=== PATIENT | male | born 1955 | race Caucasian/White ===

== ENCOUNTER 2016-08-31 14:29 | Inpatient (IN) | payer MEDICAID ==
[~2016-08-31] VITALS: Ht 185.4 cm; Wt 127.0 kg
[~2016-08-31 14:29] MED LIST: ASPI81TA3 PO; BUDE6HFA INHALATION; CHOL400T10 PO; CYAN100T PO; ESCI10TA PO; ETOMIDATE 20 MG INJ ONE; GUAI-637 PO; HYDR-3498 PO; LEVO50TA83 PO; METO25TA7 PO; NAPR-260 PO; Promethazine/Codeine Syp PO; ZOLP5TAB PO
[2016-08-31] MEDS ORDERED: ROCURONIUM 50 MG INJ IV STA (14:34)
[2016-08-31] MEDS ORDERED: PROPOFOL 100 ML IV STA (14:34)
[2016-08-31] MEDS ORDERED: SOD CHLORIDE 0.9% 1,000 ML IV STA ×3 (14:34)
[2016-08-31] MEDS ORDERED: ETOMIDATE 20 MG INJ IV STA (14:34)
[2016-08-31] MEDS ORDERED: CEFEPIME 2GM/50 ML (PMX) 50 ML IVPB STA (14:34)
[2016-08-31] MEDS ORDERED: HYDROmorphONE 1 MG/ML SYG IV ONE (15:00)
[2016-08-31] MEDS ORDERED: VANCOMYCIN 1 GM (PMX) 250 ML IVPB ONE (15:00)
[2016-08-31 15:13] LABS: ADD SCAN DIFF NO
[2016-08-31 15:19] LABS: ABNORMAL IP MESSAGE 1; HEMATOCRIT 34.1 % (42.0-52.0); HEMOGLOBIN 10.9 g/dl (14.0-18.0); MEAN PLATELET VOLUME 10.2 fl (7.4-10.4); PLATELET COUNT 81 10^3/UL (140-415); RED BLOOD COUNT 3.41 10^6/ul (4.70-6.10); RED CELL DISTRIBUTION WIDTH 14.9 % (11.5-14.5); WHITE BLOOD COUNT 3.7 10^3/ul (4.8-10.8)
--- NOTE | 2016-08-31 15:22 | RADRPT ---
PROCEDURE: Chest x-ray CLINICAL INDICATION: Shortness of breath TECHNIQUE: Chest single view COMPARISON: 02/17/2016 FINDINGS: There is endotracheal tube which terminates 3 cm above the brett. Heart is normal in size. The pu lmonary vessels are normal in caliber. There is persistent to dense area of opacification in the ri ght upper lung/right lung apex. This could represent loculated fluid, fibrosis with pleural thicken ing; however underlying mass in this region is not excluded. Lungs otherwise clear. There is volum e loss of the right lung with elevation right hemidiaphragm. The costophrenic angles are sharp. Bert ny thorax is unremarkable. IMPRESSION: 1. Interval placement of endotracheal tube which terminates 3 cm above the brett. 2. Persistent dense opacity in the right lung apex. This may represent pleural thickening, loculat ed pleural fluid, or underlying mass with postobstructive component. Consider chest CT for further evaluation. 3. No acute infiltrates RPTAT: HH .Bret Montemayor MD, MD Date Time Electronically viewed and signed by .Bret Montemayor MD, on 08/31/2016 15:21 .W/
[2016-08-31 15:26] LABS: INR 1.08; PT RATIO 1.1
[2016-08-31 15:27] LABS: PARTIAL THROMBOPLASTIN TIME 24.8 Sec (25.0-35.0)
[2016-08-31 15:30] LABS: ALBUMIN 3.8 g/dl (3.3-4.9); ALBUMIN/GLOBULIN RATIO 1.05; BILIRUBIN,INDIRECT 0.2 mg/dl (0-1.1); BILIRUBIN,TOTAL 0.2 mg/dl (0.2-1.3); CALCIUM 8.7 mg/dl (8.4-10.2); CREATININE 0.97 mg/dl (0.61-1.24); TOTAL PROTEIN 7.4 g/dl (6.1-8.1)
[2016-08-31] MEDS ORDERED: LIDOCAINE 1% (MDV) 20 ML INJ SC ONE ×2 (15:30→16:30)
[2016-08-31] MEDS: PANTOPRAZOLE 40 MG INJ IV SCH (15:38)
[2016-08-31 15:41] LABS: TROPONIN-I 0.011 ng/ml (0.00-0.12)
[2016-08-31 15:46] LABS: LYMPHOCYTES # 0.6 10^3/ul (0.8-2.9)
[2016-08-31 15:48] LABS: ANISOCYTOSIS 1+; HYPOCHROMASIA 1+; PLATELET ESTIMATE PLT APPEAR DECREASED
[2016-08-31] MEDS ORDERED: TRAZ50TA18 PO (15:50)
[2016-08-31] MEDS ORDERED: LEVO75TA5 PO (15:51)
[2016-08-31] MEDS ORDERED: ESCI10TA48 PO (15:51)
[2016-08-31] MEDS ORDERED: LEVO50TA74 PO (15:51)
[2016-08-31] MEDS ORDERED: ATOR20TA38 PO (15:52)
[2016-08-31] MEDS ORDERED: ESOM40CA PO (15:52)
[2016-08-31] MEDS ORDERED: DOCU100C26 PO (15:53)
[2016-08-31] MEDS ORDERED: SENN-53 PO (15:53)
[2016-08-31] MEDS ORDERED: ASPI-664 PO (15:54)
[2016-08-31] MEDS ORDERED: VORI200T9 PO (15:55)
[2016-08-31] MEDS ORDERED: METO-448 PO (15:55)
[2016-08-31] MEDS ORDERED: SOD CHLORIDE 0.9% 100 ML ONE (16:16)
[2016-08-31] MEDS ORDERED: IOHEXOL 100 ML ONE (16:16)
[2016-08-31] MEDS ORDERED: IOHEXOL 350MG/ML 50 ML BTL ONE (16:17)
[2016-08-31 16:22] LABS: ADD UMIC YES; URINE BILIRUBIN (Dip) NEGATIVE (NEGATIVE); URINE BLOOD (Dip) 1+ (NEGATIVE); URINE COLOR LT. YELLOW (YELLOW); URINE GLUCOSE (Dip) NEGATIVE (NEGATIVE); URINE KETONES (Dip) NEGATIVE (NEGATIVE); URINE LEUKOCYTE ESTERASE (Dip) NEGATIVE (NEGATIVE); URINE NITRITE (Dip) NEGATIVE (NEGATIVE); URINE TOTAL PROTEIN (Dip) NEGATIVE (NEGATIVE); URINE UROBILINOGEN (Dip) 0.2 E.U./dL (0.1-1.0)
[2016-08-31 16:32] LABS: BACTERIA,URINE FEW; URINE RBCS 0-2 /HPF (0)
--- NOTE | 2016-08-31 16:37 | ERA ---
ER Documentation Chief Complaint Date/Time DATE: 08/31/16 TIME: 16:33 Chief Complaint BIB RA FOR EVAL OF SOB. PT ON CPAP ON ARRIVAL. HPI Patient is a 60-year-old male with lung cancer who presents with shortness of breath. The patient was brought in by ambulance. He was 59% on room air at his chemotherapy infusion center. He was placed on CPAP therapy by paramedics but there was no improvement in his respiratory status. Please note the history and physical exam is limited secondary to the patient's shortness of breath and mental status at this time. ROS All systems reviewed and are negative except as per history of present illness. Medications Home Meds Reported Medications Metoprolol Tartrate* (Lopressor*) 25 Mg Tab, 25 MG PO BID, #60 TAB 08/31/16 Voriconazole* (Voriconazole*) 200 Mg Tablet, 200 MG PO BID, TAB 08/31/16 Aspirin* (Aspirin* EC) 81 Mg Tablet.dr, 81 MG PO DAILY, TAB 08/31/16 Docusate Sodium* (Doc-Q-Lace*) 100 Mg Capsule, 100 MG PO BID Y for CONSTIPATION , CAP 08/31/16 Sennosides* (Senna Lax*) 8.6 Mg Tablet, 1 TAB PO Q12H Y for CONSTIPATION, TAB 08/31/16 Esomeprazole Mag Trihydrate (Nexium) 40 Mg Capsule.dr, 40 MG PO DAILY, #30 CAP 08/31/16 Atorvastatin Calcium* (Atorvastatin Calcium*) 20 Mg Tablet, 20 MG PO QHS, #30 TAB 08/31/16 Levothyroxine Sodium* (Levothyroxine Sodium*) 75 Mcg Tablet, 75 MCG PO BEFORE BREAKFAST, #30 TAB 08/31/16 Levothyroxine Sodium* (Levothyroxine Sodium*) 50 Mcg Tablet, 50 MCG PO BEFORE BREAKFAST, #30 TAB 08/31/16 Escitalopram Oxalate* (Escitalopram Oxalate*) 10 Mg Tablet, 10 MG PO DAILY, #30 TAB 08/31/16 Trazodone Hcl* (Trazodone Hcl*) 50 Mg Tablet, 50 MG PO QHS, #30 TAB 08/31/16 Discontinued Reported Medications Guaifenesin* (Robitussin*) 100 Mg/5 Ml Syrup, 200 MG PO Q4H Y for COUGH, ML 02/17/16 Budesonide-Formoterol Fumarate* (Symbicort*) 160-4.5 Hfa.aer.ad, 2 PUFF INHALATION BID, #1 EACH 02/17/16 Cholecalciferol* (Vitamin D*) 400 Unit Tablet, 400 UNIT PO DAILY, TAB 02/17/16 Cyanocobalamin* (Vitamin B-12*) 100 Mcg Tablet, 100 MCG PO DAILY, TAB 02/17/16 Aspirin* (Aspirin* Chew) 81 Mg Tab.chew, 81 MG PO DAILY, TAB.CHEW 02/17/16 Metoprolol Succinate* (Toprol XL*) 25 Mg Tab.sr.24h, 25 MG PO DAILY, #30 TAB 02/17/16 Zolpidem Tartrate* (Ambien*) 5 Mg Tablet, 5 MG PO QHS Y for INSOMNIA, #30 TAB 02/17/16 Naproxen* (Naprosyn*) 500 Mg Tablet, 500 MG PO BID Y for PAIN AND/OR INFLAMMATION, TAB 02/17/16 Escitalopram Oxalate* (Lexapro*) 10 Mg Tablet, 10 MG PO DAILY, #30 TAB 02/17/16 Discontinued Scripts [Promethazine/Codeine Syp] 5 ML SYRUP No Conflict Check, 10 ML PO TID, #100 ML Prov:LUBA EARLY 02/23/16 Hydrocodone Bit-Acetaminophen (Hydrocodone Bit-APAP) 5-325MG Tablet, 1 TAB PO Q4H Y for PAIN LEVEL 4-7, #30 TAB Prov:LUBA EARLY 02/23/16 Levothyroxine Sodium* (Synthroid*) 50 Mcg Tablet, 50 MCG PO DAILY@06 for 30 Days , TAB Prov:LUBA EARLY 02/23/16 Allergies Allergies: Coded Allergies: No Known Allergy (Unverified , 08/31/16) PMhx/Soc History of Surgery: Yes (right midle finger partial amputation 1985, gallbladder removal 1996, nose ) Anesthesia Reaction: No Hx Neurological Disorder: No Hx Respiratory Disorders: Yes (lung ca, pna) Hx Cardiac Disorders: Yes (irregular heart beat.) Hx Psychiatric Problems: Yes (anxiety ) Hx Miscellaneous Medical Probl: No Hx Alcohol Use: No Hx Substance Use: No Hx Tobacco Use: Yes Smoking Status: Unknown if ever smoked FmHx Unable to obtain Physical Exam Vitals Vital Signs Date Time Temp Pulse Resp B/P Pulse Ox O2 Delivery O2 Flow Rate FiO2 08/31/16 16:21 78 20 108/80 100 Mechanical Ventilator 08/31/16 15:56 88 26 160/110 100 Mechanical Ventilator 08/31/16 15:11 91 20 179/123 100 Mechanical Ventilator 08/31/16 14:45 113 30 181/109 97 08/31/16 14:40 91 20 98 100 Physical Exam Const: Severe respiratory distress Head: Atraumatic Eyes: Normal Conjunctiva ENT: Normal External Ears, Nose and Mouth. Neck: Full range of motion..~ No meningismus. Resp: Decreased breath sounds bilaterally, tachypnea and accessory muscle use Cardio: Tachycardic rate without murmur Abd: Soft, non tender, non distended. Normal bowel sounds Skin: Diaphoresis Back: No midline or flank tenderness Ext: No cyanosis, or edema Neur: Awake but altered Result Diagram: 08/31/16 1500 08/31/16 1500 Results 24 hrs Laboratory Tests Test 08/31/16 15:00 08/31/16 15:50 White Blood Count 3.710^3/ul Red Blood Count 3.4110^6/ul Hemoglobin 10.9g/dl Hematocrit 34.1% Mean Corpuscular Volume 100.0fl Mean Corpuscular Hemoglobin 32.0pg Mean Corpuscular Hemoglobin Concent 32.0g/dl Red Cell Distribution Width 14.9% Platelet Count 8110^3/UL Mean Platelet Volume 10.2fl Neutrophils % 82.0% Band Neutrophils % 2.0% Lymphocytes % 16.0% Neutrophils # 3.010^3/ul Lymphocytes # 0.610^3/ul Platelet Estimate PLT APPEAR DECREASED Hypochromasia 1+ Anisocytosis 1+ Prothrombin Time 14.0Sec Prothrombin Time Ratio 1.1 INR International Normalized Ratio 1.08 Activated Partial Thromboplast Time 24.8Sec Sodium Level 140mmol/L Potassium Level 4.0mmol/L Chloride Level 104mmol/L Carbon Dioxide Level 24mmol/L Anion Gap 16 Blood Urea Nitrogen 16mg/dl Creatinine 0.97mg/dl Glucose Level 155mg/dl Lactic Acid Level 2.4mmol/L Calcium Level 8.7mg/dl Total Bilirubin 0.2mg/dl Direct Bilirubin 0.00mg/dl Indirect Bilirubin 0.2mg/dl Aspartate Amino Transf (AST/SGOT) 22IU/L Alanine Aminotransferase (ALT/SGPT) 21IU/L Alkaline Phosphatase 116IU/L Troponin I 0.011ng/ml Total Protein 7.4g/dl Albumin 3.8g/dl Globulin 3.60g/dl Albumin/Globulin Ratio 1.05 Urine Color LT. YELLOW Urine Clarity CLEAR Urine pH 6.0 Urine Specific [place] <=1.005 Urine Ketones NEGATIVE Urine Nitrite NEGATIVE Urine Bilirubin NEGATIVE Urine Urobilinogen 0.2 E.U./dL Urine Leukocyte Esterase NEGATIVE Urine Microscopic RBC 0-2/HPF Urine Microscopic WBC NONE SEEN/HPF Urine Epithelial Cells OCCASIONAL Urine Bacteria FEW Urine Hemoglobin 1+ Urine Glucose NEGATIVE% Urine Total Protein NEGATIVE Current Medications Medications (Trade) Dose Ordered Sig/Michael Route PRN Reason Start Time Stop Time Status Last Admin Dose Admin Cefepime HCl 50 ml @ 100 mls/hr ONCE STAT IVPB 08/31/16 14:34 08/31/16 15:03 DC 08/31/16 15:38 Vancomycin HCl 250 ml @ 125 mls/hr ONCE ONCE IVPB 08/31/16 15:00 08/31/16 16:59 Sodium Chloride (NS) 1,000 ml @ 1,000 mls/hr Q1H STAT IV 08/31/16 14:34 08/31/16 15:33 DC 08/31/16 15:01 Rocuronium [place] (Zemuron) 70 mg ONCE STAT IV 08/31/16 14:34 08/31/16 14:37 DC 08/31/16 15:02 Etomidate (Amidate) 20 mg ONCE STAT IV 08/31/16 14:34 08/31/16 14:37 DC 08/31/16 15:02 Hydromorphone HCl 1 mg 1 mg ONCE ONCE IV 08/31/16 15:00 08/31/16 15:01 DC Propofol 100 ml @ 0 mls/hr ONCE STAT IV 08/31/16 14:34 08/31/16 14:37 DC 08/31/16 15:00 Sodium Chloride 1,000 ml @ 1,000 mls/hr Q1H STAT IV 08/31/16 14:34 08/31/16 15:33 DC 08/31/16 15:34 Sodium Chloride (NS) 1,000 ml @ 1,000 mls/hr Q1H STAT IV 08/31/16 14:34 08/31/16 15:33 DC 08/31/16 15:34 Pantoprazole (Protonix Iv) 40 mg DAILY IV 08/31/16 15:00 08/31/16 15:38 Lidocaine (Xylocaine 1% (Mdv) 20 ml) 20 ml ONCE ONCE SC 08/31/16 15:30 08/31/16 15:31 DC Lidocaine (Xylocaine 1% (Mdv) 20 ml) 20 ml ONCE ONCE SC 08/31/16 16:30 08/31/16 16:31 DC IV Flush 10 ml 10 ml STK-MED ONCE .ROUTE 08/31/16 16:16 08/31/16 16:17 DC Sodium Chloride 100 ml @ ud STK-MED ONCE .ROUTE 08/31/16 16:16 08/31/16 16:17 DC Iohexol (Omnipaque) 100 ml @ ud STK-MED ONCE .ROUTE 08/31/16 16:16 08/31/16 16:17 DC Iohexol (Omnipaque 350mg/ ml) 50 ml STK-MED ONCE .ROUTE 08/31/16 16:17 08/31/16 16:18 DC Procedures/MDM EKG read by me: Rate/Rhythm: Sinus tachycardia Intervals: Normal Impression: Sinus tachycardia without evidence of ischemia Chest X-ray 1V Interpreted by me: Soft Tissue: No acute abnormalities Bones: No acute abnormalities Mediastinum/Cardiac Silhouette/Lungs: PNA Admit MDM: Patient's infectious symptoms have not stabilized and the patient is at risk of rapid decompensation. The patient will be admitted for careful hydration, antibiotic therapy, and infectious source control. Severe Sepsis criteria: Infectious source: Pneumonia End organ damage indicated by: Lactate greater than 2 Sepsis Management: Time of recognition of sepsis: 15:00 Within 3 hours of recognition: Blood cultures x 2 before broad-spectrum antibiotics: Yes 30 ml/kg NS bolus Completed Initial lactate 2.4 Repeat lactate pending Time of recognition of septic shock: 16:35 Septic Shock Assessment: Any lactic acid > 4.0 No Persistent hypotension (SBP < 90 or 40 mmHg drop, MAP < 65) despite 30 mL/kg IV fluid bolus No Volume Re-assessment for Septic Shock (post 30 ml/kg bolus): Temp 98.6, BP 108/80, HR 78, RR 20, Pox 100% on a ventilator Heart tachycardic rate Lungs No crackles Skin Warm & dry Cap Refill Less than 2 seconds Peripheral pulses Radially present Persistent Hypotension Treatment: Comfort care No Central line PICC line placed Vasopressor started norepinephrine I considered further perfusion assessment with CVP measurement, SCVO2, bedside ultrasound volume assessment, passive leg raise, trial of further fluid bolus. And proceeded with 30 ml/kg fluid bolus of NSS, broad spectrum antibiotics, and admission. Accepting Care Team Current data and ongoing care discussed. Admitting Physician: Dr. Lincoln is Dr. Scanlon is the patient's primary doctor and requested Dr. Lincoln Workforce Staffing Advisor(s): None Outstanding Data: Culture results and repeat lactic acid Critical Care: Critical care time 35 minutes excluding all billable procedures Emergent fluid management while maintaining close respiratory support. Provision of immediate and broad-spectrum antibiotic therapy. Simultaneous assessment for possible sources in order to direct targeted therapy. Consideration for invasive and chemical support to prevent cardiopulmonary collapse. Departure Diagnosis: Primary Impression: Respiratory failure Qualified Code: J96.00 - Acute respiratory failure, unspecified whether with hypoxia or hypercapnia Additional Impressions: Shortness of breath Severe sepsis Pneumonia Qualified Code: J18.9 - Pneumonia due to infectious organism, unspecified laterality, unspecified part of lung Condition: Critical SUNNY TSOCANO MD Aug 31, 2016 16:37
[2016-08-31] MEDS ORDERED: NORepinephrine 8MG/250 ML (PMX 250 ML IV STA (17:21)
--- NOTE | 2016-08-31 18:29 | RADRPT ---
PROCEDURE: XR Chest. CLINICAL INDICATION: Line placement TECHNIQUE: Single frontal chest x-ray. COMPARISON: 08/31/2016 FINDINGS: There is new left PICC line with tip at the level of the junction of SVC and right atrium. Endotrac heal tube tip is at the level of the aortic knob, above the brett. Heart is normal size. There is redemonstrated elevated right hemidiaphragm with increased basilar and perihilar consolidation. Th ere is unchanged right apical pleural fluid versus thickening. Left lung is clear. There is no pne umothorax. Degenerative changes of the thoracic spine are present. IMPRESSION: Left PICC line with tip at the junction of SVC and right atrium. Elevated right hemidiaphragm. Int erval increased right perihilar and basilar consolidation. Otherwise no change. RPTAT: HMVK .César Love MD, MD Date Time Electronically viewed and signed by .César Love MD, MD on 08/31/2016 18:29 .K/
[2016-08-31 19:14] LABS: AADO2 Arterial 139.2 mmHg (7.0-24.0); Arterial Base Excess 0.8 mmol/L (-3.0-3); Arterial COHb 0.2 % (0.0-3.0); Arterial Fraction of Oxyhgb 98.9 % (93.0-99.0); Arterial HCO3 24.9 mmol/L (22.0-26.0); Arterial MetHb 0.4 % (0.0-1.5); Arterial Total Hemglobin 10.5 g/dl (12.0-18.0); Blood Gas Mean Airway Pressure 13; MODE VENT - AC
--- NOTE | 2016-08-31 20:46 | RADRPT ---
PROCEDURE: CTA Chest. CLINICAL INDICATION: Cancer, chest , rule out pulmonary embolism. TECHNIQUE: Direct spiral 1.25 mm axial sections were obtained from the thoracic inlet to the upper abdomen with the use of 100 cc of Isovue 370 nonionic intravenous contrast material. Axial MIP, cor onal, and sagittal reformations were obtained. The images were reviewed on a PACS workstation. CTDIv ol: 12.68, 20.00 mGy. DLP: 724 point mGy-cm. One or more of the following dose reduction techniques were used: - Automated exposure control. - Adjustment of the mA and/or kV according to patient size. - Use of iterative reconstruction technique. COMPARISON: None. FINDINGS: No pulmonary embolism is identified, however evaluation for subsegmental emboli is limited by respir atory motion. The main pulmonary artery is normal in caliber. There is no aortic aneurysm. The hear t is normal in size. There is no pericardial effusion. There is rightward shift of mediastinum. A l eft upper extremity PICC terminates at the superior cavoatrial junction. An endotracheal tube terminates in the thoracic trachea. The right middle lobe bronchus is partially occluded. There is extensive right lower lobe consolidation and cavitation. The right middle lobe is also completely consolidated. Perihilar consolidation is noted in the right lower lobe. There ar e atelectatic changes in the posterior right lower lobe. Mild atelectatic changes are also noted in the left lower lobe. There is no pleural effusion or pneumothorax. No suspicious thyroid lesion is seen. Confluent soft tissue density is seen around the distal trach ea and proximal mainstem bronchi, likely metastatic lymphadenopathy. The patient is status post cholecystectomy. There is no suspicious osseous lesion. IMPRESSION: 1. No pulmonary embolism is identified, however evaluation for subsegmental emboli is limited by res piratory motion. 2. Extensive right lung consolidation with right upper lobe cavitation and rightward shift of the m ediastinum, likely representing the patient's known lung cancer. 3. Partial occlusion of the right middle lobe bronchus, possibly due to neoplasm or secretions. 4. Confluent soft tissue density around the distal trachea and proximal mainstem bronchi, likely me tastatic lymphadenopathy. RPTAT: HTAR .Adilson Lawton MD, MD Date Time Electronically viewed and signed by .Adilson Lawton MD, MD on 08/31/2016 20:46 .R/
[2016-08-31] MEDS ORDERED: PROPOFOL 100 ML ONE (23:04)
[2016-09-01] VITALS (17 sets, daily range): BP systolic 102–149; BP diastolic 69–107; PULSE 71–79; RESP 11–20; TEMP 98.3; Ht 185.4 cm; Wt 127.0 kg
[2016-09-01] MEDS ORDERED: PROPOFOL 100 ML ONE ×7 (02:14→19:18)
[2016-09-01 06:00] LABS: ADD SCAN DIFF NO
[2016-09-01 06:18] LABS: ABNORMAL IP MESSAGE 1; HEMOGLOBIN 9.9 g/dl (14.0-18.0); LYMPHOCYTES # 0.4 10^3/ul (0.8-2.9); LYMPHOCYTES % 9.7 % (15.0-51.0); MEAN CORPUSCULAR HEMOGLOBIN 30.8 pg (29.0-33.0); MEAN CORPUSCULAR HGB CONC 30.9 g/dl (32.0-37.0); MEAN CORPUSCULAR VOLUME 99.7 fl (82.0-101.0); MEAN PLATELET VOLUME 11.2 fl (7.4-10.4); MONOCYTE # 0.1 10^3/ul (0.3-0.9); MONOCYTES % 2.5 % (0.0-11.0); NEUTROPHIL # 3.8 10^3/ul (1.6-7.5); NEUTROPHILS % 87.6 % (39.0-77.0); PLATELET COUNT 65 10^3/UL (140-415); RED BLOOD COUNT 3.21 10^6/ul (4.70-6.10); RED CELL DISTRIBUTION WIDTH 14.9 % (11.5-14.5); WHITE BLOOD COUNT 4.4 10^3/ul (4.8-10.8)
[2016-09-01 06:42] LABS: POTASSIUM 4.2 mmol/L (3.5-5.1)
[2016-09-01 06:44] LABS: CREATININE 0.83 mg/dl (0.61-1.24)
[2016-09-01 06:45] LABS: CALCIUM 8.6 mg/dl (8.4-10.2)
--- NOTE | 2016-09-01 07:08 | HP ---
Date/Time of Note Date/Time of Note DATE: 09/01/16 TIME: 06:55 Assessment/Plan VTE Prophylaxis VTE Prophylaxis Intervention: SCD's Lines/Catheters IV [facility]ter Type (from [facility] PICC Line Urinary Cath still in place: Yes Assessment/Plan Assessment/Plan Acute respiratory failure, unspecified whether with hypoxia or hypercapnia - sp intubation - admit to icu - pulmonary consult- Dr Soares notified - will resume po meds when stable for po Shortness of breath- sec to above-none at present Severe sepsis- Vanco, cefepime - fu c/s Pneumonia Hx Lung cancer - ncology consult- Dr Hollingsworth notified. dw dr Lincoln HPI/ROS Admit Date/Time Admit Date/Time Hx of Present Illness BIB RA FOR EVAL OF SOB. PT ON CPAP ON ARRIVAL. HPI- atient seen at 1900 08/31/16 Patient is a 60-year-old male with lung cancer who presents with shortness of breath. The patient was brought in by ambulance. He was 59% on room air at his chemotherapy infusion center. He was placed on CPAP therapy by paramedics but there was no improvement in his respiratory status. Please note the history and physical exam is limited secondary to the patient's shortness of breath and mental status at this time. ROS All systems reviewed and are negative except as per history of present illness. Medications Home Meds Reported Medications Metoprolol Tartrate* (Lopressor*) 25 Mg Tab, 25 MG PO BID, #60 TAB 08/31/16 Voriconazole* (Voriconazole*) 200 Mg Tablet, 200 MG PO BID, TAB 08/31/16 Aspirin* (Aspirin* EC) 81 Mg Tablet.dr, 81 MG PO DAILY, TAB 08/31/16 Docusate Sodium* (Doc-Q-Lace*) 100 Mg Capsule, 100 MG PO BID Y for CONSTIPATION , CAP 08/31/16 Sennosides* (Senna Lax*) 8.6 Mg Tablet, 1 TAB PO Q12H Y for CONSTIPATION, TAB 08/31/16 Esomeprazole Mag Trihydrate (Nexium) 40 Mg Capsule.dr, 40 MG PO DAILY, #30 CAP 08/31/16 Atorvastatin Calcium* (Atorvastatin Calcium*) 20 Mg Tablet, 20 MG PO QHS, #30 TAB 08/31/16 Levothyroxine Sodium* (Levothyroxine Sodium*) 75 Mcg Tablet, 75 MCG PO BEFORE BREAKFAST, #30 TAB 08/31/16 Levothyroxine Sodium* (Levothyroxine Sodium*) 50 Mcg Tablet, 50 MCG PO BEFORE BREAKFAST, #30 TAB 08/31/16 Escitalopram Oxalate* (Escitalopram Oxalate*) 10 Mg Tablet, 10 MG PO DAILY, #30 TAB 08/31/16 Trazodone Hcl* (Trazodone Hcl*) 50 Mg Tablet, 50 MG PO QHS, #30 TAB 08/31/16 Discontinued Reported Medications Guaifenesin* (Robitussin*) 100 Mg/5 Ml Syrup, 200 MG PO Q4H Y for COUGH, ML 02/17/16 Budesonide-Formoterol Fumarate* (Symbicort*) 160-4.5 Hfa.aer.ad, 2 PUFF INHALATION BID, #1 EACH 02/17/16 Cholecalciferol* (Vitamin D*) 400 Unit Tablet, 400 UNIT PO DAILY, TAB 02/17/16 Cyanocobalamin* (Vitamin B-12*) 100 Mcg Tablet, 100 MCG PO DAILY, TAB 02/17/16 Aspirin* (Aspirin* Chew) 81 Mg Tab.chew, 81 MG PO DAILY, TAB.CHEW 02/17/16 Metoprolol Succinate* (Toprol XL*) 25 Mg Tab.sr.24h, 25 MG PO DAILY, #30 TAB 02/17/16 Zolpidem Tartrate* (Ambien*) 5 Mg Tablet, 5 MG PO QHS Y for INSOMNIA, #30 TAB 02/17/16 Naproxen* (Naprosyn*) 500 Mg Tablet, 500 MG PO BID Y for PAIN AND/OR INFLAMMATION, TAB 02/17/16 Escitalopram Oxalate* (Lexapro*) 10 Mg Tablet, 10 MG PO DAILY, #30 TAB 02/17/16 Discontinued Scripts [Promethazine/Codeine Syp] 5 ML SYRUP No Conflict Check, 10 ML PO TID, #100 ML Prov:LUBA EARLY 02/23/16 Hydrocodone Bit-Acetaminophen (Hydrocodone Bit-APAP) 5-325MG Tablet, 1 TAB PO Q4H Y for PAIN LEVEL 4-7, #30 TAB Prov:LUBA EARLY 02/23/16 Levothyroxine Sodium* (Synthroid*) 50 Mcg Tablet, 50 MCG PO DAILY@06 for 30 Days , TAB Prov:LUBA EARLY 02/23/16 Allergies Allergies: Coded Allergies: No Known Allergy (Unverified , 08/31/16) ROS Subjective hx not possible: pt non-verbal, other (needs IVF/O2 ) PMH/Family/Social Past Medical History PMhx/Soc History of Surgery: Yes (right midle finger partial amputation 1985, gallbladder removal 1996, nose ) Anesthesia Reaction: No Hx Neurological Disorder: No Hx Respiratory Disorders: Yes (lung ca, pna) Hx Cardiac Disorders: Yes (irregular heart beat.) Hx Psychiatric Problems: Yes (anxiety ) Hx Miscellaneous Medical Probl: No Hx Alcohol Use: No Hx Substance Use: No Hx Tobacco Use: Yes Smoking Status: Unknown if ever smoked FmHx Unable to obtain Social History Smoking Status: Unknown if ever smoked Exam/Review of Systems Vital Signs Vitals Vital Signs Date Time Temp Pulse Resp B/P Pulse Ox O2 Delivery O2 Flow Rate FiO2 09/01/16 06:23 20 129/90 98 Mechanical Ventilator 09/01/16 05:50 70 09/01/16 05:10 30 09/01/16 03:00 97.8 Intake and Output 08/31/16 08/31/16 09/01/16 15:00 23:00 07:00 Intake Total 2300 ml Output Total 2500 ml Balance 2300 ml -2500 ml Exam Constitutional: frail, well developed Eyes: nl sclera ENMT: nl external ears & nose Neck: non-tender Respiratory: diminished breath sounds Cardiovascular: nl pulses Gastrointestinal: non-tender, other (obese), soft Musculoskeletal: nl extremities to inspection Extremities: normal pulses Neurological: lethargic, unresponsive Skin: other Lymph: nontender Labs Result Diagram: 09/01/16 0525 08/31/16 1500 Medications Medications Current Medications Pantoprazole (Protonix Iv) 40 mg DAILY IV Last administered on 08/31/16t 15:38; Admin Dose 40 MG; Start 08/31/16 at 15:00 IV Flush (NS 10 ml) 10 ml PRN PRN IV IV PROTOCOL; Start 08/31/16 at 18:30 Procedures Procedures EKG : Rate/Rhythm: Sinus tachycardia Intervals: Normal Impression: Sinus tachycardia without evidence of ischemia Chest X-ray : Soft Tissue: No acute abnormalities Bones: No acute abnormalities Mediastinum/Cardiac Silhouette/Lungs: TRAMAINE LEROY Sep 01, 2016 07:07
[2016-09-01] MEDS ORDERED: VANCOMYCIN IV PER PHARMACY XX SCH (07:30)
[2016-09-01] MEDS ORDERED: VANCOMYCIN 2 GM in SOD CHLORIDE 0.9% 500 ML IVPB SCH (09:00)
[2016-09-01] MEDS ORDERED: CEFEPIME 2GM/50 ML (PMX) 50 ML IVPB SCH (09:00)
[2016-09-01] MEDS: PANTOPRAZOLE 40 MG INJ IV SCH (10:16)
--- NOTE | 2016-09-01 10:16 | CONS ---
Date/Time of Note Date/Time of Note DATE: 09/01/16 TIME: 10:04 Assessment/Plan Assessment/Plan Chief Complaint/Hosp Course assessment/impression - severe sepsis due to pneumonia/bronchitis Problems: Consultation Date/Type/Reason Admit Date/Time 08/31/2016 Date of Consultation: Sep 01, 2016 Type of Consultation: ID Reason for Consultation severe sepsis from pneumonia/bronchitis Referring Provider: TRAMAINE BURGOS Hx of Present Illness This is a 66 yo male with non-small cell lung cancer who is undergoing IV chemotherapy infusion every two weeks by Dr. Scanlon x2 years. I got his HPI from Pt's by bedside. Last year, Pt had a mild bronchitis and took an oral antibiotic for a little less than a week. In 03/2017, Pt developed severe bronchitis and pneumonia. He was admitted at [facility]. According to Pt's , Pt was in an isolation room, requiring a mask and gown, and submitted multiple samples of sputum. She said that tuberculosis was ruled out by sputum and "blood test." He had bronchoscopy, and was eventually diagnosed with "fungus" pneumonia. Pt's does not recall its name. As a result, Pt has been taking voriconazole 100mg PO bid since the beginning of 04/2017. Several days before the current presentation, Pt developed cough, productive of yellow and green sputum. No hemoptysis. The cough appeared to improve during the last 48hrs. However, Pt became acutely hypoxic at the chemotherapy infusion yesterday. He was placed on CPAP en route to ER but eventually required intubation. Pt was born in [facility] and came to [facility] >30 years ago. He does not smoke or drink. He did not have a known sick contact. Pt's said he had a vaccination but does not recall if it was influenza or pneumonia vaccine. ELIAZAR Burgos requested ID consultation on this Pt. Subjective hx not possible: pt non-verbal, pt critical, pt critical status Past Medical History Medical History: cancer, coronary artery disease, deep vein thrombosis, high cholesterol, hypertension, hypothyroid, urinary tract infection, other (anemia, A fib, 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) Social History Alcohol Use: none Smoking Status: Unknown if ever smoked Drug Use: none Exam/Review of Systems Vital Signs Vitals Vital Signs Date Time Temp Pulse Resp B/P Pulse Ox O2 Delivery O2 Flow Rate FiO2 4/7/17 09:37 74 16 118/61 Mechanical Ventilator 09/01/16 07:55 97 30 09/01/16 03:00 97.8 Intake and Output 08/31/16 08/31/16 09/01/16 15:00 23:00 07:00 Intake Total 2300 ml Output Total 2500 ml Balance 2300 ml -2500 ml Exam Constitutional: non-verbal Head: atraumatic, normocephalic Eyes: nl conjunctiva, nl lids ENMT: intubated, nl external ears & nose Respiratory: crackles/rales Cardiovascular: nl pulses, regular rate and rhythm Gastrointestinal: soft Musculoskeletal: nl extremities to inspection Extremities: normal pulses Neurological: unresponsive Skin: nl turgor Results Result Diagram: 09/01/16 0525 09/01/16 0520 Results 24 hrs Laboratory Tests Test 08/31/16 14:34 08/31/16 15:00 08/31/16 15:50 08/31/16 16:25 Blood Gas Specimen Source Blood arterial Arterial Blood Date Drawn 08/31/2016 7:05:05 PM Arterial Blood pH (Temp corrected) 7.436 Arterial Blood pCO2 (Temp correct) 37.9 Arterial Blood pO2 (Temp corrected) 535.9 H Arterial Blood HCO3 24.9 Arterial Blood Base Excess 0.8 Arterial Blood Oxygen Saturation 99.5 H Jose Alfredo Test N/A Arterial Blood Gas Puncture Site LB Arterial Blood Carboxyhemoglobin 0.2 Arterial Blood Methemoglobin 0.4 Blood Gas A-a O2 Differential 139.2 H Oxyhemoglobin Percent 98.9 Total Hemoglobin 10.5 L Blood Gas Temperature 37.0 Blood Gas Respiration Rate 20.0 Blood Gas Actual Respiration Rate 20 Blood Gas Modality VENT - AC FiO2 100.0 Blood Gas Tidal Volume 500.0 Blood Gas Mean Airway Pressure 13 Blood Gas Low PEEP Setting 5.0 Blood Gas Inspiratory Pressure 31.0 Blood Gas Critical Value Read Back Bertha QUINTEROS Blood Gas Notified Whom BL Blood Gas Notified Time 08/31/2016 7:14:26 PM White Blood Count 3.7 #L Red Blood Count 3.41 #L Hemoglobin 10.9 #L Hematocrit 34.1 #L Mean Corpuscular Volume 100.0 Mean Corpuscular Hemoglobin 32.0 Mean Corpuscular Hemoglobin Concent 32.0 Red Cell Distribution Width 14.9 H Platelet Count 81 L Mean Platelet Volume 10.2 # Neutrophils % 82.0 H Band Neutrophils % 2.0 Lymphocytes % 16.0 Neutrophils # 3.0 Lymphocytes # 0.6 L Platelet Estimate PLT APPEAR DECREASED Hypochromasia 1+ Anisocytosis 1+ Prothrombin Time 14.0 Prothrombin Time Ratio 1.1 INR International Normalized Ratio 1.08 Activated Partial Thromboplast Time 24.8 L Sodium Level 140 Potassium Level 4.0 Chloride Level 104 Carbon Dioxide Level 24 Anion Gap 16 Blood Urea Nitrogen 16 Creatinine 0.97 Glucose Level 155 Lactic Acid Level 2.4 H 1.4 Calcium Level 8.7 Total Bilirubin 0.2 Direct Bilirubin 0.00 Indirect Bilirubin 0.2 Aspartate Amino Transf (AST/SGOT) 22 Alanine Aminotransferase (ALT/SGPT) 21 Alkaline Phosphatase 116 Troponin I 0.011 Total Protein 7.4 Albumin 3.8 Globulin 3.60 H Albumin/Globulin Ratio 1.05 Urine Color LT. YELLOW Urine Clarity CLEAR Urine pH 6.0 Urine Specific [place] <=1.005 L Urine Ketones NEGATIVE Urine Nitrite NEGATIVE Urine Bilirubin NEGATIVE Urine Urobilinogen 0.2 E.U./dL Urine Leukocyte Esterase NEGATIVE Urine Microscopic RBC 0-2 Urine Microscopic WBC NONE SEEN Urine Epithelial Cells OCCASIONAL Urine Bacteria FEW Urine Hemoglobin 1+ H Urine Glucose NEGATIVE Urine Total Protein NEGATIVE Test 08/31/16 18:39 09/01/16 05:20 09/01/16 05:25 Lactic Acid Level 1.0 Sodium Level 141 Potassium Level 4.2 Chloride Level 105 Carbon Dioxide Level 26 Anion Gap 14 Blood Urea Nitrogen 16 Creatinine 0.83 Glucose Level 124 Calcium Level 8.6 White Blood Count 4.4 L Red Blood Count 3.21 L Hemoglobin 9.9 L Hematocrit 32.0 L Mean Corpuscular Volume 99.7 Mean Corpuscular Hemoglobin 30.8 Mean Corpuscular Hemoglobin Concent 30.9 L Red Cell Distribution Width 14.9 H Platelet Count 65 L Mean Platelet Volume 11.2 H Neutrophils % 87.6 H Lymphocytes % 9.7 L Monocytes % 2.5 Eosinophils % 0.0 Basophils % 0.0 Nucleated Red Blood Cells % 0.0 Neutrophils # 3.8 Lymphocytes # 0.4 L Monocytes # 0.1 L Eosinophils # 0.0 Basophils # 0.0 Nucleated Red Blood Cells # 0.0 Medications Medications Current Medications Pantoprazole (Protonix Iv) 40 mg DAILY IV Last administered on 08/31/16t 15:38; Admin Dose 40 MG; Start 08/31/16 at 15:00 IV Flush 10 ml 10 ml PRN PRN IV IV PROTOCOL; Start 08/31/16 at 18:30 Cefepime HCl 50 ml @ 100 mls/hr BID IVPB ; Start 09/01/16 at 09:00 Vancomycin HCl 2 gm/Sodium Chloride 500 ml @ 125 mls/hr ONCE IVPB ; Start at 09:00; Stop 09/01/16 at 12:59 Vancomycin HCl/ Sodium Chloride (Vancocin/NS) 250 ml @ 83.333 mls/ hr Q12H IVPB ; Start 09/01/16 at 21:00 LUKE CAAL M.D. Sep 01, 2016 10:14
--- NOTE | 2016-09-01 10:27 | CONS ---
Date/Time of Note Date/Time of Note DATE: 09/01/16 TIME: 10:16 Assessment/Plan Assessment/Plan Chief Complaint/Hosp Course assessment/impression - severe sepsis due to pneumonia/bronchitis - severe pneumonia/bronchitis in the setting of advanced non-small cell lung CA : a variety of possible pathogens because Pt is immunocompromised - pancytopenia due to chemotherapy infusion - advanced non-small cell lung CA, on biweekly chemotherapy infusion x2 years - h/o fungal pneumonia diagnosed in 03/2016 (exact fungi to be identified by his medical records from [facility]), on maintenance voriconazole - h/o post-obstructive pneumonia - h/o HTN, CAD, hyperlipidemia - h/o paroxysmal A fib - h/o DVT in LUE - h/o hypothyroidism recommendations - sent and results are pending: blood an urine cultures - I ordered: influenza A and B by EIA, respiratory panel by NAAT, mycoplasma by NAAT, respiratory culture, procalcitonin, legionella antigen, 1,2-qomm-G-glucan , cocci serology, crypto antigen, aspergillus antigen and antibody, Q TB gold. HIV was tested negative in 2013. - I will request records from [facility]. I need to confirm that AFB x3 were indeed collected to r/o TB - I left a message at Dr. Scanlon in order to get more infectious disease history on him too - I recommend: IV vancomycin, meropenem, levofloxacin. - resume voriconazole. Pt's says that she takes 100 mg bid instead of bid at home. I will confirm this once I get medical records from [facility] - I recommend droplet precautions until respiratory viruses are ruled out by NAAT management d/w Pt's and RN the critical care time I took to care for this Pt today was from 0940 to 1020 Problems: Consultation Date/Type/Reason Admit Date/Time 08/31/2016 Date of Consultation: Sep 01, 2016 Type of Consultation: ID Reason for Consultation severe sepsis due to pneumonia/bronchitis Hx of Present Illness This is a 66 yo male with non-small cell lung cancer who is undergoing IV chemotherapy infusion every two weeks [address] Dr. Scanlon x2 years. I got his HPI from Pt's by bedside. Last year, Pt had a mild bronchitis and took an oral antibiotic for a little less than a week. In 03/2017, Pt developed severe bronchitis and pneumonia. He was admitted at [facility]. According to Pt's , Pt was in an isolation room, requiring a mask and gown, and submitted multiple samples of sputum. She said that tuberculosis was ruled out by sputum and "blood test." He had bronchoscopy, and was eventually diagnosed with "fungus" pneumonia. Pt's does not recall its name. As a result, Pt has been taking voriconazole 100mg PO bid since the beginning of 04/2017. Several days before the current presentation, Pt developed cough, productive of yellow and green sputum. No hemoptysis. The cough appeared to improve during the last 48hrs. However, Pt became acutely hypoxic at the chemotherapy infusion yesterday. He was placed on CPAP en route to ER but eventually required intubation. Pt was born in [place] and came to [place] >30 years ago. He does not smoke or drink. He did not have a known sick contact. Pt's said he had a vaccination but does not recall if it was influenza or pneumonia vaccine. ELIAZAR Burgos requested ID consultation on this Pt. Subjective hx not possible: pt non-verbal, pt critical, pt critical status Past Medical History Medical History: cancer, coronary artery disease, deep vein thrombosis, high cholesterol, hypertension, hypothyroid, urinary tract infection, other (anemia, A fib, 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) Social History Alcohol Use: none Smoking Status: Unknown if ever smoked Drug Use: none Exam/Review of Systems Vital Signs Vitals Vital Signs Date Time Temp Pulse Resp B/P Pulse Ox O2 Delivery O2 Flow Rate FiO2 09/01/16 09:37 74 16 118/61 Mechanical Ventilator 09/01/16 07:55 97 30 09/01/16 03:00 97.8 Intake and Output 08/31/16 08/31/16 09/01/16 15:00 23:00 07:00 Intake Total 2300 ml Output Total 2500 ml Balance 2300 ml -2500 ml Exam Constitutional: non-verbal Head: atraumatic, normocephalic Eyes: nl conjunctiva, nl lids ENMT: intubated, nl external ears & nose Respiratory: crackles/rales Cardiovascular: nl pulses, regular rate and rhythm Gastrointestinal: non-tender, soft Extremities: No edema Neurological: unresponsive Skin: nl turgor Results Result Diagram: 09/01/16 0525 09/01/16 0520 Results 24 hrs Laboratory Tests Test 08/31/16 14:34 08/31/16 15:00 08/31/16 15:50 08/31/16 16:25 Blood Gas Specimen Source Blood arterial Arterial Blood Date Drawn 08/31/2016 7:05:05 PM Arterial Blood pH (Temp corrected) 7.436 Arterial Blood pCO2 (Temp correct) 37.9 Arterial Blood pO2 (Temp corrected) 535.9 H Arterial Blood HCO3 24.9 Arterial Blood Base Excess 0.8 Arterial Blood Oxygen Saturation 99.5 H Jose Alfredo Test N/A Arterial Blood Gas Puncture Site LB Arterial Blood Carboxyhemoglobin 0.2 Arterial Blood Methemoglobin 0.4 Blood Gas A-a O2 Differential 139.2 H Oxyhemoglobin Percent 98.9 Total Hemoglobin 10.5 L Blood Gas Temperature 37.0 Blood Gas Respiration Rate 20.0 Blood Gas Actual Respiration Rate 20 Blood Gas Modality VENT - AC FiO2 100.0 Blood Gas Tidal Volume 500.0 Blood Gas Mean Airway Pressure 13 Blood Gas Low PEEP Setting 5.0 Blood Gas Inspiratory Pressure 31.0 Blood Gas Critical Value Read Back Bertha QUINTEROS Blood Gas Notified Whom BL Blood Gas Notified Time 08/31/2016 7:14:26 PM White Blood Count 3.7 #L Red Blood Count 3.41 #L Hemoglobin 10.9 #L Hematocrit 34.1 #L Mean Corpuscular Volume 100.0 Mean Corpuscular Hemoglobin 32.0 Mean Corpuscular Hemoglobin Concent 32.0 Red Cell Distribution Width 14.9 H Platelet Count 81 L Mean Platelet Volume 10.2 # Neutrophils % 82.0 H Band Neutrophils % 2.0 Lymphocytes % 16.0 Neutrophils # 3.0 Lymphocytes # 0.6 L Platelet Estimate PLT APPEAR DECREASED Hypochromasia 1+ Anisocytosis 1+ Prothrombin Time 14.0 Prothrombin Time Ratio 1.1 INR International Normalized Ratio 1.08 Activated Partial Thromboplast Time 24.8 L Sodium Level 140 Potassium Level 4.0 Chloride Level 104 Carbon Dioxide Level 24 Anion Gap 16 Blood Urea Nitrogen 16 Creatinine 0.97 Glucose Level 155 Lactic Acid Level 2.4 H 1.4 Calcium Level 8.7 Total Bilirubin 0.2 Direct Bilirubin 0.00 Indirect Bilirubin 0.2 Aspartate Amino Transf (AST/SGOT) 22 Alanine Aminotransferase (ALT/SGPT) 21 Alkaline Phosphatase 116 Troponin I 0.011 Total Protein 7.4 Albumin 3.8 Globulin 3.60 H Albumin/Globulin Ratio 1.05 Urine Color LT. YELLOW Urine Clarity CLEAR Urine pH 6.0 Urine Specific [place] <=1.005 L Urine Ketones NEGATIVE Urine Nitrite NEGATIVE Urine Bilirubin NEGATIVE Urine Urobilinogen 0.2 E.U./dL Urine Leukocyte Esterase NEGATIVE Urine Microscopic RBC 0-2 Urine Microscopic WBC NONE SEEN Urine Epithelial Cells OCCASIONAL Urine Bacteria FEW Urine Hemoglobin 1+ H Urine Glucose NEGATIVE Urine Total Protein NEGATIVE Test 08/31/16 18:39 09/01/16 05:20 09/01/16 05:25 Lactic Acid Level 1.0 Sodium Level 141 Potassium Level 4.2 Chloride Level 105 Carbon Dioxide Level 26 Anion Gap 14 Blood Urea Nitrogen 16 Creatinine 0.83 Glucose Level 124 Calcium Level 8.6 White Blood Count 4.4 L Red Blood Count 3.21 L Hemoglobin 9.9 L Hematocrit 32.0 L Mean Corpuscular Volume 99.7 Mean Corpuscular Hemoglobin 30.8 Mean Corpuscular Hemoglobin Concent 30.9 L Red Cell Distribution Width 14.9 H Platelet Count 65 L Mean Platelet Volume 11.2 H Neutrophils % 87.6 H Lymphocytes % 9.7 L Monocytes % 2.5 Eosinophils % 0.0 Basophils % 0.0 Nucleated Red Blood Cells % 0.0 Neutrophils # 3.8 Lymphocytes # 0.4 L Monocytes # 0.1 L Eosinophils # 0.0 Basophils # 0.0 Nucleated Red Blood Cells # 0.0 Medications Medications Current Medications Pantoprazole (Protonix Iv) 40 mg DAILY IV Last administered on 08/31/16t 15:38; Admin Dose 40 MG; Start 08/31/16 at 15:00 IV Flush 10 ml 10 ml PRN PRN IV IV PROTOCOL; Start 08/31/16 at 18:30 Cefepime HCl 50 ml @ 100 mls/hr BID IVPB ; Start 09/01/16 at 09:00 Vancomycin HCl 2 gm/Sodium Chloride 500 ml @ 125 mls/hr ONCE IVPB ; Start at 09:00; Stop 09/01/16 at 12:59 Vancomycin HCl/ Sodium Chloride (Vancocin/NS) 250 ml @ 83.333 mls/ hr Q12H IVPB ; Start 09/01/16 at 21:00 LUKE CAAL M.D. Sep 01, 2016 10:27
[2016-09-01] MEDS ORDERED: LEVOFLOXACIN 500MG/D5W (PMX) 100 ML IVPB ONE (10:30)
--- NOTE | 2016-09-01 10:50 | RADRPT ---
PROCEDURE: US guidance for PICC line CLINICAL INDICATION: PICC line placement TECHNIQUE: Multiple real-time images were acquired of the patient's arm utilizing a high resolutio n transducer. This was performed by the PICC line nurse for venous access. COMPARISON: None FINDINGS: Ultrasound guidance for PICC line placement. IMPRESSION: Ultrasound guidance for PICC line placement. RPTAT: AA .Maury Mitchell MD, MD Date Time Electronically viewed and signed by .Maury Mitchell MD, on 09/01/2016 10:50 .S/
--- NOTE | 2016-09-01 16:36 | CONS ---
DATE OF ADMISSION: 09/01/2016 DATE OF CONSULTATION: 09/01/2016 TYPE OF CONSULTATION: Pulmonary. REASON FOR CONSULTATION: Respiratory failure. Thank you, Dr. Scanlon, for this consultation. HISTORY OF PRESENT ILLNESS: This is a 60-year-old gentleman with history of nonsmall cell lung can er. Currently receiving chemotherapy by Dr. Rimma Scanlon who was receiving chemotherapy in the [facility] several days ago and suddenly became hypoxemic with significant respiratory distress a nd brought to the emergency room for further evaluation. Here, she was found to be profoundly hypox emic and requiring emergent intubation and subsequent mechanical ventilation. The patient since alo t time has remained on mechanical ventilation, appears comfortable at rest. PAST MEDICAL HISTORY: 1. Inoperable lung cancer. 2. History of hypertension. 3. Hyperlipidemia. 4. History of tobacco use. 5. Hypothyroidism. MEDICATIONS: Per chart. ALLERGIES: NONE. SOCIAL HISTORY: Ex-smoker, no alcohol, no history of drug use. FAMILY HISTORY: Unknown. SYSTEMS REVIEW: A 12-point review of systems currently unable to perform. PHYSICAL EXAMINATION: GENERAL: Elderly-appearing gentleman, appears comfortable at rest, no acute distress. VITAL SIGNS: Currently afebrile, pulse is 70, blood pressure 112/83, O2 saturation 96% on FIO2 of 3 0%, orally intubated. HEENT: Dry mucous membranes. Pupils equal and reactive to light. CARDIAC: S1, S2, no added sounds or murmurs. CHEST: Diminished air entry bilaterally. ABDOMEN: Soft, nontender. No guarding or rebound. EXTREMITIES: No cyanosis, clubbing, edema. NEUROLOGIC: Generalized weakness; however, he is intubated and sedated. DIAGNOSTIC DATA: CT angiogram showed no evidence of pulmonary embolism; however, extensive right steffi ng consolidation with mediastinal shift consistent with prior lung cancer. LABORATORY DATA: White count 4.4, hemoglobin 9.9, platelets of 65. BUN 16, creatinine 0.83. INR 1 .08. ABG yesterday pH 7.43, pCO2 of 37, PaO2 of 535. IMPRESSION AND PLAN: 1. Hypoxemic respiratory failure, possibly secondary to a reaction to chemotherapy. 2. Evidence of significant metastatic lung disease on chest x-ray. 3. History of coronary artery disease. 4. History of chronic obstructive pulmonary disease PLAN: 1. Continue broad-spectrum antibiotics, currently on Voriconazole, meropenem and vancomycin. 2. IV fluids. 3. CPAP weaning trial. 4. Deep venous thrombosis and gastrointestinal prophylaxis. Dictated By: ABIODUN OROZCO/BLANCA Conf#: [id number] DID#: [id number]
[2016-09-01] MEDS: MEROPENEM 1 GM/100 ML (PMX) 100 ML IVPB SCH ×2 (16:41→23:52)
--- NOTE | 2016-09-01 17:09 | PN ---
Date/Time of Note Date/Time of Note DATE: 09/01/16 TIME: 17:06 Assessment/Plan VTE Prophylaxis VTE Prophylaxis Intervention: SCD's Lines/Catheters IV Catheter Type (from Nrs): PICC Line Central line still needed: Yes Urinary Cath still in place: Yes Reason Cath still needed: urinary retention Assessment/Plan Assessment/Plan - Severe sepsis due to pneumonia/bronchitis - Advanced non-small cell lung CA, s/p chemo - Pancytopenia due to chemotherapy - advanced non-small cell lung CA, on biweekly chemotherapy infusion x2 years - h/o fungal pneumonia, on maintenance voriconazole - h/o post-obstructive pneumonia - h/o HTN, CAD, hyperlipidemia - h/o paroxysmal A fib - h/o DVT in LUE - h/o hypothyroidism Exam/Review of Systems Vital Signs Vitals Vital Signs Date Time Temp Pulse Resp B/P Pulse Ox O2 Delivery O2 Flow Rate FiO2 09/01/16 17:01 76 14 100 30 09/01/16 16:00 98.3 119/88 Mechanical Ventilator Intake and Output 08/31/16 08/31/16 09/01/16 15:00 23:00 07:00 Intake Total 2300 ml Output Total 2500 ml Balance 2300 ml -2500 ml Exam orally intubettes, on vent. sedated Constitutional: other (sedated on propofol) Head: atraumatic, normocephalic Eyes: nl conjunctiva ENMT: nl external ears & nose Neck: non-tender, supple Respiratory: diminished breath sounds Cardiovascular: irregular rhythm Gastrointestinal: non-tender, soft Musculoskeletal: nl extremities to inspection, nl gait and stance Extremities: normal pulses Skin: nl turgor Lymph: nl lymph nodes Results Result Diagram: 09/01/16 0525 09/01/16 0520 Results 24 hrs Laboratory Tests Test 08/31/16 18:39 09/01/16 05:20 09/01/16 05:25 Lactic Acid Level 1.0 Sodium Level 141 Potassium Level 4.2 Chloride Level 105 Carbon Dioxide Level 26 Anion Gap 14 Blood Urea Nitrogen 16 Creatinine 0.83 Glucose Level 124 Calcium Level 8.6 White Blood Count 4.4 L Red Blood Count 3.21 L Hemoglobin 9.9 L Hematocrit 32.0 L Mean Corpuscular Volume 99.7 Mean Corpuscular Hemoglobin 30.8 Mean Corpuscular Hemoglobin Concent 30.9 L Red Cell Distribution Width 14.9 H Platelet Count 65 L Mean Platelet Volume 11.2 H Neutrophils % 87.6 H Lymphocytes % 9.7 L Monocytes % 2.5 Eosinophils % 0.0 Basophils % 0.0 Nucleated Red Blood Cells % 0.0 Neutrophils # 3.8 Lymphocytes # 0.4 L Monocytes # 0.1 L Eosinophils # 0.0 Basophils # 0.0 Nucleated Red Blood Cells # 0.0 Medications Medications Current Medications Pantoprazole (Protonix Iv) 40 mg DAILY IV Last administered on 09/01/16 10:16; Admin Dose 40 MG; Start 08/31/16 at 15:00 IV Flush 10 ml 10 ml PRN PRN IV IV PROTOCOL; Start 08/31/16 at 18:30 Vancomycin HCl 1.5 gm/Sodium Chloride 250 ml @ 83.333 mls/ hr Q12H IVPB ; Start 09/01/16 at 21:00 Meropenem 100 ml @ 200 mls/hr Q8 IVPB Last administered on 09/01/16 16:41; Admin Dose 200 MLS/HR; Start 09/01/16 at 14:00 Voriconazole (Vfend 200mg/NS) 100 ml @ 50 mls/hr Q12 IVPB ; Start 09/01/16 at 12 :00 LUBA EARLY Sep 01, 2016 17:09
[2016-09-01] MEDS: VORICONAZOLE 200 MG/NS 100 ML IVPB SCH ×2 (18:00→21:00)
[2016-09-01] MEDS: PROPOFOL 100 ML IV SCH ×2 (20:11→21:58)
--- NOTE | 2016-09-01 23:00 | CONS ---
Date/Time of Note Date/Time of Note DATE: 09/01/16 TIME: 22:55 Assessment/Plan Assessment/Plan Chief Complaint/Hosp Course metastatic lung disease Hypoxemic respiratory failure, possibly secondary to a reaction to chemotherapy. History of coronary artery disease. History of chronic obstructive pulmonary disease PLAN: 1. Continue broad-spectrum antibiotics, currently on Voriconazole, meropenem and vancomycin. 2. IV fluids. 3. CPAP weaning trial. 4. Deep venous thrombosis and gastrointestinal prophylaxis. chemo on hold Problems: Consultation Date/Type/Reason Admit Date/Time Sep 01, 2016 at 14:47 Initial Consult Date 09/01/16 [facility] Referring Provider: MARYAM FARMER MD 24 HR Interval Summary Free Text/Dictation This is a [address] 4 non-small cell lung cancer who is undergoing IV chemotherapy In 03/2017, Pt developed severe bronchitis and pneumonia. He was admitted at [facility]. According to Pt's , Pt was in an isolation room, requiring a mask and gown, and submitted multiple samples of sputum. She said that tuberculosis was ruled out by sputum and "blood test." He had bronchoscopy , and was eventually diagnosed with "fungus" pneumonia. Pt's does not recall its name. As a result, Pt has been taking voriconazole 100mg PO bid since the beginning of 04/2017. Several days before the current presentation, Pt developed cough, productive of yellow and green sputum. No hemoptysis. The cough appeared to improve during the last 48hrs. However, Pt became acutely hypoxic at the chemotherapy infusion yesterday. He was placed on CPAP en route to ER but eventually required intubation. Pt was born in [facility] [place] and came to [facility] >30 years ago. He does not smoke or drink. He did not have a known sick contact. Pt's said he had a vaccination but does not recall if it was influenza or pneumonia vaccine. Subjective hx not possible: pt non-verbal, pt critical, pt critical status Past Medical History Medical History: cancer, coronary artery disease, deep vein thrombosis, high cholesterol, hypertension, hypothyroid, urinary tract infection, other (anemia, A fib, 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) Social History Alcohol Use: none Smoking Status: Unknown if ever smoked Drug Use: none Exam/Review of Systems Vital Signs Vitals Vital Signs Date Time Temp Pulse Resp B/P Pulse Ox O2 Delivery O2 Flow Rate FiO2 09/01/16 20:30 75 15 116/73 97 09/01/16 20:00 98.1 Mechanical Ventilator 09/01/16 17:35 30 Intake and Output 08/31/16 08/31/16 09/01/16 15:00 23:00 07:00 Intake Total 2300 ml Output Total 2500 ml Balance 2300 ml -2500 ml Exam Exam Constitutional: non-verbal Head: atraumatic, normocephalic Eyes: nl conjunctiva, nl lids ENMT: intubated, nl external ears & nose Respiratory: crackles/rales Cardiovascular: nl pulses, regular rate and rhythm Gastrointestinal: non-tender, soft Extremities: No edema Neurological: unresponsive Skin: nl turgor Results Result Diagram: 09/01/16 0525 09/01/16 0520 Results 24 hrs Laboratory Tests Test 09/01/16 05:20 09/01/16 05:25 Sodium Level 141 Potassium Level 4.2 Chloride Level 105 Carbon Dioxide Level 26 Anion Gap 14 Blood Urea Nitrogen 16 Creatinine 0.83 Glucose Level 124 Calcium Level 8.6 White Blood Count 4.4 L Red Blood Count 3.21 L Hemoglobin 9.9 L Hematocrit 32.0 L Mean Corpuscular Volume 99.7 Mean Corpuscular Hemoglobin 30.8 Mean Corpuscular Hemoglobin Concent 30.9 L Red Cell Distribution Width 14.9 H Platelet Count 65 L Mean Platelet Volume 11.2 H Neutrophils % 87.6 H Lymphocytes % 9.7 L Monocytes % 2.5 Eosinophils % 0.0 Basophils % 0.0 Nucleated Red Blood Cells % 0.0 Neutrophils # 3.8 Lymphocytes # 0.4 L Monocytes # 0.1 L Eosinophils # 0.0 Basophils # 0.0 Nucleated Red Blood Cells # 0.0 Medications Medications Current Medications Pantoprazole (Protonix Iv) 40 mg DAILY IV Last administered on 09/01/16t 10:16; Admin Dose 40 MG; Start 08/31/16 at 15:00 IV Flush 10 ml 10 ml PRN PRN IV IV PROTOCOL; Start 08/31/16 at 18:30 Vancomycin HCl 1.5 gm/Sodium Chloride 250 ml @ 83.333 mls/ hr Q12H IVPB ; Start 09/01/16 at 21:00 Meropenem 100 ml @ 200 mls/hr Q8 IVPB Last administered on 09/01/16 16:41; Admin Dose 200 MLS/HR; Start 09/01/16 at 14:00 Voriconazole 100 ml @ 50 mls/hr Q12 IVPB Last administered on 09/01/16 18:00; Admin Dose 50 MLS/HR; Start 09/01/16 at 12:00 Propofol (Diprivan) 100 ml @ 3.81 mls/hr Q12H IV Last administered on 21:58; Admin Dose 38.1 MLS/HR; Start 09/01/16 at 20:00 DAHIANA BABCOCK MD Sep 01, 2016 23:00
[2016-09-02] VITALS (64 sets, daily range): BP systolic 91–163; BP diastolic 69–150; PULSE 71–114; RESP 12–29
[2016-09-02] MEDS: VANCOMYCIN 1.5 GM in SOD CHLORIDE 0.9% 250 ML IVPB SCH ×2 (00:38→09:53)
[2016-09-02] MEDS: PROPOFOL 100 ML IV SCH ×5 (00:44→11:30)
[2016-09-02 05:14] LABS: ADD SCAN DIFF NO
[2016-09-02 05:30] LABS: ABNORMAL IP MESSAGE 1; BASOPHILS % 0.2 % (0.0-2.0); EOSINOPHILS % 0.2 % (0.0-7.0); HEMOGLOBIN 9.1 g/dl (14.0-18.0); LYMPHOCYTES # 0.3 10^3/ul (0.8-2.9); LYMPHOCYTES % 5.6 % (15.0-51.0); MEAN CORPUSCULAR HEMOGLOBIN 31.3 pg (29.0-33.0); MEAN CORPUSCULAR HGB CONC 31.4 g/dl (32.0-37.0); MEAN CORPUSCULAR VOLUME 99.7 fl (82.0-101.0); MEAN PLATELET VOLUME 10.3 fl (7.4-10.4); MONOCYTE # 0.3 10^3/ul (0.3-0.9); NEUTROPHIL # 4.6 10^3/ul (1.6-7.5); NEUTROPHILS % 88.6 % (39.0-77.0); PLATELET COUNT 55 10^3/UL (140-415); RED BLOOD COUNT 2.91 10^6/ul (4.70-6.10); RED CELL DISTRIBUTION WIDTH 14.8 % (11.5-14.5); WHITE BLOOD COUNT 5.2 10^3/ul (4.8-10.8)
[2016-09-02 05:38] LABS: POTASSIUM 3.7 mmol/L (3.5-5.1)
[2016-09-02 05:41] LABS: CREATININE 0.84 mg/dl (0.61-1.24); PHOSPHORUS 3.8 mg/dl (2.5-4.9)
[2016-09-02 05:42] LABS: CALCIUM 8.4 mg/dl (8.4-10.2); MAGNESIUM 1.3 mg/dl (1.7-2.5)
[2016-09-02] MEDS: MEROPENEM 1 GM/100 ML (PMX) 100 ML IVPB SCH ×3 (05:47→21:26)
--- NOTE | 2016-09-02 08:21 | PN ---
Date/Time of Note Date/Time of Note DATE: 09/02/16 TIME: 08:06 Assessment/Plan VTE Prophylaxis VTE Prophylaxis Intervention: SCD's Lines/Catheters IV Catheter Type (from Nrs): PICC Line Urinary Cath still in place: Yes Assessment/Plan Assessment/Plan - Severe sepsis due to pneumonia/bronchitis - per ID- Dr Tesfaye - Advanced non-small cell lung CA, s/p chemo - per dr Slaughter in oncology - Pancytopenia due to chemotherapy - advanced non-small cell lung CA, on biweekly chemotherapy infusion x2 years - h/o fungal pneumonia, on maintenance voriconazole - h/o post-obstructive pneumonia - h/o HTN, CAD, hyperlipidemia - h/o paroxysmal A fib - h/o DVT in LUE - h/o hypothyroidism - Hypomagnesium- replet magnesium - am Mag level am Further treatment depends upon patient's clnical course. Total critical care time spent 30 mins. Plan of care dw Dr Lincoln/staff Subjective 24 Hr Interval Summary Free Text/Dictation On Propafol 50 mcg.hr, failed CPAP, remains orally intubated, afebrile.facial grimacing noted on touch. dw staff. Subjective hx not possible: pt non-verbal Constitutional: requiring IVF, requiring O2 Exam/Review of Systems Vital Signs Vitals Vital Signs Date Time Temp Pulse Resp B/P Pulse Ox O2 Delivery O2 Flow Rate FiO2 09/02/16 07:00 81 09/02/16 06:30 14 123/85 100 09/02/16 06:00 Mechanical Ventilator 09/02/16 05:26 30 09/02/16 04:00 97.8 Intake and Output 09/01/16 09/01/16 09/02/16 15:00 23:00 07:00 Intake Total 964.3 ml 578.6 ml Output Total 500 ml 620 ml 660 ml Balance -500 ml 344.3 ml -81.4 ml Exam Constitutional: non-verbal Eyes: nl sclera Neck: non-tender Respiratory: diminished breath sounds, other (remains intubated) Cardiovascular: nl pulses Gastrointestinal: non-tender, soft Musculoskeletal: nl extremities to inspection Neurological: unresponsive Skin: other Lymph: nontender Results Result Diagram: 09/02/16 0340 09/02/16 0340 Results 24 hrs Laboratory Tests Test 09/02/16 03:40 White Blood Count 5.2 Red Blood Count 2.91 L Hemoglobin 9.1 L Hematocrit 29.0 L Mean Corpuscular Volume 99.7 Mean Corpuscular Hemoglobin 31.3 Mean Corpuscular Hemoglobin Concent 31.4 L Red Cell Distribution Width 14.8 H Platelet Count 55 L Mean Platelet Volume 10.3 Neutrophils % 88.6 H Lymphocytes % 5.6 L Monocytes % 5.0 Eosinophils % 0.2 Basophils % 0.2 Nucleated Red Blood Cells % 0.0 Neutrophils # 4.6 Lymphocytes # 0.3 L Monocytes # 0.3 Eosinophils # 0.0 Basophils # 0.0 Nucleated Red Blood Cells # 0.0 Sodium Level 142 Potassium Level 3.7 Chloride Level 105 Carbon Dioxide Level 27 Anion Gap 14 Blood Urea Nitrogen 15 Creatinine 0.84 Glucose Level 91 Calcium Level 8.4 Phosphorus Level 3.8 Magnesium Level 1.3 L Medications Medications Current Medications Pantoprazole (Protonix Iv) 40 mg DAILY IV Last administered on 09/01/16 10:16; Admin Dose 40 MG; Start 08/31/16 at 15:00 IV Flush 10 ml 10 ml PRN PRN IV IV PROTOCOL; Start 08/31/16 at 18:30 Vancomycin HCl 1.5 gm/Sodium Chloride 250 ml @ 83.333 mls/ hr Q12H IVPB Last administered on 09/02/16 00:38; Admin Dose 83.333 MLS/HR; Start 09/01/16 at 21:00 Meropenem 100 ml @ 200 mls/hr Q8 IVPB Last administered on 09/02/16 05:47; Admin Dose 200 MLS/HR; Start 09/01/16 at 14:00 Voriconazole 100 ml @ 50 mls/hr Q12 IVPB Last administered on 09/01/16 18:00; Admin Dose 50 MLS/HR; Start 09/01/16 at 12:00 Propofol (Diprivan) 100 ml @ 3.81 mls/hr Q12H IV Last administered on 06:14; Admin Dose 38.1 MLS/HR; Start 09/01/16 at 20:00 TRAMAINE ELLSWORTH Sep 02, 2016 08:16
[2016-09-02] MEDS ORDERED: LORAZEPAM 2 MG INJ IV PRN (08:30)
[2016-09-02] MEDS ORDERED: MAGNESIUM SULFATE 2 GM/50 ML 50 ML IVPB ONE (08:30)
[2016-09-02] MEDS: PANTOPRAZOLE 40 MG INJ IV SCH (08:56)
[2016-09-02 09:00] LABS: AADO2 Arterial 66.8 mmHg (7.0-24.0); Allen Test ACCEPTAB; Arterial Base Excess 2.2 mmol/L (-3.0-3); Arterial HCO3 26.9 mmol/L (22.0-26.0); MODE VENT - AC
--- NOTE | 2016-09-02 11:06 | RADRPT ---
PROCEDURE: XR Chest. CLINICAL INDICATION: chest pain TECHNIQUE: Single AP view of the chest were obtained COMPARISON: CT chest 08/31/2016 FINDINGS: The heart is at the upper limits of normal in size. The pulmonary vasculature are unremarkable. The aorta demonstrates atherosclerotic calcifications. There is consolidation of the right upper lobe with volume loss and shift of the mediastinum towards the right. The left lung is clear. Endotrach eal tube terminates within the mid trachea. Degenerative changes are seen within the thoracic spine . There is no acute osseous abnormality. IMPRESSION: Stable right upper lobe consolidation and volume loss with shift of the mediastinum towards the righ t. RPTAT: AA .Susu Quinones MD, Date Time Electronically viewed and signed by .Susu Quinones MD, on 09/02/2016 11:05 .J/
[2016-09-02] MEDS: SOD CHLORIDE 0.9% IVPB SCH ×2 (11:41→20:02)
[2016-09-02] MEDS: VORICONAZOLE IVPB SCH ×2 (11:41→20:02)
--- NOTE | 2016-09-02 14:19 | CONS ---
Date/Time of Note Date/Time of Note DATE: 09/02/16 TIME: 14:16 Consult Date/Type/Reason Admit Date/Time Sep 01, 2016 at 14:47 Initial Consult Date 09/01/16 Type of Consultation: Pulm/CCM Ordering Provider: MARYAM FARMER MD Subjective Awake and alert. On CPAP with PS. Objective Vital Signs Date Time Temp Pulse Resp B/P Pulse Ox O2 Delivery O2 Flow Rate FiO2 09/02/16 12:30 78 20 162/150 100 09/02/16 12:15 30 09/02/16 12:00 98.4 09/02/16 06:00 Mechanical Ventilator Intake and Output 09/01/16 09/01/16 09/02/16 15:00 23:00 07:00 Intake Total 964.3 ml 616.7 ml Output Total 500 ml 620 ml 660 ml Balance -500 ml 344.3 ml -43.3 ml Exam HEENT: Dry mucous membranes. Pupils equal and reactive to light. CARDIAC: S1, S2, no added sounds or murmurs. CHEST: Diminished BS right lung ABDOMEN: Soft, nontender. No guarding or rebound. EXTREMITIES: No cyanosis, clubbing, edema. Results/Medications Result Diagram: 09/02/16 0340 09/02/16 0340 Results 24 hrs Laboratory Tests Test 09/02/16 03:40 09/02/16 07:00 White Blood Count 5.2 Red Blood Count 2.91 L Hemoglobin 9.1 L Hematocrit 29.0 L Mean Corpuscular Volume 99.7 Mean Corpuscular Hemoglobin 31.3 Mean Corpuscular Hemoglobin Concent 31.4 L Red Cell Distribution Width 14.8 H Platelet Count 55 L Mean Platelet Volume 10.3 Neutrophils % 88.6 H Lymphocytes % 5.6 L Monocytes % 5.0 Eosinophils % 0.2 Basophils % 0.2 Nucleated Red Blood Cells % 0.0 Neutrophils # 4.6 Lymphocytes # 0.3 L Monocytes # 0.3 Eosinophils # 0.0 Basophils # 0.0 Nucleated Red Blood Cells # 0.0 Sodium Level 142 Potassium Level 3.7 Chloride Level 105 Carbon Dioxide Level 27 Anion Gap 14 Blood Urea Nitrogen 15 Creatinine 0.84 Glucose Level 91 Calcium Level 8.4 Phosphorus Level 3.8 Magnesium Level 1.3 L Blood Gas Specimen Source Blood arterial Arterial Blood Date Drawn 09/02/2016 8:35:41 AM Arterial Blood pH (Temp corrected) 7.423 Arterial Blood pCO2 (Temp correct) 42.1 Arterial Blood pO2 (Temp corrected) 97.6 Arterial Blood HCO3 26.9 H Arterial Blood Base Excess 2.2 Jose Alfredo Test ACCEPTAB Arterial Blood Gas Puncture Site Right Radial Blood Gas A-a O2 Differential 66.8 H Blood Gas Temperature 37.0 Blood Gas Respiration Rate 14.0 Blood Gas Actual Respiration Rate 18 Blood Gas Modality VENT - AC FiO2 30.0 Blood Gas Tidal Volume 500.0 Blood Gas Low PEEP Setting 5.0 Blood Gas Notified Whom DT Blood Gas Notified Time 09/02/2016 9:00:22 AM Medications Current Medications Pantoprazole (Protonix Iv) 40 mg DAILY IV Last administered on 09/02/16 08:56; Admin Dose 40 MG; Start 08/31/16 at 15:00 IV Flush 10 ml 10 ml PRN PRN IV IV PROTOCOL; Start 08/31/16 at 18:30 Vancomycin HCl 1.5 gm/Sodium Chloride 250 ml @ 83.333 mls/ hr Q12H IVPB Last administered on 09/02/16 09:53; Admin Dose 83.333 MLS/HR; Start 09/01/16 at 21:00 Meropenem 100 ml @ 200 mls/hr Q8 IVPB Last administered on 09/02/16 05:47; Admin Dose 200 MLS/HR; Start 09/01/16 at 14:00 Propofol (Diprivan) 100 ml @ 3.81 mls/hr Q12H IV Last administered on 11:30; Admin Dose 38.1 MLS/HR; Start 09/01/16 at 20:00 Lorazepam (Ativan) 2 mg Q2H PRN IV AGITATION Last administered on 09/02/16 08: 49; Admin Dose 2 MG; Start 09/02/16 at 08:30 Morphine Sulfate 2 mg 2 mg Q2H PRN IV PAIN; Start 09/02/16 at 08:30 Voriconazole/ Sodium Chloride (Vfend Iv/NS) 100 ml @ 50 mls/hr Q12 IVPB Last administered on 09/02/16 11:41; Admin Dose 50 MLS/HR; Start 09/02/16 at 10:00 Miscellaneous Information (*Rx Drug Level Order Reminder*) VANCOMYCIN TROUGH 09/02 AT 2000 ONCE ONCE XX ; Start 09/02/16 at 20:00; Stop 09/02/16 at 20:01 Assessment/Plan Additional Assessment/Plan IMPRESSION: 1. Hypoxemic respiratory failure, possibly secondary to a reaction to chemotherapy. However, CT shows progressive right lung atelectasis due to tumor progression. 2. Evidence of significant metastatic lung disease on chest x-ray. 3. History of coronary artery disease. 4. History of chronic obstructive pulmonary disease PLAN: 1. De-escalate Abx 2. Extubate to NC 3. Follow cultures 4. Deep venous thrombosis and gastrointestinal prophylaxis 5. Gentle diuresis 35 min cc time ELIZABETH VALENZUELA MD Sep 02, 2016 14:19
[2016-09-02] MEDS ORDERED: FUROSEMIDE 20 MG INJ IV ONE (14:30)
--- NOTE | 2016-09-02 16:01 | CONS ---
Date/Time of Note Date/Time of Note DATE: 09/02/16 TIME: 15:52 Assessment/Plan Assessment/Plan Chief Complaint/Hosp Course - severe sepsis due to pneumonia/bronchitis - severe pneumonia/bronchitis in the setting of advanced non-small cell lung CA : a variety of possible pathogens because Pt is immunocompromised - pancytopenia due to chemotherapy infusion - advanced non-small cell lung CA, on biweekly chemotherapy infusion x2 years - h/o fungal pneumonia diagnosed in 03/2016 (exact fungi to be identified by his medical records from [facility]), on maintenance voriconazole - h/o post-obstructive pneumonia - h/o HTN, CAD, hyperlipidemia - h/o paroxysmal A fib - h/o DVT in LUE - h/o hypothyroidism recommendations - f/u all recent cxs - f/u respiratory panel by NAAT, mycoplasma by NAAT, respiratory culture, procalcitonin, legionella antigen, 1,0-kbhy-Z-glucan, cocci serology, crypto antigen, aspergillus antigen and antibody, Q TB gold. HIV was tested negative in 2013. - await records from [facility] - asked nursing to obtain bcx results - cont: IV vancomycin, meropenem, levofloxacin until further cx data elucidated - resume voriconazole. Pt's says that she takes 100 mg bid instead of bid at home. I will confirm this once I get medical records from [facility] - I recommend droplet precautions until respiratory viruses are ruled out by NAAT Problems: Consultation Date/Type/Reason Admit Date/Time Sep 01, 2016 at 14:47 Initial Consult Date 09/01/16 Type of Consultation: Pulm/CCM Referring Provider: MARYAM FARMER MD 24 HR Interval Summary Free Text/Dictation d/w nursing Exam/Review of Systems Vital Signs Vitals Vital Signs Date Time Temp Pulse Resp B/P Pulse Ox O2 Delivery O2 Flow Rate FiO2 09/02/16 15:30 97 20 123/82 98 09/02/16 12:15 30 09/02/16 12:00 98.4 09/02/16 06:00 Mechanical Ventilator Intake and Output 09/01/16 09/01/16 09/02/16 15:00 23:00 07:00 Intake Total 964.3 ml 616.7 ml Output Total 500 ml 620 ml 660 ml Balance -500 ml 344.3 ml -43.3 ml Exam just extubated Constitutional: alert, oriented, well developed Head: atraumatic, normocephalic Respiratory: diminished breath sounds Cardiovascular: regular rate and rhythm Gastrointestinal: soft Results Result Diagram: 09/02/16 0340 09/02/16 0340 Results 24 hrs Laboratory Tests Test 09/02/16 03:40 09/02/16 07:00 White Blood Count 5.2 Red Blood Count 2.91 L Hemoglobin 9.1 L Hematocrit 29.0 L Mean Corpuscular Volume 99.7 Mean Corpuscular Hemoglobin 31.3 Mean Corpuscular Hemoglobin Concent 31.4 L Red Cell Distribution Width 14.8 H Platelet Count 55 L Mean Platelet Volume 10.3 Neutrophils % 88.6 H Lymphocytes % 5.6 L Monocytes % 5.0 Eosinophils % 0.2 Basophils % 0.2 Nucleated Red Blood Cells % 0.0 Neutrophils # 4.6 Lymphocytes # 0.3 L Monocytes # 0.3 Eosinophils # 0.0 Basophils # 0.0 Nucleated Red Blood Cells # 0.0 Sodium Level 142 Potassium Level 3.7 Chloride Level 105 Carbon Dioxide Level 27 Anion Gap 14 Blood Urea Nitrogen 15 Creatinine 0.84 Glucose Level 91 Calcium Level 8.4 Phosphorus Level 3.8 Magnesium Level 1.3 L Blood Gas Specimen Source Blood arterial Arterial Blood Date Drawn 09/02/2016 8:35:41 AM Arterial Blood pH (Temp corrected) 7.423 Arterial Blood pCO2 (Temp correct) 42.1 Arterial Blood pO2 (Temp corrected) 97.6 Arterial Blood HCO3 26.9 H Arterial Blood Base Excess 2.2 Jose Alfredo Test ACCEPTAB Arterial Blood Gas Puncture Site Right Radial Blood Gas A-a O2 Differential 66.8 H Blood Gas Temperature 37.0 Blood Gas Respiration Rate 14.0 Blood Gas Actual Respiration Rate 18 Blood Gas Modality VENT - AC FiO2 30.0 Blood Gas Tidal Volume 500.0 Blood Gas Low PEEP Setting 5.0 Blood Gas Notified Whom DT Blood Gas Notified Time 09/02/2016 9:00:22 AM Medications Medications Current Medications Pantoprazole (Protonix Iv) 40 mg DAILY IV Last administered on 09/02/16t 08:56; Admin Dose 40 MG; Start 08/31/16 at 15:00 IV Flush 10 ml 10 ml PRN PRN IV IV PROTOCOL; Start 08/31/16 at 18:30 Vancomycin HCl 1.5 gm/Sodium Chloride 250 ml @ 83.333 mls/ hr Q12H IVPB Last administered on 09/02/16 09:53; Admin Dose 83.333 MLS/HR; Start 09/01/16 at 21:00 Meropenem 100 ml @ 200 mls/hr Q8 IVPB Last administered on 09/02/16 05:47; Admin Dose 200 MLS/HR; Start 09/01/16 at 14:00 Propofol (Diprivan) 100 ml @ 3.81 mls/hr Q12H IV Last administered on 11:30; Admin Dose 38.1 MLS/HR; Start 09/01/16 at 20:00 Lorazepam (Ativan) 2 mg Q2H PRN IV AGITATION Last administered on 09/02/16 08: 49; Admin Dose 2 MG; Start 09/02/16 at 08:30 Morphine Sulfate 2 mg 2 mg Q2H PRN IV PAIN; Start 09/02/16 at 08:30 Voriconazole/ Sodium Chloride (Vfend Iv/NS) 100 ml @ 50 mls/hr Q12 IVPB Last administered on 09/02/16 11:41; Admin Dose 50 MLS/HR; Start 09/02/16 at 10:00 Miscellaneous Information (*Rx Drug Level Order Reminder*) VANCOMYCIN TROUGH 09/02 AT 2000 ONCE ONCE XX ; Start 09/02/16 at 20:00; Stop 09/02/16 at 20:01 DELIO DIALLO MD Sep 02, 2016 16:01
[2016-09-02] MEDS ORDERED: METOPROLOL 5 MG INJ ONE (17:06)
[2016-09-02] MEDS: morphine 2 MG INJ IV PRN ×2 (17:23→20:01)
[2016-09-02] MEDS: LEVOFLOXACIN 750MG/D5W (PMX) 150 ML IVPB SCH (17:23)
[2016-09-02] MEDS ORDERED: METOPROLOL 5 MG INJ IV PRN (17:30)
--- NOTE | 2016-09-02 23:21 | CONS ---
Date/Time of Note Date/Time of Note DATE: 09/02/16 TIME: 23:21 Assessment/Plan Assessment/Plan Chief Complaint/Hosp Course metastatic lung disease - ON CHEMO Hypoxemic respiratory failure, possibly secondary to a reaction to chemotherapy. History of coronary artery disease. History of chronic obstructive pulmonary disease PLAN: Continue broad-spectrum antibiotics, currently on Voriconazole, meropenem and vancomycin.- PER ID WOULD NARROW COVERAGE IV fluids. Deep venous thrombosis and gastrointestinal prophylaxis. chemo on hold Problems: Consultation Date/Type/Reason Admit Date/Time Sep 01, 2016 at 14:47 Initial Consult Date 09/01/16 [facility] Referring Provider: MARYAM FARMER MD 24 HR Interval Summary Free Text/Dictation ALL NOTED EXTUBATED D/W Exam/Review of Systems Vital Signs Vitals Vital Signs Date Time Temp Pulse Resp B/P Pulse Ox O2 Delivery O2 Flow Rate FiO2 09/02/16 22:00 104 22 91/75 94 Nasal Cannula 09/02/16 20:00 98.8 2.0 09/02/16 13:00 30 Intake and Output 09/01/16 09/01/16 09/02/16 15:00 23:00 07:00 Intake Total 964.3 ml 616.7 ml Output Total 500 ml 620 ml 660 ml Balance -500 ml 344.3 ml -43.3 ml Exam extubated Constitutional: alert, oriented, well developed Head: atraumatic, normocephalic Respiratory: diminished breath sounds Cardiovascular: regular rate and rhythm Gastrointestinal: soft Results Result Diagram: 09/02/16 0340 09/02/16 0340 Results 24 hrs Laboratory Tests Test 09/02/16 03:40 09/02/16 07:00 09/02/16 20:05 White Blood Count 5.2 Red Blood Count 2.91 L Hemoglobin 9.1 L Hematocrit 29.0 L Mean Corpuscular Volume 99.7 Mean Corpuscular Hemoglobin 31.3 Mean Corpuscular Hemoglobin Concent 31.4 L Red Cell Distribution Width 14.8 H Platelet Count 55 L Mean Platelet Volume 10.3 Neutrophils % 88.6 H Lymphocytes % 5.6 L Monocytes % 5.0 Eosinophils % 0.2 Basophils % 0.2 Nucleated Red Blood Cells % 0.0 Neutrophils # 4.6 Lymphocytes # 0.3 L Monocytes # 0.3 Eosinophils # 0.0 Basophils # 0.0 Nucleated Red Blood Cells # 0.0 Sodium Level 142 Potassium Level 3.7 Chloride Level 105 Carbon Dioxide Level 27 Anion Gap 14 Blood Urea Nitrogen 15 Creatinine 0.84 Glucose Level 91 Calcium Level 8.4 Phosphorus Level 3.8 Magnesium Level 1.3 L Blood Gas Specimen Source Blood arterial Arterial Blood Date Drawn 09/02/2016 8:35:41 AM Arterial Blood pH (Temp corrected) 7.423 Arterial Blood pCO2 (Temp correct) 42.1 Arterial Blood pO2 (Temp corrected) 97.6 Arterial Blood HCO3 26.9 H Arterial Blood Base Excess 2.2 Jose Alfredo Test ACCEPTAB Arterial Blood Gas Puncture Site Right Radial Blood Gas A-a O2 Differential 66.8 H Blood Gas Temperature 37.0 Blood Gas Respiration Rate 14.0 Blood Gas Actual Respiration Rate 18 Blood Gas Modality VENT - AC FiO2 30.0 Blood Gas Tidal Volume 500.0 Blood Gas Low PEEP Setting 5.0 Blood Gas Notified Whom DT Blood Gas Notified Time 09/02/2016 9:00:22 AM Vancomycin Level Trough 21.8 *H Medications Medications Current Medications Pantoprazole (Protonix Iv) 40 mg DAILY IV Last administered on 09/02/16 08:56; Admin Dose 40 MG; Start 08/31/16 at 15:00 IV Flush 10 ml 10 ml PRN PRN IV IV PROTOCOL; Start 08/31/16 at 18:30 Meropenem (Merrem 1 Gm/100 ml (Pmx)) 100 ml @ 200 mls/hr Q8 IVPB Last administered on 09/02/16 21:26; Admin Dose 200 MLS/HR; Start 09/01/16 at 14:00 Morphine Sulfate 2 mg 2 mg Q2H PRN IV PAIN Last administered on 09/02/16 20:01 ; Admin Dose 2 MG; Start 09/02/16 at 08:30 Voriconazole 200 mg/Sodium Chloride 100 ml @ 50 mls/hr Q12 IVPB Last administered on 09/02/16 20:02; Admin Dose 50 MLS/HR; Start 09/02/16 at 10:00 Levofloxacin/ Dextrose (Levaquin 750 Mg/ D5W 150 ml (Pmx)) 150 ml @ 100 mls/hr Q24H IVPB Last administered on 09/02/16 17:23; Admin Dose 100 MLS/HR; Start 09/02/16 at 17:00 Metoprolol Tartrate 5 mg 5 mg Q4H PRN IV ELEVATED HEART RATE Last administered on 09/02/16t 17:09; Admin Dose 5 MG; Start 09/02/16 at 17:30 Vancomycin HCl/ Sodium Chloride (Vancocin/NS) 250 ml @ 83.333 mls/ hr Q12H IVPB ; Start 09/03/16 at 01:00 DAHIANA BABCOCK MD Sep 02, 2016 23:21
[2016-09-03] VITALS (24 sets, daily range): BP systolic 89–128; BP diastolic 58–84; PULSE 93–105; RESP 15–27
[2016-09-03] MEDS: VANCOMYCIN 1.25 GM in SOD CHLORIDE 0.9% 250 ML IVPB SCH ×2 (00:52→13:33)
[2016-09-03] MEDS: morphine 2 MG INJ IV PRN ×5 (00:57→19:40)
[2016-09-03] MEDS: MEROPENEM 1 GM/100 ML (PMX) 100 ML IVPB SCH ×3 (05:19→22:42)
[2016-09-03 05:23] LABS: ADD SCAN DIFF NO
[2016-09-03 05:27] LABS: ABNORMAL IP MESSAGE 1; BASOPHILS % 0.4 % (0.0-2.0); EOSINOPHILS # 0.1 10^3/ul (0.0-0.5); EOSINOPHILS % 1.2 % (0.0-7.0); HEMATOCRIT 30.2 % (42.0-52.0); HEMOGLOBIN 9.4 g/dl (14.0-18.0); LYMPHOCYTES # 0.6 10^3/ul (0.8-2.9); LYMPHOCYTES % 12.3 % (15.0-51.0); MEAN CORPUSCULAR HGB CONC 31.1 g/dl (32.0-37.0); MEAN CORPUSCULAR VOLUME 99.7 fl (82.0-101.0); MEAN PLATELET VOLUME 11.4 fl (7.4-10.4); MONOCYTE # 0.2 10^3/ul (0.3-0.9); MONOCYTES % 3.8 % (0.0-11.0); NEUTROPHIL # 4.3 10^3/ul (1.6-7.5); NEUTROPHILS % 81.9 % (39.0-77.0); PLATELET COUNT 46 10^3/UL (140-415); RED BLOOD COUNT 3.03 10^6/ul (4.70-6.10); WHITE BLOOD COUNT 5.2 10^3/ul (4.8-10.8)
[2016-09-03 05:51] LABS: POTASSIUM 3.4 mmol/L (3.5-5.1)
[2016-09-03 05:54] LABS: CALCIUM 8.5 mg/dl (8.4-10.2); CREATININE 0.94 mg/dl (0.61-1.24)
[2016-09-03 05:56] LABS: ALBUMIN 3.2 g/dl (3.3-4.9)
[2016-09-03 05:57] LABS: POTASSIUM 3.4 mmol/L (3.5-5.1)
[2016-09-03 05:59] LABS: ALBUMIN/GLOBULIN RATIO 1.06; BILIRUBIN,INDIRECT 0.5 mg/dl (0-1.1); BILIRUBIN,TOTAL 0.5 mg/dl (0.2-1.3); CREATININE 0.93 mg/dl (0.61-1.24); TOTAL PROTEIN 6.2 g/dl (6.1-8.1)
[2016-09-03 06:00] LABS: CALCIUM 8.5 mg/dl (8.4-10.2); MAGNESIUM 1.3 mg/dl (1.7-2.5)
[2016-09-03] MEDS: PANTOPRAZOLE 40 MG INJ IV SCH (07:49)
[2016-09-03] MEDS: SOD CHLORIDE 0.9% IVPB SCH ×2 (09:34→20:41)
[2016-09-03] MEDS: VORICONAZOLE IVPB SCH ×2 (09:34→20:41)
--- NOTE | 2016-09-03 10:17 | PN ---
Date/Time of Note Date/Time of Note DATE: 09/03/16 TIME: 10:12 Assessment/Plan VTE Prophylaxis VTE Prophylaxis Intervention: SCD's Lines/Catheters IV Catheter Type (from Nrs): PICC Line Urinary Cath still in place: Yes Assessment/Plan Assessment/Plan - Severe sepsis due to pneumonia/bronchitis - per ID- Dr Tesfaye - Advanced non-small cell lung CA, s/p chemo - per dr Slaughter in oncology - Pancytopenia due to chemotherapy - advanced non-small cell lung CA, on biweekly chemotherapy infusion x2 years - h/o fungal pneumonia, on maintenance voriconazole - h/o post-obstructive pneumonia - h/o HTN, CAD, hyperlipidemia - h/o paroxysmal A fib - h/o DVT in LUE - h/o hypothyroidism - Hypomagnesium- replet magnesium - am Mag level am - Hypokalemia- replet potassium - am K level Further treatment depends upon patient's clnical course. Total critical care time spent 30 mins. Plan of care dw Dr Lincoln/staff Subjective 24 Hr Interval Summary Constitutional: requiring IVF, requiring O2 Exam/Review of Systems Vital Signs Vitals Vital Signs Date Time Temp Pulse Resp B/P Pulse Ox O2 Delivery O2 Flow Rate FiO2 09/03/16 09:00 93 20 110/67 96 Nasal Cannula 2.0 09/03/16 04:00 98.5 09/02/16 13:00 30 Intake and Output 09/02/16 09/02/16 09/03/16 15:00 23:00 07:00 Intake Total 627.16 ml 500 ml 250 ml Output Total 600 ml 1150 ml 535 ml Balance 27.16 ml -650 ml -285 ml Exam Constitutional: well developed Eyes: nl sclera ENMT: nl external ears & nose Respiratory: diminished breath sounds Cardiovascular: nl pulses Gastrointestinal: non-tender, soft Extremities: normal pulses Neurological: lethargic Skin: other Lymph: nontender Results Result Diagram: 09/03/1641909/03/16 042 Results 24 hrs Laboratory Tests Test 09/02/16 20:05 09/03/16 04:20 Vancomycin Level Trough 21.8 *H White Blood Count 5.2 Red Blood Count 3.03 L Hemoglobin 9.4 L Hematocrit 30.2 L Mean Corpuscular Volume 99.7 Mean Corpuscular Hemoglobin 31.0 Mean Corpuscular Hemoglobin Concent 31.1 L Red Cell Distribution Width 15.0 H Platelet Count 46 L Mean Platelet Volume 11.4 H Neutrophils % 81.9 H Lymphocytes % 12.3 L Monocytes % 3.8 Eosinophils % 1.2 Basophils % 0.4 Nucleated Red Blood Cells % 0.0 Neutrophils # 4.3 Lymphocytes # 0.6 L Monocytes # 0.2 L Eosinophils # 0.1 Basophils # 0.0 Nucleated Red Blood Cells # 0.0 Sodium Level 144 Potassium Level 3.4 L Chloride Level 103 Carbon Dioxide Level 28 Anion Gap 16 Blood Urea Nitrogen 16 Creatinine 0.93 Glucose Level 83 Calcium Level 8.5 Magnesium Level 1.3 L Total Bilirubin 0.5 Direct Bilirubin 0.00 Indirect Bilirubin 0.5 Aspartate Amino Transf (AST/SGOT) 16 Alanine Aminotransferase (ALT/SGPT) 19 Alkaline Phosphatase 83 Total Protein 6.2 Albumin 3.2 L Globulin 3.00 Albumin/Globulin Ratio 1.06 Medications Medications Current Medications Pantoprazole (Protonix Iv) 40 mg DAILY IV Last administered on 09/03/16 07:49; Admin Dose 40 MG; Start 08/31/16 at 15:00 IV Flush 10 ml 10 ml PRN PRN IV IV PROTOCOL; Start 08/31/16 at 18:30 Meropenem (Merrem 1 Gm/100 ml (Pmx)) 100 ml @ 200 mls/hr Q8 IVPB Last administered on 09/03/16 05:19; Admin Dose 200 MLS/HR; Start 09/01/16 at 14:00 Morphine Sulfate 2 mg 2 mg Q2H PRN IV PAIN Last administered on 09/03/16 09:34 ; Admin Dose 2 MG; Start 09/02/16 at 08:30 Voriconazole 200 mg/Sodium Chloride 100 ml @ 50 mls/hr Q12 IVPB Last administered on 09/03/16 09:34; Admin Dose 50 MLS/HR; Start 09/02/16 at 10:00 Levofloxacin/ Dextrose (Levaquin 750 Mg/ D5W 150 ml (Pmx)) 150 ml @ 100 mls/hr Q24H IVPB Last administered on 09/02/16 17:23; Admin Dose 100 MLS/HR; Start 09/02/16 at 17:00 Metoprolol Tartrate 5 mg 5 mg Q4H PRN IV ELEVATED HEART RATE Last administered on 09/02/16 17:09; Admin Dose 5 MG; Start 09/02/16 at 17:30 Vancomycin HCl/ Sodium Chloride (Vancocin/NS) 250 ml @ 83.333 mls/ hr Q12H IVPB Last administered on 09/03/16 00:52; Admin Dose 83.333 MLS/HR; Start at 01:00 Miscellaneous Information (*Rx Drug Level Order Reminder*) VANCOMYCIN TROUGH AT 1200 ONCE ONCE XX ; Start 09/04/16 at 12:00; Stop 09/04/16 at 12:01 TRAMAINE ELLSWORTH Sep 03, 2016 10:17
[2016-09-03] MEDS ORDERED: MAGNESIUM SULFATE 2 GM/50 ML 50 ML IVPB ONE (10:30)
[2016-09-03] MEDS: DEXTROSE 5%-0.45% NACL 1,000 ML IV SCH (10:40)
[2016-09-03] MEDS ORDERED: POTASSIUM CHLORIDE 20 MEQ in SOD CHLORIDE 0.9% 100 ML IVPB ONE (11:30)
--- NOTE | 2016-09-03 12:07 | CONS ---
Date/Time of Note Date/Time of Note DATE: 09/03/16 TIME: 12:05 Consult Date/Type/Reason Admit Date/Time Sep 01, 2016 at 14:47 Initial Consult Date 09/01/16 Type of Consultation: Pulm/CCM Ordering Provider: MARYAM FARMER MD Subjective Tolerated extubation. Doing well this am. Objective Vital Signs Date Time Temp Pulse Resp B/P Pulse Ox O2 Delivery O2 Flow Rate FiO2 09/03/16 09:00 93 20 110/67 96 Nasal Cannula 2.0 09/03/16 04:00 98.5 09/02/16 13:00 30 Intake and Output 09/02/16 09/02/16 09/03/16 15:00 23:00 07:00 Intake Total 627.16 ml 500 ml 250 ml Output Total 600 ml 1150 ml 535 ml Balance 27.16 ml -650 ml -285 ml Exam HEENT: Dry mucous membranes. Pupils equal and reactive to light. CARDIAC: S1, S2, no added sounds or murmurs. CHEST: Diminished BS right lung ABDOMEN: Soft, nontender. No guarding or rebound. EXTREMITIES: No cyanosis, clubbing, edema. Results/Medications Result Diagram: 09/03/16 0420 09/03/16 0420 Results 24 hrs Laboratory Tests Test 09/02/16 20:05 09/03/16 04:20 Vancomycin Level Trough 21.8 *H White Blood Count 5.2 Red Blood Count 3.03 L Hemoglobin 9.4 L Hematocrit 30.2 L Mean Corpuscular Volume 99.7 Mean Corpuscular Hemoglobin 31.0 Mean Corpuscular Hemoglobin Concent 31.1 L Red Cell Distribution Width 15.0 H Platelet Count 46 L Mean Platelet Volume 11.4 H Neutrophils % 81.9 H Lymphocytes % 12.3 L Monocytes % 3.8 Eosinophils % 1.2 Basophils % 0.4 Nucleated Red Blood Cells % 0.0 Neutrophils # 4.3 Lymphocytes # 0.6 L Monocytes # 0.2 L Eosinophils # 0.1 Basophils # 0.0 Nucleated Red Blood Cells # 0.0 Sodium Level 144 Potassium Level 3.4 L Chloride Level 103 Carbon Dioxide Level 28 Anion Gap 16 Blood Urea Nitrogen 16 Creatinine 0.93 Glucose Level 83 Calcium Level 8.5 Magnesium Level 1.3 L Total Bilirubin 0.5 Direct Bilirubin 0.00 Indirect Bilirubin 0.5 Aspartate Amino Transf (AST/SGOT) 16 Alanine Aminotransferase (ALT/SGPT) 19 Alkaline Phosphatase 83 Total Protein 6.2 Albumin 3.2 L Globulin 3.00 Albumin/Globulin Ratio 1.06 Medications Current Medications Pantoprazole (Protonix Iv) 40 mg DAILY IV Last administered on 09/03/16 07:49; Admin Dose 40 MG; Start 08/31/16 at 15:00 IV Flush 10 ml 10 ml PRN PRN IV IV PROTOCOL; Start 08/31/16 at 18:30 Meropenem (Merrem 1 Gm/100 ml (Pmx)) 100 ml @ 200 mls/hr Q8 IVPB Last administered on 09/03/16 05:19; Admin Dose 200 MLS/HR; Start 09/01/16 at 14:00 Morphine Sulfate 2 mg 2 mg Q2H PRN IV PAIN Last administered on 09/03/16 09:34 ; Admin Dose 2 MG; Start 09/02/16 at 08:30 Voriconazole 200 mg/Sodium Chloride 100 ml @ 50 mls/hr Q12 IVPB Last administered on 09/03/16 09:34; Admin Dose 50 MLS/HR; Start 09/02/16 at 10:00 Levofloxacin/ Dextrose (Levaquin 750 Mg/ D5W 150 ml (Pmx)) 150 ml @ 100 mls/hr Q24H IVPB Last administered on 09/02/16 17:23; Admin Dose 100 MLS/HR; Start 09/02/16 at 17:00 Metoprolol Tartrate 5 mg 5 mg Q4H PRN IV ELEVATED HEART RATE Last administered on 09/02/16 17:09; Admin Dose 5 MG; Start 09/02/16 at 17:30 Vancomycin HCl/ Sodium Chloride (Vancocin/NS) 250 ml @ 83.333 mls/ hr Q12H IVPB Last administered on 09/03/16 00:52; Admin Dose 83.333 MLS/HR; Start at 01:00 Miscellaneous Information VANCOMYCIN TROUGH AT 1200 ONCE ONCE XX ; Start 09/04/16 at 12:00; Stop 09/04/16 at 12:01 Dextrose/Sodium Chloride 1,000 ml @ 40 mls/hr Q24H IV Last administered on 09/03 10:40; Admin Dose 40 MLS/HR; Start 09/03/16 at 10:30 Magnesium Sulfate 50 ml @ 25 mls/hr ONCE ONCE IVPB Last administered on t 10:39; Admin Dose 25 MLS/HR; Start 09/03/16 at 10:30; Stop 09/03/16 at 12:29 Potassium Chloride/Sodium Chloride (KCl/NS) 110 ml @ 55 mls/hr ONCE ONCE IVPB ; Start 09/03/16 at 11:30; Stop 09/03/16 at 13:29 Assessment/Plan Additional Assessment/Plan IMPRESSION: 1. Hypoxemic respiratory failure, possibly secondary to a reaction to chemotherapy. However, CT shows progressive right lung atelectasis due to tumor progression. Tolerated extubation. 2. Metastatic Lung Ca. 3. History of coronary artery disease. 4. History of chronic obstructive pulmonary disease PLAN: 1. De-escalate Abx 2. Continue BD's/CPT/Incentive spirometry 3. Speech therapy eval 4. Deep venous thrombosis 5. Gentle diuresis 35 min cc time ELIZABETH VALENZUELA MD Sep 03, 2016 12:07
[2016-09-03] MEDS: LEVOFLOXACIN 750MG/D5W (PMX) 150 ML IVPB SCH (17:20)
--- NOTE | 2016-09-03 21:22 | CONS ---
Date/Time of Note Date/Time of Note DATE: 09/03/16 TIME: 21:20 Assessment/Plan Assessment/Plan Chief Complaint/Hosp Course metastatic lung disease - ON CHEMO Hypoxemic respiratory failure, possibly secondary to a reaction to chemotherapy. History of coronary artery disease. History of chronic obstructive pulmonary disease PLAN: Continue broad-spectrum antibiotics, currently on Voriconazole, meropenem and vancomycin.- PER ID WOULD NARROW COVERAGE IV fluids. Deep venous thrombosis and gastrointestinal prophylaxis. chemo on hold Problems: Consultation Date/Type/Reason Admit Date/Time Sep 01, 2016 at 14:47 Initial Consult Date 09/01/16 Type [facility]ation: [facility] Referring Provider: MARYAM FARMER MD 24 HR Interval Summary Free Text/Dictation ALL NOTED IN ICU EXTUBATED D/W Exam/Review of Systems Vital Signs Vitals Vital Signs Date Time Temp Pulse Resp B/P Pulse Ox O2 Delivery O2 Flow Rate FiO2 09/03/16 21:00 95 21 109/73 93 Nasal Cannula 1.0 09/03/16 20:00 98.8 09/02/16 13:00 30 Intake and Output 09/02/16 09/02/16 09/03/16 15:00 23:00 07:00 Intake Total 627.16 ml 500 ml 250 ml Output Total 600 ml 1150 ml 535 ml Balance 27.16 ml -650 ml -285 ml Exam Constitutional: non-verbal Head: atraumatic, normocephalic Eyes: nl conjunctiva, nl lids ENMT: intubated, nl external ears & nose Respiratory: crackles/rales Cardiovascular: nl pulses, regular rate and rhythm Gastrointestinal: non-tender, soft Extremities: No edema Neurological: unresponsive Skin: nl turgor Results Result Diagram: 09/03/160 09/03/160 Results 24 hrs Laboratory Tests Test 09/03/16 04:20 White Blood Count 5.2 Red Blood Count 3.03 L Hemoglobin 9.4 L Hematocrit 30.2 L Mean Corpuscular Volume 99.7 Mean Corpuscular Hemoglobin 31.0 Mean Corpuscular Hemoglobin Concent 31.1 L Red Cell Distribution Width 15.0 H Platelet Count 46 L Mean Platelet Volume 11.4 H Neutrophils % 81.9 H Lymphocytes % 12.3 L Monocytes % 3.8 Eosinophils % 1.2 Basophils % 0.4 Nucleated Red Blood Cells % 0.0 Neutrophils # 4.3 Lymphocytes # 0.6 L Monocytes # 0.2 L Eosinophils # 0.1 Basophils # 0.0 Nucleated Red Blood Cells # 0.0 Sodium Level 144 Potassium Level 3.4 L Chloride Level 103 Carbon Dioxide Level 28 Anion Gap 16 Blood Urea Nitrogen 16 Creatinine 0.93 Glucose Level 83 Calcium Level 8.5 Magnesium Level 1.3 L Total Bilirubin 0.5 Direct Bilirubin 0.00 Indirect Bilirubin 0.5 Aspartate Amino Transf (AST/SGOT) 16 Alanine Aminotransferase (ALT/SGPT) 19 Alkaline Phosphatase 83 Total Protein 6.2 Albumin 3.2 L Globulin 3.00 Albumin/Globulin Ratio 1.06 Medications Medications Current Medications Pantoprazole (Protonix Iv) 40 mg DAILY IV Last administered on 09/03/16 07:49; Admin Dose 40 MG; Start 08/31/16 at 15:00 IV Flush 10 ml 10 ml PRN PRN IV IV PROTOCOL; Start 08/31/16 at 18:30 Meropenem (Merrem 1 Gm/100 ml (Pmx)) 100 ml @ 200 mls/hr Q8 IVPB Last administered on 09/03/16 15:26; Admin Dose 200 MLS/HR; Start 09/01/16 at 14:00 Morphine Sulfate 2 mg 2 mg Q2H PRN IV PAIN Last administered on 09/03/16 19:40 ; Admin Dose 2 MG; Start 09/02/16 at 08:30 Voriconazole 200 mg/Sodium Chloride 100 ml @ 50 mls/hr Q12 IVPB Last administered on 09/03/16 20:41; Admin Dose 50 MLS/HR; Start 09/02/16 at 10:00 Levofloxacin/ Dextrose (Levaquin 750 Mg/ D5W 150 ml (Pmx)) 150 ml @ 100 mls/hr Q24H IVPB Last administered on 09/03/16 17:20; Admin Dose 100 MLS/HR; Start 09/02/16 at 17:00 Metoprolol Tartrate 5 mg 5 mg Q4H PRN IV ELEVATED HEART RATE Last administered on 09/02/16 17:09; Admin Dose 5 MG; Start 09/02/16 at 17:30 Vancomycin HCl/ Sodium Chloride (Vancocin/NS) 250 ml @ 83.333 mls/ hr Q12H IVPB Last administered on 4/9/17at 13:33; Admin Dose 83.333 MLS/HR; Start at 01:00 Miscellaneous Information VANCOMYCIN TROUGH AT 1200 ONCE ONCE XX ; Start 09/04/16 at 12:00; Stop 09/04/16 at 12:01 Dextrose/Sodium Chloride (D5-1/2ns) 1,000 ml @ 40 mls/hr Q24H IV Last administered on 09/03/16 10:40; Admin Dose 40 MLS/HR; Start 09/03/16 at 10:30 DAHIANA BABCOCK MD Sep 03, 2016 21:22
[2016-09-04] VITALS (10 sets, daily range): BP systolic 101–133; BP diastolic 63–82; PULSE 91–100; RESP 16–22
[2016-09-04] MEDS: VANCOMYCIN 1.25 GM in SOD CHLORIDE 0.9% 250 ML IVPB SCH (00:23)
[2016-09-04] MEDS: morphine 2 MG INJ IV PRN ×9 (00:29→22:31)
[2016-09-04] MEDS: MEROPENEM 1 GM/100 ML (PMX) 100 ML IVPB SCH ×3 (05:42→22:31)
[2016-09-04 06:38] LABS: ADD SCAN DIFF NO
[2016-09-04 06:43] LABS: ABNORMAL IP MESSAGE 1; HEMOGLOBIN 9.1 g/dl (14.0-18.0); MEAN CORPUSCULAR HEMOGLOBIN 31.1 pg (29.0-33.0); MEAN CORPUSCULAR HGB CONC 31.4 g/dl (32.0-37.0); MEAN PLATELET VOLUME 11.1 fl (7.4-10.4); PLATELET COUNT 43 10^3/UL (140-415); RED BLOOD COUNT 2.93 10^6/ul (4.70-6.10); RED CELL DISTRIBUTION WIDTH 14.4 % (11.5-14.5); WHITE BLOOD COUNT 4.3 10^3/ul (4.8-10.8)
[2016-09-04 06:57] LABS: ALBUMIN/GLOBULIN RATIO 0.93; BILIRUBIN,INDIRECT 0.6 mg/dl (0-1.1); BILIRUBIN,TOTAL 0.6 mg/dl (0.2-1.3); CALCIUM 8.3 mg/dl (8.4-10.2); CREATININE 0.79 mg/dl (0.61-1.24); POTASSIUM 3.7 mmol/L (3.5-5.1); TOTAL PROTEIN 6.2 g/dl (6.1-8.1)
[2016-09-04] MEDS: VORICONAZOLE IVPB SCH ×2 (08:27→22:31)
[2016-09-04] MEDS: PANTOPRAZOLE 40 MG INJ IV SCH (08:27)
[2016-09-04] MEDS: SOD CHLORIDE 0.9% IVPB SCH ×2 (08:27→22:31)
[2016-09-04 10:22] LABS: INFLUENZA VIRUS A/B SOURCE SWAB
[2016-09-04] MEDS: DEXTROSE 5%-0.45% NACL 1,000 ML IV SCH (10:30)
[2016-09-04 10:54] LABS: EOSINOPHILS # 0.1 10^3/ul (0.0-0.5); LYMPHOCYTES # 0.5 10^3/ul (0.8-2.9)
[2016-09-04 10:55] LABS: PLATELET ESTIMATE PLT APPEAR DECREASED
--- NOTE | 2016-09-04 13:00 | CONS ---
Date/Time of Note Date/Time of Note DATE: 09/04/16 TIME: 12:58 Assessment/Plan Assessment/Plan Additional Assessment/Plan Assessment recommendations; 1. Patient admitted for hypoxemic respiratory failure now successfully extubated and transferred to telemetry unit with excellent overall clinical status. 2. COPD. 3. Possibly pneumonia. 4. Metastatic lung cancer with atelectasis involving the right upper lobe from underlying tumor. Continue current supportive care. Consultation Date/Type/Reason Admit Date/Time Sep 01, 2016 at 14:47 Initial Consult Date 09/01/16 Type of Consultation: Pulmonary Referring Provider: MARYAM FARMER MD 24 HR Interval Summary Free Text/Dictation Patient condition stable. Had been transferred to telemetry unit. Complains of very minimal chest congestion. Denies any chest pain, fever chills or hemoptysis. General exam; middle-aged male, currently in no distress awake and alert. Exam/Review of Systems Vital Signs Vitals Vital Signs Date Time Temp Pulse Resp B/P Pulse Ox O2 Delivery O2 Flow Rate FiO2 09/04/16 12:02 98.4 94 22 133/75 92 09/04/16 04:15 Nasal Cannula 1.0 09/02/16 13:00 30 Intake and Output 09/03/16 09/03/16 09/04/16 15:00 23:00 07:00 Intake Total 383.33 ml 836.67 ml 770 ml Output Total 320 ml 510 ml 250 ml Balance 63.33 ml 326.67 ml 520 ml Exam HEENT exam is; supple neck, no JVD. No lymphadenopathy. Midline trachea. No thyromegaly. Has a right intraocular lens implant. Patient condition is fair. Chest examination NV: Diminished breath sounds right upper lobe, rest of the lung cunha are clear. S1-S2 audible, no murmurs. Regular rhythm. Abdomen examination; protuberant, nontender. No organomegaly. Bowel sounds audible. Extremity exam is; no peripheral edema. Pulses 1+ bilaterally. No clubbing. [employer] examination; no focal deficit. Results Result Diagram: 09/04/16 0601 09/04/16 06 Results 24 hrs Laboratory Tests Test 09/04/16 06:01 White Blood Count 4.3 L Red Blood Count 2.93 L Hemoglobin 9.1 L Hematocrit 29.0 L Mean Corpuscular Volume 99.0 Mean Corpuscular Hemoglobin 31.1 Mean Corpuscular Hemoglobin Concent 31.4 L Red Cell Distribution Width 14.4 Platelet Count 43 L Mean Platelet Volume 11.1 H Neutrophils % 70.0 Band Neutrophils % 15.0 H Lymphocytes % 12.0 L Eosinophils % 3.0 Neutrophils # 3.0 Lymphocytes # 0.5 L Eosinophils # 0.1 Platelet Estimate PLT APPEAR DECREASED Sodium Level 138 Potassium Level 3.7 Chloride Level 103 Carbon Dioxide Level 28 Anion Gap 11 Blood Urea Nitrogen 20 Creatinine 0.79 Glucose Level 90 Calcium Level 8.3 L Total Bilirubin 0.6 Direct Bilirubin 0.00 Indirect Bilirubin 0.6 Aspartate Amino Transf (AST/SGOT) 19 Alanine Aminotransferase (ALT/SGPT) 20 Alkaline Phosphatase 80 Total Protein 6.2 Albumin 3.0 L Globulin 3.20 Albumin/Globulin Ratio 0.93 Medications Medications Current Medications Pantoprazole (Protonix Iv) 40 mg DAILY IV Last administered on 09/04/16 08:27 ; Admin Dose 40 MG; Start 08/31/16 at 15:00 IV Flush 10 ml 10 ml PRN PRN IV IV PROTOCOL; Start 08/31/16 at 18:30 Meropenem (Merrem 1 Gm/100 ml (Pmx)) 100 ml @ 200 mls/hr Q8 IVPB Last administered on 09/04/16 05:42; Admin Dose 200 MLS/HR; Start 09/01/16 at 14:00 Morphine Sulfate 2 mg 2 mg Q2H PRN IV PAIN Last administered on 09/04/16 10:46 ; Admin Dose 2 MG; Start 09/02/16 at 08:30 Voriconazole/ Sodium Chloride (Vfend Iv/NS) 100 ml @ 50 mls/hr Q12 IVPB Last administered on 09/04/16 08:27; Admin Dose 50 MLS/HR; Start 09/02/16 at 10:00 Metoprolol Tartrate 5 mg 5 mg Q4H PRN IV ELEVATED HEART RATE Last administered on 09/02/16 17:09; Admin Dose 5 MG; Start 09/02/16 at 17:30 Dextrose/Sodium Chloride (D5-1/2ns) 1,000 ml @ 40 mls/hr Q24H IV Last administered on 09/03/16 10:40; Admin Dose 40 MLS/HR; Start 09/03/16 at 10:30 ISMA CUTLER Sep 04, 2016 13:00
--- NOTE | 2016-09-04 16:40 | CONS ---
Date/Time of Note Date/Time of Note DATE: 09/04/16 TIME: 16:38 Assessment/Plan Assessment/Plan Chief Complaint/Hosp Course metastatic lung CANCER, NSCLC - ON CHEMO PANCYTOPENIA POST CHEMO Hypoxemic respiratory failure, possibly secondary to a reaction to chemotherapy. History of coronary artery disease. History of chronic obstructive pulmonary disease PLAN: Continue broad-spectrum antibiotics, currently on Voriconazole, meropenem and vancomycin.- PER ID WOULD NARROW COVERAGE IV fluids. Deep venous thrombosis and gastrointestinal prophylaxis. chemo on hold Problems: Consultation Date/Type/Reason Admit Date/Time Sep 01, 2016 at 14:47 Initial Consult Date 09/01/16 [facility] Referring Provider: MARYAM FARMER MD 24 HR Interval Summary Free Text/Dictation ALL NOTED ON TELE DOING BETTER D/W ID Exam/Review of Systems Vital Signs Vitals Vital Signs Date Time Temp Pulse Resp B/P Pulse Ox O2 Delivery O2 Flow Rate FiO2 09/04/16 16:26 98.6 98 18 109/63 92 09/04/16 04:15 Nasal Cannula 1.0 09/02/16 13:00 30 Intake and Output 09/03/16 09/03/16 09/04/16 15:00 23:00 07:00 Intake Total 383.33 ml 836.67 ml 770 ml Output Total 320 ml 510 ml 250 ml Balance 63.33 ml 326.67 ml 520 ml Exam HEENT exam is; supple neck, no JVD. No lymphadenopathy. Midline trachea. No thyromegaly. Has a right intraocular lens implant. Patient condition is fair. Chest examination AL: Diminished breath sounds right upper lobe, rest of the lung cunha are clear. S1-S2 audible, no murmurs. Regular rhythm. Abdomen examination; protuberant, nontender. No organomegaly. Bowel sounds audible. Extremity exam is; no peripheral edema. Pulses 1+ bilaterally. No clubbing. [employer] examination; no focal deficit. Results Result Diagram: 09/04/16 0601 09/04/16 0601 Results 24 hrs Laboratory Tests Test 09/04/16 06:01 White Blood Count 4.3 L Red Blood Count 2.93 L Hemoglobin 9.1 L Hematocrit 29.0 L Mean Corpuscular Volume 99.0 Mean Corpuscular Hemoglobin 31.1 Mean Corpuscular Hemoglobin Concent 31.4 L Red Cell Distribution Width 14.4 Platelet Count 43 L Mean Platelet Volume 11.1 H Neutrophils % 70.0 Band Neutrophils % 15.0 H Lymphocytes % 12.0 L Eosinophils % 3.0 Neutrophils # 3.0 Lymphocytes # 0.5 L Eosinophils # 0.1 Platelet Estimate PLT APPEAR DECREASED Sodium Level 138 Potassium Level 3.7 Chloride Level 103 Carbon Dioxide Level 28 Anion Gap 11 Blood Urea Nitrogen 20 Creatinine 0.79 Glucose Level 90 Calcium Level 8.3 L Total Bilirubin 0.6 Direct Bilirubin 0.00 Indirect Bilirubin 0.6 Aspartate Amino Transf (AST/SGOT) 19 Alanine Aminotransferase (ALT/SGPT) 20 Alkaline Phosphatase 80 Total Protein 6.2 Albumin 3.0 L Globulin 3.20 Albumin/Globulin Ratio 0.93 Medications Medications Current Medications Pantoprazole (Protonix Iv) 40 mg DAILY IV Last administered on 09/04/16 08:27 ; Admin Dose 40 MG; Start 08/31/16 at 15:00 IV Flush 10 ml 10 ml PRN PRN IV IV PROTOCOL; Start 08/31/16 at 18:30 Meropenem (Merrem 1 Gm/100 ml (Pmx)) 100 ml @ 200 mls/hr Q8 IVPB Last administered on 09/04/16 14:31; Admin Dose 200 MLS/HR; Start 09/01/16 at 14:00 Morphine Sulfate 2 mg 2 mg Q2H PRN IV PAIN Last administered on 09/04/16 14:31 ; Admin Dose 2 MG; Start 09/02/16 at 08:30 Voriconazole/ Sodium Chloride (Vfend Iv/NS) 100 ml @ 50 mls/hr Q12 IVPB Last administered on 09/04/16 08:27; Admin Dose 50 MLS/HR; Start 09/02/16 at 10:00 Metoprolol Tartrate 5 mg 5 mg Q4H PRN IV ELEVATED HEART RATE Last administered on 09/02/16 17:09; Admin Dose 5 MG; Start 09/02/16 at 17:30 Dextrose/Sodium Chloride (D5-1/2ns) 1,000 ml @ 40 mls/hr Q24H IV Last administered on 09/03/16 10:40; Admin Dose 40 MLS/HR; Start 09/03/16 at 10:30 DAHIANA BABCOCK MD Sep 04, 2016 16:40
[2016-09-04 19:54] LABS: TB-NIL <0.00 IU/mL
--- NOTE | 2016-09-04 20:57 | CONS ---
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 - f/u respiratory panel by NAAT, mycoplasma by NAAT, procalcitonin, 1,3-beta-D- glucan, cocci serology, aspergillus antigen and antibody. HIV was tested negative in 2013. - await records from [place] - droplet precautions until respiratory viruses are ruled out by NAAT (still pending) - Above d/w Dr. Tesfaey Problems: Consultation Date/Type/Reason Admit Date/Time Sep 01, 2016 at 14:47 Initial Consult Date 09/01/16 Type of Consultation: Infectious Disease Referring Provider: MARYAM FARMER MD 24 HR Interval Summary Free Text/Dictation C/o generalized body pain rating 7/10 and persistent cough. States feels "slightly better". Denies n/v/d, dysuria. Afebrile and clinically unchanged per d/w [place]. Exam/Review of Systems Vital Signs Vitals Vital Signs Date Time Temp Pulse Resp B/P Pulse Ox O2 Delivery O2 Flow Rate FiO2 09/04/16 20:00 91 09/04/16 17:35 2.0 09/04/16 16:26 98.6 18 109/63 92 09/04/16 08:27 Nasal Cannula 09/02/16 13:00 30 Intake and Output 09/03/16 09/03/16 09/04/16 14:59 22:59 06:59 Intake Total 343.33 ml 836.67 ml 810 ml Output Total 320 ml 460 ml 300 ml Balance 23.33 ml 376.67 ml 510 ml Exam Constitutional: alert, obese, oriented, well developed Head: atraumatic, normocephalic Neck: supple Respiratory: congested cough, diminished breath sounds (RUL), normal air movement Cardiovascular: nl pulses, regular rate and rhythm Gastrointestinal: non-tender, soft Musculoskeletal: nl extremities to inspection Extremities: No clubbing, No cyanosis, No edema Neurological: nl mental status Skin: nl turgor, No rash or lesions Results Result Diagram: 09/04/16 0609/04/16 06 Results 24 hrs Laboratory Tests Test 09/04/16 06:01 09/04/16 18:58 White Blood Count 4.3 L Red Blood Count 2.93 L Hemoglobin 9.1 L Hematocrit 29.0 L Mean Corpuscular Volume 99.0 Mean Corpuscular Hemoglobin 31.1 Mean Corpuscular Hemoglobin Concent 31.4 L Red Cell Distribution Width 14.4 Platelet Count 43 L Mean Platelet Volume 11.1 H Neutrophils % 70.0 Band Neutrophils % 15.0 H Lymphocytes % 12.0 L Eosinophils % 3.0 Neutrophils # 3.0 Lymphocytes # 0.5 L Eosinophils # 0.1 Platelet Estimate PLT APPEAR DECREASED Sodium Level 138 Potassium Level 3.7 Chloride Level 103 Carbon Dioxide Level 28 Anion Gap 11 Blood Urea Nitrogen 20 Creatinine 0.79 Glucose Level 90 Calcium Level 8.3 L Total Bilirubin 0.6 Direct Bilirubin 0.00 Indirect Bilirubin 0.6 Aspartate Amino Transf (AST/SGOT) 19 Alanine Aminotransferase (ALT/SGPT) 20 Alkaline Phosphatase 80 Total Protein 6.2 Albumin 3.0 L Globulin 3.20 Albumin/Globulin Ratio 0.93 Magnesium Level 1.3 L Medications Medications Current Medications Pantoprazole (Protonix Iv) 40 mg DAILY IV Last administered on 09/04/16 08:27 ; Admin Dose 40 MG; Start 08/31/16 at 15:00 IV Flush 10 ml 10 ml PRN PRN IV IV PROTOCOL; Start 08/31/16 at 18:30 Meropenem (Merrem 1 Gm/100 ml (Pmx)) 100 ml @ 200 mls/hr Q8 IVPB Last administered on 09/04/16 14:31; Admin Dose 200 MLS/HR; Start 09/01/16 at 14:00 Morphine Sulfate 2 mg 2 mg Q2H PRN IV PAIN Last administered on 09/04/16 19:24 ; Admin Dose 2 MG; Start 09/02/16 at 08:30 Voriconazole/ Sodium Chloride (Vfend Iv/NS) 100 ml @ 50 mls/hr Q12 IVPB Last administered on 09/04/16 08:27; Admin Dose 50 MLS/HR; Start 09/02/16 at 10:00 Metoprolol Tartrate 5 mg 5 mg Q4H PRN IV ELEVATED HEART RATE Last administered on 09/02/16 17:09; Admin Dose 5 MG; Start 09/02/16 at 17:30 Dextrose/Sodium Chloride (D5-1/2ns) 1,000 ml @ 40 mls/hr Q24H IV Last administered on 09/03/16 10:40; Admin Dose 40 MLS/HR; Start 09/03/16 at 10:30 Procedures Procedures CXR 09/02/16: Stable right upper lobe consolidation and volume loss with shift of the mediastinum towards the right. ULKE TESFAYE M.D. 09/10/16 2349: Assessment/Plan Assessment/Plan Additional Assessment/Plan Brien attestation: I discussed the management with ELIAZAR Love and agree with above. Exam/Review of Systems Results Result Diagram: 09/04/1601 09/04/16 0601 STEPHEN LOVE NP Sep 04, 2016 20:56 LUKE TESFAYE M.D. Sep 10, 2016 23:49
[2016-09-05] VITALS (11 sets, daily range): BP systolic 127–137; BP diastolic 77–84; PULSE 90–103; RESP 19–20
[2016-09-05] MEDS: morphine 2 MG INJ IV PRN ×7 (00:18→15:25)
[2016-09-05 05:19] LABS: CRYPTOCOCCAL ANTIGEN - SOURCE Serum
[2016-09-05] MEDS: MEROPENEM 1 GM/100 ML (PMX) 100 ML IVPB SCH ×3 (06:47→23:53)
[2016-09-05 07:52] LABS: ADD SCAN DIFF NO
[2016-09-05 07:53] LABS: ABNORMAL IP MESSAGE 1; HEMATOCRIT 29.4 % (42.0-52.0); HEMOGLOBIN 9.1 g/dl (14.0-18.0); MEAN CORPUSCULAR HEMOGLOBIN 30.6 pg (29.0-33.0); MEAN PLATELET VOLUME 12.1 fl (7.4-10.4); PLATELET COUNT 47 10^3/UL (140-415); RED BLOOD COUNT 2.97 10^6/ul (4.70-6.10); RED CELL DISTRIBUTION WIDTH 14.4 % (11.5-14.5); WHITE BLOOD COUNT 3.2 10^3/ul (4.8-10.8)
[2016-09-05 08:07] LABS: CALCIUM 8.3 mg/dl (8.4-10.2); CREATININE 0.82 mg/dl (0.61-1.24); MAGNESIUM 1.2 mg/dl (1.7-2.5); POTASSIUM 3.6 mmol/L (3.5-5.1)
[2016-09-05] MEDS: PANTOPRAZOLE 40 MG INJ IV SCH (09:11)
[2016-09-05] MEDS: SOD CHLORIDE 0.9% IVPB SCH ×2 (09:11→21:08)
[2016-09-05] MEDS: VORICONAZOLE IVPB SCH ×2 (09:11→21:08)
[2016-09-05] MEDS: DEXTROSE 5%-0.45% NACL 1,000 ML IV SCH (09:12)
--- NOTE | 2016-09-05 10:21 | CONS ---
Date/Time of Note Date/Time of Note DATE: 09/05/16 TIME: 10:19 Assessment/Plan Assessment/Plan Additional Assessment/Plan Assessment recommendations; next 1. Patient admitted for hypoxemic and hypercapnic respiratory failure no extubated several days ago transferred to telemetry unit with markedly improved clinical status. 2. Metastatic lung cancer with atelectasis of the right upper lobe likely from underlying endobronchial lesion. 3. Underlying obesity. 4. Likely some element of pneumonia. Recommendations continue current treatment. Consultation Date/Type/Reason Admit Date/Time Sep 01, 2016 at 14:47 Initial Consult Date 09/01/16 Type of Consultation: Pulmonary Referring Provider: MARYAM FARMER MD 24 HR Interval Summary Free Text/Dictation Patient condition stable. Remains awake and alert. Complains of very minimal shortness of breath and chest congestion. Denies any chest pain, fever chills hemoptysis. General exam; elderly male, currently in no distress appears overweight. Exam/Review of Systems Vital Signs Vitals Vital Signs Date Time Temp Pulse Resp B/P Pulse Ox O2 Delivery O2 Flow Rate FiO2 09/05/16 08:25 90 09/05/16 07:24 98.9 20 127/77 93 09/04/16 19:45 Nasal Cannula 1.0 09/02/16 13:00 30 Intake and Output 09/04/16 09/04/16 09/05/16 15:00 23:00 07:00 Intake Total 640 ml Output Total 325 ml Balance 315 ml Exam H EENT exam; supple neck, no JVD. No lymphadenopathy. Midline trachea. No thyromegaly. Pharynx is clear. Chest examination CA: Diminished but clear breath sounds. S1-S2 audible, no murmurs. Regular rhythm. Abdomen examination; soft, protuberant. Nontender. No organomegaly. Bowel sounds audible. Extremity examination; no peripheral edema. No clubbing. Pulses 1+ bilaterally. 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 Results Result Diagram: 09/05/16 0600 09/05/16 0600 Results 24 hrs Laboratory Tests Test 09/04/16 18:58 09/05/16 06:00 Magnesium Level 1.3 L 1.2 L White Blood Count 3.2 #L Red Blood Count 2.97 L Hemoglobin 9.1 L Hematocrit 29.4 L Mean Corpuscular Volume 99.0 Mean Corpuscular Hemoglobin 30.6 Mean Corpuscular Hemoglobin Concent 31.0 L Red Cell Distribution Width 14.4 Platelet Count 47 L Mean Platelet Volume 12.1 H Sodium Level 136 Potassium Level 3.6 Chloride Level 101 Carbon Dioxide Level 30 Anion Gap 9 Blood Urea Nitrogen 23 H Creatinine 0.82 Glucose Level 117 Calcium Level 8.3 L Medications Medications Current Medications Pantoprazole (Protonix Iv) 40 mg DAILY IV Last administered on 09/05/16 09:11 ; Admin Dose 40 MG; Start 08/31/16 at 15:00 IV Flush 10 ml 10 ml PRN PRN IV IV PROTOCOL; Start 08/31/16 at 18:30 Meropenem (Merrem 1 Gm/100 ml (Pmx)) 100 ml @ 200 mls/hr Q8 IVPB Last administered on 09/05/16 06:47; Admin Dose 200 MLS/HR; Start 09/01/16 at 14:00 Morphine Sulfate 2 mg 2 mg Q2H PRN IV PAIN Last administered on 09/05/16 09:12 ; Admin Dose 2 MG; Start 09/02/16 at 08:30 Voriconazole/ Sodium Chloride (Vfend Iv/NS) 100 ml @ 50 mls/hr Q12 IVPB Last administered on 09/05/16 09:11; Admin Dose 50 MLS/HR; Start 09/02/16 at 10:00 Metoprolol Tartrate 5 mg 5 mg Q4H PRN IV ELEVATED HEART RATE Last administered on 09/02/16 17:09; Admin Dose 5 MG; Start 09/02/16 at 17:30 Dextrose/Sodium Chloride (D5-1/2ns) 1,000 ml @ 40 mls/hr Q24H IV Last administered on 09/05/16 09:12; Admin Dose 40 MLS/HR; Start 09/03/16 at 10:30 ISMA CUTLER Sep 05, 2016 10:21
[2016-09-05 10:34] LABS: EOSINOPHILS # 0.1 10^3/ul (0.0-0.5); LYMPHOCYTES # 0.6 10^3/ul (0.8-2.9); MONOCYTE # 0.2 10^3/ul (0.3-0.9); NEUTROPHIL # 2.1 10^3/ul (1.6-7.5); PLATELET ESTIMATE PLT APPEAR DECREASED
[2016-09-05] MEDS ORDERED: MAGNESIUM SULFATE 3 GM in SOD CHLORIDE 0.9% 100 ML IVPB ONE (17:00)
[2016-09-05] MEDS: morphine 4 MG/ML VIAL IV PRN ×2 (18:11→22:34)
--- NOTE | 2016-09-05 19:23 | CONS ---
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 - f/u respiratory panel by NAAT, mycoplasma by NAAT, procalcitonin, 1,3-beta-D- glucan, cocci serology, aspergillus antigen and antibody. HIV was tested negative in 2013. - await records from [place] - droplet precautions until respiratory viruses are ruled out by NAAT (still pending) - Management d/w pt and MARIA ELENA Evans - Above d/w Dr. Fraga Problems: Consultation Date/Type/Reason Admit Date/Time Sep 01, 2016 at 14:47 Initial Consult Date 09/01/16 Type of Consultation: Infectious Disease Referring Provider: MARYAM FARMER MD 24 HR Interval Summary Free Text/Dictation Diet advanced to mechanical soft; magnesium was replaced; morphine dose was increased; still with persistent cough; Pt requesting to ambulate and PT eval was ordered per d/w MARIA ELENA Evans. Pt reports has been unable to sleep the past three nights d/t persistent cough; has "brown specks" in phlegm. C/o generalized body aches that worsens during coughing spells but pain is more tolerable since pain med dose was increased. Denies SOB, n/v/d, dysuria, hemoptysis. Exam/Review of Systems Vital Signs Vitals Vital Signs Date Time Temp Pulse Resp B/P Pulse Ox O2 Delivery O2 Flow Rate FiO2 09/05/16 18:33 1.0 09/05/16 16:14 96 09/05/16 16:00 98.2 19 137/83 93 09/05/16 08:00 Nasal Cannula 09/02/16 13:00 30 Intake and Output 09/04/16 09/04/16 09/05/16 15:00 23:00 07:00 Intake Total 640 ml Output Total 325 ml Balance 315 ml Exam Constitutional: alert, obese, oriented, well developed Head: atraumatic, normocephalic Neck: supple, non-tender Respiratory: congested cough, diminished breath sounds (RUL), normal air movement Cardiovascular: nl pulses, regular rate and rhythm Gastrointestinal: non-tender, soft Genitourinary- Male: other (Roth[place] cath intact with clear mayra urine) Musculoskeletal: nl extremities to inspection Extremities: No clubbing, No cyanosis, No edema Neurological: nl mental status Skin: nl turgor, No rash or lesions Results Result Diagram: 09/05/16 0600 09/05/16 0600 Results 24 hrs Laboratory Tests Test 09/05/16 06:00 White Blood Count 3.2 #L Red Blood Count 2.97 L Hemoglobin 9.1 L Hematocrit 29.4 L Mean Corpuscular Volume 99.0 Mean Corpuscular Hemoglobin 30.6 Mean Corpuscular Hemoglobin Concent 31.0 L Red Cell Distribution Width 14.4 Platelet Count 47 L Mean Platelet Volume 12.1 H Neutrophils % 67.0 Band Neutrophils % 6.0 H Lymphocytes % 20.0 Monocytes % 5.0 Eosinophils % 2.0 Neutrophils # 2.1 Lymphocytes # 0.6 L Monocytes # 0.2 L Eosinophils # 0.1 Platelet Estimate PLT APPEAR DECREASED Sodium Level 136 Potassium Level 3.6 Chloride Level 101 Carbon Dioxide Level 30 Anion Gap 9 Blood Urea Nitrogen 23 H Creatinine 0.82 Glucose Level 117 Calcium Level 8.3 L Magnesium Level 1.2 L Medications Medications Current Medications Pantoprazole (Protonix Iv) 40 mg DAILY IV Last administered on 09/05/16 09:11 ; Admin Dose 40 MG; Start 08/31/16 at 15:00 IV Flush 10 ml 10 ml PRN PRN IV IV PROTOCOL; Start 08/31/16 at 18:30 Meropenem 100 ml @ 200 mls/hr Q8 IVPB Last administered on 09/05/16 13:52; Admin Dose 200 MLS/HR; Start 09/01/16 at 14:00 Voriconazole/ Sodium Chloride (Vfend Iv/NS) 100 ml @ 50 mls/hr Q12 IVPB Last administered on 09/05/16 09:11; Admin Dose 50 MLS/HR; Start 09/02/16 at 10:00 Metoprolol Tartrate 5 mg 5 mg Q4H PRN IV ELEVATED HEART RATE Last administered on 09/02/16 17:09; Admin Dose 5 MG; Start 09/02/16 at 17:30 Dextrose/Sodium Chloride (D5-1/2ns) 1,000 ml @ 40 mls/hr Q24H IV Last administered on 09/05/16 09:12; Admin Dose 40 MLS/HR; Start 09/03/16 at 10:30 Morphine Sulfate 4 mg 4 mg Q3 PRN IV PAIN Last administered on 09/05/16 18:11 ; Admin Dose 4 MG; Start 09/05/16 at 17:00 Magnesium Sulfate/ Sodium Chloride (Magnesium Sulfate/NS) 106 ml @ 35.333 mls/ hr ONCE ONCE IVPB Last administered on 09/05/16 18:11; Admin Dose 35.333 MLS/ HR; Start 09/05/16 at 17:00; Stop 09/05/16 at 19:59 Morphine Sulfate (Ms Contin (Er)) 30 mg BID PO ; Start 09/05/16 at 21:00 Procedures Procedures CXR 09/02/16: Stable right upper lobe consolidation and volume loss with shift of the mediastinum towards the right. STEPHEN LOVE NP Sep 05, 2016 19:23
--- NOTE | 2016-09-05 19:27 | PN ---
Date/Time of Note Date/Time of Note DATE: 09/05/16 TIME: 19:26 Assessment/Plan VTE Prophylaxis VTE Prophylaxis Intervention: other Lines/Catheters [facility] PICC Line Urinary Cath still in place: Yes Assessment/Plan Assessment/Plan - Severe sepsis due to pneumonia/bronchitis - per ID- Dr Tesfaye - Advanced non-small cell lung CA, s/p chemo - per dr Slaughter in oncology - Pancytopenia due to chemotherapy - advanced non-small cell lung CA, on biweekly chemotherapy infusion x2 years - h/o fungal pneumonia, on maintenance voriconazole - h/o post-obstructive pneumonia - h/o HTN, CAD, hyperlipidemia - h/o paroxysmal A fib - h/o DVT in LUE - h/o hypothyroidism - Hypomagnesium- replet magnesium - am Mag level am - Hypokalemia- resolved Further treatment depends upon patient's clnical course. Total critical care time spent 30 mins. Plan of care dw Dr Lincoln/staff Subjective 24 Hr Interval Summary Eyes: no complaints ENT: no complaints Respiratory: no complaints Cardiovascular: no complaints Gastrointestinal: no complaints Genitourinary: no complaints Endocrine: no complaints Exam/Review of Systems Vital Signs Vitals Vital Signs Date Time Temp Pulse Resp B/P Pulse Ox O2 Delivery O2 Flow Rate FiO2 09/05/16 18:33 1.0 09/05/16 16:14 96 09/05/16 16:00 98.2 19 137/83 93 09/05/16 08:00 Nasal Cannula 09/02/16 13:00 30 Intake and Output 09/04/16 09/04/16 09/05/16 15:00 23:00 07:00 Intake Total 640 ml Output Total 325 ml Balance 315 ml Exam Constitutional: alert Head: atraumatic Eyes: EOMI ENMT: nl external ears & nose Neck: non-tender Respiratory: diminished breath sounds Cardiovascular: nl pulses Gastrointestinal: other, soft Musculoskeletal: nl extremities to inspection Neurological: nl mental status, nl speech Lymph: nontender Results Result Diagram: 09/05/16 0600 09/05/16 0600 Results 24 hrs Laboratory Tests Test 09/05/16 06:00 White Blood Count 3.2 #L Red Blood Count 2.97 L Hemoglobin 9.1 L Hematocrit 29.4 L Mean Corpuscular Volume 99.0 Mean Corpuscular Hemoglobin 30.6 Mean Corpuscular Hemoglobin Concent 31.0 L Red Cell Distribution Width 14.4 Platelet Count 47 L Mean Platelet Volume 12.1 H Neutrophils % 67.0 Band Neutrophils % 6.0 H Lymphocytes % 20.0 Monocytes % 5.0 Eosinophils % 2.0 Neutrophils # 2.1 Lymphocytes # 0.6 L Monocytes # 0.2 L Eosinophils # 0.1 Platelet Estimate PLT APPEAR DECREASED Sodium Level 136 Potassium Level 3.6 Chloride Level 101 Carbon Dioxide Level 30 Anion Gap 9 Blood Urea Nitrogen 23 H Creatinine 0.82 Glucose Level 117 Calcium Level 8.3 L Magnesium Level 1.2 L Medications Medications Current Medications Pantoprazole (Protonix Iv) 40 mg DAILY IV Last administered on 09/05/16 09:11 ; Admin Dose 40 MG; Start 08/31/16 at 15:00 IV Flush 10 ml 10 ml PRN PRN IV IV PROTOCOL; Start 08/31/16 at 18:30 Meropenem 100 ml @ 200 mls/hr Q8 IVPB Last administered on 09/05/16 13:52; Admin Dose 200 MLS/HR; Start 09/01/16 at 14:00 Voriconazole/ Sodium Chloride (Vfend Iv/NS) 100 ml @ 50 mls/hr Q12 IVPB Last administered on 09/05/16 09:11; Admin Dose 50 MLS/HR; Start 09/02/16 at 10:00 Metoprolol Tartrate 5 mg 5 mg Q4H PRN IV ELEVATED HEART RATE Last administered on 09/02/16 17:09; Admin Dose 5 MG; Start 09/02/16 at 17:30 Dextrose/Sodium Chloride (D5-1/2ns) 1,000 ml @ 40 mls/hr Q24H IV Last administered on 09/05/16 09:12; Admin Dose 40 MLS/HR; Start 09/03/16 at 10:30 Morphine Sulfate 4 mg 4 mg Q3 PRN IV PAIN Last administered on 09/05/16 18:11 ; Admin Dose 4 MG; Start 09/05/16 at 17:00 Magnesium Sulfate/ Sodium Chloride (Magnesium Sulfate/NS) 106 ml @ 35.333 mls/ hr ONCE ONCE IVPB Last administered on 09/05/16 18:11; Admin Dose 35.333 MLS/ HR; Start 09/05/16 at 17:00; Stop 09/05/16 at 19:59 Morphine Sulfate (Ms Contin (Er)) 30 mg BID PO ; Start 09/05/16 at 21:00 TRAMAINE ELLSWORTH Sep 05, 2016 19:26 TRAMAINE ELLSWORTH Sep 05, 2016 19:26
[2016-09-05] MEDS: morphine (ER) 30 MG TAB PO SCH (21:08)
--- NOTE | 2016-09-05 21:51 | CONS ---
Date/Time of Note Date/Time of Note DATE: 09/05/16 TIME: 21:50 Assessment/Plan Assessment/Plan Chief Complaint/Hosp Course metastatic lung CANCER, NSCLC - ON CHEMO PANCYTOPENIA POST CHEMO Hypoxemic respiratory failure, possibly secondary to a reaction to chemotherapy. History of coronary artery disease. History of chronic obstructive pulmonary disease PLAN: Continue broad-spectrum antibiotics, currently on Voriconazole, meropenem and vancomycin.- PER ID WOULD NARROW COVERAGE IV fluids. Deep venous thrombosis and gastrointestinal prophylaxis. chemo on hold Problems: Consultation Date/Type/Reason Admit Date/Time Sep 01, 2016 at 14:47 Initial Consult Date 09/01/16 Type of Consultation: HEMEON Referring Provider: MARYAM FARMER MD 24 HR Interval Summary Free Text/Dictation ALL NOTED NO NEW EVENTS FELLING BETTER Exam/Review of Systems Vital Signs Vitals Vital Signs Date Time Temp Pulse Resp B/P Pulse Ox O2 Delivery O2 Flow Rate FiO2 09/05/16 21:00 103 09/05/16 20:32 97.9 20 130/81 93 09/05/16 18:33 1.0 09/05/16 08:00 Nasal Cannula 09/02/16 13:00 30 Intake and Output 09/04/16 09/04/16 09/05/16 15:00 23:00 07:00 Intake Total 640 ml Output Total 325 ml Balance 315 ml Exam Constitutional: alert Head: atraumatic Eyes: EOMI ENMT: nl external ears & nose Neck: non-tender Respiratory: diminished breath sounds Cardiovascular: nl pulses Gastrointestinal: other, soft Musculoskeletal: nl extremities to inspection Neurological: nl mental status, nl speech Lymph: nontender Results Result Diagram: 09/05/16 0600 09/05/16 0600 Results 24 hrs Laboratory Tests Test 09/05/16 06:00 White Blood Count 3.2 #L Red Blood Count 2.97 L Hemoglobin 9.1 L Hematocrit 29.4 L Mean Corpuscular Volume 99.0 Mean Corpuscular Hemoglobin 30.6 Mean Corpuscular Hemoglobin Concent 31.0 L Red Cell Distribution Width 14.4 Platelet Count 47 L Mean Platelet Volume 12.1 H Neutrophils % 67.0 Band Neutrophils % 6.0 H Lymphocytes % 20.0 Monocytes % 5.0 Eosinophils % 2.0 Neutrophils # 2.1 Lymphocytes # 0.6 L Monocytes # 0.2 L Eosinophils # 0.1 Platelet Estimate PLT APPEAR DECREASED Sodium Level 136 Potassium Level 3.6 Chloride Level 101 Carbon Dioxide Level 30 Anion Gap 9 Blood Urea Nitrogen 23 H Creatinine 0.82 Glucose Level 117 Calcium Level 8.3 L Magnesium Level 1.2 L Medications Medications Current Medications Pantoprazole (Protonix Iv) 40 mg DAILY IV Last administered on 09/05/16 09:11 ; Admin Dose 40 MG; Start 08/31/16 at 15:00 IV Flush 10 ml 10 ml PRN PRN IV IV PROTOCOL; Start 08/31/16 at 18:30 Meropenem 100 ml @ 200 mls/hr Q8 IVPB Last administered on 09/05/16 13:52; Admin Dose 200 MLS/HR; Start 09/01/16 at 14:00 Voriconazole/ Sodium Chloride (Vfend Iv/NS) 100 ml @ 50 mls/hr Q12 IVPB Last administered on 09/05/16 21:08; Admin Dose 50 MLS/HR; Start 09/02/16 at 10:00 Metoprolol Tartrate 5 mg 5 mg Q4H PRN IV ELEVATED HEART RATE Last administered on 09/02/16 17:09; Admin Dose 5 MG; Start 09/02/16 at 17:30 Dextrose/Sodium Chloride (D5-1/2ns) 1,000 ml @ 40 mls/hr Q24H IV Last administered on 09/05/16 09:12; Admin Dose 40 MLS/HR; Start 09/03/16 at 10:30 Morphine Sulfate (morphine) 4 mg Q3 PRN IV PAIN Last administered on 09/05/16 18:11; Admin Dose 4 MG; Start 09/05/16 at 17:00 Morphine Sulfate (Ms Contin (Er)) 30 mg BID PO Last administered on 09/05/16 21:08; Admin Dose 30 MG; Start 09/05/16 at 21:00 DAHIANA BABCOCK MD Sep 05, 2016 21:51
[2016-09-06] VITALS (14 sets, daily range): BP systolic 98–184; BP diastolic 72–99; PULSE 93–112; RESP 17–20
[2016-09-06] MEDS: morphine 4 MG/ML VIAL IV PRN ×7 (03:50→23:55)
[2016-09-06] MEDS: MEROPENEM 1 GM/100 ML (PMX) 100 ML IVPB SCH ×3 (06:08→22:41)
[2016-09-06 06:35] LABS: ADD SCAN DIFF NO
[2016-09-06 06:42] LABS: ABNORMAL IP MESSAGE 1; BASOPHILS % 0.4 % (0.0-2.0); EOSINOPHILS # 0.2 10^3/ul (0.0-0.5); EOSINOPHILS % 5.6 % (0.0-7.0); HEMATOCRIT 27.9 % (42.0-52.0); HEMOGLOBIN 8.9 g/dl (14.0-18.0); LYMPHOCYTES # 0.8 10^3/ul (0.8-2.9); LYMPHOCYTES % 31.1 % (15.0-51.0); MEAN CORPUSCULAR HEMOGLOBIN 31.4 pg (29.0-33.0); MEAN CORPUSCULAR HGB CONC 31.9 g/dl (32.0-37.0); MEAN CORPUSCULAR VOLUME 98.6 fl (82.0-101.0); MONOCYTE # 0.1 10^3/ul (0.3-0.9); MONOCYTES % 4.8 % (0.0-11.0); NEUTROPHIL # 1.6 10^3/ul (1.6-7.5); NEUTROPHILS % 57.4 % (39.0-77.0); PLATELET COUNT 45 10^3/UL (140-415); RED BLOOD COUNT 2.83 10^6/ul (4.70-6.10); RED CELL DISTRIBUTION WIDTH 14.2 % (11.5-14.5); WHITE BLOOD COUNT 2.7 10^3/ul (4.8-10.8)
[2016-09-06 06:46] LABS: POTASSIUM 3.7 mmol/L (3.5-5.1)
[2016-09-06 06:49] LABS: CREATININE 0.78 mg/dl (0.61-1.24)
[2016-09-06 06:50] LABS: CALCIUM 8.3 mg/dl (8.4-10.2); MAGNESIUM 1.5 mg/dl (1.7-2.5)
[2016-09-06 07:02] LABS: CALCIUM 8.2 mg/dl (8.4-10.2); CREATININE 0.79 mg/dl (0.61-1.24); MAGNESIUM 1.5 mg/dl (1.7-2.5); POTASSIUM 3.9 mmol/L (3.5-5.1)
[2016-09-06] MEDS: morphine (ER) 30 MG TAB PO SCH ×2 (08:18→21:22)
[2016-09-06] MEDS: PANTOPRAZOLE 40 MG INJ IV SCH (08:18)
[2016-09-06] MEDS: SOD CHLORIDE 0.9% IVPB SCH ×2 (08:19→20:25)
[2016-09-06] MEDS: VORICONAZOLE IVPB SCH ×2 (08:19→20:25)
--- NOTE | 2016-09-06 12:52 | CONS ---
Date/Time of Note Date/Time of Note DATE: 09/06/16 TIME: 12:50 Assessment/Plan Assessment/Plan Additional Assessment/Plan Assessment recommendations; 1. Patient admitted for hypercapnic and hypoxemic respiratory failure no status post extubation several days ago. 2. Likely some element of pneumonia especially involving the right upper lobe. Currently on appropriate antibiotic regimen. 3. Metastatic lung cancer. 4. Morbid obesity. 5. Possible underlying sleep apnea. Continue current treatment. Patient will need to have portable oxygen at home once he is discharged. Consultation Date/Type/Reason Admit Date/Time Sep 01, 2016 at 14:47 Initial Consult Date 09/01/16 Type of Consultation: Pulmonary Referring Provider: MARYAM FARMER MD 24 HR Interval Summary Free Text/Dictation Patient condition stable. Complains of shortness of breath on exertion only but denies any dyspnea at rest. Complains of scant cough without any hemoptysis or sputum production. Denies any chest pain fever chills. Exam; middle-aged male, appears overweight currently in no distress sitting in a chair by bedside. Eating lunch. Exam/Review of Systems Vital Signs Vitals Vital Signs Date Time Temp Pulse Resp B/P Pulse Ox O2 Delivery O2 Flow Rate FiO2 09/06/16 12:05 112 09/06/16 11:43 98.2 19 142/90 91 09/06/16 02:53 1.0 09/05/16 20:00 Nasal Cannula 09/02/16 13:00 30 Intake and Output 09/05/16 09/05/16 09/06/16 15:00 23:00 07:00 Intake Total 1280 ml 950 ml 1220 ml Output Total 550 ml 700 ml 850 ml Balance 730 ml 250 ml 370 ml Exam HEENT exam is; supple neck, no JVD. No lymphadenopathy. Midline trachea. Pharynx is clear. Pupils are midsize and reactive to light. No neck masses. Chest examination IA: Diminished but clear breath sounds. No added sound. S1- S2 audible, no murmurs. Regular rhythm. Abdomen examination; soft, protuberant. Nontender. No organomegaly. Bowel sounds audible. Extremity examination; no peripheral edema. Pulses 1+ bilaterally. INFRASTRUCTURE MANAGER examination; no focal deficit. Results Result Diagram: 09/06/16 0610 09/06/16 0610 Results 24 hrs Laboratory Tests Test 09/06/16 06:10 09/06/16 09:05 White Blood Count 2.7 L Red Blood Count 2.83 L Hemoglobin 8.9 L Hematocrit 27.9 L Mean Corpuscular Volume 98.6 Mean Corpuscular Hemoglobin 31.4 Mean Corpuscular Hemoglobin Concent 31.9 L Red Cell Distribution Width 14.2 Platelet Count 45 L Mean Platelet Volume 12.0 H Neutrophils % 57.4 Lymphocytes % 31.1 Monocytes % 4.8 Eosinophils % 5.6 Basophils % 0.4 Nucleated Red Blood Cells % 0.0 Neutrophils # 1.6 Lymphocytes # 0.8 Monocytes # 0.1 L Eosinophils # 0.2 Basophils # 0.0 Nucleated Red Blood Cells # 0.0 Sodium Level 136 Potassium Level 3.9 Chloride Level 100 Carbon Dioxide Level 29 Anion Gap 11 Blood Urea Nitrogen 19 Creatinine 0.79 Glucose Level 109 Calcium Level 8.2 L Magnesium Level 1.5 L Lab Scanned Report REFERENCE LAB Medications Medications Current Medications Pantoprazole (Protonix Iv) 40 mg DAILY IV Last administered on 09/06/16 08:18 ; Admin Dose 40 MG; Start 08/31/16 at 15:00 IV Flush 10 ml 10 ml PRN PRN IV IV PROTOCOL; Start 08/31/16 at 18:30 Meropenem 100 ml @ 200 mls/hr Q8 IVPB Last administered on 09/06/16 06:08; Admin Dose 200 MLS/HR; Start 09/01/16 at 14:00 Voriconazole/ Sodium Chloride (Vfend Iv/NS) 100 ml @ 50 mls/hr Q12 IVPB Last administered on 09/06/16 08:19; Admin Dose 50 MLS/HR; Start 09/02/16 at 10:00 Metoprolol Tartrate 5 mg 5 mg Q4H PRN IV ELEVATED HEART RATE Last administered on 09/02/16 17:09; Admin Dose 5 MG; Start 09/02/16 at 17:30 Dextrose/Sodium Chloride (D5-1/2ns) 1,000 ml @ 40 mls/hr Q24H IV Last administered on 09/05/16 09:12; Admin Dose 40 MLS/HR; Start 09/03/16 at 10:30 Morphine Sulfate (morphine) 4 mg Q3 PRN IV PAIN Last administered on 09/06/16 09:57; Admin Dose 4 MG; Start 09/05/16 at 17:00 Morphine Sulfate (Ms Contin (Er)) 30 mg BID PO Last administered on 09/06/16t 08:18; Admin Dose 30 MG; Start 09/05/16 at 21:00 ISMA CUTLER Sep 06, 2016 12:52
--- NOTE | 2016-09-06 15:03 | CONS ---
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 - f/u rest respiratory panel by NAAT,(-ordered nursing to follow up) influenza pcrs were negative) mycoplasma by NAAT, procalcitonin, 1,3-pyhk-X-glucan, cocci serology, aspergillus antigen and antibody. HIV was tested negative in 2013. - still await records from [place] - droplet precautions until respiratory viruses are ruled out by NAAT (still pending) Problems: Consultation Date/Type/Reason Admit Date/Time Sep 01, 2016 at 14:47 Initial Consult Date 09/01/16 Type of Consultation: id Referring Provider: MARYAM FARMER MD Exam/Review of Systems Vital Signs Vitals Vital Signs Date Time Temp Pulse Resp B/P Pulse Ox O2 Delivery O2 Flow Rate FiO2 09/06/16 12:05 112 09/06/16 11:43 98.2 19 142/90 91 09/06/16 02:53 1.0 09/05/16 20:00 Nasal Cannula 09/02/16 13:00 30 Intake and Output 09/05/16 09/05/16 09/06/16 15:00 23:00 07:00 Intake Total 1280 ml 950 ml 1220 ml Output Total 550 ml 700 ml 850 ml Balance 730 ml 250 ml 370 ml Results Result Diagram: 09/06/16 0610 09/06/16 0610 Results 24 hrs Laboratory Tests Test 09/06/16 06:10 09/06/16 09:05 White Blood Count 2.7 L Red Blood Count 2.83 L Hemoglobin 8.9 L Hematocrit 27.9 L Mean Corpuscular Volume 98.6 Mean Corpuscular Hemoglobin 31.4 Mean Corpuscular Hemoglobin Concent 31.9 L Red Cell Distribution Width 14.2 Platelet Count 45 L Mean Platelet Volume 12.0 H Neutrophils % 57.4 Lymphocytes % 31.1 Monocytes % 4.8 Eosinophils % 5.6 Basophils % 0.4 Nucleated Red Blood Cells % 0.0 Neutrophils # 1.6 Lymphocytes # 0.8 Monocytes # 0.1 L Eosinophils # 0.2 Basophils # 0.0 Nucleated Red Blood Cells # 0.0 Sodium Level 136 Potassium Level 3.9 Chloride Level 100 Carbon Dioxide Level 29 Anion Gap 11 Blood Urea Nitrogen 19 Creatinine 0.79 Glucose Level 109 Calcium Level 8.2 L Magnesium Level 1.5 L Lab Scanned Report REFERENCE LAB Medications Medications Current Medications Pantoprazole (Protonix Iv) 40 mg DAILY IV Last administered on 09/06/16 08:18 ; Admin Dose 40 MG; Start 08/31/16 at 15:00 IV Flush 10 ml 10 ml PRN PRN IV IV PROTOCOL; Start 08/31/16 at 18:30 Meropenem 100 ml @ 200 mls/hr Q8 IVPB Last administered on 09/06/16 06:08; Admin Dose 200 MLS/HR; Start 09/01/16 at 14:00 Voriconazole/ Sodium Chloride (Vfend Iv/NS) 100 ml @ 50 mls/hr Q12 IVPB Last administered on 09/06/16 08:19; Admin Dose 50 MLS/HR; Start 09/02/16 at 10:00 Metoprolol Tartrate (Lopressor) 5 mg Q4H PRN IV ELEVATED HEART RATE Last administered on 09/02/16 17:09; Admin Dose 5 MG; Start 09/02/16 at 17:30 Morphine Sulfate (morphine) 4 mg Q3 PRN IV PAIN Last administered on 09/06/16 14:29; Admin Dose 4 MG; Start 09/05/16 at 17:00 Morphine Sulfate (Ms Contin (Er)) 30 mg BID PO Last administered on 09/06/16 08:18; Admin Dose 30 MG; Start 09/05/16 at 21:00 DELIO DIALLO MD Sep 06, 2016 15:03
--- NOTE | 2016-09-06 16:08 | PN ---
Date/Time of Note Date/Time of Note DATE: 09/06/16 TIME: 16:01 Assessment/Plan Lines/Catheters IV [facility] ([facility] PICC Line Urinary Cath still in place: Yes Assessment/Plan Assessment/Plan - Severe sepsis due to pneumonia/bronchitis - per ID- Dr Tesfaye - Advanced non-small cell lung CA, s/p chemo - per dr Slaughter in oncology - Pancytopenia due to chemotherapy - advanced non-small cell lung CA, on biweekly chemotherapy infusion x2 years - h/o fungal pneumonia, on maintenance voriconazole - h/o post-obstructive pneumonia - h/o HTN, CAD, hyperlipidemia - h/o paroxysmal A fib - h/o DVT in LUE - h/o hypothyroidism - Hypomagnesium- replet magnesium - am Mag level am - Hypokalemia- resolved Further treatment depends upon patient's clinical course.Plan of care dw Dr Lincoln/staff Exam/Review of Systems Vital Signs Vitals Vital Signs Date Time Temp Pulse Resp B/P Pulse Ox O2 Delivery O2 Flow Rate FiO2 09/06/16 12:05 112 09/06/16 11:43 98.2 19 142/90 91 09/06/16 02:53 1.0 09/05/16 20:00 Nasal Cannula 09/02/16 13:00 30 Intake and Output 09/05/16 09/05/16 09/06/16 15:00 23:00 07:00 Intake Total 1280 ml 950 ml 1220 ml Output Total 550 ml 700 ml 850 ml Balance 730 ml 250 ml 370 ml Exam Constitutional: alert, obese, oriented Psych: nl mood/affect Eyes: EOMI, PERRL, nl sclera ENMT: nl external ears & nose Neck: non-tender Respiratory: diminished breath sounds Cardiovascular: nl pulses Gastrointestinal: non-tender, soft Musculoskeletal: nl extremities to inspection Extremities: normal pulses Neurological: nl mental status, nl speech Skin: nl turgor Lymph: nontender Results Result Diagram: 09/06/16 0610 09/06/16 0610 Results 24 hrs Laboratory Tests Test 09/06/16 06:10 09/06/16 09:05 White Blood Count 2.7 L Red Blood Count 2.83 L Hemoglobin 8.9 L Hematocrit 27.9 L Mean Corpuscular Volume 98.6 Mean Corpuscular Hemoglobin 31.4 Mean Corpuscular Hemoglobin Concent 31.9 L Red Cell Distribution Width 14.2 Platelet Count 45 L Mean Platelet Volume 12.0 H Neutrophils % 57.4 Lymphocytes % 31.1 Monocytes % 4.8 Eosinophils % 5.6 Basophils % 0.4 Nucleated Red Blood Cells % 0.0 Neutrophils # 1.6 Lymphocytes # 0.8 Monocytes # 0.1 L Eosinophils # 0.2 Basophils # 0.0 Nucleated Red Blood Cells # 0.0 Sodium Level 136 Potassium Level 3.9 Chloride Level 100 Carbon Dioxide Level 29 Anion Gap 11 Blood Urea Nitrogen 19 Creatinine 0.79 Glucose Level 109 Calcium Level 8.2 L Magnesium Level 1.5 L Lab Scanned Report REFERENCE LAB Medications Medications Current Medications Pantoprazole (Protonix Iv) 40 mg DAILY IV Last administered on 09/06/16 08:18 ; Admin Dose 40 MG; Start 08/31/16 at 15:00 IV Flush 10 ml 10 ml PRN PRN IV IV PROTOCOL; Start 08/31/16 at 18:30 Meropenem 100 ml @ 200 mls/hr Q8 IVPB Last administered on 09/06/16 15:30; Admin Dose 200 MLS/HR; Start 09/01/16 at 14:00 Voriconazole/ Sodium Chloride (Vfend Iv/NS) 100 ml @ 50 mls/hr Q12 IVPB Last administered on 09/06/16 08:19; Admin Dose 50 MLS/HR; Start 09/02/16 at 10:00 Metoprolol Tartrate (Lopressor) 5 mg Q4H PRN IV ELEVATED HEART RATE Last administered on 09/02/16 17:09; Admin Dose 5 MG; Start 09/02/16 at 17:30 Morphine Sulfate (morphine) 4 mg Q3 PRN IV PAIN Last administered on 09/06/16 14:29; Admin Dose 4 MG; Start 09/05/16 at 17:00 Morphine Sulfate (Ms Contin (Er)) 30 mg BID PO Last administered on 09/06/16 08:18; Admin Dose 30 MG; Start 09/05/16 at 21:00 Docusate Sodium (Colace) 100 mg TID PO ; Start 09/06/16 at 21:00; Status UNV Bisacodyl (Dulcolax) 5 mg DAILY PRN PO CONSTIPATION; Start 4/12/17 at 16:00; Status UNV SADEORA,TRAMAINE Sep 06, 2016 16:08
[2016-09-06] MEDS: BISACODYL (EC) 5 MG TAB PO PRN (16:28)
[2016-09-06] MEDS ORDERED: MAGNESIUM SULFATE 3 GM in SOD CHLORIDE 0.9% 100 ML IVPB ONE (18:00)
[2016-09-06 19:06] LABS: ADD SCAN DIFF NO
[2016-09-06 19:09] LABS: ABNORMAL IP MESSAGE 1; BASOPHILS % 0.3 % (0.0-2.0); EOSINOPHILS # 0.2 10^3/ul (0.0-0.5); EOSINOPHILS % 5.3 % (0.0-7.0); HEMATOCRIT 28.8 % (42.0-52.0); HEMOGLOBIN 9.2 g/dl (14.0-18.0); LYMPHOCYTES # 0.9 10^3/ul (0.8-2.9); MEAN CORPUSCULAR HEMOGLOBIN 31.4 pg (29.0-33.0); MEAN CORPUSCULAR HGB CONC 31.9 g/dl (32.0-37.0); MEAN CORPUSCULAR VOLUME 98.3 fl (82.0-101.0); MEAN PLATELET VOLUME 10.3 fl (7.4-10.4); MONOCYTE # 0.2 10^3/ul (0.3-0.9); MONOCYTES % 4.7 % (0.0-11.0); NEUTROPHIL # 2.2 10^3/ul (1.6-7.5); NEUTROPHILS % 63.1 % (39.0-77.0); RED BLOOD COUNT 2.93 10^6/ul (4.70-6.10); RED CELL DISTRIBUTION WIDTH 14.3 % (11.5-14.5); WHITE BLOOD COUNT 3.4 10^3/ul (4.8-10.8)
[2016-09-06 19:19] LABS: PLATELET COUNT 44 10^3/UL (140-415)
[2016-09-06] MEDS: DOCUSATE SODIUM 100 MG CAP PO SCH (20:25)
--- NOTE | 2016-09-06 23:29 | CONS ---
Date/Time of Note Date/Time of Note DATE: 09/06/16 TIME: 23:28 Assessment/Plan Assessment/Plan Chief Complaint/Hosp Course metastatic lung CANCER, NSCLC - ON CHEMO PANCYTOPENIA POST CHEMO Hypoxemic respiratory failure, possibly secondary to a reaction to chemotherapy. History of coronary artery disease. History of chronic obstructive pulmonary disease PLAN: Continue broad-spectrum antibiotics, currently on Voriconazole, meropenem and vancomycin.- PER ID WOULD NARROW COVERAGE IV fluids. Deep venous thrombosis and gastrointestinal prophylaxis. chemo on hold Problems: Consultation Date/Type/Reason Admit Date/Time Sep 01, 2016 at 14:47 Initial Consult Date 09/01/16 Type of Consultation: [facility] Referring Provider: MARYAM FARMER MD 24 HR Interval Summary Free Text/Dictation ALL NOTED NO NEW EVENTS WEAK COUNT - RECOVERING Exam/Review of Systems Vital Signs Vitals Vital Signs Date Time Temp Pulse Resp B/P Pulse Ox O2 Delivery O2 Flow Rate FiO2 09/06/16 20:28 103 09/06/16 20:09 98.3 20 134/99 94 09/06/16 20:00 Nasal Cannula 1.0 09/02/16 13:00 30 Intake and Output 09/05/16 09/05/16 09/06/16 15:00 23:00 07:00 Intake Total 1280 ml 950 ml 1220 ml Output Total 550 ml 700 ml 850 ml Balance 730 ml 250 ml 370 ml Exam Constitutional: alert Head: atraumatic Eyes: EOMI ENMT: nl external ears & nose Neck: non-tender Respiratory: diminished breath sounds Cardiovascular: nl pulses Gastrointestinal: other, soft Musculoskeletal: nl extremities to inspection Neurological: nl mental status, nl speech Lymph: nontender Results Result Diagram: 09/06/16 1900 09/06/16 0610 Results 24 hrs Laboratory Tests Test 09/06/16 06:10 09/06/16 09:05 09/06/16 19:00 White Blood Count 2.7 L 3.4 #L Red Blood Count 2.83 L 2.93 L Hemoglobin 8.9 L 9.2 L Hematocrit 27.9 L 28.8 L Mean Corpuscular Volume 98.6 98.3 Mean Corpuscular Hemoglobin 31.4 31.4 Mean Corpuscular Hemoglobin Concent 31.9 L 31.9 L Red Cell Distribution Width 14.2 14.3 Platelet Count 45 L 44 L Mean Platelet Volume 12.0 H 10.3 Neutrophils % 57.4 63.1 Lymphocytes % 31.1 26.0 Monocytes % 4.8 4.7 Eosinophils % 5.6 5.3 Basophils % 0.4 0.3 Nucleated Red Blood Cells % 0.0 0.0 Neutrophils # 1.6 2.2 Lymphocytes # 0.8 0.9 Monocytes # 0.1 L 0.2 L Eosinophils # 0.2 0.2 Basophils # 0.0 0.0 Nucleated Red Blood Cells # 0.0 0.0 Sodium Level 136 Potassium Level 3.9 Chloride Level 100 Carbon Dioxide Level 29 Anion Gap 11 Blood Urea Nitrogen 19 Creatinine 0.79 Glucose Level 109 Calcium Level 8.2 L Magnesium Level 1.5 L Lab Scanned Report REFERENCE LAB Medications Medications Current Medications IV Flush 10 ml 10 ml PRN PRN IV IV PROTOCOL; Start 08/31/16 at 18:30 Meropenem 100 ml @ 200 mls/hr Q8 IVPB Last administered on 09/06/16 22:41; Admin Dose 200 MLS/HR; Start 09/01/16 at 14:00 Voriconazole/ Sodium Chloride (Vfend Iv/NS) 100 ml @ 50 mls/hr Q12 IVPB Last administered on 09/06/16 20:25; Admin Dose 50 MLS/HR; Start 09/02/16 at 10:00 Metoprolol Tartrate (Lopressor) 5 mg Q4H PRN IV ELEVATED HEART RATE Last administered on 09/02/16 17:09; Admin Dose 5 MG; Start 09/02/16 at 17:30 Morphine Sulfate (morphine) 4 mg Q3 PRN IV PAIN Last administered on 09/06/16 20:26; Admin Dose 4 MG; Start 09/05/16 at 17:00 Morphine Sulfate (Ms Contin (Er)) 30 mg BID PO Last administered on 09/06/16 21:22; Admin Dose 30 MG; Start 09/05/16 at 21:00 Docusate Sodium (Colace) 100 mg TID PO Last administered on 09/06/16 20:25; Admin Dose 100 MG; Start 09/06/16 at 21:00 Bisacodyl (Dulcolax) 5 mg DAILY PRN PO CONSTIPATION Last administered on 16:28; Admin Dose 5 MG; Start 09/06/16 at 16:00 Pantoprazole (Protonix Tab) 40 mg DAILY@06 PO ; Start 09/07/16 at 06:00 DAHIANA BABCOCK MD Sep 06, 2016 23:29
[2016-09-07] VITALS (13 sets, daily range): BP systolic 128–159; BP diastolic 62–98; PULSE 89–101; RESP 18–20
[2016-09-07] MEDS: MEROPENEM 1 GM/100 ML (PMX) 100 ML IVPB SCH ×3 (05:45→22:48)
[2016-09-07] MEDS: PANTOPRAZOLE (EC) 40 MG TAB PO SCH (05:46)
[2016-09-07] MEDS: morphine 4 MG/ML VIAL IV PRN ×3 (05:46→20:33)
[2016-09-07 07:37] LABS: POTASSIUM 3.9 mmol/L (3.5-5.1)
[2016-09-07 07:40] LABS: CALCIUM 8.6 mg/dl (8.4-10.2); CREATININE 0.83 mg/dl (0.61-1.24); MAGNESIUM 1.7 mg/dl (1.7-2.5)
[2016-09-07] MEDS: DOCUSATE SODIUM 100 MG CAP PO SCH ×3 (08:48→20:57)
[2016-09-07] MEDS: morphine (ER) 30 MG TAB PO SCH ×2 (08:48→21:03)
[2016-09-07] MEDS: SOD CHLORIDE 0.9% IVPB SCH ×2 (08:57→20:57)
[2016-09-07] MEDS: VORICONAZOLE IVPB SCH ×2 (08:57→20:57)
--- NOTE | 2016-09-07 12:44 | PN ---
Date/Time of Note Date/Time of Note DATE: 09/07/16 TIME: 12:43 Assessment/Plan VTE Prophylaxis VTE Prophylaxis Intervention: other Lines/Catheters IV Catheter Type (from [facility]): PICC Line Urinary Cath still in place: No Assessment/Plan Assessment/Plan - Severe sepsis due to pneumonia/bronchitis - per ID- Dr Tesfaye - Advanced non-small cell lung CA, s/p chemo - per dr Slaughter in oncology - Pancytopenia due to chemotherapy - advanced non-small cell lung CA, on biweekly chemotherapy infusion x2 years - h/o fungal pneumonia, on maintenance voriconazole - h/o post-obstructive pneumonia - h/o HTN, CAD, hyperlipidemia - h/o paroxysmal A fib - h/o DVT in LUE - h/o hypothyroidism - Hypomagnesium- resolved - Hypokalemia- resolved Further treatment depends upon patient's clinical course. Will arrange for portable oxygen for patient at home - case management. Plan of care dw Dr Lincoln/staff Subjective 24 Hr Interval Summary Free Text/Dictation nad, able to do own oral suction. feels better. using oxygen. dw staff Constitutional: requiring O2 ENT: no complaints Respiratory: shortness of breath Cardiovascular: no complaints Gastrointestinal: no complaints Genitourinary: no complaints Musculoskeletal: no complaints Skin: no complaints Neurologic: no complaints Endocrine: no complaints Lymphatic: no complaints Psychological: no complaints Immunologic: no complaints Exam/Review of Systems Vital Signs Vitals Vital Signs Date Time Temp Pulse Resp B/P Pulse Ox O2 Delivery O2 Flow Rate FiO2 09/07/16 12:06 101 09/07/16 11:57 97.7 19 159/98 94 09/07/16 08:15 Nasal Cannula 1.0 Intake and Output 09/06/16 09/06/16 09/07/16 15:00 23:00 07:00 Intake Total 100 ml 650 ml 900 ml Output Total 700 ml 1000 ml Balance 100 ml -50 ml -100 ml Exam Constitutional: alert, oriented, well developed Psych: nl mood/affect Head: atraumatic Eyes: EOMI ENMT: nl external ears & nose Neck: non-tender Respiratory: diminished breath sounds Cardiovascular: nl pulses Musculoskeletal: nl extremities to inspection Extremities: normal pulses Neurological: nl mental status, nl speech Skin: nl turgor Lymph: nontender Results Result Diagram: 09/06/16 1900 09/07/16 0651 Results 24 hrs Laboratory Tests Test 09/06/16 19:00 09/07/16 06:51 09/07/16 10:44 09/07/16 10:47 White Blood Count 3.4 #L Red Blood Count 2.93 L Hemoglobin 9.2 L Hematocrit 28.8 L Mean Corpuscular Volume 98.3 Mean Corpuscular Hemoglobin 31.4 Mean Corpuscular Hemoglobin Concent 31.9 L Red Cell Distribution Width 14.3 Platelet Count 44 L Mean Platelet Volume 10.3 Neutrophils % 63.1 Lymphocytes % 26.0 Monocytes % 4.7 Eosinophils % 5.3 Basophils % 0.3 Nucleated Red Blood Cells % 0.0 Neutrophils # 2.2 Lymphocytes # 0.9 Monocytes # 0.2 L Eosinophils # 0.2 Basophils # 0.0 Nucleated Red Blood Cells # 0.0 Sodium Level 138 Potassium Level 3.9 Chloride Level 95 L Carbon Dioxide Level 33 H Anion Gap 14 Blood Urea Nitrogen 18 Creatinine 0.83 Glucose Level 96 Calcium Level 8.6 Magnesium Level 1.7 Lab Scanned Report REFERENCE LAB REFERENCE LAB Test 09/07/16 10:48 Lab Scanned Report REFERENCE LAB Medications Medications Current Medications IV Flush 10 ml 10 ml PRN PRN IV IV PROTOCOL; Start 08/31/16 at 18:30 Meropenem 100 ml @ 200 mls/hr Q8 IVPB Last administered on 09/07/16 05:45; Admin Dose 200 MLS/HR; Start 09/01/16 at 14:00 Voriconazole/ Sodium Chloride (Vfend Iv/NS) 100 ml @ 50 mls/hr Q12 IVPB Last administered on 09/07/16 08:57; Admin Dose 50 MLS/HR; Start 09/02/16 at 10:00 Metoprolol Tartrate (Lopressor) 5 mg Q4H PRN IV ELEVATED HEART RATE Last administered on 09/02/16 17:09; Admin Dose 5 MG; Start 09/02/16 at 17:30 Morphine Sulfate (morphine) 4 mg Q3 PRN IV PAIN Last administered on 09/07/16 11:59; Admin Dose 4 MG; Start 09/05/16 at 17:00 Morphine Sulfate (Ms Contin (Er)) 30 mg BID PO Last administered on 09/07/16 08:48; Admin Dose 30 MG; Start 09/05/16 at 21:00 Docusate Sodium (Colace) 100 mg TID PO Last administered on 09/07/16 08:48; Admin Dose 100 MG; Start 09/06/16 at 21:00 Bisacodyl (Dulcolax) 5 mg DAILY PRN PO CONSTIPATION Last administered on 16:28; Admin Dose 5 MG; Start 09/06/16 at 16:00 Pantoprazole (Protonix Tab) 40 mg DAILY@06 PO Last administered on 09/07/16 05 :46; Admin Dose 40 MG; Start 09/07/16 at 06:00 TRAMAINE ELLSWORTH Sep 07, 2016 12:44
--- NOTE | 2016-09-07 13:11 | CONS ---
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 - f/u respiratory panel by NAAT (negative), mycoplasma by NAAT (pending), 1,3- [id number] (negative), cocci serology (negative), aspergillus antigen and antibody (not detected). - Records from [place] were reviewed (concern for necrotizing aspergillus but unable to do biopsy) - DC droplet precautions - Management d/w pt and Patricia ARREDONDO - Above d/w Dr. Fraga Problems: Consultation Date/Type/Reason Admit Date/Time Sep 01, 2016 at 14:47 Initial Consult Date 09/01/16 Type of Consultation: Infectious Disease Referring Provider: MARYAM FARMER MD 24 HR Interval Summary Free Text/Dictation Afebrile; ambulating in room; no significant clinical changes per MARIA ELENA Gomez. Reports generalized weakness. Able to sleep four hours last night. Still has persistent cough and generalized body pain. Denies n/v/d, dysuria, dizziness, focal weakness. Exam/Review of Systems Vital Signs Vitals Vital Signs Date Time Temp Pulse Resp B/P Pulse Ox O2 Delivery O2 Flow Rate FiO2 09/07/16 12:06 101 09/07/16 11:57 97.7 19 159/98 94 09/07/16 08:15 Nasal Cannula 1.0 Intake and Output 09/06/16 09/06/16 09/07/16 15:00 23:00 07:00 Intake Total 100 ml 650 ml 900 ml Output Total 700 ml 1000 ml Balance 100 ml -50 ml -100 ml Exam Constitutional: alert, obese, oriented, well developed, other ( at bedside) Head: atraumatic, normocephalic Neck: supple, non-tender Respiratory: congested cough, diminished breath sounds (RUL), normal air movement Cardiovascular: nl pulses, regular rate and rhythm Gastrointestinal: non-tender, soft Musculoskeletal: nl extremities to inspection Extremities: No clubbing, No cyanosis, No edema Neurological: nl mental status Skin: nl turgor, No rash or lesions Results Result Diagram: 09/06/16 1900 09/07/16 0651 Results 24 hrs Laboratory Tests Test 09/06/16 19:00 09/07/16 06:51 09/07/16 10:44 09/07/16 10:47 White Blood Count 3.4 #L Red Blood Count 2.93 L Hemoglobin 9.2 L Hematocrit 28.8 L Mean Corpuscular Volume 98.3 Mean Corpuscular Hemoglobin 31.4 Mean Corpuscular Hemoglobin Concent 31.9 L Red Cell Distribution Width 14.3 Platelet Count 44 L Mean Platelet Volume 10.3 Neutrophils % 63.1 Lymphocytes % 26.0 Monocytes % 4.7 Eosinophils % 5.3 Basophils % 0.3 Nucleated Red Blood Cells % 0.0 Neutrophils # 2.2 Lymphocytes # 0.9 Monocytes # 0.2 L Eosinophils # 0.2 Basophils # 0.0 Nucleated Red Blood Cells # 0.0 Sodium Level 138 Potassium Level 3.9 Chloride Level 95 L Carbon Dioxide Level 33 H Anion Gap 14 Blood Urea Nitrogen 18 Creatinine 0.83 Glucose Level 96 Calcium Level 8.6 Magnesium Level 1.7 Lab Scanned Report REFERENCE LAB REFERENCE LAB Test 09/07/16 10:48 Lab Scanned Report REFERENCE LAB Medications Medications Current Medications IV Flush 10 ml 10 ml PRN PRN IV IV PROTOCOL; Start 08/31/16 at 18:30 Meropenem 100 ml @ 200 mls/hr Q8 IVPB Last administered on 09/07/16 05:45; Admin Dose 200 MLS/HR; Start 09/01/16 at 14:00 Voriconazole/ Sodium Chloride (Vfend Iv/NS) 100 ml @ 50 mls/hr Q12 IVPB Last administered on 09/07/16 08:57; Admin Dose 50 MLS/HR; Start 09/02/16 at 10:00 Metoprolol Tartrate (Lopressor) 5 mg Q4H PRN IV ELEVATED HEART RATE Last administered on 09/02/16 17:09; Admin Dose 5 MG; Start 09/02/16 at 17:30 Morphine Sulfate (morphine) 4 mg Q3 PRN IV PAIN Last administered on 09/07/16 11:59; Admin Dose 4 MG; Start 09/05/16 at 17:00 Morphine Sulfate (Ms Contin (Er)) 30 mg BID PO Last administered on 09/07/16 08:48; Admin Dose 30 MG; Start 09/05/16 at 21:00 Docusate Sodium (Colace) 100 mg TID PO Last administered on 09/07/16 08:48; Admin Dose 100 MG; Start 09/06/16 at 21:00 Bisacodyl (Dulcolax) 5 mg DAILY PRN PO CONSTIPATION Last administered on 16:28; Admin Dose 5 MG; Start 09/06/16 at 16:00 Pantoprazole (Protonix Tab) 40 mg DAILY@06 PO Last administered on 09/07/16 05 :46; Admin Dose 40 MG; Start 09/07/16 at 06:00 STEPHEN LOVE NP Sep 07, 2016 13:11
--- NOTE | 2016-09-07 19:27 | CONS ---
Date/Time of Note Date/Time of Note DATE: 09/07/16 TIME: 19:27 Assessment/Plan Assessment/Plan Chief Complaint/Hosp Course metastatic lung CANCER, NSCLC - ON CHEMO PANCYTOPENIA POST CHEMO Hypoxemic respiratory failure, possibly secondary to a reaction to chemotherapy. History of coronary artery disease. History of chronic obstructive pulmonary disease PLAN: Continue broad-spectrum antibiotics, currently on Voriconazole, meropenem and vancomycin.- PER ID - continue meropenem (09/01/16-) to complete 7-8 day course for possible HCAP - continue IV voriconazole 200mg q12 hrs. - f/u respiratory panel by NAAT (negative), mycoplasma by NAAT (pending), 1,3- [id number] (negative), cocci serology (negative), aspergillus antigen and antibody (not detected). - Records from [facility] were reviewed (concern for necrotizing aspergillus but unable to do biopsy) - DC droplet precautions Deep venous thrombosis and gastrointestinal prophylaxis. chemo on hold Problems: Consultation Date/Type/Reason Admit Date/Time Sep 01, 2016 at 14:47 Initial Consult Date 09/01/16 Type of Consultation: [facility] Referring Provider: MARYAM FARMER MD 24 HR Interval Summary Free Text/Dictation ALL NOTED PER ID - - continue meropenem (09/01/16-) to complete 7-8 day course for possible HCAP - continue IV voriconazole 200mg q12 hrs. - f/u respiratory panel by NAAT (negative), mycoplasma by NAAT (pending), 1,3- [id number] (negative), cocci serology (negative), aspergillus antigen and antibody (not detected). - Records from [facility] were reviewed (concern for necrotizing aspergillus but unable to do biopsy) - DC droplet precautions OVERALL IMPROVING, BUT STILL VERY FRAIL Exam/Review of Systems Vital Signs Vitals Vital Signs Date Time Temp Pulse Resp B/P Pulse Ox O2 Delivery O2 Flow Rate FiO2 09/07/16 16:32 101 09/07/16 15:54 98.6 20 158/88 97 09/07/16 08:15 Nasal Cannula 1.0 Intake and Output 09/06/16 09/06/16 09/07/16 14:59 22:59 06:59 Intake Total 100 ml 650 ml 900 ml Output Total 700 ml 1000 ml Balance 100 ml -50 ml -100 ml Exam Constitutional: alert, obese, oriented, well developed, other ( at bedside) Head: atraumatic, normocephalic Neck: supple, non-tender Respiratory: congested cough, diminished breath sounds (RUL), normal air movement Cardiovascular: nl pulses, regular rate and rhythm Gastrointestinal: non-tender, soft Musculoskeletal: nl extremities to inspection Extremities: No clubbing, No cyanosis, No edema Neurological: nl mental status Skin: nl turgor, No rash or lesions Results Result Diagram: 09/06/16 1900 09/07/16 0651 Results 24 hrs Laboratory Tests Test 09/07/16 06:51 09/07/16 10:44 09/07/16 10:47 09/07/16 10:48 Sodium Level 138 Potassium Level 3.9 Chloride Level 95 L Carbon Dioxide Level 33 H Anion Gap 14 Blood Urea Nitrogen 18 Creatinine 0.83 Glucose Level 96 Calcium Level 8.6 Magnesium Level 1.7 Lab Scanned Report REFERENCE LAB REFERENCE LAB REFERENCE LAB Medications Medications Current Medications IV Flush 10 ml 10 ml PRN PRN IV IV PROTOCOL; Start 08/31/16 at 18:30 Meropenem 100 ml @ 200 mls/hr Q8 IVPB Last administered on 09/07/16 13:16; Admin Dose 200 MLS/HR; Start 09/01/16 at 14:00 Voriconazole/ Sodium Chloride (Vfend Iv/NS) 100 ml @ 50 mls/hr Q12 IVPB Last administered on 09/07/16 08:57; Admin Dose 50 MLS/HR; Start 09/02/16 at 10:00 Metoprolol Tartrate (Lopressor) 5 mg Q4H PRN IV ELEVATED HEART RATE Last administered on 09/02/16 17:09; Admin Dose 5 MG; Start 09/02/16 at 17:30 Morphine Sulfate (morphine) 4 mg Q3 PRN IV PAIN Last administered on 09/07/16 11:59; Admin Dose 4 MG; Start 09/05/16 at 17:00 Morphine Sulfate (Ms Contin (Er)) 30 mg BID PO Last administered on 09/07/16 08:48; Admin Dose 30 MG; Start 09/05/16 at 21:00 Docusate Sodium (Colace) 100 mg TID PO Last administered on 4/13/17at 13:16; Admin Dose 100 MG; Start 09/06/16 at 21:00 Bisacodyl (Dulcolax) 5 mg DAILY PRN PO CONSTIPATION Last administered on 16:28; Admin Dose 5 MG; Start 09/06/16 at 16:00 Pantoprazole (Protonix Tab) 40 mg DAILY@06 PO Last administered on 09/07/16 05 :46; Admin Dose 40 MG; Start 09/07/16 at 06:00 DAHIANA BABCOCK MD Sep 07, 2016 19:27
[2016-09-08] VITALS (11 sets, daily range): BP systolic 109–148; BP diastolic 66–84; PULSE 96–109; RESP 18–22
[2016-09-08] MEDS: morphine 4 MG/ML VIAL IV PRN ×7 (00:23→23:52)
[2016-09-08] MEDS: PANTOPRAZOLE (EC) 40 MG TAB PO SCH (06:15)
[2016-09-08] MEDS: MEROPENEM 1 GM/100 ML (PMX) 100 ML IVPB SCH ×3 (06:15→22:46)
[2016-09-08 07:06] LABS: ADD SCAN DIFF NO
[2016-09-08 07:15] LABS: ABNORMAL IP MESSAGE 1; HEMATOCRIT 26.2 % (42.0-52.0); MEAN CORPUSCULAR HEMOGLOBIN 30.8 pg (29.0-33.0); MEAN CORPUSCULAR HGB CONC 30.5 g/dl (32.0-37.0); MEAN CORPUSCULAR VOLUME 100.8 fl (82.0-101.0); MEAN PLATELET VOLUME 11.6 fl (7.4-10.4); PLATELET COUNT 49 10^3/UL (140-415); RED CELL DISTRIBUTION WIDTH 14.5 % (11.5-14.5)
[2016-09-08 07:15] LABS: POTASSIUM 3.9 mmol/L (3.5-5.1)
[2016-09-08 07:17] LABS: CREATININE 0.79 mg/dl (0.61-1.24)
[2016-09-08 07:18] LABS: CALCIUM 8.4 mg/dl (8.4-10.2)
[2016-09-08] MEDS: DOCUSATE SODIUM 100 MG CAP PO SCH ×3 (09:31→20:29)
[2016-09-08] MEDS: morphine (ER) 30 MG TAB PO SCH ×2 (09:31→20:29)
[2016-09-08] MEDS: VORICONAZOLE IVPB SCH ×2 (09:32→20:30)
[2016-09-08] MEDS: SOD CHLORIDE 0.9% IVPB SCH ×2 (09:32→20:30)
[2016-09-08 10:12] LABS: EOSINOPHILS # 0.2 10^3/ul (0.0-0.5); LYMPHOCYTES # 0.8 10^3/ul (0.8-2.9); MONOCYTE # 0.1 10^3/ul (0.3-0.9); NEUTROPHIL # 1.8 10^3/ul (1.6-7.5)
[2016-09-08 10:13] LABS: PLATELET ESTIMATE PLT APPEAR DECREASED
--- NOTE | 2016-09-08 11:18 | CONS ---
Date/Time of Note Date/Time of Note DATE: 09/08/16 TIME: 11:18 Assessment/Plan Assessment/Plan Chief Complaint/Hosp Course metastatic lung CANCER, NSCLC - ON CHEMO PANCYTOPENIA POST CHEMO Hypoxemic respiratory failure, possibly secondary to a reaction to chemotherapy. History of coronary artery disease. History of chronic obstructive pulmonary disease PLAN: Continue broad-spectrum antibiotics, currently on Voriconazole, meropenem and vancomycin.- PER ID - continue meropenem (09/01/16-) to complete 7-8 day course for possible HCAP - continue IV voriconazole 200mg q12 hrs. - f/u respiratory panel by NAAT (negative), mycoplasma by NAAT (pending), 1,3- svqa-[id number]-swessm (negative), cocci serology (negative), aspergillus antigen and antibody (not detected). - Records from [facility] were reviewed (concern for necrotizing aspergillus but unable to do biopsy) - DC droplet precautions Deep venous thrombosis and gastrointestinal prophylaxis. chemo on hold Problems: Consultation Date/Type/Reason Admit Date/Time Sep 01, 2016 at 14:47 Initial Consult Date 09/01/16 Type of Consultation: [facility] Referring Provider: MARYAM FARMER MD 24 HR Interval Summary Free Text/Dictation WEAK + SOB Exam/Review of Systems Vital Signs Vitals Vital Signs Date Time Temp Pulse Resp B/P Pulse Ox O2 Delivery O2 Flow Rate FiO2 09/08/16 08:09 96 09/08/16 08:00 Nasal Cannula 2.0 09/08/16 07:21 98.0 20 148/84 97 Intake and Output 09/07/16 09/07/16 09/08/16 15:00 23:00 07:00 Intake Total 1100 ml 1050 ml Output Total 800 ml 1250 ml Balance 300 ml -200 ml Exam Constitutional: alert, oriented, well developed Psych: nl mood/affect, no complaints Head: atraumatic, normocephalic Eyes: EOMI, PERRL, nl conjunctiva, nl lids, nl sclera Neck: non-tender, supple Respiratory: clear to auscultation, normal air movement Cardiovascular: nl pulses, regular rate and rhythm Gastrointestinal: nl liver, spleen, non-tender, soft Results Result Diagram: 09/08/16 0550 09/08/16 0640 Results 24 hrs Laboratory Tests Test 09/08/16 05:50 09/08/16 06:40 White Blood Count 3.0 L Red Blood Count 2.60 L Hemoglobin 8.0 L Hematocrit 26.2 L Mean Corpuscular Volume 100.8 Mean Corpuscular Hemoglobin 30.8 Mean Corpuscular Hemoglobin Concent 30.5 L Red Cell Distribution Width 14.5 Platelet Count 49 L Mean Platelet Volume 11.6 H Neutrophils % 61.0 Band Neutrophils % 1.0 Lymphocytes % 28.0 Monocytes % 3.0 Eosinophils % 7.0 Neutrophils # 1.8 Lymphocytes # 0.8 Monocytes # 0.1 L Eosinophils # 0.2 Platelet Estimate PLT APPEAR DECREASED Sodium Level 137 Potassium Level 3.9 Chloride Level 96 L Carbon Dioxide Level 32 H Anion Gap 13 Blood Urea Nitrogen 15 Creatinine 0.79 Glucose Level 104 Calcium Level 8.4 Medications Medications Current Medications IV Flush 10 ml 10 ml PRN PRN IV IV PROTOCOL; Start 08/31/16 at 18:30 Meropenem 100 ml @ 200 mls/hr Q8 IVPB Last administered on 09/08/16 06:15; Admin Dose 200 MLS/HR; Start 09/01/16 at 14:00 Voriconazole/ Sodium Chloride (Vfend Iv/NS) 100 ml @ 50 mls/hr Q12 IVPB Last administered on 09/08/16 09:32; Admin Dose 50 MLS/HR; Start 09/02/16 at 10:00 Metoprolol Tartrate (Lopressor) 5 mg Q4H PRN IV ELEVATED HEART RATE Last administered on 09/02/16 17:09; Admin Dose 5 MG; Start 09/02/16 at 17:30 Morphine Sulfate (morphine) 4 mg Q3 PRN IV PAIN Last administered on 09/08/16 07:57; Admin Dose 4 MG; Start 09/05/16 at 17:00 Morphine Sulfate (Ms Contin (Er)) 30 mg BID PO Last administered on 09/08/16 09:31; Admin Dose 30 MG; Start 09/05/16 at 21:00 Docusate Sodium (Colace) 100 mg TID PO Last administered on 09/08/16 09:31; Admin Dose 100 MG; Start 09/06/16 at 21:00 Bisacodyl (Dulcolax) 5 mg DAILY PRN PO CONSTIPATION Last administered on 16:28; Admin Dose 5 MG; Start 09/06/16 at 16:00 Pantoprazole (Protonix Tab) 40 mg DAILY@06 PO Last administered on 09/08/16 06 :15; Admin Dose 40 MG; Start 09/07/16 at 06:00 DAHIANA BABCOCK MD Sep 08, 2016 11:18
--- NOTE | 2016-09-08 11:23 | CONS ---
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 --switch back to po upon d/c; f/u with original id physician at [facility] regarding this - f/u respiratory panel by NAAT (negative), mycoplasma by NAAT (pending), 1,3- ymrh-T-mssacy (negative), cocci serology (negative), aspergillus antigen and antibody (not detected). - Records from [place] were reviewed (concern for necrotizing aspergillus but unable to do biopsy) - DC droplet precautions Problems: Consultation Date/Type/Reason Admit Date/Time Sep 01, 2016 at 14:47 Initial Consult Date 09/01/16 Type of Consultation: id Referring Provider: MARYAM FARMER MD 24 HR Interval Summary Free Text/Dictation still has some sob and cough. Exam/Review of Systems Vital Signs Vitals Vital Signs Date Time Temp Pulse Resp B/P Pulse Ox O2 Delivery O2 Flow Rate FiO2 09/08/16 08:09 96 09/08/16 08:00 Nasal Cannula 2.0 09/08/16 07:21 98.0 20 148/84 97 Intake and Output 09/07/16 09/07/16 09/08/16 14:59 22:59 06:59 Intake Total 1100 ml 1050 ml Output Total 800 ml 1250 ml Balance 300 ml -200 ml Exam Constitutional: alert, oriented, well developed Psych: nl mood/affect, no complaints Head: atraumatic, normocephalic Eyes: EOMI, PERRL, nl conjunctiva, nl lids, nl sclera Neck: non-tender, supple Respiratory: clear to auscultation, normal air movement Cardiovascular: nl pulses, regular rate and rhythm Gastrointestinal: nl liver, spleen, non-tender, soft Results Result Diagram: 09/08/16 0550 09/08/16 0640 Results 24 hrs Laboratory Tests Test 09/08/16 05:50 09/08/16 06:40 White Blood Count 3.0 L Red Blood Count 2.60 L Hemoglobin 8.0 L Hematocrit 26.2 L Mean Corpuscular Volume 100.8 Mean Corpuscular Hemoglobin 30.8 Mean Corpuscular Hemoglobin Concent 30.5 L Red Cell Distribution Width 14.5 Platelet Count 49 L Mean Platelet Volume 11.6 H Neutrophils % 61.0 Band Neutrophils % 1.0 Lymphocytes % 28.0 Monocytes % 3.0 Eosinophils % 7.0 Neutrophils # 1.8 Lymphocytes # 0.8 Monocytes # 0.1 L Eosinophils # 0.2 Platelet Estimate PLT APPEAR DECREASED Sodium Level 137 Potassium Level 3.9 Chloride Level 96 L Carbon Dioxide Level 32 H Anion Gap 13 Blood Urea Nitrogen 15 Creatinine 0.79 Glucose Level 104 Calcium Level 8.4 Medications Medications Current Medications IV Flush 10 ml 10 ml PRN PRN IV IV PROTOCOL; Start 08/31/16 at 18:30 Meropenem 100 ml @ 200 mls/hr Q8 IVPB Last administered on 09/08/16 06:15; Admin Dose 200 MLS/HR; Start 09/01/16 at 14:00 Voriconazole/ Sodium Chloride (Vfend Iv/NS) 100 ml @ 50 mls/hr Q12 IVPB Last administered on 09/08/16 09:32; Admin Dose 50 MLS/HR; Start 09/02/16 at 10:00 Metoprolol Tartrate (Lopressor) 5 mg Q4H PRN IV ELEVATED HEART RATE Last administered on 09/02/16 17:09; Admin Dose 5 MG; Start 09/02/16 at 17:30 Morphine Sulfate (morphine) 4 mg Q3 PRN IV PAIN Last administered on 09/08/16 07:57; Admin Dose 4 MG; Start 09/05/16 at 17:00 Morphine Sulfate (Ms Contin (Er)) 30 mg BID PO Last administered on 09/08/16 09:31; Admin Dose 30 MG; Start 09/05/16 at 21:00 Docusate Sodium (Colace) 100 mg TID PO Last administered on 09/08/16 09:31; Admin Dose 100 MG; Start 09/06/16 at 21:00 Bisacodyl (Dulcolax) 5 mg DAILY PRN PO CONSTIPATION Last administered on 16:28; Admin Dose 5 MG; Start 09/06/16 at 16:00 Pantoprazole (Protonix Tab) 40 mg DAILY@06 PO Last administered on 09/08/16 06 :15; Admin Dose 40 MG; Start 09/07/16 at 06:00 DELIO DIALLO MD Sep 08, 2016 11:23
[2016-09-08] MEDS ORDERED: DOCUSATE SODIUM 100 MG CAP PO PRN (13:00)
--- NOTE | 2016-09-08 16:48 | PN ---
Date/Time of Note Date/Time of Note DATE: 09/08/16 TIME: 16:45 Assessment/Plan Lines/Catheters IV Catheter Type (from Nrs): PICC Line Central line still needed: Yes Assessment/Plan Assessment/Plan - Severe sepsis due to pneumonia/bronchitis - per ID- Dr Tesfaye - Advanced non-small cell lung CA, s/p chemo - per dr Slaughter in oncology - Pancytopenia due to chemotherapy - advanced non-small cell lung CA, on biweekly chemotherapy infusion x2 years - h/o fungal pneumonia, on maintenance voriconazole - h/o post-obstructive pneumonia - h/o HTN, CAD, hyperlipidemia - h/o paroxysmal A fib - h/o DVT in LUE - h/o hypothyroidism - Hypomagnesium- resolved Further treatment depends upon patient's clinical course. Will arrange for portable oxygen for patient at home - case management- got denied. Plan of care dw Dr Lincoln/staff Subjective 24 Hr Interval Summary Free Text/Dictation nad, doing well. plan to degrade to MS but per DR Gaytan, patient will stay on tele due to abnormal rhythm today, portable oxygen for patient at home - got denied per staff. Eyes: no complaints ENT: no complaints Respiratory: shortness of breath Cardiovascular: no complaints Gastrointestinal: no complaints Genitourinary: no complaints Musculoskeletal: no complaints Skin: no complaints Neurologic: no complaints Endocrine: no complaints Lymphatic: no complaints Psychological: no complaints Immunologic: no complaints Exam/Review of Systems Vital Signs Vitals Vital Signs Date Time Temp Pulse Resp B/P Pulse Ox O2 Delivery O2 Flow Rate FiO2 09/08/16 16:00 100 09/08/16 15:21 97.9 22 140/79 96 09/08/16 08:00 Nasal Cannula 2.0 Intake and Output 09/07/16 09/07/16 09/08/16 15:00 23:00 07:00 Intake Total 1100 ml 1050 ml Output Total 800 ml 1250 ml Balance 300 ml -200 ml Exam Constitutional: alert, obese, oriented Eyes: EOMI ENMT: nl external ears & nose Neck: non-tender Respiratory: diminished breath sounds Cardiovascular: nl pulses Gastrointestinal: non-tender, soft Musculoskeletal: nl extremities to inspection Extremities: normal pulses Neurological: nl mental status, nl speech Lymph: nontender Results Result Diagram: 09/08/16 0550 09/08/16 0640 Results 24 hrs Laboratory Tests Test 09/08/16 05:50 09/08/16 06:40 White Blood Count 3.0 L Red Blood Count 2.60 L Hemoglobin 8.0 L Hematocrit 26.2 L Mean Corpuscular Volume 100.8 Mean Corpuscular Hemoglobin 30.8 Mean Corpuscular Hemoglobin Concent 30.5 L Red Cell Distribution Width 14.5 Platelet Count 49 L Mean Platelet Volume 11.6 H Neutrophils % 61.0 Band Neutrophils % 1.0 Lymphocytes % 28.0 Monocytes % 3.0 Eosinophils % 7.0 Neutrophils # 1.8 Lymphocytes # 0.8 Monocytes # 0.1 L Eosinophils # 0.2 Platelet Estimate PLT APPEAR DECREASED Sodium Level 137 Potassium Level 3.9 Chloride Level 96 L Carbon Dioxide Level 32 H Anion Gap 13 Blood Urea Nitrogen 15 Creatinine 0.79 Glucose Level 104 Calcium Level 8.4 Thyroid Stimulating Hormone (TSH) 16.000 H Medications Medications Current Medications IV Flush 10 ml 10 ml PRN PRN IV IV PROTOCOL; Start 08/31/16 at 18:30 Meropenem 100 ml @ 200 mls/hr Q8 IVPB Last administered on 09/08/16 13:10; Admin Dose 200 MLS/HR; Start 09/01/16 at 14:00 Voriconazole/ Sodium Chloride (Vfend Iv/NS) 100 ml @ 50 mls/hr Q12 IVPB Last administered on 09/08/16 09:32; Admin Dose 50 MLS/HR; Start 09/02/16 at 10:00 Metoprolol Tartrate (Lopressor) 5 mg Q4H PRN IV ELEVATED HEART RATE Last administered on 09/02/16 17:09; Admin Dose 5 MG; Start 09/02/16 at 17:30 Morphine Sulfate (morphine) 4 mg Q3 PRN IV PAIN Last administered on 09/08/16 16:42; Admin Dose 4 MG; Start 09/05/16 at 17:00 Morphine Sulfate (Ms Contin (Er)) 30 mg BID PO Last administered on 09/08/16 09:31; Admin Dose 30 MG; Start 09/05/16 at 21:00 Docusate Sodium (Colace) 100 mg TID PO Last administered on 09/08/16 13:10; Admin Dose 100 MG; Start 09/06/16 at 21:00 Bisacodyl (Dulcolax) 5 mg DAILY PRN PO CONSTIPATION Last administered on 16:28; Admin Dose 5 MG; Start 09/06/16 at 16:00 Pantoprazole (Protonix Tab) 40 mg DAILY@06 PO Last administered on 09/08/16 06 :15; Admin Dose 40 MG; Start 09/07/16 at 06:00 Atorvastatin Calcium (Lipitor) 20 mg QHS PO ; Start 09/08/16 at 21:00 Docusate Sodium (Colace) 100 mg BID PRN PO CONSTIPATION; Start 09/08/16 at 13: 00 Escitalopram Oxalate (Lexapro) 10 mg DAILY PO ; Start 09/09/16 at 09:00 Senna (Senokot) 1 tab Q12H PRN PO CONSTIPATION; Start 09/08/16 at 13:00 Trazodone HCl (Desyrel) 50 mg QHS PO ; Start 09/08/16 at 21:00 TRAMAINE ELLSWORTH Sep 08, 2016 16:48
--- NOTE | 2016-09-08 17:20 | RADRPT ---
Echocardiogram Report Patient Name: ELKIN JIMENEZ Gender: Male Date: 1955 Study Date: 08-Sep-2016 Condenser Setter: Braeden Myers [facility] Location: [facility] Ref. Physician: MRAIAA GAYTAN Quality: Technically Difficult Study Procedures: Transthoracic echocardiogram with complete 2D, M-Mode, and doppler examination. Indications: Tachycardia. 2D/M Mode Doppler Measurement Value Normal Ranges Measurement Value Normal Ranges LVIDd 2D 5.4 3.5 - 5.6 cm AV Peak Oh 1.4 m/sec LVIDs 2D 2.6 2.1 - 4.1 cm AV Peak PG 8.0 mmHg FS 2D 51.0 % LVOT Peak Oh 1.1 m/sec LVPWd 2D 0.9 0.6 - 1.1 cm LVOT Peak PG 4.0 mmHg IVSd 2D 1.0 0.6 - 1.1 cm IVS/LVPW 2D 1.1 AoR Diam 2D 3.7 2.0 - 3.7 cm LA/Ao 2D 1 0 - 1 EDV 2D 155.0 cm3 ESV 2D 18.2 cm3 LA Dimen 2D 3.8 2.3 - 4.0 cm Findings Left Ventricle: Normal left ventricular systolic function. Normal left ventricular cavity size. Normal left ventricular wall thickness. Ejection fraction is visually estimated at 60 %. Abnormal Diastolic Function. Right Ventricle: Normal right ventricular size. Normal right ventricular systolic function. Left Atrium: The left atrium is normal in size. Right Atrium: The right atrium is normal in size. Mitral Valve: Mitral valve leaflets appear mildly thickened. Mild mitral annular calcification. Trace mitral regurgitation. Aortic Valve: No significant aortic stenosis or insufficiency. Aortic cusps appear mildly calcified. Tricuspid Valve: Normal appearance and function of the tricuspid valve with trace physiologic regurgitation. Normal right ventricular systolic pressure. Pulmonic Valve: Pulmonic valve not well visualized. Pericardium: Normal pericardium with no significant pericardial effusion. Aorta: Normal aortic root. IVC: The IVC is not well visualized. Conclusions 1.Normal left ventricular systolic function. Normal left ventricular cavity size. Normal left ventricular wall thickness. Ejection fraction is visually estimated at 60 %. Abnormal Diastolic Function. 2.Mitral valve leaflets appear mildly thickened. Mild mitral annular calcification. Trace mitral regurgitation. 3.Normal appearance and function of the tricuspid valve with trace physiologic regurgitation. Normal right ventricular systolic pressure. Electronically Signed By: Mariaa Gaytan 08-Sep-2016 17:20:11 -0700 Patient Name: ELKIN JIMENEZ Study Date: 08-Sep-[id number]
[2016-09-08] MEDS: traZODone 50 MG TAB PO SCH (20:29)
[2016-09-08] MEDS: ATORVASTATIN 20 MG TAB PO SCH (20:29)
--- NOTE | 2016-09-08 21:03 | RADRPT ---
Vent Rate: 95 bpm RR Interval: 0 msec NH Interval: 186 msec QRS Duration: 78 msec QT Interval: 354 msec QTC Interval: 444 msec P-R-T [place]: 73 - 19 - 85 degrees Sinus rhythm with marked sinus arrhythmia Otherwise normal ECG Electronically Signed By: Vinnie Lawrence [id number]
[2016-09-09] VITALS (13 sets, daily range): BP systolic 104–167; BP diastolic 71–82; PULSE 77–107; RESP 18–25
[2016-09-09] MEDS: morphine 4 MG/ML VIAL IV PRN ×4 (04:34→23:25)
[2016-09-09 06:15] LABS: ADD SCAN DIFF NO
[2016-09-09] MEDS: LEVOTHYROXINE 50 MCG TAB PO SCH (06:19)
[2016-09-09] MEDS: PANTOPRAZOLE (EC) 40 MG TAB PO SCH (06:19)
[2016-09-09] MEDS: MEROPENEM 1 GM/100 ML (PMX) 100 ML IVPB SCH ×3 (06:19→22:06)
[2016-09-09 06:26] LABS: ABNORMAL IP MESSAGE 1; BASOPHILS % 0.4 % (0.0-2.0); EOSINOPHILS # 0.1 10^3/ul (0.0-0.5); HEMATOCRIT 25.4 % (42.0-52.0); HEMOGLOBIN 7.8 g/dl (14.0-18.0); LYMPHOCYTES % 36.8 % (15.0-51.0); MEAN CORPUSCULAR HEMOGLOBIN 31.5 pg (29.0-33.0); MEAN CORPUSCULAR HGB CONC 30.7 g/dl (32.0-37.0); MEAN CORPUSCULAR VOLUME 102.4 fl (82.0-101.0); MEAN PLATELET VOLUME 11.4 fl (7.4-10.4); MONOCYTE # 0.2 10^3/ul (0.3-0.9); MONOCYTES % 8.9 % (0.0-11.0); NEUTROPHIL # 1.3 10^3/ul (1.6-7.5); NEUTROPHILS % 48.5 % (39.0-77.0); PLATELET COUNT 51 10^3/UL (140-415); RED BLOOD COUNT 2.48 10^6/ul (4.70-6.10); RED CELL DISTRIBUTION WIDTH 14.8 % (11.5-14.5); WHITE BLOOD COUNT 2.6 10^3/ul (4.8-10.8)
[2016-09-09 06:35] LABS: CHOL/HDL RATIO 2.5 RATIO
[2016-09-09 06:48] LABS: POTASSIUM 3.5 mmol/L (3.5-5.1)
[2016-09-09 06:50] LABS: CREATININE 0.82 mg/dl (0.61-1.24)
[2016-09-09 06:51] LABS: CALCIUM 7.8 mg/dl (8.4-10.2)
[2016-09-09] MEDS: ESCITALOPRAM 10 MG TAB PO SCH (08:20)
[2016-09-09] MEDS: morphine (ER) 30 MG TAB PO SCH ×2 (08:20→20:02)
[2016-09-09] MEDS: DOCUSATE SODIUM 100 MG CAP PO SCH ×3 (08:20→20:02)
[2016-09-09] MEDS: SOD CHLORIDE 0.9% IVPB SCH ×2 (08:21→19:46)
[2016-09-09] MEDS: VORICONAZOLE IVPB SCH ×2 (08:21→19:46)
--- NOTE | 2016-09-09 08:54 | CONS ---
DATE OF ADMISSION: 09/01/2016 DATE OF CONSULTATION: 09/08/2016 TYPE OF CONSULTATION: Cardiology REASON FOR CONSULTATION: Tachycardia, pause on telemetry monitoring. Assess for significant arrhythmias. REQUESTING PHYSICIAN: Maryam Lincoln MD HISTORY OF PRESENT ILLNESS: Ms. Garcia is a 60-year-old male with a history of advanced nonsmall cell lung cancer, with ongoing chemotherapy, hypertension, coronary artery disease, dyslipidemia, paroxysmal atrial fibrillation, DVT in the upper extremities, and hypothyroidism, who had initially presented on 2016 after chemotherapy with complaints of shortness of breath and questionable hemoptysis. Upon arrival initially temperature was 97.4, blood pressure 181/109 , pulse 115, respiratory rate 37, 97% on 100%. The patient's labs were initially notable for a white count of 3.7, hemoglobin 10.9, platelet count of 81. Sodium 136, BUN 23, INR of 1.0. ABG revealing a pH of 7.436, a PaO2 of 535 , a pCO2 of 37. Sodium 136, creatinine 0.8. UA negative. The patient had flu swabs which were both negative and a TB gold quant which was negative. The patient's electrocardiogram revealed sinus tachycardia, rate of 107, normal axis , normal intervals, with nonspecific ST and T-wave abnormalities. Patient was subsequently admitted to the floor and since admit to the floor, he has been followed by infectious disease services and hematology/oncology, in addition to primary. The patient is being treated for a severe pneumonia and bronchitis with broad spectrum antibiotics, including meropenem and for a possible fungal pneumonia, likely chronic, cavitary pulmonary aspergillosis, on Voriconazole. While being monitored on telemetry the patient has had ongoing sinus tachycardia in the low 100s and today was noted to have a pause of a short duration. Given these findings, a cardiac consultation was requested to assess for significant arrhythmia. At this time the patient denies chest pain, but does state she feels palpitations. PAST MEDICAL HISTORY: As above in the HPI. MEDICATIONS CURRENTLY IN-HOSPITAL: 1. Lexapro 10 mg daily. 2. Synthroid 50 mcg daily. 3. Lipitor 20 mg at bedtime. 4. Colace p.r.n. 5. Senna p.r.n. 6. Protonix 40 mg daily. 7. Dulcolax p.r.n. 8. Morphine sulfate 30 mg p.o. b.i.d. 9. Meropenem q.8. 10. Metoprolol IV. ALLERGIES: NO KNOWN DRUG ALLERGIES. SOCIAL HISTORY: No current tobacco, but prior tobacco intake prior to diagnosis of cancer. No ETOH or illicit drug use. FAMILY HISTORY: No history of sudden cardiac or early CAD. REVIEW OF SYSTEMS: As above in the HPI. CONSTITUTIONAL: No fevers or chills. PULMONARY: Shortness of breath and lung cancer. CARDIOVASCULAR: No current chest pain, tachycardia, pause. GASTROINTESTINAL: No vomiting. GENITOURINARY: No hematuria. MUSCULOSKELETAL: Degenerative joint disease. PSYCHIATRIC: The patient denies depression. NEUROLOGIC: No documented history of CVA. PHYSICAL EXAMINATION: VITAL SIGNS: Temperature 98, blood pressure 122/83, pulse 100, respiratory rate 22, saturating 96%. GENERAL: The patient is alert, awake, in no acute distress, complaining of mild shortness of breath. NECK: JVP of approximately 9 cm of water. CHEST: Upper airway transient rhonchorous sounds. HEART: Tachycardic, regular. Normal S1, S2. A I/ systolic murmur, nondisplaced PMI. ABDOMEN: Positive bowel sounds, soft. EXTREMITIES: No pitting edema, 1+ pulses bilateral posterior tibial. LABORATORY: As above in the HPI, with most recently from today sodium 137, potassium 0.9, creatinine 0.7, BUN of 15. White blood cell count 5.2, hemoglobin 9.4, platelet count of 46. INR of 1.0. UA borderline. IMAGING STUDIES: As above in the HPI, with chest x-ray most recently from the 8th revealing stable right upper lobe consolidation and volume loss with a shift in the mediastinum towards the right, and CTA revealing no pulmonary embolism. Extensive right lung consolidation and right upper lobe infiltrate and rightward shift of mediastinum. Partial occlusion of the right middle lobe bronchus. ECG as above in the HPI. No further electrocardiograms for my review at this time. IMPRESSION: 1. Cardiac arrhythmia, with currently rhythm most consistent with sinus tachycardia, but also having pauses. Stress management. 2. Abnormal electrocardiogram. Assess for acute coronary artery syndrome. 3. Hypertension, labile. 4. Dyslipidemia. 5. Pneumonia and bronchitis. 6. Lung cancer. 7. Hypothyroidism. 8. Anemia. 9. Thrombocytopenia, severe. 10. Prior hemoptysis. RECOMMENDATIONS: 1. At this time would maintain the patient on telemetry monitoring to follow rhythm and rate control closely. 2. Check serial EKGs to assess for any significant ongoing changes. EKG in the morning, EKG for any complaints of chest pain or changes in rhythm. 3. Will hold off on initiation of a beta matthew at this time, given also pause. 4. Check a TSH to ensure that the patient's current thyroid status is not affecting both tachyarrhythmias and pauses. 5. Continue the patient's antibiotics, antifungal and follow up all culture data. 6. Continue taking Synthroid for now, with adjustment as necessary, as above. 7. Follow up all culture data. 8. Check a 2D echocardiogram to further assess the patient's ejection fraction , wall motion, and rule out any major valve abnormalities. Thank you for allowing me to take part in the care of this patient. I will continue to follow him along very closely with you. Further recommendations will be made as the patient progresses through his inpatient hospital clinical course. Dictated By: MARIAA JOY/BLANCA Conf#: [id number] DID#: [id number] CC: MARYAM LINCOLN MD;*EndCC* MTDD
--- NOTE | 2016-09-09 10:36 | CONS ---
Date/Time of Note Date/Time of Note DATE: 09/09/16 TIME: 10:36 Assessment/Plan Assessment/Plan Chief Complaint/Hosp Course metastatic lung CANCER, NSCLC - ON CHEMO PANCYTOPENIA POST CHEMO Hypoxemic respiratory failure, possibly secondary to a reaction to chemotherapy. History of coronary artery disease. History of chronic obstructive pulmonary disease PLAN: Continue broad-spectrum antibiotics, currently on Voriconazole, meropenem and vancomycin.- PER ID - continue meropenem (09/01/16-) to complete 7-8 day course for possible HCAP - continue IV voriconazole 200mg q12 hrs. - f/u respiratory panel by [facility] (negative), mycoplasma by [facility] (pending), 1,3- [id number] (negative), cocci serology (negative), aspergillus antigen and antibody (not detected). - Records from [place] were reviewed (concern for necrotizing aspergillus but unable to do biopsy) - DC droplet precautions Deep venous thrombosis and gastrointestinal prophylaxis. chemo on hold Problems: Consultation Date/Type/Reason Admit Date/Time Sep 01, 2016 at 14:47 Initial Consult Date 09/01/16 Type of Consultation: [facility] Referring Provider: MARYAM FARMER MD 24 HR Interval Summary Free Text/Dictation ALL NOTED D/W RN AND PT Exam/Review of Systems Vital Signs Vitals Vital Signs Date Time Temp Pulse Resp B/P Pulse Ox O2 Delivery O2 Flow Rate FiO2 09/09/16 08:04 97 09/09/16 07:35 Nasal Cannula 1.0 09/09/16 07:20 98.0 24 121/78 93 Intake and Output 09/08/16 09/08/16 09/09/16 15:00 23:00 07:00 Intake Total 200 ml 900 ml 700 ml Output Total 575 ml Balance 200 ml 900 ml 125 ml Exam Constitutional: alert, oriented, well developed Psych: nl mood/affect, no complaints Head: atraumatic, normocephalic Eyes: EOMI, PERRL, nl conjunctiva, nl lids, nl sclera Neck: non-tender, supple Respiratory: clear to auscultation, normal air movement Cardiovascular: nl pulses, regular rate and rhythm Gastrointestinal: nl liver, spleen, non-tender, soft Results Result Diagram: 09/09/16 0532 09/09/16 0532 Results 24 hrs Laboratory Tests Test 09/08/16 18:40 09/09/16 00:45 09/09/16 05:32 Troponin I < 0.012 < 0.012 White Blood Count 2.6 L Red Blood Count 2.48 L Hemoglobin 7.8 L Hematocrit 25.4 L Mean Corpuscular Volume 102.4 H Mean Corpuscular Hemoglobin 31.5 Mean Corpuscular Hemoglobin Concent 30.7 L Red Cell Distribution Width 14.8 H Platelet Count 51 L Mean Platelet Volume 11.4 H Neutrophils % 48.5 Lymphocytes % 36.8 Monocytes % 8.9 Eosinophils % 5.0 Basophils % 0.4 Nucleated Red Blood Cells % 0.0 Neutrophils # 1.3 L Lymphocytes # 1.0 Monocytes # 0.2 L Eosinophils # 0.1 Basophils # 0.0 Nucleated Red Blood Cells # 0.0 Sodium Level 140 Potassium Level 3.5 Chloride Level 101 Carbon Dioxide Level 31 Anion Gap 12 Blood Urea Nitrogen 12 Creatinine 0.82 Glucose Level 90 Calcium Level 7.8 L Triglycerides Level 97 Cholesterol Level 87 L LDL Cholesterol, Calculated 34 HDL Cholesterol 34 Cholesterol/HDL Ratio 2.5 Medications Medications Current Medications IV Flush 10 ml 10 ml PRN PRN IV IV PROTOCOL; Start 08/31/16 at 18:30 Meropenem 100 ml @ 200 mls/hr Q8 IVPB Last administered on 09/09/16 06:19; Admin Dose 200 MLS/HR; Start 09/01/16 at 14:00 Voriconazole/ Sodium Chloride (Vfend Iv/NS) 100 ml @ 50 mls/hr Q12 IVPB Last administered on 09/09/16 08:21; Admin Dose 50 MLS/HR; Start 09/02/16 at 10:00 Metoprolol Tartrate (Lopressor) 5 mg Q4H PRN IV ELEVATED HEART RATE Last administered on 09/02/16 17:09; Admin Dose 5 MG; Start 09/02/16 at 17:30 Morphine Sulfate (morphine) 4 mg Q3 PRN IV PAIN Last administered on 09/09/16 04:34; Admin Dose 4 MG; Start 09/05/16 at 17:00 Morphine Sulfate (Ms Contin (Er)) 30 mg BID PO Last administered on 09/09/16 08:20; Admin Dose 30 MG; Start 09/05/16 at 21:00 Docusate Sodium (Colace) 100 mg TID PO Last administered on 09/09/16 08:20; Admin Dose 100 MG; Start 09/06/16 at 21:00 Bisacodyl (Dulcolax) 5 mg DAILY PRN PO CONSTIPATION Last administered on 16:28; Admin Dose 5 MG; Start 09/06/16 at 16:00 Pantoprazole (Protonix Tab) 40 mg DAILY@06 PO Last administered on 09/09/16 06 :19; Admin Dose 40 MG; Start 09/07/16 at 06:00 Atorvastatin Calcium (Lipitor) 20 mg QHS PO Last administered on 09/08/16 20: 29; Admin Dose 20 MG; Start 09/08/16 at 21:00 Docusate Sodium (Colace) 100 mg BID PRN PO CONSTIPATION; Start 09/08/16 at 13: 00 Escitalopram Oxalate (Lexapro) 10 mg DAILY PO Last administered on 09/09/16 08 :20; Admin Dose 10 MG; Start 09/09/16 at 09:00 Senna (Senokot) 1 tab Q12H PRN PO CONSTIPATION; Start 09/08/16 at 13:00 Trazodone HCl (Desyrel) 50 mg QHS PO Last administered on 09/08/16 20:29; Admin Dose 50 MG; Start 09/08/16 at 21:00 DAHIANA BABCOCK MD Sep 09, 2016 10:36
--- NOTE | 2016-09-09 11:14 | PN ---
Date/Time of Note Date/Time of Note DATE: 09/09/16 TIME: 11:13 Assessment/Plan VTE Prophylaxis VTE Prophylaxis Intervention: other Lines/Catheters IV Catheter Type (from Nrsg): PICC Line Central line still needed: Yes Assessment/Plan Chief Complaint/Hosp Course - Severe sepsis due to pneumonia/bronchitis - per ID- Dr Tesfaye - Advanced non-small cell lung CA, s/p chemo - per dr Slaughter in oncology - Pancytopenia due to chemotherapy - advanced non-small cell lung CA, on biweekly chemotherapy infusion x2 years - h/o fungal pneumonia, on maintenance voriconazole - h/o post-obstructive pneumonia - h/o HTN, CAD, hyperlipidemia - h/o paroxysmal A fib - h/o DVT in LUE - h/o hypothyroidism - Hypomagnesium- resolved Problems: Subjective 24 Hr Interval Summary Free Text/Dictation Patient resting comfortably Exam/Review of Systems Vital Signs Vitals Vital Signs Date Time Temp Pulse Resp B/P Pulse Ox O2 Delivery O2 Flow Rate FiO2 09/09/16 08:04 97 09/09/16 07:35 Nasal Cannula 1.0 09/09/16 07:20 98.0 24 121/78 93 Intake and Output 09/08/16 09/08/16 09/09/16 15:00 23:00 07:00 Intake Total 200 ml 900 ml 700 ml Output Total 575 ml Balance 200 ml 900 ml 125 ml Exam Constitutional: well developed Head: atraumatic, normocephalic Neck: supple Respiratory: diminished breath sounds Cardiovascular: regular rate and rhythm Gastrointestinal: non-tender, soft Extremities: normal pulses Results Result Diagram: 09/09/16 0532 09/09/16 0532 Results 24 hrs Laboratory Tests Test 09/08/16 18:40 09/09/16 00:45 09/09/16 05:32 Troponin I < 0.012 < 0.012 White Blood Count 2.6 L Red Blood Count 2.48 L Hemoglobin 7.8 L Hematocrit 25.4 L Mean Corpuscular Volume 102.4 H Mean Corpuscular Hemoglobin 31.5 Mean Corpuscular Hemoglobin Concent 30.7 L Red Cell Distribution Width 14.8 H Platelet Count 51 L Mean Platelet Volume 11.4 H Neutrophils % 48.5 Lymphocytes % 36.8 Monocytes % 8.9 Eosinophils % 5.0 Basophils % 0.4 Nucleated Red Blood Cells % 0.0 Neutrophils # 1.3 L Lymphocytes # 1.0 Monocytes # 0.2 L Eosinophils # 0.1 Basophils # 0.0 Nucleated Red Blood Cells # 0.0 Sodium Level 140 Potassium Level 3.5 Chloride Level 101 Carbon Dioxide Level 31 Anion Gap 12 Blood Urea Nitrogen 12 Creatinine 0.82 Glucose Level 90 Calcium Level 7.8 L Triglycerides Level 97 Cholesterol Level 87 L LDL Cholesterol, Calculated 34 HDL Cholesterol 34 Cholesterol/HDL Ratio 2.5 Medications Medications Current Medications IV Flush 10 ml 10 ml PRN PRN IV IV PROTOCOL; Start 08/31/16 at 18:30 Meropenem 100 ml @ 200 mls/hr Q8 IVPB Last administered on 09/09/16 06:19; Admin Dose 200 MLS/HR; Start 09/01/16 at 14:00 Voriconazole/ Sodium Chloride (Vfend Iv/NS) 100 ml @ 50 mls/hr Q12 IVPB Last administered on 09/09/16 08:21; Admin Dose 50 MLS/HR; Start 09/02/16 at 10:00 Metoprolol Tartrate (Lopressor) 5 mg Q4H PRN IV ELEVATED HEART RATE Last administered on 09/02/16 17:09; Admin Dose 5 MG; Start 09/02/16 at 17:30 Morphine Sulfate (morphine) 4 mg Q3 PRN IV PAIN Last administered on 09/09/16 04:34; Admin Dose 4 MG; Start 09/05/16 at 17:00 Morphine Sulfate (Ms Contin (Er)) 30 mg BID PO Last administered on 09/09/16 08:20; Admin Dose 30 MG; Start 09/05/16 at 21:00 Docusate Sodium (Colace) 100 mg TID PO Last administered on 09/09/16 08:20; Admin Dose 100 MG; Start 09/06/16 at 21:00 Bisacodyl (Dulcolax) 5 mg DAILY PRN PO CONSTIPATION Last administered on 16:28; Admin Dose 5 MG; Start 09/06/16 at 16:00 Pantoprazole (Protonix Tab) 40 mg DAILY@06 PO Last administered on 09/09/16 06 :19; Admin Dose 40 MG; Start 09/07/16 at 06:00 Atorvastatin Calcium (Lipitor) 20 mg QHS PO Last administered on 09/08/16 20: 29; Admin Dose 20 MG; Start 09/08/16 at 21:00 Docusate Sodium (Colace) 100 mg BID PRN PO CONSTIPATION; Start 09/08/16 at 13: 00 Escitalopram Oxalate (Lexapro) 10 mg DAILY PO Last administered on 09/09/16 08 :20; Admin Dose 10 MG; Start 09/09/16 at 09:00 Senna (Senokot) 1 tab Q12H PRN PO CONSTIPATION; Start 09/08/16 at 13:00 Trazodone HCl (Desyrel) 50 mg QHS PO Last administered on 09/08/16 20:29; Admin Dose 50 MG; Start 09/08/16 at 21:00 SAQIB DAVIS Sep 09, 2016 11:14
--- NOTE | 2016-09-09 14:13 | CONS ---
Date/Time of Note Date/Time of Note DATE: 09/09/16 TIME: 14:09 Assessment/Plan Assessment/Plan Additional Assessment/Plan Abnormal electrocardiogram. Hypertension, labile. Dyslipidemia. Pneumonia. Lung cancer. Hypothyroidism. Anemia. Thrombocytopenia BP controlled Continue Meropenem Continue Voriconazole Continue Levothyroxine Continue Lipitor Continue GI and DVT Prophylaxis Consultation Date/Type/Reason Admit Date/Time Sep 01, 2016 at 14:47 Constitutional: requiring O2 Eyes: no complaints ENT: no complaints Respiratory: shortness of breath Cardiovascular: no complaints Gastrointestinal: no complaints Genitourinary: no complaints Musculoskeletal: no complaints Skin: no complaints Neurologic: no complaints Endocrine: no complaints Lymphatic: no complaints Psychological: no complaints Immunologic: no complaints Past Medical History Medical History: cancer, coronary artery disease, deep vein thrombosis, high cholesterol, hypertension, hypothyroid, urinary tract infection, other (anemia, A fib, 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) Social History Alcohol Use: none Smoking Status: Former smoker Drug Use: none Exam/Review of Systems Vital Signs Vitals Vital Signs Date Time Temp Pulse Resp B/P Pulse Ox O2 Delivery O2 Flow Rate FiO2 09/09/16 12:16 96 09/09/16 11:31 97.9 24 131/80 96 09/09/16 07:35 Nasal Cannula 1.0 Intake and Output 09/08/16 09/08/16 09/09/16 15:00 23:00 07:00 Intake Total 200 ml 900 ml 700 ml Output Total 575 ml Balance 200 ml 900 ml 125 ml Exam Constitutional: alert Head: atraumatic, normocephalic Neck: non-tender, supple Respiratory: diminished breath sounds Cardiovascular: regular rate and rhythm Gastrointestinal: nl liver, spleen, non-tender, soft Extremities: normal pulses Results Result Diagram: 09/09/16 0532 09/09/16 0532 Results 24 hrs Laboratory Tests Test 09/08/16 18:40 09/09/16 00:45 09/09/16 05:32 Troponin I < 0.012 < 0.012 White Blood Count 2.6 L Red Blood Count 2.48 L Hemoglobin 7.8 L Hematocrit 25.4 L Mean Corpuscular Volume 102.4 H Mean Corpuscular Hemoglobin 31.5 Mean Corpuscular Hemoglobin Concent 30.7 L Red Cell Distribution Width 14.8 H Platelet Count 51 L Mean Platelet Volume 11.4 H Neutrophils % 48.5 Lymphocytes % 36.8 Monocytes % 8.9 Eosinophils % 5.0 Basophils % 0.4 Nucleated Red Blood Cells % 0.0 Neutrophils # 1.3 L Lymphocytes # 1.0 Monocytes # 0.2 L Eosinophils # 0.1 Basophils # 0.0 Nucleated Red Blood Cells # 0.0 Sodium Level 140 Potassium Level 3.5 Chloride Level 101 Carbon Dioxide Level 31 Anion Gap 12 Blood Urea Nitrogen 12 Creatinine 0.82 Glucose Level 90 Calcium Level 7.8 L Triglycerides Level 97 Cholesterol Level 87 L LDL Cholesterol, Calculated 34 HDL Cholesterol 34 Cholesterol/HDL Ratio 2.5 Medications Medications Current Medications IV Flush 10 ml 10 ml PRN PRN IV IV PROTOCOL; Start 08/31/16 at 18:30 Meropenem 100 ml @ 200 mls/hr Q8 IVPB Last administered on 09/09/16 13:16; Admin Dose 200 MLS/HR; Start 09/01/16 at 14:00 Voriconazole/ Sodium Chloride (Vfend Iv/NS) 100 ml @ 50 mls/hr Q12 IVPB Last administered on 09/09/16 08:21; Admin Dose 50 MLS/HR; Start 09/02/16 at 10:00 Metoprolol Tartrate (Lopressor) 5 mg Q4H PRN IV ELEVATED HEART RATE Last administered on 09/02/16 17:09; Admin Dose 5 MG; Start 09/02/16 at 17:30 Morphine Sulfate (morphine) 4 mg Q3 PRN IV PAIN Last administered on 09/09/16 11:38; Admin Dose 4 MG; Start 09/05/16 at 17:00 Morphine Sulfate (Ms Contin (Er)) 30 mg BID PO Last administered on 09/09/16 08:20; Admin Dose 30 MG; Start 09/05/16 at 21:00 Docusate Sodium (Colace) 100 mg TID PO Last administered on 09/09/16 13:16; Admin Dose 100 MG; Start 09/06/16 at 21:00 Bisacodyl (Dulcolax) 5 mg DAILY PRN PO CONSTIPATION Last administered on 16:28; Admin Dose 5 MG; Start 09/06/16 at 16:00 Pantoprazole (Protonix Tab) 40 mg DAILY@06 PO Last administered on 09/09/16 06 :19; Admin Dose 40 MG; Start 09/07/16 at 06:00 Atorvastatin Calcium (Lipitor) 20 mg QHS PO Last administered on 09/08/16 20: 29; Admin Dose 20 MG; Start 09/08/16 at 21:00 Docusate Sodium (Colace) 100 mg BID PRN PO CONSTIPATION; Start 09/08/16 at 13: 00 Escitalopram Oxalate (Lexapro) 10 mg DAILY PO Last administered on 09/09/16 08 :20; Admin Dose 10 MG; Start 09/09/16 at 09:00 Senna (Senokot) 1 tab Q12H PRN PO CONSTIPATION; Start 09/08/16 at 13:00 Trazodone HCl (Desyrel) 50 mg QHS PO Last administered on 09/08/16 20:29; Admin Dose 50 MG; Start 09/08/16 at 21:00 ANDRÉS CAVAZOS M.D. Sep 09, 2016 14:13
[2016-09-09] MEDS: ATORVASTATIN 20 MG TAB PO SCH (20:02)
[2016-09-09] MEDS: traZODone 50 MG TAB PO SCH (20:02)
--- NOTE | 2016-09-09 22:01 | CONS ---
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 - Records from [place] were reviewed (concern for necrotizing aspergillus but unable to do biopsy) - Management d/w pt - Above d/w Dr. Tesfaye Problems: Consultation Date/Type/Reason Admit Date/Time Sep 01, 2016 at 14:47 Initial Consult Date 09/01/16 Type of Consultation: Infectious Disease Referring Provider: MARYAM FARMER MD 24 HR Interval Summary Free Text/Dictation Pt reports unable to ambulate more d/t short IV & O2 extensions. States SOB and cough is slowly improving. Exam/Review of Systems Vital Signs Vitals Vital Signs Date Time Temp Pulse Resp B/P Pulse Ox O2 Delivery O2 Flow Rate FiO2 09/09/16 20:34 77 09/09/16 20:00 98.2 24 113/77 95 Nasal Cannula 1.0 Intake and Output 09/08/16 09/08/16 09/09/16 15:00 23:00 07:00 Intake Total 200 ml 900 ml 700 ml Output Total 575 ml Balance 200 ml 900 ml 125 ml Exam Constitutional: alert, obese, oriented, well developed Head: atraumatic, normocephalic Neck: supple, non-tender Respiratory: congested cough, diminished breath sounds (RUL), normal air movement Cardiovascular: nl pulses, regular rate and rhythm Gastrointestinal: non-tender, soft Musculoskeletal: nl extremities to inspection Extremities: No clubbing, No cyanosis, No edema Neurological: nl mental status Skin: nl turgor, other (ecchymosis noted to BUE) No rash or lesions Results Result Diagram: 09/09/1632 09/09/16 0532 Results 24 hrs Laboratory Tests Test 09/09/16 00:45 09/09/16 05:32 Troponin I < 0.012 White Blood Count 2.6 L Red Blood Count 2.48 L Hemoglobin 7.8 L Hematocrit 25.4 L Mean Corpuscular Volume 102.4 H Mean Corpuscular Hemoglobin 31.5 Mean Corpuscular Hemoglobin Concent 30.7 L Red Cell Distribution Width 14.8 H Platelet Count 51 L Mean Platelet Volume 11.4 H Neutrophils % 48.5 Lymphocytes % 36.8 Monocytes % 8.9 Eosinophils % 5.0 Basophils % 0.4 Nucleated Red Blood Cells % 0.0 Neutrophils # 1.3 L Lymphocytes # 1.0 Monocytes # 0.2 L Eosinophils # 0.1 Basophils # 0.0 Nucleated Red Blood Cells # 0.0 Sodium Level 140 Potassium Level 3.5 Chloride Level 101 Carbon Dioxide Level 31 Anion Gap 12 Blood Urea Nitrogen 12 Creatinine 0.82 Glucose Level 90 Calcium Level 7.8 L Triglycerides Level 97 Cholesterol Level 87 L LDL Cholesterol, Calculated 34 HDL Cholesterol 34 Cholesterol/HDL Ratio 2.5 Medications Medications Current Medications IV Flush 10 ml 10 ml PRN PRN IV IV PROTOCOL; Start 08/31/16 at 18:30 Meropenem 100 ml @ 200 mls/hr Q8 IVPB Last administered on 09/09/16 13:16; Admin Dose 200 MLS/HR; Start 09/01/16 at 14:00 Voriconazole/ Sodium Chloride (Vfend Iv/NS) 100 ml @ 50 mls/hr Q12 IVPB Last administered on 09/09/16 19:46; Admin Dose 50 MLS/HR; Start 09/02/16 at 10:00 Metoprolol Tartrate (Lopressor) 5 mg Q4H PRN IV ELEVATED HEART RATE Last administered on 09/02/16 17:09; Admin Dose 5 MG; Start 09/02/16 at 17:30 Morphine Sulfate (morphine) 4 mg Q3 PRN IV PAIN Last administered on 09/09/16 15:45; Admin Dose 4 MG; Start 09/05/16 at 17:00 Morphine Sulfate (Ms Contin (Er)) 30 mg BID PO Last administered on 09/09/16 20:02; Admin Dose 30 MG; Start 09/05/16 at 21:00 Docusate Sodium (Colace) 100 mg TID PO Last administered on 09/09/16 20:02; Admin Dose 100 MG; Start 09/06/16 at 21:00 Bisacodyl (Dulcolax) 5 mg DAILY PRN PO CONSTIPATION Last administered on 16:28; Admin Dose 5 MG; Start 09/06/16 at 16:00 Pantoprazole (Protonix Tab) 40 mg DAILY@06 PO Last administered on 09/09/16 06 :19; Admin Dose 40 MG; Start 09/07/16 at 06:00 Atorvastatin Calcium (Lipitor) 20 mg QHS PO Last administered on 09/09/16 20: 02; Admin Dose 20 MG; Start 09/08/16 at 21:00 Docusate Sodium (Colace) 100 mg BID PRN PO CONSTIPATION; Start 09/08/16 at 13: 00 Escitalopram Oxalate (Lexapro) 10 mg DAILY PO Last administered on 09/09/16 08 :20; Admin Dose 10 MG; Start 09/09/16 at 09:00 Senna (Senokot) 1 tab Q12H PRN PO CONSTIPATION; Start 09/08/16 at 13:00 Trazodone HCl (Desyrel) 50 mg QHS PO Last administered on 09/09/16 20:02; Admin Dose 50 MG; Start 09/08/16 at 21:00 LUKE TESFAYE M.D. 09/10/16 0059: Assessment/Plan Assessment/Plan Additional Assessment/Plan Brien attestation: I discussed the management with ELIAZAR Love and agree with above. Exam/Review of Systems Results Result Diagram: 09/09/16 0532 09/09/16 0532 STEPHEN LOEV NP Sep 09, 2016 22:01 LUKE TESFAYE M.D. Sep 10, 2016 23:49
[2016-09-10] VITALS (13 sets, daily range): BP systolic 101–170; BP diastolic 64–91; PULSE 68–104; RESP 18–24
[2016-09-10] MEDS: morphine 4 MG/ML VIAL IV PRN ×6 (02:30→22:42)
[2016-09-10] MEDS: LEVOTHYROXINE 50 MCG TAB PO SCH (06:10)
[2016-09-10] MEDS: PANTOPRAZOLE (EC) 40 MG TAB PO SCH (06:10)
[2016-09-10] MEDS: ESCITALOPRAM 10 MG TAB PO SCH (08:17)
[2016-09-10] MEDS: VORICONAZOLE 200 MG TAB PO SCH ×2 (08:17→20:16)
[2016-09-10] MEDS: morphine (ER) 30 MG TAB PO SCH ×2 (08:17→20:16)
[2016-09-10] MEDS: DOCUSATE SODIUM 100 MG CAP PO SCH ×3 (08:17→20:15)
[2016-09-10] MEDS ORDERED: SOD CHLORIDE 0.9% 250 ML IV* ONE (12:19)
--- NOTE | 2016-09-10 12:21 | PN ---
Date/Time of Note Date/Time of Note DATE: 09/10/16 TIME: 12:20 Assessment/Plan VTE Prophylaxis VTE Prophylaxis Intervention: other Lines/Catheters IV Catheter Type (from Nrsg): PICC Line Central line still needed: Yes Assessment/Plan Chief Complaint/Hosp Course - Severe sepsis due to pneumonia/bronchitis - per ID- Dr Tesfaye - Advanced non-small cell lung CA, s/p chemo - per dr Slaughter in oncology - Pancytopenia due to chemotherapy - advanced non-small cell lung CA, on biweekly chemotherapy infusion x2 years - h/o fungal pneumonia, on maintenance voriconazole - h/o post-obstructive pneumonia - h/o HTN, CAD, hyperlipidemia - h/o paroxysmal A fib - h/o DVT in LUE - h/o hypothyroidism - Hypomagnesium- resolved Problems: Subjective 24 Hr Interval Summary Free Text/Dictation Patient is breathing better, still on antibiotics Exam/Review of Systems Vital Signs Vitals Vital Signs Date Time Temp Pulse Resp B/P Pulse Ox O2 Delivery O2 Flow Rate FiO2 09/10/16 12:17 98 09/10/16 11:30 98.2 20 120/64 96 09/10/16 07:18 Nasal Cannula 09/10/16 04:00 1.0 Intake and Output 09/09/16 09/09/16 09/10/16 15:00 23:00 07:00 Intake Total 200 ml 1400 ml 120 ml Output Total 900 ml Balance 200 ml 500 ml 120 ml Exam Constitutional: well developed Head: atraumatic, normocephalic Neck: supple Respiratory: diminished breath sounds Cardiovascular: regular rate and rhythm Gastrointestinal: non-tender, soft Extremities: normal pulses Results Result Diagram: 09/09/16 0532 09/09/16 0532 Medications Medications Current Medications IV Flush (NS 10 ml) 10 ml PRN PRN IV IV PROTOCOL; Start 08/31/16 at 18:30 Metoprolol Tartrate (Lopressor) 5 mg Q4H PRN IV ELEVATED HEART RATE Last administered on 09/02/16 17:09; Admin Dose 5 MG; Start 09/02/16 at 17:30 Morphine Sulfate (morphine) 4 mg Q3 PRN IV PAIN Last administered on 09/10/16 10:19; Admin Dose 4 MG; Start 09/05/16 at 17:00 Morphine Sulfate (Ms Contin (Er)) 30 mg BID PO Last administered on 09/10/16 08:17; Admin Dose 30 MG; Start 09/05/16 at 21:00 Docusate Sodium (Colace) 100 mg TID PO Last administered on 09/10/16 08:17; Admin Dose 100 MG; Start 09/06/16 at 21:00 Bisacodyl (Dulcolax) 5 mg DAILY PRN PO CONSTIPATION Last administered on 16:28; Admin Dose 5 MG; Start 09/06/16 at 16:00 Pantoprazole (Protonix Tab) 40 mg DAILY@06 PO Last administered on 09/10/16 06 :10; Admin Dose 40 MG; Start 09/07/16 at 06:00 Atorvastatin Calcium (Lipitor) 20 mg QHS PO Last administered on 09/09/16 20: 02; Admin Dose 20 MG; Start 09/08/16 at 21:00 Docusate Sodium (Colace) 100 mg BID PRN PO CONSTIPATION; Start 09/08/16 at 13: 00 Escitalopram Oxalate (Lexapro) 10 mg DAILY PO Last administered on 09/10/16 08 :17; Admin Dose 10 MG; Start 09/09/16 at 09:00 Senna (Senokot) 1 tab Q12H PRN PO CONSTIPATION; Start 09/08/16 at 13:00 Trazodone HCl (Desyrel) 50 mg QHS PO Last administered on 09/09/16 20:02; Admin Dose 50 MG; Start 09/08/16 at 21:00 Voriconazole (Vfend) 200 mg BID PO Last administered on 09/10/16 08:17; Admin Dose 200 MG; Start 09/10/16 at 09:00 SAQIB DAVIS Sep 10, 2016 12:21
--- NOTE | 2016-09-10 13:13 | CONS ---
Date/Time of Note Date/Time of Note DATE: 09/10/16 TIME: 13:12 Assessment/Plan Assessment/Plan Additional Assessment/Plan Abnormal electrocardiogram. Hypertension, labile. Dyslipidemia. Pneumonia. Lung cancer. Hypothyroidism. Anemia. Thrombocytopenia BP controlled Metoprolol PRN Continue Meropenem Continue Voriconazole Continue Levothyroxine Continue Lipitor Continue GI and DVT Prophylaxis Consultation Date/Type/Reason Admit Date/Time Sep 01, 2016 at 14:47 Initial Consult Date 09/01/16 Type of Consultation: Infectious Disease Referring Provider: MARYAM FARMER MD Exam/Review of Systems Vital Signs Vitals Vital Signs Date Time Temp Pulse Resp B/P Pulse Ox O2 Delivery O2 Flow Rate FiO2 09/10/16 12:17 98 09/10/16 11:30 98.2 20 120/64 96 09/10/16 07:18 Nasal Cannula 09/10/16 04:00 1.0 Intake and Output 09/09/16 09/09/16 09/10/16 15:00 23:00 07:00 Intake Total 200 ml 1400 ml 120 ml Output Total 900 ml Balance 200 ml 500 ml 120 ml Exam Constitutional: alert Head: atraumatic, normocephalic Neck: non-tender, supple Respiratory: diminished breath sounds Cardiovascular: regular rate and rhythm Gastrointestinal: nl liver, spleen, non-tender, soft Extremities: normal pulses Results Result Diagram: 09/09/16 0532 09/09/16 0532 Medications Medications Current Medications IV Flush (NS 10 ml) 10 ml PRN PRN IV IV PROTOCOL; Start 08/31/16 at 18:30 Metoprolol Tartrate (Lopressor) 5 mg Q4H PRN IV ELEVATED HEART RATE Last administered on 09/02/16 17:09; Admin Dose 5 MG; Start 09/02/16 at 17:30 Morphine Sulfate (morphine) 4 mg Q3 PRN IV PAIN Last administered on 09/10/16 10:19; Admin Dose 4 MG; Start 09/05/16 at 17:00 Morphine Sulfate (Ms Contin (Er)) 30 mg BID PO Last administered on 09/10/16 08:17; Admin Dose 30 MG; Start 09/05/16 at 21:00 Docusate Sodium (Colace) 100 mg TID PO Last administered on 09/10/16 12:57; Admin Dose 100 MG; Start 09/06/16 at 21:00 Bisacodyl (Dulcolax) 5 mg DAILY PRN PO CONSTIPATION Last administered on 16:28; Admin Dose 5 MG; Start 09/06/16 at 16:00 Pantoprazole (Protonix Tab) 40 mg DAILY@06 PO Last administered on 09/10/16 06 :10; Admin Dose 40 MG; Start 09/07/16 at 06:00 Atorvastatin Calcium (Lipitor) 20 mg QHS PO Last administered on 09/09/16 20: 02; Admin Dose 20 MG; Start 09/08/16 at 21:00 Docusate Sodium (Colace) 100 mg BID PRN PO CONSTIPATION; Start 09/08/16 at 13: 00 Escitalopram Oxalate (Lexapro) 10 mg DAILY PO Last administered on 09/10/16 08 :17; Admin Dose 10 MG; Start 09/09/16 at 09:00 Senna (Senokot) 1 tab Q12H PRN PO CONSTIPATION; Start 09/08/16 at 13:00 Trazodone HCl (Desyrel) 50 mg QHS PO Last administered on 09/09/16 20:02; Admin Dose 50 MG; Start 09/08/16 at 21:00 Voriconazole (Vfend) 200 mg BID PO Last administered on 09/10/16 08:17; Admin Dose 200 MG; Start 09/10/16 at 09:00 ANDRÉS CAVAZOS M.D. Sep 10, 2016 13:13
--- NOTE | 2016-09-10 15:10 | CONS ---
Date/Time of Note Date/Time of Note DATE: 09/10/16 TIME: 15:09 Assessment/Plan Assessment/Plan Chief Complaint/Hosp Course metastatic lung CANCER, NSCLC - ON CHEMO PANCYTOPENIA POST CHEMO Hypoxemic respiratory failure, possibly secondary to a reaction to chemotherapy. History of coronary artery disease. History of chronic obstructive pulmonary disease PLAN: Continue broad-spectrum antibiotics, currently on Voriconazole, meropenem and vancomycin.- PER ID - continue meropenem (09/01/16-) to complete 7-8 day course for possible HCAP - continue IV voriconazole 200mg q12 hrs. - f/u respiratory panel by NAAT (negative), mycoplasma by NAAT (pending), 1,3- [id number] (negative), cocci serology (negative), aspergillus antigen and antibody (not detected). - Records from [place] were reviewed (concern for necrotizing aspergillus but unable to do biopsy) - DC droplet precautions Deep venous thrombosis and gastrointestinal prophylaxis. chemo on hold Problems: Consultation Date/Type/Reason Admit Date/Time Sep 01, 2016 at 14:47 Initial Consult Date 09/01/16 [facility] Referring Provider: MARYAM FARMER MD 24 HR Interval Summary Free Text/Dictation FELLING BETTER Exam/Review of Systems Vital Signs Vitals Vital Signs Date Time Temp Pulse Resp B/P Pulse Ox O2 Delivery O2 Flow Rate FiO2 09/10/16 12:17 98 09/10/16 11:30 98.2 20 120/64 96 09/10/16 07:18 Nasal Cannula 09/10/16 04:00 1.0 Intake and Output 09/09/16 09/09/16 09/10/16 15:00 23:00 07:00 Intake Total 200 ml 1400 ml 120 ml Output Total 900 ml Balance 200 ml 500 ml 120 ml Exam Constitutional: alert, oriented, well developed Psych: nl mood/affect, no complaints Head: atraumatic, normocephalic Eyes: EOMI, PERRL, nl conjunctiva, nl lids, nl sclera Neck: non-tender, supple Respiratory: clear to auscultation, normal air movement Cardiovascular: nl pulses, regular rate and rhythm Gastrointestinal: nl liver, spleen, non-tender, soft Results Result Diagram: 09/09/16 0532 09/09/16 0532 Medications Medications Current Medications IV Flush (NS 10 ml) 10 ml PRN PRN IV IV PROTOCOL; Start 08/31/16 at 18:30 Metoprolol Tartrate (Lopressor) 5 mg Q4H PRN IV ELEVATED HEART RATE Last administered on 09/02/16 17:09; Admin Dose 5 MG; Start 09/02/16 at 17:30 Morphine Sulfate (morphine) 4 mg Q3 PRN IV PAIN Last administered on 09/10/16 13:40; Admin Dose 4 MG; Start 09/05/16 at 17:00 Morphine Sulfate (Ms Contin (Er)) 30 mg BID PO Last administered on 09/10/16 08:17; Admin Dose 30 MG; Start 09/05/16 at 21:00 Docusate Sodium (Colace) 100 mg TID PO Last administered on 09/10/16 12:57; Admin Dose 100 MG; Start 09/06/16 at 21:00 Bisacodyl (Dulcolax) 5 mg DAILY PRN PO CONSTIPATION Last administered on 16:28; Admin Dose 5 MG; Start 09/06/16 at 16:00 Pantoprazole (Protonix Tab) 40 mg DAILY@06 PO Last administered on 09/10/16 06 :10; Admin Dose 40 MG; Start 09/07/16 at 06:00 Atorvastatin Calcium (Lipitor) 20 mg QHS PO Last administered on 09/09/16 20: 02; Admin Dose 20 MG; Start 09/08/16 at 21:00 Docusate Sodium (Colace) 100 mg BID PRN PO CONSTIPATION; Start 09/08/16 at 13: 00 Escitalopram Oxalate (Lexapro) 10 mg DAILY PO Last administered on 09/10/16 08 :17; Admin Dose 10 MG; Start 09/09/16 at 09:00 Senna (Senokot) 1 tab Q12H PRN PO CONSTIPATION; Start 09/08/16 at 13:00 Trazodone HCl (Desyrel) 50 mg QHS PO Last administered on 09/09/16 20:02; Admin Dose 50 MG; Start 09/08/16 at 21:00 Voriconazole (Vfend) 200 mg BID PO Last administered on 09/10/16 08:17; Admin Dose 200 MG; Start 4/16/17 at 09:00 DAHIANA BABCOCK MD Sep 10, 2016 15:10
--- NOTE | 2016-09-10 18:35 | RADRPT ---
Vent Rate: 98 bpm RR Interval: 0 msec AL Interval: 182 msec QRS Duration: 78 msec QT Interval: 364 msec QTC Interval: 464 msec P-R-T [place]: 48 - 26 - 49 degrees Sinus rhythm with premature atrial complexes with aberrant conduction Low voltage QRS Borderline ECG Electronically Signed By: Vinnie Lawrence [id number]
[2016-09-10] MEDS: ATORVASTATIN 20 MG TAB PO SCH (20:16)
[2016-09-10] MEDS: traZODone 50 MG TAB PO SCH (20:16)
--- NOTE | 2016-09-10 21:31 | CONS ---
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 His ID specialist recommended that he take this for 6 months since 03/2016. Therefore, I will reduce the dose of voriconazole accordingly. management d/w Pt Problems: Consultation Date/Type/Reason Admit Date/Time Sep 01, 2016 at 14:47 Initial Consult Date 09/01/16 Type of Consultation: ID Referring Provider: MARYAM FARMER MD 24 HR Interval Summary Constitutional: no complaints Detailed Summary Eyes: no complaints ENT: no complaints Respiratory: cough, sputum, wheezing Cardiovascular: no complaints Gastrointestinal: no complaints Genitourinary: no complaints Musculoskeletal: no complaints Skin: no complaints Exam/Review of Systems Vital Signs Vitals Vital Signs Date Time Temp Pulse Resp B/P Pulse Ox O2 Delivery O2 Flow Rate FiO2 09/10/16 20:26 102 09/10/16 20:00 97.9 20 142/91 96 09/10/16 07:18 Nasal Cannula 09/10/16 04:00 1.0 Intake and Output 09/09/16 09/09/16 09/10/16 15:00 23:00 07:00 Intake Total 200 ml 1400 ml 120 ml Output Total 900 ml Balance 200 ml 500 ml 120 ml Exam Constitutional: alert, obese, oriented Head: atraumatic, normocephalic Eyes: nl conjunctiva, nl lids ENMT: nl external ears & nose, nl nasal mucosa & septum Neck: supple Respiratory: congested cough, wheezing Cardiovascular: nl pulses, regular rate and rhythm Gastrointestinal: non-tender, soft Extremities: No edema Neurological: DOUBLER OPERATOR II-XII intact, nl mental status, nl speech Skin: nl turgor Results Result Diagram: 09/09/16 0532 09/09/16 0532 Medications Medications Current Medications IV Flush (NS 10 ml) 10 ml PRN PRN IV IV PROTOCOL; Start 08/31/16 at 18:30 Metoprolol Tartrate (Lopressor) 5 mg Q4H PRN IV ELEVATED HEART RATE Last administered on 09/02/16 17:09; Admin Dose 5 MG; Start 09/02/16 at 17:30 Morphine Sulfate (morphine) 4 mg Q3 PRN IV PAIN Last administered on 09/10/16 18:41; Admin Dose 4 MG; Start 09/05/16 at 17:00 Morphine Sulfate (Ms Contin (Er)) 30 mg BID PO Last administered on 09/10/16 20:16; Admin Dose 30 MG; Start 09/05/16 at 21:00 Docusate Sodium (Colace) 100 mg TID PO Last administered on 09/10/16 20:15; Admin Dose 100 MG; Start 09/06/16 at 21:00 Bisacodyl (Dulcolax) 5 mg DAILY PRN PO CONSTIPATION Last administered on 16:28; Admin Dose 5 MG; Start 09/06/16 at 16:00 Pantoprazole (Protonix Tab) 40 mg DAILY@06 PO Last administered on 09/10/16 06 :10; Admin Dose 40 MG; Start 09/07/16 at 06:00 Atorvastatin Calcium (Lipitor) 20 mg QHS PO Last administered on 09/10/16 20: 16; Admin Dose 20 MG; Start 09/08/16 at 21:00 Docusate Sodium (Colace) 100 mg BID PRN PO CONSTIPATION; Start 09/08/16 at 13: 00 Escitalopram Oxalate (Lexapro) 10 mg DAILY PO Last administered on 09/10/16 08 :17; Admin Dose 10 MG; Start 09/09/16 at 09:00 Senna (Senokot) 1 tab Q12H PRN PO CONSTIPATION; Start 09/08/16 at 13:00 Trazodone HCl (Desyrel) 50 mg QHS PO Last administered on 09/10/16 20:16; Admin Dose 50 MG; Start 09/08/16 at 21:00 Voriconazole (Vfend) 200 mg BID PO Last administered on 09/10/16 20:16; Admin Dose 200 MG; Start 09/10/16 at 09:00 LUKE CAAL M.D. Sep 10, 2016 21:31
[2016-09-11] VITALS (13 sets, daily range): BP systolic 102–147; BP diastolic 62–80; PULSE 90–111; RESP 16–21
[2016-09-11] MEDS: morphine 4 MG/ML VIAL IV PRN ×5 (04:18→20:52)
[2016-09-11] MEDS: LEVOTHYROXINE 50 MCG TAB PO SCH (05:45)
[2016-09-11] MEDS: PANTOPRAZOLE (EC) 40 MG TAB PO SCH (05:45)
[2016-09-11] MEDS: ESCITALOPRAM 10 MG TAB PO SCH (08:42)
[2016-09-11] MEDS: VORICONAZOLE 200 MG TAB PO SCH ×2 (08:43→20:51)
[2016-09-11] MEDS: morphine (ER) 30 MG TAB PO SCH ×2 (08:43→20:51)
[2016-09-11] MEDS: DOCUSATE SODIUM 100 MG CAP PO SCH ×3 (08:43→20:51)
--- NOTE | 2016-09-11 10:26 | CONS ---
Date/Time of Note Date/Time of Note DATE: 09/11/16 TIME: 10:24 Assessment/Plan Assessment/Plan Chief Complaint/Hosp Course metastatic lung CANCER, NSCLC - ON CHEMO PANCYTOPENIA POST CHEMO Hypoxemic respiratory failure, possibly secondary to a reaction to chemotherapy. History of coronary artery disease. chronic obstructive pulmonary disease- EXACERBATION CHECK CXR CHECK BNP PULM F-UP PLAN: Continue broad-spectrum antibiotics, currently on Voriconazole, meropenem and vancomycin.- PER ID - continue meropenem (09/01/16-) to complete 7-8 day course for possible HCAP - continue IV voriconazole 200mg q12 hrs. - f/u respiratory panel by NAAT (negative), mycoplasma by NAAT (pending), 1,3- [id number] (negative), cocci serology (negative), aspergillus antigen and antibody (not detected). - Records from [place] were reviewed (concern for necrotizing aspergillus but unable to do biopsy) - DC droplet precautions Deep venous thrombosis and gastrointestinal prophylaxis. chemo on hold Problems: Consultation Date/Type/Reason Admit Date/Time Sep 01, 2016 at 14:47 Initial Consult Date 09/01/16 Type of Consultation: [facility] Referring Provider: MARYAM FARMER MD 24 HR Interval Summary Free Text/Dictation ALL NOTED MORE SOB Exam/Review of Systems Vital Signs Vitals Vital Signs Date Time Temp Pulse Resp B/P Pulse Ox O2 Delivery O2 Flow Rate FiO2 09/11/16 08:23 93 09/11/16 07:30 Nasal Cannula 1.0 09/11/16 07:08 98.3 20 123/70 94 Intake and Output 09/10/16 09/10/16 09/11/16 15:00 23:00 07:00 Intake Total 1770 ml 220 ml Output Total 1400 ml 500 ml Balance 370 ml -280 ml Exam Constitutional: alert, oriented, well developed, + SOB Psych: nl mood/affect, no complaints Head: atraumatic, normocephalic Eyes: EOMI, PERRL, nl conjunctiva, nl lids, nl sclera Neck: non-tender, supple Respiratory: MORE RHONCHI, Cardiovascular: nl pulses, regular rate and rhythm Gastrointestinal: nl liver, spleen, non-tender, soft Results Result Diagram: 09/09/16 0532 09/09/16 0532 Results 24 hrs Laboratory Tests Test 4/17/17 10:18 Lab Scanned Report REFERENCE LAB Medications Medications Current Medications IV Flush (NS 10 ml) 10 ml PRN PRN IV IV PROTOCOL; Start 08/31/16 at 18:30 Metoprolol Tartrate (Lopressor) 5 mg Q4H PRN IV ELEVATED HEART RATE Last administered on 09/02/16 17:09; Admin Dose 5 MG; Start 09/02/16 at 17:30 Morphine Sulfate (morphine) 4 mg Q3 PRN IV PAIN Last administered on 09/11/16 04:18; Admin Dose 4 MG; Start 09/05/16 at 17:00 Morphine Sulfate (Ms Contin (Er)) 30 mg BID PO Last administered on 09/11/16 08:43; Admin Dose 30 MG; Start 09/05/16 at 21:00 Docusate Sodium (Colace) 100 mg TID PO Last administered on 09/11/16 08:43; Admin Dose 100 MG; Start 09/06/16 at 21:00 Bisacodyl (Dulcolax) 5 mg DAILY PRN PO CONSTIPATION Last administered on 16:28; Admin Dose 5 MG; Start 09/06/16 at 16:00 Pantoprazole (Protonix Tab) 40 mg DAILY@06 PO Last administered on 09/11/16 05 :45; Admin Dose 40 MG; Start 09/07/16 at 06:00 Atorvastatin Calcium (Lipitor) 20 mg QHS PO Last administered on 09/10/16 20: 16; Admin Dose 20 MG; Start 09/08/16 at 21:00 Docusate Sodium (Colace) 100 mg BID PRN PO CONSTIPATION; Start 09/08/16 at 13: 00 Escitalopram Oxalate (Lexapro) 10 mg DAILY PO Last administered on 09/11/16 08 :42; Admin Dose 10 MG; Start 09/09/16 at 09:00 Senna (Senokot) 1 tab Q12H PRN PO CONSTIPATION; Start 09/08/16 at 13:00 Trazodone HCl (Desyrel) 50 mg QHS PO Last administered on 09/10/16 20:16; Admin Dose 50 MG; Start 09/08/16 at 21:00 Voriconazole (Vfend) 100 mg BID PO Last administered on 09/11/16 08:43; Admin Dose 100 MG; Start 09/11/16 at 09:00 DAHIANA BABCOCK MD Sep 11, 2016 10:26
--- NOTE | 2016-09-11 14:19 | CONS ---
Date/Time of Note Date/Time of Note DATE: 09/11/16 TIME: 14:14 Assessment/Plan Assessment/Plan Chief Complaint/Hosp Course IMPRESSION: 1. Cardiac arrhythmia, with currently rhythm most consistent with sinus tachycardia, but also having pauses. Negative troponin x 3/TSH elevated 2. Abnormal electrocardiogram. trop negative x3/NL EF by echo this admit 3. Hypertension, labile. 4. Dyslipidemia. 5. Pneumonia and bronchitis. 6. Lung cancer. 7. Hypothyroidism. 8. Anemia. 9. Thrombocytopenia, severe. 10. Prior hemoptysis. Recc: -Tele monitoring -Contineu statin -PRN IVP BB as necessary -Check free t4 to further assess current thyroid state -Contine voriconazole -repeat cxr/check BNP Problems: Consultation Date/Type/Reason Admit Date/Time Sep 01, 2016 at 14:47 Initial Consult Date 09/01/16 Type of Consultation: Cardiology Reason for Consultation cardiac arrythmia Referring Provider: MARYAM FARMER MD Exam/Review of Systems Vital Signs Vitals Vital Signs Date Time Temp Pulse Resp B/P Pulse Ox O2 Delivery O2 Flow Rate FiO2 09/11/16 12:12 95 09/11/16 11:41 98.3 20 102/68 96 09/11/16 07:30 Nasal Cannula 1.0 Intake and Output 09/10/16 09/10/16 09/11/16 15:00 23:00 07:00 Intake Total 1770 ml 220 ml Output Total 1400 ml 500 ml Balance 370 ml -280 ml Exam Review of Systems: CONSTITUTIONAL: No fevers, chills. PULMONARY: moderate sob CARDIOVASCULAR: No chest pain/palpitations GASTROINTESTINAL: No nausea/vomiting. GENITOURINARY: No hematuria/dysuria. MUSCULOSKELETAL: No myagias/arthalgias. PSYCHIATRIC: The patient denies depression. NEUROLOGIC: No weakness Constitutional: alert Psych: no complaints Head: normocephalic ENMT: mucosa pink and moist Neck: jvd (9 cm water), supple Respiratory: diminished breath sounds (throughout bilateral) Cardiovascular: regular rate and rhythm Gastrointestinal: non-tender, soft Musculoskeletal: muscle tone (normal) Extremities: edema (trace/B) Results Result Diagram: 09/09/16 0532 09/09/16 0532 Results 24 hrs Laboratory Tests Test 09/11/16 10:18 09/11/16 11:30 Lab Scanned Report REFERENCE LAB B-Type Natriuretic Peptide 774 H Medications Medications Current Medications IV Flush (NS 10 ml) 10 ml PRN PRN IV IV PROTOCOL; Start 08/31/16 at 18:30 Metoprolol Tartrate (Lopressor) 5 mg Q4H PRN IV ELEVATED HEART RATE Last administered on 09/02/16 17:09; Admin Dose 5 MG; Start 09/02/16 at 17:30 Morphine Sulfate (morphine) 4 mg Q3 PRN IV PAIN Last administered on 09/11/16 11:35; Admin Dose 4 MG; Start 09/05/16 at 17:00 Morphine Sulfate (Ms Contin (Er)) 30 mg BID PO Last administered on 09/11/16 08:43; Admin Dose 30 MG; Start 09/05/16 at 21:00 Docusate Sodium (Colace) 100 mg TID PO Last administered on 09/11/16 13:12; Admin Dose 100 MG; Start 09/06/16 at 21:00 Bisacodyl (Dulcolax) 5 mg DAILY PRN PO CONSTIPATION Last administered on 16:28; Admin Dose 5 MG; Start 09/06/16 at 16:00 Pantoprazole (Protonix Tab) 40 mg DAILY@06 PO Last administered on 09/11/16 05 :45; Admin Dose 40 MG; Start 09/07/16 at 06:00 Atorvastatin Calcium (Lipitor) 20 mg QHS PO Last administered on 09/10/16 20: 16; Admin Dose 20 MG; Start 09/08/16 at 21:00 Docusate Sodium (Colace) 100 mg BID PRN PO CONSTIPATION; Start 09/08/16 at 13: 00 Escitalopram Oxalate (Lexapro) 10 mg DAILY PO Last administered on 09/11/16 08 :42; Admin Dose 10 MG; Start 09/09/16 at 09:00 Senna (Senokot) 1 tab Q12H PRN PO CONSTIPATION; Start 09/08/16 at 13:00 Trazodone HCl (Desyrel) 50 mg QHS PO Last administered on 09/10/16 20:16; Admin Dose 50 MG; Start 09/08/16 at 21:00 Voriconazole (Vfend) 100 mg BID PO Last administered on 09/11/16 08:43; Admin Dose 100 MG; Start 09/11/16 at 09:00 MARIAA ÁLVAREZ Sep 11, 2016 14:19
[2016-09-11] MEDS ORDERED: FUROSEMIDE 20 MG INJ IV ONE (14:30)
--- NOTE | 2016-09-11 14:57 | PN ---
Date/Time of Note Date/Time of Note DATE: 09/11/16 TIME: 14:49 Assessment/Plan VTE Prophylaxis VTE Prophylaxis Intervention: SCD's Lines/Catheters IV Catheter Type (from Nrs): PICC Line Central line still needed: Yes Assessment/Plan Chief Complaint/Hosp Course Assessment/Plan - S/p severe sepsis due to pneumonia/bronchitis, Dr. Fraga group is following infection disease consultation. - Advanced non-small cell lung CA, on biweekly chemotherapy infusion x2 years, Dr. Scanlon is following in oncology consultation. - Acute respiratory failure, resolving. Dr. Castanon is following in pulmonology consultation. - Pancytopenia due to chemotherapy -Diastolic congestive heart failure, status post Lasix, continue to monitor electrolytes. -Cardiac arrhythmia, Dr. Gaytan is following in cardiology consultation. - h/o fungal pneumonia, on maintenance voriconazole - h/o post-obstructive pneumonia - h/o HTN, CAD, hyperlipidemia - h/o paroxysmal A fib - h/o DVT in LUE - h/o hypothyroidism Further recommendations based on clinical course. Plan of care discussed with Dr. Lincoln. Problems: Subjective 24 Hr Interval Summary Free Text/Dictation Patient's complains of shortness of breath on exertion, complains of productive cough, currently on supplemental oxygen via nasal cannula, denies nausea vomiting. Exam/Review of Systems Vital Signs Vitals Vital Signs Date Time Temp Pulse Resp B/P Pulse Ox O2 Delivery O2 Flow Rate FiO2 09/11/16 12:12 95 09/11/16 11:41 98.3 20 102/68 96 09/11/16 07:30 Nasal Cannula 1.0 Intake and Output 09/10/16 09/10/16 09/11/16 15:00 23:00 07:00 Intake Total 1770 ml 220 ml Output Total 1400 ml 500 ml Balance 370 ml -280 ml Exam Constitutional: alert, oriented Psych: nl mood/affect, no complaints Head: atraumatic, normocephalic Eyes: nl conjunctiva ENMT: nl external ears & nose Neck: non-tender, supple Respiratory: diminished breath sounds, wheezing Cardiovascular: nl pulses, regular rate and rhythm Gastrointestinal: non-tender, soft Musculoskeletal: nl extremities to inspection Extremities: normal pulses Neurological: FIBROUS PLASTERER II-XII intact Results Result Diagram: 09/09/16 0532 09/09/16 0532 Results 24 hrs Laboratory Tests Test 09/11/16 10:18 09/11/16 11:30 Lab Scanned Report REFERENCE LAB B-Type Natriuretic Peptide 774 H Medications Medications Current Medications IV Flush (NS 10 ml) 10 ml PRN PRN IV IV PROTOCOL; Start 08/31/16 at 18:30 Metoprolol Tartrate (Lopressor) 5 mg Q4H PRN IV ELEVATED HEART RATE Last administered on 09/02/16 17:09; Admin Dose 5 MG; Start 09/02/16 at 17:30 Morphine Sulfate (morphine) 4 mg Q3 PRN IV PAIN Last administered on 09/11/16 14:30; Admin Dose 4 MG; Start 09/05/16 at 17:00 Morphine Sulfate (Ms Contin (Er)) 30 mg BID PO Last administered on 09/11/16 08:43; Admin Dose 30 MG; Start 09/05/16 at 21:00 Docusate Sodium (Colace) 100 mg TID PO Last administered on 09/11/16 13:12; Admin Dose 100 MG; Start 09/06/16 at 21:00 Bisacodyl (Dulcolax) 5 mg DAILY PRN PO CONSTIPATION Last administered on 16:28; Admin Dose 5 MG; Start 09/06/16 at 16:00 Pantoprazole (Protonix Tab) 40 mg DAILY@06 PO Last administered on 09/11/16 05 :45; Admin Dose 40 MG; Start 09/07/16 at 06:00 Atorvastatin Calcium (Lipitor) 20 mg QHS PO Last administered on 09/10/16 20: 16; Admin Dose 20 MG; Start 09/08/16 at 21:00 Docusate Sodium (Colace) 100 mg BID PRN PO CONSTIPATION; Start 09/08/16 at 13: 00 Escitalopram Oxalate (Lexapro) 10 mg DAILY PO Last administered on 09/11/16 08 :42; Admin Dose 10 MG; Start 09/09/16 at 09:00 Senna (Senokot) 1 tab Q12H PRN PO CONSTIPATION; Start 09/08/16 at 13:00 Trazodone HCl (Desyrel) 50 mg QHS PO Last administered on 09/10/16 20:16; Admin Dose 50 MG; Start 09/08/16 at 21:00 Voriconazole (Vfend) 100 mg BID PO Last administered on 09/11/16t 08:43; Admin Dose 100 MG; Start 09/11/16 at 09:00 LUBA EARLY Sep 11, 2016 14:57
--- NOTE | 2016-09-11 15:06 | RADRPT ---
PROCEDURE: XR Chest. CLINICAL INDICATION: Shortness of breath. TECHNIQUE: Single frontal view. COMPARISON: 09/02/2016. FINDINGS: The endotracheal tube has been removed. There is persistent consolidation throughout the right uppe r lobe with volume loss and shift of mediastinum to the right. The left lung remains clear. The heart size is normal. There is no pleural effusion. There is no pneumothorax. IMPRESSION: 1. Endotracheal tube removed. 2. Unchanged consolidation throughout the right upper lobe. 3. Otherwise unchanged chest radiograph. RPTAT: QQ .Los Stringer MD, MD Date Time Electronically viewed and signed by .Los Stringer MD, MD on 09/11/2016 15:06 .R/
[2016-09-11] MEDS: traZODone 50 MG TAB PO SCH (20:51)
[2016-09-11] MEDS: ATORVASTATIN 20 MG TAB PO SCH (20:51)
--- NOTE | 2016-09-11 21:08 | CONS ---
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 Management d/w pt Above d/w Dr. Tesfaye Problems: Consultation Date/Type/Reason Admit Date/Time Sep 01, 2016 at 14:47 Initial Consult Date 09/01/16 Type of Consultation: Infectious Disease Referring Provider: MARYAM FARMER MD 24 HR Interval Summary Free Text/Dictation Still has DYKES, intermittent congested cough and generalized body aches. No abd pain, n/v/d, dysuria. Exam/Review of Systems Vital Signs Vitals Vital Signs Date Time Temp Pulse Resp B/P Pulse Ox O2 Delivery O2 Flow Rate FiO2 09/11/16 20:11 97.0 98 17 118/77 96 09/11/16 17:42 1.0 09/11/16 07:30 Nasal Cannula Intake and Output 09/10/16 09/10/16 09/11/16 15:00 23:00 07:00 Intake Total 1770 ml 220 ml Output Total 1400 ml 500 ml Balance 370 ml -280 ml Exam Constitutional: alert, obese, oriented, well developed Head: atraumatic, normocephalic Neck: supple, non-tender Respiratory: congested cough, diminished breath sounds (RUL), normal air movement, On O2 @ 2L Cardiovascular: nl pulses, regular rate and rhythm Gastrointestinal: non-tender, soft Musculoskeletal: nl extremities to inspection Extremities: No clubbing, No cyanosis, No edema Neurological: nl mental status Skin: nl turgor, other (ecchymosis noted to BUE) No rash or lesions Results Result Diagram: 09/09/16 0532 09/09/16 0532 Results 24 hrs Laboratory Tests Test 09/11/16 10:18 09/11/16 11:30 09/11/16 16:48 Lab Scanned Report REFERENCE LAB B-Type Natriuretic Peptide 774 H Free Thyroxine 0.78 Medications Medications Current Medications IV Flush (NS 10 ml) 10 ml PRN PRN IV IV PROTOCOL; Start 08/31/16 at 18:30 Metoprolol Tartrate (Lopressor) 5 mg Q4H PRN IV ELEVATED HEART RATE Last administered on 09/02/16 17:09; Admin Dose 5 MG; Start 09/02/16 at 17:30 Morphine Sulfate (morphine) 4 mg Q3 PRN IV PAIN Last administered on 09/11/16 20:52; Admin Dose 4 MG; Start 09/05/16 at 17:00 Morphine Sulfate (Ms Contin (Er)) 30 mg BID PO Last administered on 09/11/16 20:51; Admin Dose 30 MG; Start 09/05/16 at 21:00 Docusate Sodium (Colace) 100 mg TID PO Last administered on 09/11/16 20:51; Admin Dose 100 MG; Start 09/06/16 at 21:00 Bisacodyl (Dulcolax) 5 mg DAILY PRN PO CONSTIPATION Last administered on 16:28; Admin Dose 5 MG; Start 09/06/16 at 16:00 Pantoprazole (Protonix Tab) 40 mg DAILY@06 PO Last administered on 09/11/16 05 :45; Admin Dose 40 MG; Start 09/07/16 at 06:00 Atorvastatin Calcium (Lipitor) 20 mg QHS PO Last administered on 09/11/16 20: 51; Admin Dose 20 MG; Start 09/08/16 at 21:00 Docusate Sodium (Colace) 100 mg BID PRN PO CONSTIPATION; Start 09/08/16 at 13: 00 Escitalopram Oxalate (Lexapro) 10 mg DAILY PO Last administered on 09/11/16 08 :42; Admin Dose 10 MG; Start 09/09/16 at 09:00 Senna (Senokot) 1 tab Q12H PRN PO CONSTIPATION; Start 09/08/16 at 13:00 Trazodone HCl (Desyrel) 50 mg QHS PO Last administered on 09/11/16 20:51; Admin Dose 50 MG; Start 09/08/16 at 21:00 Voriconazole (Vfend) 100 mg BID PO Last administered on 09/11/16 20:51; Admin Dose 100 MG; Start 09/11/16 at 09:00 STEPHEN LOVE NP Sep 11, 2016 21:08
[2016-09-12] VITALS (11 sets, daily range): BP systolic 102–126; BP diastolic 65–76; PULSE 87–110; RESP 16–18
[2016-09-12] MEDS: morphine 4 MG/ML VIAL IV PRN ×5 (04:02→20:10)
[2016-09-12] MEDS: PANTOPRAZOLE (EC) 40 MG TAB PO SCH (06:17)
[2016-09-12] MEDS: LEVOTHYROXINE 50 MCG TAB PO SCH (06:17)
[2016-09-12 07:52] LABS: ADD SCAN DIFF NO
[2016-09-12 07:57] LABS: ABNORMAL IP MESSAGE 1; HEMATOCRIT 27.6 % (42.0-52.0); HEMOGLOBIN 8.7 g/dl (14.0-18.0); MEAN CORPUSCULAR HEMOGLOBIN 31.5 pg (29.0-33.0); MEAN CORPUSCULAR HGB CONC 31.5 g/dl (32.0-37.0); MEAN PLATELET VOLUME 10.7 fl (7.4-10.4); PLATELET COUNT 79 10^3/UL (140-415); RED BLOOD COUNT 2.76 10^6/ul (4.70-6.10); RED CELL DISTRIBUTION WIDTH 15.9 % (11.5-14.5); WHITE BLOOD COUNT 2.2 10^3/ul (4.8-10.8)
[2016-09-12 08:19] LABS: CREATININE 0.84 mg/dl (0.61-1.24)
[2016-09-12 08:20] LABS: CALCIUM 8.5 mg/dl (8.4-10.2)
[2016-09-12] MEDS: VORICONAZOLE 200 MG TAB PO SCH ×2 (08:24→20:10)
[2016-09-12] MEDS: ESCITALOPRAM 10 MG TAB PO SCH (08:24)
[2016-09-12] MEDS: morphine (ER) 30 MG TAB PO SCH ×2 (08:24→20:10)
[2016-09-12] MEDS: DOCUSATE SODIUM 100 MG CAP PO SCH ×3 (08:24→20:10)
[2016-09-12 09:08] LABS: EOSINOPHILS # 0.1 10^3/ul (0.0-0.5); LYMPHOCYTES # 0.9 10^3/ul (0.8-2.9); MONOCYTE # 0.2 10^3/ul (0.3-0.9); NEUTROPHIL # 1.1 10^3/ul (1.6-7.5); PLATELET ESTIMATE PLT APPEAR DECREASED
--- NOTE | 2016-09-12 09:59 | CONS ---
Date/Time of Note Date/Time of Note DATE: 09/12/16 TIME: 09:57 Assessment/Plan Assessment/Plan Additional Assessment/Plan 1. Cardiac arrhythmia, with currently rhythm most consistent with sinus tachycardia, but also having pauses. Negative troponin x 3/TSH elevated - HR better now. - 2. Abnormal electrocardiogram. trop negative x3/NL EF by echo this admit 3. Hypertension, labile- better now, con't to follow 4. Dyslipidemia. 5. Pneumonia and bronchitis- on anti-bx now 6. Lung cancer. 7. Hypothyroidism. 8. Anemia. 9. Thrombocytopenia, severe. 10. Prior hemoptysis. 11. CHF - acute on chorionic, con't gentle diureses as tolerated Consultation Date/Type/Reason Admit Date/Time Sep 01, 2016 at 14:47 Initial Consult Date 09/01/16 Type of Consultation: Infectious Disease Referring Provider: MARYAM FARMER MD 24 HR Interval Summary Free Text/Dictation NO acute events - BP stable - still very SOB with minimal activity - con't CHF and PNA rx . ROS: No fever, no chills, no nausea, no vomiting, no diarrhea/constipation No recent weight changes No chest pain, no PND, no orthopnea No dizziness, blurred vision No thirst, no heat or cold intolerance + DYKES/SOB Exam/Review of Systems Vital Signs Vitals Vital Signs Date Time Temp Pulse Resp B/P Pulse Ox O2 Delivery O2 Flow Rate FiO2 09/12/16 08:10 87 09/12/16 07:22 Nasal Cannula 2.0 09/12/16 07:14 98.0 18 110/70 97 Intake and Output 09/11/16 09/11/16 09/12/16 15:00 23:00 07:00 Intake Total 1500 ml Output Total 1000 ml Balance 500 ml Exam General: WN/WD/NAD, AOx 3 HEENT: Unicetric/atraumatic/EOMI (follow commands) NECK: JVD elevated, no thyromegaly Lymph: no lymphadenopathy HEART: regular with no S3, II/ systolic murmur at apex, PMI L LUNGS: Coarse sounds ABD: soft, NT, ND, +BS : Intact Neuro: non focal SKIN: chronic changes EXT: trace edema Results Result Diagram: 09/12/1662109/12/16621 Results 24 hrs Laboratory Tests Test 09/11/16 10:18 09/11/16 11:30 09/11/16 16:48 09/12/16 06:22 Lab Scanned Report REFERENCE LAB B-Type Natriuretic Peptide 774 H Free Thyroxine 0.78 White Blood Count 2.2 L Red Blood Count 2.76 L Hemoglobin 8.7 L Hematocrit 27.6 L Mean Corpuscular Volume 100.0 Mean Corpuscular Hemoglobin 31.5 Mean Corpuscular Hemoglobin Concent 31.5 L Red Cell Distribution Width 15.9 H Platelet Count 79 #L Mean Platelet Volume 10.7 H Neutrophils % 50.0 Lymphocytes % 39.0 Monocytes % 7.0 Eosinophils % 4.0 Neutrophils # 1.1 L Lymphocytes # 0.9 Monocytes # 0.2 L Eosinophils # 0.1 Platelet Estimate PLT APPEAR DECREASED Sodium Level 139 Potassium Level 4.0 Chloride Level 96 L Carbon Dioxide Level 34 H Anion Gap 13 Blood Urea Nitrogen 18 Creatinine 0.84 Glucose Level 86 Calcium Level 8.5 Medications Medications Current Medications IV Flush (NS 10 ml) 10 ml PRN PRN IV IV PROTOCOL; Start 08/31/16 at 18:30 Metoprolol Tartrate (Lopressor) 5 mg Q4H PRN IV ELEVATED HEART RATE Last administered on 09/02/16 17:09; Admin Dose 5 MG; Start 09/02/16 at 17:30 Morphine Sulfate (morphine) 4 mg Q3 PRN IV PAIN Last administered on 09/12/16 08:25; Admin Dose 4 MG; Start 09/05/16 at 17:00 Morphine Sulfate (Ms Contin (Er)) 30 mg BID PO Last administered on 09/12/16 08:24; Admin Dose 30 MG; Start 09/05/16 at 21:00 Docusate Sodium (Colace) 100 mg TID PO Last administered on 09/12/16 08:24; Admin Dose 100 MG; Start 09/06/16 at 21:00 Bisacodyl (Dulcolax) 5 mg DAILY PRN PO CONSTIPATION Last administered on 16:28; Admin Dose 5 MG; Start 09/06/16 at 16:00 Pantoprazole (Protonix Tab) 40 mg DAILY@06 PO Last administered on 09/12/16 06 :17; Admin Dose 40 MG; Start 09/07/16 at 06:00 Atorvastatin Calcium (Lipitor) 20 mg QHS PO Last administered on 09/11/16 20: 51; Admin Dose 20 MG; Start 09/08/16 at 21:00 Docusate Sodium (Colace) 100 mg BID PRN PO CONSTIPATION; Start 09/08/16 at 13: 00 Escitalopram Oxalate (Lexapro) 10 mg DAILY PO Last administered on 09/12/16 08 :24; Admin Dose 10 MG; Start 09/09/16 at 09:00 Senna (Senokot) 1 tab Q12H PRN PO CONSTIPATION; Start 09/08/16 at 13:00 Trazodone HCl (Desyrel) 50 mg QHS PO Last administered on 09/11/16 20:51; Admin Dose 50 MG; Start 09/08/16 at 21:00 Voriconazole (Vfend) 100 mg BID PO Last administered on 09/12/16 08:24; Admin Dose 100 MG; Start 09/11/16 at 09:00 FRANCIS ESPINAL MD Sep 12, 2016 09:59
[2016-09-12] MEDS ORDERED: FUROSEMIDE 20 MG INJ IV ONE (10:00)
--- NOTE | 2016-09-12 13:50 | PN ---
Date/Time of Note Date/Time of Note DATE: 09/12/16 TIME: 13:48 Assessment/Plan VTE Prophylaxis VTE Prophylaxis Intervention: SCD's Lines/Catheters [facility] P[facility] Line Central line still needed: Yes Assessment/Plan Chief Complaint/Hosp Course Assessment/Plan - S/p severe sepsis due to pneumonia/bronchitis, Dr. Fraga group is following infection disease consultation. - Advanced non-small cell lung CA, on biweekly chemotherapy infusion x2 years, Dr. Scanlon is following in oncology consultation. - Acute respiratory failure, resolving. Dr. Castanon is following in pulmonology consultation. - Pancytopenia due to chemotherapy -Acute on chronic diastolic congestive heart failure, continue gentle diuresis, continue to monitor electrolytes. -Cardiac arrhythmia, Dr. Gaytan is following in cardiology consultation. - h/o fungal pneumonia, on maintenance voriconazole - h/o post-obstructive pneumonia - h/o HTN, CAD, hyperlipidemia - h/o paroxysmal A fib - h/o DVT in LUE - h/o hypothyroidism Further recommendations based on clinical course. Plan of care discussed with Dr. Lincoln. Problems: Subjective 24 Hr Interval Summary Free Text/Dictation Patient's continues to have shortness of breath on exertion, continues to have productive cough. Exam/Review of Systems Vital Signs Vitals Vital Signs Date Time Temp Pulse Resp B/P Pulse Ox O2 Delivery O2 Flow Rate FiO2 09/12/16 12:08 101 09/12/16 11:47 98.6 18 102/75 91 09/12/16 07:22 Nasal Cannula 2.0 Intake and Output 09/11/16 09/11/16 09/12/16 15:00 23:00 07:00 Intake Total 1500 ml Output Total 1000 ml Balance 500 ml Exam Constitutional: alert, oriented Psych: nl mood/affect, no complaints Head: atraumatic, normocephalic Eyes: nl conjunctiva ENMT: nl external ears & nose Neck: non-tender, supple Respiratory: diminished breath sounds, wheezing Cardiovascular: nl pulses, regular rate and rhythm Gastrointestinal: non-tender, soft Musculoskeletal: nl extremities to inspection Extremities: normal pulses Neurological: NUTRITION COORDINATOR II-XII intact Results Result Diagram: 09/12/16 0622 09/12/16 0622 Results 24 hrs Laboratory Tests Test 09/11/16 16:48 09/12/16 06:22 Free Thyroxine 0.78 White Blood Count 2.2 L Red Blood Count 2.76 L Hemoglobin 8.7 L Hematocrit 27.6 L Mean Corpuscular Volume 100.0 Mean Corpuscular Hemoglobin 31.5 Mean Corpuscular Hemoglobin Concent 31.5 L Red Cell Distribution Width 15.9 H Platelet Count 79 #L Mean Platelet Volume 10.7 H Neutrophils % 50.0 Lymphocytes % 39.0 Monocytes % 7.0 Eosinophils % 4.0 Neutrophils # 1.1 L Lymphocytes # 0.9 Monocytes # 0.2 L Eosinophils # 0.1 Platelet Estimate PLT APPEAR DECREASED Sodium Level 139 Potassium Level 4.0 Chloride Level 96 L Carbon Dioxide Level 34 H Anion Gap 13 Blood Urea Nitrogen 18 Creatinine 0.84 Glucose Level 86 Calcium Level 8.5 Medications Medications Current Medications IV Flush (NS 10 ml) 10 ml PRN PRN IV IV PROTOCOL; Start 08/31/16 at 18:30 Metoprolol Tartrate (Lopressor) 5 mg Q4H PRN IV ELEVATED HEART RATE Last administered on 09/02/16 17:09; Admin Dose 5 MG; Start 09/02/16 at 17:30 Morphine Sulfate (morphine) 4 mg Q3 PRN IV PAIN Last administered on 09/12/16 13:00; Admin Dose 4 MG; Start 09/05/16 at 17:00 Morphine Sulfate (Ms Contin (Er)) 30 mg BID PO Last administered on 09/12/16 08:24; Admin Dose 30 MG; Start 09/05/16 at 21:00 Docusate Sodium (Colace) 100 mg TID PO Last administered on 09/12/16 12:58; Admin Dose 100 MG; Start 09/06/16 at 21:00 Bisacodyl (Dulcolax) 5 mg DAILY PRN PO CONSTIPATION Last administered on 16:28; Admin Dose 5 MG; Start 09/06/16 at 16:00 Pantoprazole (Protonix Tab) 40 mg DAILY@06 PO Last administered on 09/12/16 06 :17; Admin Dose 40 MG; Start 09/07/16 at 06:00 Atorvastatin Calcium (Lipitor) 20 mg QHS PO Last administered on 09/11/16 20: 51; Admin Dose 20 MG; Start 09/08/16 at 21:00 Docusate Sodium (Colace) 100 mg BID PRN PO CONSTIPATION; Start 09/08/16 at 13: 00 Escitalopram Oxalate (Lexapro) 10 mg DAILY PO Last administered on 09/12/16 08 :24; Admin Dose 10 MG; Start 09/09/16 at 09:00 Senna (Senokot) 1 tab Q12H PRN PO CONSTIPATION; Start 09/08/16 at 13:00 Trazodone HCl (Desyrel) 50 mg QHS PO Last administered on 09/11/16 20:51; Admin Dose 50 MG; Start 09/08/16 at 21:00 Voriconazole (Vfend) 100 mg BID PO Last administered on 09/12/16 08:24; Admin Dose 100 MG; Start 09/11/16 at 09:00 LUBA EARLY Sep 12, 2016 13:50
--- NOTE | 2016-09-12 17:58 | CONS ---
Date/Time of Note Date/Time of Note DATE: 09/12/16 TIME: 17:57 Assessment/Plan Assessment/Plan Chief Complaint/Hosp Course metastatic lung CANCER, NSCLC - ON CHEMO PANCYTOPENIA POST CHEMO LEUKOPENIA- POST CHEMO NEUPOGEN Hypoxemic respiratory failure, possibly secondary to a reaction to chemotherapy. History of coronary artery disease. chronic obstructive pulmonary disease- EXACERBATION CHECK CXR CHECK BNP PULM F-UP PLAN: Continue broad-spectrum antibiotics, currently on Voriconazole, meropenem and vancomycin.- PER ID - continue meropenem (09/01/16-) to complete 7-8 day course for possible HCAP - continue IV voriconazole 200mg q12 hrs. - f/u respiratory panel by NAAT (negative), mycoplasma by NAAT (pending), 1,3- [id number] (negative), cocci serology (negative), aspergillus antigen and antibody (not detected). - Records from [facility] were reviewed (concern for necrotizing aspergillus but unable to do biopsy) - DC droplet precautions Deep venous thrombosis and gastrointestinal prophylaxis. chemo on hold Problems: Consultation Date/Type/Reason Admit Date/Time Sep 01, 2016 at 14:47 Initial Consult Date 09/01/16 Type of Consultation: hemeon Referring Provider: MARYAM FARMER MD 24 HR Interval Summary Free Text/Dictation all noted + SOB DROP WBC NOTED AFEBRILE Exam/Review of Systems Vital Signs Vitals Vital Signs Date Time Temp Pulse Resp B/P Pulse Ox O2 Delivery O2 Flow Rate FiO2 09/12/16 16:12 94 09/12/16 15:05 98.7 18 113/73 97 09/12/16 07:22 Nasal Cannula 2.0 Intake and Output 09/11/16 09/11/16 09/12/16 15:00 23:00 07:00 Intake Total 1500 ml Output Total 1000 ml Balance 500 ml Exam Constitutional: alert, oriented Psych: nl mood/affect, no complaints Head: atraumatic, normocephalic Eyes: nl conjunctiva ENMT: nl external ears & nose Neck: non-tender, supple Respiratory: diminished breath sounds, wheezing Cardiovascular: nl pulses, regular rate and rhythm Gastrointestinal: non-tender, soft Musculoskeletal: nl extremities to inspection Extremities: normal pulses Neurological: FAC ENGINEER II-XII intact Results Result Diagram: 4/18/17 0622 4/18/17 0622 Results 24 hrs Laboratory Tests Test 09/12/16 06:22 White Blood Count 2.2 L Red Blood Count 2.76 L Hemoglobin 8.7 L Hematocrit 27.6 L Mean Corpuscular Volume 100.0 Mean Corpuscular Hemoglobin 31.5 Mean Corpuscular Hemoglobin Concent 31.5 L Red Cell Distribution Width 15.9 H Platelet Count 79 #L Mean Platelet Volume 10.7 H Neutrophils % 50.0 Lymphocytes % 39.0 Monocytes % 7.0 Eosinophils % 4.0 Neutrophils # 1.1 L Lymphocytes # 0.9 Monocytes # 0.2 L Eosinophils # 0.1 Platelet Estimate PLT APPEAR DECREASED Sodium Level 139 Potassium Level 4.0 Chloride Level 96 L Carbon Dioxide Level 34 H Anion Gap 13 Blood Urea Nitrogen 18 Creatinine 0.84 Glucose Level 86 Calcium Level 8.5 Medications Medications Current Medications IV Flush (NS 10 ml) 10 ml PRN PRN IV IV PROTOCOL; Start 08/31/16 at 18:30 Metoprolol Tartrate (Lopressor) 5 mg Q4H PRN IV ELEVATED HEART RATE Last administered on 09/02/16 17:09; Admin Dose 5 MG; Start 09/02/16 at 17:30 Morphine Sulfate (morphine) 4 mg Q3 PRN IV PAIN Last administered on 09/12/16 17:14; Admin Dose 4 MG; Start 09/05/16 at 17:00 Morphine Sulfate (Ms Contin (Er)) 30 mg BID PO Last administered on 09/12/16 08:24; Admin Dose 30 MG; Start 09/05/16 at 21:00 Docusate Sodium (Colace) 100 mg TID PO Last administered on 09/12/16 12:58; Admin Dose 100 MG; Start 09/06/16 at 21:00 Bisacodyl (Dulcolax) 5 mg DAILY PRN PO CONSTIPATION Last administered on 16:28; Admin Dose 5 MG; Start 09/06/16 at 16:00 Pantoprazole (Protonix Tab) 40 mg DAILY@06 PO Last administered on 09/12/16 06 :17; Admin Dose 40 MG; Start 09/07/16 at 06:00 Atorvastatin Calcium (Lipitor) 20 mg QHS PO Last administered on 09/11/16 20: 51; Admin Dose 20 MG; Start 09/08/16 at 21:00 Docusate Sodium (Colace) 100 mg BID PRN PO CONSTIPATION; Start 09/08/16 at 13: 00 Escitalopram Oxalate (Lexapro) 10 mg DAILY PO Last administered on 09/12/16 08 :24; Admin Dose 10 MG; Start 09/09/16 at 09:00 Senna (Senokot) 1 tab Q12H PRN PO CONSTIPATION; Start 09/08/16 at 13:00 Trazodone HCl (Desyrel) 50 mg QHS PO Last administered on 09/11/16 20:51; Admin Dose 50 MG; Start 09/08/16 at 21:00 Voriconazole (Vfend) 100 mg BID PO Last administered on 09/12/16 08:24; Admin Dose 100 MG; Start 09/11/16 at 09:00 DAHIANA BABCOCK MD Sep 12, 2016 17:58
[2016-09-12] MEDS: FILGRASTIM 300 MCG INJ SC SCH (18:26)
[2016-09-12] MEDS: ATORVASTATIN 20 MG TAB PO SCH (20:10)
[2016-09-12] MEDS: traZODone 50 MG TAB PO SCH (20:13)
[2016-09-13] VITALS (13 sets, daily range): BP systolic 110–156; BP diastolic 64–89; PULSE 90–107; RESP 18–22
[2016-09-13] MEDS: morphine 4 MG/ML VIAL IV PRN ×6 (00:07→22:25)
[2016-09-13] MEDS: LEVOTHYROXINE 50 MCG TAB PO SCH (06:06)
[2016-09-13] MEDS: PANTOPRAZOLE (EC) 40 MG TAB PO SCH (06:06)
[2016-09-13 06:55] LABS: ALBUMIN/GLOBULIN RATIO 0.9; BILIRUBIN,INDIRECT 0.2 mg/dl (0-1.1); BILIRUBIN,TOTAL 0.2 mg/dl (0.2-1.3); CALCIUM 8.2 mg/dl (8.4-10.2); CREATININE 0.87 mg/dl (0.61-1.24); POTASSIUM 4.2 mmol/L (3.5-5.1); TOTAL PROTEIN 6.3 g/dl (6.1-8.1)
[2016-09-13] MEDS: morphine (ER) 30 MG TAB PO SCH ×2 (08:05→20:27)
[2016-09-13] MEDS: VORICONAZOLE 200 MG TAB PO SCH ×2 (08:05→20:27)
[2016-09-13] MEDS: ESCITALOPRAM 10 MG TAB PO SCH (08:05)
[2016-09-13] MEDS: DOCUSATE SODIUM 100 MG CAP PO SCH ×3 (08:05→20:27)
--- NOTE | 2016-09-13 10:47 | CONS ---
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 Problems: Consultation Date/Type/Reason Admit Date/Time Sep 01, 2016 at 14:47 Initial Consult Date 09/01/16 Type of Consultation: id Referring Provider: MARYAM FARMER MD Exam/Review of Systems Vital Signs Vitals Vital Signs Date Time Temp Pulse Resp B/P Pulse Ox O2 Delivery O2 Flow Rate FiO2 09/13/16 08:04 98.3 107 18 122/64 96 Nasal Cannula 2.0 Intake and Output 09/12/16 09/12/16 09/13/16 15:00 23:00 07:00 Intake Total 720 ml 250 ml Balance 720 ml 250 ml Exam Constitutional: alert, oriented, well developed Psych: nl mood/affect, no complaints Head: atraumatic, normocephalic Eyes: EOMI, PERRL, nl conjunctiva, nl lids, nl sclera Respiratory: congested cough, diminished breath sounds Cardiovascular: regular rate and rhythm Gastrointestinal: soft Results Result Diagram: 09/12/16 0622 09/13/16 0606 Results 24 hrs Laboratory Tests Test 09/13/16 06:06 Sodium Level 136 Potassium Level 4.2 Chloride Level 99 Carbon Dioxide Level 33 H Anion Gap 8 Blood Urea Nitrogen 18 Creatinine 0.87 Glucose Level 90 Calcium Level 8.2 L Total Bilirubin 0.2 Direct Bilirubin 0.00 Indirect Bilirubin 0.2 Aspartate Amino Transf (AST/SGOT) 20 Alanine Aminotransferase (ALT/SGPT) 19 Alkaline Phosphatase 89 Total Protein 6.3 Albumin 3.0 L Globulin 3.30 H Albumin/Globulin Ratio 0.90 Medications Medications Current Medications IV Flush (NS 10 ml) 10 ml PRN PRN IV IV PROTOCOL; Start 08/31/16 at 18:30 Metoprolol Tartrate (Lopressor) 5 mg Q4H PRN IV ELEVATED HEART RATE Last administered on 09/02/16 17:09; Admin Dose 5 MG; Start 09/02/16 at 17:30 Morphine Sulfate (morphine) 4 mg Q3 PRN IV PAIN Last administered on 09/13/16 10:27; Admin Dose 4 MG; Start 09/05/16 at 17:00 Morphine Sulfate (Ms Contin (Er)) 30 mg BID PO Last administered on 09/13/16 08:05; Admin Dose 30 MG; Start 09/05/16 at 21:00 Docusate Sodium (Colace) 100 mg TID PO Last administered on 09/13/16 08:05; Admin Dose 100 MG; Start 09/06/16 at 21:00 Bisacodyl (Dulcolax) 5 mg DAILY PRN PO CONSTIPATION Last administered on 16:28; Admin Dose 5 MG; Start 09/06/16 at 16:00 Pantoprazole (Protonix Tab) 40 mg DAILY@06 PO Last administered on 09/13/16 06 :06; Admin Dose 40 MG; Start 09/07/16 at 06:00 Atorvastatin Calcium (Lipitor) 20 mg QHS PO Last administered on 09/12/16 20: 10; Admin Dose 20 MG; Start 09/08/16 at 21:00 Docusate Sodium (Colace) 100 mg BID PRN PO CONSTIPATION; Start 09/08/16 at 13: 00 Escitalopram Oxalate (Lexapro) 10 mg DAILY PO Last administered on 09/13/16 08 :05; Admin Dose 10 MG; Start 09/09/16 at 09:00 Senna (Senokot) 1 tab Q12H PRN PO CONSTIPATION; Start 09/08/16 at 13:00 Trazodone HCl (Desyrel) 50 mg QHS PO Last administered on 09/12/16 20:13; Admin Dose 50 MG; Start 09/08/16 at 21:00 Voriconazole (Vfend) 100 mg BID PO Last administered on 09/13/16 08:05; Admin Dose 100 MG; Start 09/11/16 at 09:00 Filgrastim (Neupogen) 300 mcg DAILY@17 SC Last administered on 09/12/16 18:26 ; Admin Dose 300 MCG; Start 09/12/16 at 18:00 DELIO DIALLO MD Sep 13, 2016 10:47
--- NOTE | 2016-09-13 12:29 | CONS ---
Date/Time of Note Date/Time of Note DATE: 09/13/16 TIME: 12:28 Assessment/Plan Assessment/Plan Chief Complaint/Hosp Course metastatic lung CANCER, NSCLC - ON CHEMO PANCYTOPENIA POST CHEMO LEUKOPENIA- POST CHEMO NEUPOGEN Hypoxemic respiratory failure, possibly secondary to a reaction to chemotherapy. History of coronary artery disease. chronic obstructive pulmonary disease- EXACERBATION CHECK CXR CHECK BNP PULM F-UP PLAN: Continue broad-spectrum antibiotics, currently on Voriconazole, meropenem and vancomycin.- PER ID - continue meropenem (09/01/16-) to complete 7-8 day course for possible HCAP - continue IV voriconazole 200mg q12 hrs. - f/u respiratory panel by NAAT (negative), mycoplasma by NAAT (pending), 1,3- [id number] (negative), cocci serology (negative), aspergillus antigen and antibody (not detected). - Records from [facility] were reviewed (concern for necrotizing aspergillus but unable to do biopsy) - DC droplet precautions Deep venous thrombosis and gastrointestinal prophylaxis. chemo on hold Problems: Consultation Date/Type/Reason Admit Date/Time Sep 01, 2016 at 14:47 Initial Consult Date 09/01/16 Type of Consultation: HEMEON Referring Provider: MARYAM FARMER MD 24 HR Interval Summary Free Text/Dictation ALL NOTED NO NEW EVENTS Exam/Review of Systems Vital Signs Vitals Vital Signs Date Time Temp Pulse Resp B/P Pulse Ox O2 Delivery O2 Flow Rate FiO2 09/13/16 12:01 97 09/13/16 11:12 98.3 19 149/89 94 09/13/16 08:04 Nasal Cannula 2.0 Intake and Output 09/12/16 09/12/16 09/13/16 15:00 23:00 07:00 Intake Total 720 ml 250 ml Balance 720 ml 250 ml Exam Constitutional: alert, oriented, well developed Psych: nl mood/affect, no complaints Head: atraumatic, normocephalic Eyes: EOMI, PERRL, nl conjunctiva, nl lids, nl sclera Respiratory: congested cough, diminished breath sounds Cardiovascular: regular rate and rhythm Gastrointestinal: soft Results Result Diagram: 09/12/16 0622 09/13/16 0606 Results 24 hrs Laboratory Tests Test 09/13/16 06:06 Sodium Level 136 Potassium Level 4.2 Chloride Level 99 Carbon Dioxide Level 33 H Anion Gap 8 Blood Urea Nitrogen 18 Creatinine 0.87 Glucose Level 90 Calcium Level 8.2 L Total Bilirubin 0.2 Direct Bilirubin 0.00 Indirect Bilirubin 0.2 Aspartate Amino Transf (AST/SGOT) 20 Alanine Aminotransferase (ALT/SGPT) 19 Alkaline Phosphatase 89 Total Protein 6.3 Albumin 3.0 L Globulin 3.30 H Albumin/Globulin Ratio 0.90 Medications Medications Current Medications IV Flush (NS 10 ml) 10 ml PRN PRN IV IV PROTOCOL; Start 08/31/16 at 18:30 Metoprolol Tartrate (Lopressor) 5 mg Q4H PRN IV ELEVATED HEART RATE Last administered on 09/02/16 17:09; Admin Dose 5 MG; Start 09/02/16 at 17:30 Morphine Sulfate (morphine) 4 mg Q3 PRN IV PAIN Last administered on 09/13/16 10:27; Admin Dose 4 MG; Start 09/05/16 at 17:00 Morphine Sulfate (Ms Contin (Er)) 30 mg BID PO Last administered on 09/13/16 08:05; Admin Dose 30 MG; Start 09/05/16 at 21:00 Docusate Sodium (Colace) 100 mg TID PO Last administered on 09/13/16 08:05; Admin Dose 100 MG; Start 09/06/16 at 21:00 Bisacodyl (Dulcolax) 5 mg DAILY PRN PO CONSTIPATION Last administered on 16:28; Admin Dose 5 MG; Start 09/06/16 at 16:00 Pantoprazole (Protonix Tab) 40 mg DAILY@06 PO Last administered on 09/13/16 06 :06; Admin Dose 40 MG; Start 09/07/16 at 06:00 Atorvastatin Calcium (Lipitor) 20 mg QHS PO Last administered on 09/12/16 20: 10; Admin Dose 20 MG; Start 09/08/16 at 21:00 Docusate Sodium (Colace) 100 mg BID PRN PO CONSTIPATION; Start 09/08/16 at 13: 00 Escitalopram Oxalate (Lexapro) 10 mg DAILY PO Last administered on 09/13/16 08 :05; Admin Dose 10 MG; Start 09/09/16 at 09:00 Senna (Senokot) 1 tab Q12H PRN PO CONSTIPATION; Start 09/08/16 at 13:00 Trazodone HCl (Desyrel) 50 mg QHS PO Last administered on 09/12/16 20:13; Admin Dose 50 MG; Start 09/08/16 at 21:00 Voriconazole (Vfend) 100 mg BID PO Last administered on 09/13/16 08:05; Admin Dose 100 MG; Start 09/11/16 at 09:00 Filgrastim (Neupogen) 300 mcg DAILY@17 SC Last administered on 09/12/16 18:26 ; Admin Dose 300 MCG; Start 09/12/16 at 18:00 DAHIANA BABCOCK MD Sep 13, 2016 12:28
--- NOTE | 2016-09-13 15:05 | CONS ---
Date/Time of Note Date/Time of Note DATE: 09/13/16 TIME: 15:01 Assessment/Plan Assessment/Plan Chief Complaint/Hosp Course IMPRESSION: 1. Cardiac arrhythmia, with currently rhythm most consistent with sinus tachycardia, but also having pauses. Negative troponin x 3/TSH elevated-no recurrence/reasonable HR control 2. Abnormal electrocardiogram. trop negative x3/NL EF by echo this admit 3. Hypertension, labile. 4. Dyslipidemia. 5. Pneumonia and bronchitis. 6. Lung cancer. 7. Hypothyroidism. 8. Anemia. 9. Thrombocytopenia, severe. 10. Prior hemoptysis. 11.BNP-elevated Recc: -Tele monitoring -Continue statin -PRN IVP BB as necessary -Contine voriconazole Problems: Consultation Date/Type/Reason Admit Date/Time Sep 01, 2016 at 14:47 Initial Consult Date 09/01/16 Type of Consultation: Cardiology Reason for Consultation cardiac arrythmia Referring Provider: MARYAM FARMER MD Exam/Review of Systems Vital Signs Vitals Vital Signs Date Time Temp Pulse Resp B/P Pulse Ox O2 Delivery O2 Flow Rate FiO2 09/13/16 12:01 97 09/13/16 11:12 98.3 19 149/89 94 09/13/16 08:04 Nasal Cannula 2.0 Intake and Output 09/12/16 09/12/16 09/13/16 15:00 23:00 07:00 Intake Total 720 ml 250 ml Balance 720 ml 250 ml Exam Review of Systems: CONSTITUTIONAL: No fevers, chills. PULMONARY: moderate sob CARDIOVASCULAR: No chest pain/palpitations GASTROINTESTINAL: No nausea/vomiting. GENITOURINARY: No hematuria/dysuria. MUSCULOSKELETAL: No myagias/arthalgias. PSYCHIATRIC: The patient denies depression. NEUROLOGIC: No weakness Constitutional: alert Psych: no complaints Head: normocephalic ENMT: mucosa pink and moist Neck: jvd (9 cm water), supple Respiratory: diminished breath sounds (at bases/B) Cardiovascular: regular rate and rhythm Gastrointestinal: soft Musculoskeletal: muscle tone Extremities: edema (none) Neurological: other (No focal deficits) Results Result Diagram: 09/12/16 0622 09/13/16 0606 Results 24 hrs Laboratory Tests Test 09/13/16 06:06 Sodium Level 136 Potassium Level 4.2 Chloride Level 99 Carbon Dioxide Level 33 H Anion Gap 8 Blood Urea Nitrogen 18 Creatinine 0.87 Glucose Level 90 Calcium Level 8.2 L Total Bilirubin 0.2 Direct Bilirubin 0.00 Indirect Bilirubin 0.2 Aspartate Amino Transf (AST/SGOT) 20 Alanine Aminotransferase (ALT/SGPT) 19 Alkaline Phosphatase 89 Total Protein 6.3 Albumin 3.0 L Globulin 3.30 H Albumin/Globulin Ratio 0.90 Medications Medications Current Medications IV Flush (NS 10 ml) 10 ml PRN PRN IV IV PROTOCOL; Start 08/31/16 at 18:30 Metoprolol Tartrate (Lopressor) 5 mg Q4H PRN IV ELEVATED HEART RATE Last administered on 09/02/16 17:09; Admin Dose 5 MG; Start 09/02/16 at 17:30 Morphine Sulfate (morphine) 4 mg Q3 PRN IV PAIN Last administered on 09/13/16 14:42; Admin Dose 4 MG; Start 09/05/16 at 17:00 Morphine Sulfate (Ms Contin (Er)) 30 mg BID PO Last administered on 09/13/16 08:05; Admin Dose 30 MG; Start 09/05/16 at 21:00 Docusate Sodium (Colace) 100 mg TID PO Last administered on 09/13/16 12:41; Admin Dose 100 MG; Start 09/06/16 at 21:00 Bisacodyl (Dulcolax) 5 mg DAILY PRN PO CONSTIPATION Last administered on 16:28; Admin Dose 5 MG; Start 09/06/16 at 16:00 Pantoprazole (Protonix Tab) 40 mg DAILY@06 PO Last administered on 09/13/16 06 :06; Admin Dose 40 MG; Start 09/07/16 at 06:00 Atorvastatin Calcium (Lipitor) 20 mg QHS PO Last administered on 09/12/16 20: 10; Admin Dose 20 MG; Start 09/08/16 at 21:00 Docusate Sodium (Colace) 100 mg BID PRN PO CONSTIPATION; Start 09/08/16 at 13: 00 Escitalopram Oxalate (Lexapro) 10 mg DAILY PO Last administered on 09/13/16 08 :05; Admin Dose 10 MG; Start 09/09/16 at 09:00 Senna (Senokot) 1 tab Q12H PRN PO CONSTIPATION; Start 09/08/16 at 13:00 Trazodone HCl (Desyrel) 50 mg QHS PO Last administered on 09/12/16 20:13; Admin Dose 50 MG; Start 09/08/16 at 21:00 Voriconazole (Vfend) 100 mg BID PO Last administered on 09/13/16 08:05; Admin Dose 100 MG; Start 09/11/16 at 09:00 Filgrastim (Neupogen) 300 mcg DAILY@17 SC Last administered on 09/12/16 18:26 ; Admin Dose 300 MCG; Start 09/12/16 at 18:00 MARIAA ÁLVAREZ Sep 13, 2016 15:05
--- NOTE | 2016-09-13 16:51 | RADRPT ---
PROCEDURE: Chest x-ray CLINICAL INDICATION: PICC TECHNIQUE: Single frontal view of the chest was obtained COMPARISON: 09/11/2016 FINDINGS: Stable position of left PICC with the tip in the superior vena cava. The cardiac size is normal. Aortic vascular calcifications are demonstrated. There is no pulmonary vascular congestion. Stable elevation of the right hemidiaphragm with associated atelectasis. Stable right upper lobe co nsolidation. Mild degenerative changes of the visualized osseous structures are visualized. IMPRESSION: 1. Stable position of left PICC. 2. Stable elevation of the right hemidiaphragm with associated atelectasis. Stable right upper lobe consolidation.. RPTAT:PP .Alan Sherman MD, Date Time Electronically viewed and signed by .Alan Sherman MD, on 09/13/2016 16:50 .V/
--- NOTE | 2016-09-13 16:54 | PN ---
Date/Time of Note Date/Time of Note DATE: 09/13/16 TIME: 16:52 Assessment/Plan VTE Prophylaxis VTE Prophylaxis Intervention: SCD's Lines/Catheters IV Catheter Type (from Nrs): PICC Line Central line still needed: Yes Assessment/Plan Chief Complaint/Hosp Course Assessment/Plan - S/p severe sepsis due to pneumonia/bronchitis, Dr. Fraga group is following infection disease consultation. - Advanced non-small cell lung CA, on biweekly chemotherapy infusion x2 years, Dr. Scanlon is following in oncology consultation. - Acute respiratory failure, resolving. Dr. Castanon is following in pulmonology consultation. - Pancytopenia due to chemotherapy -Acute on chronic diastolic congestive heart failure, continue gentle diuresis, continue to monitor electrolytes. -Cardiac arrhythmia, Dr. Gaytan is following in cardiology consultation. 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 Further recommendations based on clinical course. Plan of care discussed with Dr. Lincoln. Problems: Subjective 24 Hr Interval Summary Free Text/Dictation Patient continues to have shortness of breath on exertion, feels more comfortable at rest on supplemental oxygen. Exam/Review of Systems Vital Signs Vitals Vital Signs Date Time Temp Pulse Resp B/P Pulse Ox O2 Delivery O2 Flow Rate FiO2 09/13/16 16:03 96 09/13/16 15:31 98.3 19 156/86 96 09/13/16 08:04 Nasal Cannula 2.0 Intake and Output 09/12/16 09/12/16 09/13/16 15:00 23:00 07:00 Intake Total 720 ml 250 ml Balance 720 ml 250 ml Exam Constitutional: alert, oriented Psych: nl mood/affect, no complaints Head: atraumatic, normocephalic Eyes: nl conjunctiva ENMT: nl external ears & nose Neck: non-tender, supple Respiratory: diminished breath sounds, wheezing Cardiovascular: nl pulses, regular rate and rhythm Gastrointestinal: non-tender, soft Musculoskeletal: nl extremities to inspection Extremities: normal pulses Neurological: FRUIT BAR MAKER II-XII intact Results Result Diagram: 09/12/1622 09/13/16 0606 Results 24 hrs Laboratory Tests Test 09/13/16 06:06 Sodium Level 136 Potassium Level 4.2 Chloride Level 99 Carbon Dioxide Level 33 H Anion Gap 8 Blood Urea Nitrogen 18 Creatinine 0.87 Glucose Level 90 Calcium Level 8.2 L Total Bilirubin 0.2 Direct Bilirubin 0.00 Indirect Bilirubin 0.2 Aspartate Amino Transf (AST/SGOT) 20 Alanine Aminotransferase (ALT/SGPT) 19 Alkaline Phosphatase 89 Total Protein 6.3 Albumin 3.0 L Globulin 3.30 H Albumin/Globulin Ratio 0.90 Medications Medications Current Medications IV Flush (NS 10 ml) 10 ml PRN PRN IV IV PROTOCOL; Start 08/31/16 at 18:30 Metoprolol Tartrate (Lopressor) 5 mg Q4H PRN IV ELEVATED HEART RATE Last administered on 09/02/16 17:09; Admin Dose 5 MG; Start 09/02/16 at 17:30 Morphine Sulfate (morphine) 4 mg Q3 PRN IV PAIN Last administered on 09/13/16 14:42; Admin Dose 4 MG; Start 09/05/16 at 17:00 Morphine Sulfate (Ms Contin (Er)) 30 mg BID PO Last administered on 09/13/16 08:05; Admin Dose 30 MG; Start 09/05/16 at 21:00 Docusate Sodium (Colace) 100 mg TID PO Last administered on 09/13/16 12:41; Admin Dose 100 MG; Start 09/06/16 at 21:00 Bisacodyl (Dulcolax) 5 mg DAILY PRN PO CONSTIPATION Last administered on 16:28; Admin Dose 5 MG; Start 09/06/16 at 16:00 Pantoprazole (Protonix Tab) 40 mg DAILY@06 PO Last administered on 09/13/16 06 :06; Admin Dose 40 MG; Start 09/07/16 at 06:00 Atorvastatin Calcium (Lipitor) 20 mg QHS PO Last administered on 09/12/16 20: 10; Admin Dose 20 MG; Start 09/08/16 at 21:00 Docusate Sodium (Colace) 100 mg BID PRN PO CONSTIPATION; Start 09/08/16 at 13: 00 Escitalopram Oxalate (Lexapro) 10 mg DAILY PO Last administered on 09/13/16 08 :05; Admin Dose 10 MG; Start 4/15/17 at 09:00 Senna (Senokot) 1 tab Q12H PRN PO CONSTIPATION; Start 09/08/16 at 13:00 Trazodone HCl (Desyrel) 50 mg QHS PO Last administered on 09/12/16 20:13; Admin Dose 50 MG; Start 09/08/16 at 21:00 Voriconazole (Vfend) 100 mg BID PO Last administered on 09/13/16 08:05; Admin Dose 100 MG; Start 09/11/16 at 09:00 Filgrastim (Neupogen) 300 mcg DAILY@17 SC Last administered on 09/12/16 18:26 ; Admin Dose 300 MCG; Start 09/12/16 at 18:00 LUBA EARLY Sep 13, 2016 16:54
[2016-09-13] MEDS: FILGRASTIM 300 MCG INJ SC SCH (17:29)
[2016-09-13] MEDS ORDERED: SENNA TAB PO PRN (18:30)
[2016-09-13] MEDS ORDERED: DOCUSATE SODIUM 100 MG CAP PO PRN (18:30)
[2016-09-13] MEDS: traZODone 50 MG TAB PO SCH (20:26)
[2016-09-13] MEDS: ATORVASTATIN 20 MG TAB PO SCH (20:26)
[2016-09-13] MEDS ORDERED: SOD CHLORIDE 0.9% IVPB SCH (21:00)
[2016-09-13] MEDS ORDERED: METOPROLOL 25 MG TAB PO SCH (21:00)
[2016-09-13] MEDS ORDERED: traZODone 50 MG TAB PO SCH (21:00)
[2016-09-13] MEDS ORDERED: ATORVASTATIN 20 MG TAB PO SCH (21:00)
[2016-09-13] MEDS ORDERED: VORICONAZOLE IVPB SCH (21:00)
[2016-09-13] MEDS ORDERED: VORICONAZOLE 200 MG TAB PO SCH (21:00)
[2016-09-13] MEDS ORDERED: MEROPENEM 1 GM/100 ML (PMX) 100 ML IVPB SCH (22:00)
[2016-09-14] MEDS: morphine 4 MG/ML VIAL IV PRN ×6 (03:26→23:19)
[2016-09-14] MEDS: PANTOPRAZOLE (EC) 40 MG TAB PO SCH (05:48)
[2016-09-14] MEDS: LEVOTHYROXINE 50 MCG TAB PO SCH (05:48)
[2016-09-14 05:55] LABS: ADD SCAN DIFF NO
[2016-09-14 06:17] LABS: ABNORMAL IP MESSAGE 1; BASOPHILS % 0.3 % (0.0-2.0); EOSINOPHILS # 0.2 10^3/ul (0.0-0.5); HEMATOCRIT 30.6 % (42.0-52.0); HEMOGLOBIN 9.4 g/dl (14.0-18.0); LYMPHOCYTES # 0.7 10^3/ul (0.8-2.9); LYMPHOCYTES % 21.8 % (15.0-51.0); MEAN CORPUSCULAR HEMOGLOBIN 30.8 pg (29.0-33.0); MEAN CORPUSCULAR HGB CONC 30.7 g/dl (32.0-37.0); MEAN CORPUSCULAR VOLUME 100.3 fl (82.0-101.0); MEAN PLATELET VOLUME 10.7 fl (7.4-10.4); MONOCYTE # 0.4 10^3/ul (0.3-0.9); MONOCYTES % 13.2 % (0.0-11.0); NEUTROPHIL # 1.8 10^3/ul (1.6-7.5); NEUTROPHILS % 57.8 % (39.0-77.0); PLATELET COUNT 90 10^3/UL (140-415); RED BLOOD COUNT 3.05 10^6/ul (4.70-6.10); RED CELL DISTRIBUTION WIDTH 15.3 % (11.5-14.5); WHITE BLOOD COUNT 3.2 10^3/ul (4.8-10.8)
[2016-09-14 06:33] LABS: POTASSIUM 3.8 mmol/L (3.5-5.1)
[2016-09-14 06:36] LABS: CREATININE 1.01 mg/dl (0.61-1.24)
[2016-09-14 06:37] LABS: CALCIUM 8.6 mg/dl (8.4-10.2)
[2016-09-14] MEDS ORDERED: LEVOTHYROXINE 50 MCG TAB PO SCH (07:00)
[2016-09-14] MEDS ORDERED: LEVOTHYROXINE 75 MCG TAB PO SCH (07:00)
[2016-09-14 07:44] VITALS: BP 106/66; RESP 20
[2016-09-14] MEDS: ASPIRIN (EC) 81 MG TAB PO SCH (09:00)
[2016-09-14] MEDS: DOCUSATE SODIUM 100 MG CAP PO SCH ×3 (09:00→20:45)
[2016-09-14] MEDS: morphine (ER) 30 MG TAB PO SCH ×2 (09:00→20:46)
[2016-09-14] MEDS: VORICONAZOLE 200 MG TAB PO SCH ×2 (09:00→20:46)
[2016-09-14] MEDS: ESCITALOPRAM 10 MG TAB PO SCH (09:00)
[2016-09-14] MEDS ORDERED: ESCITALOPRAM 10 MG TAB PO SCH (09:00)
--- NOTE | 2016-09-14 11:57 | PN ---
Date/Time of Note Date/Time of Note DATE: 09/14/16 TIME: 11:54 Assessment/Plan VTE Prophylaxis VTE Prophylaxis Intervention: other Lines/Catheters IV Catheter Type (from [facility]): PICC Line Central line still needed: Yes Assessment/Plan Assessment/Plan - S/p severe sepsis due to pneumonia/bronchitis -Per Dr. Fraga [place] infection disease consultation. - Advanced non-small cell lung CA, on biweekly chemotherapy infusion x2 years - per Dr. Scanlon in oncology consultation. - Acute respiratory failure, resolving. - per Dr. Castanon in pulmonology consultation. - Pancytopenia due to chemotherapy -Acute on chronic diastolic congestive heart failure, continue gentle diuresis, continue to monitor electrolytes. - per Dr. Gaytan in cardiology -Cardiac arrhythmia, Dr. Gaytan in cardiology consultation. 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 Further recommendations based on clinical course. Plan of care discussed with Dr. Lincoln. Subjective 24 Hr Interval Summary Free Text/Dictation Complain of shortness of breath on room air. Concern about having portable oxygen at home. Discussed with staff. Constitutional: requiring O2 Eyes: no complaints ENT: no complaints Respiratory: shortness of breath Cardiovascular: no complaints Gastrointestinal: no complaints Genitourinary: no complaints Musculoskeletal: no complaints Skin: no complaints Neurologic: no complaints Endocrine: no complaints Exam/Review of Systems Vital Signs Vitals Vital Signs Date Time Temp Pulse Resp B/P Pulse Ox O2 Delivery O2 Flow Rate FiO2 09/14/16 07:44 98.7 94 20 106/66 90 09/14/16 01:25 2.0 09/13/16 20:00 Nasal Cannula Intake and Output 09/13/16 09/13/16 09/14/16 15:00 23:00 07:00 Intake Total 800 ml 120 ml Balance 800 ml 120 ml Exam Constitutional: alert, oriented, well developed Psych: nl mood/affect Eyes: EOMI, PERRL, nl sclera ENMT: nl external ears & nose Neck: non-tender Respiratory: diminished breath sounds Cardiovascular: nl pulses Gastrointestinal: non-tender, soft Musculoskeletal: nl extremities to inspection Extremities: normal pulses Neurological: nl mental status, nl speech Skin: nl turgor Results Result Diagram: 09/14/16 0515 09/14/16 0525 Results 24 hrs Laboratory Tests Test 09/14/16 05:15 09/14/16 05:25 White Blood Count 3.2 #L Red Blood Count 3.05 L Hemoglobin 9.4 L Hematocrit 30.6 L Mean Corpuscular Volume 100.3 Mean Corpuscular Hemoglobin 30.8 Mean Corpuscular Hemoglobin Concent 30.7 L Red Cell Distribution Width 15.3 H Platelet Count 90 L Mean Platelet Volume 10.7 H Neutrophils % 57.8 Lymphocytes % 21.8 Monocytes % 13.2 H Eosinophils % 6.0 Basophils % 0.3 Nucleated Red Blood Cells % 0.0 Neutrophils # 1.8 Lymphocytes # 0.7 L Monocytes # 0.4 Eosinophils # 0.2 Basophils # 0.0 Nucleated Red Blood Cells # 0.0 Sodium Level 139 Potassium Level 3.8 Chloride Level 96 L Carbon Dioxide Level 35 H Anion Gap 12 Blood Urea Nitrogen 19 Creatinine 1.01 Glucose Level 94 Calcium Level 8.6 Medications Medications Current Medications IV Flush (NS 10 ml) 10 ml PRN PRN IV IV PROTOCOL; Start 08/31/16 at 18:30 Metoprolol Tartrate (Lopressor) 5 mg Q4H PRN IV ELEVATED HEART RATE Last administered on 09/02/16 17:09; Admin Dose 5 MG; Start 09/02/16 at 17:30 Morphine Sulfate (morphine) 4 mg Q3 PRN IV PAIN Last administered on 09/14/16 10:34; Admin Dose 4 MG; Start 09/05/16 at 17:00 Morphine Sulfate (Ms Contin (Er)) 30 mg BID PO Last administered on 09/13/16 20:27; Admin Dose 30 MG; Start 09/05/16 at 21:00 Docusate Sodium (Colace) 100 mg TID PO Last administered on 09/13/16 20:27; Admin Dose 100 MG; Start 09/06/16 at 21:00 Bisacodyl (Dulcolax) 5 mg DAILY PRN PO CONSTIPATION Last administered on 16:28; Admin Dose 5 MG; Start 09/06/16 at 16:00 Pantoprazole (Protonix Tab) 40 mg DAILY@06 PO Last administered on 09/13/16 06 :06; Admin Dose 40 MG; Start 09/07/16 at 06:00 Atorvastatin Calcium (Lipitor) 20 mg QHS PO Last administered on 09/13/16 20: 26; Admin Dose 20 MG; Start 09/08/16 at 21:00 Docusate Sodium (Colace) 100 mg BID PRN PO CONSTIPATION; Start 09/08/16 at 13: 00 Escitalopram Oxalate (Lexapro) 10 mg DAILY PO Last administered on 09/13/16 08 :05; Admin Dose 10 MG; Start 09/09/16 at 09:00 Senna (Senokot) 1 tab Q12H PRN PO CONSTIPATION; Start 09/08/16 at 13:00 Trazodone HCl (Desyrel) 50 mg QHS PO Last administered on 09/13/16 20:26; Admin Dose 50 MG; Start 09/08/16 at 21:00 Voriconazole (Vfend) 100 mg BID PO Last administered on 09/13/16 20:27; Admin Dose 100 MG; Start 09/11/16 at 09:00 Filgrastim (Neupogen) 300 mcg DAILY@17 SC Last administered on 09/13/16 17:29 ; Admin Dose 300 MCG; Start 09/12/16 at 18:00 Aspirin (Halfprin) 81 mg DAILY PO ; Start 09/14/16 at 09:00 TRAMAINE ELLSWORTH Sep 14, 2016 11:57
--- NOTE | 2016-09-14 12:03 | CONS ---
Date/Time of Note Date/Time of Note DATE: 09/14/16 TIME: 11:59 Assessment/Plan Assessment/Plan Chief Complaint/Hosp Course IMPRESSION: 1. Cardiac arrhythmia, with currently rhythm most consistent with sinus tachycardia, but also having pauses. Negative troponin x 3/TSH elevated-no recurrence/reasonable HR control 2. Abnormal electrocardiogram. trop negative x3/NL EF by echo this admit 3. Hypertension, labile. 4. Dyslipidemia. 5. Pneumonia and bronchitis. 6. Lung cancer. 7. Hypothyroidism. 8. Anemia. 9. Thrombocytopenia, severe. 10. Prior hemoptysis. 11.BNP-elevated Recc: -Tele monitoring -Continue statin -PRN IVP BB as necessary -Contine voriconazole -Onc following Problems: Consultation Date/Type/Reason Admit Date/Time Sep 01, 2016 at 14:47 Initial Consult Date 09/01/16 Type of Consultation: Cardiology Reason for Consultation CHF Referring Provider: MARYAM FARMER MD Exam/Review of Systems Vital Signs Vitals Vital Signs Date Time Temp Pulse Resp B/P Pulse Ox O2 Delivery O2 Flow Rate FiO2 09/14/16 07:44 98.7 94 20 106/66 90 09/14/16 01:25 2.0 09/13/16 20:00 Nasal Cannula Intake and Output 09/13/16 09/13/16 09/14/16 15:00 23:00 07:00 Intake Total 800 ml 120 ml Balance 800 ml 120 ml Exam Review of Systems: CONSTITUTIONAL: No fevers, chills. PULMONARY: ongoing sob CARDIOVASCULAR: No chest pain/palpitations GASTROINTESTINAL: No nausea/vomiting. GENITOURINARY: No hematuria/dysuria. MUSCULOSKELETAL: No myagias/arthalgias. PSYCHIATRIC: The patient denies depression. NEUROLOGIC: No weakness Constitutional: alert, oriented Psych: no complaints ENMT: mucosa pink and moist Neck: jvd (9 cm water), supple Respiratory: diminished breath sounds (at bases/B) Cardiovascular: regular rate and rhythm Gastrointestinal: non-tender, soft Extremities: other (No focal deficits) Results Result Diagram: 09/14/16 0515 09/14/16 0525 Results 24 hrs Laboratory Tests Test 09/14/16 05:15 09/14/16 05:25 White Blood Count 3.2 #L Red Blood Count 3.05 L Hemoglobin 9.4 L Hematocrit 30.6 L Mean Corpuscular Volume 100.3 Mean Corpuscular Hemoglobin 30.8 Mean Corpuscular Hemoglobin Concent 30.7 L Red Cell Distribution Width 15.3 H Platelet Count 90 L Mean Platelet Volume 10.7 H Neutrophils % 57.8 Lymphocytes % 21.8 Monocytes % 13.2 H Eosinophils % 6.0 Basophils % 0.3 Nucleated Red Blood Cells % 0.0 Neutrophils # 1.8 Lymphocytes # 0.7 L Monocytes # 0.4 Eosinophils # 0.2 Basophils # 0.0 Nucleated Red Blood Cells # 0.0 Sodium Level 139 Potassium Level 3.8 Chloride Level 96 L Carbon Dioxide Level 35 H Anion Gap 12 Blood Urea Nitrogen 19 Creatinine 1.01 Glucose Level 94 Calcium Level 8.6 Medications Medications Current Medications IV Flush (NS 10 ml) 10 ml PRN PRN IV IV PROTOCOL; Start 08/31/16 at 18:30 Metoprolol Tartrate (Lopressor) 5 mg Q4H PRN IV ELEVATED HEART RATE Last administered on 09/02/16 17:09; Admin Dose 5 MG; Start 09/02/16 at 17:30 Morphine Sulfate (morphine) 4 mg Q3 PRN IV PAIN Last administered on 09/14/16 10:34; Admin Dose 4 MG; Start 09/05/16 at 17:00 Morphine Sulfate (Ms Contin (Er)) 30 mg BID PO Last administered on 09/13/16 20:27; Admin Dose 30 MG; Start 09/05/16 at 21:00 Docusate Sodium (Colace) 100 mg TID PO Last administered on 09/13/16 20:27; Admin Dose 100 MG; Start 09/06/16 at 21:00 Bisacodyl (Dulcolax) 5 mg DAILY PRN PO CONSTIPATION Last administered on 16:28; Admin Dose 5 MG; Start 09/06/16 at 16:00 Pantoprazole (Protonix Tab) 40 mg DAILY@06 PO Last administered on 09/13/16 06 :06; Admin Dose 40 MG; Start 09/07/16 at 06:00 Atorvastatin Calcium (Lipitor) 20 mg QHS PO Last administered on 09/13/16 20: 26; Admin Dose 20 MG; Start 09/08/16 at 21:00 Docusate Sodium (Colace) 100 mg BID PRN PO CONSTIPATION; Start 09/08/16 at 13: 00 Escitalopram Oxalate (Lexapro) 10 mg DAILY PO Last administered on 09/13/16 08 :05; Admin Dose 10 MG; Start 09/09/16 at 09:00 Senna (Senokot) 1 tab Q12H PRN PO CONSTIPATION; Start 09/08/16 at 13:00 Trazodone HCl (Desyrel) 50 mg QHS PO Last administered on 09/13/16 20:26; Admin Dose 50 MG; Start 09/08/16 at 21:00 Voriconazole (Vfend) 100 mg BID PO Last administered on 09/13/16 20:27; Admin Dose 100 MG; Start 09/11/16 at 09:00 Filgrastim (Neupogen) 300 mcg DAILY@17 SC Last administered on 09/13/16 17:29 ; Admin Dose 300 MCG; Start 09/12/16 at 18:00 Aspirin (Halfprin) 81 mg DAILY PO ; Start 09/14/16 at 09:00 MARIAA ÁLVAREZ Sep 14, 2016 12:03
--- NOTE | 2016-09-14 13:20 | CONS ---
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 Management d/w pt and MARIA ELENA Kwok Above d/w Dr. Fraga Problems: Consultation Date/Type/Reason Admit Date/Time Sep 01, 2016 at 14:47 Initial Consult Date 09/01/16 Type of Consultation: Infectious Disease Referring Provider: MARYAM FARMER MD 24 HR Interval Summary Free Text/Dictation Going for Video Swallow today per MARIA ELENA Kwok. States "I cannot breath without the oxygen". Still has DYKES, intermittent cough and generalized body aches. No n/v/d, dysuria. Exam/Review of Systems Vital Signs Vitals Vital Signs Date Time Temp Pulse Resp B/P Pulse Ox O2 Delivery O2 Flow Rate FiO2 09/14/16 09:00 Nasal Cannula 2.0 09/14/16 07:44 98.7 94 20 106/66 90 Intake and Output 09/13/16 09/13/16 09/14/16 15:00 23:00 07:00 Intake Total 800 ml 120 ml Balance 800 ml 120 ml Exam Constitutional: alert, obese, oriented, well developed Head: atraumatic, normocephalic Neck: supple, non-tender Respiratory: congested cough, diminished breath sounds (RUL), On O2 @ 2L Cardiovascular: nl pulses, regular rate and rhythm Gastrointestinal: non-tender, soft Musculoskeletal: nl extremities to inspection Extremities: No clubbing, No cyanosis, No edema Neurological: nl mental status Skin: nl turgor, other (ecchymosis noted to BUE posteriorly) No rash or lesions Results Result Diagram: 09/14/16 0515 09/14/16 0525 Results 24 hrs Laboratory Tests Test 09/14/16 05:15 09/14/16 05:25 White Blood Count 3.2 #L Red Blood Count 3.05 L Hemoglobin 9.4 L Hematocrit 30.6 L Mean Corpuscular Volume 100.3 Mean Corpuscular Hemoglobin 30.8 Mean Corpuscular Hemoglobin Concent 30.7 L Red Cell Distribution Width 15.3 H Platelet Count 90 L Mean Platelet Volume 10.7 H Neutrophils % 57.8 Lymphocytes % 21.8 Monocytes % 13.2 H Eosinophils % 6.0 Basophils % 0.3 Nucleated Red Blood Cells % 0.0 Neutrophils # 1.8 Lymphocytes # 0.7 L Monocytes # 0.4 Eosinophils # 0.2 Basophils # 0.0 Nucleated Red Blood Cells # 0.0 Sodium Level 139 Potassium Level 3.8 Chloride Level 96 L Carbon Dioxide Level 35 H Anion Gap 12 Blood Urea Nitrogen 19 Creatinine 1.01 Glucose Level 94 Calcium Level 8.6 Medications Medications Current Medications IV Flush (NS 10 ml) 10 ml PRN PRN IV IV PROTOCOL; Start 08/31/16 at 18:30 Metoprolol Tartrate (Lopressor) 5 mg Q4H PRN IV ELEVATED HEART RATE Last administered on 09/02/16 17:09; Admin Dose 5 MG; Start 09/02/16 at 17:30 Morphine Sulfate (morphine) 4 mg Q3 PRN IV PAIN Last administered on 09/14/16 10:34; Admin Dose 4 MG; Start 09/05/16 at 17:00 Morphine Sulfate (Ms Contin (Er)) 30 mg BID PO Last administered on 09/13/16 20:27; Admin Dose 30 MG; Start 09/05/16 at 21:00 Docusate Sodium (Colace) 100 mg TID PO Last administered on 09/13/16 20:27; Admin Dose 100 MG; Start 09/06/16 at 21:00 Bisacodyl (Dulcolax) 5 mg DAILY PRN PO CONSTIPATION Last administered on 16:28; Admin Dose 5 MG; Start 09/06/16 at 16:00 Pantoprazole (Protonix Tab) 40 mg DAILY@06 PO Last administered on 09/13/16 06 :06; Admin Dose 40 MG; Start 09/07/16 at 06:00 Atorvastatin Calcium (Lipitor) 20 mg QHS PO Last administered on 09/13/16 20: 26; Admin Dose 20 MG; Start 09/08/16 at 21:00 Docusate Sodium (Colace) 100 mg BID PRN PO CONSTIPATION; Start 09/08/16 at 13: 00 Escitalopram Oxalate (Lexapro) 10 mg DAILY PO Last administered on 09/13/16 08 :05; Admin Dose 10 MG; Start 09/09/16 at 09:00 Senna (Senokot) 1 tab Q12H PRN PO CONSTIPATION; Start 09/08/16 at 13:00 Trazodone HCl (Desyrel) 50 mg QHS PO Last administered on 09/13/16 20:26; Admin Dose 50 MG; Start 09/08/16 at 21:00 Voriconazole (Vfend) 100 mg BID PO Last administered on 09/13/16 20:27; Admin Dose 100 MG; Start 09/11/16 at 09:00 Filgrastim (Neupogen) 300 mcg DAILY@17 SC Last administered on 09/13/16 17:29 ; Admin Dose 300 MCG; Start 09/12/16 at 18:00 Aspirin (Halfprin) 81 mg DAILY PO ; Start 09/14/16 at 09:00 Procedures Procedures CXR 09/13/16: 1. Stable position of left PICC. 2. Stable elevation of the right hemidiaphragm with associated atelectasis. Stable right upper lobe consolidation.. STEPHEN LOVE NP Sep 14, 2016 13:16
--- NOTE | 2016-09-14 15:43 | RADRPT ---
PROCEDURE: Video swallow examination of the esophagus CLINICAL INDICATION: aspiration TECHNIQUE: Real time video fluoroscopy of the lateral neck was performed. The patient was given b arium in multiple different consistencies by the speech pathologist. Fluoroscopy time: 2.2 minutes COMPARISON: None. FINDINGS: Mild laryngeal penetration is identified with thin liquids without evidence of aspiration. IMPRESSION: Mild laryngeal penetration without evidence of aspiration. Please refer to the speech pathology notes for more information and recommendations. RPTAT: KK Physician Sofia Date Time Electronically viewed and signed by Physician Sofia on 09/14/2016 15:43 RA/
[2016-09-14] MEDS: FILGRASTIM 300 MCG INJ SC SCH (17:26)
--- NOTE | 2016-09-14 17:51 | CONS ---
Date/Time of Note Date/Time of Note DATE: 09/14/16 TIME: 17:50 Assessment/Plan Assessment/Plan Chief Complaint/Hosp Course metastatic lung CANCER, NSCLC - ON CHEMO PANCYTOPENIA POST CHEMO LEUKOPENIA- POST CHEMO NEUPOGEN Hypoxemic respiratory failure, possibly secondary to a reaction to chemotherapy. History of coronary artery disease. chronic obstructive pulmonary disease- EXACERBATION CHECK CXR CHECK BNP PULM F-UP PLAN: Continue broad-spectrum antibiotics, currently on Voriconazole, meropenem and vancomycin.- PER ID - continue meropenem (09/01/16-) to complete 7-8 day course for possible HCAP - continue IV voriconazole 200mg q12 hrs. - f/u respiratory panel by [facility] (negative), mycoplasma by [facility] (pending), 1,3- [id number] (negative), cocci serology (negative), aspergillus antigen and antibody (not detected). - Records from [facility] were reviewed (concern for necrotizing aspergillus but unable to do biopsy) - DC droplet precautions Deep venous thrombosis and gastrointestinal prophylaxis. chemo on hold Problems: Consultation Date/Type/Reason Admit Date/Time Sep 01, 2016 at 14:47 Initial Consult Date 09/01/16 Type of Consultation: hemeon Referring Provider: MARYAM FARMER MD 24 HR Interval Summary Free Text/Dictation Going for Video Swallow today Still has DYKES, intermittent cough and generalized body aches. No n/v/d, dysuria. Exam/Review of Systems Vital Signs Vitals Vital Signs Date Time Temp Pulse Resp B/P Pulse Ox O2 Delivery O2 Flow Rate FiO2 09/14/16 09:00 Nasal Cannula 2.0 09/14/16 07:44 98.7 94 20 106/66 90 Intake and Output 09/13/16 09/13/16 09/14/16 15:00 23:00 07:00 Intake Total 800 ml 120 ml Balance 800 ml 120 ml Exam Constitutional: alert, obese, oriented, well developed Head: atraumatic, normocephalic Neck: supple, non-tender Respiratory: congested cough, diminished breath sounds (RUL), On O2 @ 2L Cardiovascular: nl pulses, regular rate and rhythm Gastrointestinal: non-tender, soft Musculoskeletal: nl extremities to inspection Extremities: No clubbing, No cyanosis, No edema Neurological: nl mental status Skin: nl turgor, other (ecchymosis noted to BUE posteriorly) No rash or lesions Results Result Diagram: 09/14/16 0515 09/14/16 0525 Results 24 hrs Laboratory Tests Test 09/14/16 05:15 09/14/16 05:25 White Blood Count 3.2 #L Red Blood Count 3.05 L Hemoglobin 9.4 L Hematocrit 30.6 L Mean Corpuscular Volume 100.3 Mean Corpuscular Hemoglobin 30.8 Mean Corpuscular Hemoglobin Concent 30.7 L Red Cell Distribution Width 15.3 H Platelet Count 90 L Mean Platelet Volume 10.7 H Neutrophils % 57.8 Lymphocytes % 21.8 Monocytes % 13.2 H Eosinophils % 6.0 Basophils % 0.3 Nucleated Red Blood Cells % 0.0 Neutrophils # 1.8 Lymphocytes # 0.7 L Monocytes # 0.4 Eosinophils # 0.2 Basophils # 0.0 Nucleated Red Blood Cells # 0.0 Sodium Level 139 Potassium Level 3.8 Chloride Level 96 L Carbon Dioxide Level 35 H Anion Gap 12 Blood Urea Nitrogen 19 Creatinine 1.01 Glucose Level 94 Calcium Level 8.6 Medications Medications Current Medications IV Flush (NS 10 ml) 10 ml PRN PRN IV IV PROTOCOL; Start 08/31/16 at 18:30 Metoprolol Tartrate (Lopressor) 5 mg Q4H PRN IV ELEVATED HEART RATE Last administered on 09/02/16 17:09; Admin Dose 5 MG; Start 09/02/16 at 17:30 Morphine Sulfate (morphine) 4 mg Q3 PRN IV PAIN Last administered on 09/14/16 16:00; Admin Dose 4 MG; Start 09/05/16 at 17:00 Morphine Sulfate (Ms Contin (Er)) 30 mg BID PO Last administered on 09/13/16 20:27; Admin Dose 30 MG; Start 09/05/16 at 21:00 Docusate Sodium (Colace) 100 mg TID PO Last administered on 09/13/16 20:27; Admin Dose 100 MG; Start 09/06/16 at 21:00 Bisacodyl (Dulcolax) 5 mg DAILY PRN PO CONSTIPATION Last administered on 16:28; Admin Dose 5 MG; Start 09/06/16 at 16:00 Pantoprazole (Protonix Tab) 40 mg DAILY@06 PO Last administered on 09/13/16 06 :06; Admin Dose 40 MG; Start 09/07/16 at 06:00 Atorvastatin Calcium (Lipitor) 20 mg QHS PO Last administered on 09/13/16 20: 26; Admin Dose 20 MG; Start 09/08/16 at 21:00 Docusate Sodium (Colace) 100 mg BID PRN PO CONSTIPATION; Start 09/08/16 at 13: 00 Escitalopram Oxalate (Lexapro) 10 mg DAILY PO Last administered on 09/13/16 08 :05; Admin Dose 10 MG; Start 09/09/16 at 09:00 Senna (Senokot) 1 tab Q12H PRN PO CONSTIPATION; Start 09/08/16 at 13:00 Trazodone HCl (Desyrel) 50 mg QHS PO Last administered on 09/13/16 20:26; Admin Dose 50 MG; Start 09/08/16 at 21:00 Voriconazole (Vfend) 100 mg BID PO Last administered on 09/13/16 20:27; Admin Dose 100 MG; Start 09/11/16 at 09:00 Filgrastim (Neupogen) 300 mcg DAILY@17 SC Last administered on 09/14/16 17:26 ; Admin Dose 300 MCG; Start 09/12/16 at 18:00 Aspirin (Halfprin) 81 mg DAILY PO ; Start 09/14/16 at 09:00 DAHIANA BABCOCK MD Sep 14, 2016 17:51
[2016-09-14 20:28] VITALS: BP 112/68; RESP 18
[2016-09-14] MEDS: ATORVASTATIN 20 MG TAB PO SCH (20:45)
[2016-09-14] MEDS: traZODone 50 MG TAB PO SCH (23:21)
[2016-09-15] MEDS: morphine 4 MG/ML VIAL IV PRN ×6 (05:13→23:43)
[2016-09-15] MEDS: LEVOTHYROXINE 50 MCG TAB PO SCH (06:03)
[2016-09-15] MEDS: PANTOPRAZOLE (EC) 40 MG TAB PO SCH (06:03)
[2016-09-15 06:06] LABS: ADD SCAN DIFF NO
[2016-09-15 06:58] LABS: CREATININE 0.97 mg/dl (0.61-1.24)
[2016-09-15 06:59] LABS: CALCIUM 8.9 mg/dl (8.4-10.2)
[2016-09-15 08:00] VITALS: BP 124/76; RESP 24
[2016-09-15] MEDS: ASPIRIN (EC) 81 MG TAB PO SCH (08:45)
[2016-09-15] MEDS: DOCUSATE SODIUM 100 MG CAP PO SCH ×3 (08:45→20:59)
[2016-09-15] MEDS: morphine (ER) 30 MG TAB PO SCH ×2 (08:46→20:59)
[2016-09-15] MEDS: VORICONAZOLE 200 MG TAB PO SCH ×2 (08:46→20:59)
[2016-09-15] MEDS: ESCITALOPRAM 10 MG TAB PO SCH (08:46)
[2016-09-15] MEDS: ALBUTEROL/IPRATROPIUM (NEB) 3 ML AMP HHN SCH ×3 (10:31→19:59)
--- NOTE | 2016-09-15 11:15 | CONS ---
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 Management d/w Pt and MARIA ELENA Mckoy Above d/w Dr. Fraga Problems: Consultation Date/Type/Reason Admit Date/Time Sep 01, 2016 at 14:47 Initial Consult Date 09/01/16 Type of Consultation: Infectious Disease Referring Provider: MARYAM FARMER MD 24 HR Interval Summary Free Text/Dictation Passed video swallow yesterday. No acute issues per MARIA ELENA Mckoy. States SOB/DYKES is unchanged. Generalized body aches "slightly better". No n/v/d, dysuria. Exam/Review of Systems Vital Signs Vitals Vital Signs Date Time Temp Pulse Resp B/P Pulse Ox O2 Delivery O2 Flow Rate FiO2 09/15/16 10:20 101 22 94 Nasal Cannula 2.0 09/15/16 08:00 98.5 124/76 Intake and Output 09/14/16 09/14/16 09/15/16 15:00 23:00 07:00 Intake Total 480 ml 600 ml Balance 480 ml 600 ml Exam Constitutional: alert, obese, oriented, well developed Head: atraumatic, normocephalic Neck: supple, non-tender Respiratory: congested cough, diminished breath sounds (RUL), On O2 @ 2L Cardiovascular: nl pulses, regular rate and rhythm Gastrointestinal: non-tender, soft Musculoskeletal: nl extremities to inspection Extremities: No clubbing, No cyanosis, No edema, other (LUE PICC c/d/i) Neurological: nl mental status Skin: nl turgor, other (ecchymosis noted to BUE posteriorly) No rash or lesions Results Result Diagram: 09/14/16 0515 09/15/16 0513 Results 24 hrs Laboratory Tests Test 09/15/16 05:13 Sodium Level 139 Potassium Level 4.0 Chloride Level 98 Carbon Dioxide Level 32 H Anion Gap 13 Blood Urea Nitrogen 22 H Creatinine 0.97 Glucose Level 83 Calcium Level 8.9 Medications Medications Current Medications IV Flush (NS 10 ml) 10 ml PRN PRN IV IV PROTOCOL; Start 08/31/16 at 18:30 Metoprolol Tartrate (Lopressor) 5 mg Q4H PRN IV ELEVATED HEART RATE Last administered on 09/02/16 17:09; Admin Dose 5 MG; Start 09/02/16 at 17:30 Morphine Sulfate (morphine) 4 mg Q3 PRN IV PAIN Last administered on 09/15/16 08:45; Admin Dose 4 MG; Start 09/05/16 at 17:00 Morphine Sulfate (Ms Contin (Er)) 30 mg BID PO Last administered on 09/15/16 08:46; Admin Dose 30 MG; Start 09/05/16 at 21:00 Docusate Sodium (Colace) 100 mg TID PO Last administered on 09/15/16 08:45; Admin Dose 100 MG; Start 09/06/16 at 21:00 Bisacodyl (Dulcolax) 5 mg DAILY PRN PO CONSTIPATION Last administered on 16:28; Admin Dose 5 MG; Start 09/06/16 at 16:00 Pantoprazole (Protonix Tab) 40 mg DAILY@06 PO Last administered on 09/15/16 06 :03; Admin Dose 40 MG; Start 09/07/16 at 06:00 Atorvastatin Calcium (Lipitor) 20 mg QHS PO Last administered on 09/14/16 20: 45; Admin Dose 20 MG; Start 09/08/16 at 21:00 Docusate Sodium (Colace) 100 mg BID PRN PO CONSTIPATION; Start 09/08/16 at 13: 00 Escitalopram Oxalate (Lexapro) 10 mg DAILY PO Last administered on 09/15/16 08 :46; Admin Dose 10 MG; Start 09/09/16 at 09:00 Senna (Senokot) 1 tab Q12H PRN PO CONSTIPATION; Start 09/08/16 at 13:00 Trazodone HCl (Desyrel) 50 mg QHS PO Last administered on 09/14/16 23:21; Admin Dose 50 MG; Start 09/08/16 at 21:00 Voriconazole (Vfend) 100 mg BID PO Last administered on 09/15/16 08:46; Admin Dose 100 MG; Start 09/11/16 at 09:00 Filgrastim (Neupogen) 300 mcg DAILY@17 SC Last administered on 09/14/16 17:26 ; Admin Dose 300 MCG; Start 09/12/16 at 18:00 Aspirin (Halfprin) 81 mg DAILY PO Last administered on 09/15/16 08:45; Admin Dose 81 MG; Start 09/14/16 at 09:00 Procedures Procedures CXR 09/13/16: 1. Stable position of left PICC. 2. Stable elevation of the right hemidiaphragm with associated atelectasis. Stable right upper lobe consolidation.. STEPHEN LOVE NP Sep 15, 2016 11:15
[2016-09-15 13:04] LABS: ABNORMAL IP MESSAGE 1; BASOPHILS % 0.2 % (0.0-2.0); EOSINOPHILS # 0.2 10^3/ul (0.0-0.5); EOSINOPHILS % 3.5 % (0.0-7.0); HEMOGLOBIN 9.5 g/dl (14.0-18.0); LYMPHOCYTES # 1.1 10^3/ul (0.8-2.9); LYMPHOCYTES % 20.3 % (15.0-51.0); MEAN CORPUSCULAR HGB CONC 30.6 g/dl (32.0-37.0); MEAN CORPUSCULAR VOLUME 101.3 fl (82.0-101.0); MEAN PLATELET VOLUME 11.1 fl (7.4-10.4); MONOCYTE # 0.6 10^3/ul (0.3-0.9); MONOCYTES % 11.1 % (0.0-11.0); NEUTROPHIL # 3.5 10^3/ul (1.6-7.5); NEUTROPHILS % 63.3 % (39.0-77.0); PLATELET COUNT 104 10^3/UL (140-415); RED BLOOD COUNT 3.06 10^6/ul (4.70-6.10); RED CELL DISTRIBUTION WIDTH 15.6 % (11.5-14.5); WHITE BLOOD COUNT 5.5 10^3/ul (4.8-10.8)
--- NOTE | 2016-09-15 14:12 | CONS ---
Date/Time of Note Date/Time of Note DATE: 09/15/16 TIME: 14:09 Assessment/Plan Assessment/Plan Chief Complaint/Hosp Course IMPRESSION: 1. Cardiac arrhythmia, with currently rhythm most consistent with sinus tachycardia, but also having pauses. Negative troponin x 3/TSH elevated-no recurrence/reasonable HR control 2. Abnormal electrocardiogram. trop negative x3/NL EF by echo this admit 3. Hypertension, labile. 4. Dyslipidemia. 5. Pneumonia and bronchitis. 6. Lung cancer. 7. Hypothyroidism. 8. Anemia. 9. Thrombocytopenia, severe. 10. Prior hemoptysis. 11.BNP-elevated 12.PNA Recc: -Now med-surg -Continue statin/asa -Contine voriconazole -Follow volume status closely with spot dosing of lasix as necessary -Onc following Problems: Consultation Date/Type/Reason Admit Date/Time Sep 01, 2016 at 14:47 Initial Consult Date 09/01/16 Type of Consultation: Cardiology Reason for Consultation cardiac arrythmia Referring Provider: MARYAM FARMER MD Exam/Review of Systems Vital Signs Vitals Vital Signs Date Time Temp Pulse Resp B/P Pulse Ox O2 Delivery O2 Flow Rate FiO2 09/15/16 10:20 101 22 94 Nasal Cannula 2.0 09/15/16 08:00 98.5 124/76 Intake and Output 09/14/16 09/14/16 09/15/16 15:00 23:00 07:00 Intake Total 480 ml 600 ml Balance 480 ml 600 ml Exam Review of Systems: CONSTITUTIONAL: No fevers, chills. PULMONARY: moderate sob CARDIOVASCULAR: No chest pain/palpitations GASTROINTESTINAL: No nausea/vomiting. GENITOURINARY: No hematuria/dysuria. MUSCULOSKELETAL: No myagias/arthalgias. PSYCHIATRIC: The patient denies depression. NEUROLOGIC: No weakness Psych: no complaints Head: normocephalic ENMT: mucosa pink and moist Neck: jvd, supple Respiratory: diminished breath sounds (at bases R>L) Cardiovascular: regular rate and rhythm Gastrointestinal: non-tender, soft Musculoskeletal: muscle tone (normal) Extremities: edema (trace/B) Neurological: other (No focal deficits) Results Result Diagram: 09/15/16 0513 09/15/16 0513 Results 24 hrs Laboratory Tests Test 09/15/16 05:13 White Blood Count 5.5 # Red Blood Count 3.06 L Hemoglobin 9.5 L Hematocrit 31.0 L Mean Corpuscular Volume 101.3 H Mean Corpuscular Hemoglobin 31.0 Mean Corpuscular Hemoglobin Concent 30.6 L Red Cell Distribution Width 15.6 H Platelet Count 104 L Mean Platelet Volume 11.1 H Neutrophils % 63.3 Lymphocytes % 20.3 Monocytes % 11.1 H Eosinophils % 3.5 Basophils % 0.2 Nucleated Red Blood Cells % 0.0 Neutrophils # 3.5 Lymphocytes # 1.1 Monocytes # 0.6 Eosinophils # 0.2 Basophils # 0.0 Nucleated Red Blood Cells # 0.0 Sodium Level 139 Potassium Level 4.0 Chloride Level 98 Carbon Dioxide Level 32 H Anion Gap 13 Blood Urea Nitrogen 22 H Creatinine 0.97 Glucose Level 83 Calcium Level 8.9 Medications Medications Current Medications IV Flush (NS 10 ml) 10 ml PRN PRN IV IV PROTOCOL; Start 08/31/16 at 18:30 Metoprolol Tartrate (Lopressor) 5 mg Q4H PRN IV ELEVATED HEART RATE Last administered on 09/02/16 17:09; Admin Dose 5 MG; Start 09/02/16 at 17:30 Morphine Sulfate (morphine) 4 mg Q3 PRN IV PAIN Last administered on 09/15/16 12:33; Admin Dose 4 MG; Start 09/05/16 at 17:00 Morphine Sulfate (Ms Contin (Er)) 30 mg BID PO Last administered on 09/15/16 08:46; Admin Dose 30 MG; Start 09/05/16 at 21:00 Docusate Sodium (Colace) 100 mg TID PO Last administered on 09/15/16 12:32; Admin Dose 100 MG; Start 09/06/16 at 21:00 Bisacodyl (Dulcolax) 5 mg DAILY PRN PO CONSTIPATION Last administered on 16:28; Admin Dose 5 MG; Start 09/06/16 at 16:00 Pantoprazole (Protonix Tab) 40 mg DAILY@06 PO Last administered on 09/15/16 06 :03; Admin Dose 40 MG; Start 09/07/16 at 06:00 Atorvastatin Calcium (Lipitor) 20 mg QHS PO Last administered on 09/14/16 20: 45; Admin Dose 20 MG; Start 09/08/16 at 21:00 Docusate Sodium (Colace) 100 mg BID PRN PO CONSTIPATION; Start 09/08/16 at 13: 00 Escitalopram Oxalate (Lexapro) 10 mg DAILY PO Last administered on 09/15/16 08 :46; Admin Dose 10 MG; Start 09/09/16 at 09:00 Senna (Senokot) 1 tab Q12H PRN PO CONSTIPATION; Start 09/08/16 at 13:00 Trazodone HCl (Desyrel) 50 mg QHS PO Last administered on 09/14/16 23:21; Admin Dose 50 MG; Start 09/08/16 at 21:00 Voriconazole (Vfend) 100 mg BID PO Last administered on 09/15/16 08:46; Admin Dose 100 MG; Start 09/11/16 at 09:00 Filgrastim (Neupogen) 300 mcg DAILY@17 SC Last administered on 09/14/16 17:26 ; Admin Dose 300 MCG; Start 09/12/16 at 18:00 Aspirin (Halfprin) 81 mg DAILY PO Last administered on 09/15/16 08:45; Admin Dose 81 MG; Start 09/14/16 at 09:00 MARIAA ÁLVAREZ Sep 15, 2016 14:12
[2016-09-15] MEDS: FILGRASTIM 300 MCG INJ SC SCH (17:11)
--- NOTE | 2016-09-15 17:18 | PN ---
Date/Time of Note Date/Time of Note DATE: 09/15/16 TIME: 17:17 Assessment/Plan VTE Prophylaxis VTE Prophylaxis Intervention: SCD's Lines/Catheters [facility] PICC Line Central line still needed: Yes Assessment/Plan Chief Complaint/Hosp Course Assessment/Plan - S/p severe sepsis due to pneumonia/bronchitis, Dr. Fraag group is following infection disease consultation. - Advanced non-small cell lung CA, on biweekly chemotherapy infusion x2 years, Dr. Scanlon is following in oncology consultation. - Acute respiratory failure, resolving. Dr. Castanon is following in pulmonology consultation. - Pancytopenia due to chemotherapy -Acute on chronic diastolic congestive heart failure, continue gentle diuresis, continue to monitor electrolytes. -Cardiac arrhythmia, Dr. Gaytan is following in cardiology consultation. 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 Further recommendations based on clinical course. Plan of care discussed with Dr. Lincoln. Problems: Subjective 24 Hr Interval Summary Free Text/Dictation Patient's complains of shortness of breath at rest sometimes and on exertion, continue breathing treatments. Exam/Review of Systems Vital Signs Vitals Vital Signs Date Time Temp Pulse Resp B/P Pulse Ox O2 Delivery O2 Flow Rate FiO2 09/15/16 15:50 2.0 09/15/16 15:50 96 20 95 Nasal Cannula 09/15/16 08:00 98.5 124/76 Intake and Output 09/14/16 09/14/16 09/15/16 15:00 23:00 07:00 Intake Total 480 ml 600 ml Balance 480 ml 600 ml Exam Constitutional: alert, oriented Psych: nl mood/affect, no complaints Head: atraumatic, normocephalic Eyes: nl conjunctiva ENMT: nl external ears & nose Neck: non-tender, supple Respiratory: diminished breath sounds, wheezing Cardiovascular: nl pulses, regular rate and rhythm Gastrointestinal: non-tender, soft Musculoskeletal: nl extremities to inspection Extremities: normal pulses Neurological: [employer] POCKETS AND PIECES II-XII intact Results Result Diagram: 09/15/16 0513 09/15/16512 Results 24 hrs Laboratory Tests Test 09/15/16 05:13 White Blood Count 5.5 # Red Blood Count 3.06 L Hemoglobin 9.5 L Hematocrit 31.0 L Mean Corpuscular Volume 101.3 H Mean Corpuscular Hemoglobin 31.0 Mean Corpuscular Hemoglobin Concent 30.6 L Red Cell Distribution Width 15.6 H Platelet Count 104 L Mean Platelet Volume 11.1 H Neutrophils % 63.3 Lymphocytes % 20.3 Monocytes % 11.1 H Eosinophils % 3.5 Basophils % 0.2 Nucleated Red Blood Cells % 0.0 Neutrophils # 3.5 Lymphocytes # 1.1 Monocytes # 0.6 Eosinophils # 0.2 Basophils # 0.0 Nucleated Red Blood Cells # 0.0 Sodium Level 139 Potassium Level 4.0 Chloride Level 98 Carbon Dioxide Level 32 H Anion Gap 13 Blood Urea Nitrogen 22 H Creatinine 0.97 Glucose Level 83 Calcium Level 8.9 Medications Medications Current Medications IV Flush (NS 10 ml) 10 ml PRN PRN IV IV PROTOCOL; Start 08/31/16 at 18:30 Metoprolol Tartrate (Lopressor) 5 mg Q4H PRN IV ELEVATED HEART RATE Last administered on 09/02/16 17:09; Admin Dose 5 MG; Start 09/02/16 at 17:30 Morphine Sulfate (morphine) 4 mg Q3 PRN IV PAIN Last administered on 09/15/16 16:09; Admin Dose 4 MG; Start 09/05/16 at 17:00 Morphine Sulfate (Ms Contin (Er)) 30 mg BID PO Last administered on 09/15/16 08:46; Admin Dose 30 MG; Start 09/05/16 at 21:00 Docusate Sodium (Colace) 100 mg TID PO Last administered on 09/15/16 12:32; Admin Dose 100 MG; Start 09/06/16 at 21:00 Bisacodyl (Dulcolax) 5 mg DAILY PRN PO CONSTIPATION Last administered on 16:28; Admin Dose 5 MG; Start 09/06/16 at 16:00 Pantoprazole (Protonix Tab) 40 mg DAILY@06 PO Last administered on 09/15/16 06 :03; Admin Dose 40 MG; Start 09/07/16 at 06:00 Atorvastatin Calcium (Lipitor) 20 mg QHS PO Last administered on 09/14/16 20: 45; Admin Dose 20 MG; Start 09/08/16 at 21:00 Docusate Sodium (Colace) 100 mg BID PRN PO CONSTIPATION; Start 09/08/16 at 13: 00 Escitalopram Oxalate (Lexapro) 10 mg DAILY PO Last administered on 09/15/16 08 :46; Admin Dose 10 MG; Start 09/09/16 at 09:00 Senna (Senokot) 1 tab Q12H PRN PO CONSTIPATION; Start 09/08/16 at 13:00 Trazodone HCl (Desyrel) 50 mg QHS PO Last administered on 09/14/16 23:21; Admin Dose 50 MG; Start 09/08/16 at 21:00 Voriconazole (Vfend) 100 mg BID PO Last administered on 09/15/16 08:46; Admin Dose 100 MG; Start 09/11/16 at 09:00 Filgrastim (Neupogen) 300 mcg DAILY@17 SC Last administered on 09/15/16 17:11 ; Admin Dose 300 MCG; Start 09/12/16 at 18:00 Aspirin (Halfprin) 81 mg DAILY PO Last administered on 09/15/16 08:45; Admin Dose 81 MG; Start 09/14/16 at 09:00 LUBA EARLY Sep 15, 2016 17:18
[2016-09-15 20:10] VITALS: BP 110/69; RESP 18
[2016-09-15] MEDS: ATORVASTATIN 20 MG TAB PO SCH (20:59)
[2016-09-15] MEDS: traZODone 50 MG TAB PO SCH (23:42)
[2016-09-16] MEDS: ALBUTEROL/IPRATROPIUM (NEB) 3 ML AMP HHN SCH ×4 (02:00→19:32)
[2016-09-16] MEDS: morphine 4 MG/ML VIAL IV PRN ×6 (05:36→23:10)
[2016-09-16] MEDS: PANTOPRAZOLE (EC) 40 MG TAB PO SCH (05:36)
[2016-09-16] MEDS: LEVOTHYROXINE 50 MCG TAB PO SCH (06:11)
[2016-09-16 06:27] LABS: ADD SCAN DIFF NO
[2016-09-16 06:33] LABS: ABNORMAL IP MESSAGE 1; BASOPHILS % 0.3 % (0.0-2.0); EOSINOPHILS # 0.2 10^3/ul (0.0-0.5); EOSINOPHILS % 3.6 % (0.0-7.0); HEMATOCRIT 31.3 % (42.0-52.0); HEMOGLOBIN 9.6 g/dl (14.0-18.0); LYMPHOCYTES # 1.1 10^3/ul (0.8-2.9); LYMPHOCYTES % 16.4 % (15.0-51.0); MEAN CORPUSCULAR HEMOGLOBIN 31.1 pg (29.0-33.0); MEAN CORPUSCULAR HGB CONC 30.7 g/dl (32.0-37.0); MEAN CORPUSCULAR VOLUME 101.3 fl (82.0-101.0); MEAN PLATELET VOLUME 10.7 fl (7.4-10.4); MONOCYTE # 0.7 10^3/ul (0.3-0.9); MONOCYTES % 10.6 % (0.0-11.0); NEUTROPHIL # 4.6 10^3/ul (1.6-7.5); NEUTROPHILS % 68.2 % (39.0-77.0); PLATELET COUNT 117 10^3/UL (140-415); RED BLOOD COUNT 3.09 10^6/ul (4.70-6.10); RED CELL DISTRIBUTION WIDTH 15.8 % (11.5-14.5); WHITE BLOOD COUNT 6.7 10^3/ul (4.8-10.8)
[2016-09-16 06:57] LABS: CALCIUM 8.8 mg/dl (8.4-10.2); CREATININE 0.95 mg/dl (0.61-1.24); POTASSIUM 4.1 mmol/L (3.5-5.1)
[2016-09-16 07:32] VITALS: BP 117/62; RESP 20
[2016-09-16] MEDS: ASPIRIN (EC) 81 MG TAB PO SCH (08:52)
[2016-09-16] MEDS: morphine (ER) 30 MG TAB PO SCH ×2 (08:52→20:58)
[2016-09-16] MEDS: DOCUSATE SODIUM 100 MG CAP PO SCH ×3 (08:52→20:50)
[2016-09-16] MEDS: VORICONAZOLE 200 MG TAB PO SCH ×2 (08:52→20:50)
[2016-09-16] MEDS: ESCITALOPRAM 10 MG TAB PO SCH (08:52)
--- NOTE | 2016-09-16 09:28 | CONS ---
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), on maintenance voriconazole - h/o post-obstructive pneumonia - h/o HTN, CAD, hyperlipidemia - h/o paroxysmal A fib - h/o DVT in LUE - hypothyroidism with elevated TSH level - hypomagnesemia - HIV negative in 2013 - tachycardia - improving Recommendations: - Continue pt's usual dose of PO voriconazole 100 mg bid; His ID specialist recommended that he take this for 6 months since 03/2016 Problems: Consultation Date/Type/Reason Admit Date/Time Sep 01, 2016 at 14:47 Initial Consult Date 09/01/16 Type of Consultation: id Referring Provider: MARYAM FARMER MD Exam/Review of Systems Vital Signs Vitals Vital Signs Date Time Temp Pulse Resp B/P Pulse Ox O2 Delivery O2 Flow Rate FiO2 09/16/16 07:38 Nasal Cannula 2.0 09/16/16 07:32 98.2 86 20 117/62 96 Intake and Output 09/15/16 09/15/16 09/16/16 14:59 22:59 06:59 Intake Total 1640 ml Balance 1640 ml Results Result Diagram: 09/16/16 0545 09/16/16 0545 Results 24 hrs Laboratory Tests Test 09/16/16 05:45 White Blood Count 6.7 # Red Blood Count 3.09 L Hemoglobin 9.6 L Hematocrit 31.3 L Mean Corpuscular Volume 101.3 H Mean Corpuscular Hemoglobin 31.1 Mean Corpuscular Hemoglobin Concent 30.7 L Red Cell Distribution Width 15.8 H Platelet Count 117 L Mean Platelet Volume 10.7 H Neutrophils % 68.2 Lymphocytes % 16.4 Monocytes % 10.6 Eosinophils % 3.6 Basophils % 0.3 Nucleated Red Blood Cells % 0.0 Neutrophils # 4.6 Lymphocytes # 1.1 Monocytes # 0.7 Eosinophils # 0.2 Basophils # 0.0 Nucleated Red Blood Cells # 0.0 Sodium Level 138 Potassium Level 4.1 Chloride Level 101 Carbon Dioxide Level 35 H Anion Gap 6 L Blood Urea Nitrogen 18 Creatinine 0.95 Glucose Level 91 Calcium Level 8.8 Medications Medications Current Medications IV Flush (NS 10 ml) 10 ml PRN PRN IV IV PROTOCOL; Start 08/31/16 at 18:30 Metoprolol Tartrate (Lopressor) 5 mg Q4H PRN IV ELEVATED HEART RATE Last administered on 09/02/16 17:09; Admin Dose 5 MG; Start 09/02/16 at 17:30; Status Future Hold Morphine Sulfate (morphine) 4 mg Q3 PRN IV PAIN Last administered on 09/16/16 08:53; Admin Dose 4 MG; Start 09/05/16 at 17:00 Morphine Sulfate (Ms Contin (Er)) 30 mg BID PO Last administered on 09/16/16 08:52; Admin Dose 30 MG; Start 09/05/16 at 21:00 Docusate Sodium (Colace) 100 mg TID PO Last administered on 09/16/16 08:52; Admin Dose 100 MG; Start 09/06/16 at 21:00 Bisacodyl (Dulcolax) 5 mg DAILY PRN PO CONSTIPATION Last administered on 16:28; Admin Dose 5 MG; Start 09/06/16 at 16:00 Pantoprazole (Protonix Tab) 40 mg DAILY@06 PO Last administered on 09/16/16 05 :36; Admin Dose 40 MG; Start 09/07/16 at 06:00 Atorvastatin Calcium (Lipitor) 20 mg QHS PO Last administered on 09/15/16 20: 59; Admin Dose 20 MG; Start 09/08/16 at 21:00 Docusate Sodium (Colace) 100 mg BID PRN PO CONSTIPATION; Start 09/08/16 at 13: 00 Escitalopram Oxalate (Lexapro) 10 mg DAILY PO Last administered on 09/16/16 08 :52; Admin Dose 10 MG; Start 09/09/16 at 09:00 Senna (Senokot) 1 tab Q12H PRN PO CONSTIPATION; Start 09/08/16 at 13:00 Trazodone HCl (Desyrel) 50 mg QHS PO Last administered on 09/15/16 23:42; Admin Dose 50 MG; Start 09/08/16 at 21:00 Voriconazole (Vfend) 100 mg BID PO Last administered on 09/16/16 08:52; Admin Dose 100 MG; Start 09/11/16 at 09:00 Filgrastim (Neupogen) 300 mcg DAILY@17 SC Last administered on 09/15/16 17:11 ; Admin Dose 300 MCG; Start 09/12/16 at 18:00 Aspirin (Halfprin) 81 mg DAILY PO Last administered on 09/16/16 08:52; Admin Dose 81 MG; Start 09/14/16 at 09:00 DELIO DIALLO MD Sep 16, 2016 09:28
[2016-09-16] MEDS: ALBUTEROL/IPRATROPIUM (NEB) 3 ML AMP HHN PRN (11:37)
[2016-09-16] MEDS: PROMETHAZINE/CODEINE 5ML CUP PO PRN (12:47)
--- NOTE | 2016-09-16 12:51 | PN ---
Date/Time of Note Date/Time of Note DATE: 09/16/16 TIME: 12:45 Assessment/Plan VTE Prophylaxis VTE Prophylaxis Intervention: other Lines/Catheters IV [facility] Type ([facility] P[facility] Line Assessment/Plan Assessment/Plan - S/p severe sepsis due to pneumonia/bronchitis, Dr. Fraga group is following infection disease consultation. -pneumonia/bronchitis- cough noted - Phenergan with codeine PRN cough - Advanced non-small cell lung CA, on biweekly chemotherapy infusion x2 years, Dr. Scanlon is following in oncology consultation. - Acute respiratory failure, resolving. Dr. Castanon is following in pulmonology consultation. - Pancytopenia due to chemotherapy -Acute on chronic diastolic congestive heart failure, continue gentle diuresis, continue to monitor electrolytes. -Cardiac arrhythmia, Dr. Gaytan is following in cardiology consultation. 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 Further recommendations based on clinical course. Plan of care discussed with Dr. Lincoln. Subjective 24 Hr Interval Summary Free Text/Dictation c/o shortness of breath/ cough- not relieved even after breathing treatment. dw staff. Constitutional: requiring O2 Eyes: no complaints ENT: no complaints Respiratory: cough, shortness of breath Gastrointestinal: no complaints Genitourinary: no complaints Musculoskeletal: no complaints Skin: no complaints Neurologic: no complaints Endocrine: no complaints Lymphatic: no complaints Psychological: no complaints Immunologic: no complaints Exam/Review of Systems Vital Signs Vitals Vital Signs Date Time Temp Pulse Resp B/P Pulse Ox O2 Delivery O2 Flow Rate FiO2 09/16/16 11:37 93 20 Nasal Cannula 2.0 09/16/16 07:32 98.2 117/62 96 Intake and Output 09/15/16 09/15/16 09/16/16 15:00 23:00 07:00 Intake Total 1640 ml Balance 1640 ml Exam Constitutional: alert, oriented, well developed Psych: no complaints Eyes: EOMI, nl sclera ENMT: nl external ears & nose Neck: non-tender Respiratory: diminished breath sounds Cardiovascular: nl pulses Gastrointestinal: non-tender, soft Musculoskeletal: nl extremities to inspection Extremities: normal pulses Neurological: nl mental status, other Skin: nl turgor Lymph: nontender Results Result Diagram: 09/16/16 0545 09/16/16 0545 Results 24 hrs Laboratory Tests Test 09/16/16 05:45 White Blood Count 6.7 # Red Blood Count 3.09 L Hemoglobin 9.6 L Hematocrit 31.3 L Mean Corpuscular Volume 101.3 H Mean Corpuscular Hemoglobin 31.1 Mean Corpuscular Hemoglobin Concent 30.7 L Red Cell Distribution Width 15.8 H Platelet Count 117 L Mean Platelet Volume 10.7 H Neutrophils % 68.2 Lymphocytes % 16.4 Monocytes % 10.6 Eosinophils % 3.6 Basophils % 0.3 Nucleated Red Blood Cells % 0.0 Neutrophils # 4.6 Lymphocytes # 1.1 Monocytes # 0.7 Eosinophils # 0.2 Basophils # 0.0 Nucleated Red Blood Cells # 0.0 Sodium Level 138 Potassium Level 4.1 Chloride Level 101 Carbon Dioxide Level 35 H Anion Gap 6 L Blood Urea Nitrogen 18 Creatinine 0.95 Glucose Level 91 Calcium Level 8.8 Medications Medications Current Medications IV Flush (NS 10 ml) 10 ml PRN PRN IV IV PROTOCOL; Start 08/31/16 at 18:30 Metoprolol Tartrate (Lopressor) 5 mg Q4H PRN IV ELEVATED HEART RATE Last administered on 09/02/16 17:09; Admin Dose 5 MG; Start 09/02/16 at 17:30; Status Future Hold Morphine Sulfate (morphine) 4 mg Q3 PRN IV PAIN Last administered on 09/16/16 12:05; Admin Dose 4 MG; Start 09/05/16 at 17:00 Morphine Sulfate (Ms Contin (Er)) 30 mg BID PO Last administered on 09/16/16 08:52; Admin Dose 30 MG; Start 09/05/16 at 21:00 Docusate Sodium (Colace) 100 mg TID PO Last administered on 09/16/16 08:52; Admin Dose 100 MG; Start 09/06/16 at 21:00 Bisacodyl (Dulcolax) 5 mg DAILY PRN PO CONSTIPATION Last administered on 16:28; Admin Dose 5 MG; Start 09/06/16 at 16:00 Pantoprazole (Protonix Tab) 40 mg DAILY@06 PO Last administered on 09/16/16 05 :36; Admin Dose 40 MG; Start 09/07/16 at 06:00 Atorvastatin Calcium (Lipitor) 20 mg QHS PO Last administered on 09/15/16 20: 59; Admin Dose 20 MG; Start 09/08/16 at 21:00 Docusate Sodium (Colace) 100 mg BID PRN PO CONSTIPATION; Start 09/08/16 at 13: 00 Escitalopram Oxalate (Lexapro) 10 mg DAILY PO Last administered on 09/16/16 08 :52; Admin Dose 10 MG; Start 09/09/16 at 09:00 Senna (Senokot) 1 tab Q12H PRN PO CONSTIPATION; Start 09/08/16 at 13:00 Trazodone HCl (Desyrel) 50 mg QHS PO Last administered on 09/15/16 23:42; Admin Dose 50 MG; Start 09/08/16 at 21:00 Voriconazole (Vfend) 100 mg BID PO Last administered on 09/16/16 08:52; Admin Dose 100 MG; Start 09/11/16 at 09:00 Filgrastim (Neupogen) 300 mcg DAILY@17 SC Last administered on 09/15/16 17:11 ; Admin Dose 300 MCG; Start 09/12/16 at 18:00 Aspirin (Halfprin) 81 mg DAILY PO Last administered on 09/16/16 08:52; Admin Dose 81 MG; Start 09/14/16 at 09:00 Promethazine HCl/ Codeine (Phenergan/ Codeine) 10 ml Q6H PRN PO COUGH; Start at 12:30 TRAMAINE ELLSWORTH Sep 16, 2016 12:51
--- NOTE | 2016-09-16 15:17 | CONS ---
Date/Time of Note Date/Time of Note DATE: 09/16/16 TIME: 15:16 Assessment/Plan Assessment/Plan Additional Assessment/Plan 1. Cardiac arrhythmia, with currently rhythm most consistent with sinus tachycardia, but also having pauses. Negative troponin x 3/TSH elevated - HR better now. - 2. Abnormal electrocardiogram. trop negative x3/NL EF by echo this admit 3. Hypertension, labile- better now, con't to follow 4. Dyslipidemia. 5. Pneumonia and bronchitis- on anti-bx now - much improved 6. Lung cancer. 7. Hypothyroidism. 8. Anemia. 9. Thrombocytopenia, severe. 10. Prior hemoptysis. 11. CHF - acute on chorionic, con't gentle diureses as tolerated Consultation Date/Type/Reason Admit Date/Time Sep 01, 2016 at 14:47 Initial Consult Date 09/01/16 Type of Consultation: id Referring Provider: MARYAM FARMER MD 24 HR Interval Summary Free Text/Dictation Better overall- no CP. No palpations. ROS: No fever, no chills, no nausea, no vomiting, no diarrhea/constipation No recent weight changes No chest pain, no PND, no orthopnea No dizziness, blurred vision No thirst, no heat or cold intolerance Exam/Review of Systems Vital Signs Vitals Vital Signs Date Time Temp Pulse Resp B/P Pulse Ox O2 Delivery O2 Flow Rate FiO2 09/16/16 14:17 97 20 96 Nasal Cannula 2.0 09/16/16 07:32 98.2 117/62 Intake and Output 09/15/16 09/15/16 09/16/16 15:00 23:00 07:00 Intake Total 1640 ml Balance 1640 ml Exam General: WN/WD/NAD, AOx 3 HEENT: Unicetric/atraumatic/EOMI (follow commands) NECK: JVD elevated, no thyromegaly Lymph: no lymphadenopathy HEART: regular with no S3, II/ systolic murmur at apex LUNGS: Coarse sounds ABD: soft, NT, ND, +BS : Intact Neuro: non focal SKIN: chronic changes EXT: trace edema Results Result Diagram: 09/16/16 0545 09/16/16 0545 Results 24 hrs Laboratory Tests Test 09/16/16 05:45 White Blood Count 6.7 # Red Blood Count 3.09 L Hemoglobin 9.6 L Hematocrit 31.3 L Mean Corpuscular Volume 101.3 H Mean Corpuscular Hemoglobin 31.1 Mean Corpuscular Hemoglobin Concent 30.7 L Red Cell Distribution Width 15.8 H Platelet Count 117 L Mean Platelet Volume 10.7 H Neutrophils % 68.2 Lymphocytes % 16.4 Monocytes % 10.6 Eosinophils % 3.6 Basophils % 0.3 Nucleated Red Blood Cells % 0.0 Neutrophils # 4.6 Lymphocytes # 1.1 Monocytes # 0.7 Eosinophils # 0.2 Basophils # 0.0 Nucleated Red Blood Cells # 0.0 Sodium Level 138 Potassium Level 4.1 Chloride Level 101 Carbon Dioxide Level 35 H Anion Gap 6 L Blood Urea Nitrogen 18 Creatinine 0.95 Glucose Level 91 Calcium Level 8.8 Medications Medications Current Medications IV Flush (NS 10 ml) 10 ml PRN PRN IV IV PROTOCOL; Start 08/31/16 at 18:30 Metoprolol Tartrate (Lopressor) 5 mg Q4H PRN IV ELEVATED HEART RATE Last administered on 09/02/16 17:09; Admin Dose 5 MG; Start 09/02/16 at 17:30; Status Future Hold Morphine Sulfate (morphine) 4 mg Q3 PRN IV PAIN Last administered on 09/16/16 12:05; Admin Dose 4 MG; Start 09/05/16 at 17:00 Morphine Sulfate (Ms Contin (Er)) 30 mg BID PO Last administered on 09/16/16 08:52; Admin Dose 30 MG; Start 09/05/16 at 21:00 Docusate Sodium (Colace) 100 mg TID PO Last administered on 09/16/16 08:52; Admin Dose 100 MG; Start 09/06/16 at 21:00 Bisacodyl (Dulcolax) 5 mg DAILY PRN PO CONSTIPATION Last administered on 16:28; Admin Dose 5 MG; Start 09/06/16 at 16:00 Pantoprazole (Protonix Tab) 40 mg DAILY@06 PO Last administered on 09/16/16 05 :36; Admin Dose 40 MG; Start 09/07/16 at 06:00 Atorvastatin Calcium (Lipitor) 20 mg QHS PO Last administered on 09/15/16 20: 59; Admin Dose 20 MG; Start 09/08/16 at 21:00 Docusate Sodium (Colace) 100 mg BID PRN PO CONSTIPATION; Start 09/08/16 at 13: 00 Escitalopram Oxalate (Lexapro) 10 mg DAILY PO Last administered on 09/16/16 08 :52; Admin Dose 10 MG; Start 09/09/16 at 09:00 Senna (Senokot) 1 tab Q12H PRN PO CONSTIPATION; Start 09/08/16 at 13:00 Trazodone HCl (Desyrel) 50 mg QHS PO Last administered on 09/15/16 23:42; Admin Dose 50 MG; Start 09/08/16 at 21:00 Voriconazole (Vfend) 100 mg BID PO Last administered on 09/16/16 08:52; Admin Dose 100 MG; Start 09/11/16 at 09:00 Filgrastim (Neupogen) 300 mcg DAILY@17 SC Last administered on 09/15/16 17:11 ; Admin Dose 300 MCG; Start 09/12/16 at 18:00 Aspirin (Halfprin) 81 mg DAILY PO Last administered on 09/16/16 08:52; Admin Dose 81 MG; Start 09/14/16 at 09:00 Promethazine HCl/ Codeine (Phenergan/ Codeine) 10 ml Q6H PRN PO COUGH Last administered on 09/16/16 12:47; Admin Dose 10 ML; Start 09/16/16 at 12:30 FRANCIS ESPINAL MD Sep 16, 2016 15:17
[2016-09-16] MEDS: FILGRASTIM 300 MCG INJ SC SCH (18:45)
[2016-09-16 19:22] VITALS: BP 118/78; RESP 18
[2016-09-16] MEDS: ATORVASTATIN 20 MG TAB PO SCH (20:50)
[2016-09-16] MEDS ORDERED: VITAMIN A & D 5 GM OINT PACKET TOP ONE (20:55)
[2016-09-16] MEDS: traZODone 50 MG TAB PO SCH (23:10)
[2016-09-17] MEDS ORDERED: ALTEPLASE (CATHFLO) 2 MG INJ CATHETER PRN ×2
[2016-09-17] MEDS: ALBUTEROL/IPRATROPIUM (NEB) 3 ML AMP HHN SCH ×4 (01:21→22:04)
[2016-09-17] MEDS: PANTOPRAZOLE (EC) 40 MG TAB PO SCH (05:32)
[2016-09-17] MEDS: morphine 4 MG/ML VIAL IV PRN ×5 (05:33→21:40)
[2016-09-17] MEDS: LEVOTHYROXINE 50 MCG TAB PO SCH (06:06)
[2016-09-17 06:40] LABS: ADD SCAN DIFF NO
[2016-09-17 06:57] LABS: CALCIUM 8.9 mg/dl (8.4-10.2); CREATININE 0.93 mg/dl (0.61-1.24); POTASSIUM 3.9 mmol/L (3.5-5.1)
[2016-09-17 07:41] VITALS: BP 112/60; RESP 22
[2016-09-17 07:41] LABS: ABNORMAL IP MESSAGE 1; HEMATOCRIT 29.6 % (42.0-52.0); HEMOGLOBIN 9.3 g/dl (14.0-18.0); MEAN CORPUSCULAR HEMOGLOBIN 31.7 pg (29.0-33.0); MEAN CORPUSCULAR HGB CONC 31.4 g/dl (32.0-37.0); MEAN PLATELET VOLUME 10.8 fl (7.4-10.4); PLATELET COUNT 129 10^3/UL (140-415); RED BLOOD COUNT 2.93 10^6/ul (4.70-6.10); RED CELL DISTRIBUTION WIDTH 15.8 % (11.5-14.5)
--- NOTE | 2016-09-17 08:09 | RADRPT ---
PROCEDURE: XR Chest 1 View. CLINICAL INDICATION: Cough TECHNIQUE: AP view of the chest was obtained. COMPARISON: September 13, 2016 FINDINGS: Heart borders are obscured by the opacities. Elevation right hemidiaphragm is unchanged. Right uppe r lobe consolidation is stable. Patchy infiltrates in the right lower lobe are unchanged. Atelecta sis is noted at the left lung base the osseous structures are osteopenic, but appear grossly intact and are stable. Left-sided PICC line is grossly unchanged. IMPRESSION: Stable consolidation of the right upper lobe. Stable patchy infiltrates in the right lower lobe. Stable elevation of the right hemidiaphragm. Atelectasis at the left lung base. RPTAT: AA .Bassam Maradiaga MD, Date Time Electronically viewed and signed by .Bassam Maradiaga MD, on 09/17/2016 08:09 .P/
[2016-09-17] MEDS: ESCITALOPRAM 10 MG TAB PO SCH (08:36)
[2016-09-17] MEDS: DOCUSATE SODIUM 100 MG CAP PO SCH ×3 (08:36→20:48)
[2016-09-17] MEDS: morphine (ER) 30 MG TAB PO SCH ×2 (08:36→20:47)
[2016-09-17] MEDS: ASPIRIN (EC) 81 MG TAB PO SCH (08:36)
[2016-09-17] MEDS: VORICONAZOLE 200 MG TAB PO SCH ×2 (08:37→20:47)
[2016-09-17] MEDS: ALBUTEROL/IPRATROPIUM (NEB) 3 ML AMP HHN PRN (09:30)
[2016-09-17 11:28] LABS: EOSINOPHILS # 0.3 10^3/ul (0.0-0.5); LYMPHOCYTES # 0.6 10^3/ul (0.8-2.9); MONOCYTE # 1.2 10^3/ul (0.3-0.9); MYELOCYTES # 0.1; NEUTROPHIL # 4.6 10^3/ul (1.6-7.5)
[2016-09-17 11:29] LABS: PLATELET ESTIMATE PLT APPEAR ADEQUATE
[2016-09-17] MEDS: PROMETHAZINE/CODEINE 5ML CUP PO PRN (11:59)
--- NOTE | 2016-09-17 12:18 | PN ---
Date/Time of Note Date/Time of Note DATE: 09/17/16 TIME: 12:12 Assessment/Plan VTE Prophylaxis VTE Prophylaxis Intervention: other Lines/Catheters IV Catheter Type (from Nrs): Saline Lock Assessment/Plan Assessment/Plan -pneumonia/bronchitis- cough noted - Phenergan with codeine PRN cough - S/p severe sepsis due to pneumonia/bronchitis, Dr. Fraga group is following infection disease consultation. - Advanced non-small cell lung CA, on biweekly chemotherapy infusion x2 years, Dr. Scanlon is following in oncology consultation. - Acute respiratory failure, resolving. Dr. Castanon is following in pulmonology consultation. - Pancytopenia due to chemotherapy -Acute on chronic diastolic congestive heart failure, continue gentle diuresis, continue to monitor electrolytes. -Cardiac arrhythmia, Dr. Gaytan is following in cardiology consultation. 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 Further recommendations based on clinical course. Plan of care discussed with Dr. Lincoln. Subjective 24 Hr Interval Summary Eyes: no complaints ENT: no complaints Respiratory: cough, shortness of breath Cardiovascular: no complaints Gastrointestinal: no complaints Genitourinary: no complaints Musculoskeletal: no complaints Skin: no complaints Neurologic: no complaints Endocrine: no complaints Lymphatic: no complaints Psychological: no complaints Immunologic: no complaints Exam/Review of Systems Vital Signs Vitals Vital Signs Date Time Temp Pulse Resp B/P Pulse Ox O2 Delivery O2 Flow Rate FiO2 09/17/16 09:30 91 20 95 Nasal Cannula 3.0 09/17/16 07:41 98.4 112/60 Intake and Output 09/16/16 09/16/16 09/17/16 15:00 23:00 07:00 Intake Total 1320 ml 360 ml Balance 1320 ml 360 ml Exam Constitutional: alert, oriented, well developed Psych: no complaints Eyes: EOMI, PERRL, nl sclera ENMT: nl external ears & nose Neck: non-tender Cardiovascular: nl pulses Gastrointestinal: non-tender, soft Musculoskeletal: nl extremities to inspection Extremities: normal pulses Neurological: nl mental status, nl speech Skin: nl turgor Lymph: nontender Results Result Diagram: 09/17/16 0545 09/17/16 0545 Results 24 hrs Laboratory Tests Test 09/17/16 05:45 White Blood Count 9.0 # Red Blood Count 2.93 L Hemoglobin 9.3 L Hematocrit 29.6 L Mean Corpuscular Volume 101.0 Mean Corpuscular Hemoglobin 31.7 Mean Corpuscular Hemoglobin Concent 31.4 L Red Cell Distribution Width 15.8 H Platelet Count 129 L Mean Platelet Volume 10.8 H Neutrophils % 51.0 Band Neutrophils % 19.0 H Lymphocytes % 7.0 L Reactive Lymphocytes % 1.0 Monocytes % 13.0 H Eosinophils % 3.0 Metamyelocytes % 5.0 H Myelocytes % 1.0 H Neutrophils # 4.6 Lymphocytes # 0.6 L Monocytes # 1.2 H Eosinophils # 0.3 Metamyelocytes # 0.5 Myelocytes # 0.1 Platelet Estimate PLT APPEAR ADEQUATE Sodium Level 137 Potassium Level 3.9 Chloride Level 99 Carbon Dioxide Level 32 H Anion Gap 10 Blood Urea Nitrogen 17 Creatinine 0.93 Glucose Level 98 Calcium Level 8.9 Medications Medications Current Medications IV Flush (NS 10 ml) 10 ml PRN PRN IV IV PROTOCOL; Start 08/31/16 at 18:30 Metoprolol Tartrate (Lopressor) 5 mg Q4H PRN IV ELEVATED HEART RATE Last administered on 09/02/16 17:09; Admin Dose 5 MG; Start 09/02/16 at 17:30; Status Future Hold Morphine Sulfate (morphine) 4 mg Q3 PRN IV PAIN Last administered on 09/17/16 11:30; Admin Dose 4 MG; Start 09/05/16 at 17:00 Morphine Sulfate (Ms Contin (Er)) 30 mg BID PO Last administered on 09/17/16 08:36; Admin Dose 30 MG; Start 09/05/16 at 21:00 Docusate Sodium (Colace) 100 mg TID PO Last administered on 09/17/16 11:55; Admin Dose 100 MG; Start 09/06/16 at 21:00 Bisacodyl (Dulcolax) 5 mg DAILY PRN PO CONSTIPATION Last administered on 16:28; Admin Dose 5 MG; Start 09/06/16 at 16:00 Pantoprazole (Protonix Tab) 40 mg DAILY@06 PO Last administered on 09/17/16 05 :32; Admin Dose 40 MG; Start 09/07/16 at 06:00 Atorvastatin Calcium (Lipitor) 20 mg QHS PO Last administered on 09/16/16 20: 50; Admin Dose 20 MG; Start 09/08/16 at 21:00 Docusate Sodium (Colace) 100 mg BID PRN PO CONSTIPATION; Start 09/08/16 at 13: 00 Escitalopram Oxalate (Lexapro) 10 mg DAILY PO Last administered on 09/17/16 08 :36; Admin Dose 10 MG; Start 09/09/16 at 09:00 Senna (Senokot) 1 tab Q12H PRN PO CONSTIPATION; Start 09/08/16 at 13:00 Trazodone HCl (Desyrel) 50 mg QHS PO Last administered on 09/16/16 23:10; Admin Dose 50 MG; Start 09/08/16 at 21:00 Voriconazole (Vfend) 100 mg BID PO Last administered on 09/17/16 08:37; Admin Dose 100 MG; Start 09/11/16 at 09:00 Filgrastim (Neupogen) 300 mcg DAILY@17 SC Last administered on 09/16/16 18:45 ; Admin Dose 300 MCG; Start 09/12/16 at 18:00 Aspirin (Halfprin) 81 mg DAILY PO Last administered on 09/17/16 08:36; Admin Dose 81 MG; Start 09/14/16 at 09:00 Promethazine HCl/ Codeine (Phenergan/ Codeine) 10 ml Q6H PRN PO COUGH Last administered on 09/17/16 11:59; Admin Dose 10 ML; Start 09/16/16 at 12:30 TRAMAINE ELLSWORTH Sep 17, 2016 12:18
--- NOTE | 2016-09-17 12:42 | CONS ---
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), on maintenance voriconazole - h/o post-obstructive pneumonia - h/o HTN, CAD, hyperlipidemia - h/o paroxysmal A fib - h/o DVT in LUE - hypothyroidism with elevated TSH level - hypomagnesemia - HIV negative in 2013 - tachycardia - improving Recommendations: - Continue pt's usual dose of PO voriconazole 100 mg bid; His ID specialist recommended that he take this for 6 months since 03/2016 Problems: Consultation Date/Type/Reason Admit Date/Time Sep 01, 2016 at 14:47 Initial Consult Date 09/01/16 Type of Consultation: id Referring Provider: MARYAM FARMER MD Exam/Review of Systems Vital Signs Vitals Vital Signs Date Time Temp Pulse Resp B/P Pulse Ox O2 Delivery O2 Flow Rate FiO2 09/17/16 09:30 91 20 95 Nasal Cannula 3.0 09/17/16 07:41 98.4 112/60 Intake and Output 09/16/16 09/16/16 09/17/16 15:00 23:00 07:00 Intake Total 1320 ml 360 ml Balance 1320 ml 360 ml Exam Constitutional: alert, oriented, well developed Psych: nl mood/affect, no complaints Head: atraumatic, normocephalic Eyes: EOMI, PERRL, nl conjunctiva, nl lids, nl sclera ENMT: nl external ears & nose, nl lips & teeth, nl nasal mucosa & septum Respiratory: clear to auscultation, normal air movement Cardiovascular: nl pulses, regular rate and rhythm Gastrointestinal: nl liver, spleen, non-tender, soft Musculoskeletal: nl extremities to inspection, nl gait and stance Neurological: [employer] II-XII intact, nl mental status, nl speech, nl strength Results Result Diagram: 09/17/16 0545 09/17/16 0545 Results 24 hrs Laboratory Tests Test 09/17/16 05:45 White Blood Count 9.0 # Red Blood Count 2.93 L Hemoglobin 9.3 L Hematocrit 29.6 L Mean Corpuscular Volume 101.0 Mean Corpuscular Hemoglobin 31.7 Mean Corpuscular Hemoglobin Concent 31.4 L Red Cell Distribution Width 15.8 H Platelet Count 129 L Mean Platelet Volume 10.8 H Neutrophils % 51.0 Band Neutrophils % 19.0 H Lymphocytes % 7.0 L Reactive Lymphocytes % 1.0 Monocytes % 13.0 H Eosinophils % 3.0 Metamyelocytes % 5.0 H Myelocytes % 1.0 H Neutrophils # 4.6 Lymphocytes # 0.6 L Monocytes # 1.2 H Eosinophils # 0.3 Metamyelocytes # 0.5 Myelocytes # 0.1 Platelet Estimate PLT APPEAR ADEQUATE Sodium Level 137 Potassium Level 3.9 Chloride Level 99 Carbon Dioxide Level 32 H Anion Gap 10 Blood Urea Nitrogen 17 Creatinine 0.93 Glucose Level 98 Calcium Level 8.9 Medications Medications Current Medications IV Flush (NS 10 ml) 10 ml PRN PRN IV IV PROTOCOL; Start 08/31/16 at 18:30 Metoprolol Tartrate (Lopressor) 5 mg Q4H PRN IV ELEVATED HEART RATE Last administered on 09/02/16 17:09; Admin Dose 5 MG; Start 09/02/16 at 17:30; Status Future Hold Morphine Sulfate (morphine) 4 mg Q3 PRN IV PAIN Last administered on 09/17/16 11:30; Admin Dose 4 MG; Start 09/05/16 at 17:00 Morphine Sulfate (Ms Contin (Er)) 30 mg BID PO Last administered on 09/17/16 08:36; Admin Dose 30 MG; Start 09/05/16 at 21:00 Docusate Sodium (Colace) 100 mg TID PO Last administered on 09/17/16 11:55; Admin Dose 100 MG; Start 09/06/16 at 21:00 Bisacodyl (Dulcolax) 5 mg DAILY PRN PO CONSTIPATION Last administered on 16:28; Admin Dose 5 MG; Start 09/06/16 at 16:00 Pantoprazole (Protonix Tab) 40 mg DAILY@06 PO Last administered on 09/17/16 05 :32; Admin Dose 40 MG; Start 09/07/16 at 06:00 Atorvastatin Calcium (Lipitor) 20 mg QHS PO Last administered on 09/16/16 20: 50; Admin Dose 20 MG; Start 09/08/16 at 21:00 Docusate Sodium (Colace) 100 mg BID PRN PO CONSTIPATION; Start 09/08/16 at 13: 00 Escitalopram Oxalate (Lexapro) 10 mg DAILY PO Last administered on 09/17/16 08 :36; Admin Dose 10 MG; Start 09/09/16 at 09:00 Senna (Senokot) 1 tab Q12H PRN PO CONSTIPATION; Start 09/08/16 at 13:00 Trazodone HCl (Desyrel) 50 mg QHS PO Last administered on 09/16/16 23:10; Admin Dose 50 MG; Start 09/08/16 at 21:00 Voriconazole (Vfend) 100 mg BID PO Last administered on 09/17/16 08:37; Admin Dose 100 MG; Start 09/11/16 at 09:00 Filgrastim (Neupogen) 300 mcg DAILY@17 SC Last administered on 09/16/16 18:45 ; Admin Dose 300 MCG; Start 09/12/16 at 18:00 Aspirin (Halfprin) 81 mg DAILY PO Last administered on 09/17/16 08:36; Admin Dose 81 MG; Start 09/14/16 at 09:00 Promethazine HCl/ Codeine (Phenergan/ Codeine) 10 ml Q6H PRN PO COUGH Last administered on 09/17/16 11:59; Admin Dose 10 ML; Start 09/16/16 at 12:30 DELIO DIALLO MD Sep 17, 2016 12:42
--- NOTE | 2016-09-17 15:17 | CONS ---
Date/Time of Note Date/Time of Note DATE: 09/17/16 TIME: 15:15 Assessment/Plan Assessment/Plan Additional Assessment/Plan 1. Cardiac arrhythmia, with currently rhythm most consistent with sinus tachycardia, but also having pauses. Negative troponin x 3/TSH elevated - HR better now. - BETTER NOW 2. Abnormal electrocardiogram. trop negative x3/NL EF by echo this admit 3. Hypertension, labile- better now, con't to follow- stabkle, on med rx 4. Dyslipidemia. 5. Pneumonia and bronchitis- on anti-bx now - much improved - BETTER, decreased cough now 6. Lung cancer. 7. Hypothyroidism. 8. Anemia. 9. Thrombocytopenia, severe. 10. Prior hemoptysis. 11. CHF - acute on chorionic, con't gentle diureses as tolerated Consultation Date/Type/Reason Admit Date/Time Sep 01, 2016 at 14:47 Initial Consult Date 09/01/16 Type of Consultation: id Referring Provider: MARYAM FARMER MD 24 HR Interval Summary Free Text/Dictation NO acute events - better overall ROS: No fever, no chills, no nausea, no vomiting, no diarrhea/constipation No recent weight changes No chest pain, no PND, no orthopnea No dizziness, blurred vision No thirst, no heat or cold intolerance Exam/Review of Systems Vital Signs Vitals Vital Signs Date Time Temp Pulse Resp B/P Pulse Ox O2 Delivery O2 Flow Rate FiO2 09/17/16 14:11 95 16 95 Nasal Cannula 3.0 09/17/16 07:41 98.4 112/60 Intake and Output 09/16/16 09/16/16 09/17/16 14:59 22:59 06:59 Intake Total 1320 ml 360 ml Balance 1320 ml 360 ml Exam General: WN/WD/NAD, AOx 3 HEENT: Unicetric/atraumatic/EOMI ( follow commands) NECK: JVD elevated, no thyromegaly Lymph: no lymphadenopathy HEART: regular with no S3, II/ systolic murmur at apex LUNGS: Coarse sounds ABD: soft, NT, ND, +BS : Intact Neuro: non focal SKIN: chronic changes EXT: trace edema Results Result Diagram: 09/17/16 0545 09/17/16 0545 Results 24 hrs Laboratory Tests Test 09/17/16 05:45 White Blood Count 9.0 # Red Blood Count 2.93 L Hemoglobin 9.3 L Hematocrit 29.6 L Mean Corpuscular Volume 101.0 Mean Corpuscular Hemoglobin 31.7 Mean Corpuscular Hemoglobin Concent 31.4 L Red Cell Distribution Width 15.8 H Platelet Count 129 L Mean Platelet Volume 10.8 H Neutrophils % 51.0 Band Neutrophils % 19.0 H Lymphocytes % 7.0 L Reactive Lymphocytes % 1.0 Monocytes % 13.0 H Eosinophils % 3.0 Metamyelocytes % 5.0 H Myelocytes % 1.0 H Neutrophils # 4.6 Lymphocytes # 0.6 L Monocytes # 1.2 H Eosinophils # 0.3 Metamyelocytes # 0.5 Myelocytes # 0.1 Platelet Estimate PLT APPEAR ADEQUATE Sodium Level 137 Potassium Level 3.9 Chloride Level 99 Carbon Dioxide Level 32 H Anion Gap 10 Blood Urea Nitrogen 17 Creatinine 0.93 Glucose Level 98 Calcium Level 8.9 Medications Medications Current Medications IV Flush (NS 10 ml) 10 ml PRN PRN IV IV PROTOCOL; Start 08/31/16 at 18:30 Metoprolol Tartrate (Lopressor) 5 mg Q4H PRN IV ELEVATED HEART RATE Last administered on 09/02/16 17:09; Admin Dose 5 MG; Start 09/02/16 at 17:30; Status Future Hold Morphine Sulfate (morphine) 4 mg Q3 PRN IV PAIN Last administered on 09/17/16 11:30; Admin Dose 4 MG; Start 09/05/16 at 17:00 Morphine Sulfate (Ms Contin (Er)) 30 mg BID PO Last administered on 09/17/16 08:36; Admin Dose 30 MG; Start 09/05/16 at 21:00 Docusate Sodium (Colace) 100 mg TID PO Last administered on 09/17/16 11:55; Admin Dose 100 MG; Start 09/06/16 at 21:00 Bisacodyl (Dulcolax) 5 mg DAILY PRN PO CONSTIPATION Last administered on 16:28; Admin Dose 5 MG; Start 09/06/16 at 16:00 Pantoprazole (Protonix Tab) 40 mg DAILY@06 PO Last administered on 09/17/16 05 :32; Admin Dose 40 MG; Start 09/07/16 at 06:00 Atorvastatin Calcium (Lipitor) 20 mg QHS PO Last administered on 09/16/16 20: 50; Admin Dose 20 MG; Start 09/08/16 at 21:00 Docusate Sodium (Colace) 100 mg BID PRN PO CONSTIPATION; Start 09/08/16 at 13: 00 Escitalopram Oxalate (Lexapro) 10 mg DAILY PO Last administered on 09/17/16 08 :36; Admin Dose 10 MG; Start 09/09/16 at 09:00 Senna (Senokot) 1 tab Q12H PRN PO CONSTIPATION; Start 09/08/16 at 13:00 Trazodone HCl (Desyrel) 50 mg QHS PO Last administered on 09/16/16 23:10; Admin Dose 50 MG; Start 09/08/16 at 21:00 Voriconazole (Vfend) 100 mg BID PO Last administered on 09/17/16 08:37; Admin Dose 100 MG; Start 09/11/16 at 09:00 Filgrastim (Neupogen) 300 mcg DAILY@17 SC Last administered on 09/16/16 18:45 ; Admin Dose 300 MCG; Start 09/12/16 at 18:00 Aspirin (Halfprin) 81 mg DAILY PO Last administered on 09/17/16 08:36; Admin Dose 81 MG; Start 09/14/16 at 09:00 Promethazine HCl/ Codeine (Phenergan/ Codeine) 10 ml Q6H PRN PO COUGH Last administered on 09/17/16 11:59; Admin Dose 10 ML; Start 09/16/16 at 12:30 FRANCIS ESPINAL MD Sep 17, 2016 15:16
[2016-09-17] MEDS: FILGRASTIM 300 MCG INJ SC SCH (18:08)
[2016-09-17 19:28] VITALS: BP 146/80; RESP 22
[2016-09-17] MEDS: ATORVASTATIN 20 MG TAB PO SCH (20:47)
[2016-09-18] MEDS: traZODone 50 MG TAB PO SCH ×2 (00:23→21:00)
[2016-09-18] MEDS: morphine 4 MG/ML VIAL IV PRN ×7 (00:24→21:06)
[2016-09-18] MEDS: PROMETHAZINE/CODEINE 5ML CUP PO PRN ×3 (00:26→21:14)
[2016-09-18] MEDS: ALBUTEROL/IPRATROPIUM (NEB) 3 ML AMP HHN SCH ×4 (02:00→20:06)
[2016-09-18 05:12] LABS: ADD SCAN DIFF NO
[2016-09-18 05:21] LABS: ABNORMAL IP MESSAGE 1; BASOPHIL # 0.1 10^3/ul (0.0-0.1); BASOPHILS % 0.6 % (0.0-2.0); EOSINOPHILS # 0.3 10^3/ul (0.0-0.5); EOSINOPHILS % 1.8 % (0.0-7.0); HEMATOCRIT 29.7 % (42.0-52.0); HEMOGLOBIN 9.1 g/dl (14.0-18.0); LYMPHOCYTES # 1.1 10^3/ul (0.8-2.9); LYMPHOCYTES % 7.7 % (15.0-51.0); MEAN CORPUSCULAR HEMOGLOBIN 31.2 pg (29.0-33.0); MEAN CORPUSCULAR HGB CONC 30.6 g/dl (32.0-37.0); MEAN CORPUSCULAR VOLUME 101.7 fl (82.0-101.0); MEAN PLATELET VOLUME 10.3 fl (7.4-10.4); MONOCYTE # 1.4 10^3/ul (0.3-0.9); MONOCYTES % 10.2 % (0.0-11.0); NEUTROPHIL # 10.1 10^3/ul (1.6-7.5); NEUTROPHILS % 71.4 % (39.0-77.0); PLATELET COUNT 136 10^3/UL (140-415); RED BLOOD COUNT 2.92 10^6/ul (4.70-6.10); RED CELL DISTRIBUTION WIDTH 15.9 % (11.5-14.5); WHITE BLOOD COUNT 14.1 10^3/ul (4.8-10.8)
[2016-09-18 05:37] LABS: CALCIUM 8.8 mg/dl (8.4-10.2); CREATININE 1.01 mg/dl (0.61-1.24)
[2016-09-18] MEDS: PANTOPRAZOLE (EC) 40 MG TAB PO SCH (06:25)
[2016-09-18] MEDS: LEVOTHYROXINE 50 MCG TAB PO SCH (06:25)
[2016-09-18 07:51] VITALS: BP 113/73; RESP 21
[2016-09-18] MEDS: DOCUSATE SODIUM 100 MG CAP PO SCH ×3 (09:26→21:09)
[2016-09-18] MEDS: morphine (ER) 30 MG TAB PO SCH ×2 (09:27→21:13)
[2016-09-18] MEDS: VORICONAZOLE 200 MG TAB PO SCH ×2 (09:27→21:10)
[2016-09-18] MEDS: ESCITALOPRAM 10 MG TAB PO SCH (09:27)
[2016-09-18] MEDS: ASPIRIN (EC) 81 MG TAB PO SCH (09:27)
--- NOTE | 2016-09-18 10:53 | CONS ---
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 Per Pt, he is supposed to take it for 6 months since the end of 2015 management d/w Pt Problems: Consultation Date/Type/Reason Admit Date/Time Sep 01, 2016 at 14:47 Initial Consult Date 09/01/16 Type of Consultation: ID Referring Provider: MARYAM FARMER MD 24 HR Interval Summary Constitutional: no complaints Detailed Summary Eyes: no complaints Respiratory: cough, shortness of breath, sputum, wheezing Cardiovascular: no complaints Gastrointestinal: no complaints Genitourinary: no complaints Musculoskeletal: no complaints Skin: no complaints Exam/Review of Systems Vital Signs Vitals Vital Signs Date Time Temp Pulse Resp B/P Pulse Ox O2 Delivery O2 Flow Rate FiO2 09/18/16 08:00 98 20 97 Nasal Cannula 3.0 09/18/16 07:51 97.9 113/73 Intake and Output 09/17/16 09/17/16 09/18/16 15:00 23:00 07:00 Intake Total 1360 ml 480 ml Balance 1360 ml 480 ml Exam Constitutional: frail, obese Psych: no complaints Head: atraumatic, normocephalic Eyes: nl conjunctiva, nl lids ENMT: nl external ears & nose, nl nasal mucosa & septum Neck: supple Respiratory: congested cough, labored breathing, wheezing Cardiovascular: nl pulses, regular rate and rhythm Gastrointestinal: non-tender, soft, No distended Musculoskeletal: nl extremities to inspection Extremities: normal pulses, No edema Results Result Diagram: 09/18/16 0450 09/18/16 0450 Results 24 hrs Laboratory Tests Test 09/18/16 04:50 White Blood Count 14.1 #H Red Blood Count 2.92 L Hemoglobin 9.1 L Hematocrit 29.7 L Mean Corpuscular Volume 101.7 H Mean Corpuscular Hemoglobin 31.2 Mean Corpuscular Hemoglobin Concent 30.6 L Red Cell Distribution Width 15.9 H Platelet Count 136 L Mean Platelet Volume 10.3 Neutrophils % 71.4 Lymphocytes % 7.7 L Monocytes % 10.2 Eosinophils % 1.8 Basophils % 0.6 Nucleated Red Blood Cells % 0.0 Neutrophils # 10.1 H Lymphocytes # 1.1 Monocytes # 1.4 H Eosinophils # 0.3 Basophils # 0.1 Nucleated Red Blood Cells # 0.0 Sodium Level 137 Potassium Level 4.0 Chloride Level 100 Carbon Dioxide Level 31 Anion Gap 10 Blood Urea Nitrogen 15 Creatinine 1.01 Glucose Level 97 Calcium Level 8.8 Medications Medications Current Medications IV Flush (NS 10 ml) 10 ml PRN PRN IV IV PROTOCOL; Start 08/31/16 at 18:30 Metoprolol Tartrate (Lopressor) 5 mg Q4H PRN IV ELEVATED HEART RATE Last administered on 09/02/16 17:09; Admin Dose 5 MG; Start 09/02/16 at 17:30; Status Future Hold Morphine Sulfate (morphine) 4 mg Q3 PRN IV PAIN Last administered on 09/18/16 06:26; Admin Dose 4 MG; Start 09/05/16 at 17:00 Morphine Sulfate (Ms Contin (Er)) 30 mg BID PO Last administered on 09/18/16 09:27; Admin Dose 30 MG; Start 09/05/16 at 21:00 Docusate Sodium (Colace) 100 mg TID PO Last administered on 09/18/16 09:26; Admin Dose 100 MG; Start 09/06/16 at 21:00 Bisacodyl (Dulcolax) 5 mg DAILY PRN PO CONSTIPATION Last administered on 16:28; Admin Dose 5 MG; Start 09/06/16 at 16:00 Pantoprazole (Protonix Tab) 40 mg DAILY@06 PO Last administered on 09/18/16 06 :25; Admin Dose 40 MG; Start 09/07/16 at 06:00 Atorvastatin Calcium (Lipitor) 20 mg QHS PO Last administered on 09/17/16 20: 47; Admin Dose 20 MG; Start 09/08/16 at 21:00 Docusate Sodium (Colace) 100 mg BID PRN PO CONSTIPATION; Start 09/08/16 at 13: 00 Escitalopram Oxalate (Lexapro) 10 mg DAILY PO Last administered on 09/18/16 09 :27; Admin Dose 10 MG; Start 09/09/16 at 09:00 Senna (Senokot) 1 tab Q12H PRN PO CONSTIPATION; Start 09/08/16 at 13:00 Trazodone HCl (Desyrel) 50 mg QHS PO Last administered on 09/18/16 00:23; Admin Dose 50 MG; Start 09/08/16 at 21:00 Voriconazole (Vfend) 100 mg BID PO Last administered on 09/18/16 09:27; Admin Dose 100 MG; Start 09/11/16 at 09:00 Filgrastim (Neupogen) 300 mcg DAILY@17 SC Last administered on 09/17/16 18:08 ; Admin Dose 300 MCG; Start 09/12/16 at 18:00 Aspirin (Halfprin) 81 mg DAILY PO Last administered on 09/18/16 09:27; Admin Dose 81 MG; Start 09/14/16 at 09:00 Promethazine HCl/ Codeine (Phenergan/ Codeine) 10 ml Q6H PRN PO COUGH Last administered on 09/18/16 09:31; Admin Dose 10 ML; Start 09/16/16 at 12:30 LUKE CAAL M.D. Sep 18, 2016 10:53
--- NOTE | 2016-09-18 12:58 | CONS ---
Date/Time of Note Date/Time of Note DATE: 09/18/16 TIME: 12:56 Assessment/Plan Assessment/Plan Chief Complaint/Hosp Course IMPRESSION: 1. Cardiac arrhythmia, with currently rhythm most consistent with sinus tachycardia, but also having pauses. Negative troponin x 3/TSH elevated-no recurrence/reasonable HR control 2. Abnormal electrocardiogram. trop negative x3/NL EF by echo this admit 3. Hypertension, labile. 4. Dyslipidemia. 5. Pneumonia and bronchitis. 6. Lung cancer. 7. Hypothyroidism. 8. Anemia. 9. Thrombocytopenia, severe. 10. Prior hemoptysis. 11.BNP-elevated 12.PNA Recc: -Now med-surg -Continue statin/asa -Contine voriconazole -Follow volume status closely with spot dosing of lasix as necessary and thus will give dose today -Onc following Problems: Consultation Date/Type/Reason Admit Date/Time Sep 01, 2016 at 14:47 Initial Consult Date 09/01/16 Type of Consultation: Cardiology Reason for Consultation sob Referring Provider: MARYAM FARMER MD Exam/Review of Systems Vital Signs Vitals Vital Signs Date Time Temp Pulse Resp B/P Pulse Ox O2 Delivery O2 Flow Rate FiO2 09/18/16 08:00 98 20 97 Nasal Cannula 3.0 09/18/16 07:51 97.9 113/73 Intake and Output 09/17/16 09/17/16 09/18/16 15:00 23:00 07:00 Intake Total 1360 ml 480 ml Balance 1360 ml 480 ml Exam Review of Systems: CONSTITUTIONAL: No fevers, chills. PULMONARY: ongoing sob CARDIOVASCULAR: No chest pain/palpitations GASTROINTESTINAL: No nausea/vomiting. GENITOURINARY: No hematuria/dysuria. MUSCULOSKELETAL: No myagias/arthalgias. PSYCHIATRIC: The patient denies depression. NEUROLOGIC: No weakness Constitutional: alert, oriented Psych: no complaints Head: normocephalic ENMT: mucosa pink and moist Neck: jvd (9 cm water), supple Respiratory: diminished breath sounds (at bases/B) Cardiovascular: regular rate and rhythm Gastrointestinal: non-tender, soft Musculoskeletal: muscle tone (normal) Extremities: edema (trace/B) Neurological: other (No focal deficits) Results Result Diagram: 09/18/1644909/18/16 045 Results 24 hrs Laboratory Tests Test 09/18/16 04:50 White Blood Count 14.1 #H Red Blood Count 2.92 L Hemoglobin 9.1 L Hematocrit 29.7 L Mean Corpuscular Volume 101.7 H Mean Corpuscular Hemoglobin 31.2 Mean Corpuscular Hemoglobin Concent 30.6 L Red Cell Distribution Width 15.9 H Platelet Count 136 L Mean Platelet Volume 10.3 Neutrophils % 71.4 Lymphocytes % 7.7 L Monocytes % 10.2 Eosinophils % 1.8 Basophils % 0.6 Nucleated Red Blood Cells % 0.0 Neutrophils # 10.1 H Lymphocytes # 1.1 Monocytes # 1.4 H Eosinophils # 0.3 Basophils # 0.1 Nucleated Red Blood Cells # 0.0 Sodium Level 137 Potassium Level 4.0 Chloride Level 100 Carbon Dioxide Level 31 Anion Gap 10 Blood Urea Nitrogen 15 Creatinine 1.01 Glucose Level 97 Calcium Level 8.8 Medications Medications Current Medications IV Flush (NS 10 ml) 10 ml PRN PRN IV IV PROTOCOL; Start 08/31/16 at 18:30 Metoprolol Tartrate (Lopressor) 5 mg Q4H PRN IV ELEVATED HEART RATE Last administered on 09/02/16 17:09; Admin Dose 5 MG; Start 09/02/16 at 17:30; Status Future Hold Morphine Sulfate (morphine) 4 mg Q3 PRN IV PAIN Last administered on 09/18/16 10:56; Admin Dose 4 MG; Start 09/05/16 at 17:00 Morphine Sulfate (Ms Contin (Er)) 30 mg BID PO Last administered on 09/18/16 09:27; Admin Dose 30 MG; Start 09/05/16 at 21:00 Docusate Sodium (Colace) 100 mg TID PO Last administered on 09/18/16 09:26; Admin Dose 100 MG; Start 09/06/16 at 21:00 Bisacodyl (Dulcolax) 5 mg DAILY PRN PO CONSTIPATION Last administered on 16:28; Admin Dose 5 MG; Start 09/06/16 at 16:00 Pantoprazole (Protonix Tab) 40 mg DAILY@06 PO Last administered on 09/18/16 06 :25; Admin Dose 40 MG; Start 09/07/16 at 06:00 Atorvastatin Calcium (Lipitor) 20 mg QHS PO Last administered on 09/17/16 20: 47; Admin Dose 20 MG; Start 09/08/16 at 21:00 Docusate Sodium (Colace) 100 mg BID PRN PO CONSTIPATION; Start 09/08/16 at 13: 00 Escitalopram Oxalate (Lexapro) 10 mg DAILY PO Last administered on 09/18/16 09 :27; Admin Dose 10 MG; Start 09/09/16 at 09:00 Senna (Senokot) 1 tab Q12H PRN PO CONSTIPATION; Start 09/08/16 at 13:00 Trazodone HCl (Desyrel) 50 mg QHS PO Last administered on 09/18/16 00:23; Admin Dose 50 MG; Start 09/08/16 at 21:00 Voriconazole (Vfend) 100 mg BID PO Last administered on 09/18/16 09:27; Admin Dose 100 MG; Start 09/11/16 at 09:00 Filgrastim (Neupogen) 300 mcg DAILY@17 SC Last administered on 09/17/16 18:08 ; Admin Dose 300 MCG; Start 09/12/16 at 18:00 Aspirin (Halfprin) 81 mg DAILY PO Last administered on 09/18/16 09:27; Admin Dose 81 MG; Start 09/14/16 at 09:00 Promethazine HCl/ Codeine (Phenergan/ Codeine) 10 ml Q6H PRN PO COUGH Last administered on 09/18/16 09:31; Admin Dose 10 ML; Start 09/16/16 at 12:30 MARIAA ÁLVAREZ Sep 18, 2016 12:58
[2016-09-18] MEDS: BISACODYL (EC) 5 MG TAB PO PRN (13:25)
[2016-09-18] MEDS: FILGRASTIM 300 MCG INJ SC SCH (17:00)
[2016-09-18] MEDS: SENNA TAB PO PRN (18:32)
--- NOTE | 2016-09-18 18:33 | PN ---
Date/Time of Note Date/Time of Note DATE: 09/18/16 TIME: 18:32 Assessment/Plan VTE Prophylaxis VTE Prophylaxis Intervention: SCD's Lines/Catheters IV [facility]from [facility] PICC Line Central line still needed: Yes Assessment/Plan Chief Complaint/Hosp Course Assessment/Plan - S/p severe sepsis due to pneumonia/bronchitis, Dr. Fraga group is following infection disease consultation. - Advanced non-small cell lung CA, on biweekly chemotherapy infusion x2 years, Dr. Scanlon is following in oncology consultation. - Acute respiratory failure, resolving. Dr. Castanon is following in pulmonology consultation. - Pancytopenia due to chemotherapy -Acute on chronic diastolic congestive heart failure, continue gentle diuresis, continue to monitor electrolytes. -Cardiac arrhythmia, Dr. Gaytan is following in cardiology consultation. 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 Further recommendations based on clinical course. Plan of care discussed with Dr. Lincoln. Problems: Subjective 24 Hr Interval Summary Free Text/Dictation Patient's complains of productive cough and shortness of breath on exertion, denies fever chills. Exam/Review of Systems Vital Signs Vitals Vital Signs Date Time Temp Pulse Resp B/P Pulse Ox O2 Delivery O2 Flow Rate FiO2 09/18/16 14:20 96 20 96 Nasal Cannula 3.0 09/18/16 07:51 97.9 113/73 Intake and Output 09/17/16 09/17/16 09/18/16 15:00 23:00 07:00 Intake Total 1360 ml 480 ml Balance 1360 ml 480 ml Exam Constitutional: alert, oriented Psych: nl mood/affect, no complaints Head: atraumatic, normocephalic Eyes: nl conjunctiva ENMT: nl external ears & nose Neck: non-tender, supple Respiratory: diminished breath sounds, wheezing Cardiovascular: nl pulses, regular rate and rhythm Gastrointestinal: non-tender, soft Musculoskeletal: nl extremities to inspection Extremities: normal pulses Neurological: QUALITY ASSURANCE/R&D LAB TECHNICIAN II-XII intact Results Result Diagram: 09/18/160 09/18/16 0450 Results 24 hrs Laboratory Tests Test 09/18/16 04:50 White Blood Count 14.1 #H Red Blood Count 2.92 L Hemoglobin 9.1 L Hematocrit 29.7 L Mean Corpuscular Volume 101.7 H Mean Corpuscular Hemoglobin 31.2 Mean Corpuscular Hemoglobin Concent 30.6 L Red Cell Distribution Width 15.9 H Platelet Count 136 L Mean Platelet Volume 10.3 Neutrophils % 71.4 Lymphocytes % 7.7 L Monocytes % 10.2 Eosinophils % 1.8 Basophils % 0.6 Nucleated Red Blood Cells % 0.0 Neutrophils # 10.1 H Lymphocytes # 1.1 Monocytes # 1.4 H Eosinophils # 0.3 Basophils # 0.1 Nucleated Red Blood Cells # 0.0 Sodium Level 137 Potassium Level 4.0 Chloride Level 100 Carbon Dioxide Level 31 Anion Gap 10 Blood Urea Nitrogen 15 Creatinine 1.01 Glucose Level 97 Calcium Level 8.8 Medications Medications Current Medications IV Flush (NS 10 ml) 10 ml PRN PRN IV IV PROTOCOL; Start 08/31/16 at 18:30 Metoprolol Tartrate (Lopressor) 5 mg Q4H PRN IV ELEVATED HEART RATE Last administered on 09/02/16 17:09; Admin Dose 5 MG; Start 09/02/16 at 17:30; Status Future Hold Morphine Sulfate (morphine) 4 mg Q3 PRN IV PAIN Last administered on 09/18/16 18:23; Admin Dose 4 MG; Start 09/05/16 at 17:00 Morphine Sulfate (Ms Contin (Er)) 30 mg BID PO Last administered on 09/18/16 09:27; Admin Dose 30 MG; Start 09/05/16 at 21:00 Docusate Sodium (Colace) 100 mg TID PO Last administered on 09/18/16 13:22; Admin Dose 100 MG; Start 09/06/16 at 21:00 Bisacodyl (Dulcolax) 5 mg DAILY PRN PO CONSTIPATION Last administered on 13:25; Admin Dose 5 MG; Start 09/06/16 at 16:00 Pantoprazole (Protonix Tab) 40 mg DAILY@06 PO Last administered on 09/18/16 06 :25; Admin Dose 40 MG; Start 09/07/16 at 06:00 Atorvastatin Calcium (Lipitor) 20 mg QHS PO Last administered on 09/17/16 20: 47; Admin Dose 20 MG; Start 09/08/16 at 21:00 Docusate Sodium (Colace) 100 mg BID PRN PO CONSTIPATION; Start 09/08/16 at 13: 00 Escitalopram Oxalate (Lexapro) 10 mg DAILY PO Last administered on 09/18/16 09 :27; Admin Dose 10 MG; Start 09/09/16 at 09:00 Senna (Senokot) 1 tab Q12H PRN PO CONSTIPATION; Start 09/08/16 at 13:00 Trazodone HCl (Desyrel) 50 mg QHS PO Last administered on 09/18/16 00:23; Admin Dose 50 MG; Start 09/08/16 at 21:00 Voriconazole (Vfend) 100 mg BID PO Last administered on 09/18/16 09:27; Admin Dose 100 MG; Start 09/11/16 at 09:00 Filgrastim (Neupogen) 300 mcg DAILY@17 SC Last administered on 09/17/16 18:08 ; Admin Dose 300 MCG; Start 09/12/16 at 18:00 Aspirin (Halfprin) 81 mg DAILY PO Last administered on 09/18/16 09:27; Admin Dose 81 MG; Start 09/14/16 at 09:00 Promethazine HCl/ Codeine (Phenergan/ Codeine) 10 ml Q6H PRN PO COUGH Last administered on 09/18/16 09:31; Admin Dose 10 ML; Start 09/16/16 at 12:30 LUBA EARLY Sep 18, 2016 18:33
[2016-09-18 20:11] VITALS: BP 132/74; RESP 18
[2016-09-18] MEDS: ATORVASTATIN 20 MG TAB PO SCH (21:16)
[2016-09-19] MEDS: traZODone 50 MG TAB PO SCH ×2 (00:08→20:48)
[2016-09-19] MEDS: morphine 4 MG/ML VIAL IV PRN ×8 (00:10→23:58)
[2016-09-19] MEDS: ALBUTEROL/IPRATROPIUM (NEB) 3 ML AMP HHN SCH ×4 (01:45→20:25)
[2016-09-19] MEDS: PANTOPRAZOLE (EC) 40 MG TAB PO SCH (05:59)
[2016-09-19 06:41] LABS: ADD SCAN DIFF NO
[2016-09-19 06:54] LABS: ABNORMAL IP MESSAGE 1; HEMATOCRIT 29.5 % (42.0-52.0); HEMOGLOBIN 9.2 g/dl (14.0-18.0); MEAN CORPUSCULAR HEMOGLOBIN 31.5 pg (29.0-33.0); MEAN CORPUSCULAR HGB CONC 31.2 g/dl (32.0-37.0); MEAN PLATELET VOLUME 10.7 fl (7.4-10.4); PLATELET COUNT 133 10^3/UL (140-415); RED BLOOD COUNT 2.92 10^6/ul (4.70-6.10); RED CELL DISTRIBUTION WIDTH 15.9 % (11.5-14.5); WHITE BLOOD COUNT 12.3 10^3/ul (4.8-10.8)
[2016-09-19 06:58] LABS: POTASSIUM 3.7 mmol/L (3.5-5.1)
[2016-09-19 07:01] LABS: CALCIUM 8.5 mg/dl (8.4-10.2); CREATININE 1.03 mg/dl (0.61-1.24)
--- NOTE | 2016-09-19 07:34 | RADRPT ---
PROCEDURE: XR Chest. CLINICAL INDICATION: Pneumonia TECHNIQUE: An AP view of the chest was obtained. COMPARISON: Chest x-ray dated 09/16/2016 FINDINGS: There is a left upper extremity PICC line with tip near the junction of the left brachiocephalic vei n and SVC. There is elevation of the right diaphragm. There are right lower lobe interstitial opacities with d ense consolidation of the right upper lobe. There is prominence of the interstitial markings. No pneumothorax is seen. The cardiomediastinal silhouette is mildly enlarged . The osseous structure s demonstrate senescent changes. IMPRESSION: 1. Marked elevation of the right diaphragm. There is multilobar right lung pneumonia with dense co nsolidation of the right upper lobe. Loculated pleural fluid is not excluded. 2. Mild prominence of the left lung interstitial markings, may reflect mild underlying interstitial edema or chronic lung changes. 3. Mild cardiomegaly. RPTAT: HH .Corie Longo MD, MD Date Time Electronically viewed and signed by .oCrie Longo MD, on 09/19/2016 07:34 .G/
[2016-09-19 07:39] VITALS: BP 131/74; RESP 16
[2016-09-19] MEDS: LEVOTHYROXINE 50 MCG TAB PO SCH (07:39)
[2016-09-19] MEDS: ASPIRIN (EC) 81 MG TAB PO SCH (08:37)
[2016-09-19] MEDS: DOCUSATE SODIUM 100 MG CAP PO SCH ×3 (08:37→20:46)
[2016-09-19] MEDS: ESCITALOPRAM 10 MG TAB PO SCH (08:37)
[2016-09-19] MEDS: VORICONAZOLE 200 MG TAB PO SCH ×2 (08:37→20:47)
[2016-09-19] MEDS: morphine (ER) 30 MG TAB PO SCH ×2 (08:38→21:31)
[2016-09-19 10:27] LABS: EOSINOPHILS # 0.1 10^3/ul (0.0-0.5); LYMPHOCYTES # 2.3 10^3/ul (0.8-2.9); NEUTROPHIL # 7.6 10^3/ul (1.6-7.5)
--- NOTE | 2016-09-19 10:47 | CONS ---
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 Diamond in [place] - h/o post-obstructive pneumonia - h/o HTN, CAD, hyperlipidemia - h/o paroxysmal A fib - h/o DVT in LUE - hypothyroidism with elevated TSH level - hypomagnesemia - HIV negative in 2013 - tachycardia recommendations: - repeat CBC in AM - if leukocytosis worsens, will send repeat sputum culture - continue PO voriconazole at the current dose per instruction by Dr. Sanches, his ID specialist. Per Pt, he is supposed to take it for 6 months since the beginning of 04/2016 management d/w Pt Problems: Consultation Date/Type/Reason Admit Date/Time Sep 01, 2016 at 14:47 Initial Consult Date 09/01/16 Type of Consultation: ID Referring Provider: MARYAM FARMER MD 24 HR Interval Summary Constitutional: no complaints Detailed Summary Eyes: no complaints ENT: other (hoarseness), sore throat Respiratory: cough, pleuritic pain, shortness of breath, sputum, wheezing Cardiovascular: no complaints Gastrointestinal: no complaints Genitourinary: no complaints Musculoskeletal: no complaints Skin: no complaints Neurologic: no complaints Exam/Review of Systems Vital Signs Vitals Vital Signs Date Time Temp Pulse Resp B/P Pulse Ox O2 Delivery O2 Flow Rate FiO2 09/19/16 07:54 94 18 94 Nasal Cannula 5.0 09/19/16 07:39 98.3 131/74 Intake and Output 09/18/16 09/18/16 09/19/16 15:00 23:00 07:00 Intake Total 2100 ml Balance 2100 ml Exam Constitutional: alert, obese, oriented, well developed Psych: nl mood/affect, no complaints Head: atraumatic, normocephalic Eyes: nl conjunctiva, nl lids ENMT: nl external ears & nose, nl nasal mucosa & septum, other (horseness) Neck: supple Respiratory: congested cough, crackles/rales, wheezing Cardiovascular: nl pulses, regular rate and rhythm Gastrointestinal: non-tender, soft Extremities: No edema Results Result Diagram: 09/19/16 0610 09/19/16 0610 Results 24 hrs Laboratory Tests Test 09/19/16 06:10 White Blood Count 12.3 H Red Blood Count 2.92 L Hemoglobin 9.2 L Hematocrit 29.5 L Mean Corpuscular Volume 101.0 Mean Corpuscular Hemoglobin 31.5 Mean Corpuscular Hemoglobin Concent 31.2 L Red Cell Distribution Width 15.9 H Platelet Count 133 L Mean Platelet Volume 10.7 H Neutrophils % 62.0 Band Neutrophils % 9.0 H Lymphocytes % 19.0 Monocytes % 8.0 Eosinophils % 1.0 Promyelocytes % 1.0 H Neutrophils # 7.6 H Lymphocytes # 2.3 Monocytes # 1.0 H Eosinophils # 0.1 Promyelocytes # 0.1 Sodium Level 139 Potassium Level 3.7 Chloride Level 96 L Carbon Dioxide Level 33 H Anion Gap 14 Blood Urea Nitrogen 16 Creatinine 1.03 Glucose Level 97 Calcium Level 8.5 Medications Medications Current Medications IV Flush (NS 10 ml) 10 ml PRN PRN IV IV PROTOCOL; Start 08/31/16 at 18:30 Metoprolol Tartrate (Lopressor) 5 mg Q4H PRN IV ELEVATED HEART RATE Last administered on 09/02/16 17:09; Admin Dose 5 MG; Start 09/02/16 at 17:30; Status Future Hold Morphine Sulfate (morphine) 4 mg Q3 PRN IV PAIN Last administered on 09/19/16 07:40; Admin Dose 4 MG; Start 09/05/16 at 17:00 Morphine Sulfate (Ms Contin (Er)) 30 mg BID PO Last administered on 09/19/16 08:38; Admin Dose 30 MG; Start 09/05/16 at 21:00 Docusate Sodium (Colace) 100 mg TID PO Last administered on 09/19/16 08:37; Admin Dose 100 MG; Start 09/06/16 at 21:00 Bisacodyl (Dulcolax) 5 mg DAILY PRN PO CONSTIPATION Last administered on 13:25; Admin Dose 5 MG; Start 09/06/16 at 16:00 Pantoprazole (Protonix Tab) 40 mg DAILY@06 PO Last administered on 09/19/16 05 :59; Admin Dose 40 MG; Start 09/07/16 at 06:00 Atorvastatin Calcium (Lipitor) 20 mg QHS PO Last administered on 09/18/16 21: 16; Admin Dose 20 MG; Start 09/08/16 at 21:00 Docusate Sodium (Colace) 100 mg BID PRN PO CONSTIPATION; Start 09/08/16 at 13: 00 Escitalopram Oxalate (Lexapro) 10 mg DAILY PO Last administered on 09/19/16 08 :37; Admin Dose 10 MG; Start 09/09/16 at 09:00 Senna (Senokot) 1 tab Q12H PRN PO CONSTIPATION Last administered on 09/18/16 18:32; Admin Dose 1 TAB; Start 09/08/16 at 13:00 Trazodone HCl (Desyrel) 50 mg QHS PO Last administered on 09/19/16 00:08; Admin Dose 50 MG; Start 09/08/16 at 21:00 Voriconazole (Vfend) 100 mg BID PO Last administered on 09/19/16 08:37; Admin Dose 100 MG; Start 09/11/16 at 09:00 Filgrastim (Neupogen) 300 mcg DAILY@17 SC Last administered on 09/17/16 18:08 ; Admin Dose 300 MCG; Start 09/12/16 at 18:00 Aspirin (Halfprin) 81 mg DAILY PO Last administered on 09/19/16 08:37; Admin Dose 81 MG; Start 09/14/16 at 09:00 Promethazine HCl/ Codeine (Phenergan/ Codeine) 10 ml Q6H PRN PO COUGH Last administered on 09/18/16 21:14; Admin Dose 10 ML; Start 09/16/16 at 12:30 LUKE CAAL M.D. Sep 19, 2016 10:47
--- NOTE | 2016-09-19 10:49 | CONS ---
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 Diamond in [place]. aspergillus antibody was > 1:64 but aspergillus antigen in serum by EIA was negative during this admission. - h/o post-obstructive pneumonia - h/o HTN, CAD, hyperlipidemia - h/o paroxysmal A fib - h/o DVT in LUE - hypothyroidism with elevated TSH level - hypomagnesemia - HIV negative in 2013 - tachycardia revised recommendations: - repeat CBC in AM - if leukocytosis worsens, will send repeat sputum culture - continue PO voriconazole at the current dose per instruction by Dr. Sanches, his ID specialist. Per Pt, he is supposed to take it for 6 months since the beginning of 04/2016 management d/w Pt Problems: Consultation Date/Type/Reason Admit Date/Time Sep 01, 2016 at 14:47 Initial Consult Date 09/01/16 Type of Consultation: ID Referring Provider: MARYAM FARMER MD Exam/Review of Systems Vital Signs Vitals Vital Signs Date Time Temp Pulse Resp B/P Pulse Ox O2 Delivery O2 Flow Rate FiO2 09/19/16 07:54 94 18 94 Nasal Cannula 5.0 09/19/16 07:39 98.3 131/74 Intake and Output 09/18/16 09/18/16 09/19/16 15:00 23:00 07:00 Intake Total 2100 ml Balance 2100 ml Results Result Diagram: 09/19/16 0610 09/19/16 0610 Results 24 hrs Laboratory Tests Test 09/19/16 06:10 White Blood Count 12.3 H Red Blood Count 2.92 L Hemoglobin 9.2 L Hematocrit 29.5 L Mean Corpuscular Volume 101.0 Mean Corpuscular Hemoglobin 31.5 Mean Corpuscular Hemoglobin Concent 31.2 L Red Cell Distribution Width 15.9 H Platelet Count 133 L Mean Platelet Volume 10.7 H Neutrophils % 62.0 Band Neutrophils % 9.0 H Lymphocytes % 19.0 Monocytes % 8.0 Eosinophils % 1.0 Promyelocytes % 1.0 H Neutrophils # 7.6 H Lymphocytes # 2.3 Monocytes # 1.0 H Eosinophils # 0.1 Promyelocytes # 0.1 Sodium Level 139 Potassium Level 3.7 Chloride Level 96 L Carbon Dioxide Level 33 H Anion Gap 14 Blood Urea Nitrogen 16 Creatinine 1.03 Glucose Level 97 Calcium Level 8.5 Medications Medications Current Medications IV Flush (NS 10 ml) 10 ml PRN PRN IV IV PROTOCOL; Start 08/31/16 at 18:30 Metoprolol Tartrate (Lopressor) 5 mg Q4H PRN IV ELEVATED HEART RATE Last administered on 09/02/16 17:09; Admin Dose 5 MG; Start 09/02/16 at 17:30; Status Future Hold Morphine Sulfate (morphine) 4 mg Q3 PRN IV PAIN Last administered on 09/19/16 07:40; Admin Dose 4 MG; Start 09/05/16 at 17:00 Morphine Sulfate (Ms Contin (Er)) 30 mg BID PO Last administered on 09/19/16 08:38; Admin Dose 30 MG; Start 09/05/16 at 21:00 Docusate Sodium (Colace) 100 mg TID PO Last administered on 09/19/16 08:37; Admin Dose 100 MG; Start 09/06/16 at 21:00 Bisacodyl (Dulcolax) 5 mg DAILY PRN PO CONSTIPATION Last administered on 13:25; Admin Dose 5 MG; Start 09/06/16 at 16:00 Pantoprazole (Protonix Tab) 40 mg DAILY@06 PO Last administered on 09/19/16 05 :59; Admin Dose 40 MG; Start 09/07/16 at 06:00 Atorvastatin Calcium (Lipitor) 20 mg QHS PO Last administered on 09/18/16 21: 16; Admin Dose 20 MG; Start 09/08/16 at 21:00 Docusate Sodium (Colace) 100 mg BID PRN PO CONSTIPATION; Start 09/08/16 at 13: 00 Escitalopram Oxalate (Lexapro) 10 mg DAILY PO Last administered on 09/19/16 08 :37; Admin Dose 10 MG; Start 09/09/16 at 09:00 Senna (Senokot) 1 tab Q12H PRN PO CONSTIPATION Last administered on 09/18/16 18:32; Admin Dose 1 TAB; Start 09/08/16 at 13:00 Trazodone HCl (Desyrel) 50 mg QHS PO Last administered on 09/19/16 00:08; Admin Dose 50 MG; Start 09/08/16 at 21:00 Voriconazole (Vfend) 100 mg BID PO Last administered on 09/19/16 08:37; Admin Dose 100 MG; Start 09/11/16 at 09:00 Filgrastim (Neupogen) 300 mcg DAILY@17 SC Last administered on 09/17/16 18:08 ; Admin Dose 300 MCG; Start 09/12/16 at 18:00 Aspirin (Halfprin) 81 mg DAILY PO Last administered on 09/19/16 08:37; Admin Dose 81 MG; Start 09/14/16 at 09:00 Promethazine HCl/ Codeine (Phenergan/ Codeine) 10 ml Q6H PRN PO COUGH Last administered on 09/18/16 21:14; Admin Dose 10 ML; Start 09/16/16 at 12:30 LUKE CAAL M.D. Sep 19, 2016 10:49
[2016-09-19] MEDS: BISACODYL (EC) 5 MG TAB PO PRN (11:43)
[2016-09-19] MEDS: SENNA TAB PO PRN (11:43)
--- NOTE | 2016-09-19 12:46 | CONS ---
Date/Time of Note Date/Time of Note DATE: 09/19/16 TIME: 12:43 Assessment/Plan Assessment/Plan Additional Assessment/Plan 1. Cardiac arrhythmia, with currently rhythm most consistent with sinus tachycardia, but also having pauses. Negative troponin x 3/TSH elevated-no recurrence/reasonable HR control 2. Abnormal electrocardiogram. trop negative x3/NL EF by echo this admit 3. Hypertension, labile- stable now. 4. Dyslipidemia. 5. Pneumonia and bronchitis - on anti-Bx, ID follows 6. Lung cancer- h/o chemo, oncology follows 7. Hypothyroidism. 8. Anemia. 9. Thrombocytopenia, severe- no active bleeding now. 10. Prior hemoptysis. 11.BNP-elevated 12.PNA Consultation Date/Type/Reason Admit Date/Time Sep 01, 2016 at 14:47 Initial Consult Date 09/01/16 Type of Consultation: ID Referring Provider: MARYAM FARMER MD 24 HR Interval Summary Free Text/Dictation No acute change - con't anti-Bx Rx. ROS: No fever, no chills, no nausea, no vomiting, no diarrhea/constipation No recent weight changes No chest pain, no PND, no orthopnea No dizziness, blurred vision No thirst, no heat or cold intolerance (chronic SOB) Exam/Review of Systems Vital Signs Vitals Vital Signs Date Time Temp Pulse Resp B/P Pulse Ox O2 Delivery O2 Flow Rate FiO2 09/19/16 08:10 Nasal Cannula 3.0 09/19/16 07:54 94 18 94 09/19/16 07:39 98.3 131/74 Intake and Output 09/18/16 09/18/16 09/19/16 15:00 23:00 07:00 Intake Total 2100 ml Balance 2100 ml Exam General: WN/WD/NAD, AOx 3 HEENT: Unicetric/atraumatic/EOMI (follow commands) NECK: JVD elevated, no thyromegaly Lymph: no lymphadenopathy HEART: regular with no S3, II/ systolic murmur at apex LUNGS: Coarse sounds ABD: soft, NT, ND, +BS : Intact Neuro: non focal SKIN: chronic changes EXT: trace edema Results Result Diagram: 09/19/16 0610 09/19/16 0610 Results 24 hrs Laboratory Tests Test 09/19/16 06:10 White Blood Count 12.3 H Red Blood Count 2.92 L Hemoglobin 9.2 L Hematocrit 29.5 L Mean Corpuscular Volume 101.0 Mean Corpuscular Hemoglobin 31.5 Mean Corpuscular Hemoglobin Concent 31.2 L Red Cell Distribution Width 15.9 H Platelet Count 133 L Mean Platelet Volume 10.7 H Neutrophils % 62.0 Band Neutrophils % 9.0 H Lymphocytes % 19.0 Monocytes % 8.0 Eosinophils % 1.0 Promyelocytes % 1.0 H Neutrophils # 7.6 H Lymphocytes # 2.3 Monocytes # 1.0 H Eosinophils # 0.1 Promyelocytes # 0.1 Sodium Level 139 Potassium Level 3.7 Chloride Level 96 L Carbon Dioxide Level 33 H Anion Gap 14 Blood Urea Nitrogen 16 Creatinine 1.03 Glucose Level 97 Calcium Level 8.5 Medications Medications Current Medications IV Flush (NS 10 ml) 10 ml PRN PRN IV IV PROTOCOL Last administered on 11:28; Admin Dose 10 ML; Start 08/31/16 at 18:30 Metoprolol Tartrate (Lopressor) 5 mg Q4H PRN IV ELEVATED HEART RATE Last administered on 09/02/16 17:09; Admin Dose 5 MG; Start 09/02/16 at 17:30; Status Future Hold Morphine Sulfate (morphine) 4 mg Q3 PRN IV PAIN Last administered on 09/19/16 11:25; Admin Dose 4 MG; Start 09/05/16 at 17:00 Morphine Sulfate (Ms Contin (Er)) 30 mg BID PO Last administered on 09/19/16 08:38; Admin Dose 30 MG; Start 09/05/16 at 21:00 Docusate Sodium (Colace) 100 mg TID PO Last administered on 09/19/16 08:37; Admin Dose 100 MG; Start 09/06/16 at 21:00 Bisacodyl (Dulcolax) 5 mg DAILY PRN PO CONSTIPATION Last administered on 11:43; Admin Dose 5 MG; Start 09/06/16 at 16:00 Pantoprazole (Protonix Tab) 40 mg DAILY@06 PO Last administered on 09/19/16 05 :59; Admin Dose 40 MG; Start 09/07/16 at 06:00 Atorvastatin Calcium (Lipitor) 20 mg QHS PO Last administered on 09/18/16 21: 16; Admin Dose 20 MG; Start 09/08/16 at 21:00 Docusate Sodium (Colace) 100 mg BID PRN PO CONSTIPATION; Start 09/08/16 at 13: 00 Escitalopram Oxalate (Lexapro) 10 mg DAILY PO Last administered on 09/19/16 08 :37; Admin Dose 10 MG; Start 09/09/16 at 09:00 Senna (Senokot) 1 tab Q12H PRN PO CONSTIPATION Last administered on 09/19/16 11:43; Admin Dose 1 TAB; Start 09/08/16 at 13:00 Trazodone HCl (Desyrel) 50 mg QHS PO Last administered on 09/19/16 00:08; Admin Dose 50 MG; Start 09/08/16 at 21:00 Voriconazole (Vfend) 100 mg BID PO Last administered on 09/19/16 08:37; Admin Dose 100 MG; Start 09/11/16 at 09:00 Filgrastim (Neupogen) 300 mcg DAILY@17 SC Last administered on 09/17/16 18:08 ; Admin Dose 300 MCG; Start 09/12/16 at 18:00 Aspirin (Halfprin) 81 mg DAILY PO Last administered on 09/19/16 08:37; Admin Dose 81 MG; Start 09/14/16 at 09:00 Promethazine HCl/ Codeine (Phenergan/ Codeine) 10 ml Q6H PRN PO COUGH Last administered on 09/18/16 21:14; Admin Dose 10 ML; Start 09/16/16 at 12:30 FRANCIS ESPINAL MD Sep 19, 2016 12:46
[2016-09-19] MEDS: FILGRASTIM 300 MCG INJ SC SCH (17:00)
--- NOTE | 2016-09-19 18:27 | PN ---
Date/Time of Note Date/Time of Note DATE: 09/19/16 TIME: 18:26 Assessment/Plan VTE Prophylaxis VTE Prophylaxis Intervention: SCD's Lines/Catheters IV [facility]ter [facility]from [facility]): PICC Line Central line still needed: Yes Assessment/Plan Chief Complaint/Hosp Course Assessment/Plan - S/p severe sepsis due to pneumonia/bronchitis, Dr. Fraga group is following infection disease consultation. - Advanced non-small cell lung CA, on biweekly chemotherapy infusion x2 years, Dr. Scanlon is following in oncology consultation. - Acute respiratory failure, resolving. Dr. Castanon is following in pulmonology consultation. - Pancytopenia due to chemotherapy -Acute on chronic diastolic congestive heart failure, continue gentle diuresis, continue to monitor electrolytes. -Cardiac arrhythmia, Dr. Gaytan is following in cardiology consultation. 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 Further recommendations based on clinical course. Plan of care discussed with Dr. Lincoln. Problems: Subjective 24 Hr Interval Summary Free Text/Dictation Patient was increased leukocytosis, no fever, persistent cough. Exam/Review of Systems Vital Signs Vitals Vital Signs Date Time Temp Pulse Resp B/P Pulse Ox O2 Delivery O2 Flow Rate FiO2 09/19/16 13:09 96 20 95 Nasal Cannula 5.0 09/19/16 07:39 98.3 131/74 Intake and Output 09/18/16 09/18/16 09/19/16 15:00 23:00 07:00 Intake Total 2100 ml Balance 2100 ml Exam Constitutional: alert, oriented Psych: nl mood/affect, no complaints Head: atraumatic, normocephalic Eyes: nl conjunctiva ENMT: nl external ears & nose Neck: non-tender, supple Respiratory: diminished breath sounds, wheezing Cardiovascular: nl pulses, regular rate and rhythm Gastrointestinal: non-tender, soft Musculoskeletal: nl extremities to inspection Extremities: normal pulses Neurological: MEDICAL INSURANCE CODING SPECIALIST II-XII intact Results Result Diagram: 09/19/16 0610 09/19/16 0610 Results 24 hrs Laboratory Tests Test 09/19/16 06:10 White Blood Count 12.3 H Red Blood Count 2.92 L Hemoglobin 9.2 L Hematocrit 29.5 L Mean Corpuscular Volume 101.0 Mean Corpuscular Hemoglobin 31.5 Mean Corpuscular Hemoglobin Concent 31.2 L Red Cell Distribution Width 15.9 H Platelet Count 133 L Mean Platelet Volume 10.7 H Neutrophils % 62.0 Band Neutrophils % 9.0 H Lymphocytes % 19.0 Monocytes % 8.0 Eosinophils % 1.0 Promyelocytes % 1.0 H Neutrophils # 7.6 H Lymphocytes # 2.3 Monocytes # 1.0 H Eosinophils # 0.1 Promyelocytes # 0.1 Sodium Level 139 Potassium Level 3.7 Chloride Level 96 L Carbon Dioxide Level 33 H Anion Gap 14 Blood Urea Nitrogen 16 Creatinine 1.03 Glucose Level 97 Calcium Level 8.5 Medications Medications Current Medications IV Flush (NS 10 ml) 10 ml PRN PRN IV IV PROTOCOL Last administered on 11:28; Admin Dose 10 ML; Start 08/31/16 at 18:30 Metoprolol Tartrate (Lopressor) 5 mg Q4H PRN IV ELEVATED HEART RATE Last administered on 09/02/16 17:09; Admin Dose 5 MG; Start 09/02/16 at 17:30; Status Future Hold Morphine Sulfate (morphine) 4 mg Q3 PRN IV PAIN Last administered on 09/19/16 17:49; Admin Dose 4 MG; Start 09/05/16 at 17:00 Morphine Sulfate (Ms Contin (Er)) 30 mg BID PO Last administered on 09/19/16 08:38; Admin Dose 30 MG; Start 09/05/16 at 21:00 Docusate Sodium (Colace) 100 mg TID PO Last administered on 09/19/16 14:34; Admin Dose 100 MG; Start 09/06/16 at 21:00 Bisacodyl (Dulcolax) 5 mg DAILY PRN PO CONSTIPATION Last administered on 11:43; Admin Dose 5 MG; Start 09/06/16 at 16:00 Pantoprazole (Protonix Tab) 40 mg DAILY@06 PO Last administered on 09/19/16 05 :59; Admin Dose 40 MG; Start 09/07/16 at 06:00 Atorvastatin Calcium (Lipitor) 20 mg QHS PO Last administered on 09/18/16 21: 16; Admin Dose 20 MG; Start 09/08/16 at 21:00 Docusate Sodium (Colace) 100 mg BID PRN PO CONSTIPATION; Start 09/08/16 at 13: 00 Escitalopram Oxalate (Lexapro) 10 mg DAILY PO Last administered on 09/19/16 08 :37; Admin Dose 10 MG; Start 09/09/16 at 09:00 Senna (Senokot) 1 tab Q12H PRN PO CONSTIPATION Last administered on 09/19/16 11:43; Admin Dose 1 TAB; Start 09/08/16 at 13:00 Trazodone HCl (Desyrel) 50 mg QHS PO Last administered on 09/19/16 00:08; Admin Dose 50 MG; Start 09/08/16 at 21:00 Voriconazole (Vfend) 100 mg BID PO Last administered on 09/19/16 08:37; Admin Dose 100 MG; Start 09/11/16 at 09:00 Filgrastim (Neupogen) 300 mcg DAILY@17 SC Last administered on 09/17/16 18:08 ; Admin Dose 300 MCG; Start 09/12/16 at 18:00 Aspirin (Halfprin) 81 mg DAILY PO Last administered on 09/19/16 08:37; Admin Dose 81 MG; Start 09/14/16 at 09:00 Promethazine HCl/ Codeine (Phenergan/ Codeine) 10 ml Q6H PRN PO COUGH Last administered on 09/18/16 21:14; Admin Dose 10 ML; Start 09/16/16 at 12:30 LUBA EARLY Sep 19, 2016 18:27
[2016-09-19 19:43] VITALS: BP 128/67; RESP 20
[2016-09-19] MEDS: ATORVASTATIN 20 MG TAB PO SCH (20:46)
[2016-09-20] MEDS: PROMETHAZINE/CODEINE 5ML CUP PO PRN ×4 (00:08→21:19)
[2016-09-20] MEDS: ALBUTEROL/IPRATROPIUM (NEB) 3 ML AMP HHN SCH ×4 (02:00→20:50)
[2016-09-20] MEDS: morphine 4 MG/ML VIAL IV PRN ×5 (05:13→21:52)
[2016-09-20 06:02] LABS: ADD SCAN DIFF NO
[2016-09-20] MEDS: PANTOPRAZOLE (EC) 40 MG TAB PO SCH (06:06)
[2016-09-20] MEDS: LEVOTHYROXINE 50 MCG TAB PO SCH (06:07)
[2016-09-20 06:22] LABS: ABNORMAL IP MESSAGE 1; BASOPHILS % 0.3 % (0.0-2.0); EOSINOPHILS # 0.1 10^3/ul (0.0-0.5); EOSINOPHILS % 1.6 % (0.0-7.0); HEMATOCRIT 33.4 % (42.0-52.0); HEMOGLOBIN 10.1 g/dl (14.0-18.0); LYMPHOCYTES # 0.9 10^3/ul (0.8-2.9); LYMPHOCYTES % 11.6 % (15.0-51.0); MEAN CORPUSCULAR HEMOGLOBIN 30.7 pg (29.0-33.0); MEAN CORPUSCULAR HGB CONC 30.2 g/dl (32.0-37.0); MEAN CORPUSCULAR VOLUME 101.5 fl (82.0-101.0); MEAN PLATELET VOLUME 10.3 fl (7.4-10.4); MONOCYTE # 0.9 10^3/ul (0.3-0.9); MONOCYTES % 11.8 % (0.0-11.0); NEUTROPHIL # 4.9 10^3/ul (1.6-7.5); NEUTROPHILS % 66.6 % (39.0-77.0); PLATELET COUNT 133 10^3/UL (140-415); RED BLOOD COUNT 3.29 10^6/ul (4.70-6.10); RED CELL DISTRIBUTION WIDTH 15.9 % (11.5-14.5); WHITE BLOOD COUNT 7.3 10^3/ul (4.8-10.8)
[2016-09-20 08:21] VITALS: BP 117/78; RESP 18
[2016-09-20] MEDS: DOCUSATE SODIUM 100 MG CAP PO SCH ×3 (08:54→21:15)
[2016-09-20] MEDS: ASPIRIN (EC) 81 MG TAB PO SCH (08:54)
[2016-09-20] MEDS: morphine (ER) 30 MG TAB PO SCH ×2 (08:55→21:15)
[2016-09-20] MEDS: ESCITALOPRAM 10 MG TAB PO SCH (08:55)
[2016-09-20] MEDS: VORICONAZOLE 200 MG TAB PO SCH ×2 (08:55→21:15)
--- NOTE | 2016-09-20 11:05 | CONS ---
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 Diamond in [place]. aspergillus antibody was > 1:64 but aspergillus antigen in serum by EIA was negative during this admission. - h/o post-obstructive pneumonia - h/o HTN, CAD, hyperlipidemia - h/o paroxysmal A fib - h/o DVT in LUE - hypothyroidism with elevated TSH level - hypomagnesemia - HIV negative in 2013 - tachycardia revised recommendations: - repeat sputum culture today, CBC in AM - continue PO voriconazole at the current dose per instruction by Dr. Sanches, his ID specialist. Per Pt, he is supposed to take it for 6 months since the beginning of 04/2016 management d/w Pt, his RN Problems: Consultation Date/Type/Reason Admit Date/Time Sep 01, 2016 at 14:47 Initial Consult Date 09/01/16 Type of Consultation: ID Referring Provider: MARYAM FARMER MD 24 HR Interval Summary Constitutional: no complaints Detailed Summary Eyes: no complaints ENT: no complaints Respiratory: cough, shortness of breath, sputum, No pain Cardiovascular: no complaints Gastrointestinal: no complaints Genitourinary: no complaints Musculoskeletal: no complaints Skin: no complaints Exam/Review of Systems Vital Signs Vitals Vital Signs Date Time Temp Pulse Resp B/P Pulse Ox O2 Delivery O2 Flow Rate FiO2 09/20/16 08:21 98.1 88 18 117/78 09/20/16 08:05 96 Nasal Cannula 2.0 Intake and Output 09/19/16 09/19/16 09/20/16 15:00 23:00 07:00 Intake Total 2120 ml 360 ml Balance 2120 ml 360 ml Exam Constitutional: alert, obese, oriented, well developed Psych: nl mood/affect, no complaints Head: normocephalic Eyes: nl conjunctiva, nl lids ENMT: nl external ears & nose, nl nasal mucosa & septum Neck: supple Respiratory: congested cough, wheezing Cardiovascular: regular rate and rhythm Gastrointestinal: non-tender, soft Musculoskeletal: nl extremities to inspection Extremities: No edema Results Result Diagram: 09/20/16 0501 09/19/16 0610 Results 24 hrs Laboratory Tests Test 09/20/16 05:01 White Blood Count 7.3 # Red Blood Count 3.29 L Hemoglobin 10.1 L Hematocrit 33.4 L Mean Corpuscular Volume 101.5 H Mean Corpuscular Hemoglobin 30.7 Mean Corpuscular Hemoglobin Concent 30.2 L Red Cell Distribution Width 15.9 H Platelet Count 133 L Mean Platelet Volume 10.3 Neutrophils % 66.6 Lymphocytes % 11.6 L Monocytes % 11.8 H Eosinophils % 1.6 Basophils % 0.3 Nucleated Red Blood Cells % 0.0 Neutrophils # 4.9 Lymphocytes # 0.9 Monocytes # 0.9 Eosinophils # 0.1 Basophils # 0.0 Nucleated Red Blood Cells # 0.0 Medications Medications Current Medications IV Flush (NS 10 ml) 10 ml PRN PRN IV IV PROTOCOL Last administered on 11:28; Admin Dose 10 ML; Start 08/31/16 at 18:30 Metoprolol Tartrate (Lopressor) 5 mg Q4H PRN IV ELEVATED HEART RATE Last administered on 09/02/16 17:09; Admin Dose 5 MG; Start 09/02/16 at 17:30; Status Future Hold Morphine Sulfate (morphine) 4 mg Q3 PRN IV PAIN Last administered on 09/20/16 10:32; Admin Dose 4 MG; Start 09/05/16 at 17:00 Morphine Sulfate (Ms Contin (Er)) 30 mg BID PO Last administered on 09/20/16 08:55; Admin Dose 30 MG; Start 09/05/16 at 21:00 Docusate Sodium (Colace) 100 mg TID PO Last administered on 09/20/16 08:54; Admin Dose 100 MG; Start 09/06/16 at 21:00 Bisacodyl (Dulcolax) 5 mg DAILY PRN PO CONSTIPATION Last administered on 11:43; Admin Dose 5 MG; Start 09/06/16 at 16:00 Pantoprazole (Protonix Tab) 40 mg DAILY@06 PO Last administered on 09/20/16 06 :06; Admin Dose 40 MG; Start 09/07/16 at 06:00 Atorvastatin Calcium (Lipitor) 20 mg QHS PO Last administered on 09/19/16 20: 46; Admin Dose 20 MG; Start 09/08/16 at 21:00 Docusate Sodium (Colace) 100 mg BID PRN PO CONSTIPATION; Start 09/08/16 at 13: 00 Escitalopram Oxalate (Lexapro) 10 mg DAILY PO Last administered on 09/20/16 08 :55; Admin Dose 10 MG; Start 09/09/16 at 09:00 Senna (Senokot) 1 tab Q12H PRN PO CONSTIPATION Last administered on 09/19/16 11:43; Admin Dose 1 TAB; Start 09/08/16 at 13:00 Trazodone HCl (Desyrel) 50 mg QHS PO Last administered on 09/19/16 20:48; Admin Dose 50 MG; Start 09/08/16 at 21:00 Voriconazole (Vfend) 100 mg BID PO Last administered on 09/20/16 08:55; Admin Dose 100 MG; Start 09/11/16 at 09:00 Filgrastim (Neupogen) 300 mcg DAILY@17 SC Last administered on 09/17/16 18:08 ; Admin Dose 300 MCG; Start 09/12/16 at 18:00 Aspirin (Halfprin) 81 mg DAILY PO Last administered on 09/20/16 08:54; Admin Dose 81 MG; Start 09/14/16 at 09:00 Promethazine HCl/ Codeine (Phenergan/ Codeine) 10 ml Q6H PRN PO COUGH Last administered on 09/20/16 06:06; Admin Dose 10 ML; Start 09/16/16 at 12:30 LUKE CAAL M.D. Sep 20, 2016 11:05
--- NOTE | 2016-09-20 13:45 | CONS ---
Date/Time of Note Date/Time of Note DATE: 09/20/16 TIME: 13:42 Assessment/Plan Assessment/Plan Chief Complaint/Hosp Course IMPRESSION: 1. Cardiac arrhythmia, with currently rhythm most consistent with sinus tachycardia, but also having pauses. Negative troponin x 3/TSH elevated-no recurrence/reasonable HR control 2. Abnormal electrocardiogram. trop negative x3/NL EF by echo this admit 3. Hypertension, labile. 4. Dyslipidemia. 5. Pneumonia and bronchitis. 6. Lung cancer. 7. Hypothyroidism. 8. Anemia. 9. Thrombocytopenia-now improved 10. Prior hemoptysis. 11.BNP-elevated 12.PNA Recc: -Now med-surg -Continue statin/asa -Contine voriconazole -Follow volume status closely with spot dosing of lasix as necessary and thus will give dose today -Onc following Problems: Consultation Date/Type/Reason Admit Date/Time Sep 01, 2016 at 14:47 Initial Consult Date 09/01/16 Type of Consultation: Cardiology Reason for Consultation cardiac arrythmia Referring Provider: MARYAM FARMER MD Exam/Review of Systems Vital Signs Vitals Vital Signs Date Time Temp Pulse Resp B/P Pulse Ox O2 Delivery O2 Flow Rate FiO2 09/20/16 08:21 98.1 88 18 117/78 09/20/16 08:05 96 Nasal Cannula 2.0 Intake and Output 09/19/16 09/19/16 09/20/16 15:00 23:00 07:00 Intake Total 2120 ml 360 ml Balance 2120 ml 360 ml Exam Review of Systems: CONSTITUTIONAL: No fevers, chills. PULMONARY: ongoing sob CARDIOVASCULAR: No chest pain/palpitations GASTROINTESTINAL: No nausea/vomiting. GENITOURINARY: No hematuria/dysuria. MUSCULOSKELETAL: No myagias/arthalgias. PSYCHIATRIC: The patient denies depression. NEUROLOGIC: No weakness Constitutional: alert Psych: no complaints Head: normocephalic ENMT: mucosa pink and moist Neck: jvd (9 cm water), supple Respiratory: other (exp wheezing/decreased air movement throughout) Cardiovascular: regular rate and rhythm Gastrointestinal: non-tender, soft Musculoskeletal: muscle tone (normal) Extremities: edema (none) Neurological: other (No focal deficits) Results Result Diagram: 09/20/16 0501 09/19/16 0610 Results 24 hrs Laboratory Tests Test 09/20/16 05:01 White Blood Count 7.3 # Red Blood Count 3.29 L Hemoglobin 10.1 L Hematocrit 33.4 L Mean Corpuscular Volume 101.5 H Mean Corpuscular Hemoglobin 30.7 Mean Corpuscular Hemoglobin Concent 30.2 L Red Cell Distribution Width 15.9 H Platelet Count 133 L Mean Platelet Volume 10.3 Neutrophils % 66.6 Lymphocytes % 11.6 L Monocytes % 11.8 H Eosinophils % 1.6 Basophils % 0.3 Nucleated Red Blood Cells % 0.0 Neutrophils # 4.9 Lymphocytes # 0.9 Monocytes # 0.9 Eosinophils # 0.1 Basophils # 0.0 Nucleated Red Blood Cells # 0.0 Medications Medications Current Medications IV Flush (NS 10 ml) 10 ml PRN PRN IV IV PROTOCOL Last administered on 11:28; Admin Dose 10 ML; Start 08/31/16 at 18:30 Metoprolol Tartrate (Lopressor) 5 mg Q4H PRN IV ELEVATED HEART RATE Last administered on 09/02/16 17:09; Admin Dose 5 MG; Start 09/02/16 at 17:30; Status Future Hold Morphine Sulfate (morphine) 4 mg Q3 PRN IV PAIN Last administered on 09/20/16 10:32; Admin Dose 4 MG; Start 09/05/16 at 17:00 Morphine Sulfate (Ms Contin (Er)) 30 mg BID PO Last administered on 09/20/16 08:55; Admin Dose 30 MG; Start 09/05/16 at 21:00 Docusate Sodium (Colace) 100 mg TID PO Last administered on 09/20/16 13:14; Admin Dose 100 MG; Start 09/06/16 at 21:00 Bisacodyl (Dulcolax) 5 mg DAILY PRN PO CONSTIPATION Last administered on 11:43; Admin Dose 5 MG; Start 09/06/16 at 16:00 Pantoprazole (Protonix Tab) 40 mg DAILY@06 PO Last administered on 09/20/16 06 :06; Admin Dose 40 MG; Start 09/07/16 at 06:00 Atorvastatin Calcium (Lipitor) 20 mg QHS PO Last administered on 09/19/16 20: 46; Admin Dose 20 MG; Start 09/08/16 at 21:00 Docusate Sodium (Colace) 100 mg BID PRN PO CONSTIPATION; Start 09/08/16 at 13: 00 Escitalopram Oxalate (Lexapro) 10 mg DAILY PO Last administered on 09/20/16 08 :55; Admin Dose 10 MG; Start 09/09/16 at 09:00 Senna (Senokot) 1 tab Q12H PRN PO CONSTIPATION Last administered on 09/19/16 11:43; Admin Dose 1 TAB; Start 09/08/16 at 13:00 Trazodone HCl (Desyrel) 50 mg QHS PO Last administered on 09/19/16 20:48; Admin Dose 50 MG; Start 09/08/16 at 21:00 Voriconazole (Vfend) 100 mg BID PO Last administered on 09/20/16 08:55; Admin Dose 100 MG; Start 09/11/16 at 09:00 Filgrastim (Neupogen) 300 mcg DAILY@17 SC Last administered on 09/17/16 18:08 ; Admin Dose 300 MCG; Start 09/12/16 at 18:00 Aspirin (Halfprin) 81 mg DAILY PO Last administered on 09/20/16 08:54; Admin Dose 81 MG; Start 09/14/16 at 09:00 Promethazine HCl/ Codeine (Phenergan/ Codeine) 10 ml Q6H PRN PO COUGH Last administered on 09/20/16 13:23; Admin Dose 10 ML; Start 09/16/16 at 12:30 MARIAA ÁLVAREZ Sep 20, 2016 13:45
[2016-09-20] MEDS ORDERED: FUROSEMIDE 20 MG INJ IV ONE (14:00)
--- NOTE | 2016-09-20 15:08 | PN ---
Date/Time of Note Date/Time of Note DATE: 09/20/16 TIME: 15:05 Assessment/Plan VTE Prophylaxis VTE Prophylaxis Intervention: SCD's Lines/Catheters IV C[facility]ter Type (from [facility] PICC Line Central line still needed: Yes Assessment/Plan Chief Complaint/Hosp Course Assessment/Plan - S/p severe sepsis due to pneumonia/bronchitis, Dr. Fraga group is following infection disease consultation. - Advanced non-small cell lung CA, on biweekly chemotherapy infusion x2 years, Dr. Scanlon is following in oncology consultation. - Acute respiratory failure, resolving. Dr. Castanon is following in pulmonology consultation. - Pancytopenia due to chemotherapy -Acute on chronic diastolic congestive heart failure, continue gentle diuresis, continue to monitor electrolytes. -Cardiac arrhythmia, Dr. Gaytan is following in cardiology consultation. 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 Further recommendations based on clinical course. Plan of care discussed with Dr. Lincoln. Problems: Subjective 24 Hr Interval Summary Free Text/Dictation Patient's continues to have productive cough shortness of breath on exertion and wheezing, Exam/Review of Systems Vital Signs Vitals Vital Signs Date Time Temp Pulse Resp B/P Pulse Ox O2 Delivery O2 Flow Rate FiO2 09/20/16 13:46 2.0 09/20/16 13:46 90 18 96 Nasal Cannula 09/20/16 08:21 98.1 117/78 Intake and Output 09/19/16 09/19/16 09/20/16 14:59 22:59 06:59 Intake Total 2120 ml 360 ml Balance 2120 ml 360 ml Exam Constitutional: alert, oriented Psych: nl mood/affect, no complaints Head: atraumatic, normocephalic Eyes: nl conjunctiva ENMT: nl external ears & nose Neck: non-tender, supple Respiratory: diminished breath sounds, wheezing Cardiovascular: nl pulses, regular rate and rhythm Gastrointestinal: non-tender, soft Musculoskeletal: nl extremities to inspection Extremities: normal pulses Neurological: FIREBRICK LAYER II-XII intact Results Result Diagram: 09/20/16 0501 09/19/16 0610 Results 24 hrs Laboratory Tests Test 09/20/16 05:01 White Blood Count 7.3 # Red Blood Count 3.29 L Hemoglobin 10.1 L Hematocrit 33.4 L Mean Corpuscular Volume 101.5 H Mean Corpuscular Hemoglobin 30.7 Mean Corpuscular Hemoglobin Concent 30.2 L Red Cell Distribution Width 15.9 H Platelet Count 133 L Mean Platelet Volume 10.3 Neutrophils % 66.6 Lymphocytes % 11.6 L Monocytes % 11.8 H Eosinophils % 1.6 Basophils % 0.3 Nucleated Red Blood Cells % 0.0 Neutrophils # 4.9 Lymphocytes # 0.9 Monocytes # 0.9 Eosinophils # 0.1 Basophils # 0.0 Nucleated Red Blood Cells # 0.0 Medications Medications Current Medications IV Flush (NS 10 ml) 10 ml PRN PRN IV IV PROTOCOL Last administered on 11:28; Admin Dose 10 ML; Start 08/31/16 at 18:30 Metoprolol Tartrate (Lopressor) 5 mg Q4H PRN IV ELEVATED HEART RATE Last administered on 09/02/16 17:09; Admin Dose 5 MG; Start 09/02/16 at 17:30; Status Future Hold Morphine Sulfate (morphine) 4 mg Q3 PRN IV PAIN Last administered on 09/20/16 10:32; Admin Dose 4 MG; Start 09/05/16 at 17:00 Morphine Sulfate (Ms Contin (Er)) 30 mg BID PO Last administered on 09/20/16 08:55; Admin Dose 30 MG; Start 09/05/16 at 21:00 Docusate Sodium (Colace) 100 mg TID PO Last administered on 09/20/16 13:14; Admin Dose 100 MG; Start 09/06/16 at 21:00 Bisacodyl (Dulcolax) 5 mg DAILY PRN PO CONSTIPATION Last administered on 11:43; Admin Dose 5 MG; Start 09/06/16 at 16:00 Pantoprazole (Protonix Tab) 40 mg DAILY@06 PO Last administered on 09/20/16 06 :06; Admin Dose 40 MG; Start 09/07/16 at 06:00 Atorvastatin Calcium (Lipitor) 20 mg QHS PO Last administered on 09/19/16 20: 46; Admin Dose 20 MG; Start 09/08/16 at 21:00 Docusate Sodium (Colace) 100 mg BID PRN PO CONSTIPATION; Start 09/08/16 at 13: 00 Escitalopram Oxalate (Lexapro) 10 mg DAILY PO Last administered on 09/20/16 08 :55; Admin Dose 10 MG; Start 09/09/16 at 09:00 Senna (Senokot) 1 tab Q12H PRN PO CONSTIPATION Last administered on 09/19/16 11:43; Admin Dose 1 TAB; Start 09/08/16 at 13:00 Trazodone HCl (Desyrel) 50 mg QHS PO Last administered on 09/19/16 20:48; Admin Dose 50 MG; Start 09/08/16 at 21:00 Voriconazole (Vfend) 100 mg BID PO Last administered on 09/20/16 08:55; Admin Dose 100 MG; Start 09/11/16 at 09:00 Filgrastim (Neupogen) 300 mcg DAILY@17 SC Last administered on 09/17/16 18:08 ; Admin Dose 300 MCG; Start 09/12/16 at 18:00 Aspirin (Halfprin) 81 mg DAILY PO Last administered on 09/20/16 08:54; Admin Dose 81 MG; Start 09/14/16 at 09:00 Promethazine HCl/ Codeine (Phenergan/ Codeine) 10 ml Q6H PRN PO COUGH Last administered on 09/20/16 13:23; Admin Dose 10 ML; Start 09/16/16 at 12:30 LUBA EARLY Sep 20, 2016 15:08
[2016-09-20] MEDS: FILGRASTIM 300 MCG INJ SC SCH (17:56)
[2016-09-20 20:02] VITALS: BP 132/76; RESP 20
[2016-09-20] MEDS: ATORVASTATIN 20 MG TAB PO SCH (21:15)
[2016-09-20] MEDS: traZODone 50 MG TAB PO SCH (21:15)
[2016-09-21] MEDS: ALBUTEROL/IPRATROPIUM (NEB) 3 ML AMP HHN SCH ×4 (02:00→21:02)
[2016-09-21] MEDS: morphine 4 MG/ML VIAL IV PRN ×6 (04:19→21:48)
[2016-09-21] MEDS: PROMETHAZINE/CODEINE 5ML CUP PO PRN ×2 (04:26→13:25)
[2016-09-21 05:49] LABS: ADD SCAN DIFF NO
[2016-09-21 05:53] LABS: BASOPHILS % 0.1 % (0.0-2.0); EOSINOPHILS # 0.1 10^3/ul (0.0-0.5); EOSINOPHILS % 0.6 % (0.0-7.0); HEMATOCRIT 30.9 % (42.0-52.0); HEMOGLOBIN 9.5 g/dl (14.0-18.0); LYMPHOCYTES % 4.5 % (15.0-51.0); MEAN CORPUSCULAR HGB CONC 30.7 g/dl (32.0-37.0); MEAN PLATELET VOLUME 10.3 fl (7.4-10.4); MONOCYTES % 4.6 % (0.0-11.0); NEUTROPHIL # 19.2 10^3/ul (1.6-7.5); NEUTROPHILS % 88.3 % (39.0-77.0); PLATELET COUNT 141 10^3/UL (140-415); RED BLOOD COUNT 3.06 10^6/ul (4.70-6.10); RED CELL DISTRIBUTION WIDTH 15.9 % (11.5-14.5); WHITE BLOOD COUNT 21.7 10^3/ul (4.8-10.8)
[2016-09-21] MEDS: LEVOTHYROXINE 50 MCG TAB PO SCH (06:06)
[2016-09-21] MEDS: PANTOPRAZOLE (EC) 40 MG TAB PO SCH (06:06)
[2016-09-21 06:11] LABS: CALCIUM 8.6 mg/dl (8.4-10.2); CREATININE 1.07 mg/dl (0.61-1.24); POTASSIUM 3.8 mmol/L (3.5-5.1)
[2016-09-21 08:17] VITALS: BP 115/76; RESP 18
[2016-09-21] MEDS: DOCUSATE SODIUM 100 MG CAP PO SCH ×3 (08:51→20:30)
[2016-09-21] MEDS: ESCITALOPRAM 10 MG TAB PO SCH (08:51)
[2016-09-21] MEDS: ASPIRIN (EC) 81 MG TAB PO SCH (08:52)
[2016-09-21] MEDS: morphine (ER) 30 MG TAB PO SCH ×2 (08:52→20:31)
[2016-09-21] MEDS: VORICONAZOLE 200 MG TAB PO SCH ×2 (08:52→20:31)
--- NOTE | 2016-09-21 11:00 | PN ---
Date/Time of Note Date/Time of Note DATE: 09/21/16 TIME: 10:49 Assessment/Plan VTE Prophylaxis VTE Prophylaxis Intervention: other Lines/Catheters IV Catheter Type (from [facility]): PICC Line Central line still needed: Yes Assessment/Plan Assessment/Plan - S/p severe sepsis due to pneumonia/bronchitis. Leukocytosis with WBC of 21.7 -Dr. Philly perry is following infection disease consultation. - Advanced non-small cell lung CA, on biweekly chemotherapy infusion x2 years -Dr. Scanlon is following in oncology consultation. - Acute respiratory failure, resolving. Dr. Castanon is following in pulmonology consultation. - Pancytopenia due to chemotherapy -Acute on chronic diastolic congestive heart failure, continue gentle diuresis, continue to monitor electrolytes. -Cardiac arrhythmia, Dr. Gaytan is following in cardiology consultation. - h/o fungal pneumonia, on maintenance voriconazole - h/o post-obstructive pneumonia - h/o HTN, CAD, hyperlipidemia - h/o paroxysmal A fib - h/o DVT in LUE - h/o hypothyroidism family manager to arrange for supplemental oxygen upon discharge. Further recommendations based on clinical course. Plan of care discussed with Dr. Lincoln. Subjective 24 Hr Interval Summary Free Text/Dictation Patient remains on oxygen 2 L by nasal cannula. Shortness of breath on exertion noted. Complains of cough. Afebrile with leukocytosis of 21.7. Discussed with the staff. Respiratory: cough, shortness of breath Cardiovascular: no complaints Gastrointestinal: no complaints Genitourinary: no complaints Musculoskeletal: no complaints Skin: no complaints Neurologic: no complaints Endocrine: no complaints Lymphatic: no complaints Psychological: no complaints Immunologic: no complaints Exam/Review of Systems Vital Signs Vitals Vital Signs Date Time Temp Pulse Resp B/P Pulse Ox O2 Delivery O2 Flow Rate FiO2 09/21/16 09:47 80 16 Nasal Cannula 2.0 09/21/16 08:17 98.7 115/76 95 Intake and Output 09/20/16 09/20/16 09/21/16 15:00 23:00 07:00 Intake Total 1420 ml 500 ml Balance 1420 ml 500 ml Exam Constitutional: alert, oriented Psych: nl mood/affect Eyes: EOMI ENMT: nl external ears & nose Neck: non-tender Respiratory: diminished breath sounds Cardiovascular: nl pulses Gastrointestinal: non-tender, soft Musculoskeletal: nl extremities to inspection Extremities: normal pulses Neurological: nl mental status, nl speech Skin: nl turgor Lymph: nontender Results Result Diagram: 09/21/1652909/21/16 0530 Results 24 hrs Laboratory Tests Test 09/21/16 05:30 White Blood Count 21.7 #H Red Blood Count 3.06 L Hemoglobin 9.5 L Hematocrit 30.9 L Mean Corpuscular Volume 101.0 Mean Corpuscular Hemoglobin 31.0 Mean Corpuscular Hemoglobin Concent 30.7 L Red Cell Distribution Width 15.9 H Platelet Count 141 Mean Platelet Volume 10.3 Neutrophils % 88.3 H Lymphocytes % 4.5 L Monocytes % 4.6 Eosinophils % 0.6 Basophils % 0.1 Nucleated Red Blood Cells % 0.0 Neutrophils # 19.2 H Lymphocytes # 1.0 Monocytes # 1.0 H Eosinophils # 0.1 Basophils # 0.0 Nucleated Red Blood Cells # 0.0 Sodium Level 136 Potassium Level 3.8 Chloride Level 98 Carbon Dioxide Level 32 H Anion Gap 10 Blood Urea Nitrogen 16 Creatinine 1.07 Glucose Level 120 Calcium Level 8.6 Medications Medications Current Medications IV Flush (NS 10 ml) 10 ml PRN PRN IV IV PROTOCOL Last administered on 11:28; Admin Dose 10 ML; Start 08/31/16 at 18:30 Metoprolol Tartrate (Lopressor) 5 mg Q4H PRN IV ELEVATED HEART RATE Last administered on 09/02/16 17:09; Admin Dose 5 MG; Start 09/02/16 at 17:30; Status Future Hold Morphine Sulfate (morphine) 4 mg Q3 PRN IV PAIN Last administered on 09/21/16 10:16; Admin Dose 4 MG; Start 09/05/16 at 17:00 Morphine Sulfate (Ms Contin (Er)) 30 mg BID PO Last administered on 09/21/16 08:52; Admin Dose 30 MG; Start 09/05/16 at 21:00 Docusate Sodium (Colace) 100 mg TID PO Last administered on 09/21/16 08:51; Admin Dose 100 MG; Start 09/06/16 at 21:00 Bisacodyl (Dulcolax) 5 mg DAILY PRN PO CONSTIPATION Last administered on 11:43; Admin Dose 5 MG; Start 09/06/16 at 16:00 Pantoprazole (Protonix Tab) 40 mg DAILY@06 PO Last administered on 09/21/16 06 :06; Admin Dose 40 MG; Start 09/07/16 at 06:00 Atorvastatin Calcium (Lipitor) 20 mg QHS PO Last administered on 09/20/16 21: 15; Admin Dose 20 MG; Start 09/08/16 at 21:00 Docusate Sodium (Colace) 100 mg BID PRN PO CONSTIPATION; Start 09/08/16 at 13: 00 Escitalopram Oxalate (Lexapro) 10 mg DAILY PO Last administered on 09/21/16 08 :51; Admin Dose 10 MG; Start 09/09/16 at 09:00 Senna (Senokot) 1 tab Q12H PRN PO CONSTIPATION Last administered on 09/19/16 11:43; Admin Dose 1 TAB; Start 09/08/16 at 13:00 Trazodone HCl (Desyrel) 50 mg QHS PO Last administered on 09/20/16 21:15; Admin Dose 50 MG; Start 09/08/16 at 21:00 Voriconazole (Vfend) 100 mg BID PO Last administered on 09/21/16 08:52; Admin Dose 100 MG; Start 09/11/16 at 09:00 Filgrastim (Neupogen) 300 mcg DAILY@17 SC Last administered on 09/20/16 17:56 ; Admin Dose 300 MCG; Start 09/12/16 at 18:00 Aspirin (Halfprin) 81 mg DAILY PO Last administered on 09/21/16 08:52; Admin Dose 81 MG; Start 09/14/16 at 09:00 Promethazine HCl/ Codeine (Phenergan/ Codeine) 10 ml Q6H PRN PO COUGH Last administered on 09/21/16 04:26; Admin Dose 10 ML; Start 09/16/16 at 12:30 TRAMAINE ELLSWORTH Sep 21, 2016 11:00
--- NOTE | 2016-09-21 13:40 | CONS ---
Date/Time of Note Date/Time of Note DATE: 09/21/16 TIME: 13:38 Assessment/Plan Assessment/Plan Chief Complaint/Hosp Course IMPRESSION: 1. Cardiac arrhythmia, with currently rhythm most consistent with sinus tachycardia, but also having pauses. Negative troponin x 3/TSH elevated-no recurrence/reasonable HR control 2. Abnormal electrocardiogram. trop negative x3/NL EF by echo this admit 3. Hypertension, labile. 4. Dyslipidemia. 5. Pneumonia and bronchitis. 6. Lung cancer. 7. Hypothyroidism. 8. Anemia. 9. Thrombocytopenia-now improved 10. Prior hemoptysis. 11.BNP-elevated 12.PNA Recc: -Now med-surg -Continue statin/asa -Contine voriconazole -Follow volume status closely and will start on low dose standing lasix diuresis and follow creatnine closely -Onc following Problems: Consultation Date/Type/Reason Admit Date/Time Sep 01, 2016 at 14:47 Initial Consult Date 09/01/16 Type of Consultation: Cardiology Reason for Consultation cardiac arrythmia Referring Provider: MARYAM FARMER MD Exam/Review of Systems Vital Signs Vitals Vital Signs Date Time Temp Pulse Resp B/P Pulse Ox O2 Delivery O2 Flow Rate FiO2 09/21/16 09:47 80 16 Nasal Cannula 2.0 09/21/16 08:17 98.7 115/76 95 Intake and Output 09/20/16 09/20/16 09/21/16 15:00 23:00 07:00 Intake Total 1420 ml 500 ml Balance 1420 ml 500 ml Exam Review of Systems: CONSTITUTIONAL: No fevers, chills. PULMONARY: ongoing sob CARDIOVASCULAR: No chest pain/palpitations GASTROINTESTINAL: No nausea/vomiting. GENITOURINARY: No hematuria/dysuria. MUSCULOSKELETAL: No myagias/arthalgias. PSYCHIATRIC: The patient denies depression. NEUROLOGIC: No weakness Constitutional: alert, oriented Psych: no complaints Head: normocephalic ENMT: mucosa pink and moist Neck: jvd (9 cm water), supple Respiratory: diminished breath sounds (at bases/B) Cardiovascular: regular rate and rhythm Gastrointestinal: non-tender, soft Musculoskeletal: muscle tone (normal) Extremities: edema (none) Neurological: other (No focal deficits) Results Result Diagram: 09/21/16 0530 09/21/16 0530 Results 24 hrs Laboratory Tests Test 09/21/16 05:30 White Blood Count 21.7 #H Red Blood Count 3.06 L Hemoglobin 9.5 L Hematocrit 30.9 L Mean Corpuscular Volume 101.0 Mean Corpuscular Hemoglobin 31.0 Mean Corpuscular Hemoglobin Concent 30.7 L Red Cell Distribution Width 15.9 H Platelet Count 141 Mean Platelet Volume 10.3 Neutrophils % 88.3 H Lymphocytes % 4.5 L Monocytes % 4.6 Eosinophils % 0.6 Basophils % 0.1 Nucleated Red Blood Cells % 0.0 Neutrophils # 19.2 H Lymphocytes # 1.0 Monocytes # 1.0 H Eosinophils # 0.1 Basophils # 0.0 Nucleated Red Blood Cells # 0.0 Sodium Level 136 Potassium Level 3.8 Chloride Level 98 Carbon Dioxide Level 32 H Anion Gap 10 Blood Urea Nitrogen 16 Creatinine 1.07 Glucose Level 120 Calcium Level 8.6 Medications Medications Current Medications IV Flush (NS 10 ml) 10 ml PRN PRN IV IV PROTOCOL Last administered on 11:28; Admin Dose 10 ML; Start 08/31/16 at 18:30 Metoprolol Tartrate (Lopressor) 5 mg Q4H PRN IV ELEVATED HEART RATE Last administered on 09/02/16 17:09; Admin Dose 5 MG; Start 09/02/16 at 17:30; Status Future Hold Morphine Sulfate (morphine) 4 mg Q3 PRN IV PAIN Last administered on 09/21/16 13:26; Admin Dose 4 MG; Start 09/05/16 at 17:00 Morphine Sulfate (Ms Contin (Er)) 30 mg BID PO Last administered on 09/21/16 08:52; Admin Dose 30 MG; Start 09/05/16 at 21:00 Docusate Sodium (Colace) 100 mg TID PO Last administered on 09/21/16 13:26; Admin Dose 100 MG; Start 09/06/16 at 21:00 Bisacodyl (Dulcolax) 5 mg DAILY PRN PO CONSTIPATION Last administered on 11:43; Admin Dose 5 MG; Start 09/06/16 at 16:00 Pantoprazole (Protonix Tab) 40 mg DAILY@06 PO Last administered on 09/21/16 06 :06; Admin Dose 40 MG; Start 09/07/16 at 06:00 Atorvastatin Calcium (Lipitor) 20 mg QHS PO Last administered on 09/20/16 21: 15; Admin Dose 20 MG; Start 09/08/16 at 21:00 Docusate Sodium (Colace) 100 mg BID PRN PO CONSTIPATION; Start 09/08/16 at 13: 00 Escitalopram Oxalate (Lexapro) 10 mg DAILY PO Last administered on 09/21/16 08 :51; Admin Dose 10 MG; Start 09/09/16 at 09:00 Senna (Senokot) 1 tab Q12H PRN PO CONSTIPATION Last administered on 09/19/16 11:43; Admin Dose 1 TAB; Start 09/08/16 at 13:00 Trazodone HCl (Desyrel) 50 mg QHS PO Last administered on 09/20/16 21:15; Admin Dose 50 MG; Start 09/08/16 at 21:00 Voriconazole (Vfend) 100 mg BID PO Last administered on 09/21/16 08:52; Admin Dose 100 MG; Start 09/11/16 at 09:00 Filgrastim (Neupogen) 300 mcg DAILY@17 SC Last administered on 09/20/16 17:56 ; Admin Dose 300 MCG; Start 09/12/16 at 18:00 Aspirin (Halfprin) 81 mg DAILY PO Last administered on 09/21/16 08:52; Admin Dose 81 MG; Start 09/14/16 at 09:00 Promethazine HCl/ Codeine (Phenergan/ Codeine) 10 ml Q6H PRN PO COUGH Last administered on 09/21/16 13:25; Admin Dose 10 ML; Start 09/16/16 at 12:30 MARIAA ÁLVAREZ Sep 21, 2016 13:40
[2016-09-21] MEDS: FUROSEMIDE 20 MG INJ IV SCH (14:55)
[2016-09-21] MEDS: FILGRASTIM 300 MCG INJ SC SCH (17:00)
--- NOTE | 2016-09-21 18:38 | CONS ---
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 Diamond in [place]. aspergillus antibody was > 1:64 but aspergillus antigen in serum by EIA was negative during this admission. - h/o post-obstructive pneumonia - h/o HTN, CAD, hyperlipidemia - h/o paroxysmal A fib - h/o DVT in LUE - hypothyroidism with elevated TSH level - hypomagnesemia - HIV negative in 2013 - tachycardia recommendations: - will review the result of repeat sputum culture from 09/20/2016 - continue PO voriconazole at the current dose per instruction by Dr. Diamond, his ID specialist. Per Pt, he is supposed to take it for 6 months since the beginning of 04/2016 management d/w Pt Problems: Consultation Date/Type/Reason Admit Date/Time Sep 01, 2016 at 14:47 Initial Consult Date 09/01/16 Type of Consultation: ID Referring Provider: MARYAM FARMER MD 24 HR Interval Summary Constitutional: no complaints Detailed Summary Eyes: no complaints ENT: no complaints Respiratory: cough, shortness of breath, sputum, wheezing, No pain, No pleuritic pain Cardiovascular: no complaints Gastrointestinal: no complaints Genitourinary: no complaints Musculoskeletal: no complaints Skin: no complaints Exam/Review of Systems Vital Signs Vitals Vital Signs Date Time Temp Pulse Resp B/P Pulse Ox O2 Delivery O2 Flow Rate FiO2 09/21/16 14:22 85 18 Nasal Cannula 2.0 09/21/16 08:17 98.7 115/76 95 Intake and Output 09/20/16 09/20/16 09/21/16 15:00 23:00 07:00 Intake Total 1420 ml 500 ml Balance 1420 ml 500 ml Exam Constitutional: alert, frail, obese Psych: nl mood/affect, no complaints Head: normocephalic Eyes: nl conjunctiva, nl lids ENMT: nl external ears & nose, nl nasal mucosa & septum Neck: supple Respiratory: congested cough, crackles/rales, wheezing Cardiovascular: nl pulses, regular rate and rhythm Gastrointestinal: non-tender, soft Extremities: No edema Results Result Diagram: 09/21/1630 09/21/16 0530 Results 24 hrs Laboratory Tests Test 09/21/16 05:30 White Blood Count 21.7 #H Red Blood Count 3.06 L Hemoglobin 9.5 L Hematocrit 30.9 L Mean Corpuscular Volume 101.0 Mean Corpuscular Hemoglobin 31.0 Mean Corpuscular Hemoglobin Concent 30.7 L Red Cell Distribution Width 15.9 H Platelet Count 141 Mean Platelet Volume 10.3 Neutrophils % 88.3 H Lymphocytes % 4.5 L Monocytes % 4.6 Eosinophils % 0.6 Basophils % 0.1 Nucleated Red Blood Cells % 0.0 Neutrophils # 19.2 H Lymphocytes # 1.0 Monocytes # 1.0 H Eosinophils # 0.1 Basophils # 0.0 Nucleated Red Blood Cells # 0.0 Sodium Level 136 Potassium Level 3.8 Chloride Level 98 Carbon Dioxide Level 32 H Anion Gap 10 Blood Urea Nitrogen 16 Creatinine 1.07 Glucose Level 120 Calcium Level 8.6 Medications Medications Current Medications IV Flush (NS 10 ml) 10 ml PRN PRN IV IV PROTOCOL Last administered on 11:28; Admin Dose 10 ML; Start 08/31/16 at 18:30 Metoprolol Tartrate (Lopressor) 5 mg Q4H PRN IV ELEVATED HEART RATE Last administered on 09/02/16 17:09; Admin Dose 5 MG; Start 09/02/16 at 17:30; Status Future Hold Morphine Sulfate (morphine) 4 mg Q3 PRN IV PAIN Last administered on 09/21/16 18:05; Admin Dose 4 MG; Start 09/05/16 at 17:00 Morphine Sulfate (Ms Contin (Er)) 30 mg BID PO Last administered on 09/21/16 08:52; Admin Dose 30 MG; Start 09/05/16 at 21:00 Docusate Sodium (Colace) 100 mg TID PO Last administered on 09/21/16 13:26; Admin Dose 100 MG; Start 09/06/16 at 21:00 Bisacodyl (Dulcolax) 5 mg DAILY PRN PO CONSTIPATION Last administered on 11:43; Admin Dose 5 MG; Start 09/06/16 at 16:00 Pantoprazole (Protonix Tab) 40 mg DAILY@06 PO Last administered on 09/21/16 06 :06; Admin Dose 40 MG; Start 09/07/16 at 06:00 Atorvastatin Calcium (Lipitor) 20 mg QHS PO Last administered on 09/20/16 21: 15; Admin Dose 20 MG; Start 09/08/16 at 21:00 Docusate Sodium (Colace) 100 mg BID PRN PO CONSTIPATION; Start 09/08/16 at 13: 00 Escitalopram Oxalate (Lexapro) 10 mg DAILY PO Last administered on 09/21/16 08 :51; Admin Dose 10 MG; Start 09/09/16 at 09:00 Senna (Senokot) 1 tab Q12H PRN PO CONSTIPATION Last administered on 09/19/16 11:43; Admin Dose 1 TAB; Start 09/08/16 at 13:00 Trazodone HCl (Desyrel) 50 mg QHS PO Last administered on 09/20/16 21:15; Admin Dose 50 MG; Start 09/08/16 at 21:00 Voriconazole (Vfend) 100 mg BID PO Last administered on 09/21/16 08:52; Admin Dose 100 MG; Start 09/11/16 at 09:00 Filgrastim (Neupogen) 300 mcg DAILY@17 SC Last administered on 09/20/16 17:56 ; Admin Dose 300 MCG; Start 09/12/16 at 18:00 Aspirin (Halfprin) 81 mg DAILY PO Last administered on 09/21/16 08:52; Admin Dose 81 MG; Start 09/14/16 at 09:00 Promethazine HCl/ Codeine (Phenergan/ Codeine) 10 ml Q6H PRN PO COUGH Last administered on 09/21/16 13:25; Admin Dose 10 ML; Start 09/16/16 at 12:30 Furosemide (Lasix) 20 mg DAILY IV Last administered on 09/21/16 14:55; Admin Dose 20 MG; Start 09/21/16 at 14:30 LUKE CAAL M.D. Sep 21, 2016 18:38
[2016-09-21 19:36] VITALS: BP 105/69; RESP 20
[2016-09-21] MEDS: traZODone 50 MG TAB PO SCH (20:30)
[2016-09-21] MEDS: ATORVASTATIN 20 MG TAB PO SCH (20:30)
[2016-09-22] MEDS: morphine 4 MG/ML VIAL IV PRN ×6 (00:56→21:16)
[2016-09-22] MEDS: ALBUTEROL/IPRATROPIUM (NEB) 3 ML AMP HHN SCH ×4 (02:00→19:53)
[2016-09-22] MEDS: PANTOPRAZOLE (EC) 40 MG TAB PO SCH (05:10)
[2016-09-22 05:55] LABS: ADD SCAN DIFF NO
[2016-09-22 06:03] LABS: BASOPHILS % 0.2 % (0.0-2.0); EOSINOPHILS # 0.1 10^3/ul (0.0-0.5); EOSINOPHILS % 0.9 % (0.0-7.0); HEMATOCRIT 30.1 % (42.0-52.0); HEMOGLOBIN 9.2 g/dl (14.0-18.0); LYMPHOCYTES % 8.4 % (15.0-51.0); MEAN CORPUSCULAR HEMOGLOBIN 30.9 pg (29.0-33.0); MEAN CORPUSCULAR HGB CONC 30.6 g/dl (32.0-37.0); MEAN PLATELET VOLUME 10.6 fl (7.4-10.4); MONOCYTE # 0.9 10^3/ul (0.3-0.9); MONOCYTES % 7.6 % (0.0-11.0); NEUTROPHIL # 9.3 10^3/ul (1.6-7.5); NEUTROPHILS % 80.9 % (39.0-77.0); PLATELET COUNT 137 10^3/UL (140-415); RED BLOOD COUNT 2.98 10^6/ul (4.70-6.10); RED CELL DISTRIBUTION WIDTH 16.3 % (11.5-14.5); WHITE BLOOD COUNT 11.5 10^3/ul (4.8-10.8)
[2016-09-22 06:32] LABS: POTASSIUM 3.7 mmol/L (3.5-5.1)
[2016-09-22 06:34] LABS: CREATININE 1.1 mg/dl (0.61-1.24)
[2016-09-22 06:35] LABS: CALCIUM 8.4 mg/dl (8.4-10.2)
[2016-09-22] MEDS: LEVOTHYROXINE 50 MCG TAB PO SCH ×2 (06:43→08:11)
[2016-09-22 07:58] VITALS: BP 107/63; RESP 20
[2016-09-22] MEDS: VORICONAZOLE 200 MG TAB PO SCH ×2 (08:10→21:13)
[2016-09-22] MEDS: ASPIRIN (EC) 81 MG TAB PO SCH (08:11)
[2016-09-22] MEDS: DOCUSATE SODIUM 100 MG CAP PO SCH ×3 (08:11→21:14)
[2016-09-22] MEDS: morphine (ER) 30 MG TAB PO SCH ×2 (08:12→21:15)
[2016-09-22] MEDS: ESCITALOPRAM 10 MG TAB PO SCH (08:12)
[2016-09-22] MEDS: FUROSEMIDE 20 MG INJ IV SCH (08:13)
--- NOTE | 2016-09-22 10:06 | CONS ---
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 Diamond in [place]. aspergillus antibody was > 1:64 but aspergillus antigen in serum by EIA was negative during this admission. - h/o post-obstructive pneumonia - h/o HTN, CAD, hyperlipidemia - h/o paroxysmal A fib - h/o DVT in LUE - hypothyroidism with elevated TSH level - hypomagnesemia - HIV negative in 2013 - tachycardia recommendations: - will review the result of repeat sputum culture from 09/20/2016 - continue PO voriconazole at the current dose per instruction by Dr. Diamond, his ID specialist. Per Pt, he is supposed to take it for 6 months since the beginning of 04/2016 management d/w Pt Problems: Consultation Date/Type/Reason Admit Date/Time Sep 01, 2016 at 14:47 Initial Consult Date 09/01/16 Type of Consultation: ID Referring Provider: MARYAM FARMER MD Exam/Review of Systems Vital Signs Vitals Vital Signs Date Time Temp Pulse Resp B/P Pulse Ox O2 Delivery O2 Flow Rate FiO2 09/22/16 07:58 98.2 92 20 107/63 93 09/22/16 07:17 1.0 09/22/16 07:17 Nasal Cannula Intake and Output 09/21/16 09/21/16 09/22/16 15:00 23:00 07:00 Intake Total 1600 ml 800 ml Balance 1600 ml 800 ml Results Result Diagram: 09/22/16 0456 09/22/16 0456 Results 24 hrs Laboratory Tests Test 09/22/16 04:56 White Blood Count 11.5 #H Red Blood Count 2.98 L Hemoglobin 9.2 L Hematocrit 30.1 L Mean Corpuscular Volume 101.0 Mean Corpuscular Hemoglobin 30.9 Mean Corpuscular Hemoglobin Concent 30.6 L Red Cell Distribution Width 16.3 H Platelet Count 137 L Mean Platelet Volume 10.6 H Neutrophils % 80.9 H Lymphocytes % 8.4 L Monocytes % 7.6 Eosinophils % 0.9 Basophils % 0.2 Nucleated Red Blood Cells % 0.0 Neutrophils # 9.3 H Lymphocytes # 1.0 Monocytes # 0.9 Eosinophils # 0.1 Basophils # 0.0 Nucleated Red Blood Cells # 0.0 Sodium Level 139 Potassium Level 3.7 Chloride Level 96 L Carbon Dioxide Level 31 Anion Gap 16 Blood Urea Nitrogen 20 Creatinine 1.10 Glucose Level 95 Calcium Level 8.4 Medications Medications Current Medications IV Flush (NS 10 ml) 10 ml PRN PRN IV IV PROTOCOL Last administered on 11:28; Admin Dose 10 ML; Start 08/31/16 at 18:30 Metoprolol Tartrate (Lopressor) 5 mg Q4H PRN IV ELEVATED HEART RATE Last administered on 09/02/16 17:09; Admin Dose 5 MG; Start 09/02/16 at 17:30; Status Future Hold Morphine Sulfate (morphine) 4 mg Q3 PRN IV PAIN Last administered on 09/22/16 05:11; Admin Dose 4 MG; Start 09/05/16 at 17:00 Morphine Sulfate (Ms Contin (Er)) 30 mg BID PO Last administered on 09/22/16 08:12; Admin Dose 30 MG; Start 09/05/16 at 21:00 Docusate Sodium (Colace) 100 mg TID PO Last administered on 09/22/16 08:11; Admin Dose 100 MG; Start 09/06/16 at 21:00 Bisacodyl (Dulcolax) 5 mg DAILY PRN PO CONSTIPATION Last administered on 11:43; Admin Dose 5 MG; Start 09/06/16 at 16:00 Pantoprazole (Protonix Tab) 40 mg DAILY@06 PO Last administered on 09/22/16 05 :10; Admin Dose 40 MG; Start 09/07/16 at 06:00 Atorvastatin Calcium (Lipitor) 20 mg QHS PO Last administered on 09/21/16 20: 30; Admin Dose 20 MG; Start 09/08/16 at 21:00 Docusate Sodium (Colace) 100 mg BID PRN PO CONSTIPATION; Start 09/08/16 at 13: 00 Escitalopram Oxalate (Lexapro) 10 mg DAILY PO Last administered on 09/22/16 08 :12; Admin Dose 10 MG; Start 09/09/16 at 09:00 Senna (Senokot) 1 tab Q12H PRN PO CONSTIPATION Last administered on 09/19/16 11:43; Admin Dose 1 TAB; Start 09/08/16 at 13:00 Trazodone HCl (Desyrel) 50 mg QHS PO Last administered on 09/21/16 20:30; Admin Dose 50 MG; Start 09/08/16 at 21:00 Voriconazole (Vfend) 100 mg BID PO Last administered on 09/22/16 08:10; Admin Dose 100 MG; Start 09/11/16 at 09:00 Aspirin (Halfprin) 81 mg DAILY PO Last administered on 09/22/16 08:11; Admin Dose 81 MG; Start 09/14/16 at 09:00 Promethazine HCl/ Codeine (Phenergan/ Codeine) 10 ml Q6H PRN PO COUGH Last administered on 09/21/16 13:25; Admin Dose 10 ML; Start 09/16/16 at 12:30 Furosemide (Lasix) 20 mg DAILY IV Last administered on 09/22/16 08:13; Admin Dose 20 MG; Start 09/21/16 at 14:30 LUKE CAAL M.D. Sep 22, 2016 10:06
--- NOTE | 2016-09-22 10:56 | CONS ---
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 Diamond in [place]. aspergillus antibody was > 1:64 but aspergillus antigen in serum by EIA was negative during this admission. - h/o post-obstructive pneumonia - h/o HTN, CAD, hyperlipidemia - h/o paroxysmal A fib - h/o DVT in LUE - hypothyroidism with elevated TSH level - hypomagnesemia - HIV negative in 2013 recommendations: - in light of myalgia, worsening cough, will order: blood cultures, urinalysis and urine culture, CXR, influenza screen - pending: the final result of repeat sputum culture from 09/20/2016 - after the cultures are collected, start cefepime for gram negative bacterial pneumonia - continue PO voriconazole at the current dose per instruction by Dr. Diamond, his ID specialist. Per Pt, he is supposed to take it for 6 months since the beginning of 04/2016 management d/w Pt, his RN Problems: Consultation Date/Type/Reason Admit Date/Time Sep 01, 2016 at 14:47 Initial Consult Date 09/01/16 Type of Consultation: ID Referring Provider: MARYAM FARMER MD 24 HR Interval Summary Constitutional: no complaints Detailed Summary Eyes: no complaints Respiratory: cough, shortness of breath, sputum Cardiovascular: no complaints Gastrointestinal: no complaints Genitourinary: no complaints Musculoskeletal: other (myalgia) Skin: no complaints Exam/Review of Systems Vital Signs Vitals Vital Signs Date Time Temp Pulse Resp B/P Pulse Ox O2 Delivery O2 Flow Rate FiO2 09/22/16 07:58 98.2 92 20 107/63 93 09/22/16 07:17 1.0 09/22/16 07:17 Nasal Cannula Intake and Output 09/21/16 09/21/16 09/22/16 15:00 23:00 07:00 Intake Total 1600 ml 800 ml Balance 1600 ml 800 ml Exam Constitutional: frail, obese Head: normocephalic Eyes: nl conjunctiva, nl lids ENMT: nl external ears & nose, nl nasal mucosa & septum Respiratory: congested cough, wheezing Cardiovascular: regular rate and rhythm Gastrointestinal: non-tender, soft Results Result Diagram: 09/22/16 0456 09/22/16 0456 Results 24 hrs Laboratory Tests Test 09/22/16 04:56 White Blood Count 11.5 #H Red Blood Count 2.98 L Hemoglobin 9.2 L Hematocrit 30.1 L Mean Corpuscular Volume 101.0 Mean Corpuscular Hemoglobin 30.9 Mean Corpuscular Hemoglobin Concent 30.6 L Red Cell Distribution Width 16.3 H Platelet Count 137 L Mean Platelet Volume 10.6 H Neutrophils % 80.9 H Lymphocytes % 8.4 L Monocytes % 7.6 Eosinophils % 0.9 Basophils % 0.2 Nucleated Red Blood Cells % 0.0 Neutrophils # 9.3 H Lymphocytes # 1.0 Monocytes # 0.9 Eosinophils # 0.1 Basophils # 0.0 Nucleated Red Blood Cells # 0.0 Sodium Level 139 Potassium Level 3.7 Chloride Level 96 L Carbon Dioxide Level 31 Anion Gap 16 Blood Urea Nitrogen 20 Creatinine 1.10 Glucose Level 95 Calcium Level 8.4 Medications Medications Current Medications IV Flush (NS 10 ml) 10 ml PRN PRN IV IV PROTOCOL Last administered on 11:28; Admin Dose 10 ML; Start 08/31/16 at 18:30 Metoprolol Tartrate (Lopressor) 5 mg Q4H PRN IV ELEVATED HEART RATE Last administered on 09/02/16 17:09; Admin Dose 5 MG; Start 09/02/16 at 17:30; Status Future Hold Morphine Sulfate (morphine) 4 mg Q3 PRN IV PAIN Last administered on 09/22/16 10:18; Admin Dose 4 MG; Start 09/05/16 at 17:00 Morphine Sulfate (Ms Contin (Er)) 30 mg BID PO Last administered on 09/22/16 08:12; Admin Dose 30 MG; Start 09/05/16 at 21:00 Docusate Sodium (Colace) 100 mg TID PO Last administered on 09/22/16 08:11; Admin Dose 100 MG; Start 09/06/16 at 21:00 Bisacodyl (Dulcolax) 5 mg DAILY PRN PO CONSTIPATION Last administered on 11:43; Admin Dose 5 MG; Start 09/06/16 at 16:00 Pantoprazole (Protonix Tab) 40 mg DAILY@06 PO Last administered on 09/22/16 05 :10; Admin Dose 40 MG; Start 09/07/16 at 06:00 Atorvastatin Calcium (Lipitor) 20 mg QHS PO Last administered on 09/21/16 20: 30; Admin Dose 20 MG; Start 09/08/16 at 21:00 Docusate Sodium (Colace) 100 mg BID PRN PO CONSTIPATION; Start 09/08/16 at 13: 00 Escitalopram Oxalate (Lexapro) 10 mg DAILY PO Last administered on 09/22/16 08 :12; Admin Dose 10 MG; Start 09/09/16 at 09:00 Senna (Senokot) 1 tab Q12H PRN PO CONSTIPATION Last administered on 09/19/16 11:43; Admin Dose 1 TAB; Start 09/08/16 at 13:00 Trazodone HCl (Desyrel) 50 mg QHS PO Last administered on 09/21/16 20:30; Admin Dose 50 MG; Start 09/08/16 at 21:00 Voriconazole (Vfend) 100 mg BID PO Last administered on 09/22/16 08:10; Admin Dose 100 MG; Start 09/11/16 at 09:00 Aspirin (Halfprin) 81 mg DAILY PO Last administered on 09/22/16 08:11; Admin Dose 81 MG; Start 09/14/16 at 09:00 Promethazine HCl/ Codeine (Phenergan/ Codeine) 10 ml Q6H PRN PO COUGH Last administered on 09/21/16 13:25; Admin Dose 10 ML; Start 09/16/16 at 12:30 Furosemide (Lasix) 20 mg DAILY IV Last administered on 09/22/16 08:13; Admin Dose 20 MG; Start 09/21/16 at 14:30 LUKE CAAL M.D. Sep 22, 2016 10:56
[2016-09-22] MEDS ORDERED: CEFEPIME 2GM/50 ML (PMX) 50 ML IVPB SCH (11:30)
--- NOTE | 2016-09-22 11:41 | RADRPT ---
PROCEDURE: CHEST 1VW CLINICAL INDICATION: Shortness of breath TECHNIQUE: Single frontal view of the chest was obtained COMPARISON: 09/21/2016 FINDINGS: The cardiac size is mildly enlarged, stable. Aortic vascular calcifications are demonstrated. There is no pulmonary vascular congestion. Stable right upper lobe consolidation. Stable elevation of the right diaphragm with associated atel ectasis. Mild degenerative changes of the visualized osseous structures are visualized. IMPRESSION: 1. Stable right upper lobe consolidation. Stable elevation of the right diaphragm with associated a telectasis. 2. Atherosclerosis. RPTAT:PP .Alan Sherman MD, Date Time Electronically viewed and signed by .Alan Sherman MD, MD on 09/22/2016 11:40 .V/
[2016-09-22] MEDS: PROMETHAZINE/CODEINE 5ML CUP PO PRN ×2 (13:24→21:16)
[2016-09-22] MEDS: CEFEPIME 2GM/50 ML (PMX) 50 ML IVPB SCH ×2 (13:45→21:46)
--- NOTE | 2016-09-22 14:47 | CONS ---
Date/Time of Note Date/Time of Note DATE: 09/22/16 TIME: 14:45 Assessment/Plan Assessment/Plan Chief Complaint/Hosp Course IMPRESSION: 1. Cardiac arrhythmia, with currently rhythm most consistent with sinus tachycardia, but also having pauses. Negative troponin x 3/TSH elevated-no recurrence/reasonable HR control 2. Abnormal electrocardiogram. trop negative x3/NL EF by echo this admit 3. Hypertension, labile. 4. Dyslipidemia. 5. Pneumonia and bronchitis. 6. Lung cancer. 7. Hypothyroidism. 8. Anemia. 9. Thrombocytopenia-now improved 10. Prior hemoptysis. 11.BNP-elevated 12.PNA Recc: -Now med-surg -Continue statin/asa -Contine voriconazole -Follow volume status closely on standing low dose lasix diuresis and follow creatnine closely -Onc/ID following -f/u sputum cx data and tailor abx as necessary Problems: Consultation Date/Type/Reason Admit Date/Time Sep 01, 2016 at 14:47 Initial Consult Date 09/01/16 Type of Consultation: cardiology Reason for Consultation sob/CHF Referring Provider: MARYAM FARMER MD Exam/Review of Systems Vital Signs Vitals Vital Signs Date Time Temp Pulse Resp B/P Pulse Ox O2 Delivery O2 Flow Rate FiO2 09/22/16 14:22 2.0 09/22/16 14:22 76 18 93 Nasal Cannula 09/22/16 07:58 98.2 107/63 Intake and Output 09/21/16 09/21/16 09/22/16 15:00 23:00 07:00 Intake Total 1600 ml 800 ml Balance 1600 ml 800 ml Exam Review of Systems: CONSTITUTIONAL: No fevers, chills. PULMONARY: No sob CARDIOVASCULAR: No chest pain/palpitations GASTROINTESTINAL: No nausea/vomiting. GENITOURINARY: No hematuria/dysuria. MUSCULOSKELETAL: No myagias/arthalgias. PSYCHIATRIC: The patient denies depression. NEUROLOGIC: No weakness Constitutional: alert Psych: no complaints Head: normocephalic ENMT: mucosa pink and moist Neck: jvd (9 cm water), supple Respiratory: diminished breath sounds, wheezing Cardiovascular: regular rate and rhythm Gastrointestinal: non-tender, soft Musculoskeletal: muscle weakness (normal) Extremities: edema (none) Neurological: other (No focal deficits) Results Result Diagram: 09/22/16 0456 09/22/16 0456 Results 24 hrs Laboratory Tests Test 09/22/16 04:56 White Blood Count 11.5 #H Red Blood Count 2.98 L Hemoglobin 9.2 L Hematocrit 30.1 L Mean Corpuscular Volume 101.0 Mean Corpuscular Hemoglobin 30.9 Mean Corpuscular Hemoglobin Concent 30.6 L Red Cell Distribution Width 16.3 H Platelet Count 137 L Mean Platelet Volume 10.6 H Neutrophils % 80.9 H Lymphocytes % 8.4 L Monocytes % 7.6 Eosinophils % 0.9 Basophils % 0.2 Nucleated Red Blood Cells % 0.0 Neutrophils # 9.3 H Lymphocytes # 1.0 Monocytes # 0.9 Eosinophils # 0.1 Basophils # 0.0 Nucleated Red Blood Cells # 0.0 Sodium Level 139 Potassium Level 3.7 Chloride Level 96 L Carbon Dioxide Level 31 Anion Gap 16 Blood Urea Nitrogen 20 Creatinine 1.10 Glucose Level 95 Calcium Level 8.4 Medications Medications Current Medications IV Flush (NS 10 ml) 10 ml PRN PRN IV IV PROTOCOL Last administered on 11:28; Admin Dose 10 ML; Start 08/31/16 at 18:30 Metoprolol Tartrate (Lopressor) 5 mg Q4H PRN IV ELEVATED HEART RATE Last administered on 09/02/16 17:09; Admin Dose 5 MG; Start 09/02/16 at 17:30; Status Future Hold Morphine Sulfate (morphine) 4 mg Q3 PRN IV PAIN Last administered on 09/22/16 13:19; Admin Dose 4 MG; Start 09/05/16 at 17:00 Morphine Sulfate (Ms Contin (Er)) 30 mg BID PO Last administered on 09/22/16 08:12; Admin Dose 30 MG; Start 09/05/16 at 21:00 Docusate Sodium (Colace) 100 mg TID PO Last administered on 09/22/16 13:19; Admin Dose 100 MG; Start 09/06/16 at 21:00 Bisacodyl (Dulcolax) 5 mg DAILY PRN PO CONSTIPATION Last administered on 11:43; Admin Dose 5 MG; Start 09/06/16 at 16:00 Pantoprazole (Protonix Tab) 40 mg DAILY@06 PO Last administered on 09/22/16 05 :10; Admin Dose 40 MG; Start 09/07/16 at 06:00 Atorvastatin Calcium (Lipitor) 20 mg QHS PO Last administered on 09/21/16 20: 30; Admin Dose 20 MG; Start 09/08/16 at 21:00 Docusate Sodium (Colace) 100 mg BID PRN PO CONSTIPATION; Start 09/08/16 at 13: 00 Escitalopram Oxalate (Lexapro) 10 mg DAILY PO Last administered on 09/22/16 08 :12; Admin Dose 10 MG; Start 09/09/16 at 09:00 Senna (Senokot) 1 tab Q12H PRN PO CONSTIPATION Last administered on 09/19/16 11:43; Admin Dose 1 TAB; Start 09/08/16 at 13:00 Trazodone HCl (Desyrel) 50 mg QHS PO Last administered on 09/21/16 20:30; Admin Dose 50 MG; Start 09/08/16 at 21:00 Voriconazole (Vfend) 100 mg BID PO Last administered on 09/22/16 08:10; Admin Dose 100 MG; Start 09/11/16 at 09:00 Aspirin (Halfprin) 81 mg DAILY PO Last administered on 09/22/16 08:11; Admin Dose 81 MG; Start 09/14/16 at 09:00 Promethazine HCl/ Codeine (Phenergan/ Codeine) 10 ml Q6H PRN PO COUGH Last administered on 09/22/16 13:24; Admin Dose 10 ML; Start 09/16/16 at 12:30 Furosemide 20 mg 20 mg DAILY IV Last administered on 09/22/16 08:13; Admin Dose 20 MG; Start 09/21/16 at 14:30 Cefepime HCl (Maxipime 2gm/50 ml (Pmx)) 50 ml @ 100 mls/hr Q12 IVPB Last administered on 09/22/16 13:45; Admin Dose 100 MLS/HR; Start 09/22/16 at 11:00 MARIAA ÁLVAREZ Sep 22, 2016 14:47
[2016-09-22 14:51] LABS: ADD UMIC YES; URINE BILIRUBIN (Dip) NEGATIVE (NEGATIVE); URINE BLOOD (Dip) 1+ (NEGATIVE); URINE COLOR LT. YELLOW (YELLOW); URINE GLUCOSE (Dip) NEGATIVE (NEGATIVE); URINE KETONES (Dip) NEGATIVE (NEGATIVE); URINE LEUKOCYTE ESTERASE (Dip) NEGATIVE (NEGATIVE); URINE NITRITE (Dip) NEGATIVE (NEGATIVE); URINE TOTAL PROTEIN (Dip) NEGATIVE (NEGATIVE); URINE UROBILINOGEN (Dip) 0.2 E.U./dL (0.1-1.0)
--- NOTE | 2016-09-22 17:09 | PN ---
Date/Time of Note Date/Time of Note DATE: 09/22/16 TIME: 17:05 Assessment/Plan VTE Prophylaxis VTE Prophylaxis Intervention: SCD's Lines/Catheters IV [facility] PICC Line Central line still needed: Yes Assessment/Plan Chief Complaint/Hosp Course Assessment/Plan - S/p severe sepsis due to pneumonia/bronchitis, Dr. Fraga group is following infection disease consultation. Currently on cefepime for possible gram- negative pneumonia. - Advanced non-small cell lung CA, on biweekly chemotherapy infusion x2 years, Dr. Scanlon is following in oncology consultation. - Acute respiratory failure, resolving. Dr. Castanon is following in pulmonology consultation. - Pancytopenia due to chemotherapy -Acute on chronic diastolic congestive heart failure, continue gentle diuresis, continue to monitor electrolytes. -Cardiac arrhythmia, Dr. Gaytan is following in cardiology consultation. - h/o fungal pneumonia, on maintenance voriconazole - h/o post-obstructive pneumonia - h/o HTN, CAD, hyperlipidemia - h/o paroxysmal A fib - h/o DVT in LUE - h/o hypothyroidism Further recommendations based on clinical course. Plan of care discussed with Dr. Lincoln. Problems: Subjective 24 Hr Interval Summary Free Text/Dictation Patient complains of productive cough, complains of shortness of breath on exertion, generalized weakness. Exam/Review of Systems Vital Signs Vitals Vital Signs Date Time Temp Pulse Resp B/P Pulse Ox O2 Delivery O2 Flow Rate FiO2 09/22/16 14:22 2.0 09/22/16 14:22 76 18 93 Nasal Cannula 09/22/16 07:58 98.2 107/63 Intake and Output 09/21/16 09/21/16 09/22/16 15:00 23:00 07:00 Intake Total 1600 ml 800 ml Balance 1600 ml 800 ml Exam Constitutional: alert, oriented Psych: nl mood/affect, no complaints Head: atraumatic, normocephalic Eyes: nl conjunctiva ENMT: nl external ears & nose Neck: non-tender, supple Respiratory: diminished breath sounds, wheezing Cardiovascular: nl pulses, regular rate and rhythm Gastrointestinal: non-tender, soft Musculoskeletal: nl extremities to inspection Extremities: normal pulses Neurological: SINK CUTTER II-XII intact Results Result Diagram: 09/22/16 0456 09/22/16 0456 Results 24 hrs Laboratory Tests Test 09/22/16 04:56 09/22/16 14:10 White Blood Count 11.5 #H Red Blood Count 2.98 L Hemoglobin 9.2 L Hematocrit 30.1 L Mean Corpuscular Volume 101.0 Mean Corpuscular Hemoglobin 30.9 Mean Corpuscular Hemoglobin Concent 30.6 L Red Cell Distribution Width 16.3 H Platelet Count 137 L Mean Platelet Volume 10.6 H Neutrophils % 80.9 H Lymphocytes % 8.4 L Monocytes % 7.6 Eosinophils % 0.9 Basophils % 0.2 Nucleated Red Blood Cells % 0.0 Neutrophils # 9.3 H Lymphocytes # 1.0 Monocytes # 0.9 Eosinophils # 0.1 Basophils # 0.0 Nucleated Red Blood Cells # 0.0 Sodium Level 139 Potassium Level 3.7 Chloride Level 96 L Carbon Dioxide Level 31 Anion Gap 16 Blood Urea Nitrogen 20 Creatinine 1.10 Glucose Level 95 Calcium Level 8.4 Urine Color LT. YELLOW Urine Clarity CLEAR Urine pH 6.5 Urine Specific [place] <=1.005 L Urine Ketones NEGATIVE Urine Nitrite NEGATIVE Urine Bilirubin NEGATIVE Urine Urobilinogen 0.2 E.U./dL Urine Leukocyte Esterase NEGATIVE Urine Microscopic RBC 2-5 Urine Microscopic WBC 0-2 Urine Hemoglobin 1+ H Urine Glucose NEGATIVE Urine Total Protein NEGATIVE Medications Medications Current Medications IV Flush (NS 10 ml) 10 ml PRN PRN IV IV PROTOCOL Last administered on 11:28; Admin Dose 10 ML; Start 08/31/16 at 18:30 Metoprolol Tartrate (Lopressor) 5 mg Q4H PRN IV ELEVATED HEART RATE Last administered on 09/02/16 17:09; Admin Dose 5 MG; Start 09/02/16 at 17:30; Status Future Hold Morphine Sulfate (morphine) 4 mg Q3 PRN IV PAIN Last administered on 09/22/16 16:38; Admin Dose 4 MG; Start 09/05/16 at 17:00 Morphine Sulfate (Ms Contin (Er)) 30 mg BID PO Last administered on 09/22/16 08:12; Admin Dose 30 MG; Start 09/05/16 at 21:00 Docusate Sodium (Colace) 100 mg TID PO Last administered on 09/22/16 13:19; Admin Dose 100 MG; Start 09/06/16 at 21:00 Bisacodyl (Dulcolax) 5 mg DAILY PRN PO CONSTIPATION Last administered on 11:43; Admin Dose 5 MG; Start 09/06/16 at 16:00 Pantoprazole (Protonix Tab) 40 mg DAILY@06 PO Last administered on 09/22/16 05 :10; Admin Dose 40 MG; Start 09/07/16 at 06:00 Atorvastatin Calcium (Lipitor) 20 mg QHS PO Last administered on 09/21/16 20: 30; Admin Dose 20 MG; Start 09/08/16 at 21:00 Docusate Sodium (Colace) 100 mg BID PRN PO CONSTIPATION; Start 09/08/16 at 13: 00 Escitalopram Oxalate (Lexapro) 10 mg DAILY PO Last administered on 09/22/16 08 :12; Admin Dose 10 MG; Start 09/09/16 at 09:00 Senna (Senokot) 1 tab Q12H PRN PO CONSTIPATION Last administered on 09/19/16 11:43; Admin Dose 1 TAB; Start 09/08/16 at 13:00 Trazodone HCl (Desyrel) 50 mg QHS PO Last administered on 09/21/16 20:30; Admin Dose 50 MG; Start 09/08/16 at 21:00 Voriconazole (Vfend) 100 mg BID PO Last administered on 09/22/16 08:10; Admin Dose 100 MG; Start 09/11/16 at 09:00 Aspirin (Halfprin) 81 mg DAILY PO Last administered on 09/22/16 08:11; Admin Dose 81 MG; Start 09/14/16 at 09:00 Promethazine HCl/ Codeine (Phenergan/ Codeine) 10 ml Q6H PRN PO COUGH Last administered on 09/22/16 13:24; Admin Dose 10 ML; Start 09/16/16 at 12:30 Furosemide 20 mg 20 mg DAILY IV Last administered on 09/22/16 08:13; Admin Dose 20 MG; Start 09/21/16 at 14:30 Cefepime HCl (Maxipime 2gm/50 ml (Pmx)) 50 ml @ 100 mls/hr Q12 IVPB Last administered on 09/22/16 13:45; Admin Dose 100 MLS/HR; Start 09/22/16 at 11:00 LUBA EARLY Sep 22, 2016 17:09
[2016-09-22 20:23] VITALS: BP 126/72; RESP 18
[2016-09-22] MEDS: ATORVASTATIN 20 MG TAB PO SCH (21:14)
[2016-09-23] MEDS: traZODone 50 MG TAB PO SCH ×2 (00:21→23:55)
[2016-09-23] MEDS: morphine 4 MG/ML VIAL IV PRN ×7 (00:22→23:49)
[2016-09-23] MEDS: ALBUTEROL/IPRATROPIUM (NEB) 3 ML AMP HHN SCH ×4 (01:41→19:31)
[2016-09-23] MEDS: PROMETHAZINE/CODEINE 5ML CUP PO PRN ×4 (04:00→23:48)
[2016-09-23] MEDS: PANTOPRAZOLE (EC) 40 MG TAB PO SCH (05:42)
[2016-09-23 06:13] LABS: ADD SCAN DIFF NO
[2016-09-23 06:31] LABS: BASOPHILS % 0.5 % (0.0-2.0); EOSINOPHILS # 0.1 10^3/ul (0.0-0.5); EOSINOPHILS % 2.1 % (0.0-7.0); HEMATOCRIT 30.7 % (42.0-52.0); HEMOGLOBIN 9.8 g/dl (14.0-18.0); LYMPHOCYTES # 0.8 10^3/ul (0.8-2.9); LYMPHOCYTES % 13.5 % (15.0-51.0); MEAN CORPUSCULAR HGB CONC 31.9 g/dl (32.0-37.0); MEAN CORPUSCULAR VOLUME 100.3 fl (82.0-101.0); MEAN PLATELET VOLUME 10.3 fl (7.4-10.4); MONOCYTE # 0.5 10^3/ul (0.3-0.9); MONOCYTES % 8.9 % (0.0-11.0); NEUTROPHIL # 4.3 10^3/ul (1.6-7.5); NEUTROPHILS % 72.9 % (39.0-77.0); PLATELET COUNT 149 10^3/UL (140-415); RED BLOOD COUNT 3.06 10^6/ul (4.70-6.10); RED CELL DISTRIBUTION WIDTH 16.2 % (11.5-14.5); WHITE BLOOD COUNT 5.9 10^3/ul (4.8-10.8)
[2016-09-23 06:51] LABS: POTASSIUM 3.8 mmol/L (3.5-5.1)
[2016-09-23 06:53] LABS: CREATININE 1.22 mg/dl (0.61-1.24)
[2016-09-23 06:54] LABS: CALCIUM 8.8 mg/dl (8.4-10.2)
[2016-09-23 07:45] VITALS: BP 106/70; RESP 20
[2016-09-23] MEDS: ESCITALOPRAM 10 MG TAB PO SCH (08:56)
[2016-09-23] MEDS: LEVOTHYROXINE 50 MCG TAB PO SCH (08:56)
[2016-09-23] MEDS: CEFEPIME 2GM/50 ML (PMX) 50 ML IVPB SCH ×2 (08:57→20:49)
[2016-09-23] MEDS: DOCUSATE SODIUM 100 MG CAP PO SCH ×3 (08:57→20:50)
[2016-09-23] MEDS: VORICONAZOLE 200 MG TAB PO SCH ×2 (08:57→20:48)
[2016-09-23] MEDS: morphine (ER) 30 MG TAB PO SCH ×2 (08:57→20:50)
[2016-09-23] MEDS: ASPIRIN (EC) 81 MG TAB PO SCH (08:57)
[2016-09-23] MEDS: FUROSEMIDE 20 MG INJ IV SCH (09:00)
--- NOTE | 2016-09-23 10:11 | CONS ---
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 in 03/2016 (unable to do biopsy), scheduled to take 6 months of voriconazole from the beginning of 2015 per his ID specialist Dr. Diamond in [place]. aspergillus antibody was > 1:64 but aspergillus antigen in serum by EIA was negative during this admission. - h/o post-obstructive pneumonia - h/o HTN, CAD, hyperlipidemia - h/o paroxysmal A fib - h/o DVT in LUE - hypothyroidism with elevated TSH level - hypomagnesemia - HIV negative in 2013 recommendations: - f/u blood cultures, urinalysis and urine culture, CXR, influenza screen - the final result of repeat sputum culture from 09/20/2016: Enterobacter, Marshal and nl ravi, sens to all abx checked - Continue cefepime for gram negative bacterial pneumonia - continue PO voriconazole at the current dose per instruction by Dr. Diamond, his ID specialist. Per Pt, he is supposed to take it for 6 months since the beginning of 04/2016 d/w Dr Tesfaye Consultation Date/Type/Reason Admit Date/Time Sep 01, 2016 at 14:47 Initial Consult Date 09/01/16 Type of Consultation: ID Referring Provider: MARYAM FARMER MD 24 HR Interval Summary Free Text/Dictation Alert, oriented, dyspneic on supplemental O2. No new c/o. Denies chills, fever, sweats, n/v/d. CXR resulted RUL consolidation and atel. U/BCx in process. SCx + enterobacter, marshal and nl ravi Constitutional: no complaints Exam/Review of Systems Vital Signs Vitals Vital Signs Date Time Temp Pulse Resp B/P Pulse Ox O2 Delivery O2 Flow Rate FiO2 09/23/16 07:45 97.6 85 20 106/70 95 09/23/16 07:42 Nasal Cannula 2.0 Intake and Output 09/22/16 09/22/16 09/23/16 15:00 23:00 07:00 Intake Total 50 ml 1290 ml 400 ml Balance 50 ml 1290 ml 400 ml Exam Constitutional: alert, obese, oriented Psych: nl mood/affect, no complaints Head: atraumatic, normocephalic Eyes: EOMI, nl conjunctiva ENMT: nl external ears & nose Neck: non-tender, supple Respiratory: other (exp wheezes B/L) Cardiovascular: regular rate and rhythm Gastrointestinal: bowel sounds, non-tender, soft Musculoskeletal: nl extremities to inspection Neurological: nl mental status Results Result Diagram: 09/23/16 0545 09/23/16 0545 Results 24 hrs Laboratory Tests Test 09/22/16 14:10 09/23/16 05:45 Urine Color LT. YELLOW Urine Clarity CLEAR Urine pH 6.5 Urine Specific [place] <=1.005 L Urine Ketones NEGATIVE Urine Nitrite NEGATIVE Urine Bilirubin NEGATIVE Urine Urobilinogen 0.2 E.U./dL Urine Leukocyte Esterase NEGATIVE Urine Microscopic RBC 2-5 Urine Microscopic WBC 0-2 Urine Hemoglobin 1+ H Urine Glucose NEGATIVE Urine Total Protein NEGATIVE White Blood Count 5.9 # Red Blood Count 3.06 L Hemoglobin 9.8 L Hematocrit 30.7 L Mean Corpuscular Volume 100.3 Mean Corpuscular Hemoglobin 32.0 Mean Corpuscular Hemoglobin Concent 31.9 L Red Cell Distribution Width 16.2 H Platelet Count 149 Mean Platelet Volume 10.3 Neutrophils % 72.9 Lymphocytes % 13.5 L Monocytes % 8.9 Eosinophils % 2.1 Basophils % 0.5 Nucleated Red Blood Cells % 0.0 Neutrophils # 4.3 Lymphocytes # 0.8 Monocytes # 0.5 Eosinophils # 0.1 Basophils # 0.0 Nucleated Red Blood Cells # 0.0 Sodium Level 140 Potassium Level 3.8 Chloride Level 99 Carbon Dioxide Level 32 H Anion Gap 13 Blood Urea Nitrogen 19 Creatinine 1.22 Glucose Level 104 Calcium Level 8.8 Medications Medications Current Medications IV Flush (NS 10 ml) 10 ml PRN PRN IV IV PROTOCOL Last administered on 11:28; Admin Dose 10 ML; Start 08/31/16 at 18:30 Metoprolol Tartrate (Lopressor) 5 mg Q4H PRN IV ELEVATED HEART RATE Last administered on 09/02/16 17:09; Admin Dose 5 MG; Start 09/02/16 at 17:30; Status Future Hold Morphine Sulfate (morphine) 4 mg Q3 PRN IV PAIN Last administered on 09/23/16 04:00; Admin Dose 4 MG; Start 09/05/16 at 17:00 Morphine Sulfate (Ms Contin (Er)) 30 mg BID PO Last administered on 09/23/16 08:57; Admin Dose 30 MG; Start 09/05/16 at 21:00 Docusate Sodium (Colace) 100 mg TID PO Last administered on 09/23/16 08:57; Admin Dose 100 MG; Start 09/06/16 at 21:00 Bisacodyl (Dulcolax) 5 mg DAILY PRN PO CONSTIPATION Last administered on 11:43; Admin Dose 5 MG; Start 09/06/16 at 16:00 Pantoprazole (Protonix Tab) 40 mg DAILY@06 PO Last administered on 09/23/16 05 :42; Admin Dose 40 MG; Start 09/07/16 at 06:00 Atorvastatin Calcium (Lipitor) 20 mg QHS PO Last administered on 09/22/16 21: 14; Admin Dose 20 MG; Start 09/08/16 at 21:00 Docusate Sodium (Colace) 100 mg BID PRN PO CONSTIPATION; Start 09/08/16 at 13: 00 Escitalopram Oxalate (Lexapro) 10 mg DAILY PO Last administered on 09/23/16 08 :56; Admin Dose 10 MG; Start 09/09/16 at 09:00 Senna (Senokot) 1 tab Q12H PRN PO CONSTIPATION Last administered on 09/19/16 11:43; Admin Dose 1 TAB; Start 09/08/16 at 13:00 Trazodone HCl (Desyrel) 50 mg QHS PO Last administered on 09/23/16 00:21; Admin Dose 50 MG; Start 09/08/16 at 21:00 Voriconazole (Vfend) 100 mg BID PO Last administered on 09/23/16 08:57; Admin Dose 100 MG; Start 09/11/16 at 09:00 Aspirin (Halfprin) 81 mg DAILY PO Last administered on 09/23/16 08:57; Admin Dose 81 MG; Start 09/14/16 at 09:00 Promethazine HCl/ Codeine (Phenergan/ Codeine) 10 ml Q6H PRN PO COUGH Last administered on 09/23/16 04:00; Admin Dose 10 ML; Start 09/16/16 at 12:30 Furosemide 20 mg 20 mg DAILY IV Last administered on 09/23/16 09:00; Admin Dose 20 MG; Start 09/21/16 at 14:30 Cefepime HCl (Maxipime 2gm/50 ml (Pmx)) 50 ml @ 100 mls/hr Q12 IVPB Last administered on 09/23/16 08:57; Admin Dose 100 MLS/HR; Start 09/22/16 at 11:00 LUKE TESFAYE M.D. 09/25/16 1023: Assessment/Plan Assessment/Plan Chief Complaint/Hosp Course Brien attestation: I discussed the management with MARY Fernandez and agree with above Problems: Exam/Review of Systems Results Result Diagram: 09/23/16 0545 09/23/16 0545 CHAD FERNANDEZ Sep 23, 2016 10:11 LUKE TESFAYE M.D. September 25, 2016 10:23
--- NOTE | 2016-09-23 10:37 | PN ---
Date/Time of Note Date/Time of Note DATE: 09/23/16 TIME: 10:36 Assessment/Plan VTE Prophylaxis VTE Prophylaxis Intervention: other Lines/Catheters IV [facility] Type [facility] PICC Line Central line still needed: Yes Assessment/Plan Chief Complaint/Hosp Course - S/p severe sepsis due to pneumonia/bronchitis, Dr. Philly perry is following infection disease consultation. Currently on cefepime for possible gram- negative pneumonia. - Advanced non-small cell lung CA, on biweekly chemotherapy infusion x2 years, Dr. Scanlon is following in oncology consultation. - Acute respiratory failure, resolving. Dr. Castanon is following in pulmonology consultation. - Pancytopenia due to chemotherapy -Acute on chronic diastolic congestive heart failure, continue gentle diuresis, continue to monitor electrolytes. -Cardiac arrhythmia, Dr. Gaytan is following in cardiology consultation. - h/o fungal pneumonia, on maintenance voriconazole - h/o post-obstructive pneumonia - h/o HTN, CAD, hyperlipidemia - h/o paroxysmal A fib - h/o DVT in LUE - h/o hypothyroidism Problems: Subjective 24 Hr Interval Summary Free Text/Dictation States that he is breathing better Exam/Review of Systems Vital Signs Vitals Vital Signs Date Time Temp Pulse Resp B/P Pulse Ox O2 Delivery O2 Flow Rate FiO2 09/23/16 07:45 97.6 85 20 106/70 95 09/23/16 07:42 Nasal Cannula 2.0 Intake and Output 09/22/16 09/22/16 09/23/16 15:00 23:00 07:00 Intake Total 50 ml 1290 ml 400 ml Balance 50 ml 1290 ml 400 ml Exam Constitutional: well developed Head: atraumatic, normocephalic Neck: supple Respiratory: labored breathing, wheezing Cardiovascular: regular rate and rhythm Gastrointestinal: non-tender, soft Extremities: normal pulses Results Result Diagram: 09/23/16 0545 09/23/16 0545 Results 24 hrs Laboratory Tests Test 09/22/16 14:10 09/23/16 05:45 Urine Color LT. YELLOW Urine Clarity CLEAR Urine pH 6.5 Urine Specific [place] <=1.005 L Urine Ketones NEGATIVE Urine Nitrite NEGATIVE Urine Bilirubin NEGATIVE Urine Urobilinogen 0.2 E.U./dL Urine Leukocyte Esterase NEGATIVE Urine Microscopic RBC 2-5 Urine Microscopic WBC 0-2 Urine Hemoglobin 1+ H Urine Glucose NEGATIVE Urine Total Protein NEGATIVE White Blood Count 5.9 # Red Blood Count 3.06 L Hemoglobin 9.8 L Hematocrit 30.7 L Mean Corpuscular Volume 100.3 Mean Corpuscular Hemoglobin 32.0 Mean Corpuscular Hemoglobin Concent 31.9 L Red Cell Distribution Width 16.2 H Platelet Count 149 Mean Platelet Volume 10.3 Neutrophils % 72.9 Lymphocytes % 13.5 L Monocytes % 8.9 Eosinophils % 2.1 Basophils % 0.5 Nucleated Red Blood Cells % 0.0 Neutrophils # 4.3 Lymphocytes # 0.8 Monocytes # 0.5 Eosinophils # 0.1 Basophils # 0.0 Nucleated Red Blood Cells # 0.0 Sodium Level 140 Potassium Level 3.8 Chloride Level 99 Carbon Dioxide Level 32 H Anion Gap 13 Blood Urea Nitrogen 19 Creatinine 1.22 Glucose Level 104 Calcium Level 8.8 Medications Medications Current Medications IV Flush (NS 10 ml) 10 ml PRN PRN IV IV PROTOCOL Last administered on 11:28; Admin Dose 10 ML; Start 08/31/16 at 18:30 Metoprolol Tartrate (Lopressor) 5 mg Q4H PRN IV ELEVATED HEART RATE Last administered on 09/02/16 17:09; Admin Dose 5 MG; Start 09/02/16 at 17:30; Status Future Hold Morphine Sulfate (morphine) 4 mg Q3 PRN IV PAIN Last administered on 09/23/16 10:25; Admin Dose 4 MG; Start 09/05/16 at 17:00 Morphine Sulfate (Ms Contin (Er)) 30 mg BID PO Last administered on 09/23/16 08:57; Admin Dose 30 MG; Start 09/05/16 at 21:00 Docusate Sodium (Colace) 100 mg TID PO Last administered on 09/23/16 08:57; Admin Dose 100 MG; Start 09/06/16 at 21:00 Bisacodyl (Dulcolax) 5 mg DAILY PRN PO CONSTIPATION Last administered on 11:43; Admin Dose 5 MG; Start 09/06/16 at 16:00 Pantoprazole (Protonix Tab) 40 mg DAILY@06 PO Last administered on 09/23/16 05 :42; Admin Dose 40 MG; Start 09/07/16 at 06:00 Atorvastatin Calcium (Lipitor) 20 mg QHS PO Last administered on 09/22/16 21: 14; Admin Dose 20 MG; Start 09/08/16 at 21:00 Docusate Sodium (Colace) 100 mg BID PRN PO CONSTIPATION; Start 09/08/16 at 13: 00 Escitalopram Oxalate (Lexapro) 10 mg DAILY PO Last administered on 09/23/16 08 :56; Admin Dose 10 MG; Start 09/09/16 at 09:00 Senna (Senokot) 1 tab Q12H PRN PO CONSTIPATION Last administered on 09/19/16 11:43; Admin Dose 1 TAB; Start 09/08/16 at 13:00 Trazodone HCl (Desyrel) 50 mg QHS PO Last administered on 09/23/16 00:21; Admin Dose 50 MG; Start 09/08/16 at 21:00 Voriconazole (Vfend) 100 mg BID PO Last administered on 09/23/16 08:57; Admin Dose 100 MG; Start 09/11/16 at 09:00 Aspirin (Halfprin) 81 mg DAILY PO Last administered on 09/23/16 08:57; Admin Dose 81 MG; Start 09/14/16 at 09:00 Promethazine HCl/ Codeine (Phenergan/ Codeine) 10 ml Q6H PRN PO COUGH Last administered on 09/23/16 10:24; Admin Dose 10 ML; Start 09/16/16 at 12:30 Furosemide 20 mg 20 mg DAILY IV Last administered on 09/23/16 09:00; Admin Dose 20 MG; Start 09/21/16 at 14:30 Cefepime HCl (Maxipime 2gm/50 ml (Pmx)) 50 ml @ 100 mls/hr Q12 IVPB Last administered on 09/23/16 08:57; Admin Dose 100 MLS/HR; Start 09/22/16 at 11:00 SAQIB DAVIS Sep 23, 2016 10:37
--- NOTE | 2016-09-23 12:52 | CONS ---
Date/Time of Note Date/Time of Note DATE: 09/23/16 TIME: 12:49 Assessment/Plan Assessment/Plan Chief Complaint/Hosp Course IMPRESSION: 1. Cardiac arrhythmia, with currently rhythm most consistent with sinus tachycardia, but also having pauses. Negative troponin x 3/TSH elevated-no recurrence/reasonable HR control 2. Abnormal electrocardiogram. trop negative x3/NL EF by echo this admit 3. Hypertension, labile. 4. Dyslipidemia. 5. Pneumonia and bronchitis. 6. Lung cancer. 7. Hypothyroidism. 8. Anemia. 9. Thrombocytopenia-now improved 10. Prior hemoptysis. 11.BNP-elevated 12.PNA Recc: -Now med-surg -Continue statin/asa -Contine voriconazole -Follow volume status closely on standing low dose lasix diuresis and follow creatnine closely -Onc/ID following -f/u sputum cx data and tailor abx as necessary Problems: Consultation Date/Type/Reason Admit Date/Time Sep 01, 2016 at 14:47 Initial Consult Date 09/01/16 Type of Consultation: Cardiology Reason for Consultation CHF Referring Provider: MARYAM FARMER MD Exam/Review of Systems Vital Signs Vitals Vital Signs Date Time Temp Pulse Resp B/P Pulse Ox O2 Delivery O2 Flow Rate FiO2 09/23/16 07:45 97.6 85 20 106/70 95 09/23/16 07:42 Nasal Cannula 2.0 Intake and Output 09/22/16 09/22/16 09/23/16 15:00 23:00 07:00 Intake Total 50 ml 1290 ml 400 ml Balance 50 ml 1290 ml 400 ml Exam Review of Systems: CONSTITUTIONAL: No fevers, chills. PULMONARY: ongoing sob CARDIOVASCULAR: No chest pain/palpitations GASTROINTESTINAL: No nausea/vomiting. GENITOURINARY: No hematuria/dysuria. MUSCULOSKELETAL: No myagias/arthalgias. PSYCHIATRIC: The patient denies depression. NEUROLOGIC: No weakness Constitutional: alert Psych: no complaints Head: normocephalic ENMT: mucosa pink and moist Neck: jvd (9 cm water), supple Respiratory: other (diffuse rhoncherous sounds) Cardiovascular: regular rate and rhythm Gastrointestinal: non-tender, soft Musculoskeletal: muscle tone (normal) Extremities: edema Neurological: other (No focal deficits) Results Result Diagram: 09/23/1645 09/23/1645 Results 24 hrs Laboratory Tests Test 09/22/16 14:10 09/23/16 05:45 Urine Color LT. YELLOW Urine Clarity CLEAR Urine pH 6.5 Urine Specific [place] <=1.005 L Urine Ketones NEGATIVE Urine Nitrite NEGATIVE Urine Bilirubin NEGATIVE Urine Urobilinogen 0.2 E.U./dL Urine Leukocyte Esterase NEGATIVE Urine Microscopic RBC 2-5 Urine Microscopic WBC 0-2 Urine Hemoglobin 1+ H Urine Glucose NEGATIVE Urine Total Protein NEGATIVE White Blood Count 5.9 # Red Blood Count 3.06 L Hemoglobin 9.8 L Hematocrit 30.7 L Mean Corpuscular Volume 100.3 Mean Corpuscular Hemoglobin 32.0 Mean Corpuscular Hemoglobin Concent 31.9 L Red Cell Distribution Width 16.2 H Platelet Count 149 Mean Platelet Volume 10.3 Neutrophils % 72.9 Lymphocytes % 13.5 L Monocytes % 8.9 Eosinophils % 2.1 Basophils % 0.5 Nucleated Red Blood Cells % 0.0 Neutrophils # 4.3 Lymphocytes # 0.8 Monocytes # 0.5 Eosinophils # 0.1 Basophils # 0.0 Nucleated Red Blood Cells # 0.0 Sodium Level 140 Potassium Level 3.8 Chloride Level 99 Carbon Dioxide Level 32 H Anion Gap 13 Blood Urea Nitrogen 19 Creatinine 1.22 Glucose Level 104 Calcium Level 8.8 Medications Medications Current Medications IV Flush (NS 10 ml) 10 ml PRN PRN IV IV PROTOCOL Last administered on 11:28; Admin Dose 10 ML; Start 08/31/16 at 18:30 Metoprolol Tartrate (Lopressor) 5 mg Q4H PRN IV ELEVATED HEART RATE Last administered on 09/02/16 17:09; Admin Dose 5 MG; Start 09/02/16 at 17:30; Status Future Hold Morphine Sulfate (morphine) 4 mg Q3 PRN IV PAIN Last administered on 09/23/16 10:25; Admin Dose 4 MG; Start 09/05/16 at 17:00 Morphine Sulfate (Ms Contin (Er)) 30 mg BID PO Last administered on 09/23/16 08:57; Admin Dose 30 MG; Start 09/05/16 at 21:00 Docusate Sodium (Colace) 100 mg TID PO Last administered on 09/23/16 08:57; Admin Dose 100 MG; Start 09/06/16 at 21:00 Bisacodyl (Dulcolax) 5 mg DAILY PRN PO CONSTIPATION Last administered on 11:43; Admin Dose 5 MG; Start 09/06/16 at 16:00 Pantoprazole (Protonix Tab) 40 mg DAILY@06 PO Last administered on 09/23/16 05 :42; Admin Dose 40 MG; Start 09/07/16 at 06:00 Atorvastatin Calcium (Lipitor) 20 mg QHS PO Last administered on 09/22/16 21: 14; Admin Dose 20 MG; Start 09/08/16 at 21:00 Docusate Sodium (Colace) 100 mg BID PRN PO CONSTIPATION; Start 09/08/16 at 13: 00 Escitalopram Oxalate (Lexapro) 10 mg DAILY PO Last administered on 09/23/16 08 :56; Admin Dose 10 MG; Start 09/09/16 at 09:00 Senna (Senokot) 1 tab Q12H PRN PO CONSTIPATION Last administered on 09/19/16 11:43; Admin Dose 1 TAB; Start 09/08/16 at 13:00 Trazodone HCl (Desyrel) 50 mg QHS PO Last administered on 09/23/16 00:21; Admin Dose 50 MG; Start 09/08/16 at 21:00 Voriconazole (Vfend) 100 mg BID PO Last administered on 09/23/16 08:57; Admin Dose 100 MG; Start 09/11/16 at 09:00 Aspirin (Halfprin) 81 mg DAILY PO Last administered on 09/23/16 08:57; Admin Dose 81 MG; Start 09/14/16 at 09:00 Promethazine HCl/ Codeine (Phenergan/ Codeine) 10 ml Q6H PRN PO COUGH Last administered on 09/23/16 10:24; Admin Dose 10 ML; Start 09/16/16 at 12:30 Furosemide 20 mg 20 mg DAILY IV Last administered on 09/23/16 09:00; Admin Dose 20 MG; Start 09/21/16 at 14:30 Cefepime HCl (Maxipime 2gm/50 ml (Pmx)) 50 ml @ 100 mls/hr Q12 IVPB Last administered on 09/23/16 08:57; Admin Dose 100 MLS/HR; Start 09/22/16 at 11:00 MARIAA ÁLVAREZ Apr 29, 2017 12:52
[2016-09-23 20:00] VITALS: BP 103/65; RESP 20
[2016-09-23] MEDS: ATORVASTATIN 20 MG TAB PO SCH (20:50)
[2016-09-24] MEDS: ALBUTEROL/IPRATROPIUM (NEB) 3 ML AMP HHN SCH ×4 (01:36→20:26)
[2016-09-24] MEDS: morphine 4 MG/ML VIAL IV PRN ×7 (03:33→21:41)
[2016-09-24] MEDS: PANTOPRAZOLE (EC) 40 MG TAB PO SCH (06:25)
[2016-09-24] MEDS: LEVOTHYROXINE 50 MCG TAB PO SCH (06:25)
[2016-09-24] MEDS: PROMETHAZINE/CODEINE 5ML CUP PO PRN ×3 (06:56→18:45)
[2016-09-24 07:44] VITALS: BP 113/58; RESP 20
[2016-09-24] MEDS: ESCITALOPRAM 10 MG TAB PO SCH (08:52)
[2016-09-24] MEDS: morphine (ER) 30 MG TAB PO SCH ×2 (08:52→20:18)
[2016-09-24] MEDS: VORICONAZOLE 200 MG TAB PO SCH ×2 (08:52→20:18)
[2016-09-24] MEDS: ASPIRIN (EC) 81 MG TAB PO SCH (08:52)
[2016-09-24] MEDS: DOCUSATE SODIUM 100 MG CAP PO SCH ×3 (08:52→20:17)
[2016-09-24] MEDS: CEFEPIME 2GM/50 ML (PMX) 50 ML IVPB SCH ×2 (08:53→20:17)
[2016-09-24] MEDS: FUROSEMIDE 20 MG INJ IV SCH (08:53)
--- NOTE | 2016-09-24 11:06 | PN ---
Date/Time of Note Date/Time of Note DATE: 09/24/16 TIME: 11:06 Assessment/Plan VTE Prophylaxis VTE Prophylaxis Intervention: other Lines/Catheters [facility] PICC Line Central line still needed: Yes Assessment/Plan Chief Complaint/Hosp Course - S/p severe sepsis due to pneumonia/bronchitis, Dr. Fraga group is following infection disease consultation. Currently on cefepime for possible gram- negative pneumonia. - Advanced non-small cell lung CA, on biweekly chemotherapy infusion x2 years, Dr. Scanlon is following in oncology consultation. - Acute respiratory failure, resolving. Dr. Castanon is following in pulmonology consultation. - Pancytopenia due to chemotherapy -Acute on chronic diastolic congestive heart failure, continue gentle diuresis, continue to monitor electrolytes. -Cardiac arrhythmia, Dr. Gaytan is following in cardiology consultation. - h/o fungal pneumonia, on maintenance voriconazole - h/o post-obstructive pneumonia - h/o HTN, CAD, hyperlipidemia - h/o paroxysmal A fib - h/o DVT in LUE - h/o hypothyroidism Problems: Subjective 24 Hr Interval Summary Free Text/Dictation Patient continues to be short of breath Exam/Review of Systems Vital Signs Vitals Vital Signs Date Time Temp Pulse Resp B/P Pulse Ox O2 Delivery O2 Flow Rate FiO2 09/24/16 07:44 98.5 97 20 113/58 94 09/24/16 07:13 Nasal Cannula 2.0 Intake and Output 09/23/16 09/23/16 09/24/16 15:00 23:00 07:00 Intake Total 50 ml 1490 ml 480 ml Balance 50 ml 1490 ml 480 ml Exam Constitutional: well developed Head: atraumatic, normocephalic Neck: supple Respiratory: wheezing Cardiovascular: regular rate and rhythm Gastrointestinal: non-tender, soft Extremities: normal pulses Results Result Diagram: 09/23/16 0545 09/23/16 0545 Medications Medications Current Medications IV Flush (NS 10 ml) 10 ml PRN PRN IV IV PROTOCOL Last administered on 11:28; Admin Dose 10 ML; Start 08/31/16 at 18:30 Metoprolol Tartrate (Lopressor) 5 mg Q4H PRN IV ELEVATED HEART RATE Last administered on 09/02/16 17:09; Admin Dose 5 MG; Start 09/02/16 at 17:30; Status Future Hold Morphine Sulfate (morphine) 4 mg Q3 PRN IV PAIN Last administered on 09/24/16 09:37; Admin Dose 4 MG; Start 09/05/16 at 17:00 Morphine Sulfate (Ms Contin (Er)) 30 mg BID PO Last administered on 09/24/16 08:52; Admin Dose 30 MG; Start 09/05/16 at 21:00 Docusate Sodium (Colace) 100 mg TID PO Last administered on 09/24/16 08:52; Admin Dose 100 MG; Start 09/06/16 at 21:00 Bisacodyl (Dulcolax) 5 mg DAILY PRN PO CONSTIPATION Last administered on 11:43; Admin Dose 5 MG; Start 09/06/16 at 16:00 Pantoprazole (Protonix Tab) 40 mg DAILY@06 PO Last administered on 09/24/16 06 :25; Admin Dose 40 MG; Start 09/07/16 at 06:00 Atorvastatin Calcium (Lipitor) 20 mg QHS PO Last administered on 09/23/16 20: 50; Admin Dose 20 MG; Start 09/08/16 at 21:00 Docusate Sodium (Colace) 100 mg BID PRN PO CONSTIPATION; Start 09/08/16 at 13: 00 Escitalopram Oxalate (Lexapro) 10 mg DAILY PO Last administered on 09/24/16 08 :52; Admin Dose 10 MG; Start 09/09/16 at 09:00 Senna (Senokot) 1 tab Q12H PRN PO CONSTIPATION Last administered on 09/19/16 11:43; Admin Dose 1 TAB; Start 09/08/16 at 13:00 Trazodone HCl (Desyrel) 50 mg QHS PO Last administered on 09/23/16 23:55; Admin Dose 50 MG; Start 09/08/16 at 21:00 Voriconazole (Vfend) 100 mg BID PO Last administered on 09/24/16 08:52; Admin Dose 100 MG; Start 09/11/16 at 09:00 Aspirin (Halfprin) 81 mg DAILY PO Last administered on 09/24/16 08:52; Admin Dose 81 MG; Start 09/14/16 at 09:00 Furosemide 20 mg 20 mg DAILY IV Last administered on 09/24/16 08:53; Admin Dose 20 MG; Start 09/21/16 at 14:30 Cefepime HCl (Maxipime 2gm/50 ml (Pmx)) 50 ml @ 100 mls/hr Q12 IVPB Last administered on 09/24/16 08:53; Admin Dose 100 MLS/HR; Start 09/22/16 at 11:00 Promethazine HCl/ Codeine (Phenergan/ Codeine) 10 ml Q6H PRN PO COUGH Last administered on 09/24/16 06:56; Admin Dose 10 ML; Start 09/24/16 at 07:00 SAQIB DAVIS Sep 24, 2016 11:06
--- NOTE | 2016-09-24 11:56 | CONS ---
Date/Time of Note Date/Time of Note DATE: 09/24/16 TIME: 11:55 Assessment/Plan Assessment/Plan Chief Complaint/Hosp Course IMPRESSION: 1. Cardiac arrhythmia, with currently rhythm most consistent with sinus tachycardia, but also having pauses. Negative troponin x 3/TSH elevated-no recurrence/reasonable HR control 2. Abnormal electrocardiogram. trop negative x3/NL EF by echo this admit 3. Hypertension, labile. 4. Dyslipidemia. 5. Pneumonia and bronchitis. 6. Lung cancer. 7. Hypothyroidism. 8. Anemia. 9. Thrombocytopenia-now improved 10. Prior hemoptysis. 11.BNP-elevated 12.PNA Recc: -Now med-surg -Continue statin/asa -Contine voriconazole -Follow volume status closely on standing low dose lasix diuresis and follow creatnine closely -Onc/ID following -f/u sputum cx data and tailor abx as necessary -venous JAIME to r/u UE DVT Problems: Consultation Date/Type/Reason Admit Date/Time Sep 01, 2016 at 14:47 Initial Consult Date 09/01/16 Type of Consultation: Cardiology Reason for Consultation cardiac arrythmia/CHF Referring Provider: MARYAM FARMER MD Exam/Review of Systems Vital Signs Vitals Vital Signs Date Time Temp Pulse Resp B/P Pulse Ox O2 Delivery O2 Flow Rate FiO2 09/24/16 07:44 98.5 97 20 113/58 94 09/24/16 07:13 Nasal Cannula 2.0 Intake and Output 09/23/16 09/23/16 09/24/16 15:00 23:00 07:00 Intake Total 50 ml 1490 ml 480 ml Balance 50 ml 1490 ml 480 ml Exam Review of Systems: CONSTITUTIONAL: No fevers, chills. PULMONARY: moderate sob CARDIOVASCULAR: No chest pain/palpitations GASTROINTESTINAL: No nausea/vomiting. GENITOURINARY: No hematuria/dysuria. MUSCULOSKELETAL: No myagias/arthalgias. PSYCHIATRIC: The patient denies depression. NEUROLOGIC: No weakness Constitutional: alert, oriented Head: normocephalic ENMT: mucosa pink and moist Neck: jvd (9 cm water), supple Respiratory: diminished breath sounds (at bases/B), other (upper airway rhoncherous sounds) Cardiovascular: regular rate and rhythm Gastrointestinal: non-tender, soft Musculoskeletal: muscle tone (normal) Extremities: other (RUE swelling) Neurological: other (None) Results Result Diagram: 09/23/1645 09/23/1645 Medications Medications Current Medications IV Flush (NS 10 ml) 10 ml PRN PRN IV IV PROTOCOL Last administered on 11:28; Admin Dose 10 ML; Start 08/31/16 at 18:30 Metoprolol Tartrate (Lopressor) 5 mg Q4H PRN IV ELEVATED HEART RATE Last administered on 09/02/16 17:09; Admin Dose 5 MG; Start 09/02/16 at 17:30; Status Future Hold Morphine Sulfate (morphine) 4 mg Q3 PRN IV PAIN Last administered on 09/24/16 09:37; Admin Dose 4 MG; Start 09/05/16 at 17:00 Morphine Sulfate (Ms Contin (Er)) 30 mg BID PO Last administered on 09/24/16 08:52; Admin Dose 30 MG; Start 09/05/16 at 21:00 Docusate Sodium (Colace) 100 mg TID PO Last administered on 09/24/16 08:52; Admin Dose 100 MG; Start 09/06/16 at 21:00 Bisacodyl (Dulcolax) 5 mg DAILY PRN PO CONSTIPATION Last administered on 11:43; Admin Dose 5 MG; Start 09/06/16 at 16:00 Pantoprazole (Protonix Tab) 40 mg DAILY@06 PO Last administered on 09/24/16 06 :25; Admin Dose 40 MG; Start 09/07/16 at 06:00 Atorvastatin Calcium (Lipitor) 20 mg QHS PO Last administered on 09/23/16 20: 50; Admin Dose 20 MG; Start 09/08/16 at 21:00 Docusate Sodium (Colace) 100 mg BID PRN PO CONSTIPATION; Start 09/08/16 at 13: 00 Escitalopram Oxalate (Lexapro) 10 mg DAILY PO Last administered on 09/24/16 08 :52; Admin Dose 10 MG; Start 09/09/16 at 09:00 Senna (Senokot) 1 tab Q12H PRN PO CONSTIPATION Last administered on 09/19/16 11:43; Admin Dose 1 TAB; Start 09/08/16 at 13:00 Trazodone HCl (Desyrel) 50 mg QHS PO Last administered on 09/23/16 23:55; Admin Dose 50 MG; Start 09/08/16 at 21:00 Voriconazole (Vfend) 100 mg BID PO Last administered on 09/24/16 08:52; Admin Dose 100 MG; Start 09/11/16 at 09:00 Aspirin (Halfprin) 81 mg DAILY PO Last administered on 09/24/16 08:52; Admin Dose 81 MG; Start 09/14/16 at 09:00 Furosemide 20 mg 20 mg DAILY IV Last administered on 09/24/16 08:53; Admin Dose 20 MG; Start 09/21/16 at 14:30 Cefepime HCl (Maxipime 2gm/50 ml (Pmx)) 50 ml @ 100 mls/hr Q12 IVPB Last administered on 09/24/16 08:53; Admin Dose 100 MLS/HR; Start 09/22/16 at 11:00 Promethazine HCl/ Codeine (Phenergan/ Codeine) 10 ml Q6H PRN PO COUGH Last administered on 09/24/16 06:56; Admin Dose 10 ML; Start 09/24/16 at 07:00 MARIAA ÁLVAREZ Sep 24, 2016 11:56
--- NOTE | 2016-09-24 15:20 | RADRPT ---
PROCEDURE: Right upper extremity venous ultrasound CLINICAL INDICATION: Right arm pain and swelling, deep venous thrombosis TECHNIQUE: Manzo scale, color doppler, spectral doppler ultrasound imaging of the venous system of the right upper extremity. Augmentation maneuvers were utilized. COMPARISON: CT scan of the chest 06/28/2015 FINDINGS: RIGHT: Internal jugular vein: Patent. Subclavian vein: Occlusive and nonocclusive thrombus. Axillary vein: Nonocclusive thrombus. Brachial vein: Nonocclusive thrombus. Basilic vein: Patent. Cephalic vein: Patent. Radial vein: Patent. Ulnar vein: Patent. IMPRESSION: Deep venous thrombosis extending from the right subclavian vein to the right brachial vein which charbel ears to be focally occlusive in the right subclavian vein. This was not present on the patient's tony or CT scan of the chest dated 06/28/2015 Results were discussed with Nurse Perrin by telephone at 1516 hours on 09/24/[address] Tomas gramajo RPTAT: AADD .Tomas Izaguirre MD, Date Time Electronically viewed and signed by .Tomas Izaguirre MD, on 09/24/2016 15:19 .B/
--- NOTE | 2016-09-24 17:44 | CONS ---
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 Diamond in [place]. aspergillus antibody was > 1:64 but aspergillus antigen in serum by EIA was negative during this admission. - h/o post-obstructive pneumonia - h/o HTN, CAD, hyperlipidemia - h/o paroxysmal A fib - h/o DVT in LUE - hypothyroidism with elevated TSH level - hypomagnesemia - HIV negative in 2013 recommendations: - continue cefepime for pneumonia due to enterobacter, plan for two weeks - continue PO voriconazole at the current dose per instruction by Dr. Diamond, his ID specialist. Per Pt, he is supposed to take it for 6 months since the beginning of 04/2016 management d/w Pt, his Problems: Consultation Date/Type/Reason Admit Date/Time Sep 01, 2016 at 14:47 Initial Consult Date 09/01/16 Type of Consultation: Cardiology Referring Provider: MARYAM FARMER MD 24 HR Interval Summary Constitutional: no complaints Detailed Summary Eyes: no complaints ENT: no complaints Respiratory: cough, shortness of breath, sputum, wheezing Cardiovascular: no complaints Gastrointestinal: no complaints Genitourinary: no complaints Musculoskeletal: no complaints Skin: other (edema of RUE) Exam/Review of Systems Vital Signs Vitals Vital Signs Date Time Temp Pulse Resp B/P Pulse Ox O2 Delivery O2 Flow Rate FiO2 09/24/16 14:54 106 26 94 Nasal Cannula 3.0 09/24/16 07:44 98.5 113/58 Intake and Output 09/23/16 09/23/16 09/24/16 15:00 23:00 07:00 Intake Total 50 ml 1490 ml 480 ml Balance 50 ml 1490 ml 480 ml Exam Constitutional: alert, oriented, well developed Psych: nl mood/affect, no complaints Head: normocephalic Eyes: nl conjunctiva, nl lids ENMT: nl external ears & nose, nl nasal mucosa & septum Respiratory: congested cough, crackles/rales, labored breathing, wheezing Cardiovascular: nl pulses, regular rate and rhythm Extremities: edema (RUE and R hand) Neurological: SLURRY TANK TENDER II-XII intact, nl mental status Results Result Diagram: 09/23/16 0545 09/23/16 0545 Medications Medications Current Medications IV Flush (NS 10 ml) 10 ml PRN PRN IV IV PROTOCOL Last administered on 11:28; Admin Dose 10 ML; Start 08/31/16 at 18:30 Metoprolol Tartrate (Lopressor) 5 mg Q4H PRN IV ELEVATED HEART RATE Last administered on 09/02/16 17:09; Admin Dose 5 MG; Start 09/02/16 at 17:30; Status Future Hold Morphine Sulfate (morphine) 4 mg Q3 PRN IV PAIN Last administered on 09/24/16 15:41; Admin Dose 4 MG; Start 09/05/16 at 17:00 Morphine Sulfate (Ms Contin (Er)) 30 mg BID PO Last administered on 09/24/16 08:52; Admin Dose 30 MG; Start 09/05/16 at 21:00 Docusate Sodium (Colace) 100 mg TID PO Last administered on 09/24/16 12:45; Admin Dose 100 MG; Start 09/06/16 at 21:00 Bisacodyl (Dulcolax) 5 mg DAILY PRN PO CONSTIPATION Last administered on 11:43; Admin Dose 5 MG; Start 09/06/16 at 16:00 Pantoprazole (Protonix Tab) 40 mg DAILY@06 PO Last administered on 09/24/16 06 :25; Admin Dose 40 MG; Start 09/07/16 at 06:00 Atorvastatin Calcium (Lipitor) 20 mg QHS PO Last administered on 09/23/16 20: 50; Admin Dose 20 MG; Start 09/08/16 at 21:00 Docusate Sodium (Colace) 100 mg BID PRN PO CONSTIPATION; Start 09/08/16 at 13: 00 Escitalopram Oxalate (Lexapro) 10 mg DAILY PO Last administered on 09/24/16 08 :52; Admin Dose 10 MG; Start 09/09/16 at 09:00 Senna (Senokot) 1 tab Q12H PRN PO CONSTIPATION Last administered on 09/19/16 11:43; Admin Dose 1 TAB; Start 09/08/16 at 13:00 Trazodone HCl (Desyrel) 50 mg QHS PO Last administered on 09/23/16 23:55; Admin Dose 50 MG; Start 09/08/16 at 21:00 Voriconazole (Vfend) 100 mg BID PO Last administered on 09/24/16 08:52; Admin Dose 100 MG; Start 09/11/16 at 09:00 Aspirin (Halfprin) 81 mg DAILY PO Last administered on 09/24/16 08:52; Admin Dose 81 MG; Start 09/14/16 at 09:00 Furosemide 20 mg 20 mg DAILY IV Last administered on 09/24/16 08:53; Admin Dose 20 MG; Start 09/21/16 at 14:30 Cefepime HCl (Maxipime 2gm/50 ml (Pmx)) 50 ml @ 100 mls/hr Q12 IVPB Last administered on 09/24/16 08:53; Admin Dose 100 MLS/HR; Start 09/22/16 at 11:00 Promethazine HCl/ Codeine (Phenergan/ Codeine) 10 ml Q6H PRN PO COUGH Last administered on 09/24/16 12:45; Admin Dose 10 ML; Start 09/24/16 at 07:00 Enoxaparin Sodium (Lovenox) 40 mg BID SC ; Start 09/24/16 at 21:00 LUKE CAAL M.D. Sep 24, 2016 17:44
[2016-09-24 20:12] VITALS: BP 117/70; RESP 20
[2016-09-24] MEDS: ATORVASTATIN 20 MG TAB PO SCH (20:18)
[2016-09-24] MEDS: ENOXAPARIN 40 MG/0.4 ML SYG SC SCH (20:26)
[2016-09-25] MEDS: morphine 4 MG/ML VIAL IV PRN ×7 (00:35→19:49)
[2016-09-25] MEDS: traZODone 50 MG TAB PO SCH (00:36)
[2016-09-25] MEDS: ALBUTEROL/IPRATROPIUM (NEB) 3 ML AMP HHN SCH ×4 (03:23→20:42)
[2016-09-25 06:17] LABS: ADD SCAN DIFF NO
[2016-09-25 06:29] LABS: BASOPHILS % 0.5 % (0.0-2.0); EOSINOPHILS # 0.1 10^3/ul (0.0-0.5); EOSINOPHILS % 2.6 % (0.0-7.0); HEMATOCRIT 29.2 % (42.0-52.0); LYMPHOCYTES # 0.7 10^3/ul (0.8-2.9); LYMPHOCYTES % 16.3 % (15.0-51.0); MEAN CORPUSCULAR HGB CONC 30.8 g/dl (32.0-37.0); MEAN CORPUSCULAR VOLUME 100.7 fl (82.0-101.0); MEAN PLATELET VOLUME 10.6 fl (7.4-10.4); MONOCYTE # 0.6 10^3/ul (0.3-0.9); MONOCYTES % 14.4 % (0.0-11.0); NEUTROPHIL # 2.7 10^3/ul (1.6-7.5); NEUTROPHILS % 64.5 % (39.0-77.0); PLATELET COUNT 156 10^3/UL (140-415); RED CELL DISTRIBUTION WIDTH 16.1 % (11.5-14.5); WHITE BLOOD COUNT 4.2 10^3/ul (4.8-10.8)
[2016-09-25] MEDS: PANTOPRAZOLE (EC) 40 MG TAB PO SCH (06:36)
[2016-09-25] MEDS: PROMETHAZINE/CODEINE 5ML CUP PO PRN ×2 (06:36→16:50)
[2016-09-25] MEDS: LEVOTHYROXINE 50 MCG TAB PO SCH (06:36)
[2016-09-25 06:48] LABS: CREATININE 0.99 mg/dl (0.61-1.24)
[2016-09-25 06:49] LABS: CALCIUM 8.7 mg/dl (8.4-10.2)
[2016-09-25 07:25] VITALS: BP 112/62; RESP 22
[2016-09-25] MEDS: CEFEPIME 2GM/50 ML (PMX) 50 ML IVPB SCH ×2 (08:11→21:23)
[2016-09-25] MEDS: FUROSEMIDE 20 MG INJ IV SCH (08:11)
[2016-09-25] MEDS: ESCITALOPRAM 10 MG TAB PO SCH (08:12)
[2016-09-25] MEDS: ASPIRIN (EC) 81 MG TAB PO SCH (08:12)
[2016-09-25] MEDS: DOCUSATE SODIUM 100 MG CAP PO SCH ×3 (08:12→21:23)
[2016-09-25] MEDS: VORICONAZOLE 200 MG TAB PO SCH ×2 (08:13→21:23)
[2016-09-25] MEDS: morphine (ER) 30 MG TAB PO SCH (08:13)
[2016-09-25] MEDS: ENOXAPARIN 40 MG/0.4 ML SYG SC SCH ×2 (08:17→21:28)
--- NOTE | 2016-09-25 10:45 | CONS ---
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 Diamond in [place]. aspergillus antibody was > 1:64 but aspergillus antigen in serum by EIA was negative during this admission. - DVT of RUE - h/o post-obstructive pneumonia - h/o HTN, CAD, hyperlipidemia - h/o paroxysmal A fib - h/o DVT in LUE - hypothyroidism with elevated TSH level - hypomagnesemia - HIV negative in 2013 recommendations: - repeat respiratory culture today - continue cefepime (09/22/2016-) for pneumonia due to enterobacter, plan for two weeks - continue PO voriconazole at the current dose per instruction by Dr. Diamond, his ID specialist. Per Pt, he is supposed to take it for 6 months since the beginning of 04/2016 management d/w Pt and his RN Problems: Consultation Date/Type/Reason Admit Date/Time Sep 01, 2016 at 14:47 Initial Consult Date 09/01/16 Type of Consultation: ID Referring Provider: MARYAM FARMER MD 24 HR Interval Summary Constitutional: other (fatigue) Detailed Summary Eyes: no complaints ENT: no complaints Respiratory: cough, shortness of breath, sputum, No pain, No pleuritic pain Cardiovascular: no complaints Genitourinary: no complaints Musculoskeletal: no complaints Neurologic: no complaints Lymphatic: other (swollen RUE) Exam/Review of Systems Vital Signs Vitals Vital Signs Date Time Temp Pulse Resp B/P Pulse Ox O2 Delivery O2 Flow Rate FiO2 09/25/16 09:00 Nasal Cannula 2.0 09/25/16 07:54 89 20 94 09/25/16 07:25 98.4 112/62 Intake and Output 09/24/16 09/24/16 09/25/16 15:00 23:00 07:00 Intake Total 50 ml 1250 ml 480 ml Output Total 0 ml Balance 50 ml 1250 ml 480 ml Exam Constitutional: alert, obese, oriented, well developed Psych: no complaints Head: atraumatic, normocephalic Eyes: nl conjunctiva ENMT: nl external ears & nose, nl nasal mucosa & septum Neck: supple Respiratory: crackles/rales, labored breathing, wheezing Cardiovascular: nl pulses, regular rate and rhythm Gastrointestinal: non-tender, soft Musculoskeletal: nl extremities to inspection Extremities: edema (RUE) Results Result Diagram: 09/25/16 0609/25/16 06 Results 24 hrs Laboratory Tests Test 09/25/16 06:02 White Blood Count 4.2 #L Red Blood Count 2.90 L Hemoglobin 9.0 L Hematocrit 29.2 L Mean Corpuscular Volume 100.7 Mean Corpuscular Hemoglobin 31.0 Mean Corpuscular Hemoglobin Concent 30.8 L Red Cell Distribution Width 16.1 H Platelet Count 156 Mean Platelet Volume 10.6 H Neutrophils % 64.5 Lymphocytes % 16.3 Monocytes % 14.4 H Eosinophils % 2.6 Basophils % 0.5 Nucleated Red Blood Cells % 0.0 Neutrophils # 2.7 Lymphocytes # 0.7 L Monocytes # 0.6 Eosinophils # 0.1 Basophils # 0.0 Nucleated Red Blood Cells # 0.0 Sodium Level 137 Potassium Level 4.0 Chloride Level 96 L Carbon Dioxide Level 31 Anion Gap 14 Blood Urea Nitrogen 23 H Creatinine 0.99 Glucose Level 91 Calcium Level 8.7 Medications Medications Current Medications IV Flush (NS 10 ml) 10 ml PRN PRN IV IV PROTOCOL Last administered on 11:28; Admin Dose 10 ML; Start 08/31/16 at 18:30 Metoprolol Tartrate (Lopressor) 5 mg Q4H PRN IV ELEVATED HEART RATE Last administered on 09/02/16 17:09; Admin Dose 5 MG; Start 09/02/16 at 17:30; Status Future Hold Morphine Sulfate (morphine) 4 mg Q3 PRN IV PAIN Last administered on 09/25/16 10:31; Admin Dose 4 MG; Start 09/05/16 at 17:00 Morphine Sulfate (Ms Contin (Er)) 30 mg BID PO Last administered on 09/25/16 08 :13; Admin Dose 30 MG; Start 09/05/16 at 21:00 Docusate Sodium (Colace) 100 mg TID PO Last administered on 09/25/16 08:12; Admin Dose 100 MG; Start 09/06/16 at 21:00 Bisacodyl (Dulcolax) 5 mg DAILY PRN PO CONSTIPATION Last administered on 11:43; Admin Dose 5 MG; Start 09/06/16 at 16:00 Pantoprazole (Protonix Tab) 40 mg DAILY@06 PO Last administered on 09/25/16 06: 36; Admin Dose 40 MG; Start 09/07/16 at 06:00 Atorvastatin Calcium (Lipitor) 20 mg QHS PO Last administered on 09/24/16 20: 18; Admin Dose 20 MG; Start 09/08/16 at 21:00 Docusate Sodium (Colace) 100 mg BID PRN PO CONSTIPATION; Start 09/08/16 at 13: 00 Escitalopram Oxalate (Lexapro) 10 mg DAILY PO Last administered on 09/25/16 08: 12; Admin Dose 10 MG; Start 09/09/16 at 09:00 Senna (Senokot) 1 tab Q12H PRN PO CONSTIPATION Last administered on 09/19/16 11:43; Admin Dose 1 TAB; Start 09/08/16 at 13:00 Trazodone HCl (Desyrel) 50 mg QHS PO Last administered on 09/25/16 00:36; Admin Dose 50 MG; Start 09/08/16 at 21:00 Voriconazole (Vfend) 100 mg BID PO Last administered on 09/25/16 08:13; Admin Dose 100 MG; Start 09/11/16 at 09:00 Aspirin (Halfprin) 81 mg DAILY PO Last administered on 09/25/16 08:12; Admin Dose 81 MG; Start 09/14/16 at 09:00 Furosemide 20 mg 20 mg DAILY IV Last administered on 09/25/16 08:11; Admin Dose 20 MG; Start 09/21/16 at 14:30 Cefepime HCl (Maxipime 2gm/50 ml (Pmx)) 50 ml @ 100 mls/hr Q12 IVPB Last administered on 09/25/16 08:11; Admin Dose 100 MLS/HR; Start 09/22/16 at 11:00 Promethazine HCl/ Codeine (Phenergan/ Codeine) 10 ml Q6H PRN PO COUGH Last administered on 09/25/16 06:36; Admin Dose 10 ML; Start 09/24/16 at 07:00 Enoxaparin Sodium (Lovenox) 40 mg BID SC Last administered on 09/25/16 08:17; Admin Dose 40 MG; Start 09/24/16 at 21:00 LUKE CAAL M.D. September 25, 2016 10:45
--- NOTE | 2016-09-25 11:11 | CONS ---
Date/Time of Note Date/Time of Note DATE: 09/25/16 TIME: 11:11 Assessment/Plan Assessment/Plan Chief Complaint/Hosp Course metastatic lung CANCER, NSCLC - ON CHEMO PANCYTOPENIA POST CHEMO LEUKOPENIA- POST CHEMO POST NEUPOGEN POST Hypoxemic respiratory failure, possibly secondary to a reaction to chemotherapy. severe pneumonia/bronchitis due to enterobacter (09/22/2016-) DVT LOVENOX History of coronary artery disease. chronic obstructive pulmonary disease Problems: Consultation Date/Type/Reason Admit Date/Time Sep 01, 2016 at 14:47 Initial Consult Date 09/01/16 Type of Consultation: hemeon Referring Provider: MARYAM FARMER MD 24 HR Interval Summary Free Text/Dictation ALL NOTED D/W PT IN DETAILS Exam/Review of Systems Vital Signs Vitals Vital Signs Date Time Temp Pulse Resp B/P Pulse Ox O2 Delivery O2 Flow Rate FiO2 09/25/16 09:00 Nasal Cannula 2.0 09/25/16 07:54 89 20 94 09/25/16 07:25 98.4 112/62 Intake and Output 09/24/16 09/24/16 09/25/16 15:00 23:00 07:00 Intake Total 50 ml 1250 ml 480 ml Output Total 0 ml Balance 50 ml 1250 ml 480 ml Exam Constitutional: alert, obese, oriented, well developed Psych: no complaints Head: atraumatic, normocephalic Eyes: nl conjunctiva ENMT: nl external ears & nose, nl nasal mucosa & septum Neck: supple Respiratory: crackles/rales, labored breathing, wheezing Cardiovascular: nl pulses, regular rate and rhythm Gastrointestinal: non-tender, soft Musculoskeletal: nl extremities to inspection Extremities: edema (RUE) Results Result Diagram: 09/25/16 0602 09/25/16 0602 Results 24 hrs Laboratory Tests Test 09/25/16 06:02 White Blood Count 4.2 #L Red Blood Count 2.90 L Hemoglobin 9.0 L Hematocrit 29.2 L Mean Corpuscular Volume 100.7 Mean Corpuscular Hemoglobin 31.0 Mean Corpuscular Hemoglobin Concent 30.8 L Red Cell Distribution Width 16.1 H Platelet Count 156 Mean Platelet Volume 10.6 H Neutrophils % 64.5 Lymphocytes % 16.3 Monocytes % 14.4 H Eosinophils % 2.6 Basophils % 0.5 Nucleated Red Blood Cells % 0.0 Neutrophils # 2.7 Lymphocytes # 0.7 L Monocytes # 0.6 Eosinophils # 0.1 Basophils # 0.0 Nucleated Red Blood Cells # 0.0 Sodium Level 137 Potassium Level 4.0 Chloride Level 96 L Carbon Dioxide Level 31 Anion Gap 14 Blood Urea Nitrogen 23 H Creatinine 0.99 Glucose Level 91 Calcium Level 8.7 Medications Medications Current Medications IV Flush (NS 10 ml) 10 ml PRN PRN IV IV PROTOCOL Last administered on 11:28; Admin Dose 10 ML; Start 08/31/16 at 18:30 Metoprolol Tartrate (Lopressor) 5 mg Q4H PRN IV ELEVATED HEART RATE Last administered on 09/02/16 17:09; Admin Dose 5 MG; Start 09/02/16 at 17:30; Status Future Hold Morphine Sulfate (morphine) 4 mg Q3 PRN IV PAIN Last administered on 09/25/16 10:31; Admin Dose 4 MG; Start 09/05/16 at 17:00 Morphine Sulfate (Ms Contin (Er)) 30 mg BID PO Last administered on 09/25/16 08 :13; Admin Dose 30 MG; Start 09/05/16 at 21:00 Docusate Sodium (Colace) 100 mg TID PO Last administered on 09/25/16 08:12; Admin Dose 100 MG; Start 09/06/16 at 21:00 Bisacodyl (Dulcolax) 5 mg DAILY PRN PO CONSTIPATION Last administered on 11:43; Admin Dose 5 MG; Start 09/06/16 at 16:00 Pantoprazole (Protonix Tab) 40 mg DAILY@06 PO Last administered on 09/25/16 06: 36; Admin Dose 40 MG; Start 09/07/16 at 06:00 Atorvastatin Calcium (Lipitor) 20 mg QHS PO Last administered on 09/24/16 20: 18; Admin Dose 20 MG; Start 09/08/16 at 21:00 Docusate Sodium (Colace) 100 mg BID PRN PO CONSTIPATION; Start 09/08/16 at 13: 00 Escitalopram Oxalate (Lexapro) 10 mg DAILY PO Last administered on 09/25/16 08: 12; Admin Dose 10 MG; Start 09/09/16 at 09:00 Senna (Senokot) 1 tab Q12H PRN PO CONSTIPATION Last administered on 09/19/16 11:43; Admin Dose 1 TAB; Start 09/08/16 at 13:00 Trazodone HCl (Desyrel) 50 mg QHS PO Last administered on 09/25/16 00:36; Admin Dose 50 MG; Start 09/08/16 at 21:00 Voriconazole (Vfend) 100 mg BID PO Last administered on 09/25/16 08:13; Admin Dose 100 MG; Start 09/11/16 at 09:00 Aspirin (Halfprin) 81 mg DAILY PO Last administered on 09/25/16 08:12; Admin Dose 81 MG; Start 09/14/16 at 09:00 Furosemide 20 mg 20 mg DAILY IV Last administered on 09/25/16 08:11; Admin Dose 20 MG; Start 09/21/16 at 14:30 Cefepime HCl (Maxipime 2gm/50 ml (Pmx)) 50 ml @ 100 mls/hr Q12 IVPB Last administered on 09/25/16 08:11; Admin Dose 100 MLS/HR; Start 09/22/16 at 11:00 Promethazine HCl/ Codeine (Phenergan/ Codeine) 10 ml Q6H PRN PO COUGH Last administered on 09/25/16 06:36; Admin Dose 10 ML; Start 09/24/16 at 07:00 Enoxaparin Sodium (Lovenox) 40 mg BID SC Last administered on 09/25/16 08:17; Admin Dose 40 MG; Start 09/24/16 at 21:00 DAHIANA BABCOCK MD September 25, 2016 11:11
--- NOTE | 2016-09-25 13:29 | CONS ---
Date/Time of Note Date/Time of Note DATE: 09/25/16 TIME: 13:24 Assessment/Plan Assessment/Plan Chief Complaint/Hosp Course IMPRESSION: 1. Cardiac arrhythmia, with currently rhythm most consistent with sinus tachycardia, but also having pauses. Negative troponin x 3/TSH elevated-no recurrence/reasonable HR control 2. Abnormal electrocardiogram. trop negative x3/NL EF by echo this admit 3. Hypertension, labile. 4. Dyslipidemia. 5. Pneumonia and bronchitis. 6. Lung cancer. 7. Hypothyroidism. 8. Anemia. 9. Thrombocytopenia-now improved 10. Prior hemoptysis. 11.BNP-elevated 12.PNA 13. R UE DVT-now on low dose lovenox Recc: -Now med-surg -Continue statin/asa -Contine voriconazole -Follow volume status closely on standing low dose lasix diuresis and follow creatnine closely -Onc/ID following -f/u sputum cx data and tailor abx as necessary -Contiue lovenox anticoagulation Problems: Consultation Date/Type/Reason Admit Date/Time Sep 01, 2016 at 14:47 Initial Consult Date 09/01/16 Type of Consultation: Cardiology Reason for Consultation CHF Referring Provider: MARYAM FARMER MD Exam/Review of Systems Vital Signs Vitals Vital Signs Date Time Temp Pulse Resp B/P Pulse Ox O2 Delivery O2 Flow Rate FiO2 09/25/16 09:00 Nasal Cannula 2.0 09/25/16 07:54 89 20 94 09/25/16 07:25 98.4 112/62 Intake and Output 09/24/16 09/24/16 09/25/16 15:00 23:00 07:00 Intake Total 50 ml 1250 ml 480 ml Output Total 0 ml Balance 50 ml 1250 ml 480 ml Exam Review of Systems: CONSTITUTIONAL: No fevers, chills. PULMONARY: ongoing sob CARDIOVASCULAR: No chest pain/palpitations GASTROINTESTINAL: No nausea/vomiting. GENITOURINARY: No hematuria/dysuria. MUSCULOSKELETAL: No myagias/arthalgias. PSYCHIATRIC: The patient denies depression. NEUROLOGIC: No weakness Constitutional: alert, oriented Psych: no complaints Head: normocephalic ENMT: mucosa pink and moist Neck: jvd (9 cm water), supple Respiratory: diminished breath sounds (at bases/B) Cardiovascular: regular rate and rhythm Gastrointestinal: non-tender, soft Musculoskeletal: muscle tone (normal) Extremities: edema (none) Neurological: other (No focal deficits) Results Result Diagram: 09/25/16 0602 09/25/16 0602 Results 24 hrs Laboratory Tests Test 09/25/16 06:02 White Blood Count 4.2 #L Red Blood Count 2.90 L Hemoglobin 9.0 L Hematocrit 29.2 L Mean Corpuscular Volume 100.7 Mean Corpuscular Hemoglobin 31.0 Mean Corpuscular Hemoglobin Concent 30.8 L Red Cell Distribution Width 16.1 H Platelet Count 156 Mean Platelet Volume 10.6 H Neutrophils % 64.5 Lymphocytes % 16.3 Monocytes % 14.4 H Eosinophils % 2.6 Basophils % 0.5 Nucleated Red Blood Cells % 0.0 Neutrophils # 2.7 Lymphocytes # 0.7 L Monocytes # 0.6 Eosinophils # 0.1 Basophils # 0.0 Nucleated Red Blood Cells # 0.0 Sodium Level 137 Potassium Level 4.0 Chloride Level 96 L Carbon Dioxide Level 31 Anion Gap 14 Blood Urea Nitrogen 23 H Creatinine 0.99 Glucose Level 91 Calcium Level 8.7 Medications Medications Current Medications IV Flush (NS 10 ml) 10 ml PRN PRN IV IV PROTOCOL Last administered on 11:28; Admin Dose 10 ML; Start 08/31/16 at 18:30 Metoprolol Tartrate (Lopressor) 5 mg Q4H PRN IV ELEVATED HEART RATE Last administered on 09/02/16 17:09; Admin Dose 5 MG; Start 09/02/16 at 17:30; Status Future Hold Morphine Sulfate (morphine) 4 mg Q3 PRN IV PAIN Last administered on 09/25/16 10:31; Admin Dose 4 MG; Start 09/05/16 at 17:00 Morphine Sulfate (Ms Contin (Er)) 30 mg BID PO Last administered on 09/25/16 08 :13; Admin Dose 30 MG; Start 09/05/16 at 21:00 Docusate Sodium (Colace) 100 mg TID PO Last administered on 09/25/16 12:55; Admin Dose 100 MG; Start 09/06/16 at 21:00 Bisacodyl (Dulcolax) 5 mg DAILY PRN PO CONSTIPATION Last administered on 11:43; Admin Dose 5 MG; Start 09/06/16 at 16:00 Pantoprazole (Protonix Tab) 40 mg DAILY@06 PO Last administered on 09/25/16 06: 36; Admin Dose 40 MG; Start 09/07/16 at 06:00 Atorvastatin Calcium (Lipitor) 20 mg QHS PO Last administered on 09/24/16 20: 18; Admin Dose 20 MG; Start 09/08/16 at 21:00 Docusate Sodium (Colace) 100 mg BID PRN PO CONSTIPATION; Start 09/08/16 at 13: 00 Escitalopram Oxalate (Lexapro) 10 mg DAILY PO Last administered on 09/25/16 08: 12; Admin Dose 10 MG; Start 09/09/16 at 09:00 Senna (Senokot) 1 tab Q12H PRN PO CONSTIPATION Last administered on 09/19/16 11:43; Admin Dose 1 TAB; Start 09/08/16 at 13:00 Trazodone HCl (Desyrel) 50 mg QHS PO Last administered on 09/25/16 00:36; Admin Dose 50 MG; Start 09/08/16 at 21:00 Voriconazole (Vfend) 100 mg BID PO Last administered on 09/25/16 08:13; Admin Dose 100 MG; Start 09/11/16 at 09:00 Aspirin (Halfprin) 81 mg DAILY PO Last administered on 09/25/16 08:12; Admin Dose 81 MG; Start 09/14/16 at 09:00 Furosemide 20 mg 20 mg DAILY IV Last administered on 09/25/16 08:11; Admin Dose 20 MG; Start 09/21/16 at 14:30 Cefepime HCl (Maxipime 2gm/50 ml (Pmx)) 50 ml @ 100 mls/hr Q12 IVPB Last administered on 09/25/16 08:11; Admin Dose 100 MLS/HR; Start 09/22/16 at 11:00 Promethazine HCl/ Codeine (Phenergan/ Codeine) 10 ml Q6H PRN PO COUGH Last administered on 09/25/16 06:36; Admin Dose 10 ML; Start 09/24/16 at 07:00 Enoxaparin Sodium (Lovenox) 40 mg BID SC Last administered on 09/25/16 08:17; Admin Dose 40 MG; Start 4/30/17 at 21:00 MARIAA ÁLVAREZ September 25, 2016 13:29
--- NOTE | 2016-09-25 19:12 | PN ---
Date/Time of Note Date/Time of Note DATE: 09/25/16 TIME: 19:08 Assessment/Plan VTE Prophylaxis VTE Prophylaxis Intervention: SCD's Lines/Catheters IV [facility]from [facility] PICC Line Central line still needed: Yes Assessment/Plan Chief Complaint/Hosp Course Assessment/Plan - S/p severe sepsis due to pneumonia/bronchitis, Dr. Fraga group is following infection disease consultation. -Enterobacter pneumonia, continue antibiotics per ID. - Advanced non-small cell lung CA, on biweekly chemotherapy infusion x2 years, Dr. Scanlon is following in oncology consultation. - Acute respiratory failure, resolving. Dr. Castanon is following in pulmonology consultation. - Pancytopenia due to chemotherapy -Right upper extremities deep venous thrombosis, continue Lovenox. -Acute on chronic diastolic congestive heart failure, continue gentle diuresis, continue to monitor electrolytes. -Cardiac arrhythmia, Dr. Gaytan is following in cardiology consultation. - h/o fungal pneumonia, on maintenance voriconazole - h/o post-obstructive pneumonia - h/o HTN, CAD, hyperlipidemia - h/o paroxysmal A fib - h/o DVT in LUE - h/o hypothyroidism Further recommendations based on clinical course. Plan of care discussed with Dr. Lincoln. Problems: Subjective 24 Hr Interval Summary Free Text/Dictation Patient's complains of cough, get extremely short of breath when patient get out of bed. Exam/Review of Systems Vital Signs Vitals Vital Signs Date Time Temp Pulse Resp B/P Pulse Ox O2 Delivery O2 Flow Rate FiO2 09/25/16 14:19 97 2.0 09/25/16 14:19 84 20 Nasal Cannula 09/25/16 07:25 98.4 112/62 Intake and Output 09/24/16 09/24/16 09/25/16 14:59 22:59 06:59 Intake Total 50 ml 1250 ml 480 ml Output Total 0 ml Balance 50 ml 1250 ml 480 ml Exam Constitutional: alert, oriented Psych: nl mood/affect, no complaints Head: atraumatic, normocephalic Eyes: nl conjunctiva ENMT: nl external ears & nose Neck: non-tender, supple Respiratory: diminished breath sounds, wheezing Cardiovascular: nl pulses, regular rate and rhythm Gastrointestinal: non-tender, soft Musculoskeletal: nl extremities to inspection Extremities: normal pulses Neurological: ACADEMIC ASSOCIATE II-XII intact Results Result Diagram: 09/25/16 0602 09/25/16 0602 Results 24 hrs Laboratory Tests Test 09/25/16 06:02 White Blood Count 4.2 #L Red Blood Count 2.90 L Hemoglobin 9.0 L Hematocrit 29.2 L Mean Corpuscular Volume 100.7 Mean Corpuscular Hemoglobin 31.0 Mean Corpuscular Hemoglobin Concent 30.8 L Red Cell Distribution Width 16.1 H Platelet Count 156 Mean Platelet Volume 10.6 H Neutrophils % 64.5 Lymphocytes % 16.3 Monocytes % 14.4 H Eosinophils % 2.6 Basophils % 0.5 Nucleated Red Blood Cells % 0.0 Neutrophils # 2.7 Lymphocytes # 0.7 L Monocytes # 0.6 Eosinophils # 0.1 Basophils # 0.0 Nucleated Red Blood Cells # 0.0 Sodium Level 137 Potassium Level 4.0 Chloride Level 96 L Carbon Dioxide Level 31 Anion Gap 14 Blood Urea Nitrogen 23 H Creatinine 0.99 Glucose Level 91 Calcium Level 8.7 Medications Medications Current Medications IV Flush (NS 10 ml) 10 ml PRN PRN IV IV PROTOCOL Last administered on 11:28; Admin Dose 10 ML; Start 08/31/16 at 18:30 Metoprolol Tartrate (Lopressor) 5 mg Q4H PRN IV ELEVATED HEART RATE Last administered on 09/02/16 17:09; Admin Dose 5 MG; Start 09/02/16 at 17:30; Status Future Hold Morphine Sulfate (morphine) 4 mg Q3 PRN IV PAIN Last administered on 09/25/16 16:46; Admin Dose 4 MG; Start 09/05/16 at 17:00 Morphine Sulfate (Ms Contin (Er)) 30 mg BID PO Last administered on 09/25/16 08 :13; Admin Dose 30 MG; Start 09/05/16 at 21:00 Docusate Sodium (Colace) 100 mg TID PO Last administered on 09/25/16 12:55; Admin Dose 100 MG; Start 09/06/16 at 21:00 Bisacodyl (Dulcolax) 5 mg DAILY PRN PO CONSTIPATION Last administered on 11:43; Admin Dose 5 MG; Start 09/06/16 at 16:00 Pantoprazole (Protonix Tab) 40 mg DAILY@06 PO Last administered on 09/25/16 06: 36; Admin Dose 40 MG; Start 09/07/16 at 06:00 Atorvastatin Calcium (Lipitor) 20 mg QHS PO Last administered on 09/24/16 20: 18; Admin Dose 20 MG; Start 09/08/16 at 21:00 Docusate Sodium (Colace) 100 mg BID PRN PO CONSTIPATION; Start 09/08/16 at 13: 00 Escitalopram Oxalate (Lexapro) 10 mg DAILY PO Last administered on 09/25/16 08: 12; Admin Dose 10 MG; Start 09/09/16 at 09:00 Senna (Senokot) 1 tab Q12H PRN PO CONSTIPATION Last administered on 09/19/16 11:43; Admin Dose 1 TAB; Start 09/08/16 at 13:00 Trazodone HCl (Desyrel) 50 mg QHS PO Last administered on 09/25/16 00:36; Admin Dose 50 MG; Start 09/08/16 at 21:00 Voriconazole (Vfend) 100 mg BID PO Last administered on 09/25/16 08:13; Admin Dose 100 MG; Start 09/11/16 at 09:00 Aspirin (Halfprin) 81 mg DAILY PO Last administered on 09/25/16 08:12; Admin Dose 81 MG; Start 09/14/16 at 09:00 Furosemide 20 mg 20 mg DAILY IV Last administered on 09/25/16 08:11; Admin Dose 20 MG; Start 09/21/16 at 14:30 Cefepime HCl (Maxipime 2gm/50 ml (Pmx)) 50 ml @ 100 mls/hr Q12 IVPB Last administered on 09/25/16 08:11; Admin Dose 100 MLS/HR; Start 09/22/16 at 11:00 Promethazine HCl/ Codeine (Phenergan/ Codeine) 10 ml Q6H PRN PO COUGH Last administered on 09/25/16 16:50; Admin Dose 10 ML; Start 09/24/16 at 07:00 Enoxaparin Sodium (Lovenox) 40 mg BID SC Last administered on 09/25/16 08:17; Admin Dose 40 MG; Start 09/24/16 at 21:00 LUBA EARLY September 25, 2016 19:12
[2016-09-25 19:52] VITALS: BP 133/67; PULSE 96; RESP 19
[2016-09-25] MEDS: ATORVASTATIN 20 MG TAB PO SCH (21:24)
[2016-09-25] MEDS ORDERED: morphine (ER) 15 MG TAB PO ONE (21:30)
[2016-09-25] MEDS: morphine (ER) 15 MG TAB PO SCH (21:30)
[2016-09-26] MEDS: traZODone 50 MG TAB PO SCH ×2 (00:18→20:45)
[2016-09-26] MEDS: morphine 4 MG/ML VIAL IV PRN ×8 (00:19→21:59)
[2016-09-26] MEDS: ALBUTEROL/IPRATROPIUM (NEB) 3 ML AMP HHN SCH ×4 (01:24→20:50)
[2016-09-26 05:42] LABS: ADD SCAN DIFF NO
[2016-09-26 05:47] LABS: ABNORMAL IP MESSAGE 1; BASOPHILS % 0.6 % (0.0-2.0); EOSINOPHILS # 0.1 10^3/ul (0.0-0.5); HEMATOCRIT 28.8 % (42.0-52.0); HEMOGLOBIN 9.2 g/dl (14.0-18.0); LYMPHOCYTES # 0.6 10^3/ul (0.8-2.9); LYMPHOCYTES % 15.2 % (15.0-51.0); MEAN CORPUSCULAR HEMOGLOBIN 31.9 pg (29.0-33.0); MEAN CORPUSCULAR HGB CONC 31.9 g/dl (32.0-37.0); MEAN PLATELET VOLUME 10.5 fl (7.4-10.4); MONOCYTE # 0.5 10^3/ul (0.3-0.9); MONOCYTES % 14.6 % (0.0-11.0); NEUTROPHIL # 2.4 10^3/ul (1.6-7.5); NEUTROPHILS % 65.5 % (39.0-77.0); PLATELET COUNT 175 10^3/UL (140-415); RED BLOOD COUNT 2.88 10^6/ul (4.70-6.10); RED CELL DISTRIBUTION WIDTH 15.9 % (11.5-14.5); WHITE BLOOD COUNT 3.6 10^3/ul (4.8-10.8)
[2016-09-26 06:12] LABS: CALCIUM 8.8 mg/dl (8.4-10.2); CREATININE 0.93 mg/dl (0.61-1.24)
[2016-09-26] MEDS: PANTOPRAZOLE (EC) 40 MG TAB PO SCH (06:17)
[2016-09-26] MEDS: LEVOTHYROXINE 50 MCG TAB PO SCH (06:17)
--- NOTE | 2016-09-26 07:02 | CONS ---
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 Diamond in [place]. aspergillus antibody was > 1:64 but aspergillus antigen in serum by EIA was negative during this admission DVT of RUE LOVENOX POST Hypoxemic respiratory failure, possibly secondary to a reaction to chemotherapy. History of coronary artery disease. chronic obstructive pulmonary disease Deep venous thrombosis and gastrointestinal prophylaxis. chemo on hold Problems: Consultation Date/Type/Reason Admit Date/Time Sep 01, 2016 at 14:47 Initial Consult Date 09/01/16 Type of Consultation: hemepnc Referring Provider: MARYAM FARMER MD 24 HR Interval Summary Free Text/Dictation all noted DVT- ON LOVENOX + sputum for Enterobacter- on ATB severe pneumonia/bronchitis due to enterobacter (09/22/2016-) Exam/Review of Systems Vital Signs Vitals Vital Signs Date Time Temp Pulse Resp B/P Pulse Ox O2 Delivery O2 Flow Rate FiO2 09/26/16 01:23 2.0 09/25/16 20:42 105 20 95 Nasal Cannula 09/25/16 19:52 98.6 133/67 Intake and Output 09/25/16 09/25/16 09/26/16 15:00 23:00 07:00 Intake Total 50 ml 2180 ml 500 ml Balance 50 ml 2180 ml 500 ml Exam Constitutional: alert, obese, oriented, well developed Psych: no complaints Head: atraumatic, normocephalic Eyes: nl conjunctiva ENMT: nl external ears & nose, nl nasal mucosa & septum Neck: supple Respiratory: crackles/rales, labored breathing, wheezing Cardiovascular: nl pulses, regular rate and rhythm Gastrointestinal: non-tender, soft Musculoskeletal: nl extremities to inspection Extremities: edema (RUE) Results Result Diagram: 09/26/16 0515 09/26/16 0515 Results 24 hrs Laboratory Tests Test 09/26/16 05:15 White Blood Count 3.6 L Red Blood Count 2.88 L Hemoglobin 9.2 L Hematocrit 28.8 L Mean Corpuscular Volume 100.0 Mean Corpuscular Hemoglobin 31.9 Mean Corpuscular Hemoglobin Concent 31.9 L Red Cell Distribution Width 15.9 H Platelet Count 175 Mean Platelet Volume 10.5 H Neutrophils % 65.5 Lymphocytes % 15.2 Monocytes % 14.6 H Eosinophils % 3.0 Basophils % 0.6 Nucleated Red Blood Cells % 0.0 Neutrophils # 2.4 Lymphocytes # 0.6 L Monocytes # 0.5 Eosinophils # 0.1 Basophils # 0.0 Nucleated Red Blood Cells # 0.0 Sodium Level 136 Potassium Level 4.0 Chloride Level 99 Carbon Dioxide Level 32 H Anion Gap 9 # Blood Urea Nitrogen 18 Creatinine 0.93 Glucose Level 96 Calcium Level 8.8 Medications Medications Current Medications IV Flush (NS 10 ml) 10 ml PRN PRN IV IV PROTOCOL Last administered on 11:28; Admin Dose 10 ML; Start 08/31/16 at 18:30 Metoprolol Tartrate (Lopressor) 5 mg Q4H PRN IV ELEVATED HEART RATE Last administered on 09/02/16 17:09; Admin Dose 5 MG; Start 09/02/16 at 17:30; Status Future Hold Morphine Sulfate (morphine) 4 mg Q3 PRN IV PAIN Last administered on 09/26/16 06:20; Admin Dose 4 MG; Start 09/05/16 at 17:00 Docusate Sodium (Colace) 100 mg TID PO Last administered on 09/25/16 21:23; Admin Dose 100 MG; Start 09/06/16 at 21:00 Bisacodyl (Dulcolax) 5 mg DAILY PRN PO CONSTIPATION Last administered on 11:43; Admin Dose 5 MG; Start 09/06/16 at 16:00 Pantoprazole (Protonix Tab) 40 mg DAILY@06 PO Last administered on 09/26/16 06: 17; Admin Dose 40 MG; Start 09/07/16 at 06:00 Atorvastatin Calcium (Lipitor) 20 mg QHS PO Last administered on 09/25/16 21:24 ; Admin Dose 20 MG; Start 09/08/16 at 21:00 Docusate Sodium (Colace) 100 mg BID PRN PO CONSTIPATION; Start 09/08/16 at 13: 00 Escitalopram Oxalate (Lexapro) 10 mg DAILY PO Last administered on 09/25/16 08: 12; Admin Dose 10 MG; Start 09/09/16 at 09:00 Senna (Senokot) 1 tab Q12H PRN PO CONSTIPATION Last administered on 09/19/16 11:43; Admin Dose 1 TAB; Start 09/08/16 at 13:00 Trazodone HCl (Desyrel) 50 mg QHS PO Last administered on 09/26/16 00:18; Admin Dose 50 MG; Start 09/08/16 at 21:00 Voriconazole (Vfend) 100 mg BID PO Last administered on 09/25/16 21:23; Admin Dose 100 MG; Start 09/11/16 at 09:00 Aspirin (Halfprin) 81 mg DAILY PO Last administered on 09/25/16 08:12; Admin Dose 81 MG; Start 09/14/16 at 09:00 Furosemide 20 mg 20 mg DAILY IV Last administered on 09/25/16 08:11; Admin Dose 20 MG; Start 09/21/16 at 14:30 Cefepime HCl (Maxipime 2gm/50 ml (Pmx)) 50 ml @ 100 mls/hr Q12 IVPB Last administered on 09/25/16 21:23; Admin Dose 100 MLS/HR; Start 09/22/16 at 11:00 Promethazine HCl/ Codeine (Phenergan/ Codeine) 10 ml Q6H PRN PO COUGH Last administered on 09/25/16 16:50; Admin Dose 10 ML; Start 09/24/16 at 07:00 Enoxaparin Sodium (Lovenox) 40 mg BID SC Last administered on 09/25/16 21:28; Admin Dose 40 MG; Start 09/24/16 at 21:00 Morphine Sulfate (Ms Contin (Er)) 45 mg BID PO ; Start 09/25/16 at 21:30 DAHIANA BABCOCK MD September 26, 2016 07:02
[2016-09-26 07:42] VITALS: BP 121/71; RESP 22
[2016-09-26] MEDS: VORICONAZOLE 200 MG TAB PO SCH ×2 (09:02→20:46)
[2016-09-26] MEDS: ASPIRIN (EC) 81 MG TAB PO SCH (09:02)
[2016-09-26] MEDS: morphine (ER) 15 MG TAB PO SCH ×2 (09:02→20:46)
[2016-09-26] MEDS: CEFEPIME 2GM/50 ML (PMX) 50 ML IVPB SCH ×2 (09:03→20:46)
[2016-09-26] MEDS: ESCITALOPRAM 10 MG TAB PO SCH (09:03)
[2016-09-26] MEDS: DOCUSATE SODIUM 100 MG CAP PO SCH ×3 (09:03→20:45)
[2016-09-26] MEDS: FUROSEMIDE 20 MG INJ IV SCH (09:04)
[2016-09-26] MEDS: ENOXAPARIN 40 MG/0.4 ML SYG SC SCH ×2 (09:08→20:50)
[2016-09-26] MEDS: PROMETHAZINE/CODEINE 5ML CUP PO PRN ×2 (09:10→19:11)
--- NOTE | 2016-09-26 11:54 | CONS ---
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 Diamond in [place]. aspergillus antibody was > 1:64 but aspergillus antigen in serum by EIA was negative during this admission. - DVT of RUE - b/l knee pain - h/o post-obstructive pneumonia - h/o HTN, CAD, hyperlipidemia - h/o paroxysmal A fib - h/o DVT in LUE - hypothyroidism with elevated TSH level - hypomagnesemia - HIV negative in 2013 recommendations: - pending: respiratory culture from 09/25/2016 - continue cefepime (09/22/2016-) for pneumonia due to enterobacter, plan for two weeks through 10/06/2016 - continue PO voriconazole at the current dose per instruction by Dr. Diamond, his ID specialist. Per Pt, he is supposed to take it for 6 months since the beginning of 04/2016 - will order b/l knee XR (Pt c/o pain in b/l knee) management d/w Pt and his RN Problems: Consultation Date/Type/Reason Admit Date/Time Sep 01, 2016 at 14:47 Initial Consult Date 09/01/16 Type of Consultation: ID Referring Provider: MARYAM FARMER MD 24 HR Interval Summary Constitutional: no complaints Detailed Summary Eyes: no complaints ENT: no complaints Respiratory: cough, shortness of breath, sputum, wheezing, No pain, No pleuritic pain Cardiovascular: no complaints Gastrointestinal: no complaints Genitourinary: no complaints Musculoskeletal: bone/joint pain (b/l knee pain) Skin: no complaints Exam/Review of Systems Vital Signs Vitals Vital Signs Date Time Temp Pulse Resp B/P Pulse Ox O2 Delivery O2 Flow Rate FiO2 09/26/16 08:36 99 18 94 Nasal Cannula 2.0 09/26/16 07:42 98.6 121/71 Intake and Output 09/25/16 09/25/16 09/26/16 15:00 23:00 07:00 Intake Total 50 ml 2180 ml 500 ml Balance 50 ml 2180 ml 500 ml Exam Constitutional: alert, obese, well developed Psych: nl mood/affect, no complaints Head: atraumatic, normocephalic Eyes: nl conjunctiva, nl lids ENMT: nl external ears & nose, nl nasal mucosa & septum Neck: supple Respiratory: clear to auscultation, wheezing Cardiovascular: nl pulses, regular rate and rhythm Musculoskeletal: No joint tenderness, No swelling Extremities: edema (RUE) Results Result Diagram: 09/26/16 0515 09/26/16 0515 Results 24 hrs Laboratory Tests Test 09/26/16 05:15 White Blood Count 3.6 L Red Blood Count 2.88 L Hemoglobin 9.2 L Hematocrit 28.8 L Mean Corpuscular Volume 100.0 Mean Corpuscular Hemoglobin 31.9 Mean Corpuscular Hemoglobin Concent 31.9 L Red Cell Distribution Width 15.9 H Platelet Count 175 Mean Platelet Volume 10.5 H Neutrophils % 65.5 Lymphocytes % 15.2 Monocytes % 14.6 H Eosinophils % 3.0 Basophils % 0.6 Nucleated Red Blood Cells % 0.0 Neutrophils # 2.4 Lymphocytes # 0.6 L Monocytes # 0.5 Eosinophils # 0.1 Basophils # 0.0 Nucleated Red Blood Cells # 0.0 Sodium Level 136 Potassium Level 4.0 Chloride Level 99 Carbon Dioxide Level 32 H Anion Gap 9 # Blood Urea Nitrogen 18 Creatinine 0.93 Glucose Level 96 Calcium Level 8.8 Medications Medications Current Medications IV Flush (NS 10 ml) 10 ml PRN PRN IV IV PROTOCOL Last administered on 11:28; Admin Dose 10 ML; Start 08/31/16 at 18:30 Metoprolol Tartrate (Lopressor) 5 mg Q4H PRN IV ELEVATED HEART RATE Last administered on 09/02/16 17:09; Admin Dose 5 MG; Start 09/02/16 at 17:30; Status Future Hold Morphine Sulfate (morphine) 4 mg Q3 PRN IV PAIN Last administered on 09/26/16 09:52; Admin Dose 4 MG; Start 09/05/16 at 17:00 Docusate Sodium (Colace) 100 mg TID PO Last administered on 09/26/16 09:03; Admin Dose 100 MG; Start 09/06/16 at 21:00 Bisacodyl (Dulcolax) 5 mg DAILY PRN PO CONSTIPATION Last administered on 11:43; Admin Dose 5 MG; Start 09/06/16 at 16:00 Pantoprazole (Protonix Tab) 40 mg DAILY@06 PO Last administered on 09/26/16 06: 17; Admin Dose 40 MG; Start 09/07/16 at 06:00 Atorvastatin Calcium (Lipitor) 20 mg QHS PO Last administered on 09/25/16 21:24 ; Admin Dose 20 MG; Start 09/08/16 at 21:00 Docusate Sodium (Colace) 100 mg BID PRN PO CONSTIPATION; Start 09/08/16 at 13: 00 Escitalopram Oxalate (Lexapro) 10 mg DAILY PO Last administered on 09/26/16 09: 03; Admin Dose 10 MG; Start 09/09/16 at 09:00 Senna (Senokot) 1 tab Q12H PRN PO CONSTIPATION Last administered on 09/19/16 11:43; Admin Dose 1 TAB; Start 09/08/16 at 13:00 Trazodone HCl (Desyrel) 50 mg QHS PO Last administered on 09/26/16 00:18; Admin Dose 50 MG; Start 09/08/16 at 21:00 Voriconazole (Vfend) 100 mg BID PO Last administered on 09/26/16 09:02; Admin Dose 100 MG; Start 09/11/16 at 09:00 Aspirin (Halfprin) 81 mg DAILY PO Last administered on 09/26/16 09:02; Admin Dose 81 MG; Start 09/14/16 at 09:00 Furosemide 20 mg 20 mg DAILY IV Last administered on 09/26/16 09:04; Admin Dose 20 MG; Start 09/21/16 at 14:30 Cefepime HCl (Maxipime 2gm/50 ml (Pmx)) 50 ml @ 100 mls/hr Q12 IVPB Last administered on 09/26/16 09:03; Admin Dose 100 MLS/HR; Start 09/22/16 at 11:00 Promethazine HCl/ Codeine (Phenergan/ Codeine) 10 ml Q6H PRN PO COUGH Last administered on 09/26/16 09:10; Admin Dose 10 ML; Start 09/24/16 at 07:00 Enoxaparin Sodium (Lovenox) 40 mg BID SC Last administered on 09/26/16 09:08; Admin Dose 40 MG; Start 09/24/16 at 21:00 Morphine Sulfate (Ms Contin (Er)) 45 mg BID PO Last administered on 09/26/16 09 :02; Admin Dose 45 MG; Start 09/25/16 at 21:30 LUKE CAAL M.D. September 26, 2016 11:54
--- NOTE | 2016-09-26 13:20 | PN ---
Date/Time of Note Date/Time of Note DATE: 09/26/16 TIME: 13:16 Assessment/Plan VTE Prophylaxis VTE Prophylaxis Intervention: SCD's Lines/Catheters IV Catheter Type (from [facility]): PICC Line Central line still needed: Yes Assessment/Plan Chief Complaint/Hosp Course Assessment/Plan - S/p severe sepsis due to pneumonia/bronchitis, Dr. Fraga group is following infection disease consultation. -Enterobacter pneumonia, continue antibiotics per ID. - Advanced non-small cell lung CA, on biweekly chemotherapy infusion x2 years, Dr. Scanlon is following in oncology consultation. - Acute respiratory failure, resolving. Dr. Castanon is following in pulmonology consultation. - Pancytopenia due to chemotherapy -Right upper extremities deep venous thrombosis, continue Lovenox. -Acute on chronic diastolic congestive heart failure, continue gentle diuresis, continue to monitor electrolytes. -Cardiac arrhythmia, Dr. Gaytan is following in cardiology consultation. - h/o fungal pneumonia, on maintenance voriconazole - h/o post-obstructive pneumonia - h/o HTN, CAD, hyperlipidemia - h/o paroxysmal A fib - h/o DVT in LUE - h/o hypothyroidism Further recommendations based on clinical course. Plan of care discussed with Dr. Lincoln. Problems: Subjective 24 Hr Interval Summary Free Text/Dictation Patient's continues to complain of productive cough, remains afebrile. Exam/Review of Systems Vital Signs Vitals Vital Signs Date Time Temp Pulse Resp B/P Pulse Ox O2 Delivery O2 Flow Rate FiO2 09/26/16 08:36 99 18 94 Nasal Cannula 2.0 09/26/16 07:42 98.6 121/71 Intake and Output 09/25/16 09/25/16 09/26/16 15:00 23:00 07:00 Intake Total 50 ml 2180 ml 500 ml Balance 50 ml 2180 ml 500 ml Exam Constitutional: alert, oriented Psych: nl mood/affect, no complaints Head: atraumatic, normocephalic Eyes: nl conjunctiva ENMT: nl external ears & nose Neck: non-tender, supple Respiratory: diminished breath sounds, wheezing Cardiovascular: nl pulses, regular rate and rhythm Gastrointestinal: non-tender, soft Musculoskeletal: nl extremities to inspection Extremities: normal pulses Neurological: JALOUSIES INSTALLER II-XII intact Results Result Diagram: 5/2/17 0515 5/2/17 0515 Results 24 hrs Laboratory Tests Test 09/26/16 05:15 White Blood Count 3.6 L Red Blood Count 2.88 L Hemoglobin 9.2 L Hematocrit 28.8 L Mean Corpuscular Volume 100.0 Mean Corpuscular Hemoglobin 31.9 Mean Corpuscular Hemoglobin Concent 31.9 L Red Cell Distribution Width 15.9 H Platelet Count 175 Mean Platelet Volume 10.5 H Neutrophils % 65.5 Lymphocytes % 15.2 Monocytes % 14.6 H Eosinophils % 3.0 Basophils % 0.6 Nucleated Red Blood Cells % 0.0 Neutrophils # 2.4 Lymphocytes # 0.6 L Monocytes # 0.5 Eosinophils # 0.1 Basophils # 0.0 Nucleated Red Blood Cells # 0.0 Sodium Level 136 Potassium Level 4.0 Chloride Level 99 Carbon Dioxide Level 32 H Anion Gap 9 # Blood Urea Nitrogen 18 Creatinine 0.93 Glucose Level 96 Calcium Level 8.8 Medications Medications Current Medications IV Flush (NS 10 ml) 10 ml PRN PRN IV IV PROTOCOL Last administered on 11:28; Admin Dose 10 ML; Start 08/31/16 at 18:30 Metoprolol Tartrate (Lopressor) 5 mg Q4H PRN IV ELEVATED HEART RATE Last administered on 09/02/16 17:09; Admin Dose 5 MG; Start 09/02/16 at 17:30; Status Future Hold Morphine Sulfate (morphine) 4 mg Q3 PRN IV PAIN Last administered on 09/26/16 13:01; Admin Dose 4 MG; Start 09/05/16 at 17:00 Docusate Sodium (Colace) 100 mg TID PO Last administered on 09/26/16 13:01; Admin Dose 100 MG; Start 09/06/16 at 21:00 Bisacodyl (Dulcolax) 5 mg DAILY PRN PO CONSTIPATION Last administered on 11:43; Admin Dose 5 MG; Start 09/06/16 at 16:00 Pantoprazole (Protonix Tab) 40 mg DAILY@06 PO Last administered on 09/26/16 06: 17; Admin Dose 40 MG; Start 09/07/16 at 06:00 Atorvastatin Calcium (Lipitor) 20 mg QHS PO Last administered on 09/25/16 21:24 ; Admin Dose 20 MG; Start 09/08/16 at 21:00 Docusate Sodium (Colace) 100 mg BID PRN PO CONSTIPATION; Start 09/08/16 at 13: 00 Escitalopram Oxalate (Lexapro) 10 mg DAILY PO Last administered on 09/26/16 09: 03; Admin Dose 10 MG; Start 09/09/16 at 09:00 Senna (Senokot) 1 tab Q12H PRN PO CONSTIPATION Last administered on 09/19/16 11:43; Admin Dose 1 TAB; Start 09/08/16 at 13:00 Trazodone HCl (Desyrel) 50 mg QHS PO Last administered on 09/26/16 00:18; Admin Dose 50 MG; Start 09/08/16 at 21:00 Voriconazole (Vfend) 100 mg BID PO Last administered on 09/26/16 09:02; Admin Dose 100 MG; Start 09/11/16 at 09:00 Aspirin (Halfprin) 81 mg DAILY PO Last administered on 09/26/16 09:02; Admin Dose 81 MG; Start 09/14/16 at 09:00 Furosemide 20 mg 20 mg DAILY IV Last administered on 09/26/16 09:04; Admin Dose 20 MG; Start 09/21/16 at 14:30 Cefepime HCl (Maxipime 2gm/50 ml (Pmx)) 50 ml @ 100 mls/hr Q12 IVPB Last administered on 09/26/16 09:03; Admin Dose 100 MLS/HR; Start 09/22/16 at 11:00 Promethazine HCl/ Codeine (Phenergan/ Codeine) 10 ml Q6H PRN PO COUGH Last administered on 09/26/16 09:10; Admin Dose 10 ML; Start 09/24/16 at 07:00 Enoxaparin Sodium (Lovenox) 40 mg BID SC Last administered on 09/26/16 09:08; Admin Dose 40 MG; Start 09/24/16 at 21:00 Morphine Sulfate (Ms Contin (Er)) 45 mg BID PO Last administered on 09/26/16 09 :02; Admin Dose 45 MG; Start 09/25/16 at 21:30 LUBA EARLY September 26, 2016 13:20
--- NOTE | 2016-09-26 13:43 | CONS ---
Date/Time of Note Date/Time of Note DATE: 09/26/16 TIME: 13:40 Assessment/Plan Assessment/Plan Additional Assessment/Plan 1. Cardiac arrhythmia, with currently rhythm most consistent with sinus tachycardia, but also having pauses. Negative troponin x 3/TSH elevated-no recurrence/reasonable HR control - in sinus now 2. Abnormal electrocardiogram. trop negative x3/NL EF by echo this admit 3. Hypertension, labile - better now 4. Dyslipidemia. 5. Pneumonia and bronchitis- on anti-bx, con't med rx 6. Lung cancer - Rx with anti-bx 7. Hypothyroidism. 8. Anemia. 9. Thrombocytopenia-now improved - no bleeding now. 10. Prior hemoptysis. 11.BNP-elevated 12.PNA - on anti-bx 13. R UE DVT-now on low dose lovenox Consultation Date/Type/Reason Admit Date/Time Sep 01, 2016 at 14:47 Initial Consult Date 09/01/16 Type of Consultation: ID Referring Provider: MARYAM FARMER MD 24 HR Interval Summary Free Text/Dictation No acute change - still with SOB - will monitor clinically. ROS: No fever, no chills, no nausea, no vomiting, no diarrhea/constipation No recent weight changes No chest pain, no PND, no orthopnea No dizziness, blurred vision No thirst, no heat or cold intolerance + SOB, + productive sputum Exam/Review of Systems Vital Signs Vitals Vital Signs Date Time Temp Pulse Resp B/P Pulse Ox O2 Delivery O2 Flow Rate FiO2 09/26/16 08:36 99 18 94 Nasal Cannula 2.0 09/26/16 07:42 98.6 121/71 Intake and Output 09/25/16 09/25/16 09/26/16 15:00 23:00 07:00 Intake Total 50 ml 2180 ml 500 ml Balance 50 ml 2180 ml 500 ml Exam General: WN/WD/NAD, AOx 3 HEENT: Unicetric/atraumatic/EOMI ( follow commands) NECK: JVD elevated, no thyromegaly Lymph: no lymphadenopathy HEART: regular with no S3, II/ systolic murmur at apex LUNGS: Coarse sounds + ABD: soft, NT, ND, +BS : Intact Neuro: non focal SKIN: chronic changes EXT: trace edema Results Result Diagram: 5/2/17 0515 5/2/17 0515 Results 24 hrs Laboratory Tests Test 09/26/16 05:15 White Blood Count 3.6 L Red Blood Count 2.88 L Hemoglobin 9.2 L Hematocrit 28.8 L Mean Corpuscular Volume 100.0 Mean Corpuscular Hemoglobin 31.9 Mean Corpuscular Hemoglobin Concent 31.9 L Red Cell Distribution Width 15.9 H Platelet Count 175 Mean Platelet Volume 10.5 H Neutrophils % 65.5 Lymphocytes % 15.2 Monocytes % 14.6 H Eosinophils % 3.0 Basophils % 0.6 Nucleated Red Blood Cells % 0.0 Neutrophils # 2.4 Lymphocytes # 0.6 L Monocytes # 0.5 Eosinophils # 0.1 Basophils # 0.0 Nucleated Red Blood Cells # 0.0 Sodium Level 136 Potassium Level 4.0 Chloride Level 99 Carbon Dioxide Level 32 H Anion Gap 9 # Blood Urea Nitrogen 18 Creatinine 0.93 Glucose Level 96 Calcium Level 8.8 Medications Medications Current Medications IV Flush (NS 10 ml) 10 ml PRN PRN IV IV PROTOCOL Last administered on 11:28; Admin Dose 10 ML; Start 08/31/16 at 18:30 Metoprolol Tartrate (Lopressor) 5 mg Q4H PRN IV ELEVATED HEART RATE Last administered on 09/02/16 17:09; Admin Dose 5 MG; Start 09/02/16 at 17:30; Status Future Hold Morphine Sulfate (morphine) 4 mg Q3 PRN IV PAIN Last administered on 09/26/16 13:01; Admin Dose 4 MG; Start 09/05/16 at 17:00 Docusate Sodium (Colace) 100 mg TID PO Last administered on 09/26/16 13:01; Admin Dose 100 MG; Start 09/06/16 at 21:00 Bisacodyl (Dulcolax) 5 mg DAILY PRN PO CONSTIPATION Last administered on 11:43; Admin Dose 5 MG; Start 09/06/16 at 16:00 Pantoprazole (Protonix Tab) 40 mg DAILY@06 PO Last administered on 09/26/16 06: 17; Admin Dose 40 MG; Start 09/07/16 at 06:00 Atorvastatin Calcium (Lipitor) 20 mg QHS PO Last administered on 09/25/16 21:24 ; Admin Dose 20 MG; Start 09/08/16 at 21:00 Docusate Sodium (Colace) 100 mg BID PRN PO CONSTIPATION; Start 09/08/16 at 13: 00 Escitalopram Oxalate (Lexapro) 10 mg DAILY PO Last administered on 09/26/16 09: 03; Admin Dose 10 MG; Start 09/09/16 at 09:00 Senna (Senokot) 1 tab Q12H PRN PO CONSTIPATION Last administered on 09/19/16 11:43; Admin Dose 1 TAB; Start 09/08/16 at 13:00 Trazodone HCl (Desyrel) 50 mg QHS PO Last administered on 09/26/16 00:18; Admin Dose 50 MG; Start 09/08/16 at 21:00 Voriconazole (Vfend) 100 mg BID PO Last administered on 09/26/16 09:02; Admin Dose 100 MG; Start 09/11/16 at 09:00 Aspirin (Halfprin) 81 mg DAILY PO Last administered on 09/26/16 09:02; Admin Dose 81 MG; Start 09/14/16 at 09:00 Furosemide 20 mg 20 mg DAILY IV Last administered on 09/26/16 09:04; Admin Dose 20 MG; Start 09/21/16 at 14:30 Cefepime HCl (Maxipime 2gm/50 ml (Pmx)) 50 ml @ 100 mls/hr Q12 IVPB Last administered on 09/26/16 09:03; Admin Dose 100 MLS/HR; Start 09/22/16 at 11:00 Promethazine HCl/ Codeine (Phenergan/ Codeine) 10 ml Q6H PRN PO COUGH Last administered on 09/26/16 09:10; Admin Dose 10 ML; Start 09/24/16 at 07:00 Enoxaparin Sodium (Lovenox) 40 mg BID SC Last administered on 09/26/16 09:08; Admin Dose 40 MG; Start 09/24/16 at 21:00 Morphine Sulfate (Ms Contin (Er)) 45 mg BID PO Last administered on 09/26/16 09 :02; Admin Dose 45 MG; Start 09/25/16 at 21:30 FRANCIS ESPINAL MD September 26, 2016 13:43
--- NOTE | 2016-09-26 14:55 | RADRPT ---
PROCEDURE: Left knee series. CLINICAL INDICATION: Left knee pain TECHNIQUE: 2 views of the left knee. COMPARISON: None available FINDINGS: There is normal mineralization of the bones of the left knee. No acute fracture or dislocation is s een. There is tricompartmental joint space narrowing and tricompartmental osteophyte formation. No definite joint effusion is seen. Peripheral atherosclerotic calcifications are present. There is a mild varus alignment deformity. IMPRESSION: 1. Tricompartmental degenerative change of the left knee with associated mild varus alignment defor mity. 2. Peripheral atherosclerotic vascular disease. RPTAT: KK .Yan Fields MD, MD Date Time Electronically viewed and signed by .Yan Fields MD, MD on 09/26/2016 14:55 .B/
--- NOTE | 2016-09-26 14:56 | RADRPT ---
PROCEDURE: Right knee series. CLINICAL INDICATION: Right knee pain TECHNIQUE: 2 views of the right knee are available for review. COMPARISON: None available FINDINGS: There is normal mineralization and alignment of the bones of the right knee. No acute fracture or d islocation is identified. There is mild degenerative change of the medial and lateral compartments of the right knee.. Overlying soft tissues are unremarkable. IMPRESSION: 1. Mild degenerative changes of the right knee. RPTAT: KK .Yan Fields MD, MD Date Time Electronically viewed and signed by .Yan Fields MD, on 09/26/2016 14:56 .B/
[2016-09-26 20:01] VITALS: BP 126/63; RESP 18
[2016-09-26] MEDS: ATORVASTATIN 20 MG TAB PO SCH (20:45)
[2016-09-27] MEDS: morphine 4 MG/ML VIAL IV PRN ×8 (00:59→22:04)
[2016-09-27] MEDS: ALBUTEROL/IPRATROPIUM (NEB) 3 ML AMP HHN SCH ×4 (01:18→19:27)
[2016-09-27] MEDS: PROMETHAZINE/CODEINE 5ML CUP PO PRN ×2 (01:37→12:49)
[2016-09-27 06:12] LABS: ADD SCAN DIFF NO
[2016-09-27] MEDS: PANTOPRAZOLE (EC) 40 MG TAB PO SCH (06:15)
[2016-09-27] MEDS: LEVOTHYROXINE 50 MCG TAB PO SCH (06:15)
[2016-09-27 06:21] LABS: EOSINOPHILS # 0.1 10^3/ul (0.0-0.5); EOSINOPHILS % 2.7 % (0.0-7.0); HEMATOCRIT 28.2 % (42.0-52.0); HEMOGLOBIN 8.8 g/dl (14.0-18.0); LYMPHOCYTES # 0.7 10^3/ul (0.8-2.9); LYMPHOCYTES % 22.7 % (15.0-51.0); MEAN CORPUSCULAR HEMOGLOBIN 31.4 pg (29.0-33.0); MEAN CORPUSCULAR HGB CONC 31.2 g/dl (32.0-37.0); MEAN CORPUSCULAR VOLUME 100.7 fl (82.0-101.0); MEAN PLATELET VOLUME 10.7 fl (7.4-10.4); MONOCYTE # 0.5 10^3/ul (0.3-0.9); NEUTROPHIL # 1.7 10^3/ul (1.6-7.5); NEUTROPHILS % 55.9 % (39.0-77.0); PLATELET COUNT 161 10^3/UL (140-415); RED CELL DISTRIBUTION WIDTH 15.9 % (11.5-14.5)
[2016-09-27 07:36] VITALS: BP 121/68; RESP 16
[2016-09-27 07:55] LABS: CALCIUM 8.9 mg/dl (8.4-10.2); CREATININE 0.94 mg/dl (0.61-1.24)
[2016-09-27] MEDS: FUROSEMIDE 20 MG INJ IV SCH (08:24)
[2016-09-27] MEDS: CEFEPIME 2GM/50 ML (PMX) 50 ML IVPB SCH (08:24)
[2016-09-27] MEDS: morphine (ER) 15 MG TAB PO SCH ×2 (08:25→20:08)
[2016-09-27] MEDS: DOCUSATE SODIUM 100 MG CAP PO SCH ×3 (08:25→20:08)
[2016-09-27] MEDS: ASPIRIN (EC) 81 MG TAB PO SCH (08:25)
[2016-09-27] MEDS: VORICONAZOLE 200 MG TAB PO SCH ×2 (08:26→20:08)
[2016-09-27] MEDS: ESCITALOPRAM 10 MG TAB PO SCH (08:26)
[2016-09-27] MEDS: ENOXAPARIN 40 MG/0.4 ML SYG SC SCH (09:23)
--- NOTE | 2016-09-27 09:32 | CONS ---
Date/Time of Note Date/Time of Note DATE: 09/27/16 TIME: 09:30 Assessment/Plan Assessment/Plan Chief Complaint/Hosp Course metastatic lung CANCER, NSCLC - ON CHEMO PANCYTOPENIA POST CHEMO MONITOR CLOSELY LEUKOPENIA- POST CHEMO POST NEUPOGEN POST Hypoxemic respiratory failure, possibly secondary to a reaction to chemotherapy. severe pneumonia/bronchitis due to enterobacter (09/22/2016-) DVT LOVENOX- INCREASE TO THER DOSE History of coronary artery disease. chronic obstructive pulmonary disease Problems: Consultation Date/Type/Reason Admit Date/Time Sep 01, 2016 at 14:47 Initial Consult Date 09/01/16 Type of Consultation: HEMEON Referring Provider: MARYAM FARMER MD 24 HR Interval Summary Free Text/Dictation ALL NOTED D/W STAFF AND PT Exam/Review of Systems Vital Signs Vitals Vital Signs Date Time Temp Pulse Resp B/P Pulse Ox O2 Delivery O2 Flow Rate FiO2 09/27/16 07:36 98.4 93 16 121/68 98 09/27/16 07:28 2.0 09/27/16 07:28 Nasal Cannula Intake and Output 09/26/16 09/26/16 09/27/16 15:00 23:00 07:00 Intake Total 50 ml 1250 ml 360 ml Output Total 0 ml Balance 50 ml 1250 ml 360 ml Exam Constitutional: alert, oriented Psych: nl mood/affect, no complaints Head: atraumatic, normocephalic Eyes: nl conjunctiva ENMT: nl external ears & nose Neck: non-tender, supple Respiratory: diminished breath sounds, wheezing Cardiovascular: nl pulses, regular rate and rhythm Gastrointestinal: non-tender, soft Musculoskeletal: nl extremities to inspection Extremities: normal pulses Neurological: ACID CLEANER II-XII intact Results Result Diagram: 09/27/16 0545 09/27/16 0545 Results 24 hrs Laboratory Tests Test 09/27/16 05:45 White Blood Count 3.0 L Red Blood Count 2.80 L Hemoglobin 8.8 L Hematocrit 28.2 L Mean Corpuscular Volume 100.7 Mean Corpuscular Hemoglobin 31.4 Mean Corpuscular Hemoglobin Concent 31.2 L Red Cell Distribution Width 15.9 H Platelet Count 161 Mean Platelet Volume 10.7 H Neutrophils % 55.9 Lymphocytes % 22.7 Monocytes % 17.0 H Eosinophils % 2.7 Basophils % 1.0 Nucleated Red Blood Cells % 0.0 Neutrophils # 1.7 Lymphocytes # 0.7 L Monocytes # 0.5 Eosinophils # 0.1 Basophils # 0.0 Nucleated Red Blood Cells # 0.0 Sodium Level 137 Potassium Level 4.0 Chloride Level 99 Carbon Dioxide Level 31 Anion Gap 11 Blood Urea Nitrogen 17 Creatinine 0.94 Glucose Level 92 Calcium Level 8.9 Medications Medications Current Medications IV Flush (NS 10 ml) 10 ml PRN PRN IV IV PROTOCOL Last administered on 11:28; Admin Dose 10 ML; Start 08/31/16 at 18:30 Metoprolol Tartrate (Lopressor) 5 mg Q4H PRN IV ELEVATED HEART RATE Last administered on 09/02/16 17:09; Admin Dose 5 MG; Start 09/02/16 at 17:30; Status Future Hold Morphine Sulfate (morphine) 4 mg Q3 PRN IV PAIN Last administered on 09/27/16 06:59; Admin Dose 4 MG; Start 09/05/16 at 17:00 Docusate Sodium (Colace) 100 mg TID PO Last administered on 09/27/16 08:25; Admin Dose 100 MG; Start 09/06/16 at 21:00 Bisacodyl (Dulcolax) 5 mg DAILY PRN PO CONSTIPATION Last administered on 11:43; Admin Dose 5 MG; Start 09/06/16 at 16:00 Pantoprazole (Protonix Tab) 40 mg DAILY@06 PO Last administered on 09/27/16 06: 15; Admin Dose 40 MG; Start 09/07/16 at 06:00 Atorvastatin Calcium (Lipitor) 20 mg QHS PO Last administered on 09/26/16 20:45 ; Admin Dose 20 MG; Start 09/08/16 at 21:00 Docusate Sodium (Colace) 100 mg BID PRN PO CONSTIPATION; Start 09/08/16 at 13: 00 Escitalopram Oxalate (Lexapro) 10 mg DAILY PO Last administered on 09/27/16 08: 26; Admin Dose 10 MG; Start 09/09/16 at 09:00 Senna (Senokot) 1 tab Q12H PRN PO CONSTIPATION Last administered on 09/19/16 11:43; Admin Dose 1 TAB; Start 09/08/16 at 13:00 Trazodone HCl (Desyrel) 50 mg QHS PO Last administered on 09/26/16 20:45; Admin Dose 50 MG; Start 09/08/16 at 21:00 Voriconazole (Vfend) 100 mg BID PO Last administered on 09/27/16 08:26; Admin Dose 100 MG; Start 09/11/16 at 09:00 Aspirin (Halfprin) 81 mg DAILY PO Last administered on 09/27/16 08:25; Admin Dose 81 MG; Start 09/14/16 at 09:00 Furosemide 20 mg 20 mg DAILY IV Last administered on 09/27/16 08:24; Admin Dose 20 MG; Start 09/21/16 at 14:30 Cefepime HCl (Maxipime 2gm/50 ml (Pmx)) 50 ml @ 100 mls/hr Q12 IVPB Last administered on 09/27/16 08:24; Admin Dose 100 MLS/HR; Start 09/22/16 at 11:00 Promethazine HCl/ Codeine (Phenergan/ Codeine) 10 ml Q6H PRN PO COUGH Last administered on 09/27/16 01:37; Admin Dose 10 ML; Start 09/24/16 at 07:00 Enoxaparin Sodium (Lovenox) 40 mg BID SC Last administered on 09/27/16 09:23; Admin Dose 40 MG; Start 09/24/16 at 21:00 Morphine Sulfate (Ms Contin (Er)) 45 mg BID PO Last administered on 09/27/16 08 :25; Admin Dose 45 MG; Start 09/25/16 at 21:30 DAHIANA BABCOCK MD September 27, 2016 09:32
--- NOTE | 2016-09-27 15:46 | PN ---
Date/Time of Note Date/Time of Note DATE: 09/27/16 TIME: 15:43 Assessment/Plan VTE Prophylaxis VTE Prophylaxis Intervention: LMWH Lines/Catheters IV [facility] Type (from [facility]): PICC Line Central line still needed: Yes Assessment/Plan Chief Complaint/Hosp Course Assessment/Plan - S/p severe sepsis due to pneumonia/bronchitis, Dr. Fraga group is following infection disease consultation. -Enterobacter pneumonia, continue antibiotics per ID. - Advanced non-small cell lung CA, on biweekly chemotherapy infusion x2 years, Dr. Scanlon is following in oncology consultation. - Acute respiratory failure, resolving. Dr. Castanon is following in pulmonology consultation. - Pancytopenia due to chemotherapy -Right upper extremities deep venous thrombosis, continue Lovenox. -Acute on chronic diastolic congestive heart failure, continue gentle diuresis, continue to monitor electrolytes. -Cardiac arrhythmia, Dr. Gaytan is following in cardiology consultation. - h/o fungal pneumonia, on maintenance voriconazole - h/o post-obstructive pneumonia - h/o HTN, CAD, hyperlipidemia - h/o paroxysmal A fib - h/o DVT in LUE - h/o hypothyroidism D/c home upon arrangement of CM for abx and Loovenox SQ by home health Further recommendations based on clinical course. Plan of care discussed with Dr. Lincoln. Problems: Subjective 24 Hr Interval Summary Free Text/Dictation Continues on supplemental oxygen, remains afebrile. Exam/Review of Systems Vital Signs Vitals Vital Signs Date Time Temp Pulse Resp B/P Pulse Ox O2 Delivery O2 Flow Rate FiO2 09/27/16 14:00 94 20 96 Nasal Cannula 2.0 09/27/16 07:36 98.4 121/68 Intake and Output 09/26/16 09/26/16 09/27/16 15:00 23:00 07:00 Intake Total 50 ml 1250 ml 360 ml Output Total 0 ml Balance 50 ml 1250 ml 360 ml Exam Constitutional: alert, oriented Psych: nl mood/affect, no complaints Head: atraumatic, normocephalic Eyes: nl conjunctiva ENMT: nl external ears & nose Neck: non-tender, supple Respiratory: diminished breath sounds, wheezing Cardiovascular: nl pulses, regular rate and rhythm Gastrointestinal: non-tender, soft Musculoskeletal: nl extremities to inspection Extremities: normal pulses Neurological: ASSURANCE ANALYST II-XII intact Results Result Diagram: 5/3/17 0545 09/27/16 0545 Results 24 hrs Laboratory Tests Test 09/27/16 05:45 White Blood Count 3.0 L Red Blood Count 2.80 L Hemoglobin 8.8 L Hematocrit 28.2 L Mean Corpuscular Volume 100.7 Mean Corpuscular Hemoglobin 31.4 Mean Corpuscular Hemoglobin Concent 31.2 L Red Cell Distribution Width 15.9 H Platelet Count 161 Mean Platelet Volume 10.7 H Neutrophils % 55.9 Lymphocytes % 22.7 Monocytes % 17.0 H Eosinophils % 2.7 Basophils % 1.0 Nucleated Red Blood Cells % 0.0 Neutrophils # 1.7 Lymphocytes # 0.7 L Monocytes # 0.5 Eosinophils # 0.1 Basophils # 0.0 Nucleated Red Blood Cells # 0.0 Sodium Level 137 Potassium Level 4.0 Chloride Level 99 Carbon Dioxide Level 31 Anion Gap 11 Blood Urea Nitrogen 17 Creatinine 0.94 Glucose Level 92 Calcium Level 8.9 Medications Medications Current Medications IV Flush (NS 10 ml) 10 ml PRN PRN IV IV PROTOCOL Last administered on 11:28; Admin Dose 10 ML; Start 08/31/16 at 18:30 Metoprolol Tartrate (Lopressor) 5 mg Q4H PRN IV ELEVATED HEART RATE Last administered on 09/02/16 17:09; Admin Dose 5 MG; Start 09/02/16 at 17:30; Status Future Hold Morphine Sulfate (morphine) 4 mg Q3 PRN IV PAIN Last administered on 09/27/16 12:49; Admin Dose 4 MG; Start 09/05/16 at 17:00 Docusate Sodium (Colace) 100 mg TID PO Last administered on 09/27/16 12:49; Admin Dose 100 MG; Start 09/06/16 at 21:00 Bisacodyl (Dulcolax) 5 mg DAILY PRN PO CONSTIPATION Last administered on 11:43; Admin Dose 5 MG; Start 09/06/16 at 16:00 Pantoprazole (Protonix Tab) 40 mg DAILY@06 PO Last administered on 09/27/16 06: 15; Admin Dose 40 MG; Start 09/07/16 at 06:00 Atorvastatin Calcium (Lipitor) 20 mg QHS PO Last administered on 09/26/16 20:45 ; Admin Dose 20 MG; Start 09/08/16 at 21:00 Docusate Sodium (Colace) 100 mg BID PRN PO CONSTIPATION; Start 09/08/16 at 13: 00 Escitalopram Oxalate (Lexapro) 10 mg DAILY PO Last administered on 09/27/16 08: 26; Admin Dose 10 MG; Start 09/09/16 at 09:00 Senna (Senokot) 1 tab Q12H PRN PO CONSTIPATION Last administered on 09/19/16 11:43; Admin Dose 1 TAB; Start 09/08/16 at 13:00 Trazodone HCl (Desyrel) 50 mg QHS PO Last administered on 09/26/16 20:45; Admin Dose 50 MG; Start 09/08/16 at 21:00 Voriconazole (Vfend) 100 mg BID PO Last administered on 09/27/16 08:26; Admin Dose 100 MG; Start 09/11/16 at 09:00 Aspirin (Halfprin) 81 mg DAILY PO Last administered on 09/27/16 08:25; Admin Dose 81 MG; Start 09/14/16 at 09:00 Furosemide 20 mg 20 mg DAILY IV Last administered on 09/27/16 08:24; Admin Dose 20 MG; Start 09/21/16 at 14:30 Cefepime HCl (Maxipime 2gm/50 ml (Pmx)) 50 ml @ 100 mls/hr Q12 IVPB Last administered on 09/27/16 08:24; Admin Dose 100 MLS/HR; Start 09/22/16 at 11:00 Promethazine HCl/ Codeine (Phenergan/ Codeine) 10 ml Q6H PRN PO COUGH Last administered on 09/27/16 12:49; Admin Dose 10 ML; Start 09/24/16 at 07:00 Morphine Sulfate (Ms Contin (Er)) 45 mg BID PO Last administered on 09/27/16 08 :25; Admin Dose 45 MG; Start 09/25/16 at 21:30 Enoxaparin Sodium (Lovenox) 60 mg BID SC ; Start 09/27/16 at 21:00 LUBA EARLY September 27, 2016 15:46
[2016-09-27] MEDS ORDERED: ENOXAPARIN 100 MG/ML SYG SC SCH ×2 (16:30→17:00)
[2016-09-27] MEDS ORDERED: ENOXAPARIN 30 MG/0.3 ML SYG SC SCH (17:00)
--- NOTE | 2016-09-27 17:26 | CONS ---
Date/Time of Note Date/Time of Note DATE: 09/27/16 TIME: 17:23 Assessment/Plan Assessment/Plan Chief Complaint/Hosp Course IMPRESSION: 1. Cardiac arrhythmia, with currently rhythm most consistent with sinus tachycardia, but also having pauses. Negative troponin x 3/TSH elevated-no recurrence/reasonable HR control 2. Abnormal electrocardiogram. trop negative x3/NL EF by echo this admit 3. Hypertension, labile. 4. Dyslipidemia. 5. Pneumonia and bronchitis. 6. Lung cancer. 7. Hypothyroidism. 8. Anemia. 9. Thrombocytopenia-now improved 10. Prior hemoptysis. 11.BNP-elevated 12.PNA 13. R UE DVT-now on low dose lovenox Recc: -Now med-surg -Continue statin/asa -Contine voriconazole -Follow volume status closely on standing low dose lasix diuresis and follow creatnine closely -Onc/ID following -f/u sputum cx data and tailor abx as necessary -Contiue lovenox anticoagulation and follow carefully for bleeding complications given such high dose Problems: Consultation Date/Type/Reason Admit Date/Time Sep 01, 2016 at 14:47 Initial Consult Date 09/01/16 Type of Consultation: Cardiology Reason for Consultation CHF Referring Provider: MARYAM FARMER MD Exam/Review of Systems Vital Signs Vitals Vital Signs Date Time Temp Pulse Resp B/P Pulse Ox O2 Delivery O2 Flow Rate FiO2 09/27/16 14:00 94 20 96 Nasal Cannula 2.0 09/27/16 07:36 98.4 121/68 Intake and Output 09/26/16 09/26/16 09/27/16 15:00 23:00 07:00 Intake Total 50 ml 1250 ml 360 ml Output Total 0 ml Balance 50 ml 1250 ml 360 ml Exam Review of Systems: CONSTITUTIONAL: No fevers, chills. PULMONARY: No sob CARDIOVASCULAR: No chest pain/palpitations GASTROINTESTINAL: No nausea/vomiting. GENITOURINARY: No hematuria/dysuria. MUSCULOSKELETAL: No myagias/arthalgias. PSYCHIATRIC: The patient denies depression. NEUROLOGIC: No weakness Constitutional: alert Psych: no complaints Head: normocephalic ENMT: mucosa pink and moist Neck: jvd (9 cm water), supple Respiratory: other (Diffuse rhoncherous sounds), wheezing Cardiovascular: regular rate and rhythm Gastrointestinal: non-tender, soft Musculoskeletal: muscle tone (normal) Extremities: edema (none) Neurological: other (NO focal deficits) Results Result Diagram: 09/27/1645 09/27/16 0545 Results 24 hrs Laboratory Tests Test 09/27/16 05:45 White Blood Count 3.0 L Red Blood Count 2.80 L Hemoglobin 8.8 L Hematocrit 28.2 L Mean Corpuscular Volume 100.7 Mean Corpuscular Hemoglobin 31.4 Mean Corpuscular Hemoglobin Concent 31.2 L Red Cell Distribution Width 15.9 H Platelet Count 161 Mean Platelet Volume 10.7 H Neutrophils % 55.9 Lymphocytes % 22.7 Monocytes % 17.0 H Eosinophils % 2.7 Basophils % 1.0 Nucleated Red Blood Cells % 0.0 Neutrophils # 1.7 Lymphocytes # 0.7 L Monocytes # 0.5 Eosinophils # 0.1 Basophils # 0.0 Nucleated Red Blood Cells # 0.0 Sodium Level 137 Potassium Level 4.0 Chloride Level 99 Carbon Dioxide Level 31 Anion Gap 11 Blood Urea Nitrogen 17 Creatinine 0.94 Glucose Level 92 Calcium Level 8.9 Medications Medications Current Medications IV Flush (NS 10 ml) 10 ml PRN PRN IV IV PROTOCOL Last administered on 11:28; Admin Dose 10 ML; Start 08/31/16 at 18:30 Metoprolol Tartrate (Lopressor) 5 mg Q4H PRN IV ELEVATED HEART RATE Last administered on 09/02/16 17:09; Admin Dose 5 MG; Start 09/02/16 at 17:30; Status Future Hold Morphine Sulfate (morphine) 4 mg Q3 PRN IV PAIN Last administered on 09/27/16 16:04; Admin Dose 4 MG; Start 09/05/16 at 17:00 Docusate Sodium (Colace) 100 mg TID PO Last administered on 09/27/16 12:49; Admin Dose 100 MG; Start 09/06/16 at 21:00 Bisacodyl (Dulcolax) 5 mg DAILY PRN PO CONSTIPATION Last administered on 11:43; Admin Dose 5 MG; Start 09/06/16 at 16:00 Pantoprazole (Protonix Tab) 40 mg DAILY@06 PO Last administered on 09/27/16 06: 15; Admin Dose 40 MG; Start 09/07/16 at 06:00 Atorvastatin Calcium (Lipitor) 20 mg QHS PO Last administered on 09/26/16 20:45 ; Admin Dose 20 MG; Start 09/08/16 at 21:00 Docusate Sodium (Colace) 100 mg BID PRN PO CONSTIPATION; Start 09/08/16 at 13: 00 Escitalopram Oxalate (Lexapro) 10 mg DAILY PO Last administered on 09/27/16 08: 26; Admin Dose 10 MG; Start 09/09/16 at 09:00 Senna (Senokot) 1 tab Q12H PRN PO CONSTIPATION Last administered on 09/19/16 11:43; Admin Dose 1 TAB; Start 09/08/16 at 13:00 Trazodone HCl (Desyrel) 50 mg QHS PO Last administered on 09/26/16 20:45; Admin Dose 50 MG; Start 09/08/16 at 21:00 Voriconazole (Vfend) 100 mg BID PO Last administered on 09/27/16 08:26; Admin Dose 100 MG; Start 09/11/16 at 09:00 Aspirin (Halfprin) 81 mg DAILY PO Last administered on 09/27/16 08:25; Admin Dose 81 MG; Start 09/14/16 at 09:00 Furosemide 20 mg 20 mg DAILY IV Last administered on 09/27/16 08:24; Admin Dose 20 MG; Start 09/21/16 at 14:30 Cefepime HCl (Maxipime 2gm/50 ml (Pmx)) 50 ml @ 100 mls/hr Q12 IVPB Last administered on 09/27/16 08:24; Admin Dose 100 MLS/HR; Start 09/22/16 at 11:00 Promethazine HCl/ Codeine (Phenergan/ Codeine) 10 ml Q6H PRN PO COUGH Last administered on 09/27/16 12:49; Admin Dose 10 ML; Start 09/24/16 at 07:00 Morphine Sulfate (Ms Contin (Er)) 45 mg BID PO Last administered on 09/27/16 08 :25; Admin Dose 45 MG; Start 09/25/16 at 21:30 Enoxaparin Sodium (Lovenox) 190 mg Q24H SC ; Start 09/28/16 at 17:00 Enoxaparin Sodium (Lovenox) 100 mg ONCE SC Last administered on 09/27/16 17:01 ; Admin Dose 100 MG; Start 09/27/16 at 17:00; Stop 09/27/16 at 23:00 Enoxaparin Sodium (Lovenox) 30 mg ONCE SC Last administered on 09/27/16 17:02; Admin Dose 30 MG; Start 09/27/16 at 17:00; Stop 09/27/16 at 23:00 MARIAA ÁLVAREZ September 27, 2016 17:26
--- NOTE | 2016-09-27 18:48 | CONS ---
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 Diamond in [place]. aspergillus antibody was > 1:64 but aspergillus antigen in serum by EIA was negative during this admission. - DVT of RUE - b/l knee pain - h/o post-obstructive pneumonia - h/o HTN, CAD, hyperlipidemia - h/o paroxysmal A fib - h/o DVT in LUE - hypothyroidism with elevated TSH level - hypomagnesemia - HIV negative in 2013 - neutropenia recommendations: - I recommend changing cefepime (09/22/2016-) to levofloxacin for pneumonia due to enterobacter, plan for two weeks through 10/06/2016 - continue PO voriconazole at the current dose per instruction by Dr. Diamond, his ID specialist. Per Pt, he is supposed to take it for 6 months since the beginning of 04/2016 management d/w Pt, his Problems: Consultation Date/Type/Reason Admit Date/Time Sep 01, 2016 at 14:47 Initial Consult Date 09/01/16 Type of Consultation: ID Referring Provider: MARYAM FARMER MD 24 HR Interval Summary Constitutional: requiring O2 Detailed Summary Eyes: no complaints ENT: no complaints Respiratory: cough, shortness of breath, sputum, No pleuritic pain Cardiovascular: no complaints Gastrointestinal: no complaints Genitourinary: no complaints Musculoskeletal: no complaints Skin: no complaints Neurologic: no complaints Exam/Review of Systems Vital Signs Vitals Vital Signs Date Time Temp Pulse Resp B/P Pulse Ox O2 Delivery O2 Flow Rate FiO2 09/27/16 14:00 94 20 96 Nasal Cannula 2.0 09/27/16 07:36 98.4 121/68 Intake and Output 09/26/16 09/26/16 09/27/16 15:00 23:00 07:00 Intake Total 50 ml 1250 ml 360 ml Output Total 0 ml Balance 50 ml 1250 ml 360 ml Exam Constitutional: frail, obese Psych: nl mood/affect, no complaints Head: atraumatic, normocephalic Eyes: nl conjunctiva, nl lids ENMT: nl external ears & nose Neck: supple Respiratory: congested cough, crackles/rales, wheezing Cardiovascular: nl pulses, regular rate and rhythm Musculoskeletal: nl extremities to inspection Extremities: No edema Results Result Diagram: 09/27/1645 09/27/1645 Results 24 hrs Laboratory Tests Test 09/27/16 05:45 White Blood Count 3.0 L Red Blood Count 2.80 L Hemoglobin 8.8 L Hematocrit 28.2 L Mean Corpuscular Volume 100.7 Mean Corpuscular Hemoglobin 31.4 Mean Corpuscular Hemoglobin Concent 31.2 L Red Cell Distribution Width 15.9 H Platelet Count 161 Mean Platelet Volume 10.7 H Neutrophils % 55.9 Lymphocytes % 22.7 Monocytes % 17.0 H Eosinophils % 2.7 Basophils % 1.0 Nucleated Red Blood Cells % 0.0 Neutrophils # 1.7 Lymphocytes # 0.7 L Monocytes # 0.5 Eosinophils # 0.1 Basophils # 0.0 Nucleated Red Blood Cells # 0.0 Sodium Level 137 Potassium Level 4.0 Chloride Level 99 Carbon Dioxide Level 31 Anion Gap 11 Blood Urea Nitrogen 17 Creatinine 0.94 Glucose Level 92 Calcium Level 8.9 Medications Medications Current Medications IV Flush (NS 10 ml) 10 ml PRN PRN IV IV PROTOCOL Last administered on 11:28; Admin Dose 10 ML; Start 08/31/16 at 18:30 Metoprolol Tartrate (Lopressor) 5 mg Q4H PRN IV ELEVATED HEART RATE Last administered on 09/02/16 17:09; Admin Dose 5 MG; Start 09/02/16 at 17:30; Status Future Hold Morphine Sulfate (morphine) 4 mg Q3 PRN IV PAIN Last administered on 09/27/16 16:04; Admin Dose 4 MG; Start 09/05/16 at 17:00 Docusate Sodium (Colace) 100 mg TID PO Last administered on 09/27/16 12:49; Admin Dose 100 MG; Start 09/06/16 at 21:00 Bisacodyl (Dulcolax) 5 mg DAILY PRN PO CONSTIPATION Last administered on 11:43; Admin Dose 5 MG; Start 09/06/16 at 16:00 Pantoprazole (Protonix Tab) 40 mg DAILY@06 PO Last administered on 09/27/16 06: 15; Admin Dose 40 MG; Start 09/07/16 at 06:00 Atorvastatin Calcium (Lipitor) 20 mg QHS PO Last administered on 09/26/16 20:45 ; Admin Dose 20 MG; Start 09/08/16 at 21:00 Docusate Sodium (Colace) 100 mg BID PRN PO CONSTIPATION; Start 09/08/16 at 13: 00 Escitalopram Oxalate (Lexapro) 10 mg DAILY PO Last administered on 09/27/16 08: 26; Admin Dose 10 MG; Start 09/09/16 at 09:00 Senna (Senokot) 1 tab Q12H PRN PO CONSTIPATION Last administered on 09/19/16 11:43; Admin Dose 1 TAB; Start 09/08/16 at 13:00 Trazodone HCl (Desyrel) 50 mg QHS PO Last administered on 09/26/16 20:45; Admin Dose 50 MG; Start 09/08/16 at 21:00 Voriconazole (Vfend) 100 mg BID PO Last administered on 09/27/16 08:26; Admin Dose 100 MG; Start 09/11/16 at 09:00 Aspirin (Halfprin) 81 mg DAILY PO Last administered on 09/27/16 08:25; Admin Dose 81 MG; Start 09/14/16 at 09:00 Furosemide 20 mg 20 mg DAILY IV Last administered on 09/27/16 08:24; Admin Dose 20 MG; Start 09/21/16 at 14:30 Cefepime HCl (Maxipime 2gm/50 ml (Pmx)) 50 ml @ 100 mls/hr Q12 IVPB Last administered on 09/27/16 08:24; Admin Dose 100 MLS/HR; Start 09/22/16 at 11:00 Promethazine HCl/ Codeine (Phenergan/ Codeine) 10 ml Q6H PRN PO COUGH Last administered on 09/27/16 12:49; Admin Dose 10 ML; Start 09/24/16 at 07:00 Morphine Sulfate (Ms Contin (Er)) 45 mg BID PO Last administered on 09/27/16 08 :25; Admin Dose 45 MG; Start 09/25/16 at 21:30 Enoxaparin Sodium (Lovenox) 190 mg Q24H SC ; Start 09/28/16 at 17:00 Enoxaparin Sodium (Lovenox) 100 mg ONCE SC Last administered on 09/27/16 17:01 ; Admin Dose 100 MG; Start 09/27/16 at 17:00; Stop 09/27/16 at 23:00 Enoxaparin Sodium (Lovenox) 30 mg ONCE SC Last administered on 09/27/16 17:02; Admin Dose 30 MG; Start 09/27/16 at 17:00; Stop 09/27/16 at 23:00 LUKE CAAL M.D. September 27, 2016 18:48
[2016-09-27 19:36] VITALS: BP 133/74; RESP 18
[2016-09-27] MEDS: ATORVASTATIN 20 MG TAB PO SCH (20:08)
[2016-09-27] MEDS ORDERED: ENOXAPARIN 60 MG/0.6 ML SYG SC SCH (21:00)
[2016-09-28] MEDS: traZODone 50 MG TAB PO SCH (01:07)
[2016-09-28] MEDS: morphine 4 MG/ML VIAL IV PRN ×7 (01:08→18:55)
[2016-09-28] MEDS: ALBUTEROL/IPRATROPIUM (NEB) 3 ML AMP HHN SCH ×4 (01:48→19:35)
[2016-09-28] MEDS: ALBUTEROL/IPRATROPIUM (NEB) 3 ML AMP HHN PRN (02:19)
[2016-09-28] MEDS ORDERED: LEVOFLOXACIN 750 MG TABLET PO SCH (06:00)
[2016-09-28] MEDS: LEVOTHYROXINE 50 MCG TAB PO SCH (06:01)
[2016-09-28] MEDS: PANTOPRAZOLE (EC) 40 MG TAB PO SCH (06:01)
[2016-09-28 07:00] LABS: ADD SCAN DIFF NO
[2016-09-28 07:09] LABS: BASOPHILS % 0.8 % (0.0-2.0); EOSINOPHILS # 0.1 10^3/ul (0.0-0.5); EOSINOPHILS % 2.2 % (0.0-7.0); HEMATOCRIT 27.9 % (42.0-52.0); HEMOGLOBIN 8.8 g/dl (14.0-18.0); LYMPHOCYTES # 0.6 10^3/ul (0.8-2.9); LYMPHOCYTES % 17.9 % (15.0-51.0); MEAN CORPUSCULAR HEMOGLOBIN 31.7 pg (29.0-33.0); MEAN CORPUSCULAR HGB CONC 31.5 g/dl (32.0-37.0); MEAN CORPUSCULAR VOLUME 100.4 fl (82.0-101.0); MEAN PLATELET VOLUME 11.1 fl (7.4-10.4); MONOCYTE # 0.5 10^3/ul (0.3-0.9); NEUTROPHIL # 2.3 10^3/ul (1.6-7.5); NEUTROPHILS % 64.8 % (39.0-77.0); PLATELET COUNT 173 10^3/UL (140-415); RED BLOOD COUNT 2.78 10^6/ul (4.70-6.10); WHITE BLOOD COUNT 3.6 10^3/ul (4.8-10.8)
[2016-09-28 07:37] LABS: CALCIUM 8.9 mg/dl (8.4-10.2); CREATININE 0.92 mg/dl (0.61-1.24); POTASSIUM 3.9 mmol/L (3.5-5.1)
[2016-09-28 07:55] VITALS: BP 153/90; RESP 24
[2016-09-28] MEDS: ASPIRIN (EC) 81 MG TAB PO SCH (08:14)
[2016-09-28] MEDS: DOCUSATE SODIUM 100 MG CAP PO SCH ×2 (08:14→13:05)
[2016-09-28] MEDS: ESCITALOPRAM 10 MG TAB PO SCH (08:14)
[2016-09-28] MEDS: morphine (ER) 15 MG TAB PO SCH (08:15)
[2016-09-28] MEDS: VORICONAZOLE 200 MG TAB PO SCH (08:15)
[2016-09-28] MEDS: FUROSEMIDE 20 MG INJ IV SCH (08:15)
[2016-09-28] MEDS: PROMETHAZINE/CODEINE 5ML CUP PO PRN ×2 (08:22→14:27)
--- NOTE | 2016-09-28 12:25 | CONS ---
Date/Time of Note Date/Time of Note DATE: 09/28/16 TIME: 12:20 Assessment/Plan Assessment/Plan Chief Complaint/Hosp Course IMPRESSION: 1. Cardiac arrhythmia, with currently rhythm most consistent with sinus tachycardia, but also having pauses. Negative troponin x 3/TSH elevated-no recurrence/reasonable HR control 2. Abnormal electrocardiogram. trop negative x3/NL EF by echo this admit 3. Hypertension, labile. 4. Dyslipidemia. 5. Pneumonia and bronchitis. 6. Lung cancer. 7. Hypothyroidism. 8. Anemia. 9. Thrombocytopenia-now improved 10. Prior hemoptysis. 11.BNP-elevated 12.PNA 13. R UE DVT-now on full dose lovenox SQ daily Recc: -Now med-surg -Continue statin/asa -Contine voriconazole -Follow volume status closely on standing low dose lasix diuresis and follow creatnine closely -Onc/ID following -f/u sputum cx data and tailor abx as necessary -Contiue lovenox anticoagulation and follow carefully for bleeding complications given such high dose Problems: Consultation Date/Type/Reason Admit Date/Time Sep 01, 2016 at 14:47 Initial Consult Date 09/01/16 Type of Consultation: Cardiology Reason for Consultation CHF Referring Provider: MARYAM FARMER MD Exam/Review of Systems Vital Signs Vitals Vital Signs Date Time Temp Pulse Resp B/P Pulse Ox O2 Delivery O2 Flow Rate FiO2 09/28/16 09:14 107 30 94 Nasal Cannula 2.5 09/28/16 07:55 98.1 153/90 Intake and Output 09/27/16 09/27/16 09/28/16 15:00 23:00 07:00 Intake Total 1170 ml 1680 ml Balance 1170 ml 1680 ml Exam Review of Systems: CONSTITUTIONAL: No fevers, chills. PULMONARY: ongoing sob CARDIOVASCULAR: No chest pain/palpitations GASTROINTESTINAL: No nausea/vomiting. GENITOURINARY: No hematuria/dysuria. MUSCULOSKELETAL: No myagias/arthalgias. PSYCHIATRIC: The patient denies depression. NEUROLOGIC: No weakness Constitutional: alert Psych: no complaints Head: normocephalic ENMT: mucosa pink and moist Neck: jvd (9 cm water), supple Respiratory: diminished breath sounds (at bases/B), other (upper airway rhonchi ) Cardiovascular: regular rate and rhythm Gastrointestinal: non-tender, soft Musculoskeletal: muscle tone (normal) Extremities: edema (trace/B) Neurological: other (No focal deficits) Results Result Diagram: 09/28/16 0610 09/28/16 0610 Results 24 hrs Laboratory Tests Test 09/28/16 06:10 White Blood Count 3.6 L Red Blood Count 2.78 L Hemoglobin 8.8 L Hematocrit 27.9 L Mean Corpuscular Volume 100.4 Mean Corpuscular Hemoglobin 31.7 Mean Corpuscular Hemoglobin Concent 31.5 L Red Cell Distribution Width 16.0 H Platelet Count 173 Mean Platelet Volume 11.1 H Neutrophils % 64.8 Lymphocytes % 17.9 Monocytes % 14.0 H Eosinophils % 2.2 Basophils % 0.8 Nucleated Red Blood Cells % 0.0 Neutrophils # 2.3 Lymphocytes # 0.6 L Monocytes # 0.5 Eosinophils # 0.1 Basophils # 0.0 Nucleated Red Blood Cells # 0.0 Sodium Level 135 Potassium Level 3.9 Chloride Level 98 Carbon Dioxide Level 32 H Anion Gap 9 Blood Urea Nitrogen 18 Creatinine 0.92 Glucose Level 91 Calcium Level 8.9 Medications Medications Current Medications IV Flush (NS 10 ml) 10 ml PRN PRN IV IV PROTOCOL Last administered on 11:28; Admin Dose 10 ML; Start 08/31/16 at 18:30 Metoprolol Tartrate (Lopressor) 5 mg Q4H PRN IV ELEVATED HEART RATE Last administered on 09/02/16 17:09; Admin Dose 5 MG; Start 09/02/16 at 17:30; Status Future Hold Morphine Sulfate (morphine) 4 mg Q3 PRN IV PAIN Last administered on 09/28/16 10:06; Admin Dose 4 MG; Start 09/05/16 at 17:00 Docusate Sodium (Colace) 100 mg TID PO Last administered on 09/28/16 08:14; Admin Dose 100 MG; Start 09/06/16 at 21:00 Bisacodyl (Dulcolax) 5 mg DAILY PRN PO CONSTIPATION Last administered on 11:43; Admin Dose 5 MG; Start 09/06/16 at 16:00 Pantoprazole (Protonix Tab) 40 mg DAILY@06 PO Last administered on 09/28/16 06: 01; Admin Dose 40 MG; Start 09/07/16 at 06:00 Atorvastatin Calcium (Lipitor) 20 mg QHS PO Last administered on 09/27/16 20:08 ; Admin Dose 20 MG; Start 09/08/16 at 21:00 Docusate Sodium (Colace) 100 mg BID PRN PO CONSTIPATION; Start 09/08/16 at 13: 00 Escitalopram Oxalate (Lexapro) 10 mg DAILY PO Last administered on 09/28/16 08: 14; Admin Dose 10 MG; Start 09/09/16 at 09:00 Senna (Senokot) 1 tab Q12H PRN PO CONSTIPATION Last administered on 09/19/16 11:43; Admin Dose 1 TAB; Start 09/08/16 at 13:00 Trazodone HCl (Desyrel) 50 mg QHS PO Last administered on 09/28/16 01:07; Admin Dose 50 MG; Start 09/08/16 at 21:00 Voriconazole (Vfend) 100 mg BID PO Last administered on 09/28/16 08:15; Admin Dose 100 MG; Start 09/11/16 at 09:00 Aspirin (Halfprin) 81 mg DAILY PO Last administered on 09/28/16 08:14; Admin Dose 81 MG; Start 09/14/16 at 09:00 Furosemide (Lasix) 20 mg DAILY IV Last administered on 09/28/16 08:15; Admin Dose 20 MG; Start 09/21/16 at 14:30 Promethazine HCl/ Codeine (Phenergan/ Codeine) 10 ml Q6H PRN PO COUGH Last administered on 09/28/16 08:22; Admin Dose 10 ML; Start 09/24/16 at 07:00 Morphine Sulfate (Ms Contin (Er)) 45 mg BID PO Last administered on 09/28/16 08 :15; Admin Dose 45 MG; Start 09/25/16 at 21:30 Enoxaparin Sodium (Lovenox) 190 mg Q24H SC ; Start 09/28/16 at 17:00 Levofloxacin (Levaquin) 750 mg DAILY@06 PO Last administered on 09/28/16 06:01 ; Admin Dose 750 MG; Start 09/28/16 at 06:00; Stop 10/06/16 at 23:59 MARIAA ÁLVAREZ September 28, 2016 12:25
[2016-09-28] MEDS ORDERED: VORI200T12 PO (15:55)
[2016-09-28] MEDS ORDERED: ATOR20TA38 PO (15:55)
[2016-09-28] MEDS ORDERED: ESCI10TA48 PO (15:55)
[2016-09-28] MEDS ORDERED: Promethazine/Codeine Syp PO (15:55)
[2016-09-28] MEDS ORDERED: MORP15TA3 PO (15:55)
[2016-09-28] MEDS ORDERED: ASPI-664 PO (15:55)
[2016-09-28] MEDS ORDERED: ENOX100D2 SC (15:55)
[2016-09-28] MEDS ORDERED: LEVO750T25 PO (15:55)
[2016-09-28] MEDS ORDERED: LEVO75TA5 PO (15:55)
[2016-09-28] MEDS ORDERED: FURO20TA3 PO (15:55)
[2016-09-28] MEDS ORDERED: ESOM40CA PO (15:55)
--- NOTE | 2016-09-28 16:04 | PN ---
Date/Time of Note Date/Time of Note DATE: 09/28/16 TIME: 16:03 Assessment/Plan VTE Prophylaxis VTE Prophylaxis Intervention: SCD's Lines/Catheters IV C[facility]ter Type [facility]): PICC Line Central line still needed: Yes Assessment/Plan Chief Complaint/Hosp Course Assessment/Plan - S/p severe sepsis due to pneumonia/bronchitis, Dr. Fraga group is following infection disease consultation. -Enterobacter pneumonia, continue antibiotics per ID. - Advanced non-small cell lung CA, on biweekly chemotherapy infusion x2 years, Dr. Scanlon is following in oncology consultation. - Acute respiratory failure, resolving. Dr. Castanon is following in pulmonology consultation. - Pancytopenia due to chemotherapy -Right upper extremities deep venous thrombosis, continue Lovenox. -Acute on chronic diastolic congestive heart failure, continue gentle diuresis, continue to monitor electrolytes. -Cardiac arrhythmia, Dr. Gaytan is following in cardiology consultation. - h/o fungal pneumonia, on maintenance voriconazole - h/o post-obstructive pneumonia - h/o HTN, CAD, hyperlipidemia - h/o paroxysmal A fib - h/o DVT in LUE - h/o hypothyroidism D/c home upon arrangement of CM for Loovenox SQ by home health Further recommendations based on clinical course. Plan of care discussed with Dr. Lincoln. Problems: Exam/Review of Systems Vital Signs Vitals Vital Signs Date Time Temp Pulse Resp B/P Pulse Ox O2 Delivery O2 Flow Rate FiO2 09/28/16 14:31 2.0 09/28/16 13:20 110 28 Nasal Cannula 09/28/16 09:14 94 09/28/16 07:55 98.1 153/90 Intake and Output 09/27/16 09/27/16 09/28/16 15:00 23:00 07:00 Intake Total 1170 ml 1680 ml Balance 1170 ml 1680 ml Exam onstitutional: alert, oriented Psych: nl mood/affect, no complaints Head: atraumatic, normocephalic Eyes: nl conjunctiva ENMT: nl external ears & nose Neck: non-tender, supple Respiratory: diminished breath sounds, wheezing Cardiovascular: nl pulses, regular rate and rhythm Gastrointestinal: non-tender, soft Musculoskeletal: nl extremities to inspection Extremities: normal pulses Neurological: [employer]ICINE DOCTOR II-XII intact Results Result Diagram: 09/28/16 0610 09/28/16 0610 Results 24 hrs Laboratory Tests Test 09/28/16 06:10 White Blood Count 3.6 L Red Blood Count 2.78 L Hemoglobin 8.8 L Hematocrit 27.9 L Mean Corpuscular Volume 100.4 Mean Corpuscular Hemoglobin 31.7 Mean Corpuscular Hemoglobin Concent 31.5 L Red Cell Distribution Width 16.0 H Platelet Count 173 Mean Platelet Volume 11.1 H Neutrophils % 64.8 Lymphocytes % 17.9 Monocytes % 14.0 H Eosinophils % 2.2 Basophils % 0.8 Nucleated Red Blood Cells % 0.0 Neutrophils # 2.3 Lymphocytes # 0.6 L Monocytes # 0.5 Eosinophils # 0.1 Basophils # 0.0 Nucleated Red Blood Cells # 0.0 Sodium Level 135 Potassium Level 3.9 Chloride Level 98 Carbon Dioxide Level 32 H Anion Gap 9 Blood Urea Nitrogen 18 Creatinine 0.92 Glucose Level 91 Calcium Level 8.9 Medications Medications Current Medications IV Flush (NS 10 ml) 10 ml PRN PRN IV IV PROTOCOL Last administered on 11:28; Admin Dose 10 ML; Start 08/31/16 at 18:30 Metoprolol Tartrate (Lopressor) 5 mg Q4H PRN IV ELEVATED HEART RATE Last administered on 09/02/16 17:09; Admin Dose 5 MG; Start 09/02/16 at 17:30; Status Future Hold Morphine Sulfate (morphine) 4 mg Q3 PRN IV PAIN Last administered on 09/28/16 13:05; Admin Dose 4 MG; Start 09/05/16 at 17:00 Docusate Sodium (Colace) 100 mg TID PO Last administered on 09/28/16 13:05; Admin Dose 100 MG; Start 09/06/16 at 21:00 Bisacodyl (Dulcolax) 5 mg DAILY PRN PO CONSTIPATION Last administered on 11:43; Admin Dose 5 MG; Start 09/06/16 at 16:00 Pantoprazole (Protonix Tab) 40 mg DAILY@06 PO Last administered on 09/28/16 06: 01; Admin Dose 40 MG; Start 09/07/16 at 06:00 Atorvastatin Calcium (Lipitor) 20 mg QHS PO Last administered on 09/27/16 20:08 ; Admin Dose 20 MG; Start 09/08/16 at 21:00 Docusate Sodium (Colace) 100 mg BID PRN PO CONSTIPATION; Start 09/08/16 at 13: 00 Escitalopram Oxalate (Lexapro) 10 mg DAILY PO Last administered on 09/28/16 08: 14; Admin Dose 10 MG; Start 09/09/16 at 09:00 Senna (Senokot) 1 tab Q12H PRN PO CONSTIPATION Last administered on 09/19/16 11:43; Admin Dose 1 TAB; Start 09/08/16 at 13:00 Trazodone HCl (Desyrel) 50 mg QHS PO Last administered on 09/28/16 01:07; Admin Dose 50 MG; Start 09/08/16 at 21:00 Voriconazole (Vfend) 100 mg BID PO Last administered on 09/28/16 08:15; Admin Dose 100 MG; Start 09/11/16 at 09:00 Aspirin (Halfprin) 81 mg DAILY PO Last administered on 09/28/16 08:14; Admin Dose 81 MG; Start 09/14/16 at 09:00 Furosemide (Lasix) 20 mg DAILY IV Last administered on 09/28/16 08:15; Admin Dose 20 MG; Start 09/21/16 at 14:30 Promethazine HCl/ Codeine (Phenergan/ Codeine) 10 ml Q6H PRN PO COUGH Last administered on 09/28/16 14:27; Admin Dose 10 ML; Start 09/24/16 at 07:00 Morphine Sulfate (Ms Contin (Er)) 45 mg BID PO Last administered on 09/28/16 08 :15; Admin Dose 45 MG; Start 09/25/16 at 21:30 Enoxaparin Sodium (Lovenox) 190 mg Q24H SC ; Start 09/28/16 at 17:00 Levofloxacin (Levaquin) 750 mg DAILY@06 PO Last administered on 09/28/16 06:01 ; Admin Dose 750 MG; Start 09/28/16 at 06:00; Stop 10/06/16 at 23:59 LUBA EARLY September 28, 2016 16:04
[2016-09-28] MEDS ORDERED: ENOXAPARIN 100 MG/ML SYG SC SCH (17:00)
[2016-09-28 19:23] VITALS: BP 133/83; RESP 20
--- NOTE | 2016-09-28 20:08 | CONS ---
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 Diamond in [place]. aspergillus antibody was > 1:64 but aspergillus antigen in serum by EIA was negative during this admission. - DVT of RUE - b/l knee pain - h/o post-obstructive pneumonia - h/o HTN, CAD, hyperlipidemia - h/o paroxysmal A fib - h/o DVT in LUE - hypothyroidism with elevated TSH level - hypomagnesemia - HIV negative in 2013 - neutropenia recommendations: - continue levofloxacin for pneumonia due to enterobacter, plan for two weeks through 10/06/2016. Pt took cefepime (09/22/2016-09/27/2016) - continue PO voriconazole at the current dose per instruction by Dr. Diamond, his ID specialist. Per Pt, he is supposed to take it for 6 months since the beginning of 04/2016 - I instructed Pt to see me in the office next week management d/w Pt, his Problems: Consultation Date/Type/Reason Admit Date/Time Sep 01, 2016 at 14:47 Initial Consult Date 09/01/16 Type of Consultation: ID Referring Provider: MARYAM FARMER MD 24 HR Interval Summary Constitutional: no complaints Detailed Summary Eyes: no complaints ENT: no complaints Respiratory: cough, shortness of breath, sputum, wheezing, No pleuritic pain Cardiovascular: no complaints Gastrointestinal: no complaints Genitourinary: no complaints Musculoskeletal: no complaints Skin: no complaints Neurologic: no complaints Exam/Review of Systems Vital Signs Vitals Vital Signs Date Time Temp Pulse Resp B/P Pulse Ox O2 Delivery O2 Flow Rate FiO2 09/28/16 19:43 2.0 09/28/16 19:42 98 22 97 Nasal Cannula 09/28/16 19:23 98.3 133/83 Intake and Output 5/3/17 5/3/17 5/4/17 14:59 22:59 06:59 Intake Total 1170 ml 1680 ml Balance 1170 ml 1680 ml Exam Constitutional: alert, obese, oriented, well developed Psych: nl mood/affect, no complaints Head: atraumatic, normocephalic Eyes: nl conjunctiva, nl lids ENMT: nl external ears & nose, nl nasal mucosa & septum Respiratory: wheezing Cardiovascular: nl pulses, regular rate and rhythm Musculoskeletal: nl extremities to inspection Extremities: edema (RUE) 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, nl mental status, nl speech Skin: nl turgor Results Result Diagram: 09/28/16 0610 09/28/16 0610 Results 24 hrs Laboratory Tests Test 09/28/16 06:10 White Blood Count 3.6 L Red Blood Count 2.78 L Hemoglobin 8.8 L Hematocrit 27.9 L Mean Corpuscular Volume 100.4 Mean Corpuscular Hemoglobin 31.7 Mean Corpuscular Hemoglobin Concent 31.5 L Red Cell Distribution Width 16.0 H Platelet Count 173 Mean Platelet Volume 11.1 H Neutrophils % 64.8 Lymphocytes % 17.9 Monocytes % 14.0 H Eosinophils % 2.2 Basophils % 0.8 Nucleated Red Blood Cells % 0.0 Neutrophils # 2.3 Lymphocytes # 0.6 L Monocytes # 0.5 Eosinophils # 0.1 Basophils # 0.0 Nucleated Red Blood Cells # 0.0 Sodium Level 135 Potassium Level 3.9 Chloride Level 98 Carbon Dioxide Level 32 H Anion Gap 9 Blood Urea Nitrogen 18 Creatinine 0.92 Glucose Level 91 Calcium Level 8.9 Medications Medications Current Medications IV Flush (NS 10 ml) 10 ml PRN PRN IV IV PROTOCOL Last administered on 11:28; Admin Dose 10 ML; Start 08/31/16 at 18:30 Metoprolol Tartrate (Lopressor) 5 mg Q4H PRN IV ELEVATED HEART RATE Last administered on 09/02/16 17:09; Admin Dose 5 MG; Start 09/02/16 at 17:30; Status Future Hold Morphine Sulfate (morphine) 4 mg Q3 PRN IV PAIN Last administered on 09/28/16 18:55; Admin Dose 4 MG; Start 09/05/16 at 17:00 Docusate Sodium (Colace) 100 mg TID PO Last administered on 09/28/16 13:05; Admin Dose 100 MG; Start 09/06/16 at 21:00 Bisacodyl (Dulcolax) 5 mg DAILY PRN PO CONSTIPATION Last administered on 11:43; Admin Dose 5 MG; Start 09/06/16 at 16:00 Pantoprazole (Protonix Tab) 40 mg DAILY@06 PO Last administered on 09/28/16 06: 01; Admin Dose 40 MG; Start 09/07/16 at 06:00 Atorvastatin Calcium (Lipitor) 20 mg QHS PO Last administered on 09/27/16 20:08 ; Admin Dose 20 MG; Start 09/08/16 at 21:00 Docusate Sodium (Colace) 100 mg BID PRN PO CONSTIPATION; Start 09/08/16 at 13: 00 Escitalopram Oxalate (Lexapro) 10 mg DAILY PO Last administered on 09/28/16 08: 14; Admin Dose 10 MG; Start 09/09/16 at 09:00 Senna (Senokot) 1 tab Q12H PRN PO CONSTIPATION Last administered on 09/19/16 11:43; Admin Dose 1 TAB; Start 09/08/16 at 13:00 Trazodone HCl (Desyrel) 50 mg QHS PO Last administered on 09/28/16 01:07; Admin Dose 50 MG; Start 09/08/16 at 21:00 Voriconazole (Vfend) 100 mg BID PO Last administered on 09/28/16 08:15; Admin Dose 100 MG; Start 09/11/16 at 09:00 Aspirin (Halfprin) 81 mg DAILY PO Last administered on 09/28/16 08:14; Admin Dose 81 MG; Start 09/14/16 at 09:00 Furosemide (Lasix) 20 mg DAILY IV Last administered on 09/28/16 08:15; Admin Dose 20 MG; Start 09/21/16 at 14:30 Promethazine HCl/ Codeine (Phenergan/ Codeine) 10 ml Q6H PRN PO COUGH Last administered on 09/28/16 14:27; Admin Dose 10 ML; Start 09/24/16 at 07:00 Morphine Sulfate (Ms Contin (Er)) 45 mg BID PO Last administered on 09/28/16 08 :15; Admin Dose 45 MG; Start 09/25/16 at 21:30 Enoxaparin Sodium (Lovenox) 190 mg Q24H SC Last administered on 09/28/16 16:10 ; Admin Dose 190 MG; Start 09/28/16 at 17:00 Levofloxacin (Levaquin) 750 mg DAILY@06 PO Last administered on 09/28/16 06:01 ; Admin Dose 750 MG; Start 09/28/16 at 06:00; Stop 10/06/16 at 23:59 LUKE CAAL M.D. September 28, 2016 20:08
--- NOTE | 2016-09-28 22:12 | CONS ---
Date/Time of Note Date/Time of Note DATE: 09/28/16 TIME: 22:11 VK LE Assessment/Plan Assessment/Plan Chief Complaint/Hosp Course metastatic lung CANCER, NSCLC - ON CHEMO PANCYTOPENIA POST CHEMO MONITOR CLOSELY LEUKOPENIA- POST CHEMO POST NEUPOGEN POST Hypoxemic respiratory failure, possibly secondary to a reaction to chemotherapy. severe pneumonia/bronchitis due to enterobacter (09/22/2016-) DVT LOVENOX- INCREASE TO THER DOSE History of coronary artery disease. chronic obstructive pulmonary disease OK TO DC F-UP OUTPT Problems: Consultation Date/Type/Reason Admit Date/Time Sep 01, 2016 at 14:47 Initial Consult Date 09/01/16 Type of Consultation: HEMEONC Referring Provider: MARYAM FARMER MD 24 HR Interval Summary Free Text/Dictation FELLING BETTER GOING HOME TODAY Exam/Review of Systems Vital Signs Vitals Vital Signs Date Time Temp Pulse Resp B/P Pulse Ox O2 Delivery O2 Flow Rate FiO2 09/28/16 19:43 2.0 09/28/16 19:42 98 22 97 Nasal Cannula 09/28/16 19:23 98.3 133/83 Intake and Output 09/27/16 09/27/16 09/28/16 15:00 23:00 07:00 Intake Total 1170 ml 1680 ml Balance 1170 ml 1680 ml Exam onstitutional: alert, oriented Psych: nl mood/affect, no complaints Head: atraumatic, normocephalic Eyes: nl conjunctiva ENMT: nl external ears & nose Neck: non-tender, supple Respiratory: diminished breath sounds, wheezing Cardiovascular: nl pulses, regular rate and rhythm Gastrointestinal: non-tender, soft Musculoskeletal: nl extremities to inspection Extremities: normal pulses 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 Results Result Diagram: 09/28/16 0610 09/28/16 0610 Results 24 hrs Laboratory Tests Test 09/28/16 06:10 White Blood Count 3.6 L Red Blood Count 2.78 L Hemoglobin 8.8 L Hematocrit 27.9 L Mean Corpuscular Volume 100.4 Mean Corpuscular Hemoglobin 31.7 Mean Corpuscular Hemoglobin Concent 31.5 L Red Cell Distribution Width 16.0 H Platelet Count 173 Mean Platelet Volume 11.1 H Neutrophils % 64.8 Lymphocytes % 17.9 Monocytes % 14.0 H Eosinophils % 2.2 Basophils % 0.8 Nucleated Red Blood Cells % 0.0 Neutrophils # 2.3 Lymphocytes # 0.6 L Monocytes # 0.5 Eosinophils # 0.1 Basophils # 0.0 Nucleated Red Blood Cells # 0.0 Sodium Level 135 Potassium Level 3.9 Chloride Level 98 Carbon Dioxide Level 32 H Anion Gap 9 Blood Urea Nitrogen 18 Creatinine 0.92 Glucose Level 91 Calcium Level 8.9 DAHIANA BABCOCK MD September 28, 2016 22:12
--- NOTE | 2016-10-02 05:45 | DS ---
DATE OF ADMISSION: 09/01/2016 DATE OF DISCHARGE: 09/28/2016 FINAL DIAGNOSES: 1. Status post severe sepsis due to pneumonia. 2. Enterobacter pneumonia. 3. Advanced non-small cell cancer. 4. Acute respiratory failure requiring intubation and mechanical ventilator, resolved. 5. Pancytopenia on admission secondary to chemotherapy. 6. Right upper extremity deep venous thrombosis. 7. Acute on chronic diastolic congestive heart failure. 8. History of fungal pneumonia. 9. Hypertension. 10. Coronary artery disease. 11. Hyperlipidemia. 12. History of paroxysmal atrial fibrillation. 13. History of deep venous thrombosis in the left upper extremity. BRIEF HISTORY: The patient is a 60-year-old gentleman known to me from previous admission. The pat ient with a history of advanced non-small cell lung cancer on biweekly chemotherapy infusion over [address] follows [address] Dr. Scanlon in oncology consultation. The patient was brought to the [facility] by ambulance from home due to shortness of breath and hypoxemia. The patient was placed on CPAP by paramedics; however, no improvement. The patient was orally intubated, placed on mechanical hina tilator in the emergency room, and admitted for further evaluation and management. HOSPITAL COURSE: The patient was evaluated by Dr. Pena and followed by Dr. Castanon in pulmonolo gy consultation. The patient was evaluated by Dr. Tesfaye in infectious disease consultation and w as started on broad spectrum antibiotics. The patient was also followed by Dr. Scanlon in hematol ogy/oncology consultation. The patient's sputum culture grew multiple organisms including enterobac ter during this admission, and the patient was also followed by Dr. Gaytan in cardiology consultati on. After treatment with antibiotics, the patient's condition gradually resolved. The patient was orally extubated; however, the patient still required oxygen supplementation via nasal cannula and c ontinued to have nonproductive cough. The patient completed treatment with antibiotics, and repeat sputum culture showed normal respiratory ravi. The patient was recommended to complete treatment w ith Levaquin for pneumonia. The patient will be continued on p.o. 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 The patient's condition has gradually improved, and the patient was discharged home with [facility] and arrangements for home oxygen. CONDITION ON DISCHARGE: Hemodynamically stable. ACTIVITY: As the patient tolerates. DIET: Regular diet. DISCHARGE MEDICATIONS: The patient is given prescription for 1. Lovenox to complete the treatment for right upper extremity DVT. 2. Lasix 20 mg p.o. daily. 3. Levaquin 750 mg p.o. daily for 8 more days. 4. MS Contin 45 mg p.o. b.i.d. 5. Voriconazole 100 mg p.o. b.i.d. for 30 days x5 refills. 6. Phenergan-codeine syrup p.r.n. for cough. The patient is to continue on his home medication of 7. Aspirin. 8. Atorvastatin. 9. Colace. 10. Citalopram. 11. Omeprazole. 12. Levothyroxine. 13. Senna. 14. Trazodone. Which were all renewed. FOLLOWUP: The patient is instructed to follow up with Dr. Scanlon in hematology/oncology consulta tion. Interdisciplinary plan of care was established for this patient. Plan of care was discussed with Dr Skyler Farmer. Dictated By: LUBA EARLY CLIENT DEVELOPMENT CONSULTANT for MARYAM FARMER MD SR/NTS Conf#: [id number] DID#: [id number]
== END 2016-09-28 20:45 | disposition home health service (06) | DRG 871 ==
LOC: E/R 14:29 → ICU 09-01 14:47 → UNDOADMIN 09-01 14:47 → TEL 09-04 00:01 → MS2 09-13 21:59
PROVIDERS: ADMIT Internal Medicine; ATTEND Internal Medicine
PROC: 5A1945Z Respiratory Ventilation, 24-96 Consecutive Hours (ICD-10-PCS; principal; 2016-08-31)
PROC: 0BH17EZ Insertion of Endotracheal Airway into Trachea, Via Natural or Artificial Opening (ICD-10-PCS; 2016-08-31)
PROC: 02HV33Z Insertion of Infusion Device into Superior Vena Cava, Percutaneous Approach (ICD-10-PCS; 2016-08-31)
DX: A41.9 Sepsis, unspecified organism (principal); J18.9 Pneumonia, unspecified organism; J96.01 Acute respiratory failure with hypoxia; I50.33 Acute on chronic diastolic (congestive) heart failure; D61.810 Antineoplastic chemotherapy induced pancytopenia; J96.02 Acute respiratory failure with hypercapnia; J44.0 Chronic obstructive pulmonary disease with (acute) lower respiratory infection; D69.6 Thrombocytopenia, unspecified; C78.01 Secondary malignant neoplasm of right lung; J44.1 Chronic obstructive pulmonary disease with (acute) exacerbation; I82.621 Acute embolism and thrombosis of deep veins of right upper extremity; R04.2 Hemoptysis; J20.8 Acute bronchitis due to other specified organisms; I10 Essential (primary) hypertension; R65.20 Severe sepsis without septic shock; I49.9 Cardiac arrhythmia, unspecified; I25.10 Atherosclerotic heart disease of native coronary artery without angina pectoris; E03.9 Hypothyroidism, unspecified; E83.42 Hypomagnesemia; E66.9 Obesity, unspecified; E87.6 Hypokalemia; E78.5 Hyperlipidemia, unspecified; D64.9 Anemia, unspecified; N40.0 Benign prostatic hyperplasia without lower urinary tract symptoms; R00.0 Tachycardia, unspecified; Z85.118 Personal history of other malignant neoplasm of bronchus and lung; Z86.718 Personal history of other venous thrombosis and embolism; Z68.36 Body mass index [BMI] 36.0-36.9, adult; Z87.01 Personal history of pneumonia (recurrent)
CPT/HCPCS: 31500; 36415; 36430; 36569; 36600; 71010; 71275; 73560; 74230; 76937; 80048; 80053; 80061; 80202; 81001; 81003; 82803; 83605; 83735; 83880; 84100; 84145; 84439; 84443; 84484; 85025; 85610; 85730; 86480; 86606; 86635; 86641; 86850; 86900; 86901; 86920; 87040; 87070; 87081; 87086; 87275; 87276; 87279; 87280; 87400; 87449; 87502; 89220; 92526; 92610; 92611; 93005; 93306; 93971; 94002; 94003; 94640; 94664; 94770; 96361; 96365; 96366; 96367; 96368; 96375; 96376; 97116; 97163; 97530; J1940; C9113; J0692; J1650; J1956; J2060; J2185; J2270; J3370; J3465; J3475; J3480; J7030; J7040; J7042; J7050; P9016; Q9967

== ENCOUNTER 2017-01-31 14:40 | Inpatient (IN) | payer MEDICAID ==
[~2017-01-31] VITALS: Ht 172.7 cm; Wt 115.0 kg
[~2017-01-31 14:40] MED LIST changes: +ASPI-664 PO; -ASPI81TA3 PO; +ATOR20TA38 PO; -BUDE6HFA INHALATION; -CHOL400T10 PO; -CYAN100T PO; +DOCU100C26 PO; +ENOX100D2 SC; -ESCI10TA PO; +ESCI10TA48 PO; +ESOM40CA PO; -ETOMIDATE 20 MG INJ ONE; +FURO20TA3 PO; -GUAI-637 PO; -HYDR-3498 PO; -LEVO50TA83 PO; +LEVO750T25 PO; +LEVO75TA5 PO; -METO25TA7 PO; +MORP15TA3 PO; -NAPR-260 PO; +SENN-53 PO; +TRAZ50TA18 PO; +VORI200T12 PO; -ZOLP5TAB PO
[2017-01-31] MEDS ORDERED: ASPI-664 PO (15:42)
[2017-01-31] MEDS ORDERED: METO-319 PO (15:42)
[2017-01-31] MEDS ORDERED: CEPH500C PO (15:43)
[2017-01-31] MEDS ORDERED: CEPH750C6 PO (15:43)
[2017-01-31] MEDS ORDERED: SULF1TAB31 PO (15:45)
[2017-01-31 15:58] LABS: BASOPHILS % 0.2 % (0.0-2.0); HEMATOCRIT 31.4 % (42.0-52.0); HEMOGLOBIN 9.9 g/dl (14.0-18.0); LYMPHOCYTES # 0.8 10^3/ul (0.8-2.9); LYMPHOCYTES % 4.9 % (15.0-51.0); MEAN CORPUSCULAR HEMOGLOBIN 32.5 pg (29.0-33.0); MEAN CORPUSCULAR HGB CONC 31.5 g/dl (32.0-37.0); MEAN PLATELET VOLUME 11.2 fl (7.4-10.4); MONOCYTE # 0.8 10^3/ul (0.3-0.9); NEUTROPHILS % 88.5 % (39.0-77.0); NUCLEATED RED BLOOD CELLS% 0.2 /100WBC (0.0-0.0); PLATELET COUNT 130 10^3/UL (140-415); RED BLOOD COUNT 3.05 10^6/ul (4.70-6.10); RED CELL DISTRIBUTION WIDTH 15.3 % (11.5-14.5); WHITE BLOOD COUNT 16.5 10^3/ul (4.8-10.8)
--- NOTE | 2017-01-31 16:00 | RADRPT ---
PROCEDURE: Chest Radiograph. CLINICAL INDICATION: Chest pain TECHNIQUE: Single frontal chest radiograph. COMPARISON: Chest radiograph 09/22/2016 FINDINGS: There is near complete whiteout of the right hemithorax with small amounts of aerated lung in the ri ght lung base, worsened compared to prior study. There is questionable narrowing of the trachea and shift to the right of the trachea which may be related to upper lobe collapse. The upper lobe appear ed collapsed on the prior study. There is either progression of disease or new superimposed right m iddle lobe infiltrate. Left lung remains clear.. The bones are intact. IMPRESSION: 1. Near complete whiteout of the right hemithorax with mediastinal shift to the right suggesting ne ar complete collapse. This appears worsened when compared to prior study. RPTAT: KK .Yan Fields MD, Date Time Electronically viewed and signed by .Yan Fields MD, on 01/31/2017 16:00 .B/
[2017-01-31 16:15] LABS: INR 1.08; PT RATIO 1.1
[2017-01-31 16:16] LABS: PARTIAL THROMBOPLASTIN TIME 34.4 Sec (25.0-35.0)
[2017-01-31 16:19] LABS: ALANINE AMINOTRANSFERASE 26 IU/L (13-69); ALBUMIN/GLOBULIN RATIO 1.15; ALKALINE PHOSPHATASE 103 IU/L (42-121); ANION GAP 9 (8-16); ASPARTATE AMINO TRANSFERASE 30 IU/L (15-46); BLOOD UREA NITROGEN 18 mg/dl (7-20); CALCIUM 8.4 mg/dl (8.4-10.2); CARBON DIOXIDE 33 mmol/L (21-31); CHLORIDE 99 mmol/L (97-110); CREATININE 1.18 mg/dl (0.61-1.24); GLUCOSE 110 mg/dl (70-220); POTASSIUM 4.2 mmol/L (3.5-5.1); SODIUM 137 mmol/L (135-144); TOTAL PROTEIN 5.6 g/dl (6.1-8.1)
[2017-01-31 16:28] LABS: B-TYPE NATRIURETIC PEPTIDE 1370 PG/ML (0-125)
[2017-01-31 16:33] LABS: TROPONIN-I < 0.012 ng/ml (0.00-0.12)
[2017-01-31 16:52] LABS: BILIRUBIN,INDIRECT 0.1 mg/dl (0-1.1); BILIRUBIN,TOTAL 0.1 mg/dl (0.2-1.3)
[2017-01-31] MEDS ORDERED: IODIXANOL LOCM 100 ML BTL ONE (17:10)
[2017-01-31] MEDS ORDERED: IODIXANOL LOCM 50 ML BTL ONE (17:10)
[2017-01-31] MEDS ORDERED: SOD CHLORIDE 0.9% 100 ML ONE (17:10)
--- NOTE | 2017-01-31 17:50 | ERA ---
ER Documentation Chief Complaint Date/Time DATE: 01/31/17 TIME: 17:47 Chief Complaint shortness of breath, hx of lung cancer on oxygen at home HPI 61-year-old male history of metastatic lung CA on chemotherapy who presents the emergency room with shortness of breath. He states worsening shortness of breath over the past 24-48 hours. The patient does use home oxygen but this is worsening. He states the shortness of breath is worse when laying flat. No significant fevers or cough. He denies any pleuritic pain. He has had DVTs during this course but is not taking any anticoagulants. ROS All systems reviewed and are negative except as per history of present illness. Medications Home Meds Active Scripts Furosemide* (Furosemide*) 20 Mg Tablet, 20 MG PO DAILY for 30 Days, #60 TAB Prov:LUBA EARLY 09/28/16 Esomeprazole Mag Trihydrate (Nexium) 40 Mg Capsule.dr, 40 MG PO DAILY for 30 Days, #30 CAP Prov:LUBA EARLY 09/28/16 Atorvastatin Calcium* (Atorvastatin Calcium*) 20 Mg Tablet, 20 MG PO QHS for 30 Days, #30 TAB Prov:LUBA EARLY 09/28/16 Levothyroxine Sodium* (Levothyroxine Sodium*) 75 Mcg Tablet, 75 MCG PO BEFORE BREAKFAST, #30 TAB Prov:LUBA EARLY 09/28/16 Escitalopram Oxalate* (Escitalopram Oxalate*) 10 Mg Tablet, 10 MG PO DAILY for 30 Days, #30 TAB Prov:LUBA EARLY 09/28/16 Reported Medications Sulfamethoxazole/Trimethoprim* (Bactrim Ds* Tablet) 1 Each Tablet, 1 TAB PO BID , TAB FOR 7 DAYS 01/31/17 Cephalexin* (Cephalexin*) 500 Mg Capsule, 500 MG PO TID, #21 CAP FOR 7DAYS 01/31/17 Aspirin* (Aspirin* EC) 81 Mg Tablet.dr, 81 MG PO Q7D, TAB 01/31/17 Metoprolol Succinate* (Toprol XL*) 50 Mg Tab.er.24h, 50 MG PO BID, #30 TAB 01/31/17 Discontinued Reported Medications Cephalexin* (Cephalexin*) 750 Mg Capsule, 750 MG PO Q8 for 7 Days, #21 CAP 01/31/17 Docusate Sodium* (Doc-Q-Lace*) 100 Mg Capsule, 100 MG PO BID Y for CONSTIPATION , CAP 08/31/16 Sennosides* (Senna Lax*) 8.6 Mg Tablet, 1 TAB PO Q12H Y for CONSTIPATION, TAB 08/31/16 Trazodone Hcl* (Trazodone Hcl*) 50 Mg Tablet, 50 MG PO QHS, #30 TAB 08/31/16 Discontinued Scripts [Promethazine/Codeine Syp] 5 ML SYRUP No Conflict Check, 10 ML PO Q6H Y for COUGH for 30 Days Prov:LUBA EARLY 09/28/16 Morphine Sulfate (Morphine Sulfate ER) 15 Mg Tablet.er, 45 MG PO BID, #30 TAB Prov:LUBA EARLY 09/28/16 Levofloxacin* (Levaquin*) 750 Mg Tablet, 750 MG PO DAILY@06 for 8 Days, TAB Prov:LUBA EARLY 09/28/16 Voriconazole* (Vfend*) 200 Mg Tablet, 100 MG PO BID for 30 Days, TAB Prov:LUBA EARLY 09/28/16 Enoxaparin Sodium (Enoxaparin Sodium) 100 Mg/1 Ml Syringe, 190 MG SC Q24H for 30 Days Prov:LUBA EARLY 09/28/16 Aspirin* (Aspirin* EC) 81 Mg Tablet.dr, 81 MG PO DAILY for 30 Days, TAB Prov:LUBA EARLY 09/28/16 Allergies Allergies: Coded Allergies: No Known Allergy (Unverified , 01/31/17) PMhx/Soc History of Surgery: Yes (right midle finger partial amputation 1985, gallbladder removal 1996, nose ) Anesthesia Reaction: No Hx Neurological Disorder: No Hx Respiratory Disorders: Yes (non small cell ca,sob, pna, intubated) Hx Cardiac Disorders: Yes (paroxismal afib) Hx Psychiatric Problems: No Hx Miscellaneous Medical Probl: Yes (Stage 4 lung CA, CAD, HTN, A-fib, COPD) Hx Alcohol Use: No Hx Substance Use: No Hx Tobacco Use: Yes Smoking Status: Former smoker FmHx Family History: No diabetes Physical Exam Vitals Vital Signs Date Time Temp Pulse Resp B/P Pulse Ox O2 Delivery O2 Flow Rate FiO2 01/31/17 17:50 98.4 87 18 123/72 100 BIPAP 01/31/17 17:30 88 100 30 01/31/17 15:42 Nasal Cannula 2 01/31/17 14:42 98.4 88 32 136/87 98 Physical Exam General: Well developed, well nourished, slight increased work of breathing improved when sitting up Head: Normocephalic, atraumatic Eyes: Pupils equally reactive, EOM intact ENT: Moist mucous membranes Neck: Supple, no lymphadenopathy Respiratory: Rhonchi at the bases bilaterally, muffled breath sounds in the right lung [place]ha cardiovascular: RRR, no murmurs, rubs, or gallops Abdominal: Soft, non-tender, non-distended, no peritoneal signs : Deferred MSK: No edema, no unilateral swelling, 5/5 strength Neurologic: Alert and oriented, moving all extremities, normal speech, no focal weakness, no cerebellar signs Skin: No rash Psych: Normal mood Result Diagram: 01/31/17 1540 01/31/17 1540 Results 24 hrs Laboratory Tests Test 01/31/17 15:40 White Blood Count 16.510^3/ul Red Blood Count 3.0510^6/ul Hemoglobin 9.9g/dl Hematocrit 31.4% Mean Corpuscular Volume 103.0fl Mean Corpuscular Hemoglobin 32.5pg Mean Corpuscular Hemoglobin Concent 31.5g/dl Red Cell Distribution Width 15.3% Platelet Count 35735^3/UL Mean Platelet Volume 11.2fl Neutrophils % 88.5% Lymphocytes % 4.9% Monocytes % 5.0% Eosinophils % 0.0% Basophils % 0.2% Nucleated Red Blood Cells % 0.2/100WBC Neutrophils # (Manual) 14.610^3/ul Lymphocytes # 0.810^3/ul Monocytes # 0.810^3/ul Eosinophils # 0.010^3/ul Basophils # 0.010^3/ul Nucleated Red Blood Cells # 0.010^3/ul Prothrombin Time 14.0Sec Prothrombin Time Ratio 1.1 INR International Normalized Ratio 1.08 Activated Partial Thromboplast Time 34.4Sec Sodium Level 137mmol/L Potassium Level 4.2mmol/L Chloride Level 99mmol/L Carbon Dioxide Level 33mmol/L Anion Gap 9 Blood Urea Nitrogen 18mg/dl Creatinine 1.18mg/dl Glucose Level 110mg/dl Lactic Acid Level 1.5mmol/L Calcium Level 8.4mg/dl Total Bilirubin 0.1mg/dl Direct Bilirubin 0.00mg/dl Indirect Bilirubin 0.1mg/dl Aspartate Amino Transf (AST/SGOT) 30IU/L Alanine Aminotransferase (ALT/SGPT) 26IU/L Alkaline Phosphatase 103IU/L Troponin I < 0.012ng/ml B-Type Natriuretic Peptide 1370PG/ML Total Protein 5.6g/dl Albumin 3.0g/dl Globulin 2.60g/dl Albumin/Globulin Ratio 1.15 Current Medications Medications (Trade) Dose Ordered Sig/Michael Route PRN Reason Start Time Stop Time Status Last Admin Dose Admin IV Flush 10 ml 10 ml STK-MED ONCE .ROUTE 01/31/17 17:10 01/31/17 17:11 DC Sodium Chloride (NS) 100 ml @ ud STK-MED ONCE .ROUTE 01/31/17 17:10 01/31/17 17:11 DC Iodixanol (Visipaque Locm) 100 ml STK-MED ONCE .ROUTE 01/31/17 17:10 01/31/17 17:11 DC Iodixanol (Visipaque Locm) 50 ml STK-MED ONCE .ROUTE 01/31/17 17:10 01/31/17 17:11 DC Procedures/MDM EKG, MONITORS, & DIAGNOSTIC IMAGING: Chest x-ray: I reviewed and interpreted a 1 view of the chest Mediastinum: No enlargement Cardiac silhouette: No cardiomegaly Airspace: Complete whiteout of the right hemithorax bones: No evidence of fracture EKG: I reviewed and interpreted a 12-lead EKG. Rhythm: Normal sinus rhythm Ectopy: None Intervals: No abnormalities ST segments: No elevations or depressions T waves: No contiguous inversions CTPA: IMPRESSION: No visualized pulmonary embolus. Continued soft tissue encasement of the right hilum, right mainstem bronchus and brett with interval increase in severe narrowing of the distal right mainstem bronchus, right upper lobe bronchus, bronchus intermedius, right lower lobe bronchus and right middle lobe bronchus. Soft tissue encasement of the right hilum may reflect the patient's known lung malignancy. Unchanged abrupt termination of the right ascending pulmonary artery, likely secondary to soft tissue encasement. Stable complete consolidation of the right upper and middle lobes, cavitation in the right upper lobe and medial consolidation in the right lower lobe. Loculated appearing small right pleural effusion with continued pleural thickening surrounding the right lung. Small amount of ascites adjacent to the spleen. RPTAT: AA LAB INTERPRETATION: Leukocytosis likely secondary to stress response or malignancy, normal lactic acid and troponin. Indeterminate BMP MEDICAL DECISION MAKING: The patient presents with shortness of breath. His chest x-ray reveals complete whiteout of the right hemithorax that is possibly related to pleural effusion, atelectasis versus infiltrate. Unclear etiology at this point, CT indicated to rule out PE and will further delineate the patient's process in the chest. It does appear on prior x-rays that this is something the patient has dealt with in the past. I am not sure that thoracentesis will benefit this patient, CT imaging to further delineate the cause of the white out. The patient does have worsening respiratory effort and will benefit from positive pressure ventilation. He was started on BiPAP and sat upright. His oncologist was consulted. At this time the patient is protecting his airway and does not require intubation. ER COURSE: The patient did have deterioration requiring BiPAP but he does have stabilization and improvement with positive pressure ventilation. His CTPA shows no evidence of pulmonary embolism however shows extensive soft tissue constriction of the patient's pulmonary parenchyma. This is likely the etiology of the patient's shortness of breath. It does not appear that thoracentesis will be beneficial given no significant pleural effusion. This appears to be related to progression of disease process and malignancy. I do not believe the diuretics or further interventions are necessary. The patient may benefit from pulmonary consultation I am not sure if bronchoscopy or pulmonary stenting would be reasonable. Certainly progression of conversation for goals of care and potential for hospice or palliative care consultation would be reasonable. This can be directed by his oncologist. I spoke to Dr. Scanlon we discussed the case and CT imaging. She verbalized understanding and will follow the case. I kept the patient and/or family informed of laboratory and diagnostic imaging results throughout the emergency room course. DISPOSITION PLAN: Intensive care unit for respiratory failure CONSULTATION: Accepting care team and consultations: I discussed the current laboratory data, diagnostic imaging and emergency care provided. Admitting team: Dr. Lincoln, prior admissions under this provider Admitting team indication: Insurance directed Consulting services: Dr. Clark, hematology oncology Critical Care Note: Total time: 46 minutes Indication/Organ System Threat: Acute respiratory failure I spent the above amount of critical care time with the patient, not including billable procedures. This included chart review, consultations, repeat bedside evaluations, and titration of appropriate medications to prevent cardiopulmonary or respiratory collapse. Departure Diagnosis: Primary Impression: Metastatic primary lung cancer Qualified Code: C34.91 - Primary malignant neoplasm of right lung metastatic to other site Additional Impressions: Shortness of breath Acute respiratory failure Qualified Code: J96.00 - Acute respiratory failure, unspecified whether with hypoxia or hypercapnia Condition: Serious LARISA ABREU MD Jan 31, 2017 17:50
--- NOTE | 2017-01-31 18:04 | RADRPT ---
PROCEDURE: CTA Chest with IV contrast. CLINICAL INDICATION: Chest pain and shortness of breath. TECHNIQUE: The study was performed utilizing a multidetector CT scanner. Direct spiral axial secti ons were obtained from the thoracic inlet through the upper abdomen before and after the injection o f 125 cc Omnipaque 350 intravenous contrast material and reformatted at 1.25 mm. 3D, coronal and sag ittal reformations were obtained. The images were reviewed on a PACS workstation. Automated exposure control was utilized. DLP = 724.1 mGy-cm.CTDiVol = 12.7, 20.0 mGy. One or more of the following post reduction techniques were used: - Automated exposure control. - Adjustment of the mA and/or Kv according to patient's size. - Use of iterative reconstruction technique COMPARISON: CT 08/31/2016 FINDINGS: No pulmonary arterial filling defects to indicate pulmonary embolus are identified. The right ascend ing pulmonary artery terminates just distal to its origin. Heart size is within normal limits. Coronary artery calcifications are identified. The visualized portions of the inferior thyroid appear unremarkable. Mild scattered calcified atherosclerosis is n oted in the arch of the aorta. The thoracic esophagus appears normal. Soft tissue encasement of the right hilum, right mainstem bronchus and brett continues to be identi fied. There is associated narrowing of the distal right mainstem bronchus, right upper lobe bronchus , bronchus intermedius, right middle lobe bronchus and right lower lobe bronchus. Narrowing of the b ronchi appears to have increased when compared with prior exam. Complete consolidation of the right upper and middle lobes and medial consolidation in the right mid dle lobe is unchanged. Focal cavitation measuring 4.3 x 2.4 cm in the right upper lobe is stable. Sm all, loculated appearing right pleural effusion with associated pleural thickening is seen surroundi ng the right lung. Mediastinal shift towards the right is stable. Cholecystectomy clips are noted in the gallbladder fossa. Small amount of ascites is noted adjacent to the spleen. The remainder of the visualized organs of the superior abdomen are unremarkable. Moderate to severe degenerative changes are identified in the spine. The subcutaneous and muscular soft tissues surrounding the chest are unremarkable. IMPRESSION: No visualized pulmonary embolus. Continued soft tissue encasement of the right hilum, right mainstem bronchus and brett with interva l increase in severe narrowing of the distal right mainstem bronchus, right upper lobe bronchus, bro nchus intermedius, right lower lobe bronchus and right middle lobe bronchus. Soft tissue encasement of the right hilum may reflect the patient's known lung malignancy. Unchanged abrupt termination of the right ascending pulmonary artery, likely secondary to soft tissu e encasement. Stable complete consolidation of the right upper and middle lobes, cavitation in the right upper lob e and medial consolidation in the right lower lobe. Loculated appearing small right pleural effusion with continued pleural thickening surrounding the r ight lung. Small amount of ascites adjacent to the spleen. RPTAT: AA .Bassam Maradiaga MD, MD Date Time Electronically viewed and signed by .Bassam Maradiaga MD, MD on 01/31/2017 18:04 .P/
[2017-01-31] MEDS ORDERED: ACETAMINOPHEN 325 MG TAB PO PRN ×2 (19:00→19:30)
[2017-01-31] MEDS ORDERED: ONDANSETRON 4 MG INJ IV PRN (19:00)
[2017-01-31] MEDS ORDERED: LEVALBUTEROL (NEB) 0.63 MG/3 ML AMP HHN PRN (19:30)
[2017-01-31] MEDS: DEXTROSE 5%-0.45% NACL 1,000 ML IV SCH (19:52)
[2017-01-31] MEDS ORDERED: PANTOPRAZOLE 40 MG INJ IV ONE (20:03)
[2017-01-31] MEDS ORDERED: ONDANSETRON 4 MG INJ IV STA (20:12)
[2017-01-31] MEDS ORDERED: HYDROmorphONE 1 MG/ML SYG IV STA (20:12)
[2017-01-31 20:42] VITALS: TEMP 98.4
[2017-01-31 21:12] VITALS: PULSE 88
[2017-01-31 21:15] VITALS: BP 127/85; PULSE 79; RESP 18
[2017-01-31 21:30] VITALS: Ht 172.7 cm; Wt 115.0 kg
[2017-01-31 21:57] VITALS: PULSE 83
[2017-01-31] MEDS ORDERED: morphine (ER) 15 MG TAB PO ONE (23:04)
[2017-01-31] MEDS: morphine (ER) 15 MG TAB PO SCH (23:08)
[2017-01-31] MEDS: METOPROLOL (XL) 50 MG TAB PO SCH (23:08)
[2017-01-31] MEDS: ATORVASTATIN 20 MG TAB PO SCH (23:08)
--- NOTE | 2017-01-31 23:46 | HP ---
Date/Time of Note Date/Time of Note DATE: 01/31/17 TIME: 23:35 Assessment/Plan VTE Prophylaxis VTE Prophylaxis Intervention: LMWH Lines/Catheters IV Catheter Type (from Nrs): Saline Lock Assessment/Plan Chief Complaint/Hosp Course - Shortness of breath - Acute respiratory failure - pulmonary consult- Dr Soares notified. cardiology consult - BIPAP. - Metastatic lung Cancer - per Oncology- Dr Valiente notified - Anemia - Monitor CBC - Hyponatremia - IVF- - will get nephrology consult - Post Hypoxemic respiratory failure IN AUG 2016 , - reaction to CARBO - Severe pneumonia/bronchitis due to enterobacter (09/22/2016-) - Hx Afib - HX Pancytopenia - sp chemo - Monitor CBC - Leukocytosis- possibly sec to post obstructive PNA - will get ID consult - HX Leukopenia - SP chemo - SP Neupogen - HX DVT- sp Lovenox -- History of coronary artery disease. - Chronic obstructive pulmonary disease - HX TOBACCO SMOKING PLAN - admit to tele - IVF - NPO except meds - pain control - Lovenox Dw Dr Lincoln/alfred. at bed side- all Qs answered Problems: HPI/ROS Admit Date/Time Admit Date/Time Jan 31, 2017 at 18:59 ROS HPI 61-year-old male history of metastatic lung CA- uses home o2, on chemotherapy is admitted with c/o shortness of breath. He states worsening shortness of breath over the past 24-48 hours even patient uses home oxygen . He reported shortness of breath being worse when laying flat. No significant fevers or cough. He denies any pleuritic pain. He has had hx DVTs during this course but is not taking any anticoagulants. ROS All systems reviewed and are negative except as per history of present illness. Medications Home Meds Active Scripts Furosemide* (Furosemide*) 20 Mg Tablet, 20 MG PO DAILY for 30 Days, #60 TAB Prov:LUBA EARLY 09/28/16 Esomeprazole Mag Trihydrate (Nexium) 40 Mg Capsule., 40 MG PO DAILY for 30 Days, #30 CAP Prov:LUBA EARLY 09/28/16 Atorvastatin Calcium* (Atorvastatin Calcium*) 20 Mg Tablet, 20 MG PO QHS for 30 Days, #30 TAB Prov:LUBA EARLY 09/28/16 Levothyroxine Sodium* (Levothyroxine Sodium*) 75 Mcg Tablet, 75 MCG PO BEFORE BREAKFAST, #30 TAB Prov:LUBA EARLY 09/28/16 Escitalopram Oxalate* (Escitalopram Oxalate*) 10 Mg Tablet, 10 MG PO DAILY for 30 Days, #30 TAB Prov:LUBA EARLY 09/28/16 Reported Medications Sulfamethoxazole/Trimethoprim* (Bactrim Ds* Tablet) 1 Each Tablet, 1 TAB PO BID , TAB FOR 7 DAYS 01/31/17 Cephalexin* (Cephalexin*) 500 Mg Capsule, 500 MG PO TID, #21 CAP FOR 7DAYS 01/31/17 Aspirin* (Aspirin* EC) 81 Mg Tablet.dr, 81 MG PO Q7D, TAB 01/31/17 Metoprolol Succinate* (Toprol XL*) 50 Mg Tab.er.24h, 50 MG PO BID, #30 TAB 01/31/17 Discontinued Reported Medications Cephalexin* (Cephalexin*) 750 Mg Capsule, 750 MG PO Q8 for 7 Days, #21 CAP 01/31/17 Docusate Sodium* (Doc-Q-Lace*) 100 Mg Capsule, 100 MG PO BID Y for CONSTIPATION , CAP 08/31/16 Sennosides* (Senna Lax*) 8.6 Mg Tablet, 1 TAB PO Q12H Y for CONSTIPATION, TAB 08/31/16 Trazodone Hcl* (Trazodone Hcl*) 50 Mg Tablet, 50 MG PO QHS, #30 TAB 08/31/16 Discontinued Scripts [Promethazine/Codeine Syp] 5 ML SYRUP No Conflict Check, 10 ML PO Q6H Y for COUGH for 30 Days Prov:LUBA EARLY 09/28/16 Morphine Sulfate (Morphine Sulfate ER) 15 Mg Tablet.er, 45 MG PO BID, #30 TAB Prov:LUBA EARLY 09/28/16 Levofloxacin* (Levaquin*) 750 Mg Tablet, 750 MG PO DAILY@06 for 8 Days, TAB Prov:LUBA EARLY 09/28/16 Voriconazole* (Vfend*) 200 Mg Tablet, 100 MG PO BID for 30 Days, TAB Prov:LUBA EARLY 09/28/16 Enoxaparin Sodium (Enoxaparin Sodium) 100 Mg/1 Ml Syringe, 190 MG SC Q24H for 30 Days Prov:LUBA EARLY 09/28/16 Aspirin* (Aspirin* EC) 81 Mg Tablet.dr, 81 MG PO DAILY for 30 Days, TAB Prov:LUBA EARLY 09/28/16 Allergies Allergies: Coded Allergies: No Known Allergy (Unverified , 01/31/17) Constitutional: fatigue Respiratory: shortness of breath Cardiovascular: no complaints Gastrointestinal: no complaints Genitourinary: no complaints Musculoskeletal: no complaints Neurologic: no complaints PMH/Family/Social Past Medical History PMhx/Soc History of Surgery: Yes (right midle finger partial amputation 1985, gallbladder removal 1996, nose ) Anesthesia Reaction: No Hx Neurological Disorder: No Hx Respiratory Disorders: Yes (non small cell ca,sob, pna, intubated) Hx Cardiac Disorders: Yes (paroxismal afib) Hx Psychiatric Problems: No Hx Miscellaneous Medical Probl: Yes (Stage 4 lung CA, CAD, HTN, A-fib, COPD) Hx Alcohol Use: No Hx Substance Use: No Hx Tobacco Use: Yes Smoking Status: Former smoker FmHx Family History: No diabetes PMhx/Soc History of Surgery: Yes (right midle finger partial amputation 1985, gallbladder removal 1996, nose ) Anesthesia Reaction: No Hx Neurological Disorder: No Hx Respiratory Disorders: Yes (non small cell ca,sob, pna, intubated) Hx Cardiac Disorders: Yes (paroxismal afib) Hx Psychiatric Problems: No Hx Miscellaneous Medical Probl: Yes (Stage 4 lung CA, CAD, HTN, A-fib, COPD) Hx Alcohol Use: No Hx Substance Use: No Hx Tobacco Use: Yes Smoking Status: Former smoker FmHx Family History: No diabetes Social History Smoking Status: Former smoker Exam/Review of Systems Vital Signs Vitals Vital Signs Date Time Temp Pulse Resp B/P Pulse Ox O2 Delivery O2 Flow Rate FiO2 01/31/17 21:57 83 99 30 01/31/17 20:42 98.4 18 107/85 BIPAP 01/31/17 15:42 2 Exam Constitutional: alert, frail, well developed Psych: anxiety, nl mood/affect Respiratory: diminished breath sounds, other (on BIPAP) Cardiovascular: nl pulses, regular rate and rhythm Gastrointestinal: non-tender, soft Musculoskeletal: nl extremities to inspection Extremities: normal pulses Neurological: nl mental status, nl speech Labs Result Diagram: 01/31/17 1540 01/31/17 1540 Medications Medications Current Medications Aspirin (Halfprin) 81 mg Q7D PO ; Start 01/31/17 at 19:30; Status UNV Atorvastatin Calcium (Lipitor) 20 mg QHS PO Last administered on 01/31/17 23:08 ; Admin Dose 20 MG; Start 01/31/17 at 21:00 Escitalopram Oxalate (Lexapro) 10 mg DAILY PO ; Start 02/01/17 at 09:00 Furosemide (Lasix) 20 mg DAILY PO ; Start 02/01/17 at 09:00 Metoprolol Succinate (Toprol Xl) 50 mg BID PO Last administered on 01/31/17 23: 08; Admin Dose 50 MG; Start 01/31/17 at 21:00 Ondansetron HCl (Zofran Inj) 4 mg Q6 PRN IV NAUSEA; Start 01/31/17 at 19:30 Enoxaparin Sodium (Lovenox) 30 mg DAILY SC ; Start 02/01/17 at 09:00 Pantoprazole 40 mg 40 mg DAILY@06 IV ; Start 02/01/17 at 09:00 Dextrose/Sodium Chloride (D5-1/2ns) 1,000 ml @ 75 mls/hr [id number] IV Last administered on 01/31/17 19:52; Admin Dose 75 MLS/HR; Start 01/31/17 at 19:30 Morphine Sulfate (Ms Contin (Er)) 15 mg BID PO Last administered on 01/31/17 23 :08; Admin Dose 15 MG; Start 01/31/17 at 23:00 Morphine Sulfate (morphine) 4 mg Q4H PRN IV SEVERE PAIN LEVEL 7-10; Start at 23:00 Procedures Procedures Chest x-ray: Mediastinum: No enlargement Cardiac silhouette: No cardiomegaly Airspace: Complete whiteout of the right hemithorax bones: No evidence of fracture 12-lead EKG. Rhythm: Normal sinus rhythm Ectopy: None Intervals: No abnormalities ST segments: No elevations or depressions T waves: No contiguous inversions CTPA: IMPRESSION: No visualized pulmonary embolus. Continued soft tissue encasement of the right hilum, right mainstem bronchus and brett with interval increase in severe narrowing of the distal right mainstem bronchus, right upper lobe bronchus, bronchus intermedius, right lower lobe bronchus and right middle lobe bronchus. Soft tissue encasement of the right hilum may reflect the patient's known lung malignancy. Unchanged abrupt termination of the right ascending pulmonary artery, likely secondary to soft tissue encasement. Stable complete consolidation of the right upper and middle lobes, cavitation in the right upper lobe and medial consolidation in the right lower lobe. Loculated appearing small right pleural effusion with continued pleural thickening surrounding the right lung. Small amount of ascites adjacent to the spleen. LAB INTERPRETATION: Leukocytosis likely secondary to stress response or malignancy, normal lactic acid and troponin. Indeterminate BMP Hyponatremia TRAMAINE ELLSWORTH Jan 31, 2017 23:46 shows no evidence of pulmonary embolism however shows extensive soft tissue constriction of the patient's pulmonary parenchyma. This is likely the etiology of the patient's shortness of breath. It does not appear that thoracentesis will be beneficial given no significant pleural effusion. This appears to be related to progression of disease process and malignancy. I do not believe the diuretics or further interventions are necessary. The patient may benefit from pulmonary consultation I am not sure if bronchoscopy or pulmonary stenting would be reasonable. Certainly progression of conversation for goals of care and potential for hospice or palliative care consultation would be reasonable. This can be directed by his oncologist. I spoke to Dr. Scanlon we discussed the case and CT imaging. She verbalized understanding and will follow the case. I kept the patient and/or family informed of laboratory and diagnostic imaging results throughout the emergency room course. DISPOSITION PLAN: Intensive care unit for respiratory failure CONSULTATION: Accepting care team and consultations: I discussed the current laboratory data, diagnostic imaging and emergency care provided. Admitting team: Dr. Lincoln, prior admissions under this provider Admitting team indication: Insurance directed Consulting services: Dr. Clark, hematology oncology Critical Care Note: Total time: 46 minutes Indication/Organ System Threat: Acute respiratory failure I spent the above amount of critical care time with the patient, not including billable procedures. This included chart review, consultations, repeat bedside evaluations, and titration of appropriate medications to prevent cardiopulmonary or respiratory collapse. TRAMAINE ELLSWORTH Jan 31, 2017 23:46
[2017-01-31 23:49] LABS: CREATINE KINASE 34 IU/L (23-200)
[2017-02-01] VITALS (16 sets, daily range): BP systolic 96–133; BP diastolic 60–81; PULSE 77–94; RESP 16–20
[2017-02-01 00:09] LABS: CK-MB 0.67 ng/ml (0.0-2.4); TROPONIN-I < 0.012 ng/ml (0.00-0.12)
--- NOTE | 2017-02-01 00:44 | CONS ---
Date/Time of Note Date/Time of Note DATE: 01/31/17 TIME: 20:40 VK LE Assessment/Plan Assessment/Plan Chief Complaint/Hosp Course metastatic lung CANCER, NSCLC - ON CHEMO WITH ? RELATIVELY STABLE DIS WILL D/W PULM AND RADIOLOGIST CHEMO ON HOLD DURING HOSPITALIZATION HX PANCYTOPENIA POST CHEMO MONITOR BLOOD COUNT CLOSELY LEUKOCYTOSIS PROB 2 TO POST OBSTRUCTIVE PNA HX LEUKOPENIA- POST CHEMO POST NEUPOGEN IN THE PAST POST Hypoxemic respiratory failure IN AUG 2016 , reaction to CARBO severe pneumonia/bronchitis due to enterobacter (09/22/2016-) HX DVT TREATED WITH LOVENOX PT SELF- DC 2 TO HEMOPTYSIS OUTPT History of coronary artery disease. Chronic obstructive pulmonary disease HX TOBACCO SMOKING Problems: Consultation Date/Type/Reason Admit Date/Time Jan 31, 2017 at 18:59 Date of Consultation: Jan 31, 2017 Type of Consultation: [facility] Reason for Consultation LUNG CANCER Referring Provider: MARYAM FARMER MD Hx of Present Illness 61-year-old male history of metastatic lung CA on chemotherapy who presents the emergency room with shortness of breath. He states worsening shortness of breath over the past 24-48 hours. The patient does use home oxygen but this is worsening. He states the shortness of breath is worse when laying flat. No significant fevers or cough. He denies any pleuritic pain. He has had DVTs during this course but is not taking any anticoagulants. ROS All systems reviewed and are negative except as per history of present illness. Medications Home Meds Active Scripts Furosemide* (Furosemide*) 20 Mg Tablet, 20 MG PO DAILY for 30 Days, #60 TAB Prov:LUBA EARLY 09/28/16 Esomeprazole Mag Trihydrate (Nexium) 40 Mg Capsule.dr, 40 MG PO DAILY for 30 Days, #30 CAP Prov:LUBA EARLY 09/28/16 Atorvastatin Calcium* (Atorvastatin Calcium*) 20 Mg Tablet, 20 MG PO QHS for 30 Days, #30 TAB Prov:LUBA EARLY 09/28/16 Levothyroxine Sodium* (Levothyroxine Sodium*) 75 Mcg Tablet, 75 MCG PO BEFORE BREAKFAST, #30 TAB Prov:LUBA EARLY 09/28/16 Escitalopram Oxalate* (Escitalopram Oxalate*) 10 Mg Tablet, 10 MG PO DAILY for 30 Days, #30 TAB Prov:LUBA EARLY 09/28/16 Reported Medications Sulfamethoxazole/Trimethoprim* (Bactrim Ds* Tablet) 1 Each Tablet, 1 TAB PO BID , TAB FOR 7 DAYS 01/31/17 Cephalexin* (Cephalexin*) 500 Mg Capsule, 500 MG PO TID, #21 CAP FOR 7DAYS 01/31/17 Aspirin* (Aspirin* EC) 81 Mg Tablet.dr, 81 MG PO Q7D, TAB 01/31/17 Metoprolol Succinate* (Toprol XL*) 50 Mg Tab.er.24h, 50 MG PO BID, #30 TAB 01/31/17 Discontinued Reported Medications Cephalexin* (Cephalexin*) 750 Mg Capsule, 750 MG PO Q8 for 7 Days, #21 CAP 01/31/17 Docusate Sodium* (Doc-Q-Lace*) 100 Mg Capsule, 100 MG PO BID Y for CONSTIPATION , CAP 08/31/16 Sennosides* (Senna Lax*) 8.6 Mg Tablet, 1 TAB PO Q12H Y for CONSTIPATION, TAB 08/31/16 Trazodone Hcl* (Trazodone Hcl*) 50 Mg Tablet, 50 MG PO QHS, #30 TAB 08/31/16 Discontinued Scripts [Promethazine/Codeine Syp] 5 ML SYRUP No Conflict Check, 10 ML PO Q6H Y for COUGH for 30 Days Prov:LUBA EARLY 09/28/16 Morphine Sulfate (Morphine Sulfate ER) 15 Mg Tablet.er, 45 MG PO BID, #30 TAB Prov:LUBA EARLY 09/28/16 Levofloxacin* (Levaquin*) 750 Mg Tablet, 750 MG PO DAILY@06 for 8 Days, TAB Prov:LUBA EARLY 09/28/16 Voriconazole* (Vfend*) 200 Mg Tablet, 100 MG PO BID for 30 Days, TAB Prov:LUBA EARLY 09/28/16 Enoxaparin Sodium (Enoxaparin Sodium) 100 Mg/1 Ml Syringe, 190 MG SC Q24H for 30 Days Prov:LUBA EARLY 09/28/16 Aspirin* (Aspirin* EC) 81 Mg Tablet.dr, 81 MG PO DAILY for 30 Days, TAB Prov:LUBA EARLY 09/28/16 Allergies Allergies: Coded Allergies: No Known Allergy (Unverified , 01/31/17) PMhx/Soc History of Surgery: Yes (right midle finger partial amputation 1985, gallbladder removal 1996, nose ) Anesthesia Reaction: No Hx Neurological Disorder: No Hx Respiratory Disorders: Yes (non small cell ca,sob, pna, intubated) Hx Cardiac Disorders: Yes (paroxismal afib) Hx Psychiatric Problems: No Hx Miscellaneous Medical Probl: Yes (Stage 4 lung CA, CAD, HTN, A-fib, COPD) Hx Alcohol Use: No Hx Substance Use: No Hx Tobacco Use: Yes Smoking Status: Former smoker FmHx Family History: No diabetes Social History Smoking Status: Former smoker Exam/Review of Systems Vital Signs Vitals Vital Signs Date Time Temp Pulse Resp B/P Pulse Ox O2 Delivery O2 Flow Rate FiO2 02/01/17 00:25 97.5 80 18 96/63 97 02/01/17 00:15 30 01/31/17 20:42 BIPAP 01/31/17 15:42 2 Exam General: Well developed, well nourished, slight increased work of breathing improved when sitting up Head: Normocephalic, atraumatic Eyes: Pupils equally reactive, EOM intact ENT: Moist mucous membranes Neck: Supple, no lymphadenopathy Respiratory: Rhonchi at the bases bilaterally, muffled breath sounds in the right lung cunha cardiovascular: RRR, no murmurs, rubs, or gallops Abdominal: Soft, non-tender, non-distended, no peritoneal signs : Deferred MSK: No edema, no unilateral swelling, 5/5 strength Neurologic: Alert and oriented, moving all extremities, normal speech, no focal weakness, no cerebellar signs Skin: No rash Psych: Normal mood Results Result Diagram: 01/31/17 1540 01/31/17 1540 Results 24 hrs Laboratory Tests Test 01/31/17 15:40 01/31/17 20:39 01/31/17 22:49 White Blood Count 16.5 #H Red Blood Count 3.05 L Hemoglobin 9.9 L Hematocrit 31.4 L Mean Corpuscular Volume 103.0 H Mean Corpuscular Hemoglobin 32.5 Mean Corpuscular Hemoglobin Concent 31.5 L Red Cell Distribution Width 15.3 H Platelet Count 130 #L Mean Platelet Volume 11.2 H Neutrophils % 88.5 H Lymphocytes % 4.9 L Monocytes % 5.0 Eosinophils % 0.0 Basophils % 0.2 Nucleated Red Blood Cells % 0.2 H Neutrophils # (Manual) 14.6 H Lymphocytes # 0.8 Monocytes # 0.8 Eosinophils # 0.0 Basophils # 0.0 Nucleated Red Blood Cells # 0.0 Prothrombin Time 14.0 Prothrombin Time Ratio 1.1 INR International Normalized Ratio 1.08 Activated Partial Thromboplast Time 34.4 Sodium Level 137 Potassium Level 4.2 Chloride Level 99 Carbon Dioxide Level 33 H Anion Gap 9 Blood Urea Nitrogen 18 Creatinine 1.18 Glucose Level 110 Lactic Acid Level 1.5 0.9 0.9 Calcium Level 8.4 Total Bilirubin 0.1 L Direct Bilirubin 0.00 Indirect Bilirubin 0.1 Aspartate Amino Transf (AST/SGOT) 30 Alanine Aminotransferase (ALT/SGPT) 26 Alkaline Phosphatase 103 Troponin I < 0.012 < 0.012 B-Type Natriuretic Peptide 1370 H Total Protein 5.6 L Albumin 3.0 L Globulin 2.60 Albumin/Globulin Ratio 1.15 Creatine Kinase 34 Creatine Kinase Index 2.0 Creatinine Kinase MB (Mass) 0.67 Medications Medications Current Medications Aspirin (Halfprin) 81 mg Q7D PO ; Start 01/31/17 at 19:30; Status UNV Atorvastatin Calcium (Lipitor) 20 mg QHS PO Last administered on 01/31/17 23:08 ; Admin Dose 20 MG; Start 01/31/17 at 21:00 Escitalopram Oxalate (Lexapro) 10 mg DAILY PO ; Start 02/01/17 at 09:00 Furosemide (Lasix) 20 mg DAILY PO ; Start 02/01/17 at 09:00 Metoprolol Succinate (Toprol Xl) 50 mg BID PO Last administered on 01/31/17 23: 08; Admin Dose 50 MG; Start 01/31/17 at 21:00 Ondansetron HCl (Zofran Inj) 4 mg Q6 PRN IV NAUSEA; Start 01/31/17 at 19:30 Enoxaparin Sodium (Lovenox) 30 mg DAILY SC ; Start 02/01/17 at 09:00 Pantoprazole 40 mg 40 mg DAILY@06 IV ; Start 02/01/17 at 09:00 Dextrose/Sodium Chloride (D5-1/2ns) 1,000 ml @ 75 mls/hr [id number] IV Last administered on 01/31/17 19:52; Admin Dose 75 MLS/HR; Start 01/31/17 at 19:30 Morphine Sulfate (Ms Contin (Er)) 15 mg BID PO Last administered on 01/31/17 23 :08; Admin Dose 15 MG; Start 01/31/17 at 23:00 Morphine Sulfate (morphine) 4 mg Q4H PRN IV SEVERE PAIN LEVEL 7-10; Start at 23:00 Procedures Procedures [place] [address] Radiology Main Line: [phone] DIAGNOSTIC IMAGING REPORT Patient: ELKIN JIMENEZ : 1955 Age: 61 Sex: M MR #: [id number] DOS: 01/31/17 1520 Ordering MD: LARISA ABREU MD Location: E/R Room/Bed: PROCEDURE: CTA Chest with IV contrast. CLINICAL INDICATION: Chest pain and shortness of breath. TECHNIQUE: The study was performed utilizing a multidetector CT scanner. Direct spiral axial sections were obtained from the thoracic inlet through the upper abdomen before and after the injection of 125 cc Omnipaque 350 intravenous contrast material and reformatted at 1.25 mm. 3D, coronal and sagittal reformations were obtained. The images were reviewed on a PACS workstation. Automated exposure control was utilized. DLP = 724.1 mGy- cm.CTDiVol = 12.7, 20.0 mGy. One or more of the following post reduction techniques were used: - Automated exposure control. - Adjustment of the mA and/or Kv according to patient's size. - Use of iterative reconstruction technique COMPARISON: CT 08/31/2016 FINDINGS: No pulmonary arterial filling defects to indicate pulmonary embolus are identified. The right ascending pulmonary artery terminates just distal to its origin. Heart size is within normal limits. Coronary artery calcifications are identified. The visualized portions of the inferior thyroid appear unremarkable. Mild scattered calcified atherosclerosis is noted in the arch of the aorta. The thoracic esophagus appears normal. Soft tissue encasement of the right hilum, right mainstem bronchus and brett continues to be identified. There is associated narrowing of the distal right mainstem bronchus, right upper lobe bronchus, bronchus intermedius, right middle lobe bronchus and right lower lobe bronchus. Narrowing of the bronchi appears to have increased when compared with prior exam. Complete consolidation of the right upper and middle lobes and medial consolidation in the right middle lobe is unchanged. Focal cavitation measuring 4.3 x 2.4 cm in the right upper lobe is stable. Small, loculated appearing right pleural effusion with associated pleural thickening is seen surrounding the right lung. Mediastinal shift towards the right is stable. Cholecystectomy clips are noted in the gallbladder fossa. Small amount of ascites is noted adjacent to the spleen. The remainder of the visualized organs of the superior abdomen are unremarkable. Moderate to severe degenerative changes are identified in the spine. The subcutaneous and muscular soft tissues surrounding the chest are unremarkable. IMPRESSION: No visualized pulmonary embolus. Continued soft tissue encasement of the right hilum, right mainstem bronchus and brett with interval increase in severe narrowing of the distal right mainstem bronchus, right upper lobe bronchus, bronchus intermedius, right lower lobe bronchus and right middle lobe bronchus. Soft tissue encasement of the right hilum may reflect the patient's known lung malignancy. Unchanged abrupt termination of the right ascending pulmonary artery, likely secondary to soft tissue encasement. Stable complete consolidation of the right upper and middle lobes, cavitation in the right upper lobe and medial consolidation in the right lower lobe. Loculated appearing small right pleural effusion with continued pleural thickening surrounding the right lung. Small amount of ascites adjacent to the spleen. RPTAT: AA .Bassam Maradiaga MD, MD Date Time Electronically viewed and signed by .Bassam Maradiaga MD, MD on 01/31/2017 18:04 .P/ CC: LARISA ABREU MD KLEYNBERG, VERA M MD Feb 01, 2017 00:44
[2017-02-01] MEDS ORDERED: VANCOMYCIN IV PER PHARMACY XX SCH (04:00)
[2017-02-01] MEDS ORDERED: VANCOMYCIN 2 GM in SOD CHLORIDE 0.9% 500 ML IVPB ONE (05:00)
[2017-02-01] MEDS: morphine 4 MG/ML VIAL IV PRN (06:25)
[2017-02-01] MEDS: LEVOTHYROXINE 75 MCG TAB PO SCH (06:34)
[2017-02-01 07:51] LABS: BASOPHILS % 0.2 % (0.0-2.0); EOSINOPHILS % 0.1 % (0.0-7.0); HEMATOCRIT 28.3 % (42.0-52.0); HEMOGLOBIN 8.9 g/dl (14.0-18.0); LYMPHOCYTES # 0.9 10^3/ul (0.8-2.9); LYMPHOCYTES % 4.9 % (15.0-51.0); MEAN CORPUSCULAR HEMOGLOBIN 32.4 pg (29.0-33.0); MEAN CORPUSCULAR HGB CONC 31.4 g/dl (32.0-37.0); MEAN CORPUSCULAR VOLUME 102.9 fl (82.0-101.0); MEAN PLATELET VOLUME 11.5 fl (7.4-10.4); MONOCYTE # 1.1 10^3/ul (0.3-0.9); MONOCYTES % 6.3 % (0.0-11.0); NEUTROPHILS % 86.9 % (39.0-77.0); NUCLEATED RED BLOOD CELLS% 0.1 /100WBC (0.0-0.0); PLATELET COUNT 127 10^3/UL (140-415); RED BLOOD COUNT 2.75 10^6/ul (4.70-6.10); RED CELL DISTRIBUTION WIDTH 15.5 % (11.5-14.5); WHITE BLOOD COUNT 17.3 10^3/ul (4.8-10.8)
[2017-02-01 08:15] LABS: CALCIUM 8.3 mg/dl (8.4-10.2); CREATININE 1.02 mg/dl (0.61-1.24); POTASSIUM 3.8 mmol/L (3.5-5.1)
[2017-02-01] MEDS ORDERED: PANTOPRAZOLE 40 MG INJ IV SCH (09:00)
[2017-02-01] MEDS: METOPROLOL (XL) 50 MG TAB PO SCH ×3 (09:00→21:52)
[2017-02-01] MEDS: FUROSEMIDE 20 MG TAB PO SCH (09:00)
[2017-02-01] MEDS: ASPIRIN (EC) 81 MG TAB PO SCH (09:45)
[2017-02-01] MEDS: ESCITALOPRAM 10 MG TAB PO SCH (09:45)
[2017-02-01] MEDS: morphine (ER) 15 MG TAB PO SCH ×2 (09:46→21:51)
[2017-02-01] MEDS: ENOXAPARIN 30 MG/0.3 ML SYG SC SCH (09:57)
[2017-02-01] MEDS ORDERED: NITROGLYCERIN (SL) 0.4 MG TAB SL PRN (11:30)
--- NOTE | 2017-02-01 11:53 | CONS ---
DATE OF ADMISSION: 01/31/2017 DATE OF CONSULTATION: 02/01/2017 REASON FOR CONSULTATION: Shortness of breath, assess for congestive heart failure, as well as chest pain, assess for acute coronary syndrome. HISTORY OF PRESENT ILLNESS: Mr. Garcia is a 61-year-old male with a history of hypertension, dyslipidemia, lung CA, undergoing chemotherapy at this time, prior cardiac arrhythmia, preserved EF by echo September 2016, upper extremity DVT, hemoptysis, who presented with worsening shortness of breath and associated left-sided substernal chest pain described as stabbing to pressure-like sensation occurring at rest. Upon arrival in the emergency department, temperature 98.4, blood pressure 136/87, pulse 88, respiratory 32, satting 98 percent. Patient's labs: White count of 16.5, hemoglobin 9.9, platelet count of 130. Sodium 137, potassium 4.2, creatinine 1.1, BUN 18. Troponin negative. INR of 1.0. The patient underwent a CT/CTA revealing no pulmonary embolus, soft tissue encasement of the right hilum, right mainstem bronchus and brett with interval increase and severe narrowing in the distal right mainstem bronchus, unchanged abrupt termination of the right descending pulmonary artery, stable complete consolidation of the right upper and middle lobes, loculated-appearing small right pleural effusion. The patient initially underwent a chest x-ray, revealing near complete whiteout of the right hemothorax with mediastinal shift to the right suggesting near complete collapse. The patient's electrocardiogram revealed sinus rhythm at a rate of [address] and T-wave abnormalities diffusely. The patient subsequently admitted to the floor where he has been initiated on broad-spectrum antibiotics, gentle Lasix diuresis and baseline beta blockers have been held due to bradycardia. The patient continues to have shortness of breath and complains of left-sided substernal chest pain. PAST MEDICAL HISTORY: As above in HPI. MEDICATION: Currently in the hospital: 1. Vancomycin. 2. Aspirin 81 mg daily. 3. Lexapro. 4. Lasix 20 mg daily. 5. Lovenox 30 mg subcu daily. 6. Protonix 40 mg IV daily. 7. Synthroid 75 mcg daily. 8. Vancomycin. 9. Morphine sulfate 50 mg p.o. b.i.d. 10. Atorvastatin 20 mg at bedtime. 11. Metoprolol succinate 50 mg p.o. b.i.d. 12. Xopenex p.r.n. 13. IV fluid hydration. 14. D5 40 cc an hour. 15. Tylenol p.r.n. ALLERGIES: NO KNOWN DRUG ALLERGIES. SOCIAL HISTORY: No current tobacco, ETOH, illicit drug use. FAMILY HISTORY: No history of sudden cardiac or early CAD. REVIEW OF SYSTEMS: As above in HPI. CONSTITUTIONAL: No current fevers. RESPIRATORY: Positive shortness of breath. Lung cancer. GASTROINTESTINAL: No vomiting. GENITOURINARY: No hematuria. MUSCULOSKELETAL: Degenerative joint disease. PSYCH: The patient has depression. NEUROLOGIC: No documented CVA. ENDOCRINE: No documented diabetes mellitus. PHYSICAL EXAMINATION: VITAL SIGNS: Temperature of 98.3, blood pressure 105/63, pulse 84, respiratory rate 20, satting 98 percent. GENERAL: The patient is alert, awake, complaining of chest pain, shortness of breath. NECK: JVP approximately 9 cm water. CHEST: Upper airway transmitted diffuse rhonchorous sounds. Decreased breath sounds at the bases bilaterally. HEART: Regular rate and rhythm. Normal S1, increased S2. 1/6 systolic murmur. Nondisplaced PMI. ABDOMEN: Positive bowel sounds. Soft. EXTREMITIES: Trace edema, lower extremities bilaterally. 1+ pulses bilateral posterior tibial. LABORATORY: As above in HPI with sodium 137, potassium 4.2, creatinine 1.1. AST 30, ALT 26. Troponin negative. BNP of 1370. White blood cell count 17.3, hemoglobin 8.9, platelet count of 127. INR of 1.0. IMAGING STUDIES: As above in HPI. No further imaging studies are reviewed at this time. ELECTROCARDIOGRAM: As above in HPI. No further electrocardiograms are reviewed at this time. IMPRESSION: 1. Chest pain. Assess for acute coronary syndrome in a patient with lung cancer, undergoing chemotherapy, likely secondary to lung cancer. 2. Abnormal electrocardiogram with nonspecific ST and T-wave abnormalities, assess for acute coronary syndrome. 3. Bradycardia, transient while on beta matthew. 4. Hypertension, under reasonable control. 5. Shortness of breath. Rule out congestive heart failure. 6. Lung cancer with ongoing chemotherapy. 7. Leukocytosis. 8. Anemia. 9. Thrombocytopenia. RECOMMENDATIONS: 1. At this time, would maintain patient on telemetry monitoring to follow rhythm and rate control closely. 2. Would complete the patient's rule out for myocardial infarction to ensure the patient's chest pain was not due to acute coronary syndrome, acute myocardial infarction. 3. Check a TSH to ensure subclinical hyperthyroidism is not contributing to any bouts of bradycardia. 4. Decrease the patient's dose of beta-matthew to allow patient to better tolerate. 5. Continue patient's gentle Lasix diuresis following strict I's and O's closely. 6. Ongoing evaluation of patient's lung cancer by Oncology and pending pulmonary consult for possible lung clamps and need for bronchoscopy. Thank you for allowing me to take part in the care of this patient. I will continue to follow along very closely with you. Further recommendations will be made as the patient progresses though his inpatient hospital course. Dictated By: John Gaytan MD /chele/awilda /Document#: [id number] CC: Kiet Lincoln MD;*EndCC* MTDD
[2017-02-01] MEDS: DEXTROSE 5%-0.45% NACL 1,000 ML IV SCH (12:46)
--- NOTE | 2017-02-01 12:59 | PN ---
Date/Time of Note Date/Time of Note DATE: 02/01/17 TIME: 12:45 Assessment/Plan VTE Prophylaxis VTE Prophylaxis Intervention: LMWH Lines/Catheters IV [facility] Peripheral IV Assessment/Plan Chief Complaint/Hosp Course - Problems: Assessment/Plan - Shortness of breath - Acute respiratory failure - pulmonary follows - cardiology follows - BIPAP. - Metastatic lung Cancer - per Oncology- Dr Valiente - BLE trace edma - will do Doppler r/o DVT - Anemia - Monitor CBC - Hyponatremia - IVF- - nephrology follows - Post Hypoxemic respiratory failure IN AUG 2016 , - reaction to CARBO - Severe pneumonia/bronchitis due to enterobacter (09/22/2016-) - Hx Afib - HX Pancytopenia - sp chemo - Monitor CBC - Leukocytosis- possibly sec to post obstructive PNA - will get ID consult - HX Leukopenia - SP chemo - SP Neupogen - HX DVT- sp Lovenox -- History of coronary artery disease. - Chronic obstructive pulmonary disease - HX TOBACCO SMOKING Subjective 24 Hr Interval Summary Constitutional: requiring IVF, requiring O2 Respiratory: no complaints Cardiovascular: no complaints Gastrointestinal: no complaints Genitourinary: no complaints Musculoskeletal: no complaints Exam/Review of Systems Vital Signs Vitals Vital Signs Date Time Temp Pulse Resp B/P Pulse Ox O2 Delivery O2 Flow Rate FiO2 02/01/17 12:24 81 02/01/17 11:48 98.1 20 125/71 97 02/01/17 05:10 3.0 02/01/17 02:55 30 01/31/17 21:15 Mask Intake and Output 01/31/17 01/31/17 02/01/17 15:00 23:00 07:00 Intake Total 700 ml Output Total 400 ml Balance 300 ml Exam Constitutional: alert, obese, oriented, well developed Respiratory: diminished breath sounds Cardiovascular: other (hx afib) Gastrointestinal: non-tender, soft Musculoskeletal: swelling Extremities: edema Neurological: other Results Result Diagram: 02/01/1772102/01/17721 Results 24 hrs Laboratory Tests Test 01/31/17 15:40 01/31/17 20:39 01/31/17 22:49 02/01/17 07:22 White Blood Count 16.5 #H 17.3 H Red Blood Count 3.05 L 2.75 L Hemoglobin 9.9 L 8.9 L Hematocrit 31.4 L 28.3 L Mean Corpuscular Volume 103.0 H 102.9 H Mean Corpuscular Hemoglobin 32.5 32.4 Mean Corpuscular Hemoglobin Concent 31.5 L 31.4 L Red Cell Distribution Width 15.3 H 15.5 H Platelet Count 130 #L 127 L Mean Platelet Volume 11.2 H 11.5 H Neutrophils % 88.5 H 86.9 H Lymphocytes % 4.9 L 4.9 L Monocytes % 5.0 6.3 Eosinophils % 0.0 0.1 Basophils % 0.2 0.2 Nucleated Red Blood Cells % 0.2 H 0.1 H Neutrophils # (Manual) 14.6 H 15.0 H Lymphocytes # 0.8 0.9 Monocytes # 0.8 1.1 H Eosinophils # 0.0 0.0 Basophils # 0.0 0.0 Nucleated Red Blood Cells # 0.0 0.0 Prothrombin Time 14.0 Prothrombin Time Ratio 1.1 INR International Normalized Ratio 1.08 Activated Partial Thromboplast Time 34.4 Sodium Level 137 136 Potassium Level 4.2 3.8 Chloride Level 99 98 Carbon Dioxide Level 33 H 34 H Anion Gap 9 8 Blood Urea Nitrogen 18 15 Creatinine 1.18 1.02 Glucose Level 110 81 Lactic Acid Level 1.5 0.9 0.9 Calcium Level 8.4 8.3 L Total Bilirubin 0.1 L Direct Bilirubin 0.00 Indirect Bilirubin 0.1 Aspartate Amino Transf (AST/SGOT) 30 Alanine Aminotransferase (ALT/SGPT) 26 Alkaline Phosphatase 103 Troponin I < 0.012 < 0.012 B-Type Natriuretic Peptide 1370 H Total Protein 5.6 L Albumin 3.0 L Globulin 2.60 Albumin/Globulin Ratio 1.15 Creatine Kinase 34 Creatine Kinase Index 2.0 Creatinine Kinase MB (Mass) 0.67 Medications Medications Current Medications Aspirin (Halfprin) 81 mg Q7D PO Last administered on 02/01/17 09:45; Admin Dose 81 MG; Start 02/01/17 at 09:00 Atorvastatin Calcium (Lipitor) 20 mg QHS PO Last administered on 01/31/17 23:08 ; Admin Dose 20 MG; Start 01/31/17 at 21:00 Escitalopram Oxalate (Lexapro) 10 mg DAILY PO Last administered on 02/01/17 09: 45; Admin Dose 10 MG; Start 02/01/17 at 09:00 Furosemide (Lasix) 20 mg DAILY PO Last administered on 02/01/17 09:00; Admin Dose 20 MG; Start 02/01/17 at 09:00 Ondansetron HCl (Zofran Inj) 4 mg Q6 PRN IV NAUSEA; Start 01/31/17 at 19:30 Enoxaparin Sodium (Lovenox) 30 mg DAILY SC Last administered on 02/01/17 09:57 ; Admin Dose 30 MG; Start 02/01/17 at 09:00 Pantoprazole 40 mg 40 mg DAILY@06 IV Last administered on 02/01/17 09:00; Admin Dose 40 MG; Start 02/01/17 at 09:00 Dextrose/Sodium Chloride (D5-1/2ns) 1,000 ml @ 40 mls/hr Q24H IV Last administered on 01/31/17 19:52; Admin Dose 75 MLS/HR; Start 01/31/17 at 19:30 Morphine Sulfate (Ms Contin (Er)) 15 mg BID PO Last administered on 02/01/17 09 :46; Admin Dose 15 MG; Start 01/31/17 at 23:00 Morphine Sulfate (morphine) 4 mg Q4H PRN IV SEVERE PAIN LEVEL 7-10 Last administered on 02/01/17 06:25; Admin Dose 4 MG; Start 01/31/17 at 23:00 Metoprolol Succinate (Toprol Xl) 25 mg BID PO ; Start 02/01/17 at 12:00 Nitroglycerin 1 tab 1 tab Q5M PRN SL ANGINA; Start 02/01/17 at 11:30 Vancomycin HCl/ Sodium Chloride (Vancocin/NS) 250 ml @ 83.333 mls/ hr Q12H IVPB ; Start 02/01/17 at 18:00 Miscellaneous Information (*Rx Drug Level Order Reminder*) VANCO TROUGH @ 1, 700 ON... ONCE ONCE XX ; Start 02/02/17 at 17:00; Stop 02/02/17 at 17:01 TRAMAINE ELLSWORTH Feb 01, 2017 12:57
--- NOTE | 2017-02-01 13:37 | RADRPT ---
PROCEDURE: US Lower extremity Venous. CLINICAL INDICATION: Bilateral lower extremity edema TECHNIQUE: Multiple sonographic images of the bilateral lower extremity deep venous system was obt ained utilizing grayscale, color-flow, compressive sonography and doppler imaging with augmentation. The images were reviewed on a PACS workstation. COMPARISON: 09/24/16 FINDINGS: There is normal compressibility and flow within the bilateral common femoral, femoral , posterior ti bial and popliteal veins. RPTAT: AA IMPRESSION: No sonographic evidence for deep venous thrombosis. .Maury Mitchell MD, MD Date Time Electronically viewed and signed by .Maury Mitchell MD, on 02/01/2017 13:36 .S/
[2017-02-01] MEDS ORDERED: VANCOMYCIN 1.5 GM in SOD CHLORIDE 0.9% 250 ML IVPB SCH (17:00)
[2017-02-01] MEDS: VANCOMYCIN 1.25 GM in SOD CHLORIDE 0.9% 250 ML IVPB SCH (18:06)
--- NOTE | 2017-02-01 21:24 | CONS ---
Date/Time of Note Date/Time of Note DATE: 02/01/17 TIME: 21:24 Assessment/Plan Assessment/Plan Chief Complaint/Hosp Course metastatic lung CANCER, NSCLC - ON CHEMO WITH ? RELATIVELY STABLE DIS WILL D/W PULM AND RADIOLOGIST CHEMO ON HOLD DURING HOSPITALIZATION HX PANCYTOPENIA POST CHEMO MONITOR BLOOD COUNT CLOSELY LEUKOCYTOSIS PROB 2 TO POST OBSTRUCTIVE PNA HX LEUKOPENIA- POST CHEMO POST NEUPOGEN IN THE PAST POST Hypoxemic respiratory failure IN AUG 2016 , reaction to CARBO severe pneumonia/bronchitis due to enterobacter (09/22/2016-) HX DVT TREATED WITH LOVENOX PT SELF- DC 2 TO HEMOPTYSIS OUTPT History of coronary artery disease. Chronic obstructive pulmonary disease HX TOBACCO SMOKING Problems: Consultation Date/Type/Reason Admit Date/Time Jan 31, 2017 at 18:59 Initial Consult Date 01/31/17 Type of Consultation: HEMEON Referring Provider: MARYAM FARMER MD 24 HR Interval Summary Free Text/Dictation ALL NOTED LETHARGIC Exam/Review of Systems Vital Signs Vitals Vital Signs Date Time Temp Pulse Resp B/P Pulse Ox O2 Delivery O2 Flow Rate FiO2 02/01/17 20:29 94 02/01/17 19:54 97.7 16 104/74 94 02/01/17 05:10 3.0 02/01/17 02:55 30 01/31/17 21:15 Mask Intake and Output 01/31/17 01/31/17 02/01/17 15:00 23:00 07:00 Intake Total 700 ml Output Total 400 ml Balance 300 ml Exam GENERAL: The patient is alert, awake, complaining of chest pain, shortness of breath. NECK: JVP approximately 9 cm water. CHEST: Upper airway transmitted diffuse rhonchorous sounds. Decreased breath sounds at the bases bilaterally. HEART: Regular rate and rhythm. Normal S1, increased S2. 1/6 systolic murmur. Nondisplaced PMI. ABDOMEN: Positive bowel sounds. Soft. EXTREMITIES: Trace edema, lower extremities bilaterally. 1+ pulses bilateral posterior tibial. Results Result Diagram: 02/01/1772102/01/17 07 Results 24 hrs Laboratory Tests Test 01/31/17 22:49 02/01/17 07:22 02/01/17 13:44 02/01/17 19:15 Lactic Acid Level 0.9 Creatine Kinase 34 Creatine Kinase Index 2.0 Creatinine Kinase MB (Mass) 0.67 Troponin I < 0.012 < 0.012 < 0.012 White Blood Count 17.3 H Red Blood Count 2.75 L Hemoglobin 8.9 L Hematocrit 28.3 L Mean Corpuscular Volume 102.9 H Mean Corpuscular Hemoglobin 32.4 Mean Corpuscular Hemoglobin Concent 31.4 L Red Cell Distribution Width 15.5 H Platelet Count 127 L Mean Platelet Volume 11.5 H Neutrophils % 86.9 H Lymphocytes % 4.9 L Monocytes % 6.3 Eosinophils % 0.1 Basophils % 0.2 Nucleated Red Blood Cells % 0.1 H Neutrophils # (Manual) 15.0 H Lymphocytes # 0.9 Monocytes # 1.1 H Eosinophils # 0.0 Basophils # 0.0 Nucleated Red Blood Cells # 0.0 Sodium Level 136 Potassium Level 3.8 Chloride Level 98 Carbon Dioxide Level 34 H Anion Gap 8 Blood Urea Nitrogen 15 Creatinine 1.02 Glucose Level 81 Calcium Level 8.3 L Thyroid Stimulating Hormone (TSH) 6.910 H Medications Medications Current Medications Aspirin (Halfprin) 81 mg Q7D PO Last administered on 02/01/17 09:45; Admin Dose 81 MG; Start 02/01/17 at 09:00 Atorvastatin Calcium (Lipitor) 20 mg QHS PO Last administered on 01/31/17 23:08 ; Admin Dose 20 MG; Start 01/31/17 at 21:00 Escitalopram Oxalate (Lexapro) 10 mg DAILY PO Last administered on 02/01/17 09: 45; Admin Dose 10 MG; Start 02/01/17 at 09:00 Furosemide (Lasix) 20 mg DAILY PO Last administered on 02/01/17 09:00; Admin Dose 20 MG; Start 02/01/17 at 09:00 Ondansetron HCl (Zofran Inj) 4 mg Q6 PRN IV NAUSEA; Start 01/31/17 at 19:30 Enoxaparin Sodium 30 mg 30 mg DAILY SC Last administered on 02/01/17 09:57; Admin Dose 30 MG; Start 02/01/17 at 09:00 Dextrose/Sodium Chloride (D5-1/2ns) 1,000 ml @ 40 mls/hr Q24H IV Last administered on 02/01/17 12:46; Admin Dose 40 MLS/HR; Start 01/31/17 at 19:30 Morphine Sulfate (Ms Contin (Er)) 15 mg BID PO Last administered on 02/01/17 09 :46; Admin Dose 15 MG; Start 01/31/17 at 23:00 Morphine Sulfate (morphine) 4 mg Q4H PRN IV SEVERE PAIN LEVEL 7-10 Last administered on 02/01/17 06:25; Admin Dose 4 MG; Start 01/31/17 at 23:00 Metoprolol Succinate (Toprol Xl) 25 mg BID PO Last administered on 02/01/17 12: 46; Admin Dose 25 MG; Start 02/01/17 at 12:00 Nitroglycerin 1 tab 1 tab Q5M PRN SL ANGINA; Start 02/01/17 at 11:30 Vancomycin HCl/ Sodium Chloride (Vancocin/NS) 250 ml @ 83.333 mls/ hr Q12H IVPB Last administered on 02/01/17 18:06; Admin Dose 83.333 MLS/HR; Start at 18:00 Miscellaneous Information (*Rx Drug Level Order Reminder*) VANCO TROUGH @ 1, 700 ON... ONCE ONCE XX ; Start 02/02/17 at 17:00; Stop 02/02/17 at 17:01 Pantoprazole 40 mg 40 mg DAILY@06 PO ; Start 02/02/17 at 06:00 Cefepime HCl (Maxipime 2gm/50 ml (Pmx)) 50 ml @ 100 mls/hr Q12 IVPB ; Start 02/01/17 at 21:00 Voriconazole (Vfend) 200 mg BID PO ; Start 02/01/17 at 21:00 Levofloxacin (Levaquin) 500 mg DAILY PO ; Start 02/01/17 at 21:30; Status DAHIANA OG MD Feb 01, 2017 21:24
--- NOTE | 2017-02-01 21:35 | CONS ---
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 Aspergillus antibody was >1:64 but aspergillus antigen in serum by EIA was negative during his last admission. - h/o DVT of RUE - b/l knee pain due to DJD - h/o post-obstructive pneumonia - h/o HTN, CAD, hyperlipidemia - h/o paroxysmal A fib - h/o DVT in LUE - h/o hypothyroidism with elevated TSH level - HIV negative in 2013 recommendations: - pending results: blood cultures - I recommend and have ordered: wound culture of L 2nd finger, influenza screen , sputum culture, pneumocystis antigen DFA, cocci serology, mycoplasma serology , legionella antigen, urinalysis and urine culture - I recommend: IV vancomycin, cefepime and levofloxacin - continue voriconazole for chronic suppression of aspergillus given his immunocompromised state - management d/w Pt and his RN Problems: Consultation Date/Type/Reason Admit Date/Time Jan 31, 2017 at 18:59 Date of Consultation: Feb 01, 2017 Type of Consultation: ID Reason for Consultation HCAP Referring Provider: TRAMAINE ELLSWORTH of Present Illness This is a 61 yo male with h/o advanced non-small lung CA who is receiving IV chemotherapy as outpatient. Pt has been admitted here and at [facility] between 2015 and 2016. 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 The diagnosis was made based on cultures, biopsy could not be done. Pt has been on long-term voriconazole from the beginning of 04/2016 through the beginning of this month. Pt was admitted here in 08/2016 in sepsis due to HCAP/ post-obstructive pneumonia. Aspergillus antibody was >1:64 but aspergillus antigen in serum by EIA was negative during that admission. Pt received broad spectrum antibiotics plus voriconazole. Pt was eventually discharged in 2016. He continued taking outpatient chemotherapy and O2 supplement at 2L. At the beginning of this month, he stopped voriconazole because medical did not approve it. Recently, Pt developed wound of L 2nd finger nail. He denied purulence or pain. I instructed him to start taking cephalexin and Bactrim 2 days ago; yesterday, however, he felt progressively weak and dyspneic and came to ER. At ER, he had leukocytosis, and chest CT showed soft tissue encasement of hilum and bronchi, chronic consolidation and RUL cavity. at present, he c/o dyspnea, cough, sputum production and wound of L 2nd finger as above. ELIAZAR Higginbotham requested ID consultation on this Pt. 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) Social History Alcohol Use: none Smoking Status: Former smoker Exam/Review of Systems Vital Signs Vitals Vital Signs Date Time Temp Pulse Resp B/P Pulse Ox O2 Delivery O2 Flow Rate FiO2 02/01/17 20:29 94 02/01/17 19:54 97.7 16 104/74 94 02/01/17 05:10 3.0 02/01/17 02:55 30 01/31/17 21:15 Mask Intake and Output 01/31/17 01/31/17 02/01/17 15:00 23:00 07:00 Intake Total 700 ml Output Total 400 ml Balance 300 ml Exam Constitutional: distress, frail, obese Psych: nl mood/affect, no complaints Head: atraumatic, normocephalic, other (alopecia) Eyes: nl conjunctiva, nl lids ENMT: nl external ears & nose, nl nasal mucosa & septum Neck: supple Respiratory: crackles/rales, labored breathing, wheezing Cardiovascular: nl pulses, regular rate and rhythm Gastrointestinal: non-tender, soft Musculoskeletal: nl extremities to inspection Extremities: edema (trace edema of b/l LEs) Neurological: lethargic Skin: other (wound of L 2nd finger tip, no purulence but erythematous. Non- TTP. Nail changes due to chemotherapy) Results Result Diagram: 02/01/1772102/01/17721 Results 24 hrs Laboratory Tests Test 01/31/17 22:49 02/01/17 07:22 02/01/17 13:44 02/01/17 19:15 Lactic Acid Level 0.9 Creatine Kinase 34 Creatine Kinase Index 2.0 Creatinine Kinase MB (Mass) 0.67 Troponin I < 0.012 < 0.012 < 0.012 White Blood Count 17.3 H Red Blood Count 2.75 L Hemoglobin 8.9 L Hematocrit 28.3 L Mean Corpuscular Volume 102.9 H Mean Corpuscular Hemoglobin 32.4 Mean Corpuscular Hemoglobin Concent 31.4 L Red Cell Distribution Width 15.5 H Platelet Count 127 L Mean Platelet Volume 11.5 H Neutrophils % 86.9 H Lymphocytes % 4.9 L Monocytes % 6.3 Eosinophils % 0.1 Basophils % 0.2 Nucleated Red Blood Cells % 0.1 H Neutrophils # (Manual) 15.0 H Lymphocytes # 0.9 Monocytes # 1.1 H Eosinophils # 0.0 Basophils # 0.0 Nucleated Red Blood Cells # 0.0 Sodium Level 136 Potassium Level 3.8 Chloride Level 98 Carbon Dioxide Level 34 H Anion Gap 8 Blood Urea Nitrogen 15 Creatinine 1.02 Glucose Level 81 Calcium Level 8.3 L Thyroid Stimulating Hormone (TSH) 6.910 H Medications Medications Current Medications Aspirin (Halfprin) 81 mg Q7D PO Last administered on 02/01/17 09:45; Admin Dose 81 MG; Start 02/01/17 at 09:00 Atorvastatin Calcium (Lipitor) 20 mg QHS PO Last administered on 01/31/17 23:08 ; Admin Dose 20 MG; Start 01/31/17 at 21:00 Escitalopram Oxalate (Lexapro) 10 mg DAILY PO Last administered on 02/01/17 09: 45; Admin Dose 10 MG; Start 02/01/17 at 09:00 Furosemide (Lasix) 20 mg DAILY PO Last administered on 02/01/17 09:00; Admin Dose 20 MG; Start 02/01/17 at 09:00 Ondansetron HCl (Zofran Inj) 4 mg Q6 PRN IV NAUSEA; Start 01/31/17 at 19:30 Enoxaparin Sodium 30 mg 30 mg DAILY SC Last administered on 02/01/17 09:57; Admin Dose 30 MG; Start 02/01/17 at 09:00 Dextrose/Sodium Chloride (D5-1/2ns) 1,000 ml @ 40 mls/hr Q24H IV Last administered on 02/01/17 12:46; Admin Dose 40 MLS/HR; Start 01/31/17 at 19:30 Morphine Sulfate (Ms Contin (Er)) 15 mg BID PO Last administered on 02/01/17 09 :46; Admin Dose 15 MG; Start 01/31/17 at 23:00 Morphine Sulfate (morphine) 4 mg Q4H PRN IV SEVERE PAIN LEVEL 7-10 Last administered on 02/01/17 06:25; Admin Dose 4 MG; Start 01/31/17 at 23:00 Metoprolol Succinate (Toprol Xl) 25 mg BID PO Last administered on 02/01/17 12: 46; Admin Dose 25 MG; Start 02/01/17 at 12:00 Nitroglycerin 1 tab 1 tab Q5M PRN SL ANGINA; Start 02/01/17 at 11:30 Vancomycin HCl/ Sodium Chloride (Vancocin/NS) 250 ml @ 83.333 mls/ hr Q12H IVPB Last administered on 02/01/17 18:06; Admin Dose 83.333 MLS/HR; Start at 18:00 Miscellaneous Information (*Rx Drug Level Order Reminder*) VANCO TROUGH @ 1, 700 ON... ONCE ONCE XX ; Start 02/02/17 at 17:00; Stop 02/02/17 at 17:01 Pantoprazole 40 mg 40 mg DAILY@06 PO ; Start 02/02/17 at 06:00 Cefepime HCl (Maxipime 2gm/50 ml (Pmx)) 50 ml @ 100 mls/hr Q12 IVPB ; Start 02/01/17 at 21:00 Voriconazole (Vfend) 200 mg BID PO ; Start 02/01/17 at 21:00 Levofloxacin (Levaquin) 500 mg DAILY PO ; Start 02/01/17 at 21:30; Status LUKE MARIE M.D. Feb 01, 2017 21:29
[2017-02-01] MEDS: ATORVASTATIN 20 MG TAB PO SCH (21:52)
[2017-02-01] MEDS: VORICONAZOLE 200 MG TAB PO SCH (21:52)
[2017-02-01] MEDS: CEFEPIME 2GM/50 ML (PMX) 50 ML IVPB SCH (21:56)
[2017-02-01] MEDS: LEVOFLOXACIN 500 MG TAB PO SCH (22:48)
[2017-02-02] VITALS (16 sets, daily range): BP systolic 88–111; BP diastolic 56–66; PULSE 76–102; RESP 18–20
[2017-02-02] MEDS: DEXTROSE 5%-0.45% NACL 1,000 ML IV SCH ×3 (02:34→15:54)
[2017-02-02] MEDS: LEVOFLOXACIN 500 MG TAB PO SCH (06:04)
[2017-02-02] MEDS: VANCOMYCIN 1.25 GM in SOD CHLORIDE 0.9% 250 ML IVPB SCH (06:05)
[2017-02-02] MEDS: LEVOTHYROXINE 75 MCG TAB PO SCH (06:08)
[2017-02-02] MEDS: PANTOPRAZOLE (EC) 40 MG TAB PO SCH (06:08)
[2017-02-02 08:02] LABS: BASOPHIL # 0.1 10^3/ul (0.0-0.1); BASOPHILS % 0.3 % (0.0-2.0); EOSINOPHILS % 0.1 % (0.0-7.0); HEMATOCRIT 30.8 % (42.0-52.0); HEMOGLOBIN 9.6 g/dl (14.0-18.0); LYMPHOCYTES # 1.1 10^3/ul (0.8-2.9); LYMPHOCYTES % 6.3 % (15.0-51.0); MEAN CORPUSCULAR HEMOGLOBIN 32.7 pg (29.0-33.0); MEAN CORPUSCULAR HGB CONC 31.2 g/dl (32.0-37.0); MEAN CORPUSCULAR VOLUME 104.8 fl (82.0-101.0); MEAN PLATELET VOLUME 11.7 fl (7.4-10.4); MONOCYTE # 1.2 10^3/ul (0.3-0.9); MONOCYTES % 6.4 % (0.0-11.0); NEUTROPHILS % 85.5 % (39.0-77.0); NUCLEATED RED BLOOD CELLS% 0.2 /100WBC (0.0-0.0); PLATELET COUNT 151 10^3/UL (140-415); RED BLOOD COUNT 2.94 10^6/ul (4.70-6.10); RED CELL DISTRIBUTION WIDTH 15.3 % (11.5-14.5)
[2017-02-02 08:27] LABS: CALCIUM 8.3 mg/dl (8.4-10.2); CREATININE 1.79 mg/dl (0.61-1.24); POTASSIUM 4.5 mmol/L (3.5-5.1)
[2017-02-02 08:28] LABS: CHOL/HDL RATIO 3.3 RATIO
[2017-02-02] MEDS: METOPROLOL (XL) 50 MG TAB PO SCH ×2 (09:00→21:02)
[2017-02-02] MEDS: FUROSEMIDE 20 MG TAB PO SCH (09:07)
[2017-02-02] MEDS: ESCITALOPRAM 10 MG TAB PO SCH (09:07)
[2017-02-02] MEDS: morphine (ER) 15 MG TAB PO SCH ×2 (09:07→21:00)
[2017-02-02] MEDS: VORICONAZOLE 200 MG TAB PO SCH ×2 (09:07→21:02)
[2017-02-02] MEDS: CEFEPIME 2GM/50 ML (PMX) 50 ML IVPB SCH (09:08)
[2017-02-02] MEDS: ENOXAPARIN 30 MG/0.3 ML SYG SC SCH (09:17)
--- NOTE | 2017-02-02 13:55 | CONS ---
Date/Time of Note Date/Time of Note DATE: 02/02/17 TIME: 13:54 Assessment/Plan Assessment/Plan Chief Complaint/Hosp Course metastatic lung CANCER, NSCLC - ON CHEMO WITH RELATIVELY STABLE DIS D/W PULM AND RADIOLOGIST CHEMO ON HOLD DURING HOSPITALIZATION HX PANCYTOPENIA POST CHEMO MONITOR BLOOD COUNT CLOSELY LEUKOCYTOSIS PROB 2 TO POST OBSTRUCTIVE PNA HX LEUKOPENIA- POST CHEMO POST NEUPOGEN IN THE PAST POST Hypoxemic respiratory failure IN AUG 2016 , reaction to CARBO severe pneumonia/bronchitis due to enterobacter (09/22/2016-) HX DVT TREATED WITH LOVENOX PT SELF- DC 2 TO HEMOPTYSIS OUTPT History of coronary artery disease. Chronic obstructive pulmonary disease HX TOBACCO SMOKING Problems: Consultation Date/Type/Reason Admit Date/Time Jan 31, 2017 at 18:59 Initial Consult Date 01/31/17 Type of Consultation: [facility] Referring Provider: TRAMAINE ELLSWORTH 24 HR Interval Summary Free Text/Dictation ALL NOTED VERY WEAK Exam/Review of Systems Vital Signs Vitals Vital Signs Date Time Temp Pulse Resp B/P Pulse Ox O2 Delivery O2 Flow Rate FiO2 02/02/17 13:08 86 02/02/17 11:40 18 95/62 95 Nasal Cannula 5.0 02/02/17 11:20 98.7 02/02/17 04:12 30 Intake and Output 02/01/17 02/01/17 02/02/17 15:00 23:00 07:00 Intake Total 920 ml 250 ml Output Total 500 ml 300 ml Balance 420 ml -50 ml Exam GENERAL: The patient is alert, awake, complaining of chest pain, shortness of breath. NECK: JVP approximately 9 cm water. CHEST: Upper airway transmitted diffuse rhonchorous sounds. Decreased breath sounds at the bases bilaterally. HEART: Regular rate and rhythm. Normal S1, increased S2. 1/6 systolic murmur. Nondisplaced PMI. ABDOMEN: Positive bowel sounds. Soft. EXTREMITIES: Trace edema, lower extremities bilaterally. 1+ pulses bilateral posterior tibial. Results Result Diagram: 02/02/17 0702/02/17704 Results 24 hrs Laboratory Tests Test 02/01/17 19:15 02/02/17 00:53 02/02/17 07:05 Troponin I < 0.012 < 0.012 White Blood Count 18.0 H Red Blood Count 2.94 L Hemoglobin 9.6 L Hematocrit 30.8 L Mean Corpuscular Volume 104.8 H Mean Corpuscular Hemoglobin 32.7 Mean Corpuscular Hemoglobin Concent 31.2 L Red Cell Distribution Width 15.3 H Platelet Count 151 Mean Platelet Volume 11.7 H Neutrophils % 85.5 H Lymphocytes % 6.3 L Monocytes % 6.4 Eosinophils % 0.1 Basophils % 0.3 Nucleated Red Blood Cells % 0.2 H Neutrophils # (Manual) 15.4 H Lymphocytes # 1.1 Monocytes # 1.2 H Eosinophils # 0.0 Basophils # 0.1 Nucleated Red Blood Cells # 0.0 Sodium Level 134 L Potassium Level 4.5 Chloride Level 97 Carbon Dioxide Level 31 Anion Gap 11 Blood Urea Nitrogen 18 Creatinine 1.79 H Glucose Level 93 Calcium Level 8.3 L Triglycerides Level 116 Cholesterol Level 57 L LDL Cholesterol, Calculated 17 HDL Cholesterol 17 L Cholesterol/HDL Ratio 3.3 Medications Medications Current Medications Aspirin (Halfprin) 81 mg Q7D PO Last administered on 02/01/17 09:45; Admin Dose 81 MG; Start 02/01/17 at 09:00 Atorvastatin Calcium (Lipitor) 20 mg QHS PO Last administered on 02/01/17 21:52 ; Admin Dose 20 MG; Start 01/31/17 at 21:00 Escitalopram Oxalate (Lexapro) 10 mg DAILY PO Last administered on 02/02/17 09: 07; Admin Dose 10 MG; Start 02/01/17 at 09:00 Furosemide (Lasix) 20 mg DAILY PO Last administered on 02/02/17 09:07; Admin Dose 20 MG; Start 02/01/17 at 09:00 Ondansetron HCl (Zofran Inj) 4 mg Q6 PRN IV NAUSEA; Start 01/31/17 at 19:30 Enoxaparin Sodium 30 mg 30 mg DAILY SC Last administered on 02/02/17 09:17; Admin Dose 30 MG; Start 02/01/17 at 09:00 Dextrose/Sodium Chloride (D5-1/2ns) 1,000 ml @ 40 mls/hr Q24H IV Last administered on 02/01/17 12:46; Admin Dose 40 MLS/HR; Start 01/31/17 at 19:30 Morphine Sulfate (Ms Contin (Er)) 15 mg BID PO Last administered on 02/02/17 09 :07; Admin Dose 15 MG; Start 01/31/17 at 23:00 Morphine Sulfate (morphine) 4 mg Q4H PRN IV SEVERE PAIN LEVEL 7-10 Last administered on 02/01/17 06:25; Admin Dose 4 MG; Start 01/31/17 at 23:00 Metoprolol Succinate (Toprol Xl) 25 mg BID PO Last administered on 02/01/17 21: 52; Admin Dose 25 MG; Start 02/01/17 at 12:00 Nitroglycerin 1 tab 1 tab Q5M PRN SL ANGINA; Start 02/01/17 at 11:30 Vancomycin HCl/ Sodium Chloride (Vancocin/NS) 250 ml @ 83.333 mls/ hr Q12H IVPB Last administered on 02/02/17 06:05; Admin Dose 83.333 MLS/HR; Start at 18:00 Miscellaneous Information (*Rx Drug Level Order Reminder*) VANCO TROUGH @ 1, 700 ON... ONCE ONCE XX ; Start 02/02/17 at 17:00; Stop 02/02/17 at 17:01 Pantoprazole (Protonix Tab) 40 mg DAILY@06 PO Last administered on 02/02/17 06: 08; Admin Dose 40 MG; Start 02/02/17 at 06:00 Voriconazole (Vfend) 200 mg BID PO Last administered on 02/02/17 09:07; Admin Dose 200 MG; Start 02/01/17 at 21:00 Levofloxacin 500 mg 500 mg DAILY@06 PO Last administered on 02/02/17 06:04; Admin Dose 500 MG; Start 02/01/17 at 21:30 Cefepime HCl (Maxipime 2gm/50 ml (Pmx)) 50 ml @ 100 mls/hr Q24H IVPB ; Start at 09:00 DAHIANA BABCOCK MD Feb 02, 2017 13:55
--- NOTE | 2017-02-02 15:28 | RADRPT ---
Vent Rate: 85 bpm RR Interval: 0 msec TX Interval: 190 msec QRS Duration: 74 msec QT Interval: 362 msec QTC Interval: 430 msec P-R-T [place]: 31 - 10 - 51 degrees Normal sinus rhythm Normal ECG Electronically Signed By: John Gaytan [id number]
[2017-02-02] MEDS ORDERED: LACTULOSE 30ML CUP PO PRN (16:00)
--- NOTE | 2017-02-02 16:13 | CONS ---
Date/Time of Note Date/Time of Note DATE: 02/02/17 TIME: 16:07 Assessment/Plan Assessment/Plan Chief Complaint/Hosp Course IMPRESSION: 1. Chest pain. Assess for acute coronary syndrome in a patient with lung cancer, undergoing chemotherapy, likely secondary to lung cancer.-negative trop x3 2. Abnormal electrocardiogram with nonspecific ST and T-wave abnormalities, assess for acute coronary syndrome. 3. Bradycardia, transient while on beta matthew. 4. Hypotension-today 5. Shortness of breath. Rule out congestive heart failure. 6. Lung cancer with ongoing chemotherapy. 7. Leukocytosis. 8. Anemia. 9. Thrombocytopenia. Recc: -Tel -Continue asa as tolerated -Hold lasix/BB given hypotension -Continue abx;'s and f/u cx data -F/U BP closely -Continue statin Problems: Consultation Date/Type/Reason Admit Date/Time Jan 31, 2017 at 18:59 Initial Consult Date 02/01/17 Type of Consultation: cardiology Reason for Consultation chest pain/hypotension Referring Provider: TRAMAINE ELLSWORTH Exam/Review of Systems Vital Signs Vitals Vital Signs Date Time Temp Pulse Resp B/P Pulse Ox O2 Delivery O2 Flow Rate FiO2 02/02/17 15:35 98.6 92 20 96/66 96 02/02/17 11:40 Nasal Cannula 5.0 02/02/17 04:12 30 Intake and Output 02/01/17 02/01/17 02/02/17 15:00 23:00 07:00 Intake Total 920 ml 250 ml Output Total 500 ml 300 ml Balance 420 ml -50 ml Exam Review of Systems: CONSTITUTIONAL: No fevers, chills. PULMONARY: No sob CARDIOVASCULAR: No chest pain/palpitations GASTROINTESTINAL: No nausea/vomiting. GENITOURINARY: No hematuria/dysuria. MUSCULOSKELETAL: No myagias/arthalgias. PSYCHIATRIC: The patient denies depression. NEUROLOGIC: lathargic Constitutional: alert, oriented Psych: no complaints Head: normocephalic ENMT: mucosa pink and moist Neck: jvd (8 cm water), supple Respiratory: diminished breath sounds (@bases/b) Cardiovascular: regular rate and rhythm Gastrointestinal: soft Musculoskeletal: muscle tone (normal) Extremities: other (rue swelling) Results Result Diagram: 02/02/17 0702/02/17 07 Results 24 hrs Laboratory Tests Test 02/01/17 19:15 9/8/17 00:53 02/02/17 07:05 Troponin I < 0.012 < 0.012 White Blood Count 18.0 H Red Blood Count 2.94 L Hemoglobin 9.6 L Hematocrit 30.8 L Mean Corpuscular Volume 104.8 H Mean Corpuscular Hemoglobin 32.7 Mean Corpuscular Hemoglobin Concent 31.2 L Red Cell Distribution Width 15.3 H Platelet Count 151 Mean Platelet Volume 11.7 H Neutrophils % 85.5 H Lymphocytes % 6.3 L Monocytes % 6.4 Eosinophils % 0.1 Basophils % 0.3 Nucleated Red Blood Cells % 0.2 H Neutrophils # (Manual) 15.4 H Lymphocytes # 1.1 Monocytes # 1.2 H Eosinophils # 0.0 Basophils # 0.1 Nucleated Red Blood Cells # 0.0 Sodium Level 134 L Potassium Level 4.5 Chloride Level 97 Carbon Dioxide Level 31 Anion Gap 11 Blood Urea Nitrogen 18 Creatinine 1.79 H Glucose Level 93 Calcium Level 8.3 L Triglycerides Level 116 Cholesterol Level 57 L LDL Cholesterol, Calculated 17 HDL Cholesterol 17 L Cholesterol/HDL Ratio 3.3 Medications Medications Current Medications Aspirin (Halfprin) 81 mg Q7D PO Last administered on 02/01/17 09:45; Admin Dose 81 MG; Start 02/01/17 at 09:00 Atorvastatin Calcium (Lipitor) 20 mg QHS PO Last administered on 02/01/17 21:52 ; Admin Dose 20 MG; Start 01/31/17 at 21:00 Escitalopram Oxalate (Lexapro) 10 mg DAILY PO Last administered on 02/02/17 09: 07; Admin Dose 10 MG; Start 02/01/17 at 09:00 Furosemide (Lasix) 20 mg DAILY PO Last administered on 02/02/17 09:07; Admin Dose 20 MG; Start 02/01/17 at 09:00 Ondansetron HCl (Zofran Inj) 4 mg Q6 PRN IV NAUSEA; Start 01/31/17 at 19:30 Enoxaparin Sodium 30 mg 30 mg DAILY SC Last administered on 02/02/17 09:17; Admin Dose 30 MG; Start 02/01/17 at 09:00 Dextrose/Sodium Chloride (D5-1/2ns) 1,000 ml @ 40 mls/hr Q24H IV Last administered on 02/01/17 12:46; Admin Dose 40 MLS/HR; Start 01/31/17 at 19:30 Morphine Sulfate (Ms Contin (Er)) 15 mg BID PO Last administered on 02/02/17 09 :07; Admin Dose 15 MG; Start 01/31/17 at 23:00 Morphine Sulfate (morphine) 4 mg Q4H PRN IV SEVERE PAIN LEVEL 7-10 Last administered on 02/01/17 06:25; Admin Dose 4 MG; Start 01/31/17 at 23:00 Metoprolol Succinate (Toprol Xl) 25 mg BID PO Last administered on 02/01/17 21: 52; Admin Dose 25 MG; Start 02/01/17 at 12:00 Nitroglycerin 1 tab 1 tab Q5M PRN SL ANGINA; Start 02/01/17 at 11:30 Vancomycin HCl/ Sodium Chloride (Vancocin/NS) 250 ml @ 83.333 mls/ hr Q12H IVPB Last administered on 02/02/17 06:05; Admin Dose 83.333 MLS/HR; Start at 18:00 Miscellaneous Information (*Rx Drug Level Order Reminder*) VANCO TROUGH @ 1, 700 ON... ONCE ONCE XX ; Start 02/02/17 at 17:00; Stop 02/02/17 at 17:01 Pantoprazole (Protonix Tab) 40 mg DAILY@06 PO Last administered on 02/02/17 06: 08; Admin Dose 40 MG; Start 02/02/17 at 06:00 Voriconazole (Vfend) 200 mg BID PO Last administered on 02/02/17 09:07; Admin Dose 200 MG; Start 02/01/17 at 21:00 Levofloxacin 500 mg 500 mg DAILY@06 PO Last administered on 02/02/17 06:04; Admin Dose 500 MG; Start 02/01/17 at 21:30 Cefepime HCl (Maxipime 2gm/50 ml (Pmx)) 50 ml @ 100 mls/hr Q24H IVPB ; Start at 09:00 Senna (Senokot) 1 tab DAILY PRN PO CONSTIPATION; Start 02/02/17 at 16:00 Lactulose (Enulose) 20 gm DAILY PRN PO CONSTIPATION; Start 02/02/17 at 16:00 MARIAA ÁLVAREZ Feb 02, 2017 16:13
[2017-02-02] MEDS: SENNA TAB PO PRN (16:14)
[2017-02-02] MEDS ORDERED: SOD CHLORIDE 0.9% 500 ML IV ONE (16:30)
--- NOTE | 2017-02-02 17:20 | RADRPT ---
PROCEDURE: Ultrasound of the right upper extremity venous system. CLINICAL INDICATION: Right arm edema.. TECHNIQUE: Manzo scale with and without compression, color doppler, spectral doppler of the venous system of the bilateral upper extremity was performed. Venous augmentation maneuvers were utilized. COMPARISON: No prior studies are available for comparison. FINDINGS: RIGHT: Jugular vein: Patent and compressible. Subclavian vein: Acute appearing nonocclusive thrombus' Axillary vein: Patent and compressible. Brachial vein: Patent and compressible. Basilic vein: Patent and compressible. Cephalic vein: Patent and compressible. Soft tissues:Normal IMPRESSION: 1. Acute appearing nonocclusive deep venous thrombosis in the right subclavian vein. Note: A call report was made to Eunice ARREDONDO on 02/02/2017 5:18:03 PM. RPTAT: [facility] Physician Sherry Date Time Electronically viewed and signed by Physician Sherry on 02/02/2017 17:20 /
--- NOTE | 2017-02-02 17:22 | RADRPT ---
PROCEDURE: US bilateral upper extremity arterial system. CLINICAL INDICATION: Bilateral upper extremity pain and swelling. TECHNIQUE: Multiple longitudinal and transverse images of the bilateral upper extremity arterial t ree was obtained with grant scale pulsed Doppler, and color Doppler imaging. COMPARISON: None available FINDINGS: The bilateral subclavian artery, axillary artery, brachial artery, radial artery, and ulnar artery a re all normal. There is no thrombus or occlusion. There is no significant stenosis. There is normal triphasic flow throughout bilaterally. Peak systolic velocities are as follows: Right: Subclavian: 38 cm/sec Axillary: 29 cm/sec Brachial: 50 cm/sec Radial: 40 cm/sec Ulnar: 48 cm/sec Left: Subclavian: 49 cm/sec Axillary: 42 cm/sec Brachial: 55 cm/sec Radial: 32 cm/sec Ulnar: 78 cm/sec IMPRESSION: 1. Normal bilateral upper extremity arterial system. RPTAT: QQ .Los Stringer MD, MD Date Time Electronically viewed and signed by .Los Stringer MD, MD on 02/02/2017 17:21 .R/
[2017-02-02 17:57] LABS: ADD UMIC YES; UR ASCORBIC ACID NEGATIVE (NEGATIVE); UR BILIRUBIN (Dip) NEGATIVE (NEGATIVE); UR BLOOD (Dip) NEGATIVE (NEGATIVE); UR CLARITY CLOUDY (CLEAR); UR COLOR AMBER (YELLOW); UR GLUCOSE (Dip) NEGATIVE (NEGATIVE); UR KETONES (Dip) TRACE mg/dL (NEGATIVE); UR LEUKOCYTE ESTERASE (Dip) NEGATIVE Leu/ul (NEGATIVE); UR MUCUS FEW /HPF (NONE SEEN); UR NITRITE (Dip) NEGATIVE (NEGATIVE); UR RBC 1 /HPF (0-5); UR SQUAMOUS EPITHELIAL CELL FEW /HPF (FEW); UR TOTAL PROTEIN (Dip) NEGATIVE (NEGATIVE); UR UROBILINOGEN (Dip) NEGATIVE (NEGATIVE)
--- NOTE | 2017-02-02 20:39 | CONS ---
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 Aspergillus antibody was >1:64 but aspergillus antigen in serum by EIA was negative during his last admission. 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 Fraga Problems: Consultation Date/Type/Reason Admit Date/Time Jan 31, 2017 at 18:59 Initial Consult Date 02/01/17 Type of Consultation: Infectious Disease Referring Provider: TRAMAINE ELLSWORTH 24 HR Interval Summary Free Text/Dictation C/o chronic generalized pain and SOB. Exam/Review of Systems Vital Signs Vitals Vital Signs Date Time Temp Pulse Resp B/P Pulse Ox O2 Delivery O2 Flow Rate FiO2 02/02/17 20:17 98.5 102 19 111/61 96 02/02/17 19:44 3.0 02/02/17 11:40 Nasal Cannula 02/02/17 04:12 30 Intake and Output 02/01/17 02/01/17 02/02/17 15:00 23:00 07:00 Intake Total 920 ml 250 ml Output Total 500 ml 300 ml Balance 420 ml -50 ml Exam Constitutional: alert, obese, oriented, well developed Psych: nl mood/affect Head: atraumatic, normocephalic, other (alopecia) Eyes: nl conjunctiva, nl lids, nl sclera ENMT: nl external ears & nose Neck: supple Respiratory: crackles/rales, diminished breath sounds, No wheezing Cardiovascular: nl pulses, regular rate and rhythm Gastrointestinal: non-tender, soft Musculoskeletal: nl extremities to inspection Extremities: edema (trace) Neurological: nl mental status, other (generalized weakness) Skin: nl turgor, other (missing nail of L 2nd finger tip with erythema but no purulence) Results Result Diagram: 02/02/1770402/02/17 0705 Results 24 hrs Laboratory Tests Test 02/02/17 00:53 02/02/17 07:05 02/02/17 15:10 02/02/17 17:12 Troponin I < 0.012 White Blood Count 18.0 H Red Blood Count 2.94 L Hemoglobin 9.6 L Hematocrit 30.8 L Mean Corpuscular Volume 104.8 H Mean Corpuscular Hemoglobin 32.7 Mean Corpuscular Hemoglobin Concent 31.2 L Red Cell Distribution Width 15.3 H Platelet Count 151 Mean Platelet Volume 11.7 H Neutrophils % 85.5 H Lymphocytes % 6.3 L Monocytes % 6.4 Eosinophils % 0.1 Basophils % 0.3 Nucleated Red Blood Cells % 0.2 H Neutrophils # (Manual) 15.4 H Lymphocytes # 1.1 Monocytes # 1.2 H Eosinophils # 0.0 Basophils # 0.1 Nucleated Red Blood Cells # 0.0 Sodium Level 134 L Potassium Level 4.5 Chloride Level 97 Carbon Dioxide Level 31 Anion Gap 11 Blood Urea Nitrogen 18 Creatinine 1.79 H Glucose Level 93 Calcium Level 8.3 L Triglycerides Level 116 Cholesterol Level 57 L LDL Cholesterol, Calculated 17 HDL Cholesterol 17 L Cholesterol/HDL Ratio 3.3 Urine Color HANNA Urine Clarity CLOUDY A Urine pH 5.0 Urine Specific [place] 1.030 Urine Ketones TRACE A Urine Nitrite NEGATIVE Urine Bilirubin NEGATIVE Urine Urobilinogen NEGATIVE Urine Leukocyte Esterase NEGATIVE Urine Microscopic RBC 1 Urine Microscopic WBC 2 Urine Squamous Epithelial Cells FEW Urine Mucus FEW A Urine Hemoglobin NEGATIVE Urine Glucose NEGATIVE Urine Total Protein NEGATIVE Vancomycin Level Trough 19.9 Medications Medications Current Medications Aspirin (Halfprin) 81 mg Q7D PO Last administered on 02/01/17 09:45; Admin Dose 81 MG; Start 02/01/17 at 09:00 Atorvastatin Calcium (Lipitor) 20 mg QHS PO Last administered on 02/01/17 21:52 ; Admin Dose 20 MG; Start 01/31/17 at 21:00 Escitalopram Oxalate (Lexapro) 10 mg DAILY PO Last administered on 02/02/17 09: 07; Admin Dose 10 MG; Start 02/01/17 at 09:00 Furosemide (Lasix) 20 mg DAILY PO Last administered on 02/02/17 09:07; Admin Dose 20 MG; Start 02/01/17 at 09:00; Status Future Hold Ondansetron HCl (Zofran Inj) 4 mg Q6 PRN IV NAUSEA; Start 01/31/17 at 19:30 Enoxaparin Sodium 30 mg 30 mg DAILY SC Last administered on 02/02/17 09:17; Admin Dose 30 MG; Start 02/01/17 at 09:00 Dextrose/Sodium Chloride (D5-1/2ns) 1,000 ml @ 40 mls/hr Q24H IV Last administered on 02/01/17 12:46; Admin Dose 40 MLS/HR; Start 01/31/17 at 19:30 Morphine Sulfate (Ms Contin (Er)) 15 mg BID PO Last administered on 02/02/17 09 :07; Admin Dose 15 MG; Start 01/31/17 at 23:00 Morphine Sulfate (morphine) 4 mg Q4H PRN IV SEVERE PAIN LEVEL 7-10 Last administered on 02/01/17 06:25; Admin Dose 4 MG; Start 01/31/17 at 23:00 Metoprolol Succinate (Toprol Xl) 25 mg BID PO Last administered on 02/01/17 21: 52; Admin Dose 25 MG; Start 02/01/17 at 12:00 Nitroglycerin (Nitroglycerin (Sl Tab) 0.4 Mg) 1 tab Q5M PRN SL ANGINA; Start at 11:30 Pantoprazole (Protonix Tab) 40 mg DAILY@06 PO Last administered on 02/02/17 06: 08; Admin Dose 40 MG; Start 02/02/17 at 06:00 Voriconazole (Vfend) 200 mg BID PO Last administered on 02/02/17 09:07; Admin Dose 200 MG; Start 02/01/17 at 21:00 Levofloxacin 500 mg 500 mg DAILY@06 PO Last administered on 02/02/17 06:04; Admin Dose 500 MG; Start 02/01/17 at 21:30 Cefepime HCl (Maxipime 2gm/50 ml (Pmx)) 50 ml @ 100 mls/hr Q24H IVPB ; Start at 09:00 Senna (Senokot) 1 tab DAILY PRN PO CONSTIPATION Last administered on 02/02/17 16:14; Admin Dose 1 TAB; Start 02/02/17 at 16:00 Lactulose 20 gm 20 gm DAILY PRN PO CONSTIPATION; Start 02/02/17 at 16:00 Vancomycin HCl/ Sodium Chloride (Vancocin/NS) 500 ml @ 125 mls/hr Q24H IVPB ; Start 02/02/17 at 23:00 STEPHEN LOVE NP Feb 02, 2017 20:39
[2017-02-02] MEDS: ATORVASTATIN 20 MG TAB PO SCH (21:00)
[2017-02-02] MEDS: VANCOMYCIN 1.75 GM in NS 500 ML IVPB SCH (23:17)
[2017-02-03] VITALS (18 sets, daily range): BP systolic 90–117; BP diastolic 55–69; PULSE 84–102; RESP 16–20
[2017-02-03] MEDS: DEXTROSE 5%-0.45% NACL 1,000 ML IV SCH ×2 (05:14→12:28)
[2017-02-03] MEDS: PANTOPRAZOLE (EC) 40 MG TAB PO SCH (06:13)
[2017-02-03] MEDS: LEVOFLOXACIN 500 MG TAB PO SCH (06:13)
[2017-02-03] MEDS: LEVOTHYROXINE 75 MCG TAB PO SCH (06:13)
[2017-02-03 08:46] LABS: CREATININE 1.53 mg/dl (0.61-1.24)
[2017-02-03] MEDS: METOPROLOL (XL) 50 MG TAB PO SCH (09:00)
[2017-02-03] MEDS: CEFEPIME 2GM/50 ML (PMX) 50 ML IVPB SCH (09:51)
[2017-02-03] MEDS: ESCITALOPRAM 10 MG TAB PO SCH (09:53)
[2017-02-03] MEDS: VORICONAZOLE 200 MG TAB PO SCH ×2 (09:53→20:36)
[2017-02-03] MEDS: morphine (ER) 15 MG TAB PO SCH ×2 (09:53→20:36)
[2017-02-03] MEDS: ENOXAPARIN 30 MG/0.3 ML SYG SC SCH (09:57)
--- NOTE | 2017-02-03 15:26 | CONS ---
DATE OF ADMISSION: 01/31/2017 DATE OF CONSULTATION: 02/03/2017 REASON FOR CONSULTATION: Shortness of breath. Thank you, Dr. Scanlon, for this consultation. HISTORY OF PRESENT ILLNESS: This is a pleasant 61-year-old gentleman seen by myself in the past with a history of metastatic lung cancer affecting the right lung with almost total involvement of his right lung except for few areas of aeration, who comes in with increasing cough, congestion, shortness of breath. CT of the chest was performed, demonstrating no new changes to extensive right-sided disease. Patient states he is feeling better today. PAST MEDICAL HISTORY: 1. Metastatic lung cancer, non-small cell. 2. History of pancytopenia. 3. Status post radiation therapy, currently continuing chemotherapy. 4. History of tobacco use. MEDICATIONS: Per chart. ALLERGIES: NONE. SOCIAL HISTORY: He has a positive tobacco history. PHYSICAL EXAMINATION: GENERAL: Elderly gentleman, appears comfortable at rest. No acute distress. VITAL SIGNS: Currently afebrile. Pulse 90, blood pressure 109/55, O2 sat 96% on 5 L nasal cannula. NECK: Supple. No JVD, lymphadenopathy. CARDIAC: S1, S2. No added sounds or murmurs. CHEST: Diminished air entry bilaterally. ABDOMEN: Soft, nontender. No guarding or rebound. EXTREMITIES: No clubbing, cyanosis or edema. NEUROLOGIC: Generalized weakness. LABORATORY: White count 18.0, hemoglobin 9.6, platelets 151, 000. Chemistry: BUN 18, creatinine 1.53. INR was 1.08. Urinalysis was unremarkable. DIAGNOSTIC STUDIES: Chest x-ray and CT findings as above. Upper extremity Doppler shows nonocclusive deep vein thrombosis right subclavian vein. IMPRESSION: 1. Likely postobstructive pneumonia. 2. Metastatic non-small cell lung cancer. 3. Possible component of chronic obstructive pulmonary disease exacerbation. 4. Nonocclusive upper extremity deep vein thrombosis. PLAN: 1. Continue antibiotics. 2. Continue supplemental O2. 3. Heme-Onc recommendations. 4. Consider full anticoagulation for deep vein thrombosis. 5. DVT and GI prophylaxis. Dictated By: Rodriguez Castanon MD /chele/miguel /Document#: [id number]
--- NOTE | 2017-02-03 16:16 | CONS ---
Date/Time of Note Date/Time of Note DATE: 02/03/17 TIME: 16:12 Assessment/Plan Assessment/Plan Additional Assessment/Plan Metastatic lung cancer, non-small cell. Status post radiation therapy with chemotherapy. History of tobacco use. Dyslipidemia Hypothyroidism Episodes on Hypotension Continue Morphine Continue Antibiotic Stopped Metoprolol Continue Levothyroxine Continue Lipitor Continue Nebs Continue GI and DVT Prophylaxis Consultation Date/Type/Reason Admit Date/Time Jan 31, 2017 at 18:59 Constitutional: other (weakness), requiring IVF, requiring O2 Eyes: no complaints ENT: no complaints Respiratory: cough, shortness of breath, sputum, wheezing, No pleuritic pain Cardiovascular: no complaints Gastrointestinal: no complaints Genitourinary: no complaints Musculoskeletal: no complaints Skin: no complaints Neurologic: no complaints Psychological: nl mood/affect Past Medical History Medical History: other (lung CA, 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) Social History Alcohol Use: none Smoking Status: Former smoker Exam/Review of Systems Vital Signs Vitals Vital Signs Date Time Temp Pulse Resp B/P Pulse Ox O2 Delivery O2 Flow Rate FiO2 02/03/17 12:30 Nasal Cannula 5.0 02/03/17 12:22 99 02/03/17 12:12 98.0 18 96/65 98 02/03/17 05:21 30 Intake and Output 02/02/17 02/02/17 02/03/17 15:00 23:00 07:00 Intake Total 720 ml 500 ml Output Total 420 ml 650 ml Balance 300 ml -150 ml Exam Constitutional: alert, oriented, well developed Head: normocephalic Eyes: nl conjunctiva Respiratory: clear to auscultation Cardiovascular: regular rate and rhythm Gastrointestinal: nl liver, spleen, non-tender, soft Extremities: normal pulses Results Result Diagram: 02/02/17 0705 02/03/17 0740 Results 24 hrs Laboratory Tests Test 02/02/17 17:12 02/03/17 07:40 Vancomycin Level Trough 19.9 Blood Urea Nitrogen 20 Creatinine 1.53 H Medications Medications Current Medications Aspirin (Halfprin) 81 mg Q7D PO Last administered on 02/01/17 09:45; Admin Dose 81 MG; Start 02/01/17 at 09:00 Atorvastatin Calcium (Lipitor) 20 mg QHS PO Last administered on 02/02/17 21:00 ; Admin Dose 20 MG; Start 01/31/17 at 21:00 Escitalopram Oxalate (Lexapro) 10 mg DAILY PO Last administered on 02/03/17 09: 53; Admin Dose 10 MG; Start 02/01/17 at 09:00 Furosemide (Lasix) 20 mg DAILY PO Last administered on 02/02/17 09:07; Admin Dose 20 MG; Start 02/01/17 at 09:00; Status Future Hold Ondansetron HCl (Zofran Inj) 4 mg Q6 PRN IV NAUSEA; Start 01/31/17 at 19:30 Enoxaparin Sodium 30 mg 30 mg DAILY SC Last administered on 02/03/17 09:57; Admin Dose 30 MG; Start 02/01/17 at 09:00 Dextrose/Sodium Chloride (D5-1/2ns) 1,000 ml @ 75 mls/hr [id number] IV Last administered on 02/03/17 12:28; Admin Dose 75 MLS/HR; Start 01/31/17 at 19:30 Morphine Sulfate (Ms Contin (Er)) 15 mg BID PO Last administered on 02/03/17 09 :53; Admin Dose 15 MG; Start 01/31/17 at 23:00 Morphine Sulfate (morphine) 4 mg Q4H PRN IV SEVERE PAIN LEVEL 7-10 Last administered on 02/01/17 06:25; Admin Dose 4 MG; Start 01/31/17 at 23:00 Metoprolol Succinate (Toprol Xl) 25 mg BID PO Last administered on 02/02/17 21: 02; Admin Dose 25 MG; Start 02/01/17 at 12:00 Nitroglycerin (Nitroglycerin (Sl Tab) 0.4 Mg) 1 tab Q5M PRN SL ANGINA; Start at 11:30 Pantoprazole (Protonix Tab) 40 mg DAILY@06 PO Last administered on 02/03/17 06: 13; Admin Dose 40 MG; Start 02/02/17 at 06:00 Voriconazole (Vfend) 200 mg BID PO Last administered on 02/03/17 09:53; Admin Dose 200 MG; Start 02/01/17 at 21:00 Levofloxacin 500 mg 500 mg DAILY@06 PO Last administered on 02/03/17 06:13; Admin Dose 500 MG; Start 02/01/17 at 21:30 Cefepime HCl (Maxipime 2gm/50 ml (Pmx)) 50 ml @ 100 mls/hr Q24H IVPB Last administered on 02/03/17 09:51; Admin Dose 100 MLS/HR; Start 02/03/17 at 09:00 Senna (Senokot) 1 tab DAILY PRN PO CONSTIPATION Last administered on 02/02/17 16:14; Admin Dose 1 TAB; Start 02/02/17 at 16:00 Lactulose 20 gm 20 gm DAILY PRN PO CONSTIPATION; Start 02/02/17 at 16:00 Vancomycin HCl/ Sodium Chloride (Vancocin/NS) 500 ml @ 125 mls/hr Q24H IVPB Last administered on 02/02/17 23:17; Admin Dose 125 MLS/HR; Start 02/02/17 at 23: 00 ANDRÉS CAVAZOS M.D. Feb 03, 2017 16:16
[2017-02-03] MEDS: morphine 4 MG/ML VIAL IV PRN (18:09)
--- NOTE | 2017-02-03 20:29 | PN ---
Date/Time of Note Date/Time of Note DATE: 02/03/17 TIME: 20:29 Assessment/Plan Lines/Catheters IV Catheter Type (from [facility]): Peripheral IV Urinary Cath still in place: No Assessment/Plan Chief Complaint/Hosp Course - Problems: Assessment/Plan - Shortness of breath- tolerates O2 3L nc. - Acute appearing nonocclusive deep venous thrombosis in the right subclavian vein- on Lovenox - Acute respiratory failure - pulmonary follows - cardiology follows - BIPAP. - Metastatic lung Cancer - per Oncology- Dr Valiente - BLE trace edema - will do Doppler r/o DVT- DVT neg - Anemia - Monitor CBC - Hyponatremia - IVF- - nephrology follows - Post Hypoxemic respiratory failure IN AUG 2016 , - reaction to CARBO - Severe pneumonia/bronchitis due to enterobacter (09/22/2016-) - Hx Afib - HX Pancytopenia - sp chemo - Monitor CBC - Leukocytosis- possibly sec to post obstructive PNA - per ID consult - HX Leukopenia - SP chemo - SP Neupogen - HX DVT- sp Lovenox -- History of coronary artery disease. - Chronic obstructive pulmonary disease - HX TOBACCO SMOKING Dw Dr Garcia Subjective 24 Hr Interval Summary Free Text/Dictation Late entr- 02/02/2017 Exam/Review of Systems Vital Signs Vitals Vital Signs Date Time Temp Pulse Resp B/P Pulse Ox O2 Delivery O2 Flow Rate FiO2 02/03/17 20:17 89 02/03/17 17:19 Nasal Cannula 3.0 02/03/17 16:22 97.0 18 101/67 98 02/03/17 05:21 30 Intake and Output 02/02/17 02/02/17 02/03/17 15:00 23:00 07:00 Intake Total 720 ml 500 ml Output Total 420 ml 650 ml Balance 300 ml -150 ml Results Result Diagram: 02/02/17 0705 02/03/17 0740 Results 24 hrs Laboratory Tests Test 02/03/17 07:40 Blood Urea Nitrogen 20 Creatinine 1.53 H Medications Medications Current Medications Aspirin (Halfprin) 81 mg Q7D PO Last administered on 02/01/17 09:45; Admin Dose 81 MG; Start 02/01/17 at 09:00 Atorvastatin Calcium (Lipitor) 20 mg QHS PO Last administered on 02/02/17 21:00 ; Admin Dose 20 MG; Start 01/31/17 at 21:00 Escitalopram Oxalate (Lexapro) 10 mg DAILY PO Last administered on 02/03/17 09: 53; Admin Dose 10 MG; Start 02/01/17 at 09:00 Furosemide (Lasix) 20 mg DAILY PO Last administered on 02/02/17 09:07; Admin Dose 20 MG; Start 02/01/17 at 09:00; Status Future Hold Ondansetron HCl (Zofran Inj) 4 mg Q6 PRN IV NAUSEA; Start 01/31/17 at 19:30 Enoxaparin Sodium (Lovenox) 30 mg DAILY SC Last administered on 02/03/17 09:57 ; Admin Dose 30 MG; Start 02/01/17 at 09:00 Morphine Sulfate (Ms Contin (Er)) 15 mg BID PO Last administered on 02/03/17 09 :53; Admin Dose 15 MG; Start 01/31/17 at 23:00 Morphine Sulfate (morphine) 4 mg Q4H PRN IV SEVERE PAIN LEVEL 7-10 Last administered on 02/03/17 18:09; Admin Dose 4 MG; Start 01/31/17 at 23:00 Nitroglycerin (Nitroglycerin (Sl Tab) 0.4 Mg) 1 tab Q5M PRN SL ANGINA; Start at 11:30 Pantoprazole (Protonix Tab) 40 mg DAILY@06 PO Last administered on 02/03/17 06: 13; Admin Dose 40 MG; Start 02/02/17 at 06:00 Voriconazole (Vfend) 200 mg BID PO Last administered on 02/03/17 09:53; Admin Dose 200 MG; Start 02/01/17 at 21:00 Levofloxacin 500 mg 500 mg DAILY@06 PO Last administered on 02/03/17 06:13; Admin Dose 500 MG; Start 02/01/17 at 21:30 Cefepime HCl (Maxipime 2gm/50 ml (Pmx)) 50 ml @ 100 mls/hr Q24H IVPB Last administered on 02/03/17 09:51; Admin Dose 100 MLS/HR; Start 02/03/17 at 09:00 Senna (Senokot) 1 tab DAILY PRN PO CONSTIPATION Last administered on 02/02/17 16:14; Admin Dose 1 TAB; Start 02/02/17 at 16:00 Lactulose 20 gm 20 gm DAILY PRN PO CONSTIPATION; Start 02/02/17 at 16:00 Vancomycin HCl 1.75 gm/Sodium Chloride 500 ml @ 125 mls/hr Q24H IVPB Last administered on 02/02/17t 23:17; Admin Dose 125 MLS/HR; Start 02/02/17 at 23:00 Sodium Chloride (NS) 1,000 ml @ 100 mls/hr Q10H IV ; Start 02/03/17 at 20:30 TRAMAINE ELLSWORTH Feb 03, 2017 20:29
--- NOTE | 2017-02-03 20:30 | PN ---
Date/Time of Note Date/Time of Note DATE: 02/03/17 TIME: 20:30 Assessment/Plan Lines/Catheters IV Catheter Type (from Nrs): Peripheral IV Urinary Cath still in place: No Assessment/Plan Chief Complaint/Hosp Course - Problems: Assessment/Plan - Shortness of breath- tolerates O2 3L nc. - Acute appearing nonocclusive deep venous thrombosis in the right subclavian vein- on Lovenox - Acute respiratory failure - pulmonary follows - cardiology follows - BIPAP. - Metastatic lung Cancer - per Oncology- Dr Valiente - BLE trace edema - will do Doppler r/o DVT- DVT neg - Anemia - Monitor CBC - Hyponatremia - IVF- - nephrology follows - Post Hypoxemic respiratory failure IN AUG 2016 , - reaction to CARBO - Severe pneumonia/bronchitis due to enterobacter (09/22/2016-) - Hx Afib - HX Pancytopenia - sp chemo - Monitor CBC - Leukocytosis- possibly sec to post obstructive PNA - per ID consult - HX Leukopenia - SP chemo - SP Neupogen - HX DVT- sp Lovenox -- History of coronary artery disease. - Chronic obstructive pulmonary disease - HX TOBACCO SMOKING Dw Dr Garcia Subjective 24 Hr Interval Summary Constitutional: requiring O2 ENT: pain Respiratory: shortness of breath Cardiovascular: no complaints Gastrointestinal: pain Musculoskeletal: no complaints Exam/Review of Systems Vital Signs Vitals Vital Signs Date Time Temp Pulse Resp B/P Pulse Ox O2 Delivery O2 Flow Rate FiO2 02/03/17 20:17 89 02/03/17 17:19 Nasal Cannula 3.0 02/03/17 16:22 97.0 18 101/67 98 02/03/17 05:21 30 Intake and Output 02/02/17 02/02/17 02/03/17 15:00 23:00 07:00 Intake Total 720 ml 500 ml Output Total 420 ml 650 ml Balance 300 ml -150 ml Exam Constitutional: alert, obese Respiratory: diminished breath sounds Cardiovascular: nl pulses, regular rate and rhythm Gastrointestinal: non-tender, soft Musculoskeletal: nl extremities to inspection Extremities: normal pulses Neurological: nl mental status, nl speech Results Result Diagram: 02/02/17 0705 02/03/17 0740 Results 24 hrs Laboratory Tests Test 02/03/17 07:40 Blood Urea Nitrogen 20 Creatinine 1.53 H Medications Medications Current Medications Aspirin (Halfprin) 81 mg Q7D PO Last administered on 02/01/17 09:45; Admin Dose 81 MG; Start 02/01/17 at 09:00 Atorvastatin Calcium (Lipitor) 20 mg QHS PO Last administered on 02/02/17 21:00 ; Admin Dose 20 MG; Start 01/31/17 at 21:00 Escitalopram Oxalate (Lexapro) 10 mg DAILY PO Last administered on 02/03/17 09: 53; Admin Dose 10 MG; Start 02/01/17 at 09:00 Furosemide (Lasix) 20 mg DAILY PO Last administered on 02/02/17 09:07; Admin Dose 20 MG; Start 02/01/17 at 09:00; Status Future Hold Ondansetron HCl (Zofran Inj) 4 mg Q6 PRN IV NAUSEA; Start 01/31/17 at 19:30 Enoxaparin Sodium (Lovenox) 30 mg DAILY SC Last administered on 02/03/17 09:57 ; Admin Dose 30 MG; Start 02/01/17 at 09:00 Morphine Sulfate (Ms Contin (Er)) 15 mg BID PO Last administered on 02/03/17 09 :53; Admin Dose 15 MG; Start 01/31/17 at 23:00 Morphine Sulfate (morphine) 4 mg Q4H PRN IV SEVERE PAIN LEVEL 7-10 Last administered on 02/03/17 18:09; Admin Dose 4 MG; Start 01/31/17 at 23:00 Nitroglycerin (Nitroglycerin (Sl Tab) 0.4 Mg) 1 tab Q5M PRN SL ANGINA; Start at 11:30 Pantoprazole (Protonix Tab) 40 mg DAILY@06 PO Last administered on 02/03/17 06: 13; Admin Dose 40 MG; Start 02/02/17 at 06:00 Voriconazole (Vfend) 200 mg BID PO Last administered on 02/03/17 09:53; Admin Dose 200 MG; Start 02/01/17 at 21:00 Levofloxacin 500 mg 500 mg DAILY@06 PO Last administered on 02/03/17 06:13; Admin Dose 500 MG; Start 02/01/17 at 21:30 Cefepime HCl (Maxipime 2gm/50 ml (Pmx)) 50 ml @ 100 mls/hr Q24H IVPB Last administered on 02/03/17 09:51; Admin Dose 100 MLS/HR; Start 02/03/17 at 09:00 Senna (Senokot) 1 tab DAILY PRN PO CONSTIPATION Last administered on 02/02/17 16:14; Admin Dose 1 TAB; Start 02/02/17 at 16:00 Lactulose 20 gm 20 gm DAILY PRN PO CONSTIPATION; Start 02/02/17 at 16:00 Vancomycin HCl 1.75 gm/Sodium Chloride 500 ml @ 125 mls/hr Q24H IVPB Last administered on 02/02/17 23:17; Admin Dose 125 MLS/HR; Start 02/02/17 at 23:00 Sodium Chloride (NS) 1,000 ml @ 100 mls/hr Q10H IV ; Start 02/03/17 at 20:30 TRAMAINE ELLSWORTH Feb 03, 2017 20:30
[2017-02-03] MEDS: ATORVASTATIN 20 MG TAB PO SCH (20:36)
[2017-02-03] MEDS: SENNA TAB PO PRN (20:36)
[2017-02-03] MEDS: SOD CHLORIDE 0.9% 1,000 ML IV SCH (20:36)
--- NOTE | 2017-02-03 21:53 | CONS ---
Date/Time of Note Date/Time of Note DATE: 02/03/17 TIME: 21:53 Assessment/Plan Assessment/Plan Chief Complaint/Hosp Course metastatic lung CANCER, NSCLC - ON CHEMO WITH ? RELATIVELY STABLE DIS WILL D/W PULM AND RADIOLOGIST CHEMO ON HOLD DURING HOSPITALIZATION HX PANCYTOPENIA POST CHEMO MONITOR BLOOD COUNT CLOSELY LEUKOCYTOSIS PROB 2 TO POST OBSTRUCTIVE PNA HX LEUKOPENIA- POST CHEMO POST NEUPOGEN IN THE PAST POST Hypoxemic respiratory failure IN AUG 2016 , reaction to CARBO severe pneumonia/bronchitis due to enterobacter (09/22/2016-) HX DVT TREATED WITH LOVENOX PT SELF- DC 2 TO HEMOPTYSIS OUTPT History of coronary artery disease. Chronic obstructive pulmonary disease HX TOBACCO SMOKING Problems: Consultation Date/Type/Reason Admit Date/Time Jan 31, 2017 at 18:59 Initial Consult Date 01/31/17 Type of Consultation: [facility] Referring Provider: TRAMAINE ELLSWORTH 24 HR Interval Summary Free Text/Dictation ALL NOTED BETTER D/W Exam/Review of Systems Vital Signs Vitals Vital Signs Date Time Temp Pulse Resp B/P Pulse Ox O2 Delivery O2 Flow Rate FiO2 02/03/17 20:45 88 93/63 02/03/17 20:34 5.0 02/03/17 20:27 98.5 18 96 02/03/17 17:19 Nasal Cannula 02/03/17 05:21 30 Intake and Output 02/02/17 02/02/17 02/03/17 15:00 23:00 07:00 Intake Total 720 ml 500 ml Output Total 420 ml 650 ml Balance 300 ml -150 ml Exam GENERAL: The patient is alert, awake, complaining of chest pain, shortness of breath. NECK: JVP approximately 9 cm water. CHEST: Upper airway transmitted diffuse rhonchorous sounds. Decreased breath sounds at the bases bilaterally. HEART: Regular rate and rhythm. Normal S1, increased S2. 1/6 systolic murmur. Nondisplaced PMI. ABDOMEN: Positive bowel sounds. Soft. EXTREMITIES: Trace edema, lower extremities bilaterally. 1+ pulses bilateral posterior tibial. Results Result Diagram: 02/02/17 0705 02/03/17 0740 Results 24 hrs Laboratory Tests Test 02/03/17 07:40 Blood Urea Nitrogen 20 Creatinine 1.53 H Medications Medications Current Medications Aspirin (Halfprin) 81 mg Q7D PO Last administered on 02/01/17 09:45; Admin Dose 81 MG; Start 02/01/17 at 09:00 Atorvastatin Calcium (Lipitor) 20 mg QHS PO Last administered on 02/03/17 20:36 ; Admin Dose 20 MG; Start 01/31/17 at 21:00 Escitalopram Oxalate (Lexapro) 10 mg DAILY PO Last administered on 02/03/17 09: 53; Admin Dose 10 MG; Start 02/01/17 at 09:00 Furosemide (Lasix) 20 mg DAILY PO Last administered on 02/02/17 09:07; Admin Dose 20 MG; Start 02/01/17 at 09:00; Status Future Hold Ondansetron HCl (Zofran Inj) 4 mg Q6 PRN IV NAUSEA; Start 01/31/17 at 19:30 Enoxaparin Sodium (Lovenox) 30 mg DAILY SC Last administered on 02/03/17 09:57 ; Admin Dose 30 MG; Start 02/01/17 at 09:00 Morphine Sulfate (Ms Contin (Er)) 15 mg BID PO Last administered on 02/03/17 20 :36; Admin Dose 15 MG; Start 01/31/17 at 23:00 Morphine Sulfate (morphine) 4 mg Q4H PRN IV SEVERE PAIN LEVEL 7-10 Last administered on 02/03/17 18:09; Admin Dose 4 MG; Start 01/31/17 at 23:00 Nitroglycerin (Nitroglycerin (Sl Tab) 0.4 Mg) 1 tab Q5M PRN SL ANGINA; Start at 11:30 Pantoprazole (Protonix Tab) 40 mg DAILY@06 PO Last administered on 02/03/17 06: 13; Admin Dose 40 MG; Start 02/02/17 at 06:00 Voriconazole (Vfend) 200 mg BID PO Last administered on 02/03/17 20:36; Admin Dose 200 MG; Start 02/01/17 at 21:00 Levofloxacin 500 mg 500 mg DAILY@06 PO Last administered on 02/03/17 06:13; Admin Dose 500 MG; Start 02/01/17 at 21:30 Cefepime HCl (Maxipime 2gm/50 ml (Pmx)) 50 ml @ 100 mls/hr Q24H IVPB Last administered on 02/03/17 09:51; Admin Dose 100 MLS/HR; Start 02/03/17 at 09:00 Senna (Senokot) 1 tab DAILY PRN PO CONSTIPATION Last administered on 02/03/17 20:36; Admin Dose 1 TAB; Start 02/02/17 at 16:00 Lactulose 20 gm 20 gm DAILY PRN PO CONSTIPATION; Start 02/02/17 at 16:00 Vancomycin HCl 1.75 gm/Sodium Chloride 500 ml @ 125 mls/hr Q24H IVPB Last administered on 02/02/17 23:17; Admin Dose 125 MLS/HR; Start 02/02/17 at 23:00 Sodium Chloride (NS) 1,000 ml @ 100 mls/hr Q10H IV Last administered on 20:36; Admin Dose 100 MLS/HR; Start 02/03/17 at 20:30 DAHIANA BABCOCK MD Feb 03, 2017 21:53
[2017-02-03] MEDS: VANCOMYCIN 1.75 GM in NS 500 ML IVPB SCH (23:15)
[2017-02-04] VITALS (16 sets, daily range): BP systolic 83–128; BP diastolic 58–79; PULSE 76–100; RESP 16–19
[2017-02-04] MEDS: LEVOFLOXACIN 500 MG TAB PO SCH (05:12)
[2017-02-04] MEDS: PANTOPRAZOLE (EC) 40 MG TAB PO SCH (05:12)
[2017-02-04] MEDS: SOD CHLORIDE 0.9% 1,000 ML IV SCH ×4 (06:30→21:12)
[2017-02-04] MEDS: LEVOTHYROXINE 75 MCG TAB PO SCH (06:58)
[2017-02-04 07:41] LABS: BASOPHILS % 0.1 % (0.0-2.0); EOSINOPHILS % 0.1 % (0.0-7.0); HEMATOCRIT 26.9 % (42.0-52.0); HEMOGLOBIN 8.4 g/dl (14.0-18.0); LYMPHOCYTES # 0.7 10^3/ul (0.8-2.9); LYMPHOCYTES % 7.6 % (15.0-51.0); MEAN CORPUSCULAR HEMOGLOBIN 32.8 pg (29.0-33.0); MEAN CORPUSCULAR HGB CONC 31.2 g/dl (32.0-37.0); MEAN CORPUSCULAR VOLUME 105.1 fl (82.0-101.0); MEAN PLATELET VOLUME 11.2 fl (7.4-10.4); MONOCYTE # 0.6 10^3/ul (0.3-0.9); MONOCYTES % 6.3 % (0.0-11.0); NEUTROPHILS % 84.9 % (39.0-77.0); PLATELET COUNT 125 10^3/UL (140-415); RED BLOOD COUNT 2.56 10^6/ul (4.70-6.10); RED CELL DISTRIBUTION WIDTH 14.9 % (11.5-14.5); WHITE BLOOD COUNT 9.6 10^3/ul (4.8-10.8)
[2017-02-04 08:12] LABS: CALCIUM 8.2 mg/dl (8.4-10.2); CREATININE 1.39 mg/dl (0.61-1.24); POTASSIUM 4.7 mmol/L (3.5-5.1)
[2017-02-04] MEDS: VORICONAZOLE 200 MG TAB PO SCH ×2 (09:32→21:09)
[2017-02-04] MEDS: CEFEPIME 2GM/50 ML (PMX) 50 ML IVPB SCH (09:32)
[2017-02-04] MEDS: ESCITALOPRAM 10 MG TAB PO SCH (09:32)
[2017-02-04] MEDS: morphine (ER) 15 MG TAB PO SCH (09:33)
[2017-02-04] MEDS: ENOXAPARIN 30 MG/0.3 ML SYG SC SCH (09:38)
--- NOTE | 2017-02-04 10:48 | PN ---
Date/Time of Note Date/Time of Note DATE: 02/04/17 TIME: 10:43 Assessment/Plan VTE Prophylaxis VTE Prophylaxis Intervention: other Lines/Catheters IV [facility]ter Type (from [facility] Peripheral IV Urinary Cath still in place: No Assessment/Plan Chief Complaint/Hosp Course - Problems: Assessment/Plan - hypotension- sp NS ivf-infusing at 75 cc/hr.- BP 105/59 - Shortness of breath- tolerates O2 3L nc. - Acute appearing nonocclusive deep venous thrombosis in the right subclavian vein- on Lovenox - Acute respiratory failure - pulmonary follows - cardiology follows - BIPAP. - Metastatic lung Cancer - per Oncology- Dr Valiente - BLE trace edema - will do Doppler r/o DVT- DVT neg - Anemia - Monitor CBC - Hyponatremia - IVF- - nephrology follows - Post Hypoxemic respiratory failure IN AUG 2016 , - reaction to CARBO - Severe pneumonia/bronchitis due to enterobacter (09/22/2016-) - Hx Afib - HX Pancytopenia - sp chemo - Monitor CBC - Leukocytosis- possibly sec to post obstructive PNA - per ID consult - HX Leukopenia - SP chemo - SP Neupogen - HX DVT- sp Lovenox -- History of coronary artery disease. - Chronic obstructive pulmonary disease - HX TOBACCO SMOKING Subjective 24 Hr Interval Summary Constitutional: requiring IVF, requiring O2 Respiratory: no complaints Cardiovascular: no complaints Gastrointestinal: no complaints Genitourinary: no complaints Skin: no complaints Neurologic: no complaints Exam/Review of Systems Vital Signs Vitals Vital Signs Date Time Temp Pulse Resp B/P Pulse Ox O2 Delivery O2 Flow Rate FiO2 02/04/17 08:30 Nasal Cannula 3.0 02/04/17 08:23 80 02/04/17 08:02 98.0 18 105/59 98 02/04/17 01:00 30 Intake and Output 02/03/17 02/03/17 02/04/17 15:00 23:00 07:00 Intake Total 1915 ml 1100 ml Output Total 600 ml Balance 1315 ml 1100 ml Exam Constitutional: alert, obese, oriented Psych: nl mood/affect Respiratory: clear to auscultation, diminished breath sounds Cardiovascular: regular rate and rhythm Gastrointestinal: non-tender, soft Musculoskeletal: nl extremities to inspection Extremities: normal pulses Neurological: nl mental status, nl speech Results Result Diagram: 02/04/1703 02/04/17 0703 Results 24 hrs Laboratory Tests Test 02/04/17 07:03 White Blood Count 9.6 # Red Blood Count 2.56 L Hemoglobin 8.4 L Hematocrit 26.9 L Mean Corpuscular Volume 105.1 H Mean Corpuscular Hemoglobin 32.8 Mean Corpuscular Hemoglobin Concent 31.2 L Red Cell Distribution Width 14.9 H Platelet Count 125 L Mean Platelet Volume 11.2 H Neutrophils % 84.9 H Lymphocytes % 7.6 L Monocytes % 6.3 Eosinophils % 0.1 Basophils % 0.1 Nucleated Red Blood Cells % 0.0 Neutrophils # (Manual) 8.2 H Lymphocytes # 0.7 L Monocytes # 0.6 Eosinophils # 0.0 Basophils # 0.0 Nucleated Red Blood Cells # 0.0 Sodium Level 135 Potassium Level 4.7 Chloride Level 103 Carbon Dioxide Level 29 Anion Gap 8 Blood Urea Nitrogen 18 Creatinine 1.39 H Glucose Level 89 Calcium Level 8.2 L B-Type Natriuretic Peptide 1000 H Medications Medications Current Medications Aspirin (Halfprin) 81 mg Q7D PO Last administered on 02/01/17 09:45; Admin Dose 81 MG; Start 02/01/17 at 09:00 Atorvastatin Calcium (Lipitor) 20 mg QHS PO Last administered on 02/03/17 20:36 ; Admin Dose 20 MG; Start 01/31/17 at 21:00 Escitalopram Oxalate (Lexapro) 10 mg DAILY PO Last administered on 02/04/17 09 :32; Admin Dose 10 MG; Start 02/01/17 at 09:00 Furosemide (Lasix) 20 mg DAILY PO Last administered on 02/02/17 09:07; Admin Dose 20 MG; Start 02/01/17 at 09:00; Status Future Hold Ondansetron HCl (Zofran Inj) 4 mg Q6 PRN IV NAUSEA; Start 01/31/17 at 19:30 Enoxaparin Sodium (Lovenox) 30 mg DAILY SC Last administered on 02/04/17 09:38 ; Admin Dose 30 MG; Start 02/01/17 at 09:00 Morphine Sulfate (Ms Contin (Er)) 15 mg BID PO Last administered on 02/04/17 09:33; Admin Dose 15 MG; Start 01/31/17 at 23:00 Morphine Sulfate (morphine) 4 mg Q4H PRN IV SEVERE PAIN LEVEL 7-10 Last administered on 02/03/17 18:09; Admin Dose 4 MG; Start 01/31/17 at 23:00 Nitroglycerin (Nitroglycerin (Sl Tab) 0.4 Mg) 1 tab Q5M PRN SL ANGINA; Start at 11:30 Pantoprazole (Protonix Tab) 40 mg DAILY@06 PO Last administered on 02/04/17 05 :12; Admin Dose 40 MG; Start 02/02/17 at 06:00 Voriconazole (Vfend) 200 mg BID PO Last administered on 02/04/17 09:32; Admin Dose 200 MG; Start 02/01/17 at 21:00 Levofloxacin 500 mg 500 mg DAILY@06 PO Last administered on 02/04/17 05:12; Admin Dose 500 MG; Start 02/01/17 at 21:30 Cefepime HCl (Maxipime 2gm/50 ml (Pmx)) 50 ml @ 100 mls/hr Q24H IVPB Last administered on 02/04/17 09:32; Admin Dose 100 MLS/HR; Start 02/03/17 at 09:00 Senna (Senokot) 1 tab DAILY PRN PO CONSTIPATION Last administered on 02/03/17 20:36; Admin Dose 1 TAB; Start 02/02/17 at 16:00 Lactulose 20 gm 20 gm DAILY PRN PO CONSTIPATION; Start 02/02/17 at 16:00 Vancomycin HCl 1.75 gm/Sodium Chloride 500 ml @ 125 mls/hr Q24H IVPB Last administered on 02/03/17 23:15; Admin Dose 125 MLS/HR; Start 02/02/17 at 23:00 Sodium Chloride (NS) 1,000 ml @ 75 mls/hr [id number] IV Last administered on 02/04 09:32; Admin Dose 75 MLS/HR; Start 02/04/17 at 08:00 TRAMAINE ELLSWORTH Feb 04, 2017 10:47
--- NOTE | 2017-02-04 13:16 | CONS ---
Date/Time of Note Date/Time of Note DATE: 02/04/17 TIME: 13:15 Assessment/Plan Assessment/Plan Additional Assessment/Plan Metastatic lung cancer, non-small cell. Status post radiation therapy with chemotherapy. History of tobacco use. Dyslipidemia Hypothyroidism Episodes on Hypotension Continue Morphine Continue Antibiotics Off Metoprolol Continue Levothyroxine Continue Lipitor Continue Nebs as scheduled Continue GI and DVT Prophylaxis Consultation Date/Type/Reason Admit Date/Time Jan 31, 2017 at 18:59 Initial Consult Date 02/01/17 Type of Consultation: [facility] Referring Provider: TRAMAINE ELLSWORTH Exam/Review of Systems Vital Signs Vitals Vital Signs Date Time Temp Pulse Resp B/P Pulse Ox O2 Delivery O2 Flow Rate FiO2 02/04/17 12:40 98.0 87 18 89/59 98 02/04/17 08:30 Nasal Cannula 3.0 02/04/17 01:00 30 Intake and Output 02/03/17 02/03/17 02/04/17 15:00 23:00 07:00 Intake Total 1915 ml 1100 ml Output Total 600 ml Balance 1315 ml 1100 ml Exam Constitutional: alert, oriented, well developed Respiratory: diminished breath sounds Cardiovascular: regular rate and rhythm Gastrointestinal: nl liver, spleen, non-tender, soft Extremities: normal pulses Results Result Diagram: 02/04/17 0703 02/04/17 0703 Results 24 hrs Laboratory Tests Test 02/04/17 07:03 White Blood Count 9.6 # Red Blood Count 2.56 L Hemoglobin 8.4 L Hematocrit 26.9 L Mean Corpuscular Volume 105.1 H Mean Corpuscular Hemoglobin 32.8 Mean Corpuscular Hemoglobin Concent 31.2 L Red Cell Distribution Width 14.9 H Platelet Count 125 L Mean Platelet Volume 11.2 H Neutrophils % 84.9 H Lymphocytes % 7.6 L Monocytes % 6.3 Eosinophils % 0.1 Basophils % 0.1 Nucleated Red Blood Cells % 0.0 Neutrophils # (Manual) 8.2 H Lymphocytes # 0.7 L Monocytes # 0.6 Eosinophils # 0.0 Basophils # 0.0 Nucleated Red Blood Cells # 0.0 Sodium Level 135 Potassium Level 4.7 Chloride Level 103 Carbon Dioxide Level 29 Anion Gap 8 Blood Urea Nitrogen 18 Creatinine 1.39 H Glucose Level 89 Calcium Level 8.2 L B-Type Natriuretic Peptide 1000 H Medications Medications Current Medications Aspirin (Halfprin) 81 mg Q7D PO Last administered on 02/01/17 09:45; Admin Dose 81 MG; Start 02/01/17 at 09:00 Atorvastatin Calcium (Lipitor) 20 mg QHS PO Last administered on 02/03/17 20:36 ; Admin Dose 20 MG; Start 01/31/17 at 21:00 Escitalopram Oxalate (Lexapro) 10 mg DAILY PO Last administered on 02/04/17 09 :32; Admin Dose 10 MG; Start 02/01/17 at 09:00 Furosemide (Lasix) 20 mg DAILY PO Last administered on 02/02/17 09:07; Admin Dose 20 MG; Start 02/01/17 at 09:00; Status Future Hold Ondansetron HCl (Zofran Inj) 4 mg Q6 PRN IV NAUSEA; Start 01/31/17 at 19:30 Enoxaparin Sodium (Lovenox) 30 mg DAILY SC Last administered on 02/04/17 09:38 ; Admin Dose 30 MG; Start 02/01/17 at 09:00 Morphine Sulfate (Ms Contin (Er)) 15 mg BID PO Last administered on 02/04/17 09:33; Admin Dose 15 MG; Start 01/31/17 at 23:00 Morphine Sulfate (morphine) 4 mg Q4H PRN IV SEVERE PAIN LEVEL 7-10 Last administered on 02/03/17 18:09; Admin Dose 4 MG; Start 01/31/17 at 23:00 Nitroglycerin (Nitroglycerin (Sl Tab) 0.4 Mg) 1 tab Q5M PRN SL ANGINA; Start at 11:30 Pantoprazole (Protonix Tab) 40 mg DAILY@06 PO Last administered on 02/04/17 05 :12; Admin Dose 40 MG; Start 02/02/17 at 06:00 Voriconazole (Vfend) 200 mg BID PO Last administered on 02/04/17 09:32; Admin Dose 200 MG; Start 02/01/17 at 21:00 Levofloxacin 500 mg 500 mg DAILY@06 PO Last administered on 02/04/17 05:12; Admin Dose 500 MG; Start 02/01/17 at 21:30 Cefepime HCl (Maxipime 2gm/50 ml (Pmx)) 50 ml @ 100 mls/hr Q24H IVPB Last administered on 02/04/17 09:32; Admin Dose 100 MLS/HR; Start 02/03/17 at 09:00 Senna (Senokot) 1 tab DAILY PRN PO CONSTIPATION Last administered on 02/03/17 20:36; Admin Dose 1 TAB; Start 02/02/17 at 16:00 Lactulose 20 gm 20 gm DAILY PRN PO CONSTIPATION; Start 02/02/17 at 16:00 Vancomycin HCl 1.75 gm/Sodium Chloride 500 ml @ 125 mls/hr Q24H IVPB Last administered on 02/03/17 23:15; Admin Dose 125 MLS/HR; Start 02/02/17 at 23:00 Sodium Chloride (NS) 1,000 ml @ 75 mls/hr [id number] IV Last administered on 02/04 09:32; Admin Dose 75 MLS/HR; Start 02/04/17 at 08:00 ANDRÉS CAVAZOS M.D. Feb 04, 2017 13:16
--- NOTE | 2017-02-04 15:08 | CONS ---
Date/Time of Note Date/Time of Note DATE: 02/04/17 TIME: 15:07 Consult Date/Type/Reason Admit Date/Time Jan 31, 2017 at 18:59 Initial Consult Date 02/01/17 Type of Consultation: Pulm Ordering Provider: TRAMAINE ELLSWORTH Subjective Comfortable, in bed. no resp distress. Objective Vital Signs Date Time Temp Pulse Resp B/P Pulse Ox O2 Delivery O2 Flow Rate FiO2 02/04/17 12:40 98.0 87 18 89/59 98 02/04/17 08:30 Nasal Cannula 3.0 02/04/17 01:00 30 Intake and Output 02/03/17 02/03/17 02/04/17 15:00 23:00 07:00 Intake Total 1915 ml 1100 ml Output Total 600 ml Balance 1315 ml 1100 ml Exam PHYSICAL EXAMINATION: GENERAL: Elderly gentleman, appears comfortable at rest. No acute distress. VITAL SIGNS: NECK: Supple. No JVD, lymphadenopathy. CARDIAC: S1, S2. No added sounds or murmurs. CHEST: Diminished air entry bilaterally. ABDOMEN: Soft, nontender. No guarding or rebound. EXTREMITIES: No clubbing, cyanosis or edema. NEUROLOGIC: Generalized weakness. Results/Medications Result Diagram: 02/04/17 0703 02/04/17 0703 Results 24 hrs Laboratory Tests Test 02/04/17 07:03 White Blood Count 9.6 # Red Blood Count 2.56 L Hemoglobin 8.4 L Hematocrit 26.9 L Mean Corpuscular Volume 105.1 H Mean Corpuscular Hemoglobin 32.8 Mean Corpuscular Hemoglobin Concent 31.2 L Red Cell Distribution Width 14.9 H Platelet Count 125 L Mean Platelet Volume 11.2 H Neutrophils % 84.9 H Lymphocytes % 7.6 L Monocytes % 6.3 Eosinophils % 0.1 Basophils % 0.1 Nucleated Red Blood Cells % 0.0 Neutrophils # (Manual) 8.2 H Lymphocytes # 0.7 L Monocytes # 0.6 Eosinophils # 0.0 Basophils # 0.0 Nucleated Red Blood Cells # 0.0 Sodium Level 135 Potassium Level 4.7 Chloride Level 103 Carbon Dioxide Level 29 Anion Gap 8 Blood Urea Nitrogen 18 Creatinine 1.39 H Glucose Level 89 Calcium Level 8.2 L B-Type Natriuretic Peptide 1000 H Medications Current Medications Aspirin (Halfprin) 81 mg Q7D PO Last administered on 02/01/17 09:45; Admin Dose 81 MG; Start 02/01/17 at 09:00 Atorvastatin Calcium (Lipitor) 20 mg QHS PO Last administered on 02/03/17 20:36 ; Admin Dose 20 MG; Start 01/31/17 at 21:00 Escitalopram Oxalate (Lexapro) 10 mg DAILY PO Last administered on 02/04/17 09 :32; Admin Dose 10 MG; Start 02/01/17 at 09:00 Furosemide (Lasix) 20 mg DAILY PO Last administered on 02/02/17 09:07; Admin Dose 20 MG; Start 02/01/17 at 09:00; Status Future Hold Ondansetron HCl (Zofran Inj) 4 mg Q6 PRN IV NAUSEA; Start 01/31/17 at 19:30 Enoxaparin Sodium (Lovenox) 30 mg DAILY SC Last administered on 02/04/17 09:38 ; Admin Dose 30 MG; Start 02/01/17 at 09:00 Morphine Sulfate (Ms Contin (Er)) 15 mg BID PO Last administered on 02/04/17 09:33; Admin Dose 15 MG; Start 01/31/17 at 23:00 Morphine Sulfate (morphine) 4 mg Q4H PRN IV SEVERE PAIN LEVEL 7-10 Last administered on 02/03/17 18:09; Admin Dose 4 MG; Start 01/31/17 at 23:00 Nitroglycerin (Nitroglycerin (Sl Tab) 0.4 Mg) 1 tab Q5M PRN SL ANGINA; Start at 11:30 Pantoprazole (Protonix Tab) 40 mg DAILY@06 PO Last administered on 02/04/17 05 :12; Admin Dose 40 MG; Start 02/02/17 at 06:00 Voriconazole (Vfend) 200 mg BID PO Last administered on 02/04/17 09:32; Admin Dose 200 MG; Start 02/01/17 at 21:00 Levofloxacin 500 mg 500 mg DAILY@06 PO Last administered on 02/04/17 05:12; Admin Dose 500 MG; Start 02/01/17 at 21:30 Cefepime HCl (Maxipime 2gm/50 ml (Pmx)) 50 ml @ 100 mls/hr Q24H IVPB Last administered on 02/04/17 09:32; Admin Dose 100 MLS/HR; Start 02/03/17 at 09:00 Senna (Senokot) 1 tab DAILY PRN PO CONSTIPATION Last administered on 02/03/17 20:36; Admin Dose 1 TAB; Start 02/02/17 at 16:00 Lactulose 20 gm 20 gm DAILY PRN PO CONSTIPATION; Start 02/02/17 at 16:00 Vancomycin HCl 1.75 gm/Sodium Chloride 500 ml @ 125 mls/hr Q24H IVPB Last administered on 02/03/17 23:15; Admin Dose 125 MLS/HR; Start 02/02/17 at 23:00 Sodium Chloride (NS) 1,000 ml @ 75 mls/hr [id number] IV Last administered on 02/04 09:32; Admin Dose 75 MLS/HR; Start 02/04/17 at 08:00 Assessment/Plan Chief Complaint/Hosp Course IMPRESSION: 1. Likely postobstructive pneumonia. 2. Metastatic non-small cell lung cancer. 3. Possible component of chronic obstructive pulmonary disease exacerbation. 4. Nonocclusive upper extremity deep vein thrombosis. PLAN: 1. Continue antibiotics. 2. Continue supplemental O2. 3. Heme-Onc recommendations. 4. Consider full anticoagulation for deep vein thrombosis. 5. DVT and GI prophylaxis. Problems: ABIODUN SCHULTZ MD, [facility] Feb 04, 2017 15:08
[2017-02-04 15:21] LABS: MYCOPLASMA PNEUMONIAE AB (IGG) 0.94
--- NOTE | 2017-02-04 16:20 | CONS ---
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 Aspergillus antibody was >1:64 but aspergillus antigen in serum by EIA was negative during his last admission. 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 given his immunocompromised state Problems: Consultation Date/Type/Reason Admit Date/Time Jan 31, 2017 at 18:59 Initial Consult Date 02/01/17 Type of Consultation: Pulm Referring Provider: TRAMAINE ELLSWORTH Exam/Review of Systems Vital Signs Vitals Vital Signs Date Time Temp Pulse Resp B/P Pulse Ox O2 Delivery O2 Flow Rate FiO2 02/04/17 16:17 87 02/04/17 12:40 98.0 18 89/59 98 02/04/17 08:30 Nasal Cannula 3.0 02/04/17 01:00 30 Intake and Output 02/03/17 02/03/17 02/04/17 15:00 23:00 07:00 Intake Total 1915 ml 1100 ml Output Total 600 ml Balance 1315 ml 1100 ml Results Result Diagram: 02/04/17 0703 02/04/17 0703 Results 24 hrs Laboratory Tests Test 02/04/17 07:03 White Blood Count 9.6 # Red Blood Count 2.56 L Hemoglobin 8.4 L Hematocrit 26.9 L Mean Corpuscular Volume 105.1 H Mean Corpuscular Hemoglobin 32.8 Mean Corpuscular Hemoglobin Concent 31.2 L Red Cell Distribution Width 14.9 H Platelet Count 125 L Mean Platelet Volume 11.2 H Neutrophils % 84.9 H Lymphocytes % 7.6 L Monocytes % 6.3 Eosinophils % 0.1 Basophils % 0.1 Nucleated Red Blood Cells % 0.0 Neutrophils # (Manual) 8.2 H Lymphocytes # 0.7 L Monocytes # 0.6 Eosinophils # 0.0 Basophils # 0.0 Nucleated Red Blood Cells # 0.0 Sodium Level 135 Potassium Level 4.7 Chloride Level 103 Carbon Dioxide Level 29 Anion Gap 8 Blood Urea Nitrogen 18 Creatinine 1.39 H Glucose Level 89 Calcium Level 8.2 L B-Type Natriuretic Peptide 1000 H Medications Medications Current Medications Aspirin (Halfprin) 81 mg Q7D PO Last administered on 02/01/17 09:45; Admin Dose 81 MG; Start 02/01/17 at 09:00 Atorvastatin Calcium (Lipitor) 20 mg QHS PO Last administered on 02/03/17 20:36 ; Admin Dose 20 MG; Start 01/31/17 at 21:00 Escitalopram Oxalate (Lexapro) 10 mg DAILY PO Last administered on 02/04/17 09 :32; Admin Dose 10 MG; Start 02/01/17 at 09:00 Furosemide (Lasix) 20 mg DAILY PO Last administered on 02/02/17 09:07; Admin Dose 20 MG; Start 02/01/17 at 09:00; Status Future Hold Ondansetron HCl (Zofran Inj) 4 mg Q6 PRN IV NAUSEA; Start 01/31/17 at 19:30 Enoxaparin Sodium (Lovenox) 30 mg DAILY SC Last administered on 02/04/17 09:38 ; Admin Dose 30 MG; Start 02/01/17 at 09:00 Morphine Sulfate (Ms Contin (Er)) 15 mg BID PO Last administered on 02/04/17 09:33; Admin Dose 15 MG; Start 01/31/17 at 23:00 Morphine Sulfate (morphine) 4 mg Q4H PRN IV SEVERE PAIN LEVEL 7-10 Last administered on 02/03/17 18:09; Admin Dose 4 MG; Start 01/31/17 at 23:00 Nitroglycerin (Nitroglycerin (Sl Tab) 0.4 Mg) 1 tab Q5M PRN SL ANGINA; Start at 11:30 Pantoprazole (Protonix Tab) 40 mg DAILY@06 PO Last administered on 02/04/17 05 :12; Admin Dose 40 MG; Start 02/02/17 at 06:00 Voriconazole (Vfend) 200 mg BID PO Last administered on 02/04/17 09:32; Admin Dose 200 MG; Start 02/01/17 at 21:00 Levofloxacin 500 mg 500 mg DAILY@06 PO Last administered on 02/04/17 05:12; Admin Dose 500 MG; Start 02/01/17 at 21:30 Cefepime HCl (Maxipime 2gm/50 ml (Pmx)) 50 ml @ 100 mls/hr Q24H IVPB Last administered on 02/04/17 09:32; Admin Dose 100 MLS/HR; Start 02/03/17 at 09:00 Senna (Senokot) 1 tab DAILY PRN PO CONSTIPATION Last administered on 02/03/17 20:36; Admin Dose 1 TAB; Start 02/02/17 at 16:00 Lactulose 20 gm 20 gm DAILY PRN PO CONSTIPATION; Start 02/02/17 at 16:00 Vancomycin HCl 1.75 gm/Sodium Chloride 500 ml @ 125 mls/hr Q24H IVPB Last administered on 02/03/17 23:15; Admin Dose 125 MLS/HR; Start 02/02/17 at 23:00 Sodium Chloride (NS) 1,000 ml @ 75 mls/hr [id number] IV Last administered on 02/04 09:32; Admin Dose 75 MLS/HR; Start 02/04/17 at 08:00 DELIO DIALLO MD Feb 04, 2017 16:20
--- NOTE | 2017-02-04 19:39 | CONS ---
Date/Time of Note Date/Time of Note DATE: 02/04/17 TIME: 19:39 Assessment/Plan Assessment/Plan Chief Complaint/Hosp Course metastatic lung CANCER, NSCLC - ON CHEMO WITH RELATIVELY STABLE DIS D/W PULM AND RADIOLOGIST CHEMO ON HOLD DURING HOSPITALIZATION HX PANCYTOPENIA POST CHEMO MONITOR BLOOD COUNT CLOSELY LEUKOCYTOSIS PROB 2 TO POST OBSTRUCTIVE PNA HX LEUKOPENIA- POST CHEMO POST NEUPOGEN IN THE PAST POST Hypoxemic respiratory failure IN AUG 2016 , reaction to CARBO severe pneumonia/bronchitis due to enterobacter (09/22/2016-) HX DVT TREATED WITH LOVENOX PT SELF- DC 2 TO HEMOPTYSIS OUTPT History of coronary artery disease. Chronic obstructive pulmonary disease HX TOBACCO SMOKING Problems: Consultation Date/Type/Reason Admit Date/Time Jan 31, 2017 at 18:59 Initial Consult Date 01/31/17 [facility] Referring Provider: TRAMAINE ELLSWORTH 24 HR Interval Summary Free Text/Dictation ALL NOTED IMPROVING Exam/Review of Systems Vital Signs Vitals Vital Signs Date Time Temp Pulse Resp B/P Pulse Ox O2 Delivery O2 Flow Rate FiO2 02/04/17 17:51 3.0 02/04/17 16:25 98.0 90 18 128/62 98 02/04/17 08:30 Nasal Cannula 02/04/17 01:00 30 Intake and Output 02/03/17 02/03/17 02/04/17 15:00 23:00 07:00 Intake Total 1915 ml 1100 ml Output Total 600 ml Balance 1315 ml 1100 ml Exam GENERAL: The patient is alert, awake, complaining of chest pain, shortness of breath. NECK: JVP approximately 9 cm water. CHEST: Upper airway transmitted diffuse rhonchorous sounds. Decreased breath sounds at the bases bilaterally. HEART: Regular rate and rhythm. Normal S1, increased S2. 1/6 systolic murmur. Nondisplaced PMI. ABDOMEN: Positive bowel sounds. Soft. EXTREMITIES: Trace edema, lower extremities bilaterally. 1+ pulses bilateral posterior tibial. Results Result Diagram: 02/04/17 0703 02/04/17 0703 Results 24 hrs Laboratory Tests Test 02/04/17 07:03 White Blood Count 9.6 # Red Blood Count 2.56 L Hemoglobin 8.4 L Hematocrit 26.9 L Mean Corpuscular Volume 105.1 H Mean Corpuscular Hemoglobin 32.8 Mean Corpuscular Hemoglobin Concent 31.2 L Red Cell Distribution Width 14.9 H Platelet Count 125 L Mean Platelet Volume 11.2 H Neutrophils % 84.9 H Lymphocytes % 7.6 L Monocytes % 6.3 Eosinophils % 0.1 Basophils % 0.1 Nucleated Red Blood Cells % 0.0 Neutrophils # (Manual) 8.2 H Lymphocytes # 0.7 L Monocytes # 0.6 Eosinophils # 0.0 Basophils # 0.0 Nucleated Red Blood Cells # 0.0 Sodium Level 135 Potassium Level 4.7 Chloride Level 103 Carbon Dioxide Level 29 Anion Gap 8 Blood Urea Nitrogen 18 Creatinine 1.39 H Glucose Level 89 Calcium Level 8.2 L B-Type Natriuretic Peptide 1000 H Medications Medications Current Medications Aspirin (Halfprin) 81 mg Q7D PO Last administered on 02/01/17 09:45; Admin Dose 81 MG; Start 02/01/17 at 09:00 Atorvastatin Calcium (Lipitor) 20 mg QHS PO Last administered on 02/03/17 20:36 ; Admin Dose 20 MG; Start 01/31/17 at 21:00 Escitalopram Oxalate (Lexapro) 10 mg DAILY PO Last administered on 02/04/17 09 :32; Admin Dose 10 MG; Start 02/01/17 at 09:00 Furosemide (Lasix) 20 mg DAILY PO Last administered on 02/02/17 09:07; Admin Dose 20 MG; Start 02/01/17 at 09:00; Status Future Hold Ondansetron HCl (Zofran Inj) 4 mg Q6 PRN IV NAUSEA; Start 01/31/17 at 19:30 Enoxaparin Sodium (Lovenox) 30 mg DAILY SC Last administered on 02/04/17 09:38 ; Admin Dose 30 MG; Start 02/01/17 at 09:00 Morphine Sulfate (Ms Contin (Er)) 15 mg BID PO Last administered on 02/04/17 09:33; Admin Dose 15 MG; Start 01/31/17 at 23:00 Morphine Sulfate (morphine) 4 mg Q4H PRN IV SEVERE PAIN LEVEL 7-10 Last administered on 02/03/17 18:09; Admin Dose 4 MG; Start 01/31/17 at 23:00 Nitroglycerin (Nitroglycerin (Sl Tab) 0.4 Mg) 1 tab Q5M PRN SL ANGINA; Start at 11:30 Pantoprazole (Protonix Tab) 40 mg DAILY@06 PO Last administered on 02/04/17 05 :12; Admin Dose 40 MG; Start 02/02/17 at 06:00 Voriconazole (Vfend) 200 mg BID PO Last administered on 02/04/17 09:32; Admin Dose 200 MG; Start 02/01/17 at 21:00 Levofloxacin 500 mg 500 mg DAILY@06 PO Last administered on 02/04/17 05:12; Admin Dose 500 MG; Start 02/01/17 at 21:30 Cefepime HCl (Maxipime 2gm/50 ml (Pmx)) 50 ml @ 100 mls/hr Q24H IVPB Last administered on 02/04/17 09:32; Admin Dose 100 MLS/HR; Start 02/03/17 at 09:00 Senna (Senokot) 1 tab DAILY PRN PO CONSTIPATION Last administered on 02/03/17 20:36; Admin Dose 1 TAB; Start 02/02/17 at 16:00 Lactulose 20 gm 20 gm DAILY PRN PO CONSTIPATION; Start 02/02/17 at 16:00 Vancomycin HCl 1.75 gm/Sodium Chloride 500 ml @ 125 mls/hr Q24H IVPB Last administered on 02/03/17 23:15; Admin Dose 125 MLS/HR; Start 02/02/17 at 23:00 Sodium Chloride (NS) 1,000 ml @ 75 mls/hr [id number] IV Last administered on 02/04 09:32; Admin Dose 75 MLS/HR; Start 02/04/17 at 08:00 DAHIANA BABCOCK MD Feb 04, 2017 19:39
[2017-02-04] MEDS: ATORVASTATIN 20 MG TAB PO SCH (21:09)
[2017-02-05] VITALS (12 sets, daily range): BP systolic 97–160; BP diastolic 58–78; PULSE 86–100; RESP 18–19
[2017-02-05] MEDS: VANCOMYCIN 1.75 GM in NS 500 ML IVPB SCH ×2 (00:42→23:04)
[2017-02-05] MEDS: morphine (ER) 15 MG TAB PO SCH ×3 (02:53→20:26)
[2017-02-05] MEDS: LEVOFLOXACIN 500 MG TAB PO SCH (07:00)
[2017-02-05] MEDS: PANTOPRAZOLE (EC) 40 MG TAB PO SCH (07:00)
[2017-02-05] MEDS: LEVOTHYROXINE 75 MCG TAB PO SCH (07:00)
[2017-02-05] MEDS: VORICONAZOLE 200 MG TAB PO SCH ×2 (08:30→20:26)
[2017-02-05] MEDS: ESCITALOPRAM 10 MG TAB PO SCH (08:30)
[2017-02-05] MEDS: SOD CHLORIDE 0.9% 1,000 ML IV SCH ×2 (08:30→23:04)
[2017-02-05] MEDS: ENOXAPARIN 30 MG/0.3 ML SYG SC SCH (08:32)
[2017-02-05] MEDS: CEFEPIME 2GM/50 ML (PMX) 50 ML IVPB SCH (08:33)
--- NOTE | 2017-02-05 10:24 | CONS ---
Date/Time of Note Date/Time of Note DATE: 02/05/17 TIME: 10:21 Assessment/Plan Assessment/Plan Additional Assessment/Plan Assessment recommendations; 1. Patient admitted with pneumonia which likely is post obstructive involving most of the right lung. There has been slight interval improvement since admission. 2. Underlying obesity. 3. COPD. 4. Metastatic non-small cell lung cancer. Continue current treatment. Prognosis is guarded. Consultation Date/Type/Reason Admit Date/Time Jan 31, 2017 at 18:59 Initial Consult Date 02/01/17 Type of Consultation: Pulmonary Referring Provider: TRAMAINE ELLSWORTH 24 HR Interval Summary Free Text/Dictation Patient condition stable. Denies any fever, complains of slight cough. Denies any chest pain. Shortness of breath is slightly improved. General exam; elderly male, appears quite overweight, currently in no distress. Awake and alert. Exam/Review of Systems Vital Signs Vitals Vital Signs Date Time Temp Pulse Resp B/P Pulse Ox O2 Delivery O2 Flow Rate FiO2 02/05/17 08:30 Nasal Cannula 3.0 02/05/17 08:21 92 02/05/17 08:05 98.0 18 97/58 98 02/04/17 01:00 30 Intake and Output 02/04/17 02/04/17 02/05/17 15:00 23:00 07:00 Intake Total 1450 ml 2350 ml Output Total 700 ml 500 ml Balance 750 ml 1850 ml Results HEENT exam; supple neck, no JVD. No lymphadenopathy. Midline trachea. No thyromegaly. Pharynx is clear. Pupils are are midsize bilaterally. Chest examined; diminished breath sounds right lung. Left lung is clear to auscultation. S1-S2 audible, no murmurs. Regular rhythm. Abdomen exam; soft, protuberant. Nontender. Bowel sounds audible. Extremity exam; trace edema. No clubbing. Pulses 1+ bilaterally. [employer] exam; no focal deficit. Result Diagram: 02/04/1770202/04/17702 Medications Medications Current Medications Aspirin (Halfprin) 81 mg Q7D PO Last administered on 02/01/17 09:45; Admin Dose 81 MG; Start 02/01/17 at 09:00 Atorvastatin Calcium (Lipitor) 20 mg QHS PO Last administered on 02/04/17 21: 09; Admin Dose 20 MG; Start 01/31/17 at 21:00 Escitalopram Oxalate (Lexapro) 10 mg DAILY PO Last administered on 02/05/17 08 :30; Admin Dose 10 MG; Start 02/01/17 at 09:00 Furosemide (Lasix) 20 mg DAILY PO Last administered on 02/02/17 09:07; Admin Dose 20 MG; Start 02/01/17 at 09:00; Status Future Hold Ondansetron HCl (Zofran Inj) 4 mg Q6 PRN IV NAUSEA; Start 01/31/17 at 19:30 Enoxaparin Sodium (Lovenox) 30 mg DAILY SC Last administered on 02/05/17 08:32 ; Admin Dose 30 MG; Start 02/01/17 at 09:00 Morphine Sulfate (Ms Contin (Er)) 15 mg BID PO Last administered on 02/05/17 02:53; Admin Dose 15 MG; Start 01/31/17 at 23:00 Morphine Sulfate (morphine) 4 mg Q4H PRN IV SEVERE PAIN LEVEL 7-10 Last administered on 02/03/17 18:09; Admin Dose 4 MG; Start 01/31/17 at 23:00 Nitroglycerin (Nitroglycerin (Sl Tab) 0.4 Mg) 1 tab Q5M PRN SL ANGINA; Start at 11:30 Pantoprazole (Protonix Tab) 40 mg DAILY@06 PO Last administered on 02/05/17 07 :00; Admin Dose 40 MG; Start 02/02/17 at 06:00 Voriconazole (Vfend) 200 mg BID PO Last administered on 02/05/17 08:30; Admin Dose 200 MG; Start 02/01/17 at 21:00 Levofloxacin 500 mg 500 mg DAILY@06 PO Last administered on 02/05/17 07:00; Admin Dose 500 MG; Start 02/01/17 at 21:30 Cefepime HCl (Maxipime 2gm/50 ml (Pmx)) 50 ml @ 100 mls/hr Q24H IVPB Last administered on 02/05/17 08:33; Admin Dose 100 MLS/HR; Start 02/03/17 at 09:00 Senna (Senokot) 1 tab DAILY PRN PO CONSTIPATION Last administered on 02/03/17 20:36; Admin Dose 1 TAB; Start 02/02/17 at 16:00 Lactulose 20 gm 20 gm DAILY PRN PO CONSTIPATION; Start 02/02/17 at 16:00 Vancomycin HCl 1.75 gm/Sodium Chloride 500 ml @ 125 mls/hr Q24H IVPB Last administered on 02/05/17 00:42; Admin Dose 125 MLS/HR; Start 02/02/17 at 23:00 Sodium Chloride (NS) 1,000 ml @ 75 mls/hr [id number] IV Last administered on 02/05 08:30; Admin Dose 75 MLS/HR; Start 02/04/17 at 08:00 Miscellaneous Information (*Rx Drug Level Order Reminder*) VANCOMYCIN TROUGH AT 2200 ONCE ONCE XX ; Start 02/05/17 at 22:00; Stop 02/05/17 at 22:01 ISMA CUTLER Feb 05, 2017 10:24
--- NOTE | 2017-02-05 12:22 | CONS ---
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 Aspergillus antibody was >1:64 but aspergillus antigen in serum by EIA was negative during his last admission. 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 Fraga Problems: Consultation Date/Type/Reason Admit Date/Time Jan 31, 2017 at 18:59 Initial Consult Date 02/01/17 Type of Consultation: Infectious Disease Referring Provider: TRAMAINE ELLSWORTH 24 HR Interval Summary Free Text/Dictation Afebrile, supplemental O2 weaned down from 5 to 3 L via NC per d/w nursing staff. States feels like he is not getting enough air. SOB unchanged. Feels better with CPAP at night. Exam/Review of Systems Vital Signs Vitals Vital Signs Date Time Temp Pulse Resp B/P Pulse Ox O2 Delivery O2 Flow Rate FiO2 02/05/17 12:00 98.0 90 18 122/72 98 02/05/17 08:30 Nasal Cannula 3.0 02/04/17 01:00 30 Intake and Output 02/04/17 02/04/17 02/05/17 15:00 23:00 07:00 Intake Total 1450 ml 2350 ml Output Total 700 ml 500 ml Balance 750 ml 1850 ml Exam Constitutional: alert, obese, oriented, well developed Psych: nl mood/affect Head: atraumatic, normocephalic, other (alopecia) Eyes: nl conjunctiva, nl lids, nl sclera ENMT: nl external ears & nose Neck: supple Respiratory: crackles/rales, diminished breath sounds (R>L), No wheezing Cardiovascular: nl pulses, regular rate and rhythm Gastrointestinal: non-tender, soft Musculoskeletal: nl extremities to inspection Extremities: edema (trace) Neurological: nl mental status, other (generalized weakness) Skin: nl turgor, other (missing nail of L 2nd finger tip with erythema but no purulence) Results Result Diagram: 02/04/17 0703 02/04/17 0703 Medications Medications Current Medications Aspirin (Halfprin) 81 mg Q7D PO Last administered on 02/01/17 09:45; Admin Dose 81 MG; Start 02/01/17 at 09:00 Atorvastatin Calcium (Lipitor) 20 mg QHS PO Last administered on 02/04/17 21: 09; Admin Dose 20 MG; Start 01/31/17 at 21:00 Escitalopram Oxalate (Lexapro) 10 mg DAILY PO Last administered on 02/05/17 08 :30; Admin Dose 10 MG; Start 02/01/17 at 09:00 Furosemide (Lasix) 20 mg DAILY PO Last administered on 02/02/17 09:07; Admin Dose 20 MG; Start 02/01/17 at 09:00; Status Future Hold Ondansetron HCl (Zofran Inj) 4 mg Q6 PRN IV NAUSEA; Start 01/31/17 at 19:30 Enoxaparin Sodium (Lovenox) 30 mg DAILY SC Last administered on 02/05/17 08:32 ; Admin Dose 30 MG; Start 02/01/17 at 09:00 Morphine Sulfate (Ms Contin (Er)) 15 mg BID PO Last administered on 02/05/17 02:53; Admin Dose 15 MG; Start 01/31/17 at 23:00 Morphine Sulfate (morphine) 4 mg Q4H PRN IV SEVERE PAIN LEVEL 7-10 Last administered on 02/03/17 18:09; Admin Dose 4 MG; Start 01/31/17 at 23:00 Nitroglycerin (Nitroglycerin (Sl Tab) 0.4 Mg) 1 tab Q5M PRN SL ANGINA; Start at 11:30 Pantoprazole (Protonix Tab) 40 mg DAILY@06 PO Last administered on 02/05/17 07 :00; Admin Dose 40 MG; Start 02/02/17 at 06:00 Voriconazole (Vfend) 200 mg BID PO Last administered on 02/05/17 08:30; Admin Dose 200 MG; Start 02/01/17 at 21:00 Levofloxacin 500 mg 500 mg DAILY@06 PO Last administered on 02/05/17 07:00; Admin Dose 500 MG; Start 02/01/17 at 21:30 Cefepime HCl (Maxipime 2gm/50 ml (Pmx)) 50 ml @ 100 mls/hr Q24H IVPB Last administered on 02/05/17 08:33; Admin Dose 100 MLS/HR; Start 02/03/17 at 09:00 Senna (Senokot) 1 tab DAILY PRN PO CONSTIPATION Last administered on 02/03/17 20:36; Admin Dose 1 TAB; Start 02/02/17 at 16:00 Lactulose 20 gm 20 gm DAILY PRN PO CONSTIPATION; Start 02/02/17 at 16:00 Vancomycin HCl 1.75 gm/Sodium Chloride 500 ml @ 125 mls/hr Q24H IVPB Last administered on 02/05/17 00:42; Admin Dose 125 MLS/HR; Start 02/02/17 at 23:00 Sodium Chloride (NS) 1,000 ml @ 75 mls/hr [id number] IV Last administered on 02/05 08:30; Admin Dose 75 MLS/HR; Start 02/04/17 at 08:00 Miscellaneous Information (*Rx Drug Level Order Reminder*) VANCOMYCIN TROUGH AT 2200 ONCE ONCE XX ; Start 02/05/17 at 22:00; Stop 02/05/17 at 22:01 STEPHEN LOVE NP Feb 05, 2017 12:22
--- NOTE | 2017-02-05 17:21 | PN ---
Date/Time of Note Date/Time of Note DATE: 02/05/17 TIME: 17:17 Assessment/Plan VTE Prophylaxis VTE Prophylaxis Intervention: other Lines/Catheters IV C[facility]ter Type (from [facility] Peripheral IV Urinary Cath still in place: No Assessment/Plan Chief Complaint/Hosp Course - Problems: Assessment/Plan - hypotension- sp NS ivf-infusing at 75 cc/hr.- BP 105/59 - Shortness of breath- tolerates O2 3L nc. - Acute appearing nonocclusive deep venous thrombosis in the right subclavian vein- on Lovenox - Acute respiratory failure - pulmonary follows - cardiology follows - BIPAP. - Metastatic lung Cancer - per Oncology- Dr Valiente - BLE trace edema - will do Doppler r/o DVT- DVT neg - Anemia - Monitor CBC - Hyponatremia - IVF- - nephrology follows - Post Hypoxemic respiratory failure IN AUG 2016 , - reaction to CARBO - Severe pneumonia/bronchitis due to enterobacter (09/22/2016-) - Hx Afib - HX Pancytopenia - sp chemo - Monitor CBC - Leukocytosis- possibly sec to post obstructive PNA - per ID consult - HX Leukopenia - SP chemo - SP Neupogen - HX DVT- sp Lovenox -- History of coronary artery disease. - Chronic obstructive pulmonary disease - HX TOBACCO SMOKING Subjective 24 Hr Interval Summary Respiratory: shortness of breath Gastrointestinal: no complaints Genitourinary: no complaints Musculoskeletal: no complaints Exam/Review of Systems Vital Signs Vitals Vital Signs Date Time Temp Pulse Resp B/P Pulse Ox O2 Delivery O2 Flow Rate FiO2 02/05/17 16:20 98.0 99 18 98/68 98 02/05/17 08:30 Nasal Cannula 3.0 02/04/17 01:00 30 Intake and Output 02/04/17 02/04/17 02/05/17 15:00 23:00 07:00 Intake Total 1450 ml 2350 ml Output Total 700 ml 500 ml Balance 750 ml 1850 ml Exam Constitutional: alert, obese, well developed Respiratory: diminished breath sounds Gastrointestinal: non-tender, soft Musculoskeletal: nl extremities to inspection Extremities: normal pulses Neurological: nl speech Results Result Diagram: 02/04/17 0703 02/04/17 0703 Medications Medications Current Medications Aspirin (Halfprin) 81 mg Q7D PO Last administered on 02/01/17t 09:45; Admin Dose 81 MG; Start 02/01/17 at 09:00 Atorvastatin Calcium (Lipitor) 20 mg QHS PO Last administered on 02/04/17 21: 09; Admin Dose 20 MG; Start 01/31/17 at 21:00 Escitalopram Oxalate (Lexapro) 10 mg DAILY PO Last administered on 02/05/17 08 :30; Admin Dose 10 MG; Start 02/01/17 at 09:00 Furosemide (Lasix) 20 mg DAILY PO Last administered on 02/02/17 09:07; Admin Dose 20 MG; Start 02/01/17 at 09:00; Status Future Hold Ondansetron HCl (Zofran Inj) 4 mg Q6 PRN IV NAUSEA; Start 01/31/17 at 19:30 Enoxaparin Sodium (Lovenox) 30 mg DAILY SC Last administered on 02/05/17 08:32 ; Admin Dose 30 MG; Start 02/01/17 at 09:00 Morphine Sulfate (Ms Contin (Er)) 15 mg BID PO Last administered on 02/05/17 02:53; Admin Dose 15 MG; Start 01/31/17 at 23:00 Morphine Sulfate (morphine) 4 mg Q4H PRN IV SEVERE PAIN LEVEL 7-10 Last administered on 02/03/17 18:09; Admin Dose 4 MG; Start 01/31/17 at 23:00 Nitroglycerin (Nitroglycerin (Sl Tab) 0.4 Mg) 1 tab Q5M PRN SL ANGINA; Start at 11:30 Pantoprazole (Protonix Tab) 40 mg DAILY@06 PO Last administered on 02/05/17 07 :00; Admin Dose 40 MG; Start 02/02/17 at 06:00 Voriconazole 200 mg 200 mg BID PO Last administered on 02/05/17 08:30; Admin Dose 200 MG; Start 02/01/17 at 21:00 Cefepime HCl (Maxipime 2gm/50 ml (Pmx)) 50 ml @ 100 mls/hr Q24H IVPB Last administered on 02/05/17 08:33; Admin Dose 100 MLS/HR; Start 02/03/17 at 09:00 Senna (Senokot) 1 tab DAILY PRN PO CONSTIPATION Last administered on 02/03/17 20:36; Admin Dose 1 TAB; Start 02/02/17 at 16:00 Lactulose 20 gm 20 gm DAILY PRN PO CONSTIPATION; Start 02/02/17 at 16:00 Vancomycin HCl 1.75 gm/Sodium Chloride 500 ml @ 125 mls/hr Q24H IVPB Last administered on 02/05/17 00:42; Admin Dose 125 MLS/HR; Start 02/02/17 at 23:00 Sodium Chloride (NS) 1,000 ml @ 75 mls/hr [id number] IV Last administered on 02/05 08:30; Admin Dose 75 MLS/HR; Start 02/04/17 at 08:00 Miscellaneous Information (*Rx Drug Level Order Reminder*) VANCOMYCIN TROUGH AT 2200 ONCE ONCE XX ; Start 02/05/17 at 22:00; Stop 02/05/17 at 22:01 TRAMAINE ELLSWORTH Feb 05, 2017 17:21
--- NOTE | 2017-02-05 18:40 | CONS ---
Date/Time of Note Date/Time of Note DATE: 02/05/17 TIME: 18:39 Assessment/Plan Assessment/Plan Chief Complaint/Hosp Course metastatic lung CANCER, NSCLC - ON CHEMO WITH RELATIVELY STABLE DIS D/W PULM AND RADIOLOGIST CHEMO ON HOLD DURING HOSPITALIZATION HX PANCYTOPENIA POST CHEMO MONITOR BLOOD COUNT CLOSELY LEUKOCYTOSIS PROB 2 TO POST OBSTRUCTIVE PNA HX LEUKOPENIA- POST CHEMO POST NEUPOGEN IN THE PAST POST Hypoxemic respiratory failure IN AUG 2016 , reaction to CARBO severe pneumonia/bronchitis due to enterobacter (09/22/2016-) HX DVT TREATED WITH LOVENOX PT SELF- DC 2 TO HEMOPTYSIS OUTPT History of coronary artery disease. Chronic obstructive pulmonary disease HX TOBACCO SMOKING Problems: Consultation Date/Type/Reason Admit Date/Time Jan 31, 2017 at 18:59 Initial Consult Date 01/31/17 [facility] Referring Provider: TRAMAINE ELLSWORTH 24 HR Interval Summary Free Text/Dictation SLOWLY IMPROVING Exam/Review of Systems Vital Signs Vitals Vital Signs Date Time Temp Pulse Resp B/P Pulse Ox O2 Delivery O2 Flow Rate FiO2 02/05/17 16:20 98.0 99 18 98/68 98 02/05/17 08:30 Nasal Cannula 3.0 02/04/17 01:00 30 Intake and Output 02/04/17 02/04/17 02/05/17 15:00 23:00 07:00 Intake Total 1450 ml 2350 ml Output Total 700 ml 500 ml Balance 750 ml 1850 ml Exam GENERAL: The patient is alert, awake, complaining of chest pain, shortness of breath. NECK: JVP approximately 9 cm water. CHEST: Upper airway transmitted diffuse rhonchorous sounds. Decreased breath sounds at the bases bilaterally. HEART: Regular rate and rhythm. Normal S1, increased S2. 1/6 systolic murmur. Nondisplaced PMI. ABDOMEN: Positive bowel sounds. Soft. EXTREMITIES: Trace edema, lower extremities bilaterally. 1+ pulses bilateral posterior tibial. Results Result Diagram: 02/04/1770202/04/17702 Medications Medications Current Medications Aspirin (Halfprin) 81 mg Q7D PO Last administered on 02/01/17 09:45; Admin Dose 81 MG; Start 02/01/17 at 09:00 Atorvastatin Calcium (Lipitor) 20 mg QHS PO Last administered on 02/04/17 21: 09; Admin Dose 20 MG; Start 01/31/17 at 21:00 Escitalopram Oxalate (Lexapro) 10 mg DAILY PO Last administered on 02/05/17 08 :30; Admin Dose 10 MG; Start 02/01/17 at 09:00 Furosemide (Lasix) 20 mg DAILY PO Last administered on 02/02/17 09:07; Admin Dose 20 MG; Start 02/01/17 at 09:00; Status Future Hold Ondansetron HCl (Zofran Inj) 4 mg Q6 PRN IV NAUSEA; Start 01/31/17 at 19:30 Enoxaparin Sodium (Lovenox) 30 mg DAILY SC Last administered on 02/05/17 08:32 ; Admin Dose 30 MG; Start 02/01/17 at 09:00 Morphine Sulfate (Ms Contin (Er)) 15 mg BID PO Last administered on 02/05/17 02:53; Admin Dose 15 MG; Start 01/31/17 at 23:00 Morphine Sulfate (morphine) 4 mg Q4H PRN IV SEVERE PAIN LEVEL 7-10 Last administered on 02/03/17 18:09; Admin Dose 4 MG; Start 01/31/17 at 23:00 Nitroglycerin (Nitroglycerin (Sl Tab) 0.4 Mg) 1 tab Q5M PRN SL ANGINA; Start at 11:30 Pantoprazole (Protonix Tab) 40 mg DAILY@06 PO Last administered on 02/05/17 07 :00; Admin Dose 40 MG; Start 02/02/17 at 06:00 Voriconazole 200 mg 200 mg BID PO Last administered on 02/05/17 08:30; Admin Dose 200 MG; Start 02/01/17 at 21:00 Cefepime HCl (Maxipime 2gm/50 ml (Pmx)) 50 ml @ 100 mls/hr Q24H IVPB Last administered on 02/05/17 08:33; Admin Dose 100 MLS/HR; Start 02/03/17 at 09:00 Senna (Senokot) 1 tab DAILY PRN PO CONSTIPATION Last administered on 02/03/17 20:36; Admin Dose 1 TAB; Start 02/02/17 at 16:00 Lactulose 20 gm 20 gm DAILY PRN PO CONSTIPATION; Start 02/02/17 at 16:00 Vancomycin HCl 1.75 gm/Sodium Chloride 500 ml @ 125 mls/hr Q24H IVPB Last administered on 02/05/17 00:42; Admin Dose 125 MLS/HR; Start 02/02/17 at 23:00 Sodium Chloride (NS) 1,000 ml @ 75 mls/hr [id number] IV Last administered on 02/05 08:30; Admin Dose 75 MLS/HR; Start 02/04/17 at 08:00 Miscellaneous Information (*Rx Drug Level Order Reminder*) VANCOMYCIN TROUGH AT 2200 ONCE ONCE XX ; Start 02/05/17 at 22:00; Stop 02/05/17 at 22:01 DAHIANA BABCOCK MD Feb 05, 2017 18:40
[2017-02-05 20:13] LABS: BASOPHILS % 0.2 % (0.0-2.0); EOSINOPHILS % 0.1 % (0.0-7.0); HEMOGLOBIN 9.4 g/dl (14.0-18.0); LYMPHOCYTES # 1.7 10^3/ul (0.8-2.9); LYMPHOCYTES % 13.5 % (15.0-51.0); MEAN CORPUSCULAR HEMOGLOBIN 32.5 pg (29.0-33.0); MEAN CORPUSCULAR HGB CONC 30.3 g/dl (32.0-37.0); MEAN CORPUSCULAR VOLUME 107.3 fl (82.0-101.0); MEAN PLATELET VOLUME 11.2 fl (7.4-10.4); MONOCYTE # 0.8 10^3/ul (0.3-0.9); MONOCYTES % 5.9 % (0.0-11.0); NEUTROPHILS % 79.5 % (39.0-77.0); PLATELET COUNT 163 10^3/UL (140-415); RED BLOOD COUNT 2.89 10^6/ul (4.70-6.10); RED CELL DISTRIBUTION WIDTH 15.3 % (11.5-14.5); WHITE BLOOD COUNT 12.8 10^3/ul (4.8-10.8)
[2017-02-05] MEDS: ATORVASTATIN 20 MG TAB PO SCH (20:26)
[2017-02-05 20:32] LABS: CALCIUM 8.6 mg/dl (8.4-10.2); CREATININE 1.36 mg/dl (0.61-1.24); POTASSIUM 4.6 mmol/L (3.5-5.1)
[2017-02-06] VITALS (17 sets, daily range): BP systolic 100–116; BP diastolic 59–67; PULSE 16–100; RESP 18–20
[2017-02-06] MEDS: LEVOTHYROXINE 75 MCG TAB PO SCH (06:23)
[2017-02-06] MEDS: PANTOPRAZOLE (EC) 40 MG TAB PO SCH (06:23)
[2017-02-06 06:57] LABS: ABNORMAL IP MESSAGE 1; BASOPHILS % 0.3 % (0.0-2.0); EOSINOPHILS % 0.1 % (0.0-7.0); HEMATOCRIT 27.3 % (42.0-52.0); HEMOGLOBIN 8.1 g/dl (14.0-18.0); LYMPHOCYTES # 0.6 10^3/ul (0.8-2.9); LYMPHOCYTES % 5.6 % (15.0-51.0); MEAN CORPUSCULAR HEMOGLOBIN 31.8 pg (29.0-33.0); MEAN CORPUSCULAR HGB CONC 29.7 g/dl (32.0-37.0); MEAN CORPUSCULAR VOLUME 107.1 fl (82.0-101.0); MONOCYTE # 0.6 10^3/ul (0.3-0.9); MONOCYTES % 5.7 % (0.0-11.0); NEUTROPHILS % 87.6 % (39.0-77.0); PLATELET COUNT 131 10^3/UL (140-415); POSITIVE DIFF @See below; RED BLOOD COUNT 2.55 10^6/ul (4.70-6.10); RED CELL DISTRIBUTION WIDTH 15.1 % (11.5-14.5); WHITE BLOOD COUNT 10.5 10^3/ul (4.8-10.8)
[2017-02-06 07:34] LABS: CALCIUM 8.3 mg/dl (8.4-10.2); CREATININE 1.18 mg/dl (0.61-1.24); POTASSIUM 4.4 mmol/L (3.5-5.1)
--- NOTE | 2017-02-06 09:02 | CONS ---
Date/Time of Note Date/Time of Note DATE: 02/06/17 TIME: 08:59 Assessment/Plan Assessment/Plan Additional Assessment/Plan 1. Chest pain. Assess for acute coronary syndrome in a patient with lung cancer, undergoing chemotherapy, likely secondary to lung cancer.-negative trop x3 - no intervention planned 2. Abnormal electrocardiogram with nonspecific ST and T-wave abnormalities, assess for acute coronary syndrome. No active ischemai, Sx likely related to advanced lung disease. 3. Bradycardia, transient while on beta matthew- no indication for pacer. 4. Hypotension-today - satble. 5. Shortness of breath. Rule out congestive heart failure. 6. Lung cancer with ongoing chemotherapy - Rx as needed. 7. Leukocytosis. 8. Anemia. 9. Thrombocytopenia. Consultation Date/Type/Reason Admit Date/Time Jan 31, 2017 at 18:59 Initial Consult Date 02/01/17 Type of Consultation: [facility] Referring Provider: TRAMAINE ELLSWORTH 24 HR Interval Summary Free Text/Dictation NO acute events -BP in good range - NO CP - doubt ischemia. Con't chemo RX ROS: No fever, no chills, no nausea, no vomiting, no diarrhea/constipation No recent weight changes No chest pain, no PND, no orthopnea + SOB No dizziness, blurred vision No thirst, no heat or cold intolerance Exam/Review of Systems Vital Signs Vitals Vital Signs Date Time Temp Pulse Resp B/P Pulse Ox O2 Delivery O2 Flow Rate FiO2 02/06/17 08:28 98.3 87 19 110/67 97 02/06/17 04:00 Nasal Cannula 3.0 02/06/17 02:35 30 Intake and Output 02/05/17 02/05/17 02/06/17 15:00 23:00 07:00 Intake Total 1600 ml 250 ml Output Total 750 ml 550 ml Balance 850 ml -300 ml Exam General: WN/WD/NAD, AOx 3 HEENT: Unicetric/atraumatic/EOMI (follows commands) NECK: JVD elevated, no thyromegaly Lymph: no lymphadenopathy HEART: regular with no S3, II/ systolic murmur at apex LUNGS: Coarse sounds, wheezing ABD: soft, NT, ND, +BS : Intact Neuro: non focal SKIN: chronic changes EXT: trace edema Results Result Diagram: 9/12/17 0624 9/12/17 0624 Results 24 hrs Laboratory Tests Test 02/05/17 19:14 02/05/17 19:18 02/05/17 21:56 02/06/17 06:24 White Blood Count 12.8 #H 10.5 Red Blood Count 2.89 L 2.55 L Hemoglobin 9.4 L 8.1 L Hematocrit 31.0 L 27.3 L Mean Corpuscular Volume 107.3 H 107.1 H Mean Corpuscular Hemoglobin 32.5 31.8 Mean Corpuscular Hemoglobin Concent 30.3 L 29.7 L Red Cell Distribution Width 15.3 H 15.1 H Platelet Count 163 # 131 L Mean Platelet Volume 11.2 H 11.0 H Neutrophils % 79.5 H 87.6 H Lymphocytes % 13.5 L 5.6 L Monocytes % 5.9 5.7 Eosinophils % 0.1 0.1 Basophils % 0.2 0.3 Nucleated Red Blood Cells % 0.0 0.0 Neutrophils # (Manual) 10.2 H 9.2 H Lymphocytes # 1.7 0.6 L Monocytes # 0.8 0.6 Eosinophils # 0.0 0.0 Basophils # 0.0 0.0 Nucleated Red Blood Cells # 0.0 0.0 Sodium Level 137 136 Potassium Level 4.6 4.4 Chloride Level 105 105 Carbon Dioxide Level 24 28 Anion Gap 13 7 L Blood Urea Nitrogen 17 15 Creatinine 1.36 H 1.18 Glucose Level 99 93 Calcium Level 8.6 8.3 L Vancomycin Level Trough 17.8 Medications Medications Current Medications Aspirin (Halfprin) 81 mg Q7D PO Last administered on 02/01/17 09:45; Admin Dose 81 MG; Start 02/01/17 at 09:00 Atorvastatin Calcium (Lipitor) 20 mg QHS PO Last administered on 02/05/17 20: 26; Admin Dose 20 MG; Start 01/31/17 at 21:00 Escitalopram Oxalate (Lexapro) 10 mg DAILY PO Last administered on 02/05/17 08 :30; Admin Dose 10 MG; Start 02/01/17 at 09:00 Furosemide (Lasix) 20 mg DAILY PO Last administered on 02/02/17 09:07; Admin Dose 20 MG; Start 02/01/17 at 09:00; Status Future Hold Ondansetron HCl (Zofran Inj) 4 mg Q6 PRN IV NAUSEA; Start 01/31/17 at 19:30 Enoxaparin Sodium (Lovenox) 30 mg DAILY SC Last administered on 02/05/17 08:32 ; Admin Dose 30 MG; Start 02/01/17 at 09:00 Morphine Sulfate (Ms Contin (Er)) 15 mg BID PO Last administered on 02/05/17 20:26; Admin Dose 15 MG; Start 01/31/17 at 23:00 Morphine Sulfate (morphine) 4 mg Q4H PRN IV SEVERE PAIN LEVEL 7-10 Last administered on 02/03/17 18:09; Admin Dose 4 MG; Start 01/31/17 at 23:00 Nitroglycerin (Nitroglycerin (Sl Tab) 0.4 Mg) 1 tab Q5M PRN SL ANGINA; Start at 11:30 Pantoprazole (Protonix Tab) 40 mg DAILY@06 PO Last administered on 02/06/17 06 :23; Admin Dose 40 MG; Start 02/02/17 at 06:00 Voriconazole 200 mg 200 mg BID PO Last administered on 02/05/17 20:26; Admin Dose 200 MG; Start 02/01/17 at 21:00 Cefepime HCl (Maxipime 2gm/50 ml (Pmx)) 50 ml @ 100 mls/hr Q24H IVPB Last administered on 02/05/17 08:33; Admin Dose 100 MLS/HR; Start 02/03/17 at 09:00 Senna (Senokot) 1 tab DAILY PRN PO CONSTIPATION Last administered on 02/03/17 20:36; Admin Dose 1 TAB; Start 02/02/17 at 16:00 Lactulose 20 gm 20 gm DAILY PRN PO CONSTIPATION; Start 02/02/17 at 16:00 Vancomycin HCl 1.75 gm/Sodium Chloride 500 ml @ 125 mls/hr Q24H IVPB Last administered on 02/05/17 23:04; Admin Dose 125 MLS/HR; Start 02/02/17 at 23:00 Sodium Chloride (NS) 1,000 ml @ 75 mls/hr [id number] IV Last administered on 02/05 23:04; Admin Dose 75 MLS/HR; Start 02/04/17 at 08:00 FRANCIS ESPINAL MD Feb 06, 2017 09:02
--- NOTE | 2017-02-06 09:39 | PN ---
Date/Time of Note Date/Time of Note DATE: 02/06/17 TIME: 09:36 Assessment/Plan Lines/Catheters IV C[facility]ter Type (from [facility] Peripheral IV Urinary Cath still in place: No Assessment/Plan Chief Complaint/Hosp Course - Problems: Assessment/Plan - hypotension- sp NS ivf-infusion- BP 110/67 - Shortness of breath- tolerates O2 3L nc. - Acute appearing nonocclusive deep venous thrombosis in the right subclavian vein- on Lovenox - Acute respiratory failure - pulmonary follows - cardiology follows - BIPAP. - Metastatic lung Cancer - per Oncology- Dr Valiente - BLE trace edema - will do Doppler r/o DVT- DVT neg - Anemia - Monitor CBC - Hyponatremia - IVF- - nephrology follows - Post Hypoxemic respiratory failure IN AUG 2016 , - reaction to CARBO - Severe pneumonia/bronchitis due to enterobacter (09/22/2016-) - Hx Afib - HX Pancytopenia - sp chemo - Monitor CBC - Leukocytosis- possibly sec to post obstructive PNA - per ID consult - HX Leukopenia - SP chemo - SP Neupogen - HX DVT- sp Lovenox -- History of coronary artery disease. - Chronic obstructive pulmonary disease - HX TOBACCO SMOKING Subjective 24 Hr Interval Summary Respiratory: shortness of breath Cardiovascular: no complaints Gastrointestinal: no complaints Genitourinary: no complaints Musculoskeletal: no complaints Exam/Review of Systems Vital Signs Vitals Vital Signs Date Time Temp Pulse Resp B/P Pulse Ox O2 Delivery O2 Flow Rate FiO2 02/06/17 08:30 84 02/06/17 08:28 98.3 19 110/67 97 02/06/17 04:00 Nasal Cannula 3.0 02/06/17 02:35 30 Intake and Output 02/05/17 02/05/17 02/06/17 15:00 23:00 07:00 Intake Total 1600 ml 250 ml Output Total 750 ml 550 ml Balance 850 ml -300 ml Exam Constitutional: alert, obese Respiratory: diminished breath sounds Cardiovascular: nl pulses, other (ST- HR90, O ccassionla PAC's) Gastrointestinal: non-tender, soft Musculoskeletal: nl extremities to inspection Extremities: normal pulses Neurological: nl speech Results Result Diagram: 02/06/17 0624 02/06/17 0624 Results 24 hrs Laboratory Tests Test 02/05/17 19:14 02/05/17 19:18 02/05/17 21:56 02/06/17 06:24 White Blood Count 12.8 #H 10.5 Red Blood Count 2.89 L 2.55 L Hemoglobin 9.4 L 8.1 L Hematocrit 31.0 L 27.3 L Mean Corpuscular Volume 107.3 H 107.1 H Mean Corpuscular Hemoglobin 32.5 31.8 Mean Corpuscular Hemoglobin Concent 30.3 L 29.7 L Red Cell Distribution Width 15.3 H 15.1 H Platelet Count 163 # 131 L Mean Platelet Volume 11.2 H 11.0 H Neutrophils % 79.5 H 87.6 H Lymphocytes % 13.5 L 5.6 L Monocytes % 5.9 5.7 Eosinophils % 0.1 0.1 Basophils % 0.2 0.3 Nucleated Red Blood Cells % 0.0 0.0 Neutrophils # (Manual) 10.2 H 9.2 H Lymphocytes # 1.7 0.6 L Monocytes # 0.8 0.6 Eosinophils # 0.0 0.0 Basophils # 0.0 0.0 Nucleated Red Blood Cells # 0.0 0.0 Sodium Level 137 136 Potassium Level 4.6 4.4 Chloride Level 105 105 Carbon Dioxide Level 24 28 Anion Gap 13 7 L Blood Urea Nitrogen 17 15 Creatinine 1.36 H 1.18 Glucose Level 99 93 Calcium Level 8.6 8.3 L Vancomycin Level Trough 17.8 Medications Medications Current Medications Aspirin (Halfprin) 81 mg Q7D PO Last administered on 02/01/17 09:45; Admin Dose 81 MG; Start 02/01/17 at 09:00 Atorvastatin Calcium (Lipitor) 20 mg QHS PO Last administered on 02/05/17 20: 26; Admin Dose 20 MG; Start 01/31/17 at 21:00 Escitalopram Oxalate (Lexapro) 10 mg DAILY PO Last administered on 02/05/17 08 :30; Admin Dose 10 MG; Start 02/01/17 at 09:00 Furosemide (Lasix) 20 mg DAILY PO Last administered on 02/02/17 09:07; Admin Dose 20 MG; Start 02/01/17 at 09:00; Status Future Hold Ondansetron HCl (Zofran Inj) 4 mg Q6 PRN IV NAUSEA; Start 01/31/17 at 19:30 Enoxaparin Sodium (Lovenox) 30 mg DAILY SC Last administered on 02/05/17 08:32 ; Admin Dose 30 MG; Start 02/01/17 at 09:00 Morphine Sulfate (Ms Contin (Er)) 15 mg BID PO Last administered on 02/05/17 20:26; Admin Dose 15 MG; Start 01/31/17 at 23:00 Morphine Sulfate (morphine) 4 mg Q4H PRN IV SEVERE PAIN LEVEL 7-10 Last administered on 02/03/17 18:09; Admin Dose 4 MG; Start 01/31/17 at 23:00 Nitroglycerin (Nitroglycerin (Sl Tab) 0.4 Mg) 1 tab Q5M PRN SL ANGINA; Start at 11:30 Pantoprazole (Protonix Tab) 40 mg DAILY@06 PO Last administered on 02/06/17 06 :23; Admin Dose 40 MG; Start 02/02/17 at 06:00 Voriconazole 200 mg 200 mg BID PO Last administered on 02/05/17 20:26; Admin Dose 200 MG; Start 02/01/17 at 21:00 Cefepime HCl (Maxipime 2gm/50 ml (Pmx)) 50 ml @ 100 mls/hr Q24H IVPB Last administered on 02/05/17 08:33; Admin Dose 100 MLS/HR; Start 02/03/17 at 09:00 Senna (Senokot) 1 tab DAILY PRN PO CONSTIPATION Last administered on 02/03/17 20:36; Admin Dose 1 TAB; Start 02/02/17 at 16:00 Lactulose 20 gm 20 gm DAILY PRN PO CONSTIPATION; Start 02/02/17 at 16:00 Vancomycin HCl 1.75 gm/Sodium Chloride 500 ml @ 125 mls/hr Q24H IVPB Last administered on 02/05/17 23:04; Admin Dose 125 MLS/HR; Start 02/02/17 at 23:00 Sodium Chloride (NS) 1,000 ml @ 75 mls/hr [id number] IV Last administered on 02/05 23:04; Admin Dose 75 MLS/HR; Start 02/04/17 at 08:00 TRAMAINE ELLSWORTH Feb 06, 2017 09:39
[2017-02-06] MEDS: ENOXAPARIN 30 MG/0.3 ML SYG SC SCH (10:49)
[2017-02-06] MEDS: CEFEPIME 2GM/50 ML (PMX) 50 ML IVPB SCH ×2 (10:50→22:25)
[2017-02-06] MEDS: ESCITALOPRAM 10 MG TAB PO SCH (10:50)
[2017-02-06] MEDS: morphine (ER) 15 MG TAB PO SCH ×2 (10:50→22:29)
[2017-02-06] MEDS: VORICONAZOLE 200 MG TAB PO SCH ×2 (10:50→22:29)
--- NOTE | 2017-02-06 11:39 | CONS ---
Date/Time of Note Date/Time of Note DATE: 02/06/17 TIME: 11:37 Assessment/Plan Assessment/Plan Additional Assessment/Plan Assessment recommendations; 1. Patient admitted with extensive pneumonia involving right lung. 2. Likely postobstructive pneumonia with a history of metastatic non-small cell lung cancer. 3. Underlying sleep apnea. Patient doing fairly well on BiPAP. Continue current treatment. Will obtain follow-up chest x-ray in 48 hours. Consultation Date/Type/Reason Admit Date/Time Jan 31, 2017 at 18:59 Initial Consult Date 02/01/17 Type of Consultation: Pulmonary Referring Provider: TRAMAINE ELLSWORTH 24 HR Interval Summary Free Text/Dictation Patient condition is stable. However requiring BiPAP off and on. Denies any chest pain, fever. Denies any cough or sputum production. Denies any hemoptysis. General exam; elderly male, appears overweight. Currently in no distress. Exam/Review of Systems Vital Signs Vitals Vital Signs Date Time Temp Pulse Resp B/P Pulse Ox O2 Delivery O2 Flow Rate FiO2 02/06/17 11:31 98.1 84 18 100/64 02/06/17 08:28 97 02/06/17 04:00 Nasal Cannula 3.0 02/06/17 02:35 30 Intake and Output 02/05/17 02/05/17 02/06/17 15:00 23:00 07:00 Intake Total 1600 ml 250 ml Output Total 750 ml 550 ml Balance 850 ml -300 ml Exam HEENT exam; supple neck, JVD difficult to see because of short neck. Patient has fair dentition. Pupils are midsize and reactive to light. No neck masses. Chest exam; diminished breath sounds right lung. Left lung is fairly clear. S1 -S2 audible, no murmurs. Regular rhythm. Abdomen exam; soft, protuberant. Nontender. Bowel sounds audible. Extremity exam; no peripheral edema. AMPOULE FILLER exam; no focal deficit. Results Result Diagram: 02/06/1724 02/06/17 0624 Results 24 hrs Laboratory Tests Test 02/05/17 19:14 02/05/17 19:18 02/05/17 21:56 02/06/17 06:24 White Blood Count 12.8 #H 10.5 Red Blood Count 2.89 L 2.55 L Hemoglobin 9.4 L 8.1 L Hematocrit 31.0 L 27.3 L Mean Corpuscular Volume 107.3 H 107.1 H Mean Corpuscular Hemoglobin 32.5 31.8 Mean Corpuscular Hemoglobin Concent 30.3 L 29.7 L Red Cell Distribution Width 15.3 H 15.1 H Platelet Count 163 # 131 L Mean Platelet Volume 11.2 H 11.0 H Neutrophils % 79.5 H 87.6 H Lymphocytes % 13.5 L 5.6 L Monocytes % 5.9 5.7 Eosinophils % 0.1 0.1 Basophils % 0.2 0.3 Nucleated Red Blood Cells % 0.0 0.0 Neutrophils # (Manual) 10.2 H 9.2 H Lymphocytes # 1.7 0.6 L Monocytes # 0.8 0.6 Eosinophils # 0.0 0.0 Basophils # 0.0 0.0 Nucleated Red Blood Cells # 0.0 0.0 Sodium Level 137 136 Potassium Level 4.6 4.4 Chloride Level 105 105 Carbon Dioxide Level 24 28 Anion Gap 13 7 L Blood Urea Nitrogen 17 15 Creatinine 1.36 H 1.18 Glucose Level 99 93 Calcium Level 8.6 8.3 L Vancomycin Level Trough 17.8 Medications Medications Current Medications Aspirin (Halfprin) 81 mg Q7D PO Last administered on 02/01/17 09:45; Admin Dose 81 MG; Start 02/01/17 at 09:00 Atorvastatin Calcium (Lipitor) 20 mg QHS PO Last administered on 02/05/17 20: 26; Admin Dose 20 MG; Start 01/31/17 at 21:00 Escitalopram Oxalate (Lexapro) 10 mg DAILY PO Last administered on 02/06/17 10 :50; Admin Dose 10 MG; Start 02/01/17 at 09:00 Furosemide (Lasix) 20 mg DAILY PO Last administered on 02/02/17 09:07; Admin Dose 20 MG; Start 02/01/17 at 09:00; Status Future Hold Ondansetron HCl (Zofran Inj) 4 mg Q6 PRN IV NAUSEA; Start 01/31/17 at 19:30 Enoxaparin Sodium (Lovenox) 30 mg DAILY SC Last administered on 02/06/17 10:49 ; Admin Dose 30 MG; Start 02/01/17 at 09:00 Morphine Sulfate (Ms Contin (Er)) 15 mg BID PO Last administered on 02/06/17 10:50; Admin Dose 15 MG; Start 01/31/17 at 23:00 Morphine Sulfate (morphine) 4 mg Q4H PRN IV SEVERE PAIN LEVEL 7-10 Last administered on 02/03/17 18:09; Admin Dose 4 MG; Start 01/31/17 at 23:00 Nitroglycerin (Nitroglycerin (Sl Tab) 0.4 Mg) 1 tab Q5M PRN SL ANGINA; Start at 11:30 Pantoprazole (Protonix Tab) 40 mg DAILY@06 PO Last administered on 02/06/17 06 :23; Admin Dose 40 MG; Start 02/02/17 at 06:00 Voriconazole 200 mg 200 mg BID PO Last administered on 02/06/17 10:50; Admin Dose 200 MG; Start 02/01/17 at 21:00 Cefepime HCl (Maxipime 2gm/50 ml (Pmx)) 50 ml @ 100 mls/hr Q24H IVPB Last administered on 02/06/17 10:50; Admin Dose 100 MLS/HR; Start 02/03/17 at 09:00 Senna (Senokot) 1 tab DAILY PRN PO CONSTIPATION Last administered on 02/03/17 20:36; Admin Dose 1 TAB; Start 02/02/17 at 16:00 Lactulose 20 gm 20 gm DAILY PRN PO CONSTIPATION; Start 02/02/17 at 16:00 Vancomycin HCl 1.75 gm/Sodium Chloride 500 ml @ 125 mls/hr Q24H IVPB Last administered on 02/05/17 23:04; Admin Dose 125 MLS/HR; Start 02/02/17 at 23:00 Sodium Chloride (NS) 1,000 ml @ 75 mls/hr [id number] IV Last administered on 02/05 23:04; Admin Dose 75 MLS/HR; Start 02/04/17 at 08:00 ISMA CUTLER Feb 06, 2017 11:39
[2017-02-06] MEDS: SOD CHLORIDE 0.9% 1,000 ML IV SCH (13:20)
[2017-02-06] MEDS: ONDANSETRON 4 MG INJ IV PRN (13:25)
[2017-02-06] MEDS: LEVALBUTEROL (NEB) 0.63 MG/3 ML AMP HHN SCH ×2 (14:31→20:21)
[2017-02-06] MEDS ORDERED: LIDOCAINE 1% (MPF) 5 ML VIAL SC ONE ×2 (15:00)
--- NOTE | 2017-02-06 17:20 | CONS ---
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 Aspergillus antibody was >1:64 but aspergillus antigen in serum by EIA was negative during his last admission. - h/o DVT of RUE - b/l knee pain due to DJD - h/o post-obstructive pneumonia - h/o HTN, CAD, hyperlipidemia - h/o paroxysmal A fib - h/o DVT in LUE - h/o hypothyroidism with elevated TSH level - HIV negative in 2013 recommendations: - pending results: cocci serology, - continue IV vancomycin and cefepime (-) - continue voriconazole for chronic suppression of aspergillus given his immunocompromised state Problems: Consultation Date/Type/Reason Admit Date/Time Jan 31, 2017 at 18:59 Initial Consult Date 02/01/17 Type of Consultation: id Referring Provider: TRAMAINE ELLSWORTH Exam/Review of Systems Vital Signs Vitals Vital Signs Date Time Temp Pulse Resp B/P Pulse Ox O2 Delivery O2 Flow Rate FiO2 02/06/17 15:51 98.8 99 19 101/59 94 02/06/17 14:31 Nasal Cannula 3.0 02/06/17 02:35 30 Intake and Output 02/05/17 02/05/17 02/06/17 15:00 23:00 07:00 Intake Total 1600 ml 250 ml Output Total 750 ml 550 ml Balance 850 ml -300 ml Results Result Diagram: 02/06/17 0624 02/06/17 0624 Results 24 hrs Laboratory Tests Test 02/05/17 19:14 02/05/17 19:18 02/05/17 21:56 02/06/17 06:24 White Blood Count 12.8 #H 10.5 Red Blood Count 2.89 L 2.55 L Hemoglobin 9.4 L 8.1 L Hematocrit 31.0 L 27.3 L Mean Corpuscular Volume 107.3 H 107.1 H Mean Corpuscular Hemoglobin 32.5 31.8 Mean Corpuscular Hemoglobin Concent 30.3 L 29.7 L Red Cell Distribution Width 15.3 H 15.1 H Platelet Count 163 # 131 L Mean Platelet Volume 11.2 H 11.0 H Neutrophils % 79.5 H 87.6 H Lymphocytes % 13.5 L 5.6 L Monocytes % 5.9 5.7 Eosinophils % 0.1 0.1 Basophils % 0.2 0.3 Nucleated Red Blood Cells % 0.0 0.0 Neutrophils # (Manual) 10.2 H 9.2 H Lymphocytes # 1.7 0.6 L Monocytes # 0.8 0.6 Eosinophils # 0.0 0.0 Basophils # 0.0 0.0 Nucleated Red Blood Cells # 0.0 0.0 Sodium Level 137 136 Potassium Level 4.6 4.4 Chloride Level 105 105 Carbon Dioxide Level 24 28 Anion Gap 13 7 L Blood Urea Nitrogen 17 15 Creatinine 1.36 H 1.18 Glucose Level 99 93 Calcium Level 8.6 8.3 L Vancomycin Level Trough 17.8 Medications Medications Current Medications Aspirin (Halfprin) 81 mg Q7D PO Last administered on 02/01/17 09:45; Admin Dose 81 MG; Start 02/01/17 at 09:00 Atorvastatin Calcium (Lipitor) 20 mg QHS PO Last administered on 02/05/17 20: 26; Admin Dose 20 MG; Start 01/31/17 at 21:00 Escitalopram Oxalate (Lexapro) 10 mg DAILY PO Last administered on 02/06/17 10 :50; Admin Dose 10 MG; Start 02/01/17 at 09:00 Furosemide (Lasix) 20 mg DAILY PO Last administered on 02/02/17 09:07; Admin Dose 20 MG; Start 02/01/17 at 09:00; Status Future Hold Ondansetron HCl (Zofran Inj) 4 mg Q6 PRN IV NAUSEA Last administered on 13:25; Admin Dose 4 MG; Start 01/31/17 at 19:30 Enoxaparin Sodium (Lovenox) 30 mg DAILY SC Last administered on 02/06/17 10:49 ; Admin Dose 30 MG; Start 02/01/17 at 09:00 Morphine Sulfate (Ms Contin (Er)) 15 mg BID PO Last administered on 02/06/17 10:50; Admin Dose 15 MG; Start 01/31/17 at 23:00 Morphine Sulfate (morphine) 4 mg Q4H PRN IV SEVERE PAIN LEVEL 7-10 Last administered on 02/03/17 18:09; Admin Dose 4 MG; Start 01/31/17 at 23:00 Nitroglycerin (Nitroglycerin (Sl Tab) 0.4 Mg) 1 tab Q5M PRN SL ANGINA; Start at 11:30 Pantoprazole (Protonix Tab) 40 mg DAILY@06 PO Last administered on 02/06/17 06 :23; Admin Dose 40 MG; Start 02/02/17 at 06:00 Voriconazole (Vfend) 200 mg BID PO Last administered on 02/06/17 10:50; Admin Dose 200 MG; Start 02/01/17 at 21:00 Senna (Senokot) 1 tab DAILY PRN PO CONSTIPATION Last administered on 02/03/17 20:36; Admin Dose 1 TAB; Start 02/02/17 at 16:00 Lactulose 20 gm 20 gm DAILY PRN PO CONSTIPATION; Start 02/02/17 at 16:00 Vancomycin HCl 1.75 gm/Sodium Chloride 500 ml @ 125 mls/hr Q24H IVPB Last administered on 02/05/17 23:04; Admin Dose 125 MLS/HR; Start 02/02/17 at 23:00 Sodium Chloride 1,000 ml @ 75 mls/hr [id number] IV Last administered on 23:04; Admin Dose 75 MLS/HR; Start 02/04/17 at 08:00 Cefepime HCl (Maxipime 2gm/50 ml (Pmx)) 50 ml @ 100 mls/hr Q12 IVPB ; Start 05/13 at 21:00 DELIO DIALLO MD Feb 06, 2017 17:20
--- NOTE | 2017-02-06 19:34 | RADRPT ---
PROCEDURE: Chest radiograph CLINICAL INDICATION: Check Line Placement. COMPARISON: Radiograph from 02/17/2016. TECHNIQUE: Single frontal chest radiograph. FINDINGS: The left PICC terminates in the superior vena cava in expected position. The right lung is completely opacified. The left lung is clear. The heart is enlarged. No suspicious bone lesion. IMPRESSION: 1. All support lines and tubes in appropriate position. 2. The right lung is completely opacified which may represent a mucous plug or large pleural effusi on. 3. Cardiomegaly. RPTAT: [facility] Physician Major Date Time Electronically viewed and signed by Physician Major on 02/06/2017 19:34 LG/
[2017-02-06] MEDS: VANCOMYCIN 1.75 GM in NS 500 ML IVPB SCH (22:25)
[2017-02-06] MEDS: ATORVASTATIN 20 MG TAB PO SCH (22:29)
--- NOTE | 2017-02-06 22:46 | RADRPT ---
PROCEDURE: Ultrasound guidance for placement of needle in left upper extremity vein. CLINICAL INDICATION: PICC placement. TECHNIQUE: Limited sonography of the left upper extremity was performed. Ultrasound images were recorded and st ored in the patient's medical record. COMPARISON: Chest radiograph of the same day. FINDINGS: The ultrasound images demonstrate a patent left upper extremity vein. The PICC line was inserted by the PICC line nurse. IMPRESSION: 1. Ultrasound guidance for a needle placement in a left upper extremity vein. 2. The visualized left upper extremity vein is patent. RPTAT: HFN .Mark Abraham MD, Date Time Electronically viewed and signed by .Mark Abraham MD, on 02/06/2017 22:46 .N/
--- NOTE | 2017-02-06 22:53 | CONS ---
Date/Time of Note Date/Time of Note DATE: 02/06/17 TIME: 22:52 Assessment/Plan Assessment/Plan Chief Complaint/Hosp Course metastatic lung CANCER, NSCLC - ON CHEMO WITH RELATIVELY STABLE DIS D/W PULM AND RADIOLOGIST CHEMO ON HOLD DURING HOSPITALIZATION HX PANCYTOPENIA POST CHEMO MONITOR BLOOD COUNT CLOSELY LEUKOCYTOSIS PROB 2 TO POST OBSTRUCTIVE PNA HX LEUKOPENIA- POST CHEMO POST NEUPOGEN IN THE PAST POST Hypoxemic respiratory failure IN AUG 2016 , reaction to CARBO severe pneumonia/bronchitis due to enterobacter (09/22/2016-) HX DVT TREATED WITH LOVENOX PT SELF- DC 2 TO HEMOPTYSIS OUTPT History of coronary artery disease. Chronic obstructive pulmonary disease HX TOBACCO SMOKING Problems: Consultation Date/Type/Reason Admit Date/Time Jan 31, 2017 at 18:59 Initial Consult Date 01/31/17 [facility] Referring Provider: TRAMAINE ELLSWORTH 24 HR Interval Summary Free Text/Dictation all noted no new events Exam/Review of Systems Vital Signs Vitals Vital Signs Date Time Temp Pulse Resp B/P Pulse Ox O2 Delivery O2 Flow Rate FiO2 02/06/17 20:22 98.1 79 19 116/59 93 02/06/17 20:21 Nasal Cannula 3.0 02/06/17 17:35 30 Intake and Output 02/05/17 02/05/17 02/06/17 15:00 23:00 07:00 Intake Total 1600 ml 250 ml Output Total 750 ml 550 ml Balance 850 ml -300 ml Exam GENERAL: The patient is alert, awake, complaining of chest pain, shortness of breath. NECK: JVP approximately 9 cm water. CHEST: Upper airway transmitted diffuse rhonchorous sounds. Decreased breath sounds at the bases bilaterally. HEART: Regular rate and rhythm. Normal S1, increased S2. 1/6 systolic murmur. Nondisplaced PMI. ABDOMEN: Positive bowel sounds. Soft. EXTREMITIES: Trace edema, lower extremities bilaterally. 1+ pulses bilateral posterior tibial. Results Result Diagram: 02/06/17 0624 02/06/17 0624 Results 24 hrs Laboratory Tests Test 02/06/17 06:24 White Blood Count 10.5 Red Blood Count 2.55 L Hemoglobin 8.1 L Hematocrit 27.3 L Mean Corpuscular Volume 107.1 H Mean Corpuscular Hemoglobin 31.8 Mean Corpuscular Hemoglobin Concent 29.7 L Red Cell Distribution Width 15.1 H Platelet Count 131 L Mean Platelet Volume 11.0 H Neutrophils % 87.6 H Lymphocytes % 5.6 L Monocytes % 5.7 Eosinophils % 0.1 Basophils % 0.3 Nucleated Red Blood Cells % 0.0 Neutrophils # (Manual) 9.2 H Lymphocytes # 0.6 L Monocytes # 0.6 Eosinophils # 0.0 Basophils # 0.0 Nucleated Red Blood Cells # 0.0 Sodium Level 136 Potassium Level 4.4 Chloride Level 105 Carbon Dioxide Level 28 Anion Gap 7 L Blood Urea Nitrogen 15 Creatinine 1.18 Glucose Level 93 Calcium Level 8.3 L Medications Medications Current Medications Aspirin (Halfprin) 81 mg Q7D PO Last administered on 02/01/17 09:45; Admin Dose 81 MG; Start 02/01/17 at 09:00 Atorvastatin Calcium (Lipitor) 20 mg QHS PO Last administered on 02/06/17 22: 29; Admin Dose 20 MG; Start 01/31/17 at 21:00 Escitalopram Oxalate (Lexapro) 10 mg DAILY PO Last administered on 02/06/17 10 :50; Admin Dose 10 MG; Start 02/01/17 at 09:00 Furosemide (Lasix) 20 mg DAILY PO Last administered on 02/02/17 09:07; Admin Dose 20 MG; Start 02/01/17 at 09:00; Status Future Hold Ondansetron HCl (Zofran Inj) 4 mg Q6 PRN IV NAUSEA Last administered on 13:25; Admin Dose 4 MG; Start 01/31/17 at 19:30 Enoxaparin Sodium (Lovenox) 30 mg DAILY SC Last administered on 02/06/17 10:49 ; Admin Dose 30 MG; Start 02/01/17 at 09:00 Morphine Sulfate (Ms Contin (Er)) 15 mg BID PO Last administered on 02/06/17 10:50; Admin Dose 15 MG; Start 01/31/17 at 23:00 Morphine Sulfate (morphine) 4 mg Q4H PRN IV SEVERE PAIN LEVEL 7-10 Last administered on 02/03/17 18:09; Admin Dose 4 MG; Start 01/31/17 at 23:00 Nitroglycerin (Nitroglycerin (Sl Tab) 0.4 Mg) 1 tab Q5M PRN SL ANGINA; Start at 11:30 Pantoprazole (Protonix Tab) 40 mg DAILY@06 PO Last administered on 02/06/17 06 :23; Admin Dose 40 MG; Start 02/02/17 at 06:00 Voriconazole (Vfend) 200 mg BID PO Last administered on 02/06/17 22:29; Admin Dose 200 MG; Start 02/01/17 at 21:00 Senna (Senokot) 1 tab DAILY PRN PO CONSTIPATION Last administered on 02/03/17 20:36; Admin Dose 1 TAB; Start 02/02/17 at 16:00 Lactulose 20 gm 20 gm DAILY PRN PO CONSTIPATION; Start 02/02/17 at 16:00 Vancomycin HCl 1.75 gm/Sodium Chloride 500 ml @ 125 mls/hr Q24H IVPB Last administered on 02/06/17 22:25; Admin Dose 125 MLS/HR; Start 02/02/17 at 23:00 Sodium Chloride 1,000 ml @ 75 mls/hr [id number] IV Last administered on 23:04; Admin Dose 75 MLS/HR; Start 02/04/17 at 08:00 Cefepime HCl (Maxipime 2gm/50 ml (Pmx)) 50 ml @ 100 mls/hr Q12 IVPB Last administered on 02/06/17 22:25; Admin Dose 100 MLS/HR; Start 02/06/17 at 21:00 IV Flush (NS 10 ml) 10 ml PRN PRN IV IV PROTOCOL; Start 02/06/17 at 20:00 DAHIANA BABCOCK MD Feb 06, 2017 22:53
[2017-02-07] VITALS (15 sets, daily range): BP systolic 110–166; BP diastolic 60–91; PULSE 86–97; RESP 15–23
[2017-02-07] MEDS: LEVALBUTEROL (NEB) 0.63 MG/3 ML AMP HHN SCH ×4 (01:58→19:22)
[2017-02-07] MEDS: SOD CHLORIDE 0.9% 1,000 ML IV SCH ×2 (03:13→16:44)
[2017-02-07] MEDS: PANTOPRAZOLE (EC) 40 MG TAB PO SCH (06:02)
[2017-02-07] MEDS: LEVOTHYROXINE 75 MCG TAB PO SCH (06:02)
[2017-02-07 07:06] LABS: ABNORMAL IP MESSAGE 1; BASOPHILS % 0.2 % (0.0-2.0); HEMATOCRIT 25.7 % (42.0-52.0); LYMPHOCYTES # 0.5 10^3/ul (0.8-2.9); LYMPHOCYTES % 5.1 % (15.0-51.0); MEAN CORPUSCULAR HEMOGLOBIN 33.5 pg (29.0-33.0); MEAN CORPUSCULAR HGB CONC 31.1 g/dl (32.0-37.0); MEAN CORPUSCULAR VOLUME 107.5 fl (82.0-101.0); MEAN PLATELET VOLUME 11.1 fl (7.4-10.4); MONOCYTE # 0.6 10^3/ul (0.3-0.9); MONOCYTES % 5.6 % (0.0-11.0); NEUTROPHILS % 88.4 % (39.0-77.0); PLATELET COUNT 131 10^3/UL (140-415); POSITIVE DIFF @See below; RED BLOOD COUNT 2.39 10^6/ul (4.70-6.10); RED CELL DISTRIBUTION WIDTH 14.9 % (11.5-14.5); WHITE BLOOD COUNT 10.6 10^3/ul (4.8-10.8)
[2017-02-07 07:36] LABS: CALCIUM 8.2 mg/dl (8.4-10.2); CREATININE 1.17 mg/dl (0.61-1.24); POTASSIUM 4.5 mmol/L (3.5-5.1)
[2017-02-07] MEDS: ESCITALOPRAM 10 MG TAB PO SCH (09:33)
[2017-02-07] MEDS: CEFEPIME 2GM/50 ML (PMX) 50 ML IVPB SCH ×2 (09:33→21:18)
[2017-02-07] MEDS: morphine (ER) 15 MG TAB PO SCH ×2 (09:34→21:18)
[2017-02-07] MEDS: VORICONAZOLE 200 MG TAB PO SCH ×2 (09:34→21:17)
--- NOTE | 2017-02-07 09:34 | CONS ---
Date/Time of Note Date/Time of Note DATE: 02/07/17 TIME: 09:31 Assessment/Plan Assessment/Plan Additional Assessment/Plan Assessment and recommendations; 1. Patient admitted with extensive pneumonia involving the right lung likely postobstructive in etiology due to metastatic non-small cell lung cancer. Currently on appropriate broad-spectrum antibiotic coverage. 2. Likely underlying sleep apnea. Patient doing fairly well on BiPAP. Continue current treatment. Will obtain follow-up chest x-ray. Consultation Date/Type/Reason Admit Date/Time Jan 31, 2017 at 18:59 Initial Consult Date 02/01/17 Type of Consultation: Pulmonary Referring Provider: TRAMAINE ELLSWORTH 24 HR Interval Summary Free Text/Dictation Patient condition stable. Still requiring BiPAP as needed. Denies any chest pain. Coughing. Hemoptysis. General exam; elderly male, appears quite overweight, currently in no distress. Awake and alert. Exam/Review of Systems Vital Signs Vitals Vital Signs Date Time Temp Pulse Resp B/P Pulse Ox O2 Delivery O2 Flow Rate FiO2 02/07/17 09:16 95 02/07/17 08:55 5.0 02/07/17 08:53 20 94 Nasal Cannula 02/07/17 07:51 97.9 166/91 02/07/17 04:45 30 Intake and Output 02/06/17 02/06/17 02/07/17 15:00 23:00 07:00 Intake Total 400 ml 120 ml Output Total 650 ml Balance 400 ml -530 ml Exam HEENT exam; supple neck, no JVD. No lymphadenopathy. Midline trachea. No thyromegaly. Patient has fair dentition. Chest exam; diminished breath sounds right lung. Left lung is clear to auscultation. S1-S2 audible, no murmurs. Regular rhythm. Abdomen exam; soft, different. No organomegaly. Bowel sounds audible. Extremity exam; no peripheral edema. RECORD CUTTER exam; no focal deficit. Results Result Diagram: 02/07/1721 02/07/17 0621 Results 24 hrs Laboratory Tests Test 02/07/17 06:21 White Blood Count 10.6 Red Blood Count 2.39 L Hemoglobin 8.0 L Hematocrit 25.7 L Mean Corpuscular Volume 107.5 H Mean Corpuscular Hemoglobin 33.5 H Mean Corpuscular Hemoglobin Concent 31.1 L Red Cell Distribution Width 14.9 H Platelet Count 131 L Mean Platelet Volume 11.1 H Neutrophils % 88.4 H Lymphocytes % 5.1 L Monocytes % 5.6 Eosinophils % 0.0 Basophils % 0.2 Nucleated Red Blood Cells % 0.0 Neutrophils # (Manual) 9.4 H Lymphocytes # 0.5 L Monocytes # 0.6 Eosinophils # 0.0 Basophils # 0.0 Nucleated Red Blood Cells # 0.0 Sodium Level 136 Potassium Level 4.5 Chloride Level 106 Carbon Dioxide Level 28 Anion Gap 7 L Blood Urea Nitrogen 13 Creatinine 1.17 Glucose Level 102 Calcium Level 8.2 L Medications Medications Current Medications Aspirin (Halfprin) 81 mg Q7D PO Last administered on 02/01/17 09:45; Admin Dose 81 MG; Start 02/01/17 at 09:00 Atorvastatin Calcium (Lipitor) 20 mg QHS PO Last administered on 02/06/17 22: 29; Admin Dose 20 MG; Start 01/31/17 at 21:00 Escitalopram Oxalate (Lexapro) 10 mg DAILY PO Last administered on 02/06/17 10 :50; Admin Dose 10 MG; Start 02/01/17 at 09:00 Furosemide (Lasix) 20 mg DAILY PO Last administered on 02/02/17 09:07; Admin Dose 20 MG; Start 02/01/17 at 09:00; Status Future Hold Ondansetron HCl (Zofran Inj) 4 mg Q6 PRN IV NAUSEA Last administered on 13:25; Admin Dose 4 MG; Start 01/31/17 at 19:30 Enoxaparin Sodium (Lovenox) 30 mg DAILY SC Last administered on 02/06/17 10:49 ; Admin Dose 30 MG; Start 02/01/17 at 09:00 Morphine Sulfate (Ms Contin (Er)) 15 mg BID PO Last administered on 02/06/17 10:50; Admin Dose 15 MG; Start 01/31/17 at 23:00 Morphine Sulfate (morphine) 4 mg Q4H PRN IV SEVERE PAIN LEVEL 7-10 Last administered on 02/03/17 18:09; Admin Dose 4 MG; Start 01/31/17 at 23:00 Nitroglycerin (Nitroglycerin (Sl Tab) 0.4 Mg) 1 tab Q5M PRN SL ANGINA; Start at 11:30 Pantoprazole (Protonix Tab) 40 mg DAILY@06 PO Last administered on 02/07/17 06 :02; Admin Dose 40 MG; Start 02/02/17 at 06:00 Voriconazole (Vfend) 200 mg BID PO Last administered on 02/06/17 22:29; Admin Dose 200 MG; Start 02/01/17 at 21:00 Senna (Senokot) 1 tab DAILY PRN PO CONSTIPATION Last administered on 02/03/17 20:36; Admin Dose 1 TAB; Start 02/02/17 at 16:00 Lactulose 20 gm 20 gm DAILY PRN PO CONSTIPATION; Start 02/02/17 at 16:00 Vancomycin HCl 1.75 gm/Sodium Chloride 500 ml @ 125 mls/hr Q24H IVPB Last administered on 02/06/17 22:25; Admin Dose 125 MLS/HR; Start 02/02/17 at 23:00 Sodium Chloride 1,000 ml @ 75 mls/hr [id number] IV Last administered on 03:13; Admin Dose 75 MLS/HR; Start 02/04/17 at 08:00 Cefepime HCl (Maxipime 2gm/50 ml (Pmx)) 50 ml @ 100 mls/hr Q12 IVPB Last administered on 02/06/17 22:25; Admin Dose 100 MLS/HR; Start 02/06/17 at 21:00 IV Flush (NS 10 ml) 10 ml PRN PRN IV IV PROTOCOL; Start 02/06/17 at 20:00 ISMA CUTLER Feb 07, 2017 09:34
[2017-02-07] MEDS: ENOXAPARIN 30 MG/0.3 ML SYG SC SCH (09:35)
--- NOTE | 2017-02-07 11:50 | PN ---
Date/Time of Note Date/Time of Note DATE: 02/07/17 TIME: 11:45 Assessment/Plan VTE Prophylaxis VTE Prophylaxis Intervention: other Lines/Catheters IV [facility]ter Type (from [facility] PICC Line Urinary Cath still in place: No Assessment/Plan Chief Complaint/Hosp Course - Problems: Assessment/Plan - hypotension-resolved - Shortness of breath- tolerates O2 3L nc. - Acute appearing nonocclusive deep venous thrombosis in the right subclavian vein- on Lovenox - Acute respiratory failure - pulmonary follows - cardiology follows - BIPAP. - Metastatic lung Cancer - per Oncology- Dr Valiente - BLE trace edema - will do Doppler r/o DVT- DVT neg - Anemia - Monitor CBC - Hyponatremia - IVF- - nephrology follows - Post Hypoxemic respiratory failure IN AUG 2016 , - reaction to CARBO - Severe pneumonia/bronchitis due to enterobacter (09/22/2016-) - Hx Afib - HX Pancytopenia - sp chemo - Monitor CBC - Leukocytosis- possibly sec to post obstructive PNA - per ID consult - HX Leukopenia - SP chemo - SP Neupogen - HX DVT- sp Lovenox -- History of coronary artery disease. - Chronic obstructive pulmonary disease - HX TOBACCO SMOKING Subjective 24 Hr Interval Summary Free Text/Dictation H/H dropping, will do stool OB, dR Sweeney FOLLOWS, BIPAP prn, on o2 5 L NC- tolerating well. will order PT eval- dw staff Respiratory: shortness of breath Cardiovascular: no complaints Gastrointestinal: no complaints Genitourinary: no complaints Musculoskeletal: back pain Exam/Review of Systems Vital Signs Vitals Vital Signs Date Time Temp Pulse Resp B/P Pulse Ox O2 Delivery O2 Flow Rate FiO2 02/07/17 09:16 95 02/07/17 08:55 5.0 02/07/17 08:53 20 94 Nasal Cannula 02/07/17 07:51 97.9 166/91 02/07/17 04:45 30 Intake and Output 02/06/17 02/06/17 02/07/17 15:00 23:00 07:00 Intake Total 400 ml 120 ml Output Total 650 ml Balance 400 ml -530 ml Exam Constitutional: alert, obese Respiratory: diminished breath sounds Cardiovascular: nl pulses, regular rate and rhythm Gastrointestinal: non-tender, soft Musculoskeletal: nl extremities to inspection Extremities: normal pulses Neurological: nl speech Results Result Diagram: 02/07/17 0621 02/07/17 0621 Results 24 hrs Laboratory Tests Test 02/07/17 06:21 White Blood Count 10.6 Red Blood Count 2.39 L Hemoglobin 8.0 L Hematocrit 25.7 L Mean Corpuscular Volume 107.5 H Mean Corpuscular Hemoglobin 33.5 H Mean Corpuscular Hemoglobin Concent 31.1 L Red Cell Distribution Width 14.9 H Platelet Count 131 L Mean Platelet Volume 11.1 H Neutrophils % 88.4 H Lymphocytes % 5.1 L Monocytes % 5.6 Eosinophils % 0.0 Basophils % 0.2 Nucleated Red Blood Cells % 0.0 Neutrophils # (Manual) 9.4 H Lymphocytes # 0.5 L Monocytes # 0.6 Eosinophils # 0.0 Basophils # 0.0 Nucleated Red Blood Cells # 0.0 Sodium Level 136 Potassium Level 4.5 Chloride Level 106 Carbon Dioxide Level 28 Anion Gap 7 L Blood Urea Nitrogen 13 Creatinine 1.17 Glucose Level 102 Calcium Level 8.2 L Medications Medications Current Medications Aspirin (Halfprin) 81 mg Q7D PO Last administered on 02/01/17 09:45; Admin Dose 81 MG; Start 02/01/17 at 09:00 Atorvastatin Calcium (Lipitor) 20 mg QHS PO Last administered on 02/06/17 22: 29; Admin Dose 20 MG; Start 01/31/17 at 21:00 Escitalopram Oxalate (Lexapro) 10 mg DAILY PO Last administered on 02/07/17 09 :33; Admin Dose 10 MG; Start 02/01/17 at 09:00 Furosemide (Lasix) 20 mg DAILY PO Last administered on 02/02/17 09:07; Admin Dose 20 MG; Start 02/01/17 at 09:00; Status Future Hold Ondansetron HCl (Zofran Inj) 4 mg Q6 PRN IV NAUSEA Last administered on 13:25; Admin Dose 4 MG; Start 01/31/17 at 19:30 Enoxaparin Sodium (Lovenox) 30 mg DAILY SC Last administered on 02/07/17 09:35 ; Admin Dose 30 MG; Start 02/01/17 at 09:00 Morphine Sulfate (Ms Contin (Er)) 15 mg BID PO Last administered on 02/07/17 09:34; Admin Dose 15 MG; Start 01/31/17 at 23:00 Morphine Sulfate (morphine) 4 mg Q4H PRN IV SEVERE PAIN LEVEL 7-10 Last administered on 02/03/17 18:09; Admin Dose 4 MG; Start 01/31/17 at 23:00 Nitroglycerin (Nitroglycerin (Sl Tab) 0.4 Mg) 1 tab Q5M PRN SL ANGINA; Start at 11:30 Pantoprazole (Protonix Tab) 40 mg DAILY@06 PO Last administered on 02/07/17 06 :02; Admin Dose 40 MG; Start 02/02/17 at 06:00 Voriconazole (Vfend) 200 mg BID PO Last administered on 02/07/17 09:34; Admin Dose 200 MG; Start 02/01/17 at 21:00 Senna (Senokot) 1 tab DAILY PRN PO CONSTIPATION Last administered on 02/03/17 20:36; Admin Dose 1 TAB; Start 02/02/17 at 16:00 Lactulose 20 gm 20 gm DAILY PRN PO CONSTIPATION; Start 02/02/17 at 16:00 Vancomycin HCl 1.75 gm/Sodium Chloride 500 ml @ 125 mls/hr Q24H IVPB Last administered on 02/06/17 22:25; Admin Dose 125 MLS/HR; Start 02/02/17 at 23:00 Sodium Chloride 1,000 ml @ 75 mls/hr [id number] IV Last administered on 03:13; Admin Dose 75 MLS/HR; Start 02/04/17 at 08:00 Cefepime HCl (Maxipime 2gm/50 ml (Pmx)) 50 ml @ 100 mls/hr Q12 IVPB Last administered on 02/07/17 09:33; Admin Dose 100 MLS/HR; Start 02/06/17 at 21:00 IV Flush (NS 10 ml) 10 ml PRN PRN IV IV PROTOCOL; Start 02/06/17 at 20:00 TRAMAINE ELLSWORTH Feb 07, 2017 11:50
[2017-02-07] MEDS ORDERED: OXYMETAZOLINE 0.05% 15 ML NAS SPRAY NASAL PRN (15:00)
--- NOTE | 2017-02-07 15:29 | CONS ---
Date/Time of Note Date/Time of Note DATE: 02/07/17 TIME: 15:27 Assessment/Plan Assessment/Plan Chief Complaint/Hosp Course IMPRESSION: 1. Chest pain. Assess for acute coronary syndrome in a patient with lung cancer, undergoing chemotherapy, likely secondary to lung cancer.-negative trop x3 2. Abnormal electrocardiogram with nonspecific ST and T-wave abnormalities, assess for acute coronary syndrome. 3. Bradycardia, transient while on beta matthew. 4. Hypotension-today 5. Shortness of breath. Rule out congestive heart failure. 6. Lung cancer with ongoing chemotherapy. 7. Leukocytosis. 8. Anemia. 9. Thrombocytopenia. Recc: -Tel -Continue asa as tolerated -Continue abx;'s and f/u cx data -Continue statin -Dose lasix and follow volume status cloesly Problems: Consultation Date/Type/Reason Admit Date/Time Jan 31, 2017 at 18:59 Initial Consult Date 02/01/17 Type of Consultation: cardiology Reason for Consultation chest pain Referring Provider: TRAMAINE ELLSWORTH Exam/Review of Systems Vital Signs Vitals Vital Signs Date Time Temp Pulse Resp B/P Pulse Ox O2 Delivery O2 Flow Rate FiO2 02/07/17 15:13 92 20 93 Nasal Cannula 5.0 02/07/17 11:59 97.9 110/67 02/07/17 04:45 30 Intake and Output 02/06/17 02/06/17 02/07/17 15:00 23:00 07:00 Intake Total 400 ml 120 ml Output Total 650 ml Balance 400 ml -530 ml Exam Review of Systems: CONSTITUTIONAL: No fevers, chills. PULMONARY: ongoing sob CARDIOVASCULAR: No chest pain/palpitations GASTROINTESTINAL: No nausea/vomiting. GENITOURINARY: No hematuria/dysuria. MUSCULOSKELETAL: No myagias/arthalgias. PSYCHIATRIC: The patient denies depression. NEUROLOGIC: No weakness Constitutional: alert Psych: no complaints Head: normocephalic ENMT: mucosa pink and moist Neck: jvd (9 cm water), supple Respiratory: diminished breath sounds (at bases/B) Cardiovascular: regular rate and rhythm Gastrointestinal: non-tender, soft Musculoskeletal: muscle tone (normal) Extremities: edema (none) Neurological: other (No focal deficits) Results Result Diagram: 02/07/17 0621 02/07/17 0621 Results 24 hrs Laboratory Tests Test 02/07/17 06:21 White Blood Count 10.6 Red Blood Count 2.39 L Hemoglobin 8.0 L Hematocrit 25.7 L Mean Corpuscular Volume 107.5 H Mean Corpuscular Hemoglobin 33.5 H Mean Corpuscular Hemoglobin Concent 31.1 L Red Cell Distribution Width 14.9 H Platelet Count 131 L Mean Platelet Volume 11.1 H Neutrophils % 88.4 H Lymphocytes % 5.1 L Monocytes % 5.6 Eosinophils % 0.0 Basophils % 0.2 Nucleated Red Blood Cells % 0.0 Neutrophils # (Manual) 9.4 H Lymphocytes # 0.5 L Monocytes # 0.6 Eosinophils # 0.0 Basophils # 0.0 Nucleated Red Blood Cells # 0.0 Sodium Level 136 Potassium Level 4.5 Chloride Level 106 Carbon Dioxide Level 28 Anion Gap 7 L Blood Urea Nitrogen 13 Creatinine 1.17 Glucose Level 102 Calcium Level 8.2 L Medications Medications Current Medications Aspirin (Halfprin) 81 mg Q7D PO Last administered on 02/01/17 09:45; Admin Dose 81 MG; Start 02/01/17 at 09:00 Atorvastatin Calcium (Lipitor) 20 mg QHS PO Last administered on 02/06/17 22: 29; Admin Dose 20 MG; Start 01/31/17 at 21:00 Escitalopram Oxalate (Lexapro) 10 mg DAILY PO Last administered on 02/07/17 09 :33; Admin Dose 10 MG; Start 02/01/17 at 09:00 Furosemide (Lasix) 20 mg DAILY PO Last administered on 02/02/17 09:07; Admin Dose 20 MG; Start 02/01/17 at 09:00; Status Future Hold Ondansetron HCl (Zofran Inj) 4 mg Q6 PRN IV NAUSEA Last administered on 13:25; Admin Dose 4 MG; Start 01/31/17 at 19:30 Enoxaparin Sodium (Lovenox) 30 mg DAILY SC Last administered on 02/07/17 09:35 ; Admin Dose 30 MG; Start 02/01/17 at 09:00 Morphine Sulfate (Ms Contin (Er)) 15 mg BID PO Last administered on 02/07/17 09:34; Admin Dose 15 MG; Start 01/31/17 at 23:00 Morphine Sulfate (morphine) 4 mg Q4H PRN IV SEVERE PAIN LEVEL 7-10 Last administered on 02/03/17 18:09; Admin Dose 4 MG; Start 01/31/17 at 23:00 Nitroglycerin (Nitroglycerin (Sl Tab) 0.4 Mg) 1 tab Q5M PRN SL ANGINA; Start at 11:30 Pantoprazole (Protonix Tab) 40 mg DAILY@06 PO Last administered on 02/07/17 06 :02; Admin Dose 40 MG; Start 02/02/17 at 06:00 Voriconazole (Vfend) 200 mg BID PO Last administered on 02/07/17 09:34; Admin Dose 200 MG; Start 02/01/17 at 21:00 Senna (Senokot) 1 tab DAILY PRN PO CONSTIPATION Last administered on 02/03/17 20:36; Admin Dose 1 TAB; Start 02/02/17 at 16:00 Lactulose 20 gm 20 gm DAILY PRN PO CONSTIPATION; Start 02/02/17 at 16:00 Vancomycin HCl 1.75 gm/Sodium Chloride 500 ml @ 125 mls/hr Q24H IVPB Last administered on 02/06/17 22:25; Admin Dose 125 MLS/HR; Start 02/02/17 at 23:00 Sodium Chloride 1,000 ml @ 75 mls/hr [id number] IV Last administered on 03:13; Admin Dose 75 MLS/HR; Start 02/04/17 at 08:00 Cefepime HCl (Maxipime 2gm/50 ml (Pmx)) 50 ml @ 100 mls/hr Q12 IVPB Last administered on 02/07/17 09:33; Admin Dose 100 MLS/HR; Start 02/06/17 at 21:00 IV Flush (NS 10 ml) 10 ml PRN PRN IV IV PROTOCOL; Start 02/06/17 at 20:00 Oxymetazoline HCl (Afrin [place]) 2 spray BID NASAL ; Start 02/07/17 at 15:00 MARIAA ÁLVAREZ Feb 07, 2017 15:29
[2017-02-07] MEDS ORDERED: FUROSEMIDE 20 MG INJ IV ONE (15:30)
--- NOTE | 2017-02-07 16:04 | CONS ---
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 Aspergillus antibody was >1:64 but aspergillus antigen in serum by EIA was negative during his last admission. - h/o DVT of RUE - b/l knee pain due to DJD - h/o post-obstructive pneumonia - h/o HTN, CAD, hyperlipidemia - h/o paroxysmal A fib - h/o DVT in LUE - h/o hypothyroidism with elevated TSH level - HIV negative in 2013 recommendations: - pending results: cocci serology, - continue IV vancomycin and cefepime (-) - continue voriconazole for chronic suppression of aspergillus given his immunocompromised state Problems: Consultation Date/Type/Reason Admit Date/Time Jan 31, 2017 at 18:59 Initial Consult Date 02/01/17 Type of Consultation: id Referring Provider: TRAMAINE ELLSWORTH Exam/Review of Systems Vital Signs Vitals Vital Signs Date Time Temp Pulse Resp B/P Pulse Ox O2 Delivery O2 Flow Rate FiO2 02/07/17 15:51 97.9 88 20 115/60 100 02/07/17 15:13 Nasal Cannula 5.0 02/07/17 04:45 30 Intake and Output 02/06/17 02/06/17 02/07/17 15:00 23:00 07:00 Intake Total 400 ml 120 ml Output Total 650 ml Balance 400 ml -530 ml Results Result Diagram: 02/07/17 0621 02/07/17 0621 Results 24 hrs Laboratory Tests Test 02/07/17 06:21 White Blood Count 10.6 Red Blood Count 2.39 L Hemoglobin 8.0 L Hematocrit 25.7 L Mean Corpuscular Volume 107.5 H Mean Corpuscular Hemoglobin 33.5 H Mean Corpuscular Hemoglobin Concent 31.1 L Red Cell Distribution Width 14.9 H Platelet Count 131 L Mean Platelet Volume 11.1 H Neutrophils % 88.4 H Lymphocytes % 5.1 L Monocytes % 5.6 Eosinophils % 0.0 Basophils % 0.2 Nucleated Red Blood Cells % 0.0 Neutrophils # (Manual) 9.4 H Lymphocytes # 0.5 L Monocytes # 0.6 Eosinophils # 0.0 Basophils # 0.0 Nucleated Red Blood Cells # 0.0 Sodium Level 136 Potassium Level 4.5 Chloride Level 106 Carbon Dioxide Level 28 Anion Gap 7 L Blood Urea Nitrogen 13 Creatinine 1.17 Glucose Level 102 Calcium Level 8.2 L Medications Medications Current Medications Aspirin (Halfprin) 81 mg Q7D PO Last administered on 02/01/17 09:45; Admin Dose 81 MG; Start 02/01/17 at 09:00 Atorvastatin Calcium (Lipitor) 20 mg QHS PO Last administered on 02/06/17 22: 29; Admin Dose 20 MG; Start 01/31/17 at 21:00 Escitalopram Oxalate (Lexapro) 10 mg DAILY PO Last administered on 02/07/17 09 :33; Admin Dose 10 MG; Start 02/01/17 at 09:00 Furosemide (Lasix) 20 mg DAILY PO Last administered on 02/02/17 09:07; Admin Dose 20 MG; Start 02/01/17 at 09:00; Status Future Hold Ondansetron HCl (Zofran Inj) 4 mg Q6 PRN IV NAUSEA Last administered on 13:25; Admin Dose 4 MG; Start 01/31/17 at 19:30 Enoxaparin Sodium (Lovenox) 30 mg DAILY SC Last administered on 02/07/17 09:35 ; Admin Dose 30 MG; Start 02/01/17 at 09:00 Morphine Sulfate (Ms Contin (Er)) 15 mg BID PO Last administered on 02/07/17 09:34; Admin Dose 15 MG; Start 01/31/17 at 23:00 Morphine Sulfate (morphine) 4 mg Q4H PRN IV SEVERE PAIN LEVEL 7-10 Last administered on 02/03/17 18:09; Admin Dose 4 MG; Start 01/31/17 at 23:00 Nitroglycerin (Nitroglycerin (Sl Tab) 0.4 Mg) 1 tab Q5M PRN SL ANGINA; Start at 11:30 Pantoprazole (Protonix Tab) 40 mg DAILY@06 PO Last administered on 02/07/17 06 :02; Admin Dose 40 MG; Start 02/02/17 at 06:00 Voriconazole (Vfend) 200 mg BID PO Last administered on 02/07/17 09:34; Admin Dose 200 MG; Start 02/01/17 at 21:00 Senna (Senokot) 1 tab DAILY PRN PO CONSTIPATION Last administered on 02/03/17 20:36; Admin Dose 1 TAB; Start 02/02/17 at 16:00 Lactulose 20 gm 20 gm DAILY PRN PO CONSTIPATION; Start 02/02/17 at 16:00 Vancomycin HCl 1.75 gm/Sodium Chloride 500 ml @ 125 mls/hr Q24H IVPB Last administered on 02/06/17 22:25; Admin Dose 125 MLS/HR; Start 02/02/17 at 23:00 Sodium Chloride 1,000 ml @ 75 mls/hr [id number] IV Last administered on 03:13; Admin Dose 75 MLS/HR; Start 02/04/17 at 08:00 Cefepime HCl (Maxipime 2gm/50 ml (Pmx)) 50 ml @ 100 mls/hr Q12 IVPB Last administered on 02/07/17 09:33; Admin Dose 100 MLS/HR; Start 02/06/17 at 21:00 IV Flush (NS 10 ml) 10 ml PRN PRN IV IV PROTOCOL; Start 02/06/17 at 20:00 Oxymetazoline HCl (Afrin [place]) 2 spray BID NASAL ; Start 02/07/17 at 15:00 DELIO DIALLO MD Feb 07, 2017 16:04
--- NOTE | 2017-02-07 17:02 | CONS ---
Date/Time of Note Date/Time of Note DATE: 02/07/17 TIME: 17:01 Assessment/Plan Assessment/Plan Chief Complaint/Hosp Course metastatic lung CANCER, NSCLC - ON CHEMO WITH RELATIVELY STABLE DIS D/W PULM AND RADIOLOGIST CHEMO ON HOLD DURING HOSPITALIZATION HX PANCYTOPENIA POST CHEMO MONITOR BLOOD COUNT CLOSELY LEUKOCYTOSIS PROB 2 TO POST OBSTRUCTIVE PNA HX LEUKOPENIA- POST CHEMO POST NEUPOGEN IN THE PAST POST Hypoxemic respiratory failure IN AUG 2016 , reaction to CARBO severe pneumonia/bronchitis due to enterobacter (09/22/2016-) HX DVT TREATED WITH LOVENOX PT SELF- DC 2 TO HEMOPTYSIS OUTPT History of coronary artery disease. Chronic obstructive pulmonary disease HX TOBACCO SMOKING Problems: Consultation Date/Type/Reason Admit Date/Time Jan 31, 2017 at 18:59 Initial Consult Date 01/31/17 [facility] Referring Provider: TRAMAINE ELLSWORTH 24 HR Interval Summary Free Text/Dictation all noted no new events Exam/Review of Systems Vital Signs Vitals Vital Signs Date Time Temp Pulse Resp B/P Pulse Ox O2 Delivery O2 Flow Rate FiO2 02/07/17 16:20 87 02/07/17 15:51 97.9 20 115/60 100 02/07/17 15:13 Nasal Cannula 5.0 02/07/17 04:45 30 Intake and Output 02/06/17 02/06/17 02/07/17 15:00 23:00 07:00 Intake Total 400 ml 120 ml Output Total 650 ml Balance 400 ml -530 ml Exam GENERAL: The patient is alert, awake, complaining of chest pain, shortness of breath. NECK: JVP approximately 9 cm water. CHEST: Upper airway transmitted diffuse rhonchorous sounds. Decreased breath sounds at the bases bilaterally. HEART: Regular rate and rhythm. Normal S1, increased S2. 1/6 systolic murmur. Nondisplaced PMI. ABDOMEN: Positive bowel sounds. Soft. EXTREMITIES: Trace edema, lower extremities bilaterally. 1+ pulses bilateral posterior tibial. Results Result Diagram: 02/07/1762002/07/17 0621 Results 24 hrs Laboratory Tests Test 02/07/17 06:21 White Blood Count 10.6 Red Blood Count 2.39 L Hemoglobin 8.0 L Hematocrit 25.7 L Mean Corpuscular Volume 107.5 H Mean Corpuscular Hemoglobin 33.5 H Mean Corpuscular Hemoglobin Concent 31.1 L Red Cell Distribution Width 14.9 H Platelet Count 131 L Mean Platelet Volume 11.1 H Neutrophils % 88.4 H Lymphocytes % 5.1 L Monocytes % 5.6 Eosinophils % 0.0 Basophils % 0.2 Nucleated Red Blood Cells % 0.0 Neutrophils # (Manual) 9.4 H Lymphocytes # 0.5 L Monocytes # 0.6 Eosinophils # 0.0 Basophils # 0.0 Nucleated Red Blood Cells # 0.0 Sodium Level 136 Potassium Level 4.5 Chloride Level 106 Carbon Dioxide Level 28 Anion Gap 7 L Blood Urea Nitrogen 13 Creatinine 1.17 Glucose Level 102 Calcium Level 8.2 L Medications Medications Current Medications Aspirin (Halfprin) 81 mg Q7D PO Last administered on 02/01/17 09:45; Admin Dose 81 MG; Start 02/01/17 at 09:00 Atorvastatin Calcium (Lipitor) 20 mg QHS PO Last administered on 02/06/17 22: 29; Admin Dose 20 MG; Start 01/31/17 at 21:00 Escitalopram Oxalate (Lexapro) 10 mg DAILY PO Last administered on 02/07/17 09 :33; Admin Dose 10 MG; Start 02/01/17 at 09:00 Furosemide (Lasix) 20 mg DAILY PO Last administered on 02/02/17 09:07; Admin Dose 20 MG; Start 02/01/17 at 09:00; Status Future Hold Ondansetron HCl (Zofran Inj) 4 mg Q6 PRN IV NAUSEA Last administered on 13:25; Admin Dose 4 MG; Start 01/31/17 at 19:30 Enoxaparin Sodium (Lovenox) 30 mg DAILY SC Last administered on 02/07/17 09:35 ; Admin Dose 30 MG; Start 02/01/17 at 09:00 Morphine Sulfate (Ms Contin (Er)) 15 mg BID PO Last administered on 02/07/17 09:34; Admin Dose 15 MG; Start 01/31/17 at 23:00 Morphine Sulfate (morphine) 4 mg Q4H PRN IV SEVERE PAIN LEVEL 7-10 Last administered on 02/03/17 18:09; Admin Dose 4 MG; Start 01/31/17 at 23:00 Nitroglycerin (Nitroglycerin (Sl Tab) 0.4 Mg) 1 tab Q5M PRN SL ANGINA; Start at 11:30 Pantoprazole (Protonix Tab) 40 mg DAILY@06 PO Last administered on 02/07/17 06 :02; Admin Dose 40 MG; Start 02/02/17 at 06:00 Voriconazole (Vfend) 200 mg BID PO Last administered on 02/07/17 09:34; Admin Dose 200 MG; Start 02/01/17 at 21:00 Senna (Senokot) 1 tab DAILY PRN PO CONSTIPATION Last administered on 02/03/17 20:36; Admin Dose 1 TAB; Start 02/02/17 at 16:00 Lactulose 20 gm 20 gm DAILY PRN PO CONSTIPATION; Start 02/02/17 at 16:00 Vancomycin HCl 1.75 gm/Sodium Chloride 500 ml @ 125 mls/hr Q24H IVPB Last administered on 02/06/17 22:25; Admin Dose 125 MLS/HR; Start 02/02/17 at 23:00 Sodium Chloride 1,000 ml @ 75 mls/hr [id number] IV Last administered on 16:44; Admin Dose 75 MLS/HR; Start 02/04/17 at 08:00 Cefepime HCl (Maxipime 2gm/50 ml (Pmx)) 50 ml @ 100 mls/hr Q12 IVPB Last administered on 02/07/17 09:33; Admin Dose 100 MLS/HR; Start 02/06/17 at 21:00 IV Flush (NS 10 ml) 10 ml PRN PRN IV IV PROTOCOL; Start 02/06/17 at 20:00 Oxymetazoline HCl (Afrin [place]) 2 spray BID NASAL ; Start 02/07/17 at 15:00 DAHIANA BABCOCK MD Feb 07, 2017 17:02
[2017-02-07] MEDS: OXYMETAZOLINE 0.05% 15 ML NAS SPRAY NASAL SCH ×2 (18:00→21:00)
[2017-02-07 18:22] LABS: AADO2 Arterial 89.8 mmHg (7.0-24.0); Allen Test ACCEPTAB; Arterial Base Excess 1.3 mmol/L (-3.0-3); Arterial COHb 0.3 % (0.0-3.0); Arterial Fraction of Oxyhgb 97.1 % (93.0-99.0); Arterial HCO3 27.4 mmol/L (22.0-26.0); Arterial MetHb 0.2 % (0.0-1.5); Arterial Total Hemglobin 9.8 g/dl (12.0-18.0); MODE NASAL CANNULA
[2017-02-07] MEDS ORDERED: SOD CHLORIDE 0.9% 100 ML ONE (18:49)
[2017-02-07] MEDS: ATORVASTATIN 20 MG TAB PO SCH (21:18)
[2017-02-07] MEDS: VANCOMYCIN 1.75 GM in NS 500 ML IVPB SCH (23:53)
[2017-02-08] VITALS (16 sets, daily range): BP systolic 93–121; BP diastolic 55–75; PULSE 82–96; RESP 15–22
[2017-02-08] MEDS: LEVALBUTEROL (NEB) 0.63 MG/3 ML AMP HHN SCH ×4 (01:36→19:31)
[2017-02-08] MEDS: SOD CHLORIDE 0.9% 1,000 ML IV SCH ×2 (05:20→18:40)
[2017-02-08] MEDS: PANTOPRAZOLE (EC) 40 MG TAB PO SCH (06:41)
[2017-02-08] MEDS: LEVOTHYROXINE 75 MCG TAB PO SCH (06:41)
[2017-02-08 08:15] LABS: BASOPHILS % 0.3 % (0.0-2.0); EOSINOPHILS % 0.1 % (0.0-7.0); HEMATOCRIT 29.4 % (42.0-52.0); HEMOGLOBIN 8.6 g/dl (14.0-18.0); LYMPHOCYTES % 11.1 % (15.0-51.0); MEAN CORPUSCULAR HEMOGLOBIN 31.6 pg (29.0-33.0); MEAN CORPUSCULAR HGB CONC 29.3 g/dl (32.0-37.0); MEAN CORPUSCULAR VOLUME 108.1 fl (82.0-101.0); MEAN PLATELET VOLUME 11.2 fl (7.4-10.4); MONOCYTE # 0.7 10^3/ul (0.3-0.9); MONOCYTES % 7.4 % (0.0-11.0); NEUTROPHIL # 7.1 10^3/ul (1.6-7.5); NEUTROPHILS % 80.4 % (39.0-77.0); PLATELET COUNT 143 10^3/UL (140-415); RED BLOOD COUNT 2.72 10^6/ul (4.70-6.10); RED CELL DISTRIBUTION WIDTH 15.2 % (11.5-14.5); WHITE BLOOD COUNT 8.9 10^3/ul (4.8-10.8)
[2017-02-08 08:36] LABS: CALCIUM 8.4 mg/dl (8.4-10.2); CREATININE 1.16 mg/dl (0.61-1.24); POTASSIUM 4.2 mmol/L (3.5-5.1)
[2017-02-08] MEDS: morphine (ER) 15 MG TAB PO SCH ×2 (09:00→11:10)
[2017-02-08] MEDS: CEFEPIME 2GM/50 ML (PMX) 50 ML IVPB SCH ×2 (09:04→20:41)
[2017-02-08] MEDS: ASPIRIN (EC) 81 MG TAB PO SCH (09:04)
[2017-02-08] MEDS: VORICONAZOLE 200 MG TAB PO SCH ×2 (09:04→20:41)
[2017-02-08] MEDS: ESCITALOPRAM 10 MG TAB PO SCH (09:04)
[2017-02-08] MEDS: OXYMETAZOLINE 0.05% 15 ML NAS SPRAY NASAL SCH ×2 (09:04→21:00)
[2017-02-08] MEDS: ENOXAPARIN 30 MG/0.3 ML SYG SC SCH (09:05)
--- NOTE | 2017-02-08 10:19 | RADRPT ---
PROCEDURE: XR Chest. CLINICAL INDICATION: Shortness of breath. TECHNIQUE: Single frontal view. COMPARISON: 02/06/2017. FINDINGS: The left arm PICC line remains in satisfactory position. There is complete opacification of the righ t hemithorax, unchanged. The left lung is clear. The heart size is normal. There is no pleural effusion. There is no pneumothorax. IMPRESSION: 1. Left arm PICC line in satisfactory position. 2. Complete opacification of the right hemithorax, unchanged. 3. Otherwise unremarkable study. RPTAT: QQ .Los Stringer MD, MD Date Time Electronically viewed and signed by .Los Stringer MD, MD on 02/08/2017 10:19 .R/
--- NOTE | 2017-02-08 11:05 | CONS ---
Date/Time of Note Date/Time of Note DATE: 02/08/17 TIME: 11:02 Assessment/Plan Assessment/Plan Additional Assessment/Plan Chest x-ray was reviewed from today which is showing almost complete whiteout of the right lung. Assessment and recommendations; 1. Patient admitted with extensive pneumonia involving the right lung likely with some element of post obstructive pneumonia. 2. Extensive metastatic non-small cell lung cancer. Currently on outpatient chemotherapy. 3. History of right upper extremity DVT. 4. Mild anemia and thrombocytopenia. 5. History of hypothyroidism. Continue current treatment. Prognosis is poor. Code Status needs to be addressed with the family or the patient himself. Consultation Date/Type/Reason Admit Date/Time Jan 31, 2017 at 18:59 Initial Consult Date 02/01/17 Type of Consultation: Pulmonary Referring Provider: TRAMAINE ELLSWORTH 24 HR Interval Summary Free Text/Dictation Patient condition is tenuous at best. Requiring intermittent BiPAP. Complaining of coughing with occasional hemoptysis which according to him has been off and on for the last 1-1/2 year. General exam; elderly male, appears quite overweight, currently in no distress. Exam/Review of Systems Vital Signs Vitals Vital Signs Date Time Temp Pulse Resp B/P Pulse Ox O2 Delivery O2 Flow Rate FiO2 02/08/17 08:53 85 02/08/17 08:29 4.0 02/08/17 08:29 20 98 Nasal Cannula 02/08/17 07:39 98.0 98/64 02/08/17 01:37 30 Intake and Output 02/07/17 02/07/17 02/08/17 15:00 23:00 07:00 Intake Total 750 ml 1750 ml Output Total 600 ml Balance 750 ml 1150 ml Exam HEENT exam; supple neck, no JVD. No lymphadenopathy. Midline trachea. No thyromegaly. Patient has alopecia. Chest exam; diminished breath sounds bilaterally. With marked reduction in breath sounds involving the right lung. S1-S2 audible, no murmurs. Regular rhythm. Abdomen exam; soft, protuberant. Nontender. No organomegaly. Bowel sounds audible. Extremity exam; no peripheral edema. No clubbing. Pulses 1+ bilaterally. STUBBER exam; no focal deficit. Results Result Diagram: 02/08/17 0705 02/08/17 07 Results 24 hrs Laboratory Tests Test 02/07/17 15:04 02/08/17 07:05 Blood Gas Specimen Source Blood arterial Arterial Blood Date Drawn 02/07/2017 6:15:54 PM Arterial Blood pH (Temp corrected) 7.347 L Arterial Blood pCO2 (Temp correct) 51.2 H Arterial Blood pO2 (Temp corrected) 107.5 H Arterial Blood HCO3 27.4 H Arterial Blood Base Excess 1.3 Arterial Blood Oxygen Saturation 97.6 Jose Alfredo Test ACCEPTAB Arterial Blood Gas Puncture Site Left Radial Arterial Blood Carboxyhemoglobin 0.3 Arterial Blood Methemoglobin 0.2 Blood Gas A-a O2 Differential 89.8 H Oxyhemoglobin Percent 97.1 Total Hemoglobin 9.8 L Blood Gas Temperature 37.0 Blood Gas Modality NASAL CANNULA FiO2 36.0 Blood Gas Notified Whom ab Blood Gas Notified Time 02/07/2017 6:22:38 PM White Blood Count 8.9 Red Blood Count 2.72 L Hemoglobin 8.6 L Hematocrit 29.4 L Mean Corpuscular Volume 108.1 H Mean Corpuscular Hemoglobin 31.6 Mean Corpuscular Hemoglobin Concent 29.3 L Red Cell Distribution Width 15.2 H Platelet Count 143 Mean Platelet Volume 11.2 H Neutrophils % 80.4 H Lymphocytes % 11.1 L Monocytes % 7.4 Eosinophils % 0.1 Basophils % 0.3 Nucleated Red Blood Cells % 0.0 Neutrophils # 7.1 Lymphocytes # 1.0 Monocytes # 0.7 Eosinophils # 0.0 Basophils # 0.0 Nucleated Red Blood Cells # 0.0 Sodium Level 137 Potassium Level 4.2 Chloride Level 106 Carbon Dioxide Level 28 Anion Gap 7 L Blood Urea Nitrogen 11 Creatinine 1.16 Glucose Level 78 Calcium Level 8.4 Medications Medications Current Medications Aspirin (Halfprin) 81 mg Q7D PO Last administered on 02/08/17 09:04; Admin Dose 81 MG; Start 02/01/17 at 09:00 Atorvastatin Calcium (Lipitor) 20 mg QHS PO Last administered on 02/07/17 21: 18; Admin Dose 20 MG; Start 01/31/17 at 21:00 Escitalopram Oxalate (Lexapro) 10 mg DAILY PO Last administered on 02/08/17 09 :04; Admin Dose 10 MG; Start 02/01/17 at 09:00 Furosemide (Lasix) 20 mg DAILY PO Last administered on 02/02/17 09:07; Admin Dose 20 MG; Start 02/01/17 at 09:00; Status Future Hold Ondansetron HCl (Zofran Inj) 4 mg Q6 PRN IV NAUSEA Last administered on 13:25; Admin Dose 4 MG; Start 01/31/17 at 19:30 Enoxaparin Sodium (Lovenox) 30 mg DAILY SC Last administered on 02/08/17 09:05 ; Admin Dose 30 MG; Start 02/01/17 at 09:00 Morphine Sulfate (Ms Contin (Er)) 15 mg BID PO Last administered on 02/07/17 21:18; Admin Dose 15 MG; Start 01/31/17 at 23:00 Morphine Sulfate (morphine) 4 mg Q4H PRN IV SEVERE PAIN LEVEL 7-10 Last administered on 02/03/17 18:09; Admin Dose 4 MG; Start 01/31/17 at 23:00 Nitroglycerin (Nitroglycerin (Sl Tab) 0.4 Mg) 1 tab Q5M PRN SL ANGINA; Start at 11:30 Pantoprazole (Protonix Tab) 40 mg DAILY@06 PO Last administered on 02/08/17 06 :41; Admin Dose 40 MG; Start 02/02/17 at 06:00 Voriconazole (Vfend) 200 mg BID PO Last administered on 02/08/17 09:04; Admin Dose 200 MG; Start 02/01/17 at 21:00 Senna (Senokot) 1 tab DAILY PRN PO CONSTIPATION Last administered on 02/03/17 20:36; Admin Dose 1 TAB; Start 02/02/17 at 16:00 Lactulose 20 gm 20 gm DAILY PRN PO CONSTIPATION; Start 02/02/17 at 16:00 Vancomycin HCl 1.75 gm/Sodium Chloride 500 ml @ 125 mls/hr Q24H IVPB Last administered on 02/07/17 23:53; Admin Dose 125 MLS/HR; Start 02/02/17 at 23:00 Sodium Chloride 1,000 ml @ 75 mls/hr [id number] IV Last administered on 05:20; Admin Dose 75 MLS/HR; Start 02/04/17 at 08:00 Cefepime HCl (Maxipime 2gm/50 ml (Pmx)) 50 ml @ 100 mls/hr Q12 IVPB Last administered on 02/08/17 09:04; Admin Dose 100 MLS/HR; Start 02/06/17 at 21:00 IV Flush (NS 10 ml) 10 ml PRN PRN IV IV PROTOCOL; Start 02/06/17 at 20:00 Oxymetazoline HCl (Afrin [place]) 2 spray BID NASAL Last administered on 09:04; Admin Dose 2 SPRAY; Start 02/07/17 at 15:00 ISMA CUTLER Feb 08, 2017 11:05
--- NOTE | 2017-02-08 14:17 | CONS ---
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 Aspergillus antibody was >1:64 but aspergillus antigen in serum by EIA was negative during his last admission. 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 Fraga Problems: Consultation Date/Type/Reason Admit Date/Time Jan 31, 2017 at 18:59 Initial Consult Date 02/01/17 Type of Consultation: Infectious Disease Referring Provider: TRAMAINE ELLSWORTH 24 HR Interval Summary Free Text/Dictation SOB unchanged. Has occasional hemoptysis which he's had for quite some time which pt & attributes to blood thinners. Reports decreased appetite and generalized weakness. states she is hopeful that pt can resume chemo as out patient once he recovers from this hospitalization as they were told by Dr. Scanlon that pt's lung CA is "unchanged since August". Exam/Review of Systems Vital Signs Vitals Vital Signs Date Time Temp Pulse Resp B/P Pulse Ox O2 Delivery O2 Flow Rate FiO2 02/08/17 14:01 92 18 97 Nasal Cannula 4.0 02/08/17 12:18 98.2 109/75 02/08/17 01:37 30 Intake and Output 02/07/17 02/07/17 02/08/17 15:00 23:00 07:00 Intake Total 750 ml 1750 ml Output Total 600 ml Balance 750 ml 1150 ml Exam Constitutional: alert, obese, oriented, well developed Psych: nl mood/affect Head: atraumatic, normocephalic, other (alopecia) Eyes: nl conjunctiva, nl lids, nl sclera ENMT: nl external ears & nose Neck: supple Respiratory: diminished breath sounds (R>L), No wheezing Cardiovascular: nl pulses, regular rate and rhythm Gastrointestinal: non-tender, soft Musculoskeletal: nl extremities to inspection Extremities: edema (trace) Neurological: nl mental status, other (generalized weakness) Skin: nl turgor, other (missing nail of L 2nd finger tip with erythema but no purulence) Results Result Diagram: 02/08/17 0705 02/08/17 0705 Results 24 hrs Laboratory Tests Test 02/07/17 15:04 02/08/17 07:05 Blood Gas Specimen Source Blood arterial Arterial Blood Date Drawn 02/07/2017 6:15:54 PM Arterial Blood pH (Temp corrected) 7.347 L Arterial Blood pCO2 (Temp correct) 51.2 H Arterial Blood pO2 (Temp corrected) 107.5 H Arterial Blood HCO3 27.4 H Arterial Blood Base Excess 1.3 Arterial Blood Oxygen Saturation 97.6 Jose Alfredo Test ACCEPTAB Arterial Blood Gas Puncture Site Left Radial Arterial Blood Carboxyhemoglobin 0.3 Arterial Blood Methemoglobin 0.2 Blood Gas A-a O2 Differential 89.8 H Oxyhemoglobin Percent 97.1 Total Hemoglobin 9.8 L Blood Gas Temperature 37.0 Blood Gas Modality NASAL CANNULA FiO2 36.0 Blood Gas Notified Whom ab Blood Gas Notified Time 02/07/2017 6:22:38 PM White Blood Count 8.9 Red Blood Count 2.72 L Hemoglobin 8.6 L Hematocrit 29.4 L Mean Corpuscular Volume 108.1 H Mean Corpuscular Hemoglobin 31.6 Mean Corpuscular Hemoglobin Concent 29.3 L Red Cell Distribution Width 15.2 H Platelet Count 143 Mean Platelet Volume 11.2 H Neutrophils % 80.4 H Lymphocytes % 11.1 L Monocytes % 7.4 Eosinophils % 0.1 Basophils % 0.3 Nucleated Red Blood Cells % 0.0 Neutrophils # 7.1 Lymphocytes # 1.0 Monocytes # 0.7 Eosinophils # 0.0 Basophils # 0.0 Nucleated Red Blood Cells # 0.0 Sodium Level 137 Potassium Level 4.2 Chloride Level 106 Carbon Dioxide Level 28 Anion Gap 7 L Blood Urea Nitrogen 11 Creatinine 1.16 Glucose Level 78 Calcium Level 8.4 Medications Medications Current Medications Aspirin (Halfprin) 81 mg Q7D PO Last administered on 02/08/17 09:04; Admin Dose 81 MG; Start 02/01/17 at 09:00 Atorvastatin Calcium (Lipitor) 20 mg QHS PO Last administered on 02/07/17 21: 18; Admin Dose 20 MG; Start 01/31/17 at 21:00 Escitalopram Oxalate (Lexapro) 10 mg DAILY PO Last administered on 02/08/17 09 :04; Admin Dose 10 MG; Start 02/01/17 at 09:00 Furosemide (Lasix) 20 mg DAILY PO Last administered on 02/02/17 09:07; Admin Dose 20 MG; Start 02/01/17 at 09:00; Status Future Hold Ondansetron HCl (Zofran Inj) 4 mg Q6 PRN IV NAUSEA Last administered on 13:25; Admin Dose 4 MG; Start 01/31/17 at 19:30 Enoxaparin Sodium (Lovenox) 30 mg DAILY SC Last administered on 02/08/17 09:05 ; Admin Dose 30 MG; Start 02/01/17 at 09:00 Morphine Sulfate (Ms Contin (Er)) 15 mg BID PO Last administered on 02/08/17 11:10; Admin Dose 15 MG; Start 01/31/17 at 23:00 Morphine Sulfate (morphine) 4 mg Q4H PRN IV SEVERE PAIN LEVEL 7-10 Last administered on 02/03/17 18:09; Admin Dose 4 MG; Start 01/31/17 at 23:00 Nitroglycerin (Nitroglycerin (Sl Tab) 0.4 Mg) 1 tab Q5M PRN SL ANGINA; Start at 11:30 Pantoprazole (Protonix Tab) 40 mg DAILY@06 PO Last administered on 02/08/17 06 :41; Admin Dose 40 MG; Start 02/02/17 at 06:00 Voriconazole (Vfend) 200 mg BID PO Last administered on 02/08/17 09:04; Admin Dose 200 MG; Start 02/01/17 at 21:00 Senna (Senokot) 1 tab DAILY PRN PO CONSTIPATION Last administered on 02/03/17 20:36; Admin Dose 1 TAB; Start 02/02/17 at 16:00 Lactulose 20 gm 20 gm DAILY PRN PO CONSTIPATION; Start 02/02/17 at 16:00 Vancomycin HCl 1.75 gm/Sodium Chloride 500 ml @ 125 mls/hr Q24H IVPB Last administered on 02/07/17 23:53; Admin Dose 125 MLS/HR; Start 02/02/17 at 23:00 Sodium Chloride 1,000 ml @ 75 mls/hr [id number] IV Last administered on 05:20; Admin Dose 75 MLS/HR; Start 02/04/17 at 08:00 Cefepime HCl (Maxipime 2gm/50 ml (Pmx)) 50 ml @ 100 mls/hr Q12 IVPB Last administered on 02/08/17 09:04; Admin Dose 100 MLS/HR; Start 02/06/17 at 21:00 IV Flush (NS 10 ml) 10 ml PRN PRN IV IV PROTOCOL; Start 02/06/17 at 20:00 Oxymetazoline HCl (Afrin [place]) 2 spray BID NASAL Last administered on 09:04; Admin Dose 2 SPRAY; Start 02/07/17 at 15:00 Procedures Procedures CXR 02/08/2017: 1. Left arm PICC line in satisfactory position. 2. Complete opacification of the right hemithorax, unchanged. 3. Otherwise unremarkable study. STEPHEN LOVE NP Feb 08, 2017 14:17
--- NOTE | 2017-02-08 19:04 | PN ---
Date/Time of Note Date/Time of Note DATE: 02/08/17 TIME: 19:03 Assessment/Plan VTE Prophylaxis VTE Prophylaxis Intervention: other Lines/Catheters [facility] Type ([facility] PICC Line Urinary Cath still in place: No Assessment/Plan Chief Complaint/Hosp Course - Problems: Assessment/Plan - hypotension-resolved - Shortness of breath- tolerates O2 3L nc. - Acute appearing nonocclusive deep venous thrombosis in the right subclavian vein- on Lovenox - Acute respiratory failure - pulmonary follows - cardiology follows - BIPAP. - Metastatic lung Cancer - per Oncology- Dr Valiente - BLE trace edema - will do Doppler r/o DVT- DVT neg - Anemia - Monitor CBC - Hyponatremia - IVF- - nephrology follows - Post Hypoxemic respiratory failure IN AUG 2016 , - reaction to CARBO - Severe pneumonia/bronchitis due to enterobacter (09/22/2016-) - Hx Afib - HX Pancytopenia - sp chemo - Monitor CBC - Leukocytosis- possibly sec to post obstructive PNA - per ID consult - HX Leukopenia - SP chemo - SP Neupogen - HX DVT- sp Lovenox -- History of coronary artery disease. - Chronic obstructive pulmonary disease - HX TOBACCO SMOKING Subjective 24 Hr Interval Summary Constitutional: requiring IVF, requiring O2 ENT: no complaints Respiratory: shortness of breath Cardiovascular: no complaints Gastrointestinal: no complaints Genitourinary: no complaints Musculoskeletal: no complaints Exam/Review of Systems Vital Signs Vitals Vital Signs Date Time Temp Pulse Resp B/P Pulse Ox O2 Delivery O2 Flow Rate FiO2 02/08/17 17:11 90 02/08/17 16:15 98.9 21 103/64 94 02/08/17 16:00 Nasal Cannula 4.0 02/08/17 01:37 30 Intake and Output 02/07/17 02/07/17 02/08/17 15:00 23:00 07:00 Intake Total 750 ml 1750 ml Output Total 600 ml Balance 750 ml 1150 ml Exam Constitutional: alert, obese Respiratory: diminished breath sounds Gastrointestinal: non-tender, soft Musculoskeletal: nl extremities to inspection Extremities: normal pulses Neurological: nl speech, other Results Result Diagram: 02/08/17 0705 02/08/17 0705 Results 24 hrs Laboratory Tests Test 02/08/17 07:05 White Blood Count 8.9 Red Blood Count 2.72 L Hemoglobin 8.6 L Hematocrit 29.4 L Mean Corpuscular Volume 108.1 H Mean Corpuscular Hemoglobin 31.6 Mean Corpuscular Hemoglobin Concent 29.3 L Red Cell Distribution Width 15.2 H Platelet Count 143 Mean Platelet Volume 11.2 H Neutrophils % 80.4 H Lymphocytes % 11.1 L Monocytes % 7.4 Eosinophils % 0.1 Basophils % 0.3 Nucleated Red Blood Cells % 0.0 Neutrophils # 7.1 Lymphocytes # 1.0 Monocytes # 0.7 Eosinophils # 0.0 Basophils # 0.0 Nucleated Red Blood Cells # 0.0 Sodium Level 137 Potassium Level 4.2 Chloride Level 106 Carbon Dioxide Level 28 Anion Gap 7 L Blood Urea Nitrogen 11 Creatinine 1.16 Glucose Level 78 Calcium Level 8.4 Medications Medications Current Medications Aspirin (Halfprin) 81 mg Q7D PO Last administered on 02/08/17 09:04; Admin Dose 81 MG; Start 02/01/17 at 09:00 Atorvastatin Calcium (Lipitor) 20 mg QHS PO Last administered on 02/07/17 21: 18; Admin Dose 20 MG; Start 01/31/17 at 21:00 Escitalopram Oxalate (Lexapro) 10 mg DAILY PO Last administered on 02/08/17 09 :04; Admin Dose 10 MG; Start 02/01/17 at 09:00 Furosemide (Lasix) 20 mg DAILY PO Last administered on 02/02/17 09:07; Admin Dose 20 MG; Start 02/01/17 at 09:00; Status Future Hold Ondansetron HCl (Zofran Inj) 4 mg Q6 PRN IV NAUSEA Last administered on 13:25; Admin Dose 4 MG; Start 01/31/17 at 19:30 Enoxaparin Sodium (Lovenox) 30 mg DAILY SC Last administered on 02/08/17 09:05 ; Admin Dose 30 MG; Start 02/01/17 at 09:00 Morphine Sulfate (Ms Contin (Er)) 15 mg BID PO Last administered on 02/08/17 11:10; Admin Dose 15 MG; Start 01/31/17 at 23:00 Morphine Sulfate (morphine) 4 mg Q4H PRN IV SEVERE PAIN LEVEL 7-10 Last administered on 02/03/17 18:09; Admin Dose 4 MG; Start 01/31/17 at 23:00 Nitroglycerin (Nitroglycerin (Sl Tab) 0.4 Mg) 1 tab Q5M PRN SL ANGINA; Start at 11:30 Pantoprazole (Protonix Tab) 40 mg DAILY@06 PO Last administered on 02/08/17 06 :41; Admin Dose 40 MG; Start 02/02/17 at 06:00 Voriconazole (Vfend) 200 mg BID PO Last administered on 02/08/17 09:04; Admin Dose 200 MG; Start 02/01/17 at 21:00 Senna (Senokot) 1 tab DAILY PRN PO CONSTIPATION Last administered on 02/03/17 20:36; Admin Dose 1 TAB; Start 02/02/17 at 16:00 Lactulose 20 gm 20 gm DAILY PRN PO CONSTIPATION; Start 02/02/17 at 16:00 Vancomycin HCl 1.75 gm/Sodium Chloride 500 ml @ 125 mls/hr Q24H IVPB Last administered on 02/07/17 23:53; Admin Dose 125 MLS/HR; Start 02/02/17 at 23:00 Sodium Chloride 1,000 ml @ 75 mls/hr [id number] IV Last administered on 05:20; Admin Dose 75 MLS/HR; Start 02/04/17 at 08:00 Cefepime HCl (Maxipime 2gm/50 ml (Pmx)) 50 ml @ 100 mls/hr Q12 IVPB Last administered on 02/08/17 09:04; Admin Dose 100 MLS/HR; Start 02/06/17 at 21:00 IV Flush (NS 10 ml) 10 ml PRN PRN IV IV PROTOCOL; Start 02/06/17 at 20:00 Oxymetazoline HCl (Afrin [place]) 2 spray BID NASAL Last administered on 09:04; Admin Dose 2 SPRAY; Start 02/07/17 at 15:00 TRAMAINE ELLSWORTH Feb 08, 2017 19:04
[2017-02-08] MEDS: ATORVASTATIN 20 MG TAB PO SCH (20:41)
--- NOTE | 2017-02-08 21:08 | CONS ---
Date/Time of Note Date/Time of Note DATE: 02/08/17 TIME: 21:04 Assessment/Plan Assessment/Plan Chief Complaint/Hosp Course IMPRESSION: 1. Chest pain. Assess for acute coronary syndrome in a patient with lung cancer, undergoing chemotherapy, likely secondary to lung cancer.-negative trop x3 2. Abnormal electrocardiogram with nonspecific ST and T-wave abnormalities, assess for acute coronary syndrome. 3. Bradycardia, transient while on beta matthew. 4. Hypotension-today 5. Shortness of breath-R hemithorax complete opacification 6. Lung cancer with ongoing chemotherapy. 7. Leukocytosis. 8. Anemia. 9. Thrombocytopenia. Recc: -Tel -Continue asa as tolerated -Continue abx;'s and f/u cx data -Continue statin -Hold IVF -? Bronch -Continue abx's and f/u cx data -pulmonary toliet Problems: Consultation Date/Type/Reason Admit Date/Time Jan 31, 2017 at 18:59 Initial Consult Date 02/01/17 Type of Consultation: cardiology Reason for Consultation chest pain/CHF Referring Provider: TRAMAINE ELLSWORTH Exam/Review of Systems Vital Signs Vitals Vital Signs Date Time Temp Pulse Resp B/P Pulse Ox O2 Delivery O2 Flow Rate FiO2 02/08/17 20:23 96 02/08/17 19:31 18 94 Nasal Cannula 4.0 02/08/17 19:28 98.5 121/75 02/08/17 01:37 30 Intake and Output 02/07/17 02/07/17 02/08/17 15:00 23:00 07:00 Intake Total 750 ml 1750 ml Output Total 600 ml Balance 750 ml 1150 ml Exam Review of Systems: CONSTITUTIONAL: No fevers, chills. PULMONARY: ongoing sob CARDIOVASCULAR: No chest pain/palpitations GASTROINTESTINAL: No nausea/vomiting. GENITOURINARY: No hematuria/dysuria. MUSCULOSKELETAL: No myagias/arthalgias. PSYCHIATRIC: The patient denies depression. NEUROLOGIC: No weakness Constitutional: alert Psych: no complaints Head: normocephalic ENMT: mucosa pink and moist Neck: jvd (9 cm water), supple Respiratory: diminished breath sounds (at bases/B) Cardiovascular: regular rate and rhythm Gastrointestinal: non-tender, soft Musculoskeletal: muscle tone (normal) Extremities: pitting pedal edema (BIlateral LE) Neurological: other (NO focal deficits) Results Result Diagram: 02/08/17 0702/08/17 0705 Results 24 hrs Laboratory Tests Test 02/08/17 07:05 White Blood Count 8.9 Red Blood Count 2.72 L Hemoglobin 8.6 L Hematocrit 29.4 L Mean Corpuscular Volume 108.1 H Mean Corpuscular Hemoglobin 31.6 Mean Corpuscular Hemoglobin Concent 29.3 L Red Cell Distribution Width 15.2 H Platelet Count 143 Mean Platelet Volume 11.2 H Neutrophils % 80.4 H Lymphocytes % 11.1 L Monocytes % 7.4 Eosinophils % 0.1 Basophils % 0.3 Nucleated Red Blood Cells % 0.0 Neutrophils # 7.1 Lymphocytes # 1.0 Monocytes # 0.7 Eosinophils # 0.0 Basophils # 0.0 Nucleated Red Blood Cells # 0.0 Sodium Level 137 Potassium Level 4.2 Chloride Level 106 Carbon Dioxide Level 28 Anion Gap 7 L Blood Urea Nitrogen 11 Creatinine 1.16 Glucose Level 78 Calcium Level 8.4 Medications Medications Current Medications Aspirin (Halfprin) 81 mg Q7D PO Last administered on 02/08/17 09:04; Admin Dose 81 MG; Start 02/01/17 at 09:00 Atorvastatin Calcium (Lipitor) 20 mg QHS PO Last administered on 02/08/17 20: 41; Admin Dose 20 MG; Start 01/31/17 at 21:00 Escitalopram Oxalate (Lexapro) 10 mg DAILY PO Last administered on 02/08/17 09 :04; Admin Dose 10 MG; Start 02/01/17 at 09:00 Furosemide (Lasix) 20 mg DAILY PO Last administered on 02/02/17 09:07; Admin Dose 20 MG; Start 02/01/17 at 09:00; Status Future Hold Ondansetron HCl (Zofran Inj) 4 mg Q6 PRN IV NAUSEA Last administered on 13:25; Admin Dose 4 MG; Start 01/31/17 at 19:30 Enoxaparin Sodium (Lovenox) 30 mg DAILY SC Last administered on 02/08/17 09:05 ; Admin Dose 30 MG; Start 02/01/17 at 09:00 Morphine Sulfate (Ms Contin (Er)) 15 mg BID PO Last administered on 02/08/17 11:10; Admin Dose 15 MG; Start 01/31/17 at 23:00 Morphine Sulfate (morphine) 4 mg Q4H PRN IV SEVERE PAIN LEVEL 7-10 Last administered on 02/03/17 18:09; Admin Dose 4 MG; Start 01/31/17 at 23:00 Nitroglycerin (Nitroglycerin (Sl Tab) 0.4 Mg) 1 tab Q5M PRN SL ANGINA; Start at 11:30 Pantoprazole (Protonix Tab) 40 mg DAILY@06 PO Last administered on 02/08/17 06 :41; Admin Dose 40 MG; Start 02/02/17 at 06:00 Voriconazole (Vfend) 200 mg BID PO Last administered on 02/08/17 20:41; Admin Dose 200 MG; Start 02/01/17 at 21:00 Senna (Senokot) 1 tab DAILY PRN PO CONSTIPATION Last administered on 02/03/17 20:36; Admin Dose 1 TAB; Start 02/02/17 at 16:00 Lactulose 20 gm 20 gm DAILY PRN PO CONSTIPATION; Start 02/02/17 at 16:00 Vancomycin HCl 1.75 gm/Sodium Chloride 500 ml @ 125 mls/hr Q24H IVPB Last administered on 02/07/17 23:53; Admin Dose 125 MLS/HR; Start 02/02/17 at 23:00 Sodium Chloride 1,000 ml @ 75 mls/hr [id number] IV Last administered on 18:40; Admin Dose 75 MLS/HR; Start 02/04/17 at 08:00 Cefepime HCl (Maxipime 2gm/50 ml (Pmx)) 50 ml @ 100 mls/hr Q12 IVPB Last administered on 02/08/17 20:41; Admin Dose 100 MLS/HR; Start 02/06/17 at 21:00 IV Flush (NS 10 ml) 10 ml PRN PRN IV IV PROTOCOL; Start 02/06/17 at 20:00 Oxymetazoline HCl (Afrin [place]) 2 spray BID NASAL Last administered on 09:04; Admin Dose 2 SPRAY; Start 02/07/17 at 15:00 Miscellaneous Information (*Rx Drug Level Order Reminder*) VANCO TR LEVEL PRIOR... ONCE ONCE XX ; Start 02/08/17 at 22:00; Stop 02/08/17 at 22:01 MARIAA ÁLVAREZ Feb 08, 2017 21:08
--- NOTE | 2017-02-08 22:19 | CONS ---
Date/Time of Note Date/Time of Note DATE: 02/08/17 TIME: 22:18 Assessment/Plan Assessment/Plan Chief Complaint/Hosp Course metastatic lung CANCER, NSCLC - ON CHEMO WITH RELATIVELY STABLE DIS D/W PULM AND RADIOLOGIST CHEMO ON HOLD DURING HOSPITALIZATION HX PANCYTOPENIA POST CHEMO MONITOR BLOOD COUNT CLOSELY LEUKOCYTOSIS PROB 2 TO POST OBSTRUCTIVE PNA HX LEUKOPENIA- POST CHEMO POST NEUPOGEN IN THE PAST POST Hypoxemic respiratory failure IN AUG 2016 , reaction to CARBO severe pneumonia/bronchitis due to enterobacter (09/22/2016-) HX DVT TREATED WITH LOVENOX PT SELF- DC 2 TO HEMOPTYSIS OUTPT History of coronary artery disease. Chronic obstructive pulmonary disease HX TOBACCO SMOKING Problems: Consultation Date/Type/Reason Admit Date/Time Jan 31, 2017 at 18:59 Initial Consult Date 01/31/17 [facility] Referring Provider: TRAMAINE ELLSWORTH 24 HR Interval Summary Free Text/Dictation ALL NOTED NO NEW EVENTS + SOB, BUT LESS Exam/Review of Systems Vital Signs Vitals Vital Signs Date Time Temp Pulse Resp B/P Pulse Ox O2 Delivery O2 Flow Rate FiO2 02/08/17 20:23 96 02/08/17 20:00 Nasal Cannula 4.0 02/08/17 19:31 18 94 02/08/17 19:28 98.5 121/75 02/08/17 01:37 30 Intake and Output 02/07/17 02/07/17 02/08/17 15:00 23:00 07:00 Intake Total 750 ml 1750 ml Output Total 600 ml Balance 750 ml 1150 ml Exam GENERAL: The patient is alert, awake, complaining of chest pain, shortness of breath. NECK: JVP approximately 9 cm water. CHEST: Upper airway transmitted diffuse rhonchorous sounds. Decreased breath sounds at the bases bilaterally. HEART: Regular rate and rhythm. Normal S1, increased S2. 1/6 systolic murmur. Nondisplaced PMI. ABDOMEN: Positive bowel sounds. Soft. EXTREMITIES: Trace edema, lower extremities bilaterally. 1+ pulses bilateral posterior tibial. Results Result Diagram: 02/08/17 0705 02/08/17 0705 Results 24 hrs Laboratory Tests Test 02/08/17 07:05 White Blood Count 8.9 Red Blood Count 2.72 L Hemoglobin 8.6 L Hematocrit 29.4 L Mean Corpuscular Volume 108.1 H Mean Corpuscular Hemoglobin 31.6 Mean Corpuscular Hemoglobin Concent 29.3 L Red Cell Distribution Width 15.2 H Platelet Count 143 Mean Platelet Volume 11.2 H Neutrophils % 80.4 H Lymphocytes % 11.1 L Monocytes % 7.4 Eosinophils % 0.1 Basophils % 0.3 Nucleated Red Blood Cells % 0.0 Neutrophils # 7.1 Lymphocytes # 1.0 Monocytes # 0.7 Eosinophils # 0.0 Basophils # 0.0 Nucleated Red Blood Cells # 0.0 Sodium Level 137 Potassium Level 4.2 Chloride Level 106 Carbon Dioxide Level 28 Anion Gap 7 L Blood Urea Nitrogen 11 Creatinine 1.16 Glucose Level 78 Calcium Level 8.4 Medications Medications Current Medications Aspirin (Halfprin) 81 mg Q7D PO Last administered on 02/08/17 09:04; Admin Dose 81 MG; Start 02/01/17 at 09:00 Atorvastatin Calcium (Lipitor) 20 mg QHS PO Last administered on 02/08/17 20: 41; Admin Dose 20 MG; Start 01/31/17 at 21:00 Escitalopram Oxalate (Lexapro) 10 mg DAILY PO Last administered on 02/08/17 09 :04; Admin Dose 10 MG; Start 02/01/17 at 09:00 Furosemide (Lasix) 20 mg DAILY PO Last administered on 02/02/17 09:07; Admin Dose 20 MG; Start 02/01/17 at 09:00; Status Future Hold Ondansetron HCl (Zofran Inj) 4 mg Q6 PRN IV NAUSEA Last administered on 13:25; Admin Dose 4 MG; Start 01/31/17 at 19:30 Enoxaparin Sodium (Lovenox) 30 mg DAILY SC Last administered on 02/08/17 09:05 ; Admin Dose 30 MG; Start 02/01/17 at 09:00 Morphine Sulfate (Ms Contin (Er)) 15 mg BID PO Last administered on 02/08/17 11:10; Admin Dose 15 MG; Start 01/31/17 at 23:00 Morphine Sulfate (morphine) 4 mg Q4H PRN IV SEVERE PAIN LEVEL 7-10 Last administered on 02/03/17 18:09; Admin Dose 4 MG; Start 01/31/17 at 23:00 Nitroglycerin (Nitroglycerin (Sl Tab) 0.4 Mg) 1 tab Q5M PRN SL ANGINA; Start at 11:30 Pantoprazole (Protonix Tab) 40 mg DAILY@06 PO Last administered on 02/08/17 06 :41; Admin Dose 40 MG; Start 02/02/17 at 06:00 Voriconazole (Vfend) 200 mg BID PO Last administered on 02/08/17 20:41; Admin Dose 200 MG; Start 02/01/17 at 21:00 Senna (Senokot) 1 tab DAILY PRN PO CONSTIPATION Last administered on 02/03/17 20:36; Admin Dose 1 TAB; Start 02/02/17 at 16:00 Lactulose 20 gm 20 gm DAILY PRN PO CONSTIPATION; Start 02/02/17 at 16:00 Vancomycin HCl 1.75 gm/Sodium Chloride 500 ml @ 125 mls/hr Q24H IVPB Last administered on 02/07/17 23:53; Admin Dose 125 MLS/HR; Start 02/02/17 at 23:00 Sodium Chloride 1,000 ml @ 75 mls/hr [id number] IV Last administered on 18:40; Admin Dose 75 MLS/HR; Start 02/04/17 at 08:00; Status Future Hold Cefepime HCl (Maxipime 2gm/50 ml (Pmx)) 50 ml @ 100 mls/hr Q12 IVPB Last administered on 02/08/17 20:41; Admin Dose 100 MLS/HR; Start 02/06/17 at 21:00 IV Flush (NS 10 ml) 10 ml PRN PRN IV IV PROTOCOL; Start 02/06/17 at 20:00 Oxymetazoline HCl (Afrin [place]) 2 spray BID NASAL Last administered on 09:04; Admin Dose 2 SPRAY; Start 02/07/17 at 15:00 DAHIANA BABCOCK MD Feb 08, 2017 22:19
[2017-02-09] VITALS (14 sets, daily range): BP systolic 97–128; BP diastolic 62–86; PULSE 82–98; RESP 17–20
[2017-02-09] MEDS: LEVALBUTEROL (NEB) 0.63 MG/3 ML AMP HHN SCH ×4 (01:38→20:03)
[2017-02-09] MEDS ORDERED: LEVALBUTEROL (NEB) 0.63 MG/3 ML AMP HHN ONE (05:00)
[2017-02-09] MEDS: VANCOMYCIN 1.25 GM in SOD CHLORIDE 0.9% 250 ML IVPB SCH (05:12)
[2017-02-09] MEDS: PANTOPRAZOLE (EC) 40 MG TAB PO SCH (05:25)
[2017-02-09] MEDS: ONDANSETRON 4 MG INJ IV PRN ×2 (05:33→13:05)
[2017-02-09] MEDS: LEVOTHYROXINE 75 MCG TAB PO SCH (06:17)
[2017-02-09 06:57] LABS: ABNORMAL IP MESSAGE 1; BASOPHILS % 0.3 % (0.0-2.0); EOSINOPHILS % 0.1 % (0.0-7.0); HEMATOCRIT 27.9 % (42.0-52.0); HEMOGLOBIN 8.4 g/dl (14.0-18.0); LYMPHOCYTES # 0.5 10^3/ul (0.8-2.9); LYMPHOCYTES % 6.5 % (15.0-51.0); MEAN CORPUSCULAR HEMOGLOBIN 32.3 pg (29.0-33.0); MEAN CORPUSCULAR HGB CONC 30.1 g/dl (32.0-37.0); MEAN CORPUSCULAR VOLUME 107.3 fl (82.0-101.0); MEAN PLATELET VOLUME 10.3 fl (7.4-10.4); MONOCYTE # 0.6 10^3/ul (0.3-0.9); MONOCYTES % 8.8 % (0.0-11.0); NEUTROPHIL # 5.8 10^3/ul (1.6-7.5); NEUTROPHILS % 83.7 % (39.0-77.0); PLATELET COUNT 122 10^3/UL (140-415); POSITIVE DIFF @See below; RED CELL DISTRIBUTION WIDTH 15.3 % (11.5-14.5)
[2017-02-09 07:28] LABS: CALCIUM 8.3 mg/dl (8.4-10.2); CREATININE 1.19 mg/dl (0.61-1.24)
[2017-02-09] MEDS: ENOXAPARIN 30 MG/0.3 ML SYG SC SCH (09:00)
[2017-02-09] MEDS: OXYMETAZOLINE 0.05% 15 ML NAS SPRAY NASAL SCH ×2 (09:12→21:50)
[2017-02-09] MEDS: CEFEPIME 2GM/50 ML (PMX) 50 ML IVPB SCH ×2 (09:12→21:50)
[2017-02-09] MEDS: morphine (ER) 15 MG TAB PO SCH ×2 (09:12→21:50)
[2017-02-09] MEDS: VORICONAZOLE 200 MG TAB PO SCH ×2 (09:12→21:49)
[2017-02-09] MEDS: ESCITALOPRAM 10 MG TAB PO SCH (09:12)
--- NOTE | 2017-02-09 10:53 | PN ---
Date/Time of Note Date/Time of Note DATE: 02/09/17 TIME: 10:51 Assessment/Plan VTE Prophylaxis VTE Prophylaxis Intervention: other Lines/Catheters IV [facility] P[facility] Line Urinary Cath still in place: No Assessment/Plan Chief Complaint/Hosp Course - Problems: Assessment/Plan - Shortness of breath- tolerates O2 3L nc. - Acute appearing nonocclusive deep venous thrombosis in the right subclavian vein- on Lovenox - Acute respiratory failure - pulmonary follows - cardiology follows - BIPAP. - Metastatic lung Cancer - per Oncology- Dr Valiente - BLE trace edema - will do Doppler r/o DVT- DVT neg - Anemia - Monitor CBC - Hyponatremia - IVF- - nephrology follows - Post Hypoxemic respiratory failure IN AUG 2016 , - reaction to CARBO - Severe pneumonia/bronchitis due to enterobacter (09/22/2016-) - Hx Afib - HX Pancytopenia - sp chemo - Monitor CBC - Leukocytosis- possibly sec to post obstructive PNA - per ID consult - HX Leukopenia - SP chemo - SP Neupogen - HX DVT- sp Lovenox -- History of coronary artery disease. - Chronic obstructive pulmonary disease - HX TOBACCO SMOKING Subjective 24 Hr Interval Summary Respiratory: shortness of breath Cardiovascular: no complaints Gastrointestinal: no complaints Genitourinary: no complaints Musculoskeletal: back pain Exam/Review of Systems Vital Signs Vitals Vital Signs Date Time Temp Pulse Resp B/P Pulse Ox O2 Delivery O2 Flow Rate FiO2 02/09/17 08:23 85 02/09/17 07:56 97.5 19 111/76 96 02/09/17 07:40 4.0 02/09/17 07:40 Nasal Cannula 02/09/17 03:35 30 Intake and Output 02/08/17 02/08/17 02/09/17 15:00 23:00 07:00 Intake Total 480 ml Balance 480 ml Exam Constitutional: alert Respiratory: diminished breath sounds Cardiovascular: regular rate and rhythm Musculoskeletal: nl extremities to inspection Extremities: normal pulses Neurological: nl speech Results Result Diagram: 02/09/17 0638 02/09/17 0638 Results 24 hrs Laboratory Tests Test 02/08/17 22:22 02/09/17 06:38 Vancomycin Level Trough 20.8 *H White Blood Count 7.0 # Red Blood Count 2.60 L Hemoglobin 8.4 L Hematocrit 27.9 L Mean Corpuscular Volume 107.3 H Mean Corpuscular Hemoglobin 32.3 Mean Corpuscular Hemoglobin Concent 30.1 L Red Cell Distribution Width 15.3 H Platelet Count 122 L Mean Platelet Volume 10.3 Neutrophils % 83.7 H Lymphocytes % 6.5 L Monocytes % 8.8 Eosinophils % 0.1 Basophils % 0.3 Nucleated Red Blood Cells % 0.0 Neutrophils # 5.8 Lymphocytes # 0.5 L Monocytes # 0.6 Eosinophils # 0.0 Basophils # 0.0 Nucleated Red Blood Cells # 0.0 Sodium Level 140 Potassium Level 4.0 Chloride Level 108 Carbon Dioxide Level 27 Anion Gap 9 Blood Urea Nitrogen 11 Creatinine 1.19 Glucose Level 92 Calcium Level 8.3 L Medications Medications Current Medications Aspirin (Halfprin) 81 mg Q7D PO Last administered on 02/08/17 09:04; Admin Dose 81 MG; Start 02/01/17 at 09:00 Atorvastatin Calcium (Lipitor) 20 mg QHS PO Last administered on 02/08/17 20: 41; Admin Dose 20 MG; Start 01/31/17 at 21:00 Escitalopram Oxalate (Lexapro) 10 mg DAILY PO Last administered on 02/09/17 09 :12; Admin Dose 10 MG; Start 02/01/17 at 09:00 Furosemide (Lasix) 20 mg DAILY PO Last administered on 02/02/17 09:07; Admin Dose 20 MG; Start 02/01/17 at 09:00; Status Future Hold Ondansetron HCl (Zofran Inj) 4 mg Q6 PRN IV NAUSEA Last administered on 05:33; Admin Dose 4 MG; Start 01/31/17 at 19:30 Enoxaparin Sodium (Lovenox) 30 mg DAILY SC Last administered on 02/08/17 09:05 ; Admin Dose 30 MG; Start 02/01/17 at 09:00 Morphine Sulfate (Ms Contin (Er)) 15 mg BID PO Last administered on 02/09/17 09:12; Admin Dose 15 MG; Start 01/31/17 at 23:00 Morphine Sulfate (morphine) 4 mg Q4H PRN IV SEVERE PAIN LEVEL 7-10 Last administered on 02/03/17 18:09; Admin Dose 4 MG; Start 01/31/17 at 23:00 Nitroglycerin (Nitroglycerin (Sl Tab) 0.4 Mg) 1 tab Q5M PRN SL ANGINA; Start at 11:30 Pantoprazole (Protonix Tab) 40 mg DAILY@06 PO Last administered on 02/08/17 06 :41; Admin Dose 40 MG; Start 02/02/17 at 06:00 Voriconazole (Vfend) 200 mg BID PO Last administered on 02/09/17 09:12; Admin Dose 200 MG; Start 02/01/17 at 21:00 Senna (Senokot) 1 tab DAILY PRN PO CONSTIPATION Last administered on 02/03/17 20:36; Admin Dose 1 TAB; Start 02/02/17 at 16:00 Lactulose 20 gm 20 gm DAILY PRN PO CONSTIPATION; Start 02/02/17 at 16:00 Sodium Chloride 1,000 ml @ 75 mls/hr [id number] IV Last administered on 18:40; Admin Dose 75 MLS/HR; Start 02/04/17 at 08:00; Status Future Hold Cefepime HCl (Maxipime 2gm/50 ml (Pmx)) 50 ml @ 100 mls/hr Q12 IVPB Last administered on 02/09/17 09:12; Admin Dose 100 MLS/HR; Start 02/06/17 at 21:00 IV Flush (NS 10 ml) 10 ml PRN PRN IV IV PROTOCOL; Start 02/06/17 at 20:00 Oxymetazoline HCl 2 spray 2 spray BID NASAL Last administered on 02/09/17 09: 12; Admin Dose 2 SPRAY; Start 02/07/17 at 15:00 Vancomycin HCl/ Sodium Chloride (Vancocin/NS) 250 ml @ 83.333 mls/ hr Q24H IVPB Last administered on 02/09/17 05:12; Admin Dose 83.333 MLS/HR; Start at 04:00 TRAMAINE ELLSWORTH Feb 09, 2017 10:53
--- NOTE | 2017-02-09 11:46 | CONS ---
Date/Time of Note Date/Time of Note DATE: 02/09/17 TIME: 11:44 Assessment/Plan Assessment/Plan Additional Assessment/Plan Assessment and recommendations; 1. Patient admitted with extensive pneumonia involving right lung , likely has significant element of post obstruction due to extensive metastatic non- small cell lung cancer. 2. Chronic pain due to malignancy. 3. Likely underlying sleep apnea. Continue current supportive care. Prognosis is very poor. Consultation Date/Type/Reason Admit Date/Time Jan 31, 2017 at 18:59 Initial Consult Date 02/01/17 Type of Consultation: Pulmonary Referring Provider: TRAMAINE ELLSWORTH 24 HR Interval Summary Free Text/Dictation Patient condition remains tenuous. Requiring intermittent BiPAP. Patient however remains awake and alert. General exam; elderly male, awake and alert. Currently in no distress. Appears obese Exam/Review of Systems Vital Signs Vitals Vital Signs Date Time Temp Pulse Resp B/P Pulse Ox O2 Delivery O2 Flow Rate FiO2 02/09/17 08:23 85 02/09/17 07:56 97.5 19 111/76 96 02/09/17 07:40 4.0 02/09/17 07:40 Nasal Cannula 02/09/17 03:35 30 Intake and Output 02/08/17 02/08/17 02/09/17 15:00 23:00 07:00 Intake Total 480 ml Balance 480 ml Exam HEENT exam; supple neck, no JVD. No lymphadenopathy. Midline trachea. No thyromegaly. Patient has fair dentition. Chest exam; diminished breath sounds right lung. Left lung is fairly clear. S1 -S2 audible, no murmurs. Regular rhythm. Abdomen exam; soft, no organomegaly. Bowel sounds audible. Extremity exam; no peripheral edema. No clubbing. Pulses 1+ bilaterally. PRIVACY SPECIALIST exam; no focal deficit. Results Result Diagram: 02/09/17 0638 02/09/17 0638 Results 24 hrs Laboratory Tests Test 02/08/17 22:22 02/09/17 06:38 Vancomycin Level Trough 20.8 *H White Blood Count 7.0 # Red Blood Count 2.60 L Hemoglobin 8.4 L Hematocrit 27.9 L Mean Corpuscular Volume 107.3 H Mean Corpuscular Hemoglobin 32.3 Mean Corpuscular Hemoglobin Concent 30.1 L Red Cell Distribution Width 15.3 H Platelet Count 122 L Mean Platelet Volume 10.3 Neutrophils % 83.7 H Lymphocytes % 6.5 L Monocytes % 8.8 Eosinophils % 0.1 Basophils % 0.3 Nucleated Red Blood Cells % 0.0 Neutrophils # 5.8 Lymphocytes # 0.5 L Monocytes # 0.6 Eosinophils # 0.0 Basophils # 0.0 Nucleated Red Blood Cells # 0.0 Sodium Level 140 Potassium Level 4.0 Chloride Level 108 Carbon Dioxide Level 27 Anion Gap 9 Blood Urea Nitrogen 11 Creatinine 1.19 Glucose Level 92 Calcium Level 8.3 L Medications Medications Current Medications Aspirin (Halfprin) 81 mg Q7D PO Last administered on 02/08/17 09:04; Admin Dose 81 MG; Start 02/01/17 at 09:00 Atorvastatin Calcium (Lipitor) 20 mg QHS PO Last administered on 02/08/17 20: 41; Admin Dose 20 MG; Start 01/31/17 at 21:00 Escitalopram Oxalate (Lexapro) 10 mg DAILY PO Last administered on 02/09/17 09 :12; Admin Dose 10 MG; Start 02/01/17 at 09:00 Furosemide (Lasix) 20 mg DAILY PO Last administered on 02/02/17 09:07; Admin Dose 20 MG; Start 02/01/17 at 09:00; Status Future Hold Ondansetron HCl (Zofran Inj) 4 mg Q6 PRN IV NAUSEA Last administered on 05:33; Admin Dose 4 MG; Start 01/31/17 at 19:30 Enoxaparin Sodium (Lovenox) 30 mg DAILY SC Last administered on 02/08/17 09:05 ; Admin Dose 30 MG; Start 02/01/17 at 09:00 Morphine Sulfate (Ms Contin (Er)) 15 mg BID PO Last administered on 02/09/17 09:12; Admin Dose 15 MG; Start 01/31/17 at 23:00 Morphine Sulfate (morphine) 4 mg Q4H PRN IV SEVERE PAIN LEVEL 7-10 Last administered on 02/03/17 18:09; Admin Dose 4 MG; Start 01/31/17 at 23:00 Nitroglycerin (Nitroglycerin (Sl Tab) 0.4 Mg) 1 tab Q5M PRN SL ANGINA; Start at 11:30 Pantoprazole (Protonix Tab) 40 mg DAILY@06 PO Last administered on 02/08/17 06 :41; Admin Dose 40 MG; Start 02/02/17 at 06:00 Voriconazole (Vfend) 200 mg BID PO Last administered on 02/09/17 09:12; Admin Dose 200 MG; Start 02/01/17 at 21:00 Senna (Senokot) 1 tab DAILY PRN PO CONSTIPATION Last administered on 02/03/17 20:36; Admin Dose 1 TAB; Start 02/02/17 at 16:00 Lactulose 20 gm 20 gm DAILY PRN PO CONSTIPATION; Start 02/02/17 at 16:00 Sodium Chloride 1,000 ml @ 75 mls/hr [id number] IV Last administered on 18:40; Admin Dose 75 MLS/HR; Start 02/04/17 at 08:00; Status Future Hold Cefepime HCl (Maxipime 2gm/50 ml (Pmx)) 50 ml @ 100 mls/hr Q12 IVPB Last administered on 02/09/17 09:12; Admin Dose 100 MLS/HR; Start 02/06/17 at 21:00 IV Flush (NS 10 ml) 10 ml PRN PRN IV IV PROTOCOL; Start 02/06/17 at 20:00 Oxymetazoline HCl 2 spray 2 spray BID NASAL Last administered on 02/09/17 09: 12; Admin Dose 2 SPRAY; Start 02/07/17 at 15:00 Vancomycin HCl/ Sodium Chloride (Vancocin/NS) 250 ml @ 83.333 mls/ hr Q24H IVPB Last administered on 02/09/17 05:12; Admin Dose 83.333 MLS/HR; Start at 04:00 ISMA CUTLER Feb 09, 2017 11:46
[2017-02-09] MEDS: DRONABINOL 2.5 MG CAP PO SCH ×2 (12:00→17:39)
[2017-02-09] MEDS: morphine 4 MG/ML VIAL IV PRN (13:05)
--- NOTE | 2017-02-09 15:04 | CONS ---
Date/Time of Note Date/Time of Note DATE: 02/09/17 TIME: 15:02 Assessment/Plan Assessment/Plan Additional Assessment/Plan 1. Chest pain. Assess for acute coronary syndrome in a patient with lung cancer, undergoing chemotherapy, likely secondary to lung cancer.-negative trop x3 - no intervention planned - NO intervention planned 2. Abnormal electrocardiogram with nonspecific ST and T-wave abnormalities, assess for acute coronary syndrome. No active ischemai, Sx likely related to advanced lung disease. 3. Bradycardia, transient while on beta matthew- no indication for pacer. 4. Hypotension-today - satble. 5. Shortness of breath. Rule out congestive heart failure. 6. Lung cancer with ongoing chemotherapy - Rx as needed. 7. Leukocytosis- on anti-Bx as needed 8. Anemia. 9. Thrombocytopenia. Consultation Date/Type/Reason Admit Date/Time Jan 31, 2017 at 18:59 Initial Consult Date 02/01/17 Type of Consultation: Pulmonary Referring Provider: TRAMAINE ELLSWORTH 24 HR Interval Summary Free Text/Dictation NO acute change - no significant ectopy on tele ROS: No fever, no chills, no nausea, no vomiting, no diarrhea/constipation No recent weight changes No chest pain now, no PND, no orthopnea + SOB No dizziness, blurred vision No thirst, no heat or cold intolerance Exam/Review of Systems Vital Signs Vitals Vital Signs Date Time Temp Pulse Resp B/P Pulse Ox O2 Delivery O2 Flow Rate FiO2 02/09/17 14:00 84 18 95 Nasal Cannula 4.0 02/09/17 11:45 97.4 97/70 02/09/17 03:35 30 Intake and Output 02/08/17 02/08/17 02/09/17 15:00 23:00 07:00 Intake Total 480 ml Balance 480 ml Exam General: WN/WD/NAD, AOx 3 HEENT: Unicetric/atraumatic/EOMI (follows commands) NECK: JVD elevated, no thyromegaly Lymph: no lymphadenopathy HEART: regular with no S3, II/ systolic murmur at apex LUNGS: Coarse sounds, WHEEZING ABD: soft, NT, ND, +BS : Intact Neuro: non focal SKIN: chronic changes EXT: trace edema Results Result Diagram: 02/09/17 0638 02/09/17 0638 Results 24 hrs Laboratory Tests Test 02/08/17 22:22 02/09/17 06:38 Vancomycin Level Trough 20.8 *H White Blood Count 7.0 # Red Blood Count 2.60 L Hemoglobin 8.4 L Hematocrit 27.9 L Mean Corpuscular Volume 107.3 H Mean Corpuscular Hemoglobin 32.3 Mean Corpuscular Hemoglobin Concent 30.1 L Red Cell Distribution Width 15.3 H Platelet Count 122 L Mean Platelet Volume 10.3 Neutrophils % 83.7 H Lymphocytes % 6.5 L Monocytes % 8.8 Eosinophils % 0.1 Basophils % 0.3 Nucleated Red Blood Cells % 0.0 Neutrophils # 5.8 Lymphocytes # 0.5 L Monocytes # 0.6 Eosinophils # 0.0 Basophils # 0.0 Nucleated Red Blood Cells # 0.0 Sodium Level 140 Potassium Level 4.0 Chloride Level 108 Carbon Dioxide Level 27 Anion Gap 9 Blood Urea Nitrogen 11 Creatinine 1.19 Glucose Level 92 Calcium Level 8.3 L Medications Medications Current Medications Aspirin (Halfprin) 81 mg Q7D PO Last administered on 02/08/17 09:04; Admin Dose 81 MG; Start 02/01/17 at 09:00 Atorvastatin Calcium (Lipitor) 20 mg QHS PO Last administered on 02/08/17 20: 41; Admin Dose 20 MG; Start 01/31/17 at 21:00 Escitalopram Oxalate (Lexapro) 10 mg DAILY PO Last administered on 02/09/17 09 :12; Admin Dose 10 MG; Start 02/01/17 at 09:00 Furosemide (Lasix) 20 mg DAILY PO Last administered on 02/02/17 09:07; Admin Dose 20 MG; Start 02/01/17 at 09:00; Status Future Hold Ondansetron HCl (Zofran Inj) 4 mg Q6 PRN IV NAUSEA Last administered on 13:05; Admin Dose 4 MG; Start 01/31/17 at 19:30 Enoxaparin Sodium (Lovenox) 30 mg DAILY SC Last administered on 02/08/17 09:05 ; Admin Dose 30 MG; Start 02/01/17 at 09:00 Morphine Sulfate (Ms Contin (Er)) 15 mg BID PO Last administered on 02/09/17 09:12; Admin Dose 15 MG; Start 01/31/17 at 23:00 Morphine Sulfate (morphine) 4 mg Q4H PRN IV SEVERE PAIN LEVEL 7-10 Last administered on 02/09/17 13:05; Admin Dose 4 MG; Start 01/31/17 at 23:00 Nitroglycerin (Nitroglycerin (Sl Tab) 0.4 Mg) 1 tab Q5M PRN SL ANGINA; Start at 11:30 Pantoprazole (Protonix Tab) 40 mg DAILY@06 PO Last administered on 02/08/17 06 :41; Admin Dose 40 MG; Start 02/02/17 at 06:00 Voriconazole (Vfend) 200 mg BID PO Last administered on 02/09/17 09:12; Admin Dose 200 MG; Start 02/01/17 at 21:00 Senna (Senokot) 1 tab DAILY PRN PO CONSTIPATION Last administered on 02/03/17 20:36; Admin Dose 1 TAB; Start 02/02/17 at 16:00 Lactulose 20 gm 20 gm DAILY PRN PO CONSTIPATION; Start 02/02/17 at 16:00 Sodium Chloride 1,000 ml @ 75 mls/hr [id number] IV Last administered on 18:40; Admin Dose 75 MLS/HR; Start 02/04/17 at 08:00; Status Future Hold Cefepime HCl (Maxipime 2gm/50 ml (Pmx)) 50 ml @ 100 mls/hr Q12 IVPB Last administered on 02/09/17 09:12; Admin Dose 100 MLS/HR; Start 02/06/17 at 21:00 IV Flush (NS 10 ml) 10 ml PRN PRN IV IV PROTOCOL; Start 02/06/17 at 20:00 Oxymetazoline HCl 2 spray 2 spray BID NASAL Last administered on 02/09/17 09: 12; Admin Dose 2 SPRAY; Start 02/07/17 at 15:00 Vancomycin HCl/ Sodium Chloride (Vancocin/NS) 250 ml @ 83.333 mls/ hr Q24H IVPB Last administered on 02/09/17 05:12; Admin Dose 83.333 MLS/HR; Start at 04:00 FRANCIS ESPINAL MD Feb 09, 2017 15:04
--- NOTE | 2017-02-09 16:31 | CONS ---
Date/Time of Note Date/Time of Note DATE: 02/09/17 TIME: 16:30 Assessment/Plan Assessment/Plan Chief Complaint/Hosp Course metastatic lung CANCER, NSCLC - ON CHEMO WITH RELATIVELY STABLE DIS D/W PULM AND RADIOLOGIST CHEMO ON HOLD DURING HOSPITALIZATION HX PANCYTOPENIA POST CHEMO MONITOR BLOOD COUNT CLOSELY LEUKOCYTOSIS PROB 2 TO POST OBSTRUCTIVE PNA HX LEUKOPENIA- POST CHEMO POST NEUPOGEN IN THE PAST PAIN PAIN CONTROL POST Hypoxemic respiratory failure IN AUG 2016 , reaction to CARBO severe pneumonia/bronchitis due to enterobacter (09/22/2016-) HX DVT TREATED WITH LOVENOX PT SELF- DC 2 TO HEMOPTYSIS OUTPT History of coronary artery disease. Chronic obstructive pulmonary disease HX TOBACCO SMOKING Problems: Consultation Date/Type/Reason Admit Date/Time Jan 31, 2017 at 18:59 Initial Consult Date 01/31/17 Type of Consultation: [facility] Referring Provider: TRAMAINE ELLSWORTH 24 HR Interval Summary Free Text/Dictation ALL NOTED + ACHING Exam/Review of Systems Vital Signs Vitals Vital Signs Date Time Temp Pulse Resp B/P Pulse Ox O2 Delivery O2 Flow Rate FiO2 02/09/17 14:00 84 18 95 Nasal Cannula 4.0 02/09/17 11:45 97.4 97/70 02/09/17 03:35 30 Intake and Output 02/08/17 02/08/17 02/09/17 15:00 23:00 07:00 Intake Total 480 ml Balance 480 ml Exam GENERAL: The patient is alert, awake, complaining of chest pain, shortness of breath. NECK: JVP approximately 9 cm water. CHEST: Upper airway transmitted diffuse rhonchorous sounds. Decreased breath sounds at the bases bilaterally. HEART: Regular rate and rhythm. Normal S1, increased S2. 1/6 systolic murmur. Nondisplaced PMI. ABDOMEN: Positive bowel sounds. Soft. EXTREMITIES: Trace edema, lower extremities bilaterally. 1+ pulses bilateral posterior tibial. Results Result Diagram: 02/09/17 0638 02/09/17 0638 Results 24 hrs Laboratory Tests Test 02/08/17 22:22 02/09/17 06:38 Vancomycin Level Trough 20.8 *H White Blood Count 7.0 # Red Blood Count 2.60 L Hemoglobin 8.4 L Hematocrit 27.9 L Mean Corpuscular Volume 107.3 H Mean Corpuscular Hemoglobin 32.3 Mean Corpuscular Hemoglobin Concent 30.1 L Red Cell Distribution Width 15.3 H Platelet Count 122 L Mean Platelet Volume 10.3 Neutrophils % 83.7 H Lymphocytes % 6.5 L Monocytes % 8.8 Eosinophils % 0.1 Basophils % 0.3 Nucleated Red Blood Cells % 0.0 Neutrophils # 5.8 Lymphocytes # 0.5 L Monocytes # 0.6 Eosinophils # 0.0 Basophils # 0.0 Nucleated Red Blood Cells # 0.0 Sodium Level 140 Potassium Level 4.0 Chloride Level 108 Carbon Dioxide Level 27 Anion Gap 9 Blood Urea Nitrogen 11 Creatinine 1.19 Glucose Level 92 Calcium Level 8.3 L Medications Medications Current Medications Aspirin (Halfprin) 81 mg Q7D PO Last administered on 02/08/17 09:04; Admin Dose 81 MG; Start 02/01/17 at 09:00 Atorvastatin Calcium (Lipitor) 20 mg QHS PO Last administered on 02/08/17 20: 41; Admin Dose 20 MG; Start 01/31/17 at 21:00 Escitalopram Oxalate (Lexapro) 10 mg DAILY PO Last administered on 02/09/17 09 :12; Admin Dose 10 MG; Start 02/01/17 at 09:00 Furosemide (Lasix) 20 mg DAILY PO Last administered on 02/02/17 09:07; Admin Dose 20 MG; Start 02/01/17 at 09:00; Status Future Hold Ondansetron HCl (Zofran Inj) 4 mg Q6 PRN IV NAUSEA Last administered on 13:05; Admin Dose 4 MG; Start 01/31/17 at 19:30 Enoxaparin Sodium (Lovenox) 30 mg DAILY SC Last administered on 02/08/17 09:05 ; Admin Dose 30 MG; Start 02/01/17 at 09:00 Morphine Sulfate (Ms Contin (Er)) 15 mg BID PO Last administered on 02/09/17 09:12; Admin Dose 15 MG; Start 01/31/17 at 23:00 Morphine Sulfate (morphine) 4 mg Q4H PRN IV SEVERE PAIN LEVEL 7-10 Last administered on 02/09/17 13:05; Admin Dose 4 MG; Start 01/31/17 at 23:00 Nitroglycerin (Nitroglycerin (Sl Tab) 0.4 Mg) 1 tab Q5M PRN SL ANGINA; Start at 11:30 Pantoprazole (Protonix Tab) 40 mg DAILY@06 PO Last administered on 02/08/17 06 :41; Admin Dose 40 MG; Start 02/02/17 at 06:00 Voriconazole (Vfend) 200 mg BID PO Last administered on 02/09/17 09:12; Admin Dose 200 MG; Start 02/01/17 at 21:00 Senna (Senokot) 1 tab DAILY PRN PO CONSTIPATION Last administered on 02/03/17 20:36; Admin Dose 1 TAB; Start 02/02/17 at 16:00 Lactulose 20 gm 20 gm DAILY PRN PO CONSTIPATION; Start 02/02/17 at 16:00 Sodium Chloride 1,000 ml @ 75 mls/hr [id number] IV Last administered on 18:40; Admin Dose 75 MLS/HR; Start 02/04/17 at 08:00; Status Future Hold Cefepime HCl (Maxipime 2gm/50 ml (Pmx)) 50 ml @ 100 mls/hr Q12 IVPB Last administered on 02/09/17 09:12; Admin Dose 100 MLS/HR; Start 02/06/17 at 21:00 IV Flush (NS 10 ml) 10 ml PRN PRN IV IV PROTOCOL; Start 02/06/17 at 20:00 Oxymetazoline HCl 2 spray 2 spray BID NASAL Last administered on 02/09/17 09: 12; Admin Dose 2 SPRAY; Start 02/07/17 at 15:00 Vancomycin HCl/ Sodium Chloride (Vancocin/NS) 250 ml @ 83.333 mls/ hr Q24H IVPB Last administered on 02/09/17 05:12; Admin Dose 83.333 MLS/HR; Start at 04:00 DAHIANA BABCOCK MD Feb 09, 2017 16:31
[2017-02-09] MEDS: ATORVASTATIN 20 MG TAB PO SCH (21:49)
[2017-02-10] VITALS (16 sets, daily range): BP systolic 97–128; BP diastolic 56–87; PULSE 88–99; RESP 17–20
[2017-02-10] MEDS: LEVALBUTEROL (NEB) 0.63 MG/3 ML AMP HHN SCH ×4 (01:15→19:41)
[2017-02-10] MEDS: VANCOMYCIN 1.25 GM in SOD CHLORIDE 0.9% 250 ML IVPB SCH (04:20)
[2017-02-10] MEDS: PANTOPRAZOLE (EC) 40 MG TAB PO SCH (06:20)
[2017-02-10 07:38] LABS: BASOPHILS % 0.4 % (0.0-2.0); EOSINOPHILS % 0.2 % (0.0-7.0); HEMOGLOBIN 8.9 g/dl (14.0-18.0); LYMPHOCYTES # 0.6 10^3/ul (0.8-2.9); LYMPHOCYTES % 7.5 % (15.0-51.0); MEAN CORPUSCULAR HEMOGLOBIN 32.7 pg (29.0-33.0); MEAN CORPUSCULAR HGB CONC 30.7 g/dl (32.0-37.0); MEAN CORPUSCULAR VOLUME 106.6 fl (82.0-101.0); MEAN PLATELET VOLUME 10.4 fl (7.4-10.4); MONOCYTE # 0.7 10^3/ul (0.3-0.9); MONOCYTES % 8.9 % (0.0-11.0); NEUTROPHIL # 6.7 10^3/ul (1.6-7.5); NEUTROPHILS % 82.5 % (39.0-77.0); PLATELET COUNT 136 10^3/UL (140-415); RED BLOOD COUNT 2.72 10^6/ul (4.70-6.10); RED CELL DISTRIBUTION WIDTH 15.5 % (11.5-14.5); WHITE BLOOD COUNT 8.1 10^3/ul (4.8-10.8)
[2017-02-10 08:27] LABS: CALCIUM 8.3 mg/dl (8.4-10.2); CREATININE 1.24 mg/dl (0.61-1.24); POTASSIUM 4.5 mmol/L (3.5-5.1)
[2017-02-10] MEDS: LEVOTHYROXINE 75 MCG TAB PO SCH (08:51)
[2017-02-10] MEDS: VORICONAZOLE 200 MG TAB PO SCH ×2 (08:52→21:04)
[2017-02-10] MEDS: ESCITALOPRAM 10 MG TAB PO SCH (08:52)
[2017-02-10] MEDS: morphine (ER) 15 MG TAB PO SCH ×2 (08:52→21:05)
[2017-02-10] MEDS: DRONABINOL 2.5 MG CAP PO SCH ×3 (08:52→17:19)
[2017-02-10] MEDS: OXYMETAZOLINE 0.05% 15 ML NAS SPRAY NASAL SCH ×2 (08:53→21:04)
[2017-02-10] MEDS: CEFEPIME 2GM/50 ML (PMX) 50 ML IVPB SCH ×2 (08:53→21:00)
[2017-02-10] MEDS: ENOXAPARIN 30 MG/0.3 ML SYG SC SCH (08:54)
[2017-02-10] MEDS ORDERED: LIDOCAINE 1% (MPF) 5 ML VIAL SC ONE (12:00)
--- NOTE | 2017-02-10 12:36 | RADRPT ---
PROCEDURE: US guidance for PICC line CLINICAL INDICATION: PICC line placement TECHNIQUE: Multiple real-time images were acquired of the patient's arm utilizing a high resolutio n transducer. This was performed by the PICC line nurse for venous access. COMPARISON: None FINDINGS: Ultrasound guidance for PICC line placement. IMPRESSION: Ultrasound guidance for PICC line placement. RPTAT: AA .Maury Mitchell MD, MD Date Time Electronically viewed and signed by .Maury Mitchell MD, on 02/10/2017 12:36 .S/
--- NOTE | 2017-02-10 12:39 | RADRPT ---
PROCEDURE: XR Chest. CLINICAL INDICATION: PICC placement. TECHNIQUE: Portable AP chest x-ray. COMPARISON: 02/08/2017. FINDINGS: The left PICC has its tip in the region of the right atrium. Otherwise, there is no significant inte rval change. There is persistent near-complete opacification of the right hemithorax. The left lung is grossly clear. The cardiomediastinal silhouette is partially obscured. IMPRESSION: Left PICC tip in the region of the right atrium. Recommend retraction by approximately 3-4 cm. Other kwon, no significant interval change. RPTAT: QQ .Clay Magana MD, MD Date Time Electronically viewed and signed by .Clay Magana MD, on 02/10/2017 12:39 .A/
--- NOTE | 2017-02-10 12:43 | PN ---
Date/Time of Note Date/Time of Note DATE: 02/10/17 TIME: 12:42 Assessment/Plan VTE Prophylaxis VTE Prophylaxis Intervention: other Lines/Catheters IV [facility]from [facility] Urinary Cath still in place: No Assessment/Plan Chief Complaint/Hosp Course - Shortness of breath- tolerates O2 3L nc. - Acute appearing nonocclusive deep venous thrombosis in the right subclavian vein- on Lovenox - Acute respiratory failure - pulmonary follows - cardiology follows - BIPAP. - Metastatic lung Cancer - per Oncology- Dr Valiente - BLE trace edema - will do Doppler r/o DVT- DVT neg - Anemia - Monitor CBC - Hyponatremia - IVF- - nephrology follows - Post Hypoxemic respiratory failure IN AUG 2016 , - reaction to CARBO - Severe pneumonia/bronchitis due to enterobacter (09/22/2016-) - Hx Afib - HX Pancytopenia - sp chemo - Monitor CBC - Leukocytosis- possibly sec to post obstructive PNA - per ID consult - HX Leukopenia - SP chemo - SP Neupogen - HX DVT- sp Lovenox -- History of coronary artery disease. - Chronic obstructive pulmonary disease - HX TOBACCO SMOKING Problems: Subjective 24 Hr Interval Summary Free Text/Dictation Unable to interview patient as he is having a procedure done at the time of visit Exam/Review of Systems Vital Signs Vitals Vital Signs Date Time Temp Pulse Resp B/P Pulse Ox O2 Delivery O2 Flow Rate FiO2 02/10/17 12:16 99 02/10/17 12:00 98.7 19 128/71 95 02/10/17 08:05 Nasal Cannula 5.0 02/10/17 05:34 30 Intake and Output 02/09/17 02/09/17 02/10/17 15:00 23:00 07:00 Intake Total 300 ml 480 ml Output Total 900 ml Balance 300 ml -420 ml Exam Unable to examine patient as he is having a procedure done at the time of visit Results Result Diagram: 02/10/1771602/10/17716 Results 24 hrs Laboratory Tests Test 02/10/17 07:17 White Blood Count 8.1 Red Blood Count 2.72 L Hemoglobin 8.9 L Hematocrit 29.0 L Mean Corpuscular Volume 106.6 H Mean Corpuscular Hemoglobin 32.7 Mean Corpuscular Hemoglobin Concent 30.7 L Red Cell Distribution Width 15.5 H Platelet Count 136 L Mean Platelet Volume 10.4 Neutrophils % 82.5 H Lymphocytes % 7.5 L Monocytes % 8.9 Eosinophils % 0.2 Basophils % 0.4 Nucleated Red Blood Cells % 0.0 Neutrophils # 6.7 Lymphocytes # 0.6 L Monocytes # 0.7 Eosinophils # 0.0 Basophils # 0.0 Nucleated Red Blood Cells # 0.0 Sodium Level 139 Potassium Level 4.5 Chloride Level 108 Carbon Dioxide Level 29 Anion Gap 7 L Blood Urea Nitrogen 12 Creatinine 1.24 Glucose Level 81 Calcium Level 8.3 L Medications Medications Current Medications Aspirin (Halfprin) 81 mg Q7D PO Last administered on 02/08/17 09:04; Admin Dose 81 MG; Start 02/01/17 at 09:00 Atorvastatin Calcium (Lipitor) 20 mg QHS PO Last administered on 02/09/17 21: 49; Admin Dose 20 MG; Start 01/31/17 at 21:00 Escitalopram Oxalate (Lexapro) 10 mg DAILY PO Last administered on 02/10/17 08 :52; Admin Dose 10 MG; Start 02/01/17 at 09:00 Furosemide (Lasix) 20 mg DAILY PO Last administered on 02/02/17 09:07; Admin Dose 20 MG; Start 02/01/17 at 09:00; Status Future Hold Ondansetron HCl (Zofran Inj) 4 mg Q6 PRN IV NAUSEA Last administered on 13:05; Admin Dose 4 MG; Start 01/31/17 at 19:30 Enoxaparin Sodium (Lovenox) 30 mg DAILY SC Last administered on 02/10/17 08:54 ; Admin Dose 30 MG; Start 02/01/17 at 09:00 Morphine Sulfate (Ms Contin (Er)) 15 mg BID PO Last administered on 02/10/17 08:52; Admin Dose 15 MG; Start 01/31/17 at 23:00 Morphine Sulfate (morphine) 4 mg Q4H PRN IV SEVERE PAIN LEVEL 7-10 Last administered on 02/09/17 13:05; Admin Dose 4 MG; Start 01/31/17 at 23:00 Nitroglycerin (Nitroglycerin (Sl Tab) 0.4 Mg) 1 tab Q5M PRN SL ANGINA; Start at 11:30 Pantoprazole (Protonix Tab) 40 mg DAILY@06 PO Last administered on 02/10/17 06 :20; Admin Dose 40 MG; Start 02/02/17 at 06:00 Voriconazole (Vfend) 200 mg BID PO Last administered on 02/10/17 08:52; Admin Dose 200 MG; Start 02/01/17 at 21:00 Senna (Senokot) 1 tab DAILY PRN PO CONSTIPATION Last administered on 02/03/17 20:36; Admin Dose 1 TAB; Start 02/02/17 at 16:00 Lactulose 20 gm 20 gm DAILY PRN PO CONSTIPATION; Start 02/02/17 at 16:00 Sodium Chloride 1,000 ml @ 75 mls/hr [id number] IV Last administered on 18:40; Admin Dose 75 MLS/HR; Start 02/04/17 at 08:00; Status Future Hold Cefepime HCl (Maxipime 2gm/50 ml (Pmx)) 50 ml @ 100 mls/hr Q12 IVPB Last administered on 02/10/17 08:53; Admin Dose 100 MLS/HR; Start 02/06/17 at 21:00 IV Flush (NS 10 ml) 10 ml PRN PRN IV IV PROTOCOL; Start 02/06/17 at 20:00 Oxymetazoline HCl 2 spray 2 spray BID NASAL Last administered on 02/10/17 08: 53; Admin Dose 2 SPRAY; Start 02/07/17 at 15:00 Vancomycin HCl/ Sodium Chloride (Vancocin/NS) 250 ml @ 83.333 mls/ hr Q24H IVPB Last administered on 02/10/17 04:20; Admin Dose 83.333 MLS/HR; Start at 04:00 SAQIB DAVIS Feb 10, 2017 12:43
--- NOTE | 2017-02-10 12:58 | CONS ---
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 Aspergillus antibody was >1:64 but aspergillus antigen in serum by EIA was negative during his last admission. 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 given his immunocompromised state - palliative care consult was suggested but pt/ thought it was the same as hospice; therapeutic time provided Problems: Consultation Date/Type/Reason Admit Date/Time Jan 31, 2017 at 18:59 Initial Consult Date 02/01/17 Type of Consultation: id Referring Provider: TRAMAINE ELLSWORTH Exam/Review of Systems Vital Signs Vitals Vital Signs Date Time Temp Pulse Resp B/P Pulse Ox O2 Delivery O2 Flow Rate FiO2 02/10/17 12:16 99 02/10/17 12:00 98.7 19 128/71 95 02/10/17 08:05 Nasal Cannula 5.0 02/10/17 05:34 30 Intake and Output 02/09/17 02/09/17 02/10/17 15:00 23:00 07:00 Intake Total 300 ml 480 ml Output Total 900 ml Balance 300 ml -420 ml Results Result Diagram: 02/10/1771602/10/17716 Results 24 hrs Laboratory Tests Test 02/10/17 07:17 White Blood Count 8.1 Red Blood Count 2.72 L Hemoglobin 8.9 L Hematocrit 29.0 L Mean Corpuscular Volume 106.6 H Mean Corpuscular Hemoglobin 32.7 Mean Corpuscular Hemoglobin Concent 30.7 L Red Cell Distribution Width 15.5 H Platelet Count 136 L Mean Platelet Volume 10.4 Neutrophils % 82.5 H Lymphocytes % 7.5 L Monocytes % 8.9 Eosinophils % 0.2 Basophils % 0.4 Nucleated Red Blood Cells % 0.0 Neutrophils # 6.7 Lymphocytes # 0.6 L Monocytes # 0.7 Eosinophils # 0.0 Basophils # 0.0 Nucleated Red Blood Cells # 0.0 Sodium Level 139 Potassium Level 4.5 Chloride Level 108 Carbon Dioxide Level 29 Anion Gap 7 L Blood Urea Nitrogen 12 Creatinine 1.24 Glucose Level 81 Calcium Level 8.3 L Medications Medications Current Medications Aspirin (Halfprin) 81 mg Q7D PO Last administered on 02/08/17 09:04; Admin Dose 81 MG; Start 02/01/17 at 09:00 Atorvastatin Calcium (Lipitor) 20 mg QHS PO Last administered on 02/09/17 21: 49; Admin Dose 20 MG; Start 01/31/17 at 21:00 Escitalopram Oxalate (Lexapro) 10 mg DAILY PO Last administered on 02/10/17 08 :52; Admin Dose 10 MG; Start 02/01/17 at 09:00 Furosemide (Lasix) 20 mg DAILY PO Last administered on 02/02/17 09:07; Admin Dose 20 MG; Start 02/01/17 at 09:00; Status Future Hold Ondansetron HCl (Zofran Inj) 4 mg Q6 PRN IV NAUSEA Last administered on 13:05; Admin Dose 4 MG; Start 01/31/17 at 19:30 Enoxaparin Sodium (Lovenox) 30 mg DAILY SC Last administered on 02/10/17 08:54 ; Admin Dose 30 MG; Start 02/01/17 at 09:00 Morphine Sulfate (Ms Contin (Er)) 15 mg BID PO Last administered on 02/10/17 08:52; Admin Dose 15 MG; Start 01/31/17 at 23:00 Morphine Sulfate (morphine) 4 mg Q4H PRN IV SEVERE PAIN LEVEL 7-10 Last administered on 02/09/17 13:05; Admin Dose 4 MG; Start 01/31/17 at 23:00 Nitroglycerin (Nitroglycerin (Sl Tab) 0.4 Mg) 1 tab Q5M PRN SL ANGINA; Start at 11:30 Pantoprazole (Protonix Tab) 40 mg DAILY@06 PO Last administered on 02/10/17 06 :20; Admin Dose 40 MG; Start 02/02/17 at 06:00 Voriconazole (Vfend) 200 mg BID PO Last administered on 02/10/17 08:52; Admin Dose 200 MG; Start 02/01/17 at 21:00 Senna (Senokot) 1 tab DAILY PRN PO CONSTIPATION Last administered on 02/03/17 20:36; Admin Dose 1 TAB; Start 02/02/17 at 16:00 Lactulose 20 gm 20 gm DAILY PRN PO CONSTIPATION; Start 02/02/17 at 16:00 Sodium Chloride 1,000 ml @ 75 mls/hr [id number] IV Last administered on 18:40; Admin Dose 75 MLS/HR; Start 02/04/17 at 08:00; Status Future Hold Cefepime HCl (Maxipime 2gm/50 ml (Pmx)) 50 ml @ 100 mls/hr Q12 IVPB Last administered on 02/10/17 08:53; Admin Dose 100 MLS/HR; Start 02/06/17 at 21:00 IV Flush (NS 10 ml) 10 ml PRN PRN IV IV PROTOCOL; Start 02/06/17 at 20:00 Oxymetazoline HCl 2 spray 2 spray BID NASAL Last administered on 02/10/17 08: 53; Admin Dose 2 SPRAY; Start 02/07/17 at 15:00 Vancomycin HCl/ Sodium Chloride (Vancocin/NS) 250 ml @ 83.333 mls/ hr Q24H IVPB Last administered on 02/10/17 04:20; Admin Dose 83.333 MLS/HR; Start at 04:00 DELIO DIALLO MD Feb 10, 2017 12:58
--- NOTE | 2017-02-10 14:28 | CONS ---
Date/Time of Note Date/Time of Note DATE: 02/10/17 TIME: 14:26 Assessment/Plan Assessment/Plan Additional Assessment/Plan 1. Chest pain. Assess for acute coronary syndrome in a patient with lung cancer, undergoing chemotherapy, likely secondary to lung cancer.-negative trop x3 - no intervention planned - NO intervention planned - STABLE. 2. Abnormal electrocardiogram with nonspecific ST and T-wave abnormalities, assess for acute coronary syndrome. No active ischemai, Sx likely related to advanced lung disease. 3. Bradycardia, transient while on beta matthew- no indication for pacer. HR well Rx now. 4. Hypotension-today - satble. 5. Shortness of breath. Rule out congestive heart failure. 6. Lung cancer with ongoing chemotherapy - Rx as needed. CHEMO rx. 7. Leukocytosis- on anti-Bx as needed 8. Anemia. 9. Thrombocytopenia. Consultation Date/Type/Reason Admit Date/Time Jan 31, 2017 at 18:59 Initial Consult Date 02/01/17 Type of Consultation: id Referring Provider: TRAMAINE ELLSWORTH 24 HR Interval Summary Free Text/Dictation NO acute events - stable SOB. ROS: No fever, no chills, no nausea, no vomiting, no diarrhea/constipation No recent weight changes No chest pain, no PND, no orthopnea + SOB No dizziness, blurred vision No thirst, no heat or cold intolerance Exam/Review of Systems Vital Signs Vitals Vital Signs Date Time Temp Pulse Resp B/P Pulse Ox O2 Delivery O2 Flow Rate FiO2 02/10/17 12:16 99 02/10/17 12:00 98.7 19 128/71 95 02/10/17 08:05 Nasal Cannula 5.0 02/10/17 05:34 30 Intake and Output 02/09/17 02/09/17 02/10/17 15:00 23:00 07:00 Intake Total 300 ml 480 ml Output Total 900 ml Balance 300 ml -420 ml Exam General: WN/WD/NAD, AOx 3 HEENT: Unicetric/atraumatic/EOMI (follows commands) NECK: JVD elevated, no thyromegaly Lymph: no lymphadenopathy HEART: regular with no S3, II/ systolic murmur at apex + wheezing LUNGS: Coarse sounds ABD: soft, NT, ND, +BS : Intact Neuro: non focal SKIN: chronic changes EXT: trace edema Results Result Diagram: 02/10/1717 02/10/1717 Results 24 hrs Laboratory Tests Test 02/10/17 07:17 White Blood Count 8.1 Red Blood Count 2.72 L Hemoglobin 8.9 L Hematocrit 29.0 L Mean Corpuscular Volume 106.6 H Mean Corpuscular Hemoglobin 32.7 Mean Corpuscular Hemoglobin Concent 30.7 L Red Cell Distribution Width 15.5 H Platelet Count 136 L Mean Platelet Volume 10.4 Neutrophils % 82.5 H Lymphocytes % 7.5 L Monocytes % 8.9 Eosinophils % 0.2 Basophils % 0.4 Nucleated Red Blood Cells % 0.0 Neutrophils # 6.7 Lymphocytes # 0.6 L Monocytes # 0.7 Eosinophils # 0.0 Basophils # 0.0 Nucleated Red Blood Cells # 0.0 Sodium Level 139 Potassium Level 4.5 Chloride Level 108 Carbon Dioxide Level 29 Anion Gap 7 L Blood Urea Nitrogen 12 Creatinine 1.24 Glucose Level 81 Calcium Level 8.3 L Medications Medications Current Medications Aspirin (Halfprin) 81 mg Q7D PO Last administered on 02/08/17 09:04; Admin Dose 81 MG; Start 02/01/17 at 09:00 Atorvastatin Calcium (Lipitor) 20 mg QHS PO Last administered on 02/09/17 21: 49; Admin Dose 20 MG; Start 01/31/17 at 21:00 Escitalopram Oxalate (Lexapro) 10 mg DAILY PO Last administered on 02/10/17 08 :52; Admin Dose 10 MG; Start 02/01/17 at 09:00 Furosemide (Lasix) 20 mg DAILY PO Last administered on 02/02/17 09:07; Admin Dose 20 MG; Start 02/01/17 at 09:00; Status Future Hold Ondansetron HCl (Zofran Inj) 4 mg Q6 PRN IV NAUSEA Last administered on 13:05; Admin Dose 4 MG; Start 01/31/17 at 19:30 Enoxaparin Sodium (Lovenox) 30 mg DAILY SC Last administered on 02/10/17 08:54 ; Admin Dose 30 MG; Start 02/01/17 at 09:00 Morphine Sulfate (Ms Contin (Er)) 15 mg BID PO Last administered on 02/10/17 08:52; Admin Dose 15 MG; Start 01/31/17 at 23:00 Morphine Sulfate (morphine) 4 mg Q4H PRN IV SEVERE PAIN LEVEL 7-10 Last administered on 02/09/17 13:05; Admin Dose 4 MG; Start 01/31/17 at 23:00 Nitroglycerin (Nitroglycerin (Sl Tab) 0.4 Mg) 1 tab Q5M PRN SL ANGINA; Start at 11:30 Pantoprazole (Protonix Tab) 40 mg DAILY@06 PO Last administered on 02/10/17 06 :20; Admin Dose 40 MG; Start 02/02/17 at 06:00 Voriconazole (Vfend) 200 mg BID PO Last administered on 02/10/17 08:52; Admin Dose 200 MG; Start 02/01/17 at 21:00 Senna (Senokot) 1 tab DAILY PRN PO CONSTIPATION Last administered on 02/03/17 20:36; Admin Dose 1 TAB; Start 02/02/17 at 16:00 Lactulose 20 gm 20 gm DAILY PRN PO CONSTIPATION; Start 02/02/17 at 16:00 Sodium Chloride 1,000 ml @ 75 mls/hr [id number] IV Last administered on 18:40; Admin Dose 75 MLS/HR; Start 02/04/17 at 08:00; Status Future Hold Cefepime HCl (Maxipime 2gm/50 ml (Pmx)) 50 ml @ 100 mls/hr Q12 IVPB Last administered on 02/10/17 08:53; Admin Dose 100 MLS/HR; Start 02/06/17 at 21:00 IV Flush (NS 10 ml) 10 ml PRN PRN IV IV PROTOCOL; Start 02/06/17 at 20:00 Oxymetazoline HCl 2 spray 2 spray BID NASAL Last administered on 02/10/17 08: 53; Admin Dose 2 SPRAY; Start 02/07/17 at 15:00 Vancomycin HCl/ Sodium Chloride (Vancocin/NS) 250 ml @ 83.333 mls/ hr Q24H IVPB Last administered on 02/10/17 04:20; Admin Dose 83.333 MLS/HR; Start at 04:00 FRANCIS ESPINAL MD Feb 10, 2017 14:28
--- NOTE | 2017-02-10 16:30 | CONS ---
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 Aspergillus antibody was >1:64 but aspergillus antigen in serum by EIA was negative during his last admission. 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 given his immunocompromised state - palliative care consult was suggested but pt/ thought it was the same as hospice; therapeutic time provided- Consultation Date/Type/Reason Admit Date/Time Jan 31, 2017 at 18:59 Initial Consult Date 02/01/17 Type of Consultation: id Referring Provider: TRAMAINE ELLSWORTH 24 HR Interval Summary Free Text/Dictation 1115- afebrile, denies any pain, dw staff Constitutional: requiring O2 Detailed Summary Respiratory: shortness of breath Cardiovascular: no complaints Gastrointestinal: no complaints Genitourinary: no complaints Musculoskeletal: no complaints Exam/Review of Systems Vital Signs Vitals Vital Signs Date Time Temp Pulse Resp B/P Pulse Ox O2 Delivery O2 Flow Rate FiO2 02/10/17 14:50 5.0 02/10/17 14:50 102 18 95 Nasal Cannula 02/10/17 12:00 98.7 128/71 02/10/17 05:34 30 Intake and Output 02/09/17 02/09/17 02/10/17 15:00 23:00 07:00 Intake Total 300 ml 480 ml Output Total 900 ml Balance 300 ml -420 ml Exam 1115- Constitutional: alert, well developed Respiratory: diminished breath sounds Cardiovascular: nl pulses, regular rate and rhythm Gastrointestinal: non-tender, soft Musculoskeletal: nl extremities to inspection Extremities: normal pulses Results Result Diagram: 02/10/1717 02/10/17 0717 Results 24 hrs Laboratory Tests Test 02/10/17 07:17 White Blood Count 8.1 Red Blood Count 2.72 L Hemoglobin 8.9 L Hematocrit 29.0 L Mean Corpuscular Volume 106.6 H Mean Corpuscular Hemoglobin 32.7 Mean Corpuscular Hemoglobin Concent 30.7 L Red Cell Distribution Width 15.5 H Platelet Count 136 L Mean Platelet Volume 10.4 Neutrophils % 82.5 H Lymphocytes % 7.5 L Monocytes % 8.9 Eosinophils % 0.2 Basophils % 0.4 Nucleated Red Blood Cells % 0.0 Neutrophils # 6.7 Lymphocytes # 0.6 L Monocytes # 0.7 Eosinophils # 0.0 Basophils # 0.0 Nucleated Red Blood Cells # 0.0 Sodium Level 139 Potassium Level 4.5 Chloride Level 108 Carbon Dioxide Level 29 Anion Gap 7 L Blood Urea Nitrogen 12 Creatinine 1.24 Glucose Level 81 Calcium Level 8.3 L Medications Medications Current Medications Aspirin (Halfprin) 81 mg Q7D PO Last administered on 02/08/17 09:04; Admin Dose 81 MG; Start 02/01/17 at 09:00 Atorvastatin Calcium (Lipitor) 20 mg QHS PO Last administered on 02/09/17 21: 49; Admin Dose 20 MG; Start 01/31/17 at 21:00 Escitalopram Oxalate (Lexapro) 10 mg DAILY PO Last administered on 02/10/17 08 :52; Admin Dose 10 MG; Start 02/01/17 at 09:00 Furosemide (Lasix) 20 mg DAILY PO Last administered on 02/02/17 09:07; Admin Dose 20 MG; Start 02/01/17 at 09:00; Status Future Hold Ondansetron HCl (Zofran Inj) 4 mg Q6 PRN IV NAUSEA Last administered on 13:05; Admin Dose 4 MG; Start 01/31/17 at 19:30 Enoxaparin Sodium (Lovenox) 30 mg DAILY SC Last administered on 02/10/17 08:54 ; Admin Dose 30 MG; Start 02/01/17 at 09:00 Morphine Sulfate (Ms Contin (Er)) 15 mg BID PO Last administered on 02/10/17 08:52; Admin Dose 15 MG; Start 01/31/17 at 23:00 Morphine Sulfate (morphine) 4 mg Q4H PRN IV SEVERE PAIN LEVEL 7-10 Last administered on 02/09/17 13:05; Admin Dose 4 MG; Start 01/31/17 at 23:00 Nitroglycerin (Nitroglycerin (Sl Tab) 0.4 Mg) 1 tab Q5M PRN SL ANGINA; Start at 11:30 Pantoprazole (Protonix Tab) 40 mg DAILY@06 PO Last administered on 02/10/17 06 :20; Admin Dose 40 MG; Start 02/02/17 at 06:00 Voriconazole (Vfend) 200 mg BID PO Last administered on 02/10/17 08:52; Admin Dose 200 MG; Start 02/01/17 at 21:00 Senna (Senokot) 1 tab DAILY PRN PO CONSTIPATION Last administered on 02/03/17 20:36; Admin Dose 1 TAB; Start 02/02/17 at 16:00 Lactulose 20 gm 20 gm DAILY PRN PO CONSTIPATION; Start 02/02/17 at 16:00 Sodium Chloride 1,000 ml @ 75 mls/hr [id number] IV Last administered on 18:40; Admin Dose 75 MLS/HR; Start 02/04/17 at 08:00; Status Future Hold Cefepime HCl (Maxipime 2gm/50 ml (Pmx)) 50 ml @ 100 mls/hr Q12 IVPB Last administered on 02/10/17 08:53; Admin Dose 100 MLS/HR; Start 02/06/17 at 21:00 IV Flush (NS 10 ml) 10 ml PRN PRN IV IV PROTOCOL; Start 02/06/17 at 20:00 Oxymetazoline HCl 2 spray 2 spray BID NASAL Last administered on 02/10/17 08: 53; Admin Dose 2 SPRAY; Start 02/07/17 at 15:00 Vancomycin HCl/ Sodium Chloride (Vancocin/NS) 250 ml @ 83.333 mls/ hr Q24H IVPB Last administered on 02/10/17t 04:20; Admin Dose 83.333 MLS/HR; Start at 04:00 TRAMAINE ELLSWORTH Feb 10, 2017 16:30
--- NOTE | 2017-02-10 17:58 | CONS ---
Date/Time of Note Date/Time of Note DATE: 02/10/17 TIME: 17:57 Consult Date/Type/Reason Admit Date/Time Jan 31, 2017 at 18:59 Initial Consult Date 02/01/17 Type of Consultation: Pulm Ordering Provider: TRAMAINE ELLSWORTH Subjective No events. Objective Vital Signs Date Time Temp Pulse Resp B/P Pulse Ox O2 Delivery O2 Flow Rate FiO2 02/10/17 16:52 91 02/10/17 16:34 97.6 18 97/65 96 02/10/17 14:50 5.0 02/10/17 14:50 Nasal Cannula 02/10/17 05:34 30 Intake and Output 02/09/17 02/09/17 02/10/17 15:00 23:00 07:00 Intake Total 300 ml 480 ml Output Total 900 ml Balance 300 ml -420 ml Exam NECK: Supple. No JVD, lymphadenopathy. CARDIAC: S1, S2. No added sounds or murmurs. CHEST: Diminished air entry bilaterally. ABDOMEN: Soft, nontender. No guarding or rebound. EXTREMITIES: No clubbing, cyanosis or edema. Results/Medications Result Diagram: 02/10/1771602/10/1717 Results 24 hrs Laboratory Tests Test 02/10/17 07:17 White Blood Count 8.1 Red Blood Count 2.72 L Hemoglobin 8.9 L Hematocrit 29.0 L Mean Corpuscular Volume 106.6 H Mean Corpuscular Hemoglobin 32.7 Mean Corpuscular Hemoglobin Concent 30.7 L Red Cell Distribution Width 15.5 H Platelet Count 136 L Mean Platelet Volume 10.4 Neutrophils % 82.5 H Lymphocytes % 7.5 L Monocytes % 8.9 Eosinophils % 0.2 Basophils % 0.4 Nucleated Red Blood Cells % 0.0 Neutrophils # 6.7 Lymphocytes # 0.6 L Monocytes # 0.7 Eosinophils # 0.0 Basophils # 0.0 Nucleated Red Blood Cells # 0.0 Sodium Level 139 Potassium Level 4.5 Chloride Level 108 Carbon Dioxide Level 29 Anion Gap 7 L Blood Urea Nitrogen 12 Creatinine 1.24 Glucose Level 81 Calcium Level 8.3 L Medications Current Medications Aspirin (Halfprin) 81 mg Q7D PO Last administered on 02/08/17t 09:04; Admin Dose 81 MG; Start 02/01/17 at 09:00 Atorvastatin Calcium (Lipitor) 20 mg QHS PO Last administered on 02/09/17 21: 49; Admin Dose 20 MG; Start 01/31/17 at 21:00 Escitalopram Oxalate (Lexapro) 10 mg DAILY PO Last administered on 02/10/17 08 :52; Admin Dose 10 MG; Start 02/01/17 at 09:00 Furosemide (Lasix) 20 mg DAILY PO Last administered on 02/02/17 09:07; Admin Dose 20 MG; Start 02/01/17 at 09:00; Status Future Hold Ondansetron HCl (Zofran Inj) 4 mg Q6 PRN IV NAUSEA Last administered on 13:05; Admin Dose 4 MG; Start 01/31/17 at 19:30 Enoxaparin Sodium (Lovenox) 30 mg DAILY SC Last administered on 02/10/17 08:54 ; Admin Dose 30 MG; Start 02/01/17 at 09:00 Morphine Sulfate (Ms Contin (Er)) 15 mg BID PO Last administered on 02/10/17 08:52; Admin Dose 15 MG; Start 01/31/17 at 23:00 Morphine Sulfate (morphine) 4 mg Q4H PRN IV SEVERE PAIN LEVEL 7-10 Last administered on 02/09/17 13:05; Admin Dose 4 MG; Start 01/31/17 at 23:00 Nitroglycerin (Nitroglycerin (Sl Tab) 0.4 Mg) 1 tab Q5M PRN SL ANGINA; Start at 11:30 Pantoprazole (Protonix Tab) 40 mg DAILY@06 PO Last administered on 02/10/17 06 :20; Admin Dose 40 MG; Start 02/02/17 at 06:00 Voriconazole (Vfend) 200 mg BID PO Last administered on 02/10/17 08:52; Admin Dose 200 MG; Start 02/01/17 at 21:00 Senna (Senokot) 1 tab DAILY PRN PO CONSTIPATION Last administered on 02/03/17 20:36; Admin Dose 1 TAB; Start 02/02/17 at 16:00 Lactulose 20 gm 20 gm DAILY PRN PO CONSTIPATION; Start 02/02/17 at 16:00 Sodium Chloride 1,000 ml @ 75 mls/hr [id number] IV Last administered on 18:40; Admin Dose 75 MLS/HR; Start 02/04/17 at 08:00; Status Future Hold Cefepime HCl (Maxipime 2gm/50 ml (Pmx)) 50 ml @ 100 mls/hr Q12 IVPB Last administered on 02/10/17 08:53; Admin Dose 100 MLS/HR; Start 02/06/17 at 21:00 IV Flush (NS 10 ml) 10 ml PRN PRN IV IV PROTOCOL; Start 02/06/17 at 20:00 Oxymetazoline HCl 2 spray 2 spray BID NASAL Last administered on 02/10/17 08: 53; Admin Dose 2 SPRAY; Start 02/07/17 at 15:00 Vancomycin HCl/ Sodium Chloride (Vancocin/NS) 250 ml @ 83.333 mls/ hr Q24H IVPB Last administered on 02/10/17 04:20; Admin Dose 83.333 MLS/HR; Start at 04:00 Assessment/Plan Additional Assessment/Plan IMPRESSION: 1. Postobstructive pneumonia. 2. Metastatic non-small cell lung cancer. 3. Possible component of chronic obstructive pulmonary disease exacerbation. 4. Nonocclusive upper extremity deep vein thrombosis. RECS: 1. Abx 2. CPT 3. ELIZABETH Zimmerman MD Feb 10, 2017 17:58
--- NOTE | 2017-02-10 19:09 | CONS ---
Date/Time of Note Date/Time of Note DATE: 02/10/17 TIME: 19:09 Assessment/Plan Assessment/Plan Chief Complaint/Hosp Course metastatic lung CANCER, NSCLC - ON CHEMO WITH RELATIVELY STABLE DIS D/W PULM AND RADIOLOGIST CHEMO ON HOLD DURING HOSPITALIZATION HX PANCYTOPENIA POST CHEMO MONITOR BLOOD COUNT CLOSELY LEUKOCYTOSIS PROB 2 TO POST OBSTRUCTIVE PNA HX LEUKOPENIA- POST CHEMO POST NEUPOGEN IN THE PAST PAIN PAIN CONTROL POST Hypoxemic respiratory failure IN AUG 2016 , reaction to CARBO severe pneumonia/bronchitis due to enterobacter (09/22/2016-) HX DVT TREATED WITH LOVENOX PT SELF- DC 2 TO HEMOPTYSIS OUTPT History of coronary artery disease. Chronic obstructive pulmonary disease HX TOBACCO SMOKING Problems: Consultation Date/Type/Reason Admit Date/Time Jan 31, 2017 at 18:59 Initial Consult Date 01/31/17 Type of Consultation: [facility] Referring Provider: TRAMAINE ELLSWORTH 24 HR Interval Summary Free Text/Dictation ALL 'NOTED WEAK Exam/Review of Systems Vital Signs Vitals Vital Signs Date Time Temp Pulse Resp B/P Pulse Ox O2 Delivery O2 Flow Rate FiO2 02/10/17 16:52 91 02/10/17 16:34 97.6 18 97/65 96 02/10/17 14:50 5.0 02/10/17 14:50 Nasal Cannula 02/10/17 05:34 30 Intake and Output 02/09/17 02/09/17 02/10/17 15:00 23:00 07:00 Intake Total 300 ml 480 ml Output Total 900 ml Balance 300 ml -420 ml Exam GENERAL: The patient is alert, awake, complaining of chest pain, shortness of breath. NECK: JVP approximately 9 cm water. CHEST: Upper airway transmitted diffuse rhonchorous sounds. Decreased breath sounds at the bases bilaterally. HEART: Regular rate and rhythm. Normal S1, increased S2. 1/6 systolic murmur. Nondisplaced PMI. ABDOMEN: Positive bowel sounds. Soft. EXTREMITIES: Trace edema, lower extremities bilaterally. 1+ pulses bilateral posterior tibial. Results Result Diagram: 02/10/1717 02/10/1717 Results 24 hrs Laboratory Tests Test 02/10/17 07:17 White Blood Count 8.1 Red Blood Count 2.72 L Hemoglobin 8.9 L Hematocrit 29.0 L Mean Corpuscular Volume 106.6 H Mean Corpuscular Hemoglobin 32.7 Mean Corpuscular Hemoglobin Concent 30.7 L Red Cell Distribution Width 15.5 H Platelet Count 136 L Mean Platelet Volume 10.4 Neutrophils % 82.5 H Lymphocytes % 7.5 L Monocytes % 8.9 Eosinophils % 0.2 Basophils % 0.4 Nucleated Red Blood Cells % 0.0 Neutrophils # 6.7 Lymphocytes # 0.6 L Monocytes # 0.7 Eosinophils # 0.0 Basophils # 0.0 Nucleated Red Blood Cells # 0.0 Sodium Level 139 Potassium Level 4.5 Chloride Level 108 Carbon Dioxide Level 29 Anion Gap 7 L Blood Urea Nitrogen 12 Creatinine 1.24 Glucose Level 81 Calcium Level 8.3 L Medications Medications Current Medications Aspirin (Halfprin) 81 mg Q7D PO Last administered on 02/08/17 09:04; Admin Dose 81 MG; Start 02/01/17 at 09:00 Atorvastatin Calcium (Lipitor) 20 mg QHS PO Last administered on 02/09/17 21: 49; Admin Dose 20 MG; Start 01/31/17 at 21:00 Escitalopram Oxalate (Lexapro) 10 mg DAILY PO Last administered on 02/10/17 08 :52; Admin Dose 10 MG; Start 02/01/17 at 09:00 Furosemide (Lasix) 20 mg DAILY PO Last administered on 02/02/17 09:07; Admin Dose 20 MG; Start 02/01/17 at 09:00; Status Future Hold Ondansetron HCl (Zofran Inj) 4 mg Q6 PRN IV NAUSEA Last administered on 13:05; Admin Dose 4 MG; Start 01/31/17 at 19:30 Enoxaparin Sodium (Lovenox) 30 mg DAILY SC Last administered on 02/10/17 08:54 ; Admin Dose 30 MG; Start 02/01/17 at 09:00 Morphine Sulfate (Ms Contin (Er)) 15 mg BID PO Last administered on 02/10/17 08:52; Admin Dose 15 MG; Start 01/31/17 at 23:00 Morphine Sulfate (morphine) 4 mg Q4H PRN IV SEVERE PAIN LEVEL 7-10 Last administered on 02/09/17 13:05; Admin Dose 4 MG; Start 01/31/17 at 23:00 Nitroglycerin (Nitroglycerin (Sl Tab) 0.4 Mg) 1 tab Q5M PRN SL ANGINA; Start at 11:30 Pantoprazole (Protonix Tab) 40 mg DAILY@06 PO Last administered on 02/10/17 06 :20; Admin Dose 40 MG; Start 02/02/17 at 06:00 Voriconazole (Vfend) 200 mg BID PO Last administered on 02/10/17 08:52; Admin Dose 200 MG; Start 02/01/17 at 21:00 Senna (Senokot) 1 tab DAILY PRN PO CONSTIPATION Last administered on 02/03/17 20:36; Admin Dose 1 TAB; Start 02/02/17 at 16:00 Lactulose 20 gm 20 gm DAILY PRN PO CONSTIPATION; Start 02/02/17 at 16:00 Sodium Chloride 1,000 ml @ 75 mls/hr [id number] IV Last administered on 18:40; Admin Dose 75 MLS/HR; Start 02/04/17 at 08:00; Status Future Hold Cefepime HCl (Maxipime 2gm/50 ml (Pmx)) 50 ml @ 100 mls/hr Q12 IVPB Last administered on 02/10/17 08:53; Admin Dose 100 MLS/HR; Start 02/06/17 at 21:00 IV Flush (NS 10 ml) 10 ml PRN PRN IV IV PROTOCOL; Start 02/06/17 at 20:00 Oxymetazoline HCl 2 spray 2 spray BID NASAL Last administered on 02/10/17 08: 53; Admin Dose 2 SPRAY; Start 02/07/17 at 15:00 Vancomycin HCl/ Sodium Chloride (Vancocin/NS) 250 ml @ 83.333 mls/ hr Q24H IVPB Last administered on 02/10/17 04:20; Admin Dose 83.333 MLS/HR; Start at 04:00 DAHIANA BABCOCK MD Feb 10, 2017 19:09
[2017-02-10] MEDS: ATORVASTATIN 20 MG TAB PO SCH (21:04)
[2017-02-11] VITALS (18 sets, daily range): BP systolic 94–147; BP diastolic 59–86; PULSE 85–107; RESP 15–18
[2017-02-11] MEDS: LEVALBUTEROL (NEB) 0.63 MG/3 ML AMP HHN SCH ×4 (02:05→19:49)
[2017-02-11] MEDS: VANCOMYCIN 1.25 GM in SOD CHLORIDE 0.9% 250 ML IVPB SCH (03:37)
[2017-02-11] MEDS: PANTOPRAZOLE (EC) 40 MG TAB PO SCH (06:03)
[2017-02-11] MEDS: LEVOTHYROXINE 75 MCG TAB PO SCH (06:03)
[2017-02-11] MEDS: morphine 4 MG/ML VIAL IV PRN (06:07)
[2017-02-11] MEDS: DRONABINOL 2.5 MG CAP PO SCH ×3 (08:00→17:43)
[2017-02-11] MEDS: VORICONAZOLE 200 MG TAB PO SCH ×2 (09:18→21:19)
[2017-02-11] MEDS: morphine (ER) 15 MG TAB PO SCH ×2 (09:18→21:19)
[2017-02-11] MEDS: ESCITALOPRAM 10 MG TAB PO SCH (09:18)
[2017-02-11] MEDS: OXYMETAZOLINE 0.05% 15 ML NAS SPRAY NASAL SCH ×2 (09:19→21:18)
[2017-02-11] MEDS: ENOXAPARIN 30 MG/0.3 ML SYG SC SCH (09:19)
[2017-02-11] MEDS: CEFEPIME 2GM/50 ML (PMX) 50 ML IVPB SCH ×2 (09:22→21:28)
--- NOTE | 2017-02-11 10:35 | CONS ---
Date/Time of Note Date/Time of Note DATE: 02/11/17 TIME: 10:35 Assessment/Plan Assessment/Plan Chief Complaint/Hosp Course metastatic lung CANCER, NSCLC - ON CHEMO WITH RELATIVELY STABLE DIS D/W PULM AND RADIOLOGIST CHEMO ON HOLD DURING HOSPITALIZATION HX PANCYTOPENIA POST CHEMO MONITOR BLOOD COUNT CLOSELY LEUKOCYTOSIS PROB 2 TO POST OBSTRUCTIVE PNA HX LEUKOPENIA- POST CHEMO POST NEUPOGEN IN THE PAST PAIN PAIN CONTROL POST Hypoxemic respiratory failure IN AUG 2016 , reaction to CARBO severe pneumonia/bronchitis due to enterobacter (09/22/2016-) HX DVT TREATED WITH LOVENOX PT SELF- DC 2 TO HEMOPTYSIS OUTPT History of coronary artery disease. Chronic obstructive pulmonary disease HX TOBACCO SMOKING Problems: Consultation Date/Type/Reason Admit Date/Time Jan 31, 2017 at 18:59 Initial Consult Date 01/31/17 Type of Consultation: [facility] Referring Provider: TRAMAINE ELLSWORTH 24 HR Interval Summary Free Text/Dictation ALL NOTED NO NEW EVENTS Exam/Review of Systems Vital Signs Vitals Vital Signs Date Time Temp Pulse Resp B/P Pulse Ox O2 Delivery O2 Flow Rate FiO2 02/11/17 08:22 87 02/11/17 08:19 97.7 18 101/65 95 02/11/17 08:12 5.0 02/11/17 08:12 Nasal Cannula 02/11/17 03:30 30 Intake and Output 02/10/17 02/10/17 02/11/17 15:00 23:00 07:00 Intake Total 50 ml 560 ml 400 ml Output Total 700 ml Balance 50 ml 560 ml -300 ml Exam GENERAL: The patient is alert, awake, complaining of chest pain, shortness of breath. NECK: JVP approximately 9 cm water. CHEST: Upper airway transmitted diffuse rhonchorous sounds. Decreased breath sounds at the bases bilaterally. HEART: Regular rate and rhythm. Normal S1, increased S2. 1/6 systolic murmur. Nondisplaced PMI. ABDOMEN: Positive bowel sounds. Soft. EXTREMITIES: Trace edema, lower extremities bilaterally. 1+ pulses bilateral posterior tibial. Results Result Diagram: 02/10/1717 02/10/17 0717 Medications Medications Current Medications Aspirin (Halfprin) 81 mg Q7D PO Last administered on 02/08/17t 09:04; Admin Dose 81 MG; Start 02/01/17 at 09:00 Atorvastatin Calcium (Lipitor) 20 mg QHS PO Last administered on 02/10/17 21: 04; Admin Dose 20 MG; Start 01/31/17 at 21:00 Escitalopram Oxalate (Lexapro) 10 mg DAILY PO Last administered on 02/11/17 09 :18; Admin Dose 10 MG; Start 02/01/17 at 09:00 Furosemide (Lasix) 20 mg DAILY PO Last administered on 02/02/17 09:07; Admin Dose 20 MG; Start 02/01/17 at 09:00; Status Future Hold Ondansetron HCl (Zofran Inj) 4 mg Q6 PRN IV NAUSEA Last administered on 13:05; Admin Dose 4 MG; Start 01/31/17 at 19:30 Enoxaparin Sodium (Lovenox) 30 mg DAILY SC Last administered on 02/11/17 09:19 ; Admin Dose 30 MG; Start 02/01/17 at 09:00 Morphine Sulfate (Ms Contin (Er)) 15 mg BID PO Last administered on 02/11/17 09:18; Admin Dose 15 MG; Start 01/31/17 at 23:00 Morphine Sulfate (morphine) 4 mg Q4H PRN IV SEVERE PAIN LEVEL 7-10 Last administered on 02/11/17 06:07; Admin Dose 4 MG; Start 01/31/17 at 23:00 Nitroglycerin (Nitroglycerin (Sl Tab) 0.4 Mg) 1 tab Q5M PRN SL ANGINA; Start at 11:30 Pantoprazole (Protonix Tab) 40 mg DAILY@06 PO Last administered on 02/11/17 06 :03; Admin Dose 40 MG; Start 02/02/17 at 06:00 Voriconazole (Vfend) 200 mg BID PO Last administered on 02/11/17 09:18; Admin Dose 200 MG; Start 02/01/17 at 21:00 Senna (Senokot) 1 tab DAILY PRN PO CONSTIPATION Last administered on 02/03/17 20:36; Admin Dose 1 TAB; Start 02/02/17 at 16:00 Lactulose 20 gm 20 gm DAILY PRN PO CONSTIPATION; Start 02/02/17 at 16:00 Sodium Chloride 1,000 ml @ 75 mls/hr [id number] IV Last administered on 18:40; Admin Dose 75 MLS/HR; Start 02/04/17 at 08:00; Status Future Hold Cefepime HCl (Maxipime 2gm/50 ml (Pmx)) 50 ml @ 100 mls/hr Q12 IVPB Last administered on 02/11/17 09:22; Admin Dose 100 MLS/HR; Start 02/06/17 at 21:00 IV Flush (NS 10 ml) 10 ml PRN PRN IV IV PROTOCOL; Start 02/06/17 at 20:00 Oxymetazoline HCl 2 spray 2 spray BID NASAL Last administered on 02/11/17 09: 19; Admin Dose 2 SPRAY; Start 02/07/17 at 15:00 Vancomycin HCl/ Sodium Chloride (Vancocin/NS) 250 ml @ 83.333 mls/ hr Q24H IVPB Last administered on 02/11/17 03:37; Admin Dose 83.333 MLS/HR; Start at 04:00 DAHIANA BABCOCK MD Feb 11, 2017 10:35
--- NOTE | 2017-02-11 11:18 | PN ---
Date/Time of Note Date/Time of Note DATE: 02/11/17 TIME: 11:14 Assessment/Plan VTE Prophylaxis VTE Prophylaxis Intervention: SCD's Lines/Catheters IV Catheter Type (from Nrs): PICC Line Central line still needed: Yes Urinary Cath still in place: No Assessment/Plan Chief Complaint/Hosp Course - Problems: Assessment/Plan - sepsis due to recurrent pneumonia, and to a lessor degree due to paronychia - recurrent pneumonia/bronchitis, possible post-obstructive, HCAP - paronychia of L 2nd finger; wound cx grew MSSA, CoNS, and GBS - anemia - thrombocytopenia -resolving - immunocompromised state (chemo, metastatic lung CA) - severe pneumonia/bronchitis due to enterobacter (09/22/2016) - advanced non-small cell lung CA, on outpatient chemotherapy infusion - 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 Aspergillus antibody was >1:64 but aspergillus antigen in serum by EIA was negative during his last admission. 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 Subjective 24 Hr Interval Summary Constitutional: requiring O2 Respiratory: shortness of breath Gastrointestinal: no complaints Genitourinary: no complaints Musculoskeletal: no complaints Neurologic: no complaints Exam/Review of Systems Vital Signs Vitals Vital Signs Date Time Temp Pulse Resp B/P Pulse Ox O2 Delivery O2 Flow Rate FiO2 02/11/17 08:22 87 02/11/17 08:19 97.7 18 101/65 95 02/11/17 08:12 5.0 02/11/17 08:12 Nasal Cannula 02/11/17 03:30 30 Intake and Output 02/10/17 02/10/17 02/11/17 15:00 23:00 07:00 Intake Total 50 ml 560 ml 400 ml Output Total 700 ml Balance 50 ml 560 ml -300 ml Exam Constitutional: alert, obese, well developed Respiratory: diminished breath sounds Cardiovascular: nl pulses Gastrointestinal: non-tender, soft Musculoskeletal: nl extremities to inspection Extremities: edema (BLE- No pain reported) Neurological: nl mental status, nl speech Skin: nl turgor Results Result Diagram: 02/10/1771602/10/17716 Medications Medications Current Medications Aspirin (Halfprin) 81 mg Q7D PO Last administered on 02/08/17 09:04; Admin Dose 81 MG; Start 02/01/17 at 09:00 Atorvastatin Calcium (Lipitor) 20 mg QHS PO Last administered on 02/10/17 21: 04; Admin Dose 20 MG; Start 01/31/17 at 21:00 Escitalopram Oxalate (Lexapro) 10 mg DAILY PO Last administered on 02/11/17 09 :18; Admin Dose 10 MG; Start 02/01/17 at 09:00 Furosemide (Lasix) 20 mg DAILY PO Last administered on 02/02/17 09:07; Admin Dose 20 MG; Start 02/01/17 at 09:00; Status Future Hold Ondansetron HCl (Zofran Inj) 4 mg Q6 PRN IV NAUSEA Last administered on 13:05; Admin Dose 4 MG; Start 01/31/17 at 19:30 Enoxaparin Sodium (Lovenox) 30 mg DAILY SC Last administered on 02/11/17 09:19 ; Admin Dose 30 MG; Start 02/01/17 at 09:00 Morphine Sulfate (Ms Contin (Er)) 15 mg BID PO Last administered on 02/11/17 09:18; Admin Dose 15 MG; Start 01/31/17 at 23:00 Morphine Sulfate (morphine) 4 mg Q4H PRN IV SEVERE PAIN LEVEL 7-10 Last administered on 02/11/17 06:07; Admin Dose 4 MG; Start 01/31/17 at 23:00 Nitroglycerin (Nitroglycerin (Sl Tab) 0.4 Mg) 1 tab Q5M PRN SL ANGINA; Start at 11:30 Pantoprazole (Protonix Tab) 40 mg DAILY@06 PO Last administered on 02/11/17 06 :03; Admin Dose 40 MG; Start 02/02/17 at 06:00 Voriconazole (Vfend) 200 mg BID PO Last administered on 02/11/17 09:18; Admin Dose 200 MG; Start 02/01/17 at 21:00 Senna (Senokot) 1 tab DAILY PRN PO CONSTIPATION Last administered on 02/03/17 20:36; Admin Dose 1 TAB; Start 02/02/17 at 16:00 Lactulose 20 gm 20 gm DAILY PRN PO CONSTIPATION; Start 02/02/17 at 16:00 Sodium Chloride 1,000 ml @ 75 mls/hr [id number] IV Last administered on 18:40; Admin Dose 75 MLS/HR; Start 02/04/17 at 08:00; Status Future Hold Cefepime HCl (Maxipime 2gm/50 ml (Pmx)) 50 ml @ 100 mls/hr Q12 IVPB Last administered on 02/11/17 09:22; Admin Dose 100 MLS/HR; Start 02/06/17 at 21:00 IV Flush (NS 10 ml) 10 ml PRN PRN IV IV PROTOCOL; Start 02/06/17 at 20:00 Oxymetazoline HCl 2 spray 2 spray BID NASAL Last administered on 02/11/17 09: 19; Admin Dose 2 SPRAY; Start 02/07/17 at 15:00 Vancomycin HCl/ Sodium Chloride (Vancocin/NS) 250 ml @ 83.333 mls/ hr Q24H IVPB Last administered on 02/11/17 03:37; Admin Dose 83.333 MLS/HR; Start at 04:00 TRAMAINE ELLSWORTH Feb 11, 2017 11:18
--- NOTE | 2017-02-11 12:49 | PN ---
Date/Time of Note Date/Time of Note DATE: 02/11/17 TIME: 12:48 Assessment/Plan VTE Prophylaxis VTE Prophylaxis Intervention: other Lines/Catheters IV Catheter Type (from Nrs): PICC Line Central line still needed: Yes Urinary Cath still in place: No Assessment/Plan Chief Complaint/Hosp Course - Shortness of breath- tolerates O2 3L nc. - Acute appearing nonocclusive deep venous thrombosis in the right subclavian vein- on Lovenox - Acute respiratory failure - pulmonary follows - cardiology follows - BIPAP. - Metastatic lung Cancer - per Oncology- Dr Valiente - BLE trace edema - will do Doppler r/o DVT- DVT neg - Anemia - Monitor CBC - Hyponatremia - IVF- - nephrology follows - Post Hypoxemic respiratory failure IN AUG 2016 , - reaction to CARBO - Severe pneumonia/bronchitis due to enterobacter (09/22/2016-) - Hx Afib - HX Pancytopenia - sp chemo - Monitor CBC - Leukocytosis- possibly sec to post obstructive PNA - per ID consult - HX Leukopenia - SP chemo - SP Neupogen - HX DVT- sp Lovenox -- History of coronary artery disease. - Chronic obstructive pulmonary disease - HX TOBACCO SMOKING Problems: Subjective 24 Hr Interval Summary Free Text/Dictation Patient complain of shortness of breath Exam/Review of Systems Vital Signs Vitals Vital Signs Date Time Temp Pulse Resp B/P Pulse Ox O2 Delivery O2 Flow Rate FiO2 02/11/17 12:19 88 02/11/17 12:14 98.0 17 94/65 98 02/11/17 08:12 5.0 02/11/17 08:12 Nasal Cannula 02/11/17 03:30 30 Intake and Output 02/10/17 02/10/17 02/11/17 15:00 23:00 07:00 Intake Total 50 ml 560 ml 400 ml Output Total 700 ml Balance 50 ml 560 ml -300 ml Exam Constitutional: well developed Head: atraumatic, normocephalic Neck: supple Respiratory: labored breathing, wheezing Cardiovascular: regular rate and rhythm Gastrointestinal: non-tender, soft Extremities: normal pulses Results Result Diagram: 02/10/17 0717 02/10/17 0717 Medications Medications Current Medications Aspirin (Halfprin) 81 mg Q7D PO Last administered on 02/08/17t 09:04; Admin Dose 81 MG; Start 02/01/17 at 09:00 Atorvastatin Calcium (Lipitor) 20 mg QHS PO Last administered on 02/10/17 21: 04; Admin Dose 20 MG; Start 01/31/17 at 21:00 Escitalopram Oxalate (Lexapro) 10 mg DAILY PO Last administered on 02/11/17 09 :18; Admin Dose 10 MG; Start 02/01/17 at 09:00 Furosemide (Lasix) 20 mg DAILY PO Last administered on 02/02/17 09:07; Admin Dose 20 MG; Start 02/01/17 at 09:00; Status Future Hold Ondansetron HCl (Zofran Inj) 4 mg Q6 PRN IV NAUSEA Last administered on 13:05; Admin Dose 4 MG; Start 01/31/17 at 19:30 Enoxaparin Sodium (Lovenox) 30 mg DAILY SC Last administered on 02/11/17 09:19 ; Admin Dose 30 MG; Start 02/01/17 at 09:00 Morphine Sulfate (Ms Contin (Er)) 15 mg BID PO Last administered on 02/11/17 09:18; Admin Dose 15 MG; Start 01/31/17 at 23:00 Morphine Sulfate (morphine) 4 mg Q4H PRN IV SEVERE PAIN LEVEL 7-10 Last administered on 02/11/17 06:07; Admin Dose 4 MG; Start 01/31/17 at 23:00 Nitroglycerin (Nitroglycerin (Sl Tab) 0.4 Mg) 1 tab Q5M PRN SL ANGINA; Start at 11:30 Pantoprazole (Protonix Tab) 40 mg DAILY@06 PO Last administered on 02/11/17 06 :03; Admin Dose 40 MG; Start 02/02/17 at 06:00 Voriconazole (Vfend) 200 mg BID PO Last administered on 02/11/17 09:18; Admin Dose 200 MG; Start 02/01/17 at 21:00 Senna (Senokot) 1 tab DAILY PRN PO CONSTIPATION Last administered on 02/03/17 20:36; Admin Dose 1 TAB; Start 02/02/17 at 16:00 Lactulose 20 gm 20 gm DAILY PRN PO CONSTIPATION; Start 02/02/17 at 16:00 Sodium Chloride 1,000 ml @ 75 mls/hr [id number] IV Last administered on 18:40; Admin Dose 75 MLS/HR; Start 02/04/17 at 08:00; Status Future Hold Cefepime HCl (Maxipime 2gm/50 ml (Pmx)) 50 ml @ 100 mls/hr Q12 IVPB Last administered on 02/11/17 09:22; Admin Dose 100 MLS/HR; Start 02/06/17 at 21:00 IV Flush (NS 10 ml) 10 ml PRN PRN IV IV PROTOCOL; Start 02/06/17 at 20:00 Oxymetazoline HCl 2 spray 2 spray BID NASAL Last administered on 02/11/17 09: 19; Admin Dose 2 SPRAY; Start 02/07/17 at 15:00 Vancomycin HCl/ Sodium Chloride (Vancocin/NS) 250 ml @ 83.333 mls/ hr Q24H IVPB Last administered on 02/11/17 03:37; Admin Dose 83.333 MLS/HR; Start at 04:00 SAQIB DAVIS Feb 11, 2017 12:49
--- NOTE | 2017-02-11 13:25 | CONS ---
Date/Time of Note Date/Time of Note DATE: 02/11/17 TIME: 13:23 Assessment/Plan Assessment/Plan Additional Assessment/Plan 1. Chest pain - doubt ischemia - NO intervention planned - STABLE. 2. Abnormal electrocardiogram with nonspecific ST and T-wave abnormalities, assess for acute coronary syndrome. No active ischemai, Sx likely related to advanced lung disease. 3. Bradycardia, transient while on beta matthew- no indication for pacer. HR well Rx now. 4. Hypotension-today - satble. 5. Shortness of breath. Rule out congestive heart failure. 6. Lung cancer with ongoing chemotherapy - Rx as needed. CHEMO rx. Chest pain likely pleuritic. 7. Leukocytosis- on anti-Bx as needed 8. Anemia. 9. Thrombocytopenia Consultation Date/Type/Reason Admit Date/Time Jan 31, 2017 at 18:59 Initial Consult Date 02/01/17 Type of Consultation: [facility] Referring Provider: TRAMAINE ELLSWORTH 24 HR Interval Summary Free Text/Dictation Chest pain likely pleuritic. ROS: No fever, no chills, no nausea, no vomiting, no diarrhea/constipation No recent weight changes No chest pain, no PND, no orthopnea +_ No dizziness, blurred vision No thirst, no heat or cold intolerance Exam/Review of Systems Vital Signs Vitals Vital Signs Date Time Temp Pulse Resp B/P Pulse Ox O2 Delivery O2 Flow Rate FiO2 02/11/17 12:19 88 02/11/17 12:14 98.0 17 94/65 98 02/11/17 08:12 5.0 02/11/17 08:12 Nasal Cannula 02/11/17 03:30 30 Intake and Output 02/10/17 02/10/17 02/11/17 15:00 23:00 07:00 Intake Total 50 ml 560 ml 400 ml Output Total 700 ml Balance 50 ml 560 ml -300 ml Exam General: WN/WD/NAD, AOx 3 HEENT: Unicetric/atraumatic/EOMI (follows commands) NECK: JVD elevated, no thyromegaly Lymph: no lymphadenopathy HEART: regular with no S3, II/ systolic murmur at apex LUNGS: Coarse sounds ABD: soft, NT, ND, +BS : Intact Neuro: non focal SKIN: chronic changes EXT: trace edema Results Result Diagram: 9/16/17 0717 9/16/17 0717 Medications Medications Current Medications Aspirin (Halfprin) 81 mg Q7D PO Last administered on 02/08/17 09:04; Admin Dose 81 MG; Start 02/01/17 at 09:00 Atorvastatin Calcium (Lipitor) 20 mg QHS PO Last administered on 02/10/17 21: 04; Admin Dose 20 MG; Start 01/31/17 at 21:00 Escitalopram Oxalate (Lexapro) 10 mg DAILY PO Last administered on 02/11/17 09 :18; Admin Dose 10 MG; Start 02/01/17 at 09:00 Ondansetron HCl (Zofran Inj) 4 mg Q6 PRN IV NAUSEA Last administered on 13:05; Admin Dose 4 MG; Start 01/31/17 at 19:30 Enoxaparin Sodium (Lovenox) 30 mg DAILY SC Last administered on 02/11/17 09:19 ; Admin Dose 30 MG; Start 02/01/17 at 09:00 Morphine Sulfate (Ms Contin (Er)) 15 mg BID PO Last administered on 02/11/17 09:18; Admin Dose 15 MG; Start 01/31/17 at 23:00 Morphine Sulfate (morphine) 4 mg Q4H PRN IV SEVERE PAIN LEVEL 7-10 Last administered on 02/11/17 06:07; Admin Dose 4 MG; Start 01/31/17 at 23:00 Nitroglycerin (Nitroglycerin (Sl Tab) 0.4 Mg) 1 tab Q5M PRN SL ANGINA; Start at 11:30 Pantoprazole (Protonix Tab) 40 mg DAILY@06 PO Last administered on 02/11/17 06 :03; Admin Dose 40 MG; Start 02/02/17 at 06:00 Voriconazole (Vfend) 200 mg BID PO Last administered on 02/11/17 09:18; Admin Dose 200 MG; Start 02/01/17 at 21:00 Senna (Senokot) 1 tab DAILY PRN PO CONSTIPATION Last administered on 02/03/17 20:36; Admin Dose 1 TAB; Start 02/02/17 at 16:00 Lactulose 20 gm 20 gm DAILY PRN PO CONSTIPATION; Start 02/02/17 at 16:00 Sodium Chloride 1,000 ml @ 75 mls/hr [id number] IV Last administered on 18:40; Admin Dose 75 MLS/HR; Start 02/04/17 at 08:00; Status Future Hold Cefepime HCl (Maxipime 2gm/50 ml (Pmx)) 50 ml @ 100 mls/hr Q12 IVPB Last administered on 02/11/17 09:22; Admin Dose 100 MLS/HR; Start 02/06/17 at 21:00 IV Flush (NS 10 ml) 10 ml PRN PRN IV IV PROTOCOL; Start 02/06/17 at 20:00 Oxymetazoline HCl 2 spray 2 spray BID NASAL Last administered on 02/11/17 09: 19; Admin Dose 2 SPRAY; Start 02/07/17 at 15:00 Vancomycin HCl/ Sodium Chloride (Vancocin/NS) 250 ml @ 83.333 mls/ hr Q24H IVPB Last administered on 02/11/17 03:37; Admin Dose 83.333 MLS/HR; Start at 04:00 FRANCIS ESPINAL MD Feb 11, 2017 13:25
--- NOTE | 2017-02-11 15:16 | RADRPT ---
PROCEDURE: XR Chest. CLINICAL INDICATION: Check PICC line position. TECHNIQUE: Single frontal view. COMPARISON: 02/10/2017. 1230 hours. FINDINGS: There is a left arm PICC line with the tip in the lower superior vena cava. There is complete opaci fication of the right hemithorax as seen previously. The heart size cannot be determined. There is no pneumothorax. IMPRESSION: 1. Left arm PICC line tip in satisfactory position. 2. No other change from the prior study done earlier the same day. RPTAT: QQ .Los Stringer MD, Date Time Electronically viewed and signed by .Los Stringer MD, on 02/11/2017 15:16 .R/
[2017-02-11] MEDS: FUROSEMIDE 20 MG INJ IV SCH (17:46)
--- NOTE | 2017-02-11 19:01 | CONS ---
Date/Time of Note Date/Time of Note DATE: 02/11/17 TIME: 19:00 Consult Date/Type/Reason Admit Date/Time Jan 31, 2017 at 18:59 Initial Consult Date 02/01/17 Type of Consultation: Pulm Ordering Provider: TRAMAINE ELLSWORTH Subjective No events overnight. Objective Vital Signs Date Time Temp Pulse Resp B/P Pulse Ox O2 Delivery O2 Flow Rate FiO2 02/11/17 18:37 5.0 02/11/17 16:23 98.4 90 17 112/71 96 02/11/17 12:45 30 02/11/17 08:12 Nasal Cannula Intake and Output 02/10/17 02/10/17 02/11/17 15:00 23:00 07:00 Intake Total 50 ml 560 ml 400 ml Output Total 700 ml Balance 50 ml 560 ml -300 ml Exam HEENT: Neck supple; no JVD; no LAD CVS: RRR, S1 and S2 CHEST: Coarse BS and rhonchi ABD: Soft, NT, + BS EXT: No c/c/e Results/Medications Result Diagram: 02/10/1771602/10/1717 Medications Current Medications Aspirin (Halfprin) 81 mg Q7D PO Last administered on 02/08/17 09:04; Admin Dose 81 MG; Start 02/01/17 at 09:00 Atorvastatin Calcium (Lipitor) 20 mg QHS PO Last administered on 02/10/17 21: 04; Admin Dose 20 MG; Start 01/31/17 at 21:00 Escitalopram Oxalate (Lexapro) 10 mg DAILY PO Last administered on 02/11/17 09 :18; Admin Dose 10 MG; Start 02/01/17 at 09:00 Ondansetron HCl (Zofran Inj) 4 mg Q6 PRN IV NAUSEA Last administered on 13:05; Admin Dose 4 MG; Start 01/31/17 at 19:30 Enoxaparin Sodium (Lovenox) 30 mg DAILY SC Last administered on 02/11/17 09:19 ; Admin Dose 30 MG; Start 02/01/17 at 09:00 Morphine Sulfate (Ms Contin (Er)) 15 mg BID PO Last administered on 02/11/17 09:18; Admin Dose 15 MG; Start 01/31/17 at 23:00 Morphine Sulfate (morphine) 4 mg Q4H PRN IV SEVERE PAIN LEVEL 7-10 Last administered on 02/11/17 06:07; Admin Dose 4 MG; Start 01/31/17 at 23:00 Nitroglycerin (Nitroglycerin (Sl Tab) 0.4 Mg) 1 tab Q5M PRN SL ANGINA; Start at 11:30 Pantoprazole (Protonix Tab) 40 mg DAILY@06 PO Last administered on 02/11/17 06 :03; Admin Dose 40 MG; Start 02/02/17 at 06:00 Voriconazole (Vfend) 200 mg BID PO Last administered on 02/11/17 09:18; Admin Dose 200 MG; Start 02/01/17 at 21:00 Senna (Senokot) 1 tab DAILY PRN PO CONSTIPATION Last administered on 02/03/17 20:36; Admin Dose 1 TAB; Start 02/02/17 at 16:00 Lactulose 20 gm 20 gm DAILY PRN PO CONSTIPATION; Start 02/02/17 at 16:00 Sodium Chloride 1,000 ml @ 75 mls/hr [id number] IV Last administered on 18:40; Admin Dose 75 MLS/HR; Start 02/04/17 at 08:00; Status Future Hold Cefepime HCl (Maxipime 2gm/50 ml (Pmx)) 50 ml @ 100 mls/hr Q12 IVPB Last administered on 02/11/17 09:22; Admin Dose 100 MLS/HR; Start 02/06/17 at 21:00 IV Flush (NS 10 ml) 10 ml PRN PRN IV IV PROTOCOL; Start 02/06/17 at 20:00 Oxymetazoline HCl 2 spray 2 spray BID NASAL Last administered on 02/11/17 09: 19; Admin Dose 2 SPRAY; Start 02/07/17 at 15:00 Vancomycin HCl/ Sodium Chloride (Vancocin/NS) 250 ml @ 83.333 mls/ hr Q24H IVPB Last administered on 02/11/17 03:37; Admin Dose 83.333 MLS/HR; Start at 04:00 Miscellaneous Information (*Rx Drug Level Order Reminder*) VANCOMYCIN TROUGH AT 0300 ONCE ONCE XX ; Start 02/12/17 at 03:00; Stop 02/12/17 at 03:01 Assessment/Plan Additional Assessment/Plan IMP: 1. Postobstructive pneumonia. 2. Metastatic non-small cell lung cancer. 3. Possible component of chronic obstructive pulmonary disease exacerbation. 4. Nonocclusive upper extremity deep vein thrombosis. RECS: 1. Abx 2. CPT/BDs 3. Follow H/H 4. Am labs ELIZABETH VALENZUELA MD Feb 11, 2017 19:01
[2017-02-11] MEDS: ATORVASTATIN 20 MG TAB PO SCH (21:18)
[2017-02-12] VITALS (16 sets, daily range): BP systolic 78–125; BP diastolic 56–85; PULSE 87–95; RESP 17–20
[2017-02-12] MEDS: LEVALBUTEROL (NEB) 0.63 MG/3 ML AMP HHN SCH ×4 (01:35→20:07)
[2017-02-12 03:50] LABS: CALCIUM 8.3 mg/dl (8.4-10.2); CREATININE 1.34 mg/dl (0.61-1.24); POTASSIUM 4.5 mmol/L (3.5-5.1)
[2017-02-12 03:54] LABS: BASOPHILS % 0.6 % (0.0-2.0); EOSINOPHILS % 0.4 % (0.0-7.0); HEMATOCRIT 29.4 % (42.0-52.0); HEMOGLOBIN 9.1 g/dl (14.0-18.0); LYMPHOCYTES # 0.8 10^3/ul (0.8-2.9); MEAN CORPUSCULAR VOLUME 106.5 fl (82.0-101.0); MEAN PLATELET VOLUME 10.3 fl (7.4-10.4); MONOCYTE # 0.8 10^3/ul (0.3-0.9); MONOCYTES % 11.1 % (0.0-11.0); NEUTROPHIL # 5.2 10^3/ul (1.6-7.5); NEUTROPHILS % 75.5 % (39.0-77.0); PLATELET COUNT 140 10^3/UL (140-415); RED BLOOD COUNT 2.76 10^6/ul (4.70-6.10); RED CELL DISTRIBUTION WIDTH 15.3 % (11.5-14.5); WHITE BLOOD COUNT 6.8 10^3/ul (4.8-10.8)
[2017-02-12] MEDS: VANCOMYCIN 1.25 GM in SOD CHLORIDE 0.9% 250 ML IVPB SCH (04:00)
[2017-02-12] MEDS: PANTOPRAZOLE (EC) 40 MG TAB PO SCH (05:38)
[2017-02-12] MEDS: FUROSEMIDE 20 MG INJ IV SCH ×2 (05:38→17:34)
[2017-02-12] MEDS: LEVOTHYROXINE 75 MCG TAB PO SCH (06:34)
--- NOTE | 2017-02-12 09:29 | CONS ---
Date/Time of Note Date/Time of Note DATE: 02/12/17 TIME: 09:29 Consultation Date/Type/Reason Admit Date/Time Jan 31, 2017 at 18:59 Initial Consult Date 02/01/17 Type of Consultation: Pulm Referring Provider: TRAMAINE ELLSWORTH 24 HR Interval Summary Free Text/Dictation NO acute events - VS stable - con't oncology care. Exam/Review of Systems Vital Signs Vitals Vital Signs Date Time Temp Pulse Resp B/P Pulse Ox O2 Delivery O2 Flow Rate FiO2 02/12/17 08:33 89 02/12/17 08:12 97.9 17 120/80 99 02/12/17 07:30 40 02/12/17 00:00 Nasal Cannula 4.0 Intake and Output 02/11/17 02/11/17 02/12/17 15:00 23:00 07:00 Intake Total 50 ml 480 ml 350 ml Output Total 580 ml Balance 50 ml 480 ml -230 ml Results Result Diagram: 02/12/17 0311 02/12/17 0312 Results 24 hrs Laboratory Tests Test 02/12/17 03:11 02/12/17 03:12 White Blood Count 6.8 Red Blood Count 2.76 L Hemoglobin 9.1 L Hematocrit 29.4 L Mean Corpuscular Volume 106.5 H Mean Corpuscular Hemoglobin 33.0 Mean Corpuscular Hemoglobin Concent 31.0 L Red Cell Distribution Width 15.3 H Platelet Count 140 Mean Platelet Volume 10.3 Neutrophils % 75.5 Lymphocytes % 12.0 L Monocytes % 11.1 H Eosinophils % 0.4 Basophils % 0.6 Nucleated Red Blood Cells % 0.0 Neutrophils # 5.2 Lymphocytes # 0.8 Monocytes # 0.8 Eosinophils # 0.0 Basophils # 0.0 Nucleated Red Blood Cells # 0.0 Sodium Level 138 Potassium Level 4.5 Chloride Level 106 Carbon Dioxide Level 30 Anion Gap 7 L Blood Urea Nitrogen 16 Creatinine 1.34 H Glucose Level 82 Calcium Level 8.3 L Vancomycin Level Trough 20.8 *H Medications Medications Current Medications Aspirin (Halfprin) 81 mg Q7D PO Last administered on 02/08/17 09:04; Admin Dose 81 MG; Start 02/01/17 at 09:00 Atorvastatin Calcium (Lipitor) 20 mg QHS PO Last administered on 02/11/17 21: 18; Admin Dose 20 MG; Start 01/31/17 at 21:00 Escitalopram Oxalate (Lexapro) 10 mg DAILY PO Last administered on 02/11/17 09 :18; Admin Dose 10 MG; Start 02/01/17 at 09:00 Ondansetron HCl (Zofran Inj) 4 mg Q6 PRN IV NAUSEA Last administered on 13:05; Admin Dose 4 MG; Start 01/31/17 at 19:30 Enoxaparin Sodium (Lovenox) 30 mg DAILY SC Last administered on 02/11/17 09:19 ; Admin Dose 30 MG; Start 02/01/17 at 09:00 Morphine Sulfate (Ms Contin (Er)) 15 mg BID PO Last administered on 02/11/17 21:19; Admin Dose 15 MG; Start 01/31/17 at 23:00 Morphine Sulfate (morphine) 4 mg Q4H PRN IV SEVERE PAIN LEVEL 7-10 Last administered on 02/11/17 06:07; Admin Dose 4 MG; Start 01/31/17 at 23:00 Nitroglycerin (Nitroglycerin (Sl Tab) 0.4 Mg) 1 tab Q5M PRN SL ANGINA; Start at 11:30 Pantoprazole (Protonix Tab) 40 mg DAILY@06 PO Last administered on 02/12/17 05 :38; Admin Dose 40 MG; Start 02/02/17 at 06:00 Voriconazole (Vfend) 200 mg BID PO Last administered on 02/11/17 21:19; Admin Dose 200 MG; Start 02/01/17 at 21:00 Senna (Senokot) 1 tab DAILY PRN PO CONSTIPATION Last administered on 02/03/17 20:36; Admin Dose 1 TAB; Start 02/02/17 at 16:00 Lactulose 20 gm 20 gm DAILY PRN PO CONSTIPATION; Start 02/02/17 at 16:00 Sodium Chloride 1,000 ml @ 75 mls/hr [id number] IV Last administered on 18:40; Admin Dose 75 MLS/HR; Start 02/04/17 at 08:00; Status Future Hold Cefepime HCl (Maxipime 2gm/50 ml (Pmx)) 50 ml @ 100 mls/hr Q12 IVPB Last administered on 02/11/17 21:28; Admin Dose 100 MLS/HR; Start 02/06/17 at 21:00 IV Flush (NS 10 ml) 10 ml PRN PRN IV IV PROTOCOL; Start 02/06/17 at 20:00 Oxymetazoline HCl 2 spray 2 spray BID NASAL Last administered on 02/11/17 21: 18; Admin Dose 2 SPRAY; Start 02/07/17 at 15:00 Vancomycin HCl (Vancocin) 250 ml @ 125 mls/hr Q36H IVPB ; Start 02/12/17 at 16: 00 FRANCIS ESPINAL MD Feb 12, 2017 09:29
[2017-02-12] MEDS: DRONABINOL 2.5 MG CAP PO SCH ×3 (09:31→17:32)
[2017-02-12] MEDS: morphine (ER) 15 MG TAB PO SCH ×2 (09:31→21:18)
[2017-02-12] MEDS: ESCITALOPRAM 10 MG TAB PO SCH (09:31)
[2017-02-12] MEDS: VORICONAZOLE 200 MG TAB PO SCH ×2 (09:32→20:47)
[2017-02-12] MEDS: OXYMETAZOLINE 0.05% 15 ML NAS SPRAY NASAL SCH ×2 (09:32→20:48)
[2017-02-12] MEDS: CEFEPIME 2GM/50 ML (PMX) 50 ML IVPB SCH (09:34)
[2017-02-12] MEDS: ENOXAPARIN 30 MG/0.3 ML SYG SC SCH (09:51)
--- NOTE | 2017-02-12 10:32 | CONS ---
Date/Time of Note Date/Time of Note DATE: 02/12/17 TIME: 10:30 Assessment/Plan Assessment/Plan Additional Assessment/Plan Assessment and recommendations; 1. Patient admitted with severe pneumonia involving right lung likely postobstructive from extensive metastatic non-small cell lung cancer. 2. Underlying COPD. Continue current treatment. Prognosis is poor. Consultation Date/Type/Reason Admit Date/Time Jan 31, 2017 at 18:59 Initial Consult Date 02/01/17 Type of Consultation: Pulm Referring Provider: TRAMAINE ELLSWORTH 24 HR Interval Summary Free Text/Dictation Patient condition remains tenuous at best. Still requiring BiPAP. Complains of cough and hemoptysis. General exam; elderly male, obese, currently in no distress. Awake and alert. Exam/Review of Systems Vital Signs Vitals Vital Signs Date Time Temp Pulse Resp B/P Pulse Ox O2 Delivery O2 Flow Rate FiO2 02/12/17 08:33 89 02/12/17 08:12 97.9 17 120/80 99 02/12/17 07:30 40 02/12/17 00:00 Nasal Cannula 4.0 Intake and Output 02/11/17 02/11/17 02/12/17 15:00 23:00 07:00 Intake Total 50 ml 480 ml 350 ml Output Total 580 ml Balance 50 ml 480 ml -230 ml Exam HEENT exam; supple neck, no JVD. No lymphadenopathy. Midline trachea. No thyromegaly. Patient has fair dentition. Chest exam; diminished breath sounds right lung. Left lung is fairly clear. S1 -S2 audible, no murmurs. Regular rhythm. Abdomen exam; soft, no organomegaly. Bowel sounds audible. Protuberant. Nontender. Extremity exam; no peripheral edema. [employer] exam; no focal deficit. Results Result Diagram: 02/12/17 0311 02/12/17 0312 Results 24 hrs Laboratory Tests Test 02/12/17 03:11 02/12/17 03:12 White Blood Count 6.8 Red Blood Count 2.76 L Hemoglobin 9.1 L Hematocrit 29.4 L Mean Corpuscular Volume 106.5 H Mean Corpuscular Hemoglobin 33.0 Mean Corpuscular Hemoglobin Concent 31.0 L Red Cell Distribution Width 15.3 H Platelet Count 140 Mean Platelet Volume 10.3 Neutrophils % 75.5 Lymphocytes % 12.0 L Monocytes % 11.1 H Eosinophils % 0.4 Basophils % 0.6 Nucleated Red Blood Cells % 0.0 Neutrophils # 5.2 Lymphocytes # 0.8 Monocytes # 0.8 Eosinophils # 0.0 Basophils # 0.0 Nucleated Red Blood Cells # 0.0 Sodium Level 138 Potassium Level 4.5 Chloride Level 106 Carbon Dioxide Level 30 Anion Gap 7 L Blood Urea Nitrogen 16 Creatinine 1.34 H Glucose Level 82 Calcium Level 8.3 L Vancomycin Level Trough 20.8 *H Medications Medications Current Medications Aspirin (Halfprin) 81 mg Q7D PO Last administered on 02/08/17 09:04; Admin Dose 81 MG; Start 02/01/17 at 09:00 Atorvastatin Calcium (Lipitor) 20 mg QHS PO Last administered on 02/11/17 21: 18; Admin Dose 20 MG; Start 01/31/17 at 21:00 Escitalopram Oxalate (Lexapro) 10 mg DAILY PO Last administered on 02/12/17 09 :31; Admin Dose 10 MG; Start 02/01/17 at 09:00 Ondansetron HCl (Zofran Inj) 4 mg Q6 PRN IV NAUSEA Last administered on 13:05; Admin Dose 4 MG; Start 01/31/17 at 19:30 Enoxaparin Sodium (Lovenox) 30 mg DAILY SC Last administered on 02/12/17 09:51 ; Admin Dose 30 MG; Start 02/01/17 at 09:00 Morphine Sulfate (Ms Contin (Er)) 15 mg BID PO Last administered on 02/12/17 09:31; Admin Dose 15 MG; Start 01/31/17 at 23:00 Morphine Sulfate (morphine) 4 mg Q4H PRN IV SEVERE PAIN LEVEL 7-10 Last administered on 02/11/17 06:07; Admin Dose 4 MG; Start 01/31/17 at 23:00 Nitroglycerin (Nitroglycerin (Sl Tab) 0.4 Mg) 1 tab Q5M PRN SL ANGINA; Start at 11:30 Pantoprazole (Protonix Tab) 40 mg DAILY@06 PO Last administered on 02/12/17 05 :38; Admin Dose 40 MG; Start 02/02/17 at 06:00 Voriconazole (Vfend) 200 mg BID PO Last administered on 02/12/17 09:32; Admin Dose 200 MG; Start 02/01/17 at 21:00 Senna (Senokot) 1 tab DAILY PRN PO CONSTIPATION Last administered on 02/03/17 20:36; Admin Dose 1 TAB; Start 02/02/17 at 16:00 Lactulose 20 gm 20 gm DAILY PRN PO CONSTIPATION; Start 02/02/17 at 16:00 Sodium Chloride 1,000 ml @ 75 mls/hr [id number] IV Last administered on 18:40; Admin Dose 75 MLS/HR; Start 02/04/17 at 08:00; Status Future Hold Cefepime HCl (Maxipime 2gm/50 ml (Pmx)) 50 ml @ 100 mls/hr Q12 IVPB Last administered on 02/12/17 09:34; Admin Dose 100 MLS/HR; Start 02/06/17 at 21:00 IV Flush (NS 10 ml) 10 ml PRN PRN IV IV PROTOCOL; Start 02/06/17 at 20:00 Oxymetazoline HCl 2 spray 2 spray BID NASAL Last administered on 02/12/17 09: 32; Admin Dose 2 SPRAY; Start 02/07/17 at 15:00 Vancomycin HCl (Vancocin) 250 ml @ 125 mls/hr Q36H IVPB ; Start 02/12/17 at 16: 00 ISMA CUTLER Feb 12, 2017 10:32
--- NOTE | 2017-02-12 11:39 | CONS ---
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 Aspergillus antibody was >1:64 but aspergillus antigen in serum by EIA was negative during his last admission. 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 given his immunocompromised state - palliative care consult was suggested but pt/ thought it was the same as hospice; therapeutic time provided- Problems: Consultation Date/Type/Reason Admit Date/Time Jan 31, 2017 at 18:59 Initial Consult Date 02/01/17 Type of Consultation: id Referring Provider: TRAMAINE ELLSWORTH Exam/Review of Systems Vital Signs Vitals Vital Signs Date Time Temp Pulse Resp B/P Pulse Ox O2 Delivery O2 Flow Rate FiO2 02/12/17 08:33 89 02/12/17 08:12 97.9 17 120/80 99 02/12/17 07:30 40 02/12/17 00:00 Nasal Cannula 4.0 Intake and Output 02/11/17 02/11/17 02/12/17 15:00 23:00 07:00 Intake Total 50 ml 480 ml 350 ml Output Total 580 ml Balance 50 ml 480 ml -230 ml Results Result Diagram: 02/12/17 0311 02/12/17 0312 Results 24 hrs Laboratory Tests Test 02/12/17 03:11 02/12/17 03:12 White Blood Count 6.8 Red Blood Count 2.76 L Hemoglobin 9.1 L Hematocrit 29.4 L Mean Corpuscular Volume 106.5 H Mean Corpuscular Hemoglobin 33.0 Mean Corpuscular Hemoglobin Concent 31.0 L Red Cell Distribution Width 15.3 H Platelet Count 140 Mean Platelet Volume 10.3 Neutrophils % 75.5 Lymphocytes % 12.0 L Monocytes % 11.1 H Eosinophils % 0.4 Basophils % 0.6 Nucleated Red Blood Cells % 0.0 Neutrophils # 5.2 Lymphocytes # 0.8 Monocytes # 0.8 Eosinophils # 0.0 Basophils # 0.0 Nucleated Red Blood Cells # 0.0 Sodium Level 138 Potassium Level 4.5 Chloride Level 106 Carbon Dioxide Level 30 Anion Gap 7 L Blood Urea Nitrogen 16 Creatinine 1.34 H Glucose Level 82 Calcium Level 8.3 L Vancomycin Level Trough 20.8 *H Medications Medications Current Medications Aspirin (Halfprin) 81 mg Q7D PO Last administered on 02/08/17 09:04; Admin Dose 81 MG; Start 02/01/17 at 09:00 Atorvastatin Calcium (Lipitor) 20 mg QHS PO Last administered on 02/11/17 21: 18; Admin Dose 20 MG; Start 01/31/17 at 21:00 Escitalopram Oxalate (Lexapro) 10 mg DAILY PO Last administered on 02/12/17 09 :31; Admin Dose 10 MG; Start 02/01/17 at 09:00 Ondansetron HCl (Zofran Inj) 4 mg Q6 PRN IV NAUSEA Last administered on 13:05; Admin Dose 4 MG; Start 01/31/17 at 19:30 Enoxaparin Sodium (Lovenox) 30 mg DAILY SC Last administered on 02/12/17 09:51 ; Admin Dose 30 MG; Start 02/01/17 at 09:00 Morphine Sulfate (Ms Contin (Er)) 15 mg BID PO Last administered on 02/12/17 09:31; Admin Dose 15 MG; Start 01/31/17 at 23:00 Morphine Sulfate (morphine) 4 mg Q4H PRN IV SEVERE PAIN LEVEL 7-10 Last administered on 02/11/17 06:07; Admin Dose 4 MG; Start 01/31/17 at 23:00 Nitroglycerin (Nitroglycerin (Sl Tab) 0.4 Mg) 1 tab Q5M PRN SL ANGINA; Start at 11:30 Pantoprazole (Protonix Tab) 40 mg DAILY@06 PO Last administered on 02/12/17 05 :38; Admin Dose 40 MG; Start 02/02/17 at 06:00 Voriconazole (Vfend) 200 mg BID PO Last administered on 02/12/17 09:32; Admin Dose 200 MG; Start 02/01/17 at 21:00 Senna (Senokot) 1 tab DAILY PRN PO CONSTIPATION Last administered on 02/03/17 20:36; Admin Dose 1 TAB; Start 02/02/17 at 16:00 Lactulose 20 gm 20 gm DAILY PRN PO CONSTIPATION; Start 02/02/17 at 16:00 Sodium Chloride 1,000 ml @ 75 mls/hr [id number] IV Last administered on 18:40; Admin Dose 75 MLS/HR; Start 02/04/17 at 08:00; Status Future Hold Cefepime HCl (Maxipime 2gm/50 ml (Pmx)) 50 ml @ 100 mls/hr Q12 IVPB Last administered on 02/12/17 09:34; Admin Dose 100 MLS/HR; Start 02/06/17 at 21:00 IV Flush (NS 10 ml) 10 ml PRN PRN IV IV PROTOCOL; Start 02/06/17 at 20:00 Oxymetazoline HCl 2 spray 2 spray BID NASAL Last administered on 02/12/17 09: 32; Admin Dose 2 SPRAY; Start 02/07/17 at 15:00 Vancomycin HCl (Vancocin) 250 ml @ 125 mls/hr Q36H IVPB ; Start 02/12/17 at 16: 00 DELIO DIALLO MD Feb 12, 2017 11:39
[2017-02-12] MEDS ORDERED: VANCOMYCIN 1 GM in NS 250 ML IVPB SCH (16:00)
--- NOTE | 2017-02-12 16:30 | PN ---
Date/Time of Note Date/Time of Note DATE: 02/12/17 TIME: 16:20 Assessment/Plan VTE Prophylaxis VTE Prophylaxis Intervention: SCD's Lines/Catheters IV Catheter Type (from [place]): PICC Line Central line still needed: Yes Urinary Cath still in place: No Assessment/Plan Chief Complaint/Hosp Course Patient's complains of bilateral upper and lower extremity swelling, productive cough. Patient continues supplemental oxygen and on BiPAP overnight. Assessment/Plan -Post-obstructive pneumonia Dr. Philly perry is following infection disease consultation. Status post treatment with antibiotics. - Advanced non-small cell lung CA, Dr. Scanlon is following in oncology consultation. - Acute respiratory failure secondary to above. is following in pulmonology consultation. - Nonocclusive deep venous thrombosis in the right subclavian vein. Continue Lovenox. - Acute on chronic diastolic congestive heart failure, continue gentle diuresis , continue to monitor electrolytes. - h/o fungal pneumonia, on maintenance voriconazole - CAD, continue aspirin. - Hyperlipidemia, continue statin - Hypothyroidism, continue levothyroxine. Further recommendations based on clinical course. Plan of care discussed with Dr. Lincoln. Problems: Exam/Review of Systems Vital Signs Vitals Vital Signs Date Time Temp Pulse Resp B/P Pulse Ox O2 Delivery O2 Flow Rate FiO2 02/12/17 16:15 93 02/12/17 16:05 97.9 19 102/64 98 02/12/17 13:46 Nasal Cannula 4.0 02/12/17 07:30 40 Intake and Output 02/11/17 02/11/17 02/12/17 15:00 23:00 07:00 Intake Total 50 ml 480 ml 350 ml Output Total 580 ml Balance 50 ml 480 ml -230 ml Exam Constitutional: alert Neck: supple Respiratory: diminished breath sounds Cardiovascular: nl pulses Gastrointestinal: non-tender, soft Extremities: edema Results Result Diagram: 02/12/17 03102/12/17 0312 Results 24 hrs Laboratory Tests Test 02/12/17 03:11 02/12/17 03:12 White Blood Count 6.8 Red Blood Count 2.76 L Hemoglobin 9.1 L Hematocrit 29.4 L Mean Corpuscular Volume 106.5 H Mean Corpuscular Hemoglobin 33.0 Mean Corpuscular Hemoglobin Concent 31.0 L Red Cell Distribution Width 15.3 H Platelet Count 140 Mean Platelet Volume 10.3 Neutrophils % 75.5 Lymphocytes % 12.0 L Monocytes % 11.1 H Eosinophils % 0.4 Basophils % 0.6 Nucleated Red Blood Cells % 0.0 Neutrophils # 5.2 Lymphocytes # 0.8 Monocytes # 0.8 Eosinophils # 0.0 Basophils # 0.0 Nucleated Red Blood Cells # 0.0 Sodium Level 138 Potassium Level 4.5 Chloride Level 106 Carbon Dioxide Level 30 Anion Gap 7 L Blood Urea Nitrogen 16 Creatinine 1.34 H Glucose Level 82 Calcium Level 8.3 L Vancomycin Level Trough 20.8 *H Medications Medications Current Medications Aspirin (Halfprin) 81 mg Q7D PO Last administered on 02/08/17 09:04; Admin Dose 81 MG; Start 02/01/17 at 09:00 Atorvastatin Calcium (Lipitor) 20 mg QHS PO Last administered on 02/11/17 21: 18; Admin Dose 20 MG; Start 01/31/17 at 21:00 Escitalopram Oxalate (Lexapro) 10 mg DAILY PO Last administered on 02/12/17 09 :31; Admin Dose 10 MG; Start 02/01/17 at 09:00 Ondansetron HCl (Zofran Inj) 4 mg Q6 PRN IV NAUSEA Last administered on 13:05; Admin Dose 4 MG; Start 01/31/17 at 19:30 Enoxaparin Sodium (Lovenox) 30 mg DAILY SC Last administered on 02/12/17 09:51 ; Admin Dose 30 MG; Start 02/01/17 at 09:00 Morphine Sulfate (Ms Contin (Er)) 15 mg BID PO Last administered on 02/12/17 09:31; Admin Dose 15 MG; Start 01/31/17 at 23:00 Morphine Sulfate (morphine) 4 mg Q4H PRN IV SEVERE PAIN LEVEL 7-10 Last administered on 02/11/17 06:07; Admin Dose 4 MG; Start 01/31/17 at 23:00 Nitroglycerin (Nitroglycerin (Sl Tab) 0.4 Mg) 1 tab Q5M PRN SL ANGINA; Start at 11:30 Pantoprazole (Protonix Tab) 40 mg DAILY@06 PO Last administered on 02/12/17 05 :38; Admin Dose 40 MG; Start 02/02/17 at 06:00 Voriconazole (Vfend) 200 mg BID PO Last administered on 02/12/17 09:32; Admin Dose 200 MG; Start 02/01/17 at 21:00 Senna (Senokot) 1 tab DAILY PRN PO CONSTIPATION Last administered on 02/03/17 20:36; Admin Dose 1 TAB; Start 02/02/17 at 16:00 Lactulose 20 gm 20 gm DAILY PRN PO CONSTIPATION; Start 02/02/17 at 16:00 Sodium Chloride (NS) 1,000 ml @ 75 mls/hr [id number] IV Last administered on 02/08 18:40; Admin Dose 75 MLS/HR; Start 02/04/17 at 08:00; Status Future Hold IV Flush (NS 10 ml) 10 ml PRN PRN IV IV PROTOCOL; Start 02/06/17 at 20:00 Oxymetazoline HCl (Afrin [place]) 2 spray BID NASAL Last administered on 09:32; Admin Dose 2 SPRAY; Start 02/07/17 at 15:00 LUBA EARLY Feb 12, 2017 16:30
[2017-02-12] MEDS: ATORVASTATIN 20 MG TAB PO SCH (20:47)
[2017-02-12] MEDS ORDERED: ALTEPLASE (CATHFLO) 2 MG INJ CATHETER ONE (21:00)
--- NOTE | 2017-02-12 22:00 | CONS ---
Date/Time of Note Date/Time of Note DATE: 02/12/17 TIME: 21:58 Assessment/Plan Assessment/Plan Chief Complaint/Hosp Course metastatic lung CANCER, NSCLC - ON CHEMO WITH RELATIVELY STABLE DIS D/W PULM AND RADIOLOGIST CHEMO ON HOLD DURING HOSPITALIZATION HX PANCYTOPENIA POST CHEMO MONITOR BLOOD COUNT CLOSELY LEUKOCYTOSIS PROB 2 TO POST OBSTRUCTIVE PNA HX LEUKOPENIA- POST CHEMO POST NEUPOGEN IN THE PAST PAIN PAIN CONTROL POST Hypoxemic respiratory failure IN AUG 2016 , reaction to CARBO severe pneumonia/bronchitis due to enterobacter (09/22/2016-) HX DVT TREATED WITH LOVENOX PT SELF- DC 2 TO HEMOPTYSIS OUTPT History of coronary artery disease. Chronic obstructive pulmonary disease HX TOBACCO SMOKING Problems: Consultation Date/Type/Reason Admit Date/Time Jan 31, 2017 at 18:59 Initial Consult Date 01/31/17 Type of Consultation: [facility] Referring Provider: TRAMAINE ELLSWORTH 24 HR Interval Summary Free Text/Dictation ALL NOTED D/W FELLING WORSE + SOB + bilateral upper and lower extremity swelling, productive cough. Patient continues supplemental oxygen and on BiPAP overnight. Exam/Review of Systems Vital Signs Vitals Vital Signs Date Time Temp Pulse Resp B/P Pulse Ox O2 Delivery O2 Flow Rate FiO2 02/12/17 20:20 98.7 93 20 112/56 96 02/12/17 20:09 Nasal Cannula 4.0 02/12/17 07:30 40 Intake and Output 02/11/17 02/11/17 02/12/17 15:00 23:00 07:00 Intake Total 50 ml 480 ml 350 ml Output Total 580 ml Balance 50 ml 480 ml -230 ml Exam GENERAL: The patient is alert, awake, complaining of chest pain, shortness of breath. NECK: JVP approximately 9 cm water. CHEST: Upper airway transmitted diffuse rhonchorous sounds. Decreased breath sounds at the bases bilaterally. HEART: Regular rate and rhythm. Normal S1, increased S2. 1/6 systolic murmur. Nondisplaced PMI. ABDOMEN: Positive bowel sounds. Soft. EXTREMITIES: Trace edema, lower extremities bilaterally. 1+ pulses bilateral posterior tibial. Results Result Diagram: 02/12/17 0311 02/12/17 0312 Results 24 hrs Laboratory Tests Test 02/12/17 03:11 02/12/17 03:12 White Blood Count 6.8 Red Blood Count 2.76 L Hemoglobin 9.1 L Hematocrit 29.4 L Mean Corpuscular Volume 106.5 H Mean Corpuscular Hemoglobin 33.0 Mean Corpuscular Hemoglobin Concent 31.0 L Red Cell Distribution Width 15.3 H Platelet Count 140 Mean Platelet Volume 10.3 Neutrophils % 75.5 Lymphocytes % 12.0 L Monocytes % 11.1 H Eosinophils % 0.4 Basophils % 0.6 Nucleated Red Blood Cells % 0.0 Neutrophils # 5.2 Lymphocytes # 0.8 Monocytes # 0.8 Eosinophils # 0.0 Basophils # 0.0 Nucleated Red Blood Cells # 0.0 Sodium Level 138 Potassium Level 4.5 Chloride Level 106 Carbon Dioxide Level 30 Anion Gap 7 L Blood Urea Nitrogen 16 Creatinine 1.34 H Glucose Level 82 Calcium Level 8.3 L Vancomycin Level Trough 20.8 *H Medications Medications Current Medications Aspirin (Halfprin) 81 mg Q7D PO Last administered on 02/08/17 09:04; Admin Dose 81 MG; Start 02/01/17 at 09:00 Atorvastatin Calcium (Lipitor) 20 mg QHS PO Last administered on 02/12/17 20: 47; Admin Dose 20 MG; Start 01/31/17 at 21:00 Escitalopram Oxalate (Lexapro) 10 mg DAILY PO Last administered on 02/12/17 09 :31; Admin Dose 10 MG; Start 02/01/17 at 09:00 Ondansetron HCl (Zofran Inj) 4 mg Q6 PRN IV NAUSEA Last administered on 13:05; Admin Dose 4 MG; Start 01/31/17 at 19:30 Enoxaparin Sodium (Lovenox) 30 mg DAILY SC Last administered on 02/12/17 09:51 ; Admin Dose 30 MG; Start 02/01/17 at 09:00 Morphine Sulfate (Ms Contin (Er)) 15 mg BID PO Last administered on 02/12/17 21:18; Admin Dose 15 MG; Start 01/31/17 at 23:00 Morphine Sulfate (morphine) 4 mg Q4H PRN IV SEVERE PAIN LEVEL 7-10 Last administered on 02/11/17 06:07; Admin Dose 4 MG; Start 01/31/17 at 23:00 Nitroglycerin (Nitroglycerin (Sl Tab) 0.4 Mg) 1 tab Q5M PRN SL ANGINA; Start at 11:30 Pantoprazole (Protonix Tab) 40 mg DAILY@06 PO Last administered on 02/12/17 05 :38; Admin Dose 40 MG; Start 02/02/17 at 06:00 Voriconazole (Vfend) 200 mg BID PO Last administered on 02/12/17 20:47; Admin Dose 200 MG; Start 02/01/17 at 21:00 Senna (Senokot) 1 tab DAILY PRN PO CONSTIPATION Last administered on 02/03/17 20:36; Admin Dose 1 TAB; Start 02/02/17 at 16:00 Lactulose 20 gm 20 gm DAILY PRN PO CONSTIPATION; Start 02/02/17 at 16:00 Sodium Chloride (NS) 1,000 ml @ 75 mls/hr [id number] IV Last administered on 02/08 18:40; Admin Dose 75 MLS/HR; Start 02/04/17 at 08:00; Status Future Hold IV Flush (NS 10 ml) 10 ml PRN PRN IV IV PROTOCOL; Start 02/06/17 at 20:00 Oxymetazoline HCl (Afrin [place]) 2 spray BID NASAL Last administered on 20:48; Admin Dose 2 SPRAY; Start 02/07/17 at 15:00 DAHIANA BABCOCK MD Feb 12, 2017 22:00
[2017-02-13] VITALS (15 sets, daily range): BP systolic 102–131; BP diastolic 62–68; PULSE 80–100; RESP 17–20
[2017-02-13] MEDS: LEVALBUTEROL (NEB) 0.63 MG/3 ML AMP HHN SCH ×4 (02:18→20:34)
[2017-02-13] MEDS: PANTOPRAZOLE (EC) 40 MG TAB PO SCH (05:28)
[2017-02-13] MEDS: FUROSEMIDE 20 MG INJ IV SCH ×2 (05:30→17:30)
[2017-02-13] MEDS: LEVOTHYROXINE 75 MCG TAB PO SCH ×2 (05:35→08:58)
[2017-02-13 08:13] LABS: BASOPHIL # 0.1 10^3/ul (0.0-0.1); BASOPHILS % 1.1 % (0.0-2.0); EOSINOPHILS % 0.9 % (0.0-7.0); HEMOGLOBIN 8.3 g/dl (14.0-18.0); LYMPHOCYTES # 0.7 10^3/ul (0.8-2.9); LYMPHOCYTES % 14.1 % (15.0-51.0); MEAN CORPUSCULAR HEMOGLOBIN 33.1 pg (29.0-33.0); MEAN CORPUSCULAR HGB CONC 30.7 g/dl (32.0-37.0); MEAN CORPUSCULAR VOLUME 107.6 fl (82.0-101.0); MEAN PLATELET VOLUME 10.4 fl (7.4-10.4); MONOCYTE # 0.7 10^3/ul (0.3-0.9); MONOCYTES % 14.3 % (0.0-11.0); NEUTROPHIL # 3.2 10^3/ul (1.6-7.5); NEUTROPHILS % 68.9 % (39.0-77.0); PLATELET COUNT 132 10^3/UL (140-415); RED BLOOD COUNT 2.51 10^6/ul (4.70-6.10); RED CELL DISTRIBUTION WIDTH 15.3 % (11.5-14.5); WHITE BLOOD COUNT 4.6 10^3/ul (4.8-10.8)
[2017-02-13 08:33] LABS: CALCIUM 8.3 mg/dl (8.4-10.2); CREATININE 1.39 mg/dl (0.61-1.24)
--- NOTE | 2017-02-13 08:37 | CONS ---
Date/Time of Note Date/Time of Note DATE: 02/13/17 TIME: 08:33 Assessment/Plan Assessment/Plan Additional Assessment/Plan 1. Chest pain - doubt ischemia - NO intervention planned - STABLE. BETTER RESP status now. 2. Abnormal electrocardiogram with nonspecific ST and T-wave abnormalities, assess for acute coronary syndrome. No active ischemai, Sx likely related to advanced lung disease. 3. Bradycardia, transient while on beta matthew- no indication for pacer. HR well Rx now. 4. Hypotension-today - stable. BETTER OVERALL. 5. Shortness of breath. Rule out congestive heart failure. 6. Lung cancer with ongoing chemotherapy - Rx as needed. CHEMO rx. Chest pain likely pleuritic. 7. Leukocytosis- on anti-Bx as needed 8. Anemia. 9. Thrombocytopenia - no bleeding now. Consultation Date/Type/Reason Admit Date/Time Jan 31, 2017 at 18:59 Initial Consult Date 02/01/17 Type of Consultation: [facility] Referring Provider: TRAMAINE ELLSWORTH 24 HR Interval Summary Free Text/Dictation NO acute events - BP in good range - reasonable fluid status. ROS: No fever, no chills, no nausea, no vomiting, no diarrhea/constipation No recent weight changes No chest pain, no PND, no orthopnea, + SOB No dizziness, blurred vision No thirst, no heat or cold intolerance Exam/Review of Systems Vital Signs Vitals Vital Signs Date Time Temp Pulse Resp B/P Pulse Ox O2 Delivery O2 Flow Rate FiO2 02/13/17 08:02 88 17 97 02/13/17 07:55 97.6 106/62 02/13/17 07:48 40 02/12/17 20:09 Nasal Cannula 4.0 Intake and Output 02/12/17 02/12/17 02/13/17 15:00 23:00 07:00 Intake Total 600 ml Balance 600 ml Exam General: WN/WD/NAD, AOx 3 HEENT: Unicetric/atraumatic/EOMI (follows commands) NECK: JVD elevated, no thyromegaly Lymph: no lymphadenopathy HEART: regular with no S3, II/ systolic murmur at apex LUNGS: Coarse sounds ABD: soft, NT, ND, +BS : Intact Neuro: non focal SKIN: chronic changes EXT: trace edema Results Result Diagram: 02/13/17 0630 02/12/17 0312 Results 24 hrs Laboratory Tests Test 02/13/17 06:30 02/13/17 07:19 White Blood Count 4.6 #L Red Blood Count 2.51 L Hemoglobin 8.3 L Hematocrit 27.0 L Mean Corpuscular Volume 107.6 H Mean Corpuscular Hemoglobin 33.1 H Mean Corpuscular Hemoglobin Concent 30.7 L Red Cell Distribution Width 15.3 H Platelet Count 132 L Mean Platelet Volume 10.4 Neutrophils % 68.9 Lymphocytes % 14.1 L Monocytes % 14.3 H Eosinophils % 0.9 Basophils % 1.1 Nucleated Red Blood Cells % 0.0 Neutrophils # 3.2 Lymphocytes # 0.7 L Monocytes # 0.7 Eosinophils # 0.0 Basophils # 0.1 Nucleated Red Blood Cells # 0.0 Lab Scanned Report REFERENCE LAB Medications Medications Current Medications Aspirin (Halfprin) 81 mg Q7D PO Last administered on 02/08/17 09:04; Admin Dose 81 MG; Start 02/01/17 at 09:00 Atorvastatin Calcium (Lipitor) 20 mg QHS PO Last administered on 02/12/17 20: 47; Admin Dose 20 MG; Start 01/31/17 at 21:00 Escitalopram Oxalate (Lexapro) 10 mg DAILY PO Last administered on 02/12/17 09 :31; Admin Dose 10 MG; Start 02/01/17 at 09:00 Ondansetron HCl (Zofran Inj) 4 mg Q6 PRN IV NAUSEA Last administered on 13:05; Admin Dose 4 MG; Start 01/31/17 at 19:30 Enoxaparin Sodium (Lovenox) 30 mg DAILY SC Last administered on 02/12/17 09:51 ; Admin Dose 30 MG; Start 02/01/17 at 09:00 Morphine Sulfate (Ms Contin (Er)) 15 mg BID PO Last administered on 02/12/17 21:18; Admin Dose 15 MG; Start 01/31/17 at 23:00 Morphine Sulfate (morphine) 4 mg Q4H PRN IV SEVERE PAIN LEVEL 7-10 Last administered on 02/11/17 06:07; Admin Dose 4 MG; Start 01/31/17 at 23:00 Nitroglycerin (Nitroglycerin (Sl Tab) 0.4 Mg) 1 tab Q5M PRN SL ANGINA; Start at 11:30 Pantoprazole (Protonix Tab) 40 mg DAILY@06 PO Last administered on 02/13/17 05 :28; Admin Dose 40 MG; Start 02/02/17 at 06:00 Voriconazole (Vfend) 200 mg BID PO Last administered on 02/12/17 20:47; Admin Dose 200 MG; Start 02/01/17 at 21:00 Senna (Senokot) 1 tab DAILY PRN PO CONSTIPATION Last administered on 02/03/17 20:36; Admin Dose 1 TAB; Start 02/02/17 at 16:00 Lactulose 20 gm 20 gm DAILY PRN PO CONSTIPATION; Start 02/02/17 at 16:00 Sodium Chloride (NS) 1,000 ml @ 75 mls/hr [id number] IV Last administered on 02/08 18:40; Admin Dose 75 MLS/HR; Start 02/04/17 at 08:00; Status Future Hold IV Flush (NS 10 ml) 10 ml PRN PRN IV IV PROTOCOL; Start 02/06/17 at 20:00 Oxymetazoline HCl (Afrin [place]) 2 spray BID NASAL Last administered on 20:48; Admin Dose 2 SPRAY; Start 02/07/17 at 15:00 FRANCIS ESPINAL MD Feb 13, 2017 08:37
[2017-02-13] MEDS: ESCITALOPRAM 10 MG TAB PO SCH (08:58)
[2017-02-13] MEDS: VORICONAZOLE 200 MG TAB PO SCH ×2 (08:59→21:26)
[2017-02-13] MEDS: OXYMETAZOLINE 0.05% 15 ML NAS SPRAY NASAL SCH ×2 (08:59→21:26)
[2017-02-13] MEDS: morphine (ER) 15 MG TAB PO SCH ×2 (08:59→21:28)
[2017-02-13] MEDS: DRONABINOL 2.5 MG CAP PO SCH ×3 (08:59→17:30)
[2017-02-13] MEDS: ENOXAPARIN 30 MG/0.3 ML SYG SC SCH (09:03)
--- NOTE | 2017-02-13 11:49 | CONS ---
Date/Time of Note Date/Time of Note DATE: 02/13/17 TIME: 11:46 Assessment/Plan Assessment/Plan Additional Assessment/Plan Assessment and recommendations; 1. Patient admitted with extensive pneumonia involving right lung which likely is post obstructive in etiology owing to extensive metastatic non-small cell lung cancer. 2. COPD. 3. Underlying obesity. Continue current treatment. Prognosis is very poor. Consultation Date/Type/Reason Admit Date/Time Jan 31, 2017 at 18:59 Initial Consult Date 02/01/17 Type of Consultation: Pulmonary/critical care Referring Provider: TRAMAINE ELLSWORTH 24 HR Interval Summary Free Text/Dictation Patient's condition has slightly improved. Patient is off BiPAP and having breakfast at bedside. Still complains of occasional hemoptysis and shortness of breath. General exam; elderly male, appears quite overweight. Currently in no distress. Awake and alert. Exam/Review of Systems Vital Signs Vitals Vital Signs Date Time Temp Pulse Resp B/P Pulse Ox O2 Delivery O2 Flow Rate FiO2 02/13/17 08:37 100 02/13/17 08:02 17 97 02/13/17 07:55 97.6 106/62 02/13/17 07:48 40 02/12/17 20:09 Nasal Cannula 4.0 Intake and Output 02/12/17 02/12/17 02/13/17 15:00 23:00 07:00 Intake Total 600 ml Balance 600 ml Exam HEENT exam; supple neck, no JVD. No lymphadenopathy. Midline trachea. No thyromegaly. Patient has fair dentition. Chest exam; diminished breath sounds right lung. Left lung is fairly clear. S1 -S2 audible, no murmurs. Regular rhythm. Abdomen exam; soft, protuberant. No organomegaly. Bowel sounds audible. Extremity exam; no peripheral edema. No clubbing. [employer] exam; no focal deficit. Results Result Diagram: 02/13/17 0630 02/13/17 0630 Results 24 hrs Laboratory Tests Test 02/13/17 06:30 02/13/17 07:19 White Blood Count 4.6 #L Red Blood Count 2.51 L Hemoglobin 8.3 L Hematocrit 27.0 L Mean Corpuscular Volume 107.6 H Mean Corpuscular Hemoglobin 33.1 H Mean Corpuscular Hemoglobin Concent 30.7 L Red Cell Distribution Width 15.3 H Platelet Count 132 L Mean Platelet Volume 10.4 Neutrophils % 68.9 Lymphocytes % 14.1 L Monocytes % 14.3 H Eosinophils % 0.9 Basophils % 1.1 Nucleated Red Blood Cells % 0.0 Neutrophils # 3.2 Lymphocytes # 0.7 L Monocytes # 0.7 Eosinophils # 0.0 Basophils # 0.1 Nucleated Red Blood Cells # 0.0 Sodium Level 136 Potassium Level 4.0 Chloride Level 103 Carbon Dioxide Level 32 H Anion Gap 5 L Blood Urea Nitrogen 18 Creatinine 1.39 H Glucose Level 72 Calcium Level 8.3 L Lab Scanned Report REFERENCE LAB Medications Medications Current Medications Aspirin (Halfprin) 81 mg Q7D PO Last administered on 02/08/17 09:04; Admin Dose 81 MG; Start 02/01/17 at 09:00 Atorvastatin Calcium (Lipitor) 20 mg QHS PO Last administered on 02/12/17 20: 47; Admin Dose 20 MG; Start 01/31/17 at 21:00 Escitalopram Oxalate (Lexapro) 10 mg DAILY PO Last administered on 02/13/17 08 :58; Admin Dose 10 MG; Start 02/01/17 at 09:00 Ondansetron HCl (Zofran Inj) 4 mg Q6 PRN IV NAUSEA Last administered on 13:05; Admin Dose 4 MG; Start 01/31/17 at 19:30 Enoxaparin Sodium (Lovenox) 30 mg DAILY SC Last administered on 02/13/17 09:03 ; Admin Dose 30 MG; Start 02/01/17 at 09:00 Morphine Sulfate (Ms Contin (Er)) 15 mg BID PO Last administered on 02/13/17 08:59; Admin Dose 15 MG; Start 01/31/17 at 23:00 Morphine Sulfate (morphine) 4 mg Q4H PRN IV SEVERE PAIN LEVEL 7-10 Last administered on 02/11/17 06:07; Admin Dose 4 MG; Start 01/31/17 at 23:00 Nitroglycerin (Nitroglycerin (Sl Tab) 0.4 Mg) 1 tab Q5M PRN SL ANGINA; Start at 11:30 Pantoprazole (Protonix Tab) 40 mg DAILY@06 PO Last administered on 02/13/17 05 :28; Admin Dose 40 MG; Start 02/02/17 at 06:00 Voriconazole (Vfend) 200 mg BID PO Last administered on 02/13/17 08:59; Admin Dose 200 MG; Start 02/01/17 at 21:00 Senna (Senokot) 1 tab DAILY PRN PO CONSTIPATION Last administered on 02/03/17 20:36; Admin Dose 1 TAB; Start 02/02/17 at 16:00 Lactulose 20 gm 20 gm DAILY PRN PO CONSTIPATION; Start 02/02/17 at 16:00 Sodium Chloride (NS) 1,000 ml @ 75 mls/hr [id number] IV Last administered on 02/08 18:40; Admin Dose 75 MLS/HR; Start 02/04/17 at 08:00; Status Future Hold IV Flush (NS 10 ml) 10 ml PRN PRN IV IV PROTOCOL; Start 02/06/17 at 20:00 Oxymetazoline HCl (Afrin [place]) 2 spray BID NASAL Last administered on 08:59; Admin Dose 2 SPRAY; Start 02/07/17 at 15:00 ISMA CUTLER Feb 13, 2017 11:49
--- NOTE | 2017-02-13 17:02 | CONS ---
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 Aspergillus antibody was >1:64 but aspergillus antigen in serum by EIA was negative during his last admission. - h/o DVT of RUE - b/l knee pain due to DJD - h/o post-obstructive pneumonia - h/o HTN, CAD, hyperlipidemia - h/o paroxysmal A fib - h/o DVT in LUE - h/o hypothyroidism with elevated TSH level - HIV negative in 2013 - LUE edema recommendations: - monitor off systemic abx; s/p vanco, cefepime and levofloxacin - continue voriconazole for chronic suppression of aspergillus given his immunocompromised state - check LUE venous doppler to r/o DVT Management d/w patient, his , MARIA ELENA Quinn, and Dr. Fraga Problems: Consultation Date/Type/Reason Admit Date/Time Jan 31, 2017 at 18:59 Initial Consult Date 02/01/17 Type of Consultation: Infectious Disease Referring Provider: TRAMAINE ELLSWORTH 24 HR Interval Summary Free Text/Dictation C/o BUE (L>R) and BLE swelling. SOB unchanged. Appetite has improved. C/o mild constipation with last BM yesterday. Clinically unchanged. No acute issues. Pt is going to be transferred to Med Surg per d/w nursing staff. Exam/Review of Systems Vital Signs Vitals Vital Signs Date Time Temp Pulse Resp B/P Pulse Ox O2 Delivery O2 Flow Rate FiO2 02/13/17 16:45 89 02/13/17 16:10 97.8 18 102/62 100 02/13/17 14:27 Nasal Cannula 4.0 02/13/17 07:48 40 Intake and Output 02/12/17 02/12/17 02/13/17 15:00 23:00 07:00 Intake Total 600 ml Balance 600 ml Exam Constitutional: alert, obese, oriented, well developed Psych: nl mood/affect Head: atraumatic, normocephalic, other (alopecia) Eyes: nl conjunctiva, nl lids, nl sclera ENMT: nl external ears & nose Neck: supple Respiratory: diminished breath sounds (R>L), No wheezing Cardiovascular: nl pulses, regular rate and rhythm Gastrointestinal: non-tender, soft Musculoskeletal: nl extremities to inspection Extremities: edema (LUE>RUE; mild on BLE), other (LUE PICC with dressing that is stained with blood) Neurological: nl mental status, other (generalized weakness) Skin: nl turgor, other (missing nail of L 2nd finger tip with erythema but no purulence) Results Result Diagram: 02/13/17 0630 02/13/17 0630 Results 24 hrs Laboratory Tests Test 02/13/17 06:30 02/13/17 07:19 White Blood Count 4.6 #L Red Blood Count 2.51 L Hemoglobin 8.3 L Hematocrit 27.0 L Mean Corpuscular Volume 107.6 H Mean Corpuscular Hemoglobin 33.1 H Mean Corpuscular Hemoglobin Concent 30.7 L Red Cell Distribution Width 15.3 H Platelet Count 132 L Mean Platelet Volume 10.4 Neutrophils % 68.9 Lymphocytes % 14.1 L Monocytes % 14.3 H Eosinophils % 0.9 Basophils % 1.1 Nucleated Red Blood Cells % 0.0 Neutrophils # 3.2 Lymphocytes # 0.7 L Monocytes # 0.7 Eosinophils # 0.0 Basophils # 0.1 Nucleated Red Blood Cells # 0.0 Sodium Level 136 Potassium Level 4.0 Chloride Level 103 Carbon Dioxide Level 32 H Anion Gap 5 L Blood Urea Nitrogen 18 Creatinine 1.39 H Glucose Level 72 Calcium Level 8.3 L Lab Scanned Report REFERENCE LAB Medications Medications Current Medications Aspirin (Halfprin) 81 mg Q7D PO Last administered on 02/08/17 09:04; Admin Dose 81 MG; Start 02/01/17 at 09:00 Atorvastatin Calcium (Lipitor) 20 mg QHS PO Last administered on 02/12/17 20: 47; Admin Dose 20 MG; Start 01/31/17 at 21:00 Escitalopram Oxalate (Lexapro) 10 mg DAILY PO Last administered on 02/13/17 08 :58; Admin Dose 10 MG; Start 02/01/17 at 09:00 Ondansetron HCl (Zofran Inj) 4 mg Q6 PRN IV NAUSEA Last administered on 13:05; Admin Dose 4 MG; Start 01/31/17 at 19:30 Enoxaparin Sodium (Lovenox) 30 mg DAILY SC Last administered on 02/13/17 09:03 ; Admin Dose 30 MG; Start 02/01/17 at 09:00 Morphine Sulfate (Ms Contin (Er)) 15 mg BID PO Last administered on 02/13/17 08:59; Admin Dose 15 MG; Start 01/31/17 at 23:00 Morphine Sulfate (morphine) 4 mg Q4H PRN IV SEVERE PAIN LEVEL 7-10 Last administered on 02/11/17 06:07; Admin Dose 4 MG; Start 01/31/17 at 23:00 Nitroglycerin (Nitroglycerin (Sl Tab) 0.4 Mg) 1 tab Q5M PRN SL ANGINA; Start at 11:30 Pantoprazole (Protonix Tab) 40 mg DAILY@06 PO Last administered on 02/13/17 05 :28; Admin Dose 40 MG; Start 02/02/17 at 06:00 Voriconazole (Vfend) 200 mg BID PO Last administered on 02/13/17 08:59; Admin Dose 200 MG; Start 02/01/17 at 21:00 Senna (Senokot) 1 tab DAILY PRN PO CONSTIPATION Last administered on 02/03/17 20:36; Admin Dose 1 TAB; Start 02/02/17 at 16:00 Lactulose 20 gm 20 gm DAILY PRN PO CONSTIPATION; Start 02/02/17 at 16:00 Sodium Chloride (NS) 1,000 ml @ 75 mls/hr [id number] IV Last administered on 02/08 18:40; Admin Dose 75 MLS/HR; Start 02/04/17 at 08:00; Status Future Hold IV Flush (NS 10 ml) 10 ml PRN PRN IV IV PROTOCOL; Start 02/06/17 at 20:00 Oxymetazoline HCl (Afrin [place]) 2 spray BID NASAL Last administered on t 08:59; Admin Dose 2 SPRAY; Start 02/07/17 at 15:00 STEPHEN LOVE NP Feb 13, 2017 17:02
--- NOTE | 2017-02-13 19:19 | PN ---
Date/Time of Note Date/Time of Note DATE: 02/13/17 TIME: 19:17 Assessment/Plan VTE Prophylaxis VTE Prophylaxis Intervention: SCD's Lines/Catheters IV [facility]ter [facility] (from [facility]): PICC Line Central line still needed: Yes Urinary Cath still in place: No Assessment/Plan Chief Complaint/Hosp Course Patient's complains of bilateral upper and lower extremity swelling, productive cough. Will obtain albumin, need to elevate extremities. patient continues supplemental oxygen and on BiPAP overnight. Assessment/Plan -Post-obstructive pneumonia Dr. Philly perry is following infection disease consultation. Status post treatment with antibiotics. - Advanced non-small cell lung CA, Dr. Scanlon is following in oncology consultation. - Acute respiratory failure secondary to above. is following in pulmonology consultation. - Nonocclusive deep venous thrombosis in the right subclavian vein. Continue Lovenox. - Acute on chronic diastolic congestive heart failure, continue gentle diuresis , continue to monitor electrolytes. - h/o fungal pneumonia, on maintenance voriconazole - CAD, continue aspirin. - Hyperlipidemia, continue statin - Hypothyroidism, continue levothyroxine. Further recommendations based on clinical course. Plan of care discussed with Dr. Lincoln. Problems: Exam/Review of Systems Vital Signs Vitals Vital Signs Date Time Temp Pulse Resp B/P Pulse Ox O2 Delivery O2 Flow Rate FiO2 02/13/17 17:16 4.0 02/13/17 16:45 89 02/13/17 16:10 97.8 18 102/62 100 02/13/17 14:27 Nasal Cannula 02/13/17 07:48 40 Intake and Output 02/12/17 02/12/17 02/13/17 15:00 23:00 07:00 Intake Total 600 ml Balance 600 ml Exam Constitutional: alert Neck: supple Respiratory: diminished breath sounds Cardiovascular: nl pulses Gastrointestinal: non-tender, soft Extremities: edema Results Result Diagram: 02/13/17 0630 02/13/17 0630 Results 24 hrs Laboratory Tests Test 02/13/17 06:30 02/13/17 07:19 02/13/17 18:20 White Blood Count 4.6 #L Red Blood Count 2.51 L Hemoglobin 8.3 L Hematocrit 27.0 L Mean Corpuscular Volume 107.6 H Mean Corpuscular Hemoglobin 33.1 H Mean Corpuscular Hemoglobin Concent 30.7 L Red Cell Distribution Width 15.3 H Platelet Count 132 L Mean Platelet Volume 10.4 Neutrophils % 68.9 Lymphocytes % 14.1 L Monocytes % 14.3 H Eosinophils % 0.9 Basophils % 1.1 Nucleated Red Blood Cells % 0.0 Neutrophils # 3.2 Lymphocytes # 0.7 L Monocytes # 0.7 Eosinophils # 0.0 Basophils # 0.1 Nucleated Red Blood Cells # 0.0 Sodium Level 136 Potassium Level 4.0 Chloride Level 103 Carbon Dioxide Level 32 H Anion Gap 5 L Blood Urea Nitrogen 18 Creatinine 1.39 H Glucose Level 72 Calcium Level 8.3 L Lab Scanned Report REFERENCE LAB Albumin 2.8 L Medications Medications Current Medications Aspirin (Halfprin) 81 mg Q7D PO Last administered on 02/08/17 09:04; Admin Dose 81 MG; Start 02/01/17 at 09:00 Atorvastatin Calcium (Lipitor) 20 mg QHS PO Last administered on 02/12/17 20: 47; Admin Dose 20 MG; Start 01/31/17 at 21:00 Escitalopram Oxalate (Lexapro) 10 mg DAILY PO Last administered on 02/13/17 08 :58; Admin Dose 10 MG; Start 02/01/17 at 09:00 Ondansetron HCl (Zofran Inj) 4 mg Q6 PRN IV NAUSEA Last administered on 13:05; Admin Dose 4 MG; Start 01/31/17 at 19:30 Enoxaparin Sodium (Lovenox) 30 mg DAILY SC Last administered on 02/13/17 09:03 ; Admin Dose 30 MG; Start 02/01/17 at 09:00 Morphine Sulfate (Ms Contin (Er)) 15 mg BID PO Last administered on 02/13/17 08:59; Admin Dose 15 MG; Start 01/31/17 at 23:00 Morphine Sulfate (morphine) 4 mg Q4H PRN IV SEVERE PAIN LEVEL 7-10 Last administered on 02/11/17 06:07; Admin Dose 4 MG; Start 01/31/17 at 23:00 Nitroglycerin (Nitroglycerin (Sl Tab) 0.4 Mg) 1 tab Q5M PRN SL ANGINA; Start at 11:30 Pantoprazole (Protonix Tab) 40 mg DAILY@06 PO Last administered on 02/13/17 05 :28; Admin Dose 40 MG; Start 02/02/17 at 06:00 Voriconazole (Vfend) 200 mg BID PO Last administered on 02/13/17 08:59; Admin Dose 200 MG; Start 02/01/17 at 21:00 Senna (Senokot) 1 tab DAILY PRN PO CONSTIPATION Last administered on 02/03/17 20:36; Admin Dose 1 TAB; Start 02/02/17 at 16:00 Lactulose 20 gm 20 gm DAILY PRN PO CONSTIPATION; Start 02/02/17 at 16:00 Sodium Chloride (NS) 1,000 ml @ 75 mls/hr [id number] IV Last administered on 02/08 18:40; Admin Dose 75 MLS/HR; Start 02/04/17 at 08:00; Status Future Hold IV Flush (NS 10 ml) 10 ml PRN PRN IV IV PROTOCOL; Start 02/06/17 at 20:00 Oxymetazoline HCl (Afrin [place]) 2 spray BID NASAL Last administered on 08:59; Admin Dose 2 SPRAY; Start 02/07/17 at 15:00 LUBA EARLY Feb 13, 2017 19:19
[2017-02-13] MEDS: ATORVASTATIN 20 MG TAB PO SCH (21:26)
--- NOTE | 2017-02-13 22:41 | CONS ---
Date/Time of Note Date/Time of Note DATE: 02/13/17 TIME: 22:38 Assessment/Plan Assessment/Plan Chief Complaint/Hosp Course metastatic lung CANCER, NSCLC - ON CHEMO WITH RELATIVELY STABLE DIS D/W PULM AND RADIOLOGIST CHEMO ON HOLD DURING HOSPITALIZATION HX PANCYTOPENIA POST CHEMO MONITOR BLOOD COUNT CLOSELY LEUKOCYTOSIS PROB 2 TO POST OBSTRUCTIVE PNA HX LEUKOPENIA- POST CHEMO POST NEUPOGEN IN THE PAST PAIN PAIN CONTROL CHF, FLUID OVERLOAD GENTLE DIURESIS, CONSIDERING BORDERLINE BP POST Hypoxemic respiratory failure IN AUG 2016 , reaction to CARBO severe pneumonia/bronchitis due to enterobacter (09/22/2016-) HX DVT TREATED WITH LOVENOX PT SELF- DC 2 TO HEMOPTYSIS OUTPT History of coronary artery disease. Chronic obstructive pulmonary disease HX TOBACCO SMOKING Problems: Consultation Date/Type/Reason Admit Date/Time Jan 31, 2017 at 18:59 Initial Consult Date 01/31/17 Type of Consultation: [facility] Referring Provider: TRAMAINE ELLSWORTH 24 HR Interval Summary Free Text/Dictation all noted weak + sob + extremities swelling Exam/Review of Systems Vital Signs Vitals Vital Signs Date Time Temp Pulse Resp B/P Pulse Ox O2 Delivery O2 Flow Rate FiO2 02/13/17 20:50 98.2 98 18 120/66 94 02/13/17 20:36 Nasal Cannula 4.0 02/13/17 07:48 40 Intake and Output 02/12/17 02/12/17 02/13/17 15:00 23:00 07:00 Intake Total 600 ml Balance 600 ml Exam GENERAL: The patient is alert, awake, complaining of chest pain, shortness of breath. NECK: JVP approximately 9 cm water. CHEST: Upper airway transmitted diffuse rhonchorous sounds. Decreased breath sounds at the bases bilaterally. HEART: Regular rate and rhythm. Normal S1, increased S2. 1/6 systolic murmur. Nondisplaced PMI. ABDOMEN: Positive bowel sounds. Soft. EXTREMITIES: 2 + edema, up and lower extremities bilaterally. 1+ pulses bilateral posterior tibial. Results Result Diagram: 02/13/17 0630 02/13/17 0630 Results 24 hrs Laboratory Tests Test 02/13/17 06:30 02/13/17 07:19 02/13/17 18:20 White Blood Count 4.6 #L Red Blood Count 2.51 L Hemoglobin 8.3 L Hematocrit 27.0 L Mean Corpuscular Volume 107.6 H Mean Corpuscular Hemoglobin 33.1 H Mean Corpuscular Hemoglobin Concent 30.7 L Red Cell Distribution Width 15.3 H Platelet Count 132 L Mean Platelet Volume 10.4 Neutrophils % 68.9 Lymphocytes % 14.1 L Monocytes % 14.3 H Eosinophils % 0.9 Basophils % 1.1 Nucleated Red Blood Cells % 0.0 Neutrophils # 3.2 Lymphocytes # 0.7 L Monocytes # 0.7 Eosinophils # 0.0 Basophils # 0.1 Nucleated Red Blood Cells # 0.0 Sodium Level 136 Potassium Level 4.0 Chloride Level 103 Carbon Dioxide Level 32 H Anion Gap 5 L Blood Urea Nitrogen 18 Creatinine 1.39 H Glucose Level 72 Calcium Level 8.3 L Lab Scanned Report REFERENCE LAB Albumin 2.8 L Medications Medications Current Medications Aspirin (Halfprin) 81 mg Q7D PO Last administered on 02/08/17 09:04; Admin Dose 81 MG; Start 02/01/17 at 09:00 Atorvastatin Calcium (Lipitor) 20 mg QHS PO Last administered on 02/13/17 21: 26; Admin Dose 20 MG; Start 01/31/17 at 21:00 Escitalopram Oxalate (Lexapro) 10 mg DAILY PO Last administered on 02/13/17 08 :58; Admin Dose 10 MG; Start 02/01/17 at 09:00 Ondansetron HCl (Zofran Inj) 4 mg Q6 PRN IV NAUSEA Last administered on 13:05; Admin Dose 4 MG; Start 01/31/17 at 19:30 Morphine Sulfate (Ms Contin (Er)) 15 mg BID PO Last administered on 02/13/17 21:28; Admin Dose 15 MG; Start 01/31/17 at 23:00 Morphine Sulfate (morphine) 4 mg Q4H PRN IV SEVERE PAIN LEVEL 7-10 Last administered on 02/11/17 06:07; Admin Dose 4 MG; Start 01/31/17 at 23:00 Nitroglycerin (Nitroglycerin (Sl Tab) 0.4 Mg) 1 tab Q5M PRN SL ANGINA; Start at 11:30 Pantoprazole (Protonix Tab) 40 mg DAILY@06 PO Last administered on 02/13/17 05 :28; Admin Dose 40 MG; Start 02/02/17 at 06:00 Voriconazole (Vfend) 200 mg BID PO Last administered on 02/13/17 21:26; Admin Dose 200 MG; Start 02/01/17 at 21:00 Senna (Senokot) 1 tab DAILY PRN PO CONSTIPATION Last administered on 02/03/17 20:36; Admin Dose 1 TAB; Start 02/02/17 at 16:00 Lactulose 20 gm 20 gm DAILY PRN PO CONSTIPATION; Start 02/02/17 at 16:00 Sodium Chloride (NS) 1,000 ml @ 75 mls/hr [id number] IV Last administered on 02/08 18:40; Admin Dose 75 MLS/HR; Start 02/04/17 at 08:00; Status Future Hold IV Flush (NS 10 ml) 10 ml PRN PRN IV IV PROTOCOL; Start 02/06/17 at 20:00 Oxymetazoline HCl (Afrin [place]) 2 spray BID NASAL Last administered on 21:26; Admin Dose 2 SPRAY; Start 02/07/17 at 15:00 Apixaban (Eliquis) 10 mg BID PO ; Start 02/14/17 at 09:00; Stop 02/20/17 at 21: 00 Apixaban (Eliquis) 5 mg BID PO ; Start 02/21/17 at 09:00 DAHIANA BABCOCK MD Feb 13, 2017 22:41
[2017-02-13] MEDS ORDERED: FUROSEMIDE (10 MG/ML) IV SYG IV SCH (23:00)
[2017-02-14 01:48] VITALS: PULSE 87
[2017-02-14 03:40] VITALS: PULSE 83
[2017-02-14 05:38] LABS: BASOPHILS % 0.7 % (0.0-2.0); EOSINOPHILS % 0.9 % (0.0-7.0); HEMATOCRIT 26.7 % (42.0-52.0); HEMOGLOBIN 8.1 g/dl (14.0-18.0); LYMPHOCYTES # 0.7 10^3/ul (0.8-2.9); LYMPHOCYTES % 14.4 % (15.0-51.0); MEAN CORPUSCULAR HEMOGLOBIN 32.1 pg (29.0-33.0); MEAN CORPUSCULAR HGB CONC 30.3 g/dl (32.0-37.0); MEAN PLATELET VOLUME 10.5 fl (7.4-10.4); MONOCYTE # 0.6 10^3/ul (0.3-0.9); MONOCYTES % 12.4 % (0.0-11.0); NEUTROPHIL # 3.2 10^3/ul (1.6-7.5); NEUTROPHILS % 70.9 % (39.0-77.0); PLATELET COUNT 117 10^3/UL (140-415); RED BLOOD COUNT 2.52 10^6/ul (4.70-6.10); RED CELL DISTRIBUTION WIDTH 15.1 % (11.5-14.5); WHITE BLOOD COUNT 4.5 10^3/ul (4.8-10.8)
[2017-02-14 06:11] LABS: ALBUMIN 2.2 g/dl (3.3-4.9); TOTAL PROTEIN 4.4 g/dl (6.1-8.1)
[2017-02-14 06:24] LABS: CREATININE 1.4 mg/dl (0.61-1.24); POTASSIUM 3.8 mmol/L (3.5-5.1)
[2017-02-14] MEDS: PANTOPRAZOLE (EC) 40 MG TAB PO SCH (06:31)
[2017-02-14] MEDS: LEVOTHYROXINE 75 MCG TAB PO SCH (06:32)
[2017-02-14] MEDS: FUROSEMIDE 20 MG INJ IV SCH (06:37)
[2017-02-14] MEDS: morphine 4 MG/ML VIAL IV PRN ×2 (06:45→20:15)
[2017-02-14] MEDS: DRONABINOL 2.5 MG CAP PO SCH ×3 (07:30→17:10)
--- NOTE | 2017-02-14 07:56 | RADRPT ---
PROCEDURE: US upper extremity Venous. CLINICAL INDICATION: Upper extremity swelling TECHNIQUE: Multiple sonographic images of the left upper extremity venous system was obtained util izing grant scale, color-flow, compressive sonography and doppler imaging with augmentation. COMPARISON: Chest 02/10/2017 FINDINGS: Nonocclusive thrombus around the PICC catheter within the left brachial vein, axillary vein and subc lavian vein. Normal flow within the left internal jugular vein and basilic vein.. Cephalic vein not visualized. IMPRESSION: Nonocclusive thrombus around the PICC catheter within the left brachial vein, axillary vein and subc lavian vein. Results were given to the patient's nurseFani on 02/13 at 20:44.. RPTAT:AAJJ Physician Monico Date Time Electronically viewed and signed by Physician Monico on 02/14/2017 07:55 /
[2017-02-14 08:00] VITALS: BP 111/69; RESP 16
[2017-02-14] MEDS: LEVALBUTEROL (NEB) 0.63 MG/3 ML AMP HHN SCH ×3 (08:30→21:43)
[2017-02-14] MEDS: OXYMETAZOLINE 0.05% 15 ML NAS SPRAY NASAL SCH ×2 (09:48→21:14)
[2017-02-14] MEDS: morphine (ER) 15 MG TAB PO SCH ×2 (09:48→21:13)
[2017-02-14] MEDS: VORICONAZOLE 200 MG TAB PO SCH ×2 (09:48→21:13)
[2017-02-14] MEDS: ESCITALOPRAM 10 MG TAB PO SCH (09:48)
[2017-02-14] MEDS: APIXABAN 5 MG TABLET PO SCH ×2 (09:48→21:12)
--- NOTE | 2017-02-14 11:29 | CONS ---
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 Aspergillus antibody was >1:64 but aspergillus antigen in serum by EIA was negative during his last admission. 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 Fraga Consultation Date/Type/Reason Admit Date/Time Jan 31, 2017 at 18:59 Initial Consult Date 02/01/17 Type of Consultation: [facility] Referring Provider: TRAMAINE ELLSWORTH 24 HR Interval Summary Constitutional: requiring O2 Detailed Summary Respiratory: shortness of breath Cardiovascular: no complaints Gastrointestinal: decreased appetite Musculoskeletal: no complaints Neurologic: no complaints Exam/Review of Systems Vital Signs Vitals Vital Signs Date Time Temp Pulse Resp B/P Pulse Ox O2 Delivery O2 Flow Rate FiO2 02/14/17 08:00 97.5 89 16 111/69 98 02/14/17 05:15 4.0 02/14/17 03:40 40 02/14/17 01:00 Nasal Cannula Intake and Output 02/13/17 02/13/17 02/14/17 15:00 23:00 07:00 Intake Total 240 ml Balance 240 ml Exam Constitutional: alert, oriented, well developed Respiratory: diminished breath sounds Cardiovascular: nl pulses, regular rate and rhythm Gastrointestinal: non-tender, soft Extremities: edema, other (diminshed pulses due to edema) Neurological: nl mental status, nl speech Results Result Diagram: 02/14/17 0438 02/14/17 0438 Results 24 hrs Laboratory Tests Test 02/13/17 18:20 02/14/17 04:38 Albumin 2.8 L 2.2 L White Blood Count 4.5 L Red Blood Count 2.52 L Hemoglobin 8.1 L Hematocrit 26.7 L Mean Corpuscular Volume 106.0 H Mean Corpuscular Hemoglobin 32.1 Mean Corpuscular Hemoglobin Concent 30.3 L Red Cell Distribution Width 15.1 H Platelet Count 117 L Mean Platelet Volume 10.5 H Neutrophils % 70.9 Lymphocytes % 14.4 L Monocytes % 12.4 H Eosinophils % 0.9 Basophils % 0.7 Nucleated Red Blood Cells % 0.0 Neutrophils # 3.2 Lymphocytes # 0.7 L Monocytes # 0.6 Eosinophils # 0.0 Basophils # 0.0 Nucleated Red Blood Cells # 0.0 Sodium Level 137 Potassium Level 3.8 Chloride Level 103 Carbon Dioxide Level 32 H Anion Gap 6 L Blood Urea Nitrogen 19 Creatinine 1.40 H Glucose Level 79 Calcium Level 8.0 L Total Bilirubin 0.0 L Direct Bilirubin 0.00 Indirect Bilirubin 0.0 Aspartate Amino Transf (AST/SGOT) 28 Alanine Aminotransferase (ALT/SGPT) 26 Alkaline Phosphatase 80 Total Protein 4.4 L Medications Medications Current Medications Aspirin (Halfprin) 81 mg Q7D PO Last administered on 02/08/17 09:04; Admin Dose 81 MG; Start 02/01/17 at 09:00 Atorvastatin Calcium (Lipitor) 20 mg QHS PO Last administered on 02/13/17 21: 26; Admin Dose 20 MG; Start 01/31/17 at 21:00 Escitalopram Oxalate (Lexapro) 10 mg DAILY PO Last administered on 02/14/17 09 :48; Admin Dose 10 MG; Start 02/01/17 at 09:00 Ondansetron HCl (Zofran Inj) 4 mg Q6 PRN IV NAUSEA Last administered on 13:05; Admin Dose 4 MG; Start 01/31/17 at 19:30 Morphine Sulfate (Ms Contin (Er)) 15 mg BID PO Last administered on 02/14/17 09:48; Admin Dose 15 MG; Start 01/31/17 at 23:00 Morphine Sulfate (morphine) 4 mg Q4H PRN IV SEVERE PAIN LEVEL 7-10 Last administered on 02/14/17 06:45; Admin Dose 4 MG; Start 01/31/17 at 23:00 Nitroglycerin (Nitroglycerin (Sl Tab) 0.4 Mg) 1 tab Q5M PRN SL ANGINA; Start at 11:30 Pantoprazole (Protonix Tab) 40 mg DAILY@06 PO Last administered on 02/14/17 06 :31; Admin Dose 40 MG; Start 02/02/17 at 06:00 Voriconazole (Vfend) 200 mg BID PO Last administered on 02/14/17 09:48; Admin Dose 200 MG; Start 02/01/17 at 21:00 Senna (Senokot) 1 tab DAILY PRN PO CONSTIPATION Last administered on 02/03/17 20:36; Admin Dose 1 TAB; Start 02/02/17 at 16:00 Lactulose 20 gm 20 gm DAILY PRN PO CONSTIPATION; Start 02/02/17 at 16:00 Sodium Chloride (NS) 1,000 ml @ 75 mls/hr [id number] IV Last administered on 02/08 18:40; Admin Dose 75 MLS/HR; Start 02/04/17 at 08:00; Status Future Hold IV Flush (NS 10 ml) 10 ml PRN PRN IV IV PROTOCOL; Start 02/06/17 at 20:00 Oxymetazoline HCl (Afrin [place]) 2 spray BID NASAL Last administered on 09:48; Admin Dose 2 SPRAY; Start 02/07/17 at 15:00 Apixaban (Eliquis) 10 mg BID PO Last administered on 02/14/17 09:48; Admin Dose 10 MG; Start 02/14/17 at 09:00; Stop 02/20/17 at 21:00 Apixaban (Eliquis) 5 mg BID PO ; Start 02/21/17 at 09:00 TRAMAINE ELLSWORTH Feb 14, 2017 11:29
--- NOTE | 2017-02-14 11:49 | CONS ---
Date/Time of Note Date/Time of Note DATE: 02/14/17 TIME: 11:49 Assessment/Plan Assessment/Plan Additional Assessment/Plan 1. Anasarca- Fluid overload multifactorial 2. acute kidney injury 3. post obstructive PNA 4. Advanced non small lung CA 5. acute respiratory failure 6. Right subclavian Deep venous thrombosis 7. acute on chronic diastolic heart failure 8. h/o fungal pneumonia 9. Hyperlipidemia 10. hypothyroidism Plan: continue current care I will give IV albumin 25% 100ml BID with lasix 20mg IV BID- plan is to give IV albumin before lasix IV abx as per ID and PMD, renally dose all abx Will follow up Monitor Electroltyes and replace as needed. 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) Social History Alcohol Use: none Smoking Status: Former smoker Exam/Review of Systems Vital Signs Vitals Vital Signs Date Time Temp Pulse Resp B/P Pulse Ox O2 Delivery O2 Flow Rate FiO2 02/14/17 11:20 Nasal Cannula 4.0 02/14/17 08:00 97.5 89 16 111/69 98 02/14/17 03:40 40 Intake and Output 02/13/17 02/13/17 02/14/17 14:59 22:59 06:59 Intake Total 240 ml Balance 240 ml Exam Constitutional: alert Psych: no complaints Head: normocephalic Eyes: nl conjunctiva Neck: non-tender, supple Respiratory: clear to auscultation, diminished breath sounds, normal air movement Cardiovascular: nl pulses, regular rate and rhythm Gastrointestinal: non-tender, soft Musculoskeletal: other (gernalised anasarca, 2-3+ edema ) Neurological: [employer] II-XII intact, nl mental status Results Result Diagram: 02/14/17 0438 02/14/17 0438 Results 24 hrs Laboratory Tests Test 02/13/17 18:20 02/14/17 04:38 Albumin 2.8 L 2.2 L White Blood Count 4.5 L Red Blood Count 2.52 L Hemoglobin 8.1 L Hematocrit 26.7 L Mean Corpuscular Volume 106.0 H Mean Corpuscular Hemoglobin 32.1 Mean Corpuscular Hemoglobin Concent 30.3 L Red Cell Distribution Width 15.1 H Platelet Count 117 L Mean Platelet Volume 10.5 H Neutrophils % 70.9 Lymphocytes % 14.4 L Monocytes % 12.4 H Eosinophils % 0.9 Basophils % 0.7 Nucleated Red Blood Cells % 0.0 Neutrophils # 3.2 Lymphocytes # 0.7 L Monocytes # 0.6 Eosinophils # 0.0 Basophils # 0.0 Nucleated Red Blood Cells # 0.0 Sodium Level 137 Potassium Level 3.8 Chloride Level 103 Carbon Dioxide Level 32 H Anion Gap 6 L Blood Urea Nitrogen 19 Creatinine 1.40 H Glucose Level 79 Calcium Level 8.0 L Total Bilirubin 0.0 L Direct Bilirubin 0.00 Indirect Bilirubin 0.0 Aspartate Amino Transf (AST/SGOT) 28 Alanine Aminotransferase (ALT/SGPT) 26 Alkaline Phosphatase 80 Total Protein 4.4 L Medications Medications Current Medications Aspirin (Halfprin) 81 mg Q7D PO Last administered on 02/08/17 09:04; Admin Dose 81 MG; Start 02/01/17 at 09:00 Atorvastatin Calcium (Lipitor) 20 mg QHS PO Last administered on 02/13/17 21: 26; Admin Dose 20 MG; Start 01/31/17 at 21:00 Escitalopram Oxalate (Lexapro) 10 mg DAILY PO Last administered on 02/14/17 09 :48; Admin Dose 10 MG; Start 02/01/17 at 09:00 Ondansetron HCl (Zofran Inj) 4 mg Q6 PRN IV NAUSEA Last administered on 13:05; Admin Dose 4 MG; Start 01/31/17 at 19:30 Morphine Sulfate (Ms Contin (Er)) 15 mg BID PO Last administered on 02/14/17 09:48; Admin Dose 15 MG; Start 01/31/17 at 23:00 Morphine Sulfate (morphine) 4 mg Q4H PRN IV SEVERE PAIN LEVEL 7-10 Last administered on 02/14/17 06:45; Admin Dose 4 MG; Start 01/31/17 at 23:00 Nitroglycerin (Nitroglycerin (Sl Tab) 0.4 Mg) 1 tab Q5M PRN SL ANGINA; Start at 11:30 Pantoprazole (Protonix Tab) 40 mg DAILY@06 PO Last administered on 02/14/17 06 :31; Admin Dose 40 MG; Start 02/02/17 at 06:00 Voriconazole (Vfend) 200 mg BID PO Last administered on 02/14/17 09:48; Admin Dose 200 MG; Start 02/01/17 at 21:00 Senna (Senokot) 1 tab DAILY PRN PO CONSTIPATION Last administered on 02/03/17 20:36; Admin Dose 1 TAB; Start 02/02/17 at 16:00 Lactulose 20 gm 20 gm DAILY PRN PO CONSTIPATION; Start 02/02/17 at 16:00 Sodium Chloride (NS) 1,000 ml @ 75 mls/hr [id number] IV Last administered on 02/08 18:40; Admin Dose 75 MLS/HR; Start 02/04/17 at 08:00; Status Future Hold IV Flush (NS 10 ml) 10 ml PRN PRN IV IV PROTOCOL; Start 02/06/17 at 20:00 Oxymetazoline HCl (Afrin [place]) 2 spray BID NASAL Last administered on 09:48; Admin Dose 2 SPRAY; Start 02/07/17 at 15:00 Apixaban (Eliquis) 10 mg BID PO Last administered on 02/14/17 09:48; Admin Dose 10 MG; Start 02/14/17 at 09:00; Stop 02/20/17 at 21:00 Apixaban (Eliquis) 5 mg BID PO ; Start 02/21/17 at 09:00 MELODY JENSEN MD Feb 14, 2017 11:49
--- NOTE | 2017-02-14 13:11 | CONS ---
Date/Time of Note Date/Time of Note DATE: 02/14/17 TIME: 13:10 Assessment/Plan Assessment/Plan Chief Complaint/Hosp Course metastatic lung CANCER, NSCLC - ON CHEMO WITH RELATIVELY STABLE DIS D/W PULM AND RADIOLOGIST CHEMO ON HOLD DURING HOSPITALIZATION HX PANCYTOPENIA POST CHEMO MONITOR BLOOD COUNT CLOSELY LEUKOCYTOSIS PROB 2 TO POST OBSTRUCTIVE PNA HX LEUKOPENIA- POST CHEMO POST NEUPOGEN IN THE PAST PAIN PAIN CONTROL CHF, FLUID OVERLOAD GENTLE DIURESIS, CONSIDERING BORDERLINE BP POST Hypoxemic respiratory failure IN AUG 2016 , reaction to CARBO severe pneumonia/bronchitis due to enterobacter (09/22/2016-) HX DVT TREATED WITH LOVENOX PT SELF- DC 2 TO HEMOPTYSIS OUTPT History of coronary artery disease. Chronic obstructive pulmonary disease HX TOBACCO SMOKING Problems: Consultation Date/Type/Reason Admit Date/Time Jan 31, 2017 at 18:59 Initial Consult Date 01/31/17 Type of Consultation: [facility] Referring Provider: MARYAM FARMER MD 24 HR Interval Summary Free Text/Dictation ALL NOTED ON DIURETICS Exam/Review of Systems Vital Signs Vitals Vital Signs Date Time Temp Pulse Resp B/P Pulse Ox O2 Delivery O2 Flow Rate FiO2 02/14/17 11:20 Nasal Cannula 4.0 02/14/17 08:00 97.5 89 16 111/69 98 02/14/17 03:40 40 Intake and Output 02/13/17 02/13/17 02/14/17 15:00 23:00 07:00 Intake Total 240 ml Balance 240 ml Exam GENERAL: The patient is alert, awake, complaining of chest pain, shortness of breath. NECK: JVP approximately 9 cm water. CHEST: Upper airway transmitted diffuse rhonchorous sounds. Decreased breath sounds at the bases bilaterally. HEART: Regular rate and rhythm. Normal S1, increased S2. 1/6 systolic murmur. Nondisplaced PMI. ABDOMEN: Positive bowel sounds. Soft. EXTREMITIES: 2 + edema, up and lower extremities bilaterally. 1+ pulses bilateral posterior tibial. Results Result Diagram: 02/14/17 0438 02/14/17 0438 Results 24 hrs Laboratory Tests Test 02/13/17 18:20 02/14/17 04:38 Albumin 2.8 L 2.2 L White Blood Count 4.5 L Red Blood Count 2.52 L Hemoglobin 8.1 L Hematocrit 26.7 L Mean Corpuscular Volume 106.0 H Mean Corpuscular Hemoglobin 32.1 Mean Corpuscular Hemoglobin Concent 30.3 L Red Cell Distribution Width 15.1 H Platelet Count 117 L Mean Platelet Volume 10.5 H Neutrophils % 70.9 Lymphocytes % 14.4 L Monocytes % 12.4 H Eosinophils % 0.9 Basophils % 0.7 Nucleated Red Blood Cells % 0.0 Neutrophils # 3.2 Lymphocytes # 0.7 L Monocytes # 0.6 Eosinophils # 0.0 Basophils # 0.0 Nucleated Red Blood Cells # 0.0 Sodium Level 137 Potassium Level 3.8 Chloride Level 103 Carbon Dioxide Level 32 H Anion Gap 6 L Blood Urea Nitrogen 19 Creatinine 1.40 H Glucose Level 79 Calcium Level 8.0 L Total Bilirubin 0.0 L Direct Bilirubin 0.00 Indirect Bilirubin 0.0 Aspartate Amino Transf (AST/SGOT) 28 Alanine Aminotransferase (ALT/SGPT) 26 Alkaline Phosphatase 80 Total Protein 4.4 L Medications Medications Current Medications Aspirin (Halfprin) 81 mg Q7D PO Last administered on 02/08/17 09:04; Admin Dose 81 MG; Start 02/01/17 at 09:00 Atorvastatin Calcium (Lipitor) 20 mg QHS PO Last administered on 02/13/17 21: 26; Admin Dose 20 MG; Start 01/31/17 at 21:00 Escitalopram Oxalate (Lexapro) 10 mg DAILY PO Last administered on 02/14/17 09 :48; Admin Dose 10 MG; Start 02/01/17 at 09:00 Ondansetron HCl (Zofran Inj) 4 mg Q6 PRN IV NAUSEA Last administered on 13:05; Admin Dose 4 MG; Start 01/31/17 at 19:30 Morphine Sulfate (Ms Contin (Er)) 15 mg BID PO Last administered on 02/14/17 09:48; Admin Dose 15 MG; Start 01/31/17 at 23:00 Morphine Sulfate (morphine) 4 mg Q4H PRN IV SEVERE PAIN LEVEL 7-10 Last administered on 02/14/17 06:45; Admin Dose 4 MG; Start 01/31/17 at 23:00 Nitroglycerin (Nitroglycerin (Sl Tab) 0.4 Mg) 1 tab Q5M PRN SL ANGINA; Start at 11:30 Pantoprazole (Protonix Tab) 40 mg DAILY@06 PO Last administered on 02/14/17 06 :31; Admin Dose 40 MG; Start 02/02/17 at 06:00 Voriconazole (Vfend) 200 mg BID PO Last administered on 02/14/17 09:48; Admin Dose 200 MG; Start 02/01/17 at 21:00 Senna (Senokot) 1 tab DAILY PRN PO CONSTIPATION Last administered on 02/03/17 20:36; Admin Dose 1 TAB; Start 02/02/17 at 16:00 Lactulose 20 gm 20 gm DAILY PRN PO CONSTIPATION; Start 02/02/17 at 16:00 Sodium Chloride (NS) 1,000 ml @ 75 mls/hr [id number] IV Last administered on 02/08 18:40; Admin Dose 75 MLS/HR; Start 02/04/17 at 08:00; Status Future Hold IV Flush (NS 10 ml) 10 ml PRN PRN IV IV PROTOCOL; Start 02/06/17 at 20:00 Oxymetazoline HCl (Afrin [place]) 2 spray BID NASAL Last administered on 09:48; Admin Dose 2 SPRAY; Start 02/07/17 at 15:00 Apixaban (Eliquis) 10 mg BID PO Last administered on 02/14/17 09:48; Admin Dose 10 MG; Start 02/14/17 at 09:00; Stop 02/20/17 at 21:00 Apixaban (Eliquis) 5 mg BID PO ; Start 02/21/17 at 09:00 DAHIANA BABCOCK MD Feb 14, 2017 13:10
--- NOTE | 2017-02-14 13:24 | PN ---
Date/Time of Note Date/Time of Note DATE: 02/14/17 TIME: 13:20 Assessment/Plan VTE Prophylaxis VTE Prophylaxis Intervention: SCD's Lines/Catheters IV C[facility]ter Type ([facility] PICC Line Central line still needed: Yes Urinary Cath still in place: No Assessment/Plan Chief Complaint/Hosp Course Patient continues supplemental oxygen and on BiPAP overnight, complained of cough and occasional shortness of breath, denies fever. Patient started on albumin and Lasix for increased edema. Assessment/Plan - LIZ, Dr. Irving is following in nephrology consultation. - Post-obstructive pneumonia Dr. Philly perry is following infection disease consultation. Status post treatment with antibiotics. - Advanced non-small cell lung CA, Dr. Scanlon is following in oncology consultation. - Acute respiratory failure secondary to above. is following in pulmonology consultation. - Nonocclusive deep venous thrombosis in the right subclavian vein. Continue Lovenox. - Acute on chronic diastolic congestive heart failure, continue gentle diuresis , continue to monitor electrolytes. - h/o fungal pneumonia, on maintenance voriconazole - CAD, continue aspirin. - Hyperlipidemia, continue statin - Hypothyroidism, continue levothyroxine. Further recommendations based on clinical course. Plan of care discussed with Dr. Lincoln. Problems: Exam/Review of Systems Vital Signs Vitals Vital Signs Date Time Temp Pulse Resp B/P Pulse Ox O2 Delivery O2 Flow Rate FiO2 02/14/17 11:20 Nasal Cannula 4.0 02/14/17 08:00 97.5 89 16 111/69 98 02/14/17 03:40 40 Intake and Output 02/13/17 02/13/17 02/14/17 15:00 23:00 07:00 Intake Total 240 ml Balance 240 ml Exam Constitutional: alert Neck: supple Respiratory: diminished breath sounds Cardiovascular: nl pulses Gastrointestinal: non-tender, soft Extremities: edema Results Result Diagram: 02/14/17 0438 02/14/17 0438 Results 24 hrs Laboratory Tests Test 02/13/17 18:20 02/14/17 04:38 Albumin 2.8 L 2.2 L White Blood Count 4.5 L Red Blood Count 2.52 L Hemoglobin 8.1 L Hematocrit 26.7 L Mean Corpuscular Volume 106.0 H Mean Corpuscular Hemoglobin 32.1 Mean Corpuscular Hemoglobin Concent 30.3 L Red Cell Distribution Width 15.1 H Platelet Count 117 L Mean Platelet Volume 10.5 H Neutrophils % 70.9 Lymphocytes % 14.4 L Monocytes % 12.4 H Eosinophils % 0.9 Basophils % 0.7 Nucleated Red Blood Cells % 0.0 Neutrophils # 3.2 Lymphocytes # 0.7 L Monocytes # 0.6 Eosinophils # 0.0 Basophils # 0.0 Nucleated Red Blood Cells # 0.0 Sodium Level 137 Potassium Level 3.8 Chloride Level 103 Carbon Dioxide Level 32 H Anion Gap 6 L Blood Urea Nitrogen 19 Creatinine 1.40 H Glucose Level 79 Calcium Level 8.0 L Total Bilirubin 0.0 L Direct Bilirubin 0.00 Indirect Bilirubin 0.0 Aspartate Amino Transf (AST/SGOT) 28 Alanine Aminotransferase (ALT/SGPT) 26 Alkaline Phosphatase 80 Total Protein 4.4 L Medications Medications Current Medications Aspirin (Halfprin) 81 mg Q7D PO Last administered on 02/08/17 09:04; Admin Dose 81 MG; Start 02/01/17 at 09:00 Atorvastatin Calcium (Lipitor) 20 mg QHS PO Last administered on 02/13/17 21: 26; Admin Dose 20 MG; Start 01/31/17 at 21:00 Escitalopram Oxalate (Lexapro) 10 mg DAILY PO Last administered on 02/14/17 09 :48; Admin Dose 10 MG; Start 02/01/17 at 09:00 Ondansetron HCl (Zofran Inj) 4 mg Q6 PRN IV NAUSEA Last administered on 13:05; Admin Dose 4 MG; Start 01/31/17 at 19:30 Morphine Sulfate (Ms Contin (Er)) 15 mg BID PO Last administered on 02/14/17 09:48; Admin Dose 15 MG; Start 01/31/17 at 23:00 Morphine Sulfate (morphine) 4 mg Q4H PRN IV SEVERE PAIN LEVEL 7-10 Last administered on 02/14/17 06:45; Admin Dose 4 MG; Start 01/31/17 at 23:00 Nitroglycerin (Nitroglycerin (Sl Tab) 0.4 Mg) 1 tab Q5M PRN SL ANGINA; Start at 11:30 Pantoprazole (Protonix Tab) 40 mg DAILY@06 PO Last administered on 02/14/17 06 :31; Admin Dose 40 MG; Start 02/02/17 at 06:00 Voriconazole (Vfend) 200 mg BID PO Last administered on 02/14/17 09:48; Admin Dose 200 MG; Start 02/01/17 at 21:00 Senna (Senokot) 1 tab DAILY PRN PO CONSTIPATION Last administered on 02/03/17 20:36; Admin Dose 1 TAB; Start 02/02/17 at 16:00 Lactulose 20 gm 20 gm DAILY PRN PO CONSTIPATION; Start 02/02/17 at 16:00 Sodium Chloride (NS) 1,000 ml @ 75 mls/hr [id number] IV Last administered on 02/08 18:40; Admin Dose 75 MLS/HR; Start 02/04/17 at 08:00; Status Future Hold IV Flush (NS 10 ml) 10 ml PRN PRN IV IV PROTOCOL; Start 02/06/17 at 20:00 Oxymetazoline HCl (Afrin [place]) 2 spray BID NASAL Last administered on 09:48; Admin Dose 2 SPRAY; Start 02/07/17 at 15:00 Apixaban (Eliquis) 10 mg BID PO Last administered on 02/14/17 09:48; Admin Dose 10 MG; Start 02/14/17 at 09:00; Stop 02/20/17 at 21:00 Apixaban (Eliquis) 5 mg BID PO ; Start 02/21/17 at 09:00 LUBA EARLY Feb 14, 2017 13:24
[2017-02-14 14:00] VITALS: BP_SYST 111; BP_SYST 120; BP_DIAS 68; BP_DIAS 69; RESP 18
--- NOTE | 2017-02-14 14:46 | CONS ---
Date/Time of Note Date/Time of Note DATE: 02/14/17 TIME: 14:43 Consult Date/Type/Reason Admit Date/Time Jan 31, 2017 at 18:59 Initial Consult Date 02/01/17 Type of Consultation: Pulmonary Ordering Provider: MARYAM FARMER MD Subjective GENERAL: Comfortable. VITAL SIGNS: per chart NECK: Supple. No JVD or lymphadenopathy. CARDIAC EXAM: S1, S2. No added sounds or murmurs. CHEST: clear bilaterally, No added sounds, rales or wheezes ABDOMEN: Soft, nontender. No guarding or rebound. EXTREMITIES: No cyanosis, clubbing or edema. NEUROLOGIC: Generalized weakness. No focal deficits. Objective Vital Signs Date Time Temp Pulse Resp B/P Pulse Ox O2 Delivery O2 Flow Rate FiO2 02/14/17 14:22 4.0 02/14/17 14:21 89 20 95 Nasal Cannula 02/14/17 08:00 97.5 111/69 02/14/17 03:40 40 Intake and Output 02/13/17 02/13/17 02/14/17 15:00 23:00 07:00 Intake Total 240 ml Balance 240 ml Results/Medications Result Diagram: 02/14/17 0438 02/14/17 0438 Results 24 hrs Laboratory Tests Test 02/13/17 18:20 02/14/17 04:38 Albumin 2.8 L 2.2 L White Blood Count 4.5 L Red Blood Count 2.52 L Hemoglobin 8.1 L Hematocrit 26.7 L Mean Corpuscular Volume 106.0 H Mean Corpuscular Hemoglobin 32.1 Mean Corpuscular Hemoglobin Concent 30.3 L Red Cell Distribution Width 15.1 H Platelet Count 117 L Mean Platelet Volume 10.5 H Neutrophils % 70.9 Lymphocytes % 14.4 L Monocytes % 12.4 H Eosinophils % 0.9 Basophils % 0.7 Nucleated Red Blood Cells % 0.0 Neutrophils # 3.2 Lymphocytes # 0.7 L Monocytes # 0.6 Eosinophils # 0.0 Basophils # 0.0 Nucleated Red Blood Cells # 0.0 Sodium Level 137 Potassium Level 3.8 Chloride Level 103 Carbon Dioxide Level 32 H Anion Gap 6 L Blood Urea Nitrogen 19 Creatinine 1.40 H Glucose Level 79 Calcium Level 8.0 L Total Bilirubin 0.0 L Direct Bilirubin 0.00 Indirect Bilirubin 0.0 Aspartate Amino Transf (AST/SGOT) 28 Alanine Aminotransferase (ALT/SGPT) 26 Alkaline Phosphatase 80 Total Protein 4.4 L Medications Current Medications Aspirin (Halfprin) 81 mg Q7D PO Last administered on 02/08/17 09:04; Admin Dose 81 MG; Start 02/01/17 at 09:00 Atorvastatin Calcium (Lipitor) 20 mg QHS PO Last administered on 02/13/17 21: 26; Admin Dose 20 MG; Start 01/31/17 at 21:00 Escitalopram Oxalate (Lexapro) 10 mg DAILY PO Last administered on 02/14/17 09 :48; Admin Dose 10 MG; Start 02/01/17 at 09:00 Ondansetron HCl (Zofran Inj) 4 mg Q6 PRN IV NAUSEA Last administered on 13:05; Admin Dose 4 MG; Start 01/31/17 at 19:30 Morphine Sulfate (Ms Contin (Er)) 15 mg BID PO Last administered on 02/14/17 09:48; Admin Dose 15 MG; Start 01/31/17 at 23:00 Morphine Sulfate (morphine) 4 mg Q4H PRN IV SEVERE PAIN LEVEL 7-10 Last administered on 02/14/17 06:45; Admin Dose 4 MG; Start 01/31/17 at 23:00 Nitroglycerin (Nitroglycerin (Sl Tab) 0.4 Mg) 1 tab Q5M PRN SL ANGINA; Start at 11:30 Pantoprazole (Protonix Tab) 40 mg DAILY@06 PO Last administered on 02/14/17 06 :31; Admin Dose 40 MG; Start 02/02/17 at 06:00 Voriconazole (Vfend) 200 mg BID PO Last administered on 02/14/17 09:48; Admin Dose 200 MG; Start 02/01/17 at 21:00 Senna (Senokot) 1 tab DAILY PRN PO CONSTIPATION Last administered on 02/03/17 20:36; Admin Dose 1 TAB; Start 02/02/17 at 16:00 Lactulose 20 gm 20 gm DAILY PRN PO CONSTIPATION; Start 02/02/17 at 16:00 Sodium Chloride (NS) 1,000 ml @ 75 mls/hr [id number] IV Last administered on 02/08 18:40; Admin Dose 75 MLS/HR; Start 02/04/17 at 08:00; Status Future Hold IV Flush (NS 10 ml) 10 ml PRN PRN IV IV PROTOCOL; Start 02/06/17 at 20:00 Oxymetazoline HCl (Afrin [place]) 2 spray BID NASAL Last administered on 09:48; Admin Dose 2 SPRAY; Start 02/07/17 at 15:00 Apixaban (Eliquis) 10 mg BID PO Last administered on 02/14/17 09:48; Admin Dose 10 MG; Start 02/14/17 at 09:00; Stop 02/20/17 at 21:00 Apixaban (Eliquis) 5 mg BID PO ; Start 02/21/17 at 09:00 Assessment/Plan Chief Complaint/Hosp Course IMPRESSION: 1. Likely postobstructive pneumonia. 2. Metastatic non-small cell lung cancer. 3. Possible component of chronic obstructive pulmonary disease exacerbation. 4. Nonocclusive upper extremity deep vein thrombosis. PLAN: 1. Continue antibiotics. 2. Continue supplemental O2. 3. Heme-Onc recommendations. 4. Consider full anticoagulation for deep vein thrombosis. 5. DVT and GI prophylaxis. dc planning. Problems: ABIODUN SCHULTZ MD, [facility] Feb 14, 2017 14:46
--- NOTE | 2017-02-14 16:05 | CONS ---
Date/Time of Note Date/Time of Note DATE: 02/14/17 TIME: 16:02 Assessment/Plan Assessment/Plan Chief Complaint/Hosp Course IMPRESSION: 1. Chest pain. Assess for acute coronary syndrome in a patient with lung cancer, undergoing chemotherapy, likely secondary to lung cancer.-negative trop x3 2. Abnormal electrocardiogram with nonspecific ST and T-wave abnormalities, assess for acute coronary syndrome. 3. Bradycardia, transient while on beta matthew. 4. Hypotension-improved 5. Shortness of mwjjaw-yumr-iavcfzlgded PNA 6. Lung cancer with ongoing chemotherapy. 7. Leukocytosis. 8. Anemia. 9. Thrombocytopenia-stable Recc: -Tel -Continue asa as tolerated -Continue abx;'s and f/u cx data -Continue statin -? necessity of Bronch -Continue abx's and f/u cx data -pulmonary toliet -Follow BP closely -Continue lasix diuresis and follow volume status closely Problems: Consultation Date/Type/Reason Admit Date/Time Jan 31, 2017 at 18:59 Initial Consult Date 02/01/17 Type of Consultation: cardiology Reason for Consultation chest pain Referring Provider: MARYAM FARMER MD Exam/Review of Systems Vital Signs Vitals Vital Signs Date Time Temp Pulse Resp B/P Pulse Ox O2 Delivery O2 Flow Rate FiO2 02/14/17 14:22 4.0 02/14/17 14:21 89 20 95 Nasal Cannula 02/14/17 14:00 97.6 120/68 02/14/17 03:40 40 Intake and Output 02/13/17 02/13/17 02/14/17 15:00 23:00 07:00 Intake Total 240 ml Balance 240 ml Exam Review of Systems: CONSTITUTIONAL: No fevers, chills. PULMONARY: moderate sob CARDIOVASCULAR: No chest pain/palpitations GASTROINTESTINAL: No nausea/vomiting. GENITOURINARY: No hematuria/dysuria. MUSCULOSKELETAL: No myagias/arthalgias. PSYCHIATRIC: The patient denies depression. NEUROLOGIC: No weakness Constitutional: alert Psych: no complaints Head: normocephalic ENMT: mucosa pink and moist Neck: jvd (9 cm water), supple Respiratory: diminished breath sounds Cardiovascular: regular rate and rhythm Gastrointestinal: non-tender, soft Musculoskeletal: muscle tone (normal) Extremities: edema (trace/B) Neurological: other (No focal deficits) Results Result Diagram: 02/14/17 0438 02/14/17 0438 Results 24 hrs Laboratory Tests Test 02/13/17 18:20 02/14/17 04:38 Albumin 2.8 L 2.2 L White Blood Count 4.5 L Red Blood Count 2.52 L Hemoglobin 8.1 L Hematocrit 26.7 L Mean Corpuscular Volume 106.0 H Mean Corpuscular Hemoglobin 32.1 Mean Corpuscular Hemoglobin Concent 30.3 L Red Cell Distribution Width 15.1 H Platelet Count 117 L Mean Platelet Volume 10.5 H Neutrophils % 70.9 Lymphocytes % 14.4 L Monocytes % 12.4 H Eosinophils % 0.9 Basophils % 0.7 Nucleated Red Blood Cells % 0.0 Neutrophils # 3.2 Lymphocytes # 0.7 L Monocytes # 0.6 Eosinophils # 0.0 Basophils # 0.0 Nucleated Red Blood Cells # 0.0 Sodium Level 137 Potassium Level 3.8 Chloride Level 103 Carbon Dioxide Level 32 H Anion Gap 6 L Blood Urea Nitrogen 19 Creatinine 1.40 H Glucose Level 79 Calcium Level 8.0 L Total Bilirubin 0.0 L Direct Bilirubin 0.00 Indirect Bilirubin 0.0 Aspartate Amino Transf (AST/SGOT) 28 Alanine Aminotransferase (ALT/SGPT) 26 Alkaline Phosphatase 80 Total Protein 4.4 L Medications Medications Current Medications Atorvastatin Calcium (Lipitor) 20 mg QHS PO Last administered on 02/13/17 21: 26; Admin Dose 20 MG; Start 01/31/17 at 21:00 Escitalopram Oxalate (Lexapro) 10 mg DAILY PO Last administered on 02/14/17 09 :48; Admin Dose 10 MG; Start 02/01/17 at 09:00 Ondansetron HCl (Zofran Inj) 4 mg Q6 PRN IV NAUSEA Last administered on 13:05; Admin Dose 4 MG; Start 01/31/17 at 19:30 Morphine Sulfate (Ms Contin (Er)) 15 mg BID PO Last administered on 02/14/17 09:48; Admin Dose 15 MG; Start 01/31/17 at 23:00 Morphine Sulfate (morphine) 4 mg Q4H PRN IV SEVERE PAIN LEVEL 7-10 Last administered on 02/14/17 06:45; Admin Dose 4 MG; Start 01/31/17 at 23:00 Nitroglycerin (Nitroglycerin (Sl Tab) 0.4 Mg) 1 tab Q5M PRN SL ANGINA; Start at 11:30 Pantoprazole (Protonix Tab) 40 mg DAILY@06 PO Last administered on 02/14/17 06 :31; Admin Dose 40 MG; Start 02/02/17 at 06:00 Voriconazole (Vfend) 200 mg BID PO Last administered on 02/14/17 09:48; Admin Dose 200 MG; Start 02/01/17 at 21:00 Senna (Senokot) 1 tab DAILY PRN PO CONSTIPATION Last administered on 02/03/17 20:36; Admin Dose 1 TAB; Start 02/02/17 at 16:00 Lactulose 20 gm 20 gm DAILY PRN PO CONSTIPATION; Start 02/02/17 at 16:00 Sodium Chloride (NS) 1,000 ml @ 75 mls/hr [id number] IV Last administered on 02/08 18:40; Admin Dose 75 MLS/HR; Start 02/04/17 at 08:00; Status Future Hold IV Flush (NS 10 ml) 10 ml PRN PRN IV IV PROTOCOL; Start 02/06/17 at 20:00 Oxymetazoline HCl (Afrin [place]) 2 spray BID NASAL Last administered on 09:48; Admin Dose 2 SPRAY; Start 02/07/17 at 15:00 Apixaban (Eliquis) 10 mg BID PO Last administered on 02/14/17 09:48; Admin Dose 10 MG; Start 02/14/17 at 09:00; Stop 02/20/17 at 21:00 Apixaban (Eliquis) 5 mg BID PO ; Start 02/21/17 at 09:00 MARIAA ÁLVAREZ Feb 14, 2017 16:05
--- NOTE | 2017-02-14 17:52 | RADRPT ---
PROCEDURE: Chest x-ray CLINICAL INDICATION: Shortness of breath TECHNIQUE: Two views PA and lateral COMPARISON: 02/10/2017 FINDINGS: The cardiomediastinal silhouette is partially obscured. There is near-complete opacification of the right hemithorax. There is normal appearing aeration through the left lung. There is a left PICC bushra e extending to the upper superior vena cava region. There is mild to moderate appearing aortic calci fication. There is no pneumothorax. Osseous structures appear unremarkable. IMPRESSION: 1. Near complete opacification of the right chest, similar from prior examination, consistent with persistent consolidation and large pleural effusion. 2. Left PICC line extending to the upper SVC region. 3. No significant interval change. RPTAT: DD .Gokul Isabel MD, Date Time Electronically viewed and signed by .Gokul Isabel MD, on 02/14/2017 17:52 .T/
[2017-02-14] MEDS: ALBUMIN HUMAN 25% 100 ML IV SCH ×2 (19:54→23:28)
[2017-02-14 19:58] VITALS: BP_SYST 106; BP_SYST 142; BP_DIAS 58; BP_DIAS 80; RESP 18
[2017-02-14] MEDS: ATORVASTATIN 20 MG TAB PO SCH (21:12)
[2017-02-15] MEDS: FUROSEMIDE 20 MG INJ IV SCH ×3 (01:02→17:23)
[2017-02-15] MEDS: LEVALBUTEROL (NEB) 0.63 MG/3 ML AMP HHN SCH ×4 (02:28→19:18)
[2017-02-15 02:51] VITALS: BP 111/66; RESP 21
[2017-02-15] MEDS: PANTOPRAZOLE (EC) 40 MG TAB PO SCH (05:36)
[2017-02-15] MEDS: morphine 4 MG/ML VIAL IV PRN ×4 (05:37→22:27)
[2017-02-15 06:01] LABS: ABNORMAL IP MESSAGE 1; BASOPHILS % 0.3 % (0.0-2.0); EOSINOPHILS # 0.1 10^3/ul (0.0-0.5); EOSINOPHILS % 0.9 % (0.0-7.0); HEMATOCRIT 27.6 % (42.0-52.0); HEMOGLOBIN 8.5 g/dl (14.0-18.0); LYMPHOCYTES # 0.6 10^3/ul (0.8-2.9); LYMPHOCYTES % 8.1 % (15.0-51.0); MEAN CORPUSCULAR HEMOGLOBIN 32.4 pg (29.0-33.0); MEAN CORPUSCULAR HGB CONC 30.8 g/dl (32.0-37.0); MEAN CORPUSCULAR VOLUME 105.3 fl (82.0-101.0); MEAN PLATELET VOLUME 10.5 fl (7.4-10.4); MONOCYTE # 0.7 10^3/ul (0.3-0.9); MONOCYTES % 10.5 % (0.0-11.0); NEUTROPHIL # 5.4 10^3/ul (1.6-7.5); NEUTROPHILS % 79.8 % (39.0-77.0); PLATELET COUNT 129 10^3/UL (140-415); POSITIVE DIFF @See below; RED BLOOD COUNT 2.62 10^6/ul (4.70-6.10); RED CELL DISTRIBUTION WIDTH 15.2 % (11.5-14.5); WHITE BLOOD COUNT 6.8 10^3/ul (4.8-10.8)
[2017-02-15] MEDS: ONDANSETRON 4 MG INJ IV PRN (06:12)
[2017-02-15] MEDS: LEVOTHYROXINE 75 MCG TAB PO SCH (06:47)
[2017-02-15 06:49] LABS: CALCIUM 8.5 mg/dl (8.4-10.2); CREATININE 1.46 mg/dl (0.61-1.24); POTASSIUM 4.1 mmol/L (3.5-5.1)
[2017-02-15 08:00] VITALS: BP 108/68; RESP 20
[2017-02-15] MEDS: VORICONAZOLE 200 MG TAB PO SCH ×2 (08:40→20:25)
[2017-02-15] MEDS: DRONABINOL 2.5 MG CAP PO SCH ×3 (08:40→17:22)
[2017-02-15] MEDS: ESCITALOPRAM 10 MG TAB PO SCH (08:40)
[2017-02-15] MEDS: APIXABAN 5 MG TABLET PO SCH ×2 (08:40→20:24)
[2017-02-15] MEDS: morphine (ER) 15 MG TAB PO SCH ×2 (08:40→20:25)
[2017-02-15] MEDS: OXYMETAZOLINE 0.05% 15 ML NAS SPRAY NASAL SCH ×2 (08:41→20:24)
[2017-02-15] MEDS: ALBUMIN HUMAN 25% 100 ML IV SCH ×2 (08:41→20:24)
--- NOTE | 2017-02-15 12:43 | CONS ---
Date/Time of Note Date/Time of Note DATE: 02/15/17 TIME: 12:42 Consult Date/Type/Reason Admit Date/Time Jan 31, 2017 at 18:59 Initial Consult Date 02/01/17 Type of Consultation: Pulm Ordering Provider: MARYAM FARMER MD Subjective Comfortable no new events. Objective Vital Signs Date Time Temp Pulse Resp B/P Pulse Ox O2 Delivery O2 Flow Rate FiO2 02/15/17 11:27 Nasal Cannula 4.0 02/15/17 08:54 91 20 96 02/15/17 08:00 97.2 108/68 02/14/17 03:40 40 Intake and Output 02/14/17 02/14/17 02/15/17 15:00 23:00 07:00 Intake Total 1120 ml 580 ml Balance 1120 ml 580 ml Exam GENERAL: Comfortable. VITAL SIGNS: per chart NECK: Supple. No JVD or lymphadenopathy. CARDIAC EXAM: S1, S2. No added sounds or murmurs. CHEST: clear bilaterally, No added sounds, rales or wheezes ABDOMEN: Soft, nontender. No guarding or rebound. EXTREMITIES: No cyanosis, clubbing or edema. NEUROLOGIC: Generalized weakness. No focal deficits. Results/Medications Result Diagram: 02/15/17 0516 02/15/17 0516 Results 24 hrs Laboratory Tests Test 02/15/17 05:16 White Blood Count 6.8 # Red Blood Count 2.62 L Hemoglobin 8.5 L Hematocrit 27.6 L Mean Corpuscular Volume 105.3 H Mean Corpuscular Hemoglobin 32.4 Mean Corpuscular Hemoglobin Concent 30.8 L Red Cell Distribution Width 15.2 H Platelet Count 129 L Mean Platelet Volume 10.5 H Neutrophils % 79.8 H Lymphocytes % 8.1 L Monocytes % 10.5 Eosinophils % 0.9 Basophils % 0.3 Nucleated Red Blood Cells % 0.0 Neutrophils # 5.4 Lymphocytes # 0.6 L Monocytes # 0.7 Eosinophils # 0.1 Basophils # 0.0 Nucleated Red Blood Cells # 0.0 Sodium Level 139 Potassium Level 4.1 Chloride Level 101 Carbon Dioxide Level 33 H Anion Gap 9 Blood Urea Nitrogen 20 Creatinine 1.46 H Glucose Level 84 Calcium Level 8.5 Medications Current Medications Atorvastatin Calcium (Lipitor) 20 mg QHS PO Last administered on 02/14/17t 21: 12; Admin Dose 20 MG; Start 01/31/17 at 21:00 Escitalopram Oxalate (Lexapro) 10 mg DAILY PO Last administered on 02/15/17 08 :40; Admin Dose 10 MG; Start 02/01/17 at 09:00 Ondansetron HCl (Zofran Inj) 4 mg Q6 PRN IV NAUSEA Last administered on 06:12; Admin Dose 4 MG; Start 01/31/17 at 19:30 Morphine Sulfate (Ms Contin (Er)) 15 mg BID PO Last administered on 02/15/17 08:40; Admin Dose 15 MG; Start 01/31/17 at 23:00 Morphine Sulfate (morphine) 4 mg Q4H PRN IV SEVERE PAIN LEVEL 7-10 Last administered on 02/15/17 10:11; Admin Dose 4 MG; Start 01/31/17 at 23:00 Nitroglycerin (Nitroglycerin (Sl Tab) 0.4 Mg) 1 tab Q5M PRN SL ANGINA; Start at 11:30 Pantoprazole (Protonix Tab) 40 mg DAILY@06 PO Last administered on 02/15/17 05 :36; Admin Dose 40 MG; Start 02/02/17 at 06:00 Voriconazole (Vfend) 200 mg BID PO Last administered on 02/15/17 08:40; Admin Dose 200 MG; Start 02/01/17 at 21:00 Senna (Senokot) 1 tab DAILY PRN PO CONSTIPATION Last administered on 02/03/17 20:36; Admin Dose 1 TAB; Start 02/02/17 at 16:00 Lactulose (Enulose) 20 gm DAILY PRN PO CONSTIPATION; Start 02/02/17 at 16:00 IV Flush (NS 10 ml) 10 ml PRN PRN IV IV PROTOCOL; Start 02/06/17 at 20:00 Oxymetazoline HCl (Afrin [place]) 2 spray BID NASAL Last administered on 08:41; Admin Dose 2 SPRAY; Start 02/07/17 at 15:00 Apixaban (Eliquis) 10 mg BID PO Last administered on 02/15/17 08:40; Admin Dose 10 MG; Start 02/14/17 at 09:00; Stop 02/20/17 at 21:00 Apixaban 5 mg 5 mg BID PO ; Start 02/21/17 at 09:00 Albumin Human (Albumin Human 25%) 100 ml @ 100 mls/hr BID IV Last administered on 02/15/17t 08:41; Admin Dose 100 MLS/HR; Start 02/14/17 at 17:30 ; Stop 02/17/17 at 18:00 Assessment/Plan Chief Complaint/Hosp Course Impression 1. Likely postobstructive pneumonia. 2. Metastatic non-small cell lung cancer. 3. Possible component of chronic obstructive pulmonary disease exacerbation. 4. Nonocclusive upper extremity deep vein thrombosis. PLAN: 1. Continue antibiotics. 2. Continue supplemental O2. 3. Heme-Onc recommendations. 4. Consider full anticoagulation for deep vein thrombosis. 5. DVT and GI prophylaxis. dc planning. We will follow as needed. Problems: ABIODUN SCHULTZ MD, [facility] Feb 15, 2017 12:43
--- NOTE | 2017-02-15 13:35 | CONS ---
Date/Time of Note Date/Time of Note DATE: 02/15/17 TIME: 13:33 Assessment/Plan Assessment/Plan Chief Complaint/Hosp Course IMPRESSION: 1. Chest pain. Assess for acute coronary syndrome in a patient with lung cancer, undergoing chemotherapy, likely secondary to lung cancer.-negative trop x3 2. Abnormal electrocardiogram with nonspecific ST and T-wave abnormalities, assess for acute coronary syndrome. 3. Bradycardia, transient while on beta matthew. 4. Hypotension-improved 5. Shortness of iigcke-rzsk-prkrsndnoiy PNA 6. Lung cancer with ongoing chemotherapy. 7. Leukocytosis. 8. Anemia. 9. Thrombocytopenia-stable Recc: -Tel -Continue asa as tolerated -Continue abx;'s and f/u cx data -Continue statin -? necessity of Bronch -Continue abx's and f/u cx data -pulmonary toliet -Follow BP closely -Continue lasix diuresis and follow volume status closely -Agree with d/c IVF Problems: Consultation Date/Type/Reason Admit Date/Time Jan 31, 2017 at 18:59 Initial Consult Date 02/01/17 Type of Consultation: cardiology Reason for Consultation CHF Referring Provider: MARYAM FARMER MD Exam/Review of Systems Vital Signs Vitals Vital Signs Date Time Temp Pulse Resp B/P Pulse Ox O2 Delivery O2 Flow Rate FiO2 02/15/17 11:27 Nasal Cannula 4.0 02/15/17 08:54 91 20 96 02/15/17 08:00 97.2 108/68 02/14/17 03:40 40 Intake and Output 02/14/17 02/14/17 02/15/17 15:00 23:00 07:00 Intake Total 1120 ml 580 ml Balance 1120 ml 580 ml Exam Review of Systems: CONSTITUTIONAL: No fevers, chills. PULMONARY: Positive sob CARDIOVASCULAR: No chest pain/palpitations GASTROINTESTINAL: No nausea/vomiting. GENITOURINARY: No hematuria/dysuria. MUSCULOSKELETAL: No myagias/arthalgias. PSYCHIATRIC: The patient denies depression. NEUROLOGIC: mild generalized weakness Constitutional: alert, oriented Psych: no complaints Head: normocephalic ENMT: mucosa pink and moist Neck: jvd (9-10 cm water), supple Respiratory: other (diffuse rhoncherous sounds) Cardiovascular: regular rate and rhythm Gastrointestinal: non-tender, soft Musculoskeletal: muscle tone (normal) Extremities: pitting pedal edema (bilateral upper and lower extremity) Neurological: lethargic Results Result Diagram: 02/15/17 0516 02/15/17 0516 Results 24 hrs Laboratory Tests Test 02/15/17 05:16 White Blood Count 6.8 # Red Blood Count 2.62 L Hemoglobin 8.5 L Hematocrit 27.6 L Mean Corpuscular Volume 105.3 H Mean Corpuscular Hemoglobin 32.4 Mean Corpuscular Hemoglobin Concent 30.8 L Red Cell Distribution Width 15.2 H Platelet Count 129 L Mean Platelet Volume 10.5 H Neutrophils % 79.8 H Lymphocytes % 8.1 L Monocytes % 10.5 Eosinophils % 0.9 Basophils % 0.3 Nucleated Red Blood Cells % 0.0 Neutrophils # 5.4 Lymphocytes # 0.6 L Monocytes # 0.7 Eosinophils # 0.1 Basophils # 0.0 Nucleated Red Blood Cells # 0.0 Sodium Level 139 Potassium Level 4.1 Chloride Level 101 Carbon Dioxide Level 33 H Anion Gap 9 Blood Urea Nitrogen 20 Creatinine 1.46 H Glucose Level 84 Calcium Level 8.5 Medications Medications Current Medications Atorvastatin Calcium (Lipitor) 20 mg QHS PO Last administered on 02/14/17 21: 12; Admin Dose 20 MG; Start 01/31/17 at 21:00 Escitalopram Oxalate (Lexapro) 10 mg DAILY PO Last administered on 02/15/17 08 :40; Admin Dose 10 MG; Start 02/01/17 at 09:00 Ondansetron HCl (Zofran Inj) 4 mg Q6 PRN IV NAUSEA Last administered on 06:12; Admin Dose 4 MG; Start 01/31/17 at 19:30 Morphine Sulfate (Ms Contin (Er)) 15 mg BID PO Last administered on 02/15/17 08:40; Admin Dose 15 MG; Start 01/31/17 at 23:00 Morphine Sulfate (morphine) 4 mg Q4H PRN IV SEVERE PAIN LEVEL 7-10 Last administered on 02/15/17 10:11; Admin Dose 4 MG; Start 01/31/17 at 23:00 Nitroglycerin (Nitroglycerin (Sl Tab) 0.4 Mg) 1 tab Q5M PRN SL ANGINA; Start at 11:30 Pantoprazole (Protonix Tab) 40 mg DAILY@06 PO Last administered on 02/15/17 05 :36; Admin Dose 40 MG; Start 02/02/17 at 06:00 Voriconazole (Vfend) 200 mg BID PO Last administered on 02/15/17 08:40; Admin Dose 200 MG; Start 02/01/17 at 21:00 Senna (Senokot) 1 tab DAILY PRN PO CONSTIPATION Last administered on 02/03/17 20:36; Admin Dose 1 TAB; Start 02/02/17 at 16:00 Lactulose (Enulose) 20 gm DAILY PRN PO CONSTIPATION; Start 02/02/17 at 16:00 IV Flush (NS 10 ml) 10 ml PRN PRN IV IV PROTOCOL; Start 02/06/17 at 20:00 Oxymetazoline HCl (Afrin [place]) 2 spray BID NASAL Last administered on 08:41; Admin Dose 2 SPRAY; Start 02/07/17 at 15:00 Apixaban (Eliquis) 10 mg BID PO Last administered on 02/15/17 08:40; Admin Dose 10 MG; Start 02/14/17 at 09:00; Stop 02/20/17 at 21:00 Apixaban 5 mg 5 mg BID PO ; Start 02/21/17 at 09:00 Albumin Human (Albumin Human 25%) 100 ml @ 100 mls/hr BID IV Last administered on 02/15/17 08:41; Admin Dose 100 MLS/HR; Start 02/14/17 at 17:30 ; Stop 02/17/17 at 18:00 MARIAA ÁLVAREZ Feb 15, 2017 13:35
[2017-02-15 14:42] VITALS: BP 109/63; RESP 16
--- NOTE | 2017-02-15 16:42 | CONS ---
Date/Time of Note Date/Time of Note DATE: 02/15/17 TIME: 16:41 Assessment/Plan Assessment/Plan Additional Assessment/Plan 1. Anasarca- Fluid overload multifactorial 2. acute kidney injury 3. post obstructive PNA 4. Advanced non small lung CA 5. acute respiratory failure 6. Right subclavian Deep venous thrombosis 7. acute on chronic diastolic heart failure 8. h/o fungal pneumonia 9. Hyperlipidemia 10. hypothyroidism Plan: continue current care on IV albumin 25% 100ml BID with lasix 20mg IV BID- plan is to give IV albumin before lasix for better diuresis, Cr 1.46 today IV abx as per ID and PMD, renally dose all abx Will follow up Monitor Electroltyes and replace as needed. Consultation Date/Type/Reason Admit Date/Time Jan 31, 2017 at 18:59 Initial Consult Date 02/14/17 Type of Consultation: NEPHROLOGY Referring Provider: MARYAM FARMER MD Exam/Review of Systems Vital Signs Vitals Vital Signs Date Time Temp Pulse Resp B/P Pulse Ox O2 Delivery O2 Flow Rate FiO2 02/15/17 14:42 97.2 89 16 109/63 98 02/15/17 14:42 4.0 02/15/17 14:41 Nasal Cannula 02/14/17 03:40 40 Intake and Output 02/14/17 02/14/17 02/15/17 15:00 23:00 07:00 Intake Total 1120 ml 580 ml Balance 1120 ml 580 ml Exam Constitutional: alert Respiratory: clear to auscultation, diminished breath sounds, normal air movement Cardiovascular: nl pulses, regular rate and rhythm Gastrointestinal: non-tender, soft Musculoskeletal: other (gernalised anasarca, 2-3+ edema ) Neurological: [employer]IT[employer] II-XII intact, nl mental status Results Result Diagram: 02/15/17 0516 02/15/17 0516 Results 24 hrs Laboratory Tests Test 02/15/17 05:16 White Blood Count 6.8 # Red Blood Count 2.62 L Hemoglobin 8.5 L Hematocrit 27.6 L Mean Corpuscular Volume 105.3 H Mean Corpuscular Hemoglobin 32.4 Mean Corpuscular Hemoglobin Concent 30.8 L Red Cell Distribution Width 15.2 H Platelet Count 129 L Mean Platelet Volume 10.5 H Neutrophils % 79.8 H Lymphocytes % 8.1 L Monocytes % 10.5 Eosinophils % 0.9 Basophils % 0.3 Nucleated Red Blood Cells % 0.0 Neutrophils # 5.4 Lymphocytes # 0.6 L Monocytes # 0.7 Eosinophils # 0.1 Basophils # 0.0 Nucleated Red Blood Cells # 0.0 Sodium Level 139 Potassium Level 4.1 Chloride Level 101 Carbon Dioxide Level 33 H Anion Gap 9 Blood Urea Nitrogen 20 Creatinine 1.46 H Glucose Level 84 Calcium Level 8.5 Medications Medications Current Medications Atorvastatin Calcium (Lipitor) 20 mg QHS PO Last administered on 02/14/17 21: 12; Admin Dose 20 MG; Start 01/31/17 at 21:00 Escitalopram Oxalate (Lexapro) 10 mg DAILY PO Last administered on 02/15/17 08 :40; Admin Dose 10 MG; Start 02/01/17 at 09:00 Ondansetron HCl (Zofran Inj) 4 mg Q6 PRN IV NAUSEA Last administered on 06:12; Admin Dose 4 MG; Start 01/31/17 at 19:30 Morphine Sulfate (Ms Contin (Er)) 15 mg BID PO Last administered on 02/15/17 08:40; Admin Dose 15 MG; Start 01/31/17 at 23:00 Morphine Sulfate (morphine) 4 mg Q4H PRN IV SEVERE PAIN LEVEL 7-10 Last administered on 02/15/17 16:12; Admin Dose 4 MG; Start 01/31/17 at 23:00 Nitroglycerin (Nitroglycerin (Sl Tab) 0.4 Mg) 1 tab Q5M PRN SL ANGINA; Start at 11:30 Pantoprazole (Protonix Tab) 40 mg DAILY@06 PO Last administered on 02/15/17 05 :36; Admin Dose 40 MG; Start 02/02/17 at 06:00 Voriconazole (Vfend) 200 mg BID PO Last administered on 02/15/17 08:40; Admin Dose 200 MG; Start 02/01/17 at 21:00 Senna (Senokot) 1 tab DAILY PRN PO CONSTIPATION Last administered on 02/03/17 20:36; Admin Dose 1 TAB; Start 02/02/17 at 16:00 Lactulose (Enulose) 20 gm DAILY PRN PO CONSTIPATION; Start 02/02/17 at 16:00 IV Flush (NS 10 ml) 10 ml PRN PRN IV IV PROTOCOL; Start 02/06/17 at 20:00 Oxymetazoline HCl (Afrin [place]) 2 spray BID NASAL Last administered on 08:41; Admin Dose 2 SPRAY; Start 02/07/17 at 15:00 Apixaban (Eliquis) 10 mg BID PO Last administered on 02/15/17 08:40; Admin Dose 10 MG; Start 02/14/17 at 09:00; Stop 02/20/17 at 21:00 Apixaban 5 mg 5 mg BID PO ; Start 02/21/17 at 09:00 Albumin Human (Albumin Human 25%) 100 ml @ 100 mls/hr BID IV Last administered on 02/15/17 08:41; Admin Dose 100 MLS/HR; Start 02/14/17 at 17:30 ; Stop 02/17/17 at 18:00 MELODY JENSEN MD Feb 15, 2017 16:42
--- NOTE | 2017-02-15 18:09 | CONS ---
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 Aspergillus antibody was >1:64 but aspergillus antigen in serum by EIA was negative during his last admission. - h/o DVT of RUE - b/l knee pain due to DJD - h/o post-obstructive pneumonia - h/o HTN, CAD, hyperlipidemia - h/o paroxysmal A fib - h/o DVT in LUE - h/o hypothyroidism with elevated TSH level - HIV negative in 2013 - LUE edema recommendations: - monitor off systemic abx; s/p vanco, cefepime and levofloxacin - continue voriconazole for chronic suppression of aspergillus given his immunocompromised state - check LUE venous doppler to r/o DVT Problems: Consultation Date/Type/Reason Admit Date/Time Jan 31, 2017 at 18:59 Initial Consult Date 02/01/17 Type of Consultation: id Referring Provider: MARYAM FARMER MD Exam/Review of Systems Vital Signs Vitals Vital Signs Date Time Temp Pulse Resp B/P Pulse Ox O2 Delivery O2 Flow Rate FiO2 02/15/17 14:42 97.2 89 16 109/63 98 02/15/17 14:42 4.0 02/15/17 14:41 Nasal Cannula 02/14/17 03:40 40 Intake and Output 02/14/17 02/14/17 02/15/17 15:00 23:00 07:00 Intake Total 1120 ml 580 ml Balance 1120 ml 580 ml Exam Constitutional: alert, oriented Psych: no complaints Head: atraumatic, normocephalic Eyes: EOMI Neck: supple Respiratory: clear to auscultation Cardiovascular: regular rate and rhythm Gastrointestinal: soft Results Result Diagram: 02/15/17 0516 02/15/17 0516 Results 24 hrs Laboratory Tests Test 02/15/17 05:16 White Blood Count 6.8 # Red Blood Count 2.62 L Hemoglobin 8.5 L Hematocrit 27.6 L Mean Corpuscular Volume 105.3 H Mean Corpuscular Hemoglobin 32.4 Mean Corpuscular Hemoglobin Concent 30.8 L Red Cell Distribution Width 15.2 H Platelet Count 129 L Mean Platelet Volume 10.5 H Neutrophils % 79.8 H Lymphocytes % 8.1 L Monocytes % 10.5 Eosinophils % 0.9 Basophils % 0.3 Nucleated Red Blood Cells % 0.0 Neutrophils # 5.4 Lymphocytes # 0.6 L Monocytes # 0.7 Eosinophils # 0.1 Basophils # 0.0 Nucleated Red Blood Cells # 0.0 Sodium Level 139 Potassium Level 4.1 Chloride Level 101 Carbon Dioxide Level 33 H Anion Gap 9 Blood Urea Nitrogen 20 Creatinine 1.46 H Glucose Level 84 Calcium Level 8.5 Medications Medications Current Medications Atorvastatin Calcium (Lipitor) 20 mg QHS PO Last administered on 02/14/17 21: 12; Admin Dose 20 MG; Start 01/31/17 at 21:00 Escitalopram Oxalate (Lexapro) 10 mg DAILY PO Last administered on 02/15/17 08 :40; Admin Dose 10 MG; Start 02/01/17 at 09:00 Ondansetron HCl (Zofran Inj) 4 mg Q6 PRN IV NAUSEA Last administered on 06:12; Admin Dose 4 MG; Start 01/31/17 at 19:30 Morphine Sulfate (Ms Contin (Er)) 15 mg BID PO Last administered on 02/15/17 08:40; Admin Dose 15 MG; Start 01/31/17 at 23:00 Morphine Sulfate (morphine) 4 mg Q4H PRN IV SEVERE PAIN LEVEL 7-10 Last administered on 02/15/17 16:12; Admin Dose 4 MG; Start 01/31/17 at 23:00 Nitroglycerin (Nitroglycerin (Sl Tab) 0.4 Mg) 1 tab Q5M PRN SL ANGINA; Start at 11:30 Pantoprazole (Protonix Tab) 40 mg DAILY@06 PO Last administered on 02/15/17 05 :36; Admin Dose 40 MG; Start 02/02/17 at 06:00 Voriconazole (Vfend) 200 mg BID PO Last administered on 02/15/17 08:40; Admin Dose 200 MG; Start 02/01/17 at 21:00 Senna (Senokot) 1 tab DAILY PRN PO CONSTIPATION Last administered on 02/03/17 20:36; Admin Dose 1 TAB; Start 02/02/17 at 16:00 Lactulose (Enulose) 20 gm DAILY PRN PO CONSTIPATION; Start 02/02/17 at 16:00 IV Flush (NS 10 ml) 10 ml PRN PRN IV IV PROTOCOL; Start 02/06/17 at 20:00 Oxymetazoline HCl (Afrin [place]) 2 spray BID NASAL Last administered on 08:41; Admin Dose 2 SPRAY; Start 02/07/17 at 15:00 Apixaban (Eliquis) 10 mg BID PO Last administered on 02/15/17 08:40; Admin Dose 10 MG; Start 02/14/17 at 09:00; Stop 02/20/17 at 21:00 Apixaban 5 mg 5 mg BID PO ; Start 02/21/17 at 09:00 Albumin Human (Albumin Human 25%) 100 ml @ 100 mls/hr BID IV Last administered on 02/15/17 08:41; Admin Dose 100 MLS/HR; Start 02/14/17 at 17:30 ; Stop 02/17/17 at 18:00 DELIO DIALLO MD Feb 15, 2017 18:09
[2017-02-15 19:46] VITALS: BP 109/61; RESP 16
[2017-02-15] MEDS: ATORVASTATIN 20 MG TAB PO SCH (20:24)
--- NOTE | 2017-02-15 21:03 | PN ---
Date/Time of Note Date/Time of Note DATE: 02/15/17 TIME: 20:55 Assessment/Plan VTE Prophylaxis VTE Prophylaxis Intervention: other Lines/Catheters IV [facility] PICC Line Central line still needed: Yes Urinary Cath still in place: No Assessment/Plan Chief Complaint/Hosp Course - Problems: Assessment/Plan -- Hyponatremia- nephrology follows - LIZ, Dr. Irving is following in nephrology consultation. - Post-obstructive pneumonia Dr. Philly perry is following infection disease consultation. Status post treatment with antibiotics. - Advanced non-small cell lung CA, Dr. Scanlon is following in oncology consultation. - Acute respiratory failure secondary to above. is following in pulmonology consultation. - Nonocclusive deep venous thrombosis in the right subclavian vein. Continue Lovenox. - Acute on chronic diastolic congestive heart failure, continue gentle diuresis , continue to monitor electrolytes. - h/o fungal pneumonia, on maintenance voriconazole - CAD, continue aspirin. - Hyperlipidemia, continue statin - Hypothyroidism, continue levothyroxine. Further recommendations based on clinical course. Plan of care discussed with Dr. Lincoln. Subjective 24 Hr Interval Summary Free Text/Dictation sitiing up in bed, remains on supplement oxygen, c/o sob when talks. exertion - pulmonary/oncology follows. dw staff Constitutional: requiring IVF, requiring O2 Respiratory: shortness of breath Cardiovascular: no complaints Gastrointestinal: no complaints Genitourinary: no complaints Musculoskeletal: no complaints Exam/Review of Systems Vital Signs Vitals Vital Signs Date Time Temp Pulse Resp B/P Pulse Ox O2 Delivery O2 Flow Rate FiO2 02/15/17 19:23 4.0 02/15/17 19:21 89 20 96 Nasal Cannula 02/15/17 14:42 97.2 109/63 02/14/17 03:40 40 Intake and Output 02/14/17 02/14/17 02/15/17 15:00 23:00 07:00 Intake Total 1120 ml 580 ml Balance 1120 ml 580 ml Exam Constitutional: alert, well developed Respiratory: diminished breath sounds Cardiovascular: nl pulses Gastrointestinal: soft Musculoskeletal: nl extremities to inspection Extremities: normal pulses Neurological: nl mental status, nl speech Results Result Diagram: 02/15/17 0516 02/15/17 0516 Results 24 hrs Laboratory Tests Test 02/15/17 05:16 White Blood Count 6.8 # Red Blood Count 2.62 L Hemoglobin 8.5 L Hematocrit 27.6 L Mean Corpuscular Volume 105.3 H Mean Corpuscular Hemoglobin 32.4 Mean Corpuscular Hemoglobin Concent 30.8 L Red Cell Distribution Width 15.2 H Platelet Count 129 L Mean Platelet Volume 10.5 H Neutrophils % 79.8 H Lymphocytes % 8.1 L Monocytes % 10.5 Eosinophils % 0.9 Basophils % 0.3 Nucleated Red Blood Cells % 0.0 Neutrophils # 5.4 Lymphocytes # 0.6 L Monocytes # 0.7 Eosinophils # 0.1 Basophils # 0.0 Nucleated Red Blood Cells # 0.0 Sodium Level 139 Potassium Level 4.1 Chloride Level 101 Carbon Dioxide Level 33 H Anion Gap 9 Blood Urea Nitrogen 20 Creatinine 1.46 H Glucose Level 84 Calcium Level 8.5 Medications Medications Current Medications Atorvastatin Calcium (Lipitor) 20 mg QHS PO Last administered on 02/15/17 20: 24; Admin Dose 20 MG; Start 01/31/17 at 21:00 Escitalopram Oxalate (Lexapro) 10 mg DAILY PO Last administered on 02/15/17 08 :40; Admin Dose 10 MG; Start 02/01/17 at 09:00 Ondansetron HCl (Zofran Inj) 4 mg Q6 PRN IV NAUSEA Last administered on 06:12; Admin Dose 4 MG; Start 01/31/17 at 19:30 Morphine Sulfate (Ms Contin (Er)) 15 mg BID PO Last administered on 02/15/17 20:25; Admin Dose 15 MG; Start 01/31/17 at 23:00 Morphine Sulfate (morphine) 4 mg Q4H PRN IV SEVERE PAIN LEVEL 7-10 Last administered on 02/15/17 16:12; Admin Dose 4 MG; Start 01/31/17 at 23:00 Nitroglycerin (Nitroglycerin (Sl Tab) 0.4 Mg) 1 tab Q5M PRN SL ANGINA; Start at 11:30 Pantoprazole (Protonix Tab) 40 mg DAILY@06 PO Last administered on 02/15/17 05 :36; Admin Dose 40 MG; Start 02/02/17 at 06:00 Voriconazole (Vfend) 200 mg BID PO Last administered on 02/15/17 20:25; Admin Dose 200 MG; Start 02/01/17 at 21:00 Senna (Senokot) 1 tab DAILY PRN PO CONSTIPATION Last administered on 02/03/17 20:36; Admin Dose 1 TAB; Start 02/02/17 at 16:00 Lactulose (Enulose) 20 gm DAILY PRN PO CONSTIPATION; Start 02/02/17 at 16:00 IV Flush (NS 10 ml) 10 ml PRN PRN IV IV PROTOCOL; Start 02/06/17 at 20:00 Oxymetazoline HCl (Afrin [place]) 2 spray BID NASAL Last administered on 20:24; Admin Dose 2 SPRAY; Start 02/07/17 at 15:00 Apixaban (Eliquis) 10 mg BID PO Last administered on 02/15/17 20:24; Admin Dose 10 MG; Start 02/14/17 at 09:00; Stop 02/20/17 at 21:00 Apixaban 5 mg 5 mg BID PO ; Start 02/21/17 at 09:00 Albumin Human (Albumin Human 25%) 100 ml @ 100 mls/hr BID IV Last administered on 02/15/17 20:24; Admin Dose 100 MLS/HR; Start 02/14/17 at 17:30 ; Stop 02/17/17 at 18:00 TRAMAINE ELLSWORTH Feb 15, 2017 21:03
--- NOTE | 2017-02-15 22:37 | CONS ---
Date/Time of Note Date/Time of Note DATE: 02/15/17 TIME: 22:36 Assessment/Plan Assessment/Plan Chief Complaint/Hosp Course metastatic lung CANCER, NSCLC - ON CHEMO WITH RELATIVELY STABLE DIS D/W PULM AND RADIOLOGIST CHEMO ON HOLD DURING HOSPITALIZATION HX PANCYTOPENIA POST CHEMO MONITOR BLOOD COUNT CLOSELY LEUKOCYTOSIS PROB 2 TO POST OBSTRUCTIVE PNA HX LEUKOPENIA- POST CHEMO POST NEUPOGEN IN THE PAST PAIN PAIN CONTROL CHF, FLUID OVERLOAD GENTLE DIURESIS, CONSIDERING BORDERLINE BP POST Hypoxemic respiratory failure IN AUG 2016 , reaction to CARBO severe pneumonia/bronchitis due to enterobacter (09/22/2016-) HX DVT TREATED WITH LOVENOX PT SELF- DC 2 TO HEMOPTYSIS OUTPT History of coronary artery disease. Chronic obstructive pulmonary disease HX TOBACCO SMOKING Problems: Consultation Date/Type/Reason Admit Date/Time Jan 31, 2017 at 18:59 Initial Consult Date 01/31/17 [facility] Referring Provider: MARYAM FARMER MD 24 HR Interval Summary Free Text/Dictation all noted no new events Exam/Review of Systems Vital Signs Vitals Vital Signs Date Time Temp Pulse Resp B/P Pulse Ox O2 Delivery O2 Flow Rate FiO2 02/15/17 19:46 98.3 91 16 109/61 96 02/15/17 19:23 4.0 02/15/17 19:21 Nasal Cannula 02/14/17 03:40 40 Intake and Output 02/14/17 02/14/17 02/15/17 15:00 23:00 07:00 Intake Total 1120 ml 580 ml Balance 1120 ml 580 ml Exam GENERAL: The patient is alert, awake, complaining of chest pain, shortness of breath. NECK: JVP approximately 9 cm water. CHEST: Upper airway transmitted diffuse rhonchorous sounds. Decreased breath sounds at the bases bilaterally. HEART: Regular rate and rhythm. Normal S1, increased S2. 1/6 systolic murmur. Nondisplaced PMI. ABDOMEN: Positive bowel sounds. Soft. EXTREMITIES: 2 + edema, up and lower extremities bilaterally. 1+ pulses bilateral posterior tibial. Results Result Diagram: 02/15/17 0516 02/15/17 0516 Results 24 hrs Laboratory Tests Test 02/15/17 05:16 White Blood Count 6.8 # Red Blood Count 2.62 L Hemoglobin 8.5 L Hematocrit 27.6 L Mean Corpuscular Volume 105.3 H Mean Corpuscular Hemoglobin 32.4 Mean Corpuscular Hemoglobin Concent 30.8 L Red Cell Distribution Width 15.2 H Platelet Count 129 L Mean Platelet Volume 10.5 H Neutrophils % 79.8 H Lymphocytes % 8.1 L Monocytes % 10.5 Eosinophils % 0.9 Basophils % 0.3 Nucleated Red Blood Cells % 0.0 Neutrophils # 5.4 Lymphocytes # 0.6 L Monocytes # 0.7 Eosinophils # 0.1 Basophils # 0.0 Nucleated Red Blood Cells # 0.0 Sodium Level 139 Potassium Level 4.1 Chloride Level 101 Carbon Dioxide Level 33 H Anion Gap 9 Blood Urea Nitrogen 20 Creatinine 1.46 H Glucose Level 84 Calcium Level 8.5 Medications Medications Current Medications Atorvastatin Calcium (Lipitor) 20 mg QHS PO Last administered on 02/15/17 20: 24; Admin Dose 20 MG; Start 01/31/17 at 21:00 Escitalopram Oxalate (Lexapro) 10 mg DAILY PO Last administered on 02/15/17 08 :40; Admin Dose 10 MG; Start 02/01/17 at 09:00 Ondansetron HCl (Zofran Inj) 4 mg Q6 PRN IV NAUSEA Last administered on 06:12; Admin Dose 4 MG; Start 01/31/17 at 19:30 Morphine Sulfate (Ms Contin (Er)) 15 mg BID PO Last administered on 02/15/17 20:25; Admin Dose 15 MG; Start 01/31/17 at 23:00 Morphine Sulfate (morphine) 4 mg Q4H PRN IV SEVERE PAIN LEVEL 7-10 Last administered on 02/15/17 22:27; Admin Dose 4 MG; Start 01/31/17 at 23:00 Nitroglycerin (Nitroglycerin (Sl Tab) 0.4 Mg) 1 tab Q5M PRN SL ANGINA; Start at 11:30 Pantoprazole (Protonix Tab) 40 mg DAILY@06 PO Last administered on 02/15/17 05 :36; Admin Dose 40 MG; Start 02/02/17 at 06:00 Voriconazole (Vfend) 200 mg BID PO Last administered on 02/15/17 20:25; Admin Dose 200 MG; Start 02/01/17 at 21:00 Senna (Senokot) 1 tab DAILY PRN PO CONSTIPATION Last administered on 02/03/17 20:36; Admin Dose 1 TAB; Start 02/02/17 at 16:00 Lactulose (Enulose) 20 gm DAILY PRN PO CONSTIPATION; Start 02/02/17 at 16:00 IV Flush (NS 10 ml) 10 ml PRN PRN IV IV PROTOCOL; Start 02/06/17 at 20:00 Oxymetazoline HCl (Afrin [place]) 2 spray BID NASAL Last administered on 20:24; Admin Dose 2 SPRAY; Start 02/07/17 at 15:00 Apixaban (Eliquis) 10 mg BID PO Last administered on 02/15/17 20:24; Admin Dose 10 MG; Start 02/14/17 at 09:00; Stop 02/20/17 at 21:00 Apixaban 5 mg 5 mg BID PO ; Start 02/21/17 at 09:00 Albumin Human (Albumin Human 25%) 100 ml @ 100 mls/hr BID IV Last administered on 02/15/17 20:24; Admin Dose 100 MLS/HR; Start 02/14/17 at 17:30 ; Stop 02/17/17 at 18:00 DAHIANA BABCOCK MD Feb 15, 2017 22:37
[2017-02-16] MEDS: LEVALBUTEROL (NEB) 0.63 MG/3 ML AMP HHN SCH ×4 (01:22→19:52)
[2017-02-16 02:12] VITALS: BP 112/67; RESP 18
[2017-02-16 05:31] LABS: CALCIUM 8.3 mg/dl (8.4-10.2); CREATININE 1.42 mg/dl (0.61-1.24); POTASSIUM 3.9 mmol/L (3.5-5.1)
[2017-02-16 05:45] LABS: BASOPHILS % 0.6 % (0.0-2.0); EOSINOPHILS # 0.1 10^3/ul (0.0-0.5); EOSINOPHILS % 1.3 % (0.0-7.0); HEMATOCRIT 26.7 % (42.0-52.0); HEMOGLOBIN 8.1 g/dl (14.0-18.0); LYMPHOCYTES # 0.6 10^3/ul (0.8-2.9); LYMPHOCYTES % 11.9 % (15.0-51.0); MEAN CORPUSCULAR HEMOGLOBIN 32.9 pg (29.0-33.0); MEAN CORPUSCULAR HGB CONC 30.3 g/dl (32.0-37.0); MEAN CORPUSCULAR VOLUME 108.5 fl (82.0-101.0); MEAN PLATELET VOLUME 10.5 fl (7.4-10.4); MONOCYTE # 0.6 10^3/ul (0.3-0.9); MONOCYTES % 12.1 % (0.0-11.0); NEUTROPHIL # 3.8 10^3/ul (1.6-7.5); NEUTROPHILS % 73.7 % (39.0-77.0); PLATELET COUNT 114 10^3/UL (140-415); RED BLOOD COUNT 2.46 10^6/ul (4.70-6.10); RED CELL DISTRIBUTION WIDTH 15.1 % (11.5-14.5); WHITE BLOOD COUNT 5.2 10^3/ul (4.8-10.8)
[2017-02-16] MEDS: LEVOTHYROXINE 75 MCG TAB PO SCH (06:05)
[2017-02-16] MEDS: PANTOPRAZOLE (EC) 40 MG TAB PO SCH (06:05)
[2017-02-16] MEDS: FUROSEMIDE 20 MG INJ IV SCH ×2 (06:06→17:47)
[2017-02-16] MEDS: DRONABINOL 2.5 MG CAP PO SCH ×3 (08:28→17:40)
[2017-02-16] MEDS: VORICONAZOLE 200 MG TAB PO SCH ×2 (08:28→21:28)
[2017-02-16] MEDS: ESCITALOPRAM 10 MG TAB PO SCH (08:29)
[2017-02-16] MEDS: APIXABAN 5 MG TABLET PO SCH ×2 (08:29→21:28)
[2017-02-16] MEDS: morphine (ER) 15 MG TAB PO SCH ×2 (08:29→21:29)
[2017-02-16] MEDS: OXYMETAZOLINE 0.05% 15 ML NAS SPRAY NASAL SCH ×2 (08:29→21:28)
[2017-02-16] MEDS: ALBUMIN HUMAN 25% 100 ML IV SCH ×2 (08:31→21:28)
[2017-02-16 08:52] VITALS: BP 130/79; RESP 20
--- NOTE | 2017-02-16 13:43 | CONS ---
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 Aspergillus antibody was >1:64 but aspergillus antigen in serum by EIA was negative during his last admission. - h/o DVT of RUE - b/l knee pain due to DJD - h/o post-obstructive pneumonia - h/o HTN, CAD, hyperlipidemia - h/o paroxysmal A fib - h/o DVT in LUE - h/o hypothyroidism with elevated TSH level - HIV negative in 2013 - Nonocclusive thrombus around the PICC catheter within the left brachial vein, axillary vein and subclavian vein per doppler 02/13/2017 recommendations: - consider DC PICC - monitor off systemic abx; s/p vanco, cefepime and levofloxacin - continue voriconazole for chronic suppression of aspergillus given his immunocompromised state - consider Palliative care evaluation Management d/w patient, his , MARIA ELENA [place] and Dr. Fraga Problems: Consultation Date/Type/Reason Admit Date/Time Jan 31, 2017 at 18:59 Initial Consult Date 02/01/17 Type of Consultation: Infectious Disease Referring Provider: MARYAM FARMER MD 24 HR Interval Summary Free Text/Dictation C/o edema to all four extremities. SOB unchanged. Also c/o n/v. Recently medicated with Zofran. Exam/Review of Systems Vital Signs Vitals Vital Signs Date Time Temp Pulse Resp B/P Pulse Ox O2 Delivery O2 Flow Rate FiO2 02/16/17 13:25 Nasal Cannula 4.0 02/16/17 08:52 98.4 94 20 130/79 100 02/14/17 03:40 40 Intake and Output 02/15/17 02/15/17 02/16/17 15:00 23:00 07:00 Intake Total 100 ml 1160 ml 350 ml Output Total 550 ml Balance 100 ml 1160 ml -200 ml Exam Constitutional: alert, obese, oriented, well developed Psych: nl mood/affect Head: atraumatic, normocephalic, other (alopecia) Eyes: nl conjunctiva, nl lids, nl sclera ENMT: nl external ears & nose Neck: supple Respiratory: diminished breath sounds (R>L), No wheezing Cardiovascular: nl pulses, regular rate and rhythm Gastrointestinal: non-tender, soft Musculoskeletal: nl extremities to inspection Extremities: edema (LUE>RUE; also BLE), other (LUE PICC with dressing that is stained with blood) Neurological: nl mental status, other (generalized weakness) Skin: nl turgor, other (missing nail of L 2nd finger tip with less erythema but no purulence) Results Result Diagram: 02/16/17 0453 02/16/17 0453 Results 24 hrs Laboratory Tests Test 02/16/17 04:53 White Blood Count 5.2 # Red Blood Count 2.46 L Hemoglobin 8.1 L Hematocrit 26.7 L Mean Corpuscular Volume 108.5 H Mean Corpuscular Hemoglobin 32.9 Mean Corpuscular Hemoglobin Concent 30.3 L Red Cell Distribution Width 15.1 H Platelet Count 114 L Mean Platelet Volume 10.5 H Neutrophils % 73.7 Lymphocytes % 11.9 L Monocytes % 12.1 H Eosinophils % 1.3 Basophils % 0.6 Nucleated Red Blood Cells % 0.0 Neutrophils # 3.8 Lymphocytes # 0.6 L Monocytes # 0.6 Eosinophils # 0.1 Basophils # 0.0 Nucleated Red Blood Cells # 0.0 Sodium Level 140 Potassium Level 3.9 Chloride Level 100 Carbon Dioxide Level 36 H Anion Gap 8 Blood Urea Nitrogen 18 Creatinine 1.42 H Glucose Level 80 Calcium Level 8.3 L Medications Medications Current Medications Atorvastatin Calcium (Lipitor) 20 mg QHS PO Last administered on 02/15/17 20: 24; Admin Dose 20 MG; Start 01/31/17 at 21:00 Escitalopram Oxalate (Lexapro) 10 mg DAILY PO Last administered on 02/16/17 08 :29; Admin Dose 10 MG; Start 02/01/17 at 09:00 Ondansetron HCl (Zofran Inj) 4 mg Q6 PRN IV NAUSEA Last administered on 06:12; Admin Dose 4 MG; Start 01/31/17 at 19:30 Morphine Sulfate (Ms Contin (Er)) 15 mg BID PO Last administered on 02/16/17 08:29; Admin Dose 15 MG; Start 01/31/17 at 23:00 Morphine Sulfate (morphine) 4 mg Q4H PRN IV SEVERE PAIN LEVEL 7-10 Last administered on 02/15/17 22:27; Admin Dose 4 MG; Start 01/31/17 at 23:00 Nitroglycerin (Nitroglycerin (Sl Tab) 0.4 Mg) 1 tab Q5M PRN SL ANGINA; Start at 11:30 Pantoprazole (Protonix Tab) 40 mg DAILY@06 PO Last administered on 02/16/17 06 :05; Admin Dose 40 MG; Start 02/02/17 at 06:00 Voriconazole (Vfend) 200 mg BID PO Last administered on 02/16/17 08:28; Admin Dose 200 MG; Start 02/01/17 at 21:00 Senna (Senokot) 1 tab DAILY PRN PO CONSTIPATION Last administered on 02/03/17 20:36; Admin Dose 1 TAB; Start 02/02/17 at 16:00 Lactulose (Enulose) 20 gm DAILY PRN PO CONSTIPATION; Start 02/02/17 at 16:00 IV Flush (NS 10 ml) 10 ml PRN PRN IV IV PROTOCOL; Start 02/06/17 at 20:00 Oxymetazoline HCl (Afrin [place]) 2 spray BID NASAL Last administered on 08:29; Admin Dose 2 SPRAY; Start 02/07/17 at 15:00 Apixaban (Eliquis) 10 mg BID PO Last administered on 02/16/17 08:29; Admin Dose 10 MG; Start 02/14/17 at 09:00; Stop 02/20/17 at 21:00 Apixaban 5 mg 5 mg BID PO ; Start 02/21/17 at 09:00 Albumin Human (Albumin Human 25%) 100 ml @ 100 mls/hr BID IV Last administered on 02/16/17 08:31; Admin Dose 100 MLS/HR; Start 02/14/17 at 17:30 ; Stop 02/17/17 at 18:00 Procedures Procedures CXR 02/14/2017: 1. Near complete opacification of the right chest, similar from prior examination, consistent with persistent consolidation and large pleural effusion. 2. Left PICC line extending to the upper SVC region. 3. No significant interval change. LUE Venous doppler 02/13/2017: Nonocclusive thrombus around the PICC catheter within the left brachial vein, axillary vein and subclavian vein. STEPHEN LOVE CHIEF PHYSICAL THERAPIST Feb 16, 2017 13:43
[2017-02-16 14:00] VITALS: BP 104/65; RESP 20
[2017-02-16] MEDS: ONDANSETRON 4 MG INJ IV PRN (14:32)
--- NOTE | 2017-02-16 14:43 | CONS ---
Date/Time of Note Date/Time of Note DATE: 02/16/17 TIME: 14:42 Assessment/Plan Assessment/Plan Additional Assessment/Plan 1. Anasarca- Fluid overload multifactorial 2. acute kidney injury 3. post obstructive PNA 4. Advanced non small lung CA 5. acute respiratory failure 6. Right subclavian Deep venous thrombosis 7. acute on chronic diastolic heart failure 8. h/o fungal pneumonia 9. Hyperlipidemia 10. hypothyroidism Plan: continue current care on IV albumin 25% 100ml BID with lasix 20mg IV BID- plan is to give IV albumin before lasix for better diuresis, Cr 1.42 today - after pt finish IV albumin, we will continue Lasix IV IV abx as per ID and PMD, renally dose all abx Will follow up Monitor Electroltyes and replace as needed. Consultation Date/Type/Reason Admit Date/Time Jan 31, 2017 at 18:59 Initial Consult Date 02/14/17 Type of Consultation: NEPHROLOGY Referring Provider: MARYAM FARMER MD Exam/Review of Systems Vital Signs Vitals Vital Signs Date Time Temp Pulse Resp B/P Pulse Ox O2 Delivery O2 Flow Rate FiO2 02/16/17 14:05 4.0 02/16/17 14:05 92 20 96 Nasal Cannula 02/16/17 08:52 98.4 130/79 02/14/17 03:40 40 Intake and Output 02/15/17 02/15/17 02/16/17 15:00 23:00 07:00 Intake Total 100 ml 1160 ml 350 ml Output Total 550 ml Balance 100 ml 1160 ml -200 ml Exam Constitutional: alert Respiratory: clear to auscultation, diminished breath sounds, normal air movement Cardiovascular: nl pulses, regular rate and rhythm Gastrointestinal: non-tender, soft Musculoskeletal: other (gernalised anasarca, 2-3+ edema ) 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, nl mental status Results Result Diagram: 02/16/17 0453 02/16/17 0453 Results 24 hrs Laboratory Tests Test 02/16/17 04:53 White Blood Count 5.2 # Red Blood Count 2.46 L Hemoglobin 8.1 L Hematocrit 26.7 L Mean Corpuscular Volume 108.5 H Mean Corpuscular Hemoglobin 32.9 Mean Corpuscular Hemoglobin Concent 30.3 L Red Cell Distribution Width 15.1 H Platelet Count 114 L Mean Platelet Volume 10.5 H Neutrophils % 73.7 Lymphocytes % 11.9 L Monocytes % 12.1 H Eosinophils % 1.3 Basophils % 0.6 Nucleated Red Blood Cells % 0.0 Neutrophils # 3.8 Lymphocytes # 0.6 L Monocytes # 0.6 Eosinophils # 0.1 Basophils # 0.0 Nucleated Red Blood Cells # 0.0 Sodium Level 140 Potassium Level 3.9 Chloride Level 100 Carbon Dioxide Level 36 H Anion Gap 8 Blood Urea Nitrogen 18 Creatinine 1.42 H Glucose Level 80 Calcium Level 8.3 L Medications Medications Current Medications Atorvastatin Calcium (Lipitor) 20 mg QHS PO Last administered on 02/15/17 20: 24; Admin Dose 20 MG; Start 01/31/17 at 21:00 Escitalopram Oxalate (Lexapro) 10 mg DAILY PO Last administered on 02/16/17 08 :29; Admin Dose 10 MG; Start 02/01/17 at 09:00 Ondansetron HCl (Zofran Inj) 4 mg Q6 PRN IV NAUSEA Last administered on 14:32; Admin Dose 4 MG; Start 01/31/17 at 19:30 Morphine Sulfate (Ms Contin (Er)) 15 mg BID PO Last administered on 02/16/17 08:29; Admin Dose 15 MG; Start 01/31/17 at 23:00 Morphine Sulfate (morphine) 4 mg Q4H PRN IV SEVERE PAIN LEVEL 7-10 Last administered on 02/15/17 22:27; Admin Dose 4 MG; Start 01/31/17 at 23:00 Nitroglycerin (Nitroglycerin (Sl Tab) 0.4 Mg) 1 tab Q5M PRN SL ANGINA; Start at 11:30 Pantoprazole (Protonix Tab) 40 mg DAILY@06 PO Last administered on 02/16/17 06 :05; Admin Dose 40 MG; Start 02/02/17 at 06:00 Voriconazole (Vfend) 200 mg BID PO Last administered on 02/16/17 08:28; Admin Dose 200 MG; Start 02/01/17 at 21:00 Senna (Senokot) 1 tab DAILY PRN PO CONSTIPATION Last administered on 02/03/17 20:36; Admin Dose 1 TAB; Start 02/02/17 at 16:00 Lactulose (Enulose) 20 gm DAILY PRN PO CONSTIPATION; Start 02/02/17 at 16:00 IV Flush (NS 10 ml) 10 ml PRN PRN IV IV PROTOCOL; Start 02/06/17 at 20:00 Oxymetazoline HCl (Afrin [place]) 2 spray BID NASAL Last administered on 08:29; Admin Dose 2 SPRAY; Start 02/07/17 at 15:00 Apixaban (Eliquis) 10 mg BID PO Last administered on 02/16/17 08:29; Admin Dose 10 MG; Start 02/14/17 at 09:00; Stop 02/20/17 at 21:00 Apixaban 5 mg 5 mg BID PO ; Start 02/21/17 at 09:00 Albumin Human (Albumin Human 25%) 100 ml @ 100 mls/hr BID IV Last administered on 02/16/17 08:31; Admin Dose 100 MLS/HR; Start 02/14/17 at 17:30 ; Stop 02/17/17 at 18:00 MELODY JENSEN MD Feb 16, 2017 14:43
--- NOTE | 2017-02-16 15:34 | CONS ---
Date/Time of Note Date/Time of Note DATE: 02/16/17 TIME: 15:33 Assessment/Plan Assessment/Plan Chief Complaint/Hosp Course IMPRESSION: 1. Chest pain. Assess for acute coronary syndrome in a patient with lung cancer, undergoing chemotherapy, likely secondary to lung cancer.-negative trop x3 2. Abnormal electrocardiogram with nonspecific ST and T-wave abnormalities, assess for acute coronary syndrome. 3. Bradycardia, transient while on beta matthew. 4. Hypotension-improved 5. Shortness of [id number] PNA 6. Lung cancer with ongoing chemotherapy. 7. Leukocytosis. 8. Anemia. 9. Thrombocytopenia-stable Recc: -Tel -Continue asa as tolerated -Continue abx;'s and f/u cx data -Continue statin -? necessity of Bronch -Continue abx's and f/u cx data -pulmonary toliet -Follow BP closely -Continue lasix diuresis and follow volume status closely -Also agree with albumin infusion per nephrology Problems: Consultation Date/Type/Reason Admit Date/Time Jan 31, 2017 at 18:59 Initial Consult Date 02/01/17 Type of Consultation: cardiology Reason for Consultation CHF/CP Referring Provider: MARYAM FARMER MD Exam/Review of Systems Vital Signs Vitals Vital Signs Date Time Temp Pulse Resp B/P Pulse Ox O2 Delivery O2 Flow Rate FiO2 02/16/17 14:05 4.0 02/16/17 14:05 92 20 96 Nasal Cannula 02/16/17 08:52 98.4 130/79 02/14/17 03:40 40 Intake and Output 02/15/17 02/15/17 02/16/17 15:00 23:00 07:00 Intake Total 100 ml 1160 ml 350 ml Output Total 550 ml Balance 100 ml 1160 ml -200 ml Exam Review of Systems: CONSTITUTIONAL: No fevers, chills. PULMONARY: No sob CARDIOVASCULAR: No chest pain/palpitations GASTROINTESTINAL: No nausea/vomiting. GENITOURINARY: No hematuria/dysuria. MUSCULOSKELETAL: No myagias/arthalgias. PSYCHIATRIC: The patient denies depression. NEUROLOGIC: No weakness Constitutional: alert Psych: no complaints Head: normocephalic Respiratory: diminished breath sounds (at bases/B) Cardiovascular: regular rate and rhythm Gastrointestinal: non-tender, soft Musculoskeletal: muscle tone (normal) Extremities: pitting pedal edema (bilateral LE) Neurological: lethargic, other (No focal deficits) Results Result Diagram: 02/16/17 0453 02/16/17 0453 Results 24 hrs Laboratory Tests Test 02/16/17 04:53 White Blood Count 5.2 # Red Blood Count 2.46 L Hemoglobin 8.1 L Hematocrit 26.7 L Mean Corpuscular Volume 108.5 H Mean Corpuscular Hemoglobin 32.9 Mean Corpuscular Hemoglobin Concent 30.3 L Red Cell Distribution Width 15.1 H Platelet Count 114 L Mean Platelet Volume 10.5 H Neutrophils % 73.7 Lymphocytes % 11.9 L Monocytes % 12.1 H Eosinophils % 1.3 Basophils % 0.6 Nucleated Red Blood Cells % 0.0 Neutrophils # 3.8 Lymphocytes # 0.6 L Monocytes # 0.6 Eosinophils # 0.1 Basophils # 0.0 Nucleated Red Blood Cells # 0.0 Sodium Level 140 Potassium Level 3.9 Chloride Level 100 Carbon Dioxide Level 36 H Anion Gap 8 Blood Urea Nitrogen 18 Creatinine 1.42 H Glucose Level 80 Calcium Level 8.3 L Medications Medications Current Medications Atorvastatin Calcium (Lipitor) 20 mg QHS PO Last administered on 02/15/17 20: 24; Admin Dose 20 MG; Start 01/31/17 at 21:00 Escitalopram Oxalate (Lexapro) 10 mg DAILY PO Last administered on 02/16/17 08 :29; Admin Dose 10 MG; Start 02/01/17 at 09:00 Ondansetron HCl (Zofran Inj) 4 mg Q6 PRN IV NAUSEA Last administered on 14:32; Admin Dose 4 MG; Start 01/31/17 at 19:30 Morphine Sulfate (Ms Contin (Er)) 15 mg BID PO Last administered on 02/16/17 08:29; Admin Dose 15 MG; Start 01/31/17 at 23:00 Morphine Sulfate (morphine) 4 mg Q4H PRN IV SEVERE PAIN LEVEL 7-10 Last administered on 02/15/17 22:27; Admin Dose 4 MG; Start 01/31/17 at 23:00 Nitroglycerin (Nitroglycerin (Sl Tab) 0.4 Mg) 1 tab Q5M PRN SL ANGINA; Start at 11:30 Pantoprazole (Protonix Tab) 40 mg DAILY@06 PO Last administered on 02/16/17 06 :05; Admin Dose 40 MG; Start 02/02/17 at 06:00 Voriconazole (Vfend) 200 mg BID PO Last administered on 02/16/17 08:28; Admin Dose 200 MG; Start 02/01/17 at 21:00 Senna (Senokot) 1 tab DAILY PRN PO CONSTIPATION Last administered on 02/03/17 20:36; Admin Dose 1 TAB; Start 02/02/17 at 16:00 Lactulose (Enulose) 20 gm DAILY PRN PO CONSTIPATION; Start 02/02/17 at 16:00 IV Flush (NS 10 ml) 10 ml PRN PRN IV IV PROTOCOL; Start 02/06/17 at 20:00 Oxymetazoline HCl (Afrin [place]) 2 spray BID NASAL Last administered on 08:29; Admin Dose 2 SPRAY; Start 02/07/17 at 15:00 Apixaban (Eliquis) 10 mg BID PO Last administered on 02/16/17 08:29; Admin Dose 10 MG; Start 02/14/17 at 09:00; Stop 02/20/17 at 21:00 Apixaban 5 mg 5 mg BID PO ; Start 02/21/17 at 09:00 Albumin Human (Albumin Human 25%) 100 ml @ 100 mls/hr BID IV Last administered on 02/16/17 08:31; Admin Dose 100 MLS/HR; Start 02/14/17 at 17:30 ; Stop 02/17/17 at 18:00 MARIAA ÁLVAREZ Feb 16, 2017 15:34
--- NOTE | 2017-02-16 18:39 | PN ---
Date/Time of Note Date/Time of Note DATE: 02/16/17 TIME: 18:35 Assessment/Plan VTE Prophylaxis VTE Prophylaxis Intervention: SCD's Lines/Catheters IV [facility] (from [facility] PICC Line Central line still needed: Yes Urinary Cath still in place: No Assessment/Plan Chief Complaint/Hosp Course Patient's continues to have shortness of breath on exertion, no significant change change in bilateral upper extremities edema. Patient remains afebrile. Assessment/Plan - LIZ, Dr. Irving is following in nephrology consultation. - Post-obstructive pneumonia Dr. Philly perry is following infection disease consultation. Status post treatment with antibiotics. - Advanced non-small cell lung CA, Dr. Scanlon is following in oncology consultation. - Acute respiratory failure secondary to above. is following in pulmonology consultation. - Nonocclusive deep venous thrombosis bilateral upper extremities. Continue Eliquis. - Acute on chronic diastolic congestive heart failure, continue gentle diuresis , continue to monitor electrolytes. - h/o fungal pneumonia, on maintenance voriconazole - CAD, continue aspirin. - Hyperlipidemia, continue statin - Hypothyroidism, continue levothyroxine. Further recommendations based on clinical course. Plan of care discussed with Dr. Lincoln. Problems: Exam/Review of Systems Vital Signs Vitals Vital Signs Date Time Temp Pulse Resp B/P Pulse Ox O2 Delivery O2 Flow Rate FiO2 02/16/17 14:05 4.0 02/16/17 14:05 92 20 96 Nasal Cannula 02/16/17 14:00 98.1 104/65 02/14/17 03:40 40 Intake and Output 02/15/17 02/15/17 02/16/17 15:00 23:00 07:00 Intake Total 100 ml 1160 ml 350 ml Output Total 550 ml Balance 100 ml 1160 ml -200 ml Exam Constitutional: alert Neck: supple Respiratory: diminished breath sounds Cardiovascular: nl pulses Gastrointestinal: non-tender, soft Extremities: edema Results Result Diagram: 02/16/17 0453 02/16/17 0453 Results 24 hrs Laboratory Tests Test 02/16/17 04:53 White Blood Count 5.2 # Red Blood Count 2.46 L Hemoglobin 8.1 L Hematocrit 26.7 L Mean Corpuscular Volume 108.5 H Mean Corpuscular Hemoglobin 32.9 Mean Corpuscular Hemoglobin Concent 30.3 L Red Cell Distribution Width 15.1 H Platelet Count 114 L Mean Platelet Volume 10.5 H Neutrophils % 73.7 Lymphocytes % 11.9 L Monocytes % 12.1 H Eosinophils % 1.3 Basophils % 0.6 Nucleated Red Blood Cells % 0.0 Neutrophils # 3.8 Lymphocytes # 0.6 L Monocytes # 0.6 Eosinophils # 0.1 Basophils # 0.0 Nucleated Red Blood Cells # 0.0 Sodium Level 140 Potassium Level 3.9 Chloride Level 100 Carbon Dioxide Level 36 H Anion Gap 8 Blood Urea Nitrogen 18 Creatinine 1.42 H Glucose Level 80 Calcium Level 8.3 L Medications Medications Current Medications Atorvastatin Calcium (Lipitor) 20 mg QHS PO Last administered on 02/15/17 20: 24; Admin Dose 20 MG; Start 01/31/17 at 21:00 Escitalopram Oxalate (Lexapro) 10 mg DAILY PO Last administered on 02/16/17 08 :29; Admin Dose 10 MG; Start 02/01/17 at 09:00 Ondansetron HCl (Zofran Inj) 4 mg Q6 PRN IV NAUSEA Last administered on 14:32; Admin Dose 4 MG; Start 01/31/17 at 19:30 Morphine Sulfate (Ms Contin (Er)) 15 mg BID PO Last administered on 02/16/17 08:29; Admin Dose 15 MG; Start 01/31/17 at 23:00 Morphine Sulfate (morphine) 4 mg Q4H PRN IV SEVERE PAIN LEVEL 7-10 Last administered on 02/15/17 22:27; Admin Dose 4 MG; Start 01/31/17 at 23:00 Nitroglycerin (Nitroglycerin (Sl Tab) 0.4 Mg) 1 tab Q5M PRN SL ANGINA; Start at 11:30 Pantoprazole (Protonix Tab) 40 mg DAILY@06 PO Last administered on 02/16/17 06 :05; Admin Dose 40 MG; Start 02/02/17 at 06:00 Voriconazole (Vfend) 200 mg BID PO Last administered on 02/16/17 08:28; Admin Dose 200 MG; Start 02/01/17 at 21:00 Senna (Senokot) 1 tab DAILY PRN PO CONSTIPATION Last administered on 02/03/17 20:36; Admin Dose 1 TAB; Start 02/02/17 at 16:00 Lactulose (Enulose) 20 gm DAILY PRN PO CONSTIPATION; Start 02/02/17 at 16:00 IV Flush (NS 10 ml) 10 ml PRN PRN IV IV PROTOCOL; Start 02/06/17 at 20:00 Oxymetazoline HCl (Afrin [place]) 2 spray BID NASAL Last administered on 08:29; Admin Dose 2 SPRAY; Start 02/07/17 at 15:00 Apixaban (Eliquis) 10 mg BID PO Last administered on 02/16/17 08:29; Admin Dose 10 MG; Start 02/14/17 at 09:00; Stop 02/20/17 at 21:00 Apixaban 5 mg 5 mg BID PO ; Start 02/21/17 at 09:00 Albumin Human (Albumin Human 25%) 100 ml @ 100 mls/hr BID IV Last administered on 02/16/17 08:31; Admin Dose 100 MLS/HR; Start 02/14/17 at 17:30 ; Stop 02/17/17 at 18:00 LUBA EARLY Feb 16, 2017 18:39
[2017-02-16 20:00] VITALS: BP 116/72; RESP 22
[2017-02-16] MEDS: ATORVASTATIN 20 MG TAB PO SCH (21:28)
--- NOTE | 2017-02-16 23:35 | CONS ---
Date/Time of Note Date/Time of Note DATE: 02/16/17 TIME: 23:35 Assessment/Plan Assessment/Plan Chief Complaint/Hosp Course metastatic lung CANCER, NSCLC - ON CHEMO WITH RELATIVELY STABLE DIS D/W PULM AND RADIOLOGIST CHEMO ON HOLD DURING HOSPITALIZATION HX PANCYTOPENIA POST CHEMO MONITOR BLOOD COUNT CLOSELY LEUKOCYTOSIS PROB 2 TO POST OBSTRUCTIVE PNA HX LEUKOPENIA- POST CHEMO POST NEUPOGEN IN THE PAST PAIN PAIN CONTROL CHF, FLUID OVERLOAD GENTLE DIURESIS, CONSIDERING BORDERLINE BP POST Hypoxemic respiratory failure IN AUG 2016 , reaction to CARBO severe pneumonia/bronchitis due to enterobacter (09/22/2016-) HX DVT TREATED WITH LOVENOX PT SELF- DC 2 TO HEMOPTYSIS OUTPT History of coronary artery disease. Chronic obstructive pulmonary disease HX TOBACCO SMOKING Problems: Consultation Date/Type/Reason Admit Date/Time Jan 31, 2017 at 18:59 Initial Consult Date 01/31/17 Type of Consultation: hemeon Referring Provider: MARYAM FARMER MD 24 HR Interval Summary Free Text/Dictation ALL NOTED NO NEW EVENTS Exam/Review of Systems Vital Signs Vitals Vital Signs Date Time Temp Pulse Resp B/P Pulse Ox O2 Delivery O2 Flow Rate FiO2 02/16/17 20:10 95 18 96 02/16/17 20:00 98.2 116/72 02/16/17 14:05 4.0 02/16/17 14:05 Nasal Cannula 02/14/17 03:40 40 Intake and Output 02/15/17 02/15/17 02/16/17 15:00 23:00 07:00 Intake Total 100 ml 1160 ml 350 ml Output Total 550 ml Balance 100 ml 1160 ml -200 ml Results Result Diagram: 02/16/17 0453 02/16/17 0453 Results 24 hrs Laboratory Tests Test 02/16/17 04:53 White Blood Count 5.2 # Red Blood Count 2.46 L Hemoglobin 8.1 L Hematocrit 26.7 L Mean Corpuscular Volume 108.5 H Mean Corpuscular Hemoglobin 32.9 Mean Corpuscular Hemoglobin Concent 30.3 L Red Cell Distribution Width 15.1 H Platelet Count 114 L Mean Platelet Volume 10.5 H Neutrophils % 73.7 Lymphocytes % 11.9 L Monocytes % 12.1 H Eosinophils % 1.3 Basophils % 0.6 Nucleated Red Blood Cells % 0.0 Neutrophils # 3.8 Lymphocytes # 0.6 L Monocytes # 0.6 Eosinophils # 0.1 Basophils # 0.0 Nucleated Red Blood Cells # 0.0 Sodium Level 140 Potassium Level 3.9 Chloride Level 100 Carbon Dioxide Level 36 H Anion Gap 8 Blood Urea Nitrogen 18 Creatinine 1.42 H Glucose Level 80 Calcium Level 8.3 L Medications Medications Current Medications Atorvastatin Calcium (Lipitor) 20 mg QHS PO Last administered on 02/16/17 21: 28; Admin Dose 20 MG; Start 01/31/17 at 21:00 Escitalopram Oxalate (Lexapro) 10 mg DAILY PO Last administered on 02/16/17 08 :29; Admin Dose 10 MG; Start 02/01/17 at 09:00 Ondansetron HCl (Zofran Inj) 4 mg Q6 PRN IV NAUSEA Last administered on 14:32; Admin Dose 4 MG; Start 01/31/17 at 19:30 Morphine Sulfate (Ms Contin (Er)) 15 mg BID PO Last administered on 02/16/17 21:29; Admin Dose 15 MG; Start 01/31/17 at 23:00 Morphine Sulfate (morphine) 4 mg Q4H PRN IV SEVERE PAIN LEVEL 7-10 Last administered on 02/15/17 22:27; Admin Dose 4 MG; Start 01/31/17 at 23:00 Nitroglycerin (Nitroglycerin (Sl Tab) 0.4 Mg) 1 tab Q5M PRN SL ANGINA; Start at 11:30 Pantoprazole (Protonix Tab) 40 mg DAILY@06 PO Last administered on 02/16/17 06 :05; Admin Dose 40 MG; Start 02/02/17 at 06:00 Voriconazole (Vfend) 200 mg BID PO Last administered on 02/16/17 21:28; Admin Dose 200 MG; Start 02/01/17 at 21:00 Senna (Senokot) 1 tab DAILY PRN PO CONSTIPATION Last administered on 02/03/17 20:36; Admin Dose 1 TAB; Start 02/02/17 at 16:00 Lactulose (Enulose) 20 gm DAILY PRN PO CONSTIPATION; Start 02/02/17 at 16:00 IV Flush (NS 10 ml) 10 ml PRN PRN IV IV PROTOCOL; Start 02/06/17 at 20:00 Oxymetazoline HCl (Afrin [place]) 2 spray BID NASAL Last administered on 21:28; Admin Dose 2 SPRAY; Start 02/07/17 at 15:00 Apixaban (Eliquis) 10 mg BID PO Last administered on 02/16/17 21:28; Admin Dose 10 MG; Start 02/14/17 at 09:00; Stop 02/20/17 at 21:00 Apixaban 5 mg 5 mg BID PO ; Start 02/21/17 at 09:00 Albumin Human (Albumin Human 25%) 100 ml @ 100 mls/hr BID IV Last administered on 02/16/17 21:28; Admin Dose 100 MLS/HR; Start 02/14/17 at 17:30 ; Stop 02/17/17 at 18:00 DAHIANA BABCOCK MD Feb 16, 2017 23:35
[2017-02-17] MEDS: LEVALBUTEROL (NEB) 0.63 MG/3 ML AMP HHN SCH ×4 (01:41→19:49)
[2017-02-17 02:00] VITALS: BP 101/69; RESP 20
[2017-02-17] MEDS: LEVOTHYROXINE 75 MCG TAB PO SCH (06:11)
[2017-02-17] MEDS: PANTOPRAZOLE (EC) 40 MG TAB PO SCH (06:11)
[2017-02-17] MEDS: FUROSEMIDE 20 MG INJ IV SCH ×2 (06:12→21:30)
[2017-02-17 06:30] LABS: ABNORMAL IP MESSAGE 1; BASOPHILS % 0.4 % (0.0-2.0); EOSINOPHILS # 0.1 10^3/ul (0.0-0.5); HEMATOCRIT 26.7 % (42.0-52.0); HEMOGLOBIN 7.8 g/dl (14.0-18.0); LYMPHOCYTES # 0.6 10^3/ul (0.8-2.9); LYMPHOCYTES % 11.4 % (15.0-51.0); MEAN CORPUSCULAR HEMOGLOBIN 31.8 pg (29.0-33.0); MEAN CORPUSCULAR HGB CONC 29.2 g/dl (32.0-37.0); MONOCYTE # 0.6 10^3/ul (0.3-0.9); MONOCYTES % 12.2 % (0.0-11.0); NEUTROPHIL # 3.8 10^3/ul (1.6-7.5); NEUTROPHILS % 74.8 % (39.0-77.0); POSITIVE DIFF @See below; RED BLOOD COUNT 2.45 10^6/ul (4.70-6.10); RED CELL DISTRIBUTION WIDTH 15.1 % (11.5-14.5); WHITE BLOOD COUNT 5.1 10^3/ul (4.8-10.8)
[2017-02-17 07:05] LABS: MEAN PLATELET VOLUME 11.3 fl (7.4-10.4); PLATELET COUNT 117 10^3/UL (140-415)
[2017-02-17 07:43] LABS: CALCIUM 8.4 mg/dl (8.4-10.2); CREATININE 1.44 mg/dl (0.61-1.24); POTASSIUM 4.4 mmol/L (3.5-5.1)
[2017-02-17] MEDS: DRONABINOL 2.5 MG CAP PO SCH ×3 (07:45→17:35)
[2017-02-17] MEDS: ESCITALOPRAM 10 MG TAB PO SCH (07:57)
[2017-02-17] MEDS: APIXABAN 5 MG TABLET PO SCH ×2 (07:57→21:30)
[2017-02-17] MEDS: VORICONAZOLE 200 MG TAB PO SCH ×2 (07:57→21:31)
[2017-02-17] MEDS: morphine (ER) 15 MG TAB PO SCH ×2 (07:57→21:31)
[2017-02-17] MEDS: ALBUMIN HUMAN 25% 100 ML IV SCH (07:59)
[2017-02-17] MEDS: OXYMETAZOLINE 0.05% 15 ML NAS SPRAY NASAL SCH ×2 (07:59→23:31)
[2017-02-17 08:03] VITALS: BP 101/72; RESP 19
[2017-02-17] MEDS: ONDANSETRON 4 MG INJ IV PRN (11:47)
--- NOTE | 2017-02-17 12:37 | PN ---
Date/Time of Note Date/Time of Note DATE: 02/17/17 TIME: 12:16 Assessment/Plan Lines/Catheters IV Catheter Type (from [facility]): PICC Line Urinary Cath still in place: No Assessment/Plan Chief Complaint/Hosp Course - Problems: Assessment/Plan - Anemia- will get 1 unit PRBC today. CBC am - Hypotension - cardio/nephro follows - albumin per nephro - cont to monitor - LIZ, Dr. Irving is following in nephrology consultation. - Post-obstructive pneumonia Dr. Philly perry is following infection disease consultation. Status post treatment with antibiotics. - Advanced non-small cell lung CA, Dr. Scanlon is following in oncology consultation. - Acute respiratory failure secondary to above. is following in pulmonology consultation. - Nonocclusive deep venous thrombosis bilateral upper extremities. Continue Eliquis. - Acute on chronic diastolic congestive heart failure, continue gentle diuresis , continue to monitor electrolytes. - h/o fungal pneumonia, on maintenance voriconazole - CAD, continue aspirin. - Hyperlipidemia, continue statin - Hypothyroidism, continue levothyroxine. Further recommendations based on clinical course. Plan of care discussed with Dr. Lincoln. Subjective 24 Hr Interval Summary Free Text/Dictation Remains on supplement oxygen, still c/o shortness on exertion, bilateral upper extremities edema present, Patient remains afebrile., H/H dropped- will get 1 unit PRBC today. dw staff- no new events reported last night. Respiratory: shortness of breath Cardiovascular: no complaints Gastrointestinal: no complaints Genitourinary: no complaints Musculoskeletal: no complaints Neurologic: no complaints Exam/Review of Systems Vital Signs Vitals Vital Signs Date Time Temp Pulse Resp B/P Pulse Ox O2 Delivery O2 Flow Rate FiO2 02/17/17 08:06 5.0 02/17/17 08:04 89 18 95 Nasal Cannula 02/17/17 08:03 98.6 101/72 02/14/17 03:40 40 Intake and Output 02/16/17 02/16/17 02/17/17 15:00 23:00 07:00 Intake Total 100 ml 1080 ml 240 ml Output Total 800 ml Balance 100 ml 280 ml 240 ml Exam Constitutional: alert Respiratory: diminished breath sounds Cardiovascular: nl pulses Gastrointestinal: non-tender, soft Musculoskeletal: nl extremities to inspection Extremities: normal pulses Neurological: nl mental status, nl speech Results Result Diagram: 02/17/1717 02/17/17 0517 Results 24 hrs Laboratory Tests Test 02/17/17 05:17 White Blood Count 5.1 Red Blood Count 2.45 L Hemoglobin 7.8 L Hematocrit 26.7 L Mean Corpuscular Volume 109.0 H Mean Corpuscular Hemoglobin 31.8 Mean Corpuscular Hemoglobin Concent 29.2 L Red Cell Distribution Width 15.1 H Platelet Count 117 L Mean Platelet Volume 11.3 H Neutrophils % 74.8 Lymphocytes % 11.4 L Monocytes % 12.2 H Eosinophils % 1.0 Basophils % 0.4 Nucleated Red Blood Cells % 0.0 Neutrophils # 3.8 Lymphocytes # 0.6 L Monocytes # 0.6 Eosinophils # 0.1 Basophils # 0.0 Nucleated Red Blood Cells # 0.0 Sodium Level 141 Potassium Level 4.4 Chloride Level 100 Carbon Dioxide Level 34 H Anion Gap 11 Blood Urea Nitrogen 18 Creatinine 1.44 H Glucose Level 90 Calcium Level 8.4 Medications Medications Current Medications Atorvastatin Calcium (Lipitor) 20 mg QHS PO Last administered on 02/16/17 21: 28; Admin Dose 20 MG; Start 01/31/17 at 21:00 Escitalopram Oxalate (Lexapro) 10 mg DAILY PO Last administered on 02/17/17 07 :57; Admin Dose 10 MG; Start 02/01/17 at 09:00 Ondansetron HCl (Zofran Inj) 4 mg Q6 PRN IV NAUSEA Last administered on 11:47; Admin Dose 4 MG; Start 01/31/17 at 19:30 Morphine Sulfate (Ms Contin (Er)) 15 mg BID PO Last administered on 02/17/17 07:57; Admin Dose 15 MG; Start 01/31/17 at 23:00 Morphine Sulfate (morphine) 4 mg Q4H PRN IV SEVERE PAIN LEVEL 7-10 Last administered on 02/15/17 22:27; Admin Dose 4 MG; Start 01/31/17 at 23:00 Nitroglycerin (Nitroglycerin (Sl Tab) 0.4 Mg) 1 tab Q5M PRN SL ANGINA; Start at 11:30 Pantoprazole (Protonix Tab) 40 mg DAILY@06 PO Last administered on 02/17/17 06 :11; Admin Dose 40 MG; Start 02/02/17 at 06:00 Voriconazole (Vfend) 200 mg BID PO Last administered on 02/17/17 07:57; Admin Dose 200 MG; Start 02/01/17 at 21:00 Senna (Senokot) 1 tab DAILY PRN PO CONSTIPATION Last administered on 02/03/17 20:36; Admin Dose 1 TAB; Start 02/02/17 at 16:00 Lactulose (Enulose) 20 gm DAILY PRN PO CONSTIPATION; Start 02/02/17 at 16:00 IV Flush (NS 10 ml) 10 ml PRN PRN IV IV PROTOCOL; Start 02/06/17 at 20:00 Oxymetazoline HCl (Afrin [place]) 2 spray BID NASAL Last administered on 07:59; Admin Dose 2 SPRAY; Start 02/07/17 at 15:00 Apixaban (Eliquis) 10 mg BID PO Last administered on 02/17/17 07:57; Admin Dose 10 MG; Start 02/14/17 at 09:00; Stop 02/20/17 at 21:00 Apixaban 5 mg 5 mg BID PO ; Start 02/21/17 at 09:00 Albumin Human (Albumin Human 25%) 100 ml @ 100 mls/hr BID IV Last administered on 02/17/17 07:59; Admin Dose 100 MLS/HR; Start 02/14/17 at 17:30 ; Stop 02/17/17 at 18:00 TRAMAINE ELLSWORTH Feb 17, 2017 12:32
--- NOTE | 2017-02-17 12:44 | CONS ---
Date/Time of Note Date/Time of Note DATE: 02/17/17 TIME: 12:42 Assessment/Plan Assessment/Plan Additional Assessment/Plan Assessment and recommendations; 1. Patient with history of metastatic non-small cell lung cancer admitted with extensive right sided pneumonia which likely is post obstructive in etiology. 2. Subclavian vein DVT, on anticoagulation. 3. Anemia and thrombocytopenia. 4. COPD. 5. Hypothyroidism. 6. Chronic renal insufficiency. Continue current treatment. Prognosis is poor. Consultation Date/Type/Reason Admit Date/Time Jan 31, 2017 at 18:59 Initial Consult Date 02/01/17 Type of Consultation: Pulmonary Referring Provider: MARYAM FARMER MD 24 HR Interval Summary Free Text/Dictation Patient's condition is stable. Doing fairly well on nasal cannula., Has occasional hemoptysis. General examination elderly male, awake and alert. Currently in no distress. Exam/Review of Systems Vital Signs Vitals Vital Signs Date Time Temp Pulse Resp B/P Pulse Ox O2 Delivery O2 Flow Rate FiO2 02/17/17 08:06 5.0 02/17/17 08:04 89 18 95 Nasal Cannula 02/17/17 08:03 98.6 101/72 02/14/17 03:40 40 Intake and Output 02/16/17 02/16/17 02/17/17 15:00 23:00 07:00 Intake Total 100 ml 1080 ml 240 ml Output Total 800 ml Balance 100 ml 280 ml 240 ml Exam HEENT exam; supple neck, no JVD. No lymphadenopathy. Midline trachea. No thyromegaly. Pharynx is clear. Patient has fair dentition. Patient is alopecic. Chest exam is; diminished breath sounds right lung. Left lung is fairly clear to auscultation. S1-S2 audible, no murmurs. Regular rhythm. Abdomen exam; soft, no organomegaly. Bowel sounds audible. Nontender. Protuberant. Extremity exam; no peripheral edema. No clubbing. Pulses 1+ bilaterally. [employer] exam; no focal deficit. Results Result Diagram: 02/17/1717 02/17/1717 Results 24 hrs Laboratory Tests Test 02/17/17 05:17 White Blood Count 5.1 Red Blood Count 2.45 L Hemoglobin 7.8 L Hematocrit 26.7 L Mean Corpuscular Volume 109.0 H Mean Corpuscular Hemoglobin 31.8 Mean Corpuscular Hemoglobin Concent 29.2 L Red Cell Distribution Width 15.1 H Platelet Count 117 L Mean Platelet Volume 11.3 H Neutrophils % 74.8 Lymphocytes % 11.4 L Monocytes % 12.2 H Eosinophils % 1.0 Basophils % 0.4 Nucleated Red Blood Cells % 0.0 Neutrophils # 3.8 Lymphocytes # 0.6 L Monocytes # 0.6 Eosinophils # 0.1 Basophils # 0.0 Nucleated Red Blood Cells # 0.0 Sodium Level 141 Potassium Level 4.4 Chloride Level 100 Carbon Dioxide Level 34 H Anion Gap 11 Blood Urea Nitrogen 18 Creatinine 1.44 H Glucose Level 90 Calcium Level 8.4 Medications Medications Current Medications Atorvastatin Calcium (Lipitor) 20 mg QHS PO Last administered on 02/16/17 21: 28; Admin Dose 20 MG; Start 01/31/17 at 21:00 Escitalopram Oxalate (Lexapro) 10 mg DAILY PO Last administered on 02/17/17 07 :57; Admin Dose 10 MG; Start 02/01/17 at 09:00 Ondansetron HCl (Zofran Inj) 4 mg Q6 PRN IV NAUSEA Last administered on 11:47; Admin Dose 4 MG; Start 01/31/17 at 19:30 Morphine Sulfate (Ms Contin (Er)) 15 mg BID PO Last administered on 02/17/17 07:57; Admin Dose 15 MG; Start 01/31/17 at 23:00 Morphine Sulfate (morphine) 4 mg Q4H PRN IV SEVERE PAIN LEVEL 7-10 Last administered on 02/15/17 22:27; Admin Dose 4 MG; Start 01/31/17 at 23:00 Nitroglycerin (Nitroglycerin (Sl Tab) 0.4 Mg) 1 tab Q5M PRN SL ANGINA; Start at 11:30 Pantoprazole (Protonix Tab) 40 mg DAILY@06 PO Last administered on 02/17/17 06 :11; Admin Dose 40 MG; Start 02/02/17 at 06:00 Voriconazole (Vfend) 200 mg BID PO Last administered on 02/17/17 07:57; Admin Dose 200 MG; Start 02/01/17 at 21:00 Senna (Senokot) 1 tab DAILY PRN PO CONSTIPATION Last administered on 02/03/17 20:36; Admin Dose 1 TAB; Start 02/02/17 at 16:00 Lactulose (Enulose) 20 gm DAILY PRN PO CONSTIPATION; Start 02/02/17 at 16:00 IV Flush (NS 10 ml) 10 ml PRN PRN IV IV PROTOCOL; Start 02/06/17 at 20:00 Oxymetazoline HCl (Afrin [place]) 2 spray BID NASAL Last administered on 07:59; Admin Dose 2 SPRAY; Start 02/07/17 at 15:00 Apixaban (Eliquis) 10 mg BID PO Last administered on 02/17/17 07:57; Admin Dose 10 MG; Start 02/14/17 at 09:00; Stop 02/20/17 at 21:00 Apixaban 5 mg 5 mg BID PO ; Start 02/21/17 at 09:00 Albumin Human (Albumin Human 25%) 100 ml @ 100 mls/hr BID IV Last administered on 02/17/17 07:59; Admin Dose 100 MLS/HR; Start 02/14/17 at 17:30 ; Stop 02/17/17 at 18:00 ISMA CUTLER Feb 17, 2017 12:44
[2017-02-17 14:00] VITALS: BP 112/72; RESP 21
[2017-02-17] MEDS ORDERED: FUROSEMIDE 40 MG INJ IV ONE (18:00)
--- NOTE | 2017-02-17 18:12 | CONS ---
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 Aspergillus antibody was >1:64 but aspergillus antigen in serum by EIA was negative during his last admission. 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 given his immunocompromised state - consider Palliative care evaluation Problems: Consultation Date/Type/Reason Admit Date/Time Jan 31, 2017 at 18:59 Initial Consult Date 02/01/17 Type of Consultation: id Referring Provider: MARYAM FARMER MD Exam/Review of Systems Vital Signs Vitals Vital Signs Date Time Temp Pulse Resp B/P Pulse Ox O2 Delivery O2 Flow Rate FiO2 02/17/17 14:35 88 18 98 Nasal Cannula 4.0 02/17/17 14:00 97.7 112/72 02/14/17 03:40 40 Intake and Output 02/16/17 02/16/17 02/17/17 15:00 23:00 07:00 Intake Total 100 ml 1080 ml 240 ml Output Total 800 ml Balance 100 ml 280 ml 240 ml Results Result Diagram: 9/23/17 0517 9/23/17 0517 Results 24 hrs Laboratory Tests Test 02/17/17 05:17 White Blood Count 5.1 Red Blood Count 2.45 L Hemoglobin 7.8 L Hematocrit 26.7 L Mean Corpuscular Volume 109.0 H Mean Corpuscular Hemoglobin 31.8 Mean Corpuscular Hemoglobin Concent 29.2 L Red Cell Distribution Width 15.1 H Platelet Count 117 L Mean Platelet Volume 11.3 H Neutrophils % 74.8 Lymphocytes % 11.4 L Monocytes % 12.2 H Eosinophils % 1.0 Basophils % 0.4 Nucleated Red Blood Cells % 0.0 Neutrophils # 3.8 Lymphocytes # 0.6 L Monocytes # 0.6 Eosinophils # 0.1 Basophils # 0.0 Nucleated Red Blood Cells # 0.0 Sodium Level 141 Potassium Level 4.4 Chloride Level 100 Carbon Dioxide Level 34 H Anion Gap 11 Blood Urea Nitrogen 18 Creatinine 1.44 H Glucose Level 90 Calcium Level 8.4 Medications Medications Current Medications Atorvastatin Calcium (Lipitor) 20 mg QHS PO Last administered on 02/16/17 21: 28; Admin Dose 20 MG; Start 01/31/17 at 21:00 Escitalopram Oxalate (Lexapro) 10 mg DAILY PO Last administered on 02/17/17 07 :57; Admin Dose 10 MG; Start 02/01/17 at 09:00 Ondansetron HCl (Zofran Inj) 4 mg Q6 PRN IV NAUSEA Last administered on 11:47; Admin Dose 4 MG; Start 01/31/17 at 19:30 Morphine Sulfate (Ms Contin (Er)) 15 mg BID PO Last administered on 02/17/17 07:57; Admin Dose 15 MG; Start 01/31/17 at 23:00 Morphine Sulfate (morphine) 4 mg Q4H PRN IV SEVERE PAIN LEVEL 7-10 Last administered on 02/15/17 22:27; Admin Dose 4 MG; Start 01/31/17 at 23:00 Nitroglycerin (Nitroglycerin (Sl Tab) 0.4 Mg) 1 tab Q5M PRN SL ANGINA; Start at 11:30 Pantoprazole (Protonix Tab) 40 mg DAILY@06 PO Last administered on 02/17/17 06 :11; Admin Dose 40 MG; Start 02/02/17 at 06:00 Voriconazole (Vfend) 200 mg BID PO Last administered on 02/17/17 07:57; Admin Dose 200 MG; Start 02/01/17 at 21:00 Senna (Senokot) 1 tab DAILY PRN PO CONSTIPATION Last administered on 02/03/17 20:36; Admin Dose 1 TAB; Start 02/02/17 at 16:00 Lactulose (Enulose) 20 gm DAILY PRN PO CONSTIPATION; Start 02/02/17 at 16:00 IV Flush (NS 10 ml) 10 ml PRN PRN IV IV PROTOCOL; Start 02/06/17 at 20:00 Oxymetazoline HCl (Afrin [place]) 2 spray BID NASAL Last administered on 07:59; Admin Dose 2 SPRAY; Start 02/07/17 at 15:00 Apixaban (Eliquis) 10 mg BID PO Last administered on 02/17/17 07:57; Admin Dose 10 MG; Start 02/14/17 at 09:00; Stop 02/20/17 at 21:00 Apixaban (Eliquis) 5 mg BID PO ; Start 02/21/17 at 09:00 DELIO DIALLO MD Feb 17, 2017 18:12
--- NOTE | 2017-02-17 19:04 | CONS ---
Date/Time of Note Date/Time of Note DATE: 02/17/17 TIME: 19:03 Assessment/Plan Assessment/Plan Chief Complaint/Hosp Course metastatic lung CANCER, NSCLC - ON CHEMO WITH RELATIVELY STABLE DIS D/W PULM AND RADIOLOGIST CHEMO ON HOLD DURING HOSPITALIZATION HX PANCYTOPENIA POST CHEMO MONITOR BLOOD COUNT CLOSELY LEUKOCYTOSIS PROB 2 TO POST OBSTRUCTIVE PNA HX LEUKOPENIA- POST CHEMO POST NEUPOGEN IN THE PAST PAIN PAIN CONTROL CHF, FLUID OVERLOAD GENTLE DIURESIS, CONSIDERING BORDERLINE BP POST Hypoxemic respiratory failure IN AUG 2016 , reaction to CARBO severe pneumonia/bronchitis due to enterobacter (09/22/2016-) HX DVT TREATED WITH LOVENOX PT SELF- DC 2 TO HEMOPTYSIS OUTPT History of coronary artery disease. Chronic obstructive pulmonary disease HX TOBACCO SMOKING Problems: Consultation Date/Type/Reason Admit Date/Time Jan 31, 2017 at 18:59 Initial Consult Date 01/31/17 Type [facility] Referring Provider: MARYAM FARMER MD 24 HR Interval Summary Free Text/Dictation ALL NOTED NO NEW EVENTS WEAK Exam/Review of Systems Vital Signs Vitals Vital Signs Date Time Temp Pulse Resp B/P Pulse Ox O2 Delivery O2 Flow Rate FiO2 02/17/17 14:35 88 18 98 Nasal Cannula 4.0 02/17/17 14:00 97.7 112/72 02/14/17 03:40 40 Intake and Output 02/16/17 02/16/17 02/17/17 15:00 23:00 07:00 Intake Total 100 ml 1080 ml 240 ml Output Total 800 ml Balance 100 ml 280 ml 240 ml Exam GENERAL: The patient is alert, awake, complaining of chest pain, shortness of breath. NECK: JVP approximately 9 cm water. CHEST: Upper airway transmitted diffuse rhonchorous sounds. Decreased breath sounds at the bases bilaterally. HEART: Regular rate and rhythm. Normal S1, increased S2. 1/6 systolic murmur. Nondisplaced PMI. ABDOMEN: Positive bowel sounds. Soft. EXTREMITIES: 2 + edema, up and lower extremities bilaterally. 1+ pulses bilateral posterior tibial. Results Result Diagram: 02/17/1717 02/17/17 0517 Results 24 hrs Laboratory Tests Test 02/17/17 05:17 White Blood Count 5.1 Red Blood Count 2.45 L Hemoglobin 7.8 L Hematocrit 26.7 L Mean Corpuscular Volume 109.0 H Mean Corpuscular Hemoglobin 31.8 Mean Corpuscular Hemoglobin Concent 29.2 L Red Cell Distribution Width 15.1 H Platelet Count 117 L Mean Platelet Volume 11.3 H Neutrophils % 74.8 Lymphocytes % 11.4 L Monocytes % 12.2 H Eosinophils % 1.0 Basophils % 0.4 Nucleated Red Blood Cells % 0.0 Neutrophils # 3.8 Lymphocytes # 0.6 L Monocytes # 0.6 Eosinophils # 0.1 Basophils # 0.0 Nucleated Red Blood Cells # 0.0 Sodium Level 141 Potassium Level 4.4 Chloride Level 100 Carbon Dioxide Level 34 H Anion Gap 11 Blood Urea Nitrogen 18 Creatinine 1.44 H Glucose Level 90 Calcium Level 8.4 Medications Medications Current Medications Atorvastatin Calcium (Lipitor) 20 mg QHS PO Last administered on 02/16/17 21: 28; Admin Dose 20 MG; Start 01/31/17 at 21:00 Escitalopram Oxalate (Lexapro) 10 mg DAILY PO Last administered on 02/17/17 07 :57; Admin Dose 10 MG; Start 02/01/17 at 09:00 Ondansetron HCl (Zofran Inj) 4 mg Q6 PRN IV NAUSEA Last administered on 11:47; Admin Dose 4 MG; Start 01/31/17 at 19:30 Morphine Sulfate (Ms Contin (Er)) 15 mg BID PO Last administered on 02/17/17 07:57; Admin Dose 15 MG; Start 01/31/17 at 23:00 Morphine Sulfate (morphine) 4 mg Q4H PRN IV SEVERE PAIN LEVEL 7-10 Last administered on 02/15/17 22:27; Admin Dose 4 MG; Start 01/31/17 at 23:00 Nitroglycerin (Nitroglycerin (Sl Tab) 0.4 Mg) 1 tab Q5M PRN SL ANGINA; Start at 11:30 Pantoprazole (Protonix Tab) 40 mg DAILY@06 PO Last administered on 02/17/17 06 :11; Admin Dose 40 MG; Start 02/02/17 at 06:00 Voriconazole (Vfend) 200 mg BID PO Last administered on 02/17/17 07:57; Admin Dose 200 MG; Start 02/01/17 at 21:00 Senna (Senokot) 1 tab DAILY PRN PO CONSTIPATION Last administered on 02/03/17 20:36; Admin Dose 1 TAB; Start 02/02/17 at 16:00 Lactulose (Enulose) 20 gm DAILY PRN PO CONSTIPATION; Start 02/02/17 at 16:00 IV Flush (NS 10 ml) 10 ml PRN PRN IV IV PROTOCOL; Start 02/06/17 at 20:00 Oxymetazoline HCl (Afrin [place]) 2 spray BID NASAL Last administered on 07:59; Admin Dose 2 SPRAY; Start 02/07/17 at 15:00 Apixaban (Eliquis) 10 mg BID PO Last administered on 02/17/17 07:57; Admin Dose 10 MG; Start 02/14/17 at 09:00; Stop 02/20/17 at 21:00 Apixaban (Eliquis) 5 mg BID PO ; Start 02/21/17 at 09:00 DAHIANA BABCOCK MD Feb 17, 2017 19:04
--- NOTE | 2017-02-17 19:41 | CONS ---
Date/Time of Note Date/Time of Note DATE: 02/17/17 TIME: 19:41 Assessment/Plan Assessment/Plan Additional Assessment/Plan 1. Anasarca- Fluid overload multifactorial 2. acute kidney injury 3. post obstructive PNA 4. Advanced non small lung CA 5. acute respiratory failure 6. Right subclavian Deep venous thrombosis 7. acute on chronic diastolic heart failure 8. h/o fungal pneumonia 9. Hyperlipidemia 10. hypothyroidism Plan: continue current care s/p IV albumin with Lasix diureisis- now only on lasix 20mg iV BID Cr 1.44 today IV abx as per ID and PMD, renally dose all abx Will follow up Monitor Electroltyes and replace as needed. Consultation Date/Type/Reason Admit Date/Time Jan 31, 2017 at 18:59 Initial Consult Date 02/14/17 Type of Consultation: NEPHROLOGY Referring Provider: MARYAM FARMER MD Exam/Review of Systems Vital Signs Vitals Vital Signs Date Time Temp Pulse Resp B/P Pulse Ox O2 Delivery O2 Flow Rate FiO2 02/17/17 14:35 88 18 98 Nasal Cannula 4.0 02/17/17 14:00 97.7 112/72 02/14/17 03:40 40 Intake and Output 02/16/17 02/16/17 02/17/17 15:00 23:00 07:00 Intake Total 100 ml 1080 ml 240 ml Output Total 800 ml Balance 100 ml 280 ml 240 ml Results Result Diagram: 02/17/1717 02/17/17 0517 Results 24 hrs Laboratory Tests Test 02/17/17 05:17 White Blood Count 5.1 Red Blood Count 2.45 L Hemoglobin 7.8 L Hematocrit 26.7 L Mean Corpuscular Volume 109.0 H Mean Corpuscular Hemoglobin 31.8 Mean Corpuscular Hemoglobin Concent 29.2 L Red Cell Distribution Width 15.1 H Platelet Count 117 L Mean Platelet Volume 11.3 H Neutrophils % 74.8 Lymphocytes % 11.4 L Monocytes % 12.2 H Eosinophils % 1.0 Basophils % 0.4 Nucleated Red Blood Cells % 0.0 Neutrophils # 3.8 Lymphocytes # 0.6 L Monocytes # 0.6 Eosinophils # 0.1 Basophils # 0.0 Nucleated Red Blood Cells # 0.0 Sodium Level 141 Potassium Level 4.4 Chloride Level 100 Carbon Dioxide Level 34 H Anion Gap 11 Blood Urea Nitrogen 18 Creatinine 1.44 H Glucose Level 90 Calcium Level 8.4 Medications Medications Current Medications Atorvastatin Calcium (Lipitor) 20 mg QHS PO Last administered on 02/16/17 21: 28; Admin Dose 20 MG; Start 01/31/17 at 21:00 Escitalopram Oxalate (Lexapro) 10 mg DAILY PO Last administered on 02/17/17 07 :57; Admin Dose 10 MG; Start 02/01/17 at 09:00 Ondansetron HCl (Zofran Inj) 4 mg Q6 PRN IV NAUSEA Last administered on 11:47; Admin Dose 4 MG; Start 01/31/17 at 19:30 Morphine Sulfate (Ms Contin (Er)) 15 mg BID PO Last administered on 02/17/17 07:57; Admin Dose 15 MG; Start 01/31/17 at 23:00 Morphine Sulfate (morphine) 4 mg Q4H PRN IV SEVERE PAIN LEVEL 7-10 Last administered on 02/15/17 22:27; Admin Dose 4 MG; Start 01/31/17 at 23:00 Nitroglycerin (Nitroglycerin (Sl Tab) 0.4 Mg) 1 tab Q5M PRN SL ANGINA; Start at 11:30 Pantoprazole (Protonix Tab) 40 mg DAILY@06 PO Last administered on 02/17/17 06 :11; Admin Dose 40 MG; Start 02/02/17 at 06:00 Voriconazole (Vfend) 200 mg BID PO Last administered on 02/17/17 07:57; Admin Dose 200 MG; Start 02/01/17 at 21:00 Senna (Senokot) 1 tab DAILY PRN PO CONSTIPATION Last administered on 02/03/17 20:36; Admin Dose 1 TAB; Start 02/02/17 at 16:00 Lactulose (Enulose) 20 gm DAILY PRN PO CONSTIPATION; Start 02/02/17 at 16:00 IV Flush (NS 10 ml) 10 ml PRN PRN IV IV PROTOCOL; Start 02/06/17 at 20:00 Oxymetazoline HCl (Afrin [place]) 2 spray BID NASAL Last administered on 07:59; Admin Dose 2 SPRAY; Start 02/07/17 at 15:00 Apixaban (Eliquis) 10 mg BID PO Last administered on 02/17/17t 07:57; Admin Dose 10 MG; Start 02/14/17 at 09:00; Stop 02/20/17 at 21:00 Apixaban (Eliquis) 5 mg BID PO ; Start 02/21/17 at 09:00 MELODY JENSEN MD Feb 17, 2017 19:41
[2017-02-17 20:39] VITALS: BP 117/73; RESP 19
[2017-02-17] MEDS: ATORVASTATIN 20 MG TAB PO SCH (21:31)
--- NOTE | 2017-02-17 23:57 | PN ---
Date/Time of Note Date/Time of Note DATE: 02/17/17 TIME: 23:48 Assessment/Plan VTE Prophylaxis VTE Prophylaxis Intervention: other (eliquis) Lines/Catheters IV Catheter Type (from Nrs): PICC Line Urinary Cath still in place: No Subjective 24 Hr Interval Summary Free Text/Dictation Consultation Date/Time of Note Date/Time of Note DATE: 02/17/17 TIME: 23:33 Assessment/Plan Assessment/Plan Chief Complaint/Hosp Course IMPRESSION: 1. Chest pain likely due to lung cancer, undergoing chemotherapy, likely secondary to lung cancer.- negative trop x3 2. Abnormal electrocardiogram with nonspecific ST and T-wave abnormalities, assess for acute coronary syndrome. 3. Bradycardia, (transient) while on beta matthew. 4. Hypotension-improved 5. Shortness of vsuxlk-zkyc-emxrzodzmce PNA 6. Lung cancer with ongoing chemotherapy. 7. Leukocytosis. 8. Anemia. 9. Thrombocytopenia-stable Recc: -Tel -Continue asa as tolerated -Continue abx;'s and f/u cx data -Continue statin -? necessity of Bronch -Continue abx's and f/u cx data -pulmonary toliet -Follow BP closely -Continue lasix diuresis and follow volume status closely -Agree with d/c IVF Problems: Consultation Date/Type/Reason Admit Date/Time Jan 31, 2017 at 18:59 Initial Consult Date 02/01/17 Type of Consultation: cardiology Reason for Consultation CHF Referring Provider: MARYAM FARMER MD Exam/Review of Systems Vital Signs Vitals Vital Signs Date Time Temp Pulse Resp B/P Pulse Ox O2 Delivery O2 Flow Rate FiO2 02/15/17 11:27 Nasal Cannula 4.0 02/15/17 08:54 91 20 96 02/15/17 08:00 97.2 108/68 02/14/17 03:40 40 Intake and Output 02/14/17 02/14/17 02/15/17 15:00 23:00 07:00 Intake Total 1120 ml 580 ml Balance 1120 ml 580 ml Exam Review of Systems: CONSTITUTIONAL: No fevers, chills. PULMONARY: Positive sob CARDIOVASCULAR: No chest pain/palpitations GASTROINTESTINAL: No nausea/vomiting. GENITOURINARY: No hematuria/dysuria. MUSCULOSKELETAL: No myagias/arthalgias. PSYCHIATRIC: The patient denies depression. NEUROLOGIC: mild generalized weakness Constitutional: alert, oriented Psych: no complaints Head: normocephalic ENMT: mucosa pink and moist Neck: jvd (9-10 cm water), supple Respiratory: other (diffuse rhoncherous sounds) Cardiovascular: regular rate and rhythm Gastrointestinal: non-tender, soft Musculoskeletal: muscle tone (normal) Extremities: pitting pedal edema (bilateral upper and lower extremity) Neurological: lethargic Results Result Diagram: 02/15/17 0516 02/15/17 0516 Results 24 hrs Laboratory Tests Test 02/15/17 05:16 White Blood Count 6.8 # Red Blood Count 2.62 L Hemoglobin 8.5 L Hematocrit 27.6 L Mean Corpuscular Volume 105.3 H Mean Corpuscular Hemoglobin 32.4 Mean Corpuscular Hemoglobin Concent 30.8 L Red Cell Distribution Width 15.2 H Platelet Count 129 L Mean Platelet Volume 10.5 H Neutrophils % 79.8 H Lymphocytes % 8.1 L Monocytes % 10.5 Eosinophils % 0.9 Basophils % 0.3 Nucleated Red Blood Cells % 0.0 Neutrophils # 5.4 Lymphocytes # 0.6 L Monocytes # 0.7 Eosinophils # 0.1 Basophils # 0.0 Nucleated Red Blood Cells # 0.0 Sodium Level 139 Potassium Level 4.1 Chloride Level 101 Carbon Dioxide Level 33 H Anion Gap 9 Blood Urea Nitrogen 20 Creatinine 1.46 H Glucose Level 84 Calcium Level 8.5 Medications Medications Current Medications Atorvastatin Calcium (Lipitor) 20 mg QHS PO Last administered on 02/14/17 21: 12; Admin Dose 20 MG; Start 01/31/17 at 21:00 Escitalopram Oxalate (Lexapro) 10 mg DAILY PO Last administered on 02/15/17 08 :40; Admin Dose 10 MG; Start 02/01/17 at 09:00 Ondansetron HCl (Zofran Inj) 4 mg Q6 PRN IV NAUSEA Last administered on 06:12; Admin Dose 4 MG; Start 01/31/17 at 19:30 Morphine Sulfate (Ms Contin (Er)) 15 mg BID PO Last administered on 02/15/17 08:40; Admin Dose 15 MG; Start 01/31/17 at 23:00 Morphine Sulfate (morphine) 4 mg Q4H PRN IV SEVERE PAIN LEVEL 7-10 Last administered on 02/15/17 10:11; Admin Dose 4 MG; Start 01/31/17 at 23:00 Nitroglycerin (Nitroglycerin (Sl Tab) 0.4 Mg) 1 tab Q5M PRN SL ANGINA; Start at 11:30 Pantoprazole (Protonix Tab) 40 mg DAILY@06 PO Last administered on 02/15/17 05 :36; Admin Dose 40 MG; Start 02/02/17 at 06:00 Voriconazole (Vfend) 200 mg BID PO Last administered on 02/15/17 08:40; Admin Dose 200 MG; Start 02/01/17 at 21:00 Senna (Senokot) 1 tab DAILY PRN PO CONSTIPATION Last administered on 02/03/17 20:36; Admin Dose 1 TAB; Start 02/02/17 at 16:00 Lactulose (Enulose) 20 gm DAILY PRN PO CONSTIPATION; Start 02/02/17 at 16:00 IV Flush (NS 10 ml) 10 ml PRN PRN IV IV PROTOCOL; Start 02/06/17 at 20:00 Oxymetazoline HCl (Afrin [place]) 2 spray BID NASAL Last administered on 08:41; Admin Dose 2 SPRAY; Start 02/07/17 at 15:00 Apixaban (Eliquis) 10 mg BID PO Last administered on 02/15/17 08:40; Admin Dose 10 MG; Start 02/14/17 at 09:00; Stop 02/20/17 at 21:00 Apixaban 5 mg 5 mg BID PO ; Start 02/21/17 Arnaldo Elizabeth MD Exam/Review of Systems Vital Signs Vitals Vital Signs Date Time Temp Pulse Resp B/P Pulse Ox O2 Delivery O2 Flow Rate FiO2 02/17/17 20:39 98.0 92 19 117/73 98 02/17/17 19:50 Nasal Cannula 4.0 02/14/17 03:40 40 Intake and Output 02/16/17 02/16/17 02/17/17 15:00 23:00 07:00 Intake Total 100 ml 1080 ml 240 ml Output Total 800 ml Balance 100 ml 280 ml 240 ml Results Result Diagram: 02/17/1751602/17/1717 Results 24 hrs Laboratory Tests Test 02/17/17 05:17 White Blood Count 5.1 Red Blood Count 2.45 L Hemoglobin 7.8 L Hematocrit 26.7 L Mean Corpuscular Volume 109.0 H Mean Corpuscular Hemoglobin 31.8 Mean Corpuscular Hemoglobin Concent 29.2 L Red Cell Distribution Width 15.1 H Platelet Count 117 L Mean Platelet Volume 11.3 H Neutrophils % 74.8 Lymphocytes % 11.4 L Monocytes % 12.2 H Eosinophils % 1.0 Basophils % 0.4 Nucleated Red Blood Cells % 0.0 Neutrophils # 3.8 Lymphocytes # 0.6 L Monocytes # 0.6 Eosinophils # 0.1 Basophils # 0.0 Nucleated Red Blood Cells # 0.0 Sodium Level 141 Potassium Level 4.4 Chloride Level 100 Carbon Dioxide Level 34 H Anion Gap 11 Blood Urea Nitrogen 18 Creatinine 1.44 H Glucose Level 90 Calcium Level 8.4 Medications Medications Current Medications Atorvastatin Calcium (Lipitor) 20 mg QHS PO Last administered on 02/17/17 21: 31; Admin Dose 20 MG; Start 01/31/17 at 21:00 Escitalopram Oxalate (Lexapro) 10 mg DAILY PO Last administered on 02/17/17 07 :57; Admin Dose 10 MG; Start 02/01/17 at 09:00 Ondansetron HCl (Zofran Inj) 4 mg Q6 PRN IV NAUSEA Last administered on 11:47; Admin Dose 4 MG; Start 01/31/17 at 19:30 Morphine Sulfate (Ms Contin (Er)) 15 mg BID PO Last administered on 02/17/17 21:31; Admin Dose 15 MG; Start 01/31/17 at 23:00 Morphine Sulfate (morphine) 4 mg Q4H PRN IV SEVERE PAIN LEVEL 7-10 Last administered on 02/15/17 22:27; Admin Dose 4 MG; Start 01/31/17 at 23:00 Nitroglycerin (Nitroglycerin (Sl Tab) 0.4 Mg) 1 tab Q5M PRN SL ANGINA; Start at 11:30 Pantoprazole (Protonix Tab) 40 mg DAILY@06 PO Last administered on 02/17/17 06 :11; Admin Dose 40 MG; Start 02/02/17 at 06:00 Voriconazole (Vfend) 200 mg BID PO Last administered on 02/17/17 21:31; Admin Dose 200 MG; Start 02/01/17 at 21:00 Senna (Senokot) 1 tab DAILY PRN PO CONSTIPATION Last administered on 02/03/17 20:36; Admin Dose 1 TAB; Start 02/02/17 at 16:00 Lactulose (Enulose) 20 gm DAILY PRN PO CONSTIPATION; Start 02/02/17 at 16:00 IV Flush (NS 10 ml) 10 ml PRN PRN IV IV PROTOCOL; Start 02/06/17 at 20:00 Oxymetazoline HCl (Afrin [place]) 2 spray BID NASAL Last administered on 23:31; Admin Dose 2 SPRAY; Start 02/07/17 at 15:00 Apixaban (Eliquis) 10 mg BID PO Last administered on 02/17/17 21:30; Admin Dose 10 MG; Start 02/14/17 at 09:00; Stop 02/20/17 at 21:00 Apixaban (Eliquis) 5 mg BID PO ; Start 02/21/17 at 09:00 ARNALDO ELIZABETH MD Feb 17, 2017 23:57
[2017-02-18] MEDS: LEVALBUTEROL (NEB) 0.63 MG/3 ML AMP HHN SCH ×4 (01:00→20:26)
[2017-02-18 02:00] VITALS: BP 117/68; RESP 19
[2017-02-18 06:26] LABS: ABNORMAL IP MESSAGE 1; BASOPHILS % 0.4 % (0.0-2.0); EOSINOPHILS # 0.1 10^3/ul (0.0-0.5); EOSINOPHILS % 0.9 % (0.0-7.0); HEMOGLOBIN 8.7 g/dl (14.0-18.0); LYMPHOCYTES # 0.6 10^3/ul (0.8-2.9); LYMPHOCYTES % 8.5 % (15.0-51.0); MEAN CORPUSCULAR HEMOGLOBIN 33.2 pg (29.0-33.0); MEAN CORPUSCULAR HGB CONC 31.1 g/dl (32.0-37.0); MEAN CORPUSCULAR VOLUME 106.9 fl (82.0-101.0); MEAN PLATELET VOLUME 11.3 fl (7.4-10.4); MONOCYTE # 0.7 10^3/ul (0.3-0.9); NEUTROPHIL # 5.3 10^3/ul (1.6-7.5); NEUTROPHILS % 78.9 % (39.0-77.0); PLATELET COUNT 128 10^3/UL (140-415); POSITIVE DIFF @See below; RED BLOOD COUNT 2.62 10^6/ul (4.70-6.10); RED CELL DISTRIBUTION WIDTH 15.9 % (11.5-14.5); WHITE BLOOD COUNT 6.7 10^3/ul (4.8-10.8)
[2017-02-18] MEDS: FUROSEMIDE 20 MG INJ IV SCH (06:38)
[2017-02-18] MEDS: LEVOTHYROXINE 75 MCG TAB PO SCH (06:39)
[2017-02-18] MEDS: PANTOPRAZOLE (EC) 40 MG TAB PO SCH (06:39)
[2017-02-18 06:50] LABS: CALCIUM 8.6 mg/dl (8.4-10.2); CREATININE 1.44 mg/dl (0.61-1.24); POTASSIUM 4.2 mmol/L (3.5-5.1)
[2017-02-18] MEDS: DRONABINOL 2.5 MG CAP PO SCH ×3 (07:30→16:55)
[2017-02-18 07:40] VITALS: BP 110/66; RESP 18
[2017-02-18] MEDS: APIXABAN 5 MG TABLET PO SCH ×3 (09:16→21:00)
[2017-02-18] MEDS: VORICONAZOLE 200 MG TAB PO SCH ×2 (09:17→20:58)
[2017-02-18] MEDS: morphine (ER) 15 MG TAB PO SCH ×2 (09:17→20:59)
[2017-02-18] MEDS: ESCITALOPRAM 10 MG TAB PO SCH (09:17)
[2017-02-18] MEDS: OXYMETAZOLINE 0.05% 15 ML NAS SPRAY NASAL SCH ×2 (09:23→20:58)
--- NOTE | 2017-02-18 11:42 | PN ---
Date/Time of Note Date/Time of Note DATE: 02/18/17 TIME: 11:40 Assessment/Plan VTE Prophylaxis VTE Prophylaxis Intervention: other Lines/Catheters IV Catheter Type (from [facility]): PICC Line Urinary Cath still in place: No Assessment/Plan Chief Complaint/Hosp Course - Problems: Assessment/Plan - Anemia- sp 1 unit PRBC today. H/H- 8.7/28.0, CBC am - Hypotension- 110/66 today - cardio/nephro follows - albumin per nephro - cont to monitor - LIZ, Dr. Irving is following in nephrology consultation. - Post-obstructive pneumonia Dr. Philly perry is following infection disease consultation. Status post treatment with antibiotics. - Advanced non-small cell lung CA, Dr. Scanlon is following in oncology consultation. - Acute respiratory failure secondary to above. is following in pulmonology consultation. - Nonocclusive deep venous thrombosis bilateral upper extremities. Continue Eliquis. - Acute on chronic diastolic congestive heart failure, continue gentle diuresis , continue to monitor electrolytes. - h/o fungal pneumonia, on maintenance voriconazole - CAD, continue aspirin. - Hyperlipidemia, continue statin - Hypothyroidism, continue levothyroxine. Further recommendations based on clinical course. Plan of care discussed with Dr. Lincoln. Subjective 24 Hr Interval Summary Respiratory: shortness of breath Gastrointestinal: no complaints Genitourinary: no complaints Musculoskeletal: no complaints Skin: no complaints Exam/Review of Systems Vital Signs Vitals Vital Signs Date Time Temp Pulse Resp B/P Pulse Ox O2 Delivery O2 Flow Rate FiO2 02/18/17 09:28 Nasal Cannula 4.0 02/18/17 07:40 98.3 93 18 110/66 95 Intake and Output 02/17/17 02/17/17 02/18/17 15:00 23:00 07:00 Intake Total 100 ml 1010 ml 240 ml Output Total 740 ml Balance 100 ml 270 ml 240 ml Exam Constitutional: alert, obese, well developed Respiratory: diminished breath sounds Cardiovascular: nl pulses, regular rate and rhythm Gastrointestinal: soft Musculoskeletal: nl extremities to inspection Extremities: edema Results Result Diagram: 02/18/17 0505 02/18/17 0505 Results 24 hrs Laboratory Tests Test 02/18/17 05:05 White Blood Count 6.7 # Red Blood Count 2.62 L Hemoglobin 8.7 L Hematocrit 28.0 L Mean Corpuscular Volume 106.9 H Mean Corpuscular Hemoglobin 33.2 H Mean Corpuscular Hemoglobin Concent 31.1 L Red Cell Distribution Width 15.9 H Platelet Count 128 L Mean Platelet Volume 11.3 H Neutrophils % 78.9 H Lymphocytes % 8.5 L Monocytes % 11.0 Eosinophils % 0.9 Basophils % 0.4 Nucleated Red Blood Cells % 0.0 Neutrophils # 5.3 Lymphocytes # 0.6 L Monocytes # 0.7 Eosinophils # 0.1 Basophils # 0.0 Nucleated Red Blood Cells # 0.0 Sodium Level 141 Potassium Level 4.2 Chloride Level 97 Carbon Dioxide Level 40 H Anion Gap 8 Blood Urea Nitrogen 18 Creatinine 1.44 H Glucose Level 80 Calcium Level 8.6 Medications Medications Current Medications Atorvastatin Calcium (Lipitor) 20 mg QHS PO Last administered on 02/17/17 21: 31; Admin Dose 20 MG; Start 01/31/17 at 21:00 Escitalopram Oxalate (Lexapro) 10 mg DAILY PO Last administered on 02/18/17 09 :17; Admin Dose 10 MG; Start 02/01/17 at 09:00 Ondansetron HCl (Zofran Inj) 4 mg Q6 PRN IV NAUSEA Last administered on 11:47; Admin Dose 4 MG; Start 01/31/17 at 19:30 Morphine Sulfate (Ms Contin (Er)) 15 mg BID PO Last administered on 02/18/17 09:17; Admin Dose 15 MG; Start 01/31/17 at 23:00 Morphine Sulfate (morphine) 4 mg Q4H PRN IV SEVERE PAIN LEVEL 7-10 Last administered on 02/15/17 22:27; Admin Dose 4 MG; Start 01/31/17 at 23:00 Nitroglycerin (Nitroglycerin (Sl Tab) 0.4 Mg) 1 tab Q5M PRN SL ANGINA; Start at 11:30 Pantoprazole (Protonix Tab) 40 mg DAILY@06 PO Last administered on 02/18/17 06 :39; Admin Dose 40 MG; Start 02/02/17 at 06:00 Voriconazole (Vfend) 200 mg BID PO Last administered on 02/18/17 09:17; Admin Dose 200 MG; Start 02/01/17 at 21:00 Senna (Senokot) 1 tab DAILY PRN PO CONSTIPATION Last administered on 02/03/17 20:36; Admin Dose 1 TAB; Start 02/02/17 at 16:00 Lactulose (Enulose) 20 gm DAILY PRN PO CONSTIPATION; Start 02/02/17 at 16:00 IV Flush (NS 10 ml) 10 ml PRN PRN IV IV PROTOCOL; Start 02/06/17 at 20:00 Oxymetazoline HCl (Afrin [place]) 2 spray BID NASAL Last administered on 09:23; Admin Dose 2 SPRAY; Start 02/07/17 at 15:00 Apixaban (Eliquis) 10 mg BID PO Last administered on 02/18/17 09:16; Admin Dose 10 MG; Start 02/14/17 at 09:00; Stop 02/20/17 at 21:00 Apixaban (Eliquis) 5 mg BID PO ; Start 02/21/17 at 09:00 TRAMAINE ELLSWORTH Feb 18, 2017 11:42
--- NOTE | 2017-02-18 12:13 | CONS ---
Date/Time of Note Date/Time of Note DATE: 02/18/17 TIME: 12:11 Assessment/Plan Assessment/Plan Additional Assessment/Plan Assessment and recommendations; 1. Patient admitted with severe pneumonia involving right lung likely postobstructive in etiology due to extensive metastatic non-small cell lung cancer. 2. Left subclavian and axillary vein thrombosis. 3. Mild CHF. 4. COPD. Continue current treatment. Consultation Date/Type/Reason Admit Date/Time Jan 31, 2017 at 18:59 Initial Consult Date 02/01/17 Type of Consultation: Pulmonary Referring Provider: MARYAM FARMER MD 24 HR Interval Summary Free Text/Dictation Patient's condition slightly improved. Still complains of shortness of breath and hemoptysis. General exam; elderly male, obese, currently in no distress. Awake and alert. Exam/Review of Systems Vital Signs Vitals Vital Signs Date Time Temp Pulse Resp B/P Pulse Ox O2 Delivery O2 Flow Rate FiO2 02/18/17 09:28 Nasal Cannula 4.0 02/18/17 07:40 98.3 93 18 110/66 95 Intake and Output 02/17/17 02/17/17 02/18/17 15:00 23:00 07:00 Intake Total 100 ml 1010 ml 240 ml Output Total 740 ml Balance 100 ml 270 ml 240 ml Exam HEENT exam; supple neck, patient is alopecic. Has fair dentition. No neck masses. Midline trachea. Pharynx is clear. Chest exam; diminished breath sounds right lung. Left lung is clear to auscultation. S1-S2 audible, no murmurs. Regular rhythm. Abdomen exam; soft, no organomegaly. Bowel sounds audible. Protuberant. Nontender. Extremity exam; no peripheral edema. MANAGER PROVIDER RELATIONS exam; no focal deficit. Results Result Diagram: 02/18/17 0505 02/18/17 0505 Results 24 hrs Laboratory Tests Test 02/18/17 05:05 White Blood Count 6.7 # Red Blood Count 2.62 L Hemoglobin 8.7 L Hematocrit 28.0 L Mean Corpuscular Volume 106.9 H Mean Corpuscular Hemoglobin 33.2 H Mean Corpuscular Hemoglobin Concent 31.1 L Red Cell Distribution Width 15.9 H Platelet Count 128 L Mean Platelet Volume 11.3 H Neutrophils % 78.9 H Lymphocytes % 8.5 L Monocytes % 11.0 Eosinophils % 0.9 Basophils % 0.4 Nucleated Red Blood Cells % 0.0 Neutrophils # 5.3 Lymphocytes # 0.6 L Monocytes # 0.7 Eosinophils # 0.1 Basophils # 0.0 Nucleated Red Blood Cells # 0.0 Sodium Level 141 Potassium Level 4.2 Chloride Level 97 Carbon Dioxide Level 40 H Anion Gap 8 Blood Urea Nitrogen 18 Creatinine 1.44 H Glucose Level 80 Calcium Level 8.6 Medications Medications Current Medications Atorvastatin Calcium (Lipitor) 20 mg QHS PO Last administered on 02/17/17 21: 31; Admin Dose 20 MG; Start 01/31/17 at 21:00 Escitalopram Oxalate (Lexapro) 10 mg DAILY PO Last administered on 02/18/17 09 :17; Admin Dose 10 MG; Start 02/01/17 at 09:00 Ondansetron HCl (Zofran Inj) 4 mg Q6 PRN IV NAUSEA Last administered on 11:47; Admin Dose 4 MG; Start 01/31/17 at 19:30 Morphine Sulfate (Ms Contin (Er)) 15 mg BID PO Last administered on 02/18/17 09:17; Admin Dose 15 MG; Start 01/31/17 at 23:00 Morphine Sulfate (morphine) 4 mg Q4H PRN IV SEVERE PAIN LEVEL 7-10 Last administered on 02/15/17 22:27; Admin Dose 4 MG; Start 01/31/17 at 23:00 Nitroglycerin (Nitroglycerin (Sl Tab) 0.4 Mg) 1 tab Q5M PRN SL ANGINA; Start at 11:30 Pantoprazole (Protonix Tab) 40 mg DAILY@06 PO Last administered on 02/18/17 06 :39; Admin Dose 40 MG; Start 02/02/17 at 06:00 Voriconazole (Vfend) 200 mg BID PO Last administered on 02/18/17 09:17; Admin Dose 200 MG; Start 02/01/17 at 21:00 Senna (Senokot) 1 tab DAILY PRN PO CONSTIPATION Last administered on 02/03/17 20:36; Admin Dose 1 TAB; Start 02/02/17 at 16:00 Lactulose (Enulose) 20 gm DAILY PRN PO CONSTIPATION; Start 02/02/17 at 16:00 IV Flush (NS 10 ml) 10 ml PRN PRN IV IV PROTOCOL; Start 02/06/17 at 20:00 Oxymetazoline HCl (Afrin [place]) 2 spray BID NASAL Last administered on 09:23; Admin Dose 2 SPRAY; Start 02/07/17 at 15:00 Apixaban (Eliquis) 10 mg BID PO Last administered on 02/18/17 09:16; Admin Dose 10 MG; Start 02/14/17 at 09:00; Stop 02/20/17 at 21:00 Apixaban (Eliquis) 5 mg BID PO ; Start 02/21/17 at 09:00 ISMA CUTLER Feb 18, 2017 12:13
[2017-02-18 14:18] VITALS: BP 111/63; RESP 18
--- NOTE | 2017-02-18 14:29 | CONS ---
Date/Time of Note Date/Time of Note DATE: 02/18/17 TIME: 14:26 Assessment/Plan Assessment/Plan Additional Assessment/Plan 1. Anasarca- Fluid overload multifactorial s/p Diuresis with IV lasix and IV albumin 2. acute kidney injury 3. post obstructive PNA 4. Advanced non small lung CA 5. acute respiratory failure 6. Right subclavian Deep venous thrombosis 7. acute on chronic diastolic heart failure 8. h/o fungal pneumonia 9. Hyperlipidemia 10. hypothyroidism Plan: continue current care s/p IV albumin with Lasix diureisis- Cr 1.44 today -HCo3 trended up to 44- d/c IV lasix,change to Lasix 40mg PO daily IV abx as per ID and PMD, renally dose all abx Will follow up Monitor Electroltyes and replace as needed. Consultation Date/Type/Reason Admit Date/Time Jan 31, 2017 at 18:59 Initial Consult Date 02/14/17 Type of Consultation: NEPHROLOGY Referring Provider: MARYAM FARMER MD 24 HR Interval Summary Free Text/Dictation Cr 1.44 Exam/Review of Systems Vital Signs Vitals Vital Signs Date Time Temp Pulse Resp B/P Pulse Ox O2 Delivery O2 Flow Rate FiO2 02/18/17 13:24 92 18 Nasal Cannula 4.0 02/18/17 07:40 98.3 110/66 95 Intake and Output 02/17/17 02/17/17 02/18/17 15:00 23:00 07:00 Intake Total 100 ml 1010 ml 240 ml Output Total 740 ml Balance 100 ml 270 ml 240 ml Exam Constitutional: alert Respiratory: clear to auscultation, diminished breath sounds, normal air movement Cardiovascular: nl pulses, regular rate and rhythm Gastrointestinal: non-tender, soft Musculoskeletal: other (gernalised anasarca, 2-3+ edema ) Neurological: EYEGLASS FRAMES INSPECTOR II-XII intact, nl mental status Results Result Diagram: 02/18/17 0505 02/18/17 0505 Results 24 hrs Laboratory Tests Test 02/18/17 05:05 White Blood Count 6.7 # Red Blood Count 2.62 L Hemoglobin 8.7 L Hematocrit 28.0 L Mean Corpuscular Volume 106.9 H Mean Corpuscular Hemoglobin 33.2 H Mean Corpuscular Hemoglobin Concent 31.1 L Red Cell Distribution Width 15.9 H Platelet Count 128 L Mean Platelet Volume 11.3 H Neutrophils % 78.9 H Lymphocytes % 8.5 L Monocytes % 11.0 Eosinophils % 0.9 Basophils % 0.4 Nucleated Red Blood Cells % 0.0 Neutrophils # 5.3 Lymphocytes # 0.6 L Monocytes # 0.7 Eosinophils # 0.1 Basophils # 0.0 Nucleated Red Blood Cells # 0.0 Sodium Level 141 Potassium Level 4.2 Chloride Level 97 Carbon Dioxide Level 40 H Anion Gap 8 Blood Urea Nitrogen 18 Creatinine 1.44 H Glucose Level 80 Calcium Level 8.6 Medications Medications Current Medications Atorvastatin Calcium (Lipitor) 20 mg QHS PO Last administered on 02/17/17 21: 31; Admin Dose 20 MG; Start 01/31/17 at 21:00 Escitalopram Oxalate (Lexapro) 10 mg DAILY PO Last administered on 02/18/17 09 :17; Admin Dose 10 MG; Start 02/01/17 at 09:00 Ondansetron HCl (Zofran Inj) 4 mg Q6 PRN IV NAUSEA Last administered on 11:47; Admin Dose 4 MG; Start 01/31/17 at 19:30 Morphine Sulfate (Ms Contin (Er)) 15 mg BID PO Last administered on 02/18/17 09:17; Admin Dose 15 MG; Start 01/31/17 at 23:00 Morphine Sulfate (morphine) 4 mg Q4H PRN IV SEVERE PAIN LEVEL 7-10 Last administered on 02/15/17 22:27; Admin Dose 4 MG; Start 01/31/17 at 23:00 Nitroglycerin (Nitroglycerin (Sl Tab) 0.4 Mg) 1 tab Q5M PRN SL ANGINA; Start at 11:30 Pantoprazole (Protonix Tab) 40 mg DAILY@06 PO Last administered on 02/18/17 06 :39; Admin Dose 40 MG; Start 02/02/17 at 06:00 Voriconazole (Vfend) 200 mg BID PO Last administered on 02/18/17 09:17; Admin Dose 200 MG; Start 02/01/17 at 21:00 Senna (Senokot) 1 tab DAILY PRN PO CONSTIPATION Last administered on 02/03/17 20:36; Admin Dose 1 TAB; Start 02/02/17 at 16:00 Lactulose (Enulose) 20 gm DAILY PRN PO CONSTIPATION; Start 02/02/17 at 16:00 IV Flush (NS 10 ml) 10 ml PRN PRN IV IV PROTOCOL; Start 02/06/17 at 20:00 Oxymetazoline HCl (Afrin [place]) 2 spray BID NASAL Last administered on 09:23; Admin Dose 2 SPRAY; Start 02/07/17 at 15:00 Apixaban (Eliquis) 10 mg BID PO Last administered on 02/18/17 09:16; Admin Dose 10 MG; Start 02/14/17 at 09:00; Stop 02/20/17 at 21:00 Apixaban (Eliquis) 5 mg BID PO ; Start 02/21/17 at 09:00 MELODY JENSEN MD Feb 18, 2017 14:28
--- NOTE | 2017-02-18 17:51 | CONS ---
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 Aspergillus antibody was >1:64 but aspergillus antigen in serum by EIA was negative during his last admission. 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 given his immunocompromised state Problems: Consultation Date/Type/Reason Admit Date/Time Jan 31, 2017 at 18:59 Initial Consult Date 02/01/17 Type of Consultation: id Referring Provider: MARYAM FARMER MD Exam/Review of Systems Vital Signs Vitals Vital Signs Date Time Temp Pulse Resp B/P Pulse Ox O2 Delivery O2 Flow Rate FiO2 02/18/17 14:18 98.5 94 18 111/63 96 02/18/17 13:24 Nasal Cannula 4.0 Intake and Output 02/17/17 02/17/17 02/18/17 15:00 23:00 07:00 Intake Total 100 ml 1010 ml 240 ml Output Total 740 ml Balance 100 ml 270 ml 240 ml Results Result Diagram: 02/18/17 0505 02/18/17 0505 Results 24 hrs Laboratory Tests Test 02/18/17 05:05 White Blood Count 6.7 # Red Blood Count 2.62 L Hemoglobin 8.7 L Hematocrit 28.0 L Mean Corpuscular Volume 106.9 H Mean Corpuscular Hemoglobin 33.2 H Mean Corpuscular Hemoglobin Concent 31.1 L Red Cell Distribution Width 15.9 H Platelet Count 128 L Mean Platelet Volume 11.3 H Neutrophils % 78.9 H Lymphocytes % 8.5 L Monocytes % 11.0 Eosinophils % 0.9 Basophils % 0.4 Nucleated Red Blood Cells % 0.0 Neutrophils # 5.3 Lymphocytes # 0.6 L Monocytes # 0.7 Eosinophils # 0.1 Basophils # 0.0 Nucleated Red Blood Cells # 0.0 Sodium Level 141 Potassium Level 4.2 Chloride Level 97 Carbon Dioxide Level 40 H Anion Gap 8 Blood Urea Nitrogen 18 Creatinine 1.44 H Glucose Level 80 Calcium Level 8.6 Medications Medications Current Medications Atorvastatin Calcium (Lipitor) 20 mg QHS PO Last administered on 02/17/17 21: 31; Admin Dose 20 MG; Start 01/31/17 at 21:00 Escitalopram Oxalate (Lexapro) 10 mg DAILY PO Last administered on 02/18/17 09 :17; Admin Dose 10 MG; Start 02/01/17 at 09:00 Ondansetron HCl (Zofran Inj) 4 mg Q6 PRN IV NAUSEA Last administered on 11:47; Admin Dose 4 MG; Start 01/31/17 at 19:30 Morphine Sulfate (Ms Contin (Er)) 15 mg BID PO Last administered on 02/18/17 09:17; Admin Dose 15 MG; Start 01/31/17 at 23:00 Morphine Sulfate (morphine) 4 mg Q4H PRN IV SEVERE PAIN LEVEL 7-10 Last administered on 02/15/17 22:27; Admin Dose 4 MG; Start 01/31/17 at 23:00 Nitroglycerin (Nitroglycerin (Sl Tab) 0.4 Mg) 1 tab Q5M PRN SL ANGINA; Start at 11:30 Pantoprazole (Protonix Tab) 40 mg DAILY@06 PO Last administered on 02/18/17 06 :39; Admin Dose 40 MG; Start 02/02/17 at 06:00 Voriconazole (Vfend) 200 mg BID PO Last administered on 02/18/17 09:17; Admin Dose 200 MG; Start 02/01/17 at 21:00 Senna (Senokot) 1 tab DAILY PRN PO CONSTIPATION Last administered on 02/03/17 20:36; Admin Dose 1 TAB; Start 02/02/17 at 16:00 Lactulose (Enulose) 20 gm DAILY PRN PO CONSTIPATION; Start 02/02/17 at 16:00 IV Flush (NS 10 ml) 10 ml PRN PRN IV IV PROTOCOL; Start 02/06/17 at 20:00 Oxymetazoline HCl (Afrin [place]) 2 spray BID NASAL Last administered on 09:23; Admin Dose 2 SPRAY; Start 02/07/17 at 15:00 Apixaban (Eliquis) 10 mg BID PO Last administered on 02/18/17 09:16; Admin Dose 10 MG; Start 02/14/17 at 09:00; Stop 02/20/17 at 21:00 Apixaban (Eliquis) 5 mg BID PO ; Start 02/21/17 at 09:00 Furosemide (Lasix) 40 mg DAILY PO ; Start 02/19/17 at 09:00 DELIO DIALLO MD Feb 18, 2017 17:51
[2017-02-18 20:46] VITALS: BP 90/51; RESP 18
[2017-02-18] MEDS: ATORVASTATIN 20 MG TAB PO SCH (20:58)
[2017-02-19] VITALS (9 sets, daily range): BP systolic 99–174; BP diastolic 60–81; PULSE 86–110; RESP 18–27
--- NOTE | 2017-02-19 00:50 | PN ---
Date/Time of Note Date/Time of Note DATE: 02/19/17 TIME: 00:39 Assessment/Plan VTE Prophylaxis VTE Prophylaxis Intervention: other (eliquis) Lines/Catheters IV Catheter Type (from Nrsg): PICC Line Urinary Cath still in place: No Subjective 24 Hr Interval Summary Free Text/Dictation ate/Time of Note Date/Time of Note DATE: 02/18/17 TIME: 23:48 Assessment/Plan VTE Prophylaxis VTE Prophylaxis Intervention: other (eliquis) Lines/Catheters IV Catheter Type (from Nrsg): PICC Line Urinary Cath still in place: No Subjective 24 Hr Interval Summary Free Text/Dictation Consultation Date/Time of Note Date/Time of Note DATE: 02/18/17 TIME: 23:33 Assessment/Plan Assessment/Plan Chief Complaint/Hosp Course IMPRESSION: 1. Chest pain likely due to lung cancer, undergoing chemotherapy, likely secondary to lung cancer.- negative trop x3 2. Abnormal electrocardiogram with nonspecific ST and T-wave abnormalities, assess for acute coronary syndrome. 3. Bradycardia, (transient) while on beta matthew. 4. Hypotension-improved 5. Shortness of [id number] PNA 6. Lung cancer with ongoing chemotherapy. 7. Leukocytosis. 8. Anemia. 9. Thrombocytopenia-stable Recc: -Tel -Continue asa as tolerated -Continue abx;'s and f/u cx data -Continue statin -? necessity of Bronch -Continue abx's and f/u cx data -pulmonary toliet -Follow BP closely -Continue lasix diuresis and follow volume status closely -Agree with d/c IVF Problems: Consultation Date/Type/Reason Admit Date/Time Jan 31, 2017 at 18:59 Initial Consult Date 02/01/17 Type of Consultation: cardiology Reason for Consultation CHF Referring Provider: MARYAM FARMER MD Exam/Review of Systems Vital Signs Vitals Vital Signs Date Time Temp Pulse Resp B/P Pulse Ox O2 Delivery O2 Flow Rate FiO2 02/15/17 11:27 Nasal Cannula 4.0 02/15/17 08:54 91 20 96 02/15/17 08:00 97.2 108/68 02/14/17 03:40 40 Intake and Output 02/14/17 02/14/17 02/15/17 15:00 23:00 07:00 Intake Total 1120 ml 580 ml Balance 1120 ml 580 ml Exam Review of Systems: CONSTITUTIONAL: No fevers, chills. PULMONARY: DYSPNEA WITH WHEEZING CARDIOVASCULAR: No chest pain/palpitations GASTROINTESTINAL: No nausea/vomiting. GENITOURINARY: No hematuria/dysuria. MUSCULOSKELETAL: No myagias/arthalgias. PSYCHIATRIC: The patient denies depression. NEUROLOGIC: marked generalized weakness with bilateral lower extremities numbness Constitutional: alert, oriented Psych: no complaints Head: normocephalic ENMT: mucosa pink and moist Neck: jvd (9-10 cm water), supple Respiratory: other (diffuse rhoncherous sounds) Cardiovascular: regular rate and rhythm Gastrointestinal: non-tender, soft Musculoskeletal: muscle tone (normal) Extremities: pitting pedal edema (bilateral upper and lower extremity) Neurological: lethargic less lethargic tonight Results Result Diagram: 02/15/1716 02/15/17 0516 Results 24 hrs Laboratory Tests Test 02/15/17 05:16 White Blood Count 6.8 # Red Blood Count 2.62 L Hemoglobin 8.5 L Hematocrit 27.6 L Mean Corpuscular Volume 105.3 H Mean Corpuscular Hemoglobin 32.4 Mean Corpuscular Hemoglobin Concent 30.8 L Red Cell Distribution Width 15.2 H Platelet Count 129 L Mean Platelet Volume 10.5 H Neutrophils % 79.8 H Lymphocytes % 8.1 L Monocytes % 10.5 Eosinophils % 0.9 Basophils % 0.3 Nucleated Red Blood Cells % 0.0 Neutrophils # 5.4 Lymphocytes # 0.6 L Monocytes # 0.7 Eosinophils # 0.1 Basophils # 0.0 Nucleated Red Blood Cells # 0.0 Sodium Level 139 Potassium Level 4.1 Chloride Level 101 Carbon Dioxide Level 33 H Anion Gap 9 Blood Urea Nitrogen 20 Creatinine 1.46 H Glucose Level 84 Calcium Level 8.5 Medications Medications Current Medications Atorvastatin Calcium (Lipitor) 20 mg QHS PO Last administered on 02/14/17 21: 12; Admin Dose 20 MG; Start 01/31/17 at 21:00 Escitalopram Oxalate (Lexapro) 10 mg DAILY PO Last administered on 02/15/17 08 :40; Admin Dose 10 MG; Start 02/01/17 at 09:00 Ondansetron HCl (Zofran Inj) 4 mg Q6 PRN IV NAUSEA Last administered on 06:12; Admin Dose 4 MG; Start 01/31/17 at 19:30 Morphine Sulfate (Ms Contin (Er)) 15 mg BID PO Last administered on 02/15/17 08:40; Admin Dose 15 MG; Start 01/31/17 at 23:00 Morphine Sulfate (morphine) 4 mg Q4H PRN IV SEVERE PAIN LEVEL 7-10 Last administered on 02/15/17 10:11; Admin Dose 4 MG; Start 01/31/17 at 23:00 Nitroglycerin (Nitroglycerin (Sl Tab) 0.4 Mg) 1 tab Q5M PRN SL ANGINA; Start at 11:30 Pantoprazole (Protonix Tab) 40 mg DAILY@06 PO Last administered on 02/15/17 05 :36; Admin Dose 40 MG; Start 02/02/17 at 06:00 Voriconazole (Vfend) 200 mg BID PO Last administered on 02/15/17 08:40; Admin Dose 200 MG; Start 02/01/17 at 21:00 Senna (Senokot) 1 tab DAILY PRN PO CONSTIPATION Last administered on 02/03/17 20:36; Admin Dose 1 TAB; Start 02/02/17 at 16:00 Lactulose (Enulose) 20 gm DAILY PRN PO CONSTIPATION; Start 02/02/17 at 16:00 IV Flush (NS 10 ml) 10 ml PRN PRN IV IV PROTOCOL; Start 02/06/17 at 20:00 Oxymetazoline HCl (Afrin [place]) 2 spray BID NASAL Last administered on 08:41; Admin Dose 2 SPRAY; Start 02/07/17 at 15:00 Apixaban (Eliquis) 10 mg BID PO Last administered on 02/15/17 08:40; Admin Dose 10 MG; Start 02/14/17 at 09:00; Stop 02/20/17 at 21:00 Apixaban 5 mg 5 mg BID PO ; Start 02/21/17 Arnaldo Elizabeth MD Exam/Review of Systems Vital Signs Vitals Vital Signs Date Time Temp Pulse Resp B/P Pulse Ox O2 Delivery O2 Flow Rate FiO2 02/18/17 20:39 97.7.0 96 18 90/51 93 02/17/17 19:50 Nasal Cannula 4.0 02/14/17 03:40 40 Intake and Output 02/16/17 02/16/1702/17/17 15:00 23:00 07:00 Intake Total 100 ml 1080 ml 240 ml Output Total 800 ml Balance 100 ml 280 ml 240 ml Results Result Diagram: 02/18/1717 02/18/17 0517 Results 24 hrs Laboratory Tests Test 02/17/17 05:17 White Blood Count 5.1 Red Blood Count 2.45 L Hemoglobin 7.8 L Hematocrit 26.7 L Mean Corpuscular Volume 109.0 H Mean Corpuscular Hemoglobin 31.8 Mean Corpuscular Hemoglobin Concent 29.2 L Red Cell Distribution Width 15.1 H Platelet Count 117 L Mean Platelet Volume 11.3 H Neutrophils % 74.8 Lymphocytes % 11.4 L Monocytes % 12.2 H Eosinophils % 1.0 Basophils % 0.4 Nucleated Red Blood Cells % 0.0 Neutrophils # 3.8 Lymphocytes # 0.6 L Monocytes # 0.6 Eosinophils # 0.1 Basophils # 0.0 Nucleated Red Blood Cells # 0.0 Sodium Level 141 Potassium Level 4.4 Chloride Level 100 Carbon Dioxide Level 34 H Anion Gap 11 Blood Urea Nitrogen 18 Creatinine 1.44 H Glucose Level 90 Calcium Level 8.4 Medications Medications Current Medications Atorvastatin Calcium (Lipitor) 20 mg QHS PO Last administered on 02/17/17 21: 31; Admin Dose 20 MG; Start 01/31/17 at 21:00 Escitalopram Oxalate (Lexapro) 10 mg DAILY PO Last administered on 02/17/17 07 :57; Admin Dose 10 MG; Start 02/01/17 at 09:00 Ondansetron HCl (Zofran Inj) 4 mg Q6 PRN IV NAUSEA Last administered on 11:47; Admin Dose 4 MG; Start 01/31/17 at 19:30 Morphine Sulfate (Ms Contin (Er)) 15 mg BID PO Last administered on 02/17/17 21:31; Admin Dose 15 MG; Start 01/31/17 at 23:00 Morphine Sulfate (morphine) 4 mg Q4H PRN IV SEVERE PAIN LEVEL 7-10 Last administered on 02/15/17 22:27; Admin Dose 4 MG; Start 01/31/17 at 23:00 Nitroglycerin (Nitroglycerin (Sl Tab) 0.4 Mg) 1 tab Q5M PRN SL ANGINA; Start at 11:30 Pantoprazole (Protonix Tab) 40 mg DAILY@06 PO Last administered on 02/17/17 06 :11; Admin Dose 40 MG; Start 02/02/17 at 06:00 Voriconazole (Vfend) 200 mg BID PO Last administered on 02/17/17 21:31; Admin Dose 200 MG; Start 02/01/17 at 21:00 Senna (Senokot) 1 tab DAILY PRN PO CONSTIPATION Last administered on 02/03/17 20:36; Admin Dose 1 TAB; Start 02/02/17 at 16:00 Lactulose (Enulose) 20 gm DAILY PRN PO CONSTIPATION; Start 02/02/17 at 16:00 IV Flush (NS 10 ml) 10 ml PRN PRN IV IV PROTOCOL; Start 02/06/17 at 20:00 Oxymetazoline HCl (Afrin [place]) 2 spray BID NASAL Last administered on 23:31; Admin Dose 2 SPRAY; Start 02/07/17 at 15:00 Apixaban (Eliquis) 10 mg BID PO Last administered on 02/17/17 21:30; Admin Dose 10 MG; Start 02/14/17 at 09:00; Stop 02/20/17 at 21:00 Apixaban (Eliquis) 5 mg BID PO ; Start 02/21/17 at 09:00 ARNALDO ELIZABETH MD Feb 18, 2017 23:57 <Electronically signed by ARNALDO ELIZABETH MD> 02/18/17 2357 Exam/Review of Systems Vital Signs Vitals Vital Signs Date Time Temp Pulse Resp B/P Pulse Ox O2 Delivery O2 Flow Rate FiO2 02/18/17 20:46 97.9 96 18 90/51 93 02/18/17 20:27 4.0 02/18/17 20:27 Nasal Cannula Intake and Output 02/18/17 02/18/17 02/19/17 15:00 23:00 07:00 Intake Total 560 ml Balance 560 ml Results Result Diagram: 02/18/17 0505 02/18/17 0505 Results 24 hrs Laboratory Tests Test 02/18/17 05:05 White Blood Count 6.7 # Red Blood Count 2.62 L Hemoglobin 8.7 L Hematocrit 28.0 L Mean Corpuscular Volume 106.9 H Mean Corpuscular Hemoglobin 33.2 H Mean Corpuscular Hemoglobin Concent 31.1 L Red Cell Distribution Width 15.9 H Platelet Count 128 L Mean Platelet Volume 11.3 H Neutrophils % 78.9 H Lymphocytes % 8.5 L Monocytes % 11.0 Eosinophils % 0.9 Basophils % 0.4 Nucleated Red Blood Cells % 0.0 Neutrophils # 5.3 Lymphocytes # 0.6 L Monocytes # 0.7 Eosinophils # 0.1 Basophils # 0.0 Nucleated Red Blood Cells # 0.0 Sodium Level 141 Potassium Level 4.2 Chloride Level 97 Carbon Dioxide Level 40 H Anion Gap 8 Blood Urea Nitrogen 18 Creatinine 1.44 H Glucose Level 80 Calcium Level 8.6 Medications Medications Current Medications Atorvastatin Calcium (Lipitor) 20 mg QHS PO Last administered on 02/18/17 20: 58; Admin Dose 20 MG; Start 01/31/17 at 21:00 Escitalopram Oxalate (Lexapro) 10 mg DAILY PO Last administered on 02/18/17 09 :17; Admin Dose 10 MG; Start 02/01/17 at 09:00 Ondansetron HCl (Zofran Inj) 4 mg Q6 PRN IV NAUSEA Last administered on 11:47; Admin Dose 4 MG; Start 01/31/17 at 19:30 Morphine Sulfate (Ms Contin (Er)) 15 mg BID PO Last administered on 02/18/17 20:59; Admin Dose 15 MG; Start 01/31/17 at 23:00 Morphine Sulfate (morphine) 4 mg Q4H PRN IV SEVERE PAIN LEVEL 7-10 Last administered on 02/15/17 22:27; Admin Dose 4 MG; Start 01/31/17 at 23:00 Nitroglycerin (Nitroglycerin (Sl Tab) 0.4 Mg) 1 tab Q5M PRN SL ANGINA; Start at 11:30 Pantoprazole (Protonix Tab) 40 mg DAILY@06 PO Last administered on 02/18/17 06 :39; Admin Dose 40 MG; Start 02/02/17 at 06:00 Voriconazole (Vfend) 200 mg BID PO Last administered on 02/18/17 20:58; Admin Dose 200 MG; Start 02/01/17 at 21:00 Senna (Senokot) 1 tab DAILY PRN PO CONSTIPATION Last administered on 02/03/17 20:36; Admin Dose 1 TAB; Start 02/02/17 at 16:00 Lactulose (Enulose) 20 gm DAILY PRN PO CONSTIPATION; Start 02/02/17 at 16:00 IV Flush (NS 10 ml) 10 ml PRN PRN IV IV PROTOCOL; Start 02/06/17 at 20:00 Oxymetazoline HCl (Afrin [place]) 2 spray BID NASAL Last administered on 20:58; Admin Dose 2 SPRAY; Start 02/07/17 at 15:00 Apixaban (Eliquis) 10 mg BID PO Last administered on 02/18/17 09:16; Admin Dose 10 MG; Start 02/14/17 at 09:00; Stop 02/20/17 at 21:00 Apixaban (Eliquis) 5 mg BID PO ; Start 02/21/17 at 09:00 Furosemide (Lasix) 40 mg DAILY PO ; Start 02/19/17 at 09:00 ARNALDO ELIZABETH MD Feb 19, 2017 00:50
[2017-02-19] MEDS: LEVALBUTEROL (NEB) 0.63 MG/3 ML AMP HHN SCH ×4 (01:01→19:18)
[2017-02-19 05:50] LABS: BASOPHILS % 0.5 % (0.0-2.0); EOSINOPHILS # 0.1 10^3/ul (0.0-0.5); EOSINOPHILS % 1.8 % (0.0-7.0); HEMATOCRIT 27.9 % (42.0-52.0); HEMOGLOBIN 8.6 g/dl (14.0-18.0); LYMPHOCYTES # 0.6 10^3/ul (0.8-2.9); LYMPHOCYTES % 11.2 % (15.0-51.0); MEAN CORPUSCULAR HEMOGLOBIN 32.8 pg (29.0-33.0); MEAN CORPUSCULAR HGB CONC 30.8 g/dl (32.0-37.0); MEAN CORPUSCULAR VOLUME 106.5 fl (82.0-101.0); MEAN PLATELET VOLUME 11.2 fl (7.4-10.4); MONOCYTE # 0.7 10^3/ul (0.3-0.9); NEUTROPHIL # 4.1 10^3/ul (1.6-7.5); NEUTROPHILS % 74.3 % (39.0-77.0); PLATELET COUNT 129 10^3/UL (140-415); RED BLOOD COUNT 2.62 10^6/ul (4.70-6.10); RED CELL DISTRIBUTION WIDTH 15.4 % (11.5-14.5); WHITE BLOOD COUNT 5.5 10^3/ul (4.8-10.8)
[2017-02-19] MEDS: PANTOPRAZOLE (EC) 40 MG TAB PO SCH (06:04)
[2017-02-19] MEDS: LEVOTHYROXINE 75 MCG TAB PO SCH (06:05)
[2017-02-19 06:21] LABS: CALCIUM 8.7 mg/dl (8.4-10.2); CREATININE 1.36 mg/dl (0.61-1.24)
[2017-02-19] MEDS: APIXABAN 5 MG TABLET PO SCH ×2 (08:27→21:30)
[2017-02-19] MEDS: ESCITALOPRAM 10 MG TAB PO SCH (08:27)
[2017-02-19] MEDS: DRONABINOL 2.5 MG CAP PO SCH ×3 (08:27→17:45)
[2017-02-19] MEDS: VORICONAZOLE 200 MG TAB PO SCH ×2 (08:27→21:30)
[2017-02-19] MEDS: OXYMETAZOLINE 0.05% 15 ML NAS SPRAY NASAL SCH ×2 (08:28→21:30)
[2017-02-19] MEDS: morphine (ER) 15 MG TAB PO SCH ×2 (08:28→21:30)
[2017-02-19] MEDS: FUROSEMIDE 40 MG TAB PO SCH (08:33)
--- NOTE | 2017-02-19 10:48 | CONS ---
Date/Time of Note Date/Time of Note DATE: 02/19/17 TIME: 10:47 Assessment/Plan Assessment/Plan Chief Complaint/Hosp Course - h/o sepsis due to recurrent pneumonia, and to a lessor degree due to paronychia. 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 Aspergillus antibody was >1:64 but aspergillus antigen in serum by EIA was negative during his last admission. - h/o DVT of RUE - b/l knee pain due to DJD - h/o post-obstructive pneumonia - h/o HTN, CAD, hyperlipidemia - h/o paroxysmal A fib - h/o DVT in LUE - h/o hypothyroidism with elevated TSH level - HIV negative in 2013 - Nonocclusive thrombus around the PICC catheter within the left brachial vein, axillary vein and subclavian vein per doppler 02/13/2017 recommendations: - ordered abdominal XR to r/o ileus - panculture if temp >100.4F - continue voriconazole for chronic suppression of aspergillus given his immunocompromised state; monitor LFTs weekly - management d/w Pt Problems: Consultation Date/Type/Reason Admit Date/Time Jan 31, 2017 at 18:59 Initial Consult Date 02/14/17 Type of Consultation: ID Referring Provider: MARYAM FARMER MD 24 HR Interval Summary Constitutional: other (weak) Detailed Summary Eyes: no complaints ENT: no complaints Respiratory: cough, other (chest tightness), shortness of breath, sputum, No pleuritic pain Cardiovascular: no complaints Gastrointestinal: nausea, other ("indigestion"), No diarrhea, No pain, No vomiting Musculoskeletal: no complaints Skin: no complaints Neurologic: no complaints Endocrine: no complaints Exam/Review of Systems Vital Signs Vitals Vital Signs Date Time Temp Pulse Resp B/P Pulse Ox O2 Delivery O2 Flow Rate FiO2 02/19/17 09:30 Nasal Cannula 4.0 02/19/17 08:39 123/62 02/19/17 08:22 98.1 87 20 93 Intake and Output 02/18/17 02/18/17 02/19/17 15:00 23:00 07:00 Intake Total 560 ml 120 ml Output Total 300 ml Balance 560 ml -180 ml Exam Constitutional: frail, obese Psych: no complaints Head: other (alopecia) Eyes: nl conjunctiva ENMT: nl external ears & nose, nl nasal mucosa & septum Neck: supple Respiratory: crackles/rales, diminished breath sounds Cardiovascular: nl pulses, regular rate and rhythm Gastrointestinal: non-tender, soft, No distended Musculoskeletal: nl extremities to inspection Extremities: normal pulses 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 Skin: other (L 2nd figer tip has crust without erythema, non-TTP) Results Result Diagram: 02/19/17 0433 02/19/17 0433 Results 24 hrs Laboratory Tests Test 02/19/17 04:33 02/19/17 05:27 White Blood Count 5.5 Red Blood Count 2.62 L Hemoglobin 8.6 L Hematocrit 27.9 L Mean Corpuscular Volume 106.5 H Mean Corpuscular Hemoglobin 32.8 Mean Corpuscular Hemoglobin Concent 30.8 L Red Cell Distribution Width 15.4 H Platelet Count 129 L Mean Platelet Volume 11.2 H Neutrophils % 74.3 Lymphocytes % 11.2 L Monocytes % 12.0 H Eosinophils % 1.8 Basophils % 0.5 Nucleated Red Blood Cells % 0.0 Neutrophils # 4.1 Lymphocytes # 0.6 L Monocytes # 0.7 Eosinophils # 0.1 Basophils # 0.0 Nucleated Red Blood Cells # 0.0 Sodium Level 139 Potassium Level 4.0 Chloride Level 97 Carbon Dioxide Level 42 *H Anion Gap 4 L Blood Urea Nitrogen 19 Creatinine 1.36 H Glucose Level 77 Calcium Level 8.7 Lab Scanned Report BLOOD TRANSFUSION Medications Medications Current Medications Atorvastatin Calcium (Lipitor) 20 mg QHS PO Last administered on 02/18/17 20: 58; Admin Dose 20 MG; Start 01/31/17 at 21:00 Escitalopram Oxalate (Lexapro) 10 mg DAILY PO Last administered on 02/19/17 08 :27; Admin Dose 10 MG; Start 02/01/17 at 09:00 Ondansetron HCl (Zofran Inj) 4 mg Q6 PRN IV NAUSEA Last administered on 11:47; Admin Dose 4 MG; Start 01/31/17 at 19:30 Morphine Sulfate (Ms Contin (Er)) 15 mg BID PO Last administered on 02/19/17 08:28; Admin Dose 15 MG; Start 01/31/17 at 23:00 Morphine Sulfate (morphine) 4 mg Q4H PRN IV SEVERE PAIN LEVEL 7-10 Last administered on 02/15/17 22:27; Admin Dose 4 MG; Start 01/31/17 at 23:00 Nitroglycerin (Nitroglycerin (Sl Tab) 0.4 Mg) 1 tab Q5M PRN SL ANGINA; Start at 11:30 Pantoprazole (Protonix Tab) 40 mg DAILY@06 PO Last administered on 02/19/17 06 :04; Admin Dose 40 MG; Start 02/02/17 at 06:00 Voriconazole (Vfend) 200 mg BID PO Last administered on 02/19/17 08:27; Admin Dose 200 MG; Start 02/01/17 at 21:00 Senna (Senokot) 1 tab DAILY PRN PO CONSTIPATION Last administered on 02/03/17 20:36; Admin Dose 1 TAB; Start 02/02/17 at 16:00 Lactulose (Enulose) 20 gm DAILY PRN PO CONSTIPATION; Start 02/02/17 at 16:00 IV Flush (NS 10 ml) 10 ml PRN PRN IV IV PROTOCOL; Start 02/06/17 at 20:00 Oxymetazoline HCl (Afrin [place]) 2 spray BID NASAL Last administered on 08:28; Admin Dose 2 SPRAY; Start 02/07/17 at 15:00 Apixaban (Eliquis) 10 mg BID PO Last administered on 02/19/17 08:27; Admin Dose 10 MG; Start 02/14/17 at 09:00; Stop 02/20/17 at 21:00 Apixaban (Eliquis) 5 mg BID PO ; Start 02/21/17 at 09:00 Furosemide (Lasix) 40 mg DAILY PO Last administered on 02/19/17 08:33; Admin Dose 40 MG; Start 02/19/17 at 09:00 LUKE CAAL M.D. Feb 19, 2017 10:48
--- NOTE | 2017-02-19 12:18 | RADRPT ---
PROCEDURE: XR Abdomen. CLINICAL INDICATION: Abdominal pain and distension. TECHNIQUE: AP supine abdomen x-ray. COMPARISON: Chest x-ray dated 02/14/2017. FINDINGS: There is opacification of the visualized portion of the right hemithorax. Surgical clips are present in the right upper quadrant of the abdomen. There is a dilated loop of small bowel in the left mid abdomen. The bowel gas pattern is otherwise n ormal. There are no abnormal calcifications overlying the urinary tracts. There are degenerative changes of the spine. IMPRESSION: 1. Opacification of the visualized portion of the right hemithorax. 2. Prior right upper quadrant abdomen surgery. 3. Dilated loop of small bowel in the left mid abdomen which may indicate obstruction or ileus. Fol low-up advised. 4. Degenerative changes of the spine. RPTAT: QQ .Los Stringer MD, MD Date Time Electronically viewed and signed by .Los Stringer MD, MD on 02/19/2017 12:17 .R/
--- NOTE | 2017-02-19 14:25 | PN ---
Date/Time of Note Date/Time of Note DATE: 02/19/17 TIME: 14:19 Assessment/Plan VTE Prophylaxis VTE Prophylaxis Intervention: SCD's Lines/Catheters IV C[facility]ter Type (from [facility] PICC Line Central line still needed: Yes Urinary Cath still in place: No Assessment/Plan Chief Complaint/Hosp Course Patient refused BiPAP overnight, planes of occasional shortness of breath, or lice edema and anasarca. Patient has a poor appetite however denies any nausea and vomiting. Assessment/Plan - LIZ, Dr. Irving is following in nephrology consultation. - Post-obstructive pneumonia Dr. Philly perry is following infection disease consultation. Status post treatment with antibiotics. - Advanced non-small cell lung CA, Dr. Scanlon is following in oncology consultation. - Acute respiratory failure secondary to above. is following in pulmonology consultation. - Nonocclusive deep venous thrombosis bilateral upper extremities. Continue Eliquis. - Acute on chronic diastolic congestive heart failure, continue gentle diuresis , continue to monitor electrolytes. - h/o fungal pneumonia, on maintenance voriconazole - CAD, continue aspirin. - Hyperlipidemia, continue statin - Hypothyroidism, continue levothyroxine. Further recommendations based on clinical course. Plan of care discussed with Dr. Lincoln. Problems: Exam/Review of Systems Vital Signs Vitals Vital Signs Date Time Temp Pulse Resp B/P Pulse Ox O2 Delivery O2 Flow Rate FiO2 02/19/17 11:45 4.0 02/19/17 09:30 Nasal Cannula 02/19/17 08:39 123/62 02/19/17 08:30 80 20 94 36 02/19/17 08:22 98.1 Intake and Output 02/18/17 02/18/17 02/19/17 15:00 23:00 07:00 Intake Total 560 ml 120 ml Output Total 300 ml Balance 560 ml -180 ml Exam Constitutional: alert Neck: supple Respiratory: diminished breath sounds Cardiovascular: nl pulses Gastrointestinal: non-tender, soft Extremities: edema Results Result Diagram: 02/19/17 0433 02/19/17 0433 Results 24 hrs Laboratory Tests Test 02/19/17 04:33 02/19/17 05:27 White Blood Count 5.5 Red Blood Count 2.62 L Hemoglobin 8.6 L Hematocrit 27.9 L Mean Corpuscular Volume 106.5 H Mean Corpuscular Hemoglobin 32.8 Mean Corpuscular Hemoglobin Concent 30.8 L Red Cell Distribution Width 15.4 H Platelet Count 129 L Mean Platelet Volume 11.2 H Neutrophils % 74.3 Lymphocytes % 11.2 L Monocytes % 12.0 H Eosinophils % 1.8 Basophils % 0.5 Nucleated Red Blood Cells % 0.0 Neutrophils # 4.1 Lymphocytes # 0.6 L Monocytes # 0.7 Eosinophils # 0.1 Basophils # 0.0 Nucleated Red Blood Cells # 0.0 Sodium Level 139 Potassium Level 4.0 Chloride Level 97 Carbon Dioxide Level 42 *H Anion Gap 4 L Blood Urea Nitrogen 19 Creatinine 1.36 H Glucose Level 77 Calcium Level 8.7 Lab Scanned Report BLOOD TRANSFUSION Medications Medications Current Medications Atorvastatin Calcium (Lipitor) 20 mg QHS PO Last administered on 02/18/17 20: 58; Admin Dose 20 MG; Start 01/31/17 at 21:00 Escitalopram Oxalate (Lexapro) 10 mg DAILY PO Last administered on 02/19/17 08 :27; Admin Dose 10 MG; Start 02/01/17 at 09:00 Ondansetron HCl (Zofran Inj) 4 mg Q6 PRN IV NAUSEA Last administered on 11:47; Admin Dose 4 MG; Start 01/31/17 at 19:30 Morphine Sulfate (Ms Contin (Er)) 15 mg BID PO Last administered on 02/19/17 08:28; Admin Dose 15 MG; Start 01/31/17 at 23:00 Morphine Sulfate (morphine) 4 mg Q4H PRN IV SEVERE PAIN LEVEL 7-10 Last administered on 02/15/17 22:27; Admin Dose 4 MG; Start 01/31/17 at 23:00 Nitroglycerin (Nitroglycerin (Sl Tab) 0.4 Mg) 1 tab Q5M PRN SL ANGINA; Start at 11:30 Pantoprazole (Protonix Tab) 40 mg DAILY@06 PO Last administered on 02/19/17 06 :04; Admin Dose 40 MG; Start 02/02/17 at 06:00 Voriconazole (Vfend) 200 mg BID PO Last administered on 02/19/17 08:27; Admin Dose 200 MG; Start 02/01/17 at 21:00 Senna (Senokot) 1 tab DAILY PRN PO CONSTIPATION Last administered on 02/03/17 20:36; Admin Dose 1 TAB; Start 02/02/17 at 16:00 Lactulose (Enulose) 20 gm DAILY PRN PO CONSTIPATION; Start 02/02/17 at 16:00 IV Flush (NS 10 ml) 10 ml PRN PRN IV IV PROTOCOL; Start 02/06/17 at 20:00 Oxymetazoline HCl (Afrin [place]) 2 spray BID NASAL Last administered on 08:28; Admin Dose 2 SPRAY; Start 02/07/17 at 15:00 Apixaban (Eliquis) 10 mg BID PO Last administered on 02/19/17 08:27; Admin Dose 10 MG; Start 02/14/17 at 09:00; Stop 02/20/17 at 21:00 Apixaban (Eliquis) 5 mg BID PO ; Start 02/21/17 at 09:00 Furosemide (Lasix) 40 mg DAILY PO Last administered on 02/19/17 08:33; Admin Dose 40 MG; Start 02/19/17 at 09:00 LUBA EARLY Feb 19, 2017 14:25
--- NOTE | 2017-02-19 18:42 | CONS ---
Date/Time of Note Date/Time of Note DATE: 02/19/17 TIME: 18:41 Assessment/Plan Assessment/Plan Additional Assessment/Plan 1. Anasarca- Fluid overload multifactorial s/p Diuresis with IV lasix and IV albumin 2. acute kidney injury 3. post obstructive PNA 4. Advanced non small lung CA 5. acute respiratory failure 6. Right subclavian Deep venous thrombosis 7. acute on chronic diastolic heart failure 8. h/o fungal pneumonia 9. Hyperlipidemia 10. hypothyroidism Plan: continue current care s/p IV albumin with Lasix diureisis- Cr 1.36 today -HCo3 trended up to 44 yesterday, pt changed to PO lasix, today HCo3 42, will monitor HCO3, if continues to remain elevated then we will give Diamox IV abx as per ID and PMD, renally dose all abx Will follow up Monitor Electroltyes and replace as needed. Consultation Date/Type/Reason Admit Date/Time Jan 31, 2017 at 18:59 Initial Consult Date 02/14/17 Type of Consultation: NEPHROLOGY Referring Provider: MARYAM FARMER MD 24 HR Interval Summary Free Text/Dictation Cr 1.36, HCo3 trended up to 42, BP stable Exam/Review of Systems Vital Signs Vitals Vital Signs Date Time Temp Pulse Resp B/P Pulse Ox O2 Delivery O2 Flow Rate FiO2 02/19/17 15:11 87 22 95 4.0 36 02/19/17 15:06 98.1 104/61 02/19/17 09:30 Nasal Cannula Intake and Output 02/18/17 02/18/17 02/19/17 15:00 23:00 07:00 Intake Total 560 ml 120 ml Output Total 300 ml Balance 560 ml -180 ml Results Result Diagram: 02/19/17 0433 02/19/17 0433 Results 24 hrs Laboratory Tests Test 02/19/17 04:33 02/19/17 05:27 White Blood Count 5.5 Red Blood Count 2.62 L Hemoglobin 8.6 L Hematocrit 27.9 L Mean Corpuscular Volume 106.5 H Mean Corpuscular Hemoglobin 32.8 Mean Corpuscular Hemoglobin Concent 30.8 L Red Cell Distribution Width 15.4 H Platelet Count 129 L Mean Platelet Volume 11.2 H Neutrophils % 74.3 Lymphocytes % 11.2 L Monocytes % 12.0 H Eosinophils % 1.8 Basophils % 0.5 Nucleated Red Blood Cells % 0.0 Neutrophils # 4.1 Lymphocytes # 0.6 L Monocytes # 0.7 Eosinophils # 0.1 Basophils # 0.0 Nucleated Red Blood Cells # 0.0 Sodium Level 139 Potassium Level 4.0 Chloride Level 97 Carbon Dioxide Level 42 *H Anion Gap 4 L Blood Urea Nitrogen 19 Creatinine 1.36 H Glucose Level 77 Calcium Level 8.7 Lab Scanned Report BLOOD TRANSFUSION Medications Medications Current Medications Atorvastatin Calcium (Lipitor) 20 mg QHS PO Last administered on 02/18/17 20: 58; Admin Dose 20 MG; Start 01/31/17 at 21:00 Escitalopram Oxalate (Lexapro) 10 mg DAILY PO Last administered on 02/19/17 08 :27; Admin Dose 10 MG; Start 02/01/17 at 09:00 Ondansetron HCl (Zofran Inj) 4 mg Q6 PRN IV NAUSEA Last administered on 11:47; Admin Dose 4 MG; Start 01/31/17 at 19:30 Morphine Sulfate (Ms Contin (Er)) 15 mg BID PO Last administered on 02/19/17 08:28; Admin Dose 15 MG; Start 01/31/17 at 23:00 Morphine Sulfate (morphine) 4 mg Q4H PRN IV SEVERE PAIN LEVEL 7-10 Last administered on 02/15/17 22:27; Admin Dose 4 MG; Start 01/31/17 at 23:00 Nitroglycerin (Nitroglycerin (Sl Tab) 0.4 Mg) 1 tab Q5M PRN SL ANGINA; Start at 11:30 Pantoprazole (Protonix Tab) 40 mg DAILY@06 PO Last administered on 02/19/17 06 :04; Admin Dose 40 MG; Start 02/02/17 at 06:00 Voriconazole (Vfend) 200 mg BID PO Last administered on 02/19/17 08:27; Admin Dose 200 MG; Start 02/01/17 at 21:00 Senna (Senokot) 1 tab DAILY PRN PO CONSTIPATION Last administered on 02/03/17 20:36; Admin Dose 1 TAB; Start 02/02/17 at 16:00 Lactulose (Enulose) 20 gm DAILY PRN PO CONSTIPATION; Start 02/02/17 at 16:00 IV Flush (NS 10 ml) 10 ml PRN PRN IV IV PROTOCOL; Start 02/06/17 at 20:00 Oxymetazoline HCl (Afrin [place]) 2 spray BID NASAL Last administered on 08:28; Admin Dose 2 SPRAY; Start 02/07/17 at 15:00 Apixaban (Eliquis) 10 mg BID PO Last administered on 02/19/17 08:27; Admin Dose 10 MG; Start 02/14/17 at 09:00; Stop 02/20/17 at 21:00 Apixaban (Eliquis) 5 mg BID PO ; Start 02/21/17 at 09:00 Furosemide (Lasix) 40 mg DAILY PO Last administered on 02/19/17 08:33; Admin Dose 40 MG; Start 02/19/17 at 09:00 MELODY JENSEN MD Feb 19, 2017 18:42
--- NOTE | 2017-02-19 18:57 | CONS ---
Date/Time of Note Date/Time of Note DATE: 02/19/17 TIME: 18:54 Assessment/Plan Assessment/Plan Chief Complaint/Hosp Course IMPRESSION: 1. Chest pain. Assess for acute coronary syndrome in a patient with lung cancer, undergoing chemotherapy, likely secondary to lung cancer.-negative trop x3 2. Abnormal electrocardiogram with nonspecific ST and T-wave abnormalities, assess for acute coronary syndrome. 3. Bradycardia, transient while on beta matthew. 4. Hypotension-improved 5. Shortness of thtsnw-ergm-[id number] PNA 6. Lung cancer with ongoing chemotherapy. 7. Leukocytosis. 8. Anemia. 9. Thrombocytopenia-stable 10. Possible ileus by KUB 11.DVT-UE around piccline Recc: -Tel -Continue eliquis -Continue abx;'s and f/u cx data -Continue statin -? necessity of Bronch -Continue abx's and f/u cx data -pulmonary toliet -Follow BP closely -Continue lasix diuresis and follow volume status closely -Continue marinol Problems: Consultation Date/Type/Reason Admit Date/Time Jan 31, 2017 at 18:59 Initial Consult Date 02/01/17 Type of Consultation: cardiology Reason for Consultation chest pain Referring Provider: MARYAM FARMER MD Exam/Review of Systems Vital Signs Vitals Vital Signs Date Time Temp Pulse Resp B/P Pulse Ox O2 Delivery O2 Flow Rate FiO2 02/19/17 15:11 87 22 95 4.0 36 02/19/17 15:06 98.1 104/61 02/19/17 09:30 Nasal Cannula Intake and Output 02/18/17 02/18/17 02/19/17 15:00 23:00 07:00 Intake Total 560 ml 120 ml Output Total 300 ml Balance 560 ml -180 ml Exam Review of Systems: CONSTITUTIONAL: No fevers, chills. PULMONARY: ongoing sob CARDIOVASCULAR: No chest pain/palpitations GASTROINTESTINAL: No nausea/vomiting. GENITOURINARY: No hematuria/dysuria. MUSCULOSKELETAL: UE and LE edema PSYCHIATRIC: The patient denies depression. NEUROLOGIC: No weakness Constitutional: alert Psych: no complaints Head: normocephalic ENMT: mucosa pink and moist Neck: jvd (9 cm water), supple Respiratory: diminished breath sounds (at bases/B) Cardiovascular: regular rate and rhythm Gastrointestinal: non-tender, soft Musculoskeletal: muscle weakness (mild generalized) Extremities: pitting pedal edema (BIlateral and LUE swelling/edema) Neurological: other (No focal deficits) Results Result Diagram: 02/19/17 0433 02/19/17 0433 Results 24 hrs Laboratory Tests Test 02/19/17 04:33 02/19/17 05:27 White Blood Count 5.5 Red Blood Count 2.62 L Hemoglobin 8.6 L Hematocrit 27.9 L Mean Corpuscular Volume 106.5 H Mean Corpuscular Hemoglobin 32.8 Mean Corpuscular Hemoglobin Concent 30.8 L Red Cell Distribution Width 15.4 H Platelet Count 129 L Mean Platelet Volume 11.2 H Neutrophils % 74.3 Lymphocytes % 11.2 L Monocytes % 12.0 H Eosinophils % 1.8 Basophils % 0.5 Nucleated Red Blood Cells % 0.0 Neutrophils # 4.1 Lymphocytes # 0.6 L Monocytes # 0.7 Eosinophils # 0.1 Basophils # 0.0 Nucleated Red Blood Cells # 0.0 Sodium Level 139 Potassium Level 4.0 Chloride Level 97 Carbon Dioxide Level 42 *H Anion Gap 4 L Blood Urea Nitrogen 19 Creatinine 1.36 H Glucose Level 77 Calcium Level 8.7 Lab Scanned Report BLOOD TRANSFUSION Medications Medications Current Medications Atorvastatin Calcium (Lipitor) 20 mg QHS PO Last administered on 02/18/17 20: 58; Admin Dose 20 MG; Start 01/31/17 at 21:00 Escitalopram Oxalate (Lexapro) 10 mg DAILY PO Last administered on 02/19/17 08 :27; Admin Dose 10 MG; Start 02/01/17 at 09:00 Ondansetron HCl (Zofran Inj) 4 mg Q6 PRN IV NAUSEA Last administered on 11:47; Admin Dose 4 MG; Start 01/31/17 at 19:30 Morphine Sulfate (Ms Contin (Er)) 15 mg BID PO Last administered on 02/19/17 08:28; Admin Dose 15 MG; Start 01/31/17 at 23:00 Morphine Sulfate (morphine) 4 mg Q4H PRN IV SEVERE PAIN LEVEL 7-10 Last administered on 02/15/17 22:27; Admin Dose 4 MG; Start 01/31/17 at 23:00 Nitroglycerin (Nitroglycerin (Sl Tab) 0.4 Mg) 1 tab Q5M PRN SL ANGINA; Start at 11:30 Pantoprazole (Protonix Tab) 40 mg DAILY@06 PO Last administered on 02/19/17 06 :04; Admin Dose 40 MG; Start 02/02/17 at 06:00 Voriconazole (Vfend) 200 mg BID PO Last administered on 02/19/17 08:27; Admin Dose 200 MG; Start 02/01/17 at 21:00 Senna (Senokot) 1 tab DAILY PRN PO CONSTIPATION Last administered on 02/03/17 20:36; Admin Dose 1 TAB; Start 02/02/17 at 16:00 Lactulose (Enulose) 20 gm DAILY PRN PO CONSTIPATION; Start 02/02/17 at 16:00 IV Flush (NS 10 ml) 10 ml PRN PRN IV IV PROTOCOL; Start 02/06/17 at 20:00 Oxymetazoline HCl (Afrin [place]) 2 spray BID NASAL Last administered on 08:28; Admin Dose 2 SPRAY; Start 02/07/17 at 15:00 Apixaban (Eliquis) 10 mg BID PO Last administered on 02/19/17 08:27; Admin Dose 10 MG; Start 02/14/17 at 09:00; Stop 02/20/17 at 21:00 Apixaban (Eliquis) 5 mg BID PO ; Start 02/21/17 at 09:00 Furosemide (Lasix) 40 mg DAILY PO Last administered on 02/19/17 08:33; Admin Dose 40 MG; Start 02/19/17 at 09:00 MARIAA ÁLVAREZ Feb 19, 2017 18:57
[2017-02-19] MEDS: morphine 4 MG/ML VIAL IV PRN (20:27)
--- NOTE | 2017-02-19 21:11 | RADRPT ---
PROCEDURE: XR Chest. CLINICAL INDICATION: Chest pain and dyspnea. TECHNIQUE: Single frontal view of the chest. COMPARISON: 02/17/2016. FINDINGS: Interval near complete opacification of the right hemithorax. Previously seen opacity at the right a pex is substantially increased over the interval. Recommend CT correlation. Pulmonary vascular conge stion is seen. Atelectasis versus airspace disease at the left lung base. The osseous structures and soft tissues are unremarkable. IMPRESSION: Interval near complete opacification right hemithorax and recommend CT correlation. RPTAT: [facility] Physician [place] Date Time Electronically viewed and signed by Physician Kusum on 02/19/2017 21:11 RS/
[2017-02-19] MEDS: ATORVASTATIN 20 MG TAB PO SCH (21:30)
--- NOTE | 2017-02-19 22:00 | CONS ---
Date/Time of Note Date/Time of Note DATE: 02/19/17 TIME: 21:59 Assessment/Plan Assessment/Plan Chief Complaint/Hosp Course metastatic lung CANCER, NSCLC - ON CHEMO WITH RELATIVELY STABLE DIS D/W PULM AND RADIOLOGIST CHEMO ON HOLD DURING HOSPITALIZATION HX PANCYTOPENIA POST CHEMO MONITOR BLOOD COUNT CLOSELY LEUKOCYTOSIS PROB 2 TO POST OBSTRUCTIVE PNA HX LEUKOPENIA- POST CHEMO POST NEUPOGEN IN THE PAST PAIN PAIN CONTROL CHF, FLUID OVERLOAD GENTLE DIURESIS, CONSIDERING BORDERLINE BP POST Hypoxemic respiratory failure IN AUG 2016 , reaction to CARBO severe pneumonia/bronchitis due to enterobacter (09/22/2016-) HX DVT TREATED WITH LOVENOX PT SELF- DC 2 TO HEMOPTYSIS OUTPT History of coronary artery disease. Chronic obstructive pulmonary disease HX TOBACCO SMOKING Problems: Consultation Date/Type/Reason Admit Date/Time Jan 31, 2017 at 18:59 Initial Consult Date 01/31/17 [facility] Referring Provider: MARYAM FARMER MD 24 HR Interval Summary Free Text/Dictation ALL NOTED WEAK D/W Exam/Review of Systems Vital Signs Vitals Vital Signs Date Time Temp Pulse Resp B/P Pulse Ox O2 Delivery O2 Flow Rate FiO2 02/19/17 21:33 94 95 50 02/19/17 19:41 20 Nasal Cannula 5.0 02/19/17 15:06 98.1 104/61 Intake and Output 02/18/17 02/18/17 02/19/17 15:00 23:00 07:00 Intake Total 560 ml 120 ml Output Total 300 ml Balance 560 ml -180 ml Exam GENERAL: The patient is alert, awake, complaining of chest pain, shortness of breath. NECK: JVP approximately 9 cm water. CHEST: Upper airway transmitted diffuse rhonchorous sounds. Decreased breath sounds at the bases bilaterally. HEART: Regular rate and rhythm. Normal S1, increased S2. 1/6 systolic murmur. Nondisplaced PMI. ABDOMEN: Positive bowel sounds. Soft. EXTREMITIES: 2 + edema, up and lower extremities bilaterally. 1+ pulses bilateral posterior tibial. Results Result Diagram: 02/19/17 0433 02/19/17 0433 Results 24 hrs Laboratory Tests Test 02/19/17 04:33 02/19/17 05:27 White Blood Count 5.5 Red Blood Count 2.62 L Hemoglobin 8.6 L Hematocrit 27.9 L Mean Corpuscular Volume 106.5 H Mean Corpuscular Hemoglobin 32.8 Mean Corpuscular Hemoglobin Concent 30.8 L Red Cell Distribution Width 15.4 H Platelet Count 129 L Mean Platelet Volume 11.2 H Neutrophils % 74.3 Lymphocytes % 11.2 L Monocytes % 12.0 H Eosinophils % 1.8 Basophils % 0.5 Nucleated Red Blood Cells % 0.0 Neutrophils # 4.1 Lymphocytes # 0.6 L Monocytes # 0.7 Eosinophils # 0.1 Basophils # 0.0 Nucleated Red Blood Cells # 0.0 Sodium Level 139 Potassium Level 4.0 Chloride Level 97 Carbon Dioxide Level 42 *H Anion Gap 4 L Blood Urea Nitrogen 19 Creatinine 1.36 H Glucose Level 77 Calcium Level 8.7 Lab Scanned Report BLOOD TRANSFUSION Medications Medications Current Medications Atorvastatin Calcium (Lipitor) 20 mg QHS PO Last administered on 02/18/17 20: 58; Admin Dose 20 MG; Start 01/31/17 at 21:00 Escitalopram Oxalate (Lexapro) 10 mg DAILY PO Last administered on 02/19/17 08 :27; Admin Dose 10 MG; Start 02/01/17 at 09:00 Ondansetron HCl (Zofran Inj) 4 mg Q6 PRN IV NAUSEA Last administered on 11:47; Admin Dose 4 MG; Start 01/31/17 at 19:30 Morphine Sulfate (Ms Contin (Er)) 15 mg BID PO Last administered on 02/19/17 08:28; Admin Dose 15 MG; Start 01/31/17 at 23:00 Morphine Sulfate (morphine) 4 mg Q4H PRN IV SEVERE PAIN LEVEL 7-10 Last administered on 02/19/17 20:27; Admin Dose 4 MG; Start 01/31/17 at 23:00 Nitroglycerin (Nitroglycerin (Sl Tab) 0.4 Mg) 1 tab Q5M PRN SL ANGINA Last administered on 02/19/17 19:48; Admin Dose 1 TAB; Start 02/01/17 at 11:30 Pantoprazole (Protonix Tab) 40 mg DAILY@06 PO Last administered on 02/19/17 06 :04; Admin Dose 40 MG; Start 02/02/17 at 06:00 Voriconazole (Vfend) 200 mg BID PO Last administered on 02/19/17 08:27; Admin Dose 200 MG; Start 02/01/17 at 21:00 Senna (Senokot) 1 tab DAILY PRN PO CONSTIPATION Last administered on 02/03/17 20:36; Admin Dose 1 TAB; Start 02/02/17 at 16:00 Lactulose (Enulose) 20 gm DAILY PRN PO CONSTIPATION; Start 02/02/17 at 16:00 IV Flush (NS 10 ml) 10 ml PRN PRN IV IV PROTOCOL; Start 02/06/17 at 20:00 Oxymetazoline HCl (Afrin [place]) 2 spray BID NASAL Last administered on 08:28; Admin Dose 2 SPRAY; Start 02/07/17 at 15:00 Apixaban (Eliquis) 10 mg BID PO Last administered on 02/19/17 08:27; Admin Dose 10 MG; Start 02/14/17 at 09:00; Stop 02/20/17 at 21:00 Apixaban (Eliquis) 5 mg BID PO ; Start 02/21/17 at 09:00 Furosemide (Lasix) 40 mg DAILY PO Last administered on 02/19/17 08:33; Admin Dose 40 MG; Start 02/19/17 at 09:00 DAHIANA BABCOCK MD Feb 19, 2017 22:00
--- NOTE | 2017-02-19 22:01 | CONS ---
Date/Time of Note Date/Time of Note DATE: 02/18/17 TIME: 19:00 VK LE Assessment/Plan Assessment/Plan Chief Complaint/Hosp Course metastatic lung CANCER, NSCLC - ON CHEMO WITH RELATIVELY STABLE DIS D/W PULM AND RADIOLOGIST CHEMO ON HOLD DURING HOSPITALIZATION HX PANCYTOPENIA POST CHEMO MONITOR BLOOD COUNT CLOSELY LEUKOCYTOSIS PROB 2 TO POST OBSTRUCTIVE PNA HX LEUKOPENIA- POST CHEMO POST NEUPOGEN IN THE PAST PAIN PAIN CONTROL CHF, FLUID OVERLOAD GENTLE DIURESIS, CONSIDERING BORDERLINE BP POST Hypoxemic respiratory failure IN AUG 2016 , reaction to CARBO severe pneumonia/bronchitis due to enterobacter (09/22/2016-) HX DVT TREATED WITH LOVENOX PT SELF- DC 2 TO HEMOPTYSIS OUTPT History of coronary artery disease. Chronic obstructive pulmonary disease HX TOBACCO SMOKING Problems: Consultation Date/Type/Reason Admit Date/Time Jan 31, 2017 at 18:59 Initial Consult Date 01/31/17 [facility] Referring Provider: MARYAM FARMER MD 24 HR Interval Summary Free Text/Dictation D/W WEAK Exam/Review of Systems Vital Signs Vitals VSS Exam GENERAL: The patient is alert, awake, complaining of chest pain, shortness of breath. NECK: JVP approximately 9 cm water. CHEST: Upper airway transmitted diffuse rhonchorous sounds. Decreased breath sounds at the bases bilaterally. HEART: Regular rate and rhythm. Normal S1, increased S2. 1/6 systolic murmur. Nondisplaced PMI. ABDOMEN: Positive bowel sounds. Soft. EXTREMITIES: 2 + edema, up and lower extremities bilaterally. 1+ pulses bilateral posterior tibial. Results Result Diagram: 02/19/17 0433 02/19/17 0433 Results 24 hrs Laboratory Tests Test 02/19/17 04:33 02/19/17 05:27 White Blood Count 5.5 Red Blood Count 2.62 L Hemoglobin 8.6 L Hematocrit 27.9 L Mean Corpuscular Volume 106.5 H Mean Corpuscular Hemoglobin 32.8 Mean Corpuscular Hemoglobin Concent 30.8 L Red Cell Distribution Width 15.4 H Platelet Count 129 L Mean Platelet Volume 11.2 H Neutrophils % 74.3 Lymphocytes % 11.2 L Monocytes % 12.0 H Eosinophils % 1.8 Basophils % 0.5 Nucleated Red Blood Cells % 0.0 Neutrophils # 4.1 Lymphocytes # 0.6 L Monocytes # 0.7 Eosinophils # 0.1 Basophils # 0.0 Nucleated Red Blood Cells # 0.0 Sodium Level 139 Potassium Level 4.0 Chloride Level 97 Carbon Dioxide Level 42 *H Anion Gap 4 L Blood Urea Nitrogen 19 Creatinine 1.36 H Glucose Level 77 Calcium Level 8.7 Lab Scanned Report BLOOD TRANSFUSION Medications Medications Current Medications Atorvastatin Calcium (Lipitor) 20 mg QHS PO Last administered on 02/18/17 20: 58; Admin Dose 20 MG; Start 01/31/17 at 21:00 Escitalopram Oxalate (Lexapro) 10 mg DAILY PO Last administered on 02/19/17 08 :27; Admin Dose 10 MG; Start 02/01/17 at 09:00 Ondansetron HCl (Zofran Inj) 4 mg Q6 PRN IV NAUSEA Last administered on 11:47; Admin Dose 4 MG; Start 01/31/17 at 19:30 Morphine Sulfate (Ms Contin (Er)) 15 mg BID PO Last administered on 02/19/17 08:28; Admin Dose 15 MG; Start 01/31/17 at 23:00 Morphine Sulfate (morphine) 4 mg Q4H PRN IV SEVERE PAIN LEVEL 7-10 Last administered on 02/19/17 20:27; Admin Dose 4 MG; Start 01/31/17 at 23:00 Nitroglycerin (Nitroglycerin (Sl Tab) 0.4 Mg) 1 tab Q5M PRN SL ANGINA Last administered on 02/19/17 19:48; Admin Dose 1 TAB; Start 02/01/17 at 11:30 Pantoprazole (Protonix Tab) 40 mg DAILY@06 PO Last administered on 02/19/17 06 :04; Admin Dose 40 MG; Start 02/02/17 at 06:00 Voriconazole (Vfend) 200 mg BID PO Last administered on 02/19/17 08:27; Admin Dose 200 MG; Start 02/01/17 at 21:00 Senna (Senokot) 1 tab DAILY PRN PO CONSTIPATION Last administered on 02/03/17 20:36; Admin Dose 1 TAB; Start 02/02/17 at 16:00 Lactulose (Enulose) 20 gm DAILY PRN PO CONSTIPATION; Start 02/02/17 at 16:00 IV Flush (NS 10 ml) 10 ml PRN PRN IV IV PROTOCOL; Start 02/06/17 at 20:00 Oxymetazoline HCl (Afrin [place]) 2 spray BID NASAL Last administered on 08:28; Admin Dose 2 SPRAY; Start 02/07/17 at 15:00 Apixaban (Eliquis) 10 mg BID PO Last administered on 02/19/17 08:27; Admin Dose 10 MG; Start 02/14/17 at 09:00; Stop 02/20/17 at 21:00 Apixaban (Eliquis) 5 mg BID PO ; Start 02/21/17 at 09:00 Furosemide (Lasix) 40 mg DAILY PO Last administered on 02/19/17 08:33; Admin Dose 40 MG; Start 02/19/17 at 09:00 DAHIANA BABCOCK MD Feb 19, 2017 22:01 Apixaban (Eliquis) 10 mg BID PO Last administered on 02/19/17 08:27; Admin Dose 10 MG; Start 02/14/17 at 09:00; Stop 02/20/17 at 21:00 Apixaban (Eliquis) 5 mg BID PO ; Start 02/21/17 at 09:00 Furosemide (Lasix) 40 mg DAILY PO Last administered on 02/19/17 08:33; Admin Dose 40 MG; Start 02/19/17 at 09:00 DAHIANA BABCOCK MD Feb 19, 2017 22:01
[2017-02-20] VITALS (13 sets, daily range): BP systolic 105–139; BP diastolic 57–71; PULSE 81–100; RESP 17–20
[2017-02-20] MEDS: LEVALBUTEROL (NEB) 0.63 MG/3 ML AMP HHN SCH ×5 (01:10→20:12)
[2017-02-20] MEDS: LEVOTHYROXINE 75 MCG TAB PO SCH (06:13)
[2017-02-20] MEDS: PANTOPRAZOLE (EC) 40 MG TAB PO SCH (06:13)
[2017-02-20] MEDS: DRONABINOL 2.5 MG CAP PO SCH ×3 (07:30→17:40)
[2017-02-20 08:37] LABS: BASOPHILS % 0.5 % (0.0-2.0); EOSINOPHILS # 0.1 10^3/ul (0.0-0.5); EOSINOPHILS % 2.4 % (0.0-7.0); HEMATOCRIT 29.3 % (42.0-52.0); HEMOGLOBIN 9.1 g/dl (14.0-18.0); LYMPHOCYTES # 0.6 10^3/ul (0.8-2.9); LYMPHOCYTES % 10.9 % (15.0-51.0); MEAN CORPUSCULAR HGB CONC 31.1 g/dl (32.0-37.0); MEAN CORPUSCULAR VOLUME 106.2 fl (82.0-101.0); MEAN PLATELET VOLUME 10.6 fl (7.4-10.4); MONOCYTE # 0.7 10^3/ul (0.3-0.9); MONOCYTES % 12.5 % (0.0-11.0); NEUTROPHIL # 4.3 10^3/ul (1.6-7.5); NEUTROPHILS % 73.5 % (39.0-77.0); PLATELET COUNT 138 10^3/UL (140-415); POSITIVE DIFF @See below; RED BLOOD COUNT 2.76 10^6/ul (4.70-6.10); RED CELL DISTRIBUTION WIDTH 15.1 % (11.5-14.5); WHITE BLOOD COUNT 5.9 10^3/ul (4.8-10.8)
[2017-02-20] MEDS: OXYMETAZOLINE 0.05% 15 ML NAS SPRAY NASAL SCH ×2 (09:00→21:00)
[2017-02-20 09:40] LABS: CREATININE 1.28 mg/dl (0.61-1.24); POTASSIUM 3.8 mmol/L (3.5-5.1)
--- NOTE | 2017-02-20 10:05 | CONS ---
Date/Time of Note Date/Time of Note DATE: 02/20/17 TIME: 10:04 Assessment/Plan Assessment/Plan Chief Complaint/Hosp Course - h/o sepsis due to recurrent pneumonia, and to a lessor degree due to paronychia. 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 Aspergillus antibody was >1:64 but aspergillus antigen in serum by EIA was negative during his last admission. 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 given his immunocompromised state; monitor LFTs weekly - management d/w Pt Problems: Consultation Date/Type/Reason Admit Date/Time Jan 31, 2017 at 18:59 Initial Consult Date 02/14/17 Type of Consultation: ID Referring Provider: MARYAM FARMER MD 24 HR Interval Summary Constitutional: no complaints Detailed Summary Eyes: no complaints ENT: no complaints Respiratory: other (chest tightness), shortness of breath, No cough, No pleuritic pain, No sputum, No wheezing Cardiovascular: no complaints Gastrointestinal: no complaints Genitourinary: no complaints Musculoskeletal: no complaints Skin: no complaints Neurologic: no complaints Endocrine: no complaints Exam/Review of Systems Vital Signs Vitals Vital Signs Date Time Temp Pulse Resp B/P Pulse Ox O2 Delivery O2 Flow Rate FiO2 02/20/17 08:25 85 24 97 Nasal Cannula 6.0 02/20/17 07:59 98.0 121/70 02/20/17 03:15 60 Intake and Output 02/19/17 02/19/17 02/20/17 15:00 23:00 07:00 Intake Total 820 ml Balance 820 ml Exam Constitutional: frail, obese Psych: no complaints Head: normocephalic Eyes: nl conjunctiva, nl lids ENMT: nl external ears & nose, nl nasal mucosa & septum Respiratory: crackles/rales, diminished breath sounds Cardiovascular: nl pulses, regular rate and rhythm Gastrointestinal: non-tender, soft Musculoskeletal: nl extremities to inspection Extremities: No edema Neurological: 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 intact, nl mental status, nl speech Skin: nl turgor Results Result Diagram: 02/20/17 0735 02/20/17 0735 Results 24 hrs Laboratory Tests Test 02/20/17 07:35 White Blood Count 5.9 Red Blood Count 2.76 L Hemoglobin 9.1 L Hematocrit 29.3 L Mean Corpuscular Volume 106.2 H Mean Corpuscular Hemoglobin 33.0 Mean Corpuscular Hemoglobin Concent 31.1 L Red Cell Distribution Width 15.1 H Platelet Count 138 L Mean Platelet Volume 10.6 H Neutrophils % 73.5 Lymphocytes % 10.9 L Monocytes % 12.5 H Eosinophils % 2.4 Basophils % 0.5 Nucleated Red Blood Cells % 0.0 Neutrophils # 4.3 Lymphocytes # 0.6 L Monocytes # 0.7 Eosinophils # 0.1 Basophils # 0.0 Nucleated Red Blood Cells # 0.0 Sodium Level 137 Potassium Level 3.8 Chloride Level 94 L Carbon Dioxide Level 39 H Anion Gap 8 Blood Urea Nitrogen 18 Creatinine 1.28 H Glucose Level 79 Calcium Level 9.0 Medications Medications Current Medications Atorvastatin Calcium (Lipitor) 20 mg QHS PO Last administered on 02/19/17 21: 30; Admin Dose 20 MG; Start 01/31/17 at 21:00 Escitalopram Oxalate (Lexapro) 10 mg DAILY PO Last administered on 02/19/17 08 :27; Admin Dose 10 MG; Start 02/01/17 at 09:00 Ondansetron HCl (Zofran Inj) 4 mg Q6 PRN IV NAUSEA Last administered on 11:47; Admin Dose 4 MG; Start 01/31/17 at 19:30 Morphine Sulfate (Ms Contin (Er)) 15 mg BID PO Last administered on 02/19/17 21:30; Admin Dose 15 MG; Start 01/31/17 at 23:00 Morphine Sulfate (morphine) 4 mg Q4H PRN IV SEVERE PAIN LEVEL 7-10 Last administered on 02/19/17 20:27; Admin Dose 4 MG; Start 01/31/17 at 23:00 Nitroglycerin (Nitroglycerin (Sl Tab) 0.4 Mg) 1 tab Q5M PRN SL ANGINA Last administered on 02/19/17 19:48; Admin Dose 1 TAB; Start 02/01/17 at 11:30 Pantoprazole (Protonix Tab) 40 mg DAILY@06 PO Last administered on 02/20/17 06 :13; Admin Dose 40 MG; Start 02/02/17 at 06:00 Voriconazole (Vfend) 200 mg BID PO Last administered on 02/19/17 21:30; Admin Dose 200 MG; Start 02/01/17 at 21:00 Senna (Senokot) 1 tab DAILY PRN PO CONSTIPATION Last administered on 02/03/17 20:36; Admin Dose 1 TAB; Start 02/02/17 at 16:00 Lactulose (Enulose) 20 gm DAILY PRN PO CONSTIPATION; Start 02/02/17 at 16:00 IV Flush (NS 10 ml) 10 ml PRN PRN IV IV PROTOCOL; Start 02/06/17 at 20:00 Oxymetazoline HCl (Afrin [place]) 2 spray BID NASAL Last administered on 21:30; Admin Dose 2 SPRAY; Start 02/07/17 at 15:00 Apixaban (Eliquis) 10 mg BID PO Last administered on 02/19/17 21:30; Admin Dose 10 MG; Start 02/14/17 at 09:00; Stop 02/20/17 at 21:00 Apixaban (Eliquis) 5 mg BID PO ; Start 02/21/17 at 09:00 Furosemide (Lasix) 40 mg DAILY PO Last administered on 02/19/17t 08:33; Admin Dose 40 MG; Start 02/19/17 at 09:00 LUKE CAAL M.D. Feb 20, 2017 10:05
--- NOTE | 2017-02-20 10:11 | CONS ---
Date/Time of Note Date/Time of Note DATE: 02/20/17 TIME: 10:10 Assessment/Plan Assessment/Plan Additional Assessment/Plan 1. Chest pain. Assess for acute coronary syndrome in a patient with lung cancer, undergoing chemotherapy, likely secondary to lung cancer.-negative trop x3 - NO INTERVENTION PLANNED NOW 2. Abnormal electrocardiogram with nonspecific ST and T-wave abnormalities, assess for acute coronary syndrome. 3. Bradycardia, transient while on beta matthew. NO indication for pacer now. 4. Hypotension-improved 5. Shortness of [id number] PNA - on anti-Bx 6. Lung cancer with ongoing chemotherapy. 7. Leukocytosis. 8. Anemia. 9. Thrombocytopenia-stable 10. Possible ileus by KUB 11.DVT-UE around piccline Consultation Date/Type/Reason Admit Date/Time Jan 31, 2017 at 18:59 Initial Consult Date 02/01/17 Type of Consultation: ID Referring Provider: MARYAM FARMER MD 24 HR Interval Summary Free Text/Dictation NO acute events - more comfortable overall - no CP now ROS: No fever, no chills, no nausea, no vomiting, no diarrhea/constipation No recent weight changes No chest pain, no PND, no orthopnea +_ SOB chronic No dizziness, blurred vision No thirst, no heat or cold intolerance Exam/Review of Systems Vital Signs Vitals Vital Signs Date Time Temp Pulse Resp B/P Pulse Ox O2 Delivery O2 Flow Rate FiO2 02/20/17 08:25 85 24 97 Nasal Cannula 6.0 02/20/17 07:59 98.0 121/70 02/20/17 03:15 60 Intake and Output 02/19/17 02/19/17 02/20/17 15:00 23:00 07:00 Intake Total 820 ml Balance 820 ml Exam General: WN/WD/NAD, AOx 3 HEENT: Unicetric/atraumatic/EOMI (follow commands) NECK: JVD elevated, no thyromegaly Lymph: no lymphadenopathy HEART: regular with no S3, II/ systolic murmur at apex LUNGS: Coarse sounds ABD: soft, NT, ND, +BS : Intact Neuro: non focal SKIN: chronic changes EXT: trace edema Results Result Diagram: 02/20/17 0735 02/20/17 0735 Results 24 hrs Laboratory Tests Test 02/20/17 07:35 White Blood Count 5.9 Red Blood Count 2.76 L Hemoglobin 9.1 L Hematocrit 29.3 L Mean Corpuscular Volume 106.2 H Mean Corpuscular Hemoglobin 33.0 Mean Corpuscular Hemoglobin Concent 31.1 L Red Cell Distribution Width 15.1 H Platelet Count 138 L Mean Platelet Volume 10.6 H Neutrophils % 73.5 Lymphocytes % 10.9 L Monocytes % 12.5 H Eosinophils % 2.4 Basophils % 0.5 Nucleated Red Blood Cells % 0.0 Neutrophils # 4.3 Lymphocytes # 0.6 L Monocytes # 0.7 Eosinophils # 0.1 Basophils # 0.0 Nucleated Red Blood Cells # 0.0 Sodium Level 137 Potassium Level 3.8 Chloride Level 94 L Carbon Dioxide Level 39 H Anion Gap 8 Blood Urea Nitrogen 18 Creatinine 1.28 H Glucose Level 79 Calcium Level 9.0 Medications Medications Current Medications Atorvastatin Calcium (Lipitor) 20 mg QHS PO Last administered on 02/19/17 21: 30; Admin Dose 20 MG; Start 01/31/17 at 21:00 Escitalopram Oxalate (Lexapro) 10 mg DAILY PO Last administered on 02/19/17 08 :27; Admin Dose 10 MG; Start 02/01/17 at 09:00 Ondansetron HCl (Zofran Inj) 4 mg Q6 PRN IV NAUSEA Last administered on 11:47; Admin Dose 4 MG; Start 01/31/17 at 19:30 Morphine Sulfate (Ms Contin (Er)) 15 mg BID PO Last administered on 02/19/17 21:30; Admin Dose 15 MG; Start 01/31/17 at 23:00 Morphine Sulfate (morphine) 4 mg Q4H PRN IV SEVERE PAIN LEVEL 7-10 Last administered on 02/19/17 20:27; Admin Dose 4 MG; Start 01/31/17 at 23:00 Nitroglycerin (Nitroglycerin (Sl Tab) 0.4 Mg) 1 tab Q5M PRN SL ANGINA Last administered on 02/19/17 19:48; Admin Dose 1 TAB; Start 02/01/17 at 11:30 Pantoprazole (Protonix Tab) 40 mg DAILY@06 PO Last administered on 02/20/17 06 :13; Admin Dose 40 MG; Start 02/02/17 at 06:00 Voriconazole (Vfend) 200 mg BID PO Last administered on 02/19/17 21:30; Admin Dose 200 MG; Start 02/01/17 at 21:00 Senna (Senokot) 1 tab DAILY PRN PO CONSTIPATION Last administered on 02/03/17 20:36; Admin Dose 1 TAB; Start 02/02/17 at 16:00 Lactulose (Enulose) 20 gm DAILY PRN PO CONSTIPATION; Start 02/02/17 at 16:00 IV Flush (NS 10 ml) 10 ml PRN PRN IV IV PROTOCOL; Start 02/06/17 at 20:00 Oxymetazoline HCl (Afrin [place]) 2 spray BID NASAL Last administered on 21:30; Admin Dose 2 SPRAY; Start 02/07/17 at 15:00 Apixaban (Eliquis) 10 mg BID PO Last administered on 02/19/17 21:30; Admin Dose 10 MG; Start 02/14/17 at 09:00; Stop 02/20/17 at 21:00 Apixaban (Eliquis) 5 mg BID PO ; Start 02/21/17 at 09:00 Furosemide (Lasix) 40 mg DAILY PO Last administered on 02/19/17 08:33; Admin Dose 40 MG; Start 02/19/17 at 09:00 FRANCIS ESPINAL MD Feb 20, 2017 10:11
[2017-02-20] MEDS: APIXABAN 5 MG TABLET PO SCH ×2 (10:39→21:00)
[2017-02-20] MEDS: ESCITALOPRAM 10 MG TAB PO SCH (10:39)
[2017-02-20] MEDS: VORICONAZOLE 200 MG TAB PO SCH ×2 (10:39→21:00)
[2017-02-20] MEDS: FUROSEMIDE 40 MG TAB PO SCH (10:40)
[2017-02-20] MEDS: morphine (ER) 15 MG TAB PO SCH ×2 (10:41→21:00)
--- NOTE | 2017-02-20 10:46 | CONS ---
Date/Time of Note Date/Time of Note DATE: 02/20/17 TIME: 10:43 Assessment/Plan Assessment/Plan Additional Assessment/Plan Assessment and recommendations; 1. Patient admitted with extensive pneumonia involving the right lung likely from post obstruction due to extensive metastatic non-small cell lung cancer. 2. Left upper extremity DVT. 3. Mild anemia and thrombocytopenia. 4. 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 5. COPD. Continue current treatment. Consider transfer to rehab center. Prognosis is poor. Consultation Date/Type/Reason Admit Date/Time Jan 31, 2017 at 18:59 Initial Consult Date 02/01/17 Type of Consultation: Pulmonary Referring Provider: MARYAM FARMER MD 24 HR Interval Summary Free Text/Dictation Patient's condition remains stable. Still complains of occasional hemoptysis. Shortness of breath is stable. Still complains of dyspnea on minimal exertion. Denies any fever, chest pain. General exam; elderly male, morbidly obese, awake and alert. Currently in no distress. On nasal cannula. Exam/Review of Systems Vital Signs Vitals Vital Signs Date Time Temp Pulse Resp B/P Pulse Ox O2 Delivery O2 Flow Rate FiO2 02/20/17 08:25 85 24 97 Nasal Cannula 6.0 02/20/17 07:59 98.0 121/70 02/20/17 03:15 60 Intake and Output 02/19/17 02/19/17 02/20/17 15:00 23:00 07:00 Intake Total 820 ml Balance 820 ml Exam HEENT exam; supple neck, no JVD. No lymphadenopathy. Midline trachea. No thyromegaly. Pharynx is clear. Patient has fair dentition. Nipples are midsize and reactive to light. Chest exam; diminished breath sounds right lung. Left lung is clear to auscultation. S1-S2 audible, no murmurs. Regular rhythm. Abdomen exam; soft, protuberant. Nontender. No organomegaly. Bowel sounds audible. Extremity exam; no peripheral edema. No clubbing. Pulses 1+ bilaterally. 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 Patient however has hoarseness. Results Result Diagram: 02/20/17 0735 02/20/17 0735 Results 24 hrs Laboratory Tests Test 02/20/17 07:35 White Blood Count 5.9 Red Blood Count 2.76 L Hemoglobin 9.1 L Hematocrit 29.3 L Mean Corpuscular Volume 106.2 H Mean Corpuscular Hemoglobin 33.0 Mean Corpuscular Hemoglobin Concent 31.1 L Red Cell Distribution Width 15.1 H Platelet Count 138 L Mean Platelet Volume 10.6 H Neutrophils % 73.5 Lymphocytes % 10.9 L Monocytes % 12.5 H Eosinophils % 2.4 Basophils % 0.5 Nucleated Red Blood Cells % 0.0 Neutrophils # 4.3 Lymphocytes # 0.6 L Monocytes # 0.7 Eosinophils # 0.1 Basophils # 0.0 Nucleated Red Blood Cells # 0.0 Sodium Level 137 Potassium Level 3.8 Chloride Level 94 L Carbon Dioxide Level 39 H Anion Gap 8 Blood Urea Nitrogen 18 Creatinine 1.28 H Glucose Level 79 Calcium Level 9.0 Medications Medications Current Medications Atorvastatin Calcium (Lipitor) 20 mg QHS PO Last administered on 02/19/17 21: 30; Admin Dose 20 MG; Start 01/31/17 at 21:00 Escitalopram Oxalate (Lexapro) 10 mg DAILY PO Last administered on 02/20/17 10 :39; Admin Dose 10 MG; Start 02/01/17 at 09:00 Ondansetron HCl (Zofran Inj) 4 mg Q6 PRN IV NAUSEA Last administered on 11:47; Admin Dose 4 MG; Start 01/31/17 at 19:30 Morphine Sulfate (Ms Contin (Er)) 15 mg BID PO Last administered on 02/19/17 21:30; Admin Dose 15 MG; Start 01/31/17 at 23:00 Morphine Sulfate (morphine) 4 mg Q4H PRN IV SEVERE PAIN LEVEL 7-10 Last administered on 02/19/17 20:27; Admin Dose 4 MG; Start 01/31/17 at 23:00 Nitroglycerin (Nitroglycerin (Sl Tab) 0.4 Mg) 1 tab Q5M PRN SL ANGINA Last administered on 02/19/17 19:48; Admin Dose 1 TAB; Start 02/01/17 at 11:30 Pantoprazole (Protonix Tab) 40 mg DAILY@06 PO Last administered on 02/20/17 06 :13; Admin Dose 40 MG; Start 02/02/17 at 06:00 Voriconazole (Vfend) 200 mg BID PO Last administered on 02/20/17 10:39; Admin Dose 200 MG; Start 02/01/17 at 21:00 Senna (Senokot) 1 tab DAILY PRN PO CONSTIPATION Last administered on 02/03/17 20:36; Admin Dose 1 TAB; Start 02/02/17 at 16:00 Lactulose (Enulose) 20 gm DAILY PRN PO CONSTIPATION; Start 02/02/17 at 16:00 IV Flush (NS 10 ml) 10 ml PRN PRN IV IV PROTOCOL; Start 02/06/17 at 20:00 Oxymetazoline HCl (Afrin [place]) 2 spray BID NASAL Last administered on 21:30; Admin Dose 2 SPRAY; Start 02/07/17 at 15:00 Apixaban (Eliquis) 10 mg BID PO Last administered on 02/20/17 10:39; Admin Dose 10 MG; Start 02/14/17 at 09:00; Stop 02/20/17 at 21:00 Apixaban (Eliquis) 5 mg BID PO ; Start 02/21/17 at 09:00 Furosemide (Lasix) 40 mg DAILY PO Last administered on 02/20/17 10:40; Admin Dose 40 MG; Start 02/19/17 at 09:00 ISMA CUTLER Feb 20, 2017 10:46
--- NOTE | 2017-02-20 16:58 | PN ---
Date/Time of Note Date/Time of Note DATE: 02/20/17 TIME: 16:50 Assessment/Plan VTE Prophylaxis VTE Prophylaxis Intervention: SCD's Lines/Catheters IV C[facility]ter Type [facility] PICC Line Central line still needed: Yes Urinary Cath still in place: No Assessment/Plan Chief Complaint/Hosp Course Patient denies any nausea vomiting tolerates diet well, bowel movement 1 today. Patient continues on BiPAP overnight and supplemental oxygen during the day. Assessment/Plan - LIZ, Dr. Irving is following in nephrology consultation. - Post-obstructive pneumonia Dr. Philly perry is following infection disease consultation. Status post treatment with antibiotics. - Advanced non-small cell lung CA, Dr. Scanlon is following in oncology consultation. - Acute respiratory failure secondary to above. is following in pulmonology consultation. - Nonocclusive deep venous thrombosis bilateral upper extremities. Continue Eliquis. - Acute on chronic diastolic congestive heart failure, continue gentle diuresis , continue to monitor electrolytes. - h/o fungal pneumonia, on maintenance voriconazole - CAD, continue aspirin. - Hyperlipidemia, continue statin - Hypothyroidism, continue levothyroxine. Further recommendations based on clinical course. Plan of care discussed with Dr. Lincoln. Problems: Exam/Review of Systems Vital Signs Vitals Vital Signs Date Time Temp Pulse Resp B/P Pulse Ox O2 Delivery O2 Flow Rate FiO2 02/20/17 16:23 92 02/20/17 16:09 98.1 18 115/57 95 02/20/17 08:25 Nasal Cannula 6.0 02/20/17 03:15 60 Intake and Output 02/19/17 02/19/17 02/20/17 15:00 23:00 07:00 Intake Total 820 ml Balance 820 ml Exam Constitutional: alert Neck: supple Respiratory: diminished breath sounds Cardiovascular: nl pulses Gastrointestinal: non-tender, soft Extremities: edema Results Result Diagram: 02/20/17 0735 02/20/17 0735 Results 24 hrs Laboratory Tests Test 02/20/17 07:35 White Blood Count 5.9 Red Blood Count 2.76 L Hemoglobin 9.1 L Hematocrit 29.3 L Mean Corpuscular Volume 106.2 H Mean Corpuscular Hemoglobin 33.0 Mean Corpuscular Hemoglobin Concent 31.1 L Red Cell Distribution Width 15.1 H Platelet Count 138 L Mean Platelet Volume 10.6 H Neutrophils % 73.5 Lymphocytes % 10.9 L Monocytes % 12.5 H Eosinophils % 2.4 Basophils % 0.5 Nucleated Red Blood Cells % 0.0 Neutrophils # 4.3 Lymphocytes # 0.6 L Monocytes # 0.7 Eosinophils # 0.1 Basophils # 0.0 Nucleated Red Blood Cells # 0.0 Sodium Level 137 Potassium Level 3.8 Chloride Level 94 L Carbon Dioxide Level 39 H Anion Gap 8 Blood Urea Nitrogen 18 Creatinine 1.28 H Glucose Level 79 Calcium Level 9.0 Medications Medications Current Medications Atorvastatin Calcium (Lipitor) 20 mg QHS PO Last administered on 02/19/17 21: 30; Admin Dose 20 MG; Start 01/31/17 at 21:00 Escitalopram Oxalate (Lexapro) 10 mg DAILY PO Last administered on 02/20/17 10 :39; Admin Dose 10 MG; Start 02/01/17 at 09:00 Ondansetron HCl (Zofran Inj) 4 mg Q6 PRN IV NAUSEA Last administered on 11:47; Admin Dose 4 MG; Start 01/31/17 at 19:30 Morphine Sulfate (Ms Contin (Er)) 15 mg BID PO Last administered on 02/20/17 10:41; Admin Dose 15 MG; Start 01/31/17 at 23:00 Morphine Sulfate (morphine) 4 mg Q4H PRN IV SEVERE PAIN LEVEL 7-10 Last administered on 02/19/17 20:27; Admin Dose 4 MG; Start 01/31/17 at 23:00 Nitroglycerin (Nitroglycerin (Sl Tab) 0.4 Mg) 1 tab Q5M PRN SL ANGINA Last administered on 02/19/17 19:48; Admin Dose 1 TAB; Start 02/01/17 at 11:30 Pantoprazole (Protonix Tab) 40 mg DAILY@06 PO Last administered on 02/20/17 06 :13; Admin Dose 40 MG; Start 02/02/17 at 06:00 Voriconazole (Vfend) 200 mg BID PO Last administered on 02/20/17 10:39; Admin Dose 200 MG; Start 02/01/17 at 21:00 Senna (Senokot) 1 tab DAILY PRN PO CONSTIPATION Last administered on 02/03/17 20:36; Admin Dose 1 TAB; Start 02/02/17 at 16:00 Lactulose (Enulose) 20 gm DAILY PRN PO CONSTIPATION; Start 02/02/17 at 16:00 IV Flush (NS 10 ml) 10 ml PRN PRN IV IV PROTOCOL; Start 02/06/17 at 20:00 Oxymetazoline HCl (Afrin [place]) 2 spray BID NASAL Last administered on 21:30; Admin Dose 2 SPRAY; Start 02/07/17 at 15:00 Apixaban (Eliquis) 10 mg BID PO Last administered on 02/20/17 10:39; Admin Dose 10 MG; Start 02/14/17 at 09:00; Stop 02/20/17 at 21:00 Apixaban (Eliquis) 5 mg BID PO ; Start 02/21/17 at 09:00 Furosemide (Lasix) 40 mg DAILY PO Last administered on 02/20/17 10:40; Admin Dose 40 MG; Start 02/19/17 at 09:00 LUBA EARLY Feb 20, 2017 16:58
--- NOTE | 2017-02-20 17:21 | CONS ---
Date/Time of Note Date/Time of Note DATE: 02/20/17 TIME: 17:19 Assessment/Plan Assessment/Plan Additional Assessment/Plan 1. Anasarca- Fluid overload multifactorial s/p Diuresis with IV lasix and IV albumin 2. acute kidney injury 3. post obstructive PNA 4. Advanced non small lung CA 5. acute respiratory failure 6. Right subclavian Deep venous thrombosis 7. acute on chronic diastolic heart failure 8. h/o fungal pneumonia 9. Hyperlipidemia 10. hypothyroidism Plan: continue current care s/p IV albumin with Lasix diureisis- Cr 1.28 today -HCo3 trended up to 44 due to overdiuresis, pt changed to PO lasix 40mg po daily- today HCo3 39, will monitor HCO3, if continues to remain elevated then we will give Diamox IV abx as per ID and PMD, renally dose all abx Will follow up on Eliquis for DVT for right subclavian DVT. Monitor Electroltyes and replace as needed. Consultation Date/Type/Reason Admit Date/Time Jan 31, 2017 at 18:59 Initial Consult Date 02/14/17 Type of Consultation: NEPHROLOGY Referring Provider: MARYAM FARMER MD Exam/Review of Systems Vital Signs Vitals Vital Signs Date Time Temp Pulse Resp B/P Pulse Ox O2 Delivery O2 Flow Rate FiO2 02/20/17 16:23 92 02/20/17 16:09 98.1 18 115/57 95 02/20/17 08:25 Nasal Cannula 6.0 02/20/17 03:15 60 Intake and Output 02/19/17 02/19/17 02/20/17 15:00 23:00 07:00 Intake Total 820 ml Balance 820 ml Results Result Diagram: 02/20/17 0735 02/20/17 0735 Results 24 hrs Laboratory Tests Test 02/20/17 07:35 White Blood Count 5.9 Red Blood Count 2.76 L Hemoglobin 9.1 L Hematocrit 29.3 L Mean Corpuscular Volume 106.2 H Mean Corpuscular Hemoglobin 33.0 Mean Corpuscular Hemoglobin Concent 31.1 L Red Cell Distribution Width 15.1 H Platelet Count 138 L Mean Platelet Volume 10.6 H Neutrophils % 73.5 Lymphocytes % 10.9 L Monocytes % 12.5 H Eosinophils % 2.4 Basophils % 0.5 Nucleated Red Blood Cells % 0.0 Neutrophils # 4.3 Lymphocytes # 0.6 L Monocytes # 0.7 Eosinophils # 0.1 Basophils # 0.0 Nucleated Red Blood Cells # 0.0 Sodium Level 137 Potassium Level 3.8 Chloride Level 94 L Carbon Dioxide Level 39 H Anion Gap 8 Blood Urea Nitrogen 18 Creatinine 1.28 H Glucose Level 79 Calcium Level 9.0 Medications Medications Current Medications Atorvastatin Calcium (Lipitor) 20 mg QHS PO Last administered on 02/19/17 21: 30; Admin Dose 20 MG; Start 01/31/17 at 21:00 Escitalopram Oxalate (Lexapro) 10 mg DAILY PO Last administered on 02/20/17 10 :39; Admin Dose 10 MG; Start 02/01/17 at 09:00 Ondansetron HCl (Zofran Inj) 4 mg Q6 PRN IV NAUSEA Last administered on 11:47; Admin Dose 4 MG; Start 01/31/17 at 19:30 Morphine Sulfate (Ms Contin (Er)) 15 mg BID PO Last administered on 02/20/17 10:41; Admin Dose 15 MG; Start 01/31/17 at 23:00 Morphine Sulfate (morphine) 4 mg Q4H PRN IV SEVERE PAIN LEVEL 7-10 Last administered on 02/19/17 20:27; Admin Dose 4 MG; Start 01/31/17 at 23:00 Nitroglycerin (Nitroglycerin (Sl Tab) 0.4 Mg) 1 tab Q5M PRN SL ANGINA Last administered on 02/19/17 19:48; Admin Dose 1 TAB; Start 02/01/17 at 11:30 Pantoprazole (Protonix Tab) 40 mg DAILY@06 PO Last administered on 02/20/17 06 :13; Admin Dose 40 MG; Start 02/02/17 at 06:00 Voriconazole (Vfend) 200 mg BID PO Last administered on 02/20/17 10:39; Admin Dose 200 MG; Start 02/01/17 at 21:00 Senna (Senokot) 1 tab DAILY PRN PO CONSTIPATION Last administered on 02/03/17 20:36; Admin Dose 1 TAB; Start 02/02/17 at 16:00 Lactulose (Enulose) 20 gm DAILY PRN PO CONSTIPATION; Start 02/02/17 at 16:00 IV Flush (NS 10 ml) 10 ml PRN PRN IV IV PROTOCOL; Start 02/06/17 at 20:00 Oxymetazoline HCl (Afrin [place]) 2 spray BID NASAL Last administered on 21:30; Admin Dose 2 SPRAY; Start 02/07/17 at 15:00 Apixaban (Eliquis) 10 mg BID PO Last administered on 02/20/17 10:39; Admin Dose 10 MG; Start 02/14/17 at 09:00; Stop 02/20/17 at 21:00 Apixaban (Eliquis) 5 mg BID PO ; Start 02/21/17 at 09:00 Furosemide (Lasix) 40 mg DAILY PO Last administered on 02/20/17 10:40; Admin Dose 40 MG; Start 02/19/17 at 09:00 MELODY JENSEN MD Feb 20, 2017 17:21
[2017-02-20] MEDS: ONDANSETRON 4 MG INJ IV PRN (17:40)
[2017-02-20] MEDS: morphine 4 MG/ML VIAL IV PRN (17:40)
[2017-02-20] MEDS: ATORVASTATIN 20 MG TAB PO SCH (21:00)
[2017-02-21] VITALS (12 sets, daily range): BP systolic 108–128; BP diastolic 53–72; PULSE 72–95; RESP 16–18
--- NOTE | 2017-02-21 00:21 | CONS ---
Date/Time of Note Date/Time of Note DATE: 02/20/17 TIME: 19:20 VK LE Assessment/Plan Assessment/Plan Chief Complaint/Hosp Course metastatic lung CANCER, NSCLC - ON CHEMO WITH RELATIVELY STABLE DIS D/W PULM AND RADIOLOGIST CHEMO ON HOLD DURING HOSPITALIZATION HX PANCYTOPENIA POST CHEMO MONITOR BLOOD COUNT CLOSELY LEUKOCYTOSIS PROB 2 TO POST OBSTRUCTIVE PNA HX LEUKOPENIA- POST CHEMO POST NEUPOGEN IN THE PAST PAIN PAIN CONTROL CHF, FLUID OVERLOAD GENTLE DIURESIS, CONSIDERING BORDERLINE BP POST Hypoxemic respiratory failure IN AUG 2016 , reaction to CARBO severe pneumonia/bronchitis due to enterobacter (09/22/2016-) HX DVT TREATED WITH LOVENOX PT SELF- DC 2 TO HEMOPTYSIS OUTPT History of coronary artery disease. Chronic obstructive pulmonary disease HX TOBACCO SMOKING Problems: Consultation Date/Type/Reason Admit Date/Time Jan 31, 2017 at 18:59 Initial Consult Date 01/31/17 [facility] of Consultation[facility] Referring Provider: MARYAM FARMER MD 24 HR Interval Summary Free Text/Dictation ALL NOTED Exam/Review of Systems Vital Signs Vitals Vital Signs Date Time Temp Pulse Resp B/P Pulse Ox O2 Delivery O2 Flow Rate FiO2 02/21/17 00:13 98.2 77 16 118/69 97 02/20/17 20:13 Nasal Cannula 6.0 02/20/17 03:15 60 Intake and Output 02/20/17 02/20/17 02/21/17 15:00 23:00 07:00 Intake Total 950 ml Output Total 100 ml Balance -100 ml 950 ml Exam GENERAL: The patient is alert, awake, complaining of chest pain, shortness of breath. NECK: JVP approximately 9 cm water. CHEST: Upper airway transmitted diffuse rhonchorous sounds. Decreased breath sounds at the bases bilaterally. HEART: Regular rate and rhythm. Normal S1, increased S2. 1/6 systolic murmur. Nondisplaced PMI. ABDOMEN: Positive bowel sounds. Soft. EXTREMITIES: 2 + edema, up and lower extremities bilaterally. 1+ pulses bilateral posterior tibial. Results Result Diagram: 02/20/17 0735 02/20/17 0735 Results 24 hrs Laboratory Tests Test 02/20/17 07:35 White Blood Count 5.9 Red Blood Count 2.76 L Hemoglobin 9.1 L Hematocrit 29.3 L Mean Corpuscular Volume 106.2 H Mean Corpuscular Hemoglobin 33.0 Mean Corpuscular Hemoglobin Concent 31.1 L Red Cell Distribution Width 15.1 H Platelet Count 138 L Mean Platelet Volume 10.6 H Neutrophils % 73.5 Lymphocytes % 10.9 L Monocytes % 12.5 H Eosinophils % 2.4 Basophils % 0.5 Nucleated Red Blood Cells % 0.0 Neutrophils # 4.3 Lymphocytes # 0.6 L Monocytes # 0.7 Eosinophils # 0.1 Basophils # 0.0 Nucleated Red Blood Cells # 0.0 Sodium Level 137 Potassium Level 3.8 Chloride Level 94 L Carbon Dioxide Level 39 H Anion Gap 8 Blood Urea Nitrogen 18 Creatinine 1.28 H Glucose Level 79 Calcium Level 9.0 Medications Medications Current Medications Atorvastatin Calcium (Lipitor) 20 mg QHS PO Last administered on 02/19/17 21: 30; Admin Dose 20 MG; Start 01/31/17 at 21:00 Escitalopram Oxalate (Lexapro) 10 mg DAILY PO Last administered on 02/20/17 10 :39; Admin Dose 10 MG; Start 02/01/17 at 09:00 Ondansetron HCl (Zofran Inj) 4 mg Q6 PRN IV NAUSEA Last administered on 17:40; Admin Dose 4 MG; Start 01/31/17 at 19:30 Morphine Sulfate (Ms Contin (Er)) 15 mg BID PO Last administered on 02/20/17 10:41; Admin Dose 15 MG; Start 01/31/17 at 23:00 Morphine Sulfate (morphine) 4 mg Q4H PRN IV SEVERE PAIN LEVEL 7-10 Last administered on 02/20/17 17:40; Admin Dose 4 MG; Start 01/31/17 at 23:00 Nitroglycerin (Nitroglycerin (Sl Tab) 0.4 Mg) 1 tab Q5M PRN SL ANGINA Last administered on 02/19/17 19:48; Admin Dose 1 TAB; Start 02/01/17 at 11:30 Pantoprazole (Protonix Tab) 40 mg DAILY@06 PO Last administered on 02/20/17 06 :13; Admin Dose 40 MG; Start 02/02/17 at 06:00 Voriconazole (Vfend) 200 mg BID PO Last administered on 02/20/17 10:39; Admin Dose 200 MG; Start 02/01/17 at 21:00 Senna (Senokot) 1 tab DAILY PRN PO CONSTIPATION Last administered on 02/03/17 20:36; Admin Dose 1 TAB; Start 02/02/17 at 16:00 Lactulose (Enulose) 20 gm DAILY PRN PO CONSTIPATION; Start 02/02/17 at 16:00 IV Flush (NS 10 ml) 10 ml PRN PRN IV IV PROTOCOL; Start 02/06/17 at 20:00 Oxymetazoline HCl (Afrin [place]) 2 spray BID NASAL Last administered on 21:00; Admin Dose 2 SPRAY; Start 02/07/17 at 15:00 Apixaban (Eliquis) 5 mg BID PO ; Start 02/21/17 at 09:00 Furosemide (Lasix) 40 mg DAILY PO Last administered on 02/20/17 10:40; Admin Dose 40 MG; Start 02/19/17 at 09:00 DAHIANA BABCOCK MD Feb 21, 2017 00:21
[2017-02-21] MEDS: LEVALBUTEROL (NEB) 0.63 MG/3 ML AMP HHN SCH ×4 (01:59→19:51)
[2017-02-21] MEDS: LEVOTHYROXINE 75 MCG TAB PO SCH (06:38)
[2017-02-21] MEDS: PANTOPRAZOLE (EC) 40 MG TAB PO SCH (06:38)
[2017-02-21 07:35] LABS: BASOPHILS % 0.5 % (0.0-2.0); EOSINOPHILS # 0.1 10^3/ul (0.0-0.5); EOSINOPHILS % 2.5 % (0.0-7.0); LYMPHOCYTES # 0.8 10^3/ul (0.8-2.9); LYMPHOCYTES % 13.4 % (15.0-51.0); MEAN CORPUSCULAR HEMOGLOBIN 31.5 pg (29.0-33.0); MEAN CORPUSCULAR VOLUME 104.9 fl (82.0-101.0); MEAN PLATELET VOLUME 11.2 fl (7.4-10.4); MONOCYTE # 0.7 10^3/ul (0.3-0.9); MONOCYTES % 12.9 % (0.0-11.0); NEUTROPHIL # 3.9 10^3/ul (1.6-7.5); NEUTROPHILS % 70.3 % (39.0-77.0); PLATELET COUNT 133 10^3/UL (140-415); POSITIVE DIFF @See below; RED BLOOD COUNT 2.86 10^6/ul (4.70-6.10); WHITE BLOOD COUNT 5.6 10^3/ul (4.8-10.8)
[2017-02-21 08:28] LABS: ALBUMIN 3.2 g/dl (3.3-4.9); ALBUMIN/GLOBULIN RATIO 1.33; BILIRUBIN,INDIRECT 0.3 mg/dl (0-1.1); BILIRUBIN,TOTAL 0.3 mg/dl (0.2-1.3); CALCIUM 8.7 mg/dl (8.4-10.2); CREATININE 1.28 mg/dl (0.61-1.24); POTASSIUM 3.9 mmol/L (3.5-5.1); TOTAL PROTEIN 5.6 g/dl (6.1-8.1)
[2017-02-21] MEDS: OXYMETAZOLINE 0.05% 15 ML NAS SPRAY NASAL SCH ×2 (09:27→21:05)
[2017-02-21] MEDS: VORICONAZOLE 200 MG TAB PO SCH ×2 (09:28→21:05)
[2017-02-21] MEDS: DRONABINOL 2.5 MG CAP PO SCH ×3 (09:28→17:40)
[2017-02-21] MEDS: ESCITALOPRAM 10 MG TAB PO SCH (09:28)
[2017-02-21] MEDS: APIXABAN 5 MG TABLET PO SCH ×2 (09:28→21:05)
[2017-02-21] MEDS: FUROSEMIDE 40 MG TAB PO SCH (09:29)
[2017-02-21] MEDS: morphine (ER) 15 MG TAB PO SCH ×3 (09:30→22:01)
[2017-02-21] MEDS: morphine 4 MG/ML VIAL IV PRN ×3 (09:35→17:44)
--- NOTE | 2017-02-21 09:58 | CONS ---
Date/Time of Note Date/Time of Note DATE: 02/21/17 TIME: 09:56 Assessment/Plan Assessment/Plan Additional Assessment/Plan Assessment and recommendations; 1. Patient admitted with extensive pneumonia involving right lung with widely metastatic non-small cell lung cancer likely causing significant post obstructive pneumonia. Patient however off antimicrobial treatment other than continuation of voriconazole. 2. 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 3. Left upper extremity DVT. 4. Mild anemia and thrombocytopenia. 5. Obesity. 6. COPD. Continue current treatment. Prognosis is poor. Consultation Date/Type/Reason Admit Date/Time Jan 31, 2017 at 18:59 Initial Consult Date 02/01/17 Type of Consultation: Pulmonary Referring Provider: MARYAM FARMER MD 24 HR Interval Summary Free Text/Dictation Patient's condition is stable. Still complains of occasional hemoptysis. Has stable shortness of breath. Denies any chest pain. General exam; elderly male, awake and alert. Currently in no distress. Exam/Review of Systems Vital Signs Vitals Vital Signs Date Time Temp Pulse Resp B/P Pulse Ox O2 Delivery O2 Flow Rate FiO2 02/21/17 08:05 80 02/21/17 08:01 98.1 18 117/53 97 02/21/17 07:15 6.0 02/21/17 07:15 Nasal Cannula 02/20/17 03:15 60 Intake and Output 02/20/17 02/20/17 02/21/17 15:00 23:00 07:00 Intake Total 950 ml 200 ml Output Total 100 ml Balance -100 ml 950 ml 200 ml Exam HEENT exam; supple neck, no JVD. No lymphadenopathy. Midline trachea. No thyromegaly. Patient has fair dentition. Pharynx is clear. Chest exam; diminished breath sounds right lung. Left lung is clear to auscultation. S1-S2 audible, no murmurs. Regular rhythm. Abdomen exam; soft, protuberant. No organomegaly. Bowel sounds audible. Extremities; no edema. No clubbing. Pulses 1+ bilaterally. CAN CLEANER exam; no focal deficit. Results Result Diagram: 02/21/17 0659 02/21/17 0657 Results 24 hrs Laboratory Tests Test 02/21/17 06:57 02/21/17 06:59 Sodium Level 138 Potassium Level 3.9 Chloride Level 94 L Carbon Dioxide Level 42 *H Anion Gap 6 L Blood Urea Nitrogen 17 Creatinine 1.28 H Glucose Level 83 Calcium Level 8.7 Total Bilirubin 0.3 Direct Bilirubin 0.00 Indirect Bilirubin 0.3 Aspartate Amino Transf (AST/SGOT) 31 Alanine Aminotransferase (ALT/SGPT) 29 Alkaline Phosphatase 70 Total Protein 5.6 L Albumin 3.2 L Globulin 2.40 Albumin/Globulin Ratio 1.33 White Blood Count 5.6 Red Blood Count 2.86 L Hemoglobin 9.0 L Hematocrit 30.0 L Mean Corpuscular Volume 104.9 H Mean Corpuscular Hemoglobin 31.5 Mean Corpuscular Hemoglobin Concent 30.0 L Red Cell Distribution Width 15.0 H Platelet Count 133 L Mean Platelet Volume 11.2 H Neutrophils % 70.3 Lymphocytes % 13.4 L Monocytes % 12.9 H Eosinophils % 2.5 Basophils % 0.5 Nucleated Red Blood Cells % 0.0 Neutrophils # 3.9 Lymphocytes # 0.8 Monocytes # 0.7 Eosinophils # 0.1 Basophils # 0.0 Nucleated Red Blood Cells # 0.0 Medications Medications Current Medications Atorvastatin Calcium (Lipitor) 20 mg QHS PO Last administered on 02/19/17 21: 30; Admin Dose 20 MG; Start 01/31/17 at 21:00 Escitalopram Oxalate (Lexapro) 10 mg DAILY PO Last administered on 02/21/17 09 :28; Admin Dose 10 MG; Start 02/01/17 at 09:00 Ondansetron HCl (Zofran Inj) 4 mg Q6 PRN IV NAUSEA Last administered on 17:40; Admin Dose 4 MG; Start 01/31/17 at 19:30 Morphine Sulfate (Ms Contin (Er)) 15 mg BID PO Last administered on 02/21/17 09:30; Admin Dose 15 MG; Start 01/31/17 at 23:00 Morphine Sulfate (morphine) 4 mg Q4H PRN IV SEVERE PAIN LEVEL 7-10 Last administered on 02/21/17 09:35; Admin Dose 4 MG; Start 01/31/17 at 23:00 Nitroglycerin (Nitroglycerin (Sl Tab) 0.4 Mg) 1 tab Q5M PRN SL ANGINA Last administered on 02/19/17 19:48; Admin Dose 1 TAB; Start 02/01/17 at 11:30 Pantoprazole (Protonix Tab) 40 mg DAILY@06 PO Last administered on 02/21/17 06 :38; Admin Dose 40 MG; Start 02/02/17 at 06:00 Voriconazole (Vfend) 200 mg BID PO Last administered on 02/21/17 09:28; Admin Dose 200 MG; Start 02/01/17 at 21:00 Senna (Senokot) 1 tab DAILY PRN PO CONSTIPATION Last administered on 02/03/17 20:36; Admin Dose 1 TAB; Start 02/02/17 at 16:00 Lactulose (Enulose) 20 gm DAILY PRN PO CONSTIPATION; Start 02/02/17 at 16:00 IV Flush (NS 10 ml) 10 ml PRN PRN IV IV PROTOCOL; Start 02/06/17 at 20:00 Oxymetazoline HCl (Afrin [place]) 2 spray BID NASAL Last administered on 09:27; Admin Dose 2 SPRAY; Start 02/07/17 at 15:00 Apixaban (Eliquis) 5 mg BID PO Last administered on 02/21/17 09:28; Admin Dose 5 MG; Start 02/21/17 at 09:00 Furosemide (Lasix) 40 mg DAILY PO Last administered on 02/21/17 09:29; Admin Dose 40 MG; Start 02/19/17 at 09:00 ISMA CUTLER Feb 21, 2017 09:58
--- NOTE | 2017-02-21 10:03 | CONS ---
Date/Time of Note Date/Time of Note DATE: 02/21/17 TIME: 10:02 Assessment/Plan Assessment/Plan Additional Assessment/Plan 1. Chest pain. Assess for acute coronary syndrome in a patient with lung cancer, undergoing chemotherapy, likely secondary to lung cancer.-negative trop x3 - NO INTERVENTION PLANNED NOW - better now 2. Abnormal electrocardiogram with nonspecific ST and T-wave abnormalities, assess for acute coronary syndrome. 3. Bradycardia, transient while on beta matthew. NO indication for pacer now.STABLE GR. 4. Hypotension-improved 5. Shortness of [id number] PNA - on anti-Bx 6. Lung cancer with ongoing chemotherapy. 7. Leukocytosis. 8. Anemia. 9. Thrombocytopenia-stable 10. Possible ileus by KUB 11.DVT-UE around piccline Consultation Date/Type/Reason Admit Date/Time Jan 31, 2017 at 18:59 Initial Consult Date 02/01/17 Type of Consultation: Pulmonary Referring Provider: MARYAM FARMER MD 24 HR Interval Summary Free Text/Dictation NO acute events - no cardiac instability noted. ROS: No fever, no chills, no nausea, no vomiting, no diarrhea/constipation No recent weight changes No chest pain, no PND, no orthopnea + SOB chronic No dizziness, blurred vision No thirst, no heat or cold intolerance Exam/Review of Systems Vital Signs Vitals Vital Signs Date Time Temp Pulse Resp B/P Pulse Ox O2 Delivery O2 Flow Rate FiO2 02/21/17 08:05 80 02/21/17 08:01 98.1 18 117/53 97 02/21/17 07:15 6.0 02/21/17 07:15 Nasal Cannula 02/20/17 03:15 60 Intake and Output 02/20/17 02/20/17 02/21/17 15:00 23:00 07:00 Intake Total 950 ml 200 ml Output Total 100 ml Balance -100 ml 950 ml 200 ml Exam General: WN/WD/NAD, AOx 2-3 HEENT: Unicetric/atraumatic/EOMI (follows commands) NECK: JVD elevated, no thyromegaly Lymph: no lymphadenopathy HEART: regular with no S3, II/ systolic murmur at apex LUNGS: Coarse sounds ABD: soft, NT, ND, +BS : Intact Neuro: non focal SKIN: chronic changes EXT: trace edema Results Result Diagram: 02/21/17 0659 02/21/17 0657 Results 24 hrs Laboratory Tests Test 02/21/17 06:57 02/21/17 06:59 Sodium Level 138 Potassium Level 3.9 Chloride Level 94 L Carbon Dioxide Level 42 *H Anion Gap 6 L Blood Urea Nitrogen 17 Creatinine 1.28 H Glucose Level 83 Calcium Level 8.7 Total Bilirubin 0.3 Direct Bilirubin 0.00 Indirect Bilirubin 0.3 Aspartate Amino Transf (AST/SGOT) 31 Alanine Aminotransferase (ALT/SGPT) 29 Alkaline Phosphatase 70 Total Protein 5.6 L Albumin 3.2 L Globulin 2.40 Albumin/Globulin Ratio 1.33 White Blood Count 5.6 Red Blood Count 2.86 L Hemoglobin 9.0 L Hematocrit 30.0 L Mean Corpuscular Volume 104.9 H Mean Corpuscular Hemoglobin 31.5 Mean Corpuscular Hemoglobin Concent 30.0 L Red Cell Distribution Width 15.0 H Platelet Count 133 L Mean Platelet Volume 11.2 H Neutrophils % 70.3 Lymphocytes % 13.4 L Monocytes % 12.9 H Eosinophils % 2.5 Basophils % 0.5 Nucleated Red Blood Cells % 0.0 Neutrophils # 3.9 Lymphocytes # 0.8 Monocytes # 0.7 Eosinophils # 0.1 Basophils # 0.0 Nucleated Red Blood Cells # 0.0 Medications Medications Current Medications Atorvastatin Calcium (Lipitor) 20 mg QHS PO Last administered on 02/19/17 21: 30; Admin Dose 20 MG; Start 01/31/17 at 21:00 Escitalopram Oxalate (Lexapro) 10 mg DAILY PO Last administered on 02/21/17 09 :28; Admin Dose 10 MG; Start 02/01/17 at 09:00 Ondansetron HCl (Zofran Inj) 4 mg Q6 PRN IV NAUSEA Last administered on 17:40; Admin Dose 4 MG; Start 01/31/17 at 19:30 Morphine Sulfate (Ms Contin (Er)) 15 mg BID PO Last administered on 02/21/17 09:30; Admin Dose 15 MG; Start 01/31/17 at 23:00 Morphine Sulfate (morphine) 4 mg Q4H PRN IV SEVERE PAIN LEVEL 7-10 Last administered on 02/21/17 09:35; Admin Dose 4 MG; Start 01/31/17 at 23:00 Nitroglycerin (Nitroglycerin (Sl Tab) 0.4 Mg) 1 tab Q5M PRN SL ANGINA Last administered on 02/19/17 19:48; Admin Dose 1 TAB; Start 02/01/17 at 11:30 Pantoprazole (Protonix Tab) 40 mg DAILY@06 PO Last administered on 02/21/17 06 :38; Admin Dose 40 MG; Start 02/02/17 at 06:00 Voriconazole (Vfend) 200 mg BID PO Last administered on 02/21/17 09:28; Admin Dose 200 MG; Start 02/01/17 at 21:00 Senna (Senokot) 1 tab DAILY PRN PO CONSTIPATION Last administered on 02/03/17 20:36; Admin Dose 1 TAB; Start 02/02/17 at 16:00 Lactulose (Enulose) 20 gm DAILY PRN PO CONSTIPATION; Start 02/02/17 at 16:00 IV Flush (NS 10 ml) 10 ml PRN PRN IV IV PROTOCOL; Start 02/06/17 at 20:00 Oxymetazoline HCl (Afrin [place]) 2 spray BID NASAL Last administered on 09:27; Admin Dose 2 SPRAY; Start 02/07/17 at 15:00 Apixaban (Eliquis) 5 mg BID PO Last administered on 02/21/17 09:28; Admin Dose 5 MG; Start 02/21/17 at 09:00 Furosemide (Lasix) 40 mg DAILY PO Last administered on 02/21/17 09:29; Admin Dose 40 MG; Start 02/19/17 at 09:00 FRANCIS ESPINAL MD Feb 21, 2017 10:03
--- NOTE | 2017-02-21 10:26 | CONS ---
Date/Time of Note Date/Time of Note DATE: 02/21/17 TIME: 10:25 Assessment/Plan Assessment/Plan Chief Complaint/Hosp Course - h/o sepsis due to recurrent pneumonia, and to a lessor degree due to paronychia. 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 Aspergillus antibody was >1:64 but aspergillus antigen in serum by EIA was negative during his last admission. 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 given his immunocompromised state; monitor LFTs weekly, last checked on 02/21/2017 - management d/w Pt Problems: Consultation Date/Type/Reason Admit Date/Time Jan 31, 2017 at 18:59 Initial Consult Date 02/14/17 Type of Consultation: ID Referring Provider: MARYAM FARMER MD 24 HR Interval Summary Constitutional: other (weak) Detailed Summary Eyes: no complaints ENT: no complaints Respiratory: cough (little), no complaints, shortness of breath, No pleuritic pain, No sputum Cardiovascular: no complaints Gastrointestinal: no complaints Genitourinary: no complaints Musculoskeletal: no complaints Skin: no complaints Neurologic: no complaints Exam/Review of Systems Vital Signs Vitals Vital Signs Date Time Temp Pulse Resp B/P Pulse Ox O2 Delivery O2 Flow Rate FiO2 02/21/17 08:05 80 02/21/17 08:01 98.1 18 117/53 97 02/21/17 07:15 6.0 02/21/17 07:15 Nasal Cannula 02/20/17 03:15 60 Intake and Output 02/20/17 02/20/17 02/21/17 15:00 23:00 07:00 Intake Total 950 ml 200 ml Output Total 100 ml Balance -100 ml 950 ml 200 ml Exam Constitutional: alert, obese, oriented Psych: nl mood/affect, no complaints Head: normocephalic, other (alopecia) Eyes: nl conjunctiva, nl lids ENMT: nl external ears & nose, nl nasal mucosa & septum Respiratory: crackles/rales Cardiovascular: nl pulses, regular rate and rhythm Gastrointestinal: non-tender, soft Musculoskeletal: nl extremities to inspection Extremities: edema Skin: other (nail changes consistent with chemo effect; scabs of L 2nd fingertip) Results Result Diagram: 02/21/17 0659 02/21/17 0657 Results 24 hrs Laboratory Tests Test 02/21/17 06:57 02/21/17 06:59 Sodium Level 138 Potassium Level 3.9 Chloride Level 94 L Carbon Dioxide Level 42 *H Anion Gap 6 L Blood Urea Nitrogen 17 Creatinine 1.28 H Glucose Level 83 Calcium Level 8.7 Total Bilirubin 0.3 Direct Bilirubin 0.00 Indirect Bilirubin 0.3 Aspartate Amino Transf (AST/SGOT) 31 Alanine Aminotransferase (ALT/SGPT) 29 Alkaline Phosphatase 70 Total Protein 5.6 L Albumin 3.2 L Globulin 2.40 Albumin/Globulin Ratio 1.33 White Blood Count 5.6 Red Blood Count 2.86 L Hemoglobin 9.0 L Hematocrit 30.0 L Mean Corpuscular Volume 104.9 H Mean Corpuscular Hemoglobin 31.5 Mean Corpuscular Hemoglobin Concent 30.0 L Red Cell Distribution Width 15.0 H Platelet Count 133 L Mean Platelet Volume 11.2 H Neutrophils % 70.3 Lymphocytes % 13.4 L Monocytes % 12.9 H Eosinophils % 2.5 Basophils % 0.5 Nucleated Red Blood Cells % 0.0 Neutrophils # 3.9 Lymphocytes # 0.8 Monocytes # 0.7 Eosinophils # 0.1 Basophils # 0.0 Nucleated Red Blood Cells # 0.0 Medications Medications Current Medications Atorvastatin Calcium (Lipitor) 20 mg QHS PO Last administered on 02/19/17 21: 30; Admin Dose 20 MG; Start 01/31/17 at 21:00 Escitalopram Oxalate (Lexapro) 10 mg DAILY PO Last administered on 02/21/17 09 :28; Admin Dose 10 MG; Start 02/01/17 at 09:00 Ondansetron HCl (Zofran Inj) 4 mg Q6 PRN IV NAUSEA Last administered on 17:40; Admin Dose 4 MG; Start 01/31/17 at 19:30 Morphine Sulfate (Ms Contin (Er)) 15 mg BID PO Last administered on 02/21/17 09:30; Admin Dose 15 MG; Start 01/31/17 at 23:00 Morphine Sulfate (morphine) 4 mg Q4H PRN IV SEVERE PAIN LEVEL 7-10 Last administered on 02/21/17 09:35; Admin Dose 4 MG; Start 01/31/17 at 23:00 Nitroglycerin (Nitroglycerin (Sl Tab) 0.4 Mg) 1 tab Q5M PRN SL ANGINA Last administered on 02/19/17 19:48; Admin Dose 1 TAB; Start 02/01/17 at 11:30 Pantoprazole (Protonix Tab) 40 mg DAILY@06 PO Last administered on 02/21/17 06 :38; Admin Dose 40 MG; Start 02/02/17 at 06:00 Voriconazole (Vfend) 200 mg BID PO Last administered on 02/21/17 09:28; Admin Dose 200 MG; Start 02/01/17 at 21:00 Senna (Senokot) 1 tab DAILY PRN PO CONSTIPATION Last administered on 02/03/17 20:36; Admin Dose 1 TAB; Start 02/02/17 at 16:00 Lactulose (Enulose) 20 gm DAILY PRN PO CONSTIPATION; Start 02/02/17 at 16:00 IV Flush (NS 10 ml) 10 ml PRN PRN IV IV PROTOCOL; Start 02/06/17 at 20:00 Oxymetazoline HCl (Afrin [place]) 2 spray BID NASAL Last administered on 09:27; Admin Dose 2 SPRAY; Start 02/07/17 at 15:00 Apixaban (Eliquis) 5 mg BID PO Last administered on 02/21/17 09:28; Admin Dose 5 MG; Start 02/21/17 at 09:00 Furosemide (Lasix) 40 mg DAILY PO Last administered on 02/21/17 09:29; Admin Dose 40 MG; Start 02/19/17 at 09:00 LUKE CAAL M.D. Feb 21, 2017 10:26
--- NOTE | 2017-02-21 18:13 | PN ---
Date/Time of Note Date/Time of Note DATE: 02/21/17 TIME: 18:12 Assessment/Plan VTE Prophylaxis VTE Prophylaxis Intervention: SCD's Lines/Catheters IV [facility] Type (from [facility] PICC Line Central line still needed: Yes Urinary Cath still in place: No Assessment/Plan Chief Complaint/Hosp Course Patient stated that he feels better today, but still requires BiPAP at night, will ask case management for arrange for BiPAP for home Assessment/Plan - LIZ, Dr. Irving is following in nephrology consultation. - Post-obstructive pneumonia Dr. Philly perry is following infection disease consultation. Status post treatment with antibiotics. - Advanced non-small cell lung CA, Dr. Scanlon is following in oncology consultation. - Acute respiratory failure secondary to above. is following in pulmonology consultation. - Nonocclusive deep venous thrombosis bilateral upper extremities. Continue Eliquis. - Acute on chronic diastolic congestive heart failure, continue gentle diuresis , continue to monitor electrolytes. - h/o fungal pneumonia, on maintenance voriconazole - CAD, continue aspirin. - Hyperlipidemia, continue statin - Hypothyroidism, continue levothyroxine. Further recommendations based on clinical course. Plan of care discussed with Dr. Lincoln. Problems: Exam/Review of Systems Vital Signs Vitals Vital Signs Date Time Temp Pulse Resp B/P Pulse Ox O2 Delivery O2 Flow Rate FiO2 02/21/17 16:17 82 02/21/17 15:54 98.1 18 128/72 92 02/21/17 14:34 Nasal Cannula 5.0 02/20/17 03:15 60 Intake and Output 02/20/17 02/20/17 02/21/17 14:59 22:59 06:59 Intake Total 950 ml 200 ml Output Total 100 ml Balance -100 ml 950 ml 200 ml Exam Constitutional: alert Neck: supple Respiratory: diminished breath sounds Cardiovascular: nl pulses Gastrointestinal: non-tender, soft Extremities: edema Results Result Diagram: 02/21/17 0659 02/21/17 0657 Results 24 hrs Laboratory Tests Test 02/21/17 06:57 02/21/17 06:59 Sodium Level 138 Potassium Level 3.9 Chloride Level 94 L Carbon Dioxide Level 42 *H Anion Gap 6 L Blood Urea Nitrogen 17 Creatinine 1.28 H Glucose Level 83 Calcium Level 8.7 Total Bilirubin 0.3 Direct Bilirubin 0.00 Indirect Bilirubin 0.3 Aspartate Amino Transf (AST/SGOT) 31 Alanine Aminotransferase (ALT/SGPT) 29 Alkaline Phosphatase 70 Total Protein 5.6 L Albumin 3.2 L Globulin 2.40 Albumin/Globulin Ratio 1.33 White Blood Count 5.6 Red Blood Count 2.86 L Hemoglobin 9.0 L Hematocrit 30.0 L Mean Corpuscular Volume 104.9 H Mean Corpuscular Hemoglobin 31.5 Mean Corpuscular Hemoglobin Concent 30.0 L Red Cell Distribution Width 15.0 H Platelet Count 133 L Mean Platelet Volume 11.2 H Neutrophils % 70.3 Lymphocytes % 13.4 L Monocytes % 12.9 H Eosinophils % 2.5 Basophils % 0.5 Nucleated Red Blood Cells % 0.0 Neutrophils # 3.9 Lymphocytes # 0.8 Monocytes # 0.7 Eosinophils # 0.1 Basophils # 0.0 Nucleated Red Blood Cells # 0.0 Medications Medications Current Medications Atorvastatin Calcium (Lipitor) 20 mg QHS PO Last administered on 02/19/17 21: 30; Admin Dose 20 MG; Start 01/31/17 at 21:00 Escitalopram Oxalate (Lexapro) 10 mg DAILY PO Last administered on 02/21/17 09 :28; Admin Dose 10 MG; Start 02/01/17 at 09:00 Ondansetron HCl (Zofran Inj) 4 mg Q6 PRN IV NAUSEA Last administered on 17:40; Admin Dose 4 MG; Start 01/31/17 at 19:30 Morphine Sulfate (Ms Contin (Er)) 15 mg BID PO Last administered on 02/21/17 09:30; Admin Dose 15 MG; Start 01/31/17 at 23:00 Morphine Sulfate (morphine) 4 mg Q4H PRN IV SEVERE PAIN LEVEL 7-10 Last administered on 02/21/17 17:44; Admin Dose 4 MG; Start 01/31/17 at 23:00 Nitroglycerin (Nitroglycerin (Sl Tab) 0.4 Mg) 1 tab Q5M PRN SL ANGINA Last administered on 02/19/17 19:48; Admin Dose 1 TAB; Start 02/01/17 at 11:30 Pantoprazole (Protonix Tab) 40 mg DAILY@06 PO Last administered on 02/21/17 06 :38; Admin Dose 40 MG; Start 02/02/17 at 06:00 Voriconazole (Vfend) 200 mg BID PO Last administered on 02/21/17 09:28; Admin Dose 200 MG; Start 02/01/17 at 21:00 Senna (Senokot) 1 tab DAILY PRN PO CONSTIPATION Last administered on 02/03/17 20:36; Admin Dose 1 TAB; Start 02/02/17 at 16:00 Lactulose (Enulose) 20 gm DAILY PRN PO CONSTIPATION; Start 02/02/17 at 16:00 IV Flush (NS 10 ml) 10 ml PRN PRN IV IV PROTOCOL; Start 02/06/17 at 20:00 Oxymetazoline HCl (Afrin [place]) 2 spray BID NASAL Last administered on 09:27; Admin Dose 2 SPRAY; Start 02/07/17 at 15:00 Apixaban (Eliquis) 5 mg BID PO Last administered on 02/21/17 09:28; Admin Dose 5 MG; Start 02/21/17 at 09:00 Furosemide (Lasix) 40 mg DAILY PO Last administered on 02/21/17 09:29; Admin Dose 40 MG; Start 02/19/17 at 09:00 LUBA EARLY Feb 21, 2017 18:13
--- NOTE | 2017-02-21 18:16 | CONS ---
Date/Time of Note Date/Time of Note DATE: 02/21/17 TIME: 18:15 Assessment/Plan Assessment/Plan Chief Complaint/Hosp Course metastatic lung CANCER, NSCLC - ON CHEMO WITH RELATIVELY STABLE DIS D/W PULM AND RADIOLOGIST CHEMO ON HOLD DURING HOSPITALIZATION HX PANCYTOPENIA POST CHEMO MONITOR BLOOD COUNT CLOSELY LEUKOCYTOSIS PROB 2 TO POST OBSTRUCTIVE PNA HX LEUKOPENIA- POST CHEMO POST NEUPOGEN IN THE PAST PAIN PAIN CONTROL CHF, FLUID OVERLOAD GENTLE DIURESIS, CONSIDERING BORDERLINE BP POST Hypoxemic respiratory failure IN AUG 2016 , reaction to CARBO severe pneumonia/bronchitis due to enterobacter (09/22/2016-) HX DVT TREATED WITH LOVENOX PT SELF- DC 2 TO HEMOPTYSIS OUTPT History of coronary artery disease. Chronic obstructive pulmonary disease HX TOBACCO SMOKING Problems: Consultation Date/Type/Reason Admit Date/Time Jan 31, 2017 at 18:59 Initial Consult Date 01/31/17 Type of Consultation: [facility] [place] Referring Provider: MARYAM FARMER MD 24 HR Interval Summary Free Text/Dictation ALL NOTED Exam/Review of Systems Vital Signs Vitals Vital Signs Date Time Temp Pulse Resp B/P Pulse Ox O2 Delivery O2 Flow Rate FiO2 02/21/17 16:17 82 02/21/17 15:54 98.1 18 128/72 92 02/21/17 14:34 Nasal Cannula 5.0 02/20/17 03:15 60 Intake and Output 02/20/17 02/20/17 02/21/17 15:00 23:00 07:00 Intake Total 950 ml 200 ml Output Total 100 ml Balance -100 ml 950 ml 200 ml Exam GENERAL: The patient is alert, awake, complaining of chest pain, shortness of breath. NECK: JVP approximately 9 cm water. CHEST: Upper airway transmitted diffuse rhonchorous sounds. Decreased breath sounds at the bases bilaterally. HEART: Regular rate and rhythm. Normal S1, increased S2. 1/6 systolic murmur. Nondisplaced PMI. ABDOMEN: Positive bowel sounds. Soft. EXTREMITIES: 2 + edema, up and lower extremities bilaterally. 1+ pulses bilateral posterior tibial. Results Result Diagram: 02/21/17 0659 02/21/17 0657 Results 24 hrs Laboratory Tests Test 02/21/17 06:57 02/21/17 06:59 Sodium Level 138 Potassium Level 3.9 Chloride Level 94 L Carbon Dioxide Level 42 *H Anion Gap 6 L Blood Urea Nitrogen 17 Creatinine 1.28 H Glucose Level 83 Calcium Level 8.7 Total Bilirubin 0.3 Direct Bilirubin 0.00 Indirect Bilirubin 0.3 Aspartate Amino Transf (AST/SGOT) 31 Alanine Aminotransferase (ALT/SGPT) 29 Alkaline Phosphatase 70 Total Protein 5.6 L Albumin 3.2 L Globulin 2.40 Albumin/Globulin Ratio 1.33 White Blood Count 5.6 Red Blood Count 2.86 L Hemoglobin 9.0 L Hematocrit 30.0 L Mean Corpuscular Volume 104.9 H Mean Corpuscular Hemoglobin 31.5 Mean Corpuscular Hemoglobin Concent 30.0 L Red Cell Distribution Width 15.0 H Platelet Count 133 L Mean Platelet Volume 11.2 H Neutrophils % 70.3 Lymphocytes % 13.4 L Monocytes % 12.9 H Eosinophils % 2.5 Basophils % 0.5 Nucleated Red Blood Cells % 0.0 Neutrophils # 3.9 Lymphocytes # 0.8 Monocytes # 0.7 Eosinophils # 0.1 Basophils # 0.0 Nucleated Red Blood Cells # 0.0 Medications Medications Current Medications Atorvastatin Calcium (Lipitor) 20 mg QHS PO Last administered on 02/19/17 21: 30; Admin Dose 20 MG; Start 01/31/17 at 21:00 Escitalopram Oxalate (Lexapro) 10 mg DAILY PO Last administered on 02/21/17 09 :28; Admin Dose 10 MG; Start 02/01/17 at 09:00 Ondansetron HCl (Zofran Inj) 4 mg Q6 PRN IV NAUSEA Last administered on 17:40; Admin Dose 4 MG; Start 01/31/17 at 19:30 Morphine Sulfate (Ms Contin (Er)) 15 mg BID PO Last administered on 02/21/17 09:30; Admin Dose 15 MG; Start 01/31/17 at 23:00 Morphine Sulfate (morphine) 4 mg Q4H PRN IV SEVERE PAIN LEVEL 7-10 Last administered on 02/21/17 17:44; Admin Dose 4 MG; Start 01/31/17 at 23:00 Nitroglycerin (Nitroglycerin (Sl Tab) 0.4 Mg) 1 tab Q5M PRN SL ANGINA Last administered on 02/19/17 19:48; Admin Dose 1 TAB; Start 02/01/17 at 11:30 Pantoprazole (Protonix Tab) 40 mg DAILY@06 PO Last administered on 02/21/17 06 :38; Admin Dose 40 MG; Start 02/02/17 at 06:00 Voriconazole (Vfend) 200 mg BID PO Last administered on 02/21/17 09:28; Admin Dose 200 MG; Start 02/01/17 at 21:00 Senna (Senokot) 1 tab DAILY PRN PO CONSTIPATION Last administered on 02/03/17 20:36; Admin Dose 1 TAB; Start 02/02/17 at 16:00 Lactulose (Enulose) 20 gm DAILY PRN PO CONSTIPATION; Start 02/02/17 at 16:00 IV Flush (NS 10 ml) 10 ml PRN PRN IV IV PROTOCOL; Start 02/06/17 at 20:00 Oxymetazoline HCl (Afrin [place]) 2 spray BID NASAL Last administered on 09:27; Admin Dose 2 SPRAY; Start 02/07/17 at 15:00 Apixaban (Eliquis) 5 mg BID PO Last administered on 02/21/17 09:28; Admin Dose 5 MG; Start 02/21/17 at 09:00 Furosemide (Lasix) 40 mg DAILY PO Last administered on 02/21/17 09:29; Admin Dose 40 MG; Start 02/19/17 at 09:00 DAHIANA BABCOCK MD Feb 21, 2017 18:16
--- NOTE | 2017-02-21 19:22 | CONS ---
Date/Time of Note Date/Time of Note DATE: 02/21/17 TIME: 19:20 Assessment/Plan Assessment/Plan Additional Assessment/Plan 1. Anasarca- Fluid overload multifactorial s/p Diuresis with IV lasix and IV albumin 2. acute kidney injury 3. post obstructive PNA 4. Advanced non small lung CA 5. acute respiratory failure 6. Right subclavian Deep venous thrombosis 7. acute on chronic diastolic heart failure 8. h/o fungal pneumonia 9. Hyperlipidemia 10. hypothyroidism Plan: continue current care s/p IV albumin with Lasix diureisis- Cr 1.28 today -HCo3 trended up to 42 again today, pt is on PO lasix 40mg po daily-- will give acetazolamide 250mg pO x 1 dose today IV abx as per ID and PMD, renally dose all abx Will follow up on Eliquis for DVT for right subclavian DVT. Monitor Electroltyes and replace as needed. Consultation Date/Type/Reason Admit Date/Time Jan 31, 2017 at 18:59 Initial Consult Date 02/14/17 Type of Consultation: NEPHROLOGY Referring Provider: MARYAM FARMER MD Exam/Review of Systems Vital Signs Vitals Vital Signs Date Time Temp Pulse Resp B/P Pulse Ox O2 Delivery O2 Flow Rate FiO2 02/21/17 16:17 82 02/21/17 15:54 98.1 18 128/72 92 02/21/17 14:34 Nasal Cannula 5.0 02/20/17 03:15 60 Intake and Output 02/20/17 02/20/17 02/21/17 15:00 23:00 07:00 Intake Total 950 ml 200 ml Output Total 100 ml Balance -100 ml 950 ml 200 ml Exam Constitutional: alert Respiratory: clear to auscultation, diminished breath sounds, normal air movement Cardiovascular: nl pulses, regular rate and rhythm Gastrointestinal: non-tender, soft Musculoskeletal: other (gernalised anasarca, 1-2+ edema ) Neurological: CONTROL SYSTEM MANAGER II-XII intact, nl mental status Results Result Diagram: 02/21/17 0659 02/21/17 0657 Results 24 hrs Laboratory Tests Test 02/21/17 06:57 02/21/17 06:59 Sodium Level 138 Potassium Level 3.9 Chloride Level 94 L Carbon Dioxide Level 42 *H Anion Gap 6 L Blood Urea Nitrogen 17 Creatinine 1.28 H Glucose Level 83 Calcium Level 8.7 Total Bilirubin 0.3 Direct Bilirubin 0.00 Indirect Bilirubin 0.3 Aspartate Amino Transf (AST/SGOT) 31 Alanine Aminotransferase (ALT/SGPT) 29 Alkaline Phosphatase 70 Total Protein 5.6 L Albumin 3.2 L Globulin 2.40 Albumin/Globulin Ratio 1.33 White Blood Count 5.6 Red Blood Count 2.86 L Hemoglobin 9.0 L Hematocrit 30.0 L Mean Corpuscular Volume 104.9 H Mean Corpuscular Hemoglobin 31.5 Mean Corpuscular Hemoglobin Concent 30.0 L Red Cell Distribution Width 15.0 H Platelet Count 133 L Mean Platelet Volume 11.2 H Neutrophils % 70.3 Lymphocytes % 13.4 L Monocytes % 12.9 H Eosinophils % 2.5 Basophils % 0.5 Nucleated Red Blood Cells % 0.0 Neutrophils # 3.9 Lymphocytes # 0.8 Monocytes # 0.7 Eosinophils # 0.1 Basophils # 0.0 Nucleated Red Blood Cells # 0.0 Medications Medications Current Medications Atorvastatin Calcium (Lipitor) 20 mg QHS PO Last administered on 02/19/17 21: 30; Admin Dose 20 MG; Start 01/31/17 at 21:00 Escitalopram Oxalate (Lexapro) 10 mg DAILY PO Last administered on 02/21/17 09 :28; Admin Dose 10 MG; Start 02/01/17 at 09:00 Ondansetron HCl (Zofran Inj) 4 mg Q6 PRN IV NAUSEA Last administered on 17:40; Admin Dose 4 MG; Start 01/31/17 at 19:30 Morphine Sulfate (Ms Contin (Er)) 15 mg BID PO Last administered on 02/21/17 09:30; Admin Dose 15 MG; Start 01/31/17 at 23:00 Morphine Sulfate (morphine) 4 mg Q4H PRN IV SEVERE PAIN LEVEL 7-10 Last administered on 02/21/17 17:44; Admin Dose 4 MG; Start 01/31/17 at 23:00 Nitroglycerin (Nitroglycerin (Sl Tab) 0.4 Mg) 1 tab Q5M PRN SL ANGINA Last administered on 02/19/17 19:48; Admin Dose 1 TAB; Start 02/01/17 at 11:30 Pantoprazole (Protonix Tab) 40 mg DAILY@06 PO Last administered on 02/21/17 06 :38; Admin Dose 40 MG; Start 02/02/17 at 06:00 Voriconazole (Vfend) 200 mg BID PO Last administered on 02/21/17 09:28; Admin Dose 200 MG; Start 02/01/17 at 21:00 Senna (Senokot) 1 tab DAILY PRN PO CONSTIPATION Last administered on 02/03/17 20:36; Admin Dose 1 TAB; Start 02/02/17 at 16:00 Lactulose (Enulose) 20 gm DAILY PRN PO CONSTIPATION; Start 02/02/17 at 16:00 IV Flush (NS 10 ml) 10 ml PRN PRN IV IV PROTOCOL; Start 02/06/17 at 20:00 Oxymetazoline HCl (Afrin [place]) 2 spray BID NASAL Last administered on 09:27; Admin Dose 2 SPRAY; Start 02/07/17 at 15:00 Apixaban (Eliquis) 5 mg BID PO Last administered on 02/21/17 09:28; Admin Dose 5 MG; Start 02/21/17 at 09:00 Furosemide (Lasix) 40 mg DAILY PO Last administered on 02/21/17 09:29; Admin Dose 40 MG; Start 02/19/17 at 09:00 MELODY JENSEN MD Feb 21, 2017 19:22
[2017-02-21] MEDS ORDERED: ACETAZOLAMIDE 250 MG TAB PO ONE (19:30)
[2017-02-21] MEDS: ATORVASTATIN 20 MG TAB PO SCH (21:05)
[2017-02-22] VITALS (16 sets, daily range): BP systolic 95–125; BP diastolic 51–78; PULSE 80–91; RESP 18–20
[2017-02-22] MEDS: LEVALBUTEROL (NEB) 0.63 MG/3 ML AMP HHN SCH ×4 (01:01→20:34)
[2017-02-22] MEDS: PANTOPRAZOLE (EC) 40 MG TAB PO SCH (05:59)
[2017-02-22] MEDS: LEVOTHYROXINE 75 MCG TAB PO SCH (05:59)
[2017-02-22 07:22] LABS: BASOPHILS % 0.4 % (0.0-2.0); EOSINOPHILS # 0.2 10^3/ul (0.0-0.5); EOSINOPHILS % 4.8 % (0.0-7.0); HEMOGLOBIN 9.3 g/dl (14.0-18.0); LYMPHOCYTES # 0.8 10^3/ul (0.8-2.9); LYMPHOCYTES % 17.8 % (15.0-51.0); MEAN CORPUSCULAR HEMOGLOBIN 31.6 pg (29.0-33.0); MEAN CORPUSCULAR VOLUME 105.4 fl (82.0-101.0); MEAN PLATELET VOLUME 11.1 fl (7.4-10.4); MONOCYTE # 0.6 10^3/ul (0.3-0.9); MONOCYTES % 13.7 % (0.0-11.0); NEUTROPHIL # 2.9 10^3/ul (1.6-7.5); NEUTROPHILS % 63.1 % (39.0-77.0); PLATELET COUNT 132 10^3/UL (140-415); POSITIVE DIFF @See below; RED BLOOD COUNT 2.94 10^6/ul (4.70-6.10); RED CELL DISTRIBUTION WIDTH 14.8 % (11.5-14.5); WHITE BLOOD COUNT 4.5 10^3/ul (4.8-10.8)
[2017-02-22] MEDS: DRONABINOL 2.5 MG CAP PO SCH ×3 (07:30→17:27)
[2017-02-22 07:46] LABS: CALCIUM 8.8 mg/dl (8.4-10.2); CREATININE 1.41 mg/dl (0.61-1.24); POTASSIUM 3.5 mmol/L (3.5-5.1)
[2017-02-22] MEDS: ESCITALOPRAM 10 MG TAB PO SCH (08:07)
[2017-02-22] MEDS: APIXABAN 5 MG TABLET PO SCH ×2 (08:07→21:49)
[2017-02-22] MEDS: morphine (ER) 15 MG TAB PO SCH ×2 (08:08→21:49)
[2017-02-22] MEDS: FUROSEMIDE 40 MG TAB PO SCH (08:08)
[2017-02-22] MEDS: VORICONAZOLE 200 MG TAB PO SCH ×2 (08:08→21:49)
[2017-02-22] MEDS: OXYMETAZOLINE 0.05% 15 ML NAS SPRAY NASAL SCH ×2 (08:08→21:56)
[2017-02-22] MEDS: morphine 4 MG/ML VIAL IV PRN ×2 (08:09→12:00)
--- NOTE | 2017-02-22 10:27 | CONS ---
Date/Time of Note Date/Time of Note DATE: 02/22/17 TIME: 10:24 Assessment/Plan Assessment/Plan Additional Assessment/Plan Assessment and recommendations; 1. Patient admitted with right-sided pneumonia likely due to significant post obstructive component from widely metastatic non-small cell lung cancer. Off antimicrobials except for antifungal treatment. 2. COPD. 3. Morbid obesity. 4. Chronic renal insufficiency. 5. Acute DVT involving left upper extremity 6. Off BiPAP. Continue current treatment. Consider discharge to long-term/rehab. Prognosis remains poor. Consultation Date/Type/Reason Admit Date/Time Jan 31, 2017 at 18:59 Initial Consult Date 02/01/17 Type of Consultation: Pulmonary/critical care Referring Provider: MARYAM FARMER MD 24 HR Interval Summary Free Text/Dictation Patient condition has stabilized. He is now not requiring any further BiPAP. Still complains of hemoptysis off and on. General exam; elderly male, morbidly obese, currently in no distress. Awake and alert. Exam/Review of Systems Vital Signs Vitals Vital Signs Date Time Temp Pulse Resp B/P Pulse Ox O2 Delivery O2 Flow Rate FiO2 02/22/17 08:14 83 02/22/17 08:04 97.9 20 125/78 99 02/22/17 08:00 Nasal Cannula 3.0 02/22/17 05:20 60 Intake and Output 02/21/17 02/21/17 02/22/17 15:00 23:00 07:00 Intake Total 1000 ml Balance 1000 ml Exam HEENT exam; supple neck, patient is alopecia. Has fair dentition. Pharynx is clear. No neck masses. No thyromegaly. Chest exam; diminished breath sounds right lung. Left lung is clear to auscultation. S1-S2 audible, no murmurs. Regular rhythm. Abdomen exam; protuberant. Nontender. Bowel sounds audible. Extremity exam; no edema. PAINTING CONTRACTOR exam; no focal motor deficit. Results Result Diagram: 02/22/1752602/22/17526 Results 24 hrs Laboratory Tests Test 02/22/17 05:27 White Blood Count 4.5 L Red Blood Count 2.94 L Hemoglobin 9.3 L Hematocrit 31.0 L Mean Corpuscular Volume 105.4 H Mean Corpuscular Hemoglobin 31.6 Mean Corpuscular Hemoglobin Concent 30.0 L Red Cell Distribution Width 14.8 H Platelet Count 132 L Mean Platelet Volume 11.1 H Neutrophils % 63.1 Lymphocytes % 17.8 Monocytes % 13.7 H Eosinophils % 4.8 Basophils % 0.4 Nucleated Red Blood Cells % 0.0 Neutrophils # 2.9 Lymphocytes # 0.8 Monocytes # 0.6 Eosinophils # 0.2 Basophils # 0.0 Nucleated Red Blood Cells # 0.0 Sodium Level 137 Potassium Level 3.5 Chloride Level 93 L Carbon Dioxide Level 45 *H Anion Gap 3 L Blood Urea Nitrogen 16 Creatinine 1.41 H Glucose Level 82 Calcium Level 8.8 Medications Medications Current Medications Atorvastatin Calcium (Lipitor) 20 mg QHS PO Last administered on 02/21/17 21: 05; Admin Dose 20 MG; Start 01/31/17 at 21:00 Escitalopram Oxalate (Lexapro) 10 mg DAILY PO Last administered on 02/22/17 08 :07; Admin Dose 10 MG; Start 02/01/17 at 09:00 Ondansetron HCl (Zofran Inj) 4 mg Q6 PRN IV NAUSEA Last administered on 17:40; Admin Dose 4 MG; Start 01/31/17 at 19:30 Morphine Sulfate (Ms Contin (Er)) 15 mg BID PO Last administered on 02/22/17 08:08; Admin Dose 15 MG; Start 01/31/17 at 23:00 Morphine Sulfate (morphine) 4 mg Q4H PRN IV SEVERE PAIN LEVEL 7-10 Last administered on 02/22/17 08:09; Admin Dose 4 MG; Start 01/31/17 at 23:00 Nitroglycerin (Nitroglycerin (Sl Tab) 0.4 Mg) 1 tab Q5M PRN SL ANGINA Last administered on 02/19/17 19:48; Admin Dose 1 TAB; Start 02/01/17 at 11:30 Pantoprazole (Protonix Tab) 40 mg DAILY@06 PO Last administered on 02/22/17 05 :59; Admin Dose 40 MG; Start 02/02/17 at 06:00 Voriconazole (Vfend) 200 mg BID PO Last administered on 02/22/17 08:08; Admin Dose 200 MG; Start 02/01/17 at 21:00 Senna (Senokot) 1 tab DAILY PRN PO CONSTIPATION Last administered on 02/03/17 20:36; Admin Dose 1 TAB; Start 02/02/17 at 16:00 Lactulose (Enulose) 20 gm DAILY PRN PO CONSTIPATION; Start 02/02/17 at 16:00 IV Flush (NS 10 ml) 10 ml PRN PRN IV IV PROTOCOL; Start 02/06/17 at 20:00 Oxymetazoline HCl (Afrin [place]) 2 spray BID NASAL Last administered on 08:08; Admin Dose 2 SPRAY; Start 02/07/17 at 15:00 Apixaban (Eliquis) 5 mg BID PO Last administered on 02/22/17 08:07; Admin Dose 5 MG; Start 02/21/17 at 09:00 Furosemide (Lasix) 40 mg DAILY PO Last administered on 02/22/17 08:08; Admin Dose 40 MG; Start 02/19/17 at 09:00 ISMA CUTLER Feb 22, 2017 10:27
--- NOTE | 2017-02-22 12:33 | CONS ---
Date/Time of Note Date/Time of Note DATE: 02/22/17 TIME: 12:32 Assessment/Plan Assessment/Plan Additional Assessment/Plan 1. Chest pain. Assess for acute coronary syndrome in a patient with lung cancer, undergoing chemotherapy, likely secondary to lung cancer.-negative trop x3 - NO INTERVENTION PLANNED NOW - better now - STABLE 2. Abnormal electrocardiogram with nonspecific ST and T-wave abnormalities, assess for acute coronary syndrome. 3. Bradycardia, transient while on beta matthew. NO indication for pacer now.STABLE GR. 4. Hypotension-improved 5. Shortness of [id number] PNA - on anti-Bx 6. Lung cancer with ongoing chemotherapy- oncology team follows 7. Leukocytosis. 8. Anemia. 9. Thrombocytopenia-stable 10. Possible ileus by KUB 11.DVT-UE around piccline Consultation Date/Type/Reason Admit Date/Time Jan 31, 2017 at 18:59 Initial Consult Date 02/01/17 Type of Consultation: Pulmonary/critical care Referring Provider: MARYAM FARMER MD 24 HR Interval Summary Free Text/Dictation NO acute events - will monitor clinically ROS: No fever, no chills, no nausea, no vomiting, no diarrhea/constipation No recent weight changes No chest pain, no PND, no orthopnea + SOB No dizziness, blurred vision No thirst, no heat or cold intolerance Exam/Review of Systems Vital Signs Vitals Vital Signs Date Time Temp Pulse Resp B/P Pulse Ox O2 Delivery O2 Flow Rate FiO2 02/22/17 12:12 84 02/22/17 11:41 98.3 18 103/65 98 02/22/17 08:00 Nasal Cannula 3.0 02/22/17 05:20 60 Intake and Output 02/21/17 02/21/17 02/22/17 15:00 23:00 07:00 Intake Total 1000 ml Balance 1000 ml Exam General: WN/WD/NAD, AOx 2-3 HEENT: Unicetric/atraumatic/EOMI ( follow commands) NECK: JVD elevated, no thyromegaly Lymph: no lymphadenopathy HEART: regular with no S3, II/ systolic murmur at apex LUNGS: Coarse sounds ABD: soft, NT, ND, +BS : Intact Neuro: non focal SKIN: chronic changes EXT: trace edema Results Result Diagram: 9/28/17 0527 9/28/17 0527 Results 24 hrs Laboratory Tests Test 02/22/17 05:27 White Blood Count 4.5 L Red Blood Count 2.94 L Hemoglobin 9.3 L Hematocrit 31.0 L Mean Corpuscular Volume 105.4 H Mean Corpuscular Hemoglobin 31.6 Mean Corpuscular Hemoglobin Concent 30.0 L Red Cell Distribution Width 14.8 H Platelet Count 132 L Mean Platelet Volume 11.1 H Neutrophils % 63.1 Lymphocytes % 17.8 Monocytes % 13.7 H Eosinophils % 4.8 Basophils % 0.4 Nucleated Red Blood Cells % 0.0 Neutrophils # 2.9 Lymphocytes # 0.8 Monocytes # 0.6 Eosinophils # 0.2 Basophils # 0.0 Nucleated Red Blood Cells # 0.0 Sodium Level 137 Potassium Level 3.5 Chloride Level 93 L Carbon Dioxide Level 45 *H Anion Gap 3 L Blood Urea Nitrogen 16 Creatinine 1.41 H Glucose Level 82 Calcium Level 8.8 Medications Medications Current Medications Atorvastatin Calcium (Lipitor) 20 mg QHS PO Last administered on 02/21/17 21: 05; Admin Dose 20 MG; Start 01/31/17 at 21:00 Escitalopram Oxalate (Lexapro) 10 mg DAILY PO Last administered on 02/22/17 08 :07; Admin Dose 10 MG; Start 02/01/17 at 09:00 Ondansetron HCl (Zofran Inj) 4 mg Q6 PRN IV NAUSEA Last administered on 17:40; Admin Dose 4 MG; Start 01/31/17 at 19:30 Morphine Sulfate (Ms Contin (Er)) 15 mg BID PO Last administered on 02/22/17 08:08; Admin Dose 15 MG; Start 01/31/17 at 23:00 Morphine Sulfate (morphine) 4 mg Q4H PRN IV SEVERE PAIN LEVEL 7-10 Last administered on 02/22/17 12:00; Admin Dose 4 MG; Start 01/31/17 at 23:00 Nitroglycerin (Nitroglycerin (Sl Tab) 0.4 Mg) 1 tab Q5M PRN SL ANGINA Last administered on 02/19/17 19:48; Admin Dose 1 TAB; Start 02/01/17 at 11:30 Pantoprazole (Protonix Tab) 40 mg DAILY@06 PO Last administered on 02/22/17 05 :59; Admin Dose 40 MG; Start 02/02/17 at 06:00 Voriconazole (Vfend) 200 mg BID PO Last administered on 02/22/17 08:08; Admin Dose 200 MG; Start 02/01/17 at 21:00 Senna (Senokot) 1 tab DAILY PRN PO CONSTIPATION Last administered on 02/03/17 20:36; Admin Dose 1 TAB; Start 02/02/17 at 16:00 Lactulose (Enulose) 20 gm DAILY PRN PO CONSTIPATION; Start 02/02/17 at 16:00 IV Flush (NS 10 ml) 10 ml PRN PRN IV IV PROTOCOL; Start 02/06/17 at 20:00 Oxymetazoline HCl (Afrin [place]) 2 spray BID NASAL Last administered on 08:08; Admin Dose 2 SPRAY; Start 02/07/17 at 15:00 Apixaban (Eliquis) 5 mg BID PO Last administered on 02/22/17 08:07; Admin Dose 5 MG; Start 02/21/17 at 09:00 Furosemide (Lasix) 40 mg DAILY PO Last administered on 02/22/17 08:08; Admin Dose 40 MG; Start 02/19/17 at 09:00 Acetazolamide (Diamox) 500 mg Q12 IV ; Start 02/22/17 at 12:00 FRANCIS ESPINAL MD Feb 22, 2017 12:33
[2017-02-22] MEDS: ACETAZOLAMIDE 500 MG INJ IV SCH ×2 (16:19→21:50)
--- NOTE | 2017-02-22 18:42 | CONS ---
Date/Time of Note Date/Time of Note DATE: 02/22/17 TIME: 18:41 Assessment/Plan Assessment/Plan Chief Complaint/Hosp Course - h/o sepsis due to recurrent pneumonia, and to a lessor degree due to paronychia. 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 Aspergillus antibody was >1:64 but aspergillus antigen in serum by EIA was negative during his last admission. 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 Scanlon Problems: Consultation Date/Type/Reason Admit Date/Time Jan 31, 2017 at 18:59 Initial Consult Date 02/14/17 Type of Consultation: ID Referring Provider: MARYAM FARMER MD Detailed Summary Eyes: no complaints ENT: no complaints Respiratory: cough, shortness of breath, No pain, No sputum, No wheezing Cardiovascular: no complaints Gastrointestinal: no complaints Genitourinary: no complaints Musculoskeletal: no complaints Skin: skin lesions (lost L 2nd fingernail, but painless. nail changes due to chemo) Neurologic: no complaints Exam/Review of Systems Vital Signs Vitals Vital Signs Date Time Temp Pulse Resp B/P Pulse Ox O2 Delivery O2 Flow Rate FiO2 02/22/17 16:21 87 02/22/17 16:10 98.6 18 116/56 98 02/22/17 13:30 Nasal Cannula 4.0 02/22/17 05:20 60 Intake and Output 02/21/17 02/21/17 02/22/17 15:00 23:00 07:00 Intake Total 1000 ml Balance 1000 ml Exam Psych: no complaints Head: other (alopecia) Eyes: nl conjunctiva, nl lids ENMT: nl external ears & nose Respiratory: crackles/rales Cardiovascular: nl pulses, regular rate and rhythm Gastrointestinal: non-tender, soft Musculoskeletal: nl extremities to inspection Extremities: edema Neurological: FRUIT INSPECTOR II-XII intact, nl mental status, nl speech, nl strength Skin: other (crust of L 2nd fingernail, non-TTP. non purulent) Results Result Diagram: 02/22/1727 02/22/17 0527 Results 24 hrs Laboratory Tests Test 02/22/17 05:27 White Blood Count 4.5 L Red Blood Count 2.94 L Hemoglobin 9.3 L Hematocrit 31.0 L Mean Corpuscular Volume 105.4 H Mean Corpuscular Hemoglobin 31.6 Mean Corpuscular Hemoglobin Concent 30.0 L Red Cell Distribution Width 14.8 H Platelet Count 132 L Mean Platelet Volume 11.1 H Neutrophils % 63.1 Lymphocytes % 17.8 Monocytes % 13.7 H Eosinophils % 4.8 Basophils % 0.4 Nucleated Red Blood Cells % 0.0 Neutrophils # 2.9 Lymphocytes # 0.8 Monocytes # 0.6 Eosinophils # 0.2 Basophils # 0.0 Nucleated Red Blood Cells # 0.0 Sodium Level 137 Potassium Level 3.5 Chloride Level 93 L Carbon Dioxide Level 45 *H Anion Gap 3 L Blood Urea Nitrogen 16 Creatinine 1.41 H Glucose Level 82 Calcium Level 8.8 Medications Medications Current Medications Atorvastatin Calcium (Lipitor) 20 mg QHS PO Last administered on 02/21/17 21: 05; Admin Dose 20 MG; Start 01/31/17 at 21:00 Escitalopram Oxalate (Lexapro) 10 mg DAILY PO Last administered on 02/22/17 08 :07; Admin Dose 10 MG; Start 02/01/17 at 09:00 Ondansetron HCl (Zofran Inj) 4 mg Q6 PRN IV NAUSEA Last administered on 17:40; Admin Dose 4 MG; Start 01/31/17 at 19:30 Morphine Sulfate (Ms Contin (Er)) 15 mg BID PO Last administered on 02/22/17 08:08; Admin Dose 15 MG; Start 01/31/17 at 23:00 Morphine Sulfate (morphine) 4 mg Q4H PRN IV SEVERE PAIN LEVEL 7-10 Last administered on 02/22/17 12:00; Admin Dose 4 MG; Start 01/31/17 at 23:00 Nitroglycerin (Nitroglycerin (Sl Tab) 0.4 Mg) 1 tab Q5M PRN SL ANGINA Last administered on 02/19/17 19:48; Admin Dose 1 TAB; Start 02/01/17 at 11:30 Pantoprazole (Protonix Tab) 40 mg DAILY@06 PO Last administered on 02/22/17 05 :59; Admin Dose 40 MG; Start 02/02/17 at 06:00 Voriconazole (Vfend) 200 mg BID PO Last administered on 02/22/17 08:08; Admin Dose 200 MG; Start 02/01/17 at 21:00 Senna (Senokot) 1 tab DAILY PRN PO CONSTIPATION Last administered on 02/03/17 20:36; Admin Dose 1 TAB; Start 02/02/17 at 16:00 Lactulose (Enulose) 20 gm DAILY PRN PO CONSTIPATION; Start 02/02/17 at 16:00 IV Flush (NS 10 ml) 10 ml PRN PRN IV IV PROTOCOL; Start 02/06/17 at 20:00 Oxymetazoline HCl (Afrin [place]) 2 spray BID NASAL Last administered on 08:08; Admin Dose 2 SPRAY; Start 02/07/17 at 15:00 Apixaban (Eliquis) 5 mg BID PO Last administered on 02/22/17 08:07; Admin Dose 5 MG; Start 02/21/17 at 09:00 Furosemide (Lasix) 40 mg DAILY PO Last administered on 02/22/17 08:08; Admin Dose 40 MG; Start 02/19/17 at 09:00 Acetazolamide (Diamox) 500 mg Q12 IV Last administered on 9/28/17at 16:19; Admin Dose 500 MG; Start 02/22/17 at 12:00 LUKE CAAL M.D. Feb 22, 2017 18:42
--- NOTE | 2017-02-22 19:08 | CONS ---
Date/Time of Note Date/Time of Note DATE: 02/22/17 TIME: 19:07 Assessment/Plan Assessment/Plan Chief Complaint/Hosp Course metastatic lung CANCER, NSCLC - ON CHEMO WITH RELATIVELY STABLE DIS D/W PULM AND RADIOLOGIST CHEMO ON HOLD DURING HOSPITALIZATION HX PANCYTOPENIA POST CHEMO MONITOR BLOOD COUNT CLOSELY LEUKOCYTOSIS PROB 2 TO POST OBSTRUCTIVE PNA HX LEUKOPENIA- POST CHEMO POST NEUPOGEN IN THE PAST RESPIRATORY INSUFFICIENCY ? rivas eval PAIN PAIN CONTROL CHF, FLUID OVERLOAD GENTLE DIURESIS, CONSIDERING BORDERLINE BP POST Hypoxemic respiratory failure IN AUG 2016 , reaction to CARBO severe pneumonia/bronchitis due to enterobacter (09/22/2016-) HX DVT TREATED WITH LOVENOX PT SELF- DC 2 TO HEMOPTYSIS OUTPT History of coronary artery disease. Chronic obstructive pulmonary disease HX TOBACCO SMOKING Problems: Consultation Date/Type/Reason Admit Date/Time Jan 31, 2017 at 18:59 Initial Consult Date 01/31/17 Type of Consultation: HEMEON Referring Provider: MARYAM FARMER MD 24 HR Interval Summary Free Text/Dictation ALL NOTED D/W ID Exam/Review of Systems Vital Signs Vitals Vital Signs Date Time Temp Pulse Resp B/P Pulse Ox O2 Delivery O2 Flow Rate FiO2 02/22/17 16:21 87 02/22/17 16:10 98.6 18 116/56 98 02/22/17 13:30 Nasal Cannula 4.0 02/22/17 05:20 60 Intake and Output 02/21/17 02/21/17 02/22/17 14:59 22:59 06:59 Intake Total 1000 ml Balance 1000 ml Exam GENERAL: The patient is alert, awake, complaining of chest pain, shortness of breath. NECK: JVP approximately 9 cm water. CHEST: Upper airway transmitted diffuse rhonchorous sounds. Decreased breath sounds at the bases bilaterally. HEART: Regular rate and rhythm. Normal S1, increased S2. 1/6 systolic murmur. Nondisplaced PMI. ABDOMEN: Positive bowel sounds. Soft. EXTREMITIES: 2 + edema, up and lower extremities bilaterally. 1+ pulses bilateral posterior tibial. Results Result Diagram: 02/22/1727 02/22/1727 Results 24 hrs Laboratory Tests Test 02/22/17 05:27 White Blood Count 4.5 L Red Blood Count 2.94 L Hemoglobin 9.3 L Hematocrit 31.0 L Mean Corpuscular Volume 105.4 H Mean Corpuscular Hemoglobin 31.6 Mean Corpuscular Hemoglobin Concent 30.0 L Red Cell Distribution Width 14.8 H Platelet Count 132 L Mean Platelet Volume 11.1 H Neutrophils % 63.1 Lymphocytes % 17.8 Monocytes % 13.7 H Eosinophils % 4.8 Basophils % 0.4 Nucleated Red Blood Cells % 0.0 Neutrophils # 2.9 Lymphocytes # 0.8 Monocytes # 0.6 Eosinophils # 0.2 Basophils # 0.0 Nucleated Red Blood Cells # 0.0 Sodium Level 137 Potassium Level 3.5 Chloride Level 93 L Carbon Dioxide Level 45 *H Anion Gap 3 L Blood Urea Nitrogen 16 Creatinine 1.41 H Glucose Level 82 Calcium Level 8.8 Medications Medications Current Medications Atorvastatin Calcium (Lipitor) 20 mg QHS PO Last administered on 02/21/17 21: 05; Admin Dose 20 MG; Start 01/31/17 at 21:00 Escitalopram Oxalate (Lexapro) 10 mg DAILY PO Last administered on 02/22/17 08 :07; Admin Dose 10 MG; Start 02/01/17 at 09:00 Ondansetron HCl (Zofran Inj) 4 mg Q6 PRN IV NAUSEA Last administered on 17:40; Admin Dose 4 MG; Start 01/31/17 at 19:30 Morphine Sulfate (Ms Contin (Er)) 15 mg BID PO Last administered on 02/22/17 08:08; Admin Dose 15 MG; Start 01/31/17 at 23:00 Morphine Sulfate (morphine) 4 mg Q4H PRN IV SEVERE PAIN LEVEL 7-10 Last administered on 02/22/17 12:00; Admin Dose 4 MG; Start 01/31/17 at 23:00 Nitroglycerin (Nitroglycerin (Sl Tab) 0.4 Mg) 1 tab Q5M PRN SL ANGINA Last administered on 02/19/17 19:48; Admin Dose 1 TAB; Start 02/01/17 at 11:30 Pantoprazole (Protonix Tab) 40 mg DAILY@06 PO Last administered on 02/22/17 05 :59; Admin Dose 40 MG; Start 02/02/17 at 06:00 Voriconazole (Vfend) 200 mg BID PO Last administered on 02/22/17 08:08; Admin Dose 200 MG; Start 02/01/17 at 21:00 Senna (Senokot) 1 tab DAILY PRN PO CONSTIPATION Last administered on 02/03/17 20:36; Admin Dose 1 TAB; Start 02/02/17 at 16:00 Lactulose (Enulose) 20 gm DAILY PRN PO CONSTIPATION; Start 02/02/17 at 16:00 IV Flush (NS 10 ml) 10 ml PRN PRN IV IV PROTOCOL; Start 02/06/17 at 20:00 Oxymetazoline HCl (Afrin [place]) 2 spray BID NASAL Last administered on 08:08; Admin Dose 2 SPRAY; Start 02/07/17 at 15:00 Apixaban (Eliquis) 5 mg BID PO Last administered on 02/22/17 08:07; Admin Dose 5 MG; Start 02/21/17 at 09:00 Furosemide (Lasix) 40 mg DAILY PO Last administered on 02/22/17 08:08; Admin Dose 40 MG; Start 02/19/17 at 09:00 Acetazolamide (Diamox) 500 mg Q12 IV Last administered on 02/22/17 16:19; Admin Dose 500 MG; Start 02/22/17 at 12:00 DAHIANA BABCOCK MD Feb 22, 2017 19:08
--- NOTE | 2017-02-22 21:09 | CONS ---
Date/Time of Note Date/Time of Note DATE: 02/22/17 TIME: 21:08 Assessment/Plan Assessment/Plan Additional Assessment/Plan 1. Anasarca- Fluid overload multifactorial s/p Diuresis with IV lasix and IV albumin 2. acute kidney injury 3. post obstructive PNA 4. Advanced non small lung CA 5. acute respiratory failure 6. Right subclavian Deep venous thrombosis 7. acute on chronic diastolic heart failure 8. h/o fungal pneumonia 9. Hyperlipidemia 10. hypothyroidism 11. Metabolic alkalosis Plan: continue current care s/p IV albumin with Lasix diureisis- Cr 1.41 today -HCo3 trending up- will start Diomax 500mg iV BID IV abx as per ID and PMD, renally dose all abx Will follow up on Eliquis for DVT for right subclavian DVT. Monitor Electroltyes and replace as needed. Consultation Date/Type/Reason Admit Date/Time Jan 31, 2017 at 18:59 Initial Consult Date 02/14/17 Type of Consultation: NEPHROLOGY Referring Provider: MARYAM FARMER MD Exam/Review of Systems Vital Signs Vitals Vital Signs Date Time Temp Pulse Resp B/P Pulse Ox O2 Delivery O2 Flow Rate FiO2 02/22/17 20:34 86 18 96 Nasal Cannula 4.0 02/22/17 19:59 98.4 95/51 02/22/17 05:20 60 Intake and Output 02/21/17 02/21/17 02/22/17 15:00 23:00 07:00 Intake Total 1000 ml Balance 1000 ml Results Result Diagram: 02/22/17 0527 02/22/17 0527 Results 24 hrs Laboratory Tests Test 02/22/17 05:27 White Blood Count 4.5 L Red Blood Count 2.94 L Hemoglobin 9.3 L Hematocrit 31.0 L Mean Corpuscular Volume 105.4 H Mean Corpuscular Hemoglobin 31.6 Mean Corpuscular Hemoglobin Concent 30.0 L Red Cell Distribution Width 14.8 H Platelet Count 132 L Mean Platelet Volume 11.1 H Neutrophils % 63.1 Lymphocytes % 17.8 Monocytes % 13.7 H Eosinophils % 4.8 Basophils % 0.4 Nucleated Red Blood Cells % 0.0 Neutrophils # 2.9 Lymphocytes # 0.8 Monocytes # 0.6 Eosinophils # 0.2 Basophils # 0.0 Nucleated Red Blood Cells # 0.0 Sodium Level 137 Potassium Level 3.5 Chloride Level 93 L Carbon Dioxide Level 45 *H Anion Gap 3 L Blood Urea Nitrogen 16 Creatinine 1.41 H Glucose Level 82 Calcium Level 8.8 Medications Medications Current Medications Atorvastatin Calcium (Lipitor) 20 mg QHS PO Last administered on 02/21/17 21: 05; Admin Dose 20 MG; Start 01/31/17 at 21:00 Escitalopram Oxalate (Lexapro) 10 mg DAILY PO Last administered on 02/22/17 08 :07; Admin Dose 10 MG; Start 02/01/17 at 09:00 Ondansetron HCl (Zofran Inj) 4 mg Q6 PRN IV NAUSEA Last administered on 17:40; Admin Dose 4 MG; Start 01/31/17 at 19:30 Morphine Sulfate (Ms Contin (Er)) 15 mg BID PO Last administered on 02/22/17 08:08; Admin Dose 15 MG; Start 01/31/17 at 23:00 Morphine Sulfate (morphine) 4 mg Q4H PRN IV SEVERE PAIN LEVEL 7-10 Last administered on 02/22/17 12:00; Admin Dose 4 MG; Start 01/31/17 at 23:00 Nitroglycerin (Nitroglycerin (Sl Tab) 0.4 Mg) 1 tab Q5M PRN SL ANGINA Last administered on 02/19/17 19:48; Admin Dose 1 TAB; Start 02/01/17 at 11:30 Pantoprazole (Protonix Tab) 40 mg DAILY@06 PO Last administered on 02/22/17 05 :59; Admin Dose 40 MG; Start 02/02/17 at 06:00 Voriconazole (Vfend) 200 mg BID PO Last administered on 02/22/17 08:08; Admin Dose 200 MG; Start 02/01/17 at 21:00 Senna (Senokot) 1 tab DAILY PRN PO CONSTIPATION Last administered on 02/03/17 20:36; Admin Dose 1 TAB; Start 02/02/17 at 16:00 Lactulose (Enulose) 20 gm DAILY PRN PO CONSTIPATION; Start 02/02/17 at 16:00 IV Flush (NS 10 ml) 10 ml PRN PRN IV IV PROTOCOL; Start 02/06/17 at 20:00 Oxymetazoline HCl (Afrin [place]) 2 spray BID NASAL Last administered on 08:08; Admin Dose 2 SPRAY; Start 02/07/17 at 15:00 Apixaban (Eliquis) 5 mg BID PO Last administered on 02/22/17 08:07; Admin Dose 5 MG; Start 02/21/17 at 09:00 Furosemide (Lasix) 40 mg DAILY PO Last administered on 02/22/17 08:08; Admin Dose 40 MG; Start 02/19/17 at 09:00 Acetazolamide (Diamox) 500 mg Q12 IV Last administered on 02/22/17 16:19; Admin Dose 500 MG; Start 02/22/17 at 12:00 MELODY JENSEN MD Feb 22, 2017 21:09
--- NOTE | 2017-02-22 21:47 | PN ---
Date/Time of Note Date/Time of Note DATE: 02/22/17 TIME: 21:46 Assessment/Plan Lines/Catheters IV Catheter Type (from [facility]): Peripheral IV Urinary Cath still in place: No Assessment/Plan Chief Complaint/Hosp Course - Problems: Assessment/Plan - LIZ, Dr. Irving is following in nephrology consultation. - Post-obstructive pneumonia Dr. Philly perry is following infection disease consultation. Status post treatment with antibiotics. - Advanced non-small cell lung CA, Dr. Scanlon is following in oncology consultation. - Acute respiratory failure secondary to above. is following in pulmonology consultation. - Nonocclusive deep venous thrombosis bilateral upper extremities. Continue Eliquis. - Acute on chronic diastolic congestive heart failure, continue gentle diuresis , continue to monitor electrolytes. - h/o fungal pneumonia, on maintenance voriconazole - CAD, continue aspirin. - Hyperlipidemia, continue statin - Hypothyroidism, continue levothyroxine. Further recommendations based on clinical course. Plan of care discussed with Dr. Lincoln. Subjective 24 Hr Interval Summary Free Text/Dictation Patient seen at 1420 Exam/Review of Systems Vital Signs Vitals Vital Signs Date Time Temp Pulse Resp B/P Pulse Ox O2 Delivery O2 Flow Rate FiO2 02/22/17 20:34 86 18 96 Nasal Cannula 4.0 02/22/17 19:59 98.4 95/51 02/22/17 05:20 60 Intake and Output 02/21/17 02/21/17 02/22/17 15:00 23:00 07:00 Intake Total 1000 ml Balance 1000 ml Results Result Diagram: 02/22/17 0527 02/22/17 0527 Results 24 hrs Laboratory Tests Test 02/22/17 05:27 White Blood Count 4.5 L Red Blood Count 2.94 L Hemoglobin 9.3 L Hematocrit 31.0 L Mean Corpuscular Volume 105.4 H Mean Corpuscular Hemoglobin 31.6 Mean Corpuscular Hemoglobin Concent 30.0 L Red Cell Distribution Width 14.8 H Platelet Count 132 L Mean Platelet Volume 11.1 H Neutrophils % 63.1 Lymphocytes % 17.8 Monocytes % 13.7 H Eosinophils % 4.8 Basophils % 0.4 Nucleated Red Blood Cells % 0.0 Neutrophils # 2.9 Lymphocytes # 0.8 Monocytes # 0.6 Eosinophils # 0.2 Basophils # 0.0 Nucleated Red Blood Cells # 0.0 Sodium Level 137 Potassium Level 3.5 Chloride Level 93 L Carbon Dioxide Level 45 *H Anion Gap 3 L Blood Urea Nitrogen 16 Creatinine 1.41 H Glucose Level 82 Calcium Level 8.8 Medications Medications Current Medications Atorvastatin Calcium (Lipitor) 20 mg QHS PO Last administered on 02/21/17 21: 05; Admin Dose 20 MG; Start 01/31/17 at 21:00 Escitalopram Oxalate (Lexapro) 10 mg DAILY PO Last administered on 02/22/17 08 :07; Admin Dose 10 MG; Start 02/01/17 at 09:00 Ondansetron HCl (Zofran Inj) 4 mg Q6 PRN IV NAUSEA Last administered on 17:40; Admin Dose 4 MG; Start 01/31/17 at 19:30 Morphine Sulfate (Ms Contin (Er)) 15 mg BID PO Last administered on 02/22/17 08:08; Admin Dose 15 MG; Start 01/31/17 at 23:00 Morphine Sulfate (morphine) 4 mg Q4H PRN IV SEVERE PAIN LEVEL 7-10 Last administered on 02/22/17 12:00; Admin Dose 4 MG; Start 01/31/17 at 23:00 Nitroglycerin (Nitroglycerin (Sl Tab) 0.4 Mg) 1 tab Q5M PRN SL ANGINA Last administered on 02/19/17 19:48; Admin Dose 1 TAB; Start 02/01/17 at 11:30 Pantoprazole (Protonix Tab) 40 mg DAILY@06 PO Last administered on 02/22/17 05 :59; Admin Dose 40 MG; Start 02/02/17 at 06:00 Voriconazole (Vfend) 200 mg BID PO Last administered on 02/22/17 08:08; Admin Dose 200 MG; Start 02/01/17 at 21:00 Senna (Senokot) 1 tab DAILY PRN PO CONSTIPATION Last administered on 02/03/17 20:36; Admin Dose 1 TAB; Start 02/02/17 at 16:00 Lactulose (Enulose) 20 gm DAILY PRN PO CONSTIPATION; Start 02/02/17 at 16:00 IV Flush (NS 10 ml) 10 ml PRN PRN IV IV PROTOCOL; Start 02/06/17 at 20:00 Oxymetazoline HCl (Afrin [place]) 2 spray BID NASAL Last administered on 08:08; Admin Dose 2 SPRAY; Start 02/07/17 at 15:00 Apixaban (Eliquis) 5 mg BID PO Last administered on 02/22/17 08:07; Admin Dose 5 MG; Start 02/21/17 at 09:00 Furosemide (Lasix) 40 mg DAILY PO Last administered on 02/22/17 08:08; Admin Dose 40 MG; Start 02/19/17 at 09:00 Acetazolamide (Diamox) 500 mg Q12 IV Last administered on 02/22/17 16:19; Admin Dose 500 MG; Start 02/22/17 at 12:00 TRAMAINE ELLSWORTH Feb 22, 2017 21:47
[2017-02-22] MEDS: ATORVASTATIN 20 MG TAB PO SCH (21:49)
[2017-02-23] VITALS (15 sets, daily range): BP systolic 99–131; BP diastolic 53–66; PULSE 80–96; RESP 18–20
[2017-02-23] MEDS: LEVALBUTEROL (NEB) 0.63 MG/3 ML AMP HHN SCH ×4 (01:22→20:02)
[2017-02-23] MEDS: LEVOTHYROXINE 75 MCG TAB PO SCH (06:49)
[2017-02-23] MEDS: PANTOPRAZOLE (EC) 40 MG TAB PO SCH (06:49)
[2017-02-23] MEDS: morphine (ER) 15 MG TAB PO SCH ×2 (08:27→20:45)
[2017-02-23] MEDS: VORICONAZOLE 200 MG TAB PO SCH ×2 (08:27→20:45)
[2017-02-23] MEDS: FUROSEMIDE 40 MG TAB PO SCH (08:27)
[2017-02-23] MEDS: DRONABINOL 2.5 MG CAP PO SCH ×3 (08:27→16:44)
[2017-02-23] MEDS: APIXABAN 5 MG TABLET PO SCH ×2 (08:27→20:45)
[2017-02-23] MEDS: OXYMETAZOLINE 0.05% 15 ML NAS SPRAY NASAL SCH ×2 (08:28→20:45)
[2017-02-23] MEDS: ESCITALOPRAM 10 MG TAB PO SCH (08:28)
[2017-02-23] MEDS: ACETAZOLAMIDE 500 MG INJ IV SCH ×2 (08:28→20:45)
--- NOTE | 2017-02-23 09:24 | CONS ---
Date/Time of Note Date/Time of Note DATE: 02/23/17 TIME: 09:22 Assessment/Plan Assessment/Plan Additional Assessment/Plan Assessment and recommendations; 1. Patient admitted with vomiting the right lung with significant postobstructive element due to widely metastatic non-small cell lung cancer. There has been interval improvement with treatment. Patient currently on oral Vfend. 2. COPD. 3. Left upper extremity DVT. 4. Mild anemia and thrombocytopenia. Continue current treatment. Consider discharge to group home or rehab facility. Prognosis remains poor. Consultation Date/Type/Reason Admit Date/Time Jan 31, 2017 at 18:59 Initial Consult Date 02/01/17 Type of Consultation: Pulmonary Referring Provider: MARYAM FARMER MD 24 HR Interval Summary Free Text/Dictation Patient condition is stable. Denies any chest pain. Any fever or chills. Complains of occasional hemoptysis. Shortness of breath has improved. General exam; elderly male, awake and alert. Currently distress. Exam/Review of Systems Vital Signs Vitals Vital Signs Date Time Temp Pulse Resp B/P Pulse Ox O2 Delivery O2 Flow Rate FiO2 02/23/17 09:02 Nasal Cannula 02/23/17 08:14 98.5 94 20 103/63 98 02/23/17 07:43 4.0 02/23/17 03:00 40 Intake and Output 02/22/17 02/22/17 02/23/17 15:00 23:00 07:00 Intake Total 1000 ml 250 ml Output Total 900 ml 650 ml Balance 100 ml -400 ml Exam HEENT exam; supple neck, no JVD. No lymphadenopathy. Midline trachea. No thyromegaly. Pharynx is clear. Patient has fair dentition. Patient has alopecia. Chest exam; diminished breath sounds right lung with crackles. Left lung is clear to auscultation. S1-S2 audible, no murmurs. Regular rhythm. Abdomen exam; soft, no organomegaly. Nontender. Bowel sounds audible. Extremity exam; no edema. No clubbing. Pulses 1+ bilaterally. ROTARY HELPER exam; no focal deficit. Results Result Diagram: 02/22/1727 02/22/17526 Medications Medications Current Medications Atorvastatin Calcium (Lipitor) 20 mg QHS PO Last administered on 02/22/17t 21: 49; Admin Dose 20 MG; Start 01/31/17 at 21:00 Escitalopram Oxalate (Lexapro) 10 mg DAILY PO Last administered on 02/23/17 08 :28; Admin Dose 10 MG; Start 02/01/17 at 09:00 Ondansetron HCl (Zofran Inj) 4 mg Q6 PRN IV NAUSEA Last administered on 17:40; Admin Dose 4 MG; Start 01/31/17 at 19:30 Morphine Sulfate (Ms Contin (Er)) 15 mg BID PO Last administered on 02/23/17 08:27; Admin Dose 15 MG; Start 01/31/17 at 23:00 Morphine Sulfate (morphine) 4 mg Q4H PRN IV SEVERE PAIN LEVEL 7-10 Last administered on 02/22/17 12:00; Admin Dose 4 MG; Start 01/31/17 at 23:00 Nitroglycerin (Nitroglycerin (Sl Tab) 0.4 Mg) 1 tab Q5M PRN SL ANGINA Last administered on 02/19/17 19:48; Admin Dose 1 TAB; Start 02/01/17 at 11:30 Pantoprazole (Protonix Tab) 40 mg DAILY@06 PO Last administered on 02/23/17 06 :49; Admin Dose 40 MG; Start 02/02/17 at 06:00 Voriconazole (Vfend) 200 mg BID PO Last administered on 02/23/17 08:27; Admin Dose 200 MG; Start 02/01/17 at 21:00 Senna (Senokot) 1 tab DAILY PRN PO CONSTIPATION Last administered on 02/03/17 20:36; Admin Dose 1 TAB; Start 02/02/17 at 16:00 Lactulose (Enulose) 20 gm DAILY PRN PO CONSTIPATION; Start 02/02/17 at 16:00 IV Flush (NS 10 ml) 10 ml PRN PRN IV IV PROTOCOL; Start 02/06/17 at 20:00 Oxymetazoline HCl (Afrin [place]) 2 spray BID NASAL Last administered on 08:28; Admin Dose 2 SPRAY; Start 02/07/17 at 15:00 Apixaban (Eliquis) 5 mg BID PO Last administered on 02/23/17 08:27; Admin Dose 5 MG; Start 02/21/17 at 09:00 Furosemide (Lasix) 40 mg DAILY PO Last administered on 02/23/17 08:27; Admin Dose 40 MG; Start 02/19/17 at 09:00 Acetazolamide (Diamox) 500 mg Q12 IV Last administered on 02/23/17 08:28; Admin Dose 500 MG; Start 02/22/17 at 12:00 ISMA CUTLER Feb 23, 2017 09:24
--- NOTE | 2017-02-23 10:38 | CONS ---
Date/Time of Note Date/Time of Note DATE: 02/23/17 TIME: 10:37 Assessment/Plan Assessment/Plan Chief Complaint/Hosp Course - h/o sepsis due to recurrent pneumonia, and to a lessor degree due to paronychia. 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 Aspergillus antibody was >1:64 but aspergillus antigen in serum by EIA was negative during his last admission. 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 Scanlon on 02/22/2017 Problems: Consultation Date/Type/Reason Admit Date/Time Jan 31, 2017 at 18:59 Initial Consult Date 02/14/17 Type of Consultation: ID Referring Provider: MARYAM FARMER MD Exam/Review of Systems Vital Signs Vitals Vital Signs Date Time Temp Pulse Resp B/P Pulse Ox O2 Delivery O2 Flow Rate FiO2 02/23/17 09:02 Nasal Cannula 02/23/17 08:14 98.5 94 20 103/63 98 02/23/17 07:43 4.0 02/23/17 03:00 40 Intake and Output 02/22/17 02/22/17 02/23/17 15:00 23:00 07:00 Intake Total 1000 ml 250 ml Output Total 900 ml 650 ml Balance 100 ml -400 ml Results Result Diagram: 02/22/1752602/22/17 05 Medications Medications Current Medications Atorvastatin Calcium (Lipitor) 20 mg QHS PO Last administered on 02/22/17 21: 49; Admin Dose 20 MG; Start 01/31/17 at 21:00 Escitalopram Oxalate (Lexapro) 10 mg DAILY PO Last administered on 02/23/17 08 :28; Admin Dose 10 MG; Start 02/01/17 at 09:00 Ondansetron HCl (Zofran Inj) 4 mg Q6 PRN IV NAUSEA Last administered on 17:40; Admin Dose 4 MG; Start 01/31/17 at 19:30 Morphine Sulfate (Ms Contin (Er)) 15 mg BID PO Last administered on 02/23/17 08:27; Admin Dose 15 MG; Start 01/31/17 at 23:00 Morphine Sulfate (morphine) 4 mg Q4H PRN IV SEVERE PAIN LEVEL 7-10 Last administered on 02/22/17 12:00; Admin Dose 4 MG; Start 01/31/17 at 23:00 Nitroglycerin (Nitroglycerin (Sl Tab) 0.4 Mg) 1 tab Q5M PRN SL ANGINA Last administered on 02/19/17 19:48; Admin Dose 1 TAB; Start 02/01/17 at 11:30 Pantoprazole (Protonix Tab) 40 mg DAILY@06 PO Last administered on 02/23/17 06 :49; Admin Dose 40 MG; Start 02/02/17 at 06:00 Voriconazole (Vfend) 200 mg BID PO Last administered on 02/23/17 08:27; Admin Dose 200 MG; Start 02/01/17 at 21:00 Senna (Senokot) 1 tab DAILY PRN PO CONSTIPATION Last administered on 02/03/17 20:36; Admin Dose 1 TAB; Start 02/02/17 at 16:00 Lactulose (Enulose) 20 gm DAILY PRN PO CONSTIPATION; Start 02/02/17 at 16:00 IV Flush (NS 10 ml) 10 ml PRN PRN IV IV PROTOCOL; Start 02/06/17 at 20:00 Oxymetazoline HCl (Afrin [place]) 2 spray BID NASAL Last administered on 08:28; Admin Dose 2 SPRAY; Start 02/07/17 at 15:00 Apixaban (Eliquis) 5 mg BID PO Last administered on 02/23/17 08:27; Admin Dose 5 MG; Start 02/21/17 at 09:00 Furosemide (Lasix) 40 mg DAILY PO Last administered on 02/23/17 08:27; Admin Dose 40 MG; Start 02/19/17 at 09:00 Acetazolamide (Diamox) 500 mg Q12 IV Last administered on 02/23/17 08:28; Admin Dose 500 MG; Start 02/22/17 at 12:00 LUKE CAAL M.D. Feb 23, 2017 10:38
--- NOTE | 2017-02-23 11:01 | CONS ---
Date/Time of Note Date/Time of Note DATE: 02/23/17 TIME: 10:59 Assessment/Plan Assessment/Plan Chief Complaint/Hosp Course - h/o sepsis due to recurrent pneumonia, and to a lessor degree due to paronychia. 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 Aspergillus antibody was >1:64 but aspergillus antigen in serum by EIA was negative during his last admission. 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 Scanlon on 02/22/2017 Problems: Consultation Date/Type/Reason Admit Date/Time Jan 31, 2017 at 18:59 Initial Consult Date 02/14/17 Type of Consultation: ID Referring Provider: MARYAM FARMER MD 24 HR Interval Summary Constitutional: no complaints Detailed Summary Eyes: no complaints ENT: no complaints Respiratory: cough, shortness of breath, sputum, No pleuritic pain Cardiovascular: no complaints Gastrointestinal: no complaints Genitourinary: no complaints Musculoskeletal: no complaints Skin: skin lesions (crust on L 2nd fingenail bed) Neurologic: no complaints Exam/Review of Systems Vital Signs Vitals Vital Signs Date Time Temp Pulse Resp B/P Pulse Ox O2 Delivery O2 Flow Rate FiO2 02/23/17 09:02 Nasal Cannula 02/23/17 08:14 98.5 94 20 103/63 98 02/23/17 07:43 4.0 02/23/17 03:00 40 Intake and Output 02/22/17 02/22/17 02/23/17 15:00 23:00 07:00 Intake Total 1000 ml 250 ml Output Total 900 ml 650 ml Balance 100 ml -400 ml Exam Constitutional: frail, obese Psych: no complaints Head: atraumatic, normocephalic, other (alopecia) Eyes: nl conjunctiva, nl lids, nl sclera ENMT: nl external ears & nose Neck: supple Respiratory: crackles/rales Cardiovascular: nl pulses, regular rate and rhythm Gastrointestinal: non-tender, soft Musculoskeletal: nl extremities to inspection Extremities: edema Neurological: lethargic Skin: rash or lesions (nail change due to chemo, crusts on L 2nd fingernail bed ) Results Result Diagram: 02/22/1752602/22/17526 Medications Medications Current Medications Atorvastatin Calcium (Lipitor) 20 mg QHS PO Last administered on 02/22/17 21: 49; Admin Dose 20 MG; Start 01/31/17 at 21:00 Escitalopram Oxalate (Lexapro) 10 mg DAILY PO Last administered on 02/23/17 08 :28; Admin Dose 10 MG; Start 02/01/17 at 09:00 Ondansetron HCl (Zofran Inj) 4 mg Q6 PRN IV NAUSEA Last administered on 17:40; Admin Dose 4 MG; Start 01/31/17 at 19:30 Morphine Sulfate (Ms Contin (Er)) 15 mg BID PO Last administered on 02/23/17 08:27; Admin Dose 15 MG; Start 01/31/17 at 23:00 Morphine Sulfate (morphine) 4 mg Q4H PRN IV SEVERE PAIN LEVEL 7-10 Last administered on 02/22/17 12:00; Admin Dose 4 MG; Start 01/31/17 at 23:00 Nitroglycerin (Nitroglycerin (Sl Tab) 0.4 Mg) 1 tab Q5M PRN SL ANGINA Last administered on 02/19/17 19:48; Admin Dose 1 TAB; Start 02/01/17 at 11:30 Pantoprazole (Protonix Tab) 40 mg DAILY@06 PO Last administered on 02/23/17 06 :49; Admin Dose 40 MG; Start 02/02/17 at 06:00 Voriconazole (Vfend) 200 mg BID PO Last administered on 02/23/17 08:27; Admin Dose 200 MG; Start 02/01/17 at 21:00 Senna (Senokot) 1 tab DAILY PRN PO CONSTIPATION Last administered on 02/03/17 20:36; Admin Dose 1 TAB; Start 02/02/17 at 16:00 Lactulose (Enulose) 20 gm DAILY PRN PO CONSTIPATION; Start 02/02/17 at 16:00 IV Flush (NS 10 ml) 10 ml PRN PRN IV IV PROTOCOL; Start 02/06/17 at 20:00 Oxymetazoline HCl (Afrin [place]) 2 spray BID NASAL Last administered on 08:28; Admin Dose 2 SPRAY; Start 02/07/17 at 15:00 Apixaban (Eliquis) 5 mg BID PO Last administered on 02/23/17 08:27; Admin Dose 5 MG; Start 02/21/17 at 09:00 Furosemide (Lasix) 40 mg DAILY PO Last administered on 02/23/17 08:27; Admin Dose 40 MG; Start 02/19/17 at 09:00 Acetazolamide (Diamox) 500 mg Q12 IV Last administered on 02/23/17 08:28; Admin Dose 500 MG; Start 02/22/17 at 12:00 LUKE CAAL M.D. Feb 23, 2017 11:01
[2017-02-23 12:47] LABS: CALCIUM 8.1 mg/dl (8.4-10.2); CREATININE 1.61 mg/dl (0.61-1.24); POTASSIUM 3.6 mmol/L (3.5-5.1)
--- NOTE | 2017-02-23 17:46 | CONS ---
Date/Time of Note Date/Time of Note DATE: 02/23/17 TIME: 17:45 Assessment/Plan Assessment/Plan Additional Assessment/Plan 1. Anasarca- Fluid overload multifactorial s/p Diuresis with IV lasix and IV albumin 2. acute kidney injury 3. post obstructive PNA 4. Advanced non small lung CA 5. acute respiratory failure 6. Right subclavian Deep venous thrombosis 7. acute on chronic diastolic heart failure 8. h/o fungal pneumonia 9. Hyperlipidemia 10. hypothyroidism 11. Metabolic alkalosis Plan: continue current care s/p IV albumin with Lasix diureisis- Cr 1.6 today -HCo3 imrpoved with Diomax 500mg iV BID - continue for today, tomorrow we will decrease dose IV abx as per ID and PMD, renally dose all abx Will follow up on [facility] for DVT for right subclavian DVT. Monitor Electroltyes and replace as needed. Consultation Date/Type/Reason Admit Date/Time Jan 31, 2017 at 18:59 Initial Consult Date 02/14/17 Type of Consultation: NEPHROLOGy Referring Provider: MARYAM FARMER MD 24 HR Interval Summary Free Text/Dictation Cr 1.6, c/o Leg pain, HCo3 improved to 40 with IV Diamox Exam/Review of Systems Vital Signs Vitals Vital Signs Date Time Temp Pulse Resp B/P Pulse Ox O2 Delivery O2 Flow Rate FiO2 02/23/17 16:08 98.6 86 19 119/55 93 02/23/17 13:59 Nasal Cannula 4.0 02/23/17 03:00 40 Intake and Output 02/22/17 02/22/17 02/23/17 15:00 23:00 07:00 Intake Total 1000 ml 250 ml Output Total 900 ml 650 ml Balance 100 ml -400 ml Exam Constitutional: alert Respiratory: clear to auscultation, diminished breath sounds, normal air movement Cardiovascular: nl pulses, regular rate and rhythm Gastrointestinal: non-tender, soft Musculoskeletal: other (gernalised anasarca, 1-2+ edema ) Neurological: SYSTEM ANALYST II-XII intact, nl mental status Results Result Diagram: 02/22/17 0527 02/23/17 1216 Results 24 hrs Laboratory Tests Test 02/23/17 12:16 Sodium Level 137 Potassium Level 3.6 Chloride Level 94 L Carbon Dioxide Level 40 H Anion Gap 7 L Blood Urea Nitrogen 18 Creatinine 1.61 H Glucose Level 99 Calcium Level 8.1 L Medications Medications Current Medications Atorvastatin Calcium (Lipitor) 20 mg QHS PO Last administered on 02/22/17 21: 49; Admin Dose 20 MG; Start 01/31/17 at 21:00 Escitalopram Oxalate (Lexapro) 10 mg DAILY PO Last administered on 02/23/17 08 :28; Admin Dose 10 MG; Start 02/01/17 at 09:00 Ondansetron HCl (Zofran Inj) 4 mg Q6 PRN IV NAUSEA Last administered on 17:40; Admin Dose 4 MG; Start 01/31/17 at 19:30 Morphine Sulfate (Ms Contin (Er)) 15 mg BID PO Last administered on 02/23/17 08:27; Admin Dose 15 MG; Start 01/31/17 at 23:00 Morphine Sulfate (morphine) 4 mg Q4H PRN IV SEVERE PAIN LEVEL 7-10 Last administered on 02/22/17 12:00; Admin Dose 4 MG; Start 01/31/17 at 23:00 Nitroglycerin (Nitroglycerin (Sl Tab) 0.4 Mg) 1 tab Q5M PRN SL ANGINA Last administered on 02/19/17 19:48; Admin Dose 1 TAB; Start 02/01/17 at 11:30 Pantoprazole (Protonix Tab) 40 mg DAILY@06 PO Last administered on 02/23/17 06 :49; Admin Dose 40 MG; Start 02/02/17 at 06:00 Voriconazole (Vfend) 200 mg BID PO Last administered on 02/23/17 08:27; Admin Dose 200 MG; Start 02/01/17 at 21:00 Senna (Senokot) 1 tab DAILY PRN PO CONSTIPATION Last administered on 02/03/17 20:36; Admin Dose 1 TAB; Start 02/02/17 at 16:00 Lactulose (Enulose) 20 gm DAILY PRN PO CONSTIPATION; Start 02/02/17 at 16:00 IV Flush (NS 10 ml) 10 ml PRN PRN IV IV PROTOCOL; Start 02/06/17 at 20:00 Oxymetazoline HCl (Afrin [place]) 2 spray BID NASAL Last administered on 08:28; Admin Dose 2 SPRAY; Start 02/07/17 at 15:00 Apixaban (Eliquis) 5 mg BID PO Last administered on 02/23/17 08:27; Admin Dose 5 MG; Start 02/21/17 at 09:00 Furosemide (Lasix) 40 mg DAILY PO Last administered on 02/23/17 08:27; Admin Dose 40 MG; Start 02/19/17 at 09:00 Acetazolamide (Diamox) 500 mg Q12 IV Last administered on 02/23/17 08:28; Admin Dose 500 MG; Start 02/22/17 at 12:00 MELODY JENSEN MD Feb 23, 2017 17:46
--- NOTE | 2017-02-23 17:57 | CONS ---
Date/Time of Note Date/Time of Note DATE: 02/23/17 TIME: 17:57 Assessment/Plan Assessment/Plan Chief Complaint/Hosp Course metastatic lung CANCER, NSCLC - ON CHEMO WITH RELATIVELY STABLE DIS D/W PULM AND RADIOLOGIST CHEMO ON HOLD DURING HOSPITALIZATION HX PANCYTOPENIA POST CHEMO MONITOR BLOOD COUNT CLOSELY LEUKOCYTOSIS PROB 2 TO POST OBSTRUCTIVE PNA HX LEUKOPENIA- POST CHEMO POST NEUPOGEN IN THE PAST RESPIRATORY INSUFFICIENCY ? rivas eval PAIN PAIN CONTROL CHF, FLUID OVERLOAD GENTLE DIURESIS, CONSIDERING BORDERLINE BP POST Hypoxemic respiratory failure IN AUG 2016 , reaction to CARBO severe pneumonia/bronchitis due to enterobacter (09/22/2016-) HX DVT TREATED WITH LOVENOX PT SELF- DC 2 TO HEMOPTYSIS OUTPT History of coronary artery disease. Chronic obstructive pulmonary disease HX TOBACCO SMOKING Problems: Consultation Date/Type/Reason Admit Date/Time Jan 31, 2017 at 18:59 Initial Consult Date 01/31/17 Type of Consultation: hemeon Referring Provider: MARYAM FARMER MD 24 HR Interval Summary Free Text/Dictation NO NEW EVENTS NAD Exam/Review of Systems Vital Signs Vitals Vital Signs Date Time Temp Pulse Resp B/P Pulse Ox O2 Delivery O2 Flow Rate FiO2 02/23/17 16:08 98.6 86 19 119/55 93 02/23/17 13:59 Nasal Cannula 4.0 02/23/17 03:00 40 Intake and Output 02/22/17 02/22/17 02/23/17 15:00 23:00 07:00 Intake Total 1000 ml 250 ml Output Total 900 ml 650 ml Balance 100 ml -400 ml Exam GENERAL: The patient is alert, awake, complaining of chest pain, shortness of breath. NECK: JVP approximately 9 cm water. CHEST: Upper airway transmitted diffuse rhonchorous sounds. Decreased breath sounds at the bases bilaterally. HEART: Regular rate and rhythm. Normal S1, increased S2. 1/6 systolic murmur. Nondisplaced PMI. ABDOMEN: Positive bowel sounds. Soft. EXTREMITIES: 2 + edema, up and lower extremities bilaterally. 1+ pulses bilateral posterior tibial. Results Result Diagram: 02/22/17 0527 02/23/17 1216 Results 24 hrs Laboratory Tests Test 02/23/17 12:16 Sodium Level 137 Potassium Level 3.6 Chloride Level 94 L Carbon Dioxide Level 40 H Anion Gap 7 L Blood Urea Nitrogen 18 Creatinine 1.61 H Glucose Level 99 Calcium Level 8.1 L Medications Medications Current Medications Atorvastatin Calcium (Lipitor) 20 mg QHS PO Last administered on 02/22/17 21: 49; Admin Dose 20 MG; Start 01/31/17 at 21:00 Escitalopram Oxalate (Lexapro) 10 mg DAILY PO Last administered on 02/23/17 08 :28; Admin Dose 10 MG; Start 02/01/17 at 09:00 Ondansetron HCl (Zofran Inj) 4 mg Q6 PRN IV NAUSEA Last administered on 17:40; Admin Dose 4 MG; Start 01/31/17 at 19:30 Morphine Sulfate (Ms Contin (Er)) 15 mg BID PO Last administered on 02/23/17 08:27; Admin Dose 15 MG; Start 01/31/17 at 23:00 Morphine Sulfate (morphine) 4 mg Q4H PRN IV SEVERE PAIN LEVEL 7-10 Last administered on 02/22/17 12:00; Admin Dose 4 MG; Start 01/31/17 at 23:00 Nitroglycerin (Nitroglycerin (Sl Tab) 0.4 Mg) 1 tab Q5M PRN SL ANGINA Last administered on 02/19/17 19:48; Admin Dose 1 TAB; Start 02/01/17 at 11:30 Pantoprazole (Protonix Tab) 40 mg DAILY@06 PO Last administered on 02/23/17 06 :49; Admin Dose 40 MG; Start 02/02/17 at 06:00 Voriconazole (Vfend) 200 mg BID PO Last administered on 02/23/17 08:27; Admin Dose 200 MG; Start 02/01/17 at 21:00 Senna (Senokot) 1 tab DAILY PRN PO CONSTIPATION Last administered on 02/03/17 20:36; Admin Dose 1 TAB; Start 02/02/17 at 16:00 Lactulose (Enulose) 20 gm DAILY PRN PO CONSTIPATION; Start 02/02/17 at 16:00 IV Flush (NS 10 ml) 10 ml PRN PRN IV IV PROTOCOL; Start 02/06/17 at 20:00 Oxymetazoline HCl (Afrin [place]) 2 spray BID NASAL Last administered on 08:28; Admin Dose 2 SPRAY; Start 02/07/17 at 15:00 Apixaban (Eliquis) 5 mg BID PO Last administered on 02/23/17 08:27; Admin Dose 5 MG; Start 02/21/17 at 09:00 Furosemide (Lasix) 40 mg DAILY PO Last administered on 02/23/17 08:27; Admin Dose 40 MG; Start 02/19/17 at 09:00 Acetazolamide (Diamox) 500 mg Q12 IV Last administered on 02/23/17 08:28; Admin Dose 500 MG; Start 02/22/17 at 12:00 DAHIANA BABCOCK MD Feb 23, 2017 17:57
--- NOTE | 2017-02-23 18:45 | CONS ---
Date/Time of Note Date/Time of Note DATE: 02/23/17 TIME: 18:41 Assessment/Plan Assessment/Plan Chief Complaint/Hosp Course IMPRESSION: 1. Chest pain. Assess for acute coronary syndrome in a patient with lung cancer, undergoing chemotherapy, likely secondary to lung cancer.-negative trop x3 2. Abnormal electrocardiogram with nonspecific ST and T-wave abnormalities, assess for acute coronary syndrome. 3. Bradycardia, transient while on beta matthew. 4. Hypotension-improved 5. Shortness of [id number] PNA 6. Lung cancer with ongoing chemotherapy. 7. Leukocytosis. 8. Anemia. 9. Thrombocytopenia-stable 10. Possible ileus by most recent KUB 11.DVT-RUE on eliquis 12. Renal failure-slight worsening Recc: -Tel -Continue eliquis -Continue abx;'s and f/u cx data -Continue statin -Continue abx's and f/u cx data -pulmonary toliet -Follow BP closely -Continue lasix/diamox and follow volume status closely -Continue marinol Problems: Consultation Date/Type/Reason Admit Date/Time Jan 31, 2017 at 18:59 Initial Consult Date 02/01/17 Type of Consultation: cardiology Reason for Consultation CHF Referring Provider: MARYAM FARMER MD Exam/Review of Systems Vital Signs Vitals Vital Signs Date Time Temp Pulse Resp B/P Pulse Ox O2 Delivery O2 Flow Rate FiO2 02/23/17 16:08 98.6 86 19 119/55 93 02/23/17 13:59 Nasal Cannula 4.0 02/23/17 03:00 40 Intake and Output 02/22/17 02/22/17 02/23/17 15:00 23:00 07:00 Intake Total 1000 ml 250 ml Output Total 900 ml 650 ml Balance 100 ml -400 ml Exam Review of Systems: CONSTITUTIONAL: No fevers, chills. PULMONARY: + sob CARDIOVASCULAR: No chest pain/palpitations GASTROINTESTINAL: + nausea/vomiting. GENITOURINARY: No hematuria/dysuria. MUSCULOSKELETAL: No myagias/arthalgias. PSYCHIATRIC: The patient denies depression. NEUROLOGIC: No weakness Constitutional: alert Psych: no complaints Head: normocephalic ENMT: mucosa pink and moist Neck: jvd (9 cm water), supple Respiratory: diminished breath sounds (at bases/B) Cardiovascular: regular rate and rhythm Gastrointestinal: non-tender, soft Musculoskeletal: muscle tone (normal) Extremities: edema (bilateral) Neurological: other (No focal deficits) Results Result Diagram: 02/22/17 0527 02/23/17 1216 Results 24 hrs Laboratory Tests Test 02/23/17 12:16 Sodium Level 137 Potassium Level 3.6 Chloride Level 94 L Carbon Dioxide Level 40 H Anion Gap 7 L Blood Urea Nitrogen 18 Creatinine 1.61 H Glucose Level 99 Calcium Level 8.1 L Medications Medications Current Medications Atorvastatin Calcium (Lipitor) 20 mg QHS PO Last administered on 02/22/17 21: 49; Admin Dose 20 MG; Start 01/31/17 at 21:00 Escitalopram Oxalate (Lexapro) 10 mg DAILY PO Last administered on 02/23/17 08 :28; Admin Dose 10 MG; Start 02/01/17 at 09:00 Ondansetron HCl (Zofran Inj) 4 mg Q6 PRN IV NAUSEA Last administered on 17:40; Admin Dose 4 MG; Start 01/31/17 at 19:30 Morphine Sulfate (Ms Contin (Er)) 15 mg BID PO Last administered on 02/23/17 08:27; Admin Dose 15 MG; Start 01/31/17 at 23:00 Morphine Sulfate (morphine) 4 mg Q4H PRN IV SEVERE PAIN LEVEL 7-10 Last administered on 02/22/17 12:00; Admin Dose 4 MG; Start 01/31/17 at 23:00 Nitroglycerin (Nitroglycerin (Sl Tab) 0.4 Mg) 1 tab Q5M PRN SL ANGINA Last administered on 02/19/17 19:48; Admin Dose 1 TAB; Start 02/01/17 at 11:30 Pantoprazole (Protonix Tab) 40 mg DAILY@06 PO Last administered on 02/23/17 06 :49; Admin Dose 40 MG; Start 02/02/17 at 06:00 Voriconazole (Vfend) 200 mg BID PO Last administered on 02/23/17 08:27; Admin Dose 200 MG; Start 02/01/17 at 21:00 Senna (Senokot) 1 tab DAILY PRN PO CONSTIPATION Last administered on 02/03/17 20:36; Admin Dose 1 TAB; Start 02/02/17 at 16:00 Lactulose (Enulose) 20 gm DAILY PRN PO CONSTIPATION; Start 02/02/17 at 16:00 IV Flush (NS 10 ml) 10 ml PRN PRN IV IV PROTOCOL; Start 02/06/17 at 20:00 Oxymetazoline HCl (Afrin [place]) 2 spray BID NASAL Last administered on 08:28; Admin Dose 2 SPRAY; Start 02/07/17 at 15:00 Apixaban (Eliquis) 5 mg BID PO Last administered on 02/23/17 08:27; Admin Dose 5 MG; Start 02/21/17 at 09:00 Furosemide (Lasix) 40 mg DAILY PO Last administered on 02/23/17 08:27; Admin Dose 40 MG; Start 02/19/17 at 09:00 Acetazolamide (Diamox) 500 mg Q12 IV Last administered on 02/23/17 08:28; Admin Dose 500 MG; Start 02/22/17 at 12:00 MARIAA ÁLVAREZ Feb 23, 2017 18:45
[2017-02-23] MEDS: ONDANSETRON 4 MG INJ IV PRN (19:12)
--- NOTE | 2017-02-23 19:43 | PN ---
Date/Time of Note Date/Time of Note DATE: 02/23/17 TIME: 19:42 Assessment/Plan VTE Prophylaxis VTE Prophylaxis Intervention: SCD's Lines/Catheters IV Catheter Type (from Nrs): PICC Line Central line still needed: Yes Urinary Cath still in place: No Assessment/Plan Chief Complaint/Hosp Course Patient is lethargic but easily arousable, continues on supplemental oxygen during the day and BiPAP at night, pending better Raza evaluation Assessment/Plan - LIZ, Dr. Irving is following in nephrology consultation. - Post-obstructive pneumonia Dr. Philly perry is following infection disease consultation. Status post treatment with antibiotics. - Advanced non-small cell lung CA, Dr. Scanlon is following in oncology consultation. - Acute respiratory failure secondary to above. is following in pulmonology consultation. - Nonocclusive deep venous thrombosis bilateral upper extremities. Continue Eliquis. - Acute on chronic diastolic congestive heart failure, continue gentle diuresis , continue to monitor electrolytes. - h/o fungal pneumonia, on maintenance voriconazole - CAD, continue aspirin. - Hyperlipidemia, continue statin - Hypothyroidism, continue levothyroxine. Further recommendations based on clinical course. Plan of care discussed with Dr. Lincoln. Problems: Exam/Review of Systems Vital Signs Vitals Vital Signs Date Time Temp Pulse Resp B/P Pulse Ox O2 Delivery O2 Flow Rate FiO2 02/23/17 16:08 98.6 86 19 119/55 93 02/23/17 13:59 Nasal Cannula 4.0 02/23/17 03:00 40 Intake and Output 02/22/17 02/22/17 02/23/17 15:00 23:00 07:00 Intake Total 1000 ml 250 ml Output Total 900 ml 650 ml Balance 100 ml -400 ml Exam Constitutional: alert Neck: supple Respiratory: diminished breath sounds Cardiovascular: nl pulses Gastrointestinal: non-tender, soft Extremities: edema Results Result Diagram: 02/22/17 0527 02/23/17 1216 Results 24 hrs Laboratory Tests Test 02/23/17 12:16 Sodium Level 137 Potassium Level 3.6 Chloride Level 94 L Carbon Dioxide Level 40 H Anion Gap 7 L Blood Urea Nitrogen 18 Creatinine 1.61 H Glucose Level 99 Calcium Level 8.1 L Medications Medications Current Medications Atorvastatin Calcium (Lipitor) 20 mg QHS PO Last administered on 02/22/17t 21: 49; Admin Dose 20 MG; Start 01/31/17 at 21:00 Escitalopram Oxalate (Lexapro) 10 mg DAILY PO Last administered on 02/23/17 08 :28; Admin Dose 10 MG; Start 02/01/17 at 09:00 Ondansetron HCl (Zofran Inj) 4 mg Q6 PRN IV NAUSEA Last administered on 19:12; Admin Dose 4 MG; Start 01/31/17 at 19:30 Morphine Sulfate (Ms Contin (Er)) 15 mg BID PO Last administered on 02/23/17 08:27; Admin Dose 15 MG; Start 01/31/17 at 23:00 Morphine Sulfate (morphine) 4 mg Q4H PRN IV SEVERE PAIN LEVEL 7-10 Last administered on 02/22/17 12:00; Admin Dose 4 MG; Start 01/31/17 at 23:00 Nitroglycerin (Nitroglycerin (Sl Tab) 0.4 Mg) 1 tab Q5M PRN SL ANGINA Last administered on 02/19/17 19:48; Admin Dose 1 TAB; Start 02/01/17 at 11:30 Pantoprazole (Protonix Tab) 40 mg DAILY@06 PO Last administered on 02/23/17 06 :49; Admin Dose 40 MG; Start 02/02/17 at 06:00 Voriconazole (Vfend) 200 mg BID PO Last administered on 02/23/17 08:27; Admin Dose 200 MG; Start 02/01/17 at 21:00 Senna (Senokot) 1 tab DAILY PRN PO CONSTIPATION Last administered on 02/03/17 20:36; Admin Dose 1 TAB; Start 02/02/17 at 16:00 Lactulose (Enulose) 20 gm DAILY PRN PO CONSTIPATION; Start 02/02/17 at 16:00 IV Flush (NS 10 ml) 10 ml PRN PRN IV IV PROTOCOL; Start 02/06/17 at 20:00 Oxymetazoline HCl (Afrin [place]) 2 spray BID NASAL Last administered on 08:28; Admin Dose 2 SPRAY; Start 02/07/17 at 15:00 Apixaban (Eliquis) 5 mg BID PO Last administered on 02/23/17 08:27; Admin Dose 5 MG; Start 02/21/17 at 09:00 Furosemide (Lasix) 40 mg DAILY PO Last administered on 02/23/17 08:27; Admin Dose 40 MG; Start 02/19/17 at 09:00 Acetazolamide (Diamox) 500 mg Q12 IV Last administered on 02/23/17 08:28; Admin Dose 500 MG; Start 02/22/17 at 12:00 LUBA EARLY Feb 23, 2017 19:43
[2017-02-23] MEDS: ATORVASTATIN 20 MG TAB PO SCH (20:45)
[2017-02-24] VITALS (16 sets, daily range): BP systolic 93–150; BP diastolic 46–79; PULSE 77–90; RESP 17–19
[2017-02-24] MEDS: LEVALBUTEROL (NEB) 0.63 MG/3 ML AMP HHN SCH ×4 (01:08→19:42)
[2017-02-24] MEDS: LEVOTHYROXINE 75 MCG TAB PO SCH (06:41)
[2017-02-24] MEDS: PANTOPRAZOLE (EC) 40 MG TAB PO SCH (06:41)
[2017-02-24] MEDS: DRONABINOL 2.5 MG CAP PO SCH ×3 (08:25→16:32)
[2017-02-24] MEDS: ACETAZOLAMIDE 500 MG INJ IV SCH (08:25)
[2017-02-24] MEDS: ONDANSETRON 4 MG INJ IV PRN (08:25)
[2017-02-24] MEDS: ESCITALOPRAM 10 MG TAB PO SCH (08:26)
[2017-02-24] MEDS: FUROSEMIDE 40 MG TAB PO SCH (08:26)
[2017-02-24] MEDS: VORICONAZOLE 200 MG TAB PO SCH ×2 (08:26→20:26)
[2017-02-24] MEDS: APIXABAN 5 MG TABLET PO SCH ×2 (08:26→20:26)
[2017-02-24] MEDS: morphine (ER) 15 MG TAB PO SCH ×2 (08:26→20:26)
[2017-02-24] MEDS: OXYMETAZOLINE 0.05% 15 ML NAS SPRAY NASAL SCH ×2 (08:30→20:26)
[2017-02-24 09:23] LABS: BASOPHILS % 0.5 % (0.0-2.0); EOSINOPHILS # 0.2 10^3/ul (0.0-0.5); EOSINOPHILS % 2.8 % (0.0-7.0); HEMATOCRIT 31.6 % (42.0-52.0); HEMOGLOBIN 9.6 g/dl (14.0-18.0); LYMPHOCYTES # 1.2 10^3/ul (0.8-2.9); MEAN CORPUSCULAR HEMOGLOBIN 32.5 pg (29.0-33.0); MEAN CORPUSCULAR HGB CONC 30.4 g/dl (32.0-37.0); MEAN CORPUSCULAR VOLUME 107.1 fl (82.0-101.0); MEAN PLATELET VOLUME 11.2 fl (7.4-10.4); MONOCYTE # 0.6 10^3/ul (0.3-0.9); MONOCYTES % 9.2 % (0.0-11.0); NEUTROPHIL # 4.4 10^3/ul (1.6-7.5); NEUTROPHILS % 69.2 % (39.0-77.0); PLATELET COUNT 135 10^3/UL (140-415); RED BLOOD COUNT 2.95 10^6/ul (4.70-6.10); RED CELL DISTRIBUTION WIDTH 14.6 % (11.5-14.5); WHITE BLOOD COUNT 6.4 10^3/ul (4.8-10.8)
[2017-02-24 09:46] LABS: ALBUMIN 3.4 g/dl (3.3-4.9); ALBUMIN/GLOBULIN RATIO 1.41; BILIRUBIN,INDIRECT 0.2 mg/dl (0-1.1); BILIRUBIN,TOTAL 0.2 mg/dl (0.2-1.3); CALCIUM 8.4 mg/dl (8.4-10.2); CREATININE 1.71 mg/dl (0.61-1.24); POTASSIUM 3.3 mmol/L (3.5-5.1); TOTAL PROTEIN 5.8 g/dl (6.1-8.1)
[2017-02-24 09:50] LABS: INR 1.2; PROTIME 15.3 Sec (12.2-14.2); PT RATIO 1.2
--- NOTE | 2017-02-24 10:19 | CONS ---
Date/Time of Note Date/Time of Note DATE: 02/24/17 TIME: 10:18 Assessment/Plan Assessment/Plan Chief Complaint/Hosp Course - h/o sepsis due to recurrent pneumonia, and to a lessor degree due to paronychia. 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 Aspergillus antibody was >1:64 but aspergillus antigen in serum by EIA was negative during his last admission. 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 given his immunocompromised state; monitor LFTs weekly, last checked on 02/21/2017 management d/w Pt Problems: Consultation Date/Type/Reason Admit Date/Time Jan 31, 2017 at 18:59 Initial Consult Date 02/14/17 Type of Consultation: ID Referring Provider: MARYAM FARMER MD 24 HR Interval Summary Constitutional: no complaints Detailed Summary Eyes: no complaints ENT: no complaints Respiratory: cough, shortness of breath, No pleuritic pain Cardiovascular: no complaints Gastrointestinal: no complaints Genitourinary: no complaints Musculoskeletal: no complaints Skin: skin lesions (nail changes due to chemo) Neurologic: no complaints Exam/Review of Systems Vital Signs Vitals Vital Signs Date Time Temp Pulse Resp B/P Pulse Ox O2 Delivery O2 Flow Rate FiO2 02/24/17 08:34 18 150/79 02/24/17 08:18 84 95 Nasal Cannula 4.0 02/24/17 07:59 98.0 02/24/17 03:19 50 Intake and Output 02/23/17 02/23/17 02/24/17 15:00 23:00 07:00 Intake Total 650 ml 150 ml Output Total 550 ml Balance 650 ml -400 ml Exam Constitutional: frail, obese Psych: nl mood/affect, no complaints Head: atraumatic, normocephalic, other (alopecia) Eyes: nl conjunctiva, nl lids, nl sclera ENMT: nl external ears & nose, nl nasal mucosa & septum Neck: supple Respiratory: wheezing Cardiovascular: nl pulses, regular rate and rhythm Gastrointestinal: non-tender, soft Musculoskeletal: nl extremities to inspection Extremities: edema Neurological: [employer] II-XII intact, nl mental status Skin: other (crust on L 2nd nailbed, nail changes due to chemo) Results Result Diagram: 02/24/1790202/24/17 0903 Results 24 hrs Laboratory Tests Test 02/23/17 12:16 02/24/17 09:03 Sodium Level 137 140 Potassium Level 3.6 3.3 L Chloride Level 94 L 95 L Carbon Dioxide Level 40 H 39 H Anion Gap 7 L 9 Blood Urea Nitrogen 18 18 Creatinine 1.61 H 1.71 H Glucose Level 99 83 Calcium Level 8.1 L 8.4 White Blood Count 6.4 # Red Blood Count 2.95 L Hemoglobin 9.6 L Hematocrit 31.6 L Mean Corpuscular Volume 107.1 H Mean Corpuscular Hemoglobin 32.5 Mean Corpuscular Hemoglobin Concent 30.4 L Red Cell Distribution Width 14.6 H Platelet Count 135 L Mean Platelet Volume 11.2 H Neutrophils % 69.2 Lymphocytes % 18.0 Monocytes % 9.2 Eosinophils % 2.8 Basophils % 0.5 Nucleated Red Blood Cells % 0.0 Neutrophils # 4.4 Lymphocytes # 1.2 Monocytes # 0.6 Eosinophils # 0.2 Basophils # 0.0 Nucleated Red Blood Cells # 0.0 Prothrombin Time 15.3 H Prothrombin Time Ratio 1.2 INR International Normalized Ratio 1.20 Activated Partial Thromboplast Time 36.0 H Total Bilirubin 0.2 Direct Bilirubin 0.00 Indirect Bilirubin 0.2 Aspartate Amino Transf (AST/SGOT) 32 Alanine Aminotransferase (ALT/SGPT) 29 Alkaline Phosphatase 81 Total Protein 5.8 L Albumin 3.4 Globulin 2.40 Albumin/Globulin Ratio 1.41 Medications Medications Current Medications Atorvastatin Calcium (Lipitor) 20 mg QHS PO Last administered on 02/23/17 20: 45; Admin Dose 20 MG; Start 01/31/17 at 21:00 Escitalopram Oxalate (Lexapro) 10 mg DAILY PO Last administered on 02/24/17 08 :26; Admin Dose 10 MG; Start 02/01/17 at 09:00 Ondansetron HCl (Zofran Inj) 4 mg Q6 PRN IV NAUSEA Last administered on 08:25; Admin Dose 4 MG; Start 01/31/17 at 19:30 Morphine Sulfate (Ms Contin (Er)) 15 mg BID PO Last administered on 02/24/17 08:26; Admin Dose 15 MG; Start 01/31/17 at 23:00 Morphine Sulfate (morphine) 4 mg Q4H PRN IV SEVERE PAIN LEVEL 7-10 Last administered on 02/22/17 12:00; Admin Dose 4 MG; Start 01/31/17 at 23:00 Nitroglycerin (Nitroglycerin (Sl Tab) 0.4 Mg) 1 tab Q5M PRN SL ANGINA Last administered on 02/19/17 19:48; Admin Dose 1 TAB; Start 02/01/17 at 11:30 Pantoprazole (Protonix Tab) 40 mg DAILY@06 PO Last administered on 02/24/17 06 :41; Admin Dose 40 MG; Start 02/02/17 at 06:00 Voriconazole (Vfend) 200 mg BID PO Last administered on 02/24/17 08:26; Admin Dose 200 MG; Start 02/01/17 at 21:00 Senna (Senokot) 1 tab DAILY PRN PO CONSTIPATION Last administered on 02/03/17 20:36; Admin Dose 1 TAB; Start 02/02/17 at 16:00 Lactulose (Enulose) 20 gm DAILY PRN PO CONSTIPATION; Start 02/02/17 at 16:00 IV Flush (NS 10 ml) 10 ml PRN PRN IV IV PROTOCOL; Start 02/06/17 at 20:00 Oxymetazoline HCl (Afrin [place]) 2 spray BID NASAL Last administered on 08:30; Admin Dose 2 SPRAY; Start 02/07/17 at 15:00 Apixaban (Eliquis) 5 mg BID PO Last administered on 02/24/17 08:26; Admin Dose 5 MG; Start 02/21/17 at 09:00 Furosemide (Lasix) 40 mg DAILY PO Last administered on 02/24/17 08:26; Admin Dose 40 MG; Start 02/19/17 at 09:00 Acetazolamide (Diamox) 500 mg Q12 IV Last administered on 02/24/17 08:25; Admin Dose 500 MG; Start 02/22/17 at 12:00 LUKE CAAL M.D. Feb 24, 2017 10:18
--- NOTE | 2017-02-24 12:39 | PN ---
Date/Time of Note Date/Time of Note DATE: 02/24/17 TIME: 12:39 Assessment/Plan VTE Prophylaxis VTE Prophylaxis Intervention: other Lines/Catheters IV C[facility]ter Type (from [facility]): PICC Line Central line still needed: Yes Urinary Cath still in place: No Assessment/Plan Chief Complaint/Hosp Course - LIZ, Dr. Irving is following in nephrology consultation. - Post-obstructive pneumonia Dr. Philly perry is following infection disease consultation. Status post treatment with antibiotics. - Advanced non-small cell lung CA, Dr. Scanlon is following in oncology consultation. - Acute respiratory failure secondary to above. is following in pulmonology consultation. - Nonocclusive deep venous thrombosis bilateral upper extremities. Continue Eliquis. - Acute on chronic diastolic congestive heart failure, continue gentle diuresis , continue to monitor electrolytes. - h/o fungal pneumonia, on maintenance voriconazole - CAD, continue aspirin. - Hyperlipidemia, continue statin - Hypothyroidism, continue levothyroxine. Problems: Subjective 24 Hr Interval Summary Free Text/Dictation Patient has no complaints Exam/Review of Systems Vital Signs Vitals Vital Signs Date Time Temp Pulse Resp B/P Pulse Ox O2 Delivery O2 Flow Rate FiO2 02/24/17 11:48 98.3 80 19 95/62 93 02/24/17 08:18 Nasal Cannula 4.0 02/24/17 03:19 50 Intake and Output 02/23/17 02/23/17 02/24/17 15:00 23:00 07:00 Intake Total 650 ml 150 ml Output Total 550 ml Balance 650 ml -400 ml Exam Constitutional: well developed Head: atraumatic, normocephalic Neck: supple Respiratory: clear to auscultation Cardiovascular: regular rate and rhythm Gastrointestinal: non-tender, soft Extremities: normal pulses Results Result Diagram: 02/24/1790202/24/17 0903 Results 24 hrs Laboratory Tests Test 02/24/17 09:03 White Blood Count 6.4 # Red Blood Count 2.95 L Hemoglobin 9.6 L Hematocrit 31.6 L Mean Corpuscular Volume 107.1 H Mean Corpuscular Hemoglobin 32.5 Mean Corpuscular Hemoglobin Concent 30.4 L Red Cell Distribution Width 14.6 H Platelet Count 135 L Mean Platelet Volume 11.2 H Neutrophils % 69.2 Lymphocytes % 18.0 Monocytes % 9.2 Eosinophils % 2.8 Basophils % 0.5 Nucleated Red Blood Cells % 0.0 Neutrophils # 4.4 Lymphocytes # 1.2 Monocytes # 0.6 Eosinophils # 0.2 Basophils # 0.0 Nucleated Red Blood Cells # 0.0 Prothrombin Time 15.3 H Prothrombin Time Ratio 1.2 INR International Normalized Ratio 1.20 Activated Partial Thromboplast Time 36.0 H Sodium Level 140 Potassium Level 3.3 L Chloride Level 95 L Carbon Dioxide Level 39 H Anion Gap 9 Blood Urea Nitrogen 18 Creatinine 1.71 H Glucose Level 83 Calcium Level 8.4 Total Bilirubin 0.2 Direct Bilirubin 0.00 Indirect Bilirubin 0.2 Aspartate Amino Transf (AST/SGOT) 32 Alanine Aminotransferase (ALT/SGPT) 29 Alkaline Phosphatase 81 Total Protein 5.8 L Albumin 3.4 Globulin 2.40 Albumin/Globulin Ratio 1.41 Medications Medications Current Medications Atorvastatin Calcium (Lipitor) 20 mg QHS PO Last administered on 02/23/17 20: 45; Admin Dose 20 MG; Start 01/31/17 at 21:00 Escitalopram Oxalate (Lexapro) 10 mg DAILY PO Last administered on 02/24/17 08 :26; Admin Dose 10 MG; Start 02/01/17 at 09:00 Ondansetron HCl (Zofran Inj) 4 mg Q6 PRN IV NAUSEA Last administered on 08:25; Admin Dose 4 MG; Start 01/31/17 at 19:30 Morphine Sulfate (Ms Contin (Er)) 15 mg BID PO Last administered on 02/24/17 08:26; Admin Dose 15 MG; Start 01/31/17 at 23:00 Morphine Sulfate (morphine) 4 mg Q4H PRN IV SEVERE PAIN LEVEL 7-10 Last administered on 02/22/17 12:00; Admin Dose 4 MG; Start 01/31/17 at 23:00 Nitroglycerin (Nitroglycerin (Sl Tab) 0.4 Mg) 1 tab Q5M PRN SL ANGINA Last administered on 02/19/17 19:48; Admin Dose 1 TAB; Start 02/01/17 at 11:30 Pantoprazole (Protonix Tab) 40 mg DAILY@06 PO Last administered on 02/24/17 06 :41; Admin Dose 40 MG; Start 02/02/17 at 06:00 Voriconazole (Vfend) 200 mg BID PO Last administered on 02/24/17 08:26; Admin Dose 200 MG; Start 02/01/17 at 21:00 Senna (Senokot) 1 tab DAILY PRN PO CONSTIPATION Last administered on 02/03/17 20:36; Admin Dose 1 TAB; Start 02/02/17 at 16:00 Lactulose (Enulose) 20 gm DAILY PRN PO CONSTIPATION; Start 02/02/17 at 16:00 IV Flush (NS 10 ml) 10 ml PRN PRN IV IV PROTOCOL; Start 02/06/17 at 20:00 Oxymetazoline HCl (Afrin [place]) 2 spray BID NASAL Last administered on 08:30; Admin Dose 2 SPRAY; Start 02/07/17 at 15:00 Apixaban (Eliquis) 5 mg BID PO Last administered on 02/24/17 08:26; Admin Dose 5 MG; Start 02/21/17 at 09:00 Furosemide (Lasix) 40 mg DAILY PO Last administered on 02/24/17 08:26; Admin Dose 40 MG; Start 02/19/17 at 09:00 Acetazolamide 500 mg 500 mg DAILY IV ; Start 02/25/17 at 09:00; Stop 02/26/17 at 09:01 Potassium Chloride/Sodium Chloride (KCl/NS) 110 ml @ 55 mls/hr ONCE ONCE IVPB ; Start 02/24/17 at 13:30; Stop 02/24/17 at 15:29 SAQIB DAVIS Feb 24, 2017 12:39
[2017-02-24] MEDS ORDERED: POTASSIUM CHLORIDE 20 MEQ in SOD CHLORIDE 0.9% 100 ML IVPB ONE (13:30)
--- NOTE | 2017-02-24 14:27 | CONS ---
Date/Time of Note Date/Time of Note DATE: 02/24/17 TIME: 14:24 Assessment/Plan Assessment/Plan Chief Complaint/Hosp Course IMPRESSION: 1. Chest pain. Assess for acute coronary syndrome in a patient with lung cancer, undergoing chemotherapy, likely secondary to lung cancer.-negative trop x3 2. Abnormal electrocardiogram with nonspecific ST and T-wave abnormalities, assess for acute coronary syndrome. 3. Bradycardia, transient while on beta matthew. 4. Hypotension-improved 5. Shortness of [id number] PNA 6. Lung cancer with ongoing chemotherapy. 7. Leukocytosis. 8. Anemia. 9. Thrombocytopenia-stable 10. Possible ileus by most recent KUB [id number] on eliquis 12. Renal failure-again slight worsening Recc: -Tel -Continue eliquis -Continue abx;'s and f/u cx data -Continue statin -Continue abx's and f/u cx data -pulmonary toliet -Follow BP closely -Continue lasix now daily PO/diamox and follow volume status closely -Continue marinol for decreased appetite Problems: Consultation Date/Type/Reason Admit Date/Time Jan 31, 2017 at 18:59 Initial Consult Date 02/01/17 Type of Consultation: cardiology Reason for Consultation CHF Referring Provider: MARYAM FARMER MD Exam/Review of Systems Vital Signs Vitals Vital Signs Date Time Temp Pulse Resp B/P Pulse Ox O2 Delivery O2 Flow Rate FiO2 02/24/17 13:12 86 20 95 Nasal Cannula 4.0 02/24/17 11:48 98.3 95/62 02/24/17 03:19 50 Intake and Output 02/23/17 02/23/17 02/24/17 15:00 23:00 07:00 Intake Total 650 ml 150 ml Output Total 550 ml Balance 650 ml -400 ml Exam Review of Systems: CONSTITUTIONAL: No fevers, chills. PULMONARY: No sob CARDIOVASCULAR: No chest pain/palpitations GASTROINTESTINAL: No nausea/vomiting. GENITOURINARY: No hematuria/dysuria. MUSCULOSKELETAL: No myagias/arthalgias. PSYCHIATRIC: The patient denies depression. NEUROLOGIC: No weakness Constitutional: alert, oriented Psych: no complaints Head: normocephalic ENMT: mucosa pink and moist Neck: jvd (9-10 cm water), supple Respiratory: diminished breath sounds (at bases/B and upper airway rhoncherous sounds) Cardiovascular: regular rate and rhythm Gastrointestinal: non-tender, soft Musculoskeletal: muscle tone (normal) Extremities: pitting pedal edema (bilateral) Neurological: other (No focal deficits) Results Result Diagram: 02/24/1790202/24/17902 Results 24 hrs Laboratory Tests Test 02/24/17 09:03 White Blood Count 6.4 # Red Blood Count 2.95 L Hemoglobin 9.6 L Hematocrit 31.6 L Mean Corpuscular Volume 107.1 H Mean Corpuscular Hemoglobin 32.5 Mean Corpuscular Hemoglobin Concent 30.4 L Red Cell Distribution Width 14.6 H Platelet Count 135 L Mean Platelet Volume 11.2 H Neutrophils % 69.2 Lymphocytes % 18.0 Monocytes % 9.2 Eosinophils % 2.8 Basophils % 0.5 Nucleated Red Blood Cells % 0.0 Neutrophils # 4.4 Lymphocytes # 1.2 Monocytes # 0.6 Eosinophils # 0.2 Basophils # 0.0 Nucleated Red Blood Cells # 0.0 Prothrombin Time 15.3 H Prothrombin Time Ratio 1.2 INR International Normalized Ratio 1.20 Activated Partial Thromboplast Time 36.0 H Sodium Level 140 Potassium Level 3.3 L Chloride Level 95 L Carbon Dioxide Level 39 H Anion Gap 9 Blood Urea Nitrogen 18 Creatinine 1.71 H Glucose Level 83 Calcium Level 8.4 Total Bilirubin 0.2 Direct Bilirubin 0.00 Indirect Bilirubin 0.2 Aspartate Amino Transf (AST/SGOT) 32 Alanine Aminotransferase (ALT/SGPT) 29 Alkaline Phosphatase 81 Total Protein 5.8 L Albumin 3.4 Globulin 2.40 Albumin/Globulin Ratio 1.41 Medications Medications Current Medications Atorvastatin Calcium (Lipitor) 20 mg QHS PO Last administered on 02/23/17 20: 45; Admin Dose 20 MG; Start 01/31/17 at 21:00 Escitalopram Oxalate (Lexapro) 10 mg DAILY PO Last administered on 02/24/17 08 :26; Admin Dose 10 MG; Start 02/01/17 at 09:00 Ondansetron HCl (Zofran Inj) 4 mg Q6 PRN IV NAUSEA Last administered on 08:25; Admin Dose 4 MG; Start 01/31/17 at 19:30 Morphine Sulfate (Ms Contin (Er)) 15 mg BID PO Last administered on 02/24/17 08:26; Admin Dose 15 MG; Start 01/31/17 at 23:00 Morphine Sulfate (morphine) 4 mg Q4H PRN IV SEVERE PAIN LEVEL 7-10 Last administered on 02/22/17 12:00; Admin Dose 4 MG; Start 01/31/17 at 23:00 Nitroglycerin (Nitroglycerin (Sl Tab) 0.4 Mg) 1 tab Q5M PRN SL ANGINA Last administered on 02/19/17 19:48; Admin Dose 1 TAB; Start 02/01/17 at 11:30 Pantoprazole (Protonix Tab) 40 mg DAILY@06 PO Last administered on 02/24/17 06 :41; Admin Dose 40 MG; Start 02/02/17 at 06:00 Voriconazole (Vfend) 200 mg BID PO Last administered on 02/24/17 08:26; Admin Dose 200 MG; Start 02/01/17 at 21:00 Senna (Senokot) 1 tab DAILY PRN PO CONSTIPATION Last administered on 02/03/17 20:36; Admin Dose 1 TAB; Start 02/02/17 at 16:00 Lactulose (Enulose) 20 gm DAILY PRN PO CONSTIPATION; Start 02/02/17 at 16:00 IV Flush (NS 10 ml) 10 ml PRN PRN IV IV PROTOCOL; Start 02/06/17 at 20:00 Oxymetazoline HCl (Afrin [place]) 2 spray BID NASAL Last administered on 08:30; Admin Dose 2 SPRAY; Start 02/07/17 at 15:00 Apixaban (Eliquis) 5 mg BID PO Last administered on 02/24/17 08:26; Admin Dose 5 MG; Start 02/21/17 at 09:00 Furosemide (Lasix) 40 mg DAILY PO Last administered on 02/24/17 08:26; Admin Dose 40 MG; Start 02/19/17 at 09:00 Acetazolamide 500 mg 500 mg DAILY IV ; Start 02/25/17 at 09:00; Stop 02/26/17 at 09:01 Potassium Chloride/Sodium Chloride (KCl/NS) 110 ml @ 55 mls/hr ONCE ONCE IVPB Last administered on 02/24/17 13:27; Admin Dose 55 MLS/HR; Start 02/24/17 at 13:30; Stop 02/24/17 at 15:29 MARIAA ÁLVAREZ Feb 24, 2017 14:27
--- NOTE | 2017-02-24 15:09 | CONS ---
Date/Time of Note Date/Time of Note DATE: 02/24/17 TIME: 15:07 Assessment/Plan Assessment/Plan Chief Complaint/Hosp Course - Problems: Additional Assessment/Plan - hypokalemia- k replaced, fu labs 1. Anasarca- Fluid overload multifactorial s/p Diuresis with IV lasix and IV albumin 2. acute kidney injury - Cr 1.7 - UO x3 voided as recorded 3. post obstructive PNA 4. Advanced non small lung CA 5. acute respiratory failure 6. Right subclavian Deep venous thrombosis 7. acute on chronic diastolic heart failure 8. h/o fungal pneumonia 9. Hyperlipidemia 10. hypothyroidism 11. Metabolic alkalosis 12. Anemia Plan: -continue current care -s/p IV albumin with Lasix diureisis- Cr 1.7 today -HCo3 imrpoved to 39 today/cont Diomax 500mg iV BID - will decrease dose if HCO3 trends down -IV abx as per ID and PMD, renally dose all abx -Will follow up - on Eliquis for DVT for right subclavian DVT. - Monitor Electrolytes and replace as needed. Plan of care sha Irving Consultation Date/Type/Reason Admit Date/Time Jan 31, 2017 at 18:59 Initial Consult Date 02/01/17 Type of Consultation: cardiology Referring Provider: MARYAM FARMER MD 24 HR Interval Summary Free Text/Dictation Cr 1.7, denies any complaints, HCo3 improved to 39 with IV Diamox, sha staff Constitutional: requiring O2 Detailed Summary Respiratory: shortness of breath Cardiovascular: no complaints Gastrointestinal: no complaints Genitourinary: no complaints Musculoskeletal: no complaints Exam/Review of Systems Vital Signs Vitals Vital Signs Date Time Temp Pulse Resp B/P Pulse Ox O2 Delivery O2 Flow Rate FiO2 02/24/17 13:12 86 20 95 Nasal Cannula 4.0 02/24/17 11:48 98.3 95/62 02/24/17 03:19 50 Intake and Output 02/23/17 02/23/17 02/24/17 15:00 23:00 07:00 Intake Total 650 ml 150 ml Output Total 550 ml Balance 650 ml -400 ml Exam Constitutional: alert, obese Respiratory: diminished breath sounds Cardiovascular: nl pulses Gastrointestinal: non-tender, soft Musculoskeletal: nl extremities to inspection Extremities: edema Neurological: nl mental status, nl speech Skin: other Results Result Diagram: 02/24/17 0903 02/24/17 0903 Results 24 hrs Laboratory Tests Test 02/24/17 09:03 White Blood Count 6.4 # Red Blood Count 2.95 L Hemoglobin 9.6 L Hematocrit 31.6 L Mean Corpuscular Volume 107.1 H Mean Corpuscular Hemoglobin 32.5 Mean Corpuscular Hemoglobin Concent 30.4 L Red Cell Distribution Width 14.6 H Platelet Count 135 L Mean Platelet Volume 11.2 H Neutrophils % 69.2 Lymphocytes % 18.0 Monocytes % 9.2 Eosinophils % 2.8 Basophils % 0.5 Nucleated Red Blood Cells % 0.0 Neutrophils # 4.4 Lymphocytes # 1.2 Monocytes # 0.6 Eosinophils # 0.2 Basophils # 0.0 Nucleated Red Blood Cells # 0.0 Prothrombin Time 15.3 H Prothrombin Time Ratio 1.2 INR International Normalized Ratio 1.20 Activated Partial Thromboplast Time 36.0 H Sodium Level 140 Potassium Level 3.3 L Chloride Level 95 L Carbon Dioxide Level 39 H Anion Gap 9 Blood Urea Nitrogen 18 Creatinine 1.71 H Glucose Level 83 Calcium Level 8.4 Total Bilirubin 0.2 Direct Bilirubin 0.00 Indirect Bilirubin 0.2 Aspartate Amino Transf (AST/SGOT) 32 Alanine Aminotransferase (ALT/SGPT) 29 Alkaline Phosphatase 81 Total Protein 5.8 L Albumin 3.4 Globulin 2.40 Albumin/Globulin Ratio 1.41 Medications Medications Current Medications Atorvastatin Calcium (Lipitor) 20 mg QHS PO Last administered on 02/23/17 20: 45; Admin Dose 20 MG; Start 01/31/17 at 21:00 Escitalopram Oxalate (Lexapro) 10 mg DAILY PO Last administered on 02/24/17 08 :26; Admin Dose 10 MG; Start 02/01/17 at 09:00 Ondansetron HCl (Zofran Inj) 4 mg Q6 PRN IV NAUSEA Last administered on 08:25; Admin Dose 4 MG; Start 01/31/17 at 19:30 Morphine Sulfate (Ms Contin (Er)) 15 mg BID PO Last administered on 02/24/17 08:26; Admin Dose 15 MG; Start 01/31/17 at 23:00 Morphine Sulfate (morphine) 4 mg Q4H PRN IV SEVERE PAIN LEVEL 7-10 Last administered on 02/22/17 12:00; Admin Dose 4 MG; Start 01/31/17 at 23:00 Nitroglycerin (Nitroglycerin (Sl Tab) 0.4 Mg) 1 tab Q5M PRN SL ANGINA Last administered on 02/19/17 19:48; Admin Dose 1 TAB; Start 02/01/17 at 11:30 Pantoprazole (Protonix Tab) 40 mg DAILY@06 PO Last administered on 02/24/17 06 :41; Admin Dose 40 MG; Start 02/02/17 at 06:00 Voriconazole (Vfend) 200 mg BID PO Last administered on 02/24/17 08:26; Admin Dose 200 MG; Start 02/01/17 at 21:00 Senna (Senokot) 1 tab DAILY PRN PO CONSTIPATION Last administered on 02/03/17 20:36; Admin Dose 1 TAB; Start 02/02/17 at 16:00 Lactulose (Enulose) 20 gm DAILY PRN PO CONSTIPATION; Start 02/02/17 at 16:00 IV Flush (NS 10 ml) 10 ml PRN PRN IV IV PROTOCOL; Start 02/06/17 at 20:00 Oxymetazoline HCl (Afrin [place]) 2 spray BID NASAL Last administered on 08:30; Admin Dose 2 SPRAY; Start 02/07/17 at 15:00 Apixaban (Eliquis) 5 mg BID PO Last administered on 02/24/17 08:26; Admin Dose 5 MG; Start 02/21/17 at 09:00 Furosemide (Lasix) 40 mg DAILY PO Last administered on 02/24/17 08:26; Admin Dose 40 MG; Start 02/19/17 at 09:00 Acetazolamide 500 mg 500 mg DAILY IV ; Start 02/25/17 at 09:00; Stop 02/26/17 at 09:01 Potassium Chloride/Sodium Chloride (KCl/NS) 110 ml @ 55 mls/hr ONCE ONCE IVPB Last administered on 02/24/17 13:27; Admin Dose 55 MLS/HR; Start 02/24/17 at 13:30; Stop 02/24/17 at 15:29 TRAMAINE ELLSWORTH Feb 24, 2017 15:09
--- NOTE | 2017-02-24 17:07 | CONS ---
Date/Time of Note Date/Time of Note DATE: 02/24/17 TIME: 17:06 Assessment/Plan Assessment/Plan Chief Complaint/Hosp Course metastatic lung CANCER, NSCLC - ON CHEMO WITH RELATIVELY STABLE DIS D/W PULM AND RADIOLOGIST CHEMO ON HOLD DURING HOSPITALIZATION HX PANCYTOPENIA POST CHEMO MONITOR BLOOD COUNT CLOSELY LEUKOCYTOSIS PROB 2 TO POST OBSTRUCTIVE PNA HX LEUKOPENIA- POST CHEMO POST NEUPOGEN IN THE PAST RESPIRATORY INSUFFICIENCY ? rivas eval PAIN PAIN CONTROL CHF, FLUID OVERLOAD GENTLE DIURESIS, CONSIDERING BORDERLINE BP POST Hypoxemic respiratory failure IN AUG 2016 , reaction to CARBO severe pneumonia/bronchitis due to enterobacter (09/22/2016-) HX DVT TREATED WITH LOVENOX PT SELF- DC 2 TO HEMOPTYSIS OUTPT History of coronary artery disease. Chronic obstructive pulmonary disease HX TOBACCO SMOKING Problems: Consultation Date/Type/Reason Admit Date/Time Jan 31, 2017 at 18:59 Initial Consult Date 01/31/17 Type of Consultation: HEMEON Referring Provider: MARYAM FARMER MD 24 HR Interval Summary Free Text/Dictation ALL NOTED WEAK Exam/Review of Systems Vital Signs Vitals Vital Signs Date Time Temp Pulse Resp B/P Pulse Ox O2 Delivery O2 Flow Rate FiO2 02/24/17 16:08 84 02/24/17 15:47 98.4 19 105/61 96 02/24/17 13:12 Nasal Cannula 4.0 02/24/17 03:19 50 Intake and Output 02/23/17 02/23/17 02/24/17 15:00 23:00 07:00 Intake Total 650 ml 150 ml Output Total 550 ml Balance 650 ml -400 ml Exam GENERAL: The patient is alert, awake, complaining of chest pain, shortness of breath. NECK: JVP approximately 9 cm water. CHEST: Upper airway transmitted diffuse rhonchorous sounds. Decreased breath sounds at the bases bilaterally. HEART: Regular rate and rhythm. Normal S1, increased S2. 1/6 systolic murmur. Nondisplaced PMI. ABDOMEN: Positive bowel sounds. Soft. EXTREMITIES: 2 + edema, up and lower extremities bilaterally. 1+ pulses bilateral posterior tibial. Results Result Diagram: 02/24/17 0903 02/24/17 0903 Results 24 hrs Laboratory Tests Test 02/24/17 09:03 White Blood Count 6.4 # Red Blood Count 2.95 L Hemoglobin 9.6 L Hematocrit 31.6 L Mean Corpuscular Volume 107.1 H Mean Corpuscular Hemoglobin 32.5 Mean Corpuscular Hemoglobin Concent 30.4 L Red Cell Distribution Width 14.6 H Platelet Count 135 L Mean Platelet Volume 11.2 H Neutrophils % 69.2 Lymphocytes % 18.0 Monocytes % 9.2 Eosinophils % 2.8 Basophils % 0.5 Nucleated Red Blood Cells % 0.0 Neutrophils # 4.4 Lymphocytes # 1.2 Monocytes # 0.6 Eosinophils # 0.2 Basophils # 0.0 Nucleated Red Blood Cells # 0.0 Prothrombin Time 15.3 H Prothrombin Time Ratio 1.2 INR International Normalized Ratio 1.20 Activated Partial Thromboplast Time 36.0 H Sodium Level 140 Potassium Level 3.3 L Chloride Level 95 L Carbon Dioxide Level 39 H Anion Gap 9 Blood Urea Nitrogen 18 Creatinine 1.71 H Glucose Level 83 Calcium Level 8.4 Total Bilirubin 0.2 Direct Bilirubin 0.00 Indirect Bilirubin 0.2 Aspartate Amino Transf (AST/SGOT) 32 Alanine Aminotransferase (ALT/SGPT) 29 Alkaline Phosphatase 81 Total Protein 5.8 L Albumin 3.4 Globulin 2.40 Albumin/Globulin Ratio 1.41 Medications Medications Current Medications Atorvastatin Calcium (Lipitor) 20 mg QHS PO Last administered on 02/23/17 20: 45; Admin Dose 20 MG; Start 01/31/17 at 21:00 Escitalopram Oxalate (Lexapro) 10 mg DAILY PO Last administered on 02/24/17 08 :26; Admin Dose 10 MG; Start 02/01/17 at 09:00 Ondansetron HCl (Zofran Inj) 4 mg Q6 PRN IV NAUSEA Last administered on 08:25; Admin Dose 4 MG; Start 01/31/17 at 19:30 Morphine Sulfate (Ms Contin (Er)) 15 mg BID PO Last administered on 02/24/17 08:26; Admin Dose 15 MG; Start 01/31/17 at 23:00 Morphine Sulfate (morphine) 4 mg Q4H PRN IV SEVERE PAIN LEVEL 7-10 Last administered on 02/22/17 12:00; Admin Dose 4 MG; Start 01/31/17 at 23:00 Nitroglycerin (Nitroglycerin (Sl Tab) 0.4 Mg) 1 tab Q5M PRN SL ANGINA Last administered on 02/19/17 19:48; Admin Dose 1 TAB; Start 02/01/17 at 11:30 Pantoprazole (Protonix Tab) 40 mg DAILY@06 PO Last administered on 02/24/17 06 :41; Admin Dose 40 MG; Start 02/02/17 at 06:00 Voriconazole (Vfend) 200 mg BID PO Last administered on 02/24/17 08:26; Admin Dose 200 MG; Start 02/01/17 at 21:00 Senna (Senokot) 1 tab DAILY PRN PO CONSTIPATION Last administered on 02/03/17 20:36; Admin Dose 1 TAB; Start 02/02/17 at 16:00 Lactulose (Enulose) 20 gm DAILY PRN PO CONSTIPATION; Start 02/02/17 at 16:00 IV Flush (NS 10 ml) 10 ml PRN PRN IV IV PROTOCOL; Start 02/06/17 at 20:00 Oxymetazoline HCl (Afrin [place]) 2 spray BID NASAL Last administered on 08:30; Admin Dose 2 SPRAY; Start 02/07/17 at 15:00 Apixaban (Eliquis) 5 mg BID PO Last administered on 02/24/17 08:26; Admin Dose 5 MG; Start 02/21/17 at 09:00 Furosemide (Lasix) 40 mg DAILY PO Last administered on 02/24/17 08:26; Admin Dose 40 MG; Start 02/19/17 at 09:00 Acetazolamide (Diamox) 500 mg DAILY IV ; Start 02/25/17 at 09:00; Stop 02/26/17 at 09:01 DAHIANA BABCOCK MD Feb 24, 2017 17:07
[2017-02-24] MEDS: ATORVASTATIN 20 MG TAB PO SCH (20:26)
[2017-02-25] VITALS (11 sets, daily range): BP systolic 92–136; BP diastolic 52–77; PULSE 76–85; RESP 17–18
[2017-02-25] MEDS: LEVALBUTEROL (NEB) 0.63 MG/3 ML AMP HHN SCH ×4 (01:56→20:13)
[2017-02-25] MEDS: PANTOPRAZOLE (EC) 40 MG TAB PO SCH (06:12)
[2017-02-25] MEDS: LEVOTHYROXINE 75 MCG TAB PO SCH (06:12)
[2017-02-25] MEDS: DRONABINOL 2.5 MG CAP PO SCH ×3 (06:13→16:55)
[2017-02-25] MEDS: ACETAZOLAMIDE 500 MG INJ IV SCH (08:45)
[2017-02-25] MEDS: ESCITALOPRAM 10 MG TAB PO SCH (08:46)
[2017-02-25] MEDS: morphine (ER) 15 MG TAB PO SCH ×2 (08:46→21:03)
[2017-02-25] MEDS: APIXABAN 5 MG TABLET PO SCH ×2 (08:47→21:03)
[2017-02-25] MEDS: FUROSEMIDE 40 MG TAB PO SCH (08:47)
[2017-02-25] MEDS: OXYMETAZOLINE 0.05% 15 ML NAS SPRAY NASAL SCH ×2 (08:48→21:05)
[2017-02-25] MEDS: VORICONAZOLE 200 MG TAB PO SCH ×2 (08:50→21:03)
--- NOTE | 2017-02-25 11:16 | PN ---
Date/Time of Note Date/Time of Note DATE: 02/25/17 TIME: 11:16 Assessment/Plan VTE Prophylaxis VTE Prophylaxis Intervention: other Lines/Catheters IV C[facility]ter Type ([facility] PICC Line Central line still needed: Yes Urinary Cath still in place: No Assessment/Plan Chief Complaint/Hosp Course - LIZ, Dr. Irving is following in nephrology consultation. - Post-obstructive pneumonia Dr. Philly perry is following infection disease consultation. Status post treatment with antibiotics. - Advanced non-small cell lung CA, Dr. Scanlon is following in oncology consultation. - Acute respiratory failure secondary to above. is following in pulmonology consultation. - Nonocclusive deep venous thrombosis bilateral upper extremities. Continue Eliquis. - Acute on chronic diastolic congestive heart failure, continue gentle diuresis , continue to monitor electrolytes. - h/o fungal pneumonia, on maintenance voriconazole - CAD, continue aspirin. - Hyperlipidemia, continue statin - Hypothyroidism, continue levothyroxine. Problems: Subjective 24 Hr Interval Summary Free Text/Dictation Seems to be breathing better Exam/Review of Systems Vital Signs Vitals Vital Signs Date Time Temp Pulse Resp B/P Pulse Ox O2 Delivery O2 Flow Rate FiO2 02/25/17 08:12 98.9 83 17 118/66 100 02/25/17 08:10 Nasal Cannula 02/25/17 08:10 4.0 02/25/17 03:35 50 Intake and Output 02/24/17 02/24/17 02/25/17 15:00 23:00 07:00 Intake Total 710 ml 150 ml Balance 710 ml 150 ml Exam Constitutional: well developed Head: atraumatic, normocephalic Neck: supple Respiratory: crackles/rales, wheezing Cardiovascular: regular rate and rhythm Gastrointestinal: non-tender, soft Extremities: normal pulses Results Result Diagram: 02/24/1790202/24/17902 Medications Medications Current Medications Atorvastatin Calcium (Lipitor) 20 mg QHS PO Last administered on 02/24/17 20: 26; Admin Dose 20 MG; Start 01/31/17 at 21:00 Escitalopram Oxalate (Lexapro) 10 mg DAILY PO Last administered on 02/25/17 08 :46; Admin Dose 10 MG; Start 02/01/17 at 09:00 Ondansetron HCl (Zofran Inj) 4 mg Q6 PRN IV NAUSEA Last administered on 08:25; Admin Dose 4 MG; Start 01/31/17 at 19:30 Morphine Sulfate (Ms Contin (Er)) 15 mg BID PO Last administered on 02/25/17 08:46; Admin Dose 15 MG; Start 01/31/17 at 23:00 Morphine Sulfate (morphine) 4 mg Q4H PRN IV SEVERE PAIN LEVEL 7-10 Last administered on 02/22/17 12:00; Admin Dose 4 MG; Start 01/31/17 at 23:00 Nitroglycerin (Nitroglycerin (Sl Tab) 0.4 Mg) 1 tab Q5M PRN SL ANGINA Last administered on 02/19/17 19:48; Admin Dose 1 TAB; Start 02/01/17 at 11:30 Pantoprazole (Protonix Tab) 40 mg DAILY@06 PO Last administered on 02/25/17 06 :12; Admin Dose 40 MG; Start 02/02/17 at 06:00 Voriconazole (Vfend) 200 mg BID PO Last administered on 02/25/17 08:50; Admin Dose 200 MG; Start 02/01/17 at 21:00 Senna (Senokot) 1 tab DAILY PRN PO CONSTIPATION Last administered on 02/03/17 20:36; Admin Dose 1 TAB; Start 02/02/17 at 16:00 Lactulose (Enulose) 20 gm DAILY PRN PO CONSTIPATION; Start 02/02/17 at 16:00 IV Flush (NS 10 ml) 10 ml PRN PRN IV IV PROTOCOL; Start 02/06/17 at 20:00 Oxymetazoline HCl (Afrin [place]) 2 spray BID NASAL Last administered on 08:48; Admin Dose 2 SPRAY; Start 02/07/17 at 15:00 Apixaban (Eliquis) 5 mg BID PO Last administered on 02/25/17 08:47; Admin Dose 5 MG; Start 02/21/17 at 09:00 Furosemide (Lasix) 40 mg DAILY PO Last administered on 02/25/17 08:47; Admin Dose 40 MG; Start 02/19/17 at 09:00 Acetazolamide (Diamox) 500 mg DAILY IV Last administered on 02/25/17 08:45; Admin Dose 500 MG; Start 02/25/17 at 09:00; Stop 02/26/17 at 09:01 SAQIB DAVIS Feb 25, 2017 11:16
--- NOTE | 2017-02-25 11:59 | CONS ---
Date/Time of Note Date/Time of Note DATE: 02/25/17 TIME: 11:57 Assessment/Plan Assessment/Plan Chief Complaint/Hosp Course - h/o sepsis due to recurrent pneumonia, and to a lessor degree due to paronychia. 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 Aspergillus antibody was >1:64 but aspergillus antigen in serum by EIA was negative during his last admission. 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 given his immunocompromised state; monitor LFTs weekly, last checked on 02/21/2017 - will initiate treatment if the above tests identify respiratory pathogens management d/w Pt and his RN Problems: Consultation Date/Type/Reason Admit Date/Time Jan 31, 2017 at 18:59 Initial Consult Date 02/14/17 Type of Consultation: ID Referring Provider: MARYAM FARMER MD 24 HR Interval Summary Constitutional: no complaints Detailed Summary Eyes: no complaints ENT: no complaints Respiratory: cough, shortness of breath, No pleuritic pain Cardiovascular: no complaints Gastrointestinal: no complaints Genitourinary: no complaints Musculoskeletal: no complaints Skin: skin lesions (of nail after chemo, no pain from L 2nd finger) Neurologic: no complaints Exam/Review of Systems Vital Signs Vitals Vital Signs Date Time Temp Pulse Resp B/P Pulse Ox O2 Delivery O2 Flow Rate FiO2 02/25/17 08:12 98.9 83 17 118/66 100 02/25/17 08:10 Nasal Cannula 02/25/17 08:10 4.0 02/25/17 03:35 50 Intake and Output 02/24/17 02/24/17 02/25/17 15:00 23:00 07:00 Intake Total 710 ml 150 ml Balance 710 ml 150 ml Exam Constitutional: alert, frail, obese Psych: nl mood/affect, no complaints Head: normocephalic, other (alopecia) Eyes: nl conjunctiva, nl lids, nl sclera ENMT: nl external ears & nose, nl nasal mucosa & septum Respiratory: wheezing Cardiovascular: nl pulses, regular rate and rhythm Gastrointestinal: non-tender, soft Musculoskeletal: nl extremities to inspection Extremities: No edema Neurological: [employer] II-XII intact, nl mental status Skin: rash or lesions (crust on L 2nd fingernail bed, nail changes consistent with chemo) Results Result Diagram: 02/24/1703 02/24/17 0903 Medications Medications Current Medications Atorvastatin Calcium (Lipitor) 20 mg QHS PO Last administered on 02/24/17 20: 26; Admin Dose 20 MG; Start 01/31/17 at 21:00 Escitalopram Oxalate (Lexapro) 10 mg DAILY PO Last administered on 02/25/17 08 :46; Admin Dose 10 MG; Start 02/01/17 at 09:00 Ondansetron HCl (Zofran Inj) 4 mg Q6 PRN IV NAUSEA Last administered on 08:25; Admin Dose 4 MG; Start 01/31/17 at 19:30 Morphine Sulfate (Ms Contin (Er)) 15 mg BID PO Last administered on 02/25/17 08:46; Admin Dose 15 MG; Start 01/31/17 at 23:00 Morphine Sulfate (morphine) 4 mg Q4H PRN IV SEVERE PAIN LEVEL 7-10 Last administered on 02/22/17 12:00; Admin Dose 4 MG; Start 01/31/17 at 23:00 Nitroglycerin (Nitroglycerin (Sl Tab) 0.4 Mg) 1 tab Q5M PRN SL ANGINA Last administered on 02/19/17 19:48; Admin Dose 1 TAB; Start 02/01/17 at 11:30 Pantoprazole (Protonix Tab) 40 mg DAILY@06 PO Last administered on 02/25/17 06 :12; Admin Dose 40 MG; Start 02/02/17 at 06:00 Voriconazole (Vfend) 200 mg BID PO Last administered on 02/25/17 08:50; Admin Dose 200 MG; Start 02/01/17 at 21:00 Senna (Senokot) 1 tab DAILY PRN PO CONSTIPATION Last administered on 02/03/17 20:36; Admin Dose 1 TAB; Start 02/02/17 at 16:00 Lactulose (Enulose) 20 gm DAILY PRN PO CONSTIPATION; Start 02/02/17 at 16:00 IV Flush (NS 10 ml) 10 ml PRN PRN IV IV PROTOCOL; Start 02/06/17 at 20:00 Oxymetazoline HCl (Afrin [place]) 2 spray BID NASAL Last administered on 08:48; Admin Dose 2 SPRAY; Start 02/07/17 at 15:00 Apixaban (Eliquis) 5 mg BID PO Last administered on 02/25/17 08:47; Admin Dose 5 MG; Start 02/21/17 at 09:00 Furosemide (Lasix) 40 mg DAILY PO Last administered on 02/25/17 08:47; Admin Dose 40 MG; Start 02/19/17 at 09:00 Acetazolamide (Diamox) 500 mg DAILY IV Last administered on 02/25/17 08:45; Admin Dose 500 MG; Start 02/25/17 at 09:00; Stop 02/26/17 at 09:01 LUKE CAAL M.D. Feb 25, 2017 11:59
--- NOTE | 2017-02-25 14:32 | CONS ---
Date/Time of Note Date/Time of Note DATE: 02/25/17 TIME: 14:29 Assessment/Plan Assessment/Plan Chief Complaint/Hosp Course IMPRESSION: 1. Chest pain. Assess for acute coronary syndrome in a patient with lung cancer, undergoing chemotherapy, likely secondary to lung cancer.-negative trop x3 2. Abnormal electrocardiogram with nonspecific ST and T-wave abnormalities, assess for acute coronary syndrome. 3. Bradycardia, transient while on beta matthew. 4. Hypotension-improved 5. Shortness of fbiegs-fbiy-wmxgewjpsfo PNA 6. Lung cancer with ongoing chemotherapy. 7. Leukocytosis. 8. Anemia. 9. Thrombocytopenia-stable 10. Possible ileus by most recent KUB 11.DVT-RUE on eliquis 12. Renal failure-again slight worsening Recc: -Tel -Continue eliquis -Continue abx;'s and f/u cx data -Continue statin -Continue abx's and f/u cx data -pulmonary toliet -Follow BP closely -Continue lasix now daily PO/diamox and follow volume status closely -Continue marinol for decreased appetite Problems: Consultation Date/Type/Reason Admit Date/Time Jan 31, 2017 at 18:59 Initial Consult Date 02/01/17 Type of Consultation: cardiology Reason for Consultation chest pain Referring Provider: MARYAM FARMER MD Exam/Review of Systems Vital Signs Vitals Vital Signs Date Time Temp Pulse Resp B/P Pulse Ox O2 Delivery O2 Flow Rate FiO2 02/25/17 13:31 4.0 02/25/17 13:31 85 20 95 Nasal Cannula 02/25/17 12:05 98.0 116/77 02/25/17 03:35 50 Intake and Output 02/24/17 02/24/17 02/25/17 15:00 23:00 07:00 Intake Total 710 ml 150 ml Balance 710 ml 150 ml Exam Review of Systems: CONSTITUTIONAL: No fevers, chills. PULMONARY: Positive sob CARDIOVASCULAR: No chest pain/palpitations GASTROINTESTINAL: No nausea/vomiting. GENITOURINARY: No hematuria/dysuria. MUSCULOSKELETAL: No myagias/arthalgias. PSYCHIATRIC: The patient denies depression. NEUROLOGIC: No weakness Constitutional: alert, oriented Psych: no complaints Head: normocephalic ENMT: mucosa pink and moist Neck: jvd (9 cm water), supple Respiratory: diminished breath sounds Cardiovascular: regular rate and rhythm Gastrointestinal: non-tender, soft Musculoskeletal: muscle tone (normal) Extremities: edema (none) Neurological: other (No focal deficits) Results Result Diagram: 02/24/1790202/24/17 09 Medications Medications Current Medications Atorvastatin Calcium (Lipitor) 20 mg QHS PO Last administered on 02/24/17 20: 26; Admin Dose 20 MG; Start 01/31/17 at 21:00 Escitalopram Oxalate (Lexapro) 10 mg DAILY PO Last administered on 02/25/17 08 :46; Admin Dose 10 MG; Start 02/01/17 at 09:00 Ondansetron HCl (Zofran Inj) 4 mg Q6 PRN IV NAUSEA Last administered on 08:25; Admin Dose 4 MG; Start 01/31/17 at 19:30 Morphine Sulfate (Ms Contin (Er)) 15 mg BID PO Last administered on 02/25/17 08:46; Admin Dose 15 MG; Start 01/31/17 at 23:00 Morphine Sulfate (morphine) 4 mg Q4H PRN IV SEVERE PAIN LEVEL 7-10 Last administered on 02/22/17 12:00; Admin Dose 4 MG; Start 01/31/17 at 23:00 Nitroglycerin (Nitroglycerin (Sl Tab) 0.4 Mg) 1 tab Q5M PRN SL ANGINA Last administered on 02/19/17 19:48; Admin Dose 1 TAB; Start 02/01/17 at 11:30 Pantoprazole (Protonix Tab) 40 mg DAILY@06 PO Last administered on 02/25/17 06 :12; Admin Dose 40 MG; Start 02/02/17 at 06:00 Voriconazole (Vfend) 200 mg BID PO Last administered on 02/25/17 08:50; Admin Dose 200 MG; Start 02/01/17 at 21:00 Senna (Senokot) 1 tab DAILY PRN PO CONSTIPATION Last administered on 02/03/17 20:36; Admin Dose 1 TAB; Start 02/02/17 at 16:00 Lactulose (Enulose) 20 gm DAILY PRN PO CONSTIPATION; Start 02/02/17 at 16:00 IV Flush (NS 10 ml) 10 ml PRN PRN IV IV PROTOCOL; Start 02/06/17 at 20:00 Oxymetazoline HCl (Afrin [place]) 2 spray BID NASAL Last administered on 08:48; Admin Dose 2 SPRAY; Start 02/07/17 at 15:00 Apixaban (Eliquis) 5 mg BID PO Last administered on 02/25/17 08:47; Admin Dose 5 MG; Start 02/21/17 at 09:00 Furosemide (Lasix) 40 mg DAILY PO Last administered on 02/25/17 08:47; Admin Dose 40 MG; Start 02/19/17 at 09:00 Acetazolamide (Diamox) 500 mg DAILY IV Last administered on 02/25/17 08:45; Admin Dose 500 MG; Start 02/25/17 at 09:00; Stop 02/26/17 at 09:01 MARIAA ÁLVAREZ Feb 25, 2017 14:32
--- NOTE | 2017-02-25 18:02 | CONS ---
Date/Time of Note Date/Time of Note DATE: 02/25/17 TIME: 18:01 Assessment/Plan Assessment/Plan Chief Complaint/Hosp Course metastatic lung CANCER, NSCLC - ON CHEMO WITH RELATIVELY STABLE DIS D/W PULM AND RADIOLOGIST CHEMO ON HOLD DURING HOSPITALIZATION HX PANCYTOPENIA POST CHEMO MONITOR BLOOD COUNT CLOSELY LEUKOCYTOSIS PROB 2 TO POST OBSTRUCTIVE PNA HX LEUKOPENIA- POST CHEMO POST NEUPOGEN IN THE PAST RESPIRATORY INSUFFICIENCY PAIN PAIN CONTROL CHF, FLUID OVERLOAD GENTLE DIURESIS, CONSIDERING BORDERLINE BP POST Hypoxemic respiratory failure IN AUG 2016 , reaction to CARBO severe pneumonia/bronchitis due to enterobacter (09/22/2016-) HX DVT TREATED WITH LOVENOX PT SELF- DC 2 TO HEMOPTYSIS OUTPT History of coronary artery disease. Chronic obstructive pulmonary disease HX TOBACCO SMOKING Problems: Consultation Date/Type/Reason Admit Date/Time Jan 31, 2017 at 18:59 Initial Consult Date 01/31/17 [facility]ation[facility] Referring Provider: MARYAM FARMER MD 24 HR Interval Summary Free Text/Dictation ALL NOTED NAD VERY WEAK Exam/Review of Systems Vital Signs Vitals Vital Signs Date Time Temp Pulse Resp B/P Pulse Ox O2 Delivery O2 Flow Rate FiO2 02/25/17 16:19 97.7 85 17 136/69 95 02/25/17 13:31 4.0 02/25/17 13:31 Nasal Cannula 02/25/17 03:35 50 Intake and Output 02/24/17 02/24/17 02/25/17 15:00 23:00 07:00 Intake Total 710 ml 150 ml Balance 710 ml 150 ml Exam GENERAL: The patient is alert, awake,no chest pain, + shortness of breath. NECK: JVP approximately 9 cm water. CHEST: Upper airway transmitted diffuse rhonchorous sounds. Decreased breath sounds at the bases bilaterally. HEART: Regular rate and rhythm. Normal S1, increased S2. 1/6 systolic murmur. Nondisplaced PMI. ABDOMEN: Positive bowel sounds. Soft. EXTREMITIES: 2 + edema, up and lower extremities bilaterally. 1+ pulses bilateral posterior tibial. Results Result Diagram: 02/24/1790202/24/17902 Medications Medications Current Medications Atorvastatin Calcium (Lipitor) 20 mg QHS PO Last administered on 02/24/17t 20: 26; Admin Dose 20 MG; Start 01/31/17 at 21:00 Escitalopram Oxalate (Lexapro) 10 mg DAILY PO Last administered on 02/25/17 08 :46; Admin Dose 10 MG; Start 02/01/17 at 09:00 Ondansetron HCl (Zofran Inj) 4 mg Q6 PRN IV NAUSEA Last administered on 08:25; Admin Dose 4 MG; Start 01/31/17 at 19:30 Morphine Sulfate (Ms Contin (Er)) 15 mg BID PO Last administered on 02/25/17 08:46; Admin Dose 15 MG; Start 01/31/17 at 23:00 Morphine Sulfate (morphine) 4 mg Q4H PRN IV SEVERE PAIN LEVEL 7-10 Last administered on 02/22/17 12:00; Admin Dose 4 MG; Start 01/31/17 at 23:00 Nitroglycerin (Nitroglycerin (Sl Tab) 0.4 Mg) 1 tab Q5M PRN SL ANGINA Last administered on 02/19/17 19:48; Admin Dose 1 TAB; Start 02/01/17 at 11:30 Pantoprazole (Protonix Tab) 40 mg DAILY@06 PO Last administered on 02/25/17 06 :12; Admin Dose 40 MG; Start 02/02/17 at 06:00 Voriconazole (Vfend) 200 mg BID PO Last administered on 02/25/17 08:50; Admin Dose 200 MG; Start 02/01/17 at 21:00 Senna (Senokot) 1 tab DAILY PRN PO CONSTIPATION Last administered on 02/03/17 20:36; Admin Dose 1 TAB; Start 02/02/17 at 16:00 Lactulose (Enulose) 20 gm DAILY PRN PO CONSTIPATION; Start 02/02/17 at 16:00 IV Flush (NS 10 ml) 10 ml PRN PRN IV IV PROTOCOL; Start 02/06/17 at 20:00 Oxymetazoline HCl (Afrin [place]) 2 spray BID NASAL Last administered on 08:48; Admin Dose 2 SPRAY; Start 02/07/17 at 15:00 Apixaban (Eliquis) 5 mg BID PO Last administered on 02/25/17 08:47; Admin Dose 5 MG; Start 02/21/17 at 09:00 Furosemide (Lasix) 40 mg DAILY PO Last administered on 02/25/17 08:47; Admin Dose 40 MG; Start 02/19/17 at 09:00 Acetazolamide (Diamox) 500 mg DAILY IV Last administered on 02/25/17 08:45; Admin Dose 500 MG; Start 02/25/17 at 09:00; Stop 02/26/17 at 09:01 DAHIANA BABCOCK MD Feb 25, 2017 18:02
[2017-02-25] MEDS: ATORVASTATIN 20 MG TAB PO SCH (21:03)
[2017-02-26] VITALS (16 sets, daily range): BP systolic 105–125; BP diastolic 58–75; PULSE 72–87; RESP 17–20
[2017-02-26] MEDS: LEVALBUTEROL (NEB) 0.63 MG/3 ML AMP HHN SCH ×4 (01:27→20:00)
[2017-02-26] MEDS: ONDANSETRON 4 MG INJ IV PRN (05:32)
[2017-02-26] MEDS: PANTOPRAZOLE (EC) 40 MG TAB PO SCH (06:16)
[2017-02-26] MEDS: LEVOTHYROXINE 75 MCG TAB PO SCH (06:16)
[2017-02-26] MEDS: DRONABINOL 2.5 MG CAP PO SCH ×3 (07:52→17:16)
[2017-02-26] MEDS: ACETAZOLAMIDE 500 MG INJ IV SCH (08:01)
[2017-02-26] MEDS: morphine (ER) 15 MG TAB PO SCH ×2 (08:01→21:02)
[2017-02-26] MEDS: ESCITALOPRAM 10 MG TAB PO SCH (08:01)
[2017-02-26] MEDS: APIXABAN 5 MG TABLET PO SCH ×2 (08:01→21:02)
[2017-02-26] MEDS: VORICONAZOLE 200 MG TAB PO SCH ×2 (08:01→21:02)
[2017-02-26] MEDS: FUROSEMIDE 40 MG TAB PO SCH (08:01)
[2017-02-26] MEDS: OXYMETAZOLINE 0.05% 15 ML NAS SPRAY NASAL SCH ×2 (08:02→21:02)
--- NOTE | 2017-02-26 11:24 | CONS ---
Date/Time of Note Date/Time of Note DATE: 02/26/17 TIME: 10:39 Assessment/Plan Assessment/Plan Chief Complaint/Hosp Course - h/o sepsis due to recurrent pneumonia, and to a lessor degree due to paronychia. 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 Aspergillus antibody was >1:64 but aspergillus antigen in serum by EIA was negative during his last admission. 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 given his immunocompromised state; monitor LFTs weekly, last checked on 02/24/2017 - will initiate treatment if the culture grows respiratory pathogens management d/w Pt Problems: Consultation Date/Type/Reason Admit Date/Time Jan 31, 2017 at 18:59 Initial Consult Date 02/14/17 Type of Consultation: ID Referring Provider: MARYAM FARMER MD 24 HR Interval Summary Constitutional: other (no new complaints) Detailed Summary Eyes: no complaints ENT: no complaints Respiratory: other (chest tightness), shortness of breath Cardiovascular: no complaints Gastrointestinal: no complaints Genitourinary: no complaints Musculoskeletal: no complaints Skin: no complaints Exam/Review of Systems Vital Signs Vitals Vital Signs Date Time Temp Pulse Resp B/P Pulse Ox O2 Delivery O2 Flow Rate FiO2 02/26/17 08:21 82 02/26/17 07:56 Nasal Cannula 02/26/17 07:36 20 96 4.0 02/26/17 07:32 98.0 105/67 02/26/17 03:01 50 Intake and Output 02/25/17 02/25/17 02/26/17 15:00 23:00 07:00 Intake Total 500 ml Balance 500 ml Exam Constitutional: frail, obese Psych: nl mood/affect, no complaints Head: normocephalic, other (alopecia) Eyes: nl conjunctiva ENMT: nl external ears & nose Neck: supple Respiratory: diminished breath sounds Cardiovascular: regular rate and rhythm Gastrointestinal: soft Musculoskeletal: nl extremities to inspection Extremities: No edema Neurological: 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 II-XII intact, nl mental status, nl speech Results Result Diagram: 02/24/1703 02/24/17 09 Medications Medications Current Medications Atorvastatin Calcium (Lipitor) 20 mg QHS PO Last administered on 02/25/17 21: 03; Admin Dose 20 MG; Start 01/31/17 at 21:00 Escitalopram Oxalate (Lexapro) 10 mg DAILY PO Last administered on 02/26/17 08 :01; Admin Dose 10 MG; Start 02/01/17 at 09:00 Ondansetron HCl (Zofran Inj) 4 mg Q6 PRN IV NAUSEA Last administered on 05:32; Admin Dose 4 MG; Start 01/31/17 at 19:30 Morphine Sulfate (Ms Contin (Er)) 15 mg BID PO Last administered on 02/26/17 08:01; Admin Dose 15 MG; Start 01/31/17 at 23:00 Morphine Sulfate (morphine) 4 mg Q4H PRN IV SEVERE PAIN LEVEL 7-10 Last administered on 02/22/17 12:00; Admin Dose 4 MG; Start 01/31/17 at 23:00 Nitroglycerin (Nitroglycerin (Sl Tab) 0.4 Mg) 1 tab Q5M PRN SL ANGINA Last administered on 02/19/17 19:48; Admin Dose 1 TAB; Start 02/01/17 at 11:30 Pantoprazole (Protonix Tab) 40 mg DAILY@06 PO Last administered on 02/26/17 06 :16; Admin Dose 40 MG; Start 02/02/17 at 06:00 Voriconazole (Vfend) 200 mg BID PO Last administered on 02/26/17 08:01; Admin Dose 200 MG; Start 02/01/17 at 21:00 Senna (Senokot) 1 tab DAILY PRN PO CONSTIPATION Last administered on 02/03/17 20:36; Admin Dose 1 TAB; Start 02/02/17 at 16:00 Lactulose (Enulose) 20 gm DAILY PRN PO CONSTIPATION; Start 02/02/17 at 16:00 IV Flush (NS 10 ml) 10 ml PRN PRN IV IV PROTOCOL; Start 02/06/17 at 20:00 Oxymetazoline HCl (Afrin [place]) 2 spray BID NASAL Last administered on 08:02; Admin Dose 2 SPRAY; Start 02/07/17 at 15:00 Apixaban (Eliquis) 5 mg BID PO Last administered on 02/26/17 08:01; Admin Dose 5 MG; Start 02/21/17 at 09:00 Furosemide (Lasix) 40 mg DAILY PO Last administered on 02/26/17 08:01; Admin Dose 40 MG; Start 02/19/17 at 09:00 LUKE CAAL M.D. Feb 26, 2017 10:40
--- NOTE | 2017-02-26 11:31 | CONS ---
Date/Time of Note Date/Time of Note DATE: 02/26/17 TIME: 11:28 Assessment/Plan Assessment/Plan Additional Assessment/Plan Assessment recommendations; 1. Patient admitted with right sided pneumonia due to extensive metastatic non- small cell lung cancer likely with significant postobstructive pneumonia. Status post antibiotic treatment. 2. COPD. 3. Left upper extremity DVT. 4. Depression. Continue current treatment. Consider discharge. Prognosis remains poor. Consultation Date/Type/Reason Admit Date/Time Jan 31, 2017 at 18:59 Initial Consult Date 02/01/17 Type of Consultation: Pulmonary Referring Provider: MARYAM FARMER MD 24 HR Interval Summary Free Text/Dictation Patient's condition remains stable. Still complains of dyspnea on minimal exertion. Complains of occasional hemoptysis. General exam; elderly male, awake alert. Currently in no distress. Exam/Review of Systems Vital Signs Vitals Vital Signs Date Time Temp Pulse Resp B/P Pulse Ox O2 Delivery O2 Flow Rate FiO2 02/26/17 08:21 82 02/26/17 07:56 Nasal Cannula 02/26/17 07:36 20 96 4.0 02/26/17 07:32 98.0 105/67 02/26/17 03:01 50 Intake and Output 02/25/17 02/25/17 02/26/17 14:59 22:59 06:59 Intake Total 500 ml Balance 500 ml Exam HEENT exam; supple neck, no JVD. No lymphadenopathy. Midline trachea. No thyromegaly. Patient has fair dentition. Patient is alopecic. Chest exam; diminished breath sounds right lung. Left lung is clear to auscultation. S1-S2 audible, no murmurs. Regular rhythm. Abdomen exam; soft, protuberant. Nontender. No organomegaly. Bowel sounds audible. Extremity exam; no edema. SAFETY ATTENDANT exam; no focal deficit. Results Result Diagram: 02/24/1790202/24/17902 Medications Medications Current Medications Atorvastatin Calcium (Lipitor) 20 mg QHS PO Last administered on 02/25/17 21: 03; Admin Dose 20 MG; Start 01/31/17 at 21:00 Escitalopram Oxalate (Lexapro) 10 mg DAILY PO Last administered on 02/26/17 08 :01; Admin Dose 10 MG; Start 02/01/17 at 09:00 Ondansetron HCl (Zofran Inj) 4 mg Q6 PRN IV NAUSEA Last administered on 05:32; Admin Dose 4 MG; Start 01/31/17 at 19:30 Morphine Sulfate (Ms Contin (Er)) 15 mg BID PO Last administered on 02/26/17 08:01; Admin Dose 15 MG; Start 01/31/17 at 23:00 Morphine Sulfate (morphine) 4 mg Q4H PRN IV SEVERE PAIN LEVEL 7-10 Last administered on 02/22/17 12:00; Admin Dose 4 MG; Start 01/31/17 at 23:00 Nitroglycerin (Nitroglycerin (Sl Tab) 0.4 Mg) 1 tab Q5M PRN SL ANGINA Last administered on 02/19/17 19:48; Admin Dose 1 TAB; Start 02/01/17 at 11:30 Pantoprazole (Protonix Tab) 40 mg DAILY@06 PO Last administered on 02/26/17 06 :16; Admin Dose 40 MG; Start 02/02/17 at 06:00 Voriconazole (Vfend) 200 mg BID PO Last administered on 02/26/17 08:01; Admin Dose 200 MG; Start 02/01/17 at 21:00 Senna (Senokot) 1 tab DAILY PRN PO CONSTIPATION Last administered on 02/03/17 20:36; Admin Dose 1 TAB; Start 02/02/17 at 16:00 Lactulose (Enulose) 20 gm DAILY PRN PO CONSTIPATION; Start 02/02/17 at 16:00 IV Flush (NS 10 ml) 10 ml PRN PRN IV IV PROTOCOL; Start 02/06/17 at 20:00 Oxymetazoline HCl (Afrin [place]) 2 spray BID NASAL Last administered on 08:02; Admin Dose 2 SPRAY; Start 02/07/17 at 15:00 Apixaban (Eliquis) 5 mg BID PO Last administered on 02/26/17 08:01; Admin Dose 5 MG; Start 02/21/17 at 09:00 Furosemide (Lasix) 40 mg DAILY PO Last administered on 02/26/17 08:01; Admin Dose 40 MG; Start 02/19/17 at 09:00 ISMA CUTLER Feb 26, 2017 11:31
--- NOTE | 2017-02-26 12:29 | CONS ---
Date/Time of Note Date/Time of Note DATE: 02/26/17 TIME: 12:27 Assessment/Plan Assessment/Plan Chief Complaint/Hosp Course IMPRESSION: 1. Chest pain. Assess for acute coronary syndrome in a patient with lung cancer, undergoing chemotherapy, likely secondary to lung cancer.-negative trop x3 2. Abnormal electrocardiogram with nonspecific ST and T-wave abnormalities, assess for acute coronary syndrome. 3. Bradycardia, transient while on beta matthew. 4. Hypotension-improved 5. Shortness of [id number] PNA 6. Lung cancer with ongoing chemotherapy. 7. Leukocytosis. 8. Anemia. 9. Thrombocytopenia-stable 10. Possible ileus by most recent KUB 11.DVT-RUE on eliquis 12. Renal failure-ongoing slight worsening Recc: -Tel -Continue eliquis -Continue abx;'s and f/u cx data -Continue statin -Continue abx's and f/u cx data -pulmonary toliet -Follow BP closely -Continue lasix daily PO and follow volume status closely -Continue marinol for decreased appetite Problems: Consultation Date/Type/Reason Admit Date/Time Jan 31, 2017 at 18:59 Initial Consult Date 02/01/17 Type of Consultation: cardiology Reason for Consultation CHF Referring Provider: MARYAM FARMER MD Exam/Review of Systems Vital Signs Vitals Vital Signs Date Time Temp Pulse Resp B/P Pulse Ox O2 Delivery O2 Flow Rate FiO2 02/26/17 12:04 87 02/26/17 11:31 98.3 18 116/68 100 02/26/17 07:56 Nasal Cannula 02/26/17 07:36 4.0 02/26/17 03:01 50 Intake and Output 02/25/17 02/25/17 02/26/17 15:00 23:00 07:00 Intake Total 500 ml Balance 500 ml Exam Review of Systems: CONSTITUTIONAL: No fevers, chills. PULMONARY: ongoingh sob CARDIOVASCULAR: No chest pain/palpitations GASTROINTESTINAL: No nausea/vomiting. GENITOURINARY: No hematuria/dysuria. MUSCULOSKELETAL: No myagias/arthalgias. PSYCHIATRIC: The patient denies depression. NEUROLOGIC: lethargic Constitutional: alert Psych: no complaints Head: normocephalic ENMT: mucosa pink and moist Neck: jvd (9 cm water), supple Respiratory: diminished breath sounds (at bases/B) Cardiovascular: regular rate and rhythm Gastrointestinal: non-tender, soft Musculoskeletal: muscle weakness (generalized) Extremities: edema (trace/B) Neurological: lethargic Results Result Diagram: 02/24/1790202/24/17902 Medications Medications Current Medications Atorvastatin Calcium (Lipitor) 20 mg QHS PO Last administered on 02/25/17 21: 03; Admin Dose 20 MG; Start 01/31/17 at 21:00 Escitalopram Oxalate (Lexapro) 10 mg DAILY PO Last administered on 02/26/17 08 :01; Admin Dose 10 MG; Start 02/01/17 at 09:00 Ondansetron HCl (Zofran Inj) 4 mg Q6 PRN IV NAUSEA Last administered on 05:32; Admin Dose 4 MG; Start 01/31/17 at 19:30 Morphine Sulfate (Ms Contin (Er)) 15 mg BID PO Last administered on 02/26/17 08:01; Admin Dose 15 MG; Start 01/31/17 at 23:00 Morphine Sulfate (morphine) 4 mg Q4H PRN IV SEVERE PAIN LEVEL 7-10 Last administered on 02/22/17 12:00; Admin Dose 4 MG; Start 01/31/17 at 23:00 Nitroglycerin (Nitroglycerin (Sl Tab) 0.4 Mg) 1 tab Q5M PRN SL ANGINA Last administered on 02/19/17 19:48; Admin Dose 1 TAB; Start 02/01/17 at 11:30 Pantoprazole (Protonix Tab) 40 mg DAILY@06 PO Last administered on 02/26/17 06 :16; Admin Dose 40 MG; Start 02/02/17 at 06:00 Voriconazole (Vfend) 200 mg BID PO Last administered on 02/26/17 08:01; Admin Dose 200 MG; Start 02/01/17 at 21:00 Senna (Senokot) 1 tab DAILY PRN PO CONSTIPATION Last administered on 02/03/17 20:36; Admin Dose 1 TAB; Start 02/02/17 at 16:00 Lactulose (Enulose) 20 gm DAILY PRN PO CONSTIPATION; Start 02/02/17 at 16:00 IV Flush (NS 10 ml) 10 ml PRN PRN IV IV PROTOCOL; Start 9/12/17 at 20:00 Oxymetazoline HCl (Afrin [place]) 2 spray BID NASAL Last administered on 08:02; Admin Dose 2 SPRAY; Start 02/07/17 at 15:00 Apixaban (Eliquis) 5 mg BID PO Last administered on 02/26/17 08:01; Admin Dose 5 MG; Start 02/21/17 at 09:00 Furosemide (Lasix) 40 mg DAILY PO Last administered on 02/26/17 08:01; Admin Dose 40 MG; Start 02/19/17 at 09:00 MARIAA ÁLVAREZ Feb 26, 2017 12:28
--- NOTE | 2017-02-26 17:36 | CONS ---
Date/Time of Note Date/Time of Note DATE: 02/26/17 TIME: 17:33 Assessment/Plan Assessment/Plan Additional Assessment/Plan 1. Anasarca- Fluid overload multifactorial s/p Diuresis with IV lasix and IV albumin 2. acute kidney injury 3. post obstructive PNA 4. Advanced non small lung CA 5. acute respiratory failure 6. Right subclavian Deep venous thrombosis 7. acute on chronic diastolic heart failure 8. h/o fungal pneumonia 9. Hyperlipidemia 10. hypothyroidism 11. Metabolic alkalosis Plan: declined for [facility] admission s/p IV albumin with Lasix diureisis- last Cr 1.7, HCo3 39- diomax stopped, pt is on lasix 40mg po dialy , will follow up on labs in AM IV abx as per ID and PMD, renally dose all abx on Eliquis for DVT for right subclavian DVT. Monitor Electroltyes and replace as needed. Will follow up Consultation Date/Type/Reason Admit Date/Time Jan 31, 2017 at 18:59 Initial Consult Date 02/14/17 Type of Consultation: NEPHROLOGY Referring Provider: MARYAM FARMER MD 24 HR Interval Summary Free Text/Dictation Bp stable, afebrile, no labs today to review yet Exam/Review of Systems Vital Signs Vitals Vital Signs Date Time Temp Pulse Resp B/P Pulse Ox O2 Delivery O2 Flow Rate FiO2 02/26/17 16:09 85 02/26/17 16:02 99.1 18 125/75 98 02/26/17 14:13 Nasal Cannula 4.0 02/26/17 03:01 50 Intake and Output 02/25/17 02/25/17 02/26/17 15:00 23:00 07:00 Intake Total 500 ml Balance 500 ml Exam Constitutional: alert Respiratory: clear to auscultation, diminished breath sounds, normal air movement Cardiovascular: nl pulses, regular rate and rhythm Gastrointestinal: non-tender, soft Musculoskeletal: other (gernalised anasarca, 1-2+ edema ) Neurological: METAL BUILDING ASSEMBLER II-XII intact, nl mental status Results Result Diagram: 02/24/1703 02/24/17 0903 Medications Medications Current Medications Atorvastatin Calcium (Lipitor) 20 mg QHS PO Last administered on 02/25/17t 21: 03; Admin Dose 20 MG; Start 01/31/17 at 21:00 Escitalopram Oxalate (Lexapro) 10 mg DAILY PO Last administered on 02/26/17 08 :01; Admin Dose 10 MG; Start 02/01/17 at 09:00 Ondansetron HCl (Zofran Inj) 4 mg Q6 PRN IV NAUSEA Last administered on 05:32; Admin Dose 4 MG; Start 01/31/17 at 19:30 Morphine Sulfate (Ms Contin (Er)) 15 mg BID PO Last administered on 02/26/17 08:01; Admin Dose 15 MG; Start 01/31/17 at 23:00 Morphine Sulfate (morphine) 4 mg Q4H PRN IV SEVERE PAIN LEVEL 7-10 Last administered on 02/22/17 12:00; Admin Dose 4 MG; Start 01/31/17 at 23:00 Nitroglycerin (Nitroglycerin (Sl Tab) 0.4 Mg) 1 tab Q5M PRN SL ANGINA Last administered on 02/19/17 19:48; Admin Dose 1 TAB; Start 02/01/17 at 11:30 Pantoprazole (Protonix Tab) 40 mg DAILY@06 PO Last administered on 02/26/17 06 :16; Admin Dose 40 MG; Start 02/02/17 at 06:00 Voriconazole (Vfend) 200 mg BID PO Last administered on 02/26/17 08:01; Admin Dose 200 MG; Start 02/01/17 at 21:00 Senna (Senokot) 1 tab DAILY PRN PO CONSTIPATION Last administered on 02/03/17 20:36; Admin Dose 1 TAB; Start 02/02/17 at 16:00 Lactulose (Enulose) 20 gm DAILY PRN PO CONSTIPATION; Start 02/02/17 at 16:00 IV Flush (NS 10 ml) 10 ml PRN PRN IV IV PROTOCOL; Start 02/06/17 at 20:00 Oxymetazoline HCl (Afrin [place]) 2 spray BID NASAL Last administered on 08:02; Admin Dose 2 SPRAY; Start 02/07/17 at 15:00 Apixaban (Eliquis) 5 mg BID PO Last administered on 02/26/17 08:01; Admin Dose 5 MG; Start 02/21/17 at 09:00 Furosemide (Lasix) 40 mg DAILY PO Last administered on 02/26/17 08:01; Admin Dose 40 MG; Start 02/19/17 at 09:00 MELODY JENSEN MD Feb 26, 2017 17:35
--- NOTE | 2017-02-26 19:08 | PN ---
Date/Time of Note Date/Time of Note DATE: 02/26/17 TIME: 19:05 Assessment/Plan VTE Prophylaxis VTE Prophylaxis Intervention: SCD's Lines/Catheters IV [facility] ([facility] PICC Line Central line still needed: Yes Urinary Cath still in place: No Assessment/Plan Chief Complaint/Hosp Course Patient is afebrile, continues supplemental oxygen and BiPAP at night. Patient complains of shortness of breath on exertion. Assessment/Plan - LIZ, Dr. Irving is following in nephrology consultation. - Post-obstructive pneumonia Dr. Philly perry is following infection disease consultation. Status post treatment with antibiotics. - Advanced non-small cell lung CA, Dr. Scanlon is following in oncology consultation. - Acute respiratory failure secondary to above. is following in pulmonology consultation. - Nonocclusive deep venous thrombosis bilateral upper extremities. Continue Eliquis. - Acute on chronic diastolic congestive heart failure, continue gentle diuresis , continue to monitor electrolytes. - h/o fungal pneumonia, on maintenance voriconazole - CAD, continue aspirin. - Hyperlipidemia, continue statin - Hypothyroidism, continue levothyroxine. Further recommendations based on clinical course. Plan of care discussed with Dr. Lincoln. Problems: Exam/Review of Systems Vital Signs Vitals Vital Signs Date Time Temp Pulse Resp B/P Pulse Ox O2 Delivery O2 Flow Rate FiO2 02/26/17 16:09 85 02/26/17 16:02 99.1 18 125/75 98 02/26/17 14:13 Nasal Cannula 4.0 02/26/17 03:01 50 Intake and Output 02/25/17 02/25/17 02/26/17 15:00 23:00 07:00 Intake Total 500 ml Balance 500 ml Exam Constitutional: alert Neck: supple Respiratory: diminished breath sounds Cardiovascular: nl pulses Gastrointestinal: non-tender, soft Extremities: edema Results Result Diagram: 02/24/1790202/24/17902 Medications Medications Current Medications Atorvastatin Calcium (Lipitor) 20 mg QHS PO Last administered on 02/25/17 21: 03; Admin Dose 20 MG; Start 01/31/17 at 21:00 Escitalopram Oxalate (Lexapro) 10 mg DAILY PO Last administered on 02/26/17 08 :01; Admin Dose 10 MG; Start 02/01/17 at 09:00 Ondansetron HCl (Zofran Inj) 4 mg Q6 PRN IV NAUSEA Last administered on 05:32; Admin Dose 4 MG; Start 01/31/17 at 19:30 Morphine Sulfate (Ms Contin (Er)) 15 mg BID PO Last administered on 02/26/17 08:01; Admin Dose 15 MG; Start 01/31/17 at 23:00 Morphine Sulfate (morphine) 4 mg Q4H PRN IV SEVERE PAIN LEVEL 7-10 Last administered on 02/22/17 12:00; Admin Dose 4 MG; Start 01/31/17 at 23:00 Nitroglycerin (Nitroglycerin (Sl Tab) 0.4 Mg) 1 tab Q5M PRN SL ANGINA Last administered on 02/19/17 19:48; Admin Dose 1 TAB; Start 02/01/17 at 11:30 Pantoprazole (Protonix Tab) 40 mg DAILY@06 PO Last administered on 02/26/17 06 :16; Admin Dose 40 MG; Start 02/02/17 at 06:00 Voriconazole (Vfend) 200 mg BID PO Last administered on 02/26/17 08:01; Admin Dose 200 MG; Start 02/01/17 at 21:00 Senna (Senokot) 1 tab DAILY PRN PO CONSTIPATION Last administered on 02/03/17 20:36; Admin Dose 1 TAB; Start 02/02/17 at 16:00 Lactulose (Enulose) 20 gm DAILY PRN PO CONSTIPATION; Start 02/02/17 at 16:00 IV Flush (NS 10 ml) 10 ml PRN PRN IV IV PROTOCOL; Start 02/06/17 at 20:00 Oxymetazoline HCl (Afrin [place]) 2 spray BID NASAL Last administered on 08:02; Admin Dose 2 SPRAY; Start 02/07/17 at 15:00 Apixaban (Eliquis) 5 mg BID PO Last administered on 02/26/17 08:01; Admin Dose 5 MG; Start 02/21/17 at 09:00 Furosemide (Lasix) 40 mg DAILY PO Last administered on 02/26/17 08:01; Admin Dose 40 MG; Start 02/19/17 at 09:00 LUBA EARLY Feb 26, 2017 19:08
--- NOTE | 2017-02-26 19:13 | CONS ---
Date/Time of Note Date/Time of Note DATE: 02/26/17 TIME: 19:12 Assessment/Plan Assessment/Plan Chief Complaint/Hosp Course metastatic lung CANCER, NSCLC - ON CHEMO WITH RELATIVELY STABLE DIS D/W PULM AND RADIOLOGIST CHEMO ON HOLD DURING HOSPITALIZATION HX PANCYTOPENIA POST CHEMO MONITOR BLOOD COUNT CLOSELY LEUKOCYTOSIS PROB 2 TO POST OBSTRUCTIVE PNA HX LEUKOPENIA- POST CHEMO POST NEUPOGEN IN THE PAST RESPIRATORY INSUFFICIENCY PAIN PAIN CONTROL CHF, FLUID OVERLOAD GENTLE DIURESIS, CONSIDERING BORDERLINE BP POST Hypoxemic respiratory failure IN AUG 2016 , reaction to CARBO severe pneumonia/bronchitis due to enterobacter (09/22/2016-) HX DVT TREATED WITH LOVENOX PT SELF- DC 2 TO HEMOPTYSIS OUTPT History of coronary artery disease. Chronic obstructive pulmonary disease HX TOBACCO SMOKING Problems: Consultation Date/Type/Reason Admit Date/Time Jan 31, 2017 at 18:59 Initial Consult Date 01/31/17 Type of Consultation: [facility] Referring Provider: MARYAM FARMER MD 24 HR Interval Summary Free Text/Dictation ALL NOTED NO NEW EVENTS NAD Exam/Review of Systems Vital Signs Vitals Vital Signs Date Time Temp Pulse Resp B/P Pulse Ox O2 Delivery O2 Flow Rate FiO2 02/26/17 16:09 85 02/26/17 16:02 99.1 18 125/75 98 02/26/17 14:13 Nasal Cannula 4.0 02/26/17 03:01 50 Intake and Output 02/25/17 02/25/17 02/26/17 15:00 23:00 07:00 Intake Total 500 ml Balance 500 ml Exam GENERAL: The patient is alert, awake,no chest pain, + shortness of breath. NECK: JVP approximately 9 cm water. CHEST: Upper airway transmitted diffuse rhonchorous sounds. Decreased breath sounds at the bases bilaterally. HEART: Regular rate and rhythm. Normal S1, increased S2. 1/6 systolic murmur. Nondisplaced PMI. ABDOMEN: Positive bowel sounds. Soft. EXTREMITIES: 2 + edema, up and lower extremities bilaterally. 1+ pulses bilateral posterior tibial. Results Result Diagram: 02/24/1790202/24/17902 Medications Medications Current Medications Atorvastatin Calcium (Lipitor) 20 mg QHS PO Last administered on 02/25/17t 21: 03; Admin Dose 20 MG; Start 01/31/17 at 21:00 Escitalopram Oxalate (Lexapro) 10 mg DAILY PO Last administered on 02/26/17 08 :01; Admin Dose 10 MG; Start 02/01/17 at 09:00 Ondansetron HCl (Zofran Inj) 4 mg Q6 PRN IV NAUSEA Last administered on 05:32; Admin Dose 4 MG; Start 01/31/17 at 19:30 Morphine Sulfate (Ms Contin (Er)) 15 mg BID PO Last administered on 02/26/17 08:01; Admin Dose 15 MG; Start 01/31/17 at 23:00 Morphine Sulfate (morphine) 4 mg Q4H PRN IV SEVERE PAIN LEVEL 7-10 Last administered on 02/22/17 12:00; Admin Dose 4 MG; Start 01/31/17 at 23:00 Nitroglycerin (Nitroglycerin (Sl Tab) 0.4 Mg) 1 tab Q5M PRN SL ANGINA Last administered on 02/19/17 19:48; Admin Dose 1 TAB; Start 02/01/17 at 11:30 Pantoprazole (Protonix Tab) 40 mg DAILY@06 PO Last administered on 02/26/17 06 :16; Admin Dose 40 MG; Start 02/02/17 at 06:00 Voriconazole (Vfend) 200 mg BID PO Last administered on 02/26/17 08:01; Admin Dose 200 MG; Start 02/01/17 at 21:00 Senna (Senokot) 1 tab DAILY PRN PO CONSTIPATION Last administered on 02/03/17 20:36; Admin Dose 1 TAB; Start 02/02/17 at 16:00 Lactulose (Enulose) 20 gm DAILY PRN PO CONSTIPATION; Start 02/02/17 at 16:00 IV Flush (NS 10 ml) 10 ml PRN PRN IV IV PROTOCOL; Start 02/06/17 at 20:00 Oxymetazoline HCl (Afrin [place]) 2 spray BID NASAL Last administered on 08:02; Admin Dose 2 SPRAY; Start 02/07/17 at 15:00 Apixaban (Eliquis) 5 mg BID PO Last administered on 02/26/17 08:01; Admin Dose 5 MG; Start 02/21/17 at 09:00 Furosemide (Lasix) 40 mg DAILY PO Last administered on 02/26/17 08:01; Admin Dose 40 MG; Start 02/19/17 at 09:00 DAHIANA BABCOCK MD Feb 26, 2017 19:13
[2017-02-26] MEDS: ATORVASTATIN 20 MG TAB PO SCH (21:02)
[2017-02-27] VITALS (15 sets, daily range): BP systolic 119–147; BP diastolic 58–96; PULSE 71–98; RESP 17–21
--- NOTE | 2017-02-27 02:14 | CONS ---
Date/Time of Note Date/Time of Note DATE: 02/27/17 TIME: 02:10 Assessment/Plan Assessment/Plan Chief Complaint/Hosp Course - Problems: Additional Assessment/Plan - hypokalemia-no labs today 1. Anasarca- Fluid overload multifactorial s/p Diuresis with IV lasix and IV albumin 2. acute kidney injury 3. post obstructive PNA 4. Advanced non small lung CA 5. acute respiratory failure 6. Right subclavian Deep venous thrombosis 7. acute on chronic diastolic heart failure 8. h/o fungal pneumonia 9. Hyperlipidemia 10. hypothyroidism 11. Metabolic alkalosis Plan: -continue current care -s/p IV albumin with Lasix diureisis- Cr 1.7 today -HCo3 - 39, imrpoved with Diomax 500mg iV BID - continue for today, tomorrow we will decrease dose as needed. -IV abx as per ID and PMD, renally dose all abx -Will follow up on Eliquis for DVT for right subclavian DVT. Monitor Electrolytes and replace as needed. Plan if care dw DR Марина Irving Consultation Date/Type/Reason Admit Date/Time Jan 31, 2017 at 18:59 Initial Consult Date 02/01/17 Type of Consultation: [facility] Referring Provider: MARYAM FARMER MD 24 HR Interval Summary Free Text/Dictation Late entry- 02/25/2017 at 1315 Cr 1.7, HCo3 improved to 40 with IV Diamox, sha staff Constitutional: requiring O2 Detailed Summary Respiratory: shortness of breath Cardiovascular: no complaints Gastrointestinal: no complaints Genitourinary: no complaints Musculoskeletal: no complaints Neurologic: no complaints Exam/Review of Systems Vital Signs Vitals Vital Signs Date Time Temp Pulse Resp B/P Pulse Ox O2 Delivery O2 Flow Rate FiO2 02/27/17 01:00 71 99 50 02/26/17 23:46 98.0 20 115/60 02/26/17 21:02 Nasal Cannula 4.0 Intake and Output 02/26/17 02/26/17 02/27/17 15:00 23:00 07:00 Intake Total 650 ml 600 ml Balance 650 ml 600 ml Exam Constitutional: alert, obese Respiratory: diminished breath sounds Cardiovascular: nl pulses Gastrointestinal: non-tender, soft Extremities: edema Neurological: nl mental status, nl speech Results Result Diagram: 02/24/1790202/24/17 0903 Medications Medications Current Medications Atorvastatin Calcium (Lipitor) 20 mg QHS PO Last administered on 02/26/17 21: 02; Admin Dose 20 MG; Start 01/31/17 at 21:00 Escitalopram Oxalate (Lexapro) 10 mg DAILY PO Last administered on 02/26/17 08 :01; Admin Dose 10 MG; Start 02/01/17 at 09:00 Ondansetron HCl (Zofran Inj) 4 mg Q6 PRN IV NAUSEA Last administered on 05:32; Admin Dose 4 MG; Start 01/31/17 at 19:30 Morphine Sulfate (Ms Contin (Er)) 15 mg BID PO Last administered on 02/26/17 21:02; Admin Dose 15 MG; Start 01/31/17 at 23:00 Morphine Sulfate (morphine) 4 mg Q4H PRN IV SEVERE PAIN LEVEL 7-10 Last administered on 02/22/17 12:00; Admin Dose 4 MG; Start 01/31/17 at 23:00 Nitroglycerin (Nitroglycerin (Sl Tab) 0.4 Mg) 1 tab Q5M PRN SL ANGINA Last administered on 02/19/17 19:48; Admin Dose 1 TAB; Start 02/01/17 at 11:30 Pantoprazole (Protonix Tab) 40 mg DAILY@06 PO Last administered on 02/26/17 06 :16; Admin Dose 40 MG; Start 02/02/17 at 06:00 Voriconazole (Vfend) 200 mg BID PO Last administered on 02/26/17 21:02; Admin Dose 200 MG; Start 02/01/17 at 21:00 Senna (Senokot) 1 tab DAILY PRN PO CONSTIPATION Last administered on 02/03/17 20:36; Admin Dose 1 TAB; Start 02/02/17 at 16:00 Lactulose (Enulose) 20 gm DAILY PRN PO CONSTIPATION; Start 02/02/17 at 16:00 IV Flush (NS 10 ml) 10 ml PRN PRN IV IV PROTOCOL; Start 02/06/17 at 20:00 Oxymetazoline HCl (Afrin [place]) 2 spray BID NASAL Last administered on 21:02; Admin Dose 2 SPRAY; Start 02/07/17 at 15:00 Apixaban (Eliquis) 5 mg BID PO Last administered on 02/26/17 21:02; Admin Dose 5 MG; Start 02/21/17 at 09:00 Furosemide (Lasix) 40 mg DAILY PO Last administered on 02/26/17 08:01; Admin Dose 40 MG; Start 02/19/17 at 09:00 TRAMAINE ELLSWORTH Feb 27, 2017 02:14
[2017-02-27] MEDS: LEVALBUTEROL (NEB) 0.63 MG/3 ML AMP HHN SCH ×4 (02:33→19:28)
[2017-02-27] MEDS: PANTOPRAZOLE (EC) 40 MG TAB PO SCH (06:05)
[2017-02-27] MEDS: LEVOTHYROXINE 75 MCG TAB PO SCH (06:05)
[2017-02-27] MEDS: morphine (ER) 15 MG TAB PO SCH ×2 (09:01→20:21)
[2017-02-27] MEDS: APIXABAN 5 MG TABLET PO SCH ×2 (09:01→20:20)
[2017-02-27] MEDS: VORICONAZOLE 200 MG TAB PO SCH ×2 (09:01→20:20)
[2017-02-27] MEDS: DRONABINOL 2.5 MG CAP PO SCH ×3 (09:01→17:12)
[2017-02-27] MEDS: ESCITALOPRAM 10 MG TAB PO SCH (09:01)
[2017-02-27] MEDS: FUROSEMIDE 40 MG TAB PO SCH (09:01)
[2017-02-27] MEDS: OXYMETAZOLINE 0.05% 15 ML NAS SPRAY NASAL SCH ×2 (09:02→20:22)
[2017-02-27 09:23] LABS: BASOPHILS % 0.7 % (0.0-2.0); EOSINOPHILS # 0.2 10^3/ul (0.0-0.5); EOSINOPHILS % 3.4 % (0.0-7.0); HEMATOCRIT 30.1 % (42.0-52.0); HEMOGLOBIN 8.9 g/dl (14.0-18.0); LYMPHOCYTES # 0.6 10^3/ul (0.8-2.9); LYMPHOCYTES % 13.5 % (15.0-51.0); MEAN CORPUSCULAR HEMOGLOBIN 31.2 pg (29.0-33.0); MEAN CORPUSCULAR HGB CONC 29.6 g/dl (32.0-37.0); MEAN CORPUSCULAR VOLUME 105.6 fl (82.0-101.0); MEAN PLATELET VOLUME 11.4 fl (7.4-10.4); MONOCYTE # 0.5 10^3/ul (0.3-0.9); MONOCYTES % 11.1 % (0.0-11.0); NEUTROPHIL # 3.2 10^3/ul (1.6-7.5); NEUTROPHILS % 71.1 % (39.0-77.0); PLATELET COUNT 120 10^3/UL (140-415); POSITIVE DIFF @See below; RED BLOOD COUNT 2.85 10^6/ul (4.70-6.10); RED CELL DISTRIBUTION WIDTH 14.4 % (11.5-14.5); WHITE BLOOD COUNT 4.4 10^3/ul (4.8-10.8)
[2017-02-27 09:43] LABS: INR 1.57; PROTIME 18.9 Sec (12.2-14.2); PT RATIO 1.5
[2017-02-27 09:54] LABS: ALBUMIN/GLOBULIN RATIO 1.03; BILIRUBIN,INDIRECT 0.2 mg/dl (0-1.1); BILIRUBIN,TOTAL 0.2 mg/dl (0.2-1.3); CALCIUM 8.7 mg/dl (8.4-10.2); CREATININE 1.63 mg/dl (0.61-1.24); POTASSIUM 3.1 mmol/L (3.5-5.1); TOTAL PROTEIN 5.9 g/dl (6.1-8.1)
--- NOTE | 2017-02-27 10:17 | CONS ---
Date/Time of Note Date/Time of Note DATE: 02/27/17 TIME: 10:11 Assessment/Plan Assessment/Plan Chief Complaint/Hosp Course - h/o sepsis due to recurrent pneumonia, and to a lessor degree due to paronychia. 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 Aspergillus antibody was >1:64 but aspergillus antigen in serum by EIA was negative during his last admission. - macrocytic anemia - thrombocytopenia - h/o DVT of b/l UEs - b/l knee pain due to DJD - h/o post-obstructive pneumonia - h/o HTN, CAD, hyperlipidemia - h/o paroxysmal A fib - h/o hypothyroidism with elevated TSH level - HIV negative in 2013 - nonocclusive thrombus around the PICC catheter within the left brachial vein, axillary vein and subclavian vein per doppler 02/13/2017 recommendations: - I personally collected wound cultures from L 3rd and R 2nd fingernail - ordered XR of b/l hands because Pt c/o pain from multiple finger tips - re-start IV vancomycin for paronychia - consider hand or plastic surgery consult re. near detachment of multiple nail - continue voriconazole for chronic suppression of aspergillus given his immunocompromised state; monitor LFTs weekly, last checked on 02/24/2017 management d/w Pt, his RN Problems: Consultation Date/Type/Reason Admit Date/Time Jan 31, 2017 at 18:59 Initial Consult Date 02/14/17 Type of Consultation: ID Referring Provider: MARYAM FARMER MD 24 HR Interval Summary Constitutional: other ("not good") Detailed Summary Eyes: no complaints ENT: no complaints Respiratory: cough, shortness of breath Cardiovascular: no complaints Gastrointestinal: no complaints Genitourinary: no complaints Musculoskeletal: bone/joint pain (pain from multiple fingers) Skin: erythema (multiple fingers), other (purulence from L3rd and R 2nd fingernail) Neurologic: no complaints Exam/Review of Systems Vital Signs Vitals Vital Signs Date Time Temp Pulse Resp B/P Pulse Ox O2 Delivery O2 Flow Rate FiO2 02/27/17 08:04 72 20 97 Nasal Cannula 4.0 02/27/17 07:38 98.4 145/83 02/27/17 02:34 50 Intake and Output 02/26/17 02/26/17 02/27/17 15:00 23:00 07:00 Intake Total 650 ml 600 ml Balance 650 ml 600 ml Exam Constitutional: alert, frail, obese, oriented, well developed Psych: nl mood/affect, no complaints Head: other (alopecia) Eyes: nl conjunctiva, nl lids ENMT: nl external ears & nose, nl nasal mucosa & septum Neck: supple Respiratory: crackles/rales, diminished breath sounds Cardiovascular: nl pulses, regular rate and rhythm Gastrointestinal: non-tender, soft Musculoskeletal: nl extremities to inspection Extremities: No edema Neurological: MEDICINE TECHNOLOGIST II-XII intact, nl mental status, nl speech, nl strength Skin: other (nail changes consistent with chemo. purulence from L 3rd and R 2nd fingernail, mild erythema) Results Result Diagram: 02/27/17 0818 02/27/17 0818 Results 24 hrs Laboratory Tests Test 02/27/17 08:18 White Blood Count 4.4 #L Red Blood Count 2.85 L Hemoglobin 8.9 L Hematocrit 30.1 L Mean Corpuscular Volume 105.6 H Mean Corpuscular Hemoglobin 31.2 Mean Corpuscular Hemoglobin Concent 29.6 L Red Cell Distribution Width 14.4 Platelet Count 120 L Mean Platelet Volume 11.4 H Neutrophils % 71.1 Lymphocytes % 13.5 L Monocytes % 11.1 H Eosinophils % 3.4 Basophils % 0.7 Nucleated Red Blood Cells % 0.0 Neutrophils # 3.2 Lymphocytes # 0.6 L Monocytes # 0.5 Eosinophils # 0.2 Basophils # 0.0 Nucleated Red Blood Cells # 0.0 Prothrombin Time 18.9 #H Prothrombin Time Ratio 1.5 INR International Normalized Ratio 1.57 Activated Partial Thromboplast Time 37.0 H Sodium Level 139 Potassium Level 3.1 L Chloride Level 96 L Carbon Dioxide Level 36 H Anion Gap 10 Blood Urea Nitrogen 17 Creatinine 1.63 H Glucose Level 82 Calcium Level 8.7 Total Bilirubin 0.2 Direct Bilirubin 0.00 Indirect Bilirubin 0.2 Aspartate Amino Transf (AST/SGOT) 39 Alanine Aminotransferase (ALT/SGPT) 33 Alkaline Phosphatase 89 Total Protein 5.9 L Albumin 3.0 L Globulin 2.90 Albumin/Globulin Ratio 1.03 Medications Medications Current Medications Atorvastatin Calcium (Lipitor) 20 mg QHS PO Last administered on 02/26/17 21: 02; Admin Dose 20 MG; Start 01/31/17 at 21:00 Escitalopram Oxalate (Lexapro) 10 mg DAILY PO Last administered on 02/27/17 09 :01; Admin Dose 10 MG; Start 02/01/17 at 09:00 Ondansetron HCl (Zofran Inj) 4 mg Q6 PRN IV NAUSEA Last administered on 05:32; Admin Dose 4 MG; Start 01/31/17 at 19:30 Morphine Sulfate (Ms Contin (Er)) 15 mg BID PO Last administered on 02/27/17 09:01; Admin Dose 15 MG; Start 01/31/17 at 23:00 Morphine Sulfate (morphine) 4 mg Q4H PRN IV SEVERE PAIN LEVEL 7-10 Last administered on 02/22/17 12:00; Admin Dose 4 MG; Start 01/31/17 at 23:00 Nitroglycerin (Nitroglycerin (Sl Tab) 0.4 Mg) 1 tab Q5M PRN SL ANGINA Last administered on 02/19/17 19:48; Admin Dose 1 TAB; Start 02/01/17 at 11:30 Pantoprazole (Protonix Tab) 40 mg DAILY@06 PO Last administered on 02/27/17 06 :05; Admin Dose 40 MG; Start 02/02/17 at 06:00 Voriconazole (Vfend) 200 mg BID PO Last administered on 02/27/17 09:01; Admin Dose 200 MG; Start 02/01/17 at 21:00 Senna (Senokot) 1 tab DAILY PRN PO CONSTIPATION Last administered on 02/03/17 20:36; Admin Dose 1 TAB; Start 02/02/17 at 16:00 Lactulose (Enulose) 20 gm DAILY PRN PO CONSTIPATION; Start 02/02/17 at 16:00 IV Flush (NS 10 ml) 10 ml PRN PRN IV IV PROTOCOL; Start 02/06/17 at 20:00 Oxymetazoline HCl (Afrin [place]) 2 spray BID NASAL Last administered on 09:02; Admin Dose 2 SPRAY; Start 02/07/17 at 15:00 Apixaban (Eliquis) 5 mg BID PO Last administered on 02/27/17 09:01; Admin Dose 5 MG; Start 02/21/17 at 09:00 Furosemide (Lasix) 40 mg DAILY PO Last administered on 02/27/17 09:01; Admin Dose 40 MG; Start 02/19/17 at 09:00 LUKE CAAL M.D. Feb 27, 2017 10:17
[2017-02-27] MEDS ORDERED: VANCOMYCIN IV PER PHARMACY XX SCH (10:30)
[2017-02-27] MEDS ORDERED: VANCOMYCIN 2 GM in SOD CHLORIDE 0.9% 500 ML IVPB ONE (12:00)
--- NOTE | 2017-02-27 12:10 | CONS ---
Date/Time of Note Date/Time of Note DATE: 02/27/17 TIME: 12:07 Assessment/Plan Assessment/Plan Additional Assessment/Plan Assessment and recommendations; 1. Patient admitted with extensive pneumonia involving right lung with a significant postobstructive element due to widely metastatic non-small cell lung cancer. 2. COPD. 3. Hypoxemic and hypercapnic respiratory failure, requiring of nocturnal BiPAP. 4. Depression. 5. Left upper extremity DVT. Patient can be discharged home. He will require nocturnal BiPAP at home. Repeat an ABG. If the ABG shows hypercapnia, patient will not require a sleep study to qualify for noninvasive positive pressure ventilation device. Overall prognosis remains poor. Consider stopping voriconazole. Consultation Date/Type/Reason Admit Date/Time Jan 31, 2017 at 18:59 Initial Consult Date 02/01/17 Type of Consultation: Pulmonary/critical care Referring Provider: MARYAM FARMER MD 24 HR Interval Summary Free Text/Dictation Patient's condition remains stable. Still complains of dyspnea on minimal exertion. Complains of occasional hemoptysis. General exam; elderly male, appears quite overweight, awake and alert. Currently no distress. Exam/Review of Systems Vital Signs Vitals Vital Signs Date Time Temp Pulse Resp B/P Pulse Ox O2 Delivery O2 Flow Rate FiO2 02/27/17 11:52 98.5 83 19 122/96 98 02/27/17 08:04 Nasal Cannula 4.0 02/27/17 02:34 50 Intake and Output 02/26/17 02/26/17 02/27/17 15:00 23:00 07:00 Intake Total 650 ml 600 ml Balance 650 ml 600 ml Exam HEENT exam; supple neck, no JVD. No lymphadenopathy. Midline trachea. No thyromegaly. Patient has fair dentition. Pupils are small bilaterally. No neck masses. Chest exam; diminished breath sounds right lung with scattered crackles. Left lung is clear to auscultation. S1-S2 audible, no murmurs. Regular rhythm. Abdomen exam; soft, protuberant. Nontender. No organomegaly. Bowel sounds audible. Extremity exam; no edema. No clubbing. CLINICAL ASSOCIATE exam; no focal deficit other than hoarseness. Results Result Diagram: 02/27/1718 02/27/1718 Results 24 hrs Laboratory Tests Test 02/27/17 08:18 White Blood Count 4.4 #L Red Blood Count 2.85 L Hemoglobin 8.9 L Hematocrit 30.1 L Mean Corpuscular Volume 105.6 H Mean Corpuscular Hemoglobin 31.2 Mean Corpuscular Hemoglobin Concent 29.6 L Red Cell Distribution Width 14.4 Platelet Count 120 L Mean Platelet Volume 11.4 H Neutrophils % 71.1 Lymphocytes % 13.5 L Monocytes % 11.1 H Eosinophils % 3.4 Basophils % 0.7 Nucleated Red Blood Cells % 0.0 Neutrophils # 3.2 Lymphocytes # 0.6 L Monocytes # 0.5 Eosinophils # 0.2 Basophils # 0.0 Nucleated Red Blood Cells # 0.0 Prothrombin Time 18.9 #H Prothrombin Time Ratio 1.5 INR International Normalized Ratio 1.57 Activated Partial Thromboplast Time 37.0 H Sodium Level 139 Potassium Level 3.1 L Chloride Level 96 L Carbon Dioxide Level 36 H Anion Gap 10 Blood Urea Nitrogen 17 Creatinine 1.63 H Glucose Level 82 Calcium Level 8.7 Total Bilirubin 0.2 Direct Bilirubin 0.00 Indirect Bilirubin 0.2 Aspartate Amino Transf (AST/SGOT) 39 Alanine Aminotransferase (ALT/SGPT) 33 Alkaline Phosphatase 89 Total Protein 5.9 L Albumin 3.0 L Globulin 2.90 Albumin/Globulin Ratio 1.03 Medications Medications Current Medications Atorvastatin Calcium (Lipitor) 20 mg QHS PO Last administered on 02/26/17 21: 02; Admin Dose 20 MG; Start 01/31/17 at 21:00 Escitalopram Oxalate (Lexapro) 10 mg DAILY PO Last administered on 02/27/17 09 :01; Admin Dose 10 MG; Start 02/01/17 at 09:00 Ondansetron HCl (Zofran Inj) 4 mg Q6 PRN IV NAUSEA Last administered on 05:32; Admin Dose 4 MG; Start 01/31/17 at 19:30 Morphine Sulfate (Ms Contin (Er)) 15 mg BID PO Last administered on 02/27/17 09:01; Admin Dose 15 MG; Start 01/31/17 at 23:00 Morphine Sulfate (morphine) 4 mg Q4H PRN IV SEVERE PAIN LEVEL 7-10 Last administered on 02/22/17 12:00; Admin Dose 4 MG; Start 01/31/17 at 23:00 Nitroglycerin (Nitroglycerin (Sl Tab) 0.4 Mg) 1 tab Q5M PRN SL ANGINA Last administered on 02/19/17 19:48; Admin Dose 1 TAB; Start 02/01/17 at 11:30 Pantoprazole (Protonix Tab) 40 mg DAILY@06 PO Last administered on 02/27/17 06 :05; Admin Dose 40 MG; Start 02/02/17 at 06:00 Voriconazole (Vfend) 200 mg BID PO Last administered on 02/27/17 09:01; Admin Dose 200 MG; Start 02/01/17 at 21:00 Senna (Senokot) 1 tab DAILY PRN PO CONSTIPATION Last administered on 02/03/17 20:36; Admin Dose 1 TAB; Start 02/02/17 at 16:00 Lactulose (Enulose) 20 gm DAILY PRN PO CONSTIPATION; Start 02/02/17 at 16:00 IV Flush (NS 10 ml) 10 ml PRN PRN IV IV PROTOCOL; Start 02/06/17 at 20:00 Oxymetazoline HCl (Afrin [place]) 2 spray BID NASAL Last administered on 09:02; Admin Dose 2 SPRAY; Start 02/07/17 at 15:00 Apixaban (Eliquis) 5 mg BID PO Last administered on 02/27/17 09:01; Admin Dose 5 MG; Start 02/21/17 at 09:00 Furosemide 40 mg 40 mg DAILY PO Last administered on 02/27/17 09:01; Admin Dose 40 MG; Start 02/19/17 at 09:00 Vancomycin HCl 2 gm/Sodium Chloride 500 ml @ 125 mls/hr ONCE ONCE IVPB ; Start 02/27/17 at 12:00; Stop 02/27/17 at 15:59 Vancomycin HCl (Vancocin) 250 ml @ 125 mls/hr Q48H IVPB ; Start 03/01/17 at 12: 00 ISMA CUTLER Feb 27, 2017 12:10
[2017-02-27 13:25] LABS: AADO2 Arterial 68.8 mmHg (7.0-24.0); Allen Test ACCEPTAB; Arterial Base Excess 8.4 mmol/L (-3.0-3); Arterial COHb 0.3 % (0.0-3.0); Arterial Fraction of Oxyhgb 95.6 % (93.0-99.0); Arterial HCO3 35.9 mmol/L (22.0-26.0); Arterial MetHb 0.3 % (0.0-1.5); Arterial Total Hemglobin 11.3 g/dl (12.0-18.0); MODE NASAL CANNULA
--- NOTE | 2017-02-27 14:13 | RADRPT ---
PROCEDURE: Bilateral hand series CLINICAL INDICATION: Bilateral hand pain TECHNIQUE: 6 views of the bilateral hands were obtained. COMPARISON: None FINDINGS: Amputation of the right third digit is seen at the level of the distal phalanx. No acute fracture or dislocation is seen. The osseous structures are well mineralized. The joint spaces are preserved. S oft tissue structures are intact. IMPRESSION: Amputation of the right third digit as detailed above. RPTAT: HPNM Physician Maty Date Time Electronically viewed and signed by Physician Maty on 02/27/2017 14:13 /
--- NOTE | 2017-02-27 15:13 | CONS ---
Date/Time of Note Date/Time of Note DATE: 02/27/17 TIME: 15:11 Assessment/Plan Assessment/Plan Additional Assessment/Plan 1. Chest pain. Assess for acute coronary syndrome in a patient with lung cancer, undergoing chemotherapy, likely secondary to lung cancer.-negative trop x3 - NO INTERVENTION PLANNED 2. Abnormal electrocardiogram with nonspecific ST and T-wave abnormalities, assess for acute coronary syndrome. 3. Bradycardia, transient while on beta matthew. - stable now 4. Hypotension-improved 5. Shortness of [id number] PNA - betteer now, awaiting placement 6. Lung cancer with ongoing chemotherapy. 7. Leukocytosis. 8. Anemia. 9. Thrombocytopenia-stable 10. Possible ileus by most recent KUB 11.DVT-[id number] on eliquis 12. Renal failure-ongoing slight worsening Consultation Date/Type/Reason Admit Date/Time Jan 31, 2017 at 18:59 Initial Consult Date 02/01/17 Type of Consultation: Pulmonary/critical care Referring Provider: MARYAM FARMER MD 24 HR Interval Summary Free Text/Dictation NO acute events - No CP - awaiting placement ROS: No fever, no chills, no nausea, no vomiting, no diarrhea/constipation No recent weight changes No chest pain, no PND, no orthopnea No dizziness, blurred vision No thirst, no heat or cold intolerance Exam/Review of Systems Vital Signs Vitals Vital Signs Date Time Temp Pulse Resp B/P Pulse Ox O2 Delivery O2 Flow Rate FiO2 02/27/17 14:00 68 20 95 Nasal Cannula 4.0 02/27/17 11:52 98.5 122/96 02/27/17 02:34 50 Intake and Output 02/26/17 02/26/17 02/27/17 15:00 23:00 07:00 Intake Total 650 ml 600 ml Balance 650 ml 600 ml Exam General: WN/WD/NAD, AOx comfortable HEENT: Unicetric/atraumatic/EOMI (follow commands) NECK: JVD elevated, no thyromegaly Lymph: no lymphadenopathy HEART: regular with no S3, II/ systolic murmur at apex LUNGS: Coarse sounds ABD: soft, NT, ND, +BS : Intact Neuro: non focal SKIN: chronic changes EXT: trace edema Results Result Diagram: 02/27/1781702/27/17817 Results 24 hrs Laboratory Tests Test 02/27/17 08:18 02/27/17 12:06 White Blood Count 4.4 #L Red Blood Count 2.85 L Hemoglobin 8.9 L Hematocrit 30.1 L Mean Corpuscular Volume 105.6 H Mean Corpuscular Hemoglobin 31.2 Mean Corpuscular Hemoglobin Concent 29.6 L Red Cell Distribution Width 14.4 Platelet Count 120 L Mean Platelet Volume 11.4 H Neutrophils % 71.1 Lymphocytes % 13.5 L Monocytes % 11.1 H Eosinophils % 3.4 Basophils % 0.7 Nucleated Red Blood Cells % 0.0 Neutrophils # 3.2 Lymphocytes # 0.6 L Monocytes # 0.5 Eosinophils # 0.2 Basophils # 0.0 Nucleated Red Blood Cells # 0.0 Prothrombin Time 18.9 #H Prothrombin Time Ratio 1.5 INR International Normalized Ratio 1.57 Activated Partial Thromboplast Time 37.0 H Sodium Level 139 Potassium Level 3.1 L Chloride Level 96 L Carbon Dioxide Level 36 H Anion Gap 10 Blood Urea Nitrogen 17 Creatinine 1.63 H Glucose Level 82 Calcium Level 8.7 Total Bilirubin 0.2 Direct Bilirubin 0.00 Indirect Bilirubin 0.2 Aspartate Amino Transf (AST/SGOT) 39 Alanine Aminotransferase (ALT/SGPT) 33 Alkaline Phosphatase 89 Total Protein 5.9 L Albumin 3.0 L Globulin 2.90 Albumin/Globulin Ratio 1.03 Blood Gas Specimen Source Blood arterial Arterial Blood Date Drawn 02/27/2017 12:30:18 PM Arterial Blood pH (Temp corrected) 7.353 Arterial Blood pCO2 (Temp correct) 66.1 H Arterial Blood pO2 (Temp corrected) 89.3 Arterial Blood HCO3 35.9 H Arterial Blood Base Excess 8.4 H Arterial Blood Oxygen Saturation 96.2 Jose Alfredo Test ACCEPTAB Arterial Blood Gas Puncture Site Right Radial Arterial Blood Carboxyhemoglobin 0.3 Arterial Blood Methemoglobin 0.3 Blood Gas A-a O2 Differential 68.8 H Oxyhemoglobin Percent 95.6 Total Hemoglobin 11.3 L Blood Gas Temperature 37.0 Blood Gas Modality NASAL CANNULA FiO2 33.0 Blood Gas Notified Whom JLD Blood Gas Notified Time 02/27/2017 12:48:48 PM Medications Medications Current Medications Atorvastatin Calcium (Lipitor) 20 mg QHS PO Last administered on 02/26/17t 21: 02; Admin Dose 20 MG; Start 01/31/17 at 21:00 Escitalopram Oxalate (Lexapro) 10 mg DAILY PO Last administered on 02/27/17 09 :01; Admin Dose 10 MG; Start 02/01/17 at 09:00 Ondansetron HCl (Zofran Inj) 4 mg Q6 PRN IV NAUSEA Last administered on 05:32; Admin Dose 4 MG; Start 01/31/17 at 19:30 Morphine Sulfate (Ms Contin (Er)) 15 mg BID PO Last administered on 02/27/17 09:01; Admin Dose 15 MG; Start 01/31/17 at 23:00 Morphine Sulfate (morphine) 4 mg Q4H PRN IV SEVERE PAIN LEVEL 7-10 Last administered on 02/22/17 12:00; Admin Dose 4 MG; Start 01/31/17 at 23:00 Nitroglycerin (Nitroglycerin (Sl Tab) 0.4 Mg) 1 tab Q5M PRN SL ANGINA Last administered on 02/19/17 19:48; Admin Dose 1 TAB; Start 02/01/17 at 11:30 Pantoprazole (Protonix Tab) 40 mg DAILY@06 PO Last administered on 02/27/17 06 :05; Admin Dose 40 MG; Start 02/02/17 at 06:00 Voriconazole (Vfend) 200 mg BID PO Last administered on 02/27/17 09:01; Admin Dose 200 MG; Start 02/01/17 at 21:00 Senna (Senokot) 1 tab DAILY PRN PO CONSTIPATION Last administered on 02/03/17 20:36; Admin Dose 1 TAB; Start 02/02/17 at 16:00 Lactulose (Enulose) 20 gm DAILY PRN PO CONSTIPATION; Start 02/02/17 at 16:00 IV Flush (NS 10 ml) 10 ml PRN PRN IV IV PROTOCOL; Start 02/06/17 at 20:00 Oxymetazoline HCl (Afrin [place]) 2 spray BID NASAL Last administered on 09:02; Admin Dose 2 SPRAY; Start 02/07/17 at 15:00 Apixaban (Eliquis) 5 mg BID PO Last administered on 02/27/17 09:01; Admin Dose 5 MG; Start 02/21/17 at 09:00 Furosemide 40 mg 40 mg DAILY PO Last administered on 02/27/17 09:01; Admin Dose 40 MG; Start 02/19/17 at 09:00 Vancomycin HCl 2 gm/Sodium Chloride 500 ml @ 125 mls/hr ONCE ONCE IVPB Last administered on 02/27/17 13:31; Admin Dose 125 MLS/HR; Start 02/27/17 at 12:00 ; Stop 02/27/17 at 15:59 Vancomycin HCl (Vancocin) 250 ml @ 125 mls/hr Q48H IVPB ; Start 03/01/17 at 12: 00 FRANCIS ESPINAL MD Feb 27, 2017 15:13
--- NOTE | 2017-02-27 15:15 | CONS ---
Date/Time of Note Date/Time of Note DATE: 02/27/17 TIME: 15:13 Assessment/Plan Assessment/Plan Additional Assessment/Plan 1. Anasarca- Fluid overload multifactorial s/p Diuresis with IV lasix and IV albumin 2. acute kidney injury 3. post obstructive PNA 4. Advanced non small lung CA 5. acute respiratory failure 6. Right subclavian Deep venous thrombosis 7. acute on chronic diastolic heart failure 8. h/o fungal pneumonia 9. Hyperlipidemia 10. hypothyroidism 11. Metabolic alkalosis Plan: s/p IV albumin with Lasix diureisis-lasix 40mg pO daily, K still low, will give KCL 20mEQ IV x 1 now then start PO KCl 20mEQ BID plan is to continue current Lasix dose and monitor electrolytes IV abx as per ID and PMD, renally dose all abx Monitor Electroltyes and replace as needed. Will follow up Consultation Date/Type/Reason Admit Date/Time Jan 31, 2017 at 18:59 Initial Consult Date 02/14/17 Type of Consultation: NEPHROLOGY Referring Provider: MARYAM FARMER MD 24 HR Interval Summary Free Text/Dictation K 3.1, Cr 1.6, BP stable Exam/Review of Systems Vital Signs Vitals Vital Signs Date Time Temp Pulse Resp B/P Pulse Ox O2 Delivery O2 Flow Rate FiO2 02/27/17 14:00 68 20 95 Nasal Cannula 4.0 02/27/17 11:52 98.5 122/96 02/27/17 02:34 50 Intake and Output 02/26/17 02/26/17 02/27/17 15:00 23:00 07:00 Intake Total 650 ml 600 ml Balance 650 ml 600 ml Exam Constitutional: alert Respiratory: clear to auscultation, diminished breath sounds, normal air movement Cardiovascular: nl pulses, regular rate and rhythm Gastrointestinal: non-tender, soft Musculoskeletal: other (gernalised anasarca, 1+ edema ) Neurological: BOOK CRITIC II-XII intact, nl mental status Results Result Diagram: 02/27/1718 02/27/1718 Results 24 hrs Laboratory Tests Test 02/27/17 08:18 02/27/17 12:06 White Blood Count 4.4 #L Red Blood Count 2.85 L Hemoglobin 8.9 L Hematocrit 30.1 L Mean Corpuscular Volume 105.6 H Mean Corpuscular Hemoglobin 31.2 Mean Corpuscular Hemoglobin Concent 29.6 L Red Cell Distribution Width 14.4 Platelet Count 120 L Mean Platelet Volume 11.4 H Neutrophils % 71.1 Lymphocytes % 13.5 L Monocytes % 11.1 H Eosinophils % 3.4 Basophils % 0.7 Nucleated Red Blood Cells % 0.0 Neutrophils # 3.2 Lymphocytes # 0.6 L Monocytes # 0.5 Eosinophils # 0.2 Basophils # 0.0 Nucleated Red Blood Cells # 0.0 Prothrombin Time 18.9 #H Prothrombin Time Ratio 1.5 INR International Normalized Ratio 1.57 Activated Partial Thromboplast Time 37.0 H Sodium Level 139 Potassium Level 3.1 L Chloride Level 96 L Carbon Dioxide Level 36 H Anion Gap 10 Blood Urea Nitrogen 17 Creatinine 1.63 H Glucose Level 82 Calcium Level 8.7 Total Bilirubin 0.2 Direct Bilirubin 0.00 Indirect Bilirubin 0.2 Aspartate Amino Transf (AST/SGOT) 39 Alanine Aminotransferase (ALT/SGPT) 33 Alkaline Phosphatase 89 Total Protein 5.9 L Albumin 3.0 L Globulin 2.90 Albumin/Globulin Ratio 1.03 Blood Gas Specimen Source Blood arterial Arterial Blood Date Drawn 02/27/2017 12:30:18 PM Arterial Blood pH (Temp corrected) 7.353 Arterial Blood pCO2 (Temp correct) 66.1 H Arterial Blood pO2 (Temp corrected) 89.3 Arterial Blood HCO3 35.9 H Arterial Blood Base Excess 8.4 H Arterial Blood Oxygen Saturation 96.2 Jose Alfredo Test ACCEPTAB Arterial Blood Gas Puncture Site Right Radial Arterial Blood Carboxyhemoglobin 0.3 Arterial Blood Methemoglobin 0.3 Blood Gas A-a O2 Differential 68.8 H Oxyhemoglobin Percent 95.6 Total Hemoglobin 11.3 L Blood Gas Temperature 37.0 Blood Gas Modality NASAL CANNULA FiO2 33.0 Blood Gas Notified Whom JLD Blood Gas Notified Time 02/27/2017 12:48:48 PM Medications Medications Current Medications Atorvastatin Calcium (Lipitor) 20 mg QHS PO Last administered on 02/26/17 21: 02; Admin Dose 20 MG; Start 01/31/17 at 21:00 Escitalopram Oxalate (Lexapro) 10 mg DAILY PO Last administered on 02/27/17 09 :01; Admin Dose 10 MG; Start 02/01/17 at 09:00 Ondansetron HCl (Zofran Inj) 4 mg Q6 PRN IV NAUSEA Last administered on 05:32; Admin Dose 4 MG; Start 01/31/17 at 19:30 Morphine Sulfate (Ms Contin (Er)) 15 mg BID PO Last administered on 02/27/17 09:01; Admin Dose 15 MG; Start 01/31/17 at 23:00 Morphine Sulfate (morphine) 4 mg Q4H PRN IV SEVERE PAIN LEVEL 7-10 Last administered on 02/22/17 12:00; Admin Dose 4 MG; Start 01/31/17 at 23:00 Nitroglycerin (Nitroglycerin (Sl Tab) 0.4 Mg) 1 tab Q5M PRN SL ANGINA Last administered on 02/19/17 19:48; Admin Dose 1 TAB; Start 02/01/17 at 11:30 Pantoprazole (Protonix Tab) 40 mg DAILY@06 PO Last administered on 02/27/17 06 :05; Admin Dose 40 MG; Start 02/02/17 at 06:00 Voriconazole (Vfend) 200 mg BID PO Last administered on 02/27/17 09:01; Admin Dose 200 MG; Start 02/01/17 at 21:00 Senna (Senokot) 1 tab DAILY PRN PO CONSTIPATION Last administered on 02/03/17 20:36; Admin Dose 1 TAB; Start 02/02/17 at 16:00 Lactulose (Enulose) 20 gm DAILY PRN PO CONSTIPATION; Start 02/02/17 at 16:00 IV Flush (NS 10 ml) 10 ml PRN PRN IV IV PROTOCOL; Start 02/06/17 at 20:00 Oxymetazoline HCl (Afrin [place]) 2 spray BID NASAL Last administered on 09:02; Admin Dose 2 SPRAY; Start 02/07/17 at 15:00 Apixaban (Eliquis) 5 mg BID PO Last administered on 02/27/17 09:01; Admin Dose 5 MG; Start 02/21/17 at 09:00 Furosemide 40 mg 40 mg DAILY PO Last administered on 02/27/17 09:01; Admin Dose 40 MG; Start 02/19/17 at 09:00 Vancomycin HCl 2 gm/Sodium Chloride 500 ml @ 125 mls/hr ONCE ONCE IVPB Last administered on 02/27/17 13:31; Admin Dose 125 MLS/HR; Start 02/27/17 at 12:00 ; Stop 02/27/17 at 15:59 Vancomycin HCl (Vancocin) 250 ml @ 125 mls/hr Q48H IVPB ; Start 03/01/17 at 12: 00 MELODY JENSEN MD Feb 27, 2017 15:15
[2017-02-27] MEDS ORDERED: POTASSIUM CHLORIDE 20 MEQ in SOD CHLORIDE 0.9% 100 ML IVPB ONE (15:30)
--- NOTE | 2017-02-27 17:42 | PN ---
Date/Time of Note Date/Time of Note DATE: 02/27/17 TIME: 17:40 Assessment/Plan VTE Prophylaxis VTE Prophylaxis Intervention: SCD's Lines/Catheters IV C[facility]ter Type (from [facility]): PICC Line Central line still needed: Yes Urinary Cath still in place: No Assessment/Plan Chief Complaint/Hosp Course Patient restarted on vancomycin for paronychia. Pending evaluation for BiPAP machine at home, d/w Dr Philip. Patient is on BiPAP every night and supplemental oxygen during the day. Assessment/Plan - LIZ, Dr. Irving is following in nephrology consultation. - Post-obstructive pneumonia Dr. Philly perry is following infection disease consultation. Status post treatment with antibiotics. - Advanced non-small cell lung CA, Dr. Scanlon is following in oncology consultation. - Acute respiratory failure secondary to above. is following in pulmonology consultation. - Nonocclusive deep venous thrombosis bilateral upper extremities. Continue Eliquis. - Acute on chronic diastolic congestive heart failure, continue gentle diuresis , continue to monitor electrolytes. - h/o fungal pneumonia, on maintenance voriconazole - CAD, continue aspirin. - Hyperlipidemia, continue statin - Hypothyroidism, continue levothyroxine. Further recommendations based on clinical course. Plan of care discussed with Dr. Lincoln. Problems: Exam/Review of Systems Vital Signs Vitals Vital Signs Date Time Temp Pulse Resp B/P Pulse Ox O2 Delivery O2 Flow Rate FiO2 02/27/17 16:52 4.0 02/27/17 16:00 86 02/27/17 15:38 98.8 17 125/58 98 02/27/17 14:00 Nasal Cannula 02/27/17 02:34 50 Intake and Output 02/26/17 02/26/17 02/27/17 15:00 23:00 07:00 Intake Total 650 ml 600 ml Balance 650 ml 600 ml Exam Constitutional: alert Neck: supple Respiratory: diminished breath sounds Cardiovascular: nl pulses Gastrointestinal: non-tender, soft Extremities: edema Results Result Diagram: 02/27/1718 02/27/1718 Results 24 hrs Laboratory Tests Test 02/27/17 08:18 02/27/17 12:06 White Blood Count 4.4 #L Red Blood Count 2.85 L Hemoglobin 8.9 L Hematocrit 30.1 L Mean Corpuscular Volume 105.6 H Mean Corpuscular Hemoglobin 31.2 Mean Corpuscular Hemoglobin Concent 29.6 L Red Cell Distribution Width 14.4 Platelet Count 120 L Mean Platelet Volume 11.4 H Neutrophils % 71.1 Lymphocytes % 13.5 L Monocytes % 11.1 H Eosinophils % 3.4 Basophils % 0.7 Nucleated Red Blood Cells % 0.0 Neutrophils # 3.2 Lymphocytes # 0.6 L Monocytes # 0.5 Eosinophils # 0.2 Basophils # 0.0 Nucleated Red Blood Cells # 0.0 Prothrombin Time 18.9 #H Prothrombin Time Ratio 1.5 INR International Normalized Ratio 1.57 Activated Partial Thromboplast Time 37.0 H Sodium Level 139 Potassium Level 3.1 L Chloride Level 96 L Carbon Dioxide Level 36 H Anion Gap 10 Blood Urea Nitrogen 17 Creatinine 1.63 H Glucose Level 82 Calcium Level 8.7 Total Bilirubin 0.2 Direct Bilirubin 0.00 Indirect Bilirubin 0.2 Aspartate Amino Transf (AST/SGOT) 39 Alanine Aminotransferase (ALT/SGPT) 33 Alkaline Phosphatase 89 Total Protein 5.9 L Albumin 3.0 L Globulin 2.90 Albumin/Globulin Ratio 1.03 Blood Gas Specimen Source Blood arterial Arterial Blood Date Drawn 02/27/2017 12:30:18 PM Arterial Blood pH (Temp corrected) 7.353 Arterial Blood pCO2 (Temp correct) 66.1 H Arterial Blood pO2 (Temp corrected) 89.3 Arterial Blood HCO3 35.9 H Arterial Blood Base Excess 8.4 H Arterial Blood Oxygen Saturation 96.2 Jose Alfredo Test ACCEPTAB Arterial Blood Gas Puncture Site Right Radial Arterial Blood Carboxyhemoglobin 0.3 Arterial Blood Methemoglobin 0.3 Blood Gas A-a O2 Differential 68.8 H Oxyhemoglobin Percent 95.6 Total Hemoglobin 11.3 L Blood Gas Temperature 37.0 Blood Gas Modality NASAL CANNULA FiO2 33.0 Blood Gas Notified Whom JLD Blood Gas Notified Time 02/27/2017 12:48:48 PM Medications Medications Current Medications Atorvastatin Calcium (Lipitor) 20 mg QHS PO Last administered on 02/26/17 21: 02; Admin Dose 20 MG; Start 01/31/17 at 21:00 Escitalopram Oxalate (Lexapro) 10 mg DAILY PO Last administered on 02/27/17 09 :01; Admin Dose 10 MG; Start 02/01/17 at 09:00 Ondansetron HCl (Zofran Inj) 4 mg Q6 PRN IV NAUSEA Last administered on 05:32; Admin Dose 4 MG; Start 01/31/17 at 19:30 Morphine Sulfate (Ms Contin (Er)) 15 mg BID PO Last administered on 02/27/17 09:01; Admin Dose 15 MG; Start 01/31/17 at 23:00 Morphine Sulfate (morphine) 4 mg Q4H PRN IV SEVERE PAIN LEVEL 7-10 Last administered on 02/22/17 12:00; Admin Dose 4 MG; Start 01/31/17 at 23:00 Nitroglycerin (Nitroglycerin (Sl Tab) 0.4 Mg) 1 tab Q5M PRN SL ANGINA Last administered on 02/19/17 19:48; Admin Dose 1 TAB; Start 02/01/17 at 11:30 Pantoprazole (Protonix Tab) 40 mg DAILY@06 PO Last administered on 02/27/17 06 :05; Admin Dose 40 MG; Start 02/02/17 at 06:00 Voriconazole (Vfend) 200 mg BID PO Last administered on 02/27/17 09:01; Admin Dose 200 MG; Start 02/01/17 at 21:00 Senna (Senokot) 1 tab DAILY PRN PO CONSTIPATION Last administered on 02/03/17 20:36; Admin Dose 1 TAB; Start 02/02/17 at 16:00 Lactulose (Enulose) 20 gm DAILY PRN PO CONSTIPATION; Start 02/02/17 at 16:00 IV Flush (NS 10 ml) 10 ml PRN PRN IV IV PROTOCOL; Start 02/06/17 at 20:00 Oxymetazoline HCl (Afrin [place]) 2 spray BID NASAL Last administered on 09:02; Admin Dose 2 SPRAY; Start 02/07/17 at 15:00 Apixaban (Eliquis) 5 mg BID PO Last administered on 02/27/17 09:01; Admin Dose 5 MG; Start 02/21/17 at 09:00 Furosemide 40 mg 40 mg DAILY PO Last administered on 02/27/17 09:01; Admin Dose 40 MG; Start 02/19/17 at 09:00 Vancomycin HCl (Vancocin) 250 ml @ 125 mls/hr Q48H IVPB ; Start 03/01/17 at 12: 00 Potassium Chloride (Klor-Con 20) 20 meq BID PO ; Start 02/27/17 at 21:00 LUBA EARLY Feb 27, 2017 17:42
[2017-02-27] MEDS: ONDANSETRON 4 MG INJ IV PRN (17:48)
--- NOTE | 2017-02-27 20:15 | CONS ---
Date/Time of Note Date/Time of Note DATE: 02/27/17 TIME: 20:14 Assessment/Plan Assessment/Plan Chief Complaint/Hosp Course metastatic lung CANCER, NSCLC - ON CHEMO WITH RELATIVELY STABLE DIS D/W PULM AND RADIOLOGIST CHEMO ON HOLD DURING HOSPITALIZATION HX PANCYTOPENIA POST CHEMO MONITOR BLOOD COUNT CLOSELY LEUKOCYTOSIS PROB 2 TO POST OBSTRUCTIVE PNA HX LEUKOPENIA- POST CHEMO POST NEUPOGEN IN THE PAST RESPIRATORY INSUFFICIENCY PAIN PAIN CONTROL CHF, FLUID OVERLOAD GENTLE DIURESIS, CONSIDERING BORDERLINE BP POST Hypoxemic respiratory failure IN AUG 2016 , reaction to CARBO severe pneumonia/bronchitis due to enterobacter (09/22/2016-) HX DVT TREATED WITH LOVENOX PT SELF- DC 2 TO HEMOPTYSIS OUTPT History of coronary artery disease. Chronic obstructive pulmonary disease HX TOBACCO SMOKING Problems: Consultation Date/Type/Reason Admit Date/Time Jan 31, 2017 at 18:59 Initial Consult Date 01/31/17 [facility] Referring Provider: MARYAM FARMER MD 24 HR Interval Summary Free Text/Dictation ALL NOTED NO NEW EVENTS WEAK DECONDITIONED Exam/Review of Systems Vital Signs Vitals Vital Signs Date Time Temp Pulse Resp B/P Pulse Ox O2 Delivery O2 Flow Rate FiO2 02/27/17 20:05 87 02/27/17 19:28 20 97 Nasal Cannula 4.0 02/27/17 19:26 98.3 132/81 02/27/17 02:34 50 Intake and Output 02/26/17 02/26/17 02/27/17 15:00 23:00 07:00 Intake Total 650 ml 600 ml Balance 650 ml 600 ml Exam Exam GENERAL: The patient is alert, awake,no chest pain, + shortness of breath. NECK: JVP approximately 9 cm water. CHEST: Upper airway transmitted diffuse rhonchorous sounds. Decreased breath sounds at the bases bilaterally. HEART: Regular rate and rhythm. Normal S1, increased S2. 1/6 systolic murmur. Nondisplaced PMI. ABDOMEN: Positive bowel sounds. Soft. EXTREMITIES: 2 + edema, up and lower extremities bilaterally. 1+ pulses bilateral posterior tibial. Results Result Diagram: 02/27/17 0818 02/27/17 0818 Results 24 hrs Laboratory Tests Test 02/27/17 08:18 02/27/17 12:06 White Blood Count 4.4 #L Red Blood Count 2.85 L Hemoglobin 8.9 L Hematocrit 30.1 L Mean Corpuscular Volume 105.6 H Mean Corpuscular Hemoglobin 31.2 Mean Corpuscular Hemoglobin Concent 29.6 L Red Cell Distribution Width 14.4 Platelet Count 120 L Mean Platelet Volume 11.4 H Neutrophils % 71.1 Lymphocytes % 13.5 L Monocytes % 11.1 H Eosinophils % 3.4 Basophils % 0.7 Nucleated Red Blood Cells % 0.0 Neutrophils # 3.2 Lymphocytes # 0.6 L Monocytes # 0.5 Eosinophils # 0.2 Basophils # 0.0 Nucleated Red Blood Cells # 0.0 Prothrombin Time 18.9 #H Prothrombin Time Ratio 1.5 INR International Normalized Ratio 1.57 Activated Partial Thromboplast Time 37.0 H Sodium Level 139 Potassium Level 3.1 L Chloride Level 96 L Carbon Dioxide Level 36 H Anion Gap 10 Blood Urea Nitrogen 17 Creatinine 1.63 H Glucose Level 82 Calcium Level 8.7 Total Bilirubin 0.2 Direct Bilirubin 0.00 Indirect Bilirubin 0.2 Aspartate Amino Transf (AST/SGOT) 39 Alanine Aminotransferase (ALT/SGPT) 33 Alkaline Phosphatase 89 Total Protein 5.9 L Albumin 3.0 L Globulin 2.90 Albumin/Globulin Ratio 1.03 Blood Gas Specimen Source Blood arterial Arterial Blood Date Drawn 02/27/2017 12:30:18 PM Arterial Blood pH (Temp corrected) 7.353 Arterial Blood pCO2 (Temp correct) 66.1 H Arterial Blood pO2 (Temp corrected) 89.3 Arterial Blood HCO3 35.9 H Arterial Blood Base Excess 8.4 H Arterial Blood Oxygen Saturation 96.2 Jose Alfredo Test ACCEPTAB Arterial Blood Gas Puncture Site Right Radial Arterial Blood Carboxyhemoglobin 0.3 Arterial Blood Methemoglobin 0.3 Blood Gas A-a O2 Differential 68.8 H Oxyhemoglobin Percent 95.6 Total Hemoglobin 11.3 L Blood Gas Temperature 37.0 Blood Gas Modality NASAL CANNULA FiO2 33.0 Blood Gas Notified Whom JLD Blood Gas Notified Time 02/27/2017 12:48:48 PM Medications Medications Current Medications Atorvastatin Calcium (Lipitor) 20 mg QHS PO Last administered on 02/26/17 21: 02; Admin Dose 20 MG; Start 01/31/17 at 21:00 Escitalopram Oxalate (Lexapro) 10 mg DAILY PO Last administered on 02/27/17 09 :01; Admin Dose 10 MG; Start 02/01/17 at 09:00 Ondansetron HCl (Zofran Inj) 4 mg Q6 PRN IV NAUSEA Last administered on 17:48; Admin Dose 4 MG; Start 01/31/17 at 19:30 Morphine Sulfate (Ms Contin (Er)) 15 mg BID PO Last administered on 02/27/17 09:01; Admin Dose 15 MG; Start 01/31/17 at 23:00 Morphine Sulfate (morphine) 4 mg Q4H PRN IV SEVERE PAIN LEVEL 7-10 Last administered on 02/22/17 12:00; Admin Dose 4 MG; Start 01/31/17 at 23:00 Nitroglycerin (Nitroglycerin (Sl Tab) 0.4 Mg) 1 tab Q5M PRN SL ANGINA Last administered on 02/19/17 19:48; Admin Dose 1 TAB; Start 02/01/17 at 11:30 Pantoprazole (Protonix Tab) 40 mg DAILY@06 PO Last administered on 02/27/17 06 :05; Admin Dose 40 MG; Start 02/02/17 at 06:00 Voriconazole (Vfend) 200 mg BID PO Last administered on 02/27/17 09:01; Admin Dose 200 MG; Start 02/01/17 at 21:00 Senna (Senokot) 1 tab DAILY PRN PO CONSTIPATION Last administered on 02/03/17 20:36; Admin Dose 1 TAB; Start 02/02/17 at 16:00 Lactulose (Enulose) 20 gm DAILY PRN PO CONSTIPATION; Start 02/02/17 at 16:00 IV Flush (NS 10 ml) 10 ml PRN PRN IV IV PROTOCOL; Start 02/06/17 at 20:00 Oxymetazoline HCl (Afrin [place]) 2 spray BID NASAL Last administered on 09:02; Admin Dose 2 SPRAY; Start 02/07/17 at 15:00 Apixaban (Eliquis) 5 mg BID PO Last administered on 02/27/17 09:01; Admin Dose 5 MG; Start 02/21/17 at 09:00 Furosemide 40 mg 40 mg DAILY PO Last administered on 02/27/17 09:01; Admin Dose 40 MG; Start 02/19/17 at 09:00 Vancomycin HCl (Vancocin) 250 ml @ 125 mls/hr Q48H IVPB ; Start 03/01/17 at 12: 00 Potassium Chloride (Klor-Con 20) 20 meq BID PO ; Start 02/27/17 at 21:00 DAHIANA BABCOCK MD Feb 27, 2017 20:15
[2017-02-27] MEDS: ATORVASTATIN 20 MG TAB PO SCH (20:20)
[2017-02-27] MEDS: POTASSIUM CHLORIDE (SR) 20 MEQ TAB PO SCH (20:22)
[2017-02-28] VITALS (14 sets, daily range): BP systolic 109–138; BP diastolic 56–78; PULSE 80–95; RESP 16–20
[2017-02-28] MEDS: LEVALBUTEROL (NEB) 0.63 MG/3 ML AMP HHN SCH ×4 (01:25→19:00)
[2017-02-28] MEDS: PANTOPRAZOLE (EC) 40 MG TAB PO SCH (06:31)
[2017-02-28] MEDS: LEVOTHYROXINE 75 MCG TAB PO SCH (06:31)
[2017-02-28] MEDS: OXYMETAZOLINE 0.05% 15 ML NAS SPRAY NASAL SCH ×2 (08:03→21:12)
[2017-02-28] MEDS: DRONABINOL 2.5 MG CAP PO SCH ×3 (08:04→17:32)
[2017-02-28] MEDS: APIXABAN 5 MG TABLET PO SCH ×2 (08:50→21:11)
[2017-02-28] MEDS: FUROSEMIDE 40 MG TAB PO SCH (08:51)
[2017-02-28] MEDS: VORICONAZOLE 200 MG TAB PO SCH ×2 (08:51→21:11)
[2017-02-28] MEDS: morphine (ER) 15 MG TAB PO SCH ×2 (08:51→21:12)
[2017-02-28] MEDS: ESCITALOPRAM 10 MG TAB PO SCH (08:51)
[2017-02-28] MEDS: POTASSIUM CHLORIDE (SR) 20 MEQ TAB PO SCH ×2 (08:51→21:11)
--- NOTE | 2017-02-28 09:15 | CONS ---
Date/Time of Note Date/Time of Note DATE: 02/28/17 TIME: 09:13 Assessment/Plan Assessment/Plan Additional Assessment/Plan 1. Anasarca- Fluid overload multifactorial s/p Diuresis with IV lasix and IV albumin 2. acute kidney injury 3. post obstructive PNA 4. Advanced non small lung CA 5. acute respiratory failure 6. Right subclavian Deep venous thrombosis 7. acute on chronic diastolic heart failure 8. h/o fungal pneumonia 9. Hyperlipidemia 10. hypothyroidism 11. Metabolic alkalosis Plan: s/p IV albumin with Lasix diureisis-lasix 40mg pO daily, K was low yeterday and was given KCL 20mEQ IVX 1 yesterday- no labs today review, HCo3 improved to 36- continue PO KCl 20mEQ BID - AM labs ordered for tomorrow plan is to continue current Lasix dose and monitor electrolytes IV abx as per ID and PMD, renally dose all abx Monitor Electroltyes and replace as needed. Will follow up Consultation Date/Type/Reason Admit Date/Time Jan 31, 2017 at 18:59 Initial Consult Date 02/14/17 Type of Consultation: NEPHROLOGY Referring Provider: MARYAM FARMER MD 24 HR Interval Summary Free Text/Dictation no labs today review, d/c plannign in progress, BP stable, afebrile Exam/Review of Systems Vital Signs Vitals Vital Signs Date Time Temp Pulse Resp B/P Pulse Ox O2 Delivery O2 Flow Rate FiO2 02/28/17 08:01 87 18 96 Nasal Cannula 4.0 02/28/17 07:27 98.2 110/61 02/28/17 03:25 50 Intake and Output 02/27/17 02/27/17 02/28/17 15:00 23:00 07:00 Intake Total 900 ml 300 ml Output Total 600 ml Balance 300 ml 300 ml Exam Constitutional: alert Respiratory: clear to auscultation, diminished breath sounds, normal air movement Cardiovascular: nl pulses, regular rate and rhythm Gastrointestinal: non-tender, soft Musculoskeletal: other (gernalised anasarca, 1+ edema ) 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, nl mental status Results Result Diagram: 02/27/17 0818 02/27/17 0818 Results 24 hrs Laboratory Tests Test 02/27/17 12:06 Blood Gas Specimen Source Blood arterial Arterial Blood Date Drawn 02/27/2017 12:30:18 PM Arterial Blood pH (Temp corrected) 7.353 Arterial Blood pCO2 (Temp correct) 66.1 H Arterial Blood pO2 (Temp corrected) 89.3 Arterial Blood HCO3 35.9 H Arterial Blood Base Excess 8.4 H Arterial Blood Oxygen Saturation 96.2 Jose Alfredo Test ACCEPTAB Arterial Blood Gas Puncture Site Right Radial Arterial Blood Carboxyhemoglobin 0.3 Arterial Blood Methemoglobin 0.3 Blood Gas A-a O2 Differential 68.8 H Oxyhemoglobin Percent 95.6 Total Hemoglobin 11.3 L Blood Gas Temperature 37.0 Blood Gas Modality NASAL CANNULA FiO2 33.0 Blood Gas Notified Whom JLD Blood Gas Notified Time 02/27/2017 12:48:48 PM Medications Medications Current Medications Atorvastatin Calcium (Lipitor) 20 mg QHS PO Last administered on 02/27/17 20: 20; Admin Dose 20 MG; Start 01/31/17 at 21:00 Escitalopram Oxalate (Lexapro) 10 mg DAILY PO Last administered on 02/28/17 08 :51; Admin Dose 10 MG; Start 02/01/17 at 09:00 Ondansetron HCl (Zofran Inj) 4 mg Q6 PRN IV NAUSEA Last administered on 17:48; Admin Dose 4 MG; Start 01/31/17 at 19:30 Morphine Sulfate (Ms Contin (Er)) 15 mg BID PO Last administered on 02/28/17 08:51; Admin Dose 15 MG; Start 01/31/17 at 23:00 Morphine Sulfate (morphine) 4 mg Q4H PRN IV SEVERE PAIN LEVEL 7-10 Last administered on 02/22/17 12:00; Admin Dose 4 MG; Start 01/31/17 at 23:00 Nitroglycerin (Nitroglycerin (Sl Tab) 0.4 Mg) 1 tab Q5M PRN SL ANGINA Last administered on 02/19/17 19:48; Admin Dose 1 TAB; Start 02/01/17 at 11:30 Pantoprazole (Protonix Tab) 40 mg DAILY@06 PO Last administered on 02/28/17 06 :31; Admin Dose 40 MG; Start 02/02/17 at 06:00 Voriconazole (Vfend) 200 mg BID PO Last administered on 02/28/17 08:51; Admin Dose 200 MG; Start 02/01/17 at 21:00 Senna (Senokot) 1 tab DAILY PRN PO CONSTIPATION Last administered on 02/03/17 20:36; Admin Dose 1 TAB; Start 02/02/17 at 16:00 Lactulose (Enulose) 20 gm DAILY PRN PO CONSTIPATION; Start 02/02/17 at 16:00 IV Flush (NS 10 ml) 10 ml PRN PRN IV IV PROTOCOL; Start 02/06/17 at 20:00 Oxymetazoline HCl (Afrin [place]) 2 spray BID NASAL Last administered on 08:03; Admin Dose 2 SPRAY; Start 02/07/17 at 15:00 Apixaban (Eliquis) 5 mg BID PO Last administered on 02/28/17 08:50; Admin Dose 5 MG; Start 02/21/17 at 09:00 Furosemide 40 mg 40 mg DAILY PO Last administered on 02/28/17 08:51; Admin Dose 40 MG; Start 02/19/17 at 09:00 Vancomycin HCl (Vancocin) 250 ml @ 125 mls/hr Q48H IVPB ; Start 03/01/17 at 12: 00 Potassium Chloride (Klor-Con 20) 20 meq BID PO Last administered on 02/28/17 08:51; Admin Dose 20 MEQ; Start 02/27/17 at 21:00 MELODY JENSEN MD Feb 28, 2017 09:15
[2017-02-28 10:13] LABS: CALCIUM 8.4 mg/dl (8.4-10.2); CREATININE 1.69 mg/dl (0.61-1.24); POTASSIUM 3.5 mmol/L (3.5-5.1)
--- NOTE | 2017-02-28 10:51 | CONS ---
Date/Time of Note Date/Time of Note DATE: 02/28/17 TIME: 10:47 Assessment/Plan Assessment/Plan Additional Assessment/Plan Assessment and recommendations; 1. Patient admitted with hypoxemic and hypercapnic respiratory failure due to extensively metastasized non small cell lung cancer. Next 2. Extensive pneumonia in the right lung with significant postobstructive element. 3. Left upper extremity DVT. 4. Persistent hypercapnia. 5. COPD. 6. Depression. 7. Mild CHF. Continue current treatment. Consider discharge off antibiotics. 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 Patient would qualify for BiPAP without undergoing a sleep study based upon significant hypercapnia. Prognosis remains poor. Consultation Date/Type/Reason Admit Date/Time Jan 31, 2017 at 18:59 Initial Consult Date 02/01/17 Type of Consultation: Pulmonary Referring Provider: MARYAM FARMER MD 24 HR Interval Summary Free Text/Dictation Patient's condition is stable. Complains of stable dyspnea on exertion. Still complains of occasional hemoptysis. Denies wheezing, chest pain, fever or abdominal pain. Patient is eating fairly well. General exam; elderly male, morbidly obese, awake and alert. Currently in no distress. Exam/Review of Systems Vital Signs Vitals Vital Signs Date Time Temp Pulse Resp B/P Pulse Ox O2 Delivery O2 Flow Rate FiO2 02/28/17 08:30 84 02/28/17 08:01 18 96 Nasal Cannula 4.0 02/28/17 07:27 98.2 110/61 02/28/17 03:25 50 Intake and Output 02/27/17 02/27/17 02/28/17 15:00 23:00 07:00 Intake Total 900 ml 300 ml Output Total 600 ml Balance 300 ml 300 ml Exam HEENT exam; supple neck, no JVD. No lymphadenopathy. Midline trachea. No thyromegaly. Pharynx is clear. Patient has fair dentition. Pupils are midsize and reactive to light. Patient is alopecic. Chest exam; bronchial breath sounds involving right lung. Left lung to auscultation. S1-S2 audible no murmurs. Regular rhythm. Abdomen exam; soft, protuberant. Nontender. Bowel sounds audible. Extremity exam; no peripheral edema. No clubbing. SECOND HAND exam; no focal motor deficit. Results Result Diagram: 02/27/17 0818 02/28/17 0823 Results 24 hrs Laboratory Tests Test 02/27/17 12:06 02/28/17 08:23 Blood Gas Specimen Source Blood arterial Arterial Blood Date Drawn 02/27/2017 12:30:18 PM Arterial Blood pH (Temp corrected) 7.353 Arterial Blood pCO2 (Temp correct) 66.1 H Arterial Blood pO2 (Temp corrected) 89.3 Arterial Blood HCO3 35.9 H Arterial Blood Base Excess 8.4 H Arterial Blood Oxygen Saturation 96.2 Jose Alfredo Test ACCEPTAB Arterial Blood Gas Puncture Site Right Radial Arterial Blood Carboxyhemoglobin 0.3 Arterial Blood Methemoglobin 0.3 Blood Gas A-a O2 Differential 68.8 H Oxyhemoglobin Percent 95.6 Total Hemoglobin 11.3 L Blood Gas Temperature 37.0 Blood Gas Modality NASAL CANNULA FiO2 33.0 Blood Gas Notified Whom JLD Blood Gas Notified Time 02/27/2017 12:48:48 PM Sodium Level 139 Potassium Level 3.5 Chloride Level 98 Carbon Dioxide Level 34 H Anion Gap 11 Blood Urea Nitrogen 18 Creatinine 1.69 H Glucose Level 85 Calcium Level 8.4 Medications Medications Current Medications Atorvastatin Calcium (Lipitor) 20 mg QHS PO Last administered on 02/27/17 20: 20; Admin Dose 20 MG; Start 01/31/17 at 21:00 Escitalopram Oxalate (Lexapro) 10 mg DAILY PO Last administered on 02/28/17 08 :51; Admin Dose 10 MG; Start 02/01/17 at 09:00 Ondansetron HCl (Zofran Inj) 4 mg Q6 PRN IV NAUSEA Last administered on 17:48; Admin Dose 4 MG; Start 01/31/17 at 19:30 Morphine Sulfate (Ms Contin (Er)) 15 mg BID PO Last administered on 02/28/17 08:51; Admin Dose 15 MG; Start 01/31/17 at 23:00 Morphine Sulfate (morphine) 4 mg Q4H PRN IV SEVERE PAIN LEVEL 7-10 Last administered on 02/22/17 12:00; Admin Dose 4 MG; Start 01/31/17 at 23:00 Nitroglycerin (Nitroglycerin (Sl Tab) 0.4 Mg) 1 tab Q5M PRN SL ANGINA Last administered on 02/19/17 19:48; Admin Dose 1 TAB; Start 02/01/17 at 11:30 Pantoprazole (Protonix Tab) 40 mg DAILY@06 PO Last administered on 02/28/17 06 :31; Admin Dose 40 MG; Start 02/02/17 at 06:00 Voriconazole (Vfend) 200 mg BID PO Last administered on 02/28/17 08:51; Admin Dose 200 MG; Start 02/01/17 at 21:00 Senna (Senokot) 1 tab DAILY PRN PO CONSTIPATION Last administered on 02/03/17 20:36; Admin Dose 1 TAB; Start 02/02/17 at 16:00 Lactulose (Enulose) 20 gm DAILY PRN PO CONSTIPATION; Start 02/02/17 at 16:00 IV Flush (NS 10 ml) 10 ml PRN PRN IV IV PROTOCOL; Start 02/06/17 at 20:00 Oxymetazoline HCl (Afrin [place]) 2 spray BID NASAL Last administered on 08:03; Admin Dose 2 SPRAY; Start 02/07/17 at 15:00 Apixaban (Eliquis) 5 mg BID PO Last administered on 02/28/17 08:50; Admin Dose 5 MG; Start 02/21/17 at 09:00 Furosemide (Lasix) 40 mg DAILY PO Last administered on 02/28/17 08:51; Admin Dose 40 MG; Start 02/19/17 at 09:00 Potassium Chloride 20 meq 20 meq BID PO Last administered on 02/28/17 08:51; Admin Dose 20 MEQ; Start 02/27/17 at 21:00 Vancomycin HCl (Vancocin) 250 ml @ 125 mls/hr Q24H IVPB ; Start 02/28/17 at 13: 00 ISMA CUTLER Feb 28, 2017 10:51
--- NOTE | 2017-02-28 10:58 | CONS ---
Date/Time of Note Date/Time of Note DATE: 02/28/17 TIME: 10:58 Assessment/Plan Assessment/Plan Chief Complaint/Hosp Course metastatic lung CANCER, NSCLC - ON CHEMO WITH RELATIVELY STABLE DIS D/W PULM AND RADIOLOGIST CHEMO ON HOLD DURING HOSPITALIZATION HX PANCYTOPENIA POST CHEMO MONITOR BLOOD COUNT CLOSELY LEUKOCYTOSIS PROB 2 TO POST OBSTRUCTIVE PNA HX LEUKOPENIA- POST CHEMO POST NEUPOGEN IN THE PAST RESPIRATORY INSUFFICIENCY PAIN PAIN CONTROL CHF, FLUID OVERLOAD GENTLE DIURESIS, CONSIDERING BORDERLINE BP POST Hypoxemic respiratory failure IN AUG 2016 , reaction to [facility] severe pneumonia/bronchitis due to enterobacter (09/22/2016-) HX DVT TREATED WITH LOVENOX PT SELF- DC 2 TO HEMOPTYSIS OUTPT History of coronary artery disease. Chronic obstructive pulmonary disease HX TOBACCO SMOKING Problems: Consultation Date/Type/Reason Admit Date/Time Jan 31, 2017 at 18:59 Initial Consult Date 01/31/17 Type of Consultation: [facility] Referring Provider: MARYAM FARMER MD 24 HR Interval Summary Free Text/Dictation ALL NOTED WEAK NO NEW EVENTS Exam/Review of Systems Vital Signs Vitals Vital Signs Date Time Temp Pulse Resp B/P Pulse Ox O2 Delivery O2 Flow Rate FiO2 02/28/17 08:30 84 02/28/17 08:01 18 96 Nasal Cannula 4.0 02/28/17 07:27 98.2 110/61 02/28/17 03:25 50 Intake and Output 02/27/17 02/27/17 02/28/17 15:00 23:00 07:00 Intake Total 900 ml 300 ml Output Total 600 ml Balance 300 ml 300 ml Exam GENERAL: The patient is alert, awake,no chest pain, + shortness of breath. NECK: JVP approximately 9 cm water. CHEST: Upper airway transmitted diffuse rhonchorous sounds. Decreased breath sounds at the bases bilaterally. HEART: Regular rate and rhythm. Normal S1, increased S2. 1/6 systolic murmur. Nondisplaced PMI. ABDOMEN: Positive bowel sounds. Soft. EXTREMITIES: 2 + edema, up and lower extremities bilaterally. 1+ pulses bilateral posterior tibial. Results Result Diagram: 02/27/17 0818 02/28/17 0823 Results 24 hrs Laboratory Tests Test 02/27/17 12:06 02/28/17 08:23 Blood Gas Specimen Source Blood arterial Arterial Blood Date Drawn 02/27/2017 12:30:18 PM Arterial Blood pH (Temp corrected) 7.353 Arterial Blood pCO2 (Temp correct) 66.1 H Arterial Blood pO2 (Temp corrected) 89.3 Arterial Blood HCO3 35.9 H Arterial Blood Base Excess 8.4 H Arterial Blood Oxygen Saturation 96.2 Jose Alfredo Test ACCEPTAB Arterial Blood Gas Puncture Site Right Radial Arterial Blood Carboxyhemoglobin 0.3 Arterial Blood Methemoglobin 0.3 Blood Gas A-a O2 Differential 68.8 H Oxyhemoglobin Percent 95.6 Total Hemoglobin 11.3 L Blood Gas Temperature 37.0 Blood Gas Modality NASAL CANNULA FiO2 33.0 Blood Gas Notified Whom JLD Blood Gas Notified Time 02/27/2017 12:48:48 PM Sodium Level 139 Potassium Level 3.5 Chloride Level 98 Carbon Dioxide Level 34 H Anion Gap 11 Blood Urea Nitrogen 18 Creatinine 1.69 H Glucose Level 85 Calcium Level 8.4 Medications Medications Current Medications Atorvastatin Calcium (Lipitor) 20 mg QHS PO Last administered on 02/27/17 20: 20; Admin Dose 20 MG; Start 01/31/17 at 21:00 Escitalopram Oxalate (Lexapro) 10 mg DAILY PO Last administered on 02/28/17 08 :51; Admin Dose 10 MG; Start 02/01/17 at 09:00 Ondansetron HCl (Zofran Inj) 4 mg Q6 PRN IV NAUSEA Last administered on 17:48; Admin Dose 4 MG; Start 01/31/17 at 19:30 Morphine Sulfate (Ms Contin (Er)) 15 mg BID PO Last administered on 02/28/17 08:51; Admin Dose 15 MG; Start 01/31/17 at 23:00 Morphine Sulfate (morphine) 4 mg Q4H PRN IV SEVERE PAIN LEVEL 7-10 Last administered on 02/22/17 12:00; Admin Dose 4 MG; Start 01/31/17 at 23:00 Nitroglycerin (Nitroglycerin (Sl Tab) 0.4 Mg) 1 tab Q5M PRN SL ANGINA Last administered on 02/19/17 19:48; Admin Dose 1 TAB; Start 02/01/17 at 11:30 Pantoprazole (Protonix Tab) 40 mg DAILY@06 PO Last administered on 02/28/17 06 :31; Admin Dose 40 MG; Start 02/02/17 at 06:00 Voriconazole (Vfend) 200 mg BID PO Last administered on 02/28/17 08:51; Admin Dose 200 MG; Start 02/01/17 at 21:00 Senna (Senokot) 1 tab DAILY PRN PO CONSTIPATION Last administered on 02/03/17 20:36; Admin Dose 1 TAB; Start 02/02/17 at 16:00 Lactulose (Enulose) 20 gm DAILY PRN PO CONSTIPATION; Start 02/02/17 at 16:00 IV Flush (NS 10 ml) 10 ml PRN PRN IV IV PROTOCOL; Start 02/06/17 at 20:00 Oxymetazoline HCl (Afrin [place]) 2 spray BID NASAL Last administered on 08:03; Admin Dose 2 SPRAY; Start 02/07/17 at 15:00 Apixaban (Eliquis) 5 mg BID PO Last administered on 02/28/17 08:50; Admin Dose 5 MG; Start 02/21/17 at 09:00 Furosemide (Lasix) 40 mg DAILY PO Last administered on 02/28/17 08:51; Admin Dose 40 MG; Start 02/19/17 at 09:00 Potassium Chloride 20 meq 20 meq BID PO Last administered on 02/28/17 08:51; Admin Dose 20 MEQ; Start 02/27/17 at 21:00 Vancomycin HCl (Vancocin) 250 ml @ 125 mls/hr Q24H IVPB ; Start 02/28/17 at 13: 00 DAHIANA BABCOCK MD Feb 28, 2017 10:58
--- NOTE | 2017-02-28 11:15 | CONS ---
Date/Time of Note Date/Time of Note DATE: 02/28/17 TIME: 11:12 Assessment/Plan Assessment/Plan Chief Complaint/Hosp Course - h/o sepsis due to recurrent pneumonia, and to a lessor degree due to paronychia. 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 Aspergillus antibody was >1:64 but aspergillus antigen in serum by EIA was negative during his last admission. - macrocytic anemia - thrombocytopenia - h/o DVT of b/l UEs - b/l knee pain due to DJD - h/o post-obstructive pneumonia - h/o HTN, CAD, hyperlipidemia - h/o paroxysmal A fib - h/o hypothyroidism with elevated TSH level - HIV negative in 2013 - nonocclusive thrombus around the PICC catheter within the left brachial vein, axillary vein and subclavian vein per doppler 02/13/2017 recommendations: - pending: wound cultures from L 3rd and R 2nd fingernail - continue empiric IV vancomycin for paronychia (restart 02/27/2017-) - consider hand or plastic surgery consult re. near detachment of multiple nail - continue voriconazole for chronic suppression of aspergillus given his immunocompromised state; monitor LFTs weekly, last checked on 02/24/2017 management d/w Pt, Dr. Scanlon Problems: Consultation Date/Type/Reason Admit Date/Time Jan 31, 2017 at 18:59 Initial Consult Date 02/14/17 Type of Consultation: [facility] Referring Provider: MARYAM FARMER MD 24 HR Interval Summary Constitutional: no complaints Detailed Summary Eyes: no complaints ENT: no complaints Respiratory: cough, shortness of breath, No pleuritic pain Cardiovascular: no complaints Gastrointestinal: no complaints Genitourinary: no complaints Musculoskeletal: no complaints Skin: skin lesions (nailbed changs from chemo. Small amount of drainage from L 3rd and R 2nd fingernail. painless.) Neurologic: no complaints Exam/Review of Systems Vital Signs Vitals Vital Signs Date Time Temp Pulse Resp B/P Pulse Ox O2 Delivery O2 Flow Rate FiO2 02/28/17 08:30 84 02/28/17 08:01 18 96 Nasal Cannula 4.0 02/28/17 07:27 98.2 110/61 02/28/17 03:25 50 Intake and Output 02/27/17 02/27/17 02/28/17 15:00 23:00 07:00 Intake Total 900 ml 300 ml Output Total 600 ml Balance 300 ml 300 ml Exam Constitutional: alert, frail, obese, oriented Psych: nl mood/affect, no complaints Head: atraumatic, normocephalic Eyes: nl conjunctiva, nl lids ENMT: nl external ears & nose, nl nasal mucosa & septum Respiratory: crackles/rales, diminished breath sounds Cardiovascular: nl pulses, regular rate and rhythm Gastrointestinal: non-tender, soft Musculoskeletal: nl extremities to inspection Extremities: edema Neurological: 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 II-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 intact, nl mental status Skin: rash or lesions (nail changesf rom chemo; no more drainage from fingers; scab on L 3rd and R 2nd fingertip) Results Result Diagram: 02/27/17 0818 02/28/17 0823 Results 24 hrs Laboratory Tests Test 02/27/17 12:06 02/28/17 08:23 Blood Gas Specimen Source Blood arterial Arterial Blood Date Drawn 02/27/2017 12:30:18 PM Arterial Blood pH (Temp corrected) 7.353 Arterial Blood pCO2 (Temp correct) 66.1 H Arterial Blood pO2 (Temp corrected) 89.3 Arterial Blood HCO3 35.9 H Arterial Blood Base Excess 8.4 H Arterial Blood Oxygen Saturation 96.2 Jose Alfredo Test ACCEPTAB Arterial Blood Gas Puncture Site Right Radial Arterial Blood Carboxyhemoglobin 0.3 Arterial Blood Methemoglobin 0.3 Blood Gas A-a O2 Differential 68.8 H Oxyhemoglobin Percent 95.6 Total Hemoglobin 11.3 L Blood Gas Temperature 37.0 Blood Gas Modality NASAL CANNULA FiO2 33.0 Blood Gas Notified Whom JLD Blood Gas Notified Time 02/27/2017 12:48:48 PM Sodium Level 139 Potassium Level 3.5 Chloride Level 98 Carbon Dioxide Level 34 H Anion Gap 11 Blood Urea Nitrogen 18 Creatinine 1.69 H Glucose Level 85 Calcium Level 8.4 Medications Medications Current Medications Atorvastatin Calcium (Lipitor) 20 mg QHS PO Last administered on 02/27/17 20: 20; Admin Dose 20 MG; Start 01/31/17 at 21:00 Escitalopram Oxalate (Lexapro) 10 mg DAILY PO Last administered on 02/28/17 08 :51; Admin Dose 10 MG; Start 02/01/17 at 09:00 Ondansetron HCl (Zofran Inj) 4 mg Q6 PRN IV NAUSEA Last administered on 17:48; Admin Dose 4 MG; Start 01/31/17 at 19:30 Morphine Sulfate (Ms Contin (Er)) 15 mg BID PO Last administered on 02/28/17 08:51; Admin Dose 15 MG; Start 01/31/17 at 23:00 Morphine Sulfate (morphine) 4 mg Q4H PRN IV SEVERE PAIN LEVEL 7-10 Last administered on 02/22/17 12:00; Admin Dose 4 MG; Start 01/31/17 at 23:00 Nitroglycerin (Nitroglycerin (Sl Tab) 0.4 Mg) 1 tab Q5M PRN SL ANGINA Last administered on 02/19/17 19:48; Admin Dose 1 TAB; Start 02/01/17 at 11:30 Pantoprazole (Protonix Tab) 40 mg DAILY@06 PO Last administered on 02/28/17 06 :31; Admin Dose 40 MG; Start 02/02/17 at 06:00 Voriconazole (Vfend) 200 mg BID PO Last administered on 02/28/17 08:51; Admin Dose 200 MG; Start 02/01/17 at 21:00 Senna (Senokot) 1 tab DAILY PRN PO CONSTIPATION Last administered on 02/03/17 20:36; Admin Dose 1 TAB; Start 02/02/17 at 16:00 Lactulose (Enulose) 20 gm DAILY PRN PO CONSTIPATION; Start 02/02/17 at 16:00 IV Flush (NS 10 ml) 10 ml PRN PRN IV IV PROTOCOL; Start 02/06/17 at 20:00 Oxymetazoline HCl (Afrin [place]) 2 spray BID NASAL Last administered on 08:03; Admin Dose 2 SPRAY; Start 02/07/17 at 15:00 Apixaban (Eliquis) 5 mg BID PO Last administered on 02/28/17 08:50; Admin Dose 5 MG; Start 02/21/17 at 09:00 Furosemide (Lasix) 40 mg DAILY PO Last administered on 02/28/17 08:51; Admin Dose 40 MG; Start 02/19/17 at 09:00 Potassium Chloride 20 meq 20 meq BID PO Last administered on 02/28/17 08:51; Admin Dose 20 MEQ; Start 02/27/17 at 21:00 Vancomycin HCl (Vancocin) 250 ml @ 125 mls/hr Q24H IVPB ; Start 02/28/17 at 13: 00 LUKE CAAL M.D. Feb 28, 2017 11:15
[2017-02-28] MEDS: VANCOMYCIN 1 GM in NS 250 ML IVPB SCH (14:32)
--- NOTE | 2017-02-28 15:03 | CONS ---
Date/Time of Note Date/Time of Note DATE: 02/28/17 TIME: 15:00 Assessment/Plan Assessment/Plan Chief Complaint/Hosp Course IMPRESSION: 1. Chest pain. Assess for acute coronary syndrome in a patient with lung cancer, undergoing chemotherapy, likely secondary to lung cancer.-negative trop x3/no recurrent chest pain at this time 2. Abnormal electrocardiogram with nonspecific ST and T-wave abnormalities, assess for acute coronary syndrome. 3. Bradycardia, transient while on beta matthew. 4. Hypotension-improved 5. Shortness of [id number] PNA 6. Lung cancer with ongoing chemotherapy. 7. Leukocytosis. 8. Anemia. 9. Thrombocytopenia-stable 10.DVT-[id number] on eliquis 11. Renal failure-ongoing slight worsening Recc: -Tel -Continue eliquis -Continue abx;'s and f/u cx data -Continue statin -Continue abx's and f/u cx data -pulmonary toliet -Follow BP closely off of antihypertenives -Continue lasix daily PO and follow volume status closely -Continue marinol for decreased appetite Problems: Consultation Date/Type/Reason Admit Date/Time Jan 31, 2017 at 18:59 Initial Consult Date 02/01/17 Type of Consultation: cardiology Reason for Consultation HTN/CHF Referring Provider: MARYAM FARMER MD Exam/Review of Systems Vital Signs Vitals Vital Signs Date Time Temp Pulse Resp B/P Pulse Ox O2 Delivery O2 Flow Rate FiO2 02/28/17 13:37 83 20 97 Nasal Cannula 4.0 02/28/17 11:20 98.3 120/64 02/28/17 03:25 50 Intake and Output 02/27/17 02/27/17 02/28/17 15:00 23:00 07:00 Intake Total 900 ml 300 ml Output Total 600 ml Balance 300 ml 300 ml Exam Review of Systems: CONSTITUTIONAL: No fevers, chills. PULMONARY: No sob CARDIOVASCULAR: No chest pain/palpitations GASTROINTESTINAL: No nausea/vomiting. GENITOURINARY: No hematuria/dysuria. MUSCULOSKELETAL: No myagias/arthalgias. PSYCHIATRIC: The patient denies depression. NEUROLOGIC: No weakness Constitutional: alert Psych: no complaints Head: normocephalic ENMT: mucosa pink and moist Neck: jvd (9 cm water), supple Respiratory: diminished breath sounds (at bases/B) Cardiovascular: regular rate and rhythm Gastrointestinal: non-tender, soft Musculoskeletal: muscle tone (normal) Extremities: edema (none) Neurological: other Results Result Diagram: 02/27/17 0818 02/28/17 0823 Results 24 hrs Laboratory Tests Test 02/28/17 08:23 Sodium Level 139 Potassium Level 3.5 Chloride Level 98 Carbon Dioxide Level 34 H Anion Gap 11 Blood Urea Nitrogen 18 Creatinine 1.69 H Glucose Level 85 Calcium Level 8.4 Medications Medications Current Medications Atorvastatin Calcium (Lipitor) 20 mg QHS PO Last administered on 02/27/17 20: 20; Admin Dose 20 MG; Start 01/31/17 at 21:00 Escitalopram Oxalate (Lexapro) 10 mg DAILY PO Last administered on 02/28/17 08 :51; Admin Dose 10 MG; Start 02/01/17 at 09:00 Ondansetron HCl (Zofran Inj) 4 mg Q6 PRN IV NAUSEA Last administered on 17:48; Admin Dose 4 MG; Start 01/31/17 at 19:30 Morphine Sulfate (Ms Contin (Er)) 15 mg BID PO Last administered on 02/28/17 08:51; Admin Dose 15 MG; Start 01/31/17 at 23:00 Morphine Sulfate (morphine) 4 mg Q4H PRN IV SEVERE PAIN LEVEL 7-10 Last administered on 02/22/17 12:00; Admin Dose 4 MG; Start 01/31/17 at 23:00 Nitroglycerin (Nitroglycerin (Sl Tab) 0.4 Mg) 1 tab Q5M PRN SL ANGINA Last administered on 02/19/17 19:48; Admin Dose 1 TAB; Start 02/01/17 at 11:30 Pantoprazole (Protonix Tab) 40 mg DAILY@06 PO Last administered on 02/28/17 06 :31; Admin Dose 40 MG; Start 02/02/17 at 06:00 Voriconazole (Vfend) 200 mg BID PO Last administered on 02/28/17 08:51; Admin Dose 200 MG; Start 02/01/17 at 21:00 Senna (Senokot) 1 tab DAILY PRN PO CONSTIPATION Last administered on 02/03/17 20:36; Admin Dose 1 TAB; Start 02/02/17 at 16:00 Lactulose (Enulose) 20 gm DAILY PRN PO CONSTIPATION; Start 02/02/17 at 16:00 IV Flush (NS 10 ml) 10 ml PRN PRN IV IV PROTOCOL; Start 02/06/17 at 20:00 Oxymetazoline HCl (Afrin [place]) 2 spray BID NASAL Last administered on 08:03; Admin Dose 2 SPRAY; Start 02/07/17 at 15:00 Apixaban (Eliquis) 5 mg BID PO Last administered on 02/28/17 08:50; Admin Dose 5 MG; Start 02/21/17 at 09:00 Furosemide (Lasix) 40 mg DAILY PO Last administered on 02/28/17 08:51; Admin Dose 40 MG; Start 02/19/17 at 09:00 Potassium Chloride 20 meq 20 meq BID PO Last administered on 02/28/17 08:51; Admin Dose 20 MEQ; Start 02/27/17 at 21:00 Vancomycin HCl (Vancocin) 250 ml @ 125 mls/hr Q24H IVPB Last administered on 02/28/17 14:32; Admin Dose 125 MLS/HR; Start 02/28/17 at 13:00 MARIAA ÁLVAREZ Feb 28, 2017 15:03
--- NOTE | 2017-02-28 15:43 | PN ---
Date/Time of Note Date/Time of Note DATE: 02/28/17 TIME: 15:33 Assessment/Plan VTE Prophylaxis VTE Prophylaxis Intervention: SCD's Lines/Catheters IV Catheter Type (from [facility]): PICC Line Central line still needed: Yes Urinary Cath still in place: No Assessment/Plan Chief Complaint/Hosp Course Patient is awake , alert, with intermittent confusion according to patient's , will decrease IV morphine if possible. Case management for hand specialist or plastic surgeon according to patient insurance. Assessment/Plan - Paronychia, restarted on vancomycin, pending cultures. - LIZ, Dr. Irving is following in nephrology consultation. - Post-obstructive pneumonia Dr. Philly perry is following infection disease consultation. Status post treatment with antibiotics. - Advanced non-small cell lung CA, Dr. Scanlon is following in oncology consultation. - Acute respiratory failure secondary to above. is following in pulmonology consultation. - Nonocclusive deep venous thrombosis bilateral upper extremities. Continue Eliquis. - Acute on chronic diastolic congestive heart failure, continue gentle diuresis , continue to monitor electrolytes. - h/o fungal pneumonia, on maintenance voriconazole - CAD, continue aspirin. - Hyperlipidemia, continue statin - Hypothyroidism, continue levothyroxine. Further recommendations based on clinical course. Plan of care discussed with Dr. Lincoln. Problems: Exam/Review of Systems Vital Signs Vitals Vital Signs Date Time Temp Pulse Resp B/P Pulse Ox O2 Delivery O2 Flow Rate FiO2 02/28/17 13:37 83 20 97 Nasal Cannula 4.0 02/28/17 11:20 98.3 120/64 02/28/17 03:25 50 Intake and Output 02/27/17 02/27/17 02/28/17 15:00 23:00 07:00 Intake Total 900 ml 300 ml Output Total 600 ml Balance 300 ml 300 ml Exam Constitutional: alert Neck: supple Respiratory: diminished breath sounds Cardiovascular: nl pulses Gastrointestinal: non-tender, soft Extremities: edema Results Result Diagram: 02/27/17 0818 02/28/17 0823 Results 24 hrs Laboratory Tests Test 02/28/17 08:23 Sodium Level 139 Potassium Level 3.5 Chloride Level 98 Carbon Dioxide Level 34 H Anion Gap 11 Blood Urea Nitrogen 18 Creatinine 1.69 H Glucose Level 85 Calcium Level 8.4 Medications Medications Current Medications Atorvastatin Calcium (Lipitor) 20 mg QHS PO Last administered on 02/27/17 20: 20; Admin Dose 20 MG; Start 01/31/17 at 21:00 Escitalopram Oxalate (Lexapro) 10 mg DAILY PO Last administered on 02/28/17 08 :51; Admin Dose 10 MG; Start 02/01/17 at 09:00 Ondansetron HCl (Zofran Inj) 4 mg Q6 PRN IV NAUSEA Last administered on 17:48; Admin Dose 4 MG; Start 01/31/17 at 19:30 Morphine Sulfate (Ms Contin (Er)) 15 mg BID PO Last administered on 02/28/17 08:51; Admin Dose 15 MG; Start 01/31/17 at 23:00 Morphine Sulfate (morphine) 4 mg Q4H PRN IV SEVERE PAIN LEVEL 7-10 Last administered on 02/22/17 12:00; Admin Dose 4 MG; Start 01/31/17 at 23:00 Nitroglycerin (Nitroglycerin (Sl Tab) 0.4 Mg) 1 tab Q5M PRN SL ANGINA Last administered on 02/19/17 19:48; Admin Dose 1 TAB; Start 02/01/17 at 11:30 Pantoprazole (Protonix Tab) 40 mg DAILY@06 PO Last administered on 02/28/17 06 :31; Admin Dose 40 MG; Start 02/02/17 at 06:00 Voriconazole (Vfend) 200 mg BID PO Last administered on 02/28/17 08:51; Admin Dose 200 MG; Start 02/01/17 at 21:00 Senna (Senokot) 1 tab DAILY PRN PO CONSTIPATION Last administered on 02/03/17 20:36; Admin Dose 1 TAB; Start 02/02/17 at 16:00 Lactulose (Enulose) 20 gm DAILY PRN PO CONSTIPATION; Start 02/02/17 at 16:00 IV Flush (NS 10 ml) 10 ml PRN PRN IV IV PROTOCOL; Start 02/06/17 at 20:00 Oxymetazoline HCl (Afrin [place]) 2 spray BID NASAL Last administered on 08:03; Admin Dose 2 SPRAY; Start 02/07/17 at 15:00 Apixaban (Eliquis) 5 mg BID PO Last administered on 02/28/17 08:50; Admin Dose 5 MG; Start 02/21/17 at 09:00 Furosemide (Lasix) 40 mg DAILY PO Last administered on 02/28/17 08:51; Admin Dose 40 MG; Start 02/19/17 at 09:00 Potassium Chloride 20 meq 20 meq BID PO Last administered on 02/28/17 08:51; Admin Dose 20 MEQ; Start 02/27/17 at 21:00 Vancomycin HCl (Vancocin) 250 ml @ 125 mls/hr Q24H IVPB Last administered on 02/28/17 14:32; Admin Dose 125 MLS/HR; Start 02/28/17 at 13:00 LUBA EARLY Feb 28, 2017 15:43
--- NOTE | 2017-02-28 16:53 | RADRPT ---
PROCEDURE: XR Chest. CLINICAL INDICATION: Shortness of breath TECHNIQUE: Single frontal chest x-ray. COMPARISON: 02/19/2017 FINDINGS: There is persistent near complete opacification of the right hemithorax. Pulmonary vascular congest ion within the left lung appears mildly decreased. Atelectasis versus airspace disease at the left l sia base. The osseous structures and soft tissues are unremarkable. IMPRESSION: 1. No significant interval change in the near complete opacification of the right hemithorax. 2. Mildly decreased left lung congestion. RPTAT: JJ .Clay Magana MD, Date Time Electronically viewed and signed by .Clay Magana MD, on 02/28/2017 16:53 .A/
[2017-02-28] MEDS: ATORVASTATIN 20 MG TAB PO SCH (21:11)
[2017-03-01] VITALS (14 sets, daily range): BP systolic 99–146; BP diastolic 56–81; PULSE 84–106; RESP 16–20
[2017-03-01] MEDS: LEVALBUTEROL (NEB) 0.63 MG/3 ML AMP HHN SCH ×4 (01:25→19:53)
[2017-03-01] MEDS: LEVOTHYROXINE 75 MCG TAB PO SCH (06:44)
[2017-03-01] MEDS: PANTOPRAZOLE (EC) 40 MG TAB PO SCH (06:44)
[2017-03-01 07:20] LABS: BASOPHILS % 0.7 % (0.0-2.0); EOSINOPHILS # 0.1 10^3/ul (0.0-0.5); EOSINOPHILS % 3.1 % (0.0-7.0); HEMATOCRIT 27.9 % (42.0-52.0); HEMOGLOBIN 8.6 g/dl (14.0-18.0); LYMPHOCYTES # 0.7 10^3/ul (0.8-2.9); LYMPHOCYTES % 15.7 % (15.0-51.0); MEAN CORPUSCULAR HEMOGLOBIN 32.5 pg (29.0-33.0); MEAN CORPUSCULAR HGB CONC 30.8 g/dl (32.0-37.0); MEAN CORPUSCULAR VOLUME 105.3 fl (82.0-101.0); MEAN PLATELET VOLUME 11.5 fl (7.4-10.4); MONOCYTE # 0.6 10^3/ul (0.3-0.9); MONOCYTES % 12.8 % (0.0-11.0); NEUTROPHIL # 3.1 10^3/ul (1.6-7.5); NEUTROPHILS % 67.5 % (39.0-77.0); PLATELET COUNT 121 10^3/UL (140-415); RED BLOOD COUNT 2.65 10^6/ul (4.70-6.10); RED CELL DISTRIBUTION WIDTH 14.3 % (11.5-14.5); WHITE BLOOD COUNT 4.5 10^3/ul (4.8-10.8)
[2017-03-01 07:50] LABS: INR 1.55; PROTIME 18.7 Sec (12.2-14.2); PT RATIO 1.5
[2017-03-01 07:51] LABS: PARTIAL THROMBOPLASTIN TIME 36.9 Sec (25.0-35.0)
[2017-03-01 08:13] LABS: ALBUMIN 3.1 g/dl (3.3-4.9); ALBUMIN/GLOBULIN RATIO 1.1; BILIRUBIN,INDIRECT 0.1 mg/dl (0-1.1); BILIRUBIN,TOTAL 0.1 mg/dl (0.2-1.3); CALCIUM 8.8 mg/dl (8.4-10.2); CREATININE 1.55 mg/dl (0.61-1.24); POTASSIUM 3.5 mmol/L (3.5-5.1); TOTAL PROTEIN 5.9 g/dl (6.1-8.1)
[2017-03-01] MEDS: VORICONAZOLE 200 MG TAB PO SCH ×2 (08:28→21:40)
[2017-03-01] MEDS: POTASSIUM CHLORIDE (SR) 20 MEQ TAB PO SCH ×2 (08:28→21:40)
[2017-03-01] MEDS: ESCITALOPRAM 10 MG TAB PO SCH (08:29)
[2017-03-01] MEDS: DRONABINOL 2.5 MG CAP PO SCH ×3 (08:29→17:38)
[2017-03-01] MEDS: FUROSEMIDE 40 MG TAB PO SCH (08:29)
[2017-03-01] MEDS: OXYMETAZOLINE 0.05% 15 ML NAS SPRAY NASAL SCH ×2 (08:30→21:40)
[2017-03-01] MEDS: morphine (ER) 15 MG TAB PO SCH ×2 (08:30→21:40)
[2017-03-01] MEDS: APIXABAN 5 MG TABLET PO SCH ×2 (08:30→21:40)
--- NOTE | 2017-03-01 10:25 | PN ---
Date/Time of Note Date/Time of Note DATE: 03/01/17 TIME: 10:21 Assessment/Plan VTE Prophylaxis VTE Prophylaxis Intervention: other Lines/Catheters [facility] PICC Line Central line still needed: Yes Urinary Cath still in place: No Assessment/Plan Chief Complaint/Hosp Course - Problems: Assessment/Plan - Paronychia, restarted on vancomycin, pending cultures. - Anemia- H/H dropped than yestrerda - monitor CBC - MONITOR FOR S/S/ OF BLEEDING - LIZ, Dr. Irving is following in nephrology consultation. - Post-obstructive pneumonia Dr. Philly perry is following infection disease consultation. Status post treatment with antibiotics. - Advanced non-small cell lung CA, Dr. Scanlon is following in oncology consultation. - Acute respiratory failure secondary to above. is following in pulmonology consultation. - Nonocclusive deep venous thrombosis bilateral upper extremities. Continue Eliquis. - Acute on chronic diastolic congestive heart failure, continue gentle diuresis , continue to monitor electrolytes. - h/o fungal pneumonia, on maintenance voriconazole - CAD, continue aspirin. - Hyperlipidemia, continue statin - Hypothyroidism, continue levothyroxine. Further recommendations based on clinical course. Plan of care discussed with Dr. Lincoln. Subjective 24 Hr Interval Summary Free Text/Dictation Patient is awake , alert, follows simple commands, answers simple Qs, denies any complaints, Case management for hand specialist or plastic surgeon according to patient insurance. 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 staff Constitutional: requiring O2 Respiratory: shortness of breath Cardiovascular: no complaints Gastrointestinal: no complaints Musculoskeletal: no complaints Exam/Review of Systems Vital Signs Vitals Vital Signs Date Time Temp Pulse Resp B/P Pulse Ox O2 Delivery O2 Flow Rate FiO2 03/01/17 08:00 106 03/01/17 07:57 4.0 03/01/17 07:57 20 98 Nasal Cannula 03/01/17 07:30 98.2 123/70 03/01/17 01:26 50 Intake and Output 02/28/17 02/28/17 03/01/17 15:00 23:00 07:00 Intake Total 500 ml Output Total 650 ml Balance -150 ml Exam Constitutional: alert, obese Respiratory: diminished breath sounds Cardiovascular: nl pulses, other (Aflutter- SR at present.), regular rate and rhythm Gastrointestinal: non-tender, soft Musculoskeletal: nl extremities to inspection Extremities: edema (mild edema BLE) Neurological: nl speech, other Results Result Diagram: 03/01/17 0649 03/01/17 0649 Results 24 hrs Laboratory Tests Test 03/01/17 06:49 White Blood Count 4.5 L Red Blood Count 2.65 L Hemoglobin 8.6 L Hematocrit 27.9 L Mean Corpuscular Volume 105.3 H Mean Corpuscular Hemoglobin 32.5 Mean Corpuscular Hemoglobin Concent 30.8 L Red Cell Distribution Width 14.3 Platelet Count 121 L Mean Platelet Volume 11.5 H Neutrophils % 67.5 Lymphocytes % 15.7 Monocytes % 12.8 H Eosinophils % 3.1 Basophils % 0.7 Nucleated Red Blood Cells % 0.0 Neutrophils # 3.1 Lymphocytes # 0.7 L Monocytes # 0.6 Eosinophils # 0.1 Basophils # 0.0 Nucleated Red Blood Cells # 0.0 Prothrombin Time 18.7 H Prothrombin Time Ratio 1.5 INR International Normalized Ratio 1.55 Activated Partial Thromboplast Time 36.9 H Sodium Level 139 Potassium Level 3.5 Chloride Level 98 Carbon Dioxide Level 35 H Anion Gap 10 Blood Urea Nitrogen 17 Creatinine 1.55 H Glucose Level 80 Calcium Level 8.8 Total Bilirubin 0.1 L Direct Bilirubin 0.00 Indirect Bilirubin 0.1 Aspartate Amino Transf (AST/SGOT) 31 Alanine Aminotransferase (ALT/SGPT) 29 Alkaline Phosphatase 89 Total Protein 5.9 L Albumin 3.1 L Globulin 2.80 Albumin/Globulin Ratio 1.10 Medications Medications Current Medications Atorvastatin Calcium (Lipitor) 20 mg QHS PO Last administered on 02/28/17 21: 11; Admin Dose 20 MG; Start 01/31/17 at 21:00 Escitalopram Oxalate (Lexapro) 10 mg DAILY PO Last administered on 03/01/17 08 :29; Admin Dose 10 MG; Start 02/01/17 at 09:00 Ondansetron HCl (Zofran Inj) 4 mg Q6 PRN IV NAUSEA Last administered on 17:48; Admin Dose 4 MG; Start 01/31/17 at 19:30 Morphine Sulfate (Ms Contin (Er)) 15 mg BID PO Last administered on 03/01/17 08:30; Admin Dose 15 MG; Start 01/31/17 at 23:00 Nitroglycerin (Nitroglycerin (Sl Tab) 0.4 Mg) 1 tab Q5M PRN SL ANGINA Last administered on 02/19/17 19:48; Admin Dose 1 TAB; Start 02/01/17 at 11:30 Pantoprazole (Protonix Tab) 40 mg DAILY@06 PO Last administered on 03/01/17 06 :44; Admin Dose 40 MG; Start 02/02/17 at 06:00 Voriconazole (Vfend) 200 mg BID PO Last administered on 03/01/17 08:28; Admin Dose 200 MG; Start 02/01/17 at 21:00 Senna (Senokot) 1 tab DAILY PRN PO CONSTIPATION Last administered on 02/03/17 20:36; Admin Dose 1 TAB; Start 02/02/17 at 16:00 Lactulose (Enulose) 20 gm DAILY PRN PO CONSTIPATION; Start 02/02/17 at 16:00 IV Flush (NS 10 ml) 10 ml PRN PRN IV IV PROTOCOL; Start 02/06/17 at 20:00 Oxymetazoline HCl (Afrin [place]) 2 spray BID NASAL Last administered on 08:30; Admin Dose 2 SPRAY; Start 02/07/17 at 15:00 Apixaban (Eliquis) 5 mg BID PO Last administered on 03/01/17 08:30; Admin Dose 5 MG; Start 02/21/17 at 09:00 Furosemide (Lasix) 40 mg DAILY PO Last administered on 03/01/17 08:29; Admin Dose 40 MG; Start 02/19/17 at 09:00 Potassium Chloride 20 meq 20 meq BID PO Last administered on 03/01/17 08:28; Admin Dose 20 MEQ; Start 02/27/17 at 21:00 Vancomycin HCl (Vancocin) 250 ml @ 125 mls/hr Q24H IVPB Last administered on 02/28/17 14:32; Admin Dose 125 MLS/HR; Start 02/28/17 at 13:00 Morphine Sulfate (morphine) 2 mg Q4H PRN IV SEVERE PAIN LEVEL 7-10; Start 02/28 at 19:00 TRAMAINE ELLSWORTH Mar 01, 2017 10:25
--- NOTE | 2017-03-01 11:20 | CONS ---
Date/Time of Note Date/Time of Note DATE: 03/01/17 TIME: 11:16 Assessment/Plan Assessment/Plan Additional Assessment/Plan Assessment and recommendations; 1. Patient admitted with bronchopneumonia involving right lung due to extensive postobstructive element from widely metastatic non-small cell lung cancer. 2. Underlying COPD. 3. Possibly mild CHF. 4. Depression. 5. Persistent hypercapnia and hypoxemia. 6. Chronic pain. 7. 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 Consider discharge on home BiPAP. Continue home oxygen. Prognosis is poor. Consultation Date/Type/Reason Admit Date/Time Jan 31, 2017 at 18:59 Initial Consult Date 02/01/17 Type of Consultation: Pulmonary Referring Provider: MARYAM FARMER MD 24 HR Interval Summary Free Text/Dictation Patient's condition is stable. Complains of dyspnea on minimal exertion. Complains of cough with occasional hemoptysis. Denies any chest pain or wheezing. General exam; elderly male, morbidly obese, currently in no distress. Awake and alert. Exam/Review of Systems Vital Signs Vitals Vital Signs Date Time Temp Pulse Resp B/P Pulse Ox O2 Delivery O2 Flow Rate FiO2 03/01/17 08:00 Nasal Cannula 4.0 03/01/17 08:00 106 03/01/17 07:57 20 98 03/01/17 07:30 98.2 123/70 03/01/17 01:26 50 Intake and Output 02/28/17 02/28/17 03/01/17 15:00 23:00 07:00 Intake Total 500 ml Output Total 650 ml Balance -150 ml Exam HEENT exam; supple neck, no JVD. No lymphadenopathy. Midline trachea. No thyromegaly. Has fair dentition. Pharynx is clear. No neck masses. Chest exam; diminished breath sounds right lung. Left lung is clear to auscultation. S1-S2 audible, no murmurs. Regular rhythm. Abdomen exam; soft, no organomegaly. Bowel sounds audible. Protuberant. Extremity exam; no edema. No clubbing. Pulses 1+ bilaterally. COMMERCIAL LITIGATION ATTORNEY exam; no focal deficit. Results Result Diagram: 03/01/17 0649 03/01/17 0649 Results 24 hrs Laboratory Tests Test 03/01/17 06:49 White Blood Count 4.5 L Red Blood Count 2.65 L Hemoglobin 8.6 L Hematocrit 27.9 L Mean Corpuscular Volume 105.3 H Mean Corpuscular Hemoglobin 32.5 Mean Corpuscular Hemoglobin Concent 30.8 L Red Cell Distribution Width 14.3 Platelet Count 121 L Mean Platelet Volume 11.5 H Neutrophils % 67.5 Lymphocytes % 15.7 Monocytes % 12.8 H Eosinophils % 3.1 Basophils % 0.7 Nucleated Red Blood Cells % 0.0 Neutrophils # 3.1 Lymphocytes # 0.7 L Monocytes # 0.6 Eosinophils # 0.1 Basophils # 0.0 Nucleated Red Blood Cells # 0.0 Prothrombin Time 18.7 H Prothrombin Time Ratio 1.5 INR International Normalized Ratio 1.55 Activated Partial Thromboplast Time 36.9 H Sodium Level 139 Potassium Level 3.5 Chloride Level 98 Carbon Dioxide Level 35 H Anion Gap 10 Blood Urea Nitrogen 17 Creatinine 1.55 H Glucose Level 80 Calcium Level 8.8 Total Bilirubin 0.1 L Direct Bilirubin 0.00 Indirect Bilirubin 0.1 Aspartate Amino Transf (AST/SGOT) 31 Alanine Aminotransferase (ALT/SGPT) 29 Alkaline Phosphatase 89 Total Protein 5.9 L Albumin 3.1 L Globulin 2.80 Albumin/Globulin Ratio 1.10 Medications Medications Current Medications Atorvastatin Calcium (Lipitor) 20 mg QHS PO Last administered on 02/28/17 21: 11; Admin Dose 20 MG; Start 01/31/17 at 21:00 Escitalopram Oxalate (Lexapro) 10 mg DAILY PO Last administered on 03/01/17 08 :29; Admin Dose 10 MG; Start 02/01/17 at 09:00 Ondansetron HCl (Zofran Inj) 4 mg Q6 PRN IV NAUSEA Last administered on 17:48; Admin Dose 4 MG; Start 01/31/17 at 19:30 Morphine Sulfate (Ms Contin (Er)) 15 mg BID PO Last administered on 03/01/17 08:30; Admin Dose 15 MG; Start 01/31/17 at 23:00 Nitroglycerin (Nitroglycerin (Sl Tab) 0.4 Mg) 1 tab Q5M PRN SL ANGINA Last administered on 02/19/17 19:48; Admin Dose 1 TAB; Start 02/01/17 at 11:30 Pantoprazole (Protonix Tab) 40 mg DAILY@06 PO Last administered on 03/01/17 06 :44; Admin Dose 40 MG; Start 02/02/17 at 06:00 Voriconazole (Vfend) 200 mg BID PO Last administered on 03/01/17 08:28; Admin Dose 200 MG; Start 02/01/17 at 21:00 Senna (Senokot) 1 tab DAILY PRN PO CONSTIPATION Last administered on 02/03/17 20:36; Admin Dose 1 TAB; Start 02/02/17 at 16:00 Lactulose (Enulose) 20 gm DAILY PRN PO CONSTIPATION; Start 02/02/17 at 16:00 IV Flush (NS 10 ml) 10 ml PRN PRN IV IV PROTOCOL; Start 02/06/17 at 20:00 Oxymetazoline HCl (Afrin [place]) 2 spray BID NASAL Last administered on 08:30; Admin Dose 2 SPRAY; Start 02/07/17 at 15:00 Apixaban (Eliquis) 5 mg BID PO Last administered on 03/01/17 08:30; Admin Dose 5 MG; Start 02/21/17 at 09:00 Furosemide (Lasix) 40 mg DAILY PO Last administered on 03/01/17 08:29; Admin Dose 40 MG; Start 02/19/17 at 09:00 Potassium Chloride 20 meq 20 meq BID PO Last administered on 03/01/17 08:28; Admin Dose 20 MEQ; Start 02/27/17 at 21:00 Vancomycin HCl (Vancocin) 250 ml @ 125 mls/hr Q24H IVPB Last administered on 02/28/17 14:32; Admin Dose 125 MLS/HR; Start 02/28/17 at 13:00 Morphine Sulfate (morphine) 2 mg Q4H PRN IV SEVERE PAIN LEVEL 7-10; Start 02/28 at 19:00 ISMA CUTLER Mar 01, 2017 11:20
[2017-03-01] MEDS: morphine 4 MG/ML VIAL IV PRN (11:57)
[2017-03-01] MEDS ORDERED: VANCOMYCIN 1 GM in NS 250 ML IVPB SCH (12:00)
--- NOTE | 2017-03-01 12:06 | CONS ---
Date/Time of Note Date/Time of Note DATE: 03/01/17 TIME: 12:03 Assessment/Plan Assessment/Plan Chief Complaint/Hosp Course - h/o sepsis due to recurrent pneumonia, and to a lessor degree due to paronychia. s/p vanco, cefepime and levofloxacin - h/o recurrent pneumonia/bronchitis, possible post-obstructive - recurrent paronychia of L 3rd and R 2nd fingers due to S. 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 Aspergillus antibody was >1:64 but aspergillus antigen in serum by EIA was negative during his last admission. - macrocytic anemia - thrombocytopenia - h/o DVT of b/l UEs - b/l knee pain due to DJD - h/o post-obstructive pneumonia - h/o HTN, CAD, hyperlipidemia - h/o paroxysmal A fib - h/o hypothyroidism with elevated TSH level - HIV negative in 2013 - nonocclusive thrombus around the PICC catheter within the left brachial vein, axillary vein and subclavian vein per doppler 02/13/2017 recommendations: - pending results: sensitivity of S. aureus in the wound cultures from L 3rd and R 2nd fingernail - continue empiric IV vancomycin for paronychia (restart 02/27/2017-); will change the antibiotic if S. aureus is not MRSA - consider hand or plastic surgery consult re. 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 given his immunocompromised state; monitor LFTs weekly, last checked on 02/24/2017 management d/w Pt, Dr, [employer] Loretta Problems: Consultation Date/Type/Reason Admit Date/Time Jan 31, 2017 at 18:59 Initial Consult Date 02/14/17 Type of Consultation: ID Referring Provider: MARYAM FARMER MD 24 HR Interval Summary Constitutional: no complaints Detailed Summary Eyes: no complaints ENT: no complaints Respiratory: cough, No pleuritic pain, No shortness of breath Cardiovascular: no complaints Gastrointestinal: no complaints Genitourinary: no complaints Musculoskeletal: no complaints Skin: skin lesions (nail is peeling from L 3rd finger) Neurologic: no complaints Exam/Review of Systems Vital Signs Vitals Vital Signs Date Time Temp Pulse Resp B/P Pulse Ox O2 Delivery O2 Flow Rate FiO2 03/01/17 11:44 98.2 92 16 117/69 96 03/01/17 08:00 Nasal Cannula 4.0 03/01/17 01:26 50 Intake and Output 02/28/17 02/28/17 03/01/17 15:00 23:00 07:00 Intake Total 500 ml Output Total 650 ml Balance -150 ml Exam Constitutional: alert, obese Psych: nl mood/affect, no complaints Head: atraumatic, normocephalic Eyes: nl conjunctiva, nl lids, nl sclera ENMT: nl external ears & nose, nl nasal mucosa & septum Neck: supple Respiratory: crackles/rales Cardiovascular: nl pulses, regular rate and rhythm Gastrointestinal: non-tender, soft Musculoskeletal: nl extremities to inspection Extremities: No edema 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 The nailbed appears clean and non-purulent) Results Result Diagram: 03/01/17 0649 03/01/17 0649 Results 24 hrs Laboratory Tests Test 03/01/17 06:49 White Blood Count 4.5 L Red Blood Count 2.65 L Hemoglobin 8.6 L Hematocrit 27.9 L Mean Corpuscular Volume 105.3 H Mean Corpuscular Hemoglobin 32.5 Mean Corpuscular Hemoglobin Concent 30.8 L Red Cell Distribution Width 14.3 Platelet Count 121 L Mean Platelet Volume 11.5 H Neutrophils % 67.5 Lymphocytes % 15.7 Monocytes % 12.8 H Eosinophils % 3.1 Basophils % 0.7 Nucleated Red Blood Cells % 0.0 Neutrophils # 3.1 Lymphocytes # 0.7 L Monocytes # 0.6 Eosinophils # 0.1 Basophils # 0.0 Nucleated Red Blood Cells # 0.0 Prothrombin Time 18.7 H Prothrombin Time Ratio 1.5 INR International Normalized Ratio 1.55 Activated Partial Thromboplast Time 36.9 H Sodium Level 139 Potassium Level 3.5 Chloride Level 98 Carbon Dioxide Level 35 H Anion Gap 10 Blood Urea Nitrogen 17 Creatinine 1.55 H Glucose Level 80 Calcium Level 8.8 Total Bilirubin 0.1 L Direct Bilirubin 0.00 Indirect Bilirubin 0.1 Aspartate Amino Transf (AST/SGOT) 31 Alanine Aminotransferase (ALT/SGPT) 29 Alkaline Phosphatase 89 Total Protein 5.9 L Albumin 3.1 L Globulin 2.80 Albumin/Globulin Ratio 1.10 Medications Medications Current Medications Atorvastatin Calcium (Lipitor) 20 mg QHS PO Last administered on 02/28/17 21: 11; Admin Dose 20 MG; Start 01/31/17 at 21:00 Escitalopram Oxalate (Lexapro) 10 mg DAILY PO Last administered on 03/01/17 08 :29; Admin Dose 10 MG; Start 02/01/17 at 09:00 Ondansetron HCl (Zofran Inj) 4 mg Q6 PRN IV NAUSEA Last administered on 17:48; Admin Dose 4 MG; Start 01/31/17 at 19:30 Morphine Sulfate (Ms Contin (Er)) 15 mg BID PO Last administered on 03/01/17 08:30; Admin Dose 15 MG; Start 01/31/17 at 23:00 Nitroglycerin (Nitroglycerin (Sl Tab) 0.4 Mg) 1 tab Q5M PRN SL ANGINA Last administered on 02/19/17 19:48; Admin Dose 1 TAB; Start 02/01/17 at 11:30 Pantoprazole (Protonix Tab) 40 mg DAILY@06 PO Last administered on 03/01/17 06 :44; Admin Dose 40 MG; Start 02/02/17 at 06:00 Voriconazole (Vfend) 200 mg BID PO Last administered on 03/01/17 08:28; Admin Dose 200 MG; Start 02/01/17 at 21:00 Senna (Senokot) 1 tab DAILY PRN PO CONSTIPATION Last administered on 02/03/17 20:36; Admin Dose 1 TAB; Start 02/02/17 at 16:00 Lactulose (Enulose) 20 gm DAILY PRN PO CONSTIPATION; Start 02/02/17 at 16:00 IV Flush (NS 10 ml) 10 ml PRN PRN IV IV PROTOCOL; Start 02/06/17 at 20:00 Oxymetazoline HCl (Afrin [place]) 2 spray BID NASAL Last administered on 08:30; Admin Dose 2 SPRAY; Start 02/07/17 at 15:00 Apixaban (Eliquis) 5 mg BID PO Last administered on 03/01/17 08:30; Admin Dose 5 MG; Start 02/21/17 at 09:00 Furosemide (Lasix) 40 mg DAILY PO Last administered on 03/01/17 08:29; Admin Dose 40 MG; Start 02/19/17 at 09:00 Potassium Chloride 20 meq 20 meq BID PO Last administered on 03/01/17 08:28; Admin Dose 20 MEQ; Start 02/27/17 at 21:00 Vancomycin HCl (Vancocin) 250 ml @ 125 mls/hr Q24H IVPB Last administered on 02/28/17 14:32; Admin Dose 125 MLS/HR; Start 02/28/17 at 13:00 Morphine Sulfate (morphine) 2 mg Q4H PRN IV SEVERE PAIN LEVEL 7-10 Last administered on 03/01/17 11:57; Admin Dose 2 MG; Start 02/28/17 at 19:00 LUKE CAAL M.D. Mar 01, 2017 12:06
[2017-03-01] MEDS: VANCOMYCIN 1 GM in NS 250 ML IVPB SCH (13:10)
--- NOTE | 2017-03-01 13:43 | CONS ---
Date/Time of Note Date/Time of Note DATE: 03/01/17 TIME: 13:42 Assessment/Plan Assessment/Plan Chief Complaint/Hosp Course IMPRESSION: 1. Chest pain. Assess for acute coronary syndrome in a patient with lung cancer, undergoing chemotherapy, likely secondary to lung cancer.-negative trop x3/no recurrent chest pain at this time 2. Abnormal electrocardiogram with nonspecific ST and T-wave abnormalities, assess for acute coronary syndrome. 3. Bradycardia, transient while on beta matthew. 4. Hypotension-improved 5. Shortness of [id number] PNA 6. Lung cancer with ongoing chemotherapy. 7. Leukocytosis. 8. Anemia. 9. Thrombocytopenia-stable [id number].DVT-[id number] on eliquis 11. Renal failure-ongoing slight worsening Recc: -Tel -Continue eliquis -Continue abx;'s and f/u cx data -Continue statin -Continue abx's and f/u cx data -pulmonary toliet -Follow BP closely off of antihypertenives -Continue lasix daily PO and follow volume status closely -Continue marinol for decreased appetite Problems: Consultation Date/Type/Reason Admit Date/Time Jan 31, 2017 at 18:59 Initial Consult Date 02/01/17 Type of Consultation: cardiology Reason for Consultation CHF Referring Provider: MARYAM FARMER MD Exam/Review of Systems Vital Signs Vitals Vital Signs Date Time Temp Pulse Resp B/P Pulse Ox O2 Delivery O2 Flow Rate FiO2 03/01/17 12:00 93 03/01/17 11:44 98.2 16 117/69 96 03/01/17 08:00 Nasal Cannula 4.0 03/01/17 01:26 50 Intake and Output 02/28/17 02/28/17 03/01/17 15:00 23:00 07:00 Intake Total 500 ml Output Total 650 ml Balance -150 ml Exam Review of Systems: CONSTITUTIONAL: No fevers, chills. PULMONARY: ongoing sob CARDIOVASCULAR: No chest pain/palpitations GASTROINTESTINAL: No nausea/vomiting. GENITOURINARY: No hematuria/dysuria. MUSCULOSKELETAL: No myagias/arthalgias. PSYCHIATRIC: The patient denies depression. NEUROLOGIC: No weakness Constitutional: alert Psych: no complaints Head: normocephalic ENMT: mucosa pink and moist Neck: jvd (9 cm water), supple Respiratory: diminished breath sounds (at bases/B) Cardiovascular: regular rate and rhythm Gastrointestinal: non-tender, soft Musculoskeletal: muscle tone (normal) Extremities: edema (none) Neurological: other (No focal deficits) Results Result Diagram: 03/01/17 0649 03/01/17 0649 Results 24 hrs Laboratory Tests Test 03/01/17 06:49 White Blood Count 4.5 L Red Blood Count 2.65 L Hemoglobin 8.6 L Hematocrit 27.9 L Mean Corpuscular Volume 105.3 H Mean Corpuscular Hemoglobin 32.5 Mean Corpuscular Hemoglobin Concent 30.8 L Red Cell Distribution Width 14.3 Platelet Count 121 L Mean Platelet Volume 11.5 H Neutrophils % 67.5 Lymphocytes % 15.7 Monocytes % 12.8 H Eosinophils % 3.1 Basophils % 0.7 Nucleated Red Blood Cells % 0.0 Neutrophils # 3.1 Lymphocytes # 0.7 L Monocytes # 0.6 Eosinophils # 0.1 Basophils # 0.0 Nucleated Red Blood Cells # 0.0 Prothrombin Time 18.7 H Prothrombin Time Ratio 1.5 INR International Normalized Ratio 1.55 Activated Partial Thromboplast Time 36.9 H Sodium Level 139 Potassium Level 3.5 Chloride Level 98 Carbon Dioxide Level 35 H Anion Gap 10 Blood Urea Nitrogen 17 Creatinine 1.55 H Glucose Level 80 Calcium Level 8.8 Total Bilirubin 0.1 L Direct Bilirubin 0.00 Indirect Bilirubin 0.1 Aspartate Amino Transf (AST/SGOT) 31 Alanine Aminotransferase (ALT/SGPT) 29 Alkaline Phosphatase 89 Total Protein 5.9 L Albumin 3.1 L Globulin 2.80 Albumin/Globulin Ratio 1.10 Medications Medications Current Medications Atorvastatin Calcium (Lipitor) 20 mg QHS PO Last administered on 02/28/17 21: 11; Admin Dose 20 MG; Start 01/31/17 at 21:00 Escitalopram Oxalate (Lexapro) 10 mg DAILY PO Last administered on 03/01/17 08 :29; Admin Dose 10 MG; Start 02/01/17 at 09:00 Ondansetron HCl (Zofran Inj) 4 mg Q6 PRN IV NAUSEA Last administered on 17:48; Admin Dose 4 MG; Start 01/31/17 at 19:30 Morphine Sulfate (Ms Contin (Er)) 15 mg BID PO Last administered on 03/01/17 08:30; Admin Dose 15 MG; Start 01/31/17 at 23:00 Nitroglycerin (Nitroglycerin (Sl Tab) 0.4 Mg) 1 tab Q5M PRN SL ANGINA Last administered on 02/19/17 19:48; Admin Dose 1 TAB; Start 02/01/17 at 11:30 Pantoprazole (Protonix Tab) 40 mg DAILY@06 PO Last administered on 03/01/17 06 :44; Admin Dose 40 MG; Start 02/02/17 at 06:00 Voriconazole (Vfend) 200 mg BID PO Last administered on 03/01/17 08:28; Admin Dose 200 MG; Start 02/01/17 at 21:00 Senna (Senokot) 1 tab DAILY PRN PO CONSTIPATION Last administered on 02/03/17 20:36; Admin Dose 1 TAB; Start 02/02/17 at 16:00 Lactulose (Enulose) 20 gm DAILY PRN PO CONSTIPATION; Start 02/02/17 at 16:00 IV Flush (NS 10 ml) 10 ml PRN PRN IV IV PROTOCOL; Start 02/06/17 at 20:00 Oxymetazoline HCl (Afrin [place]) 2 spray BID NASAL Last administered on 08:30; Admin Dose 2 SPRAY; Start 02/07/17 at 15:00 Apixaban (Eliquis) 5 mg BID PO Last administered on 03/01/17 08:30; Admin Dose 5 MG; Start 02/21/17 at 09:00 Furosemide (Lasix) 40 mg DAILY PO Last administered on 03/01/17 08:29; Admin Dose 40 MG; Start 02/19/17 at 09:00 Potassium Chloride 20 meq 20 meq BID PO Last administered on 03/01/17 08:28; Admin Dose 20 MEQ; Start 02/27/17 at 21:00 Vancomycin HCl (Vancocin) 250 ml @ 125 mls/hr Q24H IVPB Last administered on 03/01/17 13:10; Admin Dose 125 MLS/HR; Start 02/28/17 at 13:00 Morphine Sulfate (morphine) 2 mg Q4H PRN IV SEVERE PAIN LEVEL 7-10 Last administered on 03/01/17 11:57; Admin Dose 2 MG; Start 02/28/17 at 19:00 MARIAA ÁLVAREZ Mar 01, 2017 13:43
[2017-03-01] MEDS: ONDANSETRON 4 MG INJ IV PRN (15:19)
--- NOTE | 2017-03-01 17:02 | CONS ---
Date/Time of Note Date/Time of Note DATE: 03/01/17 TIME: 17:01 Assessment/Plan Assessment/Plan Additional Assessment/Plan 1. Anasarca- Fluid overload multifactorial s/p Diuresis with IV lasix and IV albumin 2. acute kidney injury 3. post obstructive PNA 4. Advanced non small lung CA 5. acute respiratory failure 6. Right subclavian Deep venous thrombosis 7. acute on chronic diastolic heart failure 8. h/o fungal pneumonia 9. Hyperlipidemia 10. hypothyroidism 11. Metabolic alkalosis Plan: s/p IV albumin with Lasix diureisis-lasix 40mg pO daily,Cr 1.55 today continue PO KCl 20mEQ BID plan is to continue current Lasix dose and monitor electrolytes IV abx as per ID and PMD, renally dose all abx Monitor Electroltyes and replace as needed. Will follow up Consultation Date/Type/Reason Admit Date/Time Jan 31, 2017 at 18:59 Initial Consult Date 02/14/17 Type of Consultation: NEPHROLOGY Referring Provider: MARYAM FARMER MD 24 HR Interval Summary Free Text/Dictation Cr 1.55 Exam/Review of Systems Vital Signs Vitals Vital Signs Date Time Temp Pulse Resp B/P Pulse Ox O2 Delivery O2 Flow Rate FiO2 03/01/17 16:00 93 03/01/17 15:21 98.2 16 146/81 94 03/01/17 15:13 Nasal Cannula 03/01/17 15:13 4.0 03/01/17 01:26 50 Intake and Output 02/28/17 02/28/17 03/01/17 15:00 23:00 07:00 Intake Total 500 ml Output Total 650 ml Balance -150 ml Exam Constitutional: alert Respiratory: clear to auscultation, diminished breath sounds, normal air movement Cardiovascular: nl pulses, regular rate and rhythm Gastrointestinal: non-tender, soft Musculoskeletal: , 1+ edema ) 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, nl mental status Results Result Diagram: 03/01/17 0649 03/01/17 0649 Results 24 hrs Laboratory Tests Test 03/01/17 06:49 White Blood Count 4.5 L Red Blood Count 2.65 L Hemoglobin 8.6 L Hematocrit 27.9 L Mean Corpuscular Volume 105.3 H Mean Corpuscular Hemoglobin 32.5 Mean Corpuscular Hemoglobin Concent 30.8 L Red Cell Distribution Width 14.3 Platelet Count 121 L Mean Platelet Volume 11.5 H Neutrophils % 67.5 Lymphocytes % 15.7 Monocytes % 12.8 H Eosinophils % 3.1 Basophils % 0.7 Nucleated Red Blood Cells % 0.0 Neutrophils # 3.1 Lymphocytes # 0.7 L Monocytes # 0.6 Eosinophils # 0.1 Basophils # 0.0 Nucleated Red Blood Cells # 0.0 Prothrombin Time 18.7 H Prothrombin Time Ratio 1.5 INR International Normalized Ratio 1.55 Activated Partial Thromboplast Time 36.9 H Sodium Level 139 Potassium Level 3.5 Chloride Level 98 Carbon Dioxide Level 35 H Anion Gap 10 Blood Urea Nitrogen 17 Creatinine 1.55 H Glucose Level 80 Calcium Level 8.8 Total Bilirubin 0.1 L Direct Bilirubin 0.00 Indirect Bilirubin 0.1 Aspartate Amino Transf (AST/SGOT) 31 Alanine Aminotransferase (ALT/SGPT) 29 Alkaline Phosphatase 89 Total Protein 5.9 L Albumin 3.1 L Globulin 2.80 Albumin/Globulin Ratio 1.10 Medications Medications Current Medications Atorvastatin Calcium (Lipitor) 20 mg QHS PO Last administered on 02/28/17 21: 11; Admin Dose 20 MG; Start 01/31/17 at 21:00 Escitalopram Oxalate (Lexapro) 10 mg DAILY PO Last administered on 03/01/17 08 :29; Admin Dose 10 MG; Start 02/01/17 at 09:00 Ondansetron HCl (Zofran Inj) 4 mg Q6 PRN IV NAUSEA Last administered on 15:19; Admin Dose 4 MG; Start 01/31/17 at 19:30 Morphine Sulfate (Ms Contin (Er)) 15 mg BID PO Last administered on 03/01/17 08:30; Admin Dose 15 MG; Start 01/31/17 at 23:00 Nitroglycerin (Nitroglycerin (Sl Tab) 0.4 Mg) 1 tab Q5M PRN SL ANGINA Last administered on 02/19/17 19:48; Admin Dose 1 TAB; Start 02/01/17 at 11:30 Pantoprazole (Protonix Tab) 40 mg DAILY@06 PO Last administered on 03/01/17 06 :44; Admin Dose 40 MG; Start 02/02/17 at 06:00 Voriconazole (Vfend) 200 mg BID PO Last administered on 03/01/17 08:28; Admin Dose 200 MG; Start 02/01/17 at 21:00 Senna (Senokot) 1 tab DAILY PRN PO CONSTIPATION Last administered on 02/03/17 20:36; Admin Dose 1 TAB; Start 02/02/17 at 16:00 Lactulose (Enulose) 20 gm DAILY PRN PO CONSTIPATION; Start 02/02/17 at 16:00 IV Flush (NS 10 ml) 10 ml PRN PRN IV IV PROTOCOL; Start 02/06/17 at 20:00 Oxymetazoline HCl (Afrin [place]) 2 spray BID NASAL Last administered on 08:30; Admin Dose 2 SPRAY; Start 02/07/17 at 15:00 Apixaban (Eliquis) 5 mg BID PO Last administered on 03/01/17 08:30; Admin Dose 5 MG; Start 02/21/17 at 09:00 Furosemide (Lasix) 40 mg DAILY PO Last administered on 03/01/17 08:29; Admin Dose 40 MG; Start 02/19/17 at 09:00 Potassium Chloride 20 meq 20 meq BID PO Last administered on 03/01/17 08:28; Admin Dose 20 MEQ; Start 02/27/17 at 21:00 Vancomycin HCl (Vancocin) 250 ml @ 125 mls/hr Q24H IVPB Last administered on 03/01/17 13:10; Admin Dose 125 MLS/HR; Start 02/28/17 at 13:00 Morphine Sulfate (morphine) 2 mg Q4H PRN IV SEVERE PAIN LEVEL 7-10 Last administered on 03/01/17 11:57; Admin Dose 2 MG; Start 02/28/17 at 19:00 Miscellaneous Information (*Rx Drug Level Order Reminder*) 1 ONCE ONCE XX ; Start 03/02/17 at 12:00; Stop 03/02/17 at 12:01 MELODY JENSEN MD Mar 01, 2017 17:02
[2017-03-01] MEDS: ATORVASTATIN 20 MG TAB PO SCH (21:39)
--- NOTE | 2017-03-01 22:25 | CONS ---
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 Chronic obstructive pulmonary disease HX TOBACCO SMOKING Problems: Consultation Date/Type/Reason Admit Date/Time Jan 31, 2017 at 18:59 Initial Consult Date 01/31/17 Type of Consultation: HEMEON Referring Provider: MARYAM FARMER MD 24 HR Interval Summary Free Text/Dictation ALL NOTED D/W Exam/Review of Systems Vital Signs Vitals Vital Signs Date Time Temp Pulse Resp B/P Pulse Ox O2 Delivery O2 Flow Rate FiO2 03/01/17 20:10 98.0 68 20 99/56 96 03/01/17 19:53 Nasal Cannula 4.0 03/01/17 01:26 50 Intake and Output 02/28/17 02/28/17 03/01/17 15:00 23:00 07:00 Intake Total 500 ml Output Total 650 ml Balance -150 ml Exam CONSTITUTIONAL: No fevers, chills. PULMONARY: ongoing sob CARDIOVASCULAR: No chest pain/palpitations GASTROINTESTINAL: No nausea/vomiting. GENITOURINARY: No hematuria/dysuria. MUSCULOSKELETAL: No myagias/arthalgias. PSYCHIATRIC: The patient denies depression. NEUROLOGIC: No weakness Constitutional: alert Psych: no complaints Head: normocephalic ENMT: mucosa pink and moist Neck: jvd (9 cm water), supple Respiratory: diminished breath sounds (at bases/B) Cardiovascular: regular rate and rhythm Gastrointestinal: non-tender, soft Musculoskeletal: muscle tone (normal) Extremities: edema (none) Neurological: other (No focal deficits) Results Result Diagram: 03/01/17 0649 03/01/17 0649 Results 24 hrs Laboratory Tests Test 03/01/17 06:49 White Blood Count 4.5 L Red Blood Count 2.65 L Hemoglobin 8.6 L Hematocrit 27.9 L Mean Corpuscular Volume 105.3 H Mean Corpuscular Hemoglobin 32.5 Mean Corpuscular Hemoglobin Concent 30.8 L Red Cell Distribution Width 14.3 Platelet Count 121 L Mean Platelet Volume 11.5 H Neutrophils % 67.5 Lymphocytes % 15.7 Monocytes % 12.8 H Eosinophils % 3.1 Basophils % 0.7 Nucleated Red Blood Cells % 0.0 Neutrophils # 3.1 Lymphocytes # 0.7 L Monocytes # 0.6 Eosinophils # 0.1 Basophils # 0.0 Nucleated Red Blood Cells # 0.0 Prothrombin Time 18.7 H Prothrombin Time Ratio 1.5 INR International Normalized Ratio 1.55 Activated Partial Thromboplast Time 36.9 H Sodium Level 139 Potassium Level 3.5 Chloride Level 98 Carbon Dioxide Level 35 H Anion Gap 10 Blood Urea Nitrogen 17 Creatinine 1.55 H Glucose Level 80 Calcium Level 8.8 Total Bilirubin 0.1 L Direct Bilirubin 0.00 Indirect Bilirubin 0.1 Aspartate Amino Transf (AST/SGOT) 31 Alanine Aminotransferase (ALT/SGPT) 29 Alkaline Phosphatase 89 Total Protein 5.9 L Albumin 3.1 L Globulin 2.80 Albumin/Globulin Ratio 1.10 Medications Medications Current Medications Atorvastatin Calcium (Lipitor) 20 mg QHS PO Last administered on 03/01/17 21: 39; Admin Dose 20 MG; Start 01/31/17 at 21:00 Escitalopram Oxalate (Lexapro) 10 mg DAILY PO Last administered on 03/01/17 08 :29; Admin Dose 10 MG; Start 02/01/17 at 09:00 Ondansetron HCl (Zofran Inj) 4 mg Q6 PRN IV NAUSEA Last administered on 15:19; Admin Dose 4 MG; Start 01/31/17 at 19:30 Morphine Sulfate (Ms Contin (Er)) 15 mg BID PO Last administered on 03/01/17 21:40; Admin Dose 15 MG; Start 01/31/17 at 23:00 Nitroglycerin (Nitroglycerin (Sl Tab) 0.4 Mg) 1 tab Q5M PRN SL ANGINA Last administered on 02/19/17 19:48; Admin Dose 1 TAB; Start 02/01/17 at 11:30 Pantoprazole (Protonix Tab) 40 mg DAILY@06 PO Last administered on 03/01/17 06 :44; Admin Dose 40 MG; Start 02/02/17 at 06:00 Voriconazole (Vfend) 200 mg BID PO Last administered on 03/01/17 21:40; Admin Dose 200 MG; Start 02/01/17 at 21:00 Senna (Senokot) 1 tab DAILY PRN PO CONSTIPATION Last administered on 02/03/17 20:36; Admin Dose 1 TAB; Start 02/02/17 at 16:00 Lactulose (Enulose) 20 gm DAILY PRN PO CONSTIPATION; Start 02/02/17 at 16:00 IV Flush (NS 10 ml) 10 ml PRN PRN IV IV PROTOCOL; Start 02/06/17 at 20:00 Oxymetazoline HCl (Afrin [place]) 2 spray BID NASAL Last administered on 21:40; Admin Dose 2 SPRAY; Start 02/07/17 at 15:00 Apixaban (Eliquis) 5 mg BID PO Last administered on 03/01/17 21:40; Admin Dose 5 MG; Start 02/21/17 at 09:00 Furosemide (Lasix) 40 mg DAILY PO Last administered on 03/01/17 08:29; Admin Dose 40 MG; Start 02/19/17 at 09:00 Potassium Chloride 20 meq 20 meq BID PO Last administered on 03/01/17 21:40; Admin Dose 20 MEQ; Start 02/27/17 at 21:00 Vancomycin HCl (Vancocin) 250 ml @ 125 mls/hr Q24H IVPB Last administered on 03/01/17 13:10; Admin Dose 125 MLS/HR; Start 02/28/17 at 13:00 Morphine Sulfate (morphine) 2 mg Q4H PRN IV SEVERE PAIN LEVEL 7-10 Last administered on 03/01/17 11:57; Admin Dose 2 MG; Start 02/28/17 at 19:00 Miscellaneous Information (*Rx Drug Level Order Reminder*) 1 ONCE ONCE XX ; Start 03/02/17 at 12:00; Stop 03/02/17 at 12:01 DAHIANA BABCOCK MD Mar 01, 2017 22:25
[2017-03-02] VITALS (15 sets, daily range): BP systolic 103–136; BP diastolic 51–90; PULSE 84–102; RESP 16–20
[2017-03-02] MEDS: LEVALBUTEROL (NEB) 0.63 MG/3 ML AMP HHN SCH ×4 (01:23→20:30)
[2017-03-02] MEDS: morphine 4 MG/ML VIAL IV PRN ×3 (01:36→23:51)
[2017-03-02] MEDS: LEVOTHYROXINE 75 MCG TAB PO SCH (06:03)
[2017-03-02] MEDS: PANTOPRAZOLE (EC) 40 MG TAB PO SCH (06:03)
[2017-03-02 07:14] LABS: CREATININE 1.46 mg/dl (0.61-1.24)
[2017-03-02] MEDS: APIXABAN 5 MG TABLET PO SCH ×2 (08:22→21:14)
[2017-03-02] MEDS: VORICONAZOLE 200 MG TAB PO SCH ×2 (08:22→21:14)
[2017-03-02] MEDS: POTASSIUM CHLORIDE (SR) 20 MEQ TAB PO SCH ×2 (08:23→21:14)
[2017-03-02] MEDS: DRONABINOL 2.5 MG CAP PO SCH ×3 (08:23→17:51)
[2017-03-02] MEDS: ESCITALOPRAM 10 MG TAB PO SCH (08:23)
[2017-03-02] MEDS: FUROSEMIDE 40 MG TAB PO SCH (08:23)
[2017-03-02] MEDS: morphine (ER) 15 MG TAB PO SCH ×2 (08:23→21:14)
[2017-03-02] MEDS: OXYMETAZOLINE 0.05% 15 ML NAS SPRAY NASAL SCH ×2 (08:24→21:15)
--- NOTE | 2017-03-02 09:15 | CONS ---
Date/Time of Note Date/Time of Note DATE: 03/02/17 TIME: 09:10 Assessment/Plan Assessment/Plan Chief Complaint/Hosp Course - h/o sepsis due to recurrent pneumonia, and to a lessor degree due to paronychia. s/p vanco, cefepime and levofloxacin - h/o recurrent pneumonia/bronchitis, possible post-obstructive - recurrent paronychia of L 3rd and R 2nd fingers due to S. 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 Aspergillus antibody was >1:64 but aspergillus antigen in serum by EIA was negative during his last admission. - macrocytic anemia - thrombocytopenia - h/o DVT of b/l UEs - b/l knee pain due to DJD - h/o post-obstructive pneumonia - h/o HTN, CAD, hyperlipidemia - h/o paroxysmal A fib - h/o hypothyroidism with elevated TSH level - HIV negative in 2013 - nonocclusive thrombus around the PICC catheter within the left brachial vein, axillary vein and subclavian vein per doppler 02/13/2017 recommendations: - pending results: sensitivity of S. aureus in the wound cultures from L 3rd and R 2nd fingernail - continue empiric IV vancomycin for paronychia (restart 02/27/2017-); will change the antibiotic if S. aureus is not MRSA - I recommend hand or plastic surgery consult re. total or near detachment of multiple nail - I instructed Pt to stop peeling the nail and pressing the nail bed. Hand hygiene discussed with Pt. 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 given his immunocompromised state; monitor LFTs weekly, last checked on 02/24/2017 management d/w Pt Problems: Consultation Date/Type/Reason Admit Date/Time Jan 31, 2017 at 18:59 Initial Consult Date 02/14/17 Type of Consultation: ID Referring Provider: MARYAM FARMER MD 24 HR Interval Summary Constitutional: other (same) Detailed Summary Eyes: no complaints ENT: no complaints Respiratory: cough, other (chest tightness), sputum, No pleuritic pain Cardiovascular: no complaints Gastrointestinal: no complaints Genitourinary: no complaints Musculoskeletal: no complaints Skin: other (denies pain from fingertips), skin lesions (nail is peeling from L 3rd finger; also feel that the other nail is detaching) Neurologic: no complaints Exam/Review of Systems Vital Signs Vitals Vital Signs Date Time Temp Pulse Resp B/P Pulse Ox O2 Delivery O2 Flow Rate FiO2 03/02/17 08:49 88 03/02/17 08:00 4.0 03/02/17 08:00 18 96 Nasal Cannula 03/02/17 07:12 98.0 113/64 03/02/17 03:17 50 Intake and Output 03/01/17 03/01/17 03/02/17 15:00 23:00 07:00 Intake Total 1090 ml 300 ml Output Total 450 ml Balance 640 ml 300 ml Exam Constitutional: alert, frail, obese, oriented Psych: nl mood/affect, no complaints Head: normocephalic, other (alopecia) Eyes: nl conjunctiva, nl lids, nl sclera ENMT: nl external ears & nose, nl nasal mucosa & septum Neck: supple Respiratory: labored breathing, wheezing Cardiovascular: nl pulses, regular rate and rhythm Gastrointestinal: non-tender, soft Musculoskeletal: nl extremities to inspection Extremities: No edema Neurological: lethargic Skin: rash or lesions (nail changes due to chemo; L 3rd fingernail is detached. No purulence on the nailbed. No purulence elsewhere) Results Result Diagram: 03/01/17 0649 03/02/17 0548 Results 24 hrs Laboratory Tests Test 03/02/17 05:48 Blood Urea Nitrogen 16 Creatinine 1.46 H Medications Medications Current Medications Atorvastatin Calcium (Lipitor) 20 mg QHS PO Last administered on 03/01/17 21: 39; Admin Dose 20 MG; Start 01/31/17 at 21:00 Escitalopram Oxalate (Lexapro) 10 mg DAILY PO Last administered on 03/02/17 08 :23; Admin Dose 10 MG; Start 02/01/17 at 09:00 Ondansetron HCl (Zofran Inj) 4 mg Q6 PRN IV NAUSEA Last administered on 15:19; Admin Dose 4 MG; Start 01/31/17 at 19:30 Morphine Sulfate (Ms Contin (Er)) 15 mg BID PO Last administered on 03/02/17 08:23; Admin Dose 15 MG; Start 01/31/17 at 23:00 Nitroglycerin (Nitroglycerin (Sl Tab) 0.4 Mg) 1 tab Q5M PRN SL ANGINA Last administered on 02/19/17 19:48; Admin Dose 1 TAB; Start 02/01/17 at 11:30 Pantoprazole (Protonix Tab) 40 mg DAILY@06 PO Last administered on 03/02/17 06 :03; Admin Dose 40 MG; Start 02/02/17 at 06:00 Voriconazole (Vfend) 200 mg BID PO Last administered on 03/02/17 08:22; Admin Dose 200 MG; Start 02/01/17 at 21:00 Senna (Senokot) 1 tab DAILY PRN PO CONSTIPATION Last administered on 02/03/17 20:36; Admin Dose 1 TAB; Start 02/02/17 at 16:00 Lactulose (Enulose) 20 gm DAILY PRN PO CONSTIPATION; Start 02/02/17 at 16:00 IV Flush (NS 10 ml) 10 ml PRN PRN IV IV PROTOCOL; Start 02/06/17 at 20:00 Oxymetazoline HCl (Afrin [place]) 2 spray BID NASAL Last administered on 08:24; Admin Dose 2 SPRAY; Start 02/07/17 at 15:00 Apixaban (Eliquis) 5 mg BID PO Last administered on 03/02/17 08:22; Admin Dose 5 MG; Start 02/21/17 at 09:00 Furosemide (Lasix) 40 mg DAILY PO Last administered on 03/02/17 08:23; Admin Dose 40 MG; Start 02/19/17 at 09:00 Potassium Chloride 20 meq 20 meq BID PO Last administered on 03/02/17 08:23; Admin Dose 20 MEQ; Start 02/27/17 at 21:00 Vancomycin HCl (Vancocin) 250 ml @ 125 mls/hr Q24H IVPB Last administered on 03/01/17 13:10; Admin Dose 125 MLS/HR; Start 02/28/17 at 13:00 Morphine Sulfate (morphine) 2 mg Q4H PRN IV SEVERE PAIN LEVEL 7-10 Last administered on 03/02/17 01:36; Admin Dose 2 MG; Start 02/28/17 at 19:00 Miscellaneous Information (*Rx Drug Level Order Reminder*) 1 ONCE ONCE XX ; Start 03/02/17 at 12:00; Stop 03/02/17 at 12:01 LUKE CAAL M.D. Mar 02, 2017 09:15
[2017-03-02] MEDS ORDERED: LEVALBUTEROL (NEB) 0.63 MG/3 ML AMP HHN PRN (11:00)
[2017-03-02] MEDS: VANCOMYCIN 1 GM in NS 250 ML IVPB SCH (13:40)
--- NOTE | 2017-03-02 14:51 | CONS ---
Date/Time of Note Date/Time of Note DATE: 03/02/17 TIME: 14:51 Assessment/Plan Assessment/Plan Chief Complaint/Hosp Course metastatic lung CANCER, NSCLC - ON CHEMO WITH RELATIVELY STABLE DIS D/W PULM AND RADIOLOGIST CHEMO ON HOLD DURING HOSPITALIZATION HX PANCYTOPENIA POST CHEMO MONITOR BLOOD COUNT CLOSELY LEUKOCYTOSIS PROB 2 TO POST OBSTRUCTIVE PNA HX LEUKOPENIA- POST CHEMO POST NEUPOGEN IN THE PAST RESPIRATORY INSUFFICIENCY PAIN PAIN CONTROL CHF, FLUID OVERLOAD GENTLE DIURESIS, CONSIDERING BORDERLINE BP POST Hypoxemic respiratory failure IN AUG 2016 , reaction to CARBO severe pneumonia/bronchitis due to enterobacter (09/22/2016-) HX DVT TREATED WITH LOVENOX PT SELF- DC 2 TO HEMOPTYSIS OUTPT History of coronary artery disease. Chronic obstructive pulmonary disease HX TOBACCO SMOKING Problems: Consultation Date/Type/Reason Admit Date/Time Jan 31, 2017 at 18:59 Initial Consult Date 01/31/17 [facility] Referring Provider: MARYAM FARMER MD 24 HR Interval Summary Free Text/Dictation all noted Exam/Review of Systems Vital Signs Vitals Vital Signs Date Time Temp Pulse Resp B/P Pulse Ox O2 Delivery O2 Flow Rate FiO2 03/02/17 12:35 91 03/02/17 11:28 4.0 03/02/17 11:28 20 96 Nasal Cannula 03/02/17 11:24 98.5 103/51 03/02/17 03:17 50 Intake and Output 03/01/17 03/01/17 03/02/17 15:00 23:00 07:00 Intake Total 1090 ml 300 ml Output Total 450 ml Balance 640 ml 300 ml Exam ONSTITUTIONAL: No fevers, chills. PULMONARY: ongoing sob CARDIOVASCULAR: No chest pain/palpitations GASTROINTESTINAL: No nausea/vomiting. GENITOURINARY: No hematuria/dysuria. MUSCULOSKELETAL: No myagias/arthalgias. PSYCHIATRIC: The patient denies depression. NEUROLOGIC: No weakness Constitutional: alert Psych: no complaints Head: normocephalic ENMT: mucosa pink and moist Neck: jvd (9 cm water), supple Respiratory: diminished breath sounds (at bases/B) Cardiovascular: regular rate and rhythm Gastrointestinal: non-tender, soft Musculoskeletal: muscle tone (normal) Extremities: edema (none) Neurological: other (No focal deficits) Results Result Diagram: 03/01/17 0649 03/02/17 0548 Results 24 hrs Laboratory Tests Test 03/02/17 05:48 03/02/17 12:02 Blood Urea Nitrogen 16 Creatinine 1.46 H Vancomycin Level Trough 11.7 Medications Medications Current Medications Atorvastatin Calcium (Lipitor) 20 mg QHS PO Last administered on 03/01/17 21: 39; Admin Dose 20 MG; Start 01/31/17 at 21:00 Escitalopram Oxalate (Lexapro) 10 mg DAILY PO Last administered on 03/02/17 08 :23; Admin Dose 10 MG; Start 02/01/17 at 09:00 Ondansetron HCl (Zofran Inj) 4 mg Q6 PRN IV NAUSEA Last administered on 15:19; Admin Dose 4 MG; Start 01/31/17 at 19:30 Morphine Sulfate (Ms Contin (Er)) 15 mg BID PO Last administered on 03/02/17 08:23; Admin Dose 15 MG; Start 01/31/17 at 23:00 Nitroglycerin (Nitroglycerin (Sl Tab) 0.4 Mg) 1 tab Q5M PRN SL ANGINA Last administered on 02/19/17 19:48; Admin Dose 1 TAB; Start 02/01/17 at 11:30 Pantoprazole (Protonix Tab) 40 mg DAILY@06 PO Last administered on 03/02/17 06 :03; Admin Dose 40 MG; Start 02/02/17 at 06:00 Voriconazole (Vfend) 200 mg BID PO Last administered on 03/02/17 08:22; Admin Dose 200 MG; Start 02/01/17 at 21:00 Senna (Senokot) 1 tab DAILY PRN PO CONSTIPATION Last administered on 02/03/17 20:36; Admin Dose 1 TAB; Start 02/02/17 at 16:00 Lactulose (Enulose) 20 gm DAILY PRN PO CONSTIPATION; Start 02/02/17 at 16:00 IV Flush (NS 10 ml) 10 ml PRN PRN IV IV PROTOCOL; Start 02/06/17 at 20:00 Oxymetazoline HCl (Afrin [place]) 2 spray BID NASAL Last administered on 08:24; Admin Dose 2 SPRAY; Start 02/07/17 at 15:00 Apixaban (Eliquis) 5 mg BID PO Last administered on 03/02/17 08:22; Admin Dose 5 MG; Start 02/21/17 at 09:00 Furosemide (Lasix) 40 mg DAILY PO Last administered on 03/02/17 08:23; Admin Dose 40 MG; Start 02/19/17 at 09:00 Potassium Chloride 20 meq 20 meq BID PO Last administered on 03/02/17 08:23; Admin Dose 20 MEQ; Start 02/27/17 at 21:00 Vancomycin HCl (Vancocin) 250 ml @ 125 mls/hr Q24H IVPB Last administered on 03/02/17 13:40; Admin Dose 125 MLS/HR; Start 02/28/17 at 13:00 Morphine Sulfate (morphine) 2 mg Q4H PRN IV SEVERE PAIN LEVEL 7-10 Last administered on 03/02/17 12:32; Admin Dose 2 MG; Start 02/28/17 at 19:00 DAHIANA BABCOCK MD Mar 02, 2017 14:51
--- NOTE | 2017-03-02 15:45 | CONS ---
Date/Time of Note Date/Time of Note DATE: 03/02/17 TIME: 15:44 Assessment/Plan Assessment/Plan Additional Assessment/Plan 1. Anasarca- Fluid overload multifactorial s/p Diuresis with IV lasix and IV albumin 2. acute kidney injury 3. post obstructive PNA 4. Advanced non small lung CA 5. acute respiratory failure 6. Right subclavian Deep venous thrombosis 7. acute on chronic diastolic heart failure 8. h/o fungal pneumonia 9. Hyperlipidemia 10. hypothyroidism 11. Metabolic alkalosis Plan: s/p IV albumin with Lasix diureisis-lasix 40mg pO daily,Cr 1.46 today continue PO KCl 20mEQ BID plan is to continue current Lasix dose and monitor electrolytes IV abx as per ID and PMD, renally dose all abx Monitor Electroltyes and replace as needed. Will follow up Consultation Date/Type/Reason Admit Date/Time Jan 31, 2017 at 18:59 Initial Consult Date 02/14/17 Type of Consultation: NEPHROLOGY Referring Provider: MARYAM FARMER MD Exam/Review of Systems Vital Signs Vitals Vital Signs Date Time Temp Pulse Resp B/P Pulse Ox O2 Delivery O2 Flow Rate FiO2 03/02/17 15:35 98.0 78 16 136/90 99 03/02/17 14:51 4.0 03/02/17 14:51 Nasal Cannula 03/02/17 03:17 50 Intake and Output 03/01/17 03/01/17 03/02/17 15:00 23:00 07:00 Intake Total 1090 ml 300 ml Output Total 450 ml Balance 640 ml 300 ml Exam Constitutional: alert Respiratory: clear to auscultation, diminished breath sounds, normal air movement Cardiovascular: nl pulses, regular rate and rhythm Gastrointestinal: non-tender, soft Musculoskeletal: , 1+ edema ) Neurological: SKILLED 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 PROFESSIONAL II-XII intact, nl mental status Results Result Diagram: 03/01/17 0649 03/02/17 0548 Results 24 hrs Laboratory Tests Test 03/02/17 05:48 03/02/17 12:02 Blood Urea Nitrogen 16 Creatinine 1.46 H Vancomycin Level Trough 11.7 Medications Medications Current Medications Atorvastatin Calcium (Lipitor) 20 mg QHS PO Last administered on 03/01/17t 21: 39; Admin Dose 20 MG; Start 01/31/17 at 21:00 Escitalopram Oxalate (Lexapro) 10 mg DAILY PO Last administered on 03/02/17 08 :23; Admin Dose 10 MG; Start 02/01/17 at 09:00 Ondansetron HCl (Zofran Inj) 4 mg Q6 PRN IV NAUSEA Last administered on 15:19; Admin Dose 4 MG; Start 01/31/17 at 19:30 Morphine Sulfate (Ms Contin (Er)) 15 mg BID PO Last administered on 03/02/17 08:23; Admin Dose 15 MG; Start 01/31/17 at 23:00 Nitroglycerin (Nitroglycerin (Sl Tab) 0.4 Mg) 1 tab Q5M PRN SL ANGINA Last administered on 02/19/17 19:48; Admin Dose 1 TAB; Start 02/01/17 at 11:30 Pantoprazole (Protonix Tab) 40 mg DAILY@06 PO Last administered on 03/02/17 06 :03; Admin Dose 40 MG; Start 02/02/17 at 06:00 Voriconazole (Vfend) 200 mg BID PO Last administered on 03/02/17 08:22; Admin Dose 200 MG; Start 02/01/17 at 21:00 Senna (Senokot) 1 tab DAILY PRN PO CONSTIPATION Last administered on 02/03/17 20:36; Admin Dose 1 TAB; Start 02/02/17 at 16:00 Lactulose (Enulose) 20 gm DAILY PRN PO CONSTIPATION; Start 02/02/17 at 16:00 IV Flush (NS 10 ml) 10 ml PRN PRN IV IV PROTOCOL; Start 02/06/17 at 20:00 Oxymetazoline HCl (Afrin [place]) 2 spray BID NASAL Last administered on 08:24; Admin Dose 2 SPRAY; Start 02/07/17 at 15:00 Apixaban (Eliquis) 5 mg BID PO Last administered on 03/02/17 08:22; Admin Dose 5 MG; Start 02/21/17 at 09:00 Furosemide (Lasix) 40 mg DAILY PO Last administered on 03/02/17 08:23; Admin Dose 40 MG; Start 02/19/17 at 09:00 Potassium Chloride 20 meq 20 meq BID PO Last administered on 03/02/17 08:23; Admin Dose 20 MEQ; Start 02/27/17 at 21:00 Vancomycin HCl (Vancocin) 250 ml @ 125 mls/hr Q24H IVPB Last administered on 03/02/17 13:40; Admin Dose 125 MLS/HR; Start 02/28/17 at 13:00 Morphine Sulfate (morphine) 2 mg Q4H PRN IV SEVERE PAIN LEVEL 7-10 Last administered on 03/02/17 12:32; Admin Dose 2 MG; Start 02/28/17 at 19:00 MELODY JENSEN MD Mar 02, 2017 15:45
--- NOTE | 2017-03-02 18:38 | PN ---
Date/Time of Note Date/Time of Note DATE: 03/02/17 TIME: 18:36 Assessment/Plan VTE Prophylaxis VTE Prophylaxis Intervention: SCD's Lines/Catheters IV [facility]ter Type (from [facility]): PICC Line Central line still needed: Yes Urinary Cath still in place: No Assessment/Plan Chief Complaint/Hosp Course Patient's continues to have shortness of breath on exertion, remains afebrile. Assessment/Plan - Paronychia, MSSA, cont abx per ID. - LIZ, Dr. Irving is following in nephrology consultation. - Post-obstructive pneumonia Dr. Philly perry is following infection disease consultation. Status post treatment with antibiotics. - Advanced non-small cell lung CA, Dr. Scanlon is following in oncology consultation. - Acute respiratory failure secondary to above. is following in pulmonology consultation. - Nonocclusive deep venous thrombosis bilateral upper extremities. Continue Eliquis. - Acute on chronic diastolic congestive heart failure, continue gentle diuresis , continue to monitor electrolytes. - h/o fungal pneumonia, on maintenance voriconazole - CAD, continue aspirin. - Hyperlipidemia, continue statin - Hypothyroidism, continue levothyroxine. Further recommendations based on clinical course. Plan of care discussed with Dr. Lincoln. Problems: Exam/Review of Systems Vital Signs Vitals Vital Signs Date Time Temp Pulse Resp B/P Pulse Ox O2 Delivery O2 Flow Rate FiO2 03/02/17 16:15 102 03/02/17 15:35 98.0 16 136/90 99 03/02/17 14:51 4.0 03/02/17 14:51 Nasal Cannula 03/02/17 03:17 50 Intake and Output 03/01/17 03/01/17 03/02/17 15:00 23:00 07:00 Intake Total 1090 ml 300 ml Output Total 450 ml Balance 640 ml 300 ml Exam Constitutional: alert Neck: supple Respiratory: diminished breath sounds Cardiovascular: nl pulses Gastrointestinal: non-tender, soft Extremities: edema Results Result Diagram: 03/01/17 0649 03/02/17 0548 Results 24 hrs Laboratory Tests Test 03/02/17 05:48 03/02/17 12:02 Blood Urea Nitrogen 16 Creatinine 1.46 H Vancomycin Level Trough 11.7 Medications Medications Current Medications Atorvastatin Calcium (Lipitor) 20 mg QHS PO Last administered on 03/01/17t 21: 39; Admin Dose 20 MG; Start 01/31/17 at 21:00 Escitalopram Oxalate (Lexapro) 10 mg DAILY PO Last administered on 03/02/17 08 :23; Admin Dose 10 MG; Start 02/01/17 at 09:00 Ondansetron HCl (Zofran Inj) 4 mg Q6 PRN IV NAUSEA Last administered on 15:19; Admin Dose 4 MG; Start 01/31/17 at 19:30 Morphine Sulfate (Ms Contin (Er)) 15 mg BID PO Last administered on 03/02/17 08:23; Admin Dose 15 MG; Start 01/31/17 at 23:00 Nitroglycerin (Nitroglycerin (Sl Tab) 0.4 Mg) 1 tab Q5M PRN SL ANGINA Last administered on 02/19/17 19:48; Admin Dose 1 TAB; Start 02/01/17 at 11:30 Pantoprazole (Protonix Tab) 40 mg DAILY@06 PO Last administered on 03/02/17 06 :03; Admin Dose 40 MG; Start 02/02/17 at 06:00 Voriconazole (Vfend) 200 mg BID PO Last administered on 03/02/17 08:22; Admin Dose 200 MG; Start 02/01/17 at 21:00 Senna (Senokot) 1 tab DAILY PRN PO CONSTIPATION Last administered on 02/03/17 20:36; Admin Dose 1 TAB; Start 02/02/17 at 16:00 Lactulose (Enulose) 20 gm DAILY PRN PO CONSTIPATION; Start 02/02/17 at 16:00 IV Flush (NS 10 ml) 10 ml PRN PRN IV IV PROTOCOL; Start 02/06/17 at 20:00 Oxymetazoline HCl (Afrin [place]) 2 spray BID NASAL Last administered on 08:24; Admin Dose 2 SPRAY; Start 02/07/17 at 15:00 Apixaban (Eliquis) 5 mg BID PO Last administered on 03/02/17 08:22; Admin Dose 5 MG; Start 02/21/17 at 09:00 Furosemide (Lasix) 40 mg DAILY PO Last administered on 03/02/17 08:23; Admin Dose 40 MG; Start 02/19/17 at 09:00 Potassium Chloride 20 meq 20 meq BID PO Last administered on 03/02/17 08:23; Admin Dose 20 MEQ; Start 02/27/17 at 21:00 Vancomycin HCl (Vancocin) 250 ml @ 125 mls/hr Q24H IVPB Last administered on 03/02/17 13:40; Admin Dose 125 MLS/HR; Start 02/28/17 at 13:00 Morphine Sulfate (morphine) 2 mg Q4H PRN IV SEVERE PAIN LEVEL 7-10 Last administered on 03/02/17 12:32; Admin Dose 2 MG; Start 02/28/17 at 19:00 LUBA EARLY Mar 02, 2017 18:38
--- NOTE | 2017-03-02 19:13 | CONS ---
Date/Time of Note Date/Time of Note DATE: 03/02/17 TIME: 19:11 Assessment/Plan Assessment/Plan Chief Complaint/Hosp Course IMPRESSION: 1. Chest pain. Assess for acute coronary syndrome in a patient with lung cancer, undergoing chemotherapy, likely secondary to lung cancer.-negative trop x3/no recurrent chest pain at this time 2. Abnormal electrocardiogram with nonspecific ST and T-wave abnormalities, assess for acute coronary syndrome. 3. Bradycardia, transient while on beta matthew. 4. Hypotension-improved 5. Shortness of [id number] PNA 6. Lung cancer with ongoing chemotherapy. 7. Leukocytosis. 8. Anemia. 9. Thrombocytopenia-stable 10.DVT-RUE on eliquis 11. Renal failure-ongoing slight worsening Recc: -Tel -Continue eliquis -Continue abx;'s and f/u cx data -Continue statin -pulmonary toliet -Follow BP closely off of antihypertenives -Continue lasix daily PO and follow volume status closely -Continue marinol for decreased appetite Problems: Consultation Date/Type/Reason Admit Date/Time Jan 31, 2017 at 18:59 Initial Consult Date 02/01/17 Type of Consultation: cardiology Reason for Consultation Chest pain Referring Provider: MARYAM FARMER MD Exam/Review of Systems Vital Signs Vitals Vital Signs Date Time Temp Pulse Resp B/P Pulse Ox O2 Delivery O2 Flow Rate FiO2 03/02/17 16:15 102 03/02/17 15:35 98.0 16 136/90 99 03/02/17 14:51 4.0 03/02/17 14:51 Nasal Cannula 03/02/17 03:17 50 Intake and Output 03/01/17 03/01/17 03/02/17 15:00 23:00 07:00 Intake Total 1090 ml 300 ml Output Total 450 ml Balance 640 ml 300 ml Exam Review of Systems: CONSTITUTIONAL: No fevers, chills. PULMONARY: No sob CARDIOVASCULAR: No chest pain/palpitations GASTROINTESTINAL: No nausea/vomiting. GENITOURINARY: No hematuria/dysuria. MUSCULOSKELETAL: No myagias/arthalgias. PSYCHIATRIC: The patient denies depression. NEUROLOGIC: No weakness Constitutional: alert, oriented Psych: no complaints Head: normocephalic ENMT: mucosa pink and moist Neck: jvd (9 cm water) Respiratory: other (diffuse rhoncherous sounds) Cardiovascular: regular rate and rhythm Gastrointestinal: non-tender, soft Musculoskeletal: muscle tone (nomal) Extremities: edema (none) Neurological: other (No focal deficits) Results Result Diagram: 03/01/17 0649 03/02/17 0548 Results 24 hrs Laboratory Tests Test 03/02/17 05:48 03/02/17 12:02 Blood Urea Nitrogen 16 Creatinine 1.46 H Vancomycin Level Trough 11.7 Medications Medications Current Medications Atorvastatin Calcium (Lipitor) 20 mg QHS PO Last administered on 03/01/17 21: 39; Admin Dose 20 MG; Start 01/31/17 at 21:00 Escitalopram Oxalate (Lexapro) 10 mg DAILY PO Last administered on 03/02/17 08 :23; Admin Dose 10 MG; Start 02/01/17 at 09:00 Ondansetron HCl (Zofran Inj) 4 mg Q6 PRN IV NAUSEA Last administered on 15:19; Admin Dose 4 MG; Start 01/31/17 at 19:30 Morphine Sulfate (Ms Contin (Er)) 15 mg BID PO Last administered on 03/02/17 08:23; Admin Dose 15 MG; Start 01/31/17 at 23:00 Nitroglycerin (Nitroglycerin (Sl Tab) 0.4 Mg) 1 tab Q5M PRN SL ANGINA Last administered on 02/19/17 19:48; Admin Dose 1 TAB; Start 02/01/17 at 11:30 Pantoprazole (Protonix Tab) 40 mg DAILY@06 PO Last administered on 03/02/17 06 :03; Admin Dose 40 MG; Start 02/02/17 at 06:00 Voriconazole (Vfend) 200 mg BID PO Last administered on 03/02/17 08:22; Admin Dose 200 MG; Start 02/01/17 at 21:00 Senna (Senokot) 1 tab DAILY PRN PO CONSTIPATION Last administered on 02/03/17 20:36; Admin Dose 1 TAB; Start 02/02/17 at 16:00 Lactulose (Enulose) 20 gm DAILY PRN PO CONSTIPATION; Start 02/02/17 at 16:00 IV Flush (NS 10 ml) 10 ml PRN PRN IV IV PROTOCOL; Start 02/06/17 at 20:00 Oxymetazoline HCl (Afrin [place]) 2 spray BID NASAL Last administered on 08:24; Admin Dose 2 SPRAY; Start 02/07/17 at 15:00 Apixaban (Eliquis) 5 mg BID PO Last administered on 03/02/17 08:22; Admin Dose 5 MG; Start 02/21/17 at 09:00 Furosemide (Lasix) 40 mg DAILY PO Last administered on 03/02/17 08:23; Admin Dose 40 MG; Start 02/19/17 at 09:00 Potassium Chloride 20 meq 20 meq BID PO Last administered on 03/02/17 08:23; Admin Dose 20 MEQ; Start 02/27/17 at 21:00 Vancomycin HCl (Vancocin) 250 ml @ 125 mls/hr Q24H IVPB Last administered on 03/02/17 13:40; Admin Dose 125 MLS/HR; Start 02/28/17 at 13:00 Morphine Sulfate (morphine) 2 mg Q4H PRN IV SEVERE PAIN LEVEL 7-10 Last administered on 03/02/17 12:32; Admin Dose 2 MG; Start 02/28/17 at 19:00 MARIAA ÁLVAREZ Mar 02, 2017 19:13
[2017-03-02] MEDS: ATORVASTATIN 20 MG TAB PO SCH (21:14)
[2017-03-03] VITALS (14 sets, daily range): BP systolic 114–147; BP diastolic 56–77; PULSE 84–108; RESP 16–20
[2017-03-03] MEDS: LEVALBUTEROL (NEB) 0.63 MG/3 ML AMP HHN SCH ×4 (01:01→19:54)
[2017-03-03] MEDS: PANTOPRAZOLE (EC) 40 MG TAB PO SCH (05:47)
[2017-03-03 07:20] LABS: ABNORMAL IP MESSAGE 1; BASOPHILS % 0.7 % (0.0-2.0); EOSINOPHILS # 0.1 10^3/ul (0.0-0.5); EOSINOPHILS % 3.2 % (0.0-7.0); HEMATOCRIT 28.5 % (42.0-52.0); HEMOGLOBIN 8.8 g/dl (14.0-18.0); LYMPHOCYTES # 0.4 10^3/ul (0.8-2.9); LYMPHOCYTES % 10.7 % (15.0-51.0); MEAN CORPUSCULAR HEMOGLOBIN 32.6 pg (29.0-33.0); MEAN CORPUSCULAR HGB CONC 30.9 g/dl (32.0-37.0); MEAN CORPUSCULAR VOLUME 105.6 fl (82.0-101.0); MONOCYTE # 0.5 10^3/ul (0.3-0.9); MONOCYTES % 12.4 % (0.0-11.0); NEUTROPHILS % 72.8 % (39.0-77.0); PLATELET COUNT 122 10^3/UL (140-415); POSITIVE DIFF @See below; RED CELL DISTRIBUTION WIDTH 14.4 % (11.5-14.5); WHITE BLOOD COUNT 4.1 10^3/ul (4.8-10.8)
[2017-03-03 07:46] LABS: ALBUMIN 3.1 g/dl (3.3-4.9); ALBUMIN/GLOBULIN RATIO 1.06; BILIRUBIN,INDIRECT 0.2 mg/dl (0-1.1); BILIRUBIN,TOTAL 0.2 mg/dl (0.2-1.3); CALCIUM 8.8 mg/dl (8.4-10.2); CREATININE 1.44 mg/dl (0.61-1.24); POTASSIUM 3.6 mmol/L (3.5-5.1)
[2017-03-03] MEDS: morphine (ER) 15 MG TAB PO SCH ×2 (09:08→20:49)
[2017-03-03] MEDS: DRONABINOL 2.5 MG CAP PO SCH ×3 (09:10→16:54)
[2017-03-03] MEDS: APIXABAN 5 MG TABLET PO SCH ×2 (09:10→20:49)
[2017-03-03] MEDS: ESCITALOPRAM 10 MG TAB PO SCH (09:11)
[2017-03-03] MEDS: FUROSEMIDE 40 MG TAB PO SCH (09:11)
[2017-03-03] MEDS: SENNA TAB PO PRN (09:11)
[2017-03-03] MEDS: OXYMETAZOLINE 0.05% 15 ML NAS SPRAY NASAL SCH ×2 (09:11→20:49)
[2017-03-03] MEDS: POTASSIUM CHLORIDE (SR) 20 MEQ TAB PO SCH ×2 (09:11→20:49)
[2017-03-03] MEDS: LEVOTHYROXINE 75 MCG TAB PO SCH (09:11)
[2017-03-03] MEDS: VORICONAZOLE 200 MG TAB PO SCH ×2 (09:11→20:52)
--- NOTE | 2017-03-03 10:53 | PN ---
Date/Time of Note Date/Time of Note DATE: 03/03/17 TIME: 10:14 Assessment/Plan VTE Prophylaxis VTE Prophylaxis Intervention: other Lines/Catheters IV Catheter Type (from [facility]): PICC Line Urinary Cath still in place: No Assessment/Plan Chief Complaint/Hosp Course - Problems: Assessment/Plan - Paronychia, MSSA, cont abx per ID. - LIZ- Cr 1.44 - Dr. Irving is following in nephrology consultation. - Post-obstructive pneumonia - per infection disease consultation. Status post treatment with antibiotics. - LUE- DVT - on Eliquis, cont to monitor - Advanced non-small cell lung CA, - per oncology consultation. - Acute respiratory failure secondary to above. - is following in pulmonology consultation. - Nonocclusive deep venous thrombosis bilateral upper extremities. Continue Eliquis. - Acute on chronic diastolic congestive heart failure, continue gentle diuresis , continue to monitor electrolytes. - h/o fungal pneumonia, on maintenance voriconazole - CAD, continue aspirin. - Hyperlipidemia, continue statin - Hypothyroidism, continue levothyroxine. - Anemia-monitor CBC, s/s of bleeding - stool OB Further recommendations based on clinical course. Plan of care discussed with Dr. Lincoln. Subjective 24 Hr Interval Summary Free Text/Dictation remains on supplement oxygen, shortness of breath on exertion, afebrile- staff. chemo x 2 weeks ago.no new events reported overnight. Constitutional: requiring O2 Respiratory: shortness of breath Cardiovascular: no complaints Gastrointestinal: no complaints Genitourinary: no complaints Musculoskeletal: no complaints Exam/Review of Systems Vital Signs Vitals Vital Signs Date Time Temp Pulse Resp B/P Pulse Ox O2 Delivery O2 Flow Rate FiO2 03/03/17 08:26 88 18 95 Nasal Cannula 4.0 03/03/17 07:59 97.9 120/67 03/03/17 02:58 50 Intake and Output 03/02/17 03/02/17 03/03/17 15:00 23:00 07:00 Intake Total 790 ml Balance 790 ml Exam Constitutional: alert, obese, well developed Respiratory: diminished breath sounds Cardiovascular: irregular rhythm, nl pulses, other (AFIB , HR 90) Gastrointestinal: non-tender, soft Musculoskeletal: nl extremities to inspection Extremities: normal pulses Neurological: nl speech Results Result Diagram: 03/03/17 0700 03/03/17 0652 Results 24 hrs Laboratory Tests Test 03/02/17 12:02 03/03/17 06:52 03/03/17 07:00 Vancomycin Level Trough 11.7 Sodium Level 138 Potassium Level 3.6 Chloride Level 98 Carbon Dioxide Level 37 H Anion Gap 7 L Blood Urea Nitrogen 15 Creatinine 1.44 H Glucose Level 88 Calcium Level 8.8 Total Bilirubin 0.2 Direct Bilirubin 0.00 Indirect Bilirubin 0.2 Aspartate Amino Transf (AST/SGOT) 29 Alanine Aminotransferase (ALT/SGPT) 35 Alkaline Phosphatase 91 Total Protein 6.0 L Albumin 3.1 L Globulin 2.90 Albumin/Globulin Ratio 1.06 White Blood Count 4.1 L Red Blood Count 2.70 L Hemoglobin 8.8 L Hematocrit 28.5 L Mean Corpuscular Volume 105.6 H Mean Corpuscular Hemoglobin 32.6 Mean Corpuscular Hemoglobin Concent 30.9 L Red Cell Distribution Width 14.4 Platelet Count 122 L Mean Platelet Volume 11.0 H Neutrophils % 72.8 Lymphocytes % 10.7 L Monocytes % 12.4 H Eosinophils % 3.2 Basophils % 0.7 Nucleated Red Blood Cells % 0.0 Neutrophils # 3.0 Lymphocytes # 0.4 L Monocytes # 0.5 Eosinophils # 0.1 Basophils # 0.0 Nucleated Red Blood Cells # 0.0 Medications Medications Current Medications Atorvastatin Calcium (Lipitor) 20 mg QHS PO Last administered on 03/02/17 21: 14; Admin Dose 20 MG; Start 01/31/17 at 21:00 Escitalopram Oxalate (Lexapro) 10 mg DAILY PO Last administered on 03/03/17 09 :11; Admin Dose 10 MG; Start 02/01/17 at 09:00 Ondansetron HCl (Zofran Inj) 4 mg Q6 PRN IV NAUSEA Last administered on 15:19; Admin Dose 4 MG; Start 01/31/17 at 19:30 Morphine Sulfate (Ms Contin (Er)) 15 mg BID PO Last administered on 03/03/17 09:08; Admin Dose 15 MG; Start 01/31/17 at 23:00 Nitroglycerin (Nitroglycerin (Sl Tab) 0.4 Mg) 1 tab Q5M PRN SL ANGINA Last administered on 02/19/17 19:48; Admin Dose 1 TAB; Start 02/01/17 at 11:30 Pantoprazole (Protonix Tab) 40 mg DAILY@06 PO Last administered on 03/03/17 05 :47; Admin Dose 40 MG; Start 02/02/17 at 06:00 Voriconazole (Vfend) 200 mg BID PO Last administered on 03/03/17 09:11; Admin Dose 200 MG; Start 02/01/17 at 21:00 Senna (Senokot) 1 tab DAILY PRN PO CONSTIPATION Last administered on 03/03/17 09:11; Admin Dose 1 TAB; Start 02/02/17 at 16:00 Lactulose (Enulose) 20 gm DAILY PRN PO CONSTIPATION; Start 02/02/17 at 16:00 IV Flush (NS 10 ml) 10 ml PRN PRN IV IV PROTOCOL; Start 02/06/17 at 20:00 Oxymetazoline HCl (Afrin [place]) 2 spray BID NASAL Last administered on 09:11; Admin Dose 2 SPRAY; Start 02/07/17 at 15:00 Apixaban (Eliquis) 5 mg BID PO Last administered on 03/03/17 09:10; Admin Dose 5 MG; Start 02/21/17 at 09:00 Furosemide (Lasix) 40 mg DAILY PO Last administered on 03/03/17 09:11; Admin Dose 40 MG; Start 02/19/17 at 09:00 Potassium Chloride 20 meq 20 meq BID PO Last administered on 03/03/17 09:11; Admin Dose 20 MEQ; Start 02/27/17 at 21:00 Vancomycin HCl (Vancocin) 250 ml @ 125 mls/hr Q24H IVPB Last administered on 03/02/17 13:40; Admin Dose 125 MLS/HR; Start 02/28/17 at 13:00 Morphine Sulfate (morphine) 2 mg Q4H PRN IV SEVERE PAIN LEVEL 7-10 Last administered on 03/02/17 23:51; Admin Dose 2 MG; Start 02/28/17 at 19:00 TRAMAINE ELLSWORTH Mar 03, 2017 10:24
[2017-03-03] MEDS: VANCOMYCIN 1 GM in NS 250 ML IVPB SCH (12:18)
[2017-03-03] MEDS ORDERED: GUAIFENESIN LA 600 MG TABSR PO ONE (13:30)
--- NOTE | 2017-03-03 14:27 | CONS ---
Date/Time of Note Date/Time of Note DATE: 03/03/17 TIME: 14:25 Assessment/Plan Assessment/Plan Chief Complaint/Hosp Course - h/o sepsis due to recurrent pneumonia, and to a lessor degree due to paronychia. 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 Aspergillus antibody was >1:64 but aspergillus antigen in serum by EIA was negative during his last admission. - macrocytic anemia - thrombocytopenia - h/o DVT of b/l UEs - b/l knee pain due to DJD - h/o post-obstructive pneumonia - h/o HTN, CAD, hyperlipidemia - h/o paroxysmal A fib - h/o hypothyroidism with elevated TSH level - HIV negative in 2013 - nonocclusive thrombus around the PICC catheter within the left brachial vein, axillary vein and subclavian vein per doppler 02/13/2017 recommendations: - change IV vancomycin for paronychia (restart 02/27/2017-) to doxycycline; I recommend it until 03/09/2017 - I recommend hand or plastic surgery consult re. total or near detachment of multiple nail - I instructed Pt to stop peeling the nail and pressing the nail bed. Hand hygiene discussed with Pt. - continue using Hibiclens for body and hand wash - continue voriconazole for chronic suppression of aspergillus given his immunocompromised state; monitor LFTs weekly, last checked on 03/03/2017 management d/w Pt Problems: Consultation Date/Type/Reason Admit Date/Time Jan 31, 2017 at 18:59 Initial Consult Date 02/14/17 Type of Consultation: ID Referring Provider: MARYAM FARMER MD 24 HR Interval Summary Constitutional: no complaints Detailed Summary Eyes: no complaints ENT: no complaints Respiratory: cough, shortness of breath, sputum, No pleuritic pain Cardiovascular: no complaints Gastrointestinal: no complaints Genitourinary: no complaints Musculoskeletal: no complaints Skin: other (denies pain from nailbed), skin lesions (detachment of fingernail) Neurologic: no complaints Exam/Review of Systems Vital Signs Vitals Vital Signs Date Time Temp Pulse Resp B/P Pulse Ox O2 Delivery O2 Flow Rate FiO2 03/03/17 12:46 96 4.0 03/03/17 12:45 94 20 Nasal Cannula 03/03/17 11:48 98.7 119/72 03/03/17 02:58 50 Intake and Output 03/02/17 03/02/17 03/03/17 15:00 23:00 07:00 Intake Total 790 ml Balance 790 ml Exam Constitutional: alert, frail, obese, oriented Psych: nl mood/affect, no complaints Head: normocephalic, other (alopecia) Eyes: nl conjunctiva, nl lids ENMT: nl external ears & nose, nl nasal mucosa & septum Neck: supple Respiratory: crackles/rales Cardiovascular: nl pulses, regular rate and rhythm Gastrointestinal: non-tender, soft Musculoskeletal: nl extremities to inspection Extremities: No edema Neurological: HEPATOLOGY PHYSICIAN II-XII intact, nl mental status, nl speech Skin: other (fingertipe are covered with bandaid) Results Result Diagram: 03/03/17 0700 03/03/17 0652 Results 24 hrs Laboratory Tests Test 03/03/17 06:52 03/03/17 07:00 Sodium Level 138 Potassium Level 3.6 Chloride Level 98 Carbon Dioxide Level 37 H Anion Gap 7 L Blood Urea Nitrogen 15 Creatinine 1.44 H Glucose Level 88 Calcium Level 8.8 Total Bilirubin 0.2 Direct Bilirubin 0.00 Indirect Bilirubin 0.2 Aspartate Amino Transf (AST/SGOT) 29 Alanine Aminotransferase (ALT/SGPT) 35 Alkaline Phosphatase 91 Total Protein 6.0 L Albumin 3.1 L Globulin 2.90 Albumin/Globulin Ratio 1.06 White Blood Count 4.1 L Red Blood Count 2.70 L Hemoglobin 8.8 L Hematocrit 28.5 L Mean Corpuscular Volume 105.6 H Mean Corpuscular Hemoglobin 32.6 Mean Corpuscular Hemoglobin Concent 30.9 L Red Cell Distribution Width 14.4 Platelet Count 122 L Mean Platelet Volume 11.0 H Neutrophils % 72.8 Lymphocytes % 10.7 L Monocytes % 12.4 H Eosinophils % 3.2 Basophils % 0.7 Nucleated Red Blood Cells % 0.0 Neutrophils # 3.0 Lymphocytes # 0.4 L Monocytes # 0.5 Eosinophils # 0.1 Basophils # 0.0 Nucleated Red Blood Cells # 0.0 Medications Medications Current Medications Atorvastatin Calcium (Lipitor) 20 mg QHS PO Last administered on 03/02/17 21: 14; Admin Dose 20 MG; Start 01/31/17 at 21:00 Escitalopram Oxalate (Lexapro) 10 mg DAILY PO Last administered on 03/03/17 09 :11; Admin Dose 10 MG; Start 02/01/17 at 09:00 Ondansetron HCl (Zofran Inj) 4 mg Q6 PRN IV NAUSEA Last administered on 15:19; Admin Dose 4 MG; Start 01/31/17 at 19:30 Morphine Sulfate (Ms Contin (Er)) 15 mg BID PO Last administered on 03/03/17 09:08; Admin Dose 15 MG; Start 01/31/17 at 23:00 Nitroglycerin (Nitroglycerin (Sl Tab) 0.4 Mg) 1 tab Q5M PRN SL ANGINA Last administered on 02/19/17 19:48; Admin Dose 1 TAB; Start 02/01/17 at 11:30 Pantoprazole (Protonix Tab) 40 mg DAILY@06 PO Last administered on 03/03/17 05 :47; Admin Dose 40 MG; Start 02/02/17 at 06:00 Voriconazole (Vfend) 200 mg BID PO Last administered on 03/03/17 09:11; Admin Dose 200 MG; Start 02/01/17 at 21:00 Senna (Senokot) 1 tab DAILY PRN PO CONSTIPATION Last administered on 03/03/17 09:11; Admin Dose 1 TAB; Start 02/02/17 at 16:00 Lactulose (Enulose) 20 gm DAILY PRN PO CONSTIPATION; Start 02/02/17 at 16:00 IV Flush (NS 10 ml) 10 ml PRN PRN IV IV PROTOCOL; Start 02/06/17 at 20:00 Oxymetazoline HCl (Afrin [place]) 2 spray BID NASAL Last administered on 09:11; Admin Dose 2 SPRAY; Start 02/07/17 at 15:00 Apixaban (Eliquis) 5 mg BID PO Last administered on 03/03/17 09:10; Admin Dose 5 MG; Start 02/21/17 at 09:00 Furosemide (Lasix) 40 mg DAILY PO Last administered on 03/03/17 09:11; Admin Dose 40 MG; Start 02/19/17 at 09:00 Potassium Chloride 20 meq 20 meq BID PO Last administered on 03/03/17 09:11; Admin Dose 20 MEQ; Start 02/27/17 at 21:00 Vancomycin HCl (Vancocin) 250 ml @ 125 mls/hr Q24H IVPB Last administered on 03/03/17 12:18; Admin Dose 125 MLS/HR; Start 02/28/17 at 13:00 Morphine Sulfate (morphine) 2 mg Q4H PRN IV SEVERE PAIN LEVEL 7-10 Last administered on 03/02/17 23:51; Admin Dose 2 MG; Start 02/28/17 at 19:00 Guaifenesin (Mucinex) 600 mg BID PO ; Start 03/03/17 at 23:00 LUKE CAAL M.D. Mar 03, 2017 14:27
--- NOTE | 2017-03-03 14:58 | CONS ---
Date/Time of Note Date/Time of Note DATE: 03/03/17 TIME: 14:54 Assessment/Plan Assessment/Plan Additional Assessment/Plan Pleuritic Chest pain. Lung cancer s/p chemo Abnormal electrocardiogram with nonspecific ST and T-wave Post obstructive Pneumonia Anemia. Thrombocytopenia DVT-RUE on eliquis Renal failure Continue Bipap at night Continue Lasix Keep mag > 2 and Potassium > 4 Continue Eliquis Continue Antibiotics Consultation Date/Type/Reason Admit Date/Time Jan 31, 2017 at 18:59 Constitutional: requiring O2 Eyes: no complaints ENT: no complaints Respiratory: shortness of breath Cardiovascular: no complaints Gastrointestinal: no complaints Genitourinary: no complaints Musculoskeletal: no complaints Skin: other (denies pain from fingertips), skin lesions (nail is peeling from L 3rd finger; also feel that the other nail is detaching) Neurologic: no complaints Endocrine: no complaints Psychological: no complaints Past Medical History Medical History: other (lung CA, 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) Social History Alcohol Use: none Smoking Status: Former smoker Exam/Review of Systems Vital Signs Vitals Vital Signs Date Time Temp Pulse Resp B/P Pulse Ox O2 Delivery O2 Flow Rate FiO2 03/03/17 12:46 96 4.0 03/03/17 12:45 94 20 Nasal Cannula 03/03/17 11:48 98.7 119/72 03/03/17 02:58 50 Intake and Output 03/02/17 03/02/17 03/03/17 15:00 23:00 07:00 Intake Total 790 ml Balance 790 ml Exam Constitutional: alert, oriented, well developed Head: atraumatic, normocephalic Neck: non-tender, supple Respiratory: crackles/rales, diminished breath sounds Cardiovascular: regular rate and rhythm Gastrointestinal: nl liver, spleen, non-tender, soft Extremities: normal pulses Results Result Diagram: 03/03/17 0700 03/03/17 0652 Results 24 hrs Laboratory Tests Test 03/03/17 06:52 03/03/17 07:00 Sodium Level 138 Potassium Level 3.6 Chloride Level 98 Carbon Dioxide Level 37 H Anion Gap 7 L Blood Urea Nitrogen 15 Creatinine 1.44 H Glucose Level 88 Calcium Level 8.8 Total Bilirubin 0.2 Direct Bilirubin 0.00 Indirect Bilirubin 0.2 Aspartate Amino Transf (AST/SGOT) 29 Alanine Aminotransferase (ALT/SGPT) 35 Alkaline Phosphatase 91 Total Protein 6.0 L Albumin 3.1 L Globulin 2.90 Albumin/Globulin Ratio 1.06 White Blood Count 4.1 L Red Blood Count 2.70 L Hemoglobin 8.8 L Hematocrit 28.5 L Mean Corpuscular Volume 105.6 H Mean Corpuscular Hemoglobin 32.6 Mean Corpuscular Hemoglobin Concent 30.9 L Red Cell Distribution Width 14.4 Platelet Count 122 L Mean Platelet Volume 11.0 H Neutrophils % 72.8 Lymphocytes % 10.7 L Monocytes % 12.4 H Eosinophils % 3.2 Basophils % 0.7 Nucleated Red Blood Cells % 0.0 Neutrophils # 3.0 Lymphocytes # 0.4 L Monocytes # 0.5 Eosinophils # 0.1 Basophils # 0.0 Nucleated Red Blood Cells # 0.0 Medications Medications Current Medications Atorvastatin Calcium (Lipitor) 20 mg QHS PO Last administered on 03/02/17 21: 14; Admin Dose 20 MG; Start 01/31/17 at 21:00 Escitalopram Oxalate (Lexapro) 10 mg DAILY PO Last administered on 03/03/17 09 :11; Admin Dose 10 MG; Start 02/01/17 at 09:00 Ondansetron HCl (Zofran Inj) 4 mg Q6 PRN IV NAUSEA Last administered on 15:19; Admin Dose 4 MG; Start 01/31/17 at 19:30 Morphine Sulfate (Ms Contin (Er)) 15 mg BID PO Last administered on 03/03/17 09:08; Admin Dose 15 MG; Start 01/31/17 at 23:00 Nitroglycerin (Nitroglycerin (Sl Tab) 0.4 Mg) 1 tab Q5M PRN SL ANGINA Last administered on 02/19/17 19:48; Admin Dose 1 TAB; Start 02/01/17 at 11:30 Pantoprazole (Protonix Tab) 40 mg DAILY@06 PO Last administered on 03/03/17 05 :47; Admin Dose 40 MG; Start 02/02/17 at 06:00 Voriconazole (Vfend) 200 mg BID PO Last administered on 03/03/17 09:11; Admin Dose 200 MG; Start 02/01/17 at 21:00 Senna (Senokot) 1 tab DAILY PRN PO CONSTIPATION Last administered on 03/03/17 09:11; Admin Dose 1 TAB; Start 02/02/17 at 16:00 Lactulose (Enulose) 20 gm DAILY PRN PO CONSTIPATION; Start 02/02/17 at 16:00 IV Flush (NS 10 ml) 10 ml PRN PRN IV IV PROTOCOL; Start 02/06/17 at 20:00 Oxymetazoline HCl (Afrin [place]) 2 spray BID NASAL Last administered on 09:11; Admin Dose 2 SPRAY; Start 02/07/17 at 15:00 Apixaban (Eliquis) 5 mg BID PO Last administered on 03/03/17 09:10; Admin Dose 5 MG; Start 02/21/17 at 09:00 Furosemide (Lasix) 40 mg DAILY PO Last administered on 03/03/17 09:11; Admin Dose 40 MG; Start 02/19/17 at 09:00 Potassium Chloride 20 meq 20 meq BID PO Last administered on 03/03/17 09:11; Admin Dose 20 MEQ; Start 02/27/17 at 21:00 Vancomycin HCl (Vancocin) 250 ml @ 125 mls/hr Q24H IVPB Last administered on 03/03/17 12:18; Admin Dose 125 MLS/HR; Start 02/28/17 at 13:00 Morphine Sulfate (morphine) 2 mg Q4H PRN IV SEVERE PAIN LEVEL 7-10 Last administered on 03/02/17 23:51; Admin Dose 2 MG; Start 02/28/17 at 19:00 Guaifenesin (Mucinex) 600 mg BID PO ; Start 03/03/17 at 23:00 ANDRÉS CAVAZOS M.D. Mar 03, 2017 14:58
--- NOTE | 2017-03-03 15:29 | CONS ---
Date/Time of Note Date/Time of Note DATE: 03/03/17 TIME: 15:29 Assessment/Plan Assessment/Plan Additional Assessment/Plan 1. Anasarca- Fluid overload multifactorial s/p Diuresis with IV lasix and IV albumin 2. acute kidney injury 3. post obstructive PNA 4. Advanced non small lung CA 5. acute respiratory failure 6. Right subclavian Deep venous thrombosis 7. acute on chronic diastolic heart failure 8. h/o fungal pneumonia 9. Hyperlipidemia 10. hypothyroidism 11. Metabolic alkalosis Plan: s/p IV albumin with Lasix diureisis-lasix 40mg pO daily,Cr 1.44 today continue PO KCl 20mEQ BID plan is to continue current Lasix dose and monitor electrolytes IV abx as per ID and PMD, renally dose all abx Monitor Electroltyes and replace as needed. Will follow up Consultation Date/Type/Reason Admit Date/Time Jan 31, 2017 at 18:59 Initial Consult Date 02/14/17 Type of Consultation: NEPHROLOGY Referring Provider: MARYAM FARMER MD Exam/Review of Systems Vital Signs Vitals Vital Signs Date Time Temp Pulse Resp B/P Pulse Ox O2 Delivery O2 Flow Rate FiO2 03/03/17 12:46 96 4.0 03/03/17 12:45 94 20 Nasal Cannula 03/03/17 11:48 98.7 119/72 03/03/17 02:58 50 Intake and Output 03/02/17 03/02/17 03/03/17 15:00 23:00 07:00 Intake Total 790 ml Balance 790 ml Exam Constitutional: alert Respiratory: clear to auscultation, diminished breath sounds, normal air movement Cardiovascular: nl pulses, regular rate and rhythm Gastrointestinal: non-tender, soft Musculoskeletal: , 1+ edema ) Neurological: SELF PAY SPECIALIST II-XII intact, nl mental status Results Result Diagram: 03/03/17 0700 03/03/17 0652 Results 24 hrs Laboratory Tests Test 03/03/17 06:52 03/03/17 07:00 Sodium Level 138 Potassium Level 3.6 Chloride Level 98 Carbon Dioxide Level 37 H Anion Gap 7 L Blood Urea Nitrogen 15 Creatinine 1.44 H Glucose Level 88 Calcium Level 8.8 Total Bilirubin 0.2 Direct Bilirubin 0.00 Indirect Bilirubin 0.2 Aspartate Amino Transf (AST/SGOT) 29 Alanine Aminotransferase (ALT/SGPT) 35 Alkaline Phosphatase 91 Total Protein 6.0 L Albumin 3.1 L Globulin 2.90 Albumin/Globulin Ratio 1.06 White Blood Count 4.1 L Red Blood Count 2.70 L Hemoglobin 8.8 L Hematocrit 28.5 L Mean Corpuscular Volume 105.6 H Mean Corpuscular Hemoglobin 32.6 Mean Corpuscular Hemoglobin Concent 30.9 L Red Cell Distribution Width 14.4 Platelet Count 122 L Mean Platelet Volume 11.0 H Neutrophils % 72.8 Lymphocytes % 10.7 L Monocytes % 12.4 H Eosinophils % 3.2 Basophils % 0.7 Nucleated Red Blood Cells % 0.0 Neutrophils # 3.0 Lymphocytes # 0.4 L Monocytes # 0.5 Eosinophils # 0.1 Basophils # 0.0 Nucleated Red Blood Cells # 0.0 Medications Medications Current Medications Atorvastatin Calcium (Lipitor) 20 mg QHS PO Last administered on 03/02/17 21: 14; Admin Dose 20 MG; Start 01/31/17 at 21:00 Escitalopram Oxalate (Lexapro) 10 mg DAILY PO Last administered on 03/03/17 09 :11; Admin Dose 10 MG; Start 02/01/17 at 09:00 Ondansetron HCl (Zofran Inj) 4 mg Q6 PRN IV NAUSEA Last administered on 15:19; Admin Dose 4 MG; Start 01/31/17 at 19:30 Morphine Sulfate (Ms Contin (Er)) 15 mg BID PO Last administered on 03/03/17 09:08; Admin Dose 15 MG; Start 01/31/17 at 23:00 Nitroglycerin (Nitroglycerin (Sl Tab) 0.4 Mg) 1 tab Q5M PRN SL ANGINA Last administered on 02/19/17 19:48; Admin Dose 1 TAB; Start 02/01/17 at 11:30 Pantoprazole (Protonix Tab) 40 mg DAILY@06 PO Last administered on 03/03/17 05 :47; Admin Dose 40 MG; Start 02/02/17 at 06:00 Voriconazole (Vfend) 200 mg BID PO Last administered on 03/03/17 09:11; Admin Dose 200 MG; Start 02/01/17 at 21:00 Senna (Senokot) 1 tab DAILY PRN PO CONSTIPATION Last administered on 03/03/17 09:11; Admin Dose 1 TAB; Start 02/02/17 at 16:00 Lactulose (Enulose) 20 gm DAILY PRN PO CONSTIPATION; Start 02/02/17 at 16:00 IV Flush (NS 10 ml) 10 ml PRN PRN IV IV PROTOCOL; Start 02/06/17 at 20:00 Oxymetazoline HCl (Afrin [place]) 2 spray BID NASAL Last administered on 09:11; Admin Dose 2 SPRAY; Start 02/07/17 at 15:00 Apixaban (Eliquis) 5 mg BID PO Last administered on 03/03/17 09:10; Admin Dose 5 MG; Start 02/21/17 at 09:00 Furosemide (Lasix) 40 mg DAILY PO Last administered on 03/03/17 09:11; Admin Dose 40 MG; Start 02/19/17 at 09:00 Potassium Chloride (Klor-Con 20) 20 meq BID PO Last administered on 03/03/17 09:11; Admin Dose 20 MEQ; Start 02/27/17 at 21:00 Morphine Sulfate (morphine) 2 mg Q4H PRN IV SEVERE PAIN LEVEL 7-10 Last administered on 03/02/17 23:51; Admin Dose 2 MG; Start 02/28/17 at 19:00 Guaifenesin (Mucinex) 600 mg BID PO ; Start 03/03/17 at 23:00 Doxycycline Hyclate (Vibramycin) 100 mg BID PO ; Start 03/03/17 at 21:00; Stop 03/09/17 at 23:59 MELODY JENSEN MD Mar 03, 2017 15:29
[2017-03-03] MEDS: DOXYCYCLINE 100 MG TAB PO SCH (20:49)
[2017-03-03] MEDS: ATORVASTATIN 20 MG TAB PO SCH (20:49)
[2017-03-03] MEDS: GUAIFENESIN LA 600 MG TABSR PO SCH (23:05)
[2017-03-04] VITALS (16 sets, daily range): BP systolic 105–128; BP diastolic 60–75; PULSE 85–101; RESP 18–20
[2017-03-04] MEDS: LEVALBUTEROL (NEB) 0.63 MG/3 ML AMP HHN SCH ×4 (02:45→20:27)
[2017-03-04] MEDS: PANTOPRAZOLE (EC) 40 MG TAB PO SCH (05:47)
[2017-03-04] MEDS: morphine 4 MG/ML VIAL IV PRN ×2 (07:39→12:16)
[2017-03-04] MEDS: ONDANSETRON 4 MG INJ IV PRN (07:39)
[2017-03-04] MEDS: DOXYCYCLINE 100 MG TAB PO SCH ×2 (08:08→20:44)
[2017-03-04] MEDS: POTASSIUM CHLORIDE (SR) 20 MEQ TAB PO SCH ×2 (08:08→20:44)
[2017-03-04] MEDS: ESCITALOPRAM 10 MG TAB PO SCH (08:08)
[2017-03-04] MEDS: OXYMETAZOLINE 0.05% 15 ML NAS SPRAY NASAL SCH ×2 (08:09→20:44)
[2017-03-04] MEDS: FUROSEMIDE 40 MG TAB PO SCH (08:09)
[2017-03-04] MEDS: GUAIFENESIN LA 600 MG TABSR PO SCH (08:09)
[2017-03-04] MEDS: DRONABINOL 2.5 MG CAP PO SCH ×3 (08:09→16:52)
[2017-03-04] MEDS: APIXABAN 5 MG TABLET PO SCH ×2 (08:09→20:46)
[2017-03-04] MEDS: LEVOTHYROXINE 75 MCG TAB PO SCH (08:09)
[2017-03-04] MEDS: morphine (ER) 15 MG TAB PO SCH ×2 (08:09→20:45)
[2017-03-04] MEDS: VORICONAZOLE 200 MG TAB PO SCH ×2 (08:15→20:44)
[2017-03-04 09:26] LABS: ABNORMAL IP MESSAGE 1; BASOPHILS % 0.7 % (0.0-2.0); EOSINOPHILS # 0.2 10^3/ul (0.0-0.5); EOSINOPHILS % 4.3 % (0.0-7.0); HEMATOCRIT 28.7 % (42.0-52.0); HEMOGLOBIN 8.7 g/dl (14.0-18.0); LYMPHOCYTES # 0.6 10^3/ul (0.8-2.9); LYMPHOCYTES % 12.8 % (15.0-51.0); MEAN CORPUSCULAR HEMOGLOBIN 31.5 pg (29.0-33.0); MEAN CORPUSCULAR HGB CONC 30.3 g/dl (32.0-37.0); MEAN PLATELET VOLUME 11.2 fl (7.4-10.4); MONOCYTE # 0.5 10^3/ul (0.3-0.9); MONOCYTES % 11.2 % (0.0-11.0); NEUTROPHIL # 3.1 10^3/ul (1.6-7.5); NEUTROPHILS % 70.8 % (39.0-77.0); PLATELET COUNT 124 10^3/UL (140-415); POSITIVE DIFF @See below; RED BLOOD COUNT 2.76 10^6/ul (4.70-6.10); RED CELL DISTRIBUTION WIDTH 14.4 % (11.5-14.5); WHITE BLOOD COUNT 4.4 10^3/ul (4.8-10.8)
[2017-03-04 09:48] LABS: CALCIUM 8.6 mg/dl (8.4-10.2); CREATININE 1.41 mg/dl (0.61-1.24); POTASSIUM 3.5 mmol/L (3.5-5.1)
--- NOTE | 2017-03-04 10:40 | PN ---
Date/Time of Note Date/Time of Note DATE: 03/04/17 TIME: 10:33 Assessment/Plan VTE Prophylaxis VTE Prophylaxis Intervention: other Lines/Catheters IV C[facility]ter Type (from [facility]): PICC Line Urinary Cath still in place: No Assessment/Plan Chief Complaint/Hosp Course - Problems: Assessment/Plan - Hemoptysis- decrease Eliquis to 2.5 mg - per pulmonary - monitor CBC - Paronychia, MSSA, cont abx per ID. - LIZ- Cr 1.44 - Dr. Irving is following in nephrology consultation. - Post-obstructive pneumonia - per infection disease consultation. Status post treatment with antibiotics. - LUE- DVT - on Eliquis, cont to monitor - Advanced non-small cell lung CA, - per oncology consultation. - Acute respiratory failure secondary to above. - is following in pulmonology consultation. - Nonocclusive deep venous thrombosis bilateral upper extremities. Continue Eliquis. - Acute on chronic diastolic congestive heart failure, continue gentle diuresis , continue to monitor electrolytes. - h/o fungal pneumonia, on maintenance voriconazole - CAD, continue aspirin. - Hyperlipidemia, continue statin - Hypothyroidism, continue levothyroxine. - Anemia-monitor CBC, s/s of bleeding - stool OB Further recommendations based on clinical course. Plan of care discussed with Dr. Lincoln. Subjective 24 Hr Interval Summary Free Text/Dictation Patient had hemoptysis x1 per staff, will lower Eliquis to 2.5 mg po remains on supplement oxygen, shortness of breath on exertion, afebrile- staff. chemo x 2 weeks ago.no new events reported overnight. Respiratory: cough, shortness of breath Cardiovascular: no complaints Gastrointestinal: no complaints Genitourinary: no complaints Musculoskeletal: no complaints Exam/Review of Systems Vital Signs Vitals Vital Signs Date Time Temp Pulse Resp B/P Pulse Ox O2 Delivery O2 Flow Rate FiO2 03/04/17 08:07 98.3 94 19 114/61 96 03/04/17 08:00 Nasal Cannula 4.0 03/04/17 05:11 50 Intake and Output 03/03/17 03/03/17 03/04/17 15:00 23:00 07:00 Intake Total 1150 ml 350 ml Output Total 500 ml Balance 650 ml 350 ml Exam Constitutional: alert, obese Psych: nl mood/affect Respiratory: diminished breath sounds Cardiovascular: nl pulses Gastrointestinal: non-tender, soft Musculoskeletal: nl extremities to inspection Extremities: edema Neurological: nl mental status, nl speech Results Result Diagram: 03/04/1740 03/04/17 0840 Results 24 hrs Laboratory Tests Test 03/04/17 08:40 White Blood Count 4.4 L Red Blood Count 2.76 L Hemoglobin 8.7 L Hematocrit 28.7 L Mean Corpuscular Volume 104.0 H Mean Corpuscular Hemoglobin 31.5 Mean Corpuscular Hemoglobin Concent 30.3 L Red Cell Distribution Width 14.4 Platelet Count 124 L Mean Platelet Volume 11.2 H Neutrophils % 70.8 Lymphocytes % 12.8 L Monocytes % 11.2 H Eosinophils % 4.3 Basophils % 0.7 Nucleated Red Blood Cells % 0.0 Neutrophils # 3.1 Lymphocytes # 0.6 L Monocytes # 0.5 Eosinophils # 0.2 Basophils # 0.0 Nucleated Red Blood Cells # 0.0 Sodium Level 139 Potassium Level 3.5 Chloride Level 98 Carbon Dioxide Level 34 H Anion Gap 11 Blood Urea Nitrogen 15 Creatinine 1.41 H Glucose Level 90 Calcium Level 8.6 Medications Medications Current Medications Atorvastatin Calcium (Lipitor) 20 mg QHS PO Last administered on 03/03/17 20: 49; Admin Dose 20 MG; Start 01/31/17 at 21:00 Escitalopram Oxalate (Lexapro) 10 mg DAILY PO Last administered on 03/04/17 08 :08; Admin Dose 10 MG; Start 02/01/17 at 09:00 Ondansetron HCl (Zofran Inj) 4 mg Q6 PRN IV NAUSEA Last administered on 07:39; Admin Dose 4 MG; Start 01/31/17 at 19:30 Morphine Sulfate (Ms Contin (Er)) 15 mg BID PO Last administered on 03/04/17 08:09; Admin Dose 15 MG; Start 01/31/17 at 23:00 Nitroglycerin (Nitroglycerin (Sl Tab) 0.4 Mg) 1 tab Q5M PRN SL ANGINA Last administered on 02/19/17 19:48; Admin Dose 1 TAB; Start 02/01/17 at 11:30 Pantoprazole (Protonix Tab) 40 mg DAILY@06 PO Last administered on 03/04/17 05 :47; Admin Dose 40 MG; Start 02/02/17 at 06:00 Voriconazole (Vfend) 200 mg BID PO Last administered on 03/04/17 08:15; Admin Dose 200 MG; Start 02/01/17 at 21:00 Senna (Senokot) 1 tab DAILY PRN PO CONSTIPATION Last administered on 03/03/17 09:11; Admin Dose 1 TAB; Start 02/02/17 at 16:00 Lactulose (Enulose) 20 gm DAILY PRN PO CONSTIPATION; Start 02/02/17 at 16:00 IV Flush (NS 10 ml) 10 ml PRN PRN IV IV PROTOCOL; Start 02/06/17 at 20:00 Oxymetazoline HCl (Afrin [place]) 2 spray BID NASAL Last administered on 08:09; Admin Dose 2 SPRAY; Start 02/07/17 at 15:00 Furosemide (Lasix) 40 mg DAILY PO Last administered on 03/04/17 08:09; Admin Dose 40 MG; Start 02/19/17 at 09:00 Potassium Chloride (Klor-Con 20) 20 meq BID PO Last administered on 03/04/17 08:08; Admin Dose 20 MEQ; Start 02/27/17 at 21:00 Morphine Sulfate (morphine) 2 mg Q4H PRN IV SEVERE PAIN LEVEL 7-10 Last administered on 03/04/17 07:39; Admin Dose 2 MG; Start 02/28/17 at 19:00 Doxycycline Hyclate (Vibramycin) 100 mg BID PO Last administered on 03/04/17 08:08; Admin Dose 100 MG; Start 03/03/17 at 21:00; Stop 03/09/17 at 23:59 Apixaban (Eliquis) 2.5 mg BID PO ; Start 03/04/17 at 21:00 Hydrocodone Bit/ Homatropine Methylb (Hycodan Liquid) 10 ml TID PO ; Start 03/04 at 13:00 TRAMAINE ELLSWORTH Mar 04, 2017 10:40
--- NOTE | 2017-03-04 12:02 | CONS ---
Date/Time of Note Date/Time of Note DATE: 03/04/17 TIME: 12:00 Assessment/Plan Assessment/Plan Chief Complaint/Hosp Course - h/o sepsis due to recurrent pneumonia, and to a lessor degree due to paronychia. 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 Aspergillus antibody was >1:64 but aspergillus antigen in serum by EIA was negative during his last admission. - macrocytic anemia - thrombocytopenia - h/o DVT of b/l UEs - b/l knee pain due to DJD - h/o post-obstructive pneumonia - h/o HTN, CAD, hyperlipidemia - h/o paroxysmal A fib - h/o hypothyroidism with elevated TSH level - HIV negative in 2013 - nonocclusive thrombus around the PICC catheter within the left brachial vein, axillary vein and subclavian vein per doppler 02/13/2017 recommendations: - continue PO doxycycline (Pt received vancomycin 02/27/2017-03/03/2017) until - I recommend hand or plastic surgery consult re. total or near detachment of multiple nail if available - I instructed Pt to stop peeling the nail and pressing the nail bed. Hand hygiene discussed with Pt again - continue using Hibiclens for body and hand wash - continue voriconazole for chronic suppression of aspergillus given his immunocompromised state; monitor LFTs weekly, last checked on 03/03/2017 management d/w Pt Problems: Consultation Date/Type/Reason Admit Date/Time Jan 31, 2017 at 18:59 Initial Consult Date 02/14/17 Type of Consultation: ID Referring Provider: MARYAM FARMER MD 24 HR Interval Summary Constitutional: other (got dyspenia and noticed his BP went high), requiring O2 Detailed Summary Eyes: no complaints ENT: no complaints Respiratory: cough, shortness of breath, sputum Cardiovascular: no complaints Gastrointestinal: no complaints Genitourinary: no complaints Musculoskeletal: no complaints Skin: skin lesions (nail detachment, denies pain) Neurologic: no complaints Exam/Review of Systems Vital Signs Vitals Vital Signs Date Time Temp Pulse Resp B/P Pulse Ox O2 Delivery O2 Flow Rate FiO2 03/04/17 08:07 98.3 94 19 114/61 96 03/04/17 08:00 Nasal Cannula 4.0 03/04/17 05:11 50 Intake and Output 03/03/17 03/03/17 03/04/17 15:00 23:00 07:00 Intake Total 1150 ml 350 ml Output Total 500 ml Balance 650 ml 350 ml Exam Constitutional: frail, obese Psych: nl mood/affect, no complaints Head: atraumatic, normocephalic Eyes: nl conjunctiva, nl lids, nl sclera ENMT: mucosa pink and moist, nl external ears & nose, nl nasal mucosa & septum Neck: non-tender, No masses Respiratory: diminished breath sounds Cardiovascular: nl pulses, regular rate and rhythm Gastrointestinal: non-tender, soft Musculoskeletal: nl extremities to inspection Extremities: No edema Neurological: [employer] II-XII intact, nl mental status Skin: rash or lesions (nail changes and detachment secondary to chemo. Dressed. Non-purulent) Results Result Diagram: 03/04/17 0840 03/04/17 0840 Results 24 hrs Laboratory Tests Test 03/04/17 08:40 White Blood Count 4.4 L Red Blood Count 2.76 L Hemoglobin 8.7 L Hematocrit 28.7 L Mean Corpuscular Volume 104.0 H Mean Corpuscular Hemoglobin 31.5 Mean Corpuscular Hemoglobin Concent 30.3 L Red Cell Distribution Width 14.4 Platelet Count 124 L Mean Platelet Volume 11.2 H Neutrophils % 70.8 Lymphocytes % 12.8 L Monocytes % 11.2 H Eosinophils % 4.3 Basophils % 0.7 Nucleated Red Blood Cells % 0.0 Neutrophils # 3.1 Lymphocytes # 0.6 L Monocytes # 0.5 Eosinophils # 0.2 Basophils # 0.0 Nucleated Red Blood Cells # 0.0 Sodium Level 139 Potassium Level 3.5 Chloride Level 98 Carbon Dioxide Level 34 H Anion Gap 11 Blood Urea Nitrogen 15 Creatinine 1.41 H Glucose Level 90 Calcium Level 8.6 Medications Medications Current Medications Atorvastatin Calcium (Lipitor) 20 mg QHS PO Last administered on 03/03/17 20: 49; Admin Dose 20 MG; Start 01/31/17 at 21:00 Escitalopram Oxalate (Lexapro) 10 mg DAILY PO Last administered on 03/04/17 08 :08; Admin Dose 10 MG; Start 02/01/17 at 09:00 Ondansetron HCl (Zofran Inj) 4 mg Q6 PRN IV NAUSEA Last administered on 07:39; Admin Dose 4 MG; Start 01/31/17 at 19:30 Morphine Sulfate (Ms Contin (Er)) 15 mg BID PO Last administered on 03/04/17 08:09; Admin Dose 15 MG; Start 01/31/17 at 23:00 Nitroglycerin (Nitroglycerin (Sl Tab) 0.4 Mg) 1 tab Q5M PRN SL ANGINA Last administered on 02/19/17 19:48; Admin Dose 1 TAB; Start 02/01/17 at 11:30 Pantoprazole (Protonix Tab) 40 mg DAILY@06 PO Last administered on 03/04/17 05 :47; Admin Dose 40 MG; Start 02/02/17 at 06:00 Voriconazole (Vfend) 200 mg BID PO Last administered on 03/04/17 08:15; Admin Dose 200 MG; Start 02/01/17 at 21:00 Senna (Senokot) 1 tab DAILY PRN PO CONSTIPATION Last administered on 03/03/17 09:11; Admin Dose 1 TAB; Start 02/02/17 at 16:00 Lactulose (Enulose) 20 gm DAILY PRN PO CONSTIPATION; Start 02/02/17 at 16:00 IV Flush (NS 10 ml) 10 ml PRN PRN IV IV PROTOCOL; Start 02/06/17 at 20:00 Oxymetazoline HCl (Afrin [place]) 2 spray BID NASAL Last administered on 08:09; Admin Dose 2 SPRAY; Start 02/07/17 at 15:00 Furosemide (Lasix) 40 mg DAILY PO Last administered on 03/04/17 08:09; Admin Dose 40 MG; Start 02/19/17 at 09:00 Potassium Chloride (Klor-Con 20) 20 meq BID PO Last administered on 03/04/17 08:08; Admin Dose 20 MEQ; Start 02/27/17 at 21:00 Morphine Sulfate (morphine) 2 mg Q4H PRN IV SEVERE PAIN LEVEL 7-10 Last administered on 03/04/17 07:39; Admin Dose 2 MG; Start 02/28/17 at 19:00 Doxycycline Hyclate (Vibramycin) 100 mg BID PO Last administered on 03/04/17 08:08; Admin Dose 100 MG; Start 03/03/17 at 21:00; Stop 03/09/17 at 23:59 Apixaban (Eliquis) 2.5 mg BID PO ; Start 03/04/17 at 21:00 Hydrocodone Bit/ Homatropine Methylb (Hycodan Liquid) 10 ml TID PO ; Start 03/04 at 13:00 LUKE CAAL M.D. Mar 04, 2017 12:02
--- NOTE | 2017-03-04 12:13 | CONS ---
Date/Time of Note Date/Time of Note DATE: 03/04/17 TIME: 12:12 Assessment/Plan Assessment/Plan Additional Assessment/Plan 1. Anasarca- Fluid overload multifactorial s/p Diuresis with IV lasix and IV albumin 2. acute kidney injury 3. post obstructive PNA 4. Advanced non small lung CA 5. acute respiratory failure 6. Right subclavian Deep venous thrombosis 7. acute on chronic diastolic heart failure 8. h/o fungal pneumonia 9. Hyperlipidemia 10. hypothyroidism 11. Metabolic alkalosis Plan: s/p IV albumin with Lasix diureisis-lasix 40mg pO daily,Cr 1.44 today continue PO KCl 20mEQ BID plan is to continue current Lasix dose and monitor electrolytes IV abx as per ID and PMD, renally dose all abx Monitor Electroltyes and replace as needed. Will follow up Consultation Date/Type/Reason Admit Date/Time Jan 31, 2017 at 18:59 Initial Consult Date 02/14/17 Type of Consultation: NEPHROLOGY Referring Provider: MARYAM FARMER MD 24 HR Interval Summary Free Text/Dictation Cr 1.41, BP stable, Other electrolytes stable Exam/Review of Systems Vital Signs Vitals Vital Signs Date Time Temp Pulse Resp B/P Pulse Ox O2 Delivery O2 Flow Rate FiO2 03/04/17 12:06 98.1 83 19 105/60 98 03/04/17 08:00 Nasal Cannula 4.0 03/04/17 05:11 50 Intake and Output 03/03/17 03/03/17 03/04/17 15:00 23:00 07:00 Intake Total 1150 ml 350 ml Output Total 500 ml Balance 650 ml 350 ml Exam Constitutional: alert Respiratory: clear to auscultation, diminished breath sounds, normal air movement Cardiovascular: nl pulses, regular rate and rhythm Gastrointestinal: non-tender, soft Musculoskeletal: , 1+ edema ) Neurological: GREASE MONKEY II-XII intact, nl mental status Results Result Diagram: 03/04/17 0840 03/04/17 0840 Results 24 hrs Laboratory Tests Test 03/04/17 08:40 White Blood Count 4.4 L Red Blood Count 2.76 L Hemoglobin 8.7 L Hematocrit 28.7 L Mean Corpuscular Volume 104.0 H Mean Corpuscular Hemoglobin 31.5 Mean Corpuscular Hemoglobin Concent 30.3 L Red Cell Distribution Width 14.4 Platelet Count 124 L Mean Platelet Volume 11.2 H Neutrophils % 70.8 Lymphocytes % 12.8 L Monocytes % 11.2 H Eosinophils % 4.3 Basophils % 0.7 Nucleated Red Blood Cells % 0.0 Neutrophils # 3.1 Lymphocytes # 0.6 L Monocytes # 0.5 Eosinophils # 0.2 Basophils # 0.0 Nucleated Red Blood Cells # 0.0 Sodium Level 139 Potassium Level 3.5 Chloride Level 98 Carbon Dioxide Level 34 H Anion Gap 11 Blood Urea Nitrogen 15 Creatinine 1.41 H Glucose Level 90 Calcium Level 8.6 Medications Medications Current Medications Atorvastatin Calcium (Lipitor) 20 mg QHS PO Last administered on 03/03/17 20: 49; Admin Dose 20 MG; Start 01/31/17 at 21:00 Escitalopram Oxalate (Lexapro) 10 mg DAILY PO Last administered on 03/04/17 08 :08; Admin Dose 10 MG; Start 02/01/17 at 09:00 Ondansetron HCl (Zofran Inj) 4 mg Q6 PRN IV NAUSEA Last administered on 07:39; Admin Dose 4 MG; Start 01/31/17 at 19:30 Morphine Sulfate (Ms Contin (Er)) 15 mg BID PO Last administered on 03/04/17 08:09; Admin Dose 15 MG; Start 01/31/17 at 23:00 Nitroglycerin (Nitroglycerin (Sl Tab) 0.4 Mg) 1 tab Q5M PRN SL ANGINA Last administered on 02/19/17 19:48; Admin Dose 1 TAB; Start 02/01/17 at 11:30 Pantoprazole (Protonix Tab) 40 mg DAILY@06 PO Last administered on 03/04/17 05 :47; Admin Dose 40 MG; Start 02/02/17 at 06:00 Voriconazole (Vfend) 200 mg BID PO Last administered on 03/04/17 08:15; Admin Dose 200 MG; Start 02/01/17 at 21:00 Senna (Senokot) 1 tab DAILY PRN PO CONSTIPATION Last administered on 03/03/17 09:11; Admin Dose 1 TAB; Start 02/02/17 at 16:00 Lactulose (Enulose) 20 gm DAILY PRN PO CONSTIPATION; Start 02/02/17 at 16:00 IV Flush (NS 10 ml) 10 ml PRN PRN IV IV PROTOCOL; Start 02/06/17 at 20:00 Oxymetazoline HCl (Afrin [place]) 2 spray BID NASAL Last administered on 08:09; Admin Dose 2 SPRAY; Start 02/07/17 at 15:00 Furosemide (Lasix) 40 mg DAILY PO Last administered on 03/04/17 08:09; Admin Dose 40 MG; Start 02/19/17 at 09:00 Potassium Chloride (Klor-Con 20) 20 meq BID PO Last administered on 03/04/17 08:08; Admin Dose 20 MEQ; Start 02/27/17 at 21:00 Morphine Sulfate (morphine) 2 mg Q4H PRN IV SEVERE PAIN LEVEL 7-10 Last administered on 03/04/17 07:39; Admin Dose 2 MG; Start 02/28/17 at 19:00 Doxycycline Hyclate (Vibramycin) 100 mg BID PO Last administered on 03/04/17 08:08; Admin Dose 100 MG; Start 03/03/17 at 21:00; Stop 03/09/17 at 23:59 Apixaban (Eliquis) 2.5 mg BID PO ; Start 03/04/17 at 21:00 Hydrocodone Bit/ Homatropine Methylb (Hycodan Liquid) 10 ml TID PO ; Start 03/04 at 13:00 MELODY JENSEN MD Mar 04, 2017 12:13
[2017-03-04] MEDS: HYDROCODONE/HOMATROPINE 5ML CUP PO SCH ×2 (12:15→20:45)
--- NOTE | 2017-03-04 15:37 | CONS ---
Date/Time of Note Date/Time of Note DATE: 03/04/17 TIME: 15:28 Assessment/Plan Assessment/Plan Additional Assessment/Plan Pleuritic Chest pain. Lung cancer s/p chemo Abnormal electrocardiogram with nonspecific ST and T-wave Post obstructive Pneumonia Anemia. Thrombocytopenia DVT-RUE on eliquis Renal failure Continue Bipap at night Continue Continuous Oxygen Continue Lasix Keep mag > 2 and Potassium > 4 Continue Eliquis Continue Antibiotics Consultation Date/Type/Reason Admit Date/Time Jan 31, 2017 at 18:59 Initial Consult Date 02/01/17 Type of Consultation: NEPHROLOGY Referring Provider: MARYAM FARMER MD Exam/Review of Systems Vital Signs Vitals Vital Signs Date Time Temp Pulse Resp B/P Pulse Ox O2 Delivery O2 Flow Rate FiO2 03/04/17 15:21 Nasal Cannula 4.0 03/04/17 14:04 18 96 03/04/17 12:10 87 03/04/17 12:06 98.1 105/60 03/04/17 05:11 50 Intake and Output 03/03/17 03/03/17 03/04/17 15:00 23:00 07:00 Intake Total 1150 ml 350 ml Output Total 500 ml Balance 650 ml 350 ml Exam Constitutional: alert, oriented Neck: non-tender, supple Respiratory: diminished breath sounds Cardiovascular: regular rate and rhythm Gastrointestinal: nl liver, spleen, soft Extremities: edema Results Result Diagram: 03/04/17 0840 03/04/17 0840 Results 24 hrs Laboratory Tests Test 03/04/17 08:40 White Blood Count 4.4 L Red Blood Count 2.76 L Hemoglobin 8.7 L Hematocrit 28.7 L Mean Corpuscular Volume 104.0 H Mean Corpuscular Hemoglobin 31.5 Mean Corpuscular Hemoglobin Concent 30.3 L Red Cell Distribution Width 14.4 Platelet Count 124 L Mean Platelet Volume 11.2 H Neutrophils % 70.8 Lymphocytes % 12.8 L Monocytes % 11.2 H Eosinophils % 4.3 Basophils % 0.7 Nucleated Red Blood Cells % 0.0 Neutrophils # 3.1 Lymphocytes # 0.6 L Monocytes # 0.5 Eosinophils # 0.2 Basophils # 0.0 Nucleated Red Blood Cells # 0.0 Sodium Level 139 Potassium Level 3.5 Chloride Level 98 Carbon Dioxide Level 34 H Anion Gap 11 Blood Urea Nitrogen 15 Creatinine 1.41 H Glucose Level 90 Calcium Level 8.6 Medications Medications Current Medications Atorvastatin Calcium (Lipitor) 20 mg QHS PO Last administered on 03/03/17 20: 49; Admin Dose 20 MG; Start 01/31/17 at 21:00 Escitalopram Oxalate (Lexapro) 10 mg DAILY PO Last administered on 03/04/17 08 :08; Admin Dose 10 MG; Start 02/01/17 at 09:00 Ondansetron HCl (Zofran Inj) 4 mg Q6 PRN IV NAUSEA Last administered on 07:39; Admin Dose 4 MG; Start 01/31/17 at 19:30 Morphine Sulfate (Ms Contin (Er)) 15 mg BID PO Last administered on 03/04/17 08:09; Admin Dose 15 MG; Start 01/31/17 at 23:00 Nitroglycerin (Nitroglycerin (Sl Tab) 0.4 Mg) 1 tab Q5M PRN SL ANGINA Last administered on 02/19/17 19:48; Admin Dose 1 TAB; Start 02/01/17 at 11:30 Pantoprazole (Protonix Tab) 40 mg DAILY@06 PO Last administered on 03/04/17 05 :47; Admin Dose 40 MG; Start 02/02/17 at 06:00 Voriconazole (Vfend) 200 mg BID PO Last administered on 03/04/17 08:15; Admin Dose 200 MG; Start 02/01/17 at 21:00 Senna (Senokot) 1 tab DAILY PRN PO CONSTIPATION Last administered on 03/03/17 09:11; Admin Dose 1 TAB; Start 02/02/17 at 16:00 Lactulose (Enulose) 20 gm DAILY PRN PO CONSTIPATION; Start 02/02/17 at 16:00 IV Flush (NS 10 ml) 10 ml PRN PRN IV IV PROTOCOL; Start 02/06/17 at 20:00 Oxymetazoline HCl (Afrin [place]) 2 spray BID NASAL Last administered on 08:09; Admin Dose 2 SPRAY; Start 02/07/17 at 15:00 Furosemide (Lasix) 40 mg DAILY PO Last administered on 03/04/17 08:09; Admin Dose 40 MG; Start 02/19/17 at 09:00 Potassium Chloride (Klor-Con 20) 20 meq BID PO Last administered on 03/04/17 08:08; Admin Dose 20 MEQ; Start 02/27/17 at 21:00 Morphine Sulfate (morphine) 2 mg Q4H PRN IV SEVERE PAIN LEVEL 7-10 Last administered on 03/04/17 12:16; Admin Dose 2 MG; Start 02/28/17 at 19:00 Doxycycline Hyclate (Vibramycin) 100 mg BID PO Last administered on 03/04/17 08:08; Admin Dose 100 MG; Start 03/03/17 at 21:00; Stop 03/09/17 at 23:59 Apixaban (Eliquis) 2.5 mg BID PO ; Start 03/04/17 at 21:00 Hydrocodone Bit/ Homatropine Methylb (Hycodan Liquid) 10 ml TID PO Last administered on 03/04/17 12:15; Admin Dose 10 ML; Start 03/04/17 at 13:00 ANDRÉS CAVAZOS M.D. Mar 04, 2017 15:37
[2017-03-04] MEDS: ATORVASTATIN 20 MG TAB PO SCH (20:45)
[2017-03-05] VITALS (13 sets, daily range): BP systolic 101–136; BP diastolic 60–80; PULSE 80–95; RESP 16–21
[2017-03-05] MEDS: LEVALBUTEROL (NEB) 0.63 MG/3 ML AMP HHN SCH ×4 (01:36→19:50)
[2017-03-05] MEDS: PANTOPRAZOLE (EC) 40 MG TAB PO SCH (05:59)
[2017-03-05] MEDS: DRONABINOL 2.5 MG CAP PO SCH ×3 (09:01→17:32)
[2017-03-05] MEDS: DOXYCYCLINE 100 MG TAB PO SCH ×2 (09:01→21:09)
[2017-03-05] MEDS: morphine (ER) 15 MG TAB PO SCH ×2 (09:01→21:07)
[2017-03-05] MEDS: SENNA TAB PO PRN ×2 (09:01→21:14)
[2017-03-05] MEDS: POTASSIUM CHLORIDE (SR) 20 MEQ TAB PO SCH ×2 (09:01→21:09)
[2017-03-05] MEDS: ESCITALOPRAM 10 MG TAB PO SCH (09:02)
[2017-03-05] MEDS: LEVOTHYROXINE 75 MCG TAB PO SCH (09:02)
[2017-03-05] MEDS: HYDROCODONE/HOMATROPINE 5ML CUP PO SCH ×3 (09:02→21:06)
[2017-03-05] MEDS: FUROSEMIDE 40 MG TAB PO SCH ×2 (09:02→21:14)
[2017-03-05] MEDS: OXYMETAZOLINE 0.05% 15 ML NAS SPRAY NASAL SCH ×2 (09:03→21:06)
[2017-03-05] MEDS: VORICONAZOLE 200 MG TAB PO SCH ×2 (09:03→21:10)
[2017-03-05] MEDS: APIXABAN 5 MG TABLET PO SCH ×2 (09:03→21:10)
[2017-03-05 09:09] LABS: BASOPHILS % 0.6 % (0.0-2.0); EOSINOPHILS # 0.1 10^3/ul (0.0-0.5); EOSINOPHILS % 2.7 % (0.0-7.0); HEMATOCRIT 29.9 % (42.0-52.0); HEMOGLOBIN 9.1 g/dl (14.0-18.0); LYMPHOCYTES # 0.7 10^3/ul (0.8-2.9); LYMPHOCYTES % 14.3 % (15.0-51.0); MEAN CORPUSCULAR HEMOGLOBIN 31.8 pg (29.0-33.0); MEAN CORPUSCULAR HGB CONC 30.4 g/dl (32.0-37.0); MEAN CORPUSCULAR VOLUME 104.5 fl (82.0-101.0); MEAN PLATELET VOLUME 10.5 fl (7.4-10.4); MONOCYTE # 0.5 10^3/ul (0.3-0.9); MONOCYTES % 9.7 % (0.0-11.0); NEUTROPHIL # 3.4 10^3/ul (1.6-7.5); NEUTROPHILS % 72.3 % (39.0-77.0); PLATELET COUNT 126 10^3/UL (140-415); RED BLOOD COUNT 2.86 10^6/ul (4.70-6.10); RED CELL DISTRIBUTION WIDTH 14.3 % (11.5-14.5); WHITE BLOOD COUNT 4.8 10^3/ul (4.8-10.8)
[2017-03-05 09:40] LABS: CALCIUM 8.8 mg/dl (8.4-10.2); CREATININE 1.51 mg/dl (0.61-1.24)
--- NOTE | 2017-03-05 12:21 | CONS ---
Date/Time of Note Date/Time of Note DATE: 03/05/17 TIME: 12:19 Assessment/Plan Assessment/Plan Chief Complaint/Hosp Course - h/o sepsis due to recurrent pneumonia, and to a lessor degree due to paronychia. 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 Aspergillus antibody was >1:64 but aspergillus antigen in serum by EIA was negative during his last admission. - macrocytic anemia - thrombocytopenia - h/o DVT of b/l UEs - b/l knee pain due to DJD - h/o post-obstructive pneumonia - h/o HTN, CAD, hyperlipidemia - h/o paroxysmal A fib - h/o hypothyroidism with elevated TSH level - HIV negative in 2013 - nonocclusive thrombus around the PICC catheter within the left brachial vein, axillary vein and subclavian vein per doppler 02/13/2017 recommendations: - continue PO doxycycline (Pt received vancomycin 02/27/2017-03/03/2017) until - if available I recommend hand or plastic surgery consult re. total or near detachment of multiple nail - I instructed Pt to stop peeling the nail and pressing the nail bed. Hand hygiene discussed with Pt - continue voriconazole for chronic suppression of aspergillus given his immunocompromised state; monitor LFTs weekly, last checked on 03/03/2017 management d/w Pt, his Problems: Consultation Date/Type/Reason Admit Date/Time Jan 31, 2017 at 18:59 Initial Consult Date 02/14/17 Type of Consultation: ID Referring Provider: MARYAM FARMER MD 24 HR Interval Summary Constitutional: other (weak), requiring O2 Detailed Summary Eyes: no complaints ENT: no complaints Respiratory: cough, sputum, No pleuritic pain, No shortness of breath, No wheezing Cardiovascular: no complaints Gastrointestinal: no complaints Genitourinary: no complaints Musculoskeletal: no complaints Skin: skin lesions (detachment of nail, nail changes due to chemo) Neurologic: no complaints Endocrine: no complaints Exam/Review of Systems Vital Signs Vitals Vital Signs Date Time Temp Pulse Resp B/P Pulse Ox O2 Delivery O2 Flow Rate FiO2 03/05/17 11:46 98.0 102 20 114/71 96 03/05/17 11:45 Nasal Cannula 4.0 03/04/17 05:11 50 Intake and Output 03/04/17 03/04/17 03/05/17 15:00 23:00 07:00 Intake Total 900 ml 400 ml Balance 900 ml 400 ml Exam Constitutional: frail, obese Psych: anxiety, no complaints Head: atraumatic, normocephalic Eyes: nl conjunctiva, nl lids ENMT: nl external ears & nose Respiratory: crackles/rales, diminished breath sounds Cardiovascular: nl pulses, regular rate and rhythm Gastrointestinal: non-tender, soft Musculoskeletal: nl extremities to inspection Extremities: No edema Skin: rash or lesions (detaching nail with scabs without purulence) Results Result Diagram: 03/05/17 0846 03/05/17 0846 Results 24 hrs Laboratory Tests Test 03/05/17 08:46 White Blood Count 4.8 Red Blood Count 2.86 L Hemoglobin 9.1 L Hematocrit 29.9 L Mean Corpuscular Volume 104.5 H Mean Corpuscular Hemoglobin 31.8 Mean Corpuscular Hemoglobin Concent 30.4 L Red Cell Distribution Width 14.3 Platelet Count 126 L Mean Platelet Volume 10.5 H Neutrophils % 72.3 Lymphocytes % 14.3 L Monocytes % 9.7 Eosinophils % 2.7 Basophils % 0.6 Nucleated Red Blood Cells % 0.0 Neutrophils # 3.4 Lymphocytes # 0.7 L Monocytes # 0.5 Eosinophils # 0.1 Basophils # 0.0 Nucleated Red Blood Cells # 0.0 Sodium Level 140 Potassium Level 4.0 Chloride Level 99 Carbon Dioxide Level 35 H Anion Gap 10 Blood Urea Nitrogen 16 Creatinine 1.51 H Glucose Level 101 Calcium Level 8.8 Medications Medications Current Medications Atorvastatin Calcium (Lipitor) 20 mg QHS PO Last administered on 03/04/17 20: 45; Admin Dose 20 MG; Start 01/31/17 at 21:00 Escitalopram Oxalate (Lexapro) 10 mg DAILY PO Last administered on 03/05/17 09 :02; Admin Dose 10 MG; Start 02/01/17 at 09:00 Ondansetron HCl (Zofran Inj) 4 mg Q6 PRN IV NAUSEA Last administered on 07:39; Admin Dose 4 MG; Start 01/31/17 at 19:30 Morphine Sulfate (Ms Contin (Er)) 15 mg BID PO Last administered on 03/05/17 09:01; Admin Dose 15 MG; Start 01/31/17 at 23:00 Nitroglycerin (Nitroglycerin (Sl Tab) 0.4 Mg) 1 tab Q5M PRN SL ANGINA Last administered on 02/19/17 19:48; Admin Dose 1 TAB; Start 02/01/17 at 11:30 Pantoprazole (Protonix Tab) 40 mg DAILY@06 PO Last administered on 03/05/17 05 :59; Admin Dose 40 MG; Start 02/02/17 at 06:00 Voriconazole (Vfend) 200 mg BID PO Last administered on 03/05/17 09:03; Admin Dose 200 MG; Start 02/01/17 at 21:00 Senna (Senokot) 1 tab DAILY PRN PO CONSTIPATION Last administered on 03/05/17 09:01; Admin Dose 1 TAB; Start 02/02/17 at 16:00 Lactulose (Enulose) 20 gm DAILY PRN PO CONSTIPATION; Start 02/02/17 at 16:00 IV Flush (NS 10 ml) 10 ml PRN PRN IV IV PROTOCOL; Start 02/06/17 at 20:00 Oxymetazoline HCl (Afrin [place]) 2 spray BID NASAL Last administered on 09:03; Admin Dose 2 SPRAY; Start 02/07/17 at 15:00 Furosemide (Lasix) 40 mg DAILY PO Last administered on 03/05/17 09:02; Admin Dose 40 MG; Start 02/19/17 at 09:00 Potassium Chloride (Klor-Con 20) 20 meq BID PO Last administered on 03/05/17 09:01; Admin Dose 20 MEQ; Start 02/27/17 at 21:00 Morphine Sulfate (morphine) 2 mg Q4H PRN IV SEVERE PAIN LEVEL 7-10 Last administered on 03/04/17 12:16; Admin Dose 2 MG; Start 02/28/17 at 19:00 Doxycycline Hyclate (Vibramycin) 100 mg BID PO Last administered on 03/05/17 09:01; Admin Dose 100 MG; Start 03/03/17 at 21:00; Stop 03/09/17 at 23:59 Apixaban (Eliquis) 2.5 mg BID PO Last administered on 03/05/17 09:03; Admin Dose 2.5 MG; Start 03/04/17 at 21:00 Hydrocodone Bit/ Homatropine Methylb (Hycodan Liquid) 10 ml TID PO Last administered on 03/05/17 12:14; Admin Dose 10 ML; Start 03/04/17 at 13:00 LUKE CAAL M.D. Mar 05, 2017 12:21
--- NOTE | 2017-03-05 12:30 | CONS ---
Date/Time of Note Date/Time of Note DATE: 03/05/17 TIME: 12:27 Assessment/Plan Assessment/Plan Additional Assessment/Plan Assessment and recommendations; 1. Patient admitted with bronchopneumonia involving right lung due to extensive metastatic non-small cell lung cancer likely with significant postobstructive element. 2. Left upper extremity DVT. 3. COPD. 4. Renal insufficiency. 5. Anemia. 6. Hypercapnic respiratory failure. Continue current treatment. Consider discharge on home BiPAP. Prognosis is poor. Consultation Date/Type/Reason Admit Date/Time Jan 31, 2017 at 18:59 Initial Consult Date 02/01/17 Type of Consultation: Pulmonary Referring Provider: MARYAM FARMER MD 24 HR Interval Summary Free Text/Dictation Patient condition is tenuous at best. Complains of dyspnea on minimal exertion. Complains of cough and occasional hemoptysis. General exam; elderly male, currently no distress. Awake and alert. Exam/Review of Systems Vital Signs Vitals Vital Signs Date Time Temp Pulse Resp B/P Pulse Ox O2 Delivery O2 Flow Rate FiO2 03/05/17 11:46 98.0 102 20 114/71 96 03/05/17 11:45 Nasal Cannula 4.0 03/04/17 05:11 50 Intake and Output 03/04/17 03/04/17 03/05/17 15:00 23:00 07:00 Intake Total 900 ml 400 ml Balance 900 ml 400 ml Exam HEENT exam; supple neck, no JVD. No lymphadenopathy. Midline trachea. No thyromegaly. Patient has fair dentition. Patient is alopecic. Chest exam; diminished breath sounds right lung. Left lung is clear to auscultation. S1-S2 audible, no murmurs. Regular rhythm. Abdomen exam; soft, nondistended. Bowel sounds audible. Extremity exam; no peripheral edema. No clubbing. Pulses 1+ bilaterally. 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 Results Result Diagram: 03/05/17 0846 03/05/17 0846 Results 24 hrs Laboratory Tests Test 03/05/17 08:46 White Blood Count 4.8 Red Blood Count 2.86 L Hemoglobin 9.1 L Hematocrit 29.9 L Mean Corpuscular Volume 104.5 H Mean Corpuscular Hemoglobin 31.8 Mean Corpuscular Hemoglobin Concent 30.4 L Red Cell Distribution Width 14.3 Platelet Count 126 L Mean Platelet Volume 10.5 H Neutrophils % 72.3 Lymphocytes % 14.3 L Monocytes % 9.7 Eosinophils % 2.7 Basophils % 0.6 Nucleated Red Blood Cells % 0.0 Neutrophils # 3.4 Lymphocytes # 0.7 L Monocytes # 0.5 Eosinophils # 0.1 Basophils # 0.0 Nucleated Red Blood Cells # 0.0 Sodium Level 140 Potassium Level 4.0 Chloride Level 99 Carbon Dioxide Level 35 H Anion Gap 10 Blood Urea Nitrogen 16 Creatinine 1.51 H Glucose Level 101 Calcium Level 8.8 Medications Medications Current Medications Atorvastatin Calcium (Lipitor) 20 mg QHS PO Last administered on 03/04/17 20: 45; Admin Dose 20 MG; Start 01/31/17 at 21:00 Escitalopram Oxalate (Lexapro) 10 mg DAILY PO Last administered on 03/05/17 09 :02; Admin Dose 10 MG; Start 02/01/17 at 09:00 Ondansetron HCl (Zofran Inj) 4 mg Q6 PRN IV NAUSEA Last administered on 07:39; Admin Dose 4 MG; Start 01/31/17 at 19:30 Morphine Sulfate (Ms Contin (Er)) 15 mg BID PO Last administered on 03/05/17 09:01; Admin Dose 15 MG; Start 01/31/17 at 23:00 Nitroglycerin (Nitroglycerin (Sl Tab) 0.4 Mg) 1 tab Q5M PRN SL ANGINA Last administered on 02/19/17 19:48; Admin Dose 1 TAB; Start 02/01/17 at 11:30 Pantoprazole (Protonix Tab) 40 mg DAILY@06 PO Last administered on 03/05/17 05 :59; Admin Dose 40 MG; Start 02/02/17 at 06:00 Voriconazole (Vfend) 200 mg BID PO Last administered on 03/05/17 09:03; Admin Dose 200 MG; Start 02/01/17 at 21:00 Senna (Senokot) 1 tab DAILY PRN PO CONSTIPATION Last administered on 03/05/17 09:01; Admin Dose 1 TAB; Start 02/02/17 at 16:00 Lactulose (Enulose) 20 gm DAILY PRN PO CONSTIPATION; Start 02/02/17 at 16:00 IV Flush (NS 10 ml) 10 ml PRN PRN IV IV PROTOCOL; Start 02/06/17 at 20:00 Oxymetazoline HCl (Afrin [place]) 2 spray BID NASAL Last administered on 09:03; Admin Dose 2 SPRAY; Start 02/07/17 at 15:00 Furosemide (Lasix) 40 mg DAILY PO Last administered on 03/05/17 09:02; Admin Dose 40 MG; Start 02/19/17 at 09:00 Potassium Chloride (Klor-Con 20) 20 meq BID PO Last administered on 03/05/17 09:01; Admin Dose 20 MEQ; Start 02/27/17 at 21:00 Morphine Sulfate (morphine) 2 mg Q4H PRN IV SEVERE PAIN LEVEL 7-10 Last administered on 03/04/17 12:16; Admin Dose 2 MG; Start 02/28/17 at 19:00 Doxycycline Hyclate (Vibramycin) 100 mg BID PO Last administered on 03/05/17 09:01; Admin Dose 100 MG; Start 03/03/17 at 21:00; Stop 03/09/17 at 23:59 Apixaban (Eliquis) 2.5 mg BID PO Last administered on 03/05/17 09:03; Admin Dose 2.5 MG; Start 03/04/17 at 21:00 Hydrocodone Bit/ Homatropine Methylb (Hycodan Liquid) 10 ml TID PO Last administered on 03/05/17 12:14; Admin Dose 10 ML; Start 03/04/17 at 13:00 ISMA CUTLER Mar 05, 2017 12:30
--- NOTE | 2017-03-05 16:56 | CONS ---
Date/Time of Note Date/Time of Note DATE: 03/05/17 TIME: 16:56 Assessment/Plan Assessment/Plan Additional Assessment/Plan 1. Anasarca- Fluid overload multifactorial s/p Diuresis with IV lasix and IV albumin 2. acute kidney injury 3. post obstructive PNA 4. Advanced non small lung CA 5. acute respiratory failure 6. Right subclavian Deep venous thrombosis 7. acute on chronic diastolic heart failure 8. h/o fungal pneumonia 9. Hyperlipidemia 10. hypothyroidism 11. Metabolic alkalosis Plan: s/p IV albumin with Lasix diureisis-lasix 40mg pO daily,Cr 1.55, HCo3 35 today plan is to continue current Lasix dose and monitor electrolytes IV abx as per ID and PMD, renally dose all abx Monitor Electroltyes and replace as needed. Will follow up Consultation Date/Type/Reason Admit Date/Time Jan 31, 2017 at 18:59 Initial Consult Date 02/14/17 Type of Consultation: NEPHROLOGY Referring Provider: MARYAM FARMER MD 24 HR Interval Summary Free Text/Dictation Cr 1.51, HCo3 35, BP stable Exam/Review of Systems Vital Signs Vitals Vital Signs Date Time Temp Pulse Resp B/P Pulse Ox O2 Delivery O2 Flow Rate FiO2 03/05/17 16:03 98.8 94 21 101/63 95 03/05/17 15:45 Nasal Cannula 4.0 03/04/17 05:11 50 Intake and Output 03/04/17 03/04/17 03/05/17 15:00 23:00 07:00 Intake Total 900 ml 400 ml Balance 900 ml 400 ml Results Result Diagram: 03/05/17 0846 03/05/17 0846 Results 24 hrs Laboratory Tests Test 03/05/17 08:46 White Blood Count 4.8 Red Blood Count 2.86 L Hemoglobin 9.1 L Hematocrit 29.9 L Mean Corpuscular Volume 104.5 H Mean Corpuscular Hemoglobin 31.8 Mean Corpuscular Hemoglobin Concent 30.4 L Red Cell Distribution Width 14.3 Platelet Count 126 L Mean Platelet Volume 10.5 H Neutrophils % 72.3 Lymphocytes % 14.3 L Monocytes % 9.7 Eosinophils % 2.7 Basophils % 0.6 Nucleated Red Blood Cells % 0.0 Neutrophils # 3.4 Lymphocytes # 0.7 L Monocytes # 0.5 Eosinophils # 0.1 Basophils # 0.0 Nucleated Red Blood Cells # 0.0 Sodium Level 140 Potassium Level 4.0 Chloride Level 99 Carbon Dioxide Level 35 H Anion Gap 10 Blood Urea Nitrogen 16 Creatinine 1.51 H Glucose Level 101 Calcium Level 8.8 Medications Medications Current Medications Atorvastatin Calcium (Lipitor) 20 mg QHS PO Last administered on 03/04/17 20: 45; Admin Dose 20 MG; Start 01/31/17 at 21:00 Escitalopram Oxalate (Lexapro) 10 mg DAILY PO Last administered on 03/05/17 09 :02; Admin Dose 10 MG; Start 02/01/17 at 09:00 Ondansetron HCl (Zofran Inj) 4 mg Q6 PRN IV NAUSEA Last administered on 07:39; Admin Dose 4 MG; Start 01/31/17 at 19:30 Morphine Sulfate (Ms Contin (Er)) 15 mg BID PO Last administered on 03/05/17 09:01; Admin Dose 15 MG; Start 01/31/17 at 23:00 Nitroglycerin (Nitroglycerin (Sl Tab) 0.4 Mg) 1 tab Q5M PRN SL ANGINA Last administered on 02/19/17 19:48; Admin Dose 1 TAB; Start 02/01/17 at 11:30 Pantoprazole (Protonix Tab) 40 mg DAILY@06 PO Last administered on 03/05/17 05 :59; Admin Dose 40 MG; Start 02/02/17 at 06:00 Voriconazole (Vfend) 200 mg BID PO Last administered on 03/05/17 09:03; Admin Dose 200 MG; Start 02/01/17 at 21:00 Senna (Senokot) 1 tab DAILY PRN PO CONSTIPATION Last administered on 03/05/17 09:01; Admin Dose 1 TAB; Start 02/02/17 at 16:00 Lactulose (Enulose) 20 gm DAILY PRN PO CONSTIPATION; Start 02/02/17 at 16:00 IV Flush (NS 10 ml) 10 ml PRN PRN IV IV PROTOCOL; Start 02/06/17 at 20:00 Oxymetazoline HCl (Afrin [place]) 2 spray BID NASAL Last administered on 09:03; Admin Dose 2 SPRAY; Start 02/07/17 at 15:00 Furosemide (Lasix) 40 mg DAILY PO Last administered on 03/05/17 09:02; Admin Dose 40 MG; Start 02/19/17 at 09:00 Potassium Chloride (Klor-Con 20) 20 meq BID PO Last administered on 03/05/17 09:01; Admin Dose 20 MEQ; Start 02/27/17 at 21:00 Morphine Sulfate (morphine) 2 mg Q4H PRN IV SEVERE PAIN LEVEL 7-10 Last administered on 03/04/17 12:16; Admin Dose 2 MG; Start 02/28/17 at 19:00 Doxycycline Hyclate (Vibramycin) 100 mg BID PO Last administered on 03/05/17 09:01; Admin Dose 100 MG; Start 03/03/17 at 21:00; Stop 03/09/17 at 23:59 Apixaban (Eliquis) 2.5 mg BID PO Last administered on 03/05/17 09:03; Admin Dose 2.5 MG; Start 03/04/17 at 21:00 Hydrocodone Bit/ Homatropine Methylb (Hycodan Liquid) 10 ml TID PO Last administered on 03/05/17 12:14; Admin Dose 10 ML; Start 03/04/17 at 13:00 MELODY JENSEN MD Mar 05, 2017 16:56
--- NOTE | 2017-03-05 17:47 | PN ---
Date/Time of Note Date/Time of Note DATE: 03/05/17 TIME: 17:44 Assessment/Plan VTE Prophylaxis VTE Prophylaxis Intervention: SCD's Lines/Catheters IV [facility] Type [facility] PICC Line Central line still needed: Yes Urinary Cath still in place: No Assessment/Plan Chief Complaint/Hosp Course Patient is lethargic but easily arousable, continues on supplemental oxygen during the day and BiPAP at night. Assessment/Plan - Paronychia, MSSA, cont abx per ID. - LIZ, Dr. Irving is following in nephrology consultation. - Post-obstructive pneumonia Dr. Philly perry is following infection disease consultation. Status post treatment with antibiotics. - Advanced non-small cell lung CA, Dr. Scanlon is following in oncology consultation. - Acute respiratory failure secondary to above. is following in pulmonology consultation. - Nonocclusive deep venous thrombosis bilateral upper extremities. Continue Eliquis. - Acute on chronic diastolic congestive heart failure, continue gentle diuresis , continue to monitor electrolytes. - h/o fungal pneumonia, on maintenance voriconazole - CAD, continue aspirin. - Hyperlipidemia, continue statin - Hypothyroidism, continue levothyroxine. - Paroxysmal atrial fibrillation, controlled rate, patient is continued on Eliquis. Further recommendations based on clinical course. Plan of care discussed with Dr. Lincoln. Problems: Exam/Review of Systems Vital Signs Vitals Vital Signs Date Time Temp Pulse Resp B/P Pulse Ox O2 Delivery O2 Flow Rate FiO2 03/05/17 16:12 91 03/05/17 16:03 98.8 21 101/63 95 03/05/17 15:45 Nasal Cannula 4.0 03/04/17 05:11 50 Intake and Output 03/04/17 03/04/17 03/05/17 15:00 23:00 07:00 Intake Total 900 ml 400 ml Balance 900 ml 400 ml Exam Constitutional: alert Neck: supple Respiratory: diminished breath sounds Cardiovascular: nl pulses Gastrointestinal: non-tender, soft Extremities: edema Results Result Diagram: 03/05/17 0846 03/05/17 0846 Results 24 hrs Laboratory Tests Test 03/05/17 08:46 White Blood Count 4.8 Red Blood Count 2.86 L Hemoglobin 9.1 L Hematocrit 29.9 L Mean Corpuscular Volume 104.5 H Mean Corpuscular Hemoglobin 31.8 Mean Corpuscular Hemoglobin Concent 30.4 L Red Cell Distribution Width 14.3 Platelet Count 126 L Mean Platelet Volume 10.5 H Neutrophils % 72.3 Lymphocytes % 14.3 L Monocytes % 9.7 Eosinophils % 2.7 Basophils % 0.6 Nucleated Red Blood Cells % 0.0 Neutrophils # 3.4 Lymphocytes # 0.7 L Monocytes # 0.5 Eosinophils # 0.1 Basophils # 0.0 Nucleated Red Blood Cells # 0.0 Sodium Level 140 Potassium Level 4.0 Chloride Level 99 Carbon Dioxide Level 35 H Anion Gap 10 Blood Urea Nitrogen 16 Creatinine 1.51 H Glucose Level 101 Calcium Level 8.8 Medications Medications Current Medications Atorvastatin Calcium (Lipitor) 20 mg QHS PO Last administered on 03/04/17 20: 45; Admin Dose 20 MG; Start 01/31/17 at 21:00 Escitalopram Oxalate (Lexapro) 10 mg DAILY PO Last administered on 03/05/17 09 :02; Admin Dose 10 MG; Start 02/01/17 at 09:00 Ondansetron HCl (Zofran Inj) 4 mg Q6 PRN IV NAUSEA Last administered on 07:39; Admin Dose 4 MG; Start 01/31/17 at 19:30 Morphine Sulfate (Ms Contin (Er)) 15 mg BID PO Last administered on 03/05/17 09:01; Admin Dose 15 MG; Start 01/31/17 at 23:00 Nitroglycerin (Nitroglycerin (Sl Tab) 0.4 Mg) 1 tab Q5M PRN SL ANGINA Last administered on 02/19/17 19:48; Admin Dose 1 TAB; Start 02/01/17 at 11:30 Pantoprazole (Protonix Tab) 40 mg DAILY@06 PO Last administered on 03/05/17 05 :59; Admin Dose 40 MG; Start 02/02/17 at 06:00 Voriconazole (Vfend) 200 mg BID PO Last administered on 03/05/17 09:03; Admin Dose 200 MG; Start 02/01/17 at 21:00 Senna (Senokot) 1 tab DAILY PRN PO CONSTIPATION Last administered on 03/05/17 09:01; Admin Dose 1 TAB; Start 02/02/17 at 16:00 Lactulose (Enulose) 20 gm DAILY PRN PO CONSTIPATION; Start 02/02/17 at 16:00 IV Flush (NS 10 ml) 10 ml PRN PRN IV IV PROTOCOL; Start 02/06/17 at 20:00 Oxymetazoline HCl (Afrin [place]) 2 spray BID NASAL Last administered on 09:03; Admin Dose 2 SPRAY; Start 02/07/17 at 15:00 Furosemide (Lasix) 40 mg DAILY PO Last administered on 03/05/17 09:02; Admin Dose 40 MG; Start 02/19/17 at 09:00 Potassium Chloride (Klor-Con 20) 20 meq BID PO Last administered on 03/05/17 09:01; Admin Dose 20 MEQ; Start 02/27/17 at 21:00 Morphine Sulfate (morphine) 2 mg Q4H PRN IV SEVERE PAIN LEVEL 7-10 Last administered on 03/04/17 12:16; Admin Dose 2 MG; Start 02/28/17 at 19:00 Doxycycline Hyclate (Vibramycin) 100 mg BID PO Last administered on 03/05/17 09:01; Admin Dose 100 MG; Start 03/03/17 at 21:00; Stop 03/09/17 at 23:59 Apixaban (Eliquis) 2.5 mg BID PO Last administered on 03/05/17 09:03; Admin Dose 2.5 MG; Start 03/04/17 at 21:00 Hydrocodone Bit/ Homatropine Methylb (Hycodan Liquid) 10 ml TID PO Last administered on 03/05/17 12:14; Admin Dose 10 ML; Start 03/04/17 at 13:00 LUBA EARLY Mar 05, 2017 17:47
--- NOTE | 2017-03-05 20:35 | CONS ---
Date/Time of Note Date/Time of Note DATE: 03/05/17 TIME: 20:32 Assessment/Plan Assessment/Plan Chief Complaint/Hosp Course IMPRESSION: 1. Chest pain. Assess for acute coronary syndrome in a patient with lung cancer, undergoing chemotherapy, likely secondary to lung cancer.-negative trop x3/no recurrent chest pain at this time 2. Abnormal electrocardiogram with nonspecific ST and T-wave abnormalities, assess for acute coronary syndrome. 3. Bradycardia, transient while on beta matthew. 4. Hypotension-improved 5. Shortness of rmfqmz-boeq-lsogcxsgyul PNA 6. Lung cancer with ongoing chemotherapy. 7. Leukocytosis. 8. Anemia. 9. Thrombocytopenia-stable 10.DVT-RUE on eliquis 11. Renal failure-ongoing s 12. 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 closely -Continue marinol for decreased appetite -Contine intermittent albumin -Continue voriconazole Problems: Consultation Date/Type/Reason Admit Date/Time Jan 31, 2017 at 18:59 Initial Consult Date 02/01/17 Type of Consultation: cardiology Reason for Consultation CHF Referring Provider: MARYAM FARMER MD Exam/Review of Systems Vital Signs Vitals Vital Signs Date Time Temp Pulse Resp B/P Pulse Ox O2 Delivery O2 Flow Rate FiO2 03/05/17 20:05 95 03/05/17 19:51 20 95 Nasal Cannula 4.0 03/05/17 19:48 98.9 107/60 03/04/17 05:11 50 Intake and Output 03/04/17 03/04/17 03/05/17 15:00 23:00 07:00 Intake Total 900 ml 400 ml Balance 900 ml 400 ml Exam Review of Systems: CONSTITUTIONAL: No fevers, chills. PULMONARY: ongoing sob CARDIOVASCULAR: No chest pain/palpitations GASTROINTESTINAL: No nausea/vomiting. GENITOURINARY: No hematuria/dysuria. MUSCULOSKELETAL: No myagias/arthalgias. PSYCHIATRIC: The patient denies depression. NEUROLOGIC: No weakness Constitutional: alert Psych: no complaints Head: normocephalic ENMT: mucosa pink and moist Neck: jvd (9 cm water), supple Respiratory: diminished breath sounds (at bases/B) Cardiovascular: regular rate and rhythm Gastrointestinal: non-tender, soft Musculoskeletal: muscle tone (normal) Extremities: edema (none) Neurological: other (No focal deficits) Results Result Diagram: 03/05/17 0846 03/05/17 0846 Results 24 hrs Laboratory Tests Test 03/05/17 08:46 White Blood Count 4.8 Red Blood Count 2.86 L Hemoglobin 9.1 L Hematocrit 29.9 L Mean Corpuscular Volume 104.5 H Mean Corpuscular Hemoglobin 31.8 Mean Corpuscular Hemoglobin Concent 30.4 L Red Cell Distribution Width 14.3 Platelet Count 126 L Mean Platelet Volume 10.5 H Neutrophils % 72.3 Lymphocytes % 14.3 L Monocytes % 9.7 Eosinophils % 2.7 Basophils % 0.6 Nucleated Red Blood Cells % 0.0 Neutrophils # 3.4 Lymphocytes # 0.7 L Monocytes # 0.5 Eosinophils # 0.1 Basophils # 0.0 Nucleated Red Blood Cells # 0.0 Sodium Level 140 Potassium Level 4.0 Chloride Level 99 Carbon Dioxide Level 35 H Anion Gap 10 Blood Urea Nitrogen 16 Creatinine 1.51 H Glucose Level 101 Calcium Level 8.8 Medications Medications Current Medications Atorvastatin Calcium (Lipitor) 20 mg QHS PO Last administered on 03/04/17 20: 45; Admin Dose 20 MG; Start 01/31/17 at 21:00 Escitalopram Oxalate (Lexapro) 10 mg DAILY PO Last administered on 03/05/17 09 :02; Admin Dose 10 MG; Start 02/01/17 at 09:00 Ondansetron HCl (Zofran Inj) 4 mg Q6 PRN IV NAUSEA Last administered on 07:39; Admin Dose 4 MG; Start 01/31/17 at 19:30 Morphine Sulfate (Ms Contin (Er)) 15 mg BID PO Last administered on 03/05/17 09:01; Admin Dose 15 MG; Start 01/31/17 at 23:00 Nitroglycerin (Nitroglycerin (Sl Tab) 0.4 Mg) 1 tab Q5M PRN SL ANGINA Last administered on 02/19/17 19:48; Admin Dose 1 TAB; Start 02/01/17 at 11:30 Pantoprazole (Protonix Tab) 40 mg DAILY@06 PO Last administered on 03/05/17 05 :59; Admin Dose 40 MG; Start 02/02/17 at 06:00 Voriconazole (Vfend) 200 mg BID PO Last administered on 03/05/17 09:03; Admin Dose 200 MG; Start 02/01/17 at 21:00 Senna (Senokot) 1 tab DAILY PRN PO CONSTIPATION Last administered on 03/05/17 09:01; Admin Dose 1 TAB; Start 02/02/17 at 16:00 Lactulose (Enulose) 20 gm DAILY PRN PO CONSTIPATION; Start 02/02/17 at 16:00 IV Flush (NS 10 ml) 10 ml PRN PRN IV IV PROTOCOL; Start 02/06/17 at 20:00 Oxymetazoline HCl (Afrin [place]) 2 spray BID NASAL Last administered on 09:03; Admin Dose 2 SPRAY; Start 02/07/17 at 15:00 Furosemide (Lasix) 40 mg DAILY PO Last administered on 03/05/17 09:02; Admin Dose 40 MG; Start 02/19/17 at 09:00 Potassium Chloride (Klor-Con 20) 20 meq BID PO Last administered on 03/05/17 09:01; Admin Dose 20 MEQ; Start 02/27/17 at 21:00 Morphine Sulfate (morphine) 2 mg Q4H PRN IV SEVERE PAIN LEVEL 7-10 Last administered on 03/04/17 12:16; Admin Dose 2 MG; Start 02/28/17 at 19:00 Doxycycline Hyclate (Vibramycin) 100 mg BID PO Last administered on 03/05/17 09:01; Admin Dose 100 MG; Start 03/03/17 at 21:00; Stop 03/09/17 at 23:59 Apixaban (Eliquis) 2.5 mg BID PO Last administered on 03/05/17 09:03; Admin Dose 2.5 MG; Start 03/04/17 at 21:00 Hydrocodone Bit/ Homatropine Methylb (Hycodan Liquid) 10 ml TID PO Last administered on 03/05/17 12:14; Admin Dose 10 ML; Start 03/04/17 at 13:00 MARIAA ÁLVAREZ Mar 05, 2017 20:35
[2017-03-05] MEDS: ATORVASTATIN 20 MG TAB PO SCH (21:07)
[2017-03-05] MEDS: morphine 4 MG/ML VIAL IV PRN (23:18)
[2017-03-06] VITALS (14 sets, daily range): BP systolic 102–124; BP diastolic 56–71; PULSE 80–97; RESP 19–21
[2017-03-06] MEDS: LEVALBUTEROL (NEB) 0.63 MG/3 ML AMP HHN SCH ×4 (01:19→19:52)
[2017-03-06] MEDS: FUROSEMIDE 40 MG TAB PO SCH ×2 (06:00→18:12)
[2017-03-06] MEDS: PANTOPRAZOLE (EC) 40 MG TAB PO SCH (06:00)
[2017-03-06 07:27] LABS: ABNORMAL IP MESSAGE 1; BASOPHILS % 0.6 % (0.0-2.0); EOSINOPHILS # 0.1 10^3/ul (0.0-0.5); EOSINOPHILS % 2.6 % (0.0-7.0); HEMOGLOBIN 8.7 g/dl (14.0-18.0); LYMPHOCYTES # 0.6 10^3/ul (0.8-2.9); LYMPHOCYTES % 10.6 % (15.0-51.0); MEAN CORPUSCULAR HEMOGLOBIN 32.8 pg (29.0-33.0); MEAN CORPUSCULAR HGB CONC 31.1 g/dl (32.0-37.0); MEAN CORPUSCULAR VOLUME 105.7 fl (82.0-101.0); MEAN PLATELET VOLUME 11.1 fl (7.4-10.4); MONOCYTE # 0.7 10^3/ul (0.3-0.9); MONOCYTES % 12.3 % (0.0-11.0); NEUTROPHIL # 3.9 10^3/ul (1.6-7.5); NEUTROPHILS % 73.7 % (39.0-77.0); PLATELET COUNT 122 10^3/UL (140-415); POSITIVE DIFF @See below; RED BLOOD COUNT 2.65 10^6/ul (4.70-6.10); WHITE BLOOD COUNT 5.3 10^3/ul (4.8-10.8)
[2017-03-06 07:52] LABS: CALCIUM 8.7 mg/dl (8.4-10.2); CREATININE 1.61 mg/dl (0.61-1.24); POTASSIUM 4.2 mmol/L (3.5-5.1)
[2017-03-06] MEDS: APIXABAN 5 MG TABLET PO SCH ×2 (09:03→21:51)
[2017-03-06] MEDS: HYDROCODONE/HOMATROPINE 5ML CUP PO SCH ×3 (09:03→21:49)
[2017-03-06] MEDS: DRONABINOL 2.5 MG CAP PO SCH ×3 (09:03→18:12)
[2017-03-06] MEDS: morphine (ER) 15 MG TAB PO SCH ×2 (09:04→21:50)
[2017-03-06] MEDS: POTASSIUM CHLORIDE (SR) 20 MEQ TAB PO SCH ×2 (09:04→21:50)
[2017-03-06] MEDS: ESCITALOPRAM 10 MG TAB PO SCH (09:05)
[2017-03-06] MEDS: LEVOTHYROXINE 75 MCG TAB PO SCH (09:05)
[2017-03-06] MEDS: VORICONAZOLE 200 MG TAB PO SCH ×2 (09:06→21:50)
[2017-03-06] MEDS: DOXYCYCLINE 100 MG TAB PO SCH ×2 (09:06→21:50)
[2017-03-06] MEDS: OXYMETAZOLINE 0.05% 15 ML NAS SPRAY NASAL SCH ×2 (09:07→21:49)
--- NOTE | 2017-03-06 10:29 | CONS ---
Date/Time of Note Date/Time of Note DATE: 03/06/17 TIME: 10:27 Assessment/Plan Assessment/Plan Additional Assessment/Plan 1. Chest pain. Assess for acute coronary syndrome in a patient with lung cancer, undergoing chemotherapy, likely secondary to lung cancer.-negative trop x3/no recurrent chest pain at this time - stable now, no CP noted 2. Abnormal electrocardiogram with nonspecific ST and T-wave abnormalities, assess for acute coronary syndrome. 3. Bradycardia, transient while on beta matthew. NO indication for pacer. 4. Hypotension-improved 5. Shortness of mohtfg-zoka-isvzpcduzzw PNA - on anti-Bx. 6. Lung cancer with ongoing chemotherapy. 7. Leukocytosis. 8. Anemia. 9. Thrombocytopenia-stable 10.DVT-RUE on eliquis 11. Renal failure-ongoing s 12. CHF-worsening edema Consultation Date/Type/Reason Admit Date/Time Jan 31, 2017 at 18:59 Initial Consult Date 02/01/17 Type of Consultation: cardiology Referring Provider: MARYAM FARMER MD 24 HR Interval Summary Free Text/Dictation NO acute events - BP in good range - will monitor clinically now. ROS: No fever, no chills, no nausea, no vomiting, no diarrhea/constipation No recent weight changes No chest pain, no PND, no orthopnea + SOB No dizziness, blurred vision No thirst, no heat or cold intolerance Exam/Review of Systems Vital Signs Vitals Vital Signs Date Time Temp Pulse Resp B/P Pulse Ox O2 Delivery O2 Flow Rate FiO2 03/06/17 09:15 92 20 97 Nasal Cannula 4.0 03/06/17 08:03 98.8 107/65 03/06/17 03:05 5 Intake and Output 03/05/17 03/05/17 03/06/17 15:00 23:00 07:00 Intake Total 1000 ml 800 ml Output Total 700 ml Balance 1000 ml 100 ml Exam General: WN/WD/NAD, AOx 2-3 HEENT: Unicetric/atraumatic/EOMI (follows commands) NECK: JVD elevated, no thyromegaly Lymph: no lymphadenopathy HEART: regular with no S3, II/ systolic murmur at apex LUNGS: Coarse sounds ABD: soft, NT, ND, +BS : Intact Neuro: non focal SKIN: chronic changes EXT: trace edema Results Result Diagram: 03/06/17 0652 03/06/17 0652 Results 24 hrs Laboratory Tests Test 03/06/17 06:52 White Blood Count 5.3 Red Blood Count 2.65 L Hemoglobin 8.7 L Hematocrit 28.0 L Mean Corpuscular Volume 105.7 H Mean Corpuscular Hemoglobin 32.8 Mean Corpuscular Hemoglobin Concent 31.1 L Red Cell Distribution Width 14.0 Platelet Count 122 L Mean Platelet Volume 11.1 H Neutrophils % 73.7 Lymphocytes % 10.6 L Monocytes % 12.3 H Eosinophils % 2.6 Basophils % 0.6 Nucleated Red Blood Cells % 0.0 Neutrophils # 3.9 Lymphocytes # 0.6 L Monocytes # 0.7 Eosinophils # 0.1 Basophils # 0.0 Nucleated Red Blood Cells # 0.0 Sodium Level 138 Potassium Level 4.2 Chloride Level 96 L Carbon Dioxide Level 37 H Anion Gap 9 Blood Urea Nitrogen 18 Creatinine 1.61 H Glucose Level 87 Calcium Level 8.7 Medications Medications Current Medications Atorvastatin Calcium (Lipitor) 20 mg QHS PO Last administered on 03/05/17 21: 07; Admin Dose 20 MG; Start 01/31/17 at 21:00 Escitalopram Oxalate (Lexapro) 10 mg DAILY PO Last administered on 03/06/17 09:05; Admin Dose 10 MG; Start 02/01/17 at 09:00 Ondansetron HCl (Zofran Inj) 4 mg Q6 PRN IV NAUSEA Last administered on 07:39; Admin Dose 4 MG; Start 01/31/17 at 19:30 Morphine Sulfate (Ms Contin (Er)) 15 mg BID PO Last administered on 03/06/17 09:04; Admin Dose 15 MG; Start 01/31/17 at 23:00 Nitroglycerin (Nitroglycerin (Sl Tab) 0.4 Mg) 1 tab Q5M PRN SL ANGINA Last administered on 02/19/17 19:48; Admin Dose 1 TAB; Start 02/01/17 at 11:30 Pantoprazole (Protonix Tab) 40 mg DAILY@06 PO Last administered on 03/06/17 06:00; Admin Dose 40 MG; Start 02/02/17 at 06:00 Voriconazole (Vfend) 200 mg BID PO Last administered on 03/06/17 09:06; Admin Dose 200 MG; Start 02/01/17 at 21:00 Senna (Senokot) 1 tab DAILY PRN PO CONSTIPATION Last administered on 03/05/17 21:14; Admin Dose 1 TAB; Start 02/02/17 at 16:00 Lactulose (Enulose) 20 gm DAILY PRN PO CONSTIPATION; Start 02/02/17 at 16:00 IV Flush (NS 10 ml) 10 ml PRN PRN IV IV PROTOCOL; Start 02/06/17 at 20:00 Oxymetazoline HCl (Afrin [place]) 2 spray BID NASAL Last administered on 09:07; Admin Dose 2 SPRAY; Start 02/07/17 at 15:00 Potassium Chloride (Klor-Con 20) 20 meq BID PO Last administered on 03/06/17 09:04; Admin Dose 20 MEQ; Start 02/27/17 at 21:00 Morphine Sulfate (morphine) 2 mg Q4H PRN IV SEVERE PAIN LEVEL 7-10 Last administered on 03/05/17 23:18; Admin Dose 2 MG; Start 02/28/17 at 19:00 Doxycycline Hyclate (Vibramycin) 100 mg BID PO Last administered on 03/06/17 09:06; Admin Dose 100 MG; Start 03/03/17 at 21:00; Stop 03/09/17 at 23:59 Apixaban (Eliquis) 2.5 mg BID PO Last administered on 03/06/17 09:03; Admin Dose 2.5 MG; Start 03/04/17 at 21:00 Hydrocodone Bit/ Homatropine Methylb (Hycodan Liquid) 10 ml TID PO Last administered on 03/06/17 09:03; Admin Dose 10 ML; Start 03/04/17 at 13:00 Furosemide (Lasix) 40 mg BID@18 PO Last administered on 03/06/17 06:00; Admin Dose 40 MG; Start 03/05/17 at 21:00 FRANCIS ESPINAL MD Mar 06, 2017 10:28
--- NOTE | 2017-03-06 11:37 | CONS ---
Date/Time of Note Date/Time of Note DATE: 03/06/17 TIME: 11:34 Assessment/Plan Assessment/Plan Additional Assessment/Plan Assessment and recommendations; 1. Patient admitted with right-sided pneumonia due to extensive lung cancer with significant postobstructive element. 2. COPD. 3. Chronic renal insufficiency. 4. Left upper extremity DVT. 5. Depression. Next 6. Anemia and thrombocytopenia. 7. Hypoxemic and hypercapnic respiratory failure. Continue current treatment. Consider discharge. Patient would qualify for BiPAP to be used at home. Overall prognosis remains poor. Consultation Date/Type/Reason Admit Date/Time Jan 31, 2017 at 18:59 Initial Consult Date 02/01/17 Type of Consultation: Pulmonary Referring Provider: MARYAM FARMER MD 24 HR Interval Summary Free Text/Dictation Patient's condition is stable. Reports slightly improved shortness of breath. Still complains of cough with occasional hemoptysis. General exam; elderly male, awake and alert. Currently in no distress. Exam/Review of Systems Vital Signs Vitals Vital Signs Date Time Temp Pulse Resp B/P Pulse Ox O2 Delivery O2 Flow Rate FiO2 03/06/17 09:15 92 20 97 Nasal Cannula 4.0 03/06/17 08:03 98.8 107/65 03/06/17 03:05 5 Intake and Output 03/05/17 03/05/17 03/06/17 15:00 23:00 07:00 Intake Total 1000 ml 800 ml Output Total 700 ml Balance 1000 ml 100 ml Exam HEENT exam; supple neck, no JVD. No lymphadenopathy. Midline trachea. No thyromegaly. Patient has fair dentition. Patient is a low patient. Chest exam; improved breath sounds right lung. Left lung is clear to auscultation. S1-S2 audible, no murmurs. Regular rhythm. Abdomen exam; soft, protuberant. Nontender. No organomegaly. Bowel sounds audible. Extremity exam; trace edema in lower extremities. Pulses 1+ bilaterally. No clubbing. [employer] exam; no focal deficit. Results Result Diagram: 03/06/17 0652 03/06/17 0652 Results 24 hrs Laboratory Tests Test 03/06/17 06:52 White Blood Count 5.3 Red Blood Count 2.65 L Hemoglobin 8.7 L Hematocrit 28.0 L Mean Corpuscular Volume 105.7 H Mean Corpuscular Hemoglobin 32.8 Mean Corpuscular Hemoglobin Concent 31.1 L Red Cell Distribution Width 14.0 Platelet Count 122 L Mean Platelet Volume 11.1 H Neutrophils % 73.7 Lymphocytes % 10.6 L Monocytes % 12.3 H Eosinophils % 2.6 Basophils % 0.6 Nucleated Red Blood Cells % 0.0 Neutrophils # 3.9 Lymphocytes # 0.6 L Monocytes # 0.7 Eosinophils # 0.1 Basophils # 0.0 Nucleated Red Blood Cells # 0.0 Sodium Level 138 Potassium Level 4.2 Chloride Level 96 L Carbon Dioxide Level 37 H Anion Gap 9 Blood Urea Nitrogen 18 Creatinine 1.61 H Glucose Level 87 Calcium Level 8.7 Medications Medications Current Medications Atorvastatin Calcium (Lipitor) 20 mg QHS PO Last administered on 03/05/17 21: 07; Admin Dose 20 MG; Start 01/31/17 at 21:00 Escitalopram Oxalate (Lexapro) 10 mg DAILY PO Last administered on 03/06/17 09:05; Admin Dose 10 MG; Start 02/01/17 at 09:00 Ondansetron HCl (Zofran Inj) 4 mg Q6 PRN IV NAUSEA Last administered on 07:39; Admin Dose 4 MG; Start 01/31/17 at 19:30 Morphine Sulfate (Ms Contin (Er)) 15 mg BID PO Last administered on 03/06/17 09:04; Admin Dose 15 MG; Start 01/31/17 at 23:00 Nitroglycerin (Nitroglycerin (Sl Tab) 0.4 Mg) 1 tab Q5M PRN SL ANGINA Last administered on 02/19/17 19:48; Admin Dose 1 TAB; Start 02/01/17 at 11:30 Pantoprazole (Protonix Tab) 40 mg DAILY@06 PO Last administered on 03/06/17 06:00; Admin Dose 40 MG; Start 02/02/17 at 06:00 Voriconazole (Vfend) 200 mg BID PO Last administered on 03/06/17 09:06; Admin Dose 200 MG; Start 02/01/17 at 21:00 Senna (Senokot) 1 tab DAILY PRN PO CONSTIPATION Last administered on 03/05/17 21:14; Admin Dose 1 TAB; Start 02/02/17 at 16:00 Lactulose (Enulose) 20 gm DAILY PRN PO CONSTIPATION; Start 02/02/17 at 16:00 IV Flush (NS 10 ml) 10 ml PRN PRN IV IV PROTOCOL; Start 02/06/17 at 20:00 Oxymetazoline HCl (Afrin [place]) 2 spray BID NASAL Last administered on 09:07; Admin Dose 2 SPRAY; Start 02/07/17 at 15:00 Potassium Chloride (Klor-Con 20) 20 meq BID PO Last administered on 03/06/17 09:04; Admin Dose 20 MEQ; Start 02/27/17 at 21:00 Morphine Sulfate (morphine) 2 mg Q4H PRN IV SEVERE PAIN LEVEL 7-10 Last administered on 03/05/17 23:18; Admin Dose 2 MG; Start 02/28/17 at 19:00 Doxycycline Hyclate (Vibramycin) 100 mg BID PO Last administered on 03/06/17 09:06; Admin Dose 100 MG; Start 03/03/17 at 21:00; Stop 03/09/17 at 23:59 Apixaban (Eliquis) 2.5 mg BID PO Last administered on 03/06/17 09:03; Admin Dose 2.5 MG; Start 03/04/17 at 21:00 Hydrocodone Bit/ Homatropine Methylb (Hycodan Liquid) 10 ml TID PO Last administered on 03/06/17 09:03; Admin Dose 10 ML; Start 03/04/17 at 13:00 Furosemide (Lasix) 40 mg BID@,18 PO Last administered on 03/06/17 06:00; Admin Dose 40 MG; Start 03/05/17 at 21:00 ISMA CUTLER Mar 06, 2017 11:37
[2017-03-06] MEDS: morphine 4 MG/ML VIAL IV PRN (13:31)
--- NOTE | 2017-03-06 13:48 | PN ---
Date/Time of Note Date/Time of Note DATE: 03/06/17 TIME: 13:45 Assessment/Plan VTE Prophylaxis VTE Prophylaxis Intervention: SCD's Lines/Catheters [facility] PICC Line Central line still needed: Yes Urinary Cath still in place: No Assessment/Plan Chief Complaint/Hosp Course Patient is lethargic but easily arousable, awake, alert, continues on supplemental oxygen during the day and BiPAP at night. Patient needs Bipap at home arranged prior to d/c, will qualify based on hypercapnia, does not need sleep study. Assessment/Plan - Paronychia, MSSA, cont abx per ID. - LIZ, Dr. Irving is following in nephrology consultation. - Post-obstructive pneumonia Dr. Philly perry is following infection disease consultation. Status post treatment with antibiotics. - Advanced non-small cell lung CA, Dr. Scanlon is following in oncology consultation. - Acute respiratory failure secondary to above. is following in pulmonology consultation. - Nonocclusive deep venous thrombosis bilateral upper extremities. Continue Eliquis. - Acute on chronic diastolic congestive heart failure, continue gentle diuresis , continue to monitor electrolytes. - h/o fungal pneumonia, on maintenance voriconazole - CAD, continue aspirin. - Hyperlipidemia, continue statin - Hypothyroidism, continue levothyroxine. - Paroxysmal atrial fibrillation, controlled rate, patient is continued on Eliquis. Further recommendations based on clinical course. Plan of care discussed with Dr. Lincoln. Problems: Exam/Review of Systems Vital Signs Vitals Vital Signs Date Time Temp Pulse Resp B/P Pulse Ox O2 Delivery O2 Flow Rate FiO2 03/06/17 12:06 93 03/06/17 11:33 98.6 19 124/71 100 03/06/17 09:15 Nasal Cannula 4.0 03/06/17 03:05 5 Intake and Output 03/05/17 03/05/17 03/06/17 15:00 23:00 07:00 Intake Total 1000 ml 800 ml Output Total 700 ml Balance 1000 ml 100 ml Results Result Diagram: 03/06/17 0652 03/06/17 0652 Results 24 hrs Laboratory Tests Test 03/06/17 06:52 White Blood Count 5.3 Red Blood Count 2.65 L Hemoglobin 8.7 L Hematocrit 28.0 L Mean Corpuscular Volume 105.7 H Mean Corpuscular Hemoglobin 32.8 Mean Corpuscular Hemoglobin Concent 31.1 L Red Cell Distribution Width 14.0 Platelet Count 122 L Mean Platelet Volume 11.1 H Neutrophils % 73.7 Lymphocytes % 10.6 L Monocytes % 12.3 H Eosinophils % 2.6 Basophils % 0.6 Nucleated Red Blood Cells % 0.0 Neutrophils # 3.9 Lymphocytes # 0.6 L Monocytes # 0.7 Eosinophils # 0.1 Basophils # 0.0 Nucleated Red Blood Cells # 0.0 Sodium Level 138 Potassium Level 4.2 Chloride Level 96 L Carbon Dioxide Level 37 H Anion Gap 9 Blood Urea Nitrogen 18 Creatinine 1.61 H Glucose Level 87 Calcium Level 8.7 Medications Medications Current Medications Atorvastatin Calcium (Lipitor) 20 mg QHS PO Last administered on 03/05/17 21: 07; Admin Dose 20 MG; Start 01/31/17 at 21:00 Escitalopram Oxalate (Lexapro) 10 mg DAILY PO Last administered on 03/06/17 09:05; Admin Dose 10 MG; Start 02/01/17 at 09:00 Ondansetron HCl (Zofran Inj) 4 mg Q6 PRN IV NAUSEA Last administered on 07:39; Admin Dose 4 MG; Start 01/31/17 at 19:30 Morphine Sulfate (Ms Contin (Er)) 15 mg BID PO Last administered on 03/06/17 09:04; Admin Dose 15 MG; Start 01/31/17 at 23:00 Nitroglycerin (Nitroglycerin (Sl Tab) 0.4 Mg) 1 tab Q5M PRN SL ANGINA Last administered on 02/19/17 19:48; Admin Dose 1 TAB; Start 02/01/17 at 11:30 Pantoprazole (Protonix Tab) 40 mg DAILY@06 PO Last administered on 03/06/17 06:00; Admin Dose 40 MG; Start 02/02/17 at 06:00 Voriconazole (Vfend) 200 mg BID PO Last administered on 03/06/17 09:06; Admin Dose 200 MG; Start 02/01/17 at 21:00 Senna (Senokot) 1 tab DAILY PRN PO CONSTIPATION Last administered on 03/05/17 21:14; Admin Dose 1 TAB; Start 02/02/17 at 16:00 Lactulose (Enulose) 20 gm DAILY PRN PO CONSTIPATION; Start 02/02/17 at 16:00 IV Flush (NS 10 ml) 10 ml PRN PRN IV IV PROTOCOL; Start 02/06/17 at 20:00 Oxymetazoline HCl (Afrin [place]) 2 spray BID NASAL Last administered on 09:07; Admin Dose 2 SPRAY; Start 02/07/17 at 15:00 Potassium Chloride (Klor-Con 20) 20 meq BID PO Last administered on 03/06/17 09:04; Admin Dose 20 MEQ; Start 02/27/17 at 21:00 Morphine Sulfate (morphine) 2 mg Q4H PRN IV SEVERE PAIN LEVEL 7-10 Last administered on 03/06/17 13:31; Admin Dose 2 MG; Start 02/28/17 at 19:00 Doxycycline Hyclate (Vibramycin) 100 mg BID PO Last administered on 03/06/17 09:06; Admin Dose 100 MG; Start 03/03/17 at 21:00; Stop 03/09/17 at 23:59 Apixaban (Eliquis) 2.5 mg BID PO Last administered on 03/06/17 09:03; Admin Dose 2.5 MG; Start 03/04/17 at 21:00 Hydrocodone Bit/ Homatropine Methylb (Hycodan Liquid) 10 ml TID PO Last administered on 03/06/17 13:29; Admin Dose 10 ML; Start 03/04/17 at 13:00 Furosemide (Lasix) 40 mg BID@,18 PO Last administered on 03/06/17 06:00; Admin Dose 40 MG; Start 03/05/17 at 21:00 LUBA EARLY Mar 06, 2017 13:48
--- NOTE | 2017-03-06 17:20 | CONS ---
Date/Time of Note Date/Time of Note DATE: 03/06/17 TIME: 17:19 Assessment/Plan Assessment/Plan Additional Assessment/Plan 1. Anasarca- Fluid overload multifactorial s/p Diuresis with IV lasix and IV albumin 2. acute kidney injury 3. post obstructive PNA 4. Advanced non small lung CA 5. acute respiratory failure 6. Right subclavian Deep venous thrombosis 7. acute on chronic diastolic heart failure 8. h/o fungal pneumonia 9. Hyperlipidemia 10. hypothyroidism 11. Metabolic alkalosis Plan: s/p IV albumin with Lasix diureisis-on PO lasix- yesterday lasix was changed to 40mg PO BID- today Cr bumped to 1.6, HCo3 37 today plan is to continue current Lasix dose and monitor electrolytes IV abx as per ID and PMD, renally dose all abx Monitor Electroltyes and replace as needed. Will follow up Consultation Date/Type/Reason Admit Date/Time Jan 31, 2017 at 18:59 Initial Consult Date 02/14/17 Type of Consultation: NEPHROLOG Y Referring Provider: MARYAM FARMER MD 24 HR Interval Summary Free Text/Dictation Lasix changed to 40mg PO BID yesterday, Cr bumped to 1.6 today, Afebrile, Exam/Review of Systems Vital Signs Vitals Vital Signs Date Time Temp Pulse Resp B/P Pulse Ox O2 Delivery O2 Flow Rate FiO2 03/06/17 16:11 97 03/06/17 15:46 98.7 21 116/66 100 03/06/17 14:03 4.0 03/06/17 14:03 Nasal Cannula 03/06/17 03:05 5 Intake and Output 03/05/17 03/05/17 03/06/17 15:00 23:00 07:00 Intake Total 1000 ml 800 ml Output Total 700 ml Balance 1000 ml 100 ml Exam Constitutional: alert Respiratory: clear to auscultation, diminished breath sounds, normal air movement Cardiovascular: nl pulses, regular rate and rhythm Gastrointestinal: non-tender, soft Musculoskeletal: , 1 to 2 + edema ) Neurological: WARDSPERSON II-XII intact, nl mental status Results Result Diagram: 03/06/17 0652 03/06/17 0652 Results 24 hrs Laboratory Tests Test 03/06/17 06:52 White Blood Count 5.3 Red Blood Count 2.65 L Hemoglobin 8.7 L Hematocrit 28.0 L Mean Corpuscular Volume 105.7 H Mean Corpuscular Hemoglobin 32.8 Mean Corpuscular Hemoglobin Concent 31.1 L Red Cell Distribution Width 14.0 Platelet Count 122 L Mean Platelet Volume 11.1 H Neutrophils % 73.7 Lymphocytes % 10.6 L Monocytes % 12.3 H Eosinophils % 2.6 Basophils % 0.6 Nucleated Red Blood Cells % 0.0 Neutrophils # 3.9 Lymphocytes # 0.6 L Monocytes # 0.7 Eosinophils # 0.1 Basophils # 0.0 Nucleated Red Blood Cells # 0.0 Sodium Level 138 Potassium Level 4.2 Chloride Level 96 L Carbon Dioxide Level 37 H Anion Gap 9 Blood Urea Nitrogen 18 Creatinine 1.61 H Glucose Level 87 Calcium Level 8.7 Medications Medications Current Medications Atorvastatin Calcium (Lipitor) 20 mg QHS PO Last administered on 03/05/17 21: 07; Admin Dose 20 MG; Start 01/31/17 at 21:00 Escitalopram Oxalate (Lexapro) 10 mg DAILY PO Last administered on 03/06/17 09:05; Admin Dose 10 MG; Start 02/01/17 at 09:00 Ondansetron HCl (Zofran Inj) 4 mg Q6 PRN IV NAUSEA Last administered on 07:39; Admin Dose 4 MG; Start 01/31/17 at 19:30 Morphine Sulfate (Ms Contin (Er)) 15 mg BID PO Last administered on 03/06/17 09:04; Admin Dose 15 MG; Start 01/31/17 at 23:00 Nitroglycerin (Nitroglycerin (Sl Tab) 0.4 Mg) 1 tab Q5M PRN SL ANGINA Last administered on 02/19/17 19:48; Admin Dose 1 TAB; Start 02/01/17 at 11:30 Pantoprazole (Protonix Tab) 40 mg DAILY@06 PO Last administered on 03/06/17 06:00; Admin Dose 40 MG; Start 02/02/17 at 06:00 Voriconazole (Vfend) 200 mg BID PO Last administered on 03/06/17 09:06; Admin Dose 200 MG; Start 02/01/17 at 21:00 Senna (Senokot) 1 tab DAILY PRN PO CONSTIPATION Last administered on 03/05/17 21:14; Admin Dose 1 TAB; Start 02/02/17 at 16:00 Lactulose (Enulose) 20 gm DAILY PRN PO CONSTIPATION; Start 02/02/17 at 16:00 IV Flush (NS 10 ml) 10 ml PRN PRN IV IV PROTOCOL; Start 02/06/17 at 20:00 Oxymetazoline HCl (Afrin [place]) 2 spray BID NASAL Last administered on 09:07; Admin Dose 2 SPRAY; Start 02/07/17 at 15:00 Potassium Chloride (Klor-Con 20) 20 meq BID PO Last administered on 03/06/17 09:04; Admin Dose 20 MEQ; Start 02/27/17 at 21:00 Morphine Sulfate (morphine) 2 mg Q4H PRN IV SEVERE PAIN LEVEL 7-10 Last administered on 03/06/17 13:31; Admin Dose 2 MG; Start 02/28/17 at 19:00 Doxycycline Hyclate (Vibramycin) 100 mg BID PO Last administered on 03/06/17 09:06; Admin Dose 100 MG; Start 03/03/17 at 21:00; Stop 03/09/17 at 23:59 Apixaban (Eliquis) 2.5 mg BID PO Last administered on 03/06/17 09:03; Admin Dose 2.5 MG; Start 03/04/17 at 21:00 Hydrocodone Bit/ Homatropine Methylb (Hycodan Liquid) 10 ml TID PO Last administered on 03/06/17 13:29; Admin Dose 10 ML; Start 03/04/17 at 13:00 Furosemide (Lasix) 40 mg BID@,18 PO Last administered on 03/06/17 06:00; Admin Dose 40 MG; Start 03/05/17 at 21:00 MELODY JENSEN MD Mar 06, 2017 17:20
--- NOTE | 2017-03-06 18:59 | CONS ---
Date/Time of Note Date/Time of Note DATE: 03/06/17 TIME: 18:57 Assessment/Plan Assessment/Plan Chief Complaint/Hosp Course - h/o sepsis due to recurrent pneumonia, and to a lessor degree due to paronychia. 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 Aspergillus antibody was >1:64 but aspergillus antigen in serum by EIA was negative during his last admission. - macrocytic anemia - thrombocytopenia - h/o DVT of b/l UEs - b/l knee pain due to DJD - h/o post-obstructive pneumonia - h/o HTN, CAD, hyperlipidemia - h/o paroxysmal A fib - h/o hypothyroidism with elevated TSH level - HIV negative in 2013 - nonocclusive thrombus around the PICC catheter within the left brachial vein, axillary vein and subclavian vein per doppler 02/13/2017 recommendations: - continue PO doxycycline (Pt received vancomycin 02/27/2017-03/03/2017) until - if available I recommend hand or plastic surgery consult re. total or near detachment of multiple nail - I instructed Pt to stop peeling the nail and pressing the nail bed. Hand hygiene discussed with Pt and - continue voriconazole for chronic suppression of aspergillus given his immunocompromised state; monitor LFTs weekly, last checked on 03/03/2017 management d/w Pt, his Problems: Consultation Date/Type/Reason Admit Date/Time Jan 31, 2017 at 18:59 Initial Consult Date 02/14/17 Type of Consultation: NEPHROLOG Y Referring Provider: MARYAM FARMER MD 24 HR Interval Summary Constitutional: no complaints Detailed Summary Eyes: no complaints ENT: no complaints Respiratory: cough, shortness of breath, No sputum Cardiovascular: no complaints Gastrointestinal: no complaints Genitourinary: no complaints Musculoskeletal: no complaints Skin: skin lesions (nail detachment of multiple fingers. nail changes due to chemo), No erythema Neurologic: no complaints Exam/Review of Systems Vital Signs Vitals Vital Signs Date Time Temp Pulse Resp B/P Pulse Ox O2 Delivery O2 Flow Rate FiO2 03/06/17 16:11 97 03/06/17 15:46 98.7 21 116/66 100 03/06/17 14:03 4.0 03/06/17 14:03 Nasal Cannula 03/06/17 03:05 5 Intake and Output 03/05/17 03/05/17 03/06/17 15:00 23:00 07:00 Intake Total 1000 ml 800 ml Output Total 700 ml Balance 1000 ml 100 ml Exam Constitutional: frail, obese Psych: nl mood/affect, no complaints Head: other (alopecia) Eyes: nl conjunctiva, nl lids ENMT: nl external ears & nose Respiratory: diminished breath sounds, wheezing Cardiovascular: nl pulses, regular rate and rhythm Gastrointestinal: non-tender, soft Musculoskeletal: nl extremities to inspection Extremities: No edema Neurological: GRAPHICS SPECIALIST II-XII intact, nl mental status, nl speech Skin: rash or lesions (nail detachment, no purulence. L 2nd fingernail is removed. Scabbed) Results Result Diagram: 03/06/17 0652 03/06/17 0652 Results 24 hrs Laboratory Tests Test 03/06/17 06:52 White Blood Count 5.3 Red Blood Count 2.65 L Hemoglobin 8.7 L Hematocrit 28.0 L Mean Corpuscular Volume 105.7 H Mean Corpuscular Hemoglobin 32.8 Mean Corpuscular Hemoglobin Concent 31.1 L Red Cell Distribution Width 14.0 Platelet Count 122 L Mean Platelet Volume 11.1 H Neutrophils % 73.7 Lymphocytes % 10.6 L Monocytes % 12.3 H Eosinophils % 2.6 Basophils % 0.6 Nucleated Red Blood Cells % 0.0 Neutrophils # 3.9 Lymphocytes # 0.6 L Monocytes # 0.7 Eosinophils # 0.1 Basophils # 0.0 Nucleated Red Blood Cells # 0.0 Sodium Level 138 Potassium Level 4.2 Chloride Level 96 L Carbon Dioxide Level 37 H Anion Gap 9 Blood Urea Nitrogen 18 Creatinine 1.61 H Glucose Level 87 Calcium Level 8.7 Medications Medications Current Medications Atorvastatin Calcium (Lipitor) 20 mg QHS PO Last administered on 03/05/17 21: 07; Admin Dose 20 MG; Start 01/31/17 at 21:00 Escitalopram Oxalate (Lexapro) 10 mg DAILY PO Last administered on 03/06/17 09:05; Admin Dose 10 MG; Start 02/01/17 at 09:00 Ondansetron HCl (Zofran Inj) 4 mg Q6 PRN IV NAUSEA Last administered on 07:39; Admin Dose 4 MG; Start 01/31/17 at 19:30 Morphine Sulfate (Ms Contin (Er)) 15 mg BID PO Last administered on 03/06/17 09:04; Admin Dose 15 MG; Start 01/31/17 at 23:00 Nitroglycerin (Nitroglycerin (Sl Tab) 0.4 Mg) 1 tab Q5M PRN SL ANGINA Last administered on 02/19/17 19:48; Admin Dose 1 TAB; Start 02/01/17 at 11:30 Pantoprazole (Protonix Tab) 40 mg DAILY@06 PO Last administered on 03/06/17 06:00; Admin Dose 40 MG; Start 02/02/17 at 06:00 Voriconazole (Vfend) 200 mg BID PO Last administered on 03/06/17 09:06; Admin Dose 200 MG; Start 02/01/17 at 21:00 Senna (Senokot) 1 tab DAILY PRN PO CONSTIPATION Last administered on 03/05/17 21:14; Admin Dose 1 TAB; Start 02/02/17 at 16:00 Lactulose (Enulose) 20 gm DAILY PRN PO CONSTIPATION; Start 02/02/17 at 16:00 IV Flush (NS 10 ml) 10 ml PRN PRN IV IV PROTOCOL; Start 02/06/17 at 20:00 Oxymetazoline HCl (Afrin [place]) 2 spray BID NASAL Last administered on 09:07; Admin Dose 2 SPRAY; Start 02/07/17 at 15:00 Potassium Chloride (Klor-Con 20) 20 meq BID PO Last administered on 03/06/17 09:04; Admin Dose 20 MEQ; Start 02/27/17 at 21:00 Morphine Sulfate (morphine) 2 mg Q4H PRN IV SEVERE PAIN LEVEL 7-10 Last administered on 03/06/17 13:31; Admin Dose 2 MG; Start 02/28/17 at 19:00 Doxycycline Hyclate (Vibramycin) 100 mg BID PO Last administered on 03/06/17 09:06; Admin Dose 100 MG; Start 03/03/17 at 21:00; Stop 03/09/17 at 23:59 Apixaban (Eliquis) 2.5 mg BID PO Last administered on 03/06/17 09:03; Admin Dose 2.5 MG; Start 03/04/17 at 21:00 Hydrocodone Bit/ Homatropine Methylb (Hycodan Liquid) 10 ml TID PO Last administered on 03/06/17 13:29; Admin Dose 10 ML; Start 03/04/17 at 13:00 Furosemide (Lasix) 40 mg BID@,18 PO Last administered on 03/06/17 18:12; Admin Dose 40 MG; Start 03/05/17 at 21:00 LUKE CAAL M.D. Mar 06, 2017 18:59
[2017-03-06] MEDS: ATORVASTATIN 20 MG TAB PO SCH (21:50)
[2017-03-07] VITALS (14 sets, daily range): BP systolic 96–153; BP diastolic 51–89; PULSE 79–93; RESP 18–22
[2017-03-07] MEDS: LEVALBUTEROL (NEB) 0.63 MG/3 ML AMP HHN SCH ×4 (01:22→20:05)
[2017-03-07] MEDS: FUROSEMIDE 40 MG TAB PO SCH ×2 (05:26→17:32)
[2017-03-07] MEDS: PANTOPRAZOLE (EC) 40 MG TAB PO SCH (05:26)
[2017-03-07] MEDS: morphine 4 MG/ML VIAL IV PRN ×2 (05:32→23:26)
[2017-03-07] MEDS: LEVOTHYROXINE 75 MCG TAB PO SCH (06:54)
[2017-03-07] MEDS: morphine (ER) 15 MG TAB PO SCH ×2 (08:50→20:51)
[2017-03-07] MEDS: VORICONAZOLE 200 MG TAB PO SCH ×2 (08:51→20:50)
[2017-03-07] MEDS: DRONABINOL 2.5 MG CAP PO SCH ×3 (08:51→17:32)
[2017-03-07] MEDS: POTASSIUM CHLORIDE (SR) 20 MEQ TAB PO SCH ×2 (08:51→20:51)
[2017-03-07] MEDS: ESCITALOPRAM 10 MG TAB PO SCH (08:51)
[2017-03-07] MEDS: DOXYCYCLINE 100 MG TAB PO SCH ×2 (08:51→20:52)
[2017-03-07] MEDS: APIXABAN 5 MG TABLET PO SCH ×2 (08:52→20:51)
[2017-03-07] MEDS: HYDROCODONE/HOMATROPINE 5ML CUP PO SCH ×3 (08:52→20:50)
[2017-03-07] MEDS: OXYMETAZOLINE 0.05% 15 ML NAS SPRAY NASAL SCH ×2 (08:53→20:52)
[2017-03-07 09:33] LABS: BASOPHILS % 0.3 % (0.0-2.0); EOSINOPHILS # 0.2 10^3/ul (0.0-0.5); EOSINOPHILS % 2.7 % (0.0-7.0); HEMATOCRIT 29.2 % (42.0-52.0); LYMPHOCYTES # 0.8 10^3/ul (0.8-2.9); LYMPHOCYTES % 13.3 % (15.0-51.0); MEAN CORPUSCULAR HEMOGLOBIN 32.6 pg (29.0-33.0); MEAN CORPUSCULAR HGB CONC 30.8 g/dl (32.0-37.0); MEAN CORPUSCULAR VOLUME 105.8 fl (82.0-101.0); MEAN PLATELET VOLUME 11.6 fl (7.4-10.4); MONOCYTE # 0.5 10^3/ul (0.3-0.9); MONOCYTES % 8.5 % (0.0-11.0); NEUTROPHIL # 4.4 10^3/ul (1.6-7.5); NEUTROPHILS % 74.9 % (39.0-77.0); PLATELET COUNT 121 10^3/UL (140-415); POSITIVE DIFF @See below; RED BLOOD COUNT 2.76 10^6/ul (4.70-6.10); RED CELL DISTRIBUTION WIDTH 14.1 % (11.5-14.5); WHITE BLOOD COUNT 5.9 10^3/ul (4.8-10.8)
[2017-03-07 10:06] LABS: CALCIUM 8.7 mg/dl (8.4-10.2); CREATININE 1.57 mg/dl (0.61-1.24)
--- NOTE | 2017-03-07 10:58 | CONS ---
Date/Time of Note Date/Time of Note DATE: 03/07/17 TIME: 10:50 Assessment/Plan Assessment/Plan Chief Complaint/Hosp Course - h/o sepsis due to recurrent pneumonia, and to a lessor degree due to paronychia. 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 Aspergillus antibody was >1:64 but aspergillus antigen in serum by EIA was negative during his last admission. - macrocytic anemia - thrombocytopenia - h/o DVT of b/l UEs - b/l knee pain due to DJD - h/o post-obstructive pneumonia - h/o HTN, CAD, hyperlipidemia - h/o paroxysmal A fib - h/o hypothyroidism with elevated TSH level - HIV negative in 2013 - nonocclusive thrombus around the PICC catheter within the left brachial vein, axillary vein and subclavian vein per doppler 02/13/2017 recommendations: - continue PO doxycycline (Pt received vancomycin 02/27/2017-03/03/2017) until - Pt's been on voriconazole. Will draw voriconazole trough level today; may adjust the dose/discontinue if GFR remains low management d/w Pt Problems: Consultation Date/Type/Reason Admit Date/Time Jan 31, 2017 at 18:59 Initial Consult Date 02/14/17 Type of Consultation: ID Referring Provider: MARYAM FARMER MD 24 HR Interval Summary Constitutional: no complaints Detailed Summary Eyes: no complaints ENT: no complaints Respiratory: cough, shortness of breath, No pleuritic pain, No sputum Cardiovascular: no complaints Gastrointestinal: no complaints Genitourinary: no complaints Musculoskeletal: no complaints Skin: other (detachment of some nail, no pain, no purulence) Neurologic: no complaints Endocrine: no complaints Lymphatic: no complaints Exam/Review of Systems Vital Signs Vitals Vital Signs Date Time Temp Pulse Resp B/P Pulse Ox O2 Delivery O2 Flow Rate FiO2 03/07/17 08:17 93 03/07/17 08:02 4.0 03/07/17 08:02 18 97 Nasal Cannula 03/07/17 07:55 98.4 153/89 03/07/17 01:32 5 Intake and Output 03/06/17 03/06/17 03/07/17 15:00 23:00 07:00 Intake Total 880 ml 700 ml Balance 880 ml 700 ml Exam Constitutional: alert, obese, oriented Psych: nl mood/affect, no complaints Head: other (alopecia) Eyes: nl conjunctiva, nl lids ENMT: nl external ears & nose, nl nasal mucosa & septum Neck: supple Respiratory: diminished breath sounds, wheezing Cardiovascular: nl pulses, regular rate and rhythm Musculoskeletal: nl extremities to inspection Extremities: No edema Neurological: MATHEMATICS INSTRUCTOR II-XII intact, nl mental status, nl speech Skin: other (nail changes and detachment seconday to chemo, L 2nd fingernail bed is covered with scab without purulene or pain) Results Result Diagram: 03/07/17 0833 03/07/17 0833 Results 24 hrs Laboratory Tests Test 03/07/17 08:33 White Blood Count 5.9 Red Blood Count 2.76 L Hemoglobin 9.0 L Hematocrit 29.2 L Mean Corpuscular Volume 105.8 H Mean Corpuscular Hemoglobin 32.6 Mean Corpuscular Hemoglobin Concent 30.8 L Red Cell Distribution Width 14.1 Platelet Count 121 L Mean Platelet Volume 11.6 H Neutrophils % 74.9 Lymphocytes % 13.3 L Monocytes % 8.5 Eosinophils % 2.7 Basophils % 0.3 Nucleated Red Blood Cells % 0.0 Neutrophils # 4.4 Lymphocytes # 0.8 Monocytes # 0.5 Eosinophils # 0.2 Basophils # 0.0 Nucleated Red Blood Cells # 0.0 Sodium Level 139 Potassium Level 4.0 Chloride Level 96 L Carbon Dioxide Level 35 H Anion Gap 12 Blood Urea Nitrogen 19 Creatinine 1.57 H Glucose Level 86 Calcium Level 8.7 Medications Medications Current Medications Atorvastatin Calcium (Lipitor) 20 mg QHS PO Last administered on 03/06/17 21: 50; Admin Dose 20 MG; Start 01/31/17 at 21:00 Escitalopram Oxalate (Lexapro) 10 mg DAILY PO Last administered on 03/07/17 08:51; Admin Dose 10 MG; Start 02/01/17 at 09:00 Ondansetron HCl (Zofran Inj) 4 mg Q6 PRN IV NAUSEA Last administered on 07:39; Admin Dose 4 MG; Start 01/31/17 at 19:30 Morphine Sulfate (Ms Contin (Er)) 15 mg BID PO Last administered on 03/07/17 08:50; Admin Dose 15 MG; Start 01/31/17 at 23:00 Nitroglycerin (Nitroglycerin (Sl Tab) 0.4 Mg) 1 tab Q5M PRN SL ANGINA Last administered on 02/19/17 19:48; Admin Dose 1 TAB; Start 02/01/17 at 11:30 Pantoprazole (Protonix Tab) 40 mg DAILY@06 PO Last administered on 03/07/17 05:26; Admin Dose 40 MG; Start 02/02/17 at 06:00 Voriconazole (Vfend) 200 mg BID PO Last administered on 03/07/17 08:51; Admin Dose 200 MG; Start 02/01/17 at 21:00 Senna (Senokot) 1 tab DAILY PRN PO CONSTIPATION Last administered on 03/05/17 21:14; Admin Dose 1 TAB; Start 02/02/17 at 16:00 Lactulose (Enulose) 20 gm DAILY PRN PO CONSTIPATION; Start 02/02/17 at 16:00 IV Flush (NS 10 ml) 10 ml PRN PRN IV IV PROTOCOL; Start 02/06/17 at 20:00 Oxymetazoline HCl (Afrin [place]) 2 spray BID NASAL Last administered on 08:53; Admin Dose 2 SPRAY; Start 02/07/17 at 15:00 Potassium Chloride (Klor-Con 20) 20 meq BID PO Last administered on 03/07/17 08:51; Admin Dose 20 MEQ; Start 02/27/17 at 21:00 Morphine Sulfate (morphine) 2 mg Q4H PRN IV SEVERE PAIN LEVEL 7-10 Last administered on 03/07/17 05:32; Admin Dose 2 MG; Start 02/28/17 at 19:00 Doxycycline Hyclate (Vibramycin) 100 mg BID PO Last administered on 03/07/17 08:51; Admin Dose 100 MG; Start 03/03/17 at 21:00; Stop 03/09/17 at 23:59 Apixaban (Eliquis) 2.5 mg BID PO Last administered on 03/07/17 08:52; Admin Dose 2.5 MG; Start 03/04/17 at 21:00 Hydrocodone Bit/ Homatropine Methylb (Hycodan Liquid) 10 ml TID PO Last administered on 03/07/17 08:52; Admin Dose 10 ML; Start 03/04/17 at 13:00 Furosemide (Lasix) 40 mg BID@06,18 PO Last administered on 03/07/17 05:26; Admin Dose 40 MG; Start 03/05/17 at 21:00 LUKE CAAL M.D. Mar 07, 2017 10:57
--- NOTE | 2017-03-07 17:41 | PN ---
Date/Time of Note Date/Time of Note DATE: 03/07/17 TIME: 17:38 Assessment/Plan VTE Prophylaxis VTE Prophylaxis Intervention: SCD's Lines/Catheters IV [facility]from [facility] PICC Line Central line still needed: Yes Urinary Cath still in place: No Assessment/Plan Chief Complaint/Hosp Course Patient's continues on supplemental oxygen during the day and BiPAP at night with shortness of breath on exertion. Pending arrangement for BiPAP machine prior to discharge home. Patient condition and plan of care discussed with patient's , all questions answered Assessment/Plan - Paronychia, MSSA, cont abx per ID. - LIZ, Dr. Irving is following in nephrology consultation. - Post-obstructive pneumonia Dr. Philly perry is following infection disease consultation. Status post treatment with antibiotics. - Advanced non-small cell lung CA, Dr. Scanlon is following in oncology consultation. - Acute respiratory failure secondary to above. is following in pulmonology consultation. - Nonocclusive deep venous thrombosis bilateral upper extremities. Continue Eliquis. - Acute on chronic diastolic congestive heart failure, continue gentle diuresis , continue to monitor electrolytes. - h/o fungal pneumonia, on maintenance voriconazole - CAD, continue aspirin. - Hyperlipidemia, continue statin - Hypothyroidism, continue levothyroxine. - Paroxysmal atrial fibrillation, controlled rate, patient is continued on Eliquis. Further recommendations based on clinical course. Plan of care discussed with Dr. Lincoln. Problems: Exam/Review of Systems Vital Signs Vitals Vital Signs Date Time Temp Pulse Resp B/P Pulse Ox O2 Delivery O2 Flow Rate FiO2 03/07/17 16:12 90 03/07/17 16:00 98.4 18 113/57 97 03/07/17 16:00 Nasal Cannula 4.0 03/07/17 01:32 5 Intake and Output 03/06/17 03/06/17 03/07/17 15:00 23:00 07:00 Intake Total 880 ml 700 ml Balance 880 ml 700 ml Exam Constitutional: alert Neck: supple Respiratory: diminished breath sounds Cardiovascular: nl pulses Gastrointestinal: non-tender, soft Extremities: edema Results Result Diagram: 03/07/17 0833 03/07/17 0833 Results 24 hrs Laboratory Tests Test 03/07/17 04:45 03/07/17 08:33 Stool Occult Blood NEGATIVE White Blood Count 5.9 Red Blood Count 2.76 L Hemoglobin 9.0 L Hematocrit 29.2 L Mean Corpuscular Volume 105.8 H Mean Corpuscular Hemoglobin 32.6 Mean Corpuscular Hemoglobin Concent 30.8 L Red Cell Distribution Width 14.1 Platelet Count 121 L Mean Platelet Volume 11.6 H Neutrophils % 74.9 Lymphocytes % 13.3 L Monocytes % 8.5 Eosinophils % 2.7 Basophils % 0.3 Nucleated Red Blood Cells % 0.0 Neutrophils # 4.4 Lymphocytes # 0.8 Monocytes # 0.5 Eosinophils # 0.2 Basophils # 0.0 Nucleated Red Blood Cells # 0.0 Sodium Level 139 Potassium Level 4.0 Chloride Level 96 L Carbon Dioxide Level 35 H Anion Gap 12 Blood Urea Nitrogen 19 Creatinine 1.57 H Glucose Level 86 Calcium Level 8.7 Medications Medications Current Medications Atorvastatin Calcium (Lipitor) 20 mg QHS PO Last administered on 03/06/17 21: 50; Admin Dose 20 MG; Start 01/31/17 at 21:00 Escitalopram Oxalate (Lexapro) 10 mg DAILY PO Last administered on 03/07/17 08:51; Admin Dose 10 MG; Start 02/01/17 at 09:00 Ondansetron HCl (Zofran Inj) 4 mg Q6 PRN IV NAUSEA Last administered on 07:39; Admin Dose 4 MG; Start 01/31/17 at 19:30 Morphine Sulfate (Ms Contin (Er)) 15 mg BID PO Last administered on 03/07/17 08:50; Admin Dose 15 MG; Start 01/31/17 at 23:00 Nitroglycerin (Nitroglycerin (Sl Tab) 0.4 Mg) 1 tab Q5M PRN SL ANGINA Last administered on 02/19/17 19:48; Admin Dose 1 TAB; Start 02/01/17 at 11:30 Pantoprazole (Protonix Tab) 40 mg DAILY@06 PO Last administered on 03/07/17 05:26; Admin Dose 40 MG; Start 02/02/17 at 06:00 Voriconazole (Vfend) 200 mg BID PO Last administered on 03/07/17 08:51; Admin Dose 200 MG; Start 02/01/17 at 21:00 Senna (Senokot) 1 tab DAILY PRN PO CONSTIPATION Last administered on 03/05/17 21:14; Admin Dose 1 TAB; Start 02/02/17 at 16:00 Lactulose (Enulose) 20 gm DAILY PRN PO CONSTIPATION; Start 02/02/17 at 16:00 IV Flush (NS 10 ml) 10 ml PRN PRN IV IV PROTOCOL; Start 02/06/17 at 20:00 Oxymetazoline HCl (Afrin [place]) 2 spray BID NASAL Last administered on 08:53; Admin Dose 2 SPRAY; Start 02/07/17 at 15:00 Potassium Chloride (Klor-Con 20) 20 meq BID PO Last administered on 03/07/17 08:51; Admin Dose 20 MEQ; Start 02/27/17 at 21:00 Morphine Sulfate (morphine) 2 mg Q4H PRN IV SEVERE PAIN LEVEL 7-10 Last administered on 03/07/17 05:32; Admin Dose 2 MG; Start 02/28/17 at 19:00 Doxycycline Hyclate (Vibramycin) 100 mg BID PO Last administered on 03/07/17 08:51; Admin Dose 100 MG; Start 03/03/17 at 21:00; Stop 03/09/17 at 23:59 Apixaban (Eliquis) 2.5 mg BID PO Last administered on 03/07/17 08:52; Admin Dose 2.5 MG; Start 03/04/17 at 21:00 Hydrocodone Bit/ Homatropine Methylb (Hycodan Liquid) 10 ml TID PO Last administered on 03/07/17 13:16; Admin Dose 10 ML; Start 03/04/17 at 13:00 Furosemide (Lasix) 40 mg BID@,18 PO Last administered on 03/07/17 17:32; Admin Dose 40 MG; Start 03/05/17 at 21:00 LUBA EARLY Mar 07, 2017 17:41
--- NOTE | 2017-03-07 18:20 | CONS ---
Date/Time of Note Date/Time of Note DATE: 03/07/17 TIME: 18:17 Assessment/Plan Assessment/Plan Chief Complaint/Hosp Course IMPRESSION: 1. Chest pain. Assess for acute coronary syndrome in a patient with lung cancer, undergoing chemotherapy, likely secondary to lung cancer.-negative trop x3/no recurrent chest pain at this time 2. Abnormal electrocardiogram with nonspecific ST and T-wave abnormalities, assess for acute coronary syndrome. 3. Bradycardia, transient while on beta matthew. 4. Hypotension-improved 5. Shortness of fulixa-giyj-[id number] PNA 6. Lung cancer with ongoing chemotherapy. 7. Leukocytosis. 8. Anemia. 9. Thrombocytopenia-stable 10.DVT-RUE on eliquis 11. Renal failure-ongoing s 12. 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 -Continue marinol for decreased appetite -Contine intermittent albumin -Continue voriconazole/doxycyline Problems: Consultation Date/Type/Reason Admit Date/Time Jan 31, 2017 at 18:59 Initial Consult Date 02/01/17 Type of Consultation: cardiology Reason for Consultation CHF Referring Provider: MARYAM FARMER MD Exam/Review of Systems Vital Signs Vitals Vital Signs Date Time Temp Pulse Resp B/P Pulse Ox O2 Delivery O2 Flow Rate FiO2 03/07/17 16:12 90 03/07/17 16:00 98.4 18 113/57 97 03/07/17 16:00 Nasal Cannula 4.0 03/07/17 01:32 5 Intake and Output 03/06/17 03/06/17 03/07/17 14:59 22:59 06:59 Intake Total 880 ml 700 ml Balance 880 ml 700 ml Exam Review of Systems: CONSTITUTIONAL: No fevers, chills. PULMONARY: No sob CARDIOVASCULAR: No chest pain/palpitations GASTROINTESTINAL: No nausea/vomiting. GENITOURINARY: No hematuria/dysuria. MUSCULOSKELETAL: No myagias/arthalgias. PSYCHIATRIC: The patient denies depression. NEUROLOGIC: No weakness Constitutional: alert, oriented Psych: no complaints Head: normocephalic ENMT: mucosa pink and moist Neck: jvd, supple Respiratory: diminished breath sounds Cardiovascular: regular rate and rhythm Gastrointestinal: non-tender, soft Musculoskeletal: muscle tone (normal) Extremities: edema (none) Neurological: other (No focal deficits) Results Result Diagram: 03/07/1783203/07/17832 Results 24 hrs Laboratory Tests Test 03/07/17 04:45 03/07/17 08:33 Stool Occult Blood NEGATIVE White Blood Count 5.9 Red Blood Count 2.76 L Hemoglobin 9.0 L Hematocrit 29.2 L Mean Corpuscular Volume 105.8 H Mean Corpuscular Hemoglobin 32.6 Mean Corpuscular Hemoglobin Concent 30.8 L Red Cell Distribution Width 14.1 Platelet Count 121 L Mean Platelet Volume 11.6 H Neutrophils % 74.9 Lymphocytes % 13.3 L Monocytes % 8.5 Eosinophils % 2.7 Basophils % 0.3 Nucleated Red Blood Cells % 0.0 Neutrophils # 4.4 Lymphocytes # 0.8 Monocytes # 0.5 Eosinophils # 0.2 Basophils # 0.0 Nucleated Red Blood Cells # 0.0 Sodium Level 139 Potassium Level 4.0 Chloride Level 96 L Carbon Dioxide Level 35 H Anion Gap 12 Blood Urea Nitrogen 19 Creatinine 1.57 H Glucose Level 86 Calcium Level 8.7 Medications Medications Current Medications Atorvastatin Calcium (Lipitor) 20 mg QHS PO Last administered on 03/06/17 21: 50; Admin Dose 20 MG; Start 01/31/17 at 21:00 Escitalopram Oxalate (Lexapro) 10 mg DAILY PO Last administered on 03/07/17 08:51; Admin Dose 10 MG; Start 02/01/17 at 09:00 Ondansetron HCl (Zofran Inj) 4 mg Q6 PRN IV NAUSEA Last administered on 07:39; Admin Dose 4 MG; Start 01/31/17 at 19:30 Morphine Sulfate (Ms Contin (Er)) 15 mg BID PO Last administered on 03/07/17 08:50; Admin Dose 15 MG; Start 01/31/17 at 23:00 Nitroglycerin (Nitroglycerin (Sl Tab) 0.4 Mg) 1 tab Q5M PRN SL ANGINA Last administered on 02/19/17 19:48; Admin Dose 1 TAB; Start 02/01/17 at 11:30 Pantoprazole (Protonix Tab) 40 mg DAILY@06 PO Last administered on 03/07/17 05:26; Admin Dose 40 MG; Start 02/02/17 at 06:00 Voriconazole (Vfend) 200 mg BID PO Last administered on 03/07/17 08:51; Admin Dose 200 MG; Start 02/01/17 at 21:00 Senna (Senokot) 1 tab DAILY PRN PO CONSTIPATION Last administered on 03/05/17 21:14; Admin Dose 1 TAB; Start 02/02/17 at 16:00 Lactulose (Enulose) 20 gm DAILY PRN PO CONSTIPATION; Start 02/02/17 at 16:00 IV Flush (NS 10 ml) 10 ml PRN PRN IV IV PROTOCOL; Start 02/06/17 at 20:00 Oxymetazoline HCl (Afrin [place]) 2 spray BID NASAL Last administered on 08:53; Admin Dose 2 SPRAY; Start 02/07/17 at 15:00 Potassium Chloride (Klor-Con 20) 20 meq BID PO Last administered on 03/07/17 08:51; Admin Dose 20 MEQ; Start 02/27/17 at 21:00 Morphine Sulfate (morphine) 2 mg Q4H PRN IV SEVERE PAIN LEVEL 7-10 Last administered on 03/07/17 05:32; Admin Dose 2 MG; Start 02/28/17 at 19:00 Doxycycline Hyclate (Vibramycin) 100 mg BID PO Last administered on 03/07/17 08:51; Admin Dose 100 MG; Start 03/03/17 at 21:00; Stop 03/09/17 at 23:59 Apixaban (Eliquis) 2.5 mg BID PO Last administered on 03/07/17 08:52; Admin Dose 2.5 MG; Start 03/04/17 at 21:00 Hydrocodone Bit/ Homatropine Methylb (Hycodan Liquid) 10 ml TID PO Last administered on 03/07/17 13:16; Admin Dose 10 ML; Start 03/04/17 at 13:00 Furosemide (Lasix) 40 mg BID@,18 PO Last administered on 03/07/17 17:32; Admin Dose 40 MG; Start 03/05/17 at 21:00 MARIAA ÁLVAREZ Mar 07, 2017 18:20
--- NOTE | 2017-03-07 18:53 | CONS ---
Date/Time of Note Date/Time of Note DATE: 03/07/17 TIME: 18:52 Assessment/Plan Assessment/Plan Additional Assessment/Plan 1. Anasarca- Fluid overload multifactorial s/p Diuresis with IV lasix and IV albumin 2. acute kidney injury 3. post obstructive PNA 4. Advanced non small lung CA 5. acute respiratory failure 6. Right subclavian Deep venous thrombosis 7. acute on chronic diastolic heart failure 8. h/o fungal pneumonia 9. Hyperlipidemia 10. hypothyroidism 11. Metabolic alkalosis Plan: s/p IV albumin with Lasix diureisis-on PO lasix- continue lasix 40mg PO BID- today Cr bumped to 1.57, HCo3 35 today plan is to continue current Lasix dose and monitor electrolytes IV abx as per ID and PMD, renally dose all abx Monitor Electroltyes and replace as needed. Will follow up Consultation Date/Type/Reason Admit Date/Time Jan 31, 2017 at 18:59 Initial Consult Date 02/14/17 Type of Consultation: NEPHROLOGY Referring Provider: MARYAM FARMER MD 24 HR Interval Summary Free Text/Dictation no acute events, BPs table Exam/Review of Systems Vital Signs Vitals Vital Signs Date Time Temp Pulse Resp B/P Pulse Ox O2 Delivery O2 Flow Rate FiO2 03/07/17 16:12 90 03/07/17 16:00 98.4 18 113/57 97 03/07/17 16:00 Nasal Cannula 4.0 03/07/17 01:32 5 Intake and Output 03/06/17 03/06/17 03/07/17 15:00 23:00 07:00 Intake Total 880 ml 700 ml Balance 880 ml 700 ml Exam Constitutional: alert Respiratory: clear to auscultation, diminished breath sounds, normal air movement Cardiovascular: nl pulses, regular rate and rhythm Gastrointestinal: non-tender, soft Musculoskeletal: , 1 to 2 + edema ) Neurological: PROJECT ENG II-XII intact, nl mental status Results Result Diagram: 03/07/17 0833 03/07/17 0833 Results 24 hrs Laboratory Tests Test 03/07/17 04:45 03/07/17 08:33 Stool Occult Blood NEGATIVE White Blood Count 5.9 Red Blood Count 2.76 L Hemoglobin 9.0 L Hematocrit 29.2 L Mean Corpuscular Volume 105.8 H Mean Corpuscular Hemoglobin 32.6 Mean Corpuscular Hemoglobin Concent 30.8 L Red Cell Distribution Width 14.1 Platelet Count 121 L Mean Platelet Volume 11.6 H Neutrophils % 74.9 Lymphocytes % 13.3 L Monocytes % 8.5 Eosinophils % 2.7 Basophils % 0.3 Nucleated Red Blood Cells % 0.0 Neutrophils # 4.4 Lymphocytes # 0.8 Monocytes # 0.5 Eosinophils # 0.2 Basophils # 0.0 Nucleated Red Blood Cells # 0.0 Sodium Level 139 Potassium Level 4.0 Chloride Level 96 L Carbon Dioxide Level 35 H Anion Gap 12 Blood Urea Nitrogen 19 Creatinine 1.57 H Glucose Level 86 Calcium Level 8.7 Medications Medications Current Medications Atorvastatin Calcium (Lipitor) 20 mg QHS PO Last administered on 03/06/17 21: 50; Admin Dose 20 MG; Start 01/31/17 at 21:00 Escitalopram Oxalate (Lexapro) 10 mg DAILY PO Last administered on 03/07/17 08:51; Admin Dose 10 MG; Start 02/01/17 at 09:00 Ondansetron HCl (Zofran Inj) 4 mg Q6 PRN IV NAUSEA Last administered on 07:39; Admin Dose 4 MG; Start 01/31/17 at 19:30 Morphine Sulfate (Ms Contin (Er)) 15 mg BID PO Last administered on 03/07/17 08:50; Admin Dose 15 MG; Start 01/31/17 at 23:00 Nitroglycerin (Nitroglycerin (Sl Tab) 0.4 Mg) 1 tab Q5M PRN SL ANGINA Last administered on 02/19/17 19:48; Admin Dose 1 TAB; Start 02/01/17 at 11:30 Pantoprazole (Protonix Tab) 40 mg DAILY@06 PO Last administered on 03/07/17 05:26; Admin Dose 40 MG; Start 02/02/17 at 06:00 Voriconazole (Vfend) 200 mg BID PO Last administered on 03/07/17 08:51; Admin Dose 200 MG; Start 02/01/17 at 21:00 Senna (Senokot) 1 tab DAILY PRN PO CONSTIPATION Last administered on 03/05/17 21:14; Admin Dose 1 TAB; Start 02/02/17 at 16:00 Lactulose (Enulose) 20 gm DAILY PRN PO CONSTIPATION; Start 02/02/17 at 16:00 IV Flush (NS 10 ml) 10 ml PRN PRN IV IV PROTOCOL; Start 02/06/17 at 20:00 Oxymetazoline HCl (Afrin [place]) 2 spray BID NASAL Last administered on 08:53; Admin Dose 2 SPRAY; Start 02/07/17 at 15:00 Potassium Chloride (Klor-Con 20) 20 meq BID PO Last administered on 03/07/17 08:51; Admin Dose 20 MEQ; Start 02/27/17 at 21:00 Morphine Sulfate (morphine) 2 mg Q4H PRN IV SEVERE PAIN LEVEL 7-10 Last administered on 03/07/17 05:32; Admin Dose 2 MG; Start 02/28/17 at 19:00 Doxycycline Hyclate (Vibramycin) 100 mg BID PO Last administered on 03/07/17 08:51; Admin Dose 100 MG; Start 03/03/17 at 21:00; Stop 03/09/17 at 23:59 Apixaban (Eliquis) 2.5 mg BID PO Last administered on 03/07/17 08:52; Admin Dose 2.5 MG; Start 03/04/17 at 21:00 Hydrocodone Bit/ Homatropine Methylb (Hycodan Liquid) 10 ml TID PO Last administered on 03/07/17 13:16; Admin Dose 10 ML; Start 03/04/17 at 13:00 Furosemide (Lasix) 40 mg BID@06,18 PO Last administered on 03/07/17 17:32; Admin Dose 40 MG; Start 03/05/17 at 21:00 MELODY JENSEN MD Mar 07, 2017 18:53
[2017-03-07] MEDS: ATORVASTATIN 20 MG TAB PO SCH (20:51)
[2017-03-08] VITALS (15 sets, daily range): BP systolic 110–129; BP diastolic 65–74; PULSE 80–94; RESP 20–21
[2017-03-08] MEDS: LEVALBUTEROL (NEB) 0.63 MG/3 ML AMP HHN SCH ×4 (02:21→20:33)
[2017-03-08] MEDS: FUROSEMIDE 40 MG TAB PO SCH ×2 (06:24→17:54)
[2017-03-08] MEDS: LEVOTHYROXINE 75 MCG TAB PO SCH (06:24)
[2017-03-08] MEDS: PANTOPRAZOLE (EC) 40 MG TAB PO SCH (06:24)
[2017-03-08 07:23] LABS: BASOPHILS % 0.9 % (0.0-2.0); EOSINOPHILS # 0.2 10^3/ul (0.0-0.5); EOSINOPHILS % 4.4 % (0.0-7.0); HEMATOCRIT 28.2 % (42.0-52.0); HEMOGLOBIN 8.8 g/dl (14.0-18.0); LYMPHOCYTES # 0.6 10^3/ul (0.8-2.9); LYMPHOCYTES % 13.3 % (15.0-51.0); MEAN CORPUSCULAR HEMOGLOBIN 32.6 pg (29.0-33.0); MEAN CORPUSCULAR HGB CONC 31.2 g/dl (32.0-37.0); MEAN CORPUSCULAR VOLUME 104.4 fl (82.0-101.0); MEAN PLATELET VOLUME 10.6 fl (7.4-10.4); MONOCYTE # 0.5 10^3/ul (0.3-0.9); MONOCYTES % 10.9 % (0.0-11.0); NEUTROPHIL # 3.2 10^3/ul (1.6-7.5); NEUTROPHILS % 70.3 % (39.0-77.0); PLATELET COUNT 111 10^3/UL (140-415); WHITE BLOOD COUNT 4.5 10^3/ul (4.8-10.8)
[2017-03-08 07:43] LABS: CALCIUM 8.6 mg/dl (8.4-10.2); CREATININE 1.49 mg/dl (0.61-1.24); POTASSIUM 3.9 mmol/L (3.5-5.1)
[2017-03-08] MEDS: DRONABINOL 2.5 MG CAP PO SCH ×3 (08:53→17:53)
[2017-03-08] MEDS: morphine (ER) 15 MG TAB PO SCH ×2 (09:00→21:06)
[2017-03-08] MEDS: morphine 4 MG/ML VIAL IV PRN (09:01)
[2017-03-08] MEDS: DOXYCYCLINE 100 MG TAB PO SCH ×2 (09:49→21:06)
[2017-03-08] MEDS: HYDROCODONE/HOMATROPINE 5ML CUP PO SCH ×3 (09:49→21:06)
[2017-03-08] MEDS: VORICONAZOLE 200 MG TAB PO SCH ×2 (09:49→21:06)
[2017-03-08] MEDS: APIXABAN 5 MG TABLET PO SCH ×2 (09:50→21:06)
[2017-03-08] MEDS: POTASSIUM CHLORIDE (SR) 20 MEQ TAB PO SCH ×2 (09:50→21:06)
[2017-03-08] MEDS: ESCITALOPRAM 10 MG TAB PO SCH (09:50)
[2017-03-08] MEDS: OXYMETAZOLINE 0.05% 15 ML NAS SPRAY NASAL SCH ×2 (09:54→21:05)
--- NOTE | 2017-03-08 11:18 | CONS ---
Date/Time of Note Date/Time of Note DATE: 03/08/17 TIME: 11:16 Assessment/Plan Assessment/Plan Chief Complaint/Hosp Course - h/o sepsis due to recurrent pneumonia, and to a lessor degree due to paronychia. 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 Aspergillus antibody was >1:64 but aspergillus antigen in serum by EIA was negative during his last admission. - macrocytic anemia - thrombocytopenia - h/o DVT of b/l UEs - b/l knee pain due to DJD - h/o post-obstructive pneumonia - h/o HTN, CAD, hyperlipidemia - h/o paroxysmal A fib - h/o hypothyroidism with elevated TSH level - HIV negative in 2013 - nonocclusive thrombus around the PICC catheter within the left brachial vein, axillary vein and subclavian vein per doppler 02/13/2017 recommendations: - pending: voriconazole trough level on 03/07/2017 - continue PO doxycycline (Pt received vancomycin 02/27/2017-03/03/2017) until - Pt's been on voriconazole; will adjust the dose/discontinue depending on the result of trough level and GFR management d/w Pt Problems: Consultation Date/Type/Reason Admit Date/Time Jan 31, 2017 at 18:59 Initial Consult Date 02/14/17 Type of Consultation: ID Referring Provider: MARYAM FARMER MD 24 HR Interval Summary Constitutional: no complaints Detailed Summary Eyes: no complaints ENT: no complaints Respiratory: cough, shortness of breath Cardiovascular: no complaints Gastrointestinal: no complaints Genitourinary: no complaints Musculoskeletal: No swelling Skin: skin lesions (nail changes and detachment, no pain) Neurologic: no complaints Exam/Review of Systems Vital Signs Vitals Vital Signs Date Time Temp Pulse Resp B/P Pulse Ox O2 Delivery O2 Flow Rate FiO2 03/08/17 08:22 98.8 96 20 110/69 99 03/08/17 07:52 4.0 03/08/17 07:52 Nasal Cannula 03/08/17 04:30 50 Intake and Output 03/07/17 03/07/17 03/08/17 15:00 23:00 07:00 Intake Total 960 ml 500 ml Output Total 1200 ml Balance 960 ml -700 ml Exam Constitutional: alert, oriented, well developed Psych: nl mood/affect, no complaints Head: other (alopecia) Eyes: nl conjunctiva, nl lids ENMT: nl external ears & nose, nl nasal mucosa & septum Neck: supple Respiratory: diminished breath sounds, labored breathing Cardiovascular: nl pulses, regular rate and rhythm Gastrointestinal: non-tender, soft Musculoskeletal: nl extremities to inspection Extremities: No edema Neurological: MILK TESTER II-XII intact, nl mental status, nl speech, nl strength Skin: other (nail detachment and changes; no purulence and non-tender) Results Result Diagram: 03/08/17 0701 03/08/17 0659 Results 24 hrs Laboratory Tests Test 03/08/17 06:59 03/08/17 07:01 Sodium Level 141 Potassium Level 3.9 Chloride Level 97 Carbon Dioxide Level 38 H Anion Gap 10 Blood Urea Nitrogen 18 Creatinine 1.49 H Glucose Level 82 Calcium Level 8.6 White Blood Count 4.5 #L Red Blood Count 2.70 L Hemoglobin 8.8 L Hematocrit 28.2 L Mean Corpuscular Volume 104.4 H Mean Corpuscular Hemoglobin 32.6 Mean Corpuscular Hemoglobin Concent 31.2 L Red Cell Distribution Width 14.0 Platelet Count 111 L Mean Platelet Volume 10.6 H Neutrophils % 70.3 Lymphocytes % 13.3 L Monocytes % 10.9 Eosinophils % 4.4 Basophils % 0.9 Nucleated Red Blood Cells % 0.0 Neutrophils # 3.2 Lymphocytes # 0.6 L Monocytes # 0.5 Eosinophils # 0.2 Basophils # 0.0 Nucleated Red Blood Cells # 0.0 Medications Medications Current Medications Atorvastatin Calcium (Lipitor) 20 mg QHS PO Last administered on 03/07/17 20: 51; Admin Dose 20 MG; Start 01/31/17 at 21:00 Escitalopram Oxalate (Lexapro) 10 mg DAILY PO Last administered on 03/08/17 09:50; Admin Dose 10 MG; Start 02/01/17 at 09:00 Ondansetron HCl (Zofran Inj) 4 mg Q6 PRN IV NAUSEA Last administered on 07:39; Admin Dose 4 MG; Start 01/31/17 at 19:30 Morphine Sulfate (Ms Contin (Er)) 15 mg BID PO Last administered on 03/07/17 20:51; Admin Dose 15 MG; Start 01/31/17 at 23:00 Nitroglycerin (Nitroglycerin (Sl Tab) 0.4 Mg) 1 tab Q5M PRN SL ANGINA Last administered on 02/19/17 19:48; Admin Dose 1 TAB; Start 02/01/17 at 11:30 Pantoprazole (Protonix Tab) 40 mg DAILY@06 PO Last administered on 03/08/17 06:24; Admin Dose 40 MG; Start 02/02/17 at 06:00 Voriconazole (Vfend) 200 mg BID PO Last administered on 03/08/17 09:49; Admin Dose 200 MG; Start 02/01/17 at 21:00 Senna (Senokot) 1 tab DAILY PRN PO CONSTIPATION Last administered on 03/05/17 21:14; Admin Dose 1 TAB; Start 02/02/17 at 16:00 Lactulose (Enulose) 20 gm DAILY PRN PO CONSTIPATION; Start 02/02/17 at 16:00 IV Flush (NS 10 ml) 10 ml PRN PRN IV IV PROTOCOL; Start 02/06/17 at 20:00 Oxymetazoline HCl (Afrin [place]) 2 spray BID NASAL Last administered on 09:54; Admin Dose 2 SPRAY; Start 02/07/17 at 15:00 Potassium Chloride (Klor-Con 20) 20 meq BID PO Last administered on 03/08/17 09:50; Admin Dose 20 MEQ; Start 02/27/17 at 21:00 Morphine Sulfate (morphine) 2 mg Q4H PRN IV SEVERE PAIN LEVEL 7-10 Last administered on 03/08/17 09:01; Admin Dose 2 MG; Start 02/28/17 at 19:00 Doxycycline Hyclate (Vibramycin) 100 mg BID PO Last administered on 03/08/17 09:49; Admin Dose 100 MG; Start 03/03/17 at 21:00; Stop 03/09/17 at 23:59 Apixaban (Eliquis) 2.5 mg BID PO Last administered on 03/08/17 09:50; Admin Dose 2.5 MG; Start 03/04/17 at 21:00 Hydrocodone Bit/ Homatropine Methylb (Hycodan Liquid) 10 ml TID PO Last administered on 03/08/17 09:49; Admin Dose 10 ML; Start 03/04/17 at 13:00 Furosemide (Lasix) 40 mg BID@18 PO Last administered on 03/08/17 06:24; Admin Dose 40 MG; Start 03/05/17 at 21:00 LUKE CAAL M.D. Mar 08, 2017 11:18
--- NOTE | 2017-03-08 12:22 | PN ---
Date/Time of Note Date/Time of Note DATE: 03/08/17 TIME: 10:39 Assessment/Plan VTE Prophylaxis VTE Prophylaxis Intervention: other Lines/Catheters IV Catheter Type (from [facility]): PICC Line Central line still needed: Yes Urinary Cath still in place: No Assessment/Plan Chief Complaint/Hosp Course - Problems: Assessment/Plan - Paronychia, MSSA, cont abx per ID. - LIZ, Dr. Irving is following in nephrology consultation. - Post-obstructive pneumonia Dr. Philly perry is following infection disease consultation. Status post treatment with antibiotics. - Advanced non-small cell lung CA, Dr. Scanlon is following in oncology consultation. - Acute respiratory failure secondary to above. is following in pulmonology consultation. - Nonocclusive deep venous thrombosis bilateral upper extremities. Continue Eliquis. - Acute on chronic diastolic congestive heart failure, continue gentle diuresis , continue to monitor electrolytes. - h/o fungal pneumonia, on maintenance voriconazole - CAD, continue aspirin. - Hyperlipidemia, continue statin - Hypothyroidism, continue levothyroxine. - Paroxysmal atrial fibrillation, controlled rate, patient is continued on Eliquis. KEIRY Case Manger who dw with supplier for BIAPAP. Per supplier- Ordering Trilogy 100 due to COPD and chronic respiratory failure. Patient requires PC mode moutj piece while ambulating t meet ADLs. Require ventilation available all day as a life sustaining device to avoid health risks. All other devices have been considered and ruled out. Further recommendations based on clinical course. Plan of care discussed with Dr. Lincoln. Subjective 24 Hr Interval Summary Free Text/Dictation c/o shortness of breath on exertion, remains on supplemental oxygen during the day and BiPAP at night. -BiPAP machine arranged per top case assembler prior to discharge home. KEIRY Case Manger who dw with supplier for BIAPAP. Per supplier- Ordering Trilogy 100 due to COPD and chronic respiratory failure. Patient requires PC mode moutj piece while ambulating t meet ADLs. Require ventilation available all day as a life sustaining device to avoid health risks. All other devices have been considered and ruled out. dw staff Constitutional: requiring O2 Respiratory: shortness of breath Cardiovascular: no complaints Gastrointestinal: no complaints Musculoskeletal: back pain Neurologic: no complaints Exam/Review of Systems Vital Signs Vitals Vital Signs Date Time Temp Pulse Resp B/P Pulse Ox O2 Delivery O2 Flow Rate FiO2 03/08/17 08:22 98.8 96 20 110/69 99 03/08/17 07:52 4.0 03/08/17 07:52 Nasal Cannula 03/08/17 04:30 50 Intake and Output 03/07/17 03/07/17 03/08/17 15:00 23:00 07:00 Intake Total 960 ml 500 ml Output Total 1200 ml Balance 960 ml -700 ml Exam Constitutional: alert, obese, well developed Respiratory: diminished breath sounds Cardiovascular: nl pulses, other (AFIB) Gastrointestinal: non-tender, soft Musculoskeletal: other (Paronychia) Extremities: normal pulses Neurological: nl speech Results Result Diagram: 03/08/17 0701 03/08/17 0659 Results 24 hrs Laboratory Tests Test 03/08/17 06:59 03/08/17 07:01 Sodium Level 141 Potassium Level 3.9 Chloride Level 97 Carbon Dioxide Level 38 H Anion Gap 10 Blood Urea Nitrogen 18 Creatinine 1.49 H Glucose Level 82 Calcium Level 8.6 White Blood Count 4.5 #L Red Blood Count 2.70 L Hemoglobin 8.8 L Hematocrit 28.2 L Mean Corpuscular Volume 104.4 H Mean Corpuscular Hemoglobin 32.6 Mean Corpuscular Hemoglobin Concent 31.2 L Red Cell Distribution Width 14.0 Platelet Count 111 L Mean Platelet Volume 10.6 H Neutrophils % 70.3 Lymphocytes % 13.3 L Monocytes % 10.9 Eosinophils % 4.4 Basophils % 0.9 Nucleated Red Blood Cells % 0.0 Neutrophils # 3.2 Lymphocytes # 0.6 L Monocytes # 0.5 Eosinophils # 0.2 Basophils # 0.0 Nucleated Red Blood Cells # 0.0 Medications Medications Current Medications Atorvastatin Calcium (Lipitor) 20 mg QHS PO Last administered on 03/07/17 20: 51; Admin Dose 20 MG; Start 01/31/17 at 21:00 Escitalopram Oxalate (Lexapro) 10 mg DAILY PO Last administered on 03/08/17 09:50; Admin Dose 10 MG; Start 02/01/17 at 09:00 Ondansetron HCl (Zofran Inj) 4 mg Q6 PRN IV NAUSEA Last administered on 07:39; Admin Dose 4 MG; Start 01/31/17 at 19:30 Morphine Sulfate (Ms Contin (Er)) 15 mg BID PO Last administered on 03/07/17 20:51; Admin Dose 15 MG; Start 01/31/17 at 23:00 Nitroglycerin (Nitroglycerin (Sl Tab) 0.4 Mg) 1 tab Q5M PRN SL ANGINA Last administered on 02/19/17 19:48; Admin Dose 1 TAB; Start 02/01/17 at 11:30 Pantoprazole (Protonix Tab) 40 mg DAILY@06 PO Last administered on 03/08/17 06:24; Admin Dose 40 MG; Start 02/02/17 at 06:00 Voriconazole (Vfend) 200 mg BID PO Last administered on 03/08/17 09:49; Admin Dose 200 MG; Start 02/01/17 at 21:00 Senna (Senokot) 1 tab DAILY PRN PO CONSTIPATION Last administered on 03/05/17 21:14; Admin Dose 1 TAB; Start 02/02/17 at 16:00 Lactulose (Enulose) 20 gm DAILY PRN PO CONSTIPATION; Start 02/02/17 at 16:00 IV Flush (NS 10 ml) 10 ml PRN PRN IV IV PROTOCOL; Start 02/06/17 at 20:00 Oxymetazoline HCl (Afrin [place]) 2 spray BID NASAL Last administered on 09:54; Admin Dose 2 SPRAY; Start 02/07/17 at 15:00 Potassium Chloride (Klor-Con 20) 20 meq BID PO Last administered on 03/08/17 09:50; Admin Dose 20 MEQ; Start 02/27/17 at 21:00 Morphine Sulfate (morphine) 2 mg Q4H PRN IV SEVERE PAIN LEVEL 7-10 Last administered on 03/08/17 09:01; Admin Dose 2 MG; Start 02/28/17 at 19:00 Doxycycline Hyclate (Vibramycin) 100 mg BID PO Last administered on 03/08/17 09:49; Admin Dose 100 MG; Start 03/03/17 at 21:00; Stop 03/09/17 at 23:59 Apixaban (Eliquis) 2.5 mg BID PO Last administered on 03/08/17 09:50; Admin Dose 2.5 MG; Start 03/04/17 at 21:00 Hydrocodone Bit/ Homatropine Methylb (Hycodan Liquid) 10 ml TID PO Last administered on 03/08/17 09:49; Admin Dose 10 ML; Start 03/04/17 at 13:00 Furosemide (Lasix) 40 mg BID@,18 PO Last administered on 03/08/17 06:24; Admin Dose 40 MG; Start 03/05/17 at 21:00 TRAMAINE ELLSWORTH Mar 08, 2017 10:52
--- NOTE | 2017-03-08 13:36 | RADRPT ---
Vent Rate: 93 bpm RR Interval: 0 msec DE Interval: 208 msec QRS Duration: 82 msec QT Interval: 364 msec QTC Interval: 452 msec P-R-T [place]: 45 - 13 - 58 degrees NSR Low voltage QRS Borderline ECG Electronically Signed By: Christiano Obrien [id number]
--- NOTE | 2017-03-08 18:53 | CONS ---
Date/Time of Note Date/Time of Note DATE: 03/08/17 TIME: 18:50 Assessment/Plan Assessment/Plan Chief Complaint/Hosp Course IMPRESSION: 1. Chest pain. Assess for acute coronary syndrome in a patient with lung cancer, undergoing chemotherapy, likely secondary to lung cancer.-negative trop x3/no recurrent chest pain at this time 2. Abnormal electrocardiogram with nonspecific ST and T-wave abnormalities, assess for acute coronary syndrome. 3. Bradycardia, transient while on beta matthew. 4. Hypotension-improved 5. Shortness of [id number] PNA 6. Lung cancer with ongoing chemotherapy. 7. Leukocytosis. 8. Anemia. 9. Thrombocytopenia-stable 10.DVT-[id number] on eliquis 11. Renal failure-ongoing s 12. CHF-worsening edema Recc: -Tel -Continue eliquis -Continue abx;'s and f/u cx data -Continue statin -pulmonary toliet -Follow BP closely off of antihypertenives -Continue lasix diuresis and would give additional albumin infusion -Continue marinol for decreased appetite -Contine intermittent albumin -Continue voriconazole/doxycyline Problems: Consultation Date/Type/Reason Admit Date/Time Jan 31, 2017 at 18:59 Initial Consult Date 02/01/17 Type of Consultation: cardiology Reason for Consultation CHF Referring Provider: MARYAM FARMER MD Exam/Review of Systems Vital Signs Vitals Vital Signs Date Time Temp Pulse Resp B/P Pulse Ox O2 Delivery O2 Flow Rate FiO2 03/08/17 16:00 88 03/08/17 15:50 98.3 20 129/65 100 03/08/17 14:29 Nasal Cannula 4.0 03/08/17 04:30 50 Intake and Output 03/07/17 03/07/17 03/08/17 15:00 23:00 07:00 Intake Total 960 ml 500 ml Output Total 1200 ml Balance 960 ml -700 ml Exam Review of Systems: CONSTITUTIONAL: No fevers, chills. PULMONARY: ongoing sob CARDIOVASCULAR: No chest pain/palpitations GASTROINTESTINAL: No nausea/vomiting. GENITOURINARY: No hematuria/dysuria. MUSCULOSKELETAL: No myagias/arthalgias. PSYCHIATRIC: The patient denies depression. NEUROLOGIC: No weakness Constitutional: alert Psych: no complaints Head: normocephalic ENMT: mucosa pink and moist Neck: jvd (9 cm water), supple Respiratory: diminished breath sounds, wheezing Cardiovascular: regular rate and rhythm Gastrointestinal: non-tender, soft Musculoskeletal: muscle weakness (mild generalized) Extremities: pitting pedal edema (BIlateral) Results Result Diagram: 03/08/17 0701 03/08/17 0659 Results 24 hrs Laboratory Tests Test 03/08/17 06:59 03/08/17 07:01 Sodium Level 141 Potassium Level 3.9 Chloride Level 97 Carbon Dioxide Level 38 H Anion Gap 10 Blood Urea Nitrogen 18 Creatinine 1.49 H Glucose Level 82 Calcium Level 8.6 White Blood Count 4.5 #L Red Blood Count 2.70 L Hemoglobin 8.8 L Hematocrit 28.2 L Mean Corpuscular Volume 104.4 H Mean Corpuscular Hemoglobin 32.6 Mean Corpuscular Hemoglobin Concent 31.2 L Red Cell Distribution Width 14.0 Platelet Count 111 L Mean Platelet Volume 10.6 H Neutrophils % 70.3 Lymphocytes % 13.3 L Monocytes % 10.9 Eosinophils % 4.4 Basophils % 0.9 Nucleated Red Blood Cells % 0.0 Neutrophils # 3.2 Lymphocytes # 0.6 L Monocytes # 0.5 Eosinophils # 0.2 Basophils # 0.0 Nucleated Red Blood Cells # 0.0 Medications Medications Current Medications Atorvastatin Calcium (Lipitor) 20 mg QHS PO Last administered on 03/07/17 20: 51; Admin Dose 20 MG; Start 01/31/17 at 21:00 Escitalopram Oxalate (Lexapro) 10 mg DAILY PO Last administered on 03/08/17 09:50; Admin Dose 10 MG; Start 02/01/17 at 09:00 Ondansetron HCl (Zofran Inj) 4 mg Q6 PRN IV NAUSEA Last administered on 07:39; Admin Dose 4 MG; Start 01/31/17 at 19:30 Morphine Sulfate (Ms Contin (Er)) 15 mg BID PO Last administered on 03/07/17 20:51; Admin Dose 15 MG; Start 01/31/17 at 23:00 Nitroglycerin (Nitroglycerin (Sl Tab) 0.4 Mg) 1 tab Q5M PRN SL ANGINA Last administered on 02/19/17 19:48; Admin Dose 1 TAB; Start 02/01/17 at 11:30 Pantoprazole (Protonix Tab) 40 mg DAILY@06 PO Last administered on 03/08/17 06:24; Admin Dose 40 MG; Start 02/02/17 at 06:00 Voriconazole (Vfend) 200 mg BID PO Last administered on 03/08/17 09:49; Admin Dose 200 MG; Start 02/01/17 at 21:00 Senna (Senokot) 1 tab DAILY PRN PO CONSTIPATION Last administered on 03/05/17 21:14; Admin Dose 1 TAB; Start 02/02/17 at 16:00 Lactulose (Enulose) 20 gm DAILY PRN PO CONSTIPATION; Start 02/02/17 at 16:00 IV Flush (NS 10 ml) 10 ml PRN PRN IV IV PROTOCOL; Start 02/06/17 at 20:00 Oxymetazoline HCl (Afrin [place]) 2 spray BID NASAL Last administered on 09:54; Admin Dose 2 SPRAY; Start 02/07/17 at 15:00 Potassium Chloride (Klor-Con 20) 20 meq BID PO Last administered on 03/08/17 09:50; Admin Dose 20 MEQ; Start 02/27/17 at 21:00 Morphine Sulfate (morphine) 2 mg Q4H PRN IV SEVERE PAIN LEVEL 7-10 Last administered on 03/08/17 09:01; Admin Dose 2 MG; Start 02/28/17 at 19:00 Doxycycline Hyclate (Vibramycin) 100 mg BID PO Last administered on 03/08/17 09:49; Admin Dose 100 MG; Start 03/03/17 at 21:00; Stop 03/09/17 at 23:59 Apixaban (Eliquis) 2.5 mg BID PO Last administered on 03/08/17 09:50; Admin Dose 2.5 MG; Start 03/04/17 at 21:00 Hydrocodone Bit/ Homatropine Methylb (Hycodan Liquid) 10 ml TID PO Last administered on 03/08/17 12:49; Admin Dose 10 ML; Start 03/04/17 at 13:00 Furosemide (Lasix) 40 mg BID@,18 PO Last administered on 03/08/17 17:54; Admin Dose 40 MG; Start 03/05/17 at 21:00 MARIAA ÁLVAREZ Mar 08, 2017 18:53
--- NOTE | 2017-03-08 20:37 | CONS ---
Date/Time of Note Date/Time of Note DATE: 03/08/17 TIME: 20:36 Assessment/Plan Assessment/Plan Additional Assessment/Plan 1. Anasarca- Fluid overload multifactorial s/p Diuresis with IV lasix and IV albumin 2. acute kidney injury 3. post obstructive PNA 4. Advanced non small lung CA 5. acute respiratory failure 6. Right subclavian Deep venous thrombosis 7. acute on chronic diastolic heart failure 8. h/o fungal pneumonia 9. Hyperlipidemia 10. hypothyroidism 11. Metabolic alkalosis Plan: s/p IV albumin with Lasix diureisis-on PO lasix- continue lasix 40mg PO BID- today Cr 1.49, HCo3 38 today plan is to continue current Lasix dose and monitor electrolytes IV abx as per ID and PMD, renally dose all abx Monitor Electroltyes and replace as needed. Will follow up Consultation Date/Type/Reason Admit Date/Time Jan 31, 2017 at 18:59 Initial Consult Date 02/14/17 Type of Consultation: NEPHROLOGY Referring Provider: MARYAM FARMER MD Exam/Review of Systems Vital Signs Vitals Vital Signs Date Time Temp Pulse Resp B/P Pulse Ox O2 Delivery O2 Flow Rate FiO2 03/08/17 20:33 92 03/08/17 20:14 98.0 20 116/70 100 03/08/17 14:29 Nasal Cannula 4.0 03/08/17 04:30 50 Intake and Output 03/07/17 03/07/17 03/08/17 15:00 23:00 07:00 Intake Total 960 ml 500 ml Output Total 1200 ml Balance 960 ml -700 ml Exam Constitutional: alert Respiratory: clear to auscultation, diminished breath sounds, normal air movement Cardiovascular: nl pulses, regular rate and rhythm Gastrointestinal: non-tender, soft Musculoskeletal: , 1 to 2 + edema ) Neurological: SKIP TENDER II-XII intact, nl mental status Results Result Diagram: 03/08/17 0701 03/08/17 0659 Results 24 hrs Laboratory Tests Test 03/08/17 06:59 03/08/17 07:01 Sodium Level 141 Potassium Level 3.9 Chloride Level 97 Carbon Dioxide Level 38 H Anion Gap 10 Blood Urea Nitrogen 18 Creatinine 1.49 H Glucose Level 82 Calcium Level 8.6 White Blood Count 4.5 #L Red Blood Count 2.70 L Hemoglobin 8.8 L Hematocrit 28.2 L Mean Corpuscular Volume 104.4 H Mean Corpuscular Hemoglobin 32.6 Mean Corpuscular Hemoglobin Concent 31.2 L Red Cell Distribution Width 14.0 Platelet Count 111 L Mean Platelet Volume 10.6 H Neutrophils % 70.3 Lymphocytes % 13.3 L Monocytes % 10.9 Eosinophils % 4.4 Basophils % 0.9 Nucleated Red Blood Cells % 0.0 Neutrophils # 3.2 Lymphocytes # 0.6 L Monocytes # 0.5 Eosinophils # 0.2 Basophils # 0.0 Nucleated Red Blood Cells # 0.0 Medications Medications Current Medications Atorvastatin Calcium (Lipitor) 20 mg QHS PO Last administered on 03/07/17 20: 51; Admin Dose 20 MG; Start 01/31/17 at 21:00 Escitalopram Oxalate (Lexapro) 10 mg DAILY PO Last administered on 03/08/17 09:50; Admin Dose 10 MG; Start 02/01/17 at 09:00 Ondansetron HCl (Zofran Inj) 4 mg Q6 PRN IV NAUSEA Last administered on 07:39; Admin Dose 4 MG; Start 01/31/17 at 19:30 Morphine Sulfate (Ms Contin (Er)) 15 mg BID PO Last administered on 03/07/17 20:51; Admin Dose 15 MG; Start 01/31/17 at 23:00 Nitroglycerin (Nitroglycerin (Sl Tab) 0.4 Mg) 1 tab Q5M PRN SL ANGINA Last administered on 02/19/17 19:48; Admin Dose 1 TAB; Start 02/01/17 at 11:30 Pantoprazole (Protonix Tab) 40 mg DAILY@06 PO Last administered on 03/08/17 06:24; Admin Dose 40 MG; Start 02/02/17 at 06:00 Voriconazole (Vfend) 200 mg BID PO Last administered on 03/08/17 09:49; Admin Dose 200 MG; Start 02/01/17 at 21:00 Senna (Senokot) 1 tab DAILY PRN PO CONSTIPATION Last administered on 03/05/17 21:14; Admin Dose 1 TAB; Start 02/02/17 at 16:00 Lactulose (Enulose) 20 gm DAILY PRN PO CONSTIPATION; Start 02/02/17 at 16:00 IV Flush (NS 10 ml) 10 ml PRN PRN IV IV PROTOCOL; Start 02/06/17 at 20:00 Oxymetazoline HCl (Afrin [place]) 2 spray BID NASAL Last administered on 09:54; Admin Dose 2 SPRAY; Start 02/07/17 at 15:00 Potassium Chloride (Klor-Con 20) 20 meq BID PO Last administered on 03/08/17 09:50; Admin Dose 20 MEQ; Start 02/27/17 at 21:00 Morphine Sulfate (morphine) 2 mg Q4H PRN IV SEVERE PAIN LEVEL 7-10 Last administered on 03/08/17 09:01; Admin Dose 2 MG; Start 02/28/17 at 19:00 Doxycycline Hyclate (Vibramycin) 100 mg BID PO Last administered on 03/08/17 09:49; Admin Dose 100 MG; Start 03/03/17 at 21:00; Stop 03/09/17 at 23:59 Apixaban (Eliquis) 2.5 mg BID PO Last administered on 03/08/17 09:50; Admin Dose 2.5 MG; Start 03/04/17 at 21:00 Hydrocodone Bit/ Homatropine Methylb (Hycodan Liquid) 10 ml TID PO Last administered on 03/08/17 12:49; Admin Dose 10 ML; Start 03/04/17 at 13:00 Furosemide (Lasix) 40 mg BID@06,18 PO Last administered on 03/08/17 17:54; Admin Dose 40 MG; Start 03/05/17 at 21:00 MELODY JENSEN MD Mar 08, 2017 20:37
[2017-03-08] MEDS: ATORVASTATIN 20 MG TAB PO SCH (21:06)
[2017-03-09] VITALS (13 sets, daily range): BP systolic 104–144; BP diastolic 65–79; PULSE 80–93; RESP 19–21
[2017-03-09] MEDS: LEVALBUTEROL (NEB) 0.63 MG/3 ML AMP HHN SCH ×3 (01:33→14:48)
[2017-03-09] MEDS: PANTOPRAZOLE (EC) 40 MG TAB PO SCH (05:53)
[2017-03-09] MEDS: FUROSEMIDE 40 MG TAB PO SCH ×2 (05:53→17:01)
[2017-03-09] MEDS: morphine 4 MG/ML VIAL IV PRN ×3 (06:00→16:01)
[2017-03-09 08:27] LABS: BASOPHILS % 0.4 % (0.0-2.0); EOSINOPHILS # 0.2 10^3/ul (0.0-0.5); EOSINOPHILS % 3.1 % (0.0-7.0); HEMATOCRIT 28.6 % (42.0-52.0); HEMOGLOBIN 8.6 g/dl (14.0-18.0); LYMPHOCYTES # 0.7 10^3/ul (0.8-2.9); LYMPHOCYTES % 14.2 % (15.0-51.0); MEAN CORPUSCULAR HEMOGLOBIN 31.2 pg (29.0-33.0); MEAN CORPUSCULAR HGB CONC 30.1 g/dl (32.0-37.0); MEAN CORPUSCULAR VOLUME 103.6 fl (82.0-101.0); MONOCYTE # 0.5 10^3/ul (0.3-0.9); MONOCYTES % 9.6 % (0.0-11.0); NEUTROPHIL # 3.8 10^3/ul (1.6-7.5); NEUTROPHILS % 72.5 % (39.0-77.0); PLATELET COUNT 119 10^3/UL (140-415); RED BLOOD COUNT 2.76 10^6/ul (4.70-6.10); WHITE BLOOD COUNT 5.2 10^3/ul (4.8-10.8)
[2017-03-09] MEDS: LEVOTHYROXINE 75 MCG TAB PO SCH (08:31)
[2017-03-09] MEDS: APIXABAN 5 MG TABLET PO SCH (08:32)
[2017-03-09] MEDS: HYDROCODONE/HOMATROPINE 5ML CUP PO SCH ×2 (08:32→12:34)
[2017-03-09] MEDS: DRONABINOL 2.5 MG CAP PO SCH ×3 (08:32→16:58)
[2017-03-09] MEDS: POTASSIUM CHLORIDE (SR) 20 MEQ TAB PO SCH (08:33)
[2017-03-09] MEDS: VORICONAZOLE 200 MG TAB PO SCH (08:34)
[2017-03-09] MEDS: DOXYCYCLINE 100 MG TAB PO SCH (08:34)
[2017-03-09] MEDS: ESCITALOPRAM 10 MG TAB PO SCH (08:34)
[2017-03-09] MEDS: morphine (ER) 15 MG TAB PO SCH (08:34)
[2017-03-09 08:45] LABS: CALCIUM 8.8 mg/dl (8.4-10.2); CREATININE 1.44 mg/dl (0.61-1.24); POTASSIUM 3.8 mmol/L (3.5-5.1)
[2017-03-09] MEDS: OXYMETAZOLINE 0.05% 15 ML NAS SPRAY NASAL SCH (09:44)
[2017-03-09] MEDS: ONDANSETRON 4 MG INJ IV PRN ×2 (09:44→16:58)
--- NOTE | 2017-03-09 10:33 | CONS ---
Date/Time of Note Date/Time of Note DATE: 03/09/17 TIME: :28 Assessment/Plan Assessment/Plan Chief Complaint/Hosp Course - h/o sepsis due to recurrent pneumonia, and to a lessor degree due to paronychia. 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 Aspergillus antibody was >1:64 but aspergillus antigen in serum by EIA was negative during his last admission. - macrocytic anemia - thrombocytopenia - h/o DVT of b/l UEs - b/l knee pain due to DJD - h/o post-obstructive pneumonia - h/o HTN, CAD, hyperlipidemia - h/o paroxysmal A fib - h/o hypothyroidism with elevated TSH level - HIV negative in 2013 - nonocclusive thrombus around the PICC catheter within the left brachial vein, axillary vein and subclavian vein per doppler 02/13/2017 recommendations: - pending: voriconazole trough level on 03/07/2017 - continue PO doxycycline (Pt received vancomycin 02/27/2017-03/03/2017) until (today) - Pt's been on voriconazole; will adjust the dose/change depending on the result of trough level and GFR - Medical did not authorize voriconazole as outpatient as of 01/2017 and therefore, I plan to request authorization for this (or another antifungal if I change) as outpatient - I instructed the disease case manager rn to ensure that the hand control specialist at [facility] can see him without Pt's enrolling in their primary care clinic (in the past, the pulmonary department at [facility] agreed to him and requested that Pt be seen at their primary care clinic first. However, Pt's been a long-time patient of Dr. Dugan as his PMD) management d/w Pt, his disease case manager rn Problems: Consultation Date/Type/Reason Admit Date/Time Jan 31, 2017 at 18:59 Initial Consult Date 02/14/17 Type of Consultation: ID Referring Provider: MARYAM FARMER MD 24 HR Interval Summary Constitutional: no complaints Detailed Summary Eyes: no complaints ENT: no complaints Respiratory: cough, shortness of breath, No sputum Cardiovascular: no complaints Gastrointestinal: no complaints Genitourinary: no complaints Musculoskeletal: no complaints Skin: skin lesions (nail changes and detachment due to chemo) Neurologic: no complaints Psychological: no complaints Exam/Review of Systems Vital Signs Vitals Vital Signs Date Time Temp Pulse Resp B/P Pulse Ox O2 Delivery O2 Flow Rate FiO2 03/09/17 08:08 89 03/09/17 07:45 4.0 03/09/17 07:45 16 97 Nasal Cannula 03/09/17 07:31 98.6 111/65 03/09/17 03:18 50 Intake and Output 03/08/17 03/08/17 03/09/17 15:00 23:00 07:00 Intake Total 920 ml 300 ml Output Total 500 ml Balance 920 ml -200 ml Exam Constitutional: alert, obese, oriented Psych: nl mood/affect, no complaints Head: other (alopecia) Eyes: nl conjunctiva, nl lids ENMT: nl external ears & nose, nl nasal mucosa & septum Neck: supple Respiratory: diminished breath sounds Cardiovascular: nl pulses, regular rate and rhythm Musculoskeletal: nl extremities to inspection Extremities: No edema Neurological: SENIOR ADVISOR II-XII intact, nl mental status, nl speech, nl strength Skin: rash or lesions (skin changes and detachment; no purulence or erythema) Results Result Diagram: 03/09/17 0757 03/09/17 0757 Results 24 hrs Laboratory Tests Test 03/09/17 07:57 White Blood Count 5.2 Red Blood Count 2.76 L Hemoglobin 8.6 L Hematocrit 28.6 L Mean Corpuscular Volume 103.6 H Mean Corpuscular Hemoglobin 31.2 Mean Corpuscular Hemoglobin Concent 30.1 L Red Cell Distribution Width 14.0 Platelet Count 119 L Mean Platelet Volume 11.0 H Neutrophils % 72.5 Lymphocytes % 14.2 L Monocytes % 9.6 Eosinophils % 3.1 Basophils % 0.4 Nucleated Red Blood Cells % 0.0 Neutrophils # 3.8 Lymphocytes # 0.7 L Monocytes # 0.5 Eosinophils # 0.2 Basophils # 0.0 Nucleated Red Blood Cells # 0.0 Sodium Level 139 Potassium Level 3.8 Chloride Level 96 L Carbon Dioxide Level 37 H Anion Gap 10 Blood Urea Nitrogen 17 Creatinine 1.44 H Glucose Level 84 Calcium Level 8.8 Medications Medications Current Medications Atorvastatin Calcium (Lipitor) 20 mg QHS PO Last administered on 03/08/17 21: 06; Admin Dose 20 MG; Start 01/31/17 at 21:00 Escitalopram Oxalate (Lexapro) 10 mg DAILY PO Last administered on 03/09/17 08:34; Admin Dose 10 MG; Start 02/01/17 at 09:00 Ondansetron HCl (Zofran Inj) 4 mg Q6 PRN IV NAUSEA Last administered on 09:44; Admin Dose 4 MG; Start 01/31/17 at 19:30 Morphine Sulfate (Ms Contin (Er)) 15 mg BID PO Last administered on 03/09/17 08:34; Admin Dose 15 MG; Start 01/31/17 at 23:00 Nitroglycerin (Nitroglycerin (Sl Tab) 0.4 Mg) 1 tab Q5M PRN SL ANGINA Last administered on 02/19/17 19:48; Admin Dose 1 TAB; Start 02/01/17 at 11:30 Pantoprazole (Protonix Tab) 40 mg DAILY@06 PO Last administered on 03/09/17 05:53; Admin Dose 40 MG; Start 02/02/17 at 06:00 Voriconazole (Vfend) 200 mg BID PO Last administered on 03/09/17 08:34; Admin Dose 200 MG; Start 02/01/17 at 21:00 Senna (Senokot) 1 tab DAILY PRN PO CONSTIPATION Last administered on 03/05/17 21:14; Admin Dose 1 TAB; Start 02/02/17 at 16:00 Lactulose (Enulose) 20 gm DAILY PRN PO CONSTIPATION; Start 02/02/17 at 16:00 IV Flush (NS 10 ml) 10 ml PRN PRN IV IV PROTOCOL; Start 02/06/17 at 20:00 Oxymetazoline HCl (Afrin [place]) 2 spray BID NASAL Last administered on 09:44; Admin Dose 2 SPRAY; Start 02/07/17 at 15:00 Potassium Chloride (Klor-Con 20) 20 meq BID PO Last administered on 03/09/17 08:33; Admin Dose 20 MEQ; Start 02/27/17 at 21:00 Morphine Sulfate (morphine) 2 mg Q4H PRN IV SEVERE PAIN LEVEL 7-10 Last administered on 03/09/17 06:00; Admin Dose 2 MG; Start 02/28/17 at 19:00 Doxycycline Hyclate (Vibramycin) 100 mg BID PO Last administered on 03/09/17 08:34; Admin Dose 100 MG; Start 03/03/17 at 21:00; Stop 03/09/17 at 23:59 Apixaban (Eliquis) 2.5 mg BID PO Last administered on 03/09/17 08:32; Admin Dose 2.5 MG; Start 03/04/17 at 21:00 Hydrocodone Bit/ Homatropine Methylb (Hycodan Liquid) 10 ml TID PO Last administered on 03/09/17 08:32; Admin Dose 10 ML; Start 03/04/17 at 13:00 Furosemide (Lasix) 40 mg BID@,18 PO Last administered on 03/09/17 05:53; Admin Dose 40 MG; Start 03/05/17 at 21:00 LUKE CAAL M.D. Mar 09, 2017 10:33
--- NOTE | 2017-03-09 15:58 | CONS ---
Date/Time of Note Date/Time of Note DATE: 03/09/17 TIME: 15:57 Assessment/Plan Assessment/Plan Additional Assessment/Plan 1. Anasarca- Fluid overload multifactorial s/p Diuresis with IV lasix and IV albumin 2. acute kidney injury 3. post obstructive PNA 4. Advanced non small lung CA 5. acute respiratory failure 6. Right subclavian Deep venous thrombosis 7. acute on chronic diastolic heart failure 8. h/o fungal pneumonia 9. Hyperlipidemia 10. hypothyroidism 11. Metabolic alkalosis Plan: s/p IV albumin with Lasix diureisis-on PO lasix- continue lasix 40mg PO BID- today Cr 1.44, HCo3 37 today plan is to continue current Lasix dose and monitor electrolytes IV abx as per ID and PMD, renally dose all abx Monitor Electroltyes and replace as needed. Will follow up Consultation Date/Type/Reason Admit Date/Time Jan 31, 2017 at 18:59 Initial Consult Date 02/14/17 Type of Consultation: NEPHROLOGY Referring Provider: MARYAM FARMER MD Exam/Review of Systems Vital Signs Vitals Vital Signs Date Time Temp Pulse Resp B/P Pulse Ox O2 Delivery O2 Flow Rate FiO2 03/09/17 14:50 89 18 98 Nasal Cannula 4.0 03/09/17 11:37 98.3 144/79 03/09/17 03:18 50 Intake and Output 03/08/17 03/08/17 03/09/17 14:59 22:59 06:59 Intake Total 920 ml 300 ml Output Total 500 ml Balance 920 ml -200 ml Exam Constitutional: alert Respiratory: clear to auscultation, diminished breath sounds, normal air movement Cardiovascular: nl pulses, regular rate and rhythm Gastrointestinal: non-tender, soft Musculoskeletal: , 1 to 2 + edema ) Neurological: PRISM MEASURER II-XII intact, nl mental status Results Result Diagram: 03/09/17 0757 03/09/17 0757 Results 24 hrs Laboratory Tests Test 03/09/17 07:57 White Blood Count 5.2 Red Blood Count 2.76 L Hemoglobin 8.6 L Hematocrit 28.6 L Mean Corpuscular Volume 103.6 H Mean Corpuscular Hemoglobin 31.2 Mean Corpuscular Hemoglobin Concent 30.1 L Red Cell Distribution Width 14.0 Platelet Count 119 L Mean Platelet Volume 11.0 H Neutrophils % 72.5 Lymphocytes % 14.2 L Monocytes % 9.6 Eosinophils % 3.1 Basophils % 0.4 Nucleated Red Blood Cells % 0.0 Neutrophils # 3.8 Lymphocytes # 0.7 L Monocytes # 0.5 Eosinophils # 0.2 Basophils # 0.0 Nucleated Red Blood Cells # 0.0 Sodium Level 139 Potassium Level 3.8 Chloride Level 96 L Carbon Dioxide Level 37 H Anion Gap 10 Blood Urea Nitrogen 17 Creatinine 1.44 H Glucose Level 84 Calcium Level 8.8 Medications Medications Current Medications Atorvastatin Calcium (Lipitor) 20 mg QHS PO Last administered on 03/08/17 21: 06; Admin Dose 20 MG; Start 01/31/17 at 21:00 Escitalopram Oxalate (Lexapro) 10 mg DAILY PO Last administered on 03/09/17 08:34; Admin Dose 10 MG; Start 02/01/17 at 09:00 Ondansetron HCl (Zofran Inj) 4 mg Q6 PRN IV NAUSEA Last administered on 09:44; Admin Dose 4 MG; Start 01/31/17 at 19:30 Morphine Sulfate (Ms Contin (Er)) 15 mg BID PO Last administered on 03/09/17 08:34; Admin Dose 15 MG; Start 01/31/17 at 23:00 Nitroglycerin (Nitroglycerin (Sl Tab) 0.4 Mg) 1 tab Q5M PRN SL ANGINA Last administered on 02/19/17 19:48; Admin Dose 1 TAB; Start 02/01/17 at 11:30 Pantoprazole (Protonix Tab) 40 mg DAILY@06 PO Last administered on 03/09/17 05:53; Admin Dose 40 MG; Start 02/02/17 at 06:00 Voriconazole (Vfend) 200 mg BID PO Last administered on 03/09/17 08:34; Admin Dose 200 MG; Start 02/01/17 at 21:00 Senna (Senokot) 1 tab DAILY PRN PO CONSTIPATION Last administered on 03/05/17 21:14; Admin Dose 1 TAB; Start 02/02/17 at 16:00 Lactulose (Enulose) 20 gm DAILY PRN PO CONSTIPATION; Start 02/02/17 at 16:00 IV Flush (NS 10 ml) 10 ml PRN PRN IV IV PROTOCOL; Start 02/06/17 at 20:00 Oxymetazoline HCl (Afrin [place]) 2 spray BID NASAL Last administered on 09:44; Admin Dose 2 SPRAY; Start 02/07/17 at 15:00 Potassium Chloride (Klor-Con 20) 20 meq BID PO Last administered on 03/09/17 08:33; Admin Dose 20 MEQ; Start 02/27/17 at 21:00 Morphine Sulfate (morphine) 2 mg Q4H PRN IV SEVERE PAIN LEVEL 7-10 Last administered on 03/09/17 10:41; Admin Dose 2 MG; Start 02/28/17 at 19:00 Doxycycline Hyclate (Vibramycin) 100 mg BID PO Last administered on 03/09/17 08:34; Admin Dose 100 MG; Start 03/03/17 at 21:00; Stop 03/09/17 at 23:59 Apixaban (Eliquis) 2.5 mg BID PO Last administered on 03/09/17 08:32; Admin Dose 2.5 MG; Start 03/04/17 at 21:00 Hydrocodone Bit/ Homatropine Methylb (Hycodan Liquid) 10 ml TID PO Last administered on 03/09/17 12:34; Admin Dose 10 ML; Start 03/04/17 at 13:00 Furosemide (Lasix) 40 mg BID@,18 PO Last administered on 03/09/17 05:53; Admin Dose 40 MG; Start 03/05/17 at 21:00 MELODY JENSEN MD Mar 09, 2017 15:58
[2017-03-09] MEDS ORDERED: SYN75 PO (17:45)
[2017-03-09] MEDS ORDERED: FURO40TA4 PO (17:45)
[2017-03-09] MEDS ORDERED: MORP15TA3 PO (17:45)
[2017-03-09] MEDS ORDERED: APIX5TAB PO (17:45)
[2017-03-09] MEDS ORDERED: PANT40TA4 PO (17:45)
[2017-03-09] MEDS ORDERED: ESCI10TA48 PO (17:45)
[2017-03-09] MEDS ORDERED: VORI200T9 PO (17:45)
[2017-03-09] MEDS ORDERED: SENN-53 PO (17:45)
[2017-03-09] MEDS ORDERED: POTA20TA15 PO (17:45)
[2017-03-09] MEDS ORDERED: DRON2.5C PO (17:58)
[2017-03-09] MEDS ORDERED: HYDR5SYR PO (17:58)
--- NOTE | 2017-03-09 18:37 | CONS ---
Date/Time of Note Date/Time of Note DATE: 03/09/17 TIME: 18:33 Assessment/Plan Assessment/Plan Chief Complaint/Hosp Course IMPRESSION: 1. Chest pain. Assess for acute coronary syndrome in a patient with lung cancer, undergoing chemotherapy, likely secondary to lung cancer.-negative trop x3/no recurrent chest pain at this time 2. Abnormal electrocardiogram with nonspecific ST and T-wave abnormalities, assess for acute coronary syndrome. 3. Bradycardia, transient while on beta matthew. 4. Hypotension-improved 5. Shortness of gfsjzd-vwuw-duzdjkeduuk PNA 6. Lung cancer with ongoing chemotherapy. 7. Leukocytosis. 8. Anemia. 9. Thrombocytopenia-stable 10.DVT-RUE on eliquis 11. Renal failure-ongoing s 12. CHF-worsening edema Recc: -Tel -Continue eliquis -Continue abx;'s and f/u cx data -Continue statin -pulmonary toliet -Follow BP closely off of antihypertenives -Continue lasix diuresis -Continue marinol for decreased appetite -Contine intermittent albumin -Continue voriconazole/doxycyline Problems: Consultation Date/Type/Reason Admit Date/Time Jan 31, 2017 at 18:59 Initial Consult Date 02/01/17 Type of Consultation: cardiology Reason for Consultation chest pain Referring Provider: MARYAM FARMER MD Exam/Review of Systems Vital Signs Vitals Vital Signs Date Time Temp Pulse Resp B/P Pulse Ox O2 Delivery O2 Flow Rate FiO2 03/09/17 16:14 93 03/09/17 16:04 97.4 21 137/72 99 03/09/17 14:50 Nasal Cannula 4.0 03/09/17 03:18 50 Intake and Output 03/08/17 03/08/17 03/09/17 15:00 23:00 07:00 Intake Total 920 ml 300 ml Output Total 500 ml Balance 920 ml -200 ml Exam Review of Systems: CONSTITUTIONAL: No fevers, chills. PULMONARY: No sob CARDIOVASCULAR: No chest pain/palpitations GASTROINTESTINAL: No nausea/vomiting. GENITOURINARY: No hematuria/dysuria. MUSCULOSKELETAL: No myagias/arthalgias. PSYCHIATRIC: The patient denies depression. NEUROLOGIC: No weakness Constitutional: alert Psych: no complaints Head: normocephalic ENMT: mucosa pink and moist Neck: jvd (9 cm water), supple Respiratory: diminished breath sounds (at bases/B), wheezing (expiratory) Cardiovascular: regular rate and rhythm Gastrointestinal: non-tender, soft Musculoskeletal: muscle weakness (mild generalized) Extremities: edema (BIlateral LE) Neurological: other (No focal deficits) Results Result Diagram: 03/09/17 0757 03/09/17 0757 Results 24 hrs Laboratory Tests Test 03/09/17 07:57 White Blood Count 5.2 Red Blood Count 2.76 L Hemoglobin 8.6 L Hematocrit 28.6 L Mean Corpuscular Volume 103.6 H Mean Corpuscular Hemoglobin 31.2 Mean Corpuscular Hemoglobin Concent 30.1 L Red Cell Distribution Width 14.0 Platelet Count 119 L Mean Platelet Volume 11.0 H Neutrophils % 72.5 Lymphocytes % 14.2 L Monocytes % 9.6 Eosinophils % 3.1 Basophils % 0.4 Nucleated Red Blood Cells % 0.0 Neutrophils # 3.8 Lymphocytes # 0.7 L Monocytes # 0.5 Eosinophils # 0.2 Basophils # 0.0 Nucleated Red Blood Cells # 0.0 Sodium Level 139 Potassium Level 3.8 Chloride Level 96 L Carbon Dioxide Level 37 H Anion Gap 10 Blood Urea Nitrogen 17 Creatinine 1.44 H Glucose Level 84 Calcium Level 8.8 Medications Medications Current Medications Atorvastatin Calcium (Lipitor) 20 mg QHS PO Last administered on 03/08/17 21: 06; Admin Dose 20 MG; Start 01/31/17 at 21:00 Escitalopram Oxalate (Lexapro) 10 mg DAILY PO Last administered on 03/09/17 08:34; Admin Dose 10 MG; Start 02/01/17 at 09:00 Ondansetron HCl (Zofran Inj) 4 mg Q6 PRN IV NAUSEA Last administered on 16:58; Admin Dose 4 MG; Start 01/31/17 at 19:30 Morphine Sulfate (Ms Contin (Er)) 15 mg BID PO Last administered on 03/09/17 08:34; Admin Dose 15 MG; Start 01/31/17 at 23:00 Nitroglycerin (Nitroglycerin (Sl Tab) 0.4 Mg) 1 tab Q5M PRN SL ANGINA Last administered on 02/19/17 19:48; Admin Dose 1 TAB; Start 02/01/17 at 11:30 Pantoprazole (Protonix Tab) 40 mg DAILY@06 PO Last administered on 03/09/17 05:53; Admin Dose 40 MG; Start 02/02/17 at 06:00 Voriconazole (Vfend) 200 mg BID PO Last administered on 03/09/17 08:34; Admin Dose 200 MG; Start 02/01/17 at 21:00 Senna (Senokot) 1 tab DAILY PRN PO CONSTIPATION Last administered on 03/05/17 21:14; Admin Dose 1 TAB; Start 02/02/17 at 16:00 Lactulose (Enulose) 20 gm DAILY PRN PO CONSTIPATION; Start 02/02/17 at 16:00 IV Flush (NS 10 ml) 10 ml PRN PRN IV IV PROTOCOL; Start 02/06/17 at 20:00 Oxymetazoline HCl (Afrin [place]) 2 spray BID NASAL Last administered on 09:44; Admin Dose 2 SPRAY; Start 02/07/17 at 15:00 Potassium Chloride (Klor-Con 20) 20 meq BID PO Last administered on 03/09/17 08:33; Admin Dose 20 MEQ; Start 02/27/17 at 21:00 Morphine Sulfate (morphine) 2 mg Q4H PRN IV SEVERE PAIN LEVEL 7-10 Last administered on 03/09/17 16:01; Admin Dose 2 MG; Start 02/28/17 at 19:00 Doxycycline Hyclate (Vibramycin) 100 mg BID PO Last administered on 03/09/17 08:34; Admin Dose 100 MG; Start 03/03/17 at 21:00; Stop 03/09/17 at 23:59 Apixaban (Eliquis) 2.5 mg BID PO Last administered on 03/09/17 08:32; Admin Dose 2.5 MG; Start 03/04/17 at 21:00 Hydrocodone Bit/ Homatropine Methylb (Hycodan Liquid) 10 ml TID PO Last administered on 03/09/17 12:34; Admin Dose 10 ML; Start 03/04/17 at 13:00 Furosemide (Lasix) 40 mg BID@,18 PO Last administered on 03/09/17 17:01; Admin Dose 40 MG; Start 03/05/17 at 21:00 MARIAA ÁLVAREZ Mar 09, 2017 18:37
== END 2017-03-09 19:15 | disposition home or self-care (01) | DRG 871 ==
LOC: E/R 14:40 → MS4 18:59 → PP2 02-14 01:35 → MS4 02-19 20:58
PROVIDERS: ADMIT Internal Medicine; ATTEND Internal Medicine
PROC: 5A09357 Assistance with Respiratory Ventilation, Less than 24 Consecutive Hours, Continuous Positive Airway Pressure (ICD-10-PCS; 2017-01-31)
PROC: 02HV33Z Insertion of Infusion Device into Superior Vena Cava, Percutaneous Approach (ICD-10-PCS; principal; 2017-02-06)
PROC: 02HV33Z Insertion of Infusion Device into Superior Vena Cava, Percutaneous Approach (ICD-10-PCS; 2017-02-10)
DX: A41.9 Sepsis, unspecified organism (principal); I50.33 Acute on chronic diastolic (congestive) heart failure; J96.01 Acute respiratory failure with hypoxia; N17.9 Acute kidney failure, unspecified; E87.3 Alkalosis; J18.9 Pneumonia, unspecified organism; J96.02 Acute respiratory failure with hypercapnia; D69.6 Thrombocytopenia, unspecified; E87.1 Hypo-osmolality and hyponatremia; I11.0 Hypertensive heart disease with heart failure; I82.B11 Acute embolism and thrombosis of right subclavian vein; C34.90 Malignant neoplasm of unspecified part of unspecified bronchus or lung; T82.868A Thrombosis due to vascular prosthetic devices, implants and grafts, initial encounter; J44.9 Chronic obstructive pulmonary disease, unspecified; I25.10 Atherosclerotic heart disease of native coronary artery without angina pectoris; E78.5 Hyperlipidemia, unspecified; L03.012 Cellulitis of left finger; E03.9 Hypothyroidism, unspecified; E66.9 Obesity, unspecified; B95.61 Methicillin susceptible Staphylococcus aureus infection as the cause of diseases classified elsewhere; B95.1 Streptococcus, group B, as the cause of diseases classified elsewhere; Y83.8 Other surgical procedures as the cause of abnormal reaction of the patient, or of later complication, without mention of misadventure at the time of the procedure; Y92.238 Other place in hospital as the place of occurrence of the external cause; D53.9 Nutritional anemia, unspecified; E87.6 Hypokalemia; I48.0 Paroxysmal atrial fibrillation; Z68.38 Body mass index [BMI] 38.0-38.9, adult; Z79.899 Other long term (current) drug therapy; Z86.718 Personal history of other venous thrombosis and embolism; Z87.891 Personal history of nicotine dependence
CPT/HCPCS: 36415; 36430; 36569; 36600; 71010; 71020; 71275; 73130; 74000; 76937; 80048; 80053; 80061; 80076; 80202; 81001; 82040; 82270; 82550; 82553; 82565; 82803; 83605; 83880; 84443; 84484; 84520; 85025; 85610; 85730; 86635; 86644; 86738; 86850; 86900; 86901; 86920; 87040; 87070; 87086; 87400; 87449; 93005; 93923; 93970; 93971; 94640; 94660; 94664; 96374; 96375; 97110; 97116; 97161; 97530; J1120; J1940; C9113; J0692; J1170; J1650; J2270; J2405; J2997; J3370; J3480; J7030; J7040; J7042; J7050; P9016; P9047; Q9967

== ENCOUNTER 2017-03-10 17:47 | Inpatient (IN) | payer MEDICAID ==
[~2017-03-10] VITALS: Ht 172.7 cm; Wt 126.3 kg
[~2017-03-10 17:47] MED LIST changes: +APIX5TAB PO; -ASPI-664 PO; -DOCU100C26 PO; +DRON2.5C PO; -ENOX100D2 SC; -FURO20TA3 PO; +FURO40TA4 PO; +HYDR5SYR PO; -LEVO750T25 PO; -LEVO75TA5 PO; +PANT40TA4 PO; +POTA20TA15 PO; -Promethazine/Codeine Syp PO; +SYN75 PO; -TRAZ50TA18 PO; -VORI200T12 PO; +VORI200T9 PO
[2017-03-10 17:50] VITALS: Ht 172.7 cm; Wt 126.3 kg
--- NOTE | 2017-03-10 20:11 | ERD ---
ER Documentation Chief Complaint Date/Time DATE: 03/10/17 TIME: 20:10 Chief Complaint Complains of SOB x 3 days HX of Lung CA stage 4 HPI This 61-year-old male comes in complaining of shortness of breath and cough at times. Occasional posttussive emesis. Says that he is chronically short of breath but is a little worse now. He is frequently admitted to this hospital for shortness of breath symptoms and pneumonia as he does suffer from lung cancer. Denies any chest pain, fevers and chills. ROS All systems reviewed and are negative except as per history of present illness. Medications Home Meds Active Scripts Dronabinol* (Dronabinol*) 2.5 Mg Capsule, 5 MG PO AC MEALS for 30 Days, CAP Prov:LUBA EARLY 03/09/17 Hydrocodone Bit/Homatrop Me-Br (Hydrocodone-Homatropine Syrup) 5 Ml Syrup, 10 ML PO TID for 30 Days Prov:LUBA EARLY 03/09/17 Voriconazole* (Voriconazole*) 200 Mg Tablet, 200 MG PO BID for 30 Days, TAB Prov:LUBA EARLY 03/09/17 Sennosides* (Senna Lax*) 8.6 Mg Tablet, 1 TAB PO DAILY Y for CONSTIPATION for 30 Days, TAB Prov:LUBA EARLY 03/09/17 Potassium Chloride* (K-Dur*) 20 Meq Tab.prt.sr, 20 MEQ PO BID for 30 Days Prov:LUBA EARLY 03/09/17 Pantoprazole* (Pantoprazole*) 40 Mg Tablet.dr, 40 MG PO DAILY@06 for 30 Days Prov:LUBA EARLY 03/09/17 Morphine Sulfate (Morphine Sulfate ER) 15 Mg Tablet.er, 15 MG PO BID for 30 Days , TAB Prov:LUBA EARLY 03/09/17 Levothyroxine Sodium* (Synthroid*) 75 Mcg Tablet, 75 MCG PO BEFORE BREAKFAST for 30 Days, TAB Prov:LUBA EARLY 03/09/17 Furosemide* (Furosemide*) 40 Mg Tablet, 40 MG PO BID@06,18 for 30 Days, TAB Prov:LUBA EARLY 03/09/17 Escitalopram Oxalate* (Escitalopram Oxalate*) 10 Mg Tablet, 10 MG PO DAILY for 30 Days, TAB Prov:LUBA EARLY 03/09/17 Apixaban* (Eliquis*) 5 Mg Tablet, 2.5 MG PO BID for 30 Days, TAB Prov:MIC EARLYA 03/09/17 Esomeprazole Mag Trihydrate (Nexium) 40 Mg Capsule.dr, 40 MG PO DAILY for 30 Days, #30 CAP Prov:RANDIRYANEDDIELUBA 09/28/16 Atorvastatin Calcium* (Atorvastatin Calcium*) 20 Mg Tablet, 20 MG PO QHS for 30 Days, #30 TAB Prov:SHAGUFTA EARLYLANA 09/28/16 Discontinued Reported Medications Sulfamethoxazole/Trimethoprim* (Bactrim Ds* Tablet) 1 Each Tablet, 1 TAB PO BID , TAB FOR 7 DAYS 01/31/17 Cephalexin* (Cephalexin*) 500 Mg Capsule, 500 MG PO TID, #21 CAP FOR 7DAYS 01/31/17 Aspirin* (Aspirin* EC) 81 Mg Tablet.dr, 81 MG PO Q7D, TAB 01/31/17 Metoprolol Succinate* (Toprol XL*) 50 Mg Tab.er.24h, 50 MG PO BID, #30 TAB 01/31/17 Discontinued Scripts Furosemide* (Furosemide*) 20 Mg Tablet, 20 MG PO DAILY for 30 Days, #60 TAB Prov:NNEKALUBA 09/28/16 Levothyroxine Sodium* (Levothyroxine Sodium*) 75 Mcg Tablet, 75 MCG PO BEFORE BREAKFAST, #30 TAB Prov:RANDIRYANEDDIELUBA 09/28/16 Escitalopram Oxalate* (Escitalopram Oxalate*) 10 Mg Tablet, 10 MG PO DAILY for 30 Days, #30 TAB Prov:LUBA EARLY 09/28/16 Allergies Allergies: Coded Allergies: No Known Allergy (Unverified , 01/31/17) PMhx/Soc History of Surgery: Yes (right middle finger partial amputation 1985, cholecystectomy, rhinoplasty) Anesthesia Reaction: No Hx Neurological Disorder: No Hx Respiratory Disorders: Yes (stage 4 lung CA, COPD, PNA, FORMER SMOKER) Hx Cardiac Disorders: Yes (HTN, AFIB, CAD) Hx Psychiatric Problems: No Hx Miscellaneous Medical Probl: Yes (See EMR) Hx Alcohol Use: No Hx Substance Use: No Hx Tobacco Use: Yes Smoking Status: Former smoker Physical Exam Vitals Vital Signs Date Time Temp Pulse Resp B/P Pulse Ox O2 Delivery O2 Flow Rate FiO2 03/10/17 23:05 99.0 81 10 132/86 99 Nasal Cannula 5.0 03/10/17 21:30 98.8 81 18 135/104 99 Nasal Cannula 5.0 03/10/17 20:00 98.8 82 11 120/96 99 Nasal Cannula 5.0 03/10/17 19:40 4.0 33 03/10/17 18:40 Nasal Cannula 5.0 03/10/17 18:40 Nasal Cannula 5 03/10/17 18:40 98.8 84 20 111/86 99 Nasal Cannula 5.0 03/10/17 17:50 98.8 92 20 127/78 92 Physical Exam Const: [] Head: Atraumatic Eyes: Normal Conjunctiva ENT: Normal External Ears, Nose and Mouth. Neck: Full range of motion..~ No meningismus. Resp: Bilateral expiratory wheezing difficult to differentiate from possible upper airway sound. Cardio: Regular rate and rhythm, no murmurs Abd: Soft, non tender, non distended. Normal bowel sounds Skin: No petechiae or rashes, very pale Back: No midline or flank tenderness Ext: No cyanosis, mild pedal edema Neur: Awake and alert and oriented 3, no focal deficits Psych: Normal Mood and Affect Result Diagram: 03/10/17184903/10/171849 Results 24 hrs Laboratory Tests Test 03/10/17 18:50 03/10/17 19:26 White Blood Count 6.310^3/ul Red Blood Count 2.8610^6/ul Hemoglobin 9.3g/dl Hematocrit 30.0% Mean Corpuscular Volume 104.9fl Mean Corpuscular Hemoglobin 32.5pg Mean Corpuscular Hemoglobin Concent 31.0g/dl Red Cell Distribution Width 13.6% Platelet Count 46774^3/UL Mean Platelet Volume 11.3fl Neutrophils % 73.9% Lymphocytes % 12.1% Monocytes % 11.1% Eosinophils % 2.1% Basophils % 0.5% Nucleated Red Blood Cells % 0.0/100WBC Neutrophils # 4.610^3/ul Lymphocytes # 0.810^3/ul Monocytes # 0.710^3/ul Eosinophils # 0.110^3/ul Basophils # 0.010^3/ul Nucleated Red Blood Cells # 0.010^3/ul Sodium Level 142mmol/L Potassium Level 3.8mmol/L Chloride Level 93mmol/L Carbon Dioxide Level 45mmol/L Anion Gap 8 Blood Urea Nitrogen 18mg/dl Creatinine 1.44mg/dl Glucose Level 80mg/dl Calcium Level 8.9mg/dl Troponin I 0.022ng/ml B-Type Natriuretic Peptide 2310PG/ML Blood Gas Specimen Source Blood arterial Arterial Blood Date Drawn 03/10/2017 7:43:23 PM Arterial Blood pH (Temp corrected) 7.423 Arterial Blood pCO2 (Temp correct) 64.1mmhg Arterial Blood pO2 (Temp corrected) 129.1mmHG Arterial Blood HCO3 40.9mmol/L Arterial Blood Base Excess 14.3mmol/L Arterial Blood Oxygen Saturation 98.2mmHG Jose Alfredo Test N/A Arterial Blood Gas Puncture Site Right Brachial Arterial Blood Carboxyhemoglobin 0.3% Arterial Blood Methemoglobin 0.2% Blood Gas A-a O2 Differential 31.4mmHg Oxyhemoglobin Percent 97.7% Total Hemoglobin 10.1g/dl Blood Gas Temperature 37.0C Blood Gas Actual Respiration Rate 18 Blood Gas Modality NASAL CANNULA FiO2 33.0% Blood Gas Critical Value Read Back Shital HODGES Blood Gas Notified Whom BL Blood Gas Notified Time 03/10/2017 7:51:59 PM Current Medications Medications (Trade) Dose Ordered Sig/Michael Route PRN Reason Start Time Stop Time Status Last Admin Dose Admin Morphine Sulfate (morphine) 4 mg ONCE STAT IV 03/10/17 22:00 03/10/17 22:03 DC 03/10/17 22:05 Ondansetron HCl (Zofran Inj) 4 mg ER BRIDGE PRN IV NAUSEA AND/OR VOMITING 03/11/17 00:00 03/11/17 23:59 Acetaminophen (Tylenol Tab) 650 mg ER BRIDGE PRN PO MILD PAIN/FEVER 03/11/17 00:00 03/11/17 23:59 Procedures/MDM Atelectatic collapse of the right lung likely secondary to bronchogenic carcinoma already known, this is causing the patient's dyspnea. No signs of infection. Patient was given a breathing treatment of albuterol and Atrovent. Signs of ischemia of the cardiac muscle. Patient does have stable vital signs and is more comfortable on oxygen. Being admitted to the panel HALIMA Willson E sure for further monitoring as patient currently only has one long effectively. EKG interpretation: Normal sinus rhythm rate of 83, normal axis, no ST or T- wave changes concerning for acute ischemia, slight inferior T-wave inversions, normal intervals. Chest x-ray interpretation: Complete right lung white out appears to be atelectasis with shift of mediastinum and lower trachea to the right. No pneumothorax or fractures visualized surveillance monitor interpretation: Normal sinus rhythm without arrhythmia CT chest interpretation: Atelectatic collapse of right lung in various portions , large infiltrative lung mass, no pneumothorax, no fractures. Departure Diagnosis: Primary Impression: Collapse of right lung Additional Impressions: Dyspnea Renal insufficiency Condition: Serious GIANLUCA CLARKE DO Mar 10, 2017 20:11
--- NOTE | 2017-03-10 21:18 | RADRPT ---
PROCEDURE: Portable chest x-ray. CLINICAL INDICATION: 61 years of age, male. Chest pain. TECHNIQUE: Portable AP view of the chest. COMPARISON: Chest x-ray February 28, 2017 FINDINGS: Left mediastinal contours are normal. Right mediastinal contours cannot be evaluated. There is right hernandez deviation of the trachea is unchanged from prior exam. There is complete opacification of the right hemithorax with the no aerated right lung remaining. Th e appearance is similar to prior exam. There is mild rightward deviation of the mediastinum indicati ve of volume loss. Left lung is clear. Negative for left pleural effusion or left pneumothorax. No acute bony abnormality. IMPRESSION: Complete opacification of the right hemithorax with mild volume loss and rightward deviation of the mediastinum is similar to prior exam. Differential diagnosis includes, but is not limited to, right lung mass with postobstructive atelectasis, large right pleural effusion and/or pneumonia. Suggest f urther evaluation with contrast-enhanced CT. RPTAT: HCTS Physician Francisco Date Time Electronically viewed and signed by Physician Francisco on 03/10/2017 21:18 /
[2017-03-10] MEDS ORDERED: morphine 4 MG/ML VIAL IV STA (22:00)
--- NOTE | 2017-03-10 23:05 | RADRPT ---
PROCEDURE: CT Chest without contrast. CLINICAL INDICATION: Chest pain and dyspnea. Abnormal chest x-ray. TECHNIQUE: CT scan of the chest without contrast was performed on a multidetector high-resolution C T scanner. Coronal and sagittal reformatted images were obtained from the axial source images. The total exam CTDI equals 16.7 mGy and the total exam DLP equals 662.34 mGy-cm. One or more of the following dose reduction techniques were used: - Automated exposure control. - Adjustment of the mA and/or kV according to patient size. - Use of iterative reconstruction technique. COMPARISON: Chest x-ray dated 03/10/2017. CT of the chest dated 08/31/2016. Chest CT dated 06/28/19 16. FINDINGS: Lungs, pleura, airways, and thoracic inlet: There is an infiltrative process centered in the right hilum extending into the mediastinal causing partial narrowing of the right main bronchus, high-grad e narrowing of the right upper lobe segmental bronchus, and near complete occlusion of the interloba r bronchus. There is extensive consolidation of the right upper lobe, complete collapse of the right middle lobe, and consolidation / partial collapse of the right lower lobe. There is a moderate locu lated right pleural effusion and a small layering left effusion. There is patchy tree in bud and nelida und-glass opacity in the dependent left lower lobe. There is no pneumothorax. The trachea and left l sia bronchial tree is patent. Cardiovascular system, mediastinum, and lymphatics: The heart is normal in size without pericardial thickening or effusion. There are multivessel coronary artery calcifications. There are atheroscler otic changes of the aorta, which is nonaneurysmal. There are multiple enlarged hyperdense lymph node s in the paratracheal region. There is no axillary adenopathy. Visualized upper abdomen: There is a similar partially calcified lesion in segment 6 of the liver. There is ascites within the visualized upper abdomen. The gallbladder is surgically absent. Musculoskeletal system and soft tissues: There is moderate to severe multilevel degenerative enthes opathy. There are no concerning osseous lesions. There is scarring at the ventral right chest wall subcutaneous fat and there is new mild anasarca. IMPRESSION: 1. Infiltrative process centered in the right hilum and extending into the right mediastinum, consi stent with the patient's known neoplasm, with high-grade narrowing of the right upper lobe segmental bronchus and right interlobar bronchus and associated complete collapse of the right middle lobe, e xtensive collapse of the right upper lobe, and partial collapse of the right lower lobe. Moderate lo culated right pleural effusion, likely malignant. These findings have all progressed when compared w ith the prior examination. 2. Mediastinal adenopathy, consistent with metastatic disease, more dense and smaller in appearance , possibly related to treatment effect. 3. Small left pleural effusion, unchanged. Minor bronchiolitis and dependent change in the posterio r left lower lobe. 4. New mild anasarca. 5. Multivessel coronary artery calcifications and atherosclerotic changes of the aorta. RPTAT: HLBP .Jay Brown MD, Date Time Electronically viewed and signed by .Jay Brown MD, MD on 03/10/2017 23:04 .P/
[2017-03-10] MEDS ORDERED: ALBUTEROL 0.083% (NEB) 2.5 MG/3 ML AMP HHN STA (23:42)
[2017-03-11] VITALS (11 sets, daily range): BP systolic 101–132; BP diastolic 61–78; PULSE 82–86; RESP 16–18; TEMP 98.9; BMI 42.3
[2017-03-11] MEDS ORDERED: ONDANSETRON 4 MG INJ IV PRN
[2017-03-11] MEDS ORDERED: ACETAMINOPHEN 325 MG TAB PO PRN
[2017-03-11] MEDS ORDERED: SOD CHLORIDE 0.9% 500 ML IV ONE
[2017-03-11] MEDS ORDERED: IPRATROPIUM (NEB) 0.5 MG/2.5 ML AMP HHN ONE
[2017-03-11] MEDS ORDERED: NACL 0.9% 3 ML SYG IV SCH (12:30)
--- NOTE | 2017-03-11 13:14 | HP ---
Date/Time of Note Date/Time of Note DATE: 03/11/17 TIME: 13:08 Assessment/Plan VTE Prophylaxis VTE Prophylaxis Intervention: other Lines/Catheters IV Catheter Type (from Nrsg): Saline Lock Assessment/Plan Chief Complaint/Hosp Course 1) lung collapse - oxygen supplementation - pulmonary consult 2) metastatic lung cancer - monitor Problems: HPI/ROS Admit Date/Time Admit Date/Time Mar 10, 2017 at 23:35 Hx of Present Illness Patient with metastatic lung cancer who was recently in the hospital for pneumonia, lung collapse returns for increasing shortness of breath. PMH/Family/Social Past Medical History lung cancer Social History Smoking Status: Former smoker Exam/Review of Systems Vital Signs Vitals Vital Signs Date Time Temp Pulse Resp B/P Pulse Ox O2 Delivery O2 Flow Rate FiO2 03/11/17 11:55 98.3 82 17 101/61 100 03/11/17 10:08 Nasal Cannula 6.0 03/11/17 00:20 40 Exam Constitutional: well developed Head: atraumatic, normocephalic Neck: supple Respiratory: diminished breath sounds Cardiovascular: regular rate and rhythm Gastrointestinal: non-tender, soft Extremities: normal pulses Labs Result Diagram: 03/10/17184903/10/171849 Medications Medications Current Medications Ondansetron HCl (Zofran Inj) 4 mg Q6H PRN IV NAUSEA AND/OR VOMITING; Start at 12:30 Acetaminophen (Tylenol Tab) 650 mg Q6H PRN PO PAIN LEVEL 1-3 OR FEVER; Start 03/11/17 at 12:30 Morphine Sulfate (morphine) 2 mg Q4H PRN IV PAIN LEVEL 7-10; Start 03/11/17 at 12:30 Famotidine (Pepcid) 20 mg BID PO ; Start 03/11/17 at 21:00 Enoxaparin Sodium (Lovenox) 30 mg DAILY SC ; Start 03/12/17 at 09:00 SAQIB DAVIS Mar 11, 2017 13:13
[2017-03-11] MEDS ORDERED: SENNA TAB PO PRN (14:00)
[2017-03-11] MEDS: ACETAMINOPHEN 325 MG TAB PO PRN (14:17)
[2017-03-11] MEDS: DRONABINOL 2.5 MG CAP PO SCH ×2 (14:27→17:03)
[2017-03-11] MEDS ORDERED: OXYMETAZOLINE 0.05% 15 ML NAS SPRAY NASAL SCH (14:30)
[2017-03-11] MEDS: SPECIAL NON-STANDARD MEDICATION (BULK) NASAL SCH (15:40)
[2017-03-11] MEDS: morphine 2 MG INJ IV PRN ×2 (15:41→20:17)
[2017-03-11] MEDS: FUROSEMIDE 40 MG TAB PO SCH (17:31)
[2017-03-11] MEDS ORDERED: DRONABINOL 2.5 MG CAP PO SCH ×2 (17:35)
[2017-03-11] MEDS ORDERED: FUROSEMIDE 40 MG TAB PO SCH (18:00)
[2017-03-11] MEDS ORDERED: VORICONAZOLE 200 MG TAB PO SCH (21:00)
[2017-03-11] MEDS ORDERED: morphine (ER) 15 MG TAB PO SCH (21:00)
[2017-03-11] MEDS ORDERED: POTASSIUM CHLORIDE (SR) 20 MEQ TAB PO SCH (21:00)
[2017-03-11] MEDS ORDERED: HYDROCODONE/HOMATROPINE 5ML CUP PO SCH (21:00)
[2017-03-11] MEDS ORDERED: APIXABAN 5 MG TABLET PO SCH (21:00)
[2017-03-11] MEDS ORDERED: ATORVASTATIN 20 MG TAB PO SCH (21:00)
[2017-03-11] MEDS: HYDROCODONE/HOMATROPINE 5ML CUP PO SCH (21:32)
[2017-03-11] MEDS: POTASSIUM CHLORIDE (SR) 20 MEQ TAB PO SCH (21:32)
[2017-03-11] MEDS: ATORVASTATIN 20 MG TAB PO SCH (21:32)
[2017-03-11] MEDS: FAMOTIDINE 20 MG TAB PO SCH (21:32)
[2017-03-11] MEDS: APIXABAN 5 MG TABLET PO SCH (21:33)
[2017-03-11] MEDS: morphine (ER) 15 MG TAB PO SCH (21:33)
[2017-03-12] VITALS (16 sets, daily range): BP systolic 125–143; BP diastolic 70–81; PULSE 70–87; RESP 16–73
[2017-03-12] MEDS: morphine 2 MG INJ IV PRN ×3 (02:33→17:47)
[2017-03-12] MEDS ORDERED: PANTOPRAZOLE (EC) 40 MG TAB PO SCH (06:00)
[2017-03-12] MEDS: PANTOPRAZOLE (EC) 40 MG TAB PO SCH (06:14)
[2017-03-12] MEDS: FUROSEMIDE 40 MG TAB PO SCH ×2 (06:14→17:38)
[2017-03-12] MEDS ORDERED: LEVOTHYROXINE 75 MCG TAB PO SCH (07:00)
[2017-03-12] MEDS: POTASSIUM CHLORIDE (SR) 20 MEQ TAB PO SCH ×2 (08:17→21:05)
[2017-03-12] MEDS: DRONABINOL 2.5 MG CAP PO SCH ×3 (08:17→17:38)
[2017-03-12] MEDS: LEVOTHYROXINE 75 MCG TAB PO SCH (08:17)
[2017-03-12] MEDS: FAMOTIDINE 20 MG TAB PO SCH ×2 (08:17→21:05)
[2017-03-12] MEDS: APIXABAN 5 MG TABLET PO SCH ×2 (08:18→21:05)
[2017-03-12] MEDS: morphine (ER) 15 MG TAB PO SCH ×2 (08:18→21:05)
[2017-03-12] MEDS: SPECIAL NON-STANDARD MEDICATION (BULK) NASAL SCH ×2 (08:24→21:17)
[2017-03-12] MEDS: ESCITALOPRAM 10 MG TAB PO SCH (08:24)
[2017-03-12] MEDS: ONDANSETRON 4 MG INJ IV PRN (08:29)
[2017-03-12] MEDS ORDERED: ENOXAPARIN 30 MG/0.3 ML SYG SC SCH (09:00)
[2017-03-12] MEDS ORDERED: ESCITALOPRAM 10 MG TAB PO SCH (09:00)
[2017-03-12] MEDS: HYDROCODONE/HOMATROPINE 5ML CUP PO SCH ×3 (09:23→21:04)
--- NOTE | 2017-03-12 11:15 | CONS ---
Date/Time of Note Date/Time of Note DATE: 03/12/17 TIME: 11:13 Assessment/Plan Assessment/Plan Additional Assessment/Plan Chest x-ray was reviewed from of this month which is showing complete whiteout of the right lung. CT scan chest is showing multiple areas of severe atelectasis involving most of the right lung segments. Assessment and recommendations; 1. Patient admitted with hypercapnic respiratory failure due to advanced lung malignancy with almost complete whiteout of the right lung. 2. Hypercapnic respiratory failure. 3. Underlying obesity. Next 4. Underlying COPD. 5. Left upper extremity DVT. Continue current treatment. Continue BiPAP. Overall prognosis remains poor. Consultation Date/Type/Reason Admit Date/Time Mar 10, 2017 at 23:35 Type of Consultation: Pulmonary/critical care 24 HR Interval Summary Free Text/Dictation Patient readmitted because of increasing shortness of breath. Still complains of occasional hemoptysis. Upon further evaluation and ABG was done which is showing stable hypercapnic respiratory failure. General exam; elderly male, obese, currently in no distress. Awake and alert. Exam/Review of Systems Vital Signs Vitals Vital Signs Date Time Temp Pulse Resp B/P Pulse Ox O2 Delivery O2 Flow Rate FiO2 03/12/17 08:38 98.0 77 16 143/81 97 03/12/17 08:30 Nasal Cannula 6.0 03/12/17 00:01 40 Intake and Output 03/11/17 03/11/17 03/12/17 14:59 22:59 06:59 Intake Total 100 ml Balance 100 ml Exam HEENT exam; supple neck, no JVD. No lymphadenopathy. Midline trachea. No thyromegaly. Pharynx is clear. Patient has fair dentition. Patient is alopecic. Chest exam; diminished breath sounds right lung. Left lung is clear to auscultation. S1-S2 audible, no murmurs. Regular rhythm. Abdomen exam; soft, protuberant. No organomegaly. Bowel sounds audible. Extremity exam; no peripheral edema. No clubbing. 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 Results Result Diagram: 03/12/17 0648 03/12/1748 Results 24 hrs Laboratory Tests Test 03/12/17 06:48 03/12/17 07:37 White Blood Count 4.5 #L Red Blood Count 2.89 L Hemoglobin 9.2 L Hematocrit 30.0 L Mean Corpuscular Volume 103.8 H Mean Corpuscular Hemoglobin 31.8 Mean Corpuscular Hemoglobin Concent 30.7 L Red Cell Distribution Width 13.7 Platelet Count 138 L Mean Platelet Volume 11.2 H Neutrophils % 68.5 Lymphocytes % 16.1 Monocytes % 10.5 Eosinophils % 3.6 Basophils % 0.9 Nucleated Red Blood Cells % 0.0 Neutrophils # 3.1 Lymphocytes # 0.7 L Monocytes # 0.5 Eosinophils # 0.2 Basophils # 0.0 Nucleated Red Blood Cells # 0.0 Sodium Level 141 Potassium Level 3.4 L Chloride Level 95 L Carbon Dioxide Level 38 H Anion Gap 11 Blood Urea Nitrogen 14 Creatinine 1.11 Glucose Level 77 Calcium Level 9.0 Total Bilirubin 0.4 Direct Bilirubin 0.00 Indirect Bilirubin 0.4 Aspartate Amino Transf (AST/SGOT) 27 Alanine Aminotransferase (ALT/SGPT) 26 Alkaline Phosphatase 88 Total Protein 6.0 L Albumin 3.1 L Globulin 2.90 Albumin/Globulin Ratio 1.06 Lab Scanned Report REFERENCE LAB Medications Medications Current Medications Ondansetron HCl (Zofran Inj) 4 mg Q6H PRN IV NAUSEA AND/OR VOMITING Last administered on 03/12/17 08:29; Admin Dose 4 MG; Start 03/11/17 at 12:30 Acetaminophen (Tylenol Tab) 650 mg Q6H PRN PO PAIN LEVEL 1-3 OR FEVER Last administered on 03/11/17 14:17; Admin Dose 650 MG; Start 03/11/17 at 12:30 Morphine Sulfate (morphine) 2 mg Q4H PRN IV PAIN LEVEL 7-10 Last administered on 03/12/17 09:30; Admin Dose 2 MG; Start 03/11/17 at 12:30 Famotidine (Pepcid) 20 mg BID PO Last administered on 03/12/17 08:17; Admin Dose 20 MG; Start 03/11/17 at 21:00 Apixaban (Eliquis) 2.5 mg BID PO Last administered on 03/12/17 08:18; Admin Dose 2.5 MG; Start 03/11/17 at 21:00 Atorvastatin Calcium (Lipitor) 20 mg QHS PO Last administered on 03/11/17 21: 32; Admin Dose 20 MG; Start 03/11/17 at 21:00 Escitalopram Oxalate (Lexapro) 10 mg DAILY PO Last administered on 03/12/17 08:24; Admin Dose 10 MG; Start 03/12/17 at 09:00 Furosemide (Lasix) 40 mg BID@06,18 PO Last administered on 03/12/17 06:14; Admin Dose 40 MG; Start 03/11/17 at 18:00 Hydrocodone Bit/ Homatropine Methylb (Hycodan Liquid) 10 ml TID PO Last administered on 03/12/17 09:23; Admin Dose 10 ML; Start 03/11/17 at 21:00 Morphine Sulfate (Ms Contin (Er)) 15 mg BID PO Last administered on 03/12/17 08:18; Admin Dose 15 MG; Start 03/11/17 at 21:00 Pantoprazole (Protonix Tab) 40 mg DAILY@06 PO Last administered on 03/12/17 06:14; Admin Dose 40 MG; Start 03/12/17 at 06:00 Potassium Chloride (Klor-Con 20) 20 meq BID PO Last administered on 03/12/17 08:17; Admin Dose 20 MEQ; Start 03/11/17 at 21:00 Senna (Senokot) 1 tab DAILY PRN PO CONSTIPATION; Start 03/11/17 at 14:30 Non-Formulary Medication 2 ea BID NASAL Last administered on 03/12/17 08:24; Admin Dose 2 EA; Start 03/11/17 at 15:31 ISMA CUTLER Mar 12, 2017 11:15
--- NOTE | 2017-03-12 11:23 | CONS ---
Date/Time of Note Date/Time of Note DATE: 03/12/17 TIME: 11:23 Assessment/Plan Assessment/Plan Chief Complaint/Hosp Course Lung cancer with ongoing chemotherapy. chemo on hold lung cancer relatively controlled based on recent CTs Leukocytosis. Anemia. Thrombocytopenia-stable, cont to monitor DVT-RUE on eliquis Chest pain. Abnormal electrocardiogram with nonspecific ST and T-wave abnormalities Bradycardia, transient while on beta matthew. Hypotension-improved Shortness of [id number]-[id number] PNA Renal failure-ongoing s CHF-worsening edema Problems: Consultation Date/Type/Reason Admit Date/Time Mar 10, 2017 at 23:35 Hx of Present Illness 61-year-old male history of metastatic lung CA- uses home o2, on chemotherapy is admitted with c/o shortness of breath. He states worsening shortness of breath over the past 24-48 hours even patient uses home oxygen . He reported shortness of breath being worse when laying flat. No significant fevers or cough. He denies any pleuritic pain. He has had hx DVTs during this course but is not taking any anticoagulants. ROS All systems reviewed and are negative except as per history of present illness. Medications Home Meds Active Scripts Furosemide* (Furosemide*) 20 Mg Tablet, 20 MG PO DAILY for 30 Days, #60 TAB Prov:LUBA EARLY 09/28/16 Esomeprazole Mag Trihydrate (Nexium) 40 Mg Capsule.dr, 40 MG PO DAILY for 30 Days, #30 CAP Prov:LUBA EARLY 09/28/16 Atorvastatin Calcium* (Atorvastatin Calcium*) 20 Mg Tablet, 20 MG PO QHS for 30 Days, #30 TAB Prov:LUBA EARLY 09/28/16 Levothyroxine Sodium* (Levothyroxine Sodium*) 75 Mcg Tablet, 75 MCG PO BEFORE BREAKFAST, #30 TAB Prov:LUBA EARLY 09/28/16 Escitalopram Oxalate* (Escitalopram Oxalate*) 10 Mg Tablet, 10 MG PO DAILY for 30 Days, #30 TAB Prov:LUBA EARLY 09/28/16 Reported Medications Sulfamethoxazole/Trimethoprim* (Bactrim Ds* Tablet) 1 Each Tablet, 1 TAB PO BID , TAB FOR 7 DAYS 01/31/17 Cephalexin* (Cephalexin*) 500 Mg Capsule, 500 MG PO TID, #21 CAP FOR 7DAYS 9/6/17 Aspirin* (Aspirin* EC) 81 Mg Tablet.dr, 81 MG PO Q7D, TAB 01/31/17 Metoprolol Succinate* (Toprol XL*) 50 Mg Tab.er.24h, 50 MG PO BID, #30 TAB 01/31/17 Discontinued Reported Medications Cephalexin* (Cephalexin*) 750 Mg Capsule, 750 MG PO Q8 for 7 Days, #21 CAP 01/31/17 Docusate Sodium* (Doc-Q-Lace*) 100 Mg Capsule, 100 MG PO BID Y for CONSTIPATION , CAP 08/31/16 Sennosides* (Senna Lax*) 8.6 Mg Tablet, 1 TAB PO Q12H Y for CONSTIPATION, TAB 08/31/16 Trazodone Hcl* (Trazodone Hcl*) 50 Mg Tablet, 50 MG PO QHS, #30 TAB 08/31/16 Discontinued Scripts [Promethazine/Codeine Syp] 5 ML SYRUP No Conflict Check, 10 ML PO Q6H Y for COUGH for 30 Days Prov:LUBA EARLY 09/28/16 Morphine Sulfate (Morphine Sulfate ER) 15 Mg Tablet.er, 45 MG PO BID, #30 TAB Prov:LBUA EARLY 09/28/16 Levofloxacin* (Levaquin*) 750 Mg Tablet, 750 MG PO DAILY@06 for 8 Days, TAB Prov:LUBA EARLY 09/28/16 Voriconazole* (Vfend*) 200 Mg Tablet, 100 MG PO BID for 30 Days, TAB Prov:LUBA EARLY 09/28/16 Enoxaparin Sodium (Enoxaparin Sodium) 100 Mg/1 Ml Syringe, 190 MG SC Q24H for 30 Days Prov:LUBA EARLY 09/28/16 Aspirin* (Aspirin* EC) 81 Mg Tablet.dr, 81 MG PO DAILY for 30 Days, TAB Prov:LUBA EARLY 09/28/16 Allergies Allergies: Coded Allergies: No Known Allergy (Unverified , 01/31/17) Constitutional: fatigue Respiratory: shortness of breath Cardiovascular: no complaints Gastrointestinal: no complaints Genitourinary: no complaints Musculoskeletal: no complaints Neurologic: no complaints PMH/Family/Social Past Medical History PMhx/Soc History of Surgery: Yes (right midle finger partial amputation 1985, gallbladder removal 1996, nose ) Anesthesia Reaction: No Hx Neurological Disorder: No Hx Respiratory Disorders: Yes (non small cell ca,sob, pna, intubated) Hx Cardiac Disorders: Yes (paroxismal afib) Hx Psychiatric Problems: No Hx Miscellaneous Medical Probl: Yes (Stage 4 lung CA, CAD, HTN, A-fib, COPD) Hx Alcohol Use: No Hx Substance Use: No Hx Tobacco Use: Yes Smoking Status: Former smoker FmHx Family History: No diabetes PMhx/Soc History of Surgery: Yes (right midle finger partial amputation 1985, gallbladder removal 1996, nose ) Anesthesia Reaction: No Hx Neurological Disorder: No Hx Respiratory Disorders: Yes (non small cell ca,sob, pna, intubated) Hx Cardiac Disorders: Yes (paroxismal afib) Hx Psychiatric Problems: No Hx Miscellaneous Medical Probl: Yes (Stage 4 lung CA, CAD, HTN, A-fib, COPD) Hx Alcohol Use: No Hx Substance Use: No Hx Tobacco Use: Yes Smoking Status: Former smoker FmHx Family History: No diabetes Social History Smoking Status: Former smoker Social History Smoking Status: Former smoker Exam/Review of Systems Vital Signs Vitals Vital Signs Date Time Temp Pulse Resp B/P Pulse Ox O2 Delivery O2 Flow Rate FiO2 03/12/17 08:38 98.0 77 16 143/81 97 03/12/17 08:30 Nasal Cannula 6.0 03/12/17 00:01 40 Intake and Output 03/11/17 03/11/17 03/12/17 15:00 23:00 07:00 Intake Total 100 ml Balance 100 ml Exam Constitutional: alert, oriented Head: normocephalic Neck: supple Respiratory: diminished breath sounds Cardiovascular: nl pulses Gastrointestinal: soft Extremities: edema Results Result Diagram: 03/12/17 0648 03/12/17 0648 Results 24 hrs Laboratory Tests Test 03/12/17 06:48 03/12/17 07:37 White Blood Count 4.5 #L Red Blood Count 2.89 L Hemoglobin 9.2 L Hematocrit 30.0 L Mean Corpuscular Volume 103.8 H Mean Corpuscular Hemoglobin 31.8 Mean Corpuscular Hemoglobin Concent 30.7 L Red Cell Distribution Width 13.7 Platelet Count 138 L Mean Platelet Volume 11.2 H Neutrophils % 68.5 Lymphocytes % 16.1 Monocytes % 10.5 Eosinophils % 3.6 Basophils % 0.9 Nucleated Red Blood Cells % 0.0 Neutrophils # 3.1 Lymphocytes # 0.7 L Monocytes # 0.5 Eosinophils # 0.2 Basophils # 0.0 Nucleated Red Blood Cells # 0.0 Sodium Level 141 Potassium Level 3.4 L Chloride Level 95 L Carbon Dioxide Level 38 H Anion Gap 11 Blood Urea Nitrogen 14 Creatinine 1.11 Glucose Level 77 Calcium Level 9.0 Total Bilirubin 0.4 Direct Bilirubin 0.00 Indirect Bilirubin 0.4 Aspartate Amino Transf (AST/SGOT) 27 Alanine Aminotransferase (ALT/SGPT) 26 Alkaline Phosphatase 88 Total Protein 6.0 L Albumin 3.1 L Globulin 2.90 Albumin/Globulin Ratio 1.06 Lab Scanned Report REFERENCE LAB Medications Medications Current Medications Ondansetron HCl (Zofran Inj) 4 mg Q6H PRN IV NAUSEA AND/OR VOMITING Last administered on 03/12/17 08:29; Admin Dose 4 MG; Start 03/11/17 at 12:30 Acetaminophen (Tylenol Tab) 650 mg Q6H PRN PO PAIN LEVEL 1-3 OR FEVER Last administered on 03/11/17 14:17; Admin Dose 650 MG; Start 03/11/17 at 12:30 Morphine Sulfate (morphine) 2 mg Q4H PRN IV PAIN LEVEL 7-10 Last administered on 03/12/17 09:30; Admin Dose 2 MG; Start 03/11/17 at 12:30 Famotidine (Pepcid) 20 mg BID PO Last administered on 03/12/17 08:17; Admin Dose 20 MG; Start 03/11/17 at 21:00 Apixaban (Eliquis) 2.5 mg BID PO Last administered on 03/12/17 08:18; Admin Dose 2.5 MG; Start 03/11/17 at 21:00 Atorvastatin Calcium (Lipitor) 20 mg QHS PO Last administered on 03/11/17 21: 32; Admin Dose 20 MG; Start 03/11/17 at 21:00 Escitalopram Oxalate (Lexapro) 10 mg DAILY PO Last administered on 03/12/17 08:24; Admin Dose 10 MG; Start 03/12/17 at 09:00 Furosemide (Lasix) 40 mg BID@06,18 PO Last administered on 03/12/17 06:14; Admin Dose 40 MG; Start 03/11/17 at 18:00 Hydrocodone Bit/ Homatropine Methylb (Hycodan Liquid) 10 ml TID PO Last administered on 03/12/17 09:23; Admin Dose 10 ML; Start 03/11/17 at 21:00 Morphine Sulfate (Ms Contin (Er)) 15 mg BID PO Last administered on 03/12/17 08:18; Admin Dose 15 MG; Start 03/11/17 at 21:00 Pantoprazole (Protonix Tab) 40 mg DAILY@06 PO Last administered on 03/12/17 06:14; Admin Dose 40 MG; Start 03/12/17 at 06:00 Potassium Chloride (Klor-Con 20) 20 meq BID PO Last administered on 03/12/17 08:17; Admin Dose 20 MEQ; Start 03/11/17 at 21:00 Senna (Senokot) 1 tab DAILY PRN PO CONSTIPATION; Start 03/11/17 at 14:30 Non-Formulary Medication 2 ea BID NASAL Last administered on 03/12/17 08:24; Admin Dose 2 EA; Start 03/11/17 at 15:31 DAHIANA BABCOCK MD Mar 12, 2017 11:23
[2017-03-12] MEDS: ALBUTEROL/IPRATROPIUM (NEB) 3 ML AMP HHN PRN (14:32)
--- NOTE | 2017-03-12 17:29 | PN ---
Date/Time of Note Date/Time of Note DATE: 03/12/17 TIME: 17:21 Assessment/Plan VTE Prophylaxis VTE Prophylaxis Intervention: SCD's Lines/Catheters IV [facility]ine [facility] Assessment/Plan Chief Complaint/Hosp Course Patient was discharged home on Sunday however developed shortness of breath with difficulty breathing over the weekend and was readmitted for acute hypercapnic respiratory failure. Patient is currently on supplemental oxygen and BiPAP at night, denies any fever. Problems: Assessment/Plan - Hypercapnic respiratory failure due to advanced lung malignancy with almost complete whiteout of the right lung. Dr. Philip is following in pulmonology consultation - Advanced non-small cell lung CA, Dr. Scanlon is following in oncology consultation. - Nonocclusive deep venous thrombosis bilateral upper extremities. Continue Eliquis. - Acute on chronic diastolic congestive heart failure, continue gentle diuresis , continue to monitor electrolytes. - h/o fungal pneumonia, on maintenance voriconazole - CAD, continue aspirin. - Hyperlipidemia, continue statin - Hypothyroidism, continue levothyroxine. - Paroxysmal atrial fibrillation, controlled rate, patient is continued on Eliquis. - COPD - Obesity with BMI 42 - Status post treatment for postobstructive pneumonia and paronychia Further recommendations based on clinical course. Plan of care discussed with Dr. Lincoln. Exam/Review of Systems Vital Signs Vitals Vital Signs Date Time Temp Pulse Resp B/P Pulse Ox O2 Delivery O2 Flow Rate FiO2 03/12/17 16:38 87 03/12/17 16:04 98.5 18 134/74 98 03/12/17 14:32 40 03/12/17 14:32 Nasal Cannula 4.0 Intake and Output 03/11/17 03/11/17 03/12/17 15:00 23:00 07:00 Intake Total 100 ml Balance 100 ml Exam Constitutional: alert, oriented Head: normocephalic Neck: supple Respiratory: diminished breath sounds Cardiovascular: nl pulses Gastrointestinal: soft Extremities: edema Results Result Diagram: 03/12/17 0648 03/12/17 0648 Results 24 hrs Laboratory Tests Test 03/12/17 06:48 03/12/17 07:37 White Blood Count 4.5 #L Red Blood Count 2.89 L Hemoglobin 9.2 L Hematocrit 30.0 L Mean Corpuscular Volume 103.8 H Mean Corpuscular Hemoglobin 31.8 Mean Corpuscular Hemoglobin Concent 30.7 L Red Cell Distribution Width 13.7 Platelet Count 138 L Mean Platelet Volume 11.2 H Neutrophils % 68.5 Lymphocytes % 16.1 Monocytes % 10.5 Eosinophils % 3.6 Basophils % 0.9 Nucleated Red Blood Cells % 0.0 Neutrophils # 3.1 Lymphocytes # 0.7 L Monocytes # 0.5 Eosinophils # 0.2 Basophils # 0.0 Nucleated Red Blood Cells # 0.0 Sodium Level 141 Potassium Level 3.4 L Chloride Level 95 L Carbon Dioxide Level 38 H Anion Gap 11 Blood Urea Nitrogen 14 Creatinine 1.11 Glucose Level 77 Calcium Level 9.0 Total Bilirubin 0.4 Direct Bilirubin 0.00 Indirect Bilirubin 0.4 Aspartate Amino Transf (AST/SGOT) 27 Alanine Aminotransferase (ALT/SGPT) 26 Alkaline Phosphatase 88 Total Protein 6.0 L Albumin 3.1 L Globulin 2.90 Albumin/Globulin Ratio 1.06 Lab Scanned Report REFERENCE LAB Medications Medications Current Medications Ondansetron HCl (Zofran Inj) 4 mg Q6H PRN IV NAUSEA AND/OR VOMITING Last administered on 03/12/17 08:29; Admin Dose 4 MG; Start 03/11/17 at 12:30 Acetaminophen (Tylenol Tab) 650 mg Q6H PRN PO PAIN LEVEL 1-3 OR FEVER Last administered on 03/11/17 14:17; Admin Dose 650 MG; Start 03/11/17 at 12:30 Morphine Sulfate (morphine) 2 mg Q4H PRN IV PAIN LEVEL 7-10 Last administered on 03/12/17 09:30; Admin Dose 2 MG; Start 03/11/17 at 12:30 Famotidine (Pepcid) 20 mg BID PO Last administered on 03/12/17 08:17; Admin Dose 20 MG; Start 03/11/17 at 21:00 Apixaban (Eliquis) 2.5 mg BID PO Last administered on 03/12/17 08:18; Admin Dose 2.5 MG; Start 03/11/17 at 21:00 Atorvastatin Calcium (Lipitor) 20 mg QHS PO Last administered on 03/11/17 21: 32; Admin Dose 20 MG; Start 03/11/17 at 21:00 Escitalopram Oxalate (Lexapro) 10 mg DAILY PO Last administered on 03/12/17 08:24; Admin Dose 10 MG; Start 03/12/17 at 09:00 Furosemide (Lasix) 40 mg BID@06,18 PO Last administered on 03/12/17 06:14; Admin Dose 40 MG; Start 03/11/17 at 18:00 Hydrocodone Bit/ Homatropine Methylb (Hycodan Liquid) 10 ml TID PO Last administered on 03/12/17 13:15; Admin Dose 10 ML; Start 03/11/17 at 21:00 Morphine Sulfate (Ms Contin (Er)) 15 mg BID PO Last administered on 03/12/17 08:18; Admin Dose 15 MG; Start 03/11/17 at 21:00 Pantoprazole (Protonix Tab) 40 mg DAILY@06 PO Last administered on 03/12/17 06:14; Admin Dose 40 MG; Start 03/12/17 at 06:00 Potassium Chloride (Klor-Con 20) 20 meq BID PO Last administered on 03/12/17 08:17; Admin Dose 20 MEQ; Start 03/11/17 at 21:00 Senna (Senokot) 1 tab DAILY PRN PO CONSTIPATION; Start 03/11/17 at 14:30 Non-Formulary Medication 2 ea BID NASAL Last administered on 03/12/17 08:24; Admin Dose 2 EA; Start 03/11/17 at 15:31 LUBA EARLY Mar 12, 2017 17:29
[2017-03-12] MEDS ORDERED: POTASSIUM CHLORIDE 20 MEQ POWDER FOR ORAL SOLN PO ONE (17:30)
[2017-03-12] MEDS: ATORVASTATIN 20 MG TAB PO SCH (21:05)
[2017-03-13] VITALS (14 sets, daily range): BP systolic 101–141; BP diastolic 66–87; PULSE 80–94; RESP 17–19
[2017-03-13] MEDS: morphine 2 MG INJ IV PRN ×3 (00:07→15:12)
[2017-03-13] MEDS: PANTOPRAZOLE (EC) 40 MG TAB PO SCH (06:07)
[2017-03-13] MEDS: FUROSEMIDE 40 MG TAB PO SCH ×2 (06:07→17:41)
[2017-03-13] MEDS: LEVOTHYROXINE 75 MCG TAB PO SCH (06:07)
[2017-03-13] MEDS: ESCITALOPRAM 10 MG TAB PO SCH (08:21)
[2017-03-13] MEDS: APIXABAN 5 MG TABLET PO SCH ×2 (08:22→21:22)
[2017-03-13] MEDS: DRONABINOL 2.5 MG CAP PO SCH ×3 (08:22→17:41)
[2017-03-13] MEDS: HYDROCODONE/HOMATROPINE 5ML CUP PO SCH ×3 (08:22→21:21)
[2017-03-13] MEDS: POTASSIUM CHLORIDE (SR) 20 MEQ TAB PO SCH ×2 (08:22→21:21)
[2017-03-13] MEDS: morphine (ER) 15 MG TAB PO SCH ×2 (08:22→21:21)
[2017-03-13] MEDS: FAMOTIDINE 20 MG TAB PO SCH ×2 (08:22→21:21)
[2017-03-13] MEDS: SPECIAL NON-STANDARD MEDICATION (BULK) NASAL SCH ×2 (08:23→21:21)
--- NOTE | 2017-03-13 12:30 | CONS ---
Date/Time of Note Date/Time of Note DATE: 03/13/17 TIME: 12:28 Assessment/Plan Assessment/Plan Additional Assessment/Plan Assessment and recommendations; next 1. Patient admitted with persistent hypoxemia due to widely metastatic lung cancer with almost complete whiteout of the right lung. 2. COPD. 3. Hypercapnic respiratory failure which is partly compensated. 4. Left upper extremity DVT. Continue current supportive care. Continue BiPAP. Overall prognosis remains poor. Consultation Date/Type/Reason Admit Date/Time Mar 10, 2017 at 23:35 Type of Consultation: Pulmonary/critical care 24 HR Interval Summary Free Text/Dictation Patient's condition remains stable. Still complains of shortness of breath upon minimal exertion. Complains of occasional hemoptysis. General exam; elderly male, morbidly obese, currently in no distress. Awake and alert. Exam/Review of Systems Vital Signs Vitals Vital Signs Date Time Temp Pulse Resp B/P Pulse Ox O2 Delivery O2 Flow Rate FiO2 03/13/17 12:01 98.0 105 19 101/66 98 03/13/17 07:46 Nasal Cannula 6.0 03/12/17 20:12 40 Intake and Output 03/12/17 03/12/17 03/13/17 14:59 22:59 06:59 Intake Total 800 ml 260 ml Output Total 550 ml 550 ml Balance 250 ml -290 ml Exam HEENT exam; supple neck, no JVD. No lymphadenopathy. Midline trachea. No thyromegaly. Patient has fair dentition. Patient is alopecic. Chest exam; absent breath sounds right lung. Left lung is clear to auscultation. S1-S2 audible, no murmurs. Regular rhythm. Abdomen exam; soft, protuberant. No organomegaly. Bowel sounds audible. Extremity exam; no peripheral edema. No clubbing. 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 Results Result Diagram: 03/12/1764703/12/17647 Medications Medications Current Medications Ondansetron HCl (Zofran Inj) 4 mg Q6H PRN IV NAUSEA AND/OR VOMITING Last administered on 03/12/17 08:29; Admin Dose 4 MG; Start 03/11/17 at 12:30 Acetaminophen (Tylenol Tab) 650 mg Q6H PRN PO PAIN LEVEL 1-3 OR FEVER Last administered on 03/11/17 14:17; Admin Dose 650 MG; Start 03/11/17 at 12:30 Morphine Sulfate (morphine) 2 mg Q4H PRN IV PAIN LEVEL 7-10 Last administered on 03/13/17 04:36; Admin Dose 2 MG; Start 03/11/17 at 12:30 Famotidine (Pepcid) 20 mg BID PO Last administered on 03/13/17 08:22; Admin Dose 20 MG; Start 03/11/17 at 21:00 Apixaban (Eliquis) 2.5 mg BID PO Last administered on 03/13/17 08:22; Admin Dose 2.5 MG; Start 03/11/17 at 21:00 Atorvastatin Calcium (Lipitor) 20 mg QHS PO Last administered on 03/12/17 21: 05; Admin Dose 20 MG; Start 03/11/17 at 21:00 Escitalopram Oxalate (Lexapro) 10 mg DAILY PO Last administered on 03/13/17 08:21; Admin Dose 10 MG; Start 03/12/17 at 09:00 Furosemide (Lasix) 40 mg BID@06,18 PO Last administered on 03/13/17 06:07; Admin Dose 40 MG; Start 03/11/17 at 18:00 Hydrocodone Bit/ Homatropine Methylb (Hycodan Liquid) 10 ml TID PO Last administered on 03/13/17 08:22; Admin Dose 10 ML; Start 03/11/17 at 21:00 Morphine Sulfate (Ms Contin (Er)) 15 mg BID PO Last administered on 03/13/17 08:22; Admin Dose 15 MG; Start 03/11/17 at 21:00 Pantoprazole (Protonix Tab) 40 mg DAILY@06 PO Last administered on 03/13/17 06:07; Admin Dose 40 MG; Start 03/12/17 at 06:00 Potassium Chloride (Klor-Con 20) 20 meq BID PO Last administered on 03/13/17 08:22; Admin Dose 20 MEQ; Start 03/11/17 at 21:00 Senna (Senokot) 1 tab DAILY PRN PO CONSTIPATION; Start 03/11/17 at 14:30 Non-Formulary Medication 2 ea BID NASAL Last administered on 03/13/17 08:23; Admin Dose 2 EA; Start 03/11/17 at 15:31 ISMA CUTLER Mar 13, 2017 12:30
[2017-03-13] MEDS: ALBUTEROL/IPRATROPIUM (NEB) 3 ML AMP HHN PRN (13:36)
--- NOTE | 2017-03-13 18:01 | PN ---
Date/Time of Note Date/Time of Note DATE: 03/13/17 TIME: 17:59 Assessment/Plan VTE Prophylaxis VTE Prophylaxis Intervention: SCD's Lines/Catheters IV Catheter Type (from [facility] Saline Lock Assessment/Plan Chief Complaint/Hosp Course Patient complaints of shortness of breath on exertion, comfortable at rest, denies fevers. Assessment/Plan - Hypercapnic respiratory failure due to advanced lung malignancy with almost complete whiteout of the right lung. Dr. Philip is following in pulmonology consultation - Advanced non-small cell lung CA, Dr. cSanlon is following in oncology consultation. - Nonocclusive deep venous thrombosis bilateral upper extremities. Continue Eliquis. - Acute on chronic diastolic congestive heart failure, continue gentle diuresis , continue to monitor electrolytes. - h/o fungal pneumonia, on maintenance voriconazole - CAD, continue aspirin. - Hyperlipidemia, continue statin - Hypothyroidism, continue levothyroxine. - Paroxysmal atrial fibrillation, controlled rate, patient is continued on Eliquis. - COPD - Obesity with BMI 42 - Status post treatment for postobstructive pneumonia and paronychia Further recommendations based on clinical course. Plan of care discussed with Dr. Lincoln. Problems: Exam/Review of Systems Vital Signs Vitals Vital Signs Date Time Temp Pulse Resp B/P Pulse Ox O2 Delivery O2 Flow Rate FiO2 03/13/17 17:28 92 03/13/17 17:03 5.0 03/13/17 15:48 98.6 18 107/70 98 03/13/17 13:37 Nasal Cannula 03/12/17 20:12 40 Intake and Output 03/12/17 03/12/17 03/13/17 15:00 23:00 07:00 Intake Total 800 ml 260 ml Output Total 550 ml 550 ml Balance 250 ml -290 ml Exam Constitutional: alert, oriented Head: normocephalic Neck: supple Respiratory: diminished breath sounds Cardiovascular: nl pulses Gastrointestinal: soft Extremities: edema Results Result Diagram: 03/12/1748 03/12/1748 Medications Medications Current Medications Ondansetron HCl (Zofran Inj) 4 mg Q6H PRN IV NAUSEA AND/OR VOMITING Last administered on 03/12/17t 08:29; Admin Dose 4 MG; Start 03/11/17 at 12:30 Acetaminophen (Tylenol Tab) 650 mg Q6H PRN PO PAIN LEVEL 1-3 OR FEVER Last administered on 03/11/17 14:17; Admin Dose 650 MG; Start 03/11/17 at 12:30 Morphine Sulfate (morphine) 2 mg Q4H PRN IV PAIN LEVEL 7-10 Last administered on 03/13/17 15:12; Admin Dose 2 MG; Start 03/11/17 at 12:30 Famotidine (Pepcid) 20 mg BID PO Last administered on 03/13/17 08:22; Admin Dose 20 MG; Start 03/11/17 at 21:00 Apixaban (Eliquis) 2.5 mg BID PO Last administered on 03/13/17 08:22; Admin Dose 2.5 MG; Start 03/11/17 at 21:00 Atorvastatin Calcium (Lipitor) 20 mg QHS PO Last administered on 03/12/17 21: 05; Admin Dose 20 MG; Start 03/11/17 at 21:00 Escitalopram Oxalate (Lexapro) 10 mg DAILY PO Last administered on 03/13/17 08:21; Admin Dose 10 MG; Start 03/12/17 at 09:00 Furosemide (Lasix) 40 mg BID@06,18 PO Last administered on 03/13/17 17:41; Admin Dose 40 MG; Start 03/11/17 at 18:00 Hydrocodone Bit/ Homatropine Methylb (Hycodan Liquid) 10 ml TID PO Last administered on 03/13/17 12:42; Admin Dose 10 ML; Start 03/11/17 at 21:00 Morphine Sulfate (Ms Contin (Er)) 15 mg BID PO Last administered on 03/13/17 08:22; Admin Dose 15 MG; Start 03/11/17 at 21:00 Pantoprazole (Protonix Tab) 40 mg DAILY@06 PO Last administered on 03/13/17 06:07; Admin Dose 40 MG; Start 03/12/17 at 06:00 Potassium Chloride (Klor-Con 20) 20 meq BID PO Last administered on 03/13/17 08:22; Admin Dose 20 MEQ; Start 03/11/17 at 21:00 Senna (Senokot) 1 tab DAILY PRN PO CONSTIPATION; Start 03/11/17 at 14:30 Non-Formulary Medication 2 ea BID NASAL Last administered on 03/13/17 08:23; Admin Dose 2 EA; Start 03/11/17 at 15:31 LUBA EARLY Mar 13, 2017 18:01
--- NOTE | 2017-03-13 20:45 | CONS ---
Date/Time of Note Date/Time of Note DATE: 03/13/17 TIME: 20:44 Assessment/Plan Assessment/Plan Chief Complaint/Hosp Course Lung cancer with ongoing chemotherapy. chemo on hold lung cancer relatively controlled based on recent CTs Leukocytosis. Anemia. Thrombocytopenia-stable, cont to monitor DVT-RUE on eliquis Chest pain. Abnormal electrocardiogram with nonspecific ST and T-wave abnormalities Bradycardia, transient while on beta matthew. Hypotension-improved Shortness of [id number] PNA Renal failure-ongoing s CHF-worsening edema Problems: Consultation Date/Type/Reason Admit Date/Time Mar 10, 2017 at 23:35 Initial Consult Date Type of Consultation: hemeonc 24 HR Interval Summary Free Text/Dictation all noted very weak + sob in bed Exam/Review of Systems Vital Signs Vitals Vital Signs Date Time Temp Pulse Resp B/P Pulse Ox O2 Delivery O2 Flow Rate FiO2 03/13/17 20:00 98.4 94 17 132/84 98 03/13/17 17:03 5.0 03/13/17 13:37 Nasal Cannula 03/12/17 20:12 40 Intake and Output 03/12/17 03/12/17 03/13/17 15:00 23:00 07:00 Intake Total 800 ml 260 ml Output Total 550 ml 550 ml Balance 250 ml -290 ml Exam Constitutional: alert, oriented Head: normocephalic Neck: supple Respiratory: diminished breath sounds Cardiovascular: nl pulses Gastrointestinal: soft Extremities: edema Results Result Diagram: 03/12/17 0648 03/12/17 0648 Medications Medications Current Medications Ondansetron HCl (Zofran Inj) 4 mg Q6H PRN IV NAUSEA AND/OR VOMITING Last administered on 03/12/17 08:29; Admin Dose 4 MG; Start 03/11/17 at 12:30 Acetaminophen (Tylenol Tab) 650 mg Q6H PRN PO PAIN LEVEL 1-3 OR FEVER Last administered on 03/11/17 14:17; Admin Dose 650 MG; Start 03/11/17 at 12:30 Morphine Sulfate (morphine) 2 mg Q4H PRN IV PAIN LEVEL 7-10 Last administered on 03/13/17 15:12; Admin Dose 2 MG; Start 03/11/17 at 12:30 Famotidine (Pepcid) 20 mg BID PO Last administered on 03/13/17 08:22; Admin Dose 20 MG; Start 03/11/17 at 21:00 Apixaban (Eliquis) 2.5 mg BID PO Last administered on 03/13/17 08:22; Admin Dose 2.5 MG; Start 03/11/17 at 21:00 Atorvastatin Calcium (Lipitor) 20 mg QHS PO Last administered on 03/12/17 21: 05; Admin Dose 20 MG; Start 03/11/17 at 21:00 Escitalopram Oxalate (Lexapro) 10 mg DAILY PO Last administered on 03/13/17 08:21; Admin Dose 10 MG; Start 03/12/17 at 09:00 Furosemide (Lasix) 40 mg BID@,18 PO Last administered on 03/13/17 17:41; Admin Dose 40 MG; Start 03/11/17 at 18:00 Hydrocodone Bit/ Homatropine Methylb (Hycodan Liquid) 10 ml TID PO Last administered on 03/13/17 12:42; Admin Dose 10 ML; Start 03/11/17 at 21:00 Morphine Sulfate (Ms Contin (Er)) 15 mg BID PO Last administered on 03/13/17 08:22; Admin Dose 15 MG; Start 03/11/17 at 21:00 Pantoprazole (Protonix Tab) 40 mg DAILY@06 PO Last administered on 03/13/17 06:07; Admin Dose 40 MG; Start 03/12/17 at 06:00 Potassium Chloride (Klor-Con 20) 20 meq BID PO Last administered on 03/13/17 08:22; Admin Dose 20 MEQ; Start 03/11/17 at 21:00 Senna (Senokot) 1 tab DAILY PRN PO CONSTIPATION; Start 03/11/17 at 14:30 Non-Formulary Medication 2 ea BID NASAL Last administered on 03/13/17 08:23; Admin Dose 2 EA; Start 03/11/17 at 15:31 DAHIANA BABCOCK MD Mar 13, 2017 20:45
[2017-03-13] MEDS: ATORVASTATIN 20 MG TAB PO SCH (21:21)
[2017-03-14] VITALS (12 sets, daily range): BP systolic 119–163; BP diastolic 77–83; PULSE 84–91; RESP 16–19
[2017-03-14] MEDS: morphine 2 MG INJ IV PRN ×2 (00:58→06:37)
[2017-03-14] MEDS ORDERED: VITAMIN A & D 5 GM OINT PACKET TOP ONE (03:17)
[2017-03-14] MEDS: FUROSEMIDE 40 MG TAB PO SCH ×2 (06:38→19:39)
[2017-03-14] MEDS: LEVOTHYROXINE 75 MCG TAB PO SCH (06:38)
[2017-03-14] MEDS: PANTOPRAZOLE (EC) 40 MG TAB PO SCH (06:38)
[2017-03-14] MEDS: DRONABINOL 2.5 MG CAP PO SCH ×3 (07:25→17:35)
[2017-03-14] MEDS: APIXABAN 5 MG TABLET PO SCH ×2 (09:04→21:25)
[2017-03-14] MEDS: HYDROCODONE/HOMATROPINE 5ML CUP PO SCH ×3 (09:05→21:26)
[2017-03-14] MEDS: ESCITALOPRAM 10 MG TAB PO SCH (09:05)
[2017-03-14] MEDS: SPECIAL NON-STANDARD MEDICATION (BULK) NASAL SCH ×2 (09:06→21:29)
[2017-03-14] MEDS: POTASSIUM CHLORIDE (SR) 20 MEQ TAB PO SCH ×2 (09:06→21:26)
[2017-03-14] MEDS: FAMOTIDINE 20 MG TAB PO SCH ×2 (09:06→21:24)
[2017-03-14] MEDS: morphine (ER) 15 MG TAB PO SCH ×2 (09:09→21:24)
--- NOTE | 2017-03-14 12:29 | CONS ---
Date/Time of Note Date/Time of Note DATE: 03/14/17 TIME: 12:27 Assessment/Plan Assessment/Plan Additional Assessment/Plan Assessment recommendations; next 1. Patient admitted with shortness of breath due to extensive right lung malignancy. 2. Hypercapnic respiratory failure which is partly compensated. Patient on intermittent BiPAP. 3. Acute renal insufficiency with normalization of serum creatinine. 4. Left upper extremity DVT. 5. COPD. Next Continue current supportive care. Overall prognosis remains poor. Consultation Date/Type/Reason Admit Date/Time Mar 10, 2017 at 23:35 Type of Consultation: Pulmonary 24 HR Interval Summary Free Text/Dictation Patient's condition is stable. He complains of shortness of breath upon exertion. Complains of cough and occasional hemoptysis. General exam; elderly male, morbidly obese, currently in no distress. Awake and alert. Exam/Review of Systems Vital Signs Vitals Vital Signs Date Time Temp Pulse Resp B/P Pulse Ox O2 Delivery O2 Flow Rate FiO2 03/14/17 12:00 87 03/14/17 11:36 98.1 19 122/82 98 03/14/17 05:16 5.0 03/14/17 01:53 40 03/13/17 20:00 Nasal Cannula Intake and Output 03/13/17 03/13/17 03/14/17 15:00 23:00 07:00 Intake Total 500 ml 450 ml Output Total 800 ml 650 ml Balance -300 ml -200 ml Exam HEENT exam; supple neck, no JVD. No lymphadenopathy. Midline trachea. No thyromegaly. Patient has fair dentition. Patient is alopecic. Chest exam; diminished breath sounds right lung. Left lung is clear to auscultation. S1-S2 audible, no murmurs. Regular rhythm. Abdomen exam; soft, protuberant. Nontender. No organomegaly. Bowel sounds audible. Extremity exam; no peripheral edema. No clubbing. Patient has a missing right middle distal phalanx. 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 Results Result Diagram: 03/14/17 0837 03/14/17 0837 Results 24 hrs Laboratory Tests Test 03/14/17 08:37 White Blood Count 4.7 L Red Blood Count 3.02 L Hemoglobin 9.5 L Hematocrit 30.8 L Mean Corpuscular Volume 102.0 H Mean Corpuscular Hemoglobin 31.5 Mean Corpuscular Hemoglobin Concent 30.8 L Red Cell Distribution Width 13.6 Platelet Count 145 Mean Platelet Volume 11.2 H Neutrophils % 68.4 Lymphocytes % 15.6 Monocytes % 11.8 H Eosinophils % 3.6 Basophils % 0.4 Nucleated Red Blood Cells % 0.0 Neutrophils # 3.2 Lymphocytes # 0.7 L Monocytes # 0.6 Eosinophils # 0.2 Basophils # 0.0 Nucleated Red Blood Cells # 0.0 Sodium Level 139 Potassium Level 3.5 Chloride Level 92 L Carbon Dioxide Level 39 H Anion Gap 12 Blood Urea Nitrogen 11 Creatinine 1.15 Glucose Level 86 Calcium Level 9.0 Medications Medications Current Medications Ondansetron HCl (Zofran Inj) 4 mg Q6H PRN IV NAUSEA AND/OR VOMITING Last administered on 03/12/17 08:29; Admin Dose 4 MG; Start 03/11/17 at 12:30 Acetaminophen (Tylenol Tab) 650 mg Q6H PRN PO PAIN LEVEL 1-3 OR FEVER Last administered on 03/11/17 14:17; Admin Dose 650 MG; Start 03/11/17 at 12:30 Morphine Sulfate (morphine) 2 mg Q4H PRN IV PAIN LEVEL 7-10 Last administered on 03/14/17 06:37; Admin Dose 2 MG; Start 03/11/17 at 12:30 Famotidine (Pepcid) 20 mg BID PO Last administered on 03/14/17 09:06; Admin Dose 20 MG; Start 03/11/17 at 21:00 Apixaban (Eliquis) 2.5 mg BID PO Last administered on 03/14/17 09:04; Admin Dose 2.5 MG; Start 03/11/17 at 21:00 Atorvastatin Calcium (Lipitor) 20 mg QHS PO Last administered on 03/13/17 21: 21; Admin Dose 20 MG; Start 03/11/17 at 21:00 Escitalopram Oxalate (Lexapro) 10 mg DAILY PO Last administered on 03/14/17 09:05; Admin Dose 10 MG; Start 03/12/17 at 09:00 Furosemide (Lasix) 40 mg BID@18 PO Last administered on 03/14/17 06:38; Admin Dose 40 MG; Start 03/11/17 at 18:00 Hydrocodone Bit/ Homatropine Methylb (Hycodan Liquid) 10 ml TID PO Last administered on 03/14/17 09:05; Admin Dose 10 ML; Start 03/11/17 at 21:00 Morphine Sulfate (Ms Contin (Er)) 15 mg BID PO Last administered on 03/14/17 09:09; Admin Dose 15 MG; Start 03/11/17 at 21:00 Pantoprazole (Protonix Tab) 40 mg DAILY@06 PO Last administered on 03/14/17 06:38; Admin Dose 40 MG; Start 03/12/17 at 06:00 Potassium Chloride (Klor-Con 20) 20 meq BID PO Last administered on 03/14/17 09:06; Admin Dose 20 MEQ; Start 03/11/17 at 21:00 Senna (Senokot) 1 tab DAILY PRN PO CONSTIPATION; Start 03/11/17 at 14:30 Non-Formulary Medication 2 ea BID NASAL Last administered on 03/14/17 09:06; Admin Dose 2 EA; Start 03/11/17 at 15:31 ISMA CUTLER Mar 14, 2017 12:29
--- NOTE | 2017-03-14 12:44 | PN ---
Date/Time of Note Date/Time of Note DATE: 03/14/17 TIME: 12:39 Assessment/Plan VTE Prophylaxis VTE Prophylaxis Intervention: SCD's Lines/Catheters [facility] Saline Lock Assessment/Plan Chief Complaint/Hosp Course Patient is lethargic but easily arousable, comfortable at rest and supplemental oxygen and BiPAP overnight, denies fevers. Assessment/Plan - Hypercapnic respiratory failure due to advanced lung malignancy with almost complete whiteout of the right lung. Dr. Philip is following in pulmonology consultation - Advanced non-small cell lung CA, Dr. Scanlon is following in oncology consultation. - Nonocclusive deep venous thrombosis bilateral upper extremities. Continue Eliquis. - Acute on chronic diastolic congestive heart failure, continue gentle diuresis , continue to monitor electrolytes. - h/o fungal pneumonia, on maintenance voriconazole - CAD, continue aspirin. - Hyperlipidemia, continue statin - Hypothyroidism, continue levothyroxine. - Paroxysmal atrial fibrillation, controlled rate, patient is continued on Eliquis. - COPD - Obesity with BMI 42 - Status post treatment for postobstructive pneumonia and paronychia Further recommendations based on clinical course. Plan of care discussed with Dr. Lincoln. Problems: Exam/Review of Systems Vital Signs Vitals Vital Signs Date Time Temp Pulse Resp B/P Pulse Ox O2 Delivery O2 Flow Rate FiO2 03/14/17 12:00 87 03/14/17 11:36 98.1 19 122/82 98 03/14/17 05:16 5.0 03/14/17 01:53 40 03/13/17 20:00 Nasal Cannula Intake and Output 03/13/17 03/13/17 03/14/17 15:00 23:00 07:00 Intake Total 500 ml 450 ml Output Total 800 ml 650 ml Balance -300 ml -200 ml Exam Constitutional: alert, oriented Head: normocephalic Neck: supple Respiratory: diminished breath sounds Cardiovascular: nl pulses Gastrointestinal: soft Extremities: edema Results Result Diagram: 03/14/17 0837 03/14/17 0837 Results 24 hrs Laboratory Tests Test 03/14/17 08:37 White Blood Count 4.7 L Red Blood Count 3.02 L Hemoglobin 9.5 L Hematocrit 30.8 L Mean Corpuscular Volume 102.0 H Mean Corpuscular Hemoglobin 31.5 Mean Corpuscular Hemoglobin Concent 30.8 L Red Cell Distribution Width 13.6 Platelet Count 145 Mean Platelet Volume 11.2 H Neutrophils % 68.4 Lymphocytes % 15.6 Monocytes % 11.8 H Eosinophils % 3.6 Basophils % 0.4 Nucleated Red Blood Cells % 0.0 Neutrophils # 3.2 Lymphocytes # 0.7 L Monocytes # 0.6 Eosinophils # 0.2 Basophils # 0.0 Nucleated Red Blood Cells # 0.0 Sodium Level 139 Potassium Level 3.5 Chloride Level 92 L Carbon Dioxide Level 39 H Anion Gap 12 Blood Urea Nitrogen 11 Creatinine 1.15 Glucose Level 86 Calcium Level 9.0 Medications Medications Current Medications Ondansetron HCl (Zofran Inj) 4 mg Q6H PRN IV NAUSEA AND/OR VOMITING Last administered on 03/12/17 08:29; Admin Dose 4 MG; Start 03/11/17 at 12:30 Acetaminophen (Tylenol Tab) 650 mg Q6H PRN PO PAIN LEVEL 1-3 OR FEVER Last administered on 03/11/17 14:17; Admin Dose 650 MG; Start 03/11/17 at 12:30 Morphine Sulfate (morphine) 2 mg Q4H PRN IV PAIN LEVEL 7-10 Last administered on 03/14/17 06:37; Admin Dose 2 MG; Start 03/11/17 at 12:30 Famotidine (Pepcid) 20 mg BID PO Last administered on 03/14/17 09:06; Admin Dose 20 MG; Start 03/11/17 at 21:00 Apixaban (Eliquis) 2.5 mg BID PO Last administered on 03/14/17 09:04; Admin Dose 2.5 MG; Start 03/11/17 at 21:00 Atorvastatin Calcium (Lipitor) 20 mg QHS PO Last administered on 03/13/17 21: 21; Admin Dose 20 MG; Start 03/11/17 at 21:00 Escitalopram Oxalate (Lexapro) 10 mg DAILY PO Last administered on 03/14/17 09:05; Admin Dose 10 MG; Start 03/12/17 at 09:00 Furosemide (Lasix) 40 mg BID@ PO Last administered on 03/14/17 06:38; Admin Dose 40 MG; Start 03/11/17 at 18:00 Hydrocodone Bit/ Homatropine Methylb (Hycodan Liquid) 10 ml TID PO Last administered on 03/14/17 09:05; Admin Dose 10 ML; Start 03/11/17 at 21:00 Morphine Sulfate (Ms Contin (Er)) 15 mg BID PO Last administered on 03/14/17 09:09; Admin Dose 15 MG; Start 03/11/17 at 21:00 Pantoprazole (Protonix Tab) 40 mg DAILY@06 PO Last administered on 03/14/17 06:38; Admin Dose 40 MG; Start 03/12/17 at 06:00 Potassium Chloride (Klor-Con 20) 20 meq BID PO Last administered on 03/14/17 09:06; Admin Dose 20 MEQ; Start 03/11/17 at 21:00 Senna (Senokot) 1 tab DAILY PRN PO CONSTIPATION; Start 03/11/17 at 14:30 Non-Formulary Medication 2 ea BID NASAL Last administered on 03/14/17 09:06; Admin Dose 2 EA; Start 03/11/17 at 15:31 LUBA EARLY Mar 14, 2017 12:44
[2017-03-14] MEDS: ATORVASTATIN 20 MG TAB PO SCH (21:25)
--- NOTE | 2017-03-14 23:12 | CONS ---
Date/Time of Note Date/Time of Note DATE: 03/14/17 TIME: 23:12 Assessment/Plan Assessment/Plan Chief Complaint/Hosp Course Lung cancer with ongoing chemotherapy. chemo on hold lung cancer relatively controlled based on recent CTs Leukocytosis. Anemia. Thrombocytopenia-stable, cont to monitor DVT-RUE on eliquis Chest pain. Abnormal electrocardiogram with nonspecific ST and T-wave abnormalities Bradycardia, transient while on beta matthew. Hypotension-improved Shortness of [id number] PNA Renal failure-ongoing s CHF-worsening edema Problems: Consultation Date/Type/Reason Admit Date/Time Mar 10, 2017 at 23:35 Type of Consultation: HEMEONC 24 HR Interval Summary Free Text/Dictation all noted d/w pt and Exam/Review of Systems Vital Signs Vitals Vital Signs Date Time Temp Pulse Resp B/P Pulse Ox O2 Delivery O2 Flow Rate FiO2 03/14/17 20:00 98.7 63 16 119/79 98 03/14/17 19:48 5.0 03/14/17 19:30 Nasal Cannula 03/14/17 01:53 40 Intake and Output 03/13/17 03/13/17 03/14/17 15:00 23:00 07:00 Intake Total 500 ml 450 ml Output Total 800 ml 650 ml Balance -300 ml -200 ml Exam Constitutional: alert, oriented Head: normocephalic Neck: supple Respiratory: diminished breath sounds Cardiovascular: nl pulses Gastrointestinal: soft Extremities: edema Results Result Diagram: 03/14/17 0837 03/14/17 0837 Results 24 hrs Laboratory Tests Test 03/14/17 08:37 White Blood Count 4.7 L Red Blood Count 3.02 L Hemoglobin 9.5 L Hematocrit 30.8 L Mean Corpuscular Volume 102.0 H Mean Corpuscular Hemoglobin 31.5 Mean Corpuscular Hemoglobin Concent 30.8 L Red Cell Distribution Width 13.6 Platelet Count 145 Mean Platelet Volume 11.2 H Neutrophils % 68.4 Lymphocytes % 15.6 Monocytes % 11.8 H Eosinophils % 3.6 Basophils % 0.4 Nucleated Red Blood Cells % 0.0 Neutrophils # 3.2 Lymphocytes # 0.7 L Monocytes # 0.6 Eosinophils # 0.2 Basophils # 0.0 Nucleated Red Blood Cells # 0.0 Sodium Level 139 Potassium Level 3.5 Chloride Level 92 L Carbon Dioxide Level 39 H Anion Gap 12 Blood Urea Nitrogen 11 Creatinine 1.15 Glucose Level 86 Calcium Level 9.0 Medications Medications Current Medications Ondansetron HCl (Zofran Inj) 4 mg Q6H PRN IV NAUSEA AND/OR VOMITING Last administered on 03/12/17 08:29; Admin Dose 4 MG; Start 03/11/17 at 12:30 Acetaminophen (Tylenol Tab) 650 mg Q6H PRN PO PAIN LEVEL 1-3 OR FEVER Last administered on 03/11/17 14:17; Admin Dose 650 MG; Start 03/11/17 at 12:30 Morphine Sulfate (morphine) 2 mg Q4H PRN IV PAIN LEVEL 7-10 Last administered on 03/14/17 06:37; Admin Dose 2 MG; Start 03/11/17 at 12:30 Famotidine (Pepcid) 20 mg BID PO Last administered on 03/14/17 21:24; Admin Dose 20 MG; Start 03/11/17 at 21:00 Apixaban (Eliquis) 2.5 mg BID PO Last administered on 03/14/17 21:25; Admin Dose 2.5 MG; Start 03/11/17 at 21:00 Atorvastatin Calcium (Lipitor) 20 mg QHS PO Last administered on 03/14/17 21: 25; Admin Dose 20 MG; Start 03/11/17 at 21:00 Escitalopram Oxalate (Lexapro) 10 mg DAILY PO Last administered on 03/14/17 09:05; Admin Dose 10 MG; Start 03/12/17 at 09:00 Furosemide (Lasix) 40 mg BID@ PO Last administered on 03/14/17 19:39; Admin Dose 40 MG; Start 03/11/17 at 18:00 Hydrocodone Bit/ Homatropine Methylb (Hycodan Liquid) 10 ml TID PO Last administered on 03/14/17 21:26; Admin Dose 10 ML; Start 03/11/17 at 21:00 Morphine Sulfate (Ms Contin (Er)) 15 mg BID PO Last administered on 03/14/17 21:24; Admin Dose 15 MG; Start 03/11/17 at 21:00 Pantoprazole (Protonix Tab) 40 mg DAILY@06 PO Last administered on 03/14/17 06:38; Admin Dose 40 MG; Start 03/12/17 at 06:00 Potassium Chloride (Klor-Con 20) 20 meq BID PO Last administered on 03/14/17 21:26; Admin Dose 20 MEQ; Start 03/11/17 at 21:00 Senna (Senokot) 1 tab DAILY PRN PO CONSTIPATION; Start 03/11/17 at 14:30 Non-Formulary Medication 2 ea BID NASAL Last administered on 03/14/17 21:29; Admin Dose 2 EA; Start 03/11/17 at 15:31 DAHIANA BABCOCK MD Mar 14, 2017 23:12
[2017-03-15] VITALS (10 sets, daily range): BP systolic 108–130; BP diastolic 72–89; PULSE 77–100; RESP 16–21
[2017-03-15] MEDS: ALBUTEROL/IPRATROPIUM (NEB) 3 ML AMP HHN PRN (04:41)
[2017-03-15] MEDS: LEVOTHYROXINE 75 MCG TAB PO SCH (06:30)
[2017-03-15] MEDS: FUROSEMIDE 40 MG TAB PO SCH ×2 (06:31→17:54)
[2017-03-15] MEDS: PANTOPRAZOLE (EC) 40 MG TAB PO SCH (06:31)
[2017-03-15] MEDS: FAMOTIDINE 20 MG TAB PO SCH ×2 (09:49→20:23)
[2017-03-15] MEDS: DRONABINOL 2.5 MG CAP PO SCH ×3 (09:49→17:54)
[2017-03-15] MEDS: HYDROCODONE/HOMATROPINE 5ML CUP PO SCH ×3 (09:49→20:23)
[2017-03-15] MEDS: morphine (ER) 15 MG TAB PO SCH ×2 (09:50→20:23)
[2017-03-15] MEDS: APIXABAN 5 MG TABLET PO SCH ×2 (09:50→20:23)
[2017-03-15] MEDS: ESCITALOPRAM 10 MG TAB PO SCH (09:50)
[2017-03-15] MEDS: POTASSIUM CHLORIDE (SR) 20 MEQ TAB PO SCH ×2 (09:50→20:23)
[2017-03-15] MEDS: SPECIAL NON-STANDARD MEDICATION (BULK) NASAL SCH ×2 (09:51→22:23)
[2017-03-15] MEDS: morphine 2 MG INJ IV PRN ×3 (11:37→20:22)
[2017-03-15] MEDS: ONDANSETRON 4 MG INJ IV PRN ×2 (11:48→16:40)
--- NOTE | 2017-03-15 12:17 | CONS ---
Date/Time of Note Date/Time of Note DATE: 03/15/17 TIME: 12:15 Assessment/Plan Assessment/Plan Additional Assessment/Plan Assessment and recommendations; 1. Patient admitted with shortness of breath due to extensive right lung malignancy with almost complete right lung whiteout. 2. Left upper extremity DVT. 3. COPD. 4. Hypercapnic respiratory failure. Patient on BiPAP intermittently. 5. Renal insufficiency with normalization of serum creatinine. Continue current supportive care. Prognosis is poor. Consultation Date/Type/Reason Admit Date/Time Mar 10, 2017 at 23:35 Type of Consultation: Pulmonary 24 HR Interval Summary Free Text/Dictation Patient's condition is stable. Still complains of shortness of breath upon minimal exertion. Complains of occasional hemoptysis. General exam; elderly male, morbidly obese, awake and alert. Currently in no distress. Exam/Review of Systems Vital Signs Vitals Vital Signs Date Time Temp Pulse Resp B/P Pulse Ox O2 Delivery O2 Flow Rate FiO2 03/15/17 11:37 98.6 111 18 116/79 99 03/15/17 04:42 Nasal Cannula 5.0 03/14/17 01:53 40 Intake and Output 03/14/17 03/14/17 03/15/17 15:00 23:00 07:00 Intake Total 1200 ml 600 ml Balance 1200 ml 600 ml Exam HEENT exam; supple neck, no JVD. No lymphadenopathy. Midline trachea. No thyromegaly. Patient has fair dentition. Chest exam; diminished breath sounds right lung. Left lung is clear to auscultation. S1-S2 audible, no murmurs. Regular rhythm. Abdomen exam; soft, no organomegaly. Bowel sounds audible. Protuberant. Extremity exam; no peripheral edema. No clubbing. 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 Results Result Diagram: 03/15/17 0841 03/15/17 0841 Results 24 hrs Laboratory Tests Test 03/15/17 08:41 White Blood Count 6.4 # Red Blood Count 3.50 L Hemoglobin 11.1 L Hematocrit 35.7 L Mean Corpuscular Volume 102.0 H Mean Corpuscular Hemoglobin 31.7 Mean Corpuscular Hemoglobin Concent 31.1 L Red Cell Distribution Width 13.5 Platelet Count 161 Mean Platelet Volume 10.9 H Neutrophils % 74.9 Lymphocytes % 12.3 L Monocytes % 10.6 Eosinophils % 1.1 Basophils % 0.5 Nucleated Red Blood Cells % 0.0 Neutrophils # 4.8 Lymphocytes # 0.8 Monocytes # 0.7 Eosinophils # 0.1 Basophils # 0.0 Nucleated Red Blood Cells # 0.0 Sodium Level 141 Potassium Level 3.8 Chloride Level 93 L Carbon Dioxide Level 37 H Anion Gap 15 Blood Urea Nitrogen 12 Creatinine 1.22 Glucose Level 96 Calcium Level 8.8 Medications Medications Current Medications Ondansetron HCl (Zofran Inj) 4 mg Q6H PRN IV NAUSEA AND/OR VOMITING Last administered on 03/15/17 11:48; Admin Dose 4 MG; Start 03/11/17 at 12:30 Acetaminophen (Tylenol Tab) 650 mg Q6H PRN PO PAIN LEVEL 1-3 OR FEVER Last administered on 03/11/17 14:17; Admin Dose 650 MG; Start 03/11/17 at 12:30 Morphine Sulfate (morphine) 2 mg Q4H PRN IV PAIN LEVEL 7-10 Last administered on 03/15/17 11:37; Admin Dose 2 MG; Start 03/11/17 at 12:30 Famotidine (Pepcid) 20 mg BID PO Last administered on 03/15/17 09:49; Admin Dose 20 MG; Start 03/11/17 at 21:00 Apixaban (Eliquis) 2.5 mg BID PO Last administered on 03/15/17 09:50; Admin Dose 2.5 MG; Start 03/11/17 at 21:00 Atorvastatin Calcium (Lipitor) 20 mg QHS PO Last administered on 03/14/17 21: 25; Admin Dose 20 MG; Start 03/11/17 at 21:00 Escitalopram Oxalate (Lexapro) 10 mg DAILY PO Last administered on 03/15/17 09:50; Admin Dose 10 MG; Start 03/12/17 at 09:00 Furosemide (Lasix) 40 mg BID@ PO Last administered on 03/15/17 06:31; Admin Dose 40 MG; Start 03/11/17 at 18:00 Hydrocodone Bit/ Homatropine Methylb (Hycodan Liquid) 10 ml TID PO Last administered on 03/15/17 09:49; Admin Dose 10 ML; Start 03/11/17 at 21:00 Morphine Sulfate (Ms Contin (Er)) 15 mg BID PO Last administered on 03/15/17 09:50; Admin Dose 15 MG; Start 03/11/17 at 21:00 Pantoprazole (Protonix Tab) 40 mg DAILY@06 PO Last administered on 03/15/17 06:31; Admin Dose 40 MG; Start 03/12/17 at 06:00 Potassium Chloride (Klor-Con 20) 20 meq BID PO Last administered on 03/15/17 09:50; Admin Dose 20 MEQ; Start 03/11/17 at 21:00 Senna (Senokot) 1 tab DAILY PRN PO CONSTIPATION; Start 03/11/17 at 14:30 Non-Formulary Medication 2 ea BID NASAL Last administered on 03/15/17 09:51; Admin Dose 2 EA; Start 03/11/17 at 15:31 ISMA CUTLER Mar 15, 2017 12:17
--- NOTE | 2017-03-15 19:10 | CONS ---
Date/Time of Note Date/Time of Note DATE: 03/15/17 TIME: 19:07 Assessment/Plan Assessment/Plan Chief Complaint/Hosp Course Lung cancer with ongoing chemotherapy. chemo on hold lung cancer relatively controlled based on recent CTs will try to d/w situation with SEVERE DECONDITIONING, POOR RS OVERALL PROGNOSIS- POOR Leukocytosis. Anemia. Thrombocytopenia-stable, cont to monitor DVT-RUE on eliquis Chest pain. Abnormal electrocardiogram with nonspecific ST and T-wave abnormalities Bradycardia, transient while on beta matthew. Hypotension-improved Shortness of [id number] PNA Renal failure-ongoing s CHF-worsening edema Problems: Consultation Date/Type/Reason Admit Date/Time Mar 10, 2017 at 23:35 Type of Consultation: hemeon Referring Provider: MARYAM FARMER MD 24 HR Interval Summary Free Text/Dictation all noted weak almost bedridden Exam/Review of Systems Vital Signs Vitals Vital Signs Date Time Temp Pulse Resp B/P Pulse Ox O2 Delivery O2 Flow Rate FiO2 03/15/17 17:29 5.0 03/15/17 16:14 98.0 101 18 126/86 97 03/15/17 08:39 Nasal Cannula 03/14/17 01:53 40 Intake and Output 03/14/17 03/14/17 03/15/17 15:00 23:00 07:00 Intake Total 1200 ml 600 ml Balance 1200 ml 600 ml Exam Constitutional: alert, obese, oriented Psych: nl mood/affect, no complaints Head: other (alopecia) Eyes: nl conjunctiva, nl lids ENMT: nl external ears & nose, nl nasal mucosa & septum Neck: supple Respiratory: diminished breath sounds Cardiovascular: nl pulses, regular rate and rhythm Musculoskeletal: nl extremities to inspection Extremities: No edema Neurological: CARBIDE DIE MAKER II-XII intact, nl mental status, nl speech, nl strength Skin: rash or lesions (skin changes and detachment; no purulence or erythema) Results Result Diagram: 03/15/17 0841 03/15/17 0841 Results 24 hrs Laboratory Tests Test 03/15/17 08:41 White Blood Count 6.4 # Red Blood Count 3.50 L Hemoglobin 11.1 L Hematocrit 35.7 L Mean Corpuscular Volume 102.0 H Mean Corpuscular Hemoglobin 31.7 Mean Corpuscular Hemoglobin Concent 31.1 L Red Cell Distribution Width 13.5 Platelet Count 161 Mean Platelet Volume 10.9 H Neutrophils % 74.9 Lymphocytes % 12.3 L Monocytes % 10.6 Eosinophils % 1.1 Basophils % 0.5 Nucleated Red Blood Cells % 0.0 Neutrophils # 4.8 Lymphocytes # 0.8 Monocytes # 0.7 Eosinophils # 0.1 Basophils # 0.0 Nucleated Red Blood Cells # 0.0 Sodium Level 141 Potassium Level 3.8 Chloride Level 93 L Carbon Dioxide Level 37 H Anion Gap 15 Blood Urea Nitrogen 12 Creatinine 1.22 Glucose Level 96 Calcium Level 8.8 Medications Medications Current Medications Ondansetron HCl (Zofran Inj) 4 mg Q6H PRN IV NAUSEA AND/OR VOMITING Last administered on 03/15/17 16:40; Admin Dose 4 MG; Start 03/11/17 at 12:30 Acetaminophen (Tylenol Tab) 650 mg Q6H PRN PO PAIN LEVEL 1-3 OR FEVER Last administered on 03/11/17 14:17; Admin Dose 650 MG; Start 03/11/17 at 12:30 Morphine Sulfate (morphine) 2 mg Q4H PRN IV PAIN LEVEL 7-10 Last administered on 03/15/17 16:40; Admin Dose 2 MG; Start 03/11/17 at 12:30 Famotidine (Pepcid) 20 mg BID PO Last administered on 03/15/17 09:49; Admin Dose 20 MG; Start 03/11/17 at 21:00 Apixaban (Eliquis) 2.5 mg BID PO Last administered on 03/15/17 09:50; Admin Dose 2.5 MG; Start 03/11/17 at 21:00 Atorvastatin Calcium (Lipitor) 20 mg QHS PO Last administered on 03/14/17 21: 25; Admin Dose 20 MG; Start 03/11/17 at 21:00 Escitalopram Oxalate (Lexapro) 10 mg DAILY PO Last administered on 03/15/17 09:50; Admin Dose 10 MG; Start 03/12/17 at 09:00 Furosemide (Lasix) 40 mg BID@,18 PO Last administered on 03/15/17 17:54; Admin Dose 40 MG; Start 03/11/17 at 18:00 Hydrocodone Bit/ Homatropine Methylb (Hycodan Liquid) 10 ml TID PO Last administered on 03/15/17 15:44; Admin Dose 10 ML; Start 03/11/17 at 21:00 Morphine Sulfate (Ms Contin (Er)) 15 mg BID PO Last administered on 03/15/17 09:50; Admin Dose 15 MG; Start 03/11/17 at 21:00 Pantoprazole (Protonix Tab) 40 mg DAILY@06 PO Last administered on 03/15/17 06:31; Admin Dose 40 MG; Start 03/12/17 at 06:00 Potassium Chloride (Klor-Con 20) 20 meq BID PO Last administered on 03/15/17 09:50; Admin Dose 20 MEQ; Start 03/11/17 at 21:00 Senna (Senokot) 1 tab DAILY PRN PO CONSTIPATION; Start 03/11/17 at 14:30 Non-Formulary Medication 2 ea BID NASAL Last administered on 03/15/17 09:51; Admin Dose 2 EA; Start 03/11/17 at 15:31 DAHIANA BABCOCK MD Mar 15, 2017 19:10
[2017-03-15] MEDS: ATORVASTATIN 20 MG TAB PO SCH (20:23)
--- NOTE | 2017-03-15 22:12 | PN ---
Date/Time of Note Date/Time of Note DATE: 03/15/17 TIME: 22:12 Assessment/Plan Lines/Catheters IV [facility] Type (from [facility]): Saline [facility] Urinary Cath still in place: No Assessment/Plan Assessment/Plan - Hypercapnic respiratory failure due to advanced lung malignancy with almost complete whiteout of the right lung. Dr. Philip is following in pulmonology consultation - Advanced non-small cell lung CA, Dr. Scanlon is following in oncology consultation. - Nonocclusive deep venous thrombosis bilateral upper extremities. Continue Eliquis. - Acute on chronic diastolic congestive heart failure, continue gentle diuresis , continue to monitor electrolytes. - h/o fungal pneumonia, on maintenance voriconazole - CAD, continue aspirin. - Hyperlipidemia, continue statin - Hypothyroidism, continue levothyroxine. - Paroxysmal atrial fibrillation, controlled rate, patient is continued on Eliquis. - COPD - Obesity with BMI 42 - Status post treatment for postobstructive pneumonia and paronychia Further recommendations based on clinical course. Plan of care discussed with Dr. Lincoln. Exam/Review of Systems Vital Signs Vitals Vital Signs Date Time Temp Pulse Resp B/P Pulse Ox O2 Delivery O2 Flow Rate FiO2 03/15/17 21:00 98 03/15/17 20:25 5.0 03/15/17 20:00 98.4 21 130/89 97 03/15/17 08:39 Nasal Cannula 03/14/17 01:53 40 Intake and Output 03/14/17 03/14/17 03/15/17 15:00 23:00 07:00 Intake Total 1200 ml 600 ml Balance 1200 ml 600 ml Results Result Diagram: 03/15/17 0841 03/15/17 0841 Results 24 hrs Laboratory Tests Test 03/15/17 08:41 White Blood Count 6.4 # Red Blood Count 3.50 L Hemoglobin 11.1 L Hematocrit 35.7 L Mean Corpuscular Volume 102.0 H Mean Corpuscular Hemoglobin 31.7 Mean Corpuscular Hemoglobin Concent 31.1 L Red Cell Distribution Width 13.5 Platelet Count 161 Mean Platelet Volume 10.9 H Neutrophils % 74.9 Lymphocytes % 12.3 L Monocytes % 10.6 Eosinophils % 1.1 Basophils % 0.5 Nucleated Red Blood Cells % 0.0 Neutrophils # 4.8 Lymphocytes # 0.8 Monocytes # 0.7 Eosinophils # 0.1 Basophils # 0.0 Nucleated Red Blood Cells # 0.0 Sodium Level 141 Potassium Level 3.8 Chloride Level 93 L Carbon Dioxide Level 37 H Anion Gap 15 Blood Urea Nitrogen 12 Creatinine 1.22 Glucose Level 96 Calcium Level 8.8 Medications Medications Current Medications Ondansetron HCl (Zofran Inj) 4 mg Q6H PRN IV NAUSEA AND/OR VOMITING Last administered on 03/15/17 16:40; Admin Dose 4 MG; Start 03/11/17 at 12:30 Acetaminophen (Tylenol Tab) 650 mg Q6H PRN PO PAIN LEVEL 1-3 OR FEVER Last administered on 03/11/17 14:17; Admin Dose 650 MG; Start 03/11/17 at 12:30 Morphine Sulfate (morphine) 2 mg Q4H PRN IV PAIN LEVEL 7-10 Last administered on 03/15/17 20:22; Admin Dose 2 MG; Start 03/11/17 at 12:30 Famotidine (Pepcid) 20 mg BID PO Last administered on 03/15/17 20:23; Admin Dose 20 MG; Start 03/11/17 at 21:00 Apixaban (Eliquis) 2.5 mg BID PO Last administered on 03/15/17 20:23; Admin Dose 2.5 MG; Start 03/11/17 at 21:00 Atorvastatin Calcium (Lipitor) 20 mg QHS PO Last administered on 03/15/17 20: 23; Admin Dose 20 MG; Start 03/11/17 at 21:00 Escitalopram Oxalate (Lexapro) 10 mg DAILY PO Last administered on 03/15/17 09:50; Admin Dose 10 MG; Start 03/12/17 at 09:00 Furosemide (Lasix) 40 mg BID@,18 PO Last administered on 03/15/17 17:54; Admin Dose 40 MG; Start 03/11/17 at 18:00 Hydrocodone Bit/ Homatropine Methylb (Hycodan Liquid) 10 ml TID PO Last administered on 03/15/17 20:23; Admin Dose 10 ML; Start 03/11/17 at 21:00 Morphine Sulfate (Ms Contin (Er)) 15 mg BID PO Last administered on 03/15/17 20:23; Admin Dose 15 MG; Start 03/11/17 at 21:00 Pantoprazole (Protonix Tab) 40 mg DAILY@06 PO Last administered on 03/15/17 06:31; Admin Dose 40 MG; Start 03/12/17 at 06:00 Potassium Chloride (Klor-Con 20) 20 meq BID PO Last administered on 03/15/17 20:23; Admin Dose 20 MEQ; Start 03/11/17 at 21:00 Senna (Senokot) 1 tab DAILY PRN PO CONSTIPATION; Start 03/11/17 at 14:30 Non-Formulary Medication 2 ea BID NASAL Last administered on 03/15/17 09:51; Admin Dose 2 EA; Start 03/11/17 at 15:31 TRAMAINE ELLSWORTH Mar 15, 2017 22:12
[2017-03-16] VITALS (14 sets, daily range): BP systolic 116–154; BP diastolic 60–87; PULSE 86–100; RESP 18–20
[2017-03-16] MEDS: morphine 2 MG INJ IV PRN ×3 (00:10→20:43)
[2017-03-16] MEDS: PANTOPRAZOLE (EC) 40 MG TAB PO SCH (05:56)
[2017-03-16] MEDS: FUROSEMIDE 40 MG TAB PO SCH ×2 (05:56→17:05)
[2017-03-16] MEDS: LEVOTHYROXINE 75 MCG TAB PO SCH (06:48)
[2017-03-16] MEDS: FAMOTIDINE 20 MG TAB PO SCH ×2 (08:40→20:42)
[2017-03-16] MEDS: DRONABINOL 2.5 MG CAP PO SCH ×3 (08:40→17:05)
[2017-03-16] MEDS: APIXABAN 5 MG TABLET PO SCH ×2 (08:40→20:43)
[2017-03-16] MEDS: HYDROCODONE/HOMATROPINE 5ML CUP PO SCH ×3 (08:40→20:42)
[2017-03-16] MEDS: POTASSIUM CHLORIDE (SR) 20 MEQ TAB PO SCH ×2 (08:41→20:43)
[2017-03-16] MEDS: morphine (ER) 15 MG TAB PO SCH ×2 (08:41→20:43)
[2017-03-16] MEDS: ESCITALOPRAM 10 MG TAB PO SCH (08:41)
[2017-03-16] MEDS: SPECIAL NON-STANDARD MEDICATION (BULK) NASAL SCH ×2 (08:42→17:05)
--- NOTE | 2017-03-16 10:44 | CONS ---
Date/Time of Note Date/Time of Note DATE: 03/16/17 TIME: 10:42 Assessment/Plan Assessment/Plan Additional Assessment/Plan Assessment and recommendations; 1. Patient admitted again for recurrent hypoxemia owing to extensive metastatic non-small cell lung cancer involving the right lung. 2. Underlying COPD. 3. Hypercapnic respiratory failure, patient on intermittent BiPAP. 4. Mild thrombocytopenia. 5. Mild renal insufficiency. 6. Left upper extremity DVT. Continue current supportive care. Prognosis is poor. Consultation Date/Type/Reason Admit Date/Time Mar 10, 2017 at 23:35 Type of Consultation: Pulmonary Referring Provider: MARYAM FARMER MD 24 HR Interval Summary Free Text/Dictation Patient's condition is stable. Still complains of dyspnea on minimal exertion. Complains of cough with occasional hemoptysis. General exam; elderly male, awake and alert. Currently in no distress. Exam/Review of Systems Vital Signs Vitals Vital Signs Date Time Temp Pulse Resp B/P Pulse Ox O2 Delivery O2 Flow Rate FiO2 03/16/17 08:03 99.0 91 18 145/87 97 03/16/17 05:21 5.0 03/16/17 02:22 40 03/16/17 00:00 Nasal Cannula Intake and Output 03/15/17 03/15/17 03/16/17 15:00 23:00 07:00 Intake Total 550 ml 500 ml Output Total 650 ml Balance -100 ml 500 ml Exam HEENT exam; supple neck, no JVD. No lymphadenopathy. Midline trachea. No thyromegaly. Pharynx is clear. Patient has fair dentition. Patient is alopecic. Chest exam; diminished breath sounds right lung. Left lung is clear to auscultation. S1-S2 audible, no murmurs. Regular rhythm. Abdomen exam; soft, protuberant. Nontender. No organomegaly. Bowel sounds audible. Extremity exam; no peripheral edema. 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 HISTOLOGICAL ILLUSTRATOR exam; no focal deficit. Results Result Diagram: 03/16/17 0702 03/16/17 0702 Results 24 hrs Laboratory Tests Test 03/16/17 07:02 White Blood Count 4.9 # Red Blood Count 3.19 L Hemoglobin 9.9 L Hematocrit 32.4 L Mean Corpuscular Volume 101.6 H Mean Corpuscular Hemoglobin 31.0 Mean Corpuscular Hemoglobin Concent 30.6 L Red Cell Distribution Width 13.5 Platelet Count 126 #L Mean Platelet Volume 10.6 H Neutrophils % 62.4 Lymphocytes % 20.2 Monocytes % 12.1 H Eosinophils % 4.3 Basophils % 0.6 Nucleated Red Blood Cells % 0.0 Neutrophils # 3.1 Lymphocytes # 1.0 Monocytes # 0.6 Eosinophils # 0.2 Basophils # 0.0 Nucleated Red Blood Cells # 0.0 Sodium Level 138 Potassium Level 3.9 Chloride Level 93 L Carbon Dioxide Level 35 H Anion Gap 14 Blood Urea Nitrogen 14 Creatinine 1.29 H Glucose Level 91 Calcium Level 8.3 L Medications Medications Current Medications Ondansetron HCl (Zofran Inj) 4 mg Q6H PRN IV NAUSEA AND/OR VOMITING Last administered on 03/15/17 16:40; Admin Dose 4 MG; Start 03/11/17 at 12:30 Acetaminophen (Tylenol Tab) 650 mg Q6H PRN PO PAIN LEVEL 1-3 OR FEVER Last administered on 03/11/17 14:17; Admin Dose 650 MG; Start 03/11/17 at 12:30 Morphine Sulfate (morphine) 2 mg Q4H PRN IV PAIN LEVEL 7-10 Last administered on 03/16/17 04:23; Admin Dose 2 MG; Start 03/11/17 at 12:30 Famotidine (Pepcid) 20 mg BID PO Last administered on 03/16/17 08:40; Admin Dose 20 MG; Start 03/11/17 at 21:00 Apixaban (Eliquis) 2.5 mg BID PO Last administered on 03/16/17 08:40; Admin Dose 2.5 MG; Start 03/11/17 at 21:00 Atorvastatin Calcium (Lipitor) 20 mg QHS PO Last administered on 03/15/17 20: 23; Admin Dose 20 MG; Start 03/11/17 at 21:00 Escitalopram Oxalate (Lexapro) 10 mg DAILY PO Last administered on 03/16/17 08:41; Admin Dose 10 MG; Start 03/12/17 at 09:00 Furosemide (Lasix) 40 mg BID@06,18 PO Last administered on 03/16/17 05:56; Admin Dose 40 MG; Start 03/11/17 at 18:00 Hydrocodone Bit/ Homatropine Methylb (Hycodan Liquid) 10 ml TID PO Last administered on 03/16/17 08:40; Admin Dose 10 ML; Start 03/11/17 at 21:00 Morphine Sulfate (Ms Contin (Er)) 15 mg BID PO Last administered on 03/16/17 08:41; Admin Dose 15 MG; Start 03/11/17 at 21:00 Pantoprazole (Protonix Tab) 40 mg DAILY@06 PO Last administered on 03/16/17 05:56; Admin Dose 40 MG; Start 03/12/17 at 06:00 Potassium Chloride (Klor-Con 20) 20 meq BID PO Last administered on 03/16/17 08:41; Admin Dose 20 MEQ; Start 03/11/17 at 21:00 Senna (Senokot) 1 tab DAILY PRN PO CONSTIPATION; Start 03/11/17 at 14:30 Non-Formulary Medication 2 ea BID NASAL Last administered on 03/16/17 08:42; Admin Dose 2 EA; Start 03/11/17 at 15:31 ISMA CUTLER Mar 16, 2017 10:44
--- NOTE | 2017-03-16 18:09 | CONS ---
Date/Time of Note Date/Time of Note DATE: 03/16/17 TIME: 18:09 Assessment/Plan Assessment/Plan Chief Complaint/Hosp Course Lung cancer with ongoing chemotherapy. chemo on hold lung cancer relatively controlled based on recent CTs will try to d/w situation with SEVERE DECONDITIONING, POOR RS OVERALL PROGNOSIS- POOR Leukocytosis. Anemia. Thrombocytopenia-stable, cont to monitor DVT-RUE on eliquis Chest pain. Abnormal electrocardiogram with nonspecific ST and T-wave abnormalities Bradycardia, transient while on beta matthew. Hypotension-improved Shortness of [id number] PNA Renal failure-ongoing s CHF-worsening edema Problems: Consultation Date/Type/Reason Admit Date/Time Mar 10, 2017 at 23:35 Type of Consultation: HEMEON Referring Provider: MARYAM FARMER MD 24 HR Interval Summary Free Text/Dictation WEAK Exam/Review of Systems Vital Signs Vitals Vital Signs Date Time Temp Pulse Resp B/P Pulse Ox O2 Delivery O2 Flow Rate FiO2 03/16/17 16:15 98.2 90 18 138/69 98 03/16/17 08:00 Nasal Cannula 6.0 03/16/17 02:22 40 Intake and Output 03/15/17 03/15/17 03/16/17 15:00 23:00 07:00 Intake Total 550 ml 500 ml Output Total 650 ml Balance -100 ml 500 ml Exam Constitutional: alert, oriented Head: normocephalic Neck: supple Respiratory: diminished breath sounds Cardiovascular: nl pulses Gastrointestinal: soft Extremities: edema Results Result Diagram: 03/16/17 0702 03/16/17 0702 Results 24 hrs Laboratory Tests Test 03/16/17 07:02 White Blood Count 4.9 # Red Blood Count 3.19 L Hemoglobin 9.9 L Hematocrit 32.4 L Mean Corpuscular Volume 101.6 H Mean Corpuscular Hemoglobin 31.0 Mean Corpuscular Hemoglobin Concent 30.6 L Red Cell Distribution Width 13.5 Platelet Count 126 #L Mean Platelet Volume 10.6 H Neutrophils % 62.4 Lymphocytes % 20.2 Monocytes % 12.1 H Eosinophils % 4.3 Basophils % 0.6 Nucleated Red Blood Cells % 0.0 Neutrophils # 3.1 Lymphocytes # 1.0 Monocytes # 0.6 Eosinophils # 0.2 Basophils # 0.0 Nucleated Red Blood Cells # 0.0 Sodium Level 138 Potassium Level 3.9 Chloride Level 93 L Carbon Dioxide Level 35 H Anion Gap 14 Blood Urea Nitrogen 14 Creatinine 1.29 H Glucose Level 91 Calcium Level 8.3 L Medications Medications Current Medications Ondansetron HCl (Zofran Inj) 4 mg Q6H PRN IV NAUSEA AND/OR VOMITING Last administered on 03/15/17 16:40; Admin Dose 4 MG; Start 03/11/17 at 12:30 Acetaminophen (Tylenol Tab) 650 mg Q6H PRN PO PAIN LEVEL 1-3 OR FEVER Last administered on 03/11/17 14:17; Admin Dose 650 MG; Start 03/11/17 at 12:30 Morphine Sulfate (morphine) 2 mg Q4H PRN IV PAIN LEVEL 7-10 Last administered on 03/16/17 04:23; Admin Dose 2 MG; Start 03/11/17 at 12:30 Famotidine (Pepcid) 20 mg BID PO Last administered on 03/16/17 08:40; Admin Dose 20 MG; Start 03/11/17 at 21:00 Apixaban (Eliquis) 2.5 mg BID PO Last administered on 03/16/17 08:40; Admin Dose 2.5 MG; Start 03/11/17 at 21:00 Atorvastatin Calcium (Lipitor) 20 mg QHS PO Last administered on 03/15/17 20: 23; Admin Dose 20 MG; Start 03/11/17 at 21:00 Escitalopram Oxalate (Lexapro) 10 mg DAILY PO Last administered on 03/16/17 08:41; Admin Dose 10 MG; Start 03/12/17 at 09:00 Furosemide (Lasix) 40 mg BID@,18 PO Last administered on 03/16/17 17:05; Admin Dose 40 MG; Start 03/11/17 at 18:00 Hydrocodone Bit/ Homatropine Methylb (Hycodan Liquid) 10 ml TID PO Last administered on 03/16/17 13:34; Admin Dose 10 ML; Start 03/11/17 at 21:00 Morphine Sulfate (Ms Contin (Er)) 15 mg BID PO Last administered on 03/16/17 08:41; Admin Dose 15 MG; Start 03/11/17 at 21:00 Pantoprazole (Protonix Tab) 40 mg DAILY@06 PO Last administered on 03/16/17 05:56; Admin Dose 40 MG; Start 03/12/17 at 06:00 Potassium Chloride (Klor-Con 20) 20 meq BID PO Last administered on 03/16/17 08:41; Admin Dose 20 MEQ; Start 03/11/17 at 21:00 Senna (Senokot) 1 tab DAILY PRN PO CONSTIPATION; Start 03/11/17 at 14:30 Non-Formulary Medication 2 ea BID NASAL Last administered on 03/16/17 17:05; Admin Dose 2 EA; Start 03/11/17 at 15:31 DAHIANA BABCOCK MD Mar 16, 2017 18:09
--- NOTE | 2017-03-16 19:45 | PN ---
Date/Time of Note Date/Time of Note DATE: 03/16/17 TIME: 19:44 Assessment/Plan VTE Prophylaxis VTE Prophylaxis Intervention: SCD's Lines/Catheters IV [facility] Type (from [facility] Saline Lock Urinary Cath still in place: No Assessment/Plan Chief Complaint/Hosp Course Patient complains of shortness of breath on exertion, occasional shortness of breath while at rest, possible anxiety, continue supplemental oxygen and BiPAP overnight. Case management for [facility] facility placement. Assessment/Plan - Hypercapnic respiratory failure due to advanced lung malignancy with almost complete whiteout of the right lung. Dr. Philip is following in pulmonology consultation - Advanced non-small cell lung CA, Dr. Scanlon is following in oncology consultation. - Nonocclusive deep venous thrombosis bilateral upper extremities. Continue Eliquis. - Acute on chronic diastolic congestive heart failure, continue gentle diuresis , continue to monitor electrolytes. - h/o fungal pneumonia, on maintenance voriconazole - CAD, continue aspirin. - Hyperlipidemia, continue statin - Hypothyroidism, continue levothyroxine. - Paroxysmal atrial fibrillation, controlled rate, patient is continued on Eliquis. - COPD - Obesity with BMI 42 - Status post treatment for postobstructive pneumonia and paronychia Further recommendations based on clinical course. Plan of care discussed with Dr. Lincoln. Problems: Exam/Review of Systems Vital Signs Vitals Vital Signs Date Time Temp Pulse Resp B/P Pulse Ox O2 Delivery O2 Flow Rate FiO2 03/16/17 18:09 5.0 03/16/17 16:15 98.2 90 18 138/69 98 03/16/17 08:00 Nasal Cannula 03/16/17 02:22 40 Intake and Output 03/15/17 03/15/17 03/16/17 15:00 23:00 07:00 Intake Total 550 ml 500 ml Output Total 650 ml Balance -100 ml 500 ml Exam Constitutional: alert, oriented Head: normocephalic Neck: supple Respiratory: diminished breath sounds Cardiovascular: nl pulses Gastrointestinal: soft Extremities: edema Results Result Diagram: 03/16/17 0702 03/16/17 0702 Results 24 hrs Laboratory Tests Test 03/16/17 07:02 White Blood Count 4.9 # Red Blood Count 3.19 L Hemoglobin 9.9 L Hematocrit 32.4 L Mean Corpuscular Volume 101.6 H Mean Corpuscular Hemoglobin 31.0 Mean Corpuscular Hemoglobin Concent 30.6 L Red Cell Distribution Width 13.5 Platelet Count 126 #L Mean Platelet Volume 10.6 H Neutrophils % 62.4 Lymphocytes % 20.2 Monocytes % 12.1 H Eosinophils % 4.3 Basophils % 0.6 Nucleated Red Blood Cells % 0.0 Neutrophils # 3.1 Lymphocytes # 1.0 Monocytes # 0.6 Eosinophils # 0.2 Basophils # 0.0 Nucleated Red Blood Cells # 0.0 Sodium Level 138 Potassium Level 3.9 Chloride Level 93 L Carbon Dioxide Level 35 H Anion Gap 14 Blood Urea Nitrogen 14 Creatinine 1.29 H Glucose Level 91 Calcium Level 8.3 L Medications Medications Current Medications Ondansetron HCl (Zofran Inj) 4 mg Q6H PRN IV NAUSEA AND/OR VOMITING Last administered on 03/15/17 16:40; Admin Dose 4 MG; Start 03/11/17 at 12:30 Acetaminophen (Tylenol Tab) 650 mg Q6H PRN PO PAIN LEVEL 1-3 OR FEVER Last administered on 03/11/17 14:17; Admin Dose 650 MG; Start 03/11/17 at 12:30 Morphine Sulfate (morphine) 2 mg Q4H PRN IV PAIN LEVEL 7-10 Last administered on 03/16/17 04:23; Admin Dose 2 MG; Start 03/11/17 at 12:30 Famotidine (Pepcid) 20 mg BID PO Last administered on 03/16/17 08:40; Admin Dose 20 MG; Start 03/11/17 at 21:00 Apixaban (Eliquis) 2.5 mg BID PO Last administered on 03/16/17 08:40; Admin Dose 2.5 MG; Start 03/11/17 at 21:00 Atorvastatin Calcium (Lipitor) 20 mg QHS PO Last administered on 03/15/17 20: 23; Admin Dose 20 MG; Start 03/11/17 at 21:00 Escitalopram Oxalate (Lexapro) 10 mg DAILY PO Last administered on 03/16/17 08:41; Admin Dose 10 MG; Start 03/12/17 at 09:00 Furosemide (Lasix) 40 mg BID@06,18 PO Last administered on 03/16/17 17:05; Admin Dose 40 MG; Start 03/11/17 at 18:00 Hydrocodone Bit/ Homatropine Methylb (Hycodan Liquid) 10 ml TID PO Last administered on 03/16/17 13:34; Admin Dose 10 ML; Start 03/11/17 at 21:00 Morphine Sulfate (Ms Contin (Er)) 15 mg BID PO Last administered on 03/16/17 08:41; Admin Dose 15 MG; Start 03/11/17 at 21:00 Pantoprazole (Protonix Tab) 40 mg DAILY@06 PO Last administered on 03/16/17 05:56; Admin Dose 40 MG; Start 03/12/17 at 06:00 Potassium Chloride (Klor-Con 20) 20 meq BID PO Last administered on 03/16/17 08:41; Admin Dose 20 MEQ; Start 03/11/17 at 21:00 Senna (Senokot) 1 tab DAILY PRN PO CONSTIPATION; Start 03/11/17 at 14:30 Non-Formulary Medication 2 ea BID NASAL Last administered on 03/16/17 17:05; Admin Dose 2 EA; Start 03/11/17 at 15:31 LUBA EARLY Mar 16, 2017 19:45
[2017-03-16] MEDS: ATORVASTATIN 20 MG TAB PO SCH (20:42)
[2017-03-17] VITALS (16 sets, daily range): BP systolic 107–165; BP diastolic 67–89; PULSE 87–114; RESP 18–21
[2017-03-17] MEDS: morphine 2 MG INJ IV PRN (00:14)
[2017-03-17] MEDS: PANTOPRAZOLE (EC) 40 MG TAB PO SCH (06:32)
[2017-03-17] MEDS: LEVOTHYROXINE 75 MCG TAB PO SCH (06:32)
[2017-03-17] MEDS: FUROSEMIDE 40 MG TAB PO SCH ×2 (06:33→17:18)
[2017-03-17] MEDS: HYDROCODONE/HOMATROPINE 5ML CUP PO SCH ×3 (08:23→20:43)
[2017-03-17] MEDS: POTASSIUM CHLORIDE (SR) 20 MEQ TAB PO SCH ×2 (08:24→20:43)
[2017-03-17] MEDS: FAMOTIDINE 20 MG TAB PO SCH ×2 (08:24→20:42)
[2017-03-17] MEDS: morphine (ER) 15 MG TAB PO SCH ×2 (08:24→20:43)
[2017-03-17] MEDS: APIXABAN 5 MG TABLET PO SCH ×2 (08:24→20:42)
[2017-03-17] MEDS: DRONABINOL 2.5 MG CAP PO SCH ×3 (08:24→17:18)
[2017-03-17] MEDS: ESCITALOPRAM 10 MG TAB PO SCH (08:24)
[2017-03-17] MEDS: SPECIAL NON-STANDARD MEDICATION (BULK) NASAL SCH ×2 (08:25→17:18)
[2017-03-17] MEDS: ONDANSETRON 4 MG INJ IV PRN (13:01)
--- NOTE | 2017-03-17 16:08 | CONS ---
Date/Time of Note Date/Time of Note DATE: 03/17/17 TIME: 16:04 Consult Date/Type/Reason Admit Date/Time Mar 10, 2017 at 23:35 Initial Consult Date Type of Consultation: Pulm Ordering Provider: MARYAM FARMER MD Subjective No events. Objective Vital Signs Date Time Temp Pulse Resp B/P Pulse Ox O2 Delivery O2 Flow Rate FiO2 03/17/17 12:04 87 03/17/17 11:17 98.7 19 129/68 97 03/17/17 07:45 Nasal Cannula 5.0 03/17/17 03:56 40 Intake and Output 03/16/17 03/16/17 03/17/17 15:00 23:00 07:00 Intake Total 1300 ml 520 ml Balance 1300 ml 520 ml Exam HEENT: Neck supple; no JVD; no LAD CVS: RRR, S1 and S2 CHEST: Absent right sided BS ABD: Soft, NT, + BS EXT: No c/c; + edema Results/Medications Result Diagram: 03/16/17 0702 03/17/17 0740 Results 24 hrs Laboratory Tests Test 03/17/17 07:40 Sodium Level 141 Potassium Level 3.7 Chloride Level 94 L Carbon Dioxide Level 38 H Anion Gap 13 Blood Urea Nitrogen 14 Creatinine 1.14 Glucose Level 95 Calcium Level 8.7 Medications Current Medications Ondansetron HCl (Zofran Inj) 4 mg Q6H PRN IV NAUSEA AND/OR VOMITING Last administered on 03/17/17 13:01; Admin Dose 4 MG; Start 03/11/17 at 12:30 Acetaminophen (Tylenol Tab) 650 mg Q6H PRN PO PAIN LEVEL 1-3 OR FEVER Last administered on 03/11/17 14:17; Admin Dose 650 MG; Start 03/11/17 at 12:30 Morphine Sulfate (morphine) 2 mg Q4H PRN IV PAIN LEVEL 7-10 Last administered on 03/17/17 00:14; Admin Dose 2 MG; Start 03/11/17 at 12:30 Famotidine (Pepcid) 20 mg BID PO Last administered on 03/17/17 08:24; Admin Dose 20 MG; Start 03/11/17 at 21:00 Apixaban (Eliquis) 2.5 mg BID PO Last administered on 03/17/17 08:24; Admin Dose 2.5 MG; Start 03/11/17 at 21:00 Atorvastatin Calcium (Lipitor) 20 mg QHS PO Last administered on 03/16/17 20: 42; Admin Dose 20 MG; Start 03/11/17 at 21:00 Escitalopram Oxalate (Lexapro) 10 mg DAILY PO Last administered on 03/17/17 08:24; Admin Dose 10 MG; Start 03/12/17 at 09:00 Furosemide (Lasix) 40 mg BID@06,18 PO Last administered on 03/17/17 06:33; Admin Dose 40 MG; Start 03/11/17 at 18:00 Hydrocodone Bit/ Homatropine Methylb (Hycodan Liquid) 10 ml TID PO Last administered on 03/17/17 13:02; Admin Dose 10 ML; Start 03/11/17 at 21:00 Morphine Sulfate (Ms Contin (Er)) 15 mg BID PO Last administered on 03/17/17 08:24; Admin Dose 15 MG; Start 03/11/17 at 21:00 Pantoprazole (Protonix Tab) 40 mg DAILY@06 PO Last administered on 03/17/17 06:32; Admin Dose 40 MG; Start 03/12/17 at 06:00 Potassium Chloride (Klor-Con 20) 20 meq BID PO Last administered on 03/17/17 08:24; Admin Dose 20 MEQ; Start 03/11/17 at 21:00 Senna (Senokot) 1 tab DAILY PRN PO CONSTIPATION; Start 03/11/17 at 14:30 Non-Formulary Medication 2 ea BID NASAL Last administered on 03/17/17 08:25; Admin Dose 2 EA; Start 03/11/17 at 15:31 Assessment/Plan Additional Assessment/Plan IMP: 1. Chronic hypercapnic and hypoxemic resp insufficiency--due to metastatic lung cancer, right lung atx and effusion 2. Underlying COPD. 3. Left upper extremity DVT RECS: 1. Clarification of goals of care is essential in this patient given overall prognosis ELIZABETH VALENZUELA MD Mar 17, 2017 16:08
[2017-03-17] MEDS: SENNA TAB PO PRN (17:18)
--- NOTE | 2017-03-17 17:23 | PN ---
Date/Time of Note Date/Time of Note DATE: 03/17/17 TIME: 17:18 Assessment/Plan VTE Prophylaxis VTE Prophylaxis Intervention: other Lines/Catheters [facility] Saline Lock Urinary Cath still in place: No Assessment/Plan Assessment/Plan - hyponatremia- per nepphrology - Hypercapnic respiratory failure due to advanced lung malignancy with almost complete whiteout of the right lung. Dr. Philip is following in pulmonology consultation - Advanced non-small cell lung CA, Dr. Scanlon is following in oncology consultation. - Nonocclusive deep venous thrombosis bilateral upper extremities. Continue Eliquis. - Acute on chronic diastolic congestive heart failure, continue gentle diuresis , continue to monitor electrolytes. - h/o fungal pneumonia, on maintenance voriconazole - CAD, continue aspirin. - Hyperlipidemia, continue statin - Hypothyroidism, continue levothyroxine. - Paroxysmal atrial fibrillation, controlled rate, patient is continued on Eliquis. - COPD - Obesity with BMI 42 - Status post treatment for postobstructive pneumonia and paronychia Further recommendations based on clinical course. Plan of care discussed with Dr. Lincoln. Subjective 24 Hr Interval Summary Respiratory: shortness of breath Cardiovascular: no complaints Gastrointestinal: no complaints Genitourinary: no complaints Musculoskeletal: no complaints Exam/Review of Systems Vital Signs Vitals Vital Signs Date Time Temp Pulse Resp B/P Pulse Ox O2 Delivery O2 Flow Rate FiO2 03/17/17 16:19 5.0 03/17/17 16:04 99.1 102 20 107/78 98 03/17/17 07:45 Nasal Cannula 03/17/17 03:56 40 Intake and Output 03/16/17 03/16/17 03/17/17 15:00 23:00 07:00 Intake Total 1300 ml 520 ml Balance 1300 ml 520 ml Exam Constitutional: alert, obese Respiratory: diminished breath sounds Cardiovascular: nl pulses, regular rate and rhythm Gastrointestinal: non-tender, soft Musculoskeletal: nl extremities to inspection Extremities: normal pulses Neurological: nl speech Results Result Diagram: 03/16/17 0702 03/17/17 0740 Results 24 hrs Laboratory Tests Test 03/17/17 07:40 Sodium Level 141 Potassium Level 3.7 Chloride Level 94 L Carbon Dioxide Level 38 H Anion Gap 13 Blood Urea Nitrogen 14 Creatinine 1.14 Glucose Level 95 Calcium Level 8.7 Medications Medications Current Medications Ondansetron HCl (Zofran Inj) 4 mg Q6H PRN IV NAUSEA AND/OR VOMITING Last administered on 03/17/17 13:01; Admin Dose 4 MG; Start 03/11/17 at 12:30 Acetaminophen (Tylenol Tab) 650 mg Q6H PRN PO PAIN LEVEL 1-3 OR FEVER Last administered on 03/11/17 14:17; Admin Dose 650 MG; Start 03/11/17 at 12:30 Morphine Sulfate (morphine) 2 mg Q4H PRN IV PAIN LEVEL 7-10 Last administered on 03/17/17 00:14; Admin Dose 2 MG; Start 03/11/17 at 12:30 Famotidine (Pepcid) 20 mg BID PO Last administered on 03/17/17 08:24; Admin Dose 20 MG; Start 03/11/17 at 21:00 Apixaban (Eliquis) 2.5 mg BID PO Last administered on 03/17/17 08:24; Admin Dose 2.5 MG; Start 03/11/17 at 21:00 Atorvastatin Calcium (Lipitor) 20 mg QHS PO Last administered on 03/16/17 20: 42; Admin Dose 20 MG; Start 03/11/17 at 21:00 Escitalopram Oxalate (Lexapro) 10 mg DAILY PO Last administered on 03/17/17 08:24; Admin Dose 10 MG; Start 03/12/17 at 09:00 Furosemide (Lasix) 40 mg BID@06,18 PO Last administered on 03/17/17 06:33; Admin Dose 40 MG; Start 03/11/17 at 18:00 Hydrocodone Bit/ Homatropine Methylb (Hycodan Liquid) 10 ml TID PO Last administered on 03/17/17 13:02; Admin Dose 10 ML; Start 03/11/17 at 21:00 Morphine Sulfate (Ms Contin (Er)) 15 mg BID PO Last administered on 03/17/17 08:24; Admin Dose 15 MG; Start 03/11/17 at 21:00 Pantoprazole (Protonix Tab) 40 mg DAILY@06 PO Last administered on 03/17/17 06:32; Admin Dose 40 MG; Start 03/12/17 at 06:00 Potassium Chloride (Klor-Con 20) 20 meq BID PO Last administered on 03/17/17 08:24; Admin Dose 20 MEQ; Start 03/11/17 at 21:00 Senna (Senokot) 1 tab DAILY PRN PO CONSTIPATION; Start 03/11/17 at 14:30 Non-Formulary Medication 2 ea BID NASAL Last administered on 03/17/17 08:25; Admin Dose 2 EA; Start 03/11/17 at 15:31 TRAMAINE ELLSWORTH Mar 17, 2017 17:23
[2017-03-17] MEDS: ATORVASTATIN 20 MG TAB PO SCH (20:42)
--- NOTE | 2017-03-17 23:09 | CONS ---
Date/Time of Note Date/Time of Note DATE: 03/17/17 TIME: 23:09 Assessment/Plan Assessment/Plan Chief Complaint/Hosp Course Lung cancer with ongoing chemotherapy. chemo on hold lung cancer relatively controlled based on recent CTs will try to d/w situation with SEVERE DECONDITIONING, POOR RS OVERALL PROGNOSIS- POOR Leukocytosis. Anemia. Thrombocytopenia-stable, cont to monitor DVT-RUE on eliquis Chest pain. Abnormal electrocardiogram with nonspecific ST and T-wave abnormalities Bradycardia, transient while on beta matthew. Hypotension-improved Shortness of [id number] PNA Renal failure-ongoing s CHF-worsening edema Problems: Consultation Date/Type/Reason Admit Date/Time Mar 10, 2017 at 23:35 Type of Consultation: hemeon Referring Provider: MARYAM FARMER MD 24 HR Interval Summary Free Text/Dictation ALL NOTED Exam/Review of Systems Vital Signs Vitals Vital Signs Date Time Temp Pulse Resp B/P Pulse Ox O2 Delivery O2 Flow Rate FiO2 03/17/17 20:40 Nasal Cannula 5.0 03/17/17 20:12 104 03/17/17 19:59 98.7 21 122/67 98 03/17/17 03:56 40 Intake and Output 03/16/17 03/16/17 03/17/17 15:00 23:00 07:00 Intake Total 1300 ml 520 ml Balance 1300 ml 520 ml Exam Constitutional: alert, oriented Head: normocephalic Neck: supple Respiratory: diminished breath sounds Cardiovascular: nl pulses Gastrointestinal: soft Extremities: edema Results Result Diagram: 03/16/17 0702 03/17/17 0740 Results 24 hrs Laboratory Tests Test 03/17/17 07:40 Sodium Level 141 Potassium Level 3.7 Chloride Level 94 L Carbon Dioxide Level 38 H Anion Gap 13 Blood Urea Nitrogen 14 Creatinine 1.14 Glucose Level 95 Calcium Level 8.7 Medications Medications Current Medications Ondansetron HCl (Zofran Inj) 4 mg Q6H PRN IV NAUSEA AND/OR VOMITING Last administered on 03/17/17 13:01; Admin Dose 4 MG; Start 03/11/17 at 12:30 Acetaminophen (Tylenol Tab) 650 mg Q6H PRN PO PAIN LEVEL 1-3 OR FEVER Last administered on 03/11/17 14:17; Admin Dose 650 MG; Start 03/11/17 at 12:30 Morphine Sulfate (morphine) 2 mg Q4H PRN IV PAIN LEVEL 7-10 Last administered on 03/17/17 00:14; Admin Dose 2 MG; Start 03/11/17 at 12:30 Famotidine (Pepcid) 20 mg BID PO Last administered on 03/17/17 20:42; Admin Dose 20 MG; Start 03/11/17 at 21:00 Apixaban (Eliquis) 2.5 mg BID PO Last administered on 03/17/17 20:42; Admin Dose 2.5 MG; Start 03/11/17 at 21:00 Atorvastatin Calcium (Lipitor) 20 mg QHS PO Last administered on 03/17/17 20: 42; Admin Dose 20 MG; Start 03/11/17 at 21:00 Escitalopram Oxalate (Lexapro) 10 mg DAILY PO Last administered on 03/17/17 08:24; Admin Dose 10 MG; Start 03/12/17 at 09:00 Furosemide (Lasix) 40 mg BID@06,18 PO Last administered on 03/17/17 17:18; Admin Dose 40 MG; Start 03/11/17 at 18:00 Hydrocodone Bit/ Homatropine Methylb (Hycodan Liquid) 10 ml TID PO Last administered on 03/17/17 20:43; Admin Dose 10 ML; Start 03/11/17 at 21:00 Morphine Sulfate (Ms Contin (Er)) 15 mg BID PO Last administered on 03/17/17 20:43; Admin Dose 15 MG; Start 03/11/17 at 21:00 Pantoprazole (Protonix Tab) 40 mg DAILY@06 PO Last administered on 03/17/17 06:32; Admin Dose 40 MG; Start 03/12/17 at 06:00 Potassium Chloride (Klor-Con 20) 20 meq BID PO Last administered on 03/17/17 20:43; Admin Dose 20 MEQ; Start 03/11/17 at 21:00 Senna (Senokot) 1 tab DAILY PRN PO CONSTIPATION Last administered on 17:18; Admin Dose 1 TAB; Start 03/11/17 at 14:30 Non-Formulary Medication 2 ea BID NASAL Last administered on 03/17/17 17:18; Admin Dose 2 EA; Start 03/11/17 at 15:31 DAHIANA BABCOCK MD Mar 17, 2017 23:09
[2017-03-18] VITALS (14 sets, daily range): BP systolic 110–153; BP diastolic 55–77; PULSE 65–106; RESP 18–21
[2017-03-18] MEDS: morphine 2 MG INJ IV PRN ×3 (00:08→10:49)
[2017-03-18] MEDS: ALBUTEROL/IPRATROPIUM (NEB) 3 ML AMP HHN PRN (00:32)
[2017-03-18] MEDS: LEVOTHYROXINE 75 MCG TAB PO SCH ×2 (06:24→08:29)
[2017-03-18] MEDS: PANTOPRAZOLE (EC) 40 MG TAB PO SCH (06:24)
[2017-03-18] MEDS: FUROSEMIDE 40 MG TAB PO SCH ×2 (06:25→18:21)
[2017-03-18] MEDS: DRONABINOL 2.5 MG CAP PO SCH ×3 (07:36→18:20)
[2017-03-18] MEDS: FAMOTIDINE 20 MG TAB PO SCH ×2 (08:29→23:50)
[2017-03-18] MEDS: morphine (ER) 15 MG TAB PO SCH ×2 (08:29→23:50)
[2017-03-18] MEDS: POTASSIUM CHLORIDE (SR) 20 MEQ TAB PO SCH ×2 (08:29→23:50)
[2017-03-18] MEDS: SPECIAL NON-STANDARD MEDICATION (BULK) NASAL SCH ×2 (08:29→23:50)
[2017-03-18] MEDS: HYDROCODONE/HOMATROPINE 5ML CUP PO SCH ×3 (08:29→23:50)
[2017-03-18] MEDS: ESCITALOPRAM 10 MG TAB PO SCH (08:29)
[2017-03-18] MEDS: APIXABAN 5 MG TABLET PO SCH ×2 (08:30→23:50)
[2017-03-18] MEDS: morphine 4 MG/ML VIAL IV PRN ×3 (11:18→18:21)
[2017-03-18] MEDS: ONDANSETRON 4 MG INJ IV PRN (12:41)
--- NOTE | 2017-03-18 15:18 | CONS ---
Date/Time of Note Date/Time of Note DATE: 03/18/17 TIME: 15:16 Consult Date/Type/Reason Admit Date/Time Mar 10, 2017 at 23:35 Type of Consultation: Pulm Ordering Provider: MARYAM FARMER MD Subjective No events. Remains on oxygen and appears dyspneic Objective Vital Signs Date Time Temp Pulse Resp B/P Pulse Ox O2 Delivery O2 Flow Rate FiO2 03/18/17 12:36 98.0 72 18 134/64 98 03/18/17 08:00 Nasal Cannula 5.0 03/18/17 05:37 40 Intake and Output 03/17/17 03/17/17 03/18/17 15:00 23:00 07:00 Intake Total 750 ml 600 ml Balance 750 ml 600 ml Exam HEENT: Neck supple; no JVD; no LAD CVS: RRR, S1 and S2 CHEST: Absent right sided BS ABD: Soft, NT, + BS EXT: No c/c; + edema Results/Medications Result Diagram: 03/18/17 0811 03/18/17 0811 Results 24 hrs Laboratory Tests Test 03/18/17 08:11 White Blood Count 5.2 Red Blood Count 3.36 L Hemoglobin 10.3 L Hematocrit 33.8 L Mean Corpuscular Volume 100.6 Mean Corpuscular Hemoglobin 30.7 Mean Corpuscular Hemoglobin Concent 30.5 L Red Cell Distribution Width 13.4 Platelet Count 159 # Mean Platelet Volume 11.1 H Neutrophils % 66.9 Lymphocytes % 17.4 Monocytes % 12.0 H Eosinophils % 2.9 Basophils % 0.6 Nucleated Red Blood Cells % 0.0 Neutrophils # 3.5 Lymphocytes # 0.9 Monocytes # 0.6 Eosinophils # 0.2 Basophils # 0.0 Nucleated Red Blood Cells # 0.0 Sodium Level 140 Potassium Level 3.5 Chloride Level 92 L Carbon Dioxide Level 36 H Anion Gap 16 Blood Urea Nitrogen 17 Creatinine 1.23 Glucose Level 95 Calcium Level 8.5 Medications Current Medications Ondansetron HCl (Zofran Inj) 4 mg Q6H PRN IV NAUSEA AND/OR VOMITING Last administered on 03/18/17 12:41; Admin Dose 4 MG; Start 03/11/17 at 12:30 Acetaminophen (Tylenol Tab) 650 mg Q6H PRN PO PAIN LEVEL 1-3 OR FEVER Last administered on 03/11/17 14:17; Admin Dose 650 MG; Start 03/11/17 at 12:30 Famotidine (Pepcid) 20 mg BID PO Last administered on 03/18/17 08:29; Admin Dose 20 MG; Start 03/11/17 at 21:00 Apixaban (Eliquis) 2.5 mg BID PO Last administered on 03/18/17 08:30; Admin Dose 2.5 MG; Start 03/11/17 at 21:00 Atorvastatin Calcium (Lipitor) 20 mg QHS PO Last administered on 03/17/17 20: 42; Admin Dose 20 MG; Start 03/11/17 at 21:00 Escitalopram Oxalate (Lexapro) 10 mg DAILY PO Last administered on 03/18/17 08:29; Admin Dose 10 MG; Start 03/12/17 at 09:00 Furosemide (Lasix) 40 mg BID@06,18 PO Last administered on 03/18/17 06:25; Admin Dose 40 MG; Start 03/11/17 at 18:00 Hydrocodone Bit/ Homatropine Methylb (Hycodan Liquid) 10 ml TID PO Last administered on 03/18/17 12:32; Admin Dose 10 ML; Start 03/11/17 at 21:00 Morphine Sulfate (Ms Contin (Er)) 15 mg BID PO Last administered on 03/18/17 08:29; Admin Dose 15 MG; Start 03/11/17 at 21:00 Pantoprazole (Protonix Tab) 40 mg DAILY@06 PO Last administered on 03/18/17 06:24; Admin Dose 40 MG; Start 03/12/17 at 06:00 Potassium Chloride (Klor-Con 20) 20 meq BID PO Last administered on 03/18/17 08:29; Admin Dose 20 MEQ; Start 03/11/17 at 21:00 Senna (Senokot) 1 tab DAILY PRN PO CONSTIPATION Last administered on 17:18; Admin Dose 1 TAB; Start 03/11/17 at 14:30 Non-Formulary Medication 2 ea BID NASAL Last administered on 03/18/17 08:29; Admin Dose 2 EA; Start 03/11/17 at 15:31 Morphine Sulfate (morphine) 4 mg Q4H PRN IV PAIN LEVEL 7-10 Last administered on 10/22/17at 14:45; Admin Dose 4 MG; Start 03/18/17 at 11:11 Assessment/Plan Additional Assessment/Plan IMP: 1. Chronic hypercapnic and hypoxemic resp insufficiency--due to metastatic lung cancer, right lung atx and effusion 2. Underlying COPD. 3. Left upper extremity DVT RECS: 1. Would defer goals of care discussion to Oncology. 2. Continue BD's/CPT/Abx ELIZABETH VALENZUELA MD Mar 18, 2017 15:18
--- NOTE | 2017-03-18 19:13 | PN ---
Date/Time of Note Date/Time of Note DATE: 03/18/17 TIME: 19:12 Assessment/Plan Lines/Catheters IV C[facility]ter Type (from [facility]): Saline Lock Urinary Cath still in place: No Assessment/Plan Assessment/Plan - hyponatremia- per nepphrology - Hypercapnic respiratory failure due to advanced lung malignancy with almost complete whiteout of the right lung. Dr. Philip is following in pulmonology consultation - Advanced non-small cell lung CA, Dr. Scanlon is following in oncology consultation. - Nonocclusive deep venous thrombosis bilateral upper extremities. Continue Eliquis. - Acute on chronic diastolic congestive heart failure, continue gentle diuresis , continue to monitor electrolytes. - h/o fungal pneumonia, on maintenance voriconazole - CAD, continue aspirin. - Hyperlipidemia, continue statin - Hypothyroidism, continue levothyroxine. - Paroxysmal atrial fibrillation, controlled rate, patient is continued on Eliquis. - COPD - Obesity with BMI 42 - Status post treatment for postobstructive pneumonia and paronychia Further recommendations based on clinical course. Plan of care discussed with Dr. Lincoln. Subjective 24 Hr Interval Summary Free Text/Dictation pTIENT SEEN AT 1730 Constitutional: requiring O2 Cardiovascular: no complaints Gastrointestinal: no complaints Genitourinary: no complaints Musculoskeletal: no complaints Neurologic: no complaints Exam/Review of Systems Vital Signs Vitals Vital Signs Date Time Temp Pulse Resp B/P Pulse Ox O2 Delivery O2 Flow Rate FiO2 03/18/17 16:30 98.0 98 18 132/61 98 03/18/17 16:17 5.0 03/18/17 08:00 Nasal Cannula 03/18/17 05:37 40 Intake and Output 03/17/17 03/17/17 03/18/17 15:00 23:00 07:00 Intake Total 750 ml 600 ml Balance 750 ml 600 ml Exam Constitutional: alert, obese, oriented Neck: thyromegaly Cardiovascular: nl pulses Gastrointestinal: non-tender, soft Musculoskeletal: nl extremities to inspection Extremities: edema Neurological: nl mental status, nl speech Results Result Diagram: 03/18/17 0811 03/18/17 0811 Results 24 hrs Laboratory Tests Test 03/18/17 08:11 White Blood Count 5.2 Red Blood Count 3.36 L Hemoglobin 10.3 L Hematocrit 33.8 L Mean Corpuscular Volume 100.6 Mean Corpuscular Hemoglobin 30.7 Mean Corpuscular Hemoglobin Concent 30.5 L Red Cell Distribution Width 13.4 Platelet Count 159 # Mean Platelet Volume 11.1 H Neutrophils % 66.9 Lymphocytes % 17.4 Monocytes % 12.0 H Eosinophils % 2.9 Basophils % 0.6 Nucleated Red Blood Cells % 0.0 Neutrophils # 3.5 Lymphocytes # 0.9 Monocytes # 0.6 Eosinophils # 0.2 Basophils # 0.0 Nucleated Red Blood Cells # 0.0 Sodium Level 140 Potassium Level 3.5 Chloride Level 92 L Carbon Dioxide Level 36 H Anion Gap 16 Blood Urea Nitrogen 17 Creatinine 1.23 Glucose Level 95 Calcium Level 8.5 Medications Medications Current Medications Ondansetron HCl (Zofran Inj) 4 mg Q6H PRN IV NAUSEA AND/OR VOMITING Last administered on 03/18/17 12:41; Admin Dose 4 MG; Start 03/11/17 at 12:30 Acetaminophen (Tylenol Tab) 650 mg Q6H PRN PO PAIN LEVEL 1-3 OR FEVER Last administered on 03/11/17 14:17; Admin Dose 650 MG; Start 03/11/17 at 12:30 Famotidine (Pepcid) 20 mg BID PO Last administered on 03/18/17 08:29; Admin Dose 20 MG; Start 03/11/17 at 21:00 Apixaban (Eliquis) 2.5 mg BID PO Last administered on 03/18/17 08:30; Admin Dose 2.5 MG; Start 03/11/17 at 21:00 Atorvastatin Calcium (Lipitor) 20 mg QHS PO Last administered on 03/17/17 20: 42; Admin Dose 20 MG; Start 03/11/17 at 21:00 Escitalopram Oxalate (Lexapro) 10 mg DAILY PO Last administered on 03/18/17 08:29; Admin Dose 10 MG; Start 03/12/17 at 09:00 Furosemide (Lasix) 40 mg BID@,18 PO Last administered on 03/18/17 18:21; Admin Dose 40 MG; Start 03/11/17 at 18:00 Hydrocodone Bit/ Homatropine Methylb (Hycodan Liquid) 10 ml TID PO Last administered on 03/18/17 12:32; Admin Dose 10 ML; Start 03/11/17 at 21:00 Morphine Sulfate (Ms Contin (Er)) 15 mg BID PO Last administered on 03/18/17 08:29; Admin Dose 15 MG; Start 03/11/17 at 21:00 Pantoprazole (Protonix Tab) 40 mg DAILY@06 PO Last administered on 03/18/17 06:24; Admin Dose 40 MG; Start 03/12/17 at 06:00 Potassium Chloride (Klor-Con 20) 20 meq BID PO Last administered on 03/18/17 08:29; Admin Dose 20 MEQ; Start 03/11/17 at 21:00 Senna (Senokot) 1 tab DAILY PRN PO CONSTIPATION Last administered on 17:18; Admin Dose 1 TAB; Start 03/11/17 at 14:30 Non-Formulary Medication 2 ea BID NASAL Last administered on 03/18/17 08:29; Admin Dose 2 EA; Start 03/11/17 at 15:31 Morphine Sulfate (morphine) 4 mg Q4H PRN IV PAIN LEVEL 7-10 Last administered on 03/18/17 18:21; Admin Dose 4 MG; Start 03/18/17 at 11:11 TRAMAINE ELLSWORTH Mar 18, 2017 19:13
--- NOTE | 2017-03-18 22:58 | CONS ---
Date/Time of Note Date/Time of Note DATE: 03/18/17 TIME: 22:58 Assessment/Plan Assessment/Plan Chief Complaint/Hosp Course Lung cancer with ongoing chemotherapy. chemo on hold lung cancer relatively controlled based on recent CTs will try to d/w situation with SEVERE DECONDITIONING, POOR RS OVERALL PROGNOSIS- POOR Leukocytosis. Anemia. Thrombocytopenia-stable, cont to monitor DVT-RUE on eliquis Chest pain. Abnormal electrocardiogram with nonspecific ST and T-wave abnormalities Bradycardia, transient while on beta matthew. Hypotension-improved Shortness of [id number] PNA Renal failure-ongoing s CHF-worsening edema Problems: Consultation Date/Type/Reason Admit Date/Time Mar 10, 2017 at 23:35 Type of Consultation: hemeon Referring Provider: MARYAM FARMER MD 24 HR Interval Summary Free Text/Dictation ALL NOTED Exam/Review of Systems Vital Signs Vitals Vital Signs Date Time Temp Pulse Resp B/P Pulse Ox O2 Delivery O2 Flow Rate FiO2 03/18/17 20:15 95 03/18/17 19:51 98.0 20 153/64 96 03/18/17 16:17 5.0 03/18/17 08:00 Nasal Cannula 03/18/17 05:37 40 Intake and Output 03/17/17 03/17/17 03/18/17 15:00 23:00 07:00 Intake Total 750 ml 600 ml Balance 750 ml 600 ml Exam Constitutional: alert, oriented Head: normocephalic Neck: supple Respiratory: diminished breath sounds Cardiovascular: nl pulses Gastrointestinal: soft Extremities: edema Results Result Diagram: 03/18/17 0811 03/18/17 0811 Results 24 hrs Laboratory Tests Test 03/18/17 08:11 White Blood Count 5.2 Red Blood Count 3.36 L Hemoglobin 10.3 L Hematocrit 33.8 L Mean Corpuscular Volume 100.6 Mean Corpuscular Hemoglobin 30.7 Mean Corpuscular Hemoglobin Concent 30.5 L Red Cell Distribution Width 13.4 Platelet Count 159 # Mean Platelet Volume 11.1 H Neutrophils % 66.9 Lymphocytes % 17.4 Monocytes % 12.0 H Eosinophils % 2.9 Basophils % 0.6 Nucleated Red Blood Cells % 0.0 Neutrophils # 3.5 Lymphocytes # 0.9 Monocytes # 0.6 Eosinophils # 0.2 Basophils # 0.0 Nucleated Red Blood Cells # 0.0 Sodium Level 140 Potassium Level 3.5 Chloride Level 92 L Carbon Dioxide Level 36 H Anion Gap 16 Blood Urea Nitrogen 17 Creatinine 1.23 Glucose Level 95 Calcium Level 8.5 Medications Medications Current Medications Ondansetron HCl (Zofran Inj) 4 mg Q6H PRN IV NAUSEA AND/OR VOMITING Last administered on 03/18/17 12:41; Admin Dose 4 MG; Start 03/11/17 at 12:30 Acetaminophen (Tylenol Tab) 650 mg Q6H PRN PO PAIN LEVEL 1-3 OR FEVER Last administered on 03/11/17 14:17; Admin Dose 650 MG; Start 03/11/17 at 12:30 Famotidine (Pepcid) 20 mg BID PO Last administered on 03/18/17 08:29; Admin Dose 20 MG; Start 03/11/17 at 21:00 Apixaban (Eliquis) 2.5 mg BID PO Last administered on 03/18/17 08:30; Admin Dose 2.5 MG; Start 03/11/17 at 21:00 Atorvastatin Calcium (Lipitor) 20 mg QHS PO Last administered on 03/17/17 20: 42; Admin Dose 20 MG; Start 03/11/17 at 21:00 Escitalopram Oxalate (Lexapro) 10 mg DAILY PO Last administered on 03/18/17 08:29; Admin Dose 10 MG; Start 03/12/17 at 09:00 Furosemide (Lasix) 40 mg BID@06,18 PO Last administered on 03/18/17 18:21; Admin Dose 40 MG; Start 03/11/17 at 18:00 Hydrocodone Bit/ Homatropine Methylb (Hycodan Liquid) 10 ml TID PO Last administered on 03/18/17 12:32; Admin Dose 10 ML; Start 03/11/17 at 21:00 Morphine Sulfate (Ms Contin (Er)) 15 mg BID PO Last administered on 03/18/17 08:29; Admin Dose 15 MG; Start 03/11/17 at 21:00 Pantoprazole (Protonix Tab) 40 mg DAILY@06 PO Last administered on 03/18/17 06:24; Admin Dose 40 MG; Start 03/12/17 at 06:00 Potassium Chloride (Klor-Con 20) 20 meq BID PO Last administered on 03/18/17 08:29; Admin Dose 20 MEQ; Start 03/11/17 at 21:00 Senna (Senokot) 1 tab DAILY PRN PO CONSTIPATION Last administered on 17:18; Admin Dose 1 TAB; Start 03/11/17 at 14:30 Non-Formulary Medication 2 ea BID NASAL Last administered on 03/18/17 08:29; Admin Dose 2 EA; Start 03/11/17 at 15:31 Morphine Sulfate (morphine) 4 mg Q4H PRN IV PAIN LEVEL 7-10 Last administered on 03/18/17 18:21; Admin Dose 4 MG; Start 03/18/17 at 11:11 DAHIANA BABCOCK MD Mar 18, 2017 22:58
[2017-03-18] MEDS: ATORVASTATIN 20 MG TAB PO SCH (23:50)
[2017-03-19] VITALS (12 sets, daily range): BP systolic 112–138; BP diastolic 63–73; PULSE 19–92; RESP 16–21
[2017-03-19] MEDS: FUROSEMIDE 40 MG TAB PO SCH ×2 (06:18→17:32)
[2017-03-19] MEDS: PANTOPRAZOLE (EC) 40 MG TAB PO SCH (06:18)
[2017-03-19] MEDS: morphine (ER) 15 MG TAB PO SCH ×2 (08:28→21:07)
[2017-03-19] MEDS: DRONABINOL 2.5 MG CAP PO SCH ×3 (08:28→17:31)
[2017-03-19] MEDS: FAMOTIDINE 20 MG TAB PO SCH ×2 (08:29→21:07)
[2017-03-19] MEDS: ESCITALOPRAM 10 MG TAB PO SCH (08:29)
[2017-03-19] MEDS: APIXABAN 5 MG TABLET PO SCH ×2 (08:29→21:07)
[2017-03-19] MEDS: HYDROCODONE/HOMATROPINE 5ML CUP PO SCH ×3 (08:29→21:07)
[2017-03-19] MEDS: POTASSIUM CHLORIDE (SR) 20 MEQ TAB PO SCH ×2 (08:30→21:07)
[2017-03-19] MEDS: SPECIAL NON-STANDARD MEDICATION (BULK) NASAL SCH ×2 (08:31→21:08)
--- NOTE | 2017-03-19 14:32 | CONS ---
Date/Time of Note Date/Time of Note DATE: 03/19/17 TIME: 14:31 Consult Date/Type/Reason Admit Date/Time Mar 10, 2017 at 23:35 Initial Consult Date Type of Consultation: Pulmonary Ordering Provider: MARYAM FARMER MD Subjective Patient comfortable. Says he has baseline dyspnea. Unclear why he is still in the hospital. Objective Vital Signs Date Time Temp Pulse Resp B/P Pulse Ox O2 Delivery O2 Flow Rate FiO2 03/19/17 12:00 91 03/19/17 11:31 98.5 18 112/67 97 03/19/17 08:00 Nasal Cannula 3.0 03/18/17 05:37 40 Intake and Output 03/18/17 03/18/17 03/19/17 15:00 23:00 07:00 Intake Total 750 ml 360 ml Output Total 1200 ml Balance -450 ml 360 ml Exam GENERAL: Clinically ill-appearing gentleman on nasal cannula O2 VITAL SIGNS: per chart NECK: Supple. No JVD or lymphadenopathy. CARDIAC EXAM: S1, S2. No added sounds or murmurs. CHEST: Decreased air entry right lung. ABDOMEN: Soft, nontender. No guarding or rebound. EXTREMITIES: No cyanosis, clubbing or edema. NEUROLOGIC: Generalized weakness. No focal deficits. Results/Medications Result Diagram: 03/19/17 0711 03/19/17 0711 Results 24 hrs Laboratory Tests Test 03/19/17 07:11 White Blood Count 5.7 Red Blood Count 3.24 L Hemoglobin 10.6 L Hematocrit 32.8 L Mean Corpuscular Volume 101.2 H Mean Corpuscular Hemoglobin 32.7 Mean Corpuscular Hemoglobin Concent 32.3 Red Cell Distribution Width 13.4 Platelet Count 167 Mean Platelet Volume 11.4 H Neutrophils % 69.8 Lymphocytes % 16.1 Monocytes % 9.8 Eosinophils % 3.5 Basophils % 0.4 Nucleated Red Blood Cells % 0.0 Neutrophils # 4.0 Lymphocytes # 0.9 Monocytes # 0.6 Eosinophils # 0.2 Basophils # 0.0 Nucleated Red Blood Cells # 0.0 Sodium Level 140 Potassium Level 3.5 Chloride Level 93 L Carbon Dioxide Level 37 H Anion Gap 14 Blood Urea Nitrogen 18 Creatinine 1.27 H Glucose Level 100 Calcium Level 8.6 Medications Current Medications Ondansetron HCl (Zofran Inj) 4 mg Q6H PRN IV NAUSEA AND/OR VOMITING Last administered on 03/18/17 12:41; Admin Dose 4 MG; Start 03/11/17 at 12:30 Acetaminophen (Tylenol Tab) 650 mg Q6H PRN PO PAIN LEVEL 1-3 OR FEVER Last administered on 03/11/17 14:17; Admin Dose 650 MG; Start 03/11/17 at 12:30 Famotidine (Pepcid) 20 mg BID PO Last administered on 03/19/17 08:29; Admin Dose 20 MG; Start 03/11/17 at 21:00 Apixaban (Eliquis) 2.5 mg BID PO Last administered on 03/19/17 08:29; Admin Dose 2.5 MG; Start 03/11/17 at 21:00 Atorvastatin Calcium (Lipitor) 20 mg QHS PO Last administered on 03/17/17 20: 42; Admin Dose 20 MG; Start 03/11/17 at 21:00 Escitalopram Oxalate (Lexapro) 10 mg DAILY PO Last administered on 03/19/17 08:29; Admin Dose 10 MG; Start 03/12/17 at 09:00 Furosemide (Lasix) 40 mg BID@06,18 PO Last administered on 03/19/17 06:18; Admin Dose 40 MG; Start 03/11/17 at 18:00 Hydrocodone Bit/ Homatropine Methylb (Hycodan Liquid) 10 ml TID PO Last administered on 03/19/17 12:12; Admin Dose 10 ML; Start 03/11/17 at 21:00 Morphine Sulfate (Ms Contin (Er)) 15 mg BID PO Last administered on 03/19/17 08:28; Admin Dose 15 MG; Start 03/11/17 at 21:00 Pantoprazole (Protonix Tab) 40 mg DAILY@06 PO Last administered on 03/19/17 06:18; Admin Dose 40 MG; Start 03/12/17 at 06:00 Potassium Chloride (Klor-Con 20) 20 meq BID PO Last administered on 03/19/17 08:30; Admin Dose 20 MEQ; Start 03/11/17 at 21:00 Senna (Senokot) 1 tab DAILY PRN PO CONSTIPATION Last administered on 17:18; Admin Dose 1 TAB; Start 03/11/17 at 14:30 Non-Formulary Medication 2 ea BID NASAL Last administered on 03/19/17 08:31; Admin Dose 2 EA; Start 03/11/17 at 15:31 Morphine Sulfate (morphine) 4 mg Q4H PRN IV PAIN LEVEL 7-10 Last administered on 03/18/17 18:21; Admin Dose 4 MG; Start 03/18/17 at 11:11 Assessment/Plan Chief Complaint/Hosp Course IMP: 1. Chronic hypercapnic and hypoxemic resp insufficiency--due to metastatic lung cancer, right lung atx and effusion 2. Underlying COPD. 3. Left upper extremity DVT RECS: 1. Would defer goals of care discussion to Oncology. 2. Continue BD's/CPT/Abx 3. Patient is not a candidate for Pleurx catheter or decortication given advanced lung disease. We will discuss with primary care team and hematology oncology. Consider discharge before patient aquires nosocomial pneumonia. Problems: ABIODUN SCHULTZ MD, [facility] Mar 19, 2017 14:32
--- NOTE | 2017-03-19 16:00 | RADRPT ---
PROCEDURE: XR Thoracic Spine. CLINICAL INDICATION: Back pain. TECHNIQUE: Three views. Frontal, lateral, and lateral swimmers. COMPARISON: None available FINDINGS: There is normal stature and alignment of the vertebrae. There is no fracture. There is no lytic or blastic lesion. There are degenerative changes with osteophytes throughout. There is consolidation throughout the right upper lung zone. IMPRESSION: 1. Degenerative changes. 2. No acute abnormality. 3. Consolidation in the right upper lung zone. RPTAT: QQ .Los Stringer MD, MD Date Time Electronically viewed and signed by .Los Stringer MD, MD on 03/19/2017 16:00 .R/
[2017-03-19] MEDS: morphine 4 MG/ML VIAL IV PRN (17:39)
--- NOTE | 2017-03-19 18:58 | PN ---
Date/Time of Note Date/Time of Note DATE: 03/19/17 TIME: 18:57 Assessment/Plan VTE Prophylaxis VTE Prophylaxis Intervention: SCD's Lines/Catheters IV [facility] [place] Urinary Cath still in place: No Assessment/Plan Chief Complaint/Hosp Course Patient complains of shortness of breath on exertion, continue supplemental oxygen and BiPAP overnight. Case management for care home facility placement. Assessment/Plan - Hypercapnic respiratory failure due to advanced lung malignancy with almost complete whiteout of the right lung. Dr. Philip is following in pulmonology consultation - Advanced non-small cell lung CA, Dr. Scanlon is following in oncology consultation. - Nonocclusive deep venous thrombosis bilateral upper extremities. Continue Eliquis. - Acute on chronic diastolic congestive heart failure, continue gentle diuresis , continue to monitor electrolytes. - h/o fungal pneumonia, on maintenance voriconazole - CAD, continue aspirin. - Hyperlipidemia, continue statin - Hypothyroidism, continue levothyroxine. - Paroxysmal atrial fibrillation, controlled rate, patient is continued on Eliquis. - COPD - Obesity with BMI 42 - Status post treatment for postobstructive pneumonia and paronychia Further recommendations based on clinical course. Plan of care discussed with Dr. Lincoln. Problems: Exam/Review of Systems Vital Signs Vitals Vital Signs Date Time Temp Pulse Resp B/P Pulse Ox O2 Delivery O2 Flow Rate FiO2 03/19/17 16:14 98.6 89 18 131/63 98 03/19/17 16:11 5.0 03/19/17 08:00 Nasal Cannula 03/18/17 05:37 40 Intake and Output 03/18/17 03/18/17 03/19/17 15:00 23:00 07:00 Intake Total 750 ml 360 ml Output Total 1200 ml Balance -450 ml 360 ml Exam Constitutional: alert, oriented Head: normocephalic Neck: supple Respiratory: diminished breath sounds Cardiovascular: nl pulses Gastrointestinal: soft Extremities: edema Results Result Diagram: 03/19/1771003/19/17710 Results 24 hrs Laboratory Tests Test 03/19/17 07:11 White Blood Count 5.7 Red Blood Count 3.24 L Hemoglobin 10.6 L Hematocrit 32.8 L Mean Corpuscular Volume 101.2 H Mean Corpuscular Hemoglobin 32.7 Mean Corpuscular Hemoglobin Concent 32.3 Red Cell Distribution Width 13.4 Platelet Count 167 Mean Platelet Volume 11.4 H Neutrophils % 69.8 Lymphocytes % 16.1 Monocytes % 9.8 Eosinophils % 3.5 Basophils % 0.4 Nucleated Red Blood Cells % 0.0 Neutrophils # 4.0 Lymphocytes # 0.9 Monocytes # 0.6 Eosinophils # 0.2 Basophils # 0.0 Nucleated Red Blood Cells # 0.0 Sodium Level 140 Potassium Level 3.5 Chloride Level 93 L Carbon Dioxide Level 37 H Anion Gap 14 Blood Urea Nitrogen 18 Creatinine 1.27 H Glucose Level 100 Calcium Level 8.6 Medications Medications Current Medications Ondansetron HCl (Zofran Inj) 4 mg Q6H PRN IV NAUSEA AND/OR VOMITING Last administered on 03/18/17 12:41; Admin Dose 4 MG; Start 03/11/17 at 12:30 Acetaminophen (Tylenol Tab) 650 mg Q6H PRN PO PAIN LEVEL 1-3 OR FEVER Last administered on 03/11/17 14:17; Admin Dose 650 MG; Start 03/11/17 at 12:30 Famotidine (Pepcid) 20 mg BID PO Last administered on 03/19/17 08:29; Admin Dose 20 MG; Start 03/11/17 at 21:00 Apixaban (Eliquis) 2.5 mg BID PO Last administered on 03/19/17 08:29; Admin Dose 2.5 MG; Start 03/11/17 at 21:00 Atorvastatin Calcium (Lipitor) 20 mg QHS PO Last administered on 03/17/17 20: 42; Admin Dose 20 MG; Start 03/11/17 at 21:00 Escitalopram Oxalate (Lexapro) 10 mg DAILY PO Last administered on 03/19/17 08:29; Admin Dose 10 MG; Start 03/12/17 at 09:00 Furosemide (Lasix) 40 mg BID@,18 PO Last administered on 03/19/17 17:32; Admin Dose 40 MG; Start 03/11/17 at 18:00 Hydrocodone Bit/ Homatropine Methylb (Hycodan Liquid) 10 ml TID PO Last administered on 03/19/17 12:12; Admin Dose 10 ML; Start 03/11/17 at 21:00 Morphine Sulfate (Ms Contin (Er)) 15 mg BID PO Last administered on 03/19/17 08:28; Admin Dose 15 MG; Start 03/11/17 at 21:00 Pantoprazole (Protonix Tab) 40 mg DAILY@06 PO Last administered on 03/19/17 06:18; Admin Dose 40 MG; Start 03/12/17 at 06:00 Potassium Chloride (Klor-Con 20) 20 meq BID PO Last administered on 03/19/17 08:30; Admin Dose 20 MEQ; Start 03/11/17 at 21:00 Senna (Senokot) 1 tab DAILY PRN PO CONSTIPATION Last administered on 17:18; Admin Dose 1 TAB; Start 03/11/17 at 14:30 Non-Formulary Medication 2 ea BID NASAL Last administered on 03/19/17 08:31; Admin Dose 2 EA; Start 03/11/17 at 15:31 Morphine Sulfate (morphine) 4 mg Q4H PRN IV PAIN LEVEL 7-10 Last administered on 03/19/17 17:39; Admin Dose 4 MG; Start 03/18/17 at 11:11 LUBA EARLY Mar 19, 2017 18:58
--- NOTE | 2017-03-19 19:30 | CONS ---
Date/Time of Note Date/Time of Note DATE: 03/19/17 TIME: 19:30 Assessment/Plan Assessment/Plan Chief Complaint/Hosp Course Lung cancer with ongoing chemotherapy. chemo on hold lung cancer relatively controlled based on recent CTs will try to d/w situation with SEVERE DECONDITIONING, POOR RS OVERALL PROGNOSIS- POOR Leukocytosis. Anemia. Thrombocytopenia-stable, cont to monitor DVT-RUE on eliquis Chest pain. Abnormal electrocardiogram with nonspecific ST and T-wave abnormalities Bradycardia, transient while on beta matthew. Hypotension-improved Shortness of xzsuvx-[id number]-[id number] PNA Renal failure-ongoing s CHF-worsening edema Problems: Consultation Date/Type/Reason Admit Date/Time Mar 10, 2017 at 23:35 Type of Consultation: hemeon Referring Provider: MARYAM FARMER MD 24 HR Interval Summary Free Text/Dictation WEAK Exam/Review of Systems Vital Signs Vitals Vital Signs Date Time Temp Pulse Resp B/P Pulse Ox O2 Delivery O2 Flow Rate FiO2 03/19/17 16:14 98.6 89 18 131/63 98 03/19/17 16:11 5.0 03/19/17 08:00 Nasal Cannula 03/18/17 05:37 40 Intake and Output 03/18/17 03/18/17 03/19/17 15:00 23:00 07:00 Intake Total 750 ml 360 ml Output Total 1200 ml Balance -450 ml 360 ml Exam Constitutional: alert, oriented Head: normocephalic Neck: supple Respiratory: diminished breath sounds Cardiovascular: nl pulses Gastrointestinal: soft Extremities: edema Results Result Diagram: 03/19/17 0711 03/19/17 0711 Results 24 hrs Laboratory Tests Test 03/19/17 07:11 White Blood Count 5.7 Red Blood Count 3.24 L Hemoglobin 10.6 L Hematocrit 32.8 L Mean Corpuscular Volume 101.2 H Mean Corpuscular Hemoglobin 32.7 Mean Corpuscular Hemoglobin Concent 32.3 Red Cell Distribution Width 13.4 Platelet Count 167 Mean Platelet Volume 11.4 H Neutrophils % 69.8 Lymphocytes % 16.1 Monocytes % 9.8 Eosinophils % 3.5 Basophils % 0.4 Nucleated Red Blood Cells % 0.0 Neutrophils # 4.0 Lymphocytes # 0.9 Monocytes # 0.6 Eosinophils # 0.2 Basophils # 0.0 Nucleated Red Blood Cells # 0.0 Sodium Level 140 Potassium Level 3.5 Chloride Level 93 L Carbon Dioxide Level 37 H Anion Gap 14 Blood Urea Nitrogen 18 Creatinine 1.27 H Glucose Level 100 Calcium Level 8.6 Medications Medications Current Medications Ondansetron HCl (Zofran Inj) 4 mg Q6H PRN IV NAUSEA AND/OR VOMITING Last administered on 03/18/17 12:41; Admin Dose 4 MG; Start 03/11/17 at 12:30 Acetaminophen (Tylenol Tab) 650 mg Q6H PRN PO PAIN LEVEL 1-3 OR FEVER Last administered on 03/11/17 14:17; Admin Dose 650 MG; Start 03/11/17 at 12:30 Famotidine (Pepcid) 20 mg BID PO Last administered on 03/19/17 08:29; Admin Dose 20 MG; Start 03/11/17 at 21:00 Apixaban (Eliquis) 2.5 mg BID PO Last administered on 03/19/17 08:29; Admin Dose 2.5 MG; Start 03/11/17 at 21:00 Atorvastatin Calcium (Lipitor) 20 mg QHS PO Last administered on 03/17/17 20: 42; Admin Dose 20 MG; Start 03/11/17 at 21:00 Escitalopram Oxalate (Lexapro) 10 mg DAILY PO Last administered on 03/19/17 08:29; Admin Dose 10 MG; Start 03/12/17 at 09:00 Furosemide (Lasix) 40 mg BID@06,18 PO Last administered on 03/19/17 17:32; Admin Dose 40 MG; Start 03/11/17 at 18:00 Hydrocodone Bit/ Homatropine Methylb (Hycodan Liquid) 10 ml TID PO Last administered on 03/19/17 12:12; Admin Dose 10 ML; Start 03/11/17 at 21:00 Morphine Sulfate (Ms Contin (Er)) 15 mg BID PO Last administered on 03/19/17 08:28; Admin Dose 15 MG; Start 03/11/17 at 21:00 Pantoprazole (Protonix Tab) 40 mg DAILY@06 PO Last administered on 03/19/17 06:18; Admin Dose 40 MG; Start 03/12/17 at 06:00 Potassium Chloride (Klor-Con 20) 20 meq BID PO Last administered on 03/19/17 08:30; Admin Dose 20 MEQ; Start 03/11/17 at 21:00 Senna (Senokot) 1 tab DAILY PRN PO CONSTIPATION Last administered on 17:18; Admin Dose 1 TAB; Start 03/11/17 at 14:30 Non-Formulary Medication 2 ea BID NASAL Last administered on 03/19/17 08:31; Admin Dose 2 EA; Start 03/11/17 at 15:31 Morphine Sulfate (morphine) 4 mg Q4H PRN IV PAIN LEVEL 7-10 Last administered on 03/19/17 17:39; Admin Dose 4 MG; Start 03/18/17 at 11:11 DAHIANA BABCOCK MD Mar 19, 2017 19:30
[2017-03-19] MEDS: ATORVASTATIN 20 MG TAB PO SCH (21:07)
[2017-03-20] VITALS (13 sets, daily range): BP systolic 104–188; BP diastolic 58–78; PULSE 84–105; RESP 18
[2017-03-20] MEDS: LORAZEPAM 2 MG INJ IV PRN (00:50)
[2017-03-20] MEDS: hydrALAzine 20 MG INJ IV PRN ×2 (00:50→06:36)
[2017-03-20] MEDS: FUROSEMIDE 40 MG TAB PO SCH ×2 (06:31→17:21)
[2017-03-20] MEDS: LEVOTHYROXINE 75 MCG TAB PO SCH (06:31)
[2017-03-20] MEDS: PANTOPRAZOLE (EC) 40 MG TAB PO SCH (06:31)
[2017-03-20] MEDS: ESCITALOPRAM 10 MG TAB PO SCH (08:18)
[2017-03-20] MEDS: morphine (ER) 15 MG TAB PO SCH ×2 (08:18→20:18)
[2017-03-20] MEDS: DRONABINOL 2.5 MG CAP PO SCH ×3 (08:18→17:21)
[2017-03-20] MEDS: FAMOTIDINE 20 MG TAB PO SCH ×2 (08:18→20:18)
[2017-03-20] MEDS: HYDROCODONE/HOMATROPINE 5ML CUP PO SCH ×4 (08:18→20:17)
[2017-03-20] MEDS: POTASSIUM CHLORIDE (SR) 20 MEQ TAB PO SCH ×2 (08:18→20:18)
[2017-03-20] MEDS: APIXABAN 5 MG TABLET PO SCH ×2 (08:19→20:18)
[2017-03-20] MEDS: SPECIAL NON-STANDARD MEDICATION (BULK) NASAL SCH ×2 (08:19→21:00)
--- NOTE | 2017-03-20 14:46 | CONS ---
Date/Time of Note Date/Time of Note DATE: 03/20/17 TIME: 14:44 Consult Date/Type/Reason Admit Date/Time Mar 10, 2017 at 23:35 Type of Consultation: Pulmonary Ordering Provider: MARYAM FARMRE MD Subjective Patient remained stable with no new events. Objective Vital Signs Date Time Temp Pulse Resp B/P Pulse Ox O2 Delivery O2 Flow Rate FiO2 03/20/17 12:02 98.5 96 18 117/58 93 03/20/17 01:05 40 03/19/17 23:59 4.0 03/19/17 20:00 Nasal Cannula Intake and Output 03/19/17 03/19/17 03/20/17 15:00 23:00 07:00 Intake Total 400 ml Balance 400 ml Exam GENERAL: Clinically ill-appearing gentleman on nasal cannula O2 VITAL SIGNS: per chart NECK: Supple. No JVD or lymphadenopathy. CARDIAC EXAM: S1, S2. No added sounds or murmurs. CHEST: Decreased air entry right lung. ABDOMEN: Soft, nontender. No guarding or rebound. EXTREMITIES: No cyanosis, clubbing or edema. NEUROLOGIC: Generalized weakness. No focal deficits. Results/Medications Result Diagram: 03/20/1773003/20/17 0731 Results 24 hrs Laboratory Tests Test 03/20/17 07:31 White Blood Count 4.8 Red Blood Count 3.47 L Hemoglobin 11.1 L Hematocrit 34.9 L Mean Corpuscular Volume 100.6 Mean Corpuscular Hemoglobin 32.0 Mean Corpuscular Hemoglobin Concent 31.8 L Red Cell Distribution Width 13.2 Platelet Count 170 Mean Platelet Volume 11.5 H Neutrophils % 63.0 Lymphocytes % 21.5 Monocytes % 11.6 H Eosinophils % 3.1 Basophils % 0.6 Nucleated Red Blood Cells % 0.0 Neutrophils # 3.1 Lymphocytes # 1.0 Monocytes # 0.6 Eosinophils # 0.2 Basophils # 0.0 Nucleated Red Blood Cells # 0.0 Sodium Level 139 Potassium Level 3.4 L Chloride Level 96 L Carbon Dioxide Level 37 H Anion Gap 9 # Blood Urea Nitrogen 17 Creatinine 1.24 Glucose Level 94 Calcium Level 9.1 Medications Current Medications Ondansetron HCl (Zofran Inj) 4 mg Q6H PRN IV NAUSEA AND/OR VOMITING Last administered on 03/18/17t 12:41; Admin Dose 4 MG; Start 03/11/17 at 12:30 Acetaminophen (Tylenol Tab) 650 mg Q6H PRN PO PAIN LEVEL 1-3 OR FEVER Last administered on 03/11/17 14:17; Admin Dose 650 MG; Start 03/11/17 at 12:30 Famotidine (Pepcid) 20 mg BID PO Last administered on 03/20/17 08:18; Admin Dose 20 MG; Start 03/11/17 at 21:00 Apixaban (Eliquis) 2.5 mg BID PO Last administered on 03/20/17 08:19; Admin Dose 2.5 MG; Start 03/11/17 at 21:00 Atorvastatin Calcium (Lipitor) 20 mg QHS PO Last administered on 03/19/17 21: 07; Admin Dose 20 MG; Start 03/11/17 at 21:00 Escitalopram Oxalate (Lexapro) 10 mg DAILY PO Last administered on 03/20/17 08:18; Admin Dose 10 MG; Start 03/12/17 at 09:00 Furosemide (Lasix) 40 mg BID@06,18 PO Last administered on 03/20/17 06:31; Admin Dose 40 MG; Start 03/11/17 at 18:00 Hydrocodone Bit/ Homatropine Methylb (Hycodan Liquid) 10 ml TID PO Last administered on 03/20/17 08:18; Admin Dose 10 ML; Start 03/11/17 at 21:00 Morphine Sulfate (Ms Contin (Er)) 15 mg BID PO Last administered on 03/20/17 08:18; Admin Dose 15 MG; Start 03/11/17 at 21:00 Pantoprazole (Protonix Tab) 40 mg DAILY@06 PO Last administered on 03/20/17 06:31; Admin Dose 40 MG; Start 03/12/17 at 06:00 Potassium Chloride (Klor-Con 20) 20 meq BID PO Last administered on 03/20/17 08:18; Admin Dose 20 MEQ; Start 03/11/17 at 21:00 Senna (Senokot) 1 tab DAILY PRN PO CONSTIPATION Last administered on 17:18; Admin Dose 1 TAB; Start 03/11/17 at 14:30 Non-Formulary Medication 2 ea BID NASAL Last administered on 03/20/17 08:19; Admin Dose 2 EA; Start 03/11/17 at 15:31 Morphine Sulfate (morphine) 4 mg Q4H PRN IV PAIN LEVEL 7-10 Last administered on 03/19/17 17:39; Admin Dose 4 MG; Start 03/18/17 at 11:11 Hydralazine HCl (Apresoline) 10 mg Q4H PRN IV ELEVATED BLOOD PRESSURE Last administered on 03/20/17 06:36; Admin Dose 10 MG; Start 03/20/17 at 00:30 Lorazepam (Ativan) 1 mg Q4 PRN IV AGITATION/ANXIETY Last administered on 00:50; Admin Dose 1 MG; Start 03/20/17 at 00:30 Assessment/Plan Chief Complaint/Hosp Course IMP: 1. Chronic hypercapnic and hypoxemic resp insufficiency--due to metastatic lung cancer, right lung atx and effusion 2. Underlying COPD. 3. Left upper extremity DVT RECS: 1. Would defer goals of care discussion to Oncology. 2. Continue BD's/CPT/Abx 3. Patient is not a candidate for Pleurx catheter or decortication given advanced lung disease. Continue heme oncology recommendations discharge planning. Problems: ABIODUN SCHULTZ MD, [facility] Mar 20, 2017 14:46
[2017-03-20] MEDS: ALBUTEROL/IPRATROPIUM (NEB) 3 ML AMP HHN PRN (14:47)
--- NOTE | 2017-03-20 17:29 | PN ---
Date/Time of Note Date/Time of Note DATE: 03/20/17 TIME: 17:29 Assessment/Plan VTE Prophylaxis VTE Prophylaxis Intervention: SCD's Lines/Catheters IV C[facility] Type ([facility] Peripheral IV Urinary Cath still in place: No Assessment/Plan Chief Complaint/Hosp Course Patient complains of shortness of breath on exertion, continue supplemental oxygen during day and BiPAP overnight. Case management for senior care facility placement. Assessment/Plan - Hypercapnic respiratory failure due to advanced lung malignancy with almost complete whiteout of the right lung. Dr. Philip is following in pulmonology consultation - Advanced non-small cell lung CA, Dr. Scanlon is following in oncology consultation. - Nonocclusive deep venous thrombosis bilateral upper extremities. Continue Eliquis. - Acute on chronic diastolic congestive heart failure, continue gentle diuresis , continue to monitor electrolytes. - h/o fungal pneumonia, on maintenance voriconazole - CAD, continue aspirin. - Hyperlipidemia, continue statin - Hypothyroidism, continue levothyroxine. - Paroxysmal atrial fibrillation, controlled rate, patient is continued on Eliquis. - COPD - Obesity with BMI 42 - Status post treatment for postobstructive pneumonia and paronychia Further recommendations based on clinical course. Plan of care discussed with Dr. Lincoln. Problems: Exam/Review of Systems Vital Signs Vitals Vital Signs Date Time Temp Pulse Resp B/P Pulse Ox O2 Delivery O2 Flow Rate FiO2 03/20/17 15:37 98.0 94 18 104/64 96 03/20/17 14:48 4.0 03/20/17 14:47 Nasal Cannula 03/20/17 01:05 40 Intake and Output 03/19/17 03/19/17 03/20/17 15:00 23:00 07:00 Intake Total 400 ml Balance 400 ml Exam Constitutional: alert, oriented Head: normocephalic Neck: supple Respiratory: diminished breath sounds Cardiovascular: nl pulses Gastrointestinal: soft Extremities: edema Results Result Diagram: 03/20/1731 03/20/17 0731 Results 24 hrs Laboratory Tests Test 03/20/17 07:31 White Blood Count 4.8 Red Blood Count 3.47 L Hemoglobin 11.1 L Hematocrit 34.9 L Mean Corpuscular Volume 100.6 Mean Corpuscular Hemoglobin 32.0 Mean Corpuscular Hemoglobin Concent 31.8 L Red Cell Distribution Width 13.2 Platelet Count 170 Mean Platelet Volume 11.5 H Neutrophils % 63.0 Lymphocytes % 21.5 Monocytes % 11.6 H Eosinophils % 3.1 Basophils % 0.6 Nucleated Red Blood Cells % 0.0 Neutrophils # 3.1 Lymphocytes # 1.0 Monocytes # 0.6 Eosinophils # 0.2 Basophils # 0.0 Nucleated Red Blood Cells # 0.0 Sodium Level 139 Potassium Level 3.4 L Chloride Level 96 L Carbon Dioxide Level 37 H Anion Gap 9 # Blood Urea Nitrogen 17 Creatinine 1.24 Glucose Level 94 Calcium Level 9.1 Medications Medications Current Medications Ondansetron HCl (Zofran Inj) 4 mg Q6H PRN IV NAUSEA AND/OR VOMITING Last administered on 03/18/17 12:41; Admin Dose 4 MG; Start 03/11/17 at 12:30 Acetaminophen (Tylenol Tab) 650 mg Q6H PRN PO PAIN LEVEL 1-3 OR FEVER Last administered on 03/11/17 14:17; Admin Dose 650 MG; Start 03/11/17 at 12:30 Famotidine (Pepcid) 20 mg BID PO Last administered on 03/20/17 08:18; Admin Dose 20 MG; Start 03/11/17 at 21:00 Apixaban (Eliquis) 2.5 mg BID PO Last administered on 03/20/17 08:19; Admin Dose 2.5 MG; Start 03/11/17 at 21:00 Atorvastatin Calcium (Lipitor) 20 mg QHS PO Last administered on 03/19/17 21: 07; Admin Dose 20 MG; Start 03/11/17 at 21:00 Escitalopram Oxalate (Lexapro) 10 mg DAILY PO Last administered on 03/20/17 08:18; Admin Dose 10 MG; Start 03/12/17 at 09:00 Furosemide (Lasix) 40 mg BID@18 PO Last administered on 03/20/17 17:21; Admin Dose 40 MG; Start 03/11/17 at 18:00 Hydrocodone Bit/ Homatropine Methylb (Hycodan Liquid) 10 ml TID PO Last administered on 03/20/17 15:06; Admin Dose 10 ML; Start 03/11/17 at 21:00 Morphine Sulfate (Ms Contin (Er)) 15 mg BID PO Last administered on 03/20/17 08:18; Admin Dose 15 MG; Start 03/11/17 at 21:00 Pantoprazole (Protonix Tab) 40 mg DAILY@06 PO Last administered on 03/20/17 06:31; Admin Dose 40 MG; Start 03/12/17 at 06:00 Potassium Chloride (Klor-Con 20) 20 meq BID PO Last administered on 03/20/17 08:18; Admin Dose 20 MEQ; Start 03/11/17 at 21:00 Senna (Senokot) 1 tab DAILY PRN PO CONSTIPATION Last administered on 17:18; Admin Dose 1 TAB; Start 03/11/17 at 14:30 Non-Formulary Medication 2 ea BID NASAL Last administered on 03/20/17 08:19; Admin Dose 2 EA; Start 03/11/17 at 15:31 Morphine Sulfate (morphine) 4 mg Q4H PRN IV PAIN LEVEL 7-10 Last administered on 03/19/17 17:39; Admin Dose 4 MG; Start 03/18/17 at 11:11 Hydralazine HCl (Apresoline) 10 mg Q4H PRN IV ELEVATED BLOOD PRESSURE Last administered on 03/20/17 06:36; Admin Dose 10 MG; Start 03/20/17 at 00:30 Lorazepam (Ativan) 1 mg Q4 PRN IV AGITATION/ANXIETY Last administered on 00:50; Admin Dose 1 MG; Start 03/20/17 at 00:30 LUBA EARLY Mar 20, 2017 17:29
--- NOTE | 2017-03-20 18:14 | CONS ---
Date/Time of Note Date/Time of Note DATE: 03/20/17 TIME: 18:14 Assessment/Plan Assessment/Plan Chief Complaint/Hosp Course Lung cancer with ongoing chemotherapy. chemo on hold lung cancer relatively controlled based on recent CTs will try to d/w situation with SEVERE DECONDITIONING, POOR RS OVERALL PROGNOSIS- POOR Leukocytosis. Anemia. Thrombocytopenia-stable, cont to monitor DVT-RUE on eliquis Chest pain. Abnormal electrocardiogram with nonspecific ST and T-wave abnormalities Bradycardia, transient while on beta matthew. Hypotension-improved Shortness of [id number] PNA Renal failure-ongoing s CHF-worsening edema Problems: Consultation Date/Type/Reason Admit Date/Time Mar 10, 2017 at 23:35 Type of Consultation: HEMEON Referring Provider: MARYAM FARMER MD 24 HR Interval Summary Free Text/Dictation IN BED WEAK Exam/Review of Systems Vital Signs Vitals Vital Signs Date Time Temp Pulse Resp B/P Pulse Ox O2 Delivery O2 Flow Rate FiO2 03/20/17 16:00 105 03/20/17 15:37 98.0 18 104/64 96 03/20/17 14:48 4.0 03/20/17 14:47 Nasal Cannula 03/20/17 01:05 40 Intake and Output 03/19/17 03/19/17 03/20/17 15:00 23:00 07:00 Intake Total 400 ml Balance 400 ml Exam Constitutional: alert, oriented Head: normocephalic Neck: supple Respiratory: diminished breath sounds Cardiovascular: nl pulses Gastrointestinal: soft Extremities: edema Results Result Diagram: 03/20/17 0731 03/20/17 0731 Results 24 hrs Laboratory Tests Test 03/20/17 07:31 White Blood Count 4.8 Red Blood Count 3.47 L Hemoglobin 11.1 L Hematocrit 34.9 L Mean Corpuscular Volume 100.6 Mean Corpuscular Hemoglobin 32.0 Mean Corpuscular Hemoglobin Concent 31.8 L Red Cell Distribution Width 13.2 Platelet Count 170 Mean Platelet Volume 11.5 H Neutrophils % 63.0 Lymphocytes % 21.5 Monocytes % 11.6 H Eosinophils % 3.1 Basophils % 0.6 Nucleated Red Blood Cells % 0.0 Neutrophils # 3.1 Lymphocytes # 1.0 Monocytes # 0.6 Eosinophils # 0.2 Basophils # 0.0 Nucleated Red Blood Cells # 0.0 Sodium Level 139 Potassium Level 3.4 L Chloride Level 96 L Carbon Dioxide Level 37 H Anion Gap 9 # Blood Urea Nitrogen 17 Creatinine 1.24 Glucose Level 94 Calcium Level 9.1 Medications Medications Current Medications Ondansetron HCl (Zofran Inj) 4 mg Q6H PRN IV NAUSEA AND/OR VOMITING Last administered on 03/18/17 12:41; Admin Dose 4 MG; Start 03/11/17 at 12:30 Acetaminophen (Tylenol Tab) 650 mg Q6H PRN PO PAIN LEVEL 1-3 OR FEVER Last administered on 03/11/17 14:17; Admin Dose 650 MG; Start 03/11/17 at 12:30 Famotidine (Pepcid) 20 mg BID PO Last administered on 03/20/17 08:18; Admin Dose 20 MG; Start 03/11/17 at 21:00 Apixaban (Eliquis) 2.5 mg BID PO Last administered on 03/20/17 08:19; Admin Dose 2.5 MG; Start 03/11/17 at 21:00 Atorvastatin Calcium (Lipitor) 20 mg QHS PO Last administered on 03/19/17 21: 07; Admin Dose 20 MG; Start 03/11/17 at 21:00 Escitalopram Oxalate (Lexapro) 10 mg DAILY PO Last administered on 03/20/17 08:18; Admin Dose 10 MG; Start 03/12/17 at 09:00 Furosemide (Lasix) 40 mg BID@,18 PO Last administered on 03/20/17 17:21; Admin Dose 40 MG; Start 03/11/17 at 18:00 Hydrocodone Bit/ Homatropine Methylb (Hycodan Liquid) 10 ml TID PO Last administered on 03/20/17 15:06; Admin Dose 10 ML; Start 03/11/17 at 21:00 Morphine Sulfate (Ms Contin (Er)) 15 mg BID PO Last administered on 03/20/17 08:18; Admin Dose 15 MG; Start 03/11/17 at 21:00 Pantoprazole (Protonix Tab) 40 mg DAILY@06 PO Last administered on 03/20/17 06:31; Admin Dose 40 MG; Start 03/12/17 at 06:00 Potassium Chloride (Klor-Con 20) 20 meq BID PO Last administered on 03/20/17 08:18; Admin Dose 20 MEQ; Start 03/11/17 at 21:00 Senna (Senokot) 1 tab DAILY PRN PO CONSTIPATION Last administered on 17:18; Admin Dose 1 TAB; Start 03/11/17 at 14:30 Non-Formulary Medication 2 ea BID NASAL Last administered on 03/20/17 08:19; Admin Dose 2 EA; Start 03/11/17 at 15:31 Morphine Sulfate (morphine) 4 mg Q4H PRN IV PAIN LEVEL 7-10 Last administered on 03/19/17 17:39; Admin Dose 4 MG; Start 03/18/17 at 11:11 Hydralazine HCl (Apresoline) 10 mg Q4H PRN IV ELEVATED BLOOD PRESSURE Last administered on 03/20/17 06:36; Admin Dose 10 MG; Start 03/20/17 at 00:30 Lorazepam (Ativan) 1 mg Q4 PRN IV AGITATION/ANXIETY Last administered on 00:50; Admin Dose 1 MG; Start 03/20/17 at 00:30 DAHIANA BABCOCK MD Mar 20, 2017 18:14
[2017-03-20] MEDS: ATORVASTATIN 20 MG TAB PO SCH (20:17)
[2017-03-21] VITALS (14 sets, daily range): BP systolic 110–145; BP diastolic 63–79; PULSE 86–100; RESP 17–20
[2017-03-21] MEDS: LEVOTHYROXINE 75 MCG TAB PO SCH (06:33)
[2017-03-21] MEDS: FUROSEMIDE 40 MG TAB PO SCH ×2 (06:33→18:27)
[2017-03-21] MEDS: PANTOPRAZOLE (EC) 40 MG TAB PO SCH (06:33)
[2017-03-21] MEDS: DRONABINOL 2.5 MG CAP PO SCH ×3 (06:48→17:41)
[2017-03-21] MEDS: morphine 4 MG/ML VIAL IV PRN ×3 (06:50→23:36)
[2017-03-21] MEDS: HYDROCODONE/HOMATROPINE 5ML CUP PO SCH ×3 (07:54→20:14)
[2017-03-21] MEDS: SPECIAL NON-STANDARD MEDICATION (BULK) NASAL SCH ×2 (07:54→20:15)
[2017-03-21] MEDS: APIXABAN 5 MG TABLET PO SCH ×2 (07:55→20:15)
[2017-03-21] MEDS: FAMOTIDINE 20 MG TAB PO SCH ×2 (07:55→20:15)
[2017-03-21] MEDS: POTASSIUM CHLORIDE (SR) 20 MEQ TAB PO SCH ×2 (07:55→20:14)
[2017-03-21] MEDS: ESCITALOPRAM 10 MG TAB PO SCH (07:55)
[2017-03-21] MEDS: morphine (ER) 15 MG TAB PO SCH ×4 (09:00→20:15)
[2017-03-21] MEDS: LORAZEPAM 2 MG INJ IV PRN (09:30)
--- NOTE | 2017-03-21 11:12 | CONS ---
Date/Time of Note Date/Time of Note DATE: 03/21/17 TIME: 11:10 Assessment/Plan Assessment/Plan Additional Assessment/Plan Assessment and recommendations; 1. Patient admitted with hypercapnic respiratory failure due to extensive lung malignancy involving the entire right lung. Patient on intermittent BiPAP. 2. Underlying COPD. 3. Renal insufficiency with interval improvement. 4. Left upper extremity DVT. Continue current supportive care. Consider discharge. Patient already has BiPAP at home as well as home oxygen. Prognosis is poor. Consultation Date/Type/Reason Admit Date/Time Mar 10, 2017 at 23:35 Type of Consultation: Pulmonary Referring Provider: MARYAM FARMER MD 24 HR Interval Summary Free Text/Dictation Patient's condition is tenuous at best. Still complains of shortness of breath upon minimal exertion. Complains of occasional hemoptysis. On exam; elderly male, awake and alert. Currently in no distress. Exam/Review of Systems Vital Signs Vitals Vital Signs Date Time Temp Pulse Resp B/P Pulse Ox O2 Delivery O2 Flow Rate FiO2 03/21/17 08:14 86 03/21/17 07:56 4.0 03/21/17 07:39 98.9 18 127/75 97 03/21/17 03:14 40 03/20/17 21:00 Nasal Cannula Intake and Output 03/20/17 03/20/17 03/21/17 15:00 23:00 07:00 Intake Total 300 ml 300 ml Balance 300 ml 300 ml Exam HEENT exam; supple neck, no JVD. No lymphadenopathy. Midline trachea. No thyromegaly. Patient has fair dentition. Patient is alopecic. Chest exam; diminished breath sounds left lung. Right lung is clear to auscultation. S1-S2 audible, no murmurs. Regular rhythm. Abdomen exam; soft, nondistended. No organomegaly. Bowel sounds audible. Next Extremity exam; no edema. No clubbing. 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 Results Result Diagram: 03/21/17 0825 03/21/17 0825 Results 24 hrs Laboratory Tests Test 03/21/17 08:25 White Blood Count 5.9 # Red Blood Count 3.29 L Hemoglobin 10.2 L Hematocrit 33.1 L Mean Corpuscular Volume 100.6 Mean Corpuscular Hemoglobin 31.0 Mean Corpuscular Hemoglobin Concent 30.8 L Red Cell Distribution Width 13.6 Platelet Count 166 Mean Platelet Volume 11.2 H Neutrophils % 68.6 Lymphocytes % 15.5 Monocytes % 11.6 H Eosinophils % 3.4 Basophils % 0.7 Nucleated Red Blood Cells % 0.0 Neutrophils # 4.0 Lymphocytes # 0.9 Monocytes # 0.7 Eosinophils # 0.2 Basophils # 0.0 Nucleated Red Blood Cells # 0.0 Sodium Level 138 Potassium Level 3.6 Chloride Level 94 L Carbon Dioxide Level 35 H Anion Gap 13 Blood Urea Nitrogen 17 Creatinine 1.17 Glucose Level 95 Calcium Level 8.6 Medications Medications Current Medications Ondansetron HCl (Zofran Inj) 4 mg Q6H PRN IV NAUSEA AND/OR VOMITING Last administered on 03/18/17 12:41; Admin Dose 4 MG; Start 03/11/17 at 12:30 Acetaminophen (Tylenol Tab) 650 mg Q6H PRN PO PAIN LEVEL 1-3 OR FEVER Last administered on 03/11/17 14:17; Admin Dose 650 MG; Start 03/11/17 at 12:30 Famotidine (Pepcid) 20 mg BID PO Last administered on 03/21/17 07:55; Admin Dose 20 MG; Start 03/11/17 at 21:00 Apixaban (Eliquis) 2.5 mg BID PO Last administered on 03/21/17 07:55; Admin Dose 2.5 MG; Start 03/11/17 at 21:00 Atorvastatin Calcium (Lipitor) 20 mg QHS PO Last administered on 03/20/17 20: 17; Admin Dose 20 MG; Start 03/11/17 at 21:00 Escitalopram Oxalate (Lexapro) 10 mg DAILY PO Last administered on 03/21/17 07:55; Admin Dose 10 MG; Start 03/12/17 at 09:00 Furosemide (Lasix) 40 mg BID@ PO Last administered on 03/21/17 06:33; Admin Dose 40 MG; Start 03/11/17 at 18:00 Hydrocodone Bit/ Homatropine Methylb (Hycodan Liquid) 10 ml TID PO Last administered on 03/21/17 07:54; Admin Dose 10 ML; Start 03/11/17 at 21:00 Morphine Sulfate (Ms Contin (Er)) 15 mg BID PO Last administered on 03/21/17 09:30; Admin Dose 15 MG; Start 03/11/17 at 21:00 Pantoprazole (Protonix Tab) 40 mg DAILY@06 PO Last administered on 03/21/17 06:33; Admin Dose 40 MG; Start 03/12/17 at 06:00 Potassium Chloride (Klor-Con 20) 20 meq BID PO Last administered on 03/21/17 07:55; Admin Dose 20 MEQ; Start 03/11/17 at 21:00 Senna (Senokot) 1 tab DAILY PRN PO CONSTIPATION Last administered on 17:18; Admin Dose 1 TAB; Start 03/11/17 at 14:30 Non-Formulary Medication 2 ea BID NASAL Last administered on 03/21/17 07:54; Admin Dose 2 EA; Start 03/11/17 at 15:31 Morphine Sulfate (morphine) 4 mg Q4H PRN IV PAIN LEVEL 7-10 Last administered on 03/21/17 00:00; Admin Dose 4 MG; Start 03/18/17 at 11:11 Hydralazine HCl (Apresoline) 10 mg Q4H PRN IV ELEVATED BLOOD PRESSURE Last administered on 03/20/17 06:36; Admin Dose 10 MG; Start 03/20/17 at 00:30 Lorazepam (Ativan) 1 mg Q4 PRN IV AGITATION/ANXIETY Last administered on 09:30; Admin Dose 1 MG; Start 03/20/17 at 00:30 ISMA CUTLER Mar 21, 2017 11:12
[2017-03-21] MEDS: ONDANSETRON 4 MG INJ IV PRN (16:10)
[2017-03-21] MEDS: ALBUTEROL/IPRATROPIUM (NEB) 3 ML AMP HHN PRN (16:26)
--- NOTE | 2017-03-21 18:44 | PN ---
Date/Time of Note Date/Time of Note DATE: 03/21/17 TIME: 18:42 Assessment/Plan VTE Prophylaxis VTE Prophylaxis Intervention: SCD's Lines/Catheters IV [facility] Type (from [facility] Peripheral IV Urinary Cath still in place: No Assessment/Plan Chief Complaint/Hosp Course Patient continues to have shortness of breath on exertion, somewhat comfortable art rest, continue supplemental oxygen during day and BiPAP overnight. Case management for long-term facility placement. Assessment/Plan - Hypercapnic respiratory failure due to advanced lung malignancy with almost complete whiteout of the right lung. Dr. Philip is following in pulmonology consultation - Advanced non-small cell lung CA, Dr. Scanlon is following in oncology consultation. - Nonocclusive deep venous thrombosis bilateral upper extremities. Continue Eliquis. - Acute on chronic diastolic congestive heart failure, continue gentle diuresis , continue to monitor electrolytes. - h/o fungal pneumonia, on maintenance voriconazole - CAD, continue aspirin. - Hyperlipidemia, continue statin - Hypothyroidism, continue levothyroxine. - Paroxysmal atrial fibrillation, controlled rate, patient is continued on Eliquis. - COPD - Obesity with BMI 42 - Status post treatment for postobstructive pneumonia and paronychia Further recommendations based on clinical course. Plan of care discussed with Dr. Lincoln. Problems: Exam/Review of Systems Vital Signs Vitals Vital Signs Date Time Temp Pulse Resp B/P Pulse Ox O2 Delivery O2 Flow Rate FiO2 03/21/17 16:38 88 22 96 Nasal Cannula 4.0 03/21/17 16:02 98.6 118/72 03/21/17 03:14 40 Intake and Output 03/20/17 03/20/17 03/21/17 15:00 23:00 07:00 Intake Total 300 ml 300 ml Balance 300 ml 300 ml Exam Constitutional: alert, oriented Head: normocephalic Neck: supple Respiratory: diminished breath sounds Cardiovascular: nl pulses Gastrointestinal: soft Extremities: edema Results Result Diagram: 03/21/17 0825 03/21/17 0825 Results 24 hrs Laboratory Tests Test 03/21/17 08:25 White Blood Count 5.9 # Red Blood Count 3.29 L Hemoglobin 10.2 L Hematocrit 33.1 L Mean Corpuscular Volume 100.6 Mean Corpuscular Hemoglobin 31.0 Mean Corpuscular Hemoglobin Concent 30.8 L Red Cell Distribution Width 13.6 Platelet Count 166 Mean Platelet Volume 11.2 H Neutrophils % 68.6 Lymphocytes % 15.5 Monocytes % 11.6 H Eosinophils % 3.4 Basophils % 0.7 Nucleated Red Blood Cells % 0.0 Neutrophils # 4.0 Lymphocytes # 0.9 Monocytes # 0.7 Eosinophils # 0.2 Basophils # 0.0 Nucleated Red Blood Cells # 0.0 Sodium Level 138 Potassium Level 3.6 Chloride Level 94 L Carbon Dioxide Level 35 H Anion Gap 13 Blood Urea Nitrogen 17 Creatinine 1.17 Glucose Level 95 Calcium Level 8.6 Medications Medications Current Medications Ondansetron HCl (Zofran Inj) 4 mg Q6H PRN IV NAUSEA AND/OR VOMITING Last administered on 03/21/17 16:10; Admin Dose 4 MG; Start 03/11/17 at 12:30 Acetaminophen (Tylenol Tab) 650 mg Q6H PRN PO PAIN LEVEL 1-3 OR FEVER Last administered on 03/11/17 14:17; Admin Dose 650 MG; Start 03/11/17 at 12:30 Famotidine (Pepcid) 20 mg BID PO Last administered on 03/21/17 07:55; Admin Dose 20 MG; Start 03/11/17 at 21:00 Apixaban (Eliquis) 2.5 mg BID PO Last administered on 03/21/17 07:55; Admin Dose 2.5 MG; Start 03/11/17 at 21:00 Atorvastatin Calcium (Lipitor) 20 mg QHS PO Last administered on 03/20/17 20: 17; Admin Dose 20 MG; Start 03/11/17 at 21:00 Escitalopram Oxalate (Lexapro) 10 mg DAILY PO Last administered on 03/21/17 07:55; Admin Dose 10 MG; Start 03/12/17 at 09:00 Furosemide (Lasix) 40 mg BID@18 PO Last administered on 03/21/17 18:27; Admin Dose 40 MG; Start 03/11/17 at 18:00 Hydrocodone Bit/ Homatropine Methylb (Hycodan Liquid) 10 ml TID PO Last administered on 03/21/17 07:54; Admin Dose 10 ML; Start 03/11/17 at 21:00 Morphine Sulfate (Ms Contin (Er)) 15 mg BID PO Last administered on 03/21/17 09:30; Admin Dose 15 MG; Start 03/11/17 at 21:00 Pantoprazole (Protonix Tab) 40 mg DAILY@06 PO Last administered on 03/21/17 06:33; Admin Dose 40 MG; Start 03/12/17 at 06:00 Potassium Chloride (Klor-Con 20) 20 meq BID PO Last administered on 03/21/17 07:55; Admin Dose 20 MEQ; Start 03/11/17 at 21:00 Senna (Senokot) 1 tab DAILY PRN PO CONSTIPATION Last administered on 17:18; Admin Dose 1 TAB; Start 03/11/17 at 14:30 Non-Formulary Medication 2 ea BID NASAL Last administered on 03/21/17 07:54; Admin Dose 2 EA; Start 03/11/17 at 15:31 Morphine Sulfate (morphine) 4 mg Q4H PRN IV PAIN LEVEL 7-10 Last administered on 03/21/17 00:00; Admin Dose 4 MG; Start 03/18/17 at 11:11 Hydralazine HCl (Apresoline) 10 mg Q4H PRN IV ELEVATED BLOOD PRESSURE Last administered on 03/20/17 06:36; Admin Dose 10 MG; Start 03/20/17 at 00:30 Lorazepam (Ativan) 1 mg Q4 PRN IV AGITATION/ANXIETY Last administered on 09:30; Admin Dose 1 MG; Start 03/20/17 at 00:30 LUBA EARLY Mar 21, 2017 18:44
[2017-03-21] MEDS: ATORVASTATIN 20 MG TAB PO SCH (20:15)
--- NOTE | 2017-03-21 22:29 | CONS ---
Date/Time of Note Date/Time of Note DATE: 03/21/17 TIME: 22:27 Assessment/Plan Assessment/Plan Chief Complaint/Hosp Course Lung cancer with ongoing chemotherapy. chemo on hold lung cancer relatively controlled based on recent CTs d/w situation with - she refused hospice SEVERE DECONDITIONING, POOR RS OVERALL PROGNOSIS- POOR Leukocytosis. Anemia. Thrombocytopenia-stable, cont to monitor DVT-RUE on eliquis Chest pain. Abnormal electrocardiogram with nonspecific ST and T-wave abnormalities Bradycardia, transient while on beta matthew. Hypotension-improved Shortness of moqshv-didw-qpqqjeaeyug PNA Renal failure-ongoing s CHF-worsening edema Problems: Consultation Date/Type/Reason Admit Date/Time Mar 10, 2017 at 23:35 Type of Consultation: hemeon Referring Provider: MARYAM FARMER MD 24 HR Interval Summary Free Text/Dictation all noted refused hospice Exam/Review of Systems Vital Signs Vitals Vital Signs Date Time Temp Pulse Resp B/P Pulse Ox O2 Delivery O2 Flow Rate FiO2 03/21/17 20:00 92 03/21/17 20:00 98.2 18 119/74 93 03/21/17 16:38 Nasal Cannula 4.0 03/21/17 03:14 40 Intake and Output 03/20/17 03/20/17 03/21/17 15:00 23:00 07:00 Intake Total 300 ml 300 ml Balance 300 ml 300 ml Exam Constitutional: alert, oriented Head: normocephalic Neck: supple Respiratory: diminished breath sounds Cardiovascular: nl pulses Gastrointestinal: soft Extremities: edema Results Result Diagram: 03/21/17 0825 03/21/17 0825 Results 24 hrs Laboratory Tests Test 03/21/17 08:25 White Blood Count 5.9 # Red Blood Count 3.29 L Hemoglobin 10.2 L Hematocrit 33.1 L Mean Corpuscular Volume 100.6 Mean Corpuscular Hemoglobin 31.0 Mean Corpuscular Hemoglobin Concent 30.8 L Red Cell Distribution Width 13.6 Platelet Count 166 Mean Platelet Volume 11.2 H Neutrophils % 68.6 Lymphocytes % 15.5 Monocytes % 11.6 H Eosinophils % 3.4 Basophils % 0.7 Nucleated Red Blood Cells % 0.0 Neutrophils # 4.0 Lymphocytes # 0.9 Monocytes # 0.7 Eosinophils # 0.2 Basophils # 0.0 Nucleated Red Blood Cells # 0.0 Sodium Level 138 Potassium Level 3.6 Chloride Level 94 L Carbon Dioxide Level 35 H Anion Gap 13 Blood Urea Nitrogen 17 Creatinine 1.17 Glucose Level 95 Calcium Level 8.6 Medications Medications Current Medications Ondansetron HCl (Zofran Inj) 4 mg Q6H PRN IV NAUSEA AND/OR VOMITING Last administered on 03/21/17 16:10; Admin Dose 4 MG; Start 03/11/17 at 12:30 Acetaminophen (Tylenol Tab) 650 mg Q6H PRN PO PAIN LEVEL 1-3 OR FEVER Last administered on 03/11/17 14:17; Admin Dose 650 MG; Start 03/11/17 at 12:30 Famotidine (Pepcid) 20 mg BID PO Last administered on 03/21/17 20:15; Admin Dose 20 MG; Start 03/11/17 at 21:00 Apixaban (Eliquis) 2.5 mg BID PO Last administered on 03/21/17 20:15; Admin Dose 2.5 MG; Start 03/11/17 at 21:00 Atorvastatin Calcium (Lipitor) 20 mg QHS PO Last administered on 03/21/17 20: 15; Admin Dose 20 MG; Start 03/11/17 at 21:00 Escitalopram Oxalate (Lexapro) 10 mg DAILY PO Last administered on 03/21/17 07:55; Admin Dose 10 MG; Start 03/12/17 at 09:00 Furosemide (Lasix) 40 mg BID@,18 PO Last administered on 03/21/17 18:27; Admin Dose 40 MG; Start 03/11/17 at 18:00 Hydrocodone Bit/ Homatropine Methylb (Hycodan Liquid) 10 ml TID PO Last administered on 03/21/17 20:14; Admin Dose 10 ML; Start 03/11/17 at 21:00 Morphine Sulfate (Ms Contin (Er)) 15 mg BID PO Last administered on 03/21/17 20:15; Admin Dose 15 MG; Start 03/11/17 at 21:00 Pantoprazole (Protonix Tab) 40 mg DAILY@06 PO Last administered on 03/21/17 06:33; Admin Dose 40 MG; Start 03/12/17 at 06:00 Potassium Chloride (Klor-Con 20) 20 meq BID PO Last administered on 03/21/17 20:14; Admin Dose 20 MEQ; Start 03/11/17 at 21:00 Senna (Senokot) 1 tab DAILY PRN PO CONSTIPATION Last administered on 17:18; Admin Dose 1 TAB; Start 03/11/17 at 14:30 Non-Formulary Medication 2 ea BID NASAL Last administered on 03/21/17 20:15; Admin Dose 2 EA; Start 03/11/17 at 15:31 Morphine Sulfate (morphine) 4 mg Q4H PRN IV PAIN LEVEL 7-10 Last administered on 03/21/17 06:50; Admin Dose 4 MG; Start 03/18/17 at 11:11 Hydralazine HCl (Apresoline) 10 mg Q4H PRN IV ELEVATED BLOOD PRESSURE Last administered on 03/20/17 06:36; Admin Dose 10 MG; Start 03/20/17 at 00:30 Lorazepam (Ativan) 1 mg Q4 PRN IV AGITATION/ANXIETY Last administered on 09:30; Admin Dose 1 MG; Start 03/20/17 at 00:30 DAHIANA BABCOCK MD Mar 21, 2017 22:29
[2017-03-22] VITALS (13 sets, daily range): BP systolic 108–150; BP diastolic 58–73; PULSE 82–90; RESP 18–19
[2017-03-22] MEDS: FUROSEMIDE 40 MG TAB PO SCH ×2 (06:14→17:52)
[2017-03-22] MEDS: PANTOPRAZOLE (EC) 40 MG TAB PO SCH (06:14)
[2017-03-22] MEDS: LEVOTHYROXINE 75 MCG TAB PO SCH (06:14)
[2017-03-22] MEDS: morphine 4 MG/ML VIAL IV PRN ×4 (06:14→20:08)
[2017-03-22] MEDS: DRONABINOL 2.5 MG CAP PO SCH ×3 (08:00→17:52)
[2017-03-22] MEDS: morphine (ER) 15 MG TAB PO SCH ×2 (08:10→20:07)
[2017-03-22] MEDS: HYDROCODONE/HOMATROPINE 5ML CUP PO SCH ×3 (08:10→20:15)
[2017-03-22] MEDS: ESCITALOPRAM 10 MG TAB PO SCH (09:02)
[2017-03-22] MEDS: POTASSIUM CHLORIDE (SR) 20 MEQ TAB PO SCH ×2 (09:02→20:08)
[2017-03-22] MEDS: FAMOTIDINE 20 MG TAB PO SCH ×2 (09:02→20:07)
[2017-03-22] MEDS: APIXABAN 5 MG TABLET PO SCH ×2 (09:03→20:06)
[2017-03-22] MEDS: SPECIAL NON-STANDARD MEDICATION (BULK) NASAL SCH ×2 (09:04→21:00)
--- NOTE | 2017-03-22 11:46 | CONS ---
Date/Time of Note Date/Time of Note DATE: 03/22/17 TIME: 11:44 Consultation Date/Type/Reason Admit Date/Time Mar 10, 2017 at 23:35 Type of Consultation: Pulmonary Referring Provider: MARYAM FARMER MD 24 HR Interval Summary Free Text/Dictation Patient's condition is stable. Still complains of shortness of breath on exertion. Complains of scant cough with occasional hemoptysis. General exam; elderly male, awake and alert. Currently in no distress. Appears hoarse. HEENT exam; supple neck, no JVD. No lymphadenopathy. Midline trachea. Patient has fair dentition. Chest exam; diminished breath sounds right lung. S1-S2 audible, no murmurs. Abdomen exam; soft, nontender. No organomegaly. Bowel sounds audible. Extremity exam; no peripheral edema. No clubbing. 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 Assessment and recommendations; 1. Patient admitted with hypoxemia and hypercapnic respiratory failure, doing fairly well on nocturnal BiPAP. Patient currently weaned down to 3 L nasal cannula. 2. Extensive metastatic lung cancer. With almost complete whiteout of the right lung. 3. Renal insufficiency with improving serum creatinine. 4. Left upper extremity DVT. Continue current treatment. Consider discharge. Prognosis is poor. Exam/Review of Systems Vital Signs Vitals Vital Signs Date Time Temp Pulse Resp B/P Pulse Ox O2 Delivery O2 Flow Rate FiO2 03/22/17 08:10 82 03/22/17 07:53 98.6 18 118/58 98 03/21/17 23:30 40 03/21/17 16:38 Nasal Cannula 4.0 Intake and Output 03/21/17 03/21/17 03/22/17 15:00 23:00 07:00 Intake Total 900 ml 300 ml Balance 900 ml 300 ml Results Result Diagram: 03/22/17 0546 03/22/17 0546 Results 24 hrs Laboratory Tests Test 03/22/17 05:46 White Blood Count 5.2 Red Blood Count 3.14 L Hemoglobin 9.9 L Hematocrit 31.7 L Mean Corpuscular Volume 101.0 Mean Corpuscular Hemoglobin 31.5 Mean Corpuscular Hemoglobin Concent 31.2 L Red Cell Distribution Width 13.6 Platelet Count 181 Mean Platelet Volume 11.2 H Neutrophils % 64.7 Lymphocytes % 18.7 Monocytes % 12.0 H Eosinophils % 3.8 Basophils % 0.6 Nucleated Red Blood Cells % 0.0 Neutrophils # 3.4 Lymphocytes # 1.0 Monocytes # 0.6 Eosinophils # 0.2 Basophils # 0.0 Nucleated Red Blood Cells # 0.0 Sodium Level 142 Potassium Level 3.5 Chloride Level 95 L Carbon Dioxide Level 38 H Anion Gap 13 Blood Urea Nitrogen 16 Creatinine 1.24 Glucose Level 89 Calcium Level 8.8 Medications Medications Current Medications Ondansetron HCl (Zofran Inj) 4 mg Q6H PRN IV NAUSEA AND/OR VOMITING Last administered on 03/21/17 16:10; Admin Dose 4 MG; Start 03/11/17 at 12:30 Acetaminophen (Tylenol Tab) 650 mg Q6H PRN PO PAIN LEVEL 1-3 OR FEVER Last administered on 03/11/17 14:17; Admin Dose 650 MG; Start 03/11/17 at 12:30 Famotidine (Pepcid) 20 mg BID PO Last administered on 03/22/17 09:02; Admin Dose 20 MG; Start 03/11/17 at 21:00 Apixaban (Eliquis) 2.5 mg BID PO Last administered on 03/22/17 09:03; Admin Dose 2.5 MG; Start 03/11/17 at 21:00 Atorvastatin Calcium (Lipitor) 20 mg QHS PO Last administered on 03/21/17 20: 15; Admin Dose 20 MG; Start 03/11/17 at 21:00 Escitalopram Oxalate (Lexapro) 10 mg DAILY PO Last administered on 03/22/17 09:02; Admin Dose 10 MG; Start 03/12/17 at 09:00 Furosemide (Lasix) 40 mg BID@,18 PO Last administered on 03/22/17 06:14; Admin Dose 40 MG; Start 03/11/17 at 18:00 Hydrocodone Bit/ Homatropine Methylb (Hycodan Liquid) 10 ml TID PO Last administered on 03/22/17 08:10; Admin Dose 10 ML; Start 03/11/17 at 21:00 Morphine Sulfate (Ms Contin (Er)) 15 mg BID PO Last administered on 03/22/17 08:10; Admin Dose 15 MG; Start 03/11/17 at 21:00 Pantoprazole (Protonix Tab) 40 mg DAILY@06 PO Last administered on 03/22/17 06:14; Admin Dose 40 MG; Start 03/12/17 at 06:00 Potassium Chloride (Klor-Con 20) 20 meq BID PO Last administered on 03/22/17 09:02; Admin Dose 20 MEQ; Start 03/11/17 at 21:00 Senna (Senokot) 1 tab DAILY PRN PO CONSTIPATION Last administered on 17:18; Admin Dose 1 TAB; Start 03/11/17 at 14:30 Non-Formulary Medication 2 ea BID NASAL Last administered on 03/22/17 09:04; Admin Dose 2 EA; Start 03/11/17 at 15:31 Morphine Sulfate (morphine) 4 mg Q4H PRN IV PAIN LEVEL 7-10 Last administered on 03/22/17 06:14; Admin Dose 4 MG; Start 03/18/17 at 11:11 Hydralazine HCl (Apresoline) 10 mg Q4H PRN IV ELEVATED BLOOD PRESSURE Last administered on 03/20/17 06:36; Admin Dose 10 MG; Start 03/20/17 at 00:30 Lorazepam (Ativan) 1 mg Q4 PRN IV AGITATION/ANXIETY Last administered on 09:30; Admin Dose 1 MG; Start 03/20/17 at 00:30 ISMA CUTLER Mar 22, 2017 11:46
[2017-03-22] MEDS: SENNA TAB PO PRN (12:35)
--- NOTE | 2017-03-22 17:27 | PN ---
Date/Time of Note Date/Time of Note DATE: 03/22/17 TIME: 17:20 Assessment/Plan VTE Prophylaxis VTE Prophylaxis Intervention: other Lines/Catheters IV [facility]ter Type [facility]from [facility]): Saline Lock Urinary Cath still in place: No Assessment/Plan Assessment/Plan - Hypercapnic respiratory failure due to advanced lung malignancy with almost complete whiteout of the right lung. Dr. Philip is following in pulmonology consultation - Advanced non-small cell lung CA, Dr. Scanlon is following in oncology consultation. - Nonocclusive deep venous thrombosis bilateral upper extremities. Continue Eliquis. - Acute on chronic diastolic congestive heart failure, continue gentle diuresis , continue to monitor electrolytes. - h/o fungal pneumonia, on maintenance voriconazole - CAD, continue aspirin. - Hyperlipidemia, continue statin - Hypothyroidism, continue levothyroxine. - Paroxysmal atrial fibrillation, controlled rate, patient is continued on Eliquis. - COPD - Obesity with BMI 42 - Status post treatment for postobstructive pneumonia and paronychia Further recommendations based on clinical course. Plan of care discussed with Dr. Lincoln. Subjective 24 Hr Interval Summary Free Text/Dictation - remains on supplement oxygen during day and BiPAP overnight - alert , responsive - c/o shortness of breath on exertion, - pending care home facility placement. - dw staff Respiratory: shortness of breath Cardiovascular: no complaints Gastrointestinal: no complaints Genitourinary: no complaints Musculoskeletal: no complaints Exam/Review of Systems Vital Signs Vitals Vital Signs Date Time Temp Pulse Resp B/P Pulse Ox O2 Delivery O2 Flow Rate FiO2 03/22/17 16:10 90 03/22/17 15:41 98.0 18 138/63 97 03/22/17 08:00 Nasal Cannula 3.0 03/21/17 23:30 40 Intake and Output 03/21/17 03/21/17 03/22/17 15:00 23:00 07:00 Intake Total 900 ml 300 ml Balance 900 ml 300 ml Exam Constitutional: alert, obese, oriented Cardiovascular: nl pulses, other (s1s2) Gastrointestinal: non-tender, soft Musculoskeletal: other Extremities: normal pulses Neurological: nl speech Results Result Diagram: 03/22/17 0546 03/22/17 0546 Results 24 hrs Laboratory Tests Test 03/22/17 05:46 White Blood Count 5.2 Red Blood Count 3.14 L Hemoglobin 9.9 L Hematocrit 31.7 L Mean Corpuscular Volume 101.0 Mean Corpuscular Hemoglobin 31.5 Mean Corpuscular Hemoglobin Concent 31.2 L Red Cell Distribution Width 13.6 Platelet Count 181 Mean Platelet Volume 11.2 H Neutrophils % 64.7 Lymphocytes % 18.7 Monocytes % 12.0 H Eosinophils % 3.8 Basophils % 0.6 Nucleated Red Blood Cells % 0.0 Neutrophils # 3.4 Lymphocytes # 1.0 Monocytes # 0.6 Eosinophils # 0.2 Basophils # 0.0 Nucleated Red Blood Cells # 0.0 Sodium Level 142 Potassium Level 3.5 Chloride Level 95 L Carbon Dioxide Level 38 H Anion Gap 13 Blood Urea Nitrogen 16 Creatinine 1.24 Glucose Level 89 Calcium Level 8.8 Medications Medications Current Medications Ondansetron HCl (Zofran Inj) 4 mg Q6H PRN IV NAUSEA AND/OR VOMITING Last administered on 03/21/17 16:10; Admin Dose 4 MG; Start 03/11/17 at 12:30 Acetaminophen (Tylenol Tab) 650 mg Q6H PRN PO PAIN LEVEL 1-3 OR FEVER Last administered on 03/11/17 14:17; Admin Dose 650 MG; Start 03/11/17 at 12:30 Famotidine (Pepcid) 20 mg BID PO Last administered on 03/22/17 09:02; Admin Dose 20 MG; Start 03/11/17 at 21:00 Apixaban (Eliquis) 2.5 mg BID PO Last administered on 03/22/17 09:03; Admin Dose 2.5 MG; Start 03/11/17 at 21:00 Atorvastatin Calcium (Lipitor) 20 mg QHS PO Last administered on 03/21/17 20: 15; Admin Dose 20 MG; Start 03/11/17 at 21:00 Escitalopram Oxalate (Lexapro) 10 mg DAILY PO Last administered on 03/22/17 09:02; Admin Dose 10 MG; Start 03/12/17 at 09:00 Furosemide (Lasix) 40 mg BID@06,18 PO Last administered on 03/22/17 06:14; Admin Dose 40 MG; Start 03/11/17 at 18:00 Hydrocodone Bit/ Homatropine Methylb (Hycodan Liquid) 10 ml TID PO Last administered on 03/22/17 12:35; Admin Dose 10 ML; Start 03/11/17 at 21:00 Morphine Sulfate (Ms Contin (Er)) 15 mg BID PO Last administered on 03/22/17 08:10; Admin Dose 15 MG; Start 03/11/17 at 21:00 Pantoprazole (Protonix Tab) 40 mg DAILY@06 PO Last administered on 03/22/17 06:14; Admin Dose 40 MG; Start 03/12/17 at 06:00 Potassium Chloride (Klor-Con 20) 20 meq BID PO Last administered on 03/22/17 09:02; Admin Dose 20 MEQ; Start 03/11/17 at 21:00 Senna (Senokot) 1 tab DAILY PRN PO CONSTIPATION Last administered on 12:35; Admin Dose 1 TAB; Start 03/11/17 at 14:30 Non-Formulary Medication 2 ea BID NASAL Last administered on 03/22/17 09:04; Admin Dose 2 EA; Start 03/11/17 at 15:31 Morphine Sulfate (morphine) 4 mg Q4H PRN IV PAIN LEVEL 7-10 Last administered on 03/22/17 15:04; Admin Dose 4 MG; Start 03/18/17 at 11:11 Hydralazine HCl (Apresoline) 10 mg Q4H PRN IV ELEVATED BLOOD PRESSURE Last administered on 03/20/17 06:36; Admin Dose 10 MG; Start 03/20/17 at 00:30 Lorazepam (Ativan) 1 mg Q4 PRN IV AGITATION/ANXIETY Last administered on 09:30; Admin Dose 1 MG; Start 03/20/17 at 00:30 TRAMAINE ELLSWORTH Mar 22, 2017 17:27
--- NOTE | 2017-03-22 18:36 | CONS ---
Date/Time of Note Date/Time of Note DATE: 03/22/17 TIME: 18:35 Assessment/Plan Assessment/Plan Chief Complaint/Hosp Course Lung cancer with ongoing chemotherapy. chemo on hold lung cancer relatively controlled based on recent CTs d/w situation with - she refused hospice SEVERE DECONDITIONING, POOR RS OVERALL PROGNOSIS- POOR Leukocytosis. Anemia. Thrombocytopenia-stable, cont to monitor DVT-RUE on eliquis Chest pain. Abnormal electrocardiogram with nonspecific ST and T-wave abnormalities Bradycardia, transient while on beta matthew. Hypotension-improved Shortness of [id number] PNA Renal failure-ongoing s CHF-worsening edema Problems: Consultation Date/Type/Reason Admit Date/Time Mar 10, 2017 at 23:35 Type of Consultation: hemeon Referring Provider: MARYAM FARMER MD 24 HR Interval Summary Free Text/Dictation ALL NOTED Exam/Review of Systems Vital Signs Vitals Vital Signs Date Time Temp Pulse Resp B/P Pulse Ox O2 Delivery O2 Flow Rate FiO2 03/22/17 17:13 4.0 03/22/17 16:10 90 03/22/17 15:41 98.0 18 138/63 97 03/22/17 08:00 Nasal Cannula 03/21/17 23:30 40 Intake and Output 03/21/17 03/21/17 03/22/17 15:00 23:00 07:00 Intake Total 900 ml 300 ml Balance 900 ml 300 ml Exam Constitutional: alert, oriented Head: normocephalic Neck: supple Respiratory: diminished breath sounds Cardiovascular: nl pulses Gastrointestinal: soft Extremities: edema Results Result Diagram: 03/22/17 0546 03/22/17 0546 Results 24 hrs Laboratory Tests Test 03/22/17 05:46 White Blood Count 5.2 Red Blood Count 3.14 L Hemoglobin 9.9 L Hematocrit 31.7 L Mean Corpuscular Volume 101.0 Mean Corpuscular Hemoglobin 31.5 Mean Corpuscular Hemoglobin Concent 31.2 L Red Cell Distribution Width 13.6 Platelet Count 181 Mean Platelet Volume 11.2 H Neutrophils % 64.7 Lymphocytes % 18.7 Monocytes % 12.0 H Eosinophils % 3.8 Basophils % 0.6 Nucleated Red Blood Cells % 0.0 Neutrophils # 3.4 Lymphocytes # 1.0 Monocytes # 0.6 Eosinophils # 0.2 Basophils # 0.0 Nucleated Red Blood Cells # 0.0 Sodium Level 142 Potassium Level 3.5 Chloride Level 95 L Carbon Dioxide Level 38 H Anion Gap 13 Blood Urea Nitrogen 16 Creatinine 1.24 Glucose Level 89 Calcium Level 8.8 Medications Medications Current Medications Ondansetron HCl (Zofran Inj) 4 mg Q6H PRN IV NAUSEA AND/OR VOMITING Last administered on 03/21/17 16:10; Admin Dose 4 MG; Start 03/11/17 at 12:30 Acetaminophen (Tylenol Tab) 650 mg Q6H PRN PO PAIN LEVEL 1-3 OR FEVER Last administered on 03/11/17 14:17; Admin Dose 650 MG; Start 03/11/17 at 12:30 Famotidine (Pepcid) 20 mg BID PO Last administered on 03/22/17 09:02; Admin Dose 20 MG; Start 03/11/17 at 21:00 Apixaban (Eliquis) 2.5 mg BID PO Last administered on 03/22/17 09:03; Admin Dose 2.5 MG; Start 03/11/17 at 21:00 Atorvastatin Calcium (Lipitor) 20 mg QHS PO Last administered on 03/21/17 20: 15; Admin Dose 20 MG; Start 03/11/17 at 21:00 Escitalopram Oxalate (Lexapro) 10 mg DAILY PO Last administered on 03/22/17 09:02; Admin Dose 10 MG; Start 03/12/17 at 09:00 Furosemide (Lasix) 40 mg BID@06,18 PO Last administered on 03/22/17 17:52; Admin Dose 40 MG; Start 03/11/17 at 18:00 Hydrocodone Bit/ Homatropine Methylb (Hycodan Liquid) 10 ml TID PO Last administered on 03/22/17 12:35; Admin Dose 10 ML; Start 03/11/17 at 21:00 Morphine Sulfate (Ms Contin (Er)) 15 mg BID PO Last administered on 03/22/17 08:10; Admin Dose 15 MG; Start 03/11/17 at 21:00 Pantoprazole (Protonix Tab) 40 mg DAILY@06 PO Last administered on 03/22/17 06:14; Admin Dose 40 MG; Start 03/12/17 at 06:00 Potassium Chloride (Klor-Con 20) 20 meq BID PO Last administered on 03/22/17 09:02; Admin Dose 20 MEQ; Start 03/11/17 at 21:00 Senna (Senokot) 1 tab DAILY PRN PO CONSTIPATION Last administered on 12:35; Admin Dose 1 TAB; Start 03/11/17 at 14:30 Non-Formulary Medication 2 ea BID NASAL Last administered on 03/22/17 09:04; Admin Dose 2 EA; Start 03/11/17 at 15:31 Morphine Sulfate (morphine) 4 mg Q4H PRN IV PAIN LEVEL 7-10 Last administered on 03/22/17 15:04; Admin Dose 4 MG; Start 03/18/17 at 11:11 Hydralazine HCl (Apresoline) 10 mg Q4H PRN IV ELEVATED BLOOD PRESSURE Last administered on 03/20/17 06:36; Admin Dose 10 MG; Start 03/20/17 at 00:30 Lorazepam (Ativan) 1 mg Q4 PRN IV AGITATION/ANXIETY Last administered on 09:30; Admin Dose 1 MG; Start 03/20/17 at 00:30 DAHIANA BABCOCK MD Mar 22, 2017 18:36
[2017-03-22] MEDS: ATORVASTATIN 20 MG TAB PO SCH (20:07)
[2017-03-23] VITALS (13 sets, daily range): BP systolic 104–167; BP diastolic 67–86; PULSE 87–99; RESP 16–18
[2017-03-23] MEDS: FUROSEMIDE 40 MG TAB PO SCH ×2 (06:24→17:53)
[2017-03-23] MEDS: LEVOTHYROXINE 75 MCG TAB PO SCH (06:24)
[2017-03-23] MEDS: PANTOPRAZOLE (EC) 40 MG TAB PO SCH (06:24)
[2017-03-23] MEDS: HYDROCODONE/HOMATROPINE 5ML CUP PO SCH ×3 (07:49→20:58)
[2017-03-23] MEDS: morphine (ER) 15 MG TAB PO SCH ×2 (07:49→20:57)
[2017-03-23] MEDS: DRONABINOL 2.5 MG CAP PO SCH ×3 (07:49→17:52)
[2017-03-23] MEDS: SPECIAL NON-STANDARD MEDICATION (BULK) NASAL SCH ×2 (09:00→21:06)
[2017-03-23] MEDS: ONDANSETRON 4 MG INJ IV PRN (09:59)
--- NOTE | 2017-03-23 10:01 | CONS ---
Date/Time of Note Date/Time of Note DATE: 03/23/17 TIME: 09:59 Assessment/Plan Assessment/Plan Additional Assessment/Plan Assessment recommendations; 1. Patient admitted with hypoxemic and hypercapnic respiratory failure due to extensively metastatic lung cancer with significant right lung involvement. 2. Left upper extremity DVT. 3. Mild renal insufficiency. 4. Mild anemia and thrombocytopenia. 5. Underlying COPD. Continue current treatment. Consider discharge. Overall prognosis remains poor. Consultation Date/Type/Reason Admit Date/Time Mar 10, 2017 at 23:35 Type of Consultation: Pulmonary Referring Provider: MARYAM FARMER MD 24 HR Interval Summary Free Text/Dictation Patient's condition is stable. Doing fairly well on 3 L nasal cannula. Still complains of cough with hemoptysis. Complains of shortness of breath upon minimal exertion. General exam; elderly male, currently no distress, awake and alert. Exam/Review of Systems Vital Signs Vitals Vital Signs Date Time Temp Pulse Resp B/P Pulse Ox O2 Delivery O2 Flow Rate FiO2 03/23/17 08:23 87 03/23/17 07:58 4.0 03/23/17 07:47 98.2 18 167/86 96 03/23/17 02:21 40 03/22/17 08:00 Nasal Cannula Intake and Output 03/22/17 03/22/17 03/23/17 15:00 23:00 07:00 Intake Total 600 ml 400 ml Output Total 500 ml Balance 100 ml 400 ml Exam HEENT exam; supple neck, no JVD. No lymphadenopathy. Midline trachea. No thyromegaly. Patient is alopecic. Has fair dentition. Chest exam; decreased breath sounds right lung. Left lung is clear to auscultation. S1-S2 audible, no murmurs. Regular rhythm. Abdomen exam; soft, nondistended. Protuberant. Bowel sounds audible. Extremity exam; no peripheral edema. No clubbing. LINE ORDERING CLINICIAN exam; no focal deficit. Results Result Diagram: 03/22/17 0546 03/22/17 0546 Medications Medications Current Medications Ondansetron HCl (Zofran Inj) 4 mg Q6H PRN IV NAUSEA AND/OR VOMITING Last administered on 03/21/17t 16:10; Admin Dose 4 MG; Start 03/11/17 at 12:30 Acetaminophen (Tylenol Tab) 650 mg Q6H PRN PO PAIN LEVEL 1-3 OR FEVER Last administered on 03/11/17 14:17; Admin Dose 650 MG; Start 03/11/17 at 12:30 Famotidine (Pepcid) 20 mg BID PO Last administered on 03/22/17 20:07; Admin Dose 20 MG; Start 03/11/17 at 21:00 Apixaban (Eliquis) 2.5 mg BID PO Last administered on 03/22/17 20:06; Admin Dose 2.5 MG; Start 03/11/17 at 21:00 Atorvastatin Calcium (Lipitor) 20 mg QHS PO Last administered on 03/22/17 20: 07; Admin Dose 20 MG; Start 03/11/17 at 21:00 Escitalopram Oxalate (Lexapro) 10 mg DAILY PO Last administered on 03/22/17 09:02; Admin Dose 10 MG; Start 03/12/17 at 09:00 Furosemide (Lasix) 40 mg BID@06,18 PO Last administered on 03/23/17 06:24; Admin Dose 40 MG; Start 03/11/17 at 18:00 Hydrocodone Bit/ Homatropine Methylb (Hycodan Liquid) 10 ml TID PO Last administered on 03/23/17 07:49; Admin Dose 10 ML; Start 03/11/17 at 21:00 Morphine Sulfate (Ms Contin (Er)) 15 mg BID PO Last administered on 03/23/17 07:49; Admin Dose 15 MG; Start 03/11/17 at 21:00 Pantoprazole (Protonix Tab) 40 mg DAILY@06 PO Last administered on 03/23/17 06:24; Admin Dose 40 MG; Start 03/12/17 at 06:00 Potassium Chloride (Klor-Con 20) 20 meq BID PO Last administered on 03/22/17 20:08; Admin Dose 20 MEQ; Start 03/11/17 at 21:00 Senna (Senokot) 1 tab DAILY PRN PO CONSTIPATION Last administered on 12:35; Admin Dose 1 TAB; Start 03/11/17 at 14:30 Non-Formulary Medication 2 ea BID NASAL Last administered on 03/22/17 09:04; Admin Dose 2 EA; Start 03/11/17 at 15:31 Morphine Sulfate (morphine) 4 mg Q4H PRN IV PAIN LEVEL 7-10 Last administered on 03/22/17 20:08; Admin Dose 4 MG; Start 03/18/17 at 11:11 Hydralazine HCl (Apresoline) 10 mg Q4H PRN IV ELEVATED BLOOD PRESSURE Last administered on 03/20/17 06:36; Admin Dose 10 MG; Start 03/20/17 at 00:30 Lorazepam (Ativan) 1 mg Q4 PRN IV AGITATION/ANXIETY Last administered on 09:30; Admin Dose 1 MG; Start 03/20/17 at 00:30 ISMA CUTLER Mar 23, 2017 10:01
[2017-03-23] MEDS: ESCITALOPRAM 10 MG TAB PO SCH (11:58)
[2017-03-23] MEDS: POTASSIUM CHLORIDE (SR) 20 MEQ TAB PO SCH ×2 (11:58→20:56)
[2017-03-23] MEDS: FAMOTIDINE 20 MG TAB PO SCH ×2 (11:59→20:57)
[2017-03-23] MEDS: APIXABAN 5 MG TABLET PO SCH ×2 (11:59→20:56)
--- NOTE | 2017-03-23 12:50 | CONS ---
Date/Time of Note Date/Time of Note DATE: 03/23/17 TIME: 12:50 Assessment/Plan Assessment/Plan Chief Complaint/Hosp Course Lung cancer with ongoing chemotherapy. chemo on hold lung cancer relatively controlled based on recent CTs d/w situation with - she refused hospice POS HOME ON [facility] SEVERE DECONDITIONING, POOR RS OVERALL PROGNOSIS- LIMITED Leukocytosis. Anemia. Thrombocytopenia-stable, cont to monitor DVT-RUE on eliquis Chest pain. Abnormal electrocardiogram with nonspecific ST and T-wave abnormalities Bradycardia, transient while on beta matthew. Hypotension-improved Shortness of [id number] PNA Renal failure-ongoing s CHF-worsening edema Problems: Consultation Date/Type/Reason Admit Date/Time Mar 10, 2017 at 23:35 Type of Consultation: hemeon Referring Provider: MARYAM FARMER MD 24 HR Interval Summary Free Text/Dictation weak Exam/Review of Systems Vital Signs Vitals Vital Signs Date Time Temp Pulse Resp B/P Pulse Ox O2 Delivery O2 Flow Rate FiO2 03/23/17 12:22 90 03/23/17 11:56 98.1 16 112/71 99 03/23/17 08:00 Nasal Cannula 4.0 03/23/17 02:21 40 Intake and Output 03/22/17 03/22/17 03/23/17 15:00 23:00 07:00 Intake Total 600 ml 400 ml Output Total 500 ml Balance 100 ml 400 ml Exam Constitutional: alert, oriented Head: normocephalic Neck: supple Respiratory: diminished breath sounds Cardiovascular: nl pulses Gastrointestinal: soft Extremities: edema Results Result Diagram: 03/23/1729 03/23/17 09 Results 24 hrs Laboratory Tests Test 03/23/17 09:29 White Blood Count 6.8 # Red Blood Count 3.49 L Hemoglobin 10.8 L Hematocrit 35.1 L Mean Corpuscular Volume 100.6 Mean Corpuscular Hemoglobin 30.9 Mean Corpuscular Hemoglobin Concent 30.8 L Red Cell Distribution Width 13.4 Platelet Count 199 Mean Platelet Volume 11.3 H Neutrophils % 72.7 Lymphocytes % 14.7 L Monocytes % 9.2 Eosinophils % 2.9 Basophils % 0.4 Nucleated Red Blood Cells % 0.0 Neutrophils # 5.0 Lymphocytes # 1.0 Monocytes # 0.6 Eosinophils # 0.2 Basophils # 0.0 Nucleated Red Blood Cells # 0.0 Sodium Level 140 Potassium Level 3.6 Chloride Level 92 L Carbon Dioxide Level 37 H Anion Gap 15 Blood Urea Nitrogen 17 Creatinine 1.24 Glucose Level 106 Calcium Level 9.1 Medications Medications Current Medications Ondansetron HCl (Zofran Inj) 4 mg Q6H PRN IV NAUSEA AND/OR VOMITING Last administered on 03/23/17 09:59; Admin Dose 4 MG; Start 03/11/17 at 12:30 Acetaminophen (Tylenol Tab) 650 mg Q6H PRN PO PAIN LEVEL 1-3 OR FEVER Last administered on 03/11/17 14:17; Admin Dose 650 MG; Start 03/11/17 at 12:30 Famotidine (Pepcid) 20 mg BID PO Last administered on 03/23/17 11:59; Admin Dose 20 MG; Start 03/11/17 at 21:00 Apixaban (Eliquis) 2.5 mg BID PO Last administered on 03/23/17 11:59; Admin Dose 2.5 MG; Start 03/11/17 at 21:00 Atorvastatin Calcium (Lipitor) 20 mg QHS PO Last administered on 03/22/17 20: 07; Admin Dose 20 MG; Start 03/11/17 at 21:00 Escitalopram Oxalate (Lexapro) 10 mg DAILY PO Last administered on 03/23/17 11:58; Admin Dose 10 MG; Start 03/12/17 at 09:00 Furosemide (Lasix) 40 mg BID@06,18 PO Last administered on 03/23/17 06:24; Admin Dose 40 MG; Start 03/11/17 at 18:00 Hydrocodone Bit/ Homatropine Methylb (Hycodan Liquid) 10 ml TID PO Last administered on 03/23/17 07:49; Admin Dose 10 ML; Start 03/11/17 at 21:00 Morphine Sulfate (Ms Contin (Er)) 15 mg BID PO Last administered on 03/23/17 07:49; Admin Dose 15 MG; Start 03/11/17 at 21:00 Pantoprazole (Protonix Tab) 40 mg DAILY@06 PO Last administered on 03/23/17 06:24; Admin Dose 40 MG; Start 03/12/17 at 06:00 Potassium Chloride (Klor-Con 20) 20 meq BID PO Last administered on 03/23/17 11:58; Admin Dose 20 MEQ; Start 03/11/17 at 21:00 Senna (Senokot) 1 tab DAILY PRN PO CONSTIPATION Last administered on 12:35; Admin Dose 1 TAB; Start 03/11/17 at 14:30 Non-Formulary Medication 2 ea BID NASAL Last administered on 03/22/17 09:04; Admin Dose 2 EA; Start 03/11/17 at 15:31 Morphine Sulfate (morphine) 4 mg Q4H PRN IV PAIN LEVEL 7-10 Last administered on 03/22/17 20:08; Admin Dose 4 MG; Start 03/18/17 at 11:11 Hydralazine HCl (Apresoline) 10 mg Q4H PRN IV ELEVATED BLOOD PRESSURE Last administered on 03/20/17 06:36; Admin Dose 10 MG; Start 03/20/17 at 00:30 Lorazepam (Ativan) 1 mg Q4 PRN IV AGITATION/ANXIETY Last administered on 09:30; Admin Dose 1 MG; Start 03/20/17 at 00:30 DAHIANA BABCOCK MD Mar 23, 2017 12:50
[2017-03-23] MEDS: morphine 4 MG/ML VIAL IV PRN ×2 (15:29→23:54)
--- NOTE | 2017-03-23 18:57 | PN ---
Date/Time of Note Date/Time of Note DATE: 03/23/17 TIME: 18:56 Assessment/Plan VTE Prophylaxis VTE Prophylaxis Intervention: SCD's Lines/Catheters [facility] Saline Lock Urinary Cath still in place: No Assessment/Plan Chief Complaint/Hosp Course Assessment/Plan - Hypercapnic respiratory failure due to advanced lung malignancy with almost complete whiteout of the right lung. Dr. Philip is following in pulmonology consultation - Advanced non-small cell lung CA, Dr. Scanlon is following in oncology consultation. - Nonocclusive deep venous thrombosis bilateral upper extremities. Continue Eliquis. - Acute on chronic diastolic congestive heart failure, continue gentle diuresis , continue to monitor electrolytes. - h/o fungal pneumonia, on maintenance voriconazole - CAD, continue aspirin. - Hyperlipidemia, continue statin - Hypothyroidism, continue levothyroxine. - Paroxysmal atrial fibrillation, controlled rate, patient is continued on Eliquis. - COPD - Obesity with BMI 42 - Status post treatment for postobstructive pneumonia and paronychia Further recommendations based on clinical course. Plan of care discussed with Dr. Lincoln. Problems: Exam/Review of Systems Vital Signs Vitals Vital Signs Date Time Temp Pulse Resp B/P Pulse Ox O2 Delivery O2 Flow Rate FiO2 03/23/17 16:39 87 03/23/17 16:00 98.1 16 104/85 96 03/23/17 08:00 Nasal Cannula 4.0 03/23/17 02:21 40 Intake and Output 03/22/17 03/22/17 03/23/17 15:00 23:00 07:00 Intake Total 600 ml 400 ml Output Total 500 ml Balance 100 ml 400 ml Exam Constitutional: alert, oriented Head: normocephalic Neck: supple Respiratory: diminished breath sounds Cardiovascular: nl pulses Gastrointestinal: soft Extremities: edema Results Result Diagram: 03/23/1792803/23/17928 Results 24 hrs Laboratory Tests Test 03/23/17 09:29 White Blood Count 6.8 # Red Blood Count 3.49 L Hemoglobin 10.8 L Hematocrit 35.1 L Mean Corpuscular Volume 100.6 Mean Corpuscular Hemoglobin 30.9 Mean Corpuscular Hemoglobin Concent 30.8 L Red Cell Distribution Width 13.4 Platelet Count 199 Mean Platelet Volume 11.3 H Neutrophils % 72.7 Lymphocytes % 14.7 L Monocytes % 9.2 Eosinophils % 2.9 Basophils % 0.4 Nucleated Red Blood Cells % 0.0 Neutrophils # 5.0 Lymphocytes # 1.0 Monocytes # 0.6 Eosinophils # 0.2 Basophils # 0.0 Nucleated Red Blood Cells # 0.0 Sodium Level 140 Potassium Level 3.6 Chloride Level 92 L Carbon Dioxide Level 37 H Anion Gap 15 Blood Urea Nitrogen 17 Creatinine 1.24 Glucose Level 106 Calcium Level 9.1 Medications Medications Current Medications Ondansetron HCl (Zofran Inj) 4 mg Q6H PRN IV NAUSEA AND/OR VOMITING Last administered on 03/23/17 09:59; Admin Dose 4 MG; Start 03/11/17 at 12:30 Acetaminophen (Tylenol Tab) 650 mg Q6H PRN PO PAIN LEVEL 1-3 OR FEVER Last administered on 03/11/17 14:17; Admin Dose 650 MG; Start 03/11/17 at 12:30 Famotidine (Pepcid) 20 mg BID PO Last administered on 03/23/17 11:59; Admin Dose 20 MG; Start 03/11/17 at 21:00 Apixaban (Eliquis) 2.5 mg BID PO Last administered on 03/23/17 11:59; Admin Dose 2.5 MG; Start 03/11/17 at 21:00 Atorvastatin Calcium (Lipitor) 20 mg QHS PO Last administered on 03/22/17 20: 07; Admin Dose 20 MG; Start 03/11/17 at 21:00 Escitalopram Oxalate (Lexapro) 10 mg DAILY PO Last administered on 03/23/17 11:58; Admin Dose 10 MG; Start 03/12/17 at 09:00 Furosemide (Lasix) 40 mg BID@,18 PO Last administered on 03/23/17 17:53; Admin Dose 40 MG; Start 03/11/17 at 18:00 Hydrocodone Bit/ Homatropine Methylb (Hycodan Liquid) 10 ml TID PO Last administered on 03/23/17 13:33; Admin Dose 10 ML; Start 03/11/17 at 21:00 Morphine Sulfate (Ms Contin (Er)) 15 mg BID PO Last administered on 03/23/17 07:49; Admin Dose 15 MG; Start 03/11/17 at 21:00 Pantoprazole (Protonix Tab) 40 mg DAILY@06 PO Last administered on 03/23/17 06:24; Admin Dose 40 MG; Start 03/12/17 at 06:00 Potassium Chloride (Klor-Con 20) 20 meq BID PO Last administered on 03/23/17 11:58; Admin Dose 20 MEQ; Start 03/11/17 at 21:00 Senna (Senokot) 1 tab DAILY PRN PO CONSTIPATION Last administered on 12:35; Admin Dose 1 TAB; Start 03/11/17 at 14:30 Non-Formulary Medication 2 ea BID NASAL Last administered on 03/22/17 09:04; Admin Dose 2 EA; Start 03/11/17 at 15:31 Morphine Sulfate (morphine) 4 mg Q4H PRN IV PAIN LEVEL 7-10 Last administered on 03/23/17 15:29; Admin Dose 4 MG; Start 03/18/17 at 11:11 Hydralazine HCl (Apresoline) 10 mg Q4H PRN IV ELEVATED BLOOD PRESSURE Last administered on 03/20/17 06:36; Admin Dose 10 MG; Start 03/20/17 at 00:30 Lorazepam (Ativan) 1 mg Q4 PRN IV AGITATION/ANXIETY Last administered on 09:30; Admin Dose 1 MG; Start 03/20/17 at 00:30 LUBA EARLY Mar 23, 2017 18:57
[2017-03-23] MEDS: ATORVASTATIN 20 MG TAB PO SCH (20:56)
[2017-03-24] VITALS (14 sets, daily range): BP systolic 109–144; BP diastolic 66–76; PULSE 84–95; RESP 18–20
[2017-03-24] MEDS: PANTOPRAZOLE (EC) 40 MG TAB PO SCH (06:33)
[2017-03-24] MEDS: FUROSEMIDE 40 MG TAB PO SCH ×2 (06:37→17:10)
[2017-03-24] MEDS: FAMOTIDINE 20 MG TAB PO SCH ×2 (09:09→21:06)
[2017-03-24] MEDS: ESCITALOPRAM 10 MG TAB PO SCH (09:09)
[2017-03-24] MEDS: LEVOTHYROXINE 75 MCG TAB PO SCH (09:09)
[2017-03-24] MEDS: DRONABINOL 2.5 MG CAP PO SCH ×3 (09:09→17:10)
[2017-03-24] MEDS: morphine (ER) 15 MG TAB PO SCH ×2 (09:09→21:06)
[2017-03-24] MEDS: SPECIAL NON-STANDARD MEDICATION (BULK) NASAL SCH ×2 (09:10→21:22)
[2017-03-24] MEDS: APIXABAN 5 MG TABLET PO SCH ×2 (09:10→21:06)
[2017-03-24] MEDS: POTASSIUM CHLORIDE (SR) 20 MEQ TAB PO SCH ×2 (09:10→21:05)
[2017-03-24] MEDS: HYDROCODONE/HOMATROPINE 5ML CUP PO SCH ×3 (09:26→21:21)
[2017-03-24] MEDS: ONDANSETRON 4 MG INJ IV PRN (09:32)
--- NOTE | 2017-03-24 10:54 | PN ---
Date/Time of Note Date/Time of Note DATE: 03/24/17 TIME: 10:54 Assessment/Plan VTE Prophylaxis VTE Prophylaxis Intervention: other Lines/Catheters [facility] Type [facility] Saline Lock Urinary Cath still in place: No Assessment/Plan Chief Complaint/Hosp Course - Hypercapnic respiratory failure due to advanced lung malignancy with almost complete whiteout of the right lung. Dr. Philip is following in pulmonology consultation - Advanced non-small cell lung CA, Dr. Scanlon is following in oncology consultation. - Nonocclusive deep venous thrombosis bilateral upper extremities. Continue Eliquis. - Acute on chronic diastolic congestive heart failure, continue gentle diuresis , continue to monitor electrolytes. - h/o fungal pneumonia, on maintenance voriconazole - CAD, continue aspirin. - Hyperlipidemia, continue statin - Hypothyroidism, continue levothyroxine. - Paroxysmal atrial fibrillation, controlled rate, patient is continued on Eliquis. - COPD - Obesity with BMI 42 - Status post treatment for postobstructive pneumonia and paronychia Problems: Subjective 24 Hr Interval Summary Free Text/Dictation Patient resting, no complaints Exam/Review of Systems Vital Signs Vitals Vital Signs Date Time Temp Pulse Resp B/P Pulse Ox O2 Delivery O2 Flow Rate FiO2 03/24/17 08:17 86 03/24/17 08:00 Nasal Cannula 4.0 03/24/17 07:52 98.0 18 143/66 97 03/24/17 03:00 40 Intake and Output 03/23/17 03/23/17 03/24/17 15:00 23:00 07:00 Intake Total 500 ml Output Total 750 ml Balance -250 ml Exam Constitutional: well developed Head: atraumatic, normocephalic Neck: supple Respiratory: diminished breath sounds Cardiovascular: regular rate and rhythm Gastrointestinal: non-tender, soft Extremities: normal pulses Results Result Diagram: 03/24/17 0746 03/24/17 0746 Results 24 hrs Laboratory Tests Test 03/24/17 07:46 White Blood Count 6.4 Red Blood Count 3.52 L Hemoglobin 11.3 L Hematocrit 35.6 L Mean Corpuscular Volume 101.1 H Mean Corpuscular Hemoglobin 32.1 Mean Corpuscular Hemoglobin Concent 31.7 L Red Cell Distribution Width 13.2 Platelet Count 185 Mean Platelet Volume 11.0 H Neutrophils % 62.6 Lymphocytes % 23.9 Monocytes % 9.4 Eosinophils % 3.6 Basophils % 0.3 Nucleated Red Blood Cells % 0.0 Neutrophils # 4.0 Lymphocytes # 1.5 Monocytes # 0.6 Eosinophils # 0.2 Basophils # 0.0 Nucleated Red Blood Cells # 0.0 Sodium Level 141 Potassium Level 3.5 Chloride Level 94 L Carbon Dioxide Level 35 H Anion Gap 16 Blood Urea Nitrogen 17 Creatinine 1.19 Glucose Level 93 Calcium Level 9.1 Medications Medications Current Medications Ondansetron HCl (Zofran Inj) 4 mg Q6H PRN IV NAUSEA AND/OR VOMITING Last administered on 03/24/17 09:32; Admin Dose 4 MG; Start 03/11/17 at 12:30 Acetaminophen (Tylenol Tab) 650 mg Q6H PRN PO PAIN LEVEL 1-3 OR FEVER Last administered on 03/11/17 14:17; Admin Dose 650 MG; Start 03/11/17 at 12:30 Famotidine (Pepcid) 20 mg BID PO Last administered on 03/24/17 09:09; Admin Dose 20 MG; Start 03/11/17 at 21:00 Apixaban (Eliquis) 2.5 mg BID PO Last administered on 03/24/17 09:10; Admin Dose 2.5 MG; Start 03/11/17 at 21:00 Atorvastatin Calcium (Lipitor) 20 mg QHS PO Last administered on 03/23/17 20: 56; Admin Dose 20 MG; Start 03/11/17 at 21:00 Escitalopram Oxalate (Lexapro) 10 mg DAILY PO Last administered on 03/24/17 09:09; Admin Dose 10 MG; Start 03/12/17 at 09:00 Furosemide (Lasix) 40 mg BID@06,18 PO Last administered on 03/24/17 06:37; Admin Dose 40 MG; Start 03/11/17 at 18:00 Hydrocodone Bit/ Homatropine Methylb (Hycodan Liquid) 10 ml TID PO Last administered on 03/24/17 09:26; Admin Dose 10 ML; Start 03/11/17 at 21:00 Morphine Sulfate (Ms Contin (Er)) 15 mg BID PO Last administered on 03/24/17 09:09; Admin Dose 15 MG; Start 03/11/17 at 21:00 Pantoprazole (Protonix Tab) 40 mg DAILY@06 PO Last administered on 03/24/17 06:33; Admin Dose 40 MG; Start 03/12/17 at 06:00 Potassium Chloride (Klor-Con 20) 20 meq BID PO Last administered on 03/24/17 09:10; Admin Dose 20 MEQ; Start 03/11/17 at 21:00 Senna (Senokot) 1 tab DAILY PRN PO CONSTIPATION Last administered on 12:35; Admin Dose 1 TAB; Start 03/11/17 at 14:30 Non-Formulary Medication 2 ea BID NASAL Last administered on 03/24/17 09:10; Admin Dose 2 EA; Start 03/11/17 at 15:31 Morphine Sulfate (morphine) 4 mg Q4H PRN IV PAIN LEVEL 7-10 Last administered on 03/23/17 23:54; Admin Dose 4 MG; Start 03/18/17 at 11:11 Hydralazine HCl (Apresoline) 10 mg Q4H PRN IV ELEVATED BLOOD PRESSURE Last administered on 03/20/17 06:36; Admin Dose 10 MG; Start 03/20/17 at 00:30 Lorazepam (Ativan) 1 mg Q4 PRN IV AGITATION/ANXIETY Last administered on 09:30; Admin Dose 1 MG; Start 03/20/17 at 00:30 SQAIB DAVIS Mar 24, 2017 10:54
[2017-03-24] MEDS: morphine 4 MG/ML VIAL IV PRN ×2 (13:25→19:09)
--- NOTE | 2017-03-24 13:27 | CONS ---
Date/Time of Note Date/Time of Note DATE: 03/24/17 TIME: 13:27 Assessment/Plan Assessment/Plan Chief Complaint/Hosp Course Lung cancer with ongoing chemotherapy. chemo on hold lung cancer relatively controlled based on recent CTs d/w situation with - she refused hospice POS HOME ON MOND SEVERE DECONDITIONING, POOR RS OVERALL PROGNOSIS- LIMITED Leukocytosis. Anemia. Thrombocytopenia-stable, cont to monitor DVT-RUE on eliquis Chest pain. Abnormal electrocardiogram with nonspecific ST and T-wave abnormalities Bradycardia, transient while on beta matthew. Hypotension-improved Shortness of [id number] PNA Renal failure-ongoing s CHF-worsening edema Problems: Consultation Date/Type/Reason Admit Date/Time Mar 10, 2017 at 23:35 Type of Consultation: hemeon Referring Provider: MARYAM FARMER MD 24 HR Interval Summary Free Text/Dictation WEAK Exam/Review of Systems Vital Signs Vitals Vital Signs Date Time Temp Pulse Resp B/P Pulse Ox O2 Delivery O2 Flow Rate FiO2 03/24/17 12:21 84 03/24/17 11:55 98.0 20 144/66 99 03/24/17 08:00 Nasal Cannula 4.0 03/24/17 03:00 40 Intake and Output 03/23/17 03/23/17 03/24/17 15:00 23:00 07:00 Intake Total 500 ml Output Total 750 ml Balance -250 ml Exam Constitutional: alert, oriented Head: normocephalic Neck: supple Respiratory: diminished breath sounds Cardiovascular: nl pulses Gastrointestinal: soft Extremities: edema Results Result Diagram: 03/24/17 0746 03/24/17 0746 Results 24 hrs Laboratory Tests Test 03/24/17 07:46 White Blood Count 6.4 Red Blood Count 3.52 L Hemoglobin 11.3 L Hematocrit 35.6 L Mean Corpuscular Volume 101.1 H Mean Corpuscular Hemoglobin 32.1 Mean Corpuscular Hemoglobin Concent 31.7 L Red Cell Distribution Width 13.2 Platelet Count 185 Mean Platelet Volume 11.0 H Neutrophils % 62.6 Lymphocytes % 23.9 Monocytes % 9.4 Eosinophils % 3.6 Basophils % 0.3 Nucleated Red Blood Cells % 0.0 Neutrophils # 4.0 Lymphocytes # 1.5 Monocytes # 0.6 Eosinophils # 0.2 Basophils # 0.0 Nucleated Red Blood Cells # 0.0 Sodium Level 141 Potassium Level 3.5 Chloride Level 94 L Carbon Dioxide Level 35 H Anion Gap 16 Blood Urea Nitrogen 17 Creatinine 1.19 Glucose Level 93 Calcium Level 9.1 Medications Medications Current Medications Ondansetron HCl (Zofran Inj) 4 mg Q6H PRN IV NAUSEA AND/OR VOMITING Last administered on 03/24/17 09:32; Admin Dose 4 MG; Start 03/11/17 at 12:30 Acetaminophen (Tylenol Tab) 650 mg Q6H PRN PO PAIN LEVEL 1-3 OR FEVER Last administered on 03/11/17 14:17; Admin Dose 650 MG; Start 03/11/17 at 12:30 Famotidine (Pepcid) 20 mg BID PO Last administered on 03/24/17 09:09; Admin Dose 20 MG; Start 03/11/17 at 21:00 Apixaban (Eliquis) 2.5 mg BID PO Last administered on 03/24/17 09:10; Admin Dose 2.5 MG; Start 03/11/17 at 21:00 Atorvastatin Calcium (Lipitor) 20 mg QHS PO Last administered on 03/23/17 20: 56; Admin Dose 20 MG; Start 03/11/17 at 21:00 Escitalopram Oxalate (Lexapro) 10 mg DAILY PO Last administered on 03/24/17 09:09; Admin Dose 10 MG; Start 03/12/17 at 09:00 Furosemide (Lasix) 40 mg BID@06,18 PO Last administered on 03/24/17 06:37; Admin Dose 40 MG; Start 03/11/17 at 18:00 Hydrocodone Bit/ Homatropine Methylb (Hycodan Liquid) 10 ml TID PO Last administered on 03/24/17 12:14; Admin Dose 10 ML; Start 03/11/17 at 21:00 Morphine Sulfate (Ms Contin (Er)) 15 mg BID PO Last administered on 03/24/17 09:09; Admin Dose 15 MG; Start 03/11/17 at 21:00 Pantoprazole (Protonix Tab) 40 mg DAILY@06 PO Last administered on 03/24/17 06:33; Admin Dose 40 MG; Start 03/12/17 at 06:00 Potassium Chloride (Klor-Con 20) 20 meq BID PO Last administered on 03/24/17 09:10; Admin Dose 20 MEQ; Start 03/11/17 at 21:00 Senna (Senokot) 1 tab DAILY PRN PO CONSTIPATION Last administered on 12:35; Admin Dose 1 TAB; Start 03/11/17 at 14:30 Non-Formulary Medication 2 ea BID NASAL Last administered on 03/24/17 09:10; Admin Dose 2 EA; Start 03/11/17 at 15:31 Morphine Sulfate (morphine) 4 mg Q4H PRN IV PAIN LEVEL 7-10 Last administered on 03/24/17 13:25; Admin Dose 4 MG; Start 03/18/17 at 11:11 Hydralazine HCl (Apresoline) 10 mg Q4H PRN IV ELEVATED BLOOD PRESSURE Last administered on 03/20/17 06:36; Admin Dose 10 MG; Start 03/20/17 at 00:30 Lorazepam (Ativan) 1 mg Q4 PRN IV AGITATION/ANXIETY Last administered on 09:30; Admin Dose 1 MG; Start 03/20/17 at 00:30 DAHIANA BABCOCK MD Mar 24, 2017 13:27
[2017-03-24] MEDS: ATORVASTATIN 20 MG TAB PO SCH (21:05)
[2017-03-25] VITALS (16 sets, daily range): BP systolic 90–151; BP diastolic 66–92; PULSE 84–96; RESP 18
[2017-03-25] MEDS: morphine 4 MG/ML VIAL IV PRN ×5 (00:47→22:53)
[2017-03-25] MEDS: LORAZEPAM 2 MG INJ IV PRN ×2 (03:35→12:30)
[2017-03-25] MEDS ORDERED: LIDOCAINE 2% VISC 15 ML CUP PO PRN (05:30)
[2017-03-25] MEDS ORDERED: CEPASTAT LOZENGE MT PRN (05:30)
[2017-03-25] MEDS: FUROSEMIDE 40 MG TAB PO SCH ×2 (06:23→18:15)
[2017-03-25] MEDS: PANTOPRAZOLE (EC) 40 MG TAB PO SCH (06:23)
[2017-03-25] MEDS: ESCITALOPRAM 10 MG TAB PO SCH (08:48)
[2017-03-25] MEDS: morphine (ER) 15 MG TAB PO SCH ×2 (08:48→20:39)
[2017-03-25] MEDS: DRONABINOL 2.5 MG CAP PO SCH ×3 (08:48→18:14)
[2017-03-25] MEDS: FAMOTIDINE 20 MG TAB PO SCH ×2 (08:48→20:39)
[2017-03-25] MEDS: POTASSIUM CHLORIDE (SR) 20 MEQ TAB PO SCH ×2 (08:48→20:39)
[2017-03-25] MEDS: HYDROCODONE/HOMATROPINE 5ML CUP PO SCH ×3 (08:48→20:39)
[2017-03-25] MEDS: APIXABAN 5 MG TABLET PO SCH ×2 (08:48→20:40)
[2017-03-25] MEDS: LEVOTHYROXINE 75 MCG TAB PO SCH (08:49)
[2017-03-25] MEDS: SPECIAL NON-STANDARD MEDICATION (BULK) NASAL SCH ×2 (08:49→20:36)
--- NOTE | 2017-03-25 11:32 | PN ---
Date/Time of Note Date/Time of Note DATE: 03/25/17 TIME: 11:32 Assessment/Plan VTE Prophylaxis VTE Prophylaxis Intervention: other Lines/Catheters IV [facility] Type [facility]from [facility] Saline Lock Urinary Cath still in place: No Assessment/Plan Chief Complaint/Hosp Course - Hypercapnic respiratory failure due to advanced lung malignancy with almost complete whiteout of the right lung. Dr. Philip is following in pulmonology consultation - Advanced non-small cell lung CA, Dr. Scanlon is following in oncology consultation. - Nonocclusive deep venous thrombosis bilateral upper extremities. Continue Eliquis. - Acute on chronic diastolic congestive heart failure, continue gentle diuresis , continue to monitor electrolytes. - h/o fungal pneumonia, on maintenance voriconazole - CAD, continue aspirin. - Hyperlipidemia, continue statin - Hypothyroidism, continue levothyroxine. - Paroxysmal atrial fibrillation, controlled rate, patient is continued on Eliquis. - COPD - Obesity with BMI 42 - Status post treatment for postobstructive pneumonia and paronychia Problems: Subjective 24 Hr Interval Summary Free Text/Dictation Patient denies any complaints Exam/Review of Systems Vital Signs Vitals Vital Signs Date Time Temp Pulse Resp B/P Pulse Ox O2 Delivery O2 Flow Rate FiO2 03/25/17 08:27 98.3 88 18 125/83 99 03/25/17 03:17 40 03/25/17 01:01 4.0 03/24/17 08:00 Nasal Cannula Intake and Output 03/24/17 03/24/17 03/25/17 15:00 23:00 07:00 Intake Total 500 ml Output Total 800 ml Balance -300 ml Exam Constitutional: well developed Head: atraumatic, normocephalic Neck: supple Respiratory: diminished breath sounds Cardiovascular: regular rate and rhythm Gastrointestinal: non-tender, soft Extremities: normal pulses Results Result Diagram: 03/24/17 0746 03/24/17 0746 Medications Medications Current Medications Ondansetron HCl (Zofran Inj) 4 mg Q6H PRN IV NAUSEA AND/OR VOMITING Last administered on 03/24/17 09:32; Admin Dose 4 MG; Start 03/11/17 at 12:30 Acetaminophen (Tylenol Tab) 650 mg Q6H PRN PO PAIN LEVEL 1-3 OR FEVER Last administered on 03/11/17 14:17; Admin Dose 650 MG; Start 03/11/17 at 12:30 Famotidine (Pepcid) 20 mg BID PO Last administered on 03/25/17 08:48; Admin Dose 20 MG; Start 03/11/17 at 21:00 Apixaban (Eliquis) 2.5 mg BID PO Last administered on 03/25/17 08:48; Admin Dose 2.5 MG; Start 03/11/17 at 21:00 Atorvastatin Calcium (Lipitor) 20 mg QHS PO Last administered on 03/24/17 21: 05; Admin Dose 20 MG; Start 03/11/17 at 21:00 Escitalopram Oxalate (Lexapro) 10 mg DAILY PO Last administered on 03/25/17 08:48; Admin Dose 10 MG; Start 03/12/17 at 09:00 Furosemide (Lasix) 40 mg BID@06,18 PO Last administered on 03/25/17 06:23; Admin Dose 40 MG; Start 03/11/17 at 18:00 Hydrocodone Bit/ Homatropine Methylb (Hycodan Liquid) 10 ml TID PO Last administered on 03/25/17 08:48; Admin Dose 10 ML; Start 03/11/17 at 21:00 Morphine Sulfate (Ms Contin (Er)) 15 mg BID PO Last administered on 03/25/17 08:48; Admin Dose 15 MG; Start 03/11/17 at 21:00 Pantoprazole (Protonix Tab) 40 mg DAILY@06 PO Last administered on 03/25/17 06:23; Admin Dose 40 MG; Start 03/12/17 at 06:00 Potassium Chloride (Klor-Con 20) 20 meq BID PO Last administered on 03/25/17 08:48; Admin Dose 20 MEQ; Start 03/11/17 at 21:00 Senna (Senokot) 1 tab DAILY PRN PO CONSTIPATION Last administered on 12:35; Admin Dose 1 TAB; Start 03/11/17 at 14:30 Non-Formulary Medication 2 ea BID NASAL Last administered on 03/25/17 08:49; Admin Dose 2 EA; Start 03/11/17 at 15:31 Morphine Sulfate (morphine) 4 mg Q4H PRN IV PAIN LEVEL 7-10 Last administered on 03/25/17 10:40; Admin Dose 4 MG; Start 03/18/17 at 11:11 Hydralazine HCl (Apresoline) 10 mg Q4H PRN IV ELEVATED BLOOD PRESSURE Last administered on 03/20/17 06:36; Admin Dose 10 MG; Start 03/20/17 at 00:30 Lorazepam (Ativan) 1 mg Q4 PRN IV AGITATION/ANXIETY Last administered on 03:35; Admin Dose 1 MG; Start 03/20/17 at 00:30 SAQIB DAVIS Mar 25, 2017 11:32
--- NOTE | 2017-03-25 20:10 | CONS ---
Date/Time of Note Date/Time of Note DATE: 03/25/17 TIME: 20:10 Assessment/Plan Assessment/Plan Chief Complaint/Hosp Course Lung cancer with ongoing chemotherapy. chemo on hold lung cancer relatively controlled based on recent CTs d/w situation with - she refused hospice POS HOME ON MOND SEVERE DECONDITIONING, POOR RS OVERALL PROGNOSIS- LIMITED Leukocytosis. Anemia. Thrombocytopenia-stable, cont to monitor DVT-RUE on eliquis Chest pain. Abnormal electrocardiogram with nonspecific ST and T-wave abnormalities Bradycardia, transient while on beta matthew. Hypotension-improved Shortness of [id number] PNA Renal failure-ongoing s CHF-worsening edema Problems: Consultation Date/Type/Reason Admit Date/Time Mar 10, 2017 at 23:35 Type of Consultation: hemeon Referring Provider: MARYAM FARMER MD 24 HR Interval Summary Free Text/Dictation WEAK IN BED Exam/Review of Systems Vital Signs Vitals Vital Signs Date Time Temp Pulse Resp B/P Pulse Ox O2 Delivery O2 Flow Rate FiO2 03/25/17 19:38 98.4 87 18 131/79 99 03/25/17 03:17 40 03/25/17 01:01 4.0 03/24/17 08:00 Nasal Cannula Intake and Output 03/24/17 03/24/17 03/25/17 15:00 23:00 07:00 Intake Total 500 ml Output Total 800 ml Balance -300 ml Exam Constitutional: alert, oriented Head: normocephalic Neck: supple Respiratory: diminished breath sounds Cardiovascular: nl pulses Gastrointestinal: soft Extremities: edema Results Result Diagram: 03/24/17 0746 03/24/17 0746 Medications Medications Current Medications Ondansetron HCl (Zofran Inj) 4 mg Q6H PRN IV NAUSEA AND/OR VOMITING Last administered on 03/24/17 09:32; Admin Dose 4 MG; Start 03/11/17 at 12:30 Acetaminophen (Tylenol Tab) 650 mg Q6H PRN PO PAIN LEVEL 1-3 OR FEVER Last administered on 03/11/17 14:17; Admin Dose 650 MG; Start 03/11/17 at 12:30 Famotidine (Pepcid) 20 mg BID PO Last administered on 03/25/17 08:48; Admin Dose 20 MG; Start 03/11/17 at 21:00 Apixaban (Eliquis) 2.5 mg BID PO Last administered on 03/25/17 08:48; Admin Dose 2.5 MG; Start 03/11/17 at 21:00 Atorvastatin Calcium (Lipitor) 20 mg QHS PO Last administered on 03/24/17 21: 05; Admin Dose 20 MG; Start 03/11/17 at 21:00 Escitalopram Oxalate (Lexapro) 10 mg DAILY PO Last administered on 03/25/17 08:48; Admin Dose 10 MG; Start 03/12/17 at 09:00 Furosemide (Lasix) 40 mg BID@06,18 PO Last administered on 03/25/17 18:15; Admin Dose 40 MG; Start 03/11/17 at 18:00 Hydrocodone Bit/ Homatropine Methylb (Hycodan Liquid) 10 ml TID PO Last administered on 03/25/17 12:03; Admin Dose 10 ML; Start 03/11/17 at 21:00 Morphine Sulfate (Ms Contin (Er)) 15 mg BID PO Last administered on 03/25/17 08:48; Admin Dose 15 MG; Start 03/11/17 at 21:00 Pantoprazole (Protonix Tab) 40 mg DAILY@06 PO Last administered on 03/25/17 06:23; Admin Dose 40 MG; Start 03/12/17 at 06:00 Potassium Chloride (Klor-Con 20) 20 meq BID PO Last administered on 03/25/17 08:48; Admin Dose 20 MEQ; Start 03/11/17 at 21:00 Senna (Senokot) 1 tab DAILY PRN PO CONSTIPATION Last administered on 12:35; Admin Dose 1 TAB; Start 03/11/17 at 14:30 Non-Formulary Medication 2 ea BID NASAL Last administered on 03/25/17 08:49; Admin Dose 2 EA; Start 03/11/17 at 15:31 Morphine Sulfate (morphine) 4 mg Q4H PRN IV PAIN LEVEL 7-10 Last administered on 03/25/17 18:15; Admin Dose 4 MG; Start 03/18/17 at 11:11 Hydralazine HCl (Apresoline) 10 mg Q4H PRN IV ELEVATED BLOOD PRESSURE Last administered on 03/20/17 06:36; Admin Dose 10 MG; Start 03/20/17 at 00:30 Lorazepam (Ativan) 1 mg Q4 PRN IV AGITATION/ANXIETY Last administered on 12:30; Admin Dose 1 MG; Start 03/20/17 at 00:30 DAHIANA BABCOCK MD Mar 25, 2017 20:10
[2017-03-25] MEDS: ATORVASTATIN 20 MG TAB PO SCH (20:39)
[2017-03-26] VITALS (13 sets, daily range): BP systolic 110–153; BP diastolic 63–89; PULSE 76–90; RESP 18
[2017-03-26] MEDS: PANTOPRAZOLE (EC) 40 MG TAB PO SCH (06:09)
[2017-03-26] MEDS: FUROSEMIDE 40 MG TAB PO SCH ×2 (06:09→17:34)
[2017-03-26] MEDS: LEVOTHYROXINE 75 MCG TAB PO SCH (06:09)
[2017-03-26] MEDS: morphine 4 MG/ML VIAL IV PRN ×4 (06:23→23:44)
[2017-03-26] MEDS: ESCITALOPRAM 10 MG TAB PO SCH (08:32)
[2017-03-26] MEDS: HYDROCODONE/HOMATROPINE 5ML CUP PO SCH ×2 (08:32→13:36)
[2017-03-26] MEDS: SPECIAL NON-STANDARD MEDICATION (BULK) NASAL SCH ×2 (08:32→21:21)
[2017-03-26] MEDS: DRONABINOL 2.5 MG CAP PO SCH ×3 (08:32→17:34)
[2017-03-26] MEDS: POTASSIUM CHLORIDE (SR) 20 MEQ TAB PO SCH ×2 (08:32→21:22)
[2017-03-26] MEDS: morphine (ER) 15 MG TAB PO SCH ×2 (08:33→21:22)
[2017-03-26] MEDS: FAMOTIDINE 20 MG TAB PO SCH (08:33)
[2017-03-26] MEDS: APIXABAN 5 MG TABLET PO SCH ×2 (08:33→21:22)
--- NOTE | 2017-03-26 16:30 | PN ---
Date/Time of Note Date/Time of Note DATE: 03/26/17 TIME: 16:30 Assessment/Plan VTE Prophylaxis VTE Prophylaxis Intervention: other Lines/Catheters IV C[facility]ter Type (from [facility]): Saline Lock Urinary Cath still in place: No Assessment/Plan Chief Complaint/Hosp Course Assessment/Plan - Hypercapnic respiratory failure due to advanced lung malignancy with almost complete whiteout of the right lung. Dr. Philip is following in pulmonology consultation - Advanced non-small cell lung CA, Dr. Scanlon is following in oncology consultation. - Nonocclusive deep venous thrombosis bilateral upper extremities. Continue Eliquis. - Acute on chronic diastolic congestive heart failure, continue gentle diuresis , continue to monitor electrolytes. - h/o fungal pneumonia, on maintenance voriconazole - CAD, continue aspirin. - Hyperlipidemia, continue statin - Hypothyroidism, continue levothyroxine. - Paroxysmal atrial fibrillation, controlled rate, patient is continued on Eliquis. - COPD - Obesity with BMI 42 - Status post treatment for postobstructive pneumonia and paronychia Further recommendations based on clinical course. Plan of care discussed with Dr. Lincoln. Problems: Exam/Review of Systems Vital Signs Vitals Vital Signs Date Time Temp Pulse Resp B/P Pulse Ox O2 Delivery O2 Flow Rate FiO2 03/26/17 16:07 98.0 83 18 117/82 97 03/26/17 13:00 Nasal Cannula 4.0 03/26/17 03:10 40 Intake and Output 03/25/17 03/25/17 03/26/17 15:00 23:00 07:00 Intake Total 220 ml 120 ml Output Total 400 ml Balance 220 ml -280 ml Results Result Diagram: 03/24/17 0746 03/24/17 0746 Medications Medications Current Medications Ondansetron HCl (Zofran Inj) 4 mg Q6H PRN IV NAUSEA AND/OR VOMITING Last administered on 03/24/17 09:32; Admin Dose 4 MG; Start 03/11/17 at 12:30 Acetaminophen (Tylenol Tab) 650 mg Q6H PRN PO PAIN LEVEL 1-3 OR FEVER Last administered on 03/11/17 14:17; Admin Dose 650 MG; Start 03/11/17 at 12:30 Famotidine (Pepcid) 20 mg BID PO Last administered on 03/26/17 08:33; Admin Dose 20 MG; Start 03/11/17 at 21:00 Apixaban (Eliquis) 2.5 mg BID PO Last administered on 03/26/17 08:33; Admin Dose 2.5 MG; Start 03/11/17 at 21:00 Atorvastatin Calcium (Lipitor) 20 mg QHS PO Last administered on 03/25/17 20: 39; Admin Dose 20 MG; Start 03/11/17 at 21:00 Escitalopram Oxalate (Lexapro) 10 mg DAILY PO Last administered on 03/26/17 08:32; Admin Dose 10 MG; Start 03/12/17 at 09:00 Furosemide (Lasix) 40 mg BID@06,18 PO Last administered on 03/26/17 06:09; Admin Dose 40 MG; Start 03/11/17 at 18:00 Hydrocodone Bit/ Homatropine Methylb (Hycodan Liquid) 10 ml TID PO Last administered on 03/26/17 13:36; Admin Dose 10 ML; Start 03/11/17 at 21:00 Morphine Sulfate (Ms Contin (Er)) 15 mg BID PO Last administered on 03/26/17 08:33; Admin Dose 15 MG; Start 03/11/17 at 21:00 Pantoprazole (Protonix Tab) 40 mg DAILY@06 PO Last administered on 03/26/17 06:09; Admin Dose 40 MG; Start 03/12/17 at 06:00 Potassium Chloride (Klor-Con 20) 20 meq BID PO Last administered on 03/26/17 08:32; Admin Dose 20 MEQ; Start 03/11/17 at 21:00 Senna (Senokot) 1 tab DAILY PRN PO CONSTIPATION Last administered on 12:35; Admin Dose 1 TAB; Start 03/11/17 at 14:30 Non-Formulary Medication 2 ea BID NASAL Last administered on 03/26/17 08:32; Admin Dose 2 EA; Start 03/11/17 at 15:31 Morphine Sulfate (morphine) 4 mg Q4H PRN IV PAIN LEVEL 7-10 Last administered on 03/26/17 15:19; Admin Dose 4 MG; Start 03/18/17 at 11:11 Hydralazine HCl (Apresoline) 10 mg Q4H PRN IV ELEVATED BLOOD PRESSURE Last administered on 03/20/17 06:36; Admin Dose 10 MG; Start 03/20/17 at 00:30 Lorazepam (Ativan) 1 mg Q4 PRN IV AGITATION/ANXIETY Last administered on 12:30; Admin Dose 1 MG; Start 03/20/17 at 00:30 LUBA EARLY Mar 26, 2017 16:30
[2017-03-26] MEDS: ATORVASTATIN 20 MG TAB PO SCH (21:22)
--- NOTE | 2017-03-26 22:20 | PN ---
Date/Time of Note Date/Time of Note DATE: 03/26/17 TIME: 22:17 Assessment/Plan VTE Prophylaxis VTE Prophylaxis Intervention: SCD's Lines/Catheters IV [facility]ter Type (from [facility]): Saline Lock Urinary Cath still in place: No Assessment/Plan Chief Complaint/Hosp Course Pt continues on supplemental oxygen and Bipap at night, afebrile. Assessment/Plan - Hypercapnic respiratory failure due to advanced lung malignancy with almost complete whiteout of the right lung. Dr. Philip is following in pulmonology consultation - Advanced non-small cell lung CA, Dr. Scanlon is following in oncology consultation. - Nonocclusive deep venous thrombosis bilateral upper extremities. Continue Eliquis. - Acute on chronic diastolic congestive heart failure, continue gentle diuresis , continue to monitor electrolytes. - h/o fungal pneumonia, on maintenance voriconazole - CAD, continue aspirin. - Hyperlipidemia, continue statin - Hypothyroidism, continue levothyroxine. - Paroxysmal atrial fibrillation, controlled rate, patient is continued on Eliquis. - COPD - Obesity with BMI 42 - Status post treatment for postobstructive pneumonia and paronychia Further recommendations based on clinical course. Plan of care discussed with Dr. Lincoln. Problems: Exam/Review of Systems Vital Signs Vitals Vital Signs Date Time Temp Pulse Resp B/P Pulse Ox O2 Delivery O2 Flow Rate FiO2 03/26/17 20:22 88 03/26/17 19:44 98.3 18 153/89 98 03/26/17 18:38 4.0 03/26/17 16:00 Nasal Cannula 03/26/17 03:10 40 Intake and Output 03/25/17 03/25/17 03/26/17 15:00 23:00 07:00 Intake Total 220 ml 120 ml Output Total 400 ml Balance 220 ml -280 ml Exam Constitutional: alert, oriented Head: normocephalic Neck: supple Respiratory: diminished breath sounds Cardiovascular: nl pulses Gastrointestinal: soft Extremities: edema Results Result Diagram: 03/24/17 0746 03/24/17 0746 Medications Medications Current Medications Ondansetron HCl (Zofran Inj) 4 mg Q6H PRN IV NAUSEA AND/OR VOMITING Last administered on 03/24/17t 09:32; Admin Dose 4 MG; Start 03/11/17 at 12:30 Acetaminophen (Tylenol Tab) 650 mg Q6H PRN PO PAIN LEVEL 1-3 OR FEVER Last administered on 03/11/17 14:17; Admin Dose 650 MG; Start 03/11/17 at 12:30 Apixaban (Eliquis) 2.5 mg BID PO Last administered on 03/26/17 21:22; Admin Dose 2.5 MG; Start 03/11/17 at 21:00 Atorvastatin Calcium (Lipitor) 20 mg QHS PO Last administered on 03/26/17 21: 22; Admin Dose 20 MG; Start 03/11/17 at 21:00 Escitalopram Oxalate (Lexapro) 10 mg DAILY PO Last administered on 03/26/17 08:32; Admin Dose 10 MG; Start 03/12/17 at 09:00 Furosemide (Lasix) 40 mg BID@06,18 PO Last administered on 03/26/17 17:34; Admin Dose 40 MG; Start 03/11/17 at 18:00 Morphine Sulfate (Ms Contin (Er)) 15 mg BID PO Last administered on 03/26/17 21:22; Admin Dose 15 MG; Start 03/11/17 at 21:00 Pantoprazole (Protonix Tab) 40 mg DAILY@06 PO Last administered on 03/26/17 06:09; Admin Dose 40 MG; Start 03/12/17 at 06:00 Potassium Chloride (Klor-Con 20) 20 meq BID PO Last administered on 03/26/17 21:22; Admin Dose 20 MEQ; Start 03/11/17 at 21:00 Senna (Senokot) 1 tab DAILY PRN PO CONSTIPATION Last administered on 12:35; Admin Dose 1 TAB; Start 03/11/17 at 14:30 Non-Formulary Medication 2 ea BID NASAL Last administered on 03/26/17 21:21; Admin Dose 2 EA; Start 03/11/17 at 15:31 Morphine Sulfate (morphine) 4 mg Q4H PRN IV PAIN LEVEL 7-10 Last administered on 03/26/17 19:41; Admin Dose 4 MG; Start 03/18/17 at 11:11 Hydralazine HCl (Apresoline) 10 mg Q4H PRN IV ELEVATED BLOOD PRESSURE Last administered on 03/20/17 06:36; Admin Dose 10 MG; Start 03/20/17 at 00:30 Lorazepam (Ativan) 1 mg Q4 PRN IV AGITATION/ANXIETY Last administered on t 12:30; Admin Dose 1 MG; Start 03/20/17 at 00:30 Hydrocodone Bit/ Homatropine Methylb (Hycodan Liquid) 10 ml TID PRN PO COUGH; Start 03/26/17 at 18:30 LUBA EARLY Mar 26, 2017 22:20
--- NOTE | 2017-03-26 22:52 | CONS ---
Date/Time of Note Date/Time of Note DATE: 03/26/17 TIME: 22:52 Assessment/Plan Assessment/Plan Chief Complaint/Hosp Course Lung cancer with ongoing chemotherapy. chemo on hold lung cancer relatively controlled based on recent CTs d/w situation with - she refused hospice POS HOME ON [facility] SEVERE DECONDITIONING, POOR RS OVERALL PROGNOSIS- LIMITED Leukocytosis. Anemia. Thrombocytopenia-stable, cont to monitor DVT-RUE on eliquis Chest pain. Abnormal electrocardiogram with nonspecific ST and T-wave abnormalities Bradycardia, transient while on beta matthew. Hypotension-improved Shortness of [id number] PNA Renal failure-ongoing s CHF-worsening edema Problems: Consultation Date/Type/Reason Admit Date/Time Mar 10, 2017 at 23:35 Type of Consultation: hemeon Referring Provider: MARYAM FARMER MD 24 HR Interval Summary Free Text/Dictation ALL NOTED WEAK Exam/Review of Systems Vital Signs Vitals Vital Signs Date Time Temp Pulse Resp B/P Pulse Ox O2 Delivery O2 Flow Rate FiO2 03/26/17 20:22 88 03/26/17 19:44 98.3 18 153/89 98 03/26/17 18:38 4.0 03/26/17 16:00 Nasal Cannula 03/26/17 03:10 40 Intake and Output 03/25/17 03/25/17 03/26/17 15:00 23:00 07:00 Intake Total 220 ml 120 ml Output Total 400 ml Balance 220 ml -280 ml Exam Constitutional: alert, oriented Head: normocephalic Neck: supple Respiratory: diminished breath sounds Cardiovascular: nl pulses Gastrointestinal: soft Extremities: edema Results Result Diagram: 03/24/17 0746 03/24/17 0746 Medications Medications Current Medications Ondansetron HCl (Zofran Inj) 4 mg Q6H PRN IV NAUSEA AND/OR VOMITING Last administered on 03/24/17 09:32; Admin Dose 4 MG; Start 03/11/17 at 12:30 Acetaminophen (Tylenol Tab) 650 mg Q6H PRN PO PAIN LEVEL 1-3 OR FEVER Last administered on 03/11/17 14:17; Admin Dose 650 MG; Start 03/11/17 at 12:30 Apixaban (Eliquis) 2.5 mg BID PO Last administered on 03/26/17 21:22; Admin Dose 2.5 MG; Start 03/11/17 at 21:00 Atorvastatin Calcium (Lipitor) 20 mg QHS PO Last administered on 03/26/17 21: 22; Admin Dose 20 MG; Start 03/11/17 at 21:00 Escitalopram Oxalate (Lexapro) 10 mg DAILY PO Last administered on 03/26/17 08:32; Admin Dose 10 MG; Start 03/12/17 at 09:00 Furosemide (Lasix) 40 mg BID@06,18 PO Last administered on 03/26/17 17:34; Admin Dose 40 MG; Start 03/11/17 at 18:00 Morphine Sulfate (Ms Contin (Er)) 15 mg BID PO Last administered on 03/26/17 21:22; Admin Dose 15 MG; Start 03/11/17 at 21:00 Pantoprazole (Protonix Tab) 40 mg DAILY@06 PO Last administered on 03/26/17 06:09; Admin Dose 40 MG; Start 03/12/17 at 06:00 Potassium Chloride (Klor-Con 20) 20 meq BID PO Last administered on 03/26/17 21:22; Admin Dose 20 MEQ; Start 03/11/17 at 21:00 Senna (Senokot) 1 tab DAILY PRN PO CONSTIPATION Last administered on 12:35; Admin Dose 1 TAB; Start 03/11/17 at 14:30 Non-Formulary Medication 2 ea BID NASAL Last administered on 03/26/17 21:21; Admin Dose 2 EA; Start 03/11/17 at 15:31 Morphine Sulfate (morphine) 4 mg Q4H PRN IV PAIN LEVEL 7-10 Last administered on 03/26/17 19:41; Admin Dose 4 MG; Start 03/18/17 at 11:11 Hydralazine HCl (Apresoline) 10 mg Q4H PRN IV ELEVATED BLOOD PRESSURE Last administered on 03/20/17 06:36; Admin Dose 10 MG; Start 03/20/17 at 00:30 Lorazepam (Ativan) 1 mg Q4 PRN IV AGITATION/ANXIETY Last administered on 12:30; Admin Dose 1 MG; Start 03/20/17 at 00:30 Hydrocodone Bit/ Homatropine Methylb (Hycodan Liquid) 10 ml TID PRN PO COUGH; Start 03/26/17 at 18:30 DAHIANA BABCOCK MD Mar 26, 2017 22:52
[2017-03-27] VITALS (14 sets, daily range): BP systolic 110–141; BP diastolic 58–87; PULSE 68–93; RESP 16–18
[2017-03-27] MEDS: FUROSEMIDE 40 MG TAB PO SCH ×2 (06:39→17:55)
[2017-03-27] MEDS: PANTOPRAZOLE (EC) 40 MG TAB PO SCH (06:39)
[2017-03-27] MEDS: LEVOTHYROXINE 75 MCG TAB PO SCH (06:45)
[2017-03-27] MEDS: ESCITALOPRAM 10 MG TAB PO SCH (08:28)
[2017-03-27] MEDS: DRONABINOL 2.5 MG CAP PO SCH ×3 (08:28→17:54)
[2017-03-27] MEDS: APIXABAN 5 MG TABLET PO SCH ×2 (08:29→20:07)
[2017-03-27] MEDS: morphine (ER) 15 MG TAB PO SCH ×2 (08:29→20:08)
[2017-03-27] MEDS: POTASSIUM CHLORIDE (SR) 20 MEQ TAB PO SCH ×2 (08:29→20:07)
[2017-03-27] MEDS: SPECIAL NON-STANDARD MEDICATION (BULK) NASAL SCH ×2 (08:31→20:07)
[2017-03-27] MEDS: ONDANSETRON 4 MG INJ IV PRN (11:21)
[2017-03-27] MEDS: morphine 4 MG/ML VIAL IV PRN ×3 (14:13→23:17)
[2017-03-27] MEDS: LORAZEPAM 2 MG INJ IV PRN (15:36)
--- NOTE | 2017-03-27 16:21 | PN ---
Date/Time of Note Date/Time of Note DATE: 03/27/17 TIME: 16:21 Assessment/Plan VTE Prophylaxis VTE Prophylaxis Intervention: SCD's Lines/Catheters IV [facility]ter Type (from [facility]): Saline Lock Urinary Cath still in place: No Assessment/Plan Chief Complaint/Hosp Course Pt continues on supplemental oxygen and Bipap at night, afebrile. DC planning home with home health. Assessment/Plan - Hypercapnic respiratory failure due to advanced lung malignancy with almost complete whiteout of the right lung. Dr. Philip is following in pulmonology consultation - Advanced non-small cell lung CA, Dr. Scanlon is following in oncology consultation. - Nonocclusive deep venous thrombosis bilateral upper extremities. Continue Eliquis. - Acute on chronic diastolic congestive heart failure, continue gentle diuresis , continue to monitor electrolytes. - h/o fungal pneumonia, on maintenance voriconazole - CAD, continue aspirin. - Hyperlipidemia, continue statin - Hypothyroidism, continue levothyroxine. - Paroxysmal atrial fibrillation, controlled rate, patient is continued on Eliquis. - COPD - Obesity with BMI 42 - Status post treatment for postobstructive pneumonia and paronychia Further recommendations based on clinical course. Plan of care discussed with Dr. Lincoln. Problems: Exam/Review of Systems Vital Signs Vitals Vital Signs Date Time Temp Pulse Resp B/P Pulse Ox O2 Delivery O2 Flow Rate FiO2 03/27/17 16:05 68 03/27/17 14:50 97.8 16 110/77 95 Nasal Cannula 3.0 03/27/17 03:40 40 Intake and Output 03/26/17 03/26/17 03/27/17 15:00 23:00 07:00 Intake Total 500 ml 550 ml Output Total 400 ml 850 ml Balance 100 ml -300 ml Exam Constitutional: alert, oriented Head: normocephalic Neck: supple Respiratory: diminished breath sounds Cardiovascular: nl pulses Gastrointestinal: soft Extremities: edema Results Result Diagram: 03/27/17 0708 03/27/17 0708 Results 24 hrs Laboratory Tests Test 03/27/17 07:08 White Blood Count 5.3 Red Blood Count 3.37 L Hemoglobin 10.9 L Hematocrit 33.9 L Mean Corpuscular Volume 100.6 Mean Corpuscular Hemoglobin 32.3 Mean Corpuscular Hemoglobin Concent 32.2 Red Cell Distribution Width 12.9 Platelet Count 169 Mean Platelet Volume 10.3 Neutrophils % 62.1 Lymphocytes % 21.9 Monocytes % 12.0 H Eosinophils % 3.2 Basophils % 0.6 Nucleated Red Blood Cells % 0.0 Neutrophils # 3.3 Lymphocytes # 1.2 Monocytes # 0.6 Eosinophils # 0.2 Basophils # 0.0 Nucleated Red Blood Cells # 0.0 Sodium Level 141 Potassium Level 3.9 Chloride Level 95 L Carbon Dioxide Level 40 H Anion Gap 10 Blood Urea Nitrogen 18 Creatinine 1.10 Glucose Level 89 Calcium Level 9.4 Medications Medications Current Medications Ondansetron HCl (Zofran Inj) 4 mg Q6H PRN IV NAUSEA AND/OR VOMITING Last administered on 03/27/17 11:21; Admin Dose 4 MG; Start 03/11/17 at 12:30 Acetaminophen (Tylenol Tab) 650 mg Q6H PRN PO PAIN LEVEL 1-3 OR FEVER Last administered on 03/11/17 14:17; Admin Dose 650 MG; Start 03/11/17 at 12:30 Apixaban (Eliquis) 2.5 mg BID PO Last administered on 03/27/17 08:29; Admin Dose 2.5 MG; Start 03/11/17 at 21:00 Atorvastatin Calcium (Lipitor) 20 mg QHS PO Last administered on 03/26/17 21: 22; Admin Dose 20 MG; Start 03/11/17 at 21:00 Escitalopram Oxalate (Lexapro) 10 mg DAILY PO Last administered on 03/27/17 08:28; Admin Dose 10 MG; Start 03/12/17 at 09:00 Furosemide (Lasix) 40 mg BID@06,18 PO Last administered on 03/27/17 06:39; Admin Dose 40 MG; Start 03/11/17 at 18:00 Morphine Sulfate (Ms Contin (Er)) 15 mg BID PO Last administered on 03/27/17 08:29; Admin Dose 15 MG; Start 03/11/17 at 21:00 Pantoprazole (Protonix Tab) 40 mg DAILY@06 PO Last administered on 03/27/17 06:39; Admin Dose 40 MG; Start 03/12/17 at 06:00 Potassium Chloride (Klor-Con 20) 20 meq BID PO Last administered on 03/27/17 08:29; Admin Dose 20 MEQ; Start 03/11/17 at 21:00 Senna (Senokot) 1 tab DAILY PRN PO CONSTIPATION Last administered on 12:35; Admin Dose 1 TAB; Start 03/11/17 at 14:30 Non-Formulary Medication 2 ea BID NASAL Last administered on 03/27/17 08:31; Admin Dose 2 EA; Start 03/11/17 at 15:31 Morphine Sulfate (morphine) 4 mg Q4H PRN IV PAIN LEVEL 7-10 Last administered on 03/27/17 14:13; Admin Dose 4 MG; Start 03/18/17 at 11:11 Hydralazine HCl (Apresoline) 10 mg Q4H PRN IV ELEVATED BLOOD PRESSURE Last administered on 03/20/17 06:36; Admin Dose 10 MG; Start 03/20/17 at 00:30 Lorazepam (Ativan) 1 mg Q4 PRN IV AGITATION/ANXIETY Last administered on 15:36; Admin Dose 1 MG; Start 03/20/17 at 00:30 Hydrocodone Bit/ Homatropine Methylb (Hycodan Liquid) 10 ml TID PRN PO COUGH; Start 03/26/17 at 18:30 LUBA EARLY Mar 27, 2017 16:21
--- NOTE | 2017-03-27 17:38 | CONS ---
Date/Time of Note Date/Time of Note DATE: 03/27/17 TIME: 17:37 Assessment/Plan Assessment/Plan Chief Complaint/Hosp Course Lung cancer with ongoing chemotherapy. chemo on hold lung cancer relatively controlled based on recent CTs d/w situation with - she refused hospice HOME WITH HOME CARE SEVERE DECONDITIONING, POOR RS OVERALL PROGNOSIS- LIMITED Leukocytosis. Anemia. Thrombocytopenia-stable, cont to monitor DVT-RUE on eliquis Chest pain. Abnormal electrocardiogram with nonspecific ST and T-wave abnormalities Bradycardia, transient while on beta matthew. Hypotension-improved Shortness of [id number] PNA Renal failure-ongoing s CHF-worsening edema Problems: Consultation Date/Type/Reason Admit Date/Time Mar 10, 2017 at 23:35 Type of Consultation: hemeon Referring Provider: MARYAM FARMER MD 24 HR Interval Summary Free Text/Dictation ALL NOTED Pt continues on supplemental oxygen and Bipap at night Exam/Review of Systems Vital Signs Vitals Vital Signs Date Time Temp Pulse Resp B/P Pulse Ox O2 Delivery O2 Flow Rate FiO2 03/27/17 16:22 Nasal Cannula 3.0 03/27/17 16:05 68 03/27/17 14:50 97.8 16 110/77 95 03/27/17 03:40 40 Intake and Output 03/26/17 03/26/17 03/27/17 15:00 23:00 07:00 Intake Total 500 ml 550 ml Output Total 400 ml 850 ml Balance 100 ml -300 ml Exam Constitutional: alert, oriented Head: normocephalic Neck: supple Respiratory: diminished breath sounds Cardiovascular: nl pulses Gastrointestinal: soft Extremities: edema Results Result Diagram: 03/27/17 0708 03/27/17 0708 Results 24 hrs Laboratory Tests Test 03/27/17 07:08 White Blood Count 5.3 Red Blood Count 3.37 L Hemoglobin 10.9 L Hematocrit 33.9 L Mean Corpuscular Volume 100.6 Mean Corpuscular Hemoglobin 32.3 Mean Corpuscular Hemoglobin Concent 32.2 Red Cell Distribution Width 12.9 Platelet Count 169 Mean Platelet Volume 10.3 Neutrophils % 62.1 Lymphocytes % 21.9 Monocytes % 12.0 H Eosinophils % 3.2 Basophils % 0.6 Nucleated Red Blood Cells % 0.0 Neutrophils # 3.3 Lymphocytes # 1.2 Monocytes # 0.6 Eosinophils # 0.2 Basophils # 0.0 Nucleated Red Blood Cells # 0.0 Sodium Level 141 Potassium Level 3.9 Chloride Level 95 L Carbon Dioxide Level 40 H Anion Gap 10 Blood Urea Nitrogen 18 Creatinine 1.10 Glucose Level 89 Calcium Level 9.4 Medications Medications Current Medications Ondansetron HCl (Zofran Inj) 4 mg Q6H PRN IV NAUSEA AND/OR VOMITING Last administered on 03/27/17 11:21; Admin Dose 4 MG; Start 03/11/17 at 12:30 Acetaminophen (Tylenol Tab) 650 mg Q6H PRN PO PAIN LEVEL 1-3 OR FEVER Last administered on 03/11/17 14:17; Admin Dose 650 MG; Start 03/11/17 at 12:30 Apixaban (Eliquis) 2.5 mg BID PO Last administered on 03/27/17 08:29; Admin Dose 2.5 MG; Start 03/11/17 at 21:00 Atorvastatin Calcium (Lipitor) 20 mg QHS PO Last administered on 03/26/17 21: 22; Admin Dose 20 MG; Start 03/11/17 at 21:00 Escitalopram Oxalate (Lexapro) 10 mg DAILY PO Last administered on 03/27/17 08:28; Admin Dose 10 MG; Start 03/12/17 at 09:00 Furosemide (Lasix) 40 mg BID@06,18 PO Last administered on 03/27/17 06:39; Admin Dose 40 MG; Start 03/11/17 at 18:00 Morphine Sulfate (Ms Contin (Er)) 15 mg BID PO Last administered on 03/27/17 08:29; Admin Dose 15 MG; Start 03/11/17 at 21:00 Pantoprazole (Protonix Tab) 40 mg DAILY@06 PO Last administered on 03/27/17 06:39; Admin Dose 40 MG; Start 03/12/17 at 06:00 Potassium Chloride (Klor-Con 20) 20 meq BID PO Last administered on 03/27/17 08:29; Admin Dose 20 MEQ; Start 03/11/17 at 21:00 Senna (Senokot) 1 tab DAILY PRN PO CONSTIPATION Last administered on 12:35; Admin Dose 1 TAB; Start 03/11/17 at 14:30 Non-Formulary Medication 2 ea BID NASAL Last administered on 03/27/17 08:31; Admin Dose 2 EA; Start 03/11/17 at 15:31 Morphine Sulfate (morphine) 4 mg Q4H PRN IV PAIN LEVEL 7-10 Last administered on 03/27/17 14:13; Admin Dose 4 MG; Start 03/18/17 at 11:11 Hydralazine HCl (Apresoline) 10 mg Q4H PRN IV ELEVATED BLOOD PRESSURE Last administered on 03/20/17 06:36; Admin Dose 10 MG; Start 03/20/17 at 00:30 Lorazepam (Ativan) 1 mg Q4 PRN IV AGITATION/ANXIETY Last administered on 15:36; Admin Dose 1 MG; Start 03/20/17 at 00:30 Hydrocodone Bit/ Homatropine Methylb (Hycodan Liquid) 10 ml TID PRN PO COUGH; Start 03/26/17 at 18:30 DAHIANA BABCOCK MD Mar 27, 2017 17:38
[2017-03-27] MEDS: ATORVASTATIN 20 MG TAB PO SCH (20:07)
[2017-03-28 01:20] VITALS: PULSE 85
[2017-03-28 02:23] VITALS: BP 115/86; PULSE 92; RESP 20
[2017-03-28 03:03] VITALS: PULSE 83; PULSE 85
[2017-03-28] MEDS: morphine 4 MG/ML VIAL IV PRN ×5 (04:09→22:18)
[2017-03-28] MEDS: PANTOPRAZOLE (EC) 40 MG TAB PO SCH (05:13)
[2017-03-28] MEDS: FUROSEMIDE 40 MG TAB PO SCH ×2 (05:13→17:52)
[2017-03-28] MEDS: LEVOTHYROXINE 75 MCG TAB PO SCH (07:52)
[2017-03-28] MEDS: DRONABINOL 2.5 MG CAP PO SCH ×4 (07:52→17:52)
[2017-03-28 08:22] VITALS: BP 113/76; RESP 20
[2017-03-28] MEDS: morphine (ER) 15 MG TAB PO SCH ×2 (09:09→20:45)
[2017-03-28] MEDS: APIXABAN 5 MG TABLET PO SCH ×2 (09:09→20:45)
[2017-03-28] MEDS: ESCITALOPRAM 10 MG TAB PO SCH (09:09)
[2017-03-28] MEDS: POTASSIUM CHLORIDE (SR) 20 MEQ TAB PO SCH ×2 (09:09→20:45)
[2017-03-28] MEDS: SPECIAL NON-STANDARD MEDICATION (BULK) NASAL SCH ×2 (09:09→22:17)
--- NOTE | 2017-03-28 10:50 | CONS ---
Date/Time of Note Date/Time of Note DATE: 03/28/17 TIME: 10:50 Assessment/Plan Assessment/Plan Chief Complaint/Hosp Course Lung cancer with ongoing chemotherapy. chemo on hold lung cancer relatively controlled based on recent CTs d/w situation with - she refused hospice HOME WITH HOME CARE SEVERE DECONDITIONING, POOR RS OVERALL PROGNOSIS- LIMITED Leukocytosis. Anemia. Thrombocytopenia-stable, cont to monitor DVT-RUE on eliquis Chest pain. Abnormal electrocardiogram with nonspecific ST and T-wave abnormalities Bradycardia, transient while on beta matthew. Hypotension-improved Shortness of [id number] PNA Renal failure-ongoing s CHF-worsening edema Problems: Consultation Date/Type/Reason Admit Date/Time Mar 10, 2017 at 23:35 Type of Consultation: hemeon Referring Provider: MARYAM FARMER MD 24 HR Interval Summary Free Text/Dictation NAD Exam/Review of Systems Vital Signs Vitals Vital Signs Date Time Temp Pulse Resp B/P Pulse Ox O2 Delivery O2 Flow Rate FiO2 03/28/17 08:22 98.5 89 20 113/76 98 03/28/17 08:00 Nasal Cannula 3.0 03/28/17 03:03 40 Intake and Output 03/27/17 03/27/17 03/28/17 15:00 23:00 07:00 Intake Total 250 ml 360 ml Output Total 300 ml 400 ml Balance -50 ml -40 ml Exam Constitutional: alert, oriented Head: normocephalic Neck: supple Respiratory: diminished breath sounds Cardiovascular: nl pulses Gastrointestinal: soft Extremities: edema Results Result Diagram: 03/27/17 0708 03/27/17 0708 Medications Medications Current Medications Ondansetron HCl (Zofran Inj) 4 mg Q6H PRN IV NAUSEA AND/OR VOMITING Last administered on 03/27/17 11:21; Admin Dose 4 MG; Start 03/11/17 at 12:30 Acetaminophen (Tylenol Tab) 650 mg Q6H PRN PO PAIN LEVEL 1-3 OR FEVER Last administered on 03/11/17 14:17; Admin Dose 650 MG; Start 03/11/17 at 12:30 Apixaban (Eliquis) 2.5 mg BID PO Last administered on 03/28/17 09:09; Admin Dose 2.5 MG; Start 03/11/17 at 21:00 Atorvastatin Calcium (Lipitor) 20 mg QHS PO Last administered on 03/27/17 20: 07; Admin Dose 20 MG; Start 03/11/17 at 21:00 Escitalopram Oxalate (Lexapro) 10 mg DAILY PO Last administered on 03/28/17 09 :09; Admin Dose 10 MG; Start 03/12/17 at 09:00 Furosemide (Lasix) 40 mg BID@06,18 PO Last administered on 03/28/17 05:13; Admin Dose 40 MG; Start 03/11/17 at 18:00 Morphine Sulfate (Ms Contin (Er)) 15 mg BID PO Last administered on 03/28/17 09:09; Admin Dose 15 MG; Start 03/11/17 at 21:00 Pantoprazole (Protonix Tab) 40 mg DAILY@06 PO Last administered on 03/28/17 05 :13; Admin Dose 40 MG; Start 03/12/17 at 06:00 Potassium Chloride (Klor-Con 20) 20 meq BID PO Last administered on 03/28/17 09:09; Admin Dose 20 MEQ; Start 03/11/17 at 21:00 Senna (Senokot) 1 tab DAILY PRN PO CONSTIPATION Last administered on 12:35; Admin Dose 1 TAB; Start 03/11/17 at 14:30 Non-Formulary Medication 2 ea BID NASAL Last administered on 03/28/17 09:09; Admin Dose 2 EA; Start 03/11/17 at 15:31 Morphine Sulfate (morphine) 4 mg Q4H PRN IV PAIN LEVEL 7-10 Last administered on 03/28/17 08:10; Admin Dose 4 MG; Start 03/18/17 at 11:11 Hydralazine HCl (Apresoline) 10 mg Q4H PRN IV ELEVATED BLOOD PRESSURE Last administered on 03/20/17 06:36; Admin Dose 10 MG; Start 03/20/17 at 00:30 Lorazepam (Ativan) 1 mg Q4 PRN IV AGITATION/ANXIETY Last administered on 15:36; Admin Dose 1 MG; Start 03/20/17 at 00:30 Hydrocodone Bit/ Homatropine Methylb (Hycodan Liquid) 10 ml TID PRN PO COUGH; Start 03/26/17 at 18:30 DAHIANA BABCOCK MD Mar 28, 2017 10:50
[2017-03-28] MEDS: HYDROCODONE/HOMATROPINE 5ML CUP PO PRN (11:06)
[2017-03-28] MEDS: ONDANSETRON 4 MG INJ IV PRN (12:08)
[2017-03-28 14:00] VITALS: BP 102/73; RESP 20
--- NOTE | 2017-03-28 15:34 | PN ---
Date/Time of Note Date/Time of Note DATE: 03/28/17 TIME: 15:33 Assessment/Plan VTE Prophylaxis VTE Prophylaxis Intervention: SCD's Lines/Catheters IV Catheter Type (from [facility]): Saline Lock Urinary Cath still in place: No Assessment/Plan Chief Complaint/Hosp Course Pt continues on supplemental oxygen and Bipap at night, afebrile. DC planning home with home health. D/W pt's Assessment/Plan - Hypercapnic respiratory failure due to advanced lung malignancy with almost complete whiteout of the right lung. Dr. Philip is following in pulmonology consultation - Advanced non-small cell lung CA, Dr. Scanlon is following in oncology consultation. - Nonocclusive deep venous thrombosis bilateral upper extremities. Continue Eliquis. - Acute on chronic diastolic congestive heart failure, continue gentle diuresis , continue to monitor electrolytes. - h/o fungal pneumonia, on maintenance voriconazole - CAD, continue aspirin. - Hyperlipidemia, continue statin - Hypothyroidism, continue levothyroxine. - Paroxysmal atrial fibrillation, controlled rate, patient is continued on Eliquis. - COPD - Obesity with BMI 42 - Status post treatment for postobstructive pneumonia and paronychia Further recommendations based on clinical course. Plan of care discussed with Dr. Lincoln. Problems: Exam/Review of Systems Vital Signs Vitals Vital Signs Date Time Temp Pulse Resp B/P Pulse Ox O2 Delivery O2 Flow Rate FiO2 03/28/17 08:22 98.5 89 20 113/76 98 03/28/17 08:00 Nasal Cannula 3.0 03/28/17 03:03 40 Intake and Output 03/27/17 03/27/17 03/28/17 15:00 23:00 07:00 Intake Total 250 ml 360 ml Output Total 300 ml 400 ml Balance -50 ml -40 ml Exam Constitutional: alert, oriented Head: normocephalic Neck: supple Respiratory: diminished breath sounds Cardiovascular: nl pulses Gastrointestinal: soft Extremities: edema Results Result Diagram: 03/27/1770703/27/17707 Medications Medications Current Medications Ondansetron HCl (Zofran Inj) 4 mg Q6H PRN IV NAUSEA AND/OR VOMITING Last administered on 03/28/17t 12:08; Admin Dose 4 MG; Start 03/11/17 at 12:30 Acetaminophen (Tylenol Tab) 650 mg Q6H PRN PO PAIN LEVEL 1-3 OR FEVER Last administered on 03/11/17 14:17; Admin Dose 650 MG; Start 03/11/17 at 12:30 Apixaban (Eliquis) 2.5 mg BID PO Last administered on 03/28/17 09:09; Admin Dose 2.5 MG; Start 03/11/17 at 21:00 Atorvastatin Calcium (Lipitor) 20 mg QHS PO Last administered on 03/27/17 20: 07; Admin Dose 20 MG; Start 03/11/17 at 21:00 Escitalopram Oxalate (Lexapro) 10 mg DAILY PO Last administered on 03/28/17 09 :09; Admin Dose 10 MG; Start 03/12/17 at 09:00 Furosemide (Lasix) 40 mg BID@06,18 PO Last administered on 03/28/17 05:13; Admin Dose 40 MG; Start 03/11/17 at 18:00 Morphine Sulfate (Ms Contin (Er)) 15 mg BID PO Last administered on 03/28/17 09:09; Admin Dose 15 MG; Start 03/11/17 at 21:00 Pantoprazole (Protonix Tab) 40 mg DAILY@06 PO Last administered on 03/28/17 05 :13; Admin Dose 40 MG; Start 03/12/17 at 06:00 Potassium Chloride (Klor-Con 20) 20 meq BID PO Last administered on 03/28/17 09:09; Admin Dose 20 MEQ; Start 03/11/17 at 21:00 Senna (Senokot) 1 tab DAILY PRN PO CONSTIPATION Last administered on 12:35; Admin Dose 1 TAB; Start 03/11/17 at 14:30 Non-Formulary Medication 2 ea BID NASAL Last administered on 03/28/17 09:09; Admin Dose 2 EA; Start 03/11/17 at 15:31 Morphine Sulfate (morphine) 4 mg Q4H PRN IV PAIN LEVEL 7-10 Last administered on 03/28/17 13:10; Admin Dose 4 MG; Start 03/18/17 at 11:11 Hydralazine HCl (Apresoline) 10 mg Q4H PRN IV ELEVATED BLOOD PRESSURE Last administered on 03/20/17 06:36; Admin Dose 10 MG; Start 10/24/17 at 00:30 Lorazepam (Ativan) 1 mg Q4 PRN IV AGITATION/ANXIETY Last administered on 15:36; Admin Dose 1 MG; Start 03/20/17 at 00:30 Hydrocodone Bit/ Homatropine Methylb (Hycodan Liquid) 10 ml TID PRN PO COUGH Last administered on 03/28/17 11:06; Admin Dose 10 ML; Start 03/26/17 at 18:30 LUBA EARLY Mar 28, 2017 15:33
[2017-03-28] MEDS: ATORVASTATIN 20 MG TAB PO SCH (20:45)
[2017-03-28 21:09] VITALS: BP 124/89; RESP 18
[2017-03-29] MEDS: HYDROCODONE/HOMATROPINE 5ML CUP PO PRN ×4 (00:22→19:56)
[2017-03-29 00:40] VITALS: PULSE 78
[2017-03-29 03:00] VITALS: BP 113/80; RESP 18
[2017-03-29 03:15] VITALS: PULSE 92
[2017-03-29] MEDS: FUROSEMIDE 40 MG TAB PO SCH ×2 (05:23→17:25)
[2017-03-29] MEDS: PANTOPRAZOLE (EC) 40 MG TAB PO SCH (05:23)
[2017-03-29] MEDS: morphine 4 MG/ML VIAL IV PRN ×5 (05:23→23:54)
[2017-03-29 07:58] VITALS: BP 121/83; RESP 20
[2017-03-29] MEDS: APIXABAN 5 MG TABLET PO SCH ×2 (08:12→21:34)
[2017-03-29] MEDS: POTASSIUM CHLORIDE (SR) 20 MEQ TAB PO SCH ×2 (08:12→21:34)
[2017-03-29] MEDS: ESCITALOPRAM 10 MG TAB PO SCH (08:12)
[2017-03-29] MEDS: DRONABINOL 2.5 MG CAP PO SCH ×3 (08:12→17:24)
[2017-03-29] MEDS: LEVOTHYROXINE 75 MCG TAB PO SCH (08:12)
[2017-03-29] MEDS: morphine (ER) 15 MG TAB PO SCH ×2 (08:13→21:34)
[2017-03-29] MEDS: SPECIAL NON-STANDARD MEDICATION (BULK) NASAL SCH ×2 (08:16→21:00)
[2017-03-29 14:00] VITALS: BP 124/80; RESP 20
--- NOTE | 2017-03-29 14:50 | PN ---
Date/Time of Note Date/Time of Note DATE: 03/29/17 TIME: 14:49 Assessment/Plan Lines/Catheters IV Catheter Type (from Nrs): Saline Lock Urinary Cath still in place: No Assessment/Plan Assessment/Plan - Hypercapnic respiratory failure due to advanced lung malignancy with almost complete whiteout of the right lung. Dr. Philip is following in pulmonology consultation - Advanced non-small cell lung CA, Dr. Scanlon is following in oncology consultation. - Nonocclusive deep venous thrombosis bilateral upper extremities. Continue Eliquis. - Acute on chronic diastolic congestive heart failure, continue gentle diuresis , continue to monitor electrolytes. - h/o fungal pneumonia, on maintenance voriconazole - CAD, continue aspirin. - Hyperlipidemia, continue statin - Hypothyroidism, continue levothyroxine. - Paroxysmal atrial fibrillation, controlled rate, patient is continued on Eliquis. - COPD - Obesity with BMI 42 - Status post treatment for postobstructive pneumonia and paronychia Further recommendations based on clinical course. Plan of care discussed with Dr. Lincoln. Subjective 24 Hr Interval Summary Free Text/Dictation 1250 Constitutional: requiring O2 Respiratory: shortness of breath Cardiovascular: no complaints Gastrointestinal: no complaints Genitourinary: no complaints Musculoskeletal: no complaints Exam/Review of Systems Vital Signs Vitals Vital Signs Date Time Temp Pulse Resp B/P Pulse Ox O2 Delivery O2 Flow Rate FiO2 03/29/17 11:15 Nasal Cannula 3.0 03/29/17 07:58 98.5 94 20 121/83 98 03/29/17 03:15 40 Intake and Output 03/28/17 03/28/17 03/29/17 15:00 23:00 07:00 Intake Total 700 ml 500 ml Output Total 1200 ml 400 ml Balance -500 ml 100 ml Exam Constitutional: alert, obese, oriented ENMT: nl lips & teeth Respiratory: clear to auscultation Cardiovascular: nl pulses, other Results Result Diagram: 03/27/1708 03/27/17 0708 Medications Medications Current Medications Ondansetron HCl (Zofran Inj) 4 mg Q6H PRN IV NAUSEA AND/OR VOMITING Last administered on 03/28/17t 12:08; Admin Dose 4 MG; Start 03/11/17 at 12:30 Acetaminophen (Tylenol Tab) 650 mg Q6H PRN PO PAIN LEVEL 1-3 OR FEVER Last administered on 03/11/17 14:17; Admin Dose 650 MG; Start 03/11/17 at 12:30 Apixaban (Eliquis) 2.5 mg BID PO Last administered on 03/29/17 08:12; Admin Dose 2.5 MG; Start 03/11/17 at 21:00 Atorvastatin Calcium (Lipitor) 20 mg QHS PO Last administered on 03/28/17 20: 45; Admin Dose 20 MG; Start 03/11/17 at 21:00 Escitalopram Oxalate (Lexapro) 10 mg DAILY PO Last administered on 03/29/17 08 :12; Admin Dose 10 MG; Start 03/12/17 at 09:00 Furosemide (Lasix) 40 mg BID@06,18 PO Last administered on 03/29/17 05:23; Admin Dose 40 MG; Start 03/11/17 at 18:00 Morphine Sulfate (Ms Contin (Er)) 15 mg BID PO Last administered on 03/29/17 08:13; Admin Dose 15 MG; Start 03/11/17 at 21:00 Pantoprazole (Protonix Tab) 40 mg DAILY@06 PO Last administered on 03/29/17 05 :23; Admin Dose 40 MG; Start 03/12/17 at 06:00 Potassium Chloride (Klor-Con 20) 20 meq BID PO Last administered on 03/29/17 08:12; Admin Dose 20 MEQ; Start 03/11/17 at 21:00 Senna (Senokot) 1 tab DAILY PRN PO CONSTIPATION Last administered on 12:35; Admin Dose 1 TAB; Start 03/11/17 at 14:30 Non-Formulary Medication 2 ea BID NASAL Last administered on 03/29/17 08:16; Admin Dose 2 EA; Start 03/11/17 at 15:31 Morphine Sulfate (morphine) 4 mg Q4H PRN IV PAIN LEVEL 7-10 Last administered on 03/29/17 10:57; Admin Dose 4 MG; Start 03/18/17 at 11:11 Hydralazine HCl (Apresoline) 10 mg Q4H PRN IV ELEVATED BLOOD PRESSURE Last administered on 03/20/17 06:36; Admin Dose 10 MG; Start 03/20/17 at 00:30 Lorazepam (Ativan) 1 mg Q4 PRN IV AGITATION/ANXIETY Last administered on 15:36; Admin Dose 1 MG; Start 03/20/17 at 00:30 Hydrocodone Bit/ Homatropine Methylb (Hycodan Liquid) 10 ml TID PRN PO COUGH Last administered on 03/29/17 12:29; Admin Dose 10 ML; Start 03/26/17 at 18:30 TRAMAINE ELLSWORTH Mar 29, 2017 14:50
--- NOTE | 2017-03-29 15:58 | DS ---
Date/Time of Note Date/Time of Note DATE: 03/29/17 TIME: 15:58 Discharge Summary Admission/Discharge Info Admit Date/Time Mar 10, 2017 at 23:35 Discharge Date/Time Patient Condition: Stable Hx of Present Illness Patient with metastatic lung cancer who was recently in the hospital for pneumonia, lung collapse returns for increasing shortness of breath. Hospital Course Pt continues on supplemental oxygen and Bipap at night, afebrile. DC planning home with home health. D/W pt's Assessment/Plan - Hypercapnic respiratory failure due to advanced lung malignancy with almost complete whiteout of the right lung. Dr. Philip is following in pulmonology consultation - Advanced non-small cell lung CA, Dr. Scanlon is following in oncology consultation. - Nonocclusive deep venous thrombosis bilateral upper extremities. Continue Eliquis. - Acute on chronic diastolic congestive heart failure, continue gentle diuresis , continue to monitor electrolytes. - h/o fungal pneumonia, on maintenance voriconazole - CAD, continue aspirin. - Hyperlipidemia, continue statin - Hypothyroidism, continue levothyroxine. - Paroxysmal atrial fibrillation, controlled rate, patient is continued on Eliquis. - COPD - Obesity with BMI 42 - Status post treatment for postobstructive pneumonia and paronychia Further recommendations based on clinical course. Plan of care discussed with Dr. Lincoln. Home Meds Active Scripts Hydrocodone/Acetaminophen ([place] 5-325 Tablet) 1 Each Tablet, 1 EACH PO Q6, #20 TAB Prov:TRAMAINE ELLSWORTH 03/29/17 Dronabinol* (Dronabinol*) 2.5 Mg Capsule, 5 MG PO AC MEALS for 30 Days, CAP Prov:LUBA EARLY 03/09/17 Hydrocodone Bit/Homatrop Me-Br (Hydrocodone-Homatropine Syrup) 5 Ml Syrup, 10 ML PO TID for 30 Days Prov:LUBA EARLY 03/09/17 Voriconazole* (Voriconazole*) 200 Mg Tablet, 200 MG PO BID for 30 Days, TAB Prov:LUBA EARLY 03/09/17 Sennosides* (Senna Lax*) 8.6 Mg Tablet, 1 TAB PO DAILY Y for CONSTIPATION for 30 Days, TAB Prov:LUBA EARLY 03/09/17 Potassium Chloride* (K-Dur*) 20 Meq Tab.prt.sr, 20 MEQ PO BID for 30 Days Prov:LUBA EARLY 03/09/17 Pantoprazole* (Pantoprazole*) 40 Mg Tablet.dr, 40 MG PO DAILY@06 for 30 Days Prov:LUBA EARLY 03/09/17 Morphine Sulfate (Morphine Sulfate ER) 15 Mg Tablet.er, 15 MG PO BID for 30 Days , TAB Prov:LUBA EARLY 03/09/17 Levothyroxine Sodium* (Synthroid*) 75 Mcg Tablet, 75 MCG PO BEFORE BREAKFAST for 30 Days, TAB Prov:SHAGUFTA EARLYLANA 03/09/17 Furosemide* (Furosemide*) 40 Mg Tablet, 40 MG PO BID@06,18 for 30 Days, TAB Prov:LUBA EARLY 03/09/17 Escitalopram Oxalate* (Escitalopram Oxalate*) 10 Mg Tablet, 10 MG PO DAILY for 30 Days, TAB Prov:SHAGUFTA EARLYLANA 03/09/17 Apixaban* (Eliquis*) 5 Mg Tablet, 2.5 MG PO BID for 30 Days, TAB Prov:SHAGUFTA EARLYLANA 03/09/17 Esomeprazole Mag Trihydrate (Nexium) 40 Mg Capsule.dr, 40 MG PO DAILY for 30 Days, #30 CAP Prov:LUBA EARLY 09/28/16 Atorvastatin Calcium* (Atorvastatin Calcium*) 20 Mg Tablet, 20 MG PO QHS for 30 Days, #30 TAB Prov:LUBA EARLY 09/28/16 Primary Care Provider Delma Dugan Time spent on discharge: > 30 minutes TRAMAINE ELLSWORTH Mar 29, 2017 15:58
[2017-03-29] MEDS ORDERED: HYDR-906 PO (15:59)
[2017-03-29] MEDS: ALBUTEROL/IPRATROPIUM (NEB) 3 ML AMP HHN PRN (18:19)
--- NOTE | 2017-03-29 19:03 | CONS ---
Date/Time of Note Date/Time of Note DATE: 03/29/17 TIME: 19:03 Assessment/Plan Assessment/Plan Chief Complaint/Hosp Course Lung cancer with ongoing chemotherapy. chemo on hold lung cancer relatively controlled based on recent CTs d/w situation with - she refused hospice HOME WITH HOME CARE SEVERE DECONDITIONING, POOR RS OVERALL PROGNOSIS- LIMITED Leukocytosis. Anemia. Thrombocytopenia-stable, cont to monitor DVT-RUE on eliquis Chest pain. Abnormal electrocardiogram with nonspecific ST and T-wave abnormalities Bradycardia, transient while on beta matthew. Hypotension-improved Shortness of [id number] PNA Renal failure-ongoing s CHF-worsening edema Problems: Consultation Date/Type/Reason Admit Date/Time Mar 10, 2017 at 23:35 Type of Consultation: hemeonc Reason for Consultation Constitutional: alert, oriented Head: normocephalic Neck: supple Respiratory: diminished breath sounds Cardiovascular: nl pulses Gastrointestinal: soft Extremities: edema Referring Provider: MARYAM FARMER MD 24 HR Interval Summary Free Text/Dictation ALL NOTED + general discomfort Exam/Review of Systems Vital Signs Vitals Vital Signs Date Time Temp Pulse Resp B/P Pulse Ox O2 Delivery O2 Flow Rate FiO2 03/29/17 18:21 91 26 98 Nasal Cannula 5.0 03/29/17 14:00 98.0 124/80 03/29/17 03:15 40 Intake and Output 03/28/17 03/28/17 03/29/17 15:00 23:00 07:00 Intake Total 700 ml 500 ml Output Total 1200 ml 400 ml Balance -500 ml 100 ml Results Result Diagram: 03/27/17 0708 03/27/17 0708 Medications Medications Current Medications Ondansetron HCl (Zofran Inj) 4 mg Q6H PRN IV NAUSEA AND/OR VOMITING Last administered on 03/28/17 12:08; Admin Dose 4 MG; Start 03/11/17 at 12:30 Acetaminophen (Tylenol Tab) 650 mg Q6H PRN PO PAIN LEVEL 1-3 OR FEVER Last administered on 03/11/17 14:17; Admin Dose 650 MG; Start 03/11/17 at 12:30 Apixaban (Eliquis) 2.5 mg BID PO Last administered on 03/29/17 08:12; Admin Dose 2.5 MG; Start 03/11/17 at 21:00 Atorvastatin Calcium (Lipitor) 20 mg QHS PO Last administered on 03/28/17 20: 45; Admin Dose 20 MG; Start 03/11/17 at 21:00 Escitalopram Oxalate (Lexapro) 10 mg DAILY PO Last administered on 03/29/17 08 :12; Admin Dose 10 MG; Start 03/12/17 at 09:00 Furosemide (Lasix) 40 mg BID@06,18 PO Last administered on 03/29/17 17:25; Admin Dose 40 MG; Start 03/11/17 at 18:00 Morphine Sulfate (Ms Contin (Er)) 15 mg BID PO Last administered on 03/29/17 08:13; Admin Dose 15 MG; Start 03/11/17 at 21:00 Pantoprazole (Protonix Tab) 40 mg DAILY@06 PO Last administered on 03/29/17 05 :23; Admin Dose 40 MG; Start 03/12/17 at 06:00 Potassium Chloride (Klor-Con 20) 20 meq BID PO Last administered on 03/29/17 08:12; Admin Dose 20 MEQ; Start 03/11/17 at 21:00 Senna (Senokot) 1 tab DAILY PRN PO CONSTIPATION Last administered on 12:35; Admin Dose 1 TAB; Start 03/11/17 at 14:30 Non-Formulary Medication 2 ea BID NASAL Last administered on 03/29/17 08:16; Admin Dose 2 EA; Start 03/11/17 at 15:31 Morphine Sulfate (morphine) 4 mg Q4H PRN IV PAIN LEVEL 7-10 Last administered on 03/29/17 15:25; Admin Dose 4 MG; Start 03/18/17 at 11:11 Hydralazine HCl (Apresoline) 10 mg Q4H PRN IV ELEVATED BLOOD PRESSURE Last administered on 03/20/17 06:36; Admin Dose 10 MG; Start 03/20/17 at 00:30 Lorazepam (Ativan) 1 mg Q4 PRN IV AGITATION/ANXIETY Last administered on 15:36; Admin Dose 1 MG; Start 03/20/17 at 00:30 Hydrocodone Bit/ Homatropine Methylb (Hycodan Liquid) 10 ml TID PRN PO COUGH Last administered on 03/29/17 12:29; Admin Dose 10 ML; Start 03/26/17 at 18:30 DAHIANA BABCOCK MD Mar 29, 2017 19:03
[2017-03-29 20:46] VITALS: BP 116/75; RESP 21
[2017-03-29] MEDS: ATORVASTATIN 20 MG TAB PO SCH (21:34)
[2017-03-30 00:04] VITALS: PULSE 80
[2017-03-30 01:37] VITALS: PULSE 82
[2017-03-30 02:49] VITALS: BP 115/74; RESP 15
[2017-03-30 03:45] VITALS: PULSE 80
[2017-03-30] MEDS: morphine 4 MG/ML VIAL IV PRN ×2 (04:29→12:43)
[2017-03-30] MEDS: SENNA TAB PO PRN (04:40)
[2017-03-30] MEDS: LEVOTHYROXINE 75 MCG TAB PO SCH (06:07)
[2017-03-30] MEDS: FUROSEMIDE 40 MG TAB PO SCH (06:07)
[2017-03-30] MEDS: PANTOPRAZOLE (EC) 40 MG TAB PO SCH (06:07)
[2017-03-30] MEDS: HYDROCODONE/HOMATROPINE 5ML CUP PO PRN (06:12)
[2017-03-30] MEDS ORDERED: BISACODYL 10 MG SUPP PR ONE (07:30)
[2017-03-30 07:40] VITALS: BP 115/75; RESP 18
[2017-03-30] MEDS: DRONABINOL 2.5 MG CAP PO SCH ×2 (08:30→11:38)
[2017-03-30] MEDS: APIXABAN 5 MG TABLET PO SCH (09:51)
[2017-03-30] MEDS: POTASSIUM CHLORIDE (SR) 20 MEQ TAB PO SCH (09:52)
[2017-03-30] MEDS: ESCITALOPRAM 10 MG TAB PO SCH (09:52)
[2017-03-30] MEDS: morphine (ER) 15 MG TAB PO SCH (09:53)
--- NOTE | 2017-03-30 12:33 | CONS ---
Date/Time of Note Date/Time of Note DATE: 03/30/17 TIME: 12:32 Assessment/Plan Assessment/Plan Chief Complaint/Hosp Course Lung cancer with ongoing chemotherapy. chemo on hold lung cancer relatively controlled based on recent CTs d/w situation with - she refused hospice HOME WITH HOME CARE problems with pain meds at home SEVERE DECONDITIONING, POOR RS OVERALL PROGNOSIS- LIMITED Leukocytosis. Anemia. Thrombocytopenia-stable, cont to monitor DVT-RUE on eliquis Chest pain. Abnormal electrocardiogram with nonspecific ST and T-wave abnormalities Bradycardia, transient while on beta matthew. Hypotension-improved Shortness of [id number] PNA Renal failure-ongoing s CHF-worsening edema Problems: Consultation Date/Type/Reason Admit Date/Time Mar 10, 2017 at 23:35 Type of Consultation: hemeon Referring Provider: MARYAM FARMER MD 24 HR Interval Summary Free Text/Dictation all noted Exam/Review of Systems Vital Signs Vitals Vital Signs Date Time Temp Pulse Resp B/P Pulse Ox O2 Delivery O2 Flow Rate FiO2 03/30/17 08:00 Nasal Cannula 3.0 03/30/17 07:40 97.9 79 18 115/75 100 03/30/17 03:45 40 Intake and Output 03/29/17 03/29/17 03/30/17 15:00 23:00 07:00 Intake Total 1040 ml 120 ml Output Total 725 ml 400 ml Balance 315 ml -280 ml Exam Constitutional: alert, oriented Head: normocephalic Neck: supple Respiratory: diminished breath sounds Cardiovascular: nl pulses Gastrointestinal: soft Extremities: edema Results Result Diagram: 03/30/17 0443 03/30/17 0443 Results 24 hrs Laboratory Tests Test 03/30/17 04:43 White Blood Count 7.3 # Red Blood Count 3.53 L Hemoglobin 11.0 L Hematocrit 35.2 L Mean Corpuscular Volume 99.7 Mean Corpuscular Hemoglobin 31.2 Mean Corpuscular Hemoglobin Concent 31.3 L Red Cell Distribution Width 13.0 Platelet Count 182 Mean Platelet Volume 11.5 H Neutrophils % 70.4 Lymphocytes % 18.4 Monocytes % 8.6 Eosinophils % 1.9 Basophils % 0.3 Nucleated Red Blood Cells % 0.0 Neutrophils # 5.1 Lymphocytes # 1.3 Monocytes # 0.6 Eosinophils # 0.1 Basophils # 0.0 Nucleated Red Blood Cells # 0.0 Sodium Level 142 Potassium Level 3.6 Chloride Level 92 L Carbon Dioxide Level 39 H Anion Gap 15 Blood Urea Nitrogen 19 Creatinine 1.12 Glucose Level 90 Calcium Level 9.0 Medications Medications Current Medications Ondansetron HCl (Zofran Inj) 4 mg Q6H PRN IV NAUSEA AND/OR VOMITING Last administered on 03/28/17 12:08; Admin Dose 4 MG; Start 03/11/17 at 12:30 Acetaminophen (Tylenol Tab) 650 mg Q6H PRN PO PAIN LEVEL 1-3 OR FEVER Last administered on 03/11/17 14:17; Admin Dose 650 MG; Start 03/11/17 at 12:30 Apixaban (Eliquis) 2.5 mg BID PO Last administered on 03/30/17 09:51; Admin Dose 2.5 MG; Start 03/11/17 at 21:00 Atorvastatin Calcium (Lipitor) 20 mg QHS PO Last administered on 03/29/17 21: 34; Admin Dose 20 MG; Start 03/11/17 at 21:00 Escitalopram Oxalate (Lexapro) 10 mg DAILY PO Last administered on 03/30/17 09 :52; Admin Dose 10 MG; Start 03/12/17 at 09:00 Furosemide (Lasix) 40 mg BID@06,18 PO Last administered on 03/30/17 06:07; Admin Dose 40 MG; Start 03/11/17 at 18:00 Morphine Sulfate (Ms Contin (Er)) 15 mg BID PO Last administered on 03/30/17 09:53; Admin Dose 15 MG; Start 03/11/17 at 21:00 Pantoprazole (Protonix Tab) 40 mg DAILY@06 PO Last administered on 03/30/17 06 :07; Admin Dose 40 MG; Start 03/12/17 at 06:00 Potassium Chloride (Klor-Con 20) 20 meq BID PO Last administered on 03/30/17 09:52; Admin Dose 20 MEQ; Start 03/11/17 at 21:00 Senna (Senokot) 1 tab DAILY PRN PO CONSTIPATION Last administered on 03/30/17 04:40; Admin Dose 1 TAB; Start 03/11/17 at 14:30 Morphine Sulfate (morphine) 4 mg Q4H PRN IV PAIN LEVEL 7-10 Last administered on 03/30/17 04:29; Admin Dose 4 MG; Start 03/18/17 at 11:11 Hydralazine HCl (Apresoline) 10 mg Q4H PRN IV ELEVATED BLOOD PRESSURE Last administered on 03/20/17 06:36; Admin Dose 10 MG; Start 03/20/17 at 00:30 Lorazepam (Ativan) 1 mg Q4 PRN IV AGITATION/ANXIETY Last administered on 15:36; Admin Dose 1 MG; Start 03/20/17 at 00:30 Hydrocodone Bit/ Homatropine Methylb (Hycodan Liquid) 10 ml TID PRN PO COUGH Last administered on 03/30/17 06:12; Admin Dose 10 ML; Start 03/26/17 at 18:30 DAHIANA BABCOCK MD Mar 30, 2017 12:33
[2017-03-30] MEDS: ONDANSETRON 4 MG INJ IV PRN (12:58)
--- NOTE | 2017-03-30 13:46 | PN ---
Date/Time of Note Date/Time of Note DATE: 03/30/17 TIME: 13:45 Assessment/Plan VTE Prophylaxis VTE Prophylaxis Intervention: SCD's Lines/Catheters [facility] Saline Lock Urinary Cath still in place: No Assessment/Plan Chief Complaint/Hosp Course DC planning home with home health. Pending insurance authorization for outpatient medications. Assessment/Plan - Hypercapnic respiratory failure due to advanced lung malignancy with almost complete whiteout of the right lung. Dr. Philip is following in pulmonology consultation - Advanced non-small cell lung CA, Dr. Scanlon is following in oncology consultation. - Nonocclusive deep venous thrombosis bilateral upper extremities. Continue Eliquis. - Acute on chronic diastolic congestive heart failure, continue gentle diuresis , continue to monitor electrolytes. - h/o fungal pneumonia, on maintenance voriconazole - CAD, continue aspirin. - Hyperlipidemia, continue statin - Hypothyroidism, continue levothyroxine. - Paroxysmal atrial fibrillation, controlled rate, patient is continued on Eliquis. - COPD - Obesity with BMI 42 - Status post treatment for postobstructive pneumonia and paronychia Further recommendations based on clinical course. Plan of care discussed with Dr. Lincoln. Problems: Exam/Review of Systems Vital Signs Vitals Vital Signs Date Time Temp Pulse Resp B/P Pulse Ox O2 Delivery O2 Flow Rate FiO2 03/30/17 13:14 4.0 03/30/17 08:00 Nasal Cannula 03/30/17 07:40 97.9 79 18 115/75 100 03/30/17 03:45 40 Intake and Output 03/29/17 03/29/17 03/30/17 15:00 23:00 07:00 Intake Total 1040 ml 120 ml Output Total 725 ml 400 ml Balance 315 ml -280 ml Exam Constitutional: alert, oriented Head: normocephalic Neck: supple Respiratory: diminished breath sounds Cardiovascular: nl pulses Gastrointestinal: soft Extremities: edema Results Result Diagram: 03/30/173 03/30/17442 Results 24 hrs Laboratory Tests Test 03/30/17 04:43 White Blood Count 7.3 # Red Blood Count 3.53 L Hemoglobin 11.0 L Hematocrit 35.2 L Mean Corpuscular Volume 99.7 Mean Corpuscular Hemoglobin 31.2 Mean Corpuscular Hemoglobin Concent 31.3 L Red Cell Distribution Width 13.0 Platelet Count 182 Mean Platelet Volume 11.5 H Neutrophils % 70.4 Lymphocytes % 18.4 Monocytes % 8.6 Eosinophils % 1.9 Basophils % 0.3 Nucleated Red Blood Cells % 0.0 Neutrophils # 5.1 Lymphocytes # 1.3 Monocytes # 0.6 Eosinophils # 0.1 Basophils # 0.0 Nucleated Red Blood Cells # 0.0 Sodium Level 142 Potassium Level 3.6 Chloride Level 92 L Carbon Dioxide Level 39 H Anion Gap 15 Blood Urea Nitrogen 19 Creatinine 1.12 Glucose Level 90 Calcium Level 9.0 Medications Medications Current Medications Ondansetron HCl (Zofran Inj) 4 mg Q6H PRN IV NAUSEA AND/OR VOMITING Last administered on 03/30/17 12:58; Admin Dose 4 MG; Start 03/11/17 at 12:30 Acetaminophen (Tylenol Tab) 650 mg Q6H PRN PO PAIN LEVEL 1-3 OR FEVER Last administered on 03/11/17 14:17; Admin Dose 650 MG; Start 03/11/17 at 12:30 Apixaban (Eliquis) 2.5 mg BID PO Last administered on 03/30/17 09:51; Admin Dose 2.5 MG; Start 03/11/17 at 21:00 Atorvastatin Calcium (Lipitor) 20 mg QHS PO Last administered on 03/29/17 21: 34; Admin Dose 20 MG; Start 03/11/17 at 21:00 Escitalopram Oxalate (Lexapro) 10 mg DAILY PO Last administered on 03/30/17 09 :52; Admin Dose 10 MG; Start 03/12/17 at 09:00 Furosemide (Lasix) 40 mg BID@06,18 PO Last administered on 03/30/17 06:07; Admin Dose 40 MG; Start 03/11/17 at 18:00 Morphine Sulfate (Ms Contin (Er)) 15 mg BID PO Last administered on 03/30/17 09:53; Admin Dose 15 MG; Start 03/11/17 at 21:00 Pantoprazole (Protonix Tab) 40 mg DAILY@06 PO Last administered on 03/30/17 06 :07; Admin Dose 40 MG; Start 03/12/17 at 06:00 Potassium Chloride (Klor-Con 20) 20 meq BID PO Last administered on 03/30/17 09:52; Admin Dose 20 MEQ; Start 03/11/17 at 21:00 Senna (Senokot) 1 tab DAILY PRN PO CONSTIPATION Last administered on 03/30/17 04:40; Admin Dose 1 TAB; Start 03/11/17 at 14:30 Morphine Sulfate (morphine) 4 mg Q4H PRN IV PAIN LEVEL 7-10 Last administered on 03/30/17 12:43; Admin Dose 4 MG; Start 03/18/17 at 11:11 Hydralazine HCl (Apresoline) 10 mg Q4H PRN IV ELEVATED BLOOD PRESSURE Last administered on 03/20/17 06:36; Admin Dose 10 MG; Start 03/20/17 at 00:30 Lorazepam (Ativan) 1 mg Q4 PRN IV AGITATION/ANXIETY Last administered on 15:36; Admin Dose 1 MG; Start 03/20/17 at 00:30 Hydrocodone Bit/ Homatropine Methylb (Hycodan Liquid) 10 ml TID PRN PO COUGH Last administered on 03/30/17 06:12; Admin Dose 10 ML; Start 03/26/17 at 18:30 LUBA EARLY Mar 30, 2017 13:46
[2017-03-30 14:24] VITALS: BP 118/81; RESP 18
[2017-03-30] MEDS: ACETAMINOPHEN 325 MG TAB PO PRN (15:52)
== END 2017-03-30 16:17 | disposition home health service (06) | DRG 180 ==
LOC: E/R 17:47 → MS4 23:35 → PP2 03-27 14:27
PROVIDERS: ADMIT Internal Medicine; ATTEND Internal Medicine
DX: C34.91 Malignant neoplasm of unspecified part of right bronchus or lung (principal); I50.33 Acute on chronic diastolic (congestive) heart failure; J96.11 Chronic respiratory failure with hypoxia; N17.9 Acute kidney failure, unspecified; J90 Pleural effusion, not elsewhere classified; I95.9 Hypotension, unspecified; E87.1 Hypo-osmolality and hyponatremia; D69.6 Thrombocytopenia, unspecified; J96.12 Chronic respiratory failure with hypercapnia; I82.623 Acute embolism and thrombosis of deep veins of upper extremity, bilateral; Z68.41 Body mass index [BMI] 40.0-44.9, adult; J98.19 Other pulmonary collapse; J98.11 Atelectasis; I48.0 Paroxysmal atrial fibrillation; I25.10 Atherosclerotic heart disease of native coronary artery without angina pectoris; E66.9 Obesity, unspecified; R06.00 Dyspnea, unspecified; D64.9 Anemia, unspecified; R07.9 Chest pain, unspecified; R00.1 Bradycardia, unspecified; E78.5 Hyperlipidemia, unspecified; E03.9 Hypothyroidism, unspecified; R60.0 Localized edema; J44.9 Chronic obstructive pulmonary disease, unspecified; Z79.82 Long term (current) use of aspirin; Z87.891 Personal history of nicotine dependence; Z87.01 Personal history of pneumonia (recurrent)
CPT/HCPCS: 36415; 36600; 71010; 71250; 72072; 80048; 80053; 82803; 83880; 84484; 85025; 87081; 93005; 94640; 94660; 94664; 96374; J0360; J2060; J2270; J2405; J7040

== ENCOUNTER 2017-06-01 01:21 | Inpatient (IN) | END 2017-07-03 15:40 | disposition home health service (06) | DRG 871 ==

== ENCOUNTER 2017-07-17 01:27 | Inpatient (IN) | END 2017-07-20 15:15 | disposition home health service (06) | DRG 180 ==

== ENCOUNTER 2017-07-27 00:49 | Inpatient (IN) | END 2017-08-04 17:25 | disposition home health service (06) | DRG 314 ==

== ENCOUNTER 2018-06-13 15:20 | Inpatient (IN) | payer MEDICAID ==
[~2018-06-13] VITALS: Ht 170.2 cm; Wt 90.5 kg
[~2018-06-13 15:20] MED LIST changes: -ESOM40CA PO; +FURO-110 PO; -FURO40TA4 PO; +Guaifenesin/Dm (Sr) PO; +HYDR4TAB51 PO; -HYDR5SYR PO; +LEVO75TA84 PO; -MORP15TA3 PO; +SENN-120 PO; -SENN-53 PO; -SYN75 PO; -VORI200T9 PO
[2018-06-13] MEDS ORDERED: ALBUTEROL 0.5% (NEB) 2.5 MG/0.5 ML AMP INH STA (15:30)
[2018-06-13] MEDS ORDERED: METHYLPREDNISOLONE 125 MG INJ IV STA (15:30)
--- NOTE | 2018-06-13 15:38 | ERD ---
ER Documentation Chief Complaint Chief Complaint bib ra from home for sob, hx of lung ca, received albuterol breathing tx HPI This is a 62-year-old man with a long history of metastatic lung carcinoma presenting with shortness of breath and difficulty breathing. He also has a history of COPD and uses albuterol intermittently. He denies fevers or chills, no chest pain, no vomiting or diarrhea, no calf or leg swelling. Patient is able to ambulate but states he is mostly bedbound and states the shortness of breath began a few days ago and has been getting worse. ROS All systems reviewed and are negative except as per history of present illness. Medications Home Meds Reported Medications Escitalopram Oxalate* (Escitalopram Oxalate*) 10 Mg Tablet, 10 MG PO DAILY, #30 TAB 06/13/18 Levothyroxine Sodium* (Levothyroxine Sodium*) 75 Mcg Tablet, 75 MCG PO BEFORE BREAKFAST, #30 TAB 06/13/18 Dronabinol* (Dronabinol*) 5 Mg Capsule, 5 MG PO BID, CAP 06/13/18 Furosemide* (Furosemide*) 40 Mg Tablet, 40 MG PO DAILY, TAB 06/13/18 Morphine Sulfate* (Oramorph SR*) 30 Mg Tablet.sa, 30 MG PO Q8, TAB.SA 06/13/18 Ondansetron Hcl* (Zofran*) 4 Mg Tablet, 4 MG PO Q8, TAB 06/13/18 Esomeprazole Mag Trihydrate (Nexium) 40 Mg Capsule.dr, 40 MG PO DAILY, #30 CAP 06/13/18 Discontinued Reported Medications Atorvastatin Calcium* (Atorvastatin Calcium*) 20 Mg Tablet, 20 MG PO QHS, #30 TAB 07/17/17 Discontinued Scripts Hydromorphone Hcl* (Dilaudid*) 4 Mg Tablet, 4 MG PO Q4H PRN for PAIN, #30 TAB Prov:LUBA EARLY 07/31/17 [Guaifenesin/Dm (Sr)] 1 TAB TABSR No Conflict Check, 1 TAB PO BID for 30 Days Prov:LUBA EARLY 06/29/17 Furosemide* (Lasix*) 20 Mg Tablet, 20 MG PO DAILY for 30 Days, TAB Prov:LUBA EARLY 06/29/17 Dronabinol* (Dronabinol*) 2.5 Mg Capsule, 5 MG PO AC MEALS for 30 Days, CAP Prov:LUBA EARLY 06/29/17 Sennosides* (Senna Lax*) 8.6 Mg Tablet, 1 TAB PO DAILY PRN for CONSTIPATION for 30 Days, TAB Prov:LUBA EARLY 03/09/17 Potassium Chloride* (K-Dur*) 20 Meq Tab.prt.sr, 20 MEQ PO BID for 30 Days Prov:LUBA EARLY 03/09/17 Pantoprazole* (Pantoprazole*) 40 Mg Tablet.dr, 40 MG PO DAILY@06 for 30 Days Prov:LUBA EARLY 03/09/17 Levothyroxine Sodium* (Synthroid*) 75 Mcg Tablet, 75 MCG PO BEFORE BREAKFAST for 30 Days, TAB Prov:LUBA EARLY 03/09/17 Escitalopram Oxalate* (Escitalopram Oxalate*) 10 Mg Tablet, 10 MG PO DAILY for 30 Days, TAB Prov:LUBA EARLY 03/09/17 Apixaban* (Eliquis*) 5 Mg Tablet, 2.5 MG PO BID for 30 Days, TAB Prov:PAM EARLYETLANA 03/09/17 Allergies Allergies: Coded Allergies: No Known Allergy (Unverified , 06/13/18) PMhx/Soc Metastatic non-small cell lung cancer, pericardial effusion, pleural effusions, anemia of malignancy, CHF, CAD, hypothyroidism, hyperlipidemia, atrial fibrillation, history of DVT History of Surgery: Yes (cholecystectomy,partial amputation R middle finger) Anesthesia Reaction: No Hx Neurological Disorder: No Hx Respiratory Disorders: Yes (PNA,COPD,Lung CA st. 4) Hx Cardiac Disorders: Yes (CHF,Afib,hyperlipidemia) Hx Psychiatric Problems: No Hx Miscellaneous Medical Probl: No Hx Alcohol Use: No Hx Substance Use: No Hx Tobacco Use: Yes (stopped 4 yrs ago) Smoking Status: Former smoker FmHx Family History: No diabetes Physical Exam Vitals Vital Signs Date Temp Pulse Resp B/P (MAP) Pulse Ox O2 O2 Flow FiO2 Time Delivery Rate 06/13/18 100 25 17:40 06/13/18 98.6 110 24 117/82 100 BIPAP 16:28 (94) 06/13/18 Bag Valve 16:08 Mask 06/13/18 128 100 60 16:01 06/13/18 98.6 127 19 121/65 100 15:22 (83) 06/13/18 98.6 132 19 119/75 100 Room Air 15:22 (90) Physical Exam GENERAL: Well-developed, appears dehydrated, afebrile, dyspneic HEENT: Dry mucous membranes, pink conjunctiva, no cervical spine tenderness or step-off deformities, no goiter, no jaundice or icterus, extraocular movements intact without pain. NEURO: Alert and oriented 3, cranial nerves II through XII intact bilaterally, pupils equal round reactive to light, no focal deficits or facial asymmetry, sensation intact distally Strength 5/5 in upper and lower extremities bilaterall y CARDIAC: Tachycardic and regular LUNGS: Poor breath sounds bilaterally, crackles at the bases, wheezing ABDOMEN: Soft nontender, no guarding, no rigidity, no rebound, no psoas sign no obturator sign. SKIN: Warm and dry to touch, no abrasions, contusions, or hematomas, no lacerations, no ecchymosis, no target lesions, and without ulcers EXTREMITIES: No clubbing cyanosis, 3+ pitting edema in the lower extremities bilaterally, calves are bilaterally symmetrical, no Homans sign, no popliteal cord sign. Distal pulses equal and bilateral PSYCH: Normal affect without agitation or irritability Result Diagram: 06/13/18 1539 06/13/18 1539 Results 24 hrs Laboratory Tests Test 06/13/18 15:39 White Blood Count 8.6 10^3/ul Red Blood Count 4.51 10^6/ul Hemoglobin 14.2 g/dl Hematocrit 44.4 % Mean Corpuscular Volume 98.4 fl Mean Corpuscular Hemoglobin 31.5 pg Mean Corpuscular Hemoglobin Concent 32.0 g/dl Red Cell Distribution Width 12.2 % Platelet Count 196 10^3/UL Mean Platelet Volume 10.2 fl Immature Granulocytes % 0.200 % Neutrophils % 65.1 % Lymphocytes % 27.2 % Monocytes % 6.2 % Eosinophils % 0.8 % Basophils % 0.5 % Nucleated Red Blood Cells % 0.0 /100WBC Immature Granulocytes # 0.020 10^3/ul Neutrophils # 5.6 10^3/ul Lymphocytes # 2.3 10^3/ul Monocytes # 0.5 10^3/ul Eosinophils # 0.1 10^3/ul Basophils # 0.0 10^3/ul Nucleated Red Blood Cells # 0.0 10^3/ul Sodium Level 141 mmol/L Potassium Level 3.2 mmol/L Chloride Level 97 mmol/L Carbon Dioxide Level 30 mmol/L Anion Gap 14 Blood Urea Nitrogen 19 mg/dl Creatinine 1.03 mg/dl Est Glomerular Filtrat Rate mL/min > 60 mL/min Glucose Level 115 mg/dl Calcium Level 10.0 mg/dl Total Bilirubin 0.6 mg/dl Direct Bilirubin 0.00 mg/dl Indirect Bilirubin 0.6 mg/dl Aspartate Amino Transf (AST/SGOT) 28 IU/L Alanine Aminotransferase (ALT/SGPT) 15 IU/L Alkaline Phosphatase 137 IU/L Troponin I < 0.012 ng/ml B-Type Natriuretic Peptide 3030 PG/ML Total Protein 8.3 g/dl Albumin 4.5 g/dl Lipase 33 U/L Current Medications Medications Dose Sig/Michael Start Time Status Last (Trade) Ordered Route PRN Stop Time Admin Dose Reason Admin Albuterol 10 mg ONCE STAT 06/13/18 DC 06/13/18 (Proventil INH 15:30 15:44 0.5% (Neb)) 06/13/18 15:35 125 mg ONCE STAT 06/13/18 DC 06/13/18 Methylprednis IV 15:30 16:02 olone Sodium 06/13/18 15:35 Succinate (Solu-Medrol) Morphine 4 mg ONCE STAT 06/13/18 DC 06/13/18 Sulfate IV 16:18 16:26 (morphine) 06/13/18 16:19 Ondansetron 4 mg ONCE STAT 06/13/18 DC 06/13/18 HCl (Zofran IV 16:18 16:26 Inj) 06/13/18 16:19 Furosemide 60 mg ONCE ONCE 06/13/18 DC 06/13/18 (Lasix) IV 16:30 16:47 06/13/18 16:31 IV Flush 10 ml STK-MED 06/13/18 DC 06/13/18 (NS 10 ml) ONCE .ROUTE 17:06 17:21 06/13/18 17:07 Sodium 100 ml @ ud STK-MED 06/13/18 DC 06/13/18 Chloride ONCE .ROUTE 17:06 17:21 06/13/18 17:07 Iohexol 100 ml @ ud STK-MED 06/13/18 DC 06/13/18 ONCE .ROUTE 17:06 17:21 06/13/18 17:07 Procedures/MDM IV line was established patient was placed on boilers and pressure vessels inspector rhythm strip revealed a narrow complex tachycardia at 130 bpm with upright P and T waves. Patient was afebrile EKG performed, read by me revealed a sinus tachycardia at 124 bpm, normal axis, narrow QRS complex, no concerning ST elevations or depressions noted 1 view chest x-ray performed, read by me revealed atelectatic changes bilaterall y, mass in the right, no acute infiltrates, no pneumothorax. Given the patient's severe dyspnea and past medical history I placed him on immediate BiPAP therapy and also administered albuterol 10 mg via nebulizer, methylprednisolone 125 mg IV x1, and furosemide 60 mg IV x1. For complaints of pain patient received morphine 4 mg IV and Zofran 4 mg IV CBC was normal, electrolytes revealed dehydration and mild hypokalemia, liver function tests were unremarkable, troponin was negative, BNP elevated at 3000, flu test negative Given the patient's initial tachypnea and tachycardia and his current risk factors I ordered CTA of the chest that was negative for pulmonary embolism. Critical Care: Time: 52 minutes, this was time separate from other billable procedures. Treatments/Evaluations: Close monitoring and treatment of unstable vital signs, cardiorespiratory, and neurologic status, while maintaining tight balance of fluid, respiratory, and cardiac interventions. Cardiac ultrasound and echocardiogram was performed revealing pericardial effusion Departure Diagnosis: Primary Impression: Acute respiratory failure Respiratory failure complication: hypoxia and hypercapnia Qualified Codes: J96.01 - Acute respiratory failure with hypoxia; J96.02 - Acute respiratory failure with hypercapnia Additional Impressions: Metastatic lung carcinoma Laterality: right Qualified Codes: C78.01 - Secondary malignant neoplasm of right lung Acute pericardial effusion CHF (congestive heart failure) Heart failure type: systolic Heart failure chronicity: acute Qualified Codes: I50.21 - Acute systolic (congestive) heart failure COPD (chronic obstructive pulmonary disease) COPD type: COPD with acute exacerbation Qualified Codes: J44.1 - Chronic obstructive pulmonary disease with (acute) exacerbation Condition: Serious CHAD HUTCHINSON MD Jun 13, 2018 15:38
[2018-06-13] MEDS ORDERED: ESOM40CA PO (16:02)
[2018-06-13] MEDS ORDERED: ONDA4TAB8 PO (16:03)
[2018-06-13] MEDS ORDERED: MORP-58 PO (16:04)
[2018-06-13] MEDS ORDERED: FURO40TA4 PO (16:04)
[2018-06-13] MEDS ORDERED: DRON5CAP2 PO (16:05)
[2018-06-13] MEDS ORDERED: ESCI10TA48 PO (16:06)
[2018-06-13] MEDS ORDERED: LEVO75TA5 PO (16:06)
[2018-06-13] MEDS ORDERED: morphine 4 MG/ML VIAL IV STA (16:18)
[2018-06-13] MEDS ORDERED: ONDANSETRON 4 MG INJ IV STA (16:18)
[2018-06-13] MEDS ORDERED: FUROSEMIDE 40 MG INJ IV ONE (16:30)
[2018-06-13] MEDS ORDERED: SOD CHLORIDE 0.9% 100 ML ONE (17:06)
[2018-06-13] MEDS ORDERED: IOHEXOL 100 ML ONE (17:06)
[2018-06-13] MEDS ORDERED: SOD CHLORIDE 0.9% 500 ML IV ONE ×2 (19:30→21:00)
--- NOTE | 2018-06-13 19:53 | CONS ---
DATE OF ADMISSION: 06/13/2018 DATE OF CONSULTATION: 06/13/2018 TYPE OF CONSULTATION: Cardiology. REASON FOR CONSULTATION: Pericardial effusion. REQUESTING PHYSICIAN: Maryam Farmer MD HISTORY OF PRESENT ILLNESS: Mr. Garcia is a 62-year-old male with a history of lung carcinoma, COPD, prior tobacco intake and none now, prior DVT, paroxysmal atrial fibrillation, dyslipidemia, hypothyroidism, coronary artery disease, multiple recurrent admits for shortness of breath, prior finding of pericardial effusion mild to moderate by echo in 07/2017, who presents with complaints of worsening shortness of breath, generalized weakness. Upon arrival, temperature was 98.6, blood pressure 121/65, pulse 127, respiratory rate 19, satting 100% on FiO2 of 60%. The patient's labs were notable for a white blood cell count of 8.6, hemoglobin 14.2, platelet count 196, sodium 141, potassium 3.2, creatinine 1.0, BUN 19, troponin negative. BNP of 3030. The patient underwent a CTA of the chest revealing no evidence of pulmonary embolism, enlarged pericardial effusion from prior scan, arterial calcification, chronic volume loss in right lung primarily in the upper lobe and middle lower lobes as well, likely diffuse idiopathic skeletal hyperostosis. The patient's electrocardiogram revealed a rhythm most consistent with sinus tachycardia, rate of 124, normal axis, normal intervals, low voltage, nonspecific ST-T abnormalities. The patient at this time is in the ER and has had a decrease in blood pressure down to 80s and awaits admit to the likely ICU. PAST MEDICAL HISTORY: As above in HPI. MEDICATIONS CURRENTLY IN HOSPITAL: IV fluid hydration. MEDICATIONS PRIOR TO ADMIT: 1. Lexapro. 2. Morphine. 3. Lasix 40 mg daily. 4. Marinol 5 mg p.o. b.i.d. 5. Nexium. 6. Zofran. 7. Synthroid. ALLERGIES: NO KNOWN DRUG ALLERGIES. SOCIAL HISTORY: No current tobacco, EtOH or illicit drug use. FAMILY HISTORY: No history of sudden cardiac or early CAD. REVIEW OF SYSTEMS: As above in HPI. CONSTITUTIONAL: No fevers, chills. PULMONARY: Shortness of breath, lung cancer, COPD. CARDIOVASCULAR: Possible pericardial effusion. GASTROINTESTINAL: No vomiting. GENITOURINARY: No hematuria. MUSCULOSKELETAL: Degenerative joint disease. PSYCHIATRIC: The patient denies depression. NEUROLOGIC: No documented history of CVA. ENDOCRINE: No documented history of diabetes mellitus or thyroid disease. PHYSICAL EXAMINATION: VITAL SIGNS: Temperature of 98.4, blood pressure 84/60, pulse 102, respiratory rate 23, satting 98%. GENERAL: The patient is alert, awake, complaining of shortness of breath, generalized weakness. NECK: JVP is approximately 9 to 10 cm of water. CHEST: Decreased breath sounds at bases bilaterally. HEART: Tachycardic, regular rhythm, normal S1, S2, I/ systolic murmur. ABDOMEN: Positive bowel sounds, soft. EXTREMITIES: No significant pitting edema, 1+ pulses bilateral posterior tibial. LABORATORY DATA: As above in HPI. No further labs for my review at this time. IMAGING STUDIES: As above in HPI. No further imaging studies for my review at this time. ELECTROCARDIOGRAM: As above in HPI. No further electrocardiograms for my review at this time. IMPRESSION: 1. Pericardial effusion, assess significance, previously has been mild to moderate. 2. Hypotension, acute. 3. Tachycardia. 4. Abnormal echocardiogram, assess for acute coronary syndrome. 5. Lung carcinoma. 6. Chronic obstructive pulmonary disease. 7. Increased BNP. RECOMMENDATIONS: 1. At this time, we would admit patient likely to ICU monitoring, following blood pressure closely. 2. We would give patient IV fluid bolus and follow blood pressure response. 3. Possible need for institution of pressor support. 4. We would check a 2D echo to reassess patient's pericardial effusion, assess significance and need for possible pericardiocentesis. 5. O2 support. 6. Follow up all culture data and consider initiation of antibiotic therapy. 7. Pain control. 8. Likely need for chronic steroids and bronchodilator therapy. Thank you for allowing me to take part in the care of this patient. I will continue to follow him very closely with you with further recommendations to be made as the patient progresses through his inpatient hospital clinical course and after completion of above studies. Dictated By: MARIAA JOY/BLANCA Conf#: [id number] DID#: [id number] CC: CHAD HUTCHINSON MD; MARYAM FARMER MD;*EndCC* MTDD
[2018-06-13] MEDS ORDERED: SOD CHLORIDE 0.9% 250 ML IV STA (20:02)
--- NOTE | 2018-06-13 21:05 | CONS ---
Date/Time of Note Date/Time of Note DATE: 06/13/18 TIME: 21:04 Assessment/Plan Assessment/Plan Assessment/Plan Lung cancer ST 4- FOR AT LEAST 5 YR!!!, LAST ADMISSION - ALMOST A YR AGO HOLD CHEMO RESTAGE WITH CT CAP THEN MORE STABLE Anemia.- ACD MONITOR HX Vtach, History of paroxysmal atrial fibrillation/atrial flutter, currently in sinus rhythm - in sinus now. Rate controlled. cardiology f-up Pericardial effusion with no sign of hemodynamic compromise at this time, mild to moderate by CT/CTA- per ECHO read by DR. Gaytan 2018 - small to moderate CTA- Interval enlargement of the pericardial effusion compared to the prior CT of 07/27/2017 CARD F-UP- NO ACUTE TAMPONADE HX Abnormal electrocardiogram, NO HX acute coronary syndrome Shortness of breath- MULTIFACTORIAL Hypertension, currently under reasonable control off of antihypertensives- con't med rx Dyslipidemia. Hypothyroidism. Result Diagram: 06/13/18 1539 06/13/18 1539 Results 24hrs Laboratory Tests Test 06/13/18 15:39 06/13/18 19:01 06/13/18 19:30 White Blood Count 8.6 # Red Blood Count 4.51 L Hemoglobin 14.2 Hematocrit 44.4 Mean Corpuscular Volume 98.4 Mean Corpuscular Hemoglobin 31.5 Mean Corpuscular 32.0 Hemoglobin Concent Red Cell Distribution Width 12.2 Platelet Count 196 # Mean Platelet Volume 10.2 Immature Granulocytes % 0.200 Neutrophils % 65.1 Lymphocytes % 27.2 Monocytes % 6.2 Eosinophils % 0.8 Basophils % 0.5 Nucleated Red Blood Cells % 0.0 Immature Granulocytes # 0.020 Neutrophils # 5.6 Lymphocytes # 2.3 Monocytes # 0.5 Eosinophils # 0.1 Basophils # 0.0 Nucleated Red Blood Cells # 0.0 Sodium Level 141 Potassium Level 3.2 L Chloride Level 97 Carbon Dioxide Level 30 Anion Gap 14 H Blood Urea Nitrogen 19 Creatinine 1.03 Est Glomerular Filtrat > 60 Rate mL/min Glucose Level 115 Calcium Level 10.0 Total Bilirubin 0.6 Direct Bilirubin 0.00 Indirect Bilirubin 0.6 Aspartate Amino 28 Transf (AST/SGOT) Alanine 15 Aminotransferase (ALT/SGPT) Alkaline Phosphatase 137 H Troponin I < 0.012 B-Type Natriuretic Peptide 3030 H Total Protein 8.3 H Albumin 4.5 Lipase 33 Thyroid Stimulating 9.030 H Hormone (TSH) Urine Color YELLOW Urine Clarity CLOUDY A Urine pH 6.0 Urine Specific [place] 1.040 H Urine Ketones TRACE A Urine Nitrite NEGATIVE Urine Bilirubin NEGATIVE Urine Urobilinogen NEGATIVE Urine Leukocyte Esterase NEGATIVE Urine Microscopic RBC 6 H Urine Microscopic WBC 5 Urine Squamous FEW Epithelial Cells Urine Bacteria FEW A Urine Mucus FEW A Urine Hemoglobin 1+ H Urine Glucose 1+ H Urine Total Protein 2+ H Blood Gas Specimen Source Blood arterial Arterial Blood Date Drawn 06/13/2018 7:50:53 PM Arterial Blood pH 7.473 H (Temp corrected) Arterial Blood pCO2 36.1 (Temp correct) Arterial Blood pO2 91.2 (Temp corrected) Arterial Blood HCO3 25.9 Arterial Blood Base Excess 2.4 Arterial Blood 96.8 Oxygen Saturation Jose Alfredo Test ACCEPTAB Arterial Blood Gas Right Radial Puncture Site Arterial 0.3 Blood Carboxyhemoglobin Arterial Blood Methemoglobin 0.1 Blood Gas A-a O2 44.2 H Differential Oxyhemoglobin Percent 96.4 Blood Gas Temperature 37.0 Blood Gas Modality HFNC VAPOTHERM FiO2 25.0 Blood Gas Notified Whom AA Blood Gas Notified Time 06/13/2018 8:05:46 PM Consultation Date/Type/Reason Admit Date/Time Date of Consultation: Jun 13, 2018 Type of Consult HEMEON Reason for Consultation LUNG CANCER Requesting Provider: MARYAM FARMER MD Hx of Present Illness The patient is a 62-year-old gentleman with metastatic lung cancer. The patient also has history of hypothyroidism. [facility] due to increasing shortness of breath. The patient normally at home uses about 2 to 2-1/2 liter of oxygen via nasal cannula. The patient reported significant shortness of breath even at rest which would get worse with minimal activity. REVIEW OF SYSTEMS: The patient did report chills and generalized weakness and anterior chest pressure. The patient did not have any radiation of pain to the left upper extremity. No reported nausea and vomiting. No reported abdominal pain. No reported leg edema. No reported headache, dizziness, or syncope. The rest of the review of systems is unremarkable. Denies weakness. BUN of 19, creatinine of 1. The patient denied any abdominal pain. No reported vomiting. No reported leg edema. No reported skin rash. No reported focal weakness. PREVIOUS HISTORY: The patient has a history of COPD and uses a metered dose in haler at home. Also significant for coronary artery disease and paroxysmal atrial fibrillation, along with COPD. The patient a few months ago had a similar episode of shortness of breath and was found to have pericardial effusion with tamponade back in 07/2017. Since then, the patient has been co mplaining of progressive shortness of breath, but it gets better on its own. The patient was seen in the ER and underwent a CT pulmonary angiogram. There was no evidence for embolism. There was interval enlargement of the pericardial effusion, also chronic volume loss of right lung, predominantly the upper lobe. These findings are stable compared to the previous examination in 07/2017. The patient continued to require high flow oxygen and also became hypotensive in the ER and after multiple boluses of IV fluids, he continues to remain hypoxemic and therefore the patient is being admitted to the ICU. The patient did not have any headache, dizziness or syncope. No history of abdominal pain. No history of leg edema. PAST MEDICAL HISTORY: As stated above. In addition, the patient also has foraminal stenosis at L4-L5 and L5-S1. PAST SURGICAL HISTORY: The patient is status post right middle finger amputation, cholecystectomy and rhinoplasty. SOCIAL HISTORY: Ex-smoker. No other drug abuse. ALLERGIES: NO KNOWN ALLERGIES. FAMILY HISTORY: Noncontributory. Past Medical History Medications Current Medications Sodium Chloride 500 ml @ 500 mls/hr Q1H ONCE IV Last administered on 06/13/18at 20:50; Admin Dose 500 MLS/HR; Start 06/13/18 at 21:00; Stop 06/13/18 at 21:59 Allergies: Coded Allergies: No Known Allergy (Unverified , 06/13/18) Social History Smoking Status: Former smoker Exam/Review of Systems Vital Signs Vitals Vital Signs Date Temp Pulse Resp B/P (MAP) Pulse Ox O2 O2 Flow FiO2 Time Delivery Rate 06/13/18 96 19 89/61 (70) 98 High Flow 20:33 06/13/18 98.4 18:34 06/13/18 25 17:40 Exam PHYSICAL EXAMINATION: GENERAL: The patient is awake and alert, fairly oriented. HEENT: No eye discharge or redness. Nose and ears are normal. Oropharynx grossly negative. NECK: Supple. No thyromegaly. CHEST: Diminished air entry at bases. No use of accessory muscles. CARDIOVASCULAR: S1, S2 normal. No murmur. ABDOMEN: Soft, nondistended, nontender, no palpable mass. EXTREMITIES: No leg edema. NEUROLOGICAL: The patient is awake, follows simple commands. Medications Medications Current Medications Sodium Chloride 500 ml @ 500 mls/hr Q1H ONCE IV Last administered on 06/13/18at 20:50; Admin Dose 500 MLS/HR; Start 06/13/18 at 21:00; Stop 06/13/18 at 21:59 DAHIANA BABCOCK MD Jun 13, 2018 21:05
[2018-06-13] MEDS ORDERED: NORepinephrine 8MG/250 ML (PMX 250 ML IV SCH (23:00)
--- NOTE | 2018-06-13 23:25 | EN ---
Date/Time of Note Date/Time of Note DATE: 06/13/18 TIME: 23:24 ER Progress Note I was called to the patient's bedside to place a triple-lumen catheter because the patient remained hypotensive and it programmer recommended starting levo central Line Note: Consent: [I had a discussion with the patient and family regarding the procedure and discussed risks, benefits, alternatives. They have given verbal informed consent and a document was signed and placed in the chart.] Indication: Critically ill patient requiring specialized vascular access for fluid or pressor management Location: Right IJ Indication: Hypotension Procedure: Sterile procedure was observed throughout insertion of the central line. The insertion site was prepped with sterile solution. Ultrasound-guided identification of the vein was performed. Insertion of a needle into the vein was obtained with return of dark, nonpulsatile blood. The wire was then threaded through the needle without complication. The wire was then identified within the vein using ultrasound. A small skin incision was made, the needle w as removed intact, dilation of the vein was performed and insertion of a triple lumen catheter was completed. The catheter was then sutured to the skin. All 3 ports alpesh back and flushed without difficulty. A sterile dressing was applied. The patient tolerated the procedure well there were no complications. Emergency Bedside Ultrasound: [The patient was verbally consented prior to procedure and understands the risks, benefits, and alternatives. The patient is agreeable to procedure and has given verbal consent.] Indication: Central line Probe Type: Linear Findings: Dynamic ultrasound utilizing compressive technique with both linear and horizontal views, additional images showing wire within the venous system were obtained. The images were saved along with patient information on a paper chart to be scanned into EMR. The patient tolerated the procedure well and there were no co mplications. A post-line chest x-ray was ordered as indicated. Levo to be used in TLC LARISA ABREU MD Jun 13, 2018 23:25
[2018-06-13] MEDS ORDERED: ACETAMINOPHEN 500 MG TAB PO PRN ×2 (23:30)
[2018-06-13] MEDS ORDERED: ONDANSETRON 4 MG INJ IV PRN (23:30)
[2018-06-14] VITALS (36 sets, daily range): BP systolic 96–181; BP diastolic 64–114; PULSE 82–111; RESP 10–21; Ht 170.2 cm; Wt 90.5 kg
[2018-06-14] MEDS: morphine (ER) 15 MG TAB PO SCH ×6 (00:07→23:22)
[2018-06-14] MEDS: CEFEPIME 1GM/50 ML (PMX) 50 ML IVPB SCH ×3 (00:35→20:46)
[2018-06-14] MEDS: LEVALBUTEROL (NEB) 0.63 MG/3 ML AMP HHN SCH ×4 (01:57→19:47)
[2018-06-14] MEDS: D5W-0.45 NACL + KCL 30 MEQ 1,000 ML IV SCH ×2 (02:24→20:47)
--- NOTE | 2018-06-14 03:25 | HP ---
DATE OF ADMISSION: 06/13/2018 CHIEF COMPLAINT: Shortness of breath. HISTORY OF PRESENT ILLNESS: The patient is a 62-year-old gentleman with metastatic lung cancer. The patient also has history of hypothyroidism. The patient was brought into the hospital today by his family due to increasing shortness of breath. The patient normally at home uses about 2 to 2-1/2 liter of oxygen via nasal cannula. The patient reported significant shortness of breath even at rest which would get worse with minimal activity. REVIEW OF SYSTEMS: The patient did report chills and generalized weakness and anterior chest pressure. The patient did not have any radiation of pain to the left upper extremity. No reported nausea and vomiting. No reported abdominal pain. No reported leg edema. No reported headache, dizziness, or syncope. The rest of the review of systems is unremarkable. Denies weakness. BUN of 19, creatinine of 1. The patient denied any abdominal pain. No reported vomiting. No reported leg edema. No reported skin rash. No reported focal weakness. PREVIOUS HISTORY: The patient has a history of COPD and uses a metered dose inhaler at home. Also significant for coronary artery disease and paroxysmal atrial fibrillation, along with COPD. The patient a few months ago had a similar episode of shortness of breath and was found to have pericardial effusion with tamponade back in 07/2017. Since then, the patient has been complaining of progressive shortness of breath, but it gets better on its own. The patient was seen in the ER and underwent a CT pulmonary angiogram. There was no evidence for embolism. There was interval enlargement of the pericardial effusion, also chronic volume loss of right lung, predominantly the upper lobe. These findings are stable compared to the previous examination in 07/2017. The patient continued to require high flow oxygen and also became hypotensive in the ER and after multiple boluses of IV fluids, he continues to remain hypoxemic and therefore the patient is being admitted to the ICU. The patient did not have any headache, dizziness or syncope. No history of abdominal pain. No history of leg edema. PAST MEDICAL HISTORY: As stated above. In addition, the patient also has foraminal stenosis at L4-L5 and L5-S1. PAST SURGICAL HISTORY: The patient is status post right middle finger amputation, cholecystectomy and rhinoplasty. SOCIAL HISTORY: Ex-smoker. No other drug abuse. ALLERGIES: NO KNOWN ALLERGIES. FAMILY HISTORY: Noncontributory. PHYSICAL EXAMINATION: GENERAL: The patient is awake and alert, fairly oriented. VITAL SIGNS: Temperature 98.6, pulse 127, respirations 19, blood pressure 120/65, O2 saturation 100% on 2 liters nasal cannula. HEENT: No eye discharge or redness. Nose and ears are normal. Oropharynx grossly negative. NECK: Supple. No thyromegaly. CHEST: Diminished air entry at bases. No use of accessory muscles. CARDIOVASCULAR: S1, S2 normal. No murmur. ABDOMEN: Soft, nondistended, nontender, no palpable mass. EXTREMITIES: No leg edema. NEUROLOGICAL: The patient is awake, follows simple commands. LABORATORY DATA: Sodium 141, potassium 3.2, BUN 19, creatinine 1, glucose 115, calcium 115, liver enzymes normal except alkaline phosphatase of 137, WBC 8.6, hemoglobin 14.2, platelet 196. Blood gases with pH of 7.47, pCO2 36 and pO2 91.2. IMPRESSION AND PLAN: 1. Acute hypoxemic respiratory failure. The patient's ABG revealed pH 7.43, pCO2 36, pO2 of 91.2 on high-flow nasal cannula at 25 liters. WBC 8.6, hemoglobin 14.2, platelet 196. The patient will be empirically given IV cefepime. Urine culture will be sent. Pulmonary consult with Dr. Castanon will also be obtained. We will also add Xopenex. 2. Hypothyroidism. The patient's TSH is elevated at 9. Therefore, we will increase dose of Synthroid. 3. Depression. Continue Lexapro. 4. Metastatic lung cancer. Continue to monitor in-house closely. I spoke with Dr. peters for consultation. Patient is getting chemo as an outpt 5. Chronic obstructive pulmonary disease. Continue breathing treatment. 6. Coronary artery disease. Antiplatelet and anticoagulants are on hold in case he needs paracentesis. We will wait for the CT result. Further recommendations will depend on the patient's hospital course. Plan of care was discussed with the patient's spouse. We will continue to follow him. Dictated By: MARYAM CONTE/BLANCA Conf#: [id number] DID#: [id number]
[2018-06-14] MEDS ORDERED: morphine (ER) 15 MG TAB PO SCH ×2 (06:00→09:00)
[2018-06-14] MEDS ORDERED: morphine (ER) 30 MG TAB PO SCH (06:00)
[2018-06-14] MEDS: LEVOTHYROXINE 75 MCG TAB PO SCH (06:15)
[2018-06-14] MEDS: PANTOPRAZOLE (EC) 40 MG TAB PO SCH (06:15)
[2018-06-14] MEDS ORDERED: LEVOTHYROXINE 75 MCG TAB PO SCH (07:00)
[2018-06-14] MEDS: ESCITALOPRAM 10 MG TAB PO SCH (08:49)
[2018-06-14] MEDS ORDERED: NON-FORMULARY/PATIENT OWN MED (Esomeprazole Mag Trihydrate (Nexium) 40 MG) PO SCH (09:00)
--- NOTE | 2018-06-14 09:00 | CONS ---
Date/Time of Note Date/Time of Note DATE: 06/14/18 TIME: 08:49 Assessment/Plan Assessment/Plan Hospital Course Lung cancer ST 4- FOR AT LEAST 5 YR!!!, LAST ADMISSION - ALMOST A YR AGO HOLD CHEMO RESTAGE WITH CT CAP THEN MORE STABLE Anemia.- ACD MONITOR HX Vtach, History of paroxysmal atrial fibrillation/atrial flutter, currently in sinus rhythm - in sinus now. Rate controlled. cardiology f-up Pericardial effusion with no sign of hemodynamic compromise at this time, mild to moderate by CT/CTA- per ECHO read by DR. Gaytan 2018 - small to moderate CTA- Interval enlargement of the pericardial effusion compared to the prior CT of 07/27/2017 CARD F-UP- NO ACUTE TAMPONADE HX Abnormal electrocardiogram, NO HX acute coronary syndrome Shortness of breath- MULTIFACTORIAL Hypertension, currently under reasonable control off of antihypertensives- con't med rx Dyslipidemia. Hypothyroidism. Result Diagram: 06/14/18 0500 06/14/18 0445 Results 24hrs Laboratory Tests Test 06/13/18 15:39 06/13/18 19:01 06/13/18 19:30 06/14/18 00:10 White Blood Count 8.6 # Red Blood Count 4.51 L Hemoglobin 14.2 Hematocrit 44.4 Mean Corpuscular 98.4 Volume Mean Corpuscular 31.5 Hemoglobin Mean Corpuscular 32.0 Hemoglobin Concen t Red Cell 12.2 Distribution Width Platelet Count 196 # Mean Platelet 10.2 Volume Immature 0.200 Granulocytes % Neutrophils % 65.1 Lymphocytes % 27.2 Monocytes % 6.2 Eosinophils % 0.8 Basophils % 0.5 Nucleated Red 0.0 Blood Cells % Immature 0.020 Granulocytes # Neutrophils # 5.6 Lymphocytes # 2.3 Monocytes # 0.5 Eosinophils # 0.1 Basophils # 0.0 Nucleated Red 0.0 Blood Cells # Sodium Level 141 Potassium Level 3.2 L Chloride Level 97 Carbon Dioxide 30 Level Anion Gap 14 H Blood Urea 19 Nitrogen Creatinine 1.03 Est Glomerular > 60 Filtrat Rate mL/min Glucose Level 115 Calcium Level 10.0 Total Bilirubin 0.6 Direct Bilirubin 0.00 Indirect 0.6 Bilirubin Aspartate Amino 28 Transf (AST/SGOT) Alanine 15 Aminotransferase (ALT/SGPT) Alkaline 137 H Phosphatase Troponin I < 0.012 0.026 B-Type 3030 H Natriuretic Peptide Total Protein 8.3 H Albumin 4.5 Lipase 33 Thyroid 9.030 H Stimulating Hormone (TSH) Urine Color YELLOW Urine Clarity CLOUDY A Urine pH 6.0 Urine Specific 1.040 H [place] Urine Ketones TRACE A Urine Nitrite NEGATIVE Urine Bilirubin NEGATIVE Urine NEGATIVE Urobilinogen Urine Leukocyte NEGATIVE Esterase Urine Microscopic 6 H RBC Urine Microscopic 5 WBC Urine Squamous FEW Epithelial Cells Urine Bacteria FEW A Urine Mucus FEW A Urine Hemoglobin 1+ H Urine Glucose 1+ H Urine Total 2+ H Protein Blood Gas Blood arterial Specimen Source Arterial Blood 06/13/2018 7:50:5 Date Drawn 3 PM Arterial Blood pH 7.473 H (Temp corrected) Arterial Blood 36.1 pCO2 (Temp correct) Arterial Blood 91.2 pO2 (Temp corrected) Arterial Blood 25.9 HCO3 Arterial Blood 2.4 Base Excess Arterial Blood 96.8 Oxygen Saturation Jose Alfredo Test ACCEPTAB Arterial Blood Right Radial Gas Puncture Site Arterial 0.3 Blood Carboxyhemo globin Arterial Blood 0.1 Methemoglobin Blood Gas A-a O2 44.2 H Differential Oxyhemoglobin 96.4 Percent Blood Gas 37.0 Temperature Blood Gas HFNC VAPOTHERM Modality FiO2 25.0 Blood Gas AA Notified Whom Blood Gas 06/13/2018 8:05:4 Notified Time 6 PM Test 06/14/18 04:45 06/14/18 05:00 Prothrombin Time 14.5 Prothrombin Time 1.1 Ratio INR International 1.12 Normalized Ratio Activated 29.0 Partial Thrombopl ast Time Sodium Level 136 Potassium Level 3.8 Chloride Level 96 L Carbon Dioxide 28 Level Anion Gap 12 Blood Urea 26 H Nitrogen Creatinine 1.19 Est Glomerular > 60 Filtrat Rate mL/min Glucose Level 165 Calcium Level 9.5 Troponin I 0.032 Triglycerides 65 Level Cholesterol Level 109 LDL Cholesterol, 59 Calculated HDL Cholesterol 37 Cholesterol/HDL 2.9 Ratio White Blood Count 8.3 Red Blood Count 3.59 #L Hemoglobin 11.4 L Hematocrit 34.5 #L Mean Corpuscular 96.1 Volume Mean Corpuscular 31.8 Hemoglobin Mean Corpuscular 33.0 Hemoglobin Concen t Red Cell 12.5 Distribution Width Platelet Count 155 # Mean Platelet 11.0 H Volume Immature 0.500 H Granulocytes % Neutrophils % 87.0 H Lymphocytes % 10.1 L Monocytes % 2.3 Eosinophils % 0.0 Basophils % 0.1 Nucleated Red 0.0 Blood Cells % Immature 0.040 H Granulocytes # Neutrophils # 7.2 Lymphocytes # 0.8 Monocytes # 0.2 L Eosinophils # 0.0 Basophils # 0.0 Nucleated Red 0.0 Blood Cells # Consultation Date/Type/Reason Admit Date/Time Jun 13, 2018 at 17:08 Initial Consult Date 06/13/18 Type of Consult [facility] Requesting Provider: MARYAM FARMER MD 24 HR Interval Summary Free Text/Dictation all noted D/W PT, RN AND DR SCHULTZ IN ICU FELLING SL BETTER POST triple-lumen catheter placement BP BETTER WELL ON ATB AND RESPIRATORY TREATMENT Exam/Review of Systems Vital Signs Vitals Vital Signs Date Temp Pulse Resp B/P (MAP) Pulse Ox O2 O2 Flow FiO2 Time Delivery Rate 06/14/18 98.0 86 17 100/79 100 Nasal 08:11 (86) Cannula 06/14/18 3.0 01:55 06/13/18 25 23:45 Intake and Output 06/13/18 06/13/18 06/14/18 1515:00 23:00 07:00 IntakeIntake Total 1000 ml 352.50 ml OutputOutput Total 300 ml BalanceBalance 1000 ml 52.50 ml Exam GENERAL: The patient is awake and alert, fairly oriented. WEAK AND PALE HEENT: No eye discharge or redness. Nose and ears are normal. Oropharynx grossly negative. NECK: Supple. No thyromegaly. CHEST: Diminished air entry at bases. No use of accessory muscles. + FEW RHONCHI CARDIOVASCULAR: S1, S2 normal. No murmur. ABDOMEN: Soft, nondistended, nontender, no palpable mass. EXTREMITIES: No leg edema. NEUROLOGICAL: The patient is awake, follows simple commands. Medications Medications Current Medications Norepinephrine 250 ml @ 1.875 mls/ hr TITRATE IV Last administered on 06/13/18at 22:51; Admin Dose 1.875 MLS/HR; Start 06/13/18 at 23:00 Cefepime HCl 50 ml @ 100 mls/hr Q12 IVPB Last administered on 06/14/18at 00:35; Admin Dose 100 MLS/HR; Start 06/13/18 at 23:30 Potassium Chloride/Dextrose/ Sod Cl 1,000 ml @ 50 mls/hr Q20H IV Last administered on 06/14/18at 02:24; Admin Dose 50 MLS/HR; Start 06/13/18 at 23:30 Acetaminophen (Tylenol Tab) 500 mg Q4H PRN PO MILD PAIN(1-3)OR ELEVATED TEMP; Start 06/13/18 at 23:30 Acetaminophen/ Hydrocodone Bitart ([place] (5/325)) 1 tab Q4H PRN PO MODERATE PAIN LEVEL 4-6; Start 06/13/18 at 23:30 Levalbuterol (Xopenex Neb) 0.63 mg Q6H RESP THERAPY HHN ; Start 06/14/18 at 02:00 Acetaminophen (Tylenol Tab) 500 mg Q6H PRN PO MILD PAIN(1-3)OR ELEVATED TEMP; Start 06/13/18 at 23:30 Ondansetron HCl (Zofran Inj) 4 mg Q4H PRN IV NAUSEA AND/OR VOMITING; Start 06/13/18 at 23:30 Escitalopram Oxalate (Lexapro) 10 mg DAILY PO ; Start 06/14/18 at 09:00 Levothyroxine Sodium (Synthroid) 88 mcg BEFORE BREAKFAST PO Last administered on 06/14/18at 06:15; Admin Dose 88 MCG; Start 06/14/18 at 07:00 Pantoprazole (Protonix Tab) 40 mg DAILY@06 PO Last administered on 06/14/18at 06:15; Admin Dose 40 MG; Start 06/14/18 at 06:00 Morphine Sulfate (Ms Contin (Er)) 30 mg TID PO Last administered on 06/14/18at 02:25; Admin Dose 30 MG; Start 06/14/18 at 02:00 Imaging Imaging [place] [id number] Radiology Main Line: [phone] DIAGNOSTIC IMAGING REPORT Patient: ELKIN JIMENEZ : 1955 Age: 62 Sex: M MR #: [id number] DOS: 06/13/18 0000 Ordering MD: CHAD HUTCHINSON MD Location: E/R Room/Bed: PROCEDURE: CT chest with contrast/PE protocol CLINICAL INDICATION: Chest pain and shortness of breath. Clinical concern for pulmonary embolism. TECHNIQUE: The study was performed from the thoracic inlet to the upper abdomen with the use of 99 cc of Omnipaque 350 intravenous contrast material per PE protocol. Coronal/sagittal reformatted images and coronal MIP images were generated. 3-D post processing was performed The images were reviewed on a PACS workstation. DICOM images are available. One or more of the following dose reduction techniques were used: Automated exposure control, adjustment of the mA and/or kV according to patient size, use of iterative reconstruction technique. CTDIvol = 46.79 mGy and DLP= 736.93 mGycm. COMPARISON: 07/26/2017 FINDINGS: Lungs, airway and pleura: The trachea is patent but retracted to the right of midline. There is no evidence of bronchiectasis, chronic volume loss with scarring and chronic atelectasis of the right upper lobe, right middle lobe and to a lesser extent right lower lobe similar to the prior study. The left lung is clear. A moderate chronic appearing loculated right pleural effusion is demonstrated extending to the apex. The left thorax shows no evidence of pleural effusion. Mediastinum, mo and cardiovascular: The heart is mildly enlarged with extensive coronary artery atherosclerotic calcification. Interval enlargement of the pericardial effusion compared to this examination, the maximum thickness measuring 2.9 cm adjacent to the left ventricle, previously 1.5 cm. The thoracic aorta is normal in caliber and without evidence of dissection. Moderate atherosclerotic calcification is present . There are no filling defects within the pulmonary arteries to suggest emboli. Calcified mediastinal lymph nodes are again noted as predominately precarinal location. The esophagus is normal in caliber. Osseous structures and musculoskeletal findings: There is preservation of bone architecture and mineralization with no evidence for fracture, lytic or blastic lesion. Bridging syndesmophytes of the thoracic spine are again noted likely diffuse idiopathic skeletal hyperostosis No chest wall abnormalities are present. The axillary regions are unremarkable. Visualized upper abdomen: Cholecystectomy clips are again noted. The adrenal glands are normal bilaterally. RPTAT:HJJR IMPRESSION: 1. No evidence for pulmonary embolism. 2. Interval enlargement of the pericardial effusion compared to the prior CT of 07/27/2017, mild cardiomegaly and extensive coronary artery atherosclerotic calcification are again noted 3. Chronic volume loss of the right lung predominately the upper lobe but middle and lower lobes as well consistent with chronic atelectasis or scarring with a chronic loculated right pleural effusion, findings resulting in deviation of the trachea and mediastinal structures to the right of midline. These findings are stable compared to the previous examination. 4. Aortic atherosclerosis is present. 5. Likely diffuse idiopathic skeletal hyperostosis of the thoracic spine Diaz Irene Physician Date Time Electronically viewed and signed by Diaz Irene, Physician on 06/13/2018 17:53 JR/ CC: CHAD HUTCHINSON MD [phone] DAHIANA BABCOCK MD Jun 14, 2018 08:59
--- NOTE | 2018-06-14 09:30 | CONS ---
Date/Time of Note Date/Time of Note DATE: 06/14/18 TIME: 09:26 Assessment/Plan Assessment/Plan Assessment/Plan Chest x-ray showing chronic appearing volume loss on the right side with upper lobe predominance. CTA of the chest is negative for pulmonary embolism. There is a small pericardial effusion. Patient is currently on high flow nasal cannula at 25 L/min, 30% FiO2. Assessment recommendations; 1. Patient admitted with hypoxemia with history of metastatic lung cancer with significant clinical improvement. 2. Difficult to rule out some element of postobstructive pneumonia. Patient currently on appropriate empiric antimicrobial regimen. 3. Interval resolution of hypotension after fluid resuscitation. 4. Underlying COPD. 5. History of paroxysmal atrial fibrillation. Patient currently in sinus rhythm. 6. History of hypothyroidism. Continue current supportive care. Wean down FiO2 as tolerated. Result Diagram: 06/14/18 0500 06/14/18 0445 Results 24hrs Laboratory Tests Test 06/13/18 15:39 06/13/18 19:01 06/13/18 19:30 06/14/18 00:10 White Blood Count 8.6 # Red Blood Count 4.51 L Hemoglobin 14.2 Hematocrit 44.4 Mean Corpuscular 98.4 Volume Mean Corpuscular 31.5 Hemoglobin Mean Corpuscular 32.0 Hemoglobin Concen t Red Cell 12.2 Distribution Width Platelet Count 196 # Mean Platelet 10.2 Volume Immature 0.200 Granulocytes % Neutrophils % 65.1 Lymphocytes % 27.2 Monocytes % 6.2 Eosinophils % 0.8 Basophils % 0.5 Nucleated Red 0.0 Blood Cells % Immature 0.020 Granulocytes # Neutrophils # 5.6 Lymphocytes # 2.3 Monocytes # 0.5 Eosinophils # 0.1 Basophils # 0.0 Nucleated Red 0.0 Blood Cells # Sodium Level 141 Potassium Level 3.2 L Chloride Level 97 Carbon Dioxide 30 Level Anion Gap 14 H Blood Urea 19 Nitrogen Creatinine 1.03 Est Glomerular > 60 Filtrat Rate mL/min Glucose Level 115 Calcium Level 10.0 Total Bilirubin 0.6 Direct Bilirubin 0.00 Indirect 0.6 Bilirubin Aspartate Amino 28 Transf (AST/SGOT) Alanine 15 Aminotransferase (ALT/SGPT) Alkaline 137 H Phosphatase Troponin I < 0.012 0.026 B-Type 3030 H Natriuretic Peptide Total Protein 8.3 H Albumin 4.5 Lipase 33 Thyroid 9.030 H Stimulating Hormone (TSH) Urine Color YELLOW Urine Clarity CLOUDY A Urine pH 6.0 Urine Specific 1.040 H [place] Urine Ketones TRACE A Urine Nitrite NEGATIVE Urine Bilirubin NEGATIVE Urine NEGATIVE Urobilinogen Urine Leukocyte NEGATIVE Esterase Urine Microscopic 6 H RBC Urine Microscopic 5 WBC Urine Squamous FEW Epithelial Cells Urine Bacteria FEW A Urine Mucus FEW A Urine Hemoglobin 1+ H Urine Glucose 1+ H Urine Total 2+ H Protein Blood Gas Blood arterial Specimen Source Arterial Blood 06/13/2018 7:50:5 Date Drawn 3 PM Arterial Blood pH 7.473 H (Temp corrected) Arterial Blood 36.1 pCO2 (Temp correct) Arterial Blood 91.2 pO2 (Temp corrected) Arterial Blood 25.9 HCO3 Arterial Blood 2.4 Base Excess Arterial Blood 96.8 Oxygen Saturation Jose Alfredo Test ACCEPTAB Arterial Blood Right Radial Gas Puncture Site Arterial 0.3 Blood Carboxyhemo globin Arterial Blood 0.1 Methemoglobin Blood Gas A-a O2 44.2 H Differential Oxyhemoglobin 96.4 Percent Blood Gas 37.0 Temperature Blood Gas HFNC VAPOTHERM Modality FiO2 25.0 Blood Gas AA Notified Whom Blood Gas 06/13/2018 8:05:4 Notified Time 6 PM Test 06/14/18 04:45 06/14/18 05:00 Prothrombin Time 14.5 Prothrombin Time 1.1 Ratio INR International 1.12 Normalized Ratio Activated 29.0 Partial Thrombopl ast Time Sodium Level 136 Potassium Level 3.8 Chloride Level 96 L Carbon Dioxide 28 Level Anion Gap 12 Blood Urea 26 H Nitrogen Creatinine 1.19 Est Glomerular > 60 Filtrat Rate mL/min Glucose Level 165 Calcium Level 9.5 Troponin I 0.032 Triglycerides 65 Level Cholesterol Level 109 LDL Cholesterol, 59 Calculated HDL Cholesterol 37 Cholesterol/HDL 2.9 Ratio White Blood Count 8.3 Red Blood Count 3.59 #L Hemoglobin 11.4 L Hematocrit 34.5 #L Mean Corpuscular 96.1 Volume Mean Corpuscular 31.8 Hemoglobin Mean Corpuscular 33.0 Hemoglobin Concen t Red Cell 12.5 Distribution Width Platelet Count 155 # Mean Platelet 11.0 H Volume Immature 0.500 H Granulocytes % Neutrophils % 87.0 H Lymphocytes % 10.1 L Monocytes % 2.3 Eosinophils % 0.0 Basophils % 0.1 Nucleated Red 0.0 Blood Cells % Immature 0.040 H Granulocytes # Neutrophils # 7.2 Lymphocytes # 0.8 Monocytes # 0.2 L Eosinophils # 0.0 Basophils # 0.0 Nucleated Red 0.0 Blood Cells # Consultation Date/Type/Reason Admit Date/Time Jun 13, 2018 at 17:08 Date of Consultation: Jun 14, 2018 Type of Consult Pulmonary/critical care Patient is a 62-year-old male who came into the emergency room with a 2-day history of increasing shortness of breath and hypoxemia. Patient also was found to be hypotensive and required IV fluid administration with improvement in vital signs. Patient has not required any pressor support. Patient has been started on high flow nasal cannula with stable O2 saturation as well as significant improvement in symptoms of shortness of breath. Patient denies any cough, chest pain, fever, chills, any sputum production or hemoptysis. Denies any recent nausea vomiting. Past medical history; 1. Metastatic lung cancer. 2. COPD. 3. History of paroxysmal atrial fibrillation. 4. Hypothyroidism. Medications; reviewed. Allergies; none. Social history; patient has history of smoking. Family history; noncontributory. 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 Currently on disability. Review of systems; denies any headache, seizures, visual changes. Any dysphagia. Any chest pain, angina wheezing sputum production or hemoptysis. Shortness of breath has significantly improved. Denies any abdominal pain, jez [place] vomiting. Patient has lost some weight. Denies any edema or orthopnea. Any skin changes or joint symptoms. General exam; elderly male, awake alert, currently in no distress. Past Medical History Medications Current Medications Norepinephrine 250 ml @ 1.875 mls/ hr TITRATE IV Last administered on 06/13/18at 22:51; Admin Dose 1.875 MLS/HR; Start 06/13/18 at 23:00 Cefepime HCl 50 ml @ 100 mls/hr Q12 IVPB Last administered on 06/14/18at 08:42; Admin Dose 100 MLS/HR; Start 06/13/18 at 23:30 Potassium Chloride/Dextrose/ Sod Cl 1,000 ml @ 50 mls/hr Q20H IV Last administered on 06/14/18at 02:24; Admin Dose 50 MLS/HR; Start 06/13/18 at 23:30 Acetaminophen (Tylenol Tab) 500 mg Q4H PRN PO MILD PAIN(1-3)OR ELEVATED TEMP; Start 06/13/18 at 23:30 Acetaminophen/ Hydrocodone Bitart ([place] (5/325)) 1 tab Q4H PRN PO MODERATE PAIN LEVEL 4-6; Start 06/13/18 at 23:30 Levalbuterol (Xopenex Neb) 0.63 mg Q6H RESP THERAPY HHN Last administered on 06/14/18at 09:04; Admin Dose 0.63 MG; Start 06/14/18 at 02:00 Acetaminophen (Tylenol Tab) 500 mg Q6H PRN PO MILD PAIN(1-3)OR ELEVATED TEMP; Start 06/13/18 at 23:30 Ondansetron HCl (Zofran Inj) 4 mg Q4H PRN IV NAUSEA AND/OR VOMITING; Start 06/13/18 at 23:30 Escitalopram Oxalate (Lexapro) 10 mg DAILY PO Last administered on 06/14/18at 08:49; Admin Dose 10 MG; Start 06/14/18 at 09:00 Levothyroxine Sodium (Synthroid) 88 mcg BEFORE BREAKFAST PO Last administered on 06/14/18at 06:15; Admin Dose 88 MCG; Start 06/14/18 at 07:00 Pantoprazole (Protonix Tab) 40 mg DAILY@06 PO Last administered on 06/14/18at 06:15; Admin Dose 40 MG; Start 06/14/18 at 06:00 Morphine Sulfate (Ms Contin (Er)) 30 mg TID PO Last administered on 06/14/18at 08:49; Admin Dose 30 MG; Start 06/14/18 at 02:00 Allergies: Coded Allergies: No Known Allergy (Unverified , 06/13/18) Social History Smoking Status: Former smoker Exam/Review of Systems Vital Signs Vitals Vital Signs Date Temp Pulse Resp B/P (MAP) Pulse Ox O2 O2 Flow FiO2 Time Delivery Rate 06/14/18 87 16 100 Nasal 25.0 09:04 Cannula 06/14/18 98.0 100/79 08:11 (86) 06/13/18 25 23:45 Intake and Output 06/13/18 06/13/18 06/14/18 1515:00 23:00 07:00 IntakeIntake Total 1000 ml 352.50 ml OutputOutput Total 300 ml BalanceBalance 1000 ml 52.50 ml Exam H EENT exam; supple neck, no JVD. No lymphadenopathy. Midline trachea. No thyromegaly. Pharynx is clear. Patient has fair dentition. No neck masses. Pupils are small bilaterally. Chest exam; diminished breath sounds right lung. Left lung is clear. S1-S2 audible, no murmurs. Regular rhythm. Abdomen exam; soft, no organomegaly. Nontender. Bowel sounds audible. Extremity exam; no peripheral edema clubbing. Pulses 1+. UPPER EXTREMITY SURGEON exam; no focal deficit. Medications Medications Current Medications Norepinephrine 250 ml @ 1.875 mls/ hr TITRATE IV Last administered on 06/13/18at 22:51; Admin Dose 1.875 MLS/HR; Start 06/13/18 at 23:00 Cefepime HCl 50 ml @ 100 mls/hr Q12 IVPB Last administered on 06/14/18at 08:42; Admin Dose 100 MLS/HR; Start 06/13/18 at 23:30 Potassium Chloride/Dextrose/ Sod Cl 1,000 ml @ 50 mls/hr Q20H IV Last adminis tered on 06/14/18at 02:24; Admin Dose 50 MLS/HR; Start 06/13/18 at 23:30 Acetaminophen (Tylenol Tab) 500 mg Q4H PRN PO MILD PAIN(1-3)OR ELEVATED TEMP; Start 06/13/18 at 23:30 Acetaminophen/ Hydrocodone Bitart ([place] (5/325)) 1 tab Q4H PRN PO MODERATE PAIN LEVEL 4-6; Start 06/13/18 at 23:30 Levalbuterol (Xopenex Neb) 0.63 mg Q6H RESP THERAPY HHN Last administered on 06/14/18at 09:04; Admin Dose 0.63 MG; Start 06/14/18 at 02:00 Acetaminophen (Tylenol Tab) 500 mg Q6H PRN PO MILD PAIN(1-3)OR ELEVATED TEMP; Start 06/13/18 at 23:30 Ondansetron HCl (Zofran Inj) 4 mg Q4H PRN IV NAUSEA AND/OR VOMITING; Start 06/13/18 at 23:30 Escitalopram Oxalate (Lexapro) 10 mg DAILY PO Last administered on 06/14/18at 08:49; Admin Dose 10 MG; Start 06/14/18 at 09:00 Levothyroxine Sodium (Synthroid) 88 mcg BEFORE BREAKFAST PO Last administered on 06/14/18at 06:15; Admin Dose 88 MCG; Start 06/14/18 at 07:00 Pantoprazole (Protonix Tab) 40 mg DAILY@06 PO Last administered on 06/14/18 06:15; Admin Dose 40 MG; Start 06/14/18 at 06:00 Morphine Sulfate (Ms Contin (Er)) 30 mg TID PO Last administered on 06/14/18 08:49; Admin Dose 30 MG; Start 06/14/18 at 02:00 ISMA CUTLER Jun 14, 2018 09:30
--- NOTE | 2018-06-14 12:57 | PN ---
Date/Time of Note Date/Time of Note DATE: 06/14/18 TIME: 12:57 Assessment/Plan VTE Prophylaxis Risk score (from [facility] [place])>0 risk: 12 SCD applied (from [facility] [place]): Yes SCD contraindicated: other Pharmacological prophylaxis: other Pharm contraindication: other Lines/Catheters IV [facility]ter [facility]from [facility] Central Line Central line still needed: Yes Assessment/Plan Assessment/Plan 1. Acute hypoxemic respiratory failure. - The patient's ABG revealed pH 7.43, pCO2 36, pO2 of 91.2 on high-flow nasal cannula at 25 liters. - per Pulmonary with Dr. Lazaro; cont Xopenex. 2. Hypothyroidism. The patient's TSH is elevated at 9. Therefore, we will increase dose of Synthroid. 3. Depression. - Continue Lexapro. 4. Metastatic lung cancer. Continue to monitor in-house closely. 5. Chronic obstructive pulmonary disease. Continue breathing treatment. 6. Coronary artery disease. Antiplatelet and anticoagulants are on hold in case he needs paracentesis. Result Diagram: 06/14/18 0500 06/14/18 0445 Results 24hrs Laboratory Tests Test 06/13/18 15:39 06/13/18 19:01 06/13/18 19:30 06/14/18 00:10 White Blood Count 8.6 # Red Blood Count 4.51 L Hemoglobin 14.2 Hematocrit 44.4 Mean Corpuscular 98.4 Volume Mean Corpuscular 31.5 Hemoglobin Mean Corpuscular 32.0 Hemoglobin Concen t Red Cell 12.2 Distribution Width Platelet Count 196 # Mean Platelet 10.2 Volume Immature 0.200 Granulocytes % Neutrophils % 65.1 Lymphocytes % 27.2 Monocytes % 6.2 Eosinophils % 0.8 Basophils % 0.5 Nucleated Red 0.0 Blood Cells % Immature 0.020 Granulocytes # Neutrophils # 5.6 Lymphocytes # 2.3 Monocytes # 0.5 Eosinophils # 0.1 Basophils # 0.0 Nucleated Red 0.0 Blood Cells # Sodium Level 141 Potassium Level 3.2 L Chloride Level 97 Carbon Dioxide 30 Level Anion Gap 14 H Blood Urea 19 Nitrogen Creatinine 1.03 Est Glomerular > 60 Filtrat Rate mL/min Glucose Level 115 Calcium Level 10.0 Total Bilirubin 0.6 Direct Bilirubin 0.00 Indirect 0.6 Bilirubin Aspartate Amino 28 Transf (AST/SGOT) Alanine 15 Aminotransferase (ALT/SGPT) Alkaline 137 H Phosphatase Troponin I < 0.012 0.026 B-Type 3030 H Natriuretic Peptide Total Protein 8.3 H Albumin 4.5 Lipase 33 Thyroid 9.030 H Stimulating Hormone (TSH) Urine Color YELLOW Urine Clarity CLOUDY A Urine pH 6.0 Urine Specific 1.040 H [place] Urine Ketones TRACE A Urine Nitrite NEGATIVE Urine Bilirubin NEGATIVE Urine NEGATIVE Urobilinogen Urine Leukocyte NEGATIVE Esterase Urine Microscopic 6 H RBC Urine Microscopic 5 WBC Urine Squamous FEW Epithelial Cells Urine Bacteria FEW A Urine Mucus FEW A Urine Hemoglobin 1+ H Urine Glucose 1+ H Urine Total 2+ H Protein Blood Gas Blood arterial Specimen Source Arterial Blood 06/13/2018 7:50:5 Date Drawn 3 PM Arterial Blood pH 7.473 H (Temp corrected) Arterial Blood 36.1 pCO2 (Temp correct) Arterial Blood 91.2 pO2 (Temp corrected) Arterial Blood 25.9 HCO3 Arterial Blood 2.4 Base Excess Arterial Blood 96.8 Oxygen Saturation Jose Alfredo Test ACCEPTAB Arterial Blood Right Radial Gas Puncture Site Arterial 0.3 Blood Carboxyhemo globin Arterial Blood 0.1 Methemoglobin Blood Gas A-a O2 44.2 H Differential Oxyhemoglobin 96.4 Percent Blood Gas 37.0 Temperature Blood Gas HFNC VAPOTHERM Modality FiO2 25.0 Blood Gas AA Notified Whom Blood Gas 06/13/2018 8:05:4 Notified Time 6 PM Test 06/14/18 04:45 06/14/18 05:00 Prothrombin Time 14.5 Prothrombin Time 1.1 Ratio INR International 1.12 Normalized Ratio Activated 29.0 Partial Thrombopl ast Time Sodium Level 136 Potassium Level 3.8 Chloride Level 96 L Carbon Dioxide 28 Level Anion Gap 12 Blood Urea 26 H Nitrogen Creatinine 1.19 Est Glomerular > 60 Filtrat Rate mL/min Glucose Level 165 Calcium Level 9.5 Troponin I 0.032 Triglycerides 65 Level Cholesterol Level 109 LDL Cholesterol, 59 Calculated HDL Cholesterol 37 Cholesterol/HDL 2.9 Ratio White Blood Count 8.3 Red Blood Count 3.59 #L Hemoglobin 11.4 L Hematocrit 34.5 #L Mean Corpuscular 96.1 Volume Mean Corpuscular 31.8 Hemoglobin Mean Corpuscular 33.0 Hemoglobin Concen t Red Cell 12.5 Distribution Width Platelet Count 155 # Mean Platelet 11.0 H Volume Immature 0.500 H Granulocytes % Neutrophils % 87.0 H Lymphocytes % 10.1 L Monocytes % 2.3 Eosinophils % 0.0 Basophils % 0.1 Nucleated Red 0.0 Blood Cells % Immature 0.040 H Granulocytes # Neutrophils # 7.2 Lymphocytes # 0.8 Monocytes # 0.2 L Eosinophils # 0.0 Basophils # 0.0 Nucleated Red 0.0 Blood Cells # Exam/Review of Systems Vital Signs Vitals Vital Signs Date Temp Pulse Resp B/P (MAP) Pulse Ox O2 O2 Flow FiO2 Time Delivery Rate 06/14/18 86 15 102/75 98 11:13 (84) 06/14/18 Nasal 2.5 09:49 Cannula 06/14/18 98.0 08:11 06/13/18 25 23:45 Intake and Output 06/13/18 06/13/18 06/14/18 1515:00 23:00 07:00 IntakeIntake Total 1000 ml 352.50 ml OutputOutput Total 300 ml BalanceBalance 1000 ml 52.50 ml Medications Medications Current Medications Norepinephrine 250 ml @ 1.875 mls/ hr TITRATE IV Last administered on 06/13/18at 22:51; Admin Dose 1.875 MLS/HR; Start 06/13/18 at 23:00 Cefepime HCl 50 ml @ 100 mls/hr Q12 IVPB Last administered on 06/14/18at 08:42; Admin Dose 100 MLS/HR; Start 06/13/18 at 23:30 Potassium Chloride/Dextrose/ Sod Cl 1,000 ml @ 50 mls/hr Q20H IV Last administered on 06/14/18at 02:24; Admin Dose 50 MLS/HR; Start 06/13/18 at 23:30 Acetaminophen (Tylenol Tab) 500 mg Q4H PRN PO MILD PAIN(1-3)OR ELEVATED TEMP; Start 06/13/18 at 23:30 Acetaminophen/ Hydrocodone Bitart ([place] (5/325)) 1 tab Q4H PRN PO MODERATE PAIN LEVEL 4-6; Start 06/13/18 at 23:30 Levalbuterol (Xopenex Neb) 0.63 mg Q6H RESP THERAPY HHN Last administered on at 09:04; Admin Dose 0.63 MG; Start 06/14/18 at 02:00 Acetaminophen (Tylenol Tab) 500 mg Q6H PRN PO MILD PAIN(1-3)OR ELEVATED TEMP; Start 06/13/18 at 23:30 Ondansetron HCl (Zofran Inj) 4 mg Q4H PRN IV NAUSEA AND/OR VOMITING; Start 06/13/18 at 23:30 Escitalopram Oxalate (Lexapro) 10 mg DAILY PO Last administered on 06/14/18 08:49; Admin Dose 10 MG; Start 06/14/18 at 09:00 Levothyroxine Sodium (Synthroid) 88 mcg BEFORE BREAKFAST PO Last administered on 06/14/18 06:15; Admin Dose 88 MCG; Start 06/14/18 at 07:00 Pantoprazole (Protonix Tab) 40 mg DAILY@06 PO Last administered on 06/14/18 06:15; Admin Dose 40 MG; Start 06/14/18 at 06:00 Morphine Sulfate (Ms Contin (Er)) 30 mg TID PO Last administered on 06/14/18 08:49; Admin Dose 30 MG; Start 06/14/18 at 02:00 TRAMAINE ELLSWORTH Jun 14, 2018 12:57
--- NOTE | 2018-06-14 12:57 | RADRPT ---
Vent Rate: 87 bpm RR Interval: 0 msec PA Interval: 244 msec QRS Duration: 78 msec QT Interval: 384 msec QTC Interval: 462 msec P-R-T [place]: 51 - 42 - 49 degrees Sinus rhythm with 1st degree AV block Otherwise normal ECG Electronically Signed By: César Venegas [id number]
--- NOTE | 2018-06-14 13:10 | CONS ---
Date/Time of Note Date/Time of Note DATE: 06/14/18 TIME: 13:05 Assessment/Plan Assessment/Plan Hospital Course IMPRESSION: 1. Pericardial effusion, assess significance, previously has been mild to moderate.- Very minimal increase compared to prior 08/12 and thus moderate by echo this admit with patient currently improved hemodynamics and no signs of clinical tamponade at this time 2. Hypotension, acute. 3. Tachycardia. 4. Abnormal echocardiogram, assess for acute coronary syndrome. 5. Lung carcinoma. 6. Chronic obstructive pulmonary disease. 7. Increased BNP. Recc -ICU or tele if BP remains stable -Continue abx's and follow volume status/HR clsoely and f/u cx data -Continue bronchodilators Result Diagram: 06/14/18 0500 06/14/18 0445 Results 24hrs Laboratory Tests Test 06/13/18 15:39 06/13/18 19:01 06/13/18 19:30 06/14/18 00:10 White Blood Count 8.6 # Red Blood Count 4.51 L Hemoglobin 14.2 Hematocrit 44.4 Mean Corpuscular 98.4 Volume Mean Corpuscular 31.5 Hemoglobin Mean Corpuscular 32.0 Hemoglobin Concen t Red Cell 12.2 Distribution Width Platelet Count 196 # Mean Platelet 10.2 Volume Immature 0.200 Granulocytes % Neutrophils % 65.1 Lymphocytes % 27.2 Monocytes % 6.2 Eosinophils % 0.8 Basophils % 0.5 Nucleated Red 0.0 Blood Cells % Immature 0.020 Granulocytes # Neutrophils # 5.6 Lymphocytes # 2.3 Monocytes # 0.5 Eosinophils # 0.1 Basophils # 0.0 Nucleated Red 0.0 Blood Cells # Sodium Level 141 Potassium Level 3.2 L Chloride Level 97 Carbon Dioxide 30 Level Anion Gap 14 H Blood Urea 19 Nitrogen Creatinine 1.03 Est Glomerular > 60 Filtrat Rate mL/min Glucose Level 115 Calcium Level 10.0 Total Bilirubin 0.6 Direct Bilirubin 0.00 Indirect 0.6 Bilirubin Aspartate Amino 28 Transf (AST/SGOT) Alanine 15 Aminotransferase (ALT/SGPT) Alkaline 137 H Phosphatase Troponin I < 0.012 0.026 B-Type 3030 H Natriuretic Peptide Total Protein 8.3 H Albumin 4.5 Lipase 33 Thyroid 9.030 H Stimulating Hormone (TSH) Urine Color YELLOW Urine Clarity CLOUDY A Urine pH 6.0 Urine Specific 1.040 H [place] Urine Ketones TRACE A Urine Nitrite NEGATIVE Urine Bilirubin NEGATIVE Urine NEGATIVE Urobilinogen Urine Leukocyte NEGATIVE Esterase Urine Microscopic 6 H RBC Urine Microscopic 5 WBC Urine Squamous FEW Epithelial Cells Urine Bacteria FEW A Urine Mucus FEW A Urine Hemoglobin 1+ H Urine Glucose 1+ H Urine Total 2+ H Protein Blood Gas Blood arterial Specimen Source Arterial Blood 06/13/2018 7:50:5 Date Drawn 3 PM Arterial Blood pH 7.473 H (Temp corrected) Arterial Blood 36.1 pCO2 (Temp correct) Arterial Blood 91.2 pO2 (Temp corrected) Arterial Blood 25.9 HCO3 Arterial Blood 2.4 Base Excess Arterial Blood 96.8 Oxygen Saturation Jose Alfredo Test ACCEPTAB Arterial Blood Right Radial Gas Puncture Site Arterial 0.3 Blood Carboxyhemo globin Arterial Blood 0.1 Methemoglobin Blood Gas A-a O2 44.2 H Differential Oxyhemoglobin 96.4 Percent Blood Gas 37.0 Temperature Blood Gas HFNC VAPOTHERM Modality FiO2 25.0 Blood Gas AA Notified Whom Blood Gas 06/13/2018 8:05:4 Notified Time 6 PM Test 06/14/18 04:45 06/14/18 05:00 Prothrombin Time 14.5 Prothrombin Time 1.1 Ratio INR International 1.12 Normalized Ratio Activated 29.0 Partial Thrombopl ast Time Sodium Level 136 Potassium Level 3.8 Chloride Level 96 L Carbon Dioxide 28 Level Anion Gap 12 Blood Urea 26 H Nitrogen Creatinine 1.19 Est Glomerular > 60 Filtrat Rate mL/min Glucose Level 165 Calcium Level 9.5 Troponin I 0.032 Triglycerides 65 Level Cholesterol Level 109 LDL Cholesterol, 59 Calculated HDL Cholesterol 37 Cholesterol/HDL 2.9 Ratio White Blood Count 8.3 Red Blood Count 3.59 #L Hemoglobin 11.4 L Hematocrit 34.5 #L Mean Corpuscular 96.1 Volume Mean Corpuscular 31.8 Hemoglobin Mean Corpuscular 33.0 Hemoglobin Concen t Red Cell 12.5 Distribution Width Platelet Count 155 # Mean Platelet 11.0 H Volume Immature 0.500 H Granulocytes % Neutrophils % 87.0 H Lymphocytes % 10.1 L Monocytes % 2.3 Eosinophils % 0.0 Basophils % 0.1 Nucleated Red 0.0 Blood Cells % Immature 0.040 H Granulocytes # Neutrophils # 7.2 Lymphocytes # 0.8 Monocytes # 0.2 L Eosinophils # 0.0 Basophils # 0.0 Nucleated Red 0.0 Blood Cells # Consultation Date/Type/Reason Admit Date/Time Jun 13, 2018 at 17:08 Initial Consult Date 06/14/18 Type of Consult cardiology Reason for Consultation pericardial effusion Requesting Provider: MARYAM FARMER MD Exam/Review of Systems Vital Signs Vitals Vital Signs Date Temp Pulse Resp B/P (MAP) Pulse Ox O2 O2 Flow FiO2 Time Delivery Rate 06/14/18 86 15 102/75 98 11:13 (84) 06/14/18 Nasal 2.5 09:49 Cannula 06/14/18 98.0 08:11 06/13/18 25 23:45 Intake and Output 06/13/18 06/13/18 06/14/18 1515:00 23:00 07:00 IntakeIntake Total 1000 ml 352.50 ml OutputOutput Total 300 ml BalanceBalance 1000 ml 52.50 ml Exam Review of Systems: CONSTITUTIONAL: No fevers, chills. PULMONARY: ongoing sob CARDIOVASCULAR: No chest pain/palpitations GASTROINTESTINAL: No nausea/vomiting. GENITOURINARY: No hematuria/dysuria. MUSCULOSKELETAL: No myagias/arthalgias. PSYCHIATRIC: The patient denies depression. NEUROLOGIC: No weakness Constitutional: alert Psych: no complaints Head: normocephalic ENMT: mucosa pink and moist Neck: supple, jvd (9 cm water) Respiratory: diminished breath sounds (at bases/B) Cardiovascular: regular rate and rhythm Gastrointestinal: soft, non-tender Musculoskeletal: muscle tone (normal) Extremities: edema (none) Neurological: other (No focal deficits) Medications Medications Current Medications Norepinephrine 250 ml @ 1.875 mls/ hr TITRATE IV Last administered on 06/13/18at 22:51; Admin Dose 1.875 MLS/HR; Start 06/13/18 at 23:00 Cefepime HCl 50 ml @ 100 mls/hr Q12 IVPB Last administered on 06/14/18at 08:42; Admin Dose 100 MLS/HR; Start 06/13/18 at 23:30 Potassium Chloride/Dextrose/ Sod Cl 1,000 ml @ 50 mls/hr Q20H IV Last administered on 06/14/18at 02:24; Admin Dose 50 MLS/HR; Start 06/13/18 at 23:30 Acetaminophen (Tylenol Tab) 500 mg Q4H PRN PO MILD PAIN(1-3)OR ELEVATED TEMP; Start 06/13/18 at 23:30 Acetaminophen/ Hydrocodone Bitart ([place] (5/325)) 1 tab Q4H PRN PO MODERATE PAIN LEVEL 4-6; Start 06/13/18 at 23:30 Levalbuterol (Xopenex Neb) 0.63 mg Q6H RESP THERAPY HHN Last administered on 06/14/18at 09:04; Admin Dose 0.63 MG; Start 06/14/18 at 02:00 Acetaminophen (Tylenol Tab) 500 mg Q6H PRN PO MILD PAIN(1-3)OR ELEVATED TEMP; Start 06/13/18 at 23:30 Ondansetron HCl (Zofran Inj) 4 mg Q4H PRN IV NAUSEA AND/OR VOMITING; Start 06/13/18 at 23:30 Escitalopram Oxalate (Lexapro) 10 mg DAILY PO Last administered on 06/14/18at 08:49; Admin Dose 10 MG; Start 06/14/18 at 09:00 Levothyroxine Sodium (Synthroid) 88 mcg BEFORE BREAKFAST PO Last administered on 06/14/18at 06:15; Admin Dose 88 MCG; Start 06/14/18 at 07:00 Pantoprazole (Protonix Tab) 40 mg DAILY@06 PO Last administered on 06/14/18at 06:15; Admin Dose 40 MG; Start 06/14/18 at 06:00 Morphine Sulfate (Ms Contin (Er)) 30 mg TID PO Last administered on 06/14/18at 08:49; Admin Dose 30 MG; Start 06/14/18 at 02:00 MARIAA ÁLVAREZ Jun 14, 2018 13:10
--- NOTE | 2018-06-14 19:04 | RADRPT ---
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 Physician: CHAD HUTCHINSON Quality: Limited Procedures: Transthoracic echocardiogram with complete 2D, M-Mode, and doppler examination. Indications: Pericardial Effusion. 2D/M Mode Doppler Measurement Value Normal Ranges Measurement Value Normal Ranges LVIDd 2D 3.9 3.5 - 5.6 cm AV Mean Oh 0.9 m/sec LVIDs 2D 2.6 2.1 - 4.1 cm AV Mean PG 4.0 mmHg LVPWd 2D 1.2 0.6 - 1.1 cm AV Peak Oh 1.3 m/sec IVSd 2D 1.0 0.6 - 1.1 cm AV Peak PG 7.0 mmHg AoR Diam 2D 3.2 2.0 - 3.7 cm AV VTI 20.2 cm LA Dimen 2D 3.4 2.3 - 4.0 cm LVOT Mean Oh 0.5 m/sec IVC Diam 1.6 1.2 - 2.0 LVOT Mean PG 1.0 mmHg LVOT Peak Oh 0.8 m/sec LVOT Peak PG 2.0 mmHg Findings Left Ventricle: Normal left ventricular systolic function. Normal left ventricular cavity size. Mild concentric left ventricular hypertrophy. Ejection fraction is visually estimated at 6065 %. Right Ventricle: Normal right ventricular size. Normal right ventricular systolic function. Left Atrium: The left atrium is normal in size. Right Atrium: The right atrium is normal in size. Mitral Valve: Normal appearance and function of the mitral valve with trace physiologic regurgitation. Aortic Valve: Normal appearance of the aortic valve. No significant aortic stenosis or insufficiency. Tricuspid Valve: Normal appearance of the tricuspid valve. Unable to obtain RVSP due to minimal presence of tricuspid regurgitation. Pulmonic Valve: Pulmonic valve not well visualized. Pericardium: Moderate pericardial effusion. Aorta: Not well visualized. IVC: Normal size and normal respiratory collapse consistent with normal right atrial pressure. Conclusions Normal left ventricular systolic function. Normal left ventricular cavity size. Mild concentric left ventricular hypertrophy. Ejection fraction is visually estimated at 60-65 %. Normal appearance and function of the mitral valve with trace physiologic regurgitation. Normal appearance of the tricuspid valve. Unable to obtain RVSP due to minimal presence of tricuspid regurgitation. Moderate pericardial effusion without definite tamponade physiology. Electronically Signed By: John Gaytan 14-Jun-2018 19:03:54 -0800 Patient Name: ELKIN JIMENEZ Study Date: 13-Jun-2018 [id number]
[2018-06-15] VITALS (13 sets, daily range): BP systolic 97–125; BP diastolic 65–79; PULSE 70–92; RESP 18
[2018-06-15] MEDS: LEVALBUTEROL (NEB) 0.63 MG/3 ML AMP HHN SCH ×5 (02:00→20:19)
[2018-06-15] MEDS: LEVOTHYROXINE 75 MCG TAB PO SCH (06:24)
[2018-06-15] MEDS: PANTOPRAZOLE (EC) 40 MG TAB PO SCH (06:24)
[2018-06-15] MEDS: ENOXAPARIN 30 MG/0.3 ML SYG SC SCH (09:00)
[2018-06-15] MEDS: ESCITALOPRAM 10 MG TAB PO SCH (09:14)
[2018-06-15] MEDS: CEFEPIME 1GM/50 ML (PMX) 50 ML IVPB SCH ×2 (09:14→22:00)
[2018-06-15] MEDS: morphine (ER) 15 MG TAB PO SCH ×3 (10:26→22:00)
--- NOTE | 2018-06-15 13:41 | CONS ---
Date/Time of Note Date/Time of Note DATE: 06/15/18 TIME: 13:39 Assessment/Plan Assessment/Plan Assessment/Plan 1. Pericardial effusion, assess significance, previously has been mild to moderate.- Very minimal increase compared to prior 08/12 and thus moderate by echo this admit with patient currently improved hemodynamics and no signs of clinical tamponade at this time - pt doing better by exam, will monitor clinical ly now. 2. Hypotension, acute - improved with gentle hydration. 3. Tachycardia- better now. 4. Abnormal echocardiogram, assess for acute coronary syndrome. 5. Lung carcinoma- ovearll poor prognosis, but pt doing well as outpt therapy now. 6. Chronic obstructive pulmonary disease- con;t med rx. 7. Increased BNP. Result Diagram: 06/14/18 0500 06/14/18 0445 Consultation Date/Type/Reason Admit Date/Time Jun 13, 2018 at 17:08 Initial Consult Date 06/14/18 Requesting Provider: MARYAM FARMER MD 24 HR Interval Summary Free Text/Dictation NO acute events - BP in good range - no CP now - will monitor clinically. ROS: No fever, no chills, no nausea, no vomiting, no diarrhea/constipation - fatigue No recent weight changes No chest pain, no PND, no orthopnea - mild SOB, hronic No dizziness, blurred vision No thirst, no heat or cold intolerance Exam/Review of Systems Vital Signs Vitals Vital Signs Date Temp Pulse Resp B/P (MAP) Pulse Ox O2 O2 Flow FiO2 Time Delivery Rate 06/15/18 86 13:23 06/15/18 97.9 18 105/67 99 11:34 (80) 06/15/18 2.5 10:00 06/15/18 Nasal 08:15 Cannula 06/14/18 30 19:47 Intake and Output 06/14/18 06/14/18 06/15/18 1414:59 22:59 06:59 IntakeIntake Total 980 ml OutputOutput Total 200 ml 1000 ml BalanceBalance -200 ml -20 ml Exam General: WN/WD/NAD, AOx 3 HEENT: Unicetric/atraumatic/EOMI (follow commands) NECK: JVD elevated, no thyromegaly Lymph: no lymphadenopathy HEART: regular with no S3, II/ systolic murmur at apex, no rub LUNGS: Coarse sounds + crackles ABD: soft, NT, ND, +BS : Intact Neuro: non focal SKIN: chronic changes EXT: trace edema Medications Medications Current Medications Norepinephrine 250 ml @ 1.875 mls/ hr TITRATE IV Last administered on 06/13/18at 22:51; Admin Dose 1.875 MLS/HR; Start 06/13/18 at 23:00 Cefepime HCl 50 ml @ 100 mls/hr Q12 IVPB Last administered on 06/15/18at 09:14; Admin Dose 100 MLS/HR; Start 06/13/18 at 23:30 Potassium Chloride/Dextrose/ Sod Cl 1,000 ml @ 50 mls/hr Q20H IV Last administered on 06/14/18 20:47; Admin Dose 50 MLS/HR; Start 06/13/18 at 23:30 Acetaminophen (Tylenol Tab) 500 mg Q4H PRN PO MILD PAIN(1-3)OR ELEVATED TEMP; Start 06/13/18 at 23:30 Acetaminophen/ Hydrocodone Bitart ([place] (5/325)) 1 tab Q4H PRN PO MODERATE SALOME N LEVEL 4-6; Start 06/13/18 at 23:30 Levalbuterol (Xopenex Neb) 0.63 mg Q6H RESP THERAPY HHN Last administered on 06/15/18at 09:42; Admin Dose 0.63 MG; Start 06/14/18 at 02:00 Acetaminophen (Tylenol Tab) 500 mg Q6H PRN PO MILD PAIN(1-3)OR ELEVATED TEMP; Start 06/13/18 at 23:30 Ondansetron HCl (Zofran Inj) 4 mg Q4H PRN IV NAUSEA AND/OR VOMITING; Start 06/13/18 at 23:30 Escitalopram Oxalate (Lexapro) 10 mg DAILY PO Last administered on 06/15/18 09:14; Admin Dose 10 MG; Start 06/14/18 at 09:00 Levothyroxine Sodium (Synthroid) 88 mcg BEFORE BREAKFAST PO Last administered on 06/15/18 06:24; Admin Dose 88 MCG; Start 06/14/18 at 07:00 Pantoprazole (Protonix Tab) 40 mg DAILY@06 PO Last administered on 06/15/18 06:24; Admin Dose 40 MG; Start 06/14/18 at 06:00 Morphine Sulfate (Ms Contin (Er)) 30 mg TID PO Last administered on 06/15/18at 10:26; Admin Dose 30 MG; Start 06/14/18 at 02:00 Enoxaparin Sodium (Lovenox) 30 mg DAILY SC ; Start 06/15/18 at 09:00 FRANCIS ESPINAL MD Jun 15, 2018 13:41
[2018-06-15] MEDS: HYDROCODONE/APAP (5/325) TAB PO PRN (15:01)
[2018-06-15] MEDS: D5W-0.45 NACL + KCL 30 MEQ 1,000 ML IV SCH (17:37)
--- NOTE | 2018-06-15 19:17 | CONS ---
Date/Time of Note Date/Time of Note DATE: 06/15/18 TIME: 19:15 Assessment/Plan Assessment/Plan Hospital Course Lung cancer ST 4- FOR AT LEAST 5 YR!!!, LAST ADMISSION - ALMOST A YR AGO HOLD CHEMO RESTAGE WITH CT CAP THEN MORE STABLE Anemia.- ACD MONITOR HX Vtach, History of paroxysmal atrial fibrillation/atrial flutter, currently in sinus rhythm - in sinus now. Rate controlled. cardiology f-up Pericardial effusion with no sign of hemodynamic compromise at this time, mild to moderate by CT/CTA- per ECHO read by DR. Gaytan 2018 - small to moderate CTA- Interval enlargement of the pericardial effusion compared to the prior CT of 07/27/2017 CARD F-UP- NO ACUTE TAMPONADE HX Abnormal electrocardiogram, NO HX acute coronary syndrome Shortness of breath- MULTIFACTORIAL Hypertension, currently under reasonable control off of antihypertensives- con't med rx Dyslipidemia. Hypothyroidism. Result Diagram: 06/14/18 0500 06/14/18 0445 Consultation Date/Type/Reason Admit Date/Time Jun 13, 2018 at 17:08 Initial Consult Date 06/13/18 Type of Consult [facility] Requesting Provider: MARYAM FARMER MD 24 HR Interval Summary Free Text/Dictation all noted felling better Exam/Review of Systems Vital Signs Vitals Vital Signs Date Temp Pulse Resp B/P (MAP) Pulse Ox O2 O2 Flow FiO2 Time Delivery Rate 06/15/18 83 16:15 06/15/18 98.0 18 97/68 (78) 98 15:49 06/15/18 Nasal 2.5 14:10 Cannula 06/14/18 30 19:47 Intake and Output 06/14/18 06/14/18 06/15/18 1515:00 23:00 07:00 IntakeIntake Total 980 ml OutputOutput Total 200 ml 1000 ml BalanceBalance -200 ml -20 ml Exam GENERAL: The patient is awake and alert, fairly oriented. WEAK AND PALE HEENT: No eye discharge or redness. Nose and ears are normal. Oropharynx grossly negative. NECK: Supple. No thyromegaly. CHEST: Diminished air entry at bases. No use of accessory muscles. + FEW RHONCHI CARDIOVASCULAR: S1, S2 normal. No murmur. ABDOMEN: Soft, nondistended, nontender, no palpable mass. EXTREMITIES: No leg edema. NEUROLOGICAL: The patient is awake, follows simple commands. Medications Medications Current Medications Cefepime HCl 50 ml @ 100 mls/hr Q12 IVPB Last administered on 06/15/18 09:14; Admin Dose 100 MLS/HR; Start 06/13/18 at 23:30 Potassium Chloride/Dextrose/ Sod Cl 1,000 ml @ 50 mls/hr Q20H IV Last administered on 06/15/18 17:37; Admin Dose 50 MLS/HR; Start 06/13/18 at 23:30 Acetaminophen (Tylenol Tab) 500 mg Q4H PRN PO MILD PAIN(1-3)OR ELEVATED TEMP; Start 06/13/18 at 23:30 Acetaminophen/ Hydrocodone Bitart ([place] (5/325)) 1 tab Q4H PRN PO MODERATE PAIN LEVEL 4-6 Last administered on 06/15/18 15:01; Admin Dose 1 TAB; Start 06/13/18 at 23:30 Levalbuterol (Xopenex Neb) 0.63 mg Q6H RESP THERAPY HHN Last administered on 06/15/18 09:42; Admin Dose 0.63 MG; Start 06/14/18 at 02:00 Acetaminophen (Tylenol Tab) 500 mg Q6H PRN PO MILD PAIN(1-3)OR ELEVATED TEMP; Start 06/13/18 at 23:30 Ondansetron HCl (Zofran Inj) 4 mg Q4H PRN IV NAUSEA AND/OR VOMITING; Start 06/13/18 at 23:30 Escitalopram Oxalate (Lexapro) 10 mg DAILY PO Last administered on 06/15/18 09:14; Admin Dose 10 MG; Start 06/14/18 at 09:00 Levothyroxine Sodium (Synthroid) 88 mcg BEFORE BREAKFAST PO Last administered on 06/15/18 06:24; Admin Dose 88 MCG; Start 06/14/18 at 07:00 Pantoprazole (Protonix Tab) 40 mg DAILY@06 PO Last administered on 06/15/18 06:24; Admin Dose 40 MG; Start 06/14/18 at 06:00 Morphine Sulfate (Ms Contin (Er)) 30 mg TID PO Last administered on 06/15/18 17:37; Admin Dose 30 MG; Start 06/14/18 at 02:00 Enoxaparin Sodium (Lovenox) 30 mg DAILY SC ; Start 06/15/18 at 09:00 DAHIANA BABCOCK MD Jun 15, 2018 19:17
[2018-06-16] VITALS (8 sets, daily range): BP systolic 105–122; BP diastolic 70–73; PULSE 69–87; RESP 18
[2018-06-16] MEDS: HYDROCODONE/APAP (5/325) TAB PO PRN (04:47)
[2018-06-16] MEDS: LEVOTHYROXINE 75 MCG TAB PO SCH (06:04)
[2018-06-16] MEDS: PANTOPRAZOLE (EC) 40 MG TAB PO SCH (06:04)
[2018-06-16] MEDS: LEVALBUTEROL (NEB) 0.63 MG/3 ML AMP HHN SCH ×2 (07:42→14:00)
[2018-06-16] MEDS: CEFEPIME 1GM/50 ML (PMX) 50 ML IVPB SCH (08:16)
[2018-06-16] MEDS: ESCITALOPRAM 10 MG TAB PO SCH (08:17)
[2018-06-16] MEDS: ENOXAPARIN 30 MG/0.3 ML SYG SC SCH (08:24)
[2018-06-16] MEDS: morphine (ER) 15 MG TAB PO SCH ×2 (08:44→13:28)
--- NOTE | 2018-06-16 11:58 | CONS ---
Date/Time of Note Date/Time of Note DATE: 06/16/18 TIME: 11:56 Assessment/Plan Assessment/Plan Assessment/Plan 1. Pericardial effusion, assess significance, previously has been mild to moderate.- Very minimal increase compared to prior 08/12 and thus moderate by echo this admit with patient currently improved hemodynamics and no signs of clinical tamponade at this time - pt doing better by exam, will monitor clinical ly now. Better clinically. 2. Hypotension, acute - improved with gentle hydration. Stable - con't Med Rx. 3. Tachycardia- better now. Treated. 4. Abnormal echocardiogram, assess for acute coronary syndrome. 5. Lung carcinoma- ovearll poor prognosis, but pt doing well as outpt therapy now. Overall poor prognosis - I will favor eraly discharge to maximize time at home. 6. Chronic obstructive pulmonary disease- con;t med rx. 7. Increased BNP. Result Diagram: 06/14/18 0500 06/14/18 0445 Consultation Date/Type/Reason Admit Date/Time Jun 13, 2018 at 17:08 Initial Consult Date 06/14/18 Requesting Provider: MARYAM FARMER MD 24 HR Interval Summary Free Text/Dictation Pt much better overall- hemodynamically astable - Overall poor prognosis - I will favor eraly discharge to maximize time at home. ROS: No fever, no chills, no nausea, no vomiting, no diarrhea/constipation No recent weight changes No chest pain, no PND, no orthopnea - stable chronic SOB. No dizziness, blurred vision No thirst, no heat or cold intolerance Exam/Review of Systems Vital Signs Vitals Vital Signs Date Temp Pulse Resp B/P (MAP) Pulse Ox O2 O2 Flow FiO2 Time Delivery Rate 06/16/18 87 08:14 06/16/18 Nasal 2.5 08:02 Cannula 06/16/18 98.0 18 105/73 98 07:50 (84) 06/14/18 30 19:47 Intake and Output 06/15/18 06/15/18 06/16/18 1515:00 23:00 07:00 IntakeIntake Total 300 ml 400 ml OutputOutput Total 720 ml BalanceBalance -420 ml 400 ml Exam General: WN/WD/NAD, AOx 3 HEENT: Unicetric/atraumatic/EOMI ( follow commands) NECK: JVD elevated, no thyromegaly Lymph: no lymphadenopathy HEART: regular with no S3, II/ systolic murmur at apex, no rub LUNGS: Coarse sounds with ronchi ABD: soft, NT, ND, +BS : Intact Neuro: non focal SKIN: chronic changes EXT: trace edema Medications Medications Current Medications Cefepime HCl 50 ml @ 100 mls/hr Q12 IVPB Last administered on 06/16/18 08:16; Admin Dose 100 MLS/HR; Start 06/13/18 at 23:30 Potassium Chloride/Dextrose/ Sod Cl 1,000 ml @ 50 mls/hr Q20H IV Last administered on 06/15/18 17:37; Admin Dose 50 MLS/HR; Start 06/13/18 at 23:30 Acetaminophen (Tylenol Tab) 500 mg Q4H PRN PO MILD PAIN(1-3)OR ELEVATED TEMP; Start 06/13/18 at 23:30 Acetaminophen/ Hydrocodone Bitart ([place] (5/325)) 1 tab Q4H PRN PO MODERATE PAIN LEVEL 4-6 Last administered on 06/16/18 04:47; Admin Dose 1 TAB; Start 06/13/18 at 23:30 Levalbuterol (Xopenex Neb) 0.63 mg Q6H RESP THERAPY HHN Last administered on 06/16/18 07:42; Admin Dose 0.63 MG; Start 06/14/18 at 02:00 Acetaminophen (Tylenol Tab) 500 mg Q6H PRN PO MILD PAIN(1-3)OR ELEVATED TEMP; Start 06/13/18 at 23:30 Ondansetron HCl (Zofran Inj) 4 mg Q4H PRN IV NAUSEA AND/OR VOMITING Last administered on 06/16/18 04:47; Admin Dose 4 MG; Start 06/13/18 at 23:30 Escitalopram Oxalate (Lexapro) 10 mg DAILY PO Last administered on 06/16/18 08:17; Admin Dose 10 MG; Start 06/14/18 at 09:00 Levothyroxine Sodium (Synthroid) 88 mcg BEFORE BREAKFAST PO Last administered on 06/16/18 06:04; Admin Dose 88 MCG; Start 06/14/18 at 07:00 Pantoprazole (Protonix Tab) 40 mg DAILY@06 PO Last administered on 06/16/18 06:04; Admin Dose 40 MG; Start 06/14/18 at 06:00 Morphine Sulfate (Ms Contin (Er)) 30 mg TID PO Last administered on 06/16/18at 08:44; Admin Dose 30 MG; Start 06/14/18 at 02:00 Enoxaparin Sodium (Lovenox) 30 mg DAILY SC Last administered on 06/16/18at 08:24; Admin Dose 30 MG; Start 06/15/18 at 09:00 FRANCIS ESPINAL MD Jun 16, 2018 11:58
--- NOTE | 2018-06-16 12:46 | PN ---
Date/Time of Note Date/Time of Note DATE: 06/16/18 TIME: 12:46 Assessment/Plan VTE Prophylaxis Risk score (from Nsg)>0 risk: 3 SCD applied (from Nsg): Yes Lines/Catheters IV Catheter Type (from Nrsg): Central Line Assessment/Plan Result Diagram: 06/14/18 0500 06/14/18 0445 Subjective 24 Hr Interval Summary Free Text/Dictation 06/15/2018- Exam/Review of Systems Vital Signs Vitals Vital Signs Date Temp Pulse Resp B/P (MAP) Pulse Ox O2 O2 Flow FiO2 Time Delivery Rate 06/16/18 86 12:27 06/16/18 Nasal 2.5 08:02 Cannula 06/16/18 98.0 18 105/73 98 07:50 (84) 06/14/18 30 19:47 Intake and Output 06/15/18 06/15/18 06/16/18 1515:00 23:00 07:00 IntakeIntake Total 300 ml 400 ml OutputOutput Total 720 ml BalanceBalance -420 ml 400 ml Medications Medications Current Medications Cefepime HCl 50 ml @ 100 mls/hr Q12 IVPB Last administered on 06/16/18at 08:16; Admin Dose 100 MLS/HR; Start 06/13/18 at 23:30 Potassium Chloride/Dextrose/ Sod Cl 1,000 ml @ 50 mls/hr Q20H IV Last administered on 06/15/18at 17:37; Admin Dose 50 MLS/HR; Start 06/13/18 at 23:30 Acetaminophen (Tylenol Tab) 500 mg Q4H PRN PO MILD PAIN(1-3)OR ELEVATED TEMP; Start 06/13/18 at 23:30 Acetaminophen/ Hydrocodone Bitart ([place] (5/325)) 1 tab Q4H PRN PO MODERATE PAIN LEVEL 4-6 Last administered on 06/16/18at 04:47; Admin Dose 1 TAB; Start 06/13/18 at 23:30 Levalbuterol (Xopenex Neb) 0.63 mg Q6H RESP THERAPY HHN Last administered on 06/16/18at 07:42; Admin Dose 0.63 MG; Start 06/14/18 at 02:00 Acetaminophen (Tylenol Tab) 500 mg Q6H PRN PO MILD PAIN(1-3)OR ELEVATED TEMP; Start 06/13/18 at 23:30 Ondansetron HCl (Zofran Inj) 4 mg Q4H PRN IV NAUSEA AND/OR VOMITING Last administered on 06/16/18 04:47; Admin Dose 4 MG; Start 06/13/18 at 23:30 Escitalopram Oxalate (Lexapro) 10 mg DAILY PO Last administered on 06/16/18 08:17; Admin Dose 10 MG; Start 06/14/18 at 09:00 Levothyroxine Sodium (Synthroid) 88 mcg BEFORE BREAKFAST PO Last administered on 06/16/18 06:04; Admin Dose 88 MCG; Start 06/14/18 at 07:00 Pantoprazole (Protonix Tab) 40 mg DAILY@06 PO Last administered on 06/16/18 06:04; Admin Dose 40 MG; Start 06/14/18 at 06:00 Morphine Sulfate (Ms Contin (Er)) 30 mg TID PO Last administered on 06/16/18 08:44; Admin Dose 30 MG; Start 06/14/18 at 02:00 Enoxaparin Sodium (Lovenox) 30 mg DAILY SC Last administered on 06/16/18 08: 24; Admin Dose 30 MG; Start 06/15/18 at 09:00 TRAMAINE ELLSWORTH Jun 16, 2018 12:46
--- NOTE | 2018-06-16 12:47 | DS ---
Date/Time of Note Date/Time of Note DATE: 06/16/18 TIME: 12:47 Discharge Summary Admission/Discharge Info Admit Date/Time Jun 13, 2018 at 17:08 Discharge Date/Time Home Meds Reported Medications Escitalopram Oxalate* (Escitalopram Oxalate*) 10 Mg Tablet, 10 MG PO DAILY, #30 TAB 06/13/18 Levothyroxine Sodium* (Levothyroxine Sodium*) 75 Mcg Tablet, 75 MCG PO BEFORE BR EAKFAST, #30 TAB 06/13/18 Dronabinol* (Dronabinol*) 5 Mg Capsule, 5 MG PO BID, CAP 06/13/18 Furosemide* (Furosemide*) 40 Mg Tablet, 40 MG PO DAILY, TAB 06/13/18 Morphine Sulfate* (Oramorph SR*) 30 Mg Tablet.sa, 30 MG PO Q8, TAB.SA 06/13/18 Ondansetron Hcl* (Zofran*) 4 Mg Tablet, 4 MG PO Q8, TAB 06/13/18 Esomeprazole Mag Trihydrate (Nexium) 40 Mg Capsule.dr, 40 MG PO DAILY, #30 CAP 06/13/18 Discontinued Reported Medications Atorvastatin Calcium* (Atorvastatin Calcium*) 20 Mg Tablet, 20 MG PO QHS, #30 TAB 07/17/17 Discontinued Scripts Hydromorphone Hcl* (Dilaudid*) 4 Mg Tablet, 4 MG PO Q4H PRN for PAIN, #30 TAB Prov:LUBA EARLY 07/31/17 [Guaifenesin/Dm (Sr)] 1 TAB TABSR No Conflict Check, 1 TAB PO BID for 30 Days Prov:LUBA EARLY 06/29/17 Furosemide* (Lasix*) 20 Mg Tablet, 20 MG PO DAILY for 30 Days, TAB Prov:LUBA EARLY 06/29/17 Dronabinol* (Dronabinol*) 2.5 Mg Capsule, 5 MG PO AC MEALS for 30 Days, CAP Prov:LUBA EARLY 06/29/17 Sennosides* (Senna Lax*) 8.6 Mg Tablet, 1 TAB PO DAILY PRN for CONSTIPATION for 30 Days, TAB Prov:LUBA EARLY 03/09/17 Potassium Chloride* (K-Dur*) 20 Meq Tab.prt.sr, 20 MEQ PO BID for 30 Days Prov:LUBA EARLY 03/09/17 Pantoprazole* (Pantoprazole*) 40 Mg Tablet.dr, 40 MG PO DAILY@06 for 30 Days Prov:LUBA EARLY 03/09/17 Levothyroxine Sodium* (Synthroid*) 75 Mcg Tablet, 75 MCG PO BEFORE BREAKFAST for 30 Days, TAB Prov:LUBA EARLY 03/09/17 Escitalopram Oxalate* (Escitalopram Oxalate*) 10 Mg Tablet, 10 MG PO DAILY for 30 Days, TAB Prov:LUBA EARLY 03/09/17 Apixaban* (Eliquis*) 5 Mg Tablet, 2.5 MG PO BID for 30 Days, TAB Prov:LUBA EARLY 03/09/17 Primary Care Provider Not On Staff Doctor TRAMAINE ELLSWORTH Jun 16, 2018 12:47
--- NOTE | 2018-06-16 12:48 | PDOCDIS ---
Discharge Instructions CONDITION [id number] Patient Condition: [id number] Stable HOME CARE INSTRUCTIONS: [id number] Diet Instructions: [id number] ACTIVITY: [id number] Activity Restrictions: [id number] Slowly Increase Activity Rest between Activity Avoid heavy lifting Do not Drive Do not operate Machinery Do not operate Power Tool Avoid Heavy Housework [id number] Bathing Restrictions: [id number] Sponge Bath FOLLOW UP/APPOINTMENTS Follow-up Plan - FU with Primary MD x 1 week - FU with Oncology as recommended - Call 911 or go to the nearest hospital if symptoms get worse; patient verbalized understanding discahrge instructions Dw Dr Garcia/staff TRAMAINE ELLSWORTH Jun 16, 2018 12:48
[2018-06-16] MEDS ORDERED: LEVO500T48 PO (12:50)
--- NOTE | 2018-06-16 22:53 | CONS ---
Date/Time of Note Date/Time of Note DATE: 06/16/18 TIME: 10:52 Assessment/Plan Assessment/Plan Hospital Course Lung cancer ST 4- FOR AT LEAST 5 YR!!!, LAST ADMISSION - ALMOST A YR AGO HOLD CHEMO RESTAGE WITH CT CAP THEN MORE STABLE Anemia.- ACD MONITOR HX Vtach, History of paroxysmal atrial fibrillation/atrial flutter, currently in sinus rhythm - in sinus now. Rate controlled. cardiology f-up Pericardial effusion with no sign of hemodynamic compromise at this time, mild to moderate by CT/CTA- per ECHO read by DR. Gaytan 2018 - small to moderate CTA- Interval enlargement of the pericardial effusion compared to the prior CT of 07/27/2017 CARD F-UP- NO ACUTE TAMPONADE HX Abnormal electrocardiogram, NO HX acute coronary syndrome Shortness of breath- MULTIFACTORIAL Hypertension, currently under reasonable control off of antihypertensives- con't med rx Dyslipidemia. Hypothyroidism. OK TO DC Result Diagram: 06/14/18 0500 06/14/18 0445 Consultation Date/Type/Reason Admit Date/Time Jun 13, 2018 at 17:08 Initial Consult Date 06/13/18 Type of Consult [facility] Requesting Provider: MARYAM FARMER MD 24 HR Interval Summary Free Text/Dictation NAD Exam/Review of Systems Vital Signs Vitals Vital Signs Date Temp Pulse Resp B/P (MAP) Pulse Ox O2 O2 Flow FiO2 Time Delivery Rate 06/16/18 98.0 73 18 112/73 98 16:46 (86) 06/16/18 2.5 14:36 06/16/18 Nasal 14:00 Cannula 06/14/18 30 19:47 Intake and Output 06/15/18 06/15/18 06/16/18 1515:00 23:00 07:00 IntakeIntake Total 300 ml 400 ml OutputOutput Total 720 ml BalanceBalance -420 ml 400 ml Exam GENERAL: The patient is awake and alert, fairly oriented. WEAK AND PALE HEENT: No eye discharge or redness. Nose and ears are normal. Oropharynx grossly negative. NECK: Supple. No thyromegaly. CHEST: Diminished air entry at bases. No use of accessory muscles. + FEW RHONCHI CARDIOVASCULAR: S1, S2 normal. No murmur. ABDOMEN: Soft, nondistended, nontender, no palpable mass. EXTREMITIES: No leg edema. NEUROLOGICAL: The patient is awake, follows simple commands. DAHIANA BABCOCK MD Jun 16, 2018 22:53
== END 2018-06-16 17:08 | disposition home or self-care (01) | DRG 208 ==
LOC: E/R 15:20 → ICU 17:08 → CANRESERV 22:46 → EDBEDREQSVC 22:52 → TEL 06-14 21:09
PROVIDERS: ADMIT Internal Medicine; ATTEND Internal Medicine
PROC: 05HM33Z Insertion of Infusion Device into Right Internal Jugular Vein, Percutaneous Approach (ICD-10-PCS; 2018-06-13)
PROC: B543ZZA Ultrasonography of Right Jugular Veins, Guidance (ICD-10-PCS; 2018-06-13)
PROC: 4A033R1 Measurement of Arterial Saturation, Peripheral, Percutaneous Approach (ICD-10-PCS; 2018-06-13)
PROC: 5A1935Z Respiratory Ventilation, Less than 24 Consecutive Hours (ICD-10-PCS; principal; 2018-06-14)
PROC: 0BH17EZ Insertion of Endotracheal Airway into Trachea, Via Natural or Artificial Opening (ICD-10-PCS; 2018-06-14)
DX: J96.01 Acute respiratory failure with hypoxia (principal); I31.3 Pericardial effusion (noninflammatory); C34.90 Malignant neoplasm of unspecified part of unspecified bronchus or lung; C79.9 Secondary malignant neoplasm of unspecified site; J96.02 Acute respiratory failure with hypercapnia; J44.9 Chronic obstructive pulmonary disease, unspecified; I50.9 Heart failure, unspecified; E78.5 Hyperlipidemia, unspecified; D63.0 Anemia in neoplastic disease; I25.10 Atherosclerotic heart disease of native coronary artery without angina pectoris; E03.9 Hypothyroidism, unspecified; I48.0 Paroxysmal atrial fibrillation; F32.9 Major depressive disorder, single episode, unspecified; R00.0 Tachycardia, unspecified; I95.9 Hypotension, unspecified; Z89.021 Acquired absence of right finger(s); Z90.49 Acquired absence of other specified parts of digestive tract; Z87.891 Personal history of nicotine dependence; Z86.718 Personal history of other venous thrombosis and embolism
CPT/HCPCS: 36600; 71045; 71275; 80048; 80061; 80076; 81001; 82803; 83690; 83880; 84443; 84484; 85025; 85610; 85730; 87070; 87400; 93005; 93306; 94640; 94644; 94660; 96374; 96375; J0692; J1650; J1940; J2270; J2405; J2930; J3480; J7040; Q9967